=== PATIENT | female | born 1950 | race Caucasian/White ===

== ENCOUNTER 2022-05-11 18:21 | Observation (INO) | payer MEDICARE, SELFPAY ==
[2022-05-11] VITALS (10 sets, daily range): BP systolic 138–175; BP diastolic 58–77; PULSE 64–90; RESP 13–23; TEMP 36.9; O2SAT 94–98; BMI 39.4
--- NOTE | 2022-05-11 18:29 | PC.NURSE ---
[facility] Medical records has been called to retrieve patient information from [facility]
--- NOTE | 2022-05-11 18:30 | PC.NURSE ---
obtained EKG and poc glucose
--- NOTE | 2022-05-11 18:31 | ECG_ITS ---
APPROVED REPORT Exam: Resting ECG HR:68 bpm ECG Measurements Heart Rate 68 AXES ME 193 P 50 QRSd 101 QRS 66 QT 393 T 70 QTc 409 Conclusion SINUS RHYTHM NORMAL ECG UNCONFIRMED REPORT Electronically signed by : Mumtaz Colon MD 05/12/2022 09:07:44
--- NOTE | 2022-05-11 18:31 | XR_ITS ---
PROCEDURE INFORMATION: Exam: XR Chest Exam date and time: 05/11/2022 6:47 PM Age: 71 years old Clinical indication: Pain; Other: Left sided numbness/n/v; Additional info: Lt side numbness TECHNIQUE: Imaging protocol: Radiologic exam of the chest. Views: 1 view. Portable AP upright exam 6:48 p.m. COMPARISON: No relevant prior studies available. FINDINGS: Tubes, catheters and devices: Overlying director of claims electrodes. Lungs: No acute pulmonary findings. No pulmonary consolidation. Lung volumes within normal limits. Suspect calcified bilateral perihilar granulomas, but these could be prominent dense vascular shadows. Pulmonary vessels do not appear significantly congested. Pleural spaces: Unremarkable. No significant pleural effusion. No pneumothorax. Heart/Mediastinum: Slightly enlarged cardiac silhouette, accentuated by portable AP technique. Bones/joints: There are spinal degenerative changes, with multilevel disc narrrowing and spondylosis. Shoulder and acromioclavicular arthritis. IMPRESSION: 1. No acute cardiopulmonary findings. 2. Non emergency and chronic findings as above.
--- NOTE | 2022-05-11 18:32 | CT_ITS ---
PROCEDURE INFORMATION: Exam: CT Head Without Contrast Exam date and time: 05/11/2022 7:16 PM Age: 71 years old Clinical indication: Pain; Headache; Additional info: Lt side numbness. Prior stroke 10 years ago TECHNIQUE: Imaging protocol: Computed tomography of the head without contrast. Radiation optimization: All CT scans at this facility use at least one of these dose optimization techniques: automated exposure control; mA and/or kV adjustment per patient size (includes targeted exams where dose is matched to clinical indication); or iterative reconstruction. COMPARISON: No relevant prior studies available. FINDINGS: Brain: A large chronic left MCA territory infarct involving temporal and parietal cortex and adjacent white matter with cystic encephalomalacia changes. No acute intracranial findings. No intracranial hemorrhage. No edema, swelling or mass-effect. Mild generalized cerebral cortical atrophy/volume loss. Cerebral ventricles: The ventricles are normal for age. No hydrocephalus. Minimal compensatory dilatation of the trigone of the left lateral ventricle due to the left cerebral infarct. Paranasal sinuses: No acute findings in the visualized sinuses. No significant sinus opacification or air-fluid levels. Minimal bilateral ethmoid and left maxillary mucosal thickening. Mastoid air cells: Mastoids are unremarkable as visualized, no effusions. Orbital cavities: No acute findings in the visualized orbits. Correlate for history of bilateral lens replacement surgeries. Bones/joints: No acute skull fracture. No lytic lesions. Prominent hyperostosis frontalis interna, a normal variant. Soft tissues: There are no soft tissue masses or fluid collections. Vasculature: There are atherosclerotic calcified plaques in the intracranial carotid and vertebral arteries. IMPRESSION: 1. No acute findings. 2. 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 3. There is no CT evidence of intracranial mass, intracranial hemorrhage, or acute infarct. 4. Additional nonemergency and chronic findings as above.
[2022-05-11 18:34] LABS: POC Glucose,Bedside 184 (70-110)
[2022-05-11 19:02] LABS: Basophils # 0.1 K/mm3 (0-0.2); Basophils % 1.1 % (0.1-2.0); Eosinophils # 0.1 K/mm3 (0.0-0.4); Eosinophils % 0.9 % (0.1-12.0); Hemoglobin 12.9 g/dL (12.2-16.2); Lymphocytes # 2.3 K/mm3 (0.7-4.5); Lymphocytes % 28.7 % (10-50); Mean Corpuscular HGB Conc 31.4 g/dL (31.8-35.4); Mean Corpuscular Hemoglobin 28.7 pg (27.0-31.2); Mean Corpuscular Volume 91.3 fl (81-99); Mean Platelet Volume 7.7 fl (7.4-10.4); Monocytes # 0.4 K/mm3 (0.1-1.0); Monocytes % 4.6 % (1.7-9.3); Neutrophils # 5.1 K/mm3 (1.8-7.8); Neutrophils % 64.8 % (37.0-80.0); Platelet Count 363 K/mm3 (142-424); Red Blood Count 4.49 M/mm3 (4.20-5.40); Red Cell Distribution Width 14.3 % (11.5-17.5); White Blood Count 7.9 K/mm3 (4.8-10.8)
--- NOTE | 2022-05-11 19:07 | CT_ITS ---
PROCEDURE INFORMATION: Exam: CTA Neck With Contrast Exam date and time: 05/11/2022 7:16 PM Age: 71 years old Clinical indication: Pain; Headache; Additional info: Lt side numbness. Prior stroke 10 years ago TECHNIQUE: Imaging protocol: Computed tomographic angiography of the neck with contrast. 3D rendering (Not supervised by radiologist): MIP and/or 3D reconstructed images were created by the technologist. Radiation optimization: All CT scans at this facility use at least one of these dose optimization techniques: automated exposure control; mA and/or kV adjustment per patient size (includes targeted exams where dose is matched to clinical indication); or iterative reconstruction. Contrast material: ISOVUE 370; Contrast volume: 100 ml; Contrast route: INTRAVENOUS (IV); COMPARISON: CR XR CHEST PORTABLE 05/11/2022 6:47 PM FINDINGS: Right common carotid artery: Dense calcified plaques in the carotid bulb, but narrowing of the bulb less than 50% by NASCET criteria. No dissection or occlusion. Right internal carotid artery: Moderate stenosis at the origin of the right internal carotid artery estimated 55-65%. No dissection or occlusion. Right external carotid artery: No occlusion . Moderately severe stenosis at the origin estimated 65-75%. Left common carotid artery: Very mild narrowing of the distal common carotid artery less than 50%. No dissection or occlusion. Left internal carotid artery: Short segment occlusion approximately 4-5 mm length just beyond the origin of the left internal carotid artery. Distal to this, there is patency/reconstitution with diffusely narrowed vessel/severe stenosis and trickle flow to the level of the skull base. Left external carotid artery: No occlusion or stenosis of the origin. Right vertebral artery: Large dominant right vertebral artery. No stenosis. No dissection or occlusion. 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 No high-grade focal stenosis. No dissection or occlusion. Thyroid: Heterogeneous thyroid with some calcifications and hypoattenuating nodules up to 1.7 cm series 3, image 33. Soft tissues: There are no soft tissue masses or fluid collections. Bones/joints: No acute fracture. Cervical spine degenerative changes, multilevel disc disease and spondylosis. Lungs: Calcified left pulmonary granuloma. Mild ground-glass opacities in the posterior lung apices, likely dependent atelectasis. No focal consolidation. IMPRESSION: 1. On the left, short segment occlusion of the proximal internal carotid artery, with reconstitution and trickle flow beyond this to the level of the head, diffuse severe ICA stenosis. There is mild narrowing of the common carotid artery. 2. On the right, mild stenosis of the carotid bulb, moderate stenosis of the origin of the right internal carotid artery, and moderately severe stenosis at the origin of the external carotid artery as detailed above. 3. Large dominant right vertebral artery is widely patent. 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 4. Heterogeneous thyroid with nodules up to 1.7 cm, and calcifications. Follow-up non-emergent thyroid ultrasound is recommended. COMMENTS: Consistent with the [employer]'s Incidental Findings Committee white paper (J Am Tamia Radiol 2015): In patients aged 35 years and older with an incidental thyroid nodule equal to or greater than 1.[address], MRI or extrathyroidal US, further evaluation with dedicated thyroid US is recommended for patients with no
--- NOTE | 2022-05-11 19:07 | CT_ITS ---
PROCEDURE INFORMATION: Exam: CTA Head With Contrast, Arteriography Exam date and time: 05/11/2022 7:16 PM Age: 71 years old Clinical indication: Pain; Headache; Additional info: Lt side numbness. Prior stroke 10 years ago TECHNIQUE: Imaging protocol: Computed tomographic angiography of the head with contrast. Exam focused on the arteries. 3D rendering (Not supervised by radiologist): MIP and/or 3D reconstructed images were created by the technologist. Radiation optimization: All CT scans at this facility use at least one of these dose optimization techniques: automated exposure control; mA and/or kV adjustment per patient size (includes targeted exams where dose is matched to clinical indication); or iterative reconstruction. Contrast material: ISOVUE 370; Contrast volume: 100 ml; Contrast route: INTRAVENOUS (IV); COMPARISON: No relevant prior studies available. FINDINGS: ANTERIOR CIRCULATION: Right internal carotid artery: Small calcified plaques in the internal carotid artery siphon. Very mild narrowing less than 50%. Intracranial segment is patent with no high-grade stenosis. No aneurysm. Right middle cerebral artery: There is mild narrowing of the proximal M1 segment less than 50% series 3 images 103, coronal series 5 images 54-55. No occlusion or high-grade stenosis. No aneurysm. Right anterior cerebral artery: No acute findings. No occlusion or significant stenosis. No aneurysm. 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 Left internal carotid artery: Diffusely narrowed left internal carotid artery from the skull base to the siphon, trickle flow/severe stenosis through petrous segments and proximal siphon, mild to moderate narrowing at the distal siphon. No occlusion in the head. No aneurysm. Left middle cerebral artery: Unremarkable M1 and M2 segments. No occlusion or significant stenosis. No aneurysm. Diminished peripheral enhancement in the area of a chronic left temporal-parietal infarct. Left anterior cerebral artery: A diffusely small A1 segment, which may be developmental hypoplasia or chronic long segment stenosis. 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 No occlusion or focal high-grade stenosis. No aneurysm. POSTERIOR CIRCULATION: Right vertebral artery: Large dominant right vertebral artery. No occlusion or significant stenosis. No aneurysm. Left vertebral artery: Small left vertebral artery, likely developmentally hypoplastic. No occlusion or significant focal stenosis. No aneurysm. Basilar artery: Unremarkable. No occlusion or significant stenosis. No aneurysm. Right posterior cerebral artery: Unremarkable. No occlusion or significant stenosis. No aneurysm. Left posterior cerebral artery: Unremarkable. No occlusion or significant stenosis. No aneurysm. Brain: No definite mass, mass effect, or midline shift. Large chronic left temporo parietal MCA territory infarct with encephalomalacia, see the earlier head CT report. Cerebral ventricles: No significant ventriculomegaly. Minimal compensatory dilatation of the left lateral ventricle. Bones/joints: Hyperostosis frontalis interna a normal variant. No acute fracture. Soft tissues: Unremarkable.
[2022-05-11 19:09] LABS: Alanine Aminotransferase 25 U/L (12-78); Albumin/Globulin Ratio 1.4 (1.1-1.8); Alkaline Phosphatase 76 U/L (38-126); Anion Gap 9.1 mEq/L (5-15); Aspartate Amino Transferase 40 U/L (14-36); Blood Urea Nitrogen 21 mg/dl (7-17); Calcium 9.7 mg/dl (8.4-10.2); Carbon Dioxide 29 mmol/L (22.0-30.0); Chloride 105 mmol/L (98-107); Creatinine Clearance Estimated 84 mL/min (50-200); Estimated Glomerular Filt Rate 62 ml/min (>60); GFR (African American) 74 ML/MIN (>60); Globulin 2.9 g/dL (1.3-3.2); Glucose 184 mg/dl (74-100); Potassium 4.1 mmoL/L (3.5-5.1); Sodium 139 mmol/L (136-145); Total Protein,Serum 6.9 g/dl (6.3-8.2)
[2022-05-11 19:11] LABS: Bilirubin,Total < 0.1 mg/dl (0.2-1.3)
[2022-05-11 19:24] LABS: Troponin I < 0.01 ng/ml (0.00-0.034)
--- NOTE | 2022-05-11 20:55 | HMH.EDGENADL ---
ED Disposition Clinical Impression: Numbness and tingling of left leg Disposition: Admitted as Observation Condition on Discharge: Fair - Critical Care Critical Care Time: No Attestation: On 05/11/22, the high probability of a clinically significant, sudden or life threatening deterioration of the following system(s) required my full and direct attention, intervention and personal management. The time I documented below is in addition to time spent performing reported procedures but includes the following listed in this critical care notation. Medical Decision Making - Medical Records Medical records reviewed: Yes: I reviewed the patient's medical records. - Theo Inquiry Pt receiving controlled substance: No Vital Signs: 05/11/22 18:24 05/11/22 20:10 05/11/22 20:15 Temperature 98.4 F Temperature Source Oral Pulse Rate 83 78 Pulse Rate [Radial] 77 Respiratory Rate 16 16 Blood Pressure 148/58 H 141/65 H Blood Pressure [Right Arm] 162/63 H Blood Pressure Mean 88 Blood Pressure Mean [Right Arm] 96 Blood Pressure Source Automatic Cuff Blood Pressure Position Supine Blood Pressure Position [Right Arm] Sitting 02 Sat by Pulse Oximetry 98 94 L 98 Oxygen Delivery Method Room Air Room Air Room Air 05/11/22 20:30 05/11/22 21:15 05/11/22 21:30 Temperature Temperature Source Pulse Rate 76 89 64 Pulse Rate [Radial] Respiratory Rate 19 21 Blood Pressure 141/64 H 175/77 H 170/68 H Blood Pressure [Right Arm] Blood Pressure Mean 91 Blood Pressure Mean [Right Arm] Blood Pressure Source Automatic Cuff Blood Pressure Position Sitting Blood Pressure Position [Right Arm] 02 Sat by Pulse Oximetry 95 97 94 L Oxygen Delivery Method Room Air 05/11/22 22:00 05/11/22 22:30 05/11/22 23:00 Temperature Temperature Source Pulse Rate 76 65 68 Pulse Rate [Radial] Respiratory Rate 23 13 17 Blood Pressure 140/62 138/60 Blood Pressure [Right Arm] Blood Pressure Mean Blood Pressure Mean [Right Arm] Blood Pressure Source Blood Pressure Position Blood Pressure Position [Right Arm] 02 Sat by Pulse Oximetry 95 96 98 Oxygen Delivery Method Room Air Room Air Room Air 05/11/22 23:30 05/12/22 00:00 05/12/22 00:30 Temperature Temperature Source Pulse Rate 72 72 64 Pulse Rate [Radial] Respiratory Rate 19 23 12 Blood Pressure 160/65 H 169/69 H 168/67 H Blood Pressure [Right Arm] Blood Pressure Mean Blood Pressure Mean [Right Arm] Blood Pressure Source Blood Pressure Position Blood Pressure Position [Right Arm] 02 Sat by Pulse Oximetry 97 95 96 Oxygen Delivery Method Room Air Room Air Room Air - Lab Data Lab results reviewed: Yes: I reviewed the patient's lab results. Lab Results 05/11/22 18:26: POC Glucose 184 H 05/11/22 18:50: WBC 7.9, RBC 4.49, Hgb 12.9, Hct 41.0, MCV 91.3, MCH 28.7, MCHC 31.4 L, RDW 14.3, Plt Count 363, MPV 7.7, Neut % (Auto) 64.8, Lymph % (Auto) 28.7, Cowley % (Auto) 4.6, Eos % (Auto) 0.9, Baso % (Auto) 1.1, Neut # (Auto) 5.1, Lymph # (Auto) 2.3, Cowley # (Auto) 0.4, Eos # (Auto) 0.1, Baso # (Auto) 0.1 05/11/22 18:50: Sodium 139, Potassium 4.1, Chloride 105, Carbon Dioxide 29, Anion Gap 9.1, BUN 21 H, Creatinine 0.90, Estimated Creat Clear 84, Estimated GFR 62, Est GFR ( Amer) 74, Glucose 184 H, Calcium 9.7, Total Bilirubin < 0.1 L, AST 40 H, ALT 25, Alkaline Phosphatase 76, Troponin I < 0.01, Total Protein 6.9, Albumin 4.0, Globulin 2.9, Albumin/Globulin Ratio 1.4 05/11/22 22:00: Troponin I < 0.01 Result diagrams: 05/11/22 18:50 05/11/22 18:50 Orders (Tests/Meds): ED MEDICATIONS Generic Name Dose Route Start Last Admin Trade Name Freq PRN Reason Stop Dose Admin Acetaminophen 650 mg 05/12/22 00:47 Acetaminophen 325mg Tab PO 06/11/22 00:30 Q4HP PRN Fever or Mild Pain Hydrocodone Bitart/Acetaminophen 1 tab 05/12/22 09:00 Hydrocodone 10mg/Apap 325mg Tab PO
--- NOTE | 2022-05-11 21:05 | PC.NURSE ---
PATIENT ASSISTED BACK TO BED. C/O THAT B/P CUFF WAS TO TIGHT AND HURTING HER ARM. PATIENT REMOVED CUFF.
--- NOTE | 2022-05-11 21:07 | PC.NURSE ---
PATIENT ASSISTED TO BEDSIDE COMMODE. GAIT UNSTEADY. AT BEDSIDE.
--- NOTE | 2022-05-11 21:20 | PC.NURSE ---
PATIENT YELLING OUT CRYING ABOUT BP NOT TAKING, WORRIED THAT BLOOD PRESSURE WAS HIGH. CUFF CHANGED AND APPLIED TO LEFT LOWER ARM. PATIENT REPORTS THAT SHE KNEW ER WAS BUSY BUT SHE WAS A PATIENT ALSO.
--- NOTE | 2022-05-11 21:28 | PC.NURSE ---
PATIENT RINGING CALL QIU REQUESTED WASHCLOTH TO WASH HANDS.
--- NOTE | 2022-05-11 22:01 | PC.NURSE ---
repeat troponin drawn and sent to lab by London Du RN
--- NOTE | 2022-05-11 22:03 | PC.NURSE ---
SECOND TROP DRAWN FROM LEFT FOREARM. CUP OF ICE GIVEN.
[2022-05-11 22:31] LABS: Troponin I < 0.01 ng/ml (0.00-0.034)
--- NOTE | 2022-05-11 22:47 | PC.NURSE ---
PATIENT ASSISTED TO BSC PER Rob DELGADO AND Abiodun EAST.
--- NOTE | 2022-05-11 22:49 | PC.NURSE ---
Patient assisted to bedside commode and assisted back to bed.
[2022-05-12] VITALS: BP 169/69; PULSE 72; RESP 23; O2SAT 95
--- NOTE | 2022-05-12 00:25 | PC.NURSE ---
Dr. Monterroso paged re: admission
--- NOTE | 2022-05-12 00:29 | PC.NURSE ---
PATIENT ADMITTED TO [address] JENNIFER FRANCE WITH DX OF LEFT LOWER EXTREMITY WEAKNESS, GAIT INSTABILITY.
[2022-05-12 00:30] VITALS: BP 168/67; PULSE 64; RESP 12; O2SAT 96
--- NOTE | 2022-05-12 01:08 | PC.NURSE ---
patient up to floor via wheelchair @ this time.
[2022-05-12 01:16] VITALS: BP 165/67; PULSE 64; RESP 18; TEMP 36.8; O2SAT 99
[2022-05-12 01:23] VITALS: BP 178/82; PULSE 63; RESP 20; TEMP 36.7; O2SAT 98; BMI 41.0
[2022-05-12 01:36] LABS: Coronavirus 19, PCR Not Detected (NotDetected); Influenza A, PCR Not Detected (NotDetected); Influenza B, PCR Not Detected (NotDetected)
[2022-05-12 04:00] VITALS: BP 158/71; PULSE 74; RESP 20; TEMP 36.5; O2SAT 96
--- NOTE | 2022-05-12 04:48 | PC.NURSE ---
Pt rested intermittently t/o shift. Pt is A/O x3. Lungs are CTA. x2 assist for transfer to BS and pt tolerates well. Pt reports weakness to left side, on assessment float remover strength remains equal on both sides, and strength in legs remains equal. Pt reported pain in head/neck, administered meds per MAR. Pt has scattered bruising on right arm, pt states it was from [facility] starting IV's friday night. Bed alarm on for safety.
[2022-05-12 04:56] VITALS: BMI 41.1
[2022-05-12 08:00] VITALS: BP 107/60; PULSE 65; RESP 20; TEMP 36.9; O2SAT 96
--- NOTE | 2022-05-12 08:48 | HMH.HPDC ---
General - General Admission date:: 05/12/22 Discharge date: 05/12/22 *Admission Date: 05/11/22 *Chief complaint: Nonambulatory status and left side tingling *History of present illness: General Adult HPI - General Chief complaint: Nausea/Vomiting/Diarrhea Stated complaint: headache Time Seen by Provider: 05/11/22 20:00 Mode of Arrival: Family Vehicle Limitations: No Limitations Description of Symptoms (Recalled from ER Triage Doc. by RN): to ed per pvt car with c/o lt side numbness from my neck down to my foot c/o nausea, vomiting. pt states seen yesterday at [facility] due to lt side jerking was d/mariely home and once home started with lt arm numbness and is progressively getting worse. pt denies weakness, slurred speech, no facial droop noted. pt keeps saying my can tell you everything, I wish he would have told you everything. I can't believe he didn't tell you this . pt needed assist of 2 to help get her onto stretcher from wheelchair. - History of Present Illness HPI narrative: Patient is a 71-year-old female with a past medical history of left-sided CVA. She reports that yesterday she was seen at [facility] for shaking of her left side. She says that she was subsequently discharged and following that she went home and felt okay for little while until she started to get numbness in her entire left side. She says that it is from her head all the way down the bottom of her foot. She is also says that she has had difficulty ambulating since then. She denies any weakness but just says that she feels like she cannot feel the bottom of her foot. She is also been a little nauseous and had vomited a couple times. She normally uses a Rollator to get around but is needing assistance even with a walker. She denies any dysarthria. In review this is a 71-year-old female who presents with numbness. Hemodynamically stable and nontoxic-appearing. Initial NIH is 1 for numbness otherwise her neuro exam is only remarkable for proprioceptive changes in both of her lower extremities. Due to her symptoms and history likely needs imaging in order to evaluate for any intracranial changes. Her laboratory studies were largely unremarkable with no findings for the cause of her symptoms. Her CT scans showed stable left-sided encephalomalacia which does not explain her symptoms. Her CTAs of her head and neck show diffuse stenosis as well as a occlusion of the ICA which was already known about. I wonder if some of her symptoms are possibly dehydration mediated with her stenosis and could be exacerbating some previous areas of ischemia. She does have follow-up with both her PCP and her neurology team but when I ambulate the patient she is very unsteady on her feet and I wonder if she is can be high risk going home with an inability to really walk and is a high fall risk. With her proprioceptive changes likely needs PT OT as well. Talk to the hospital team who agreed to take her into the hospital for further evaluation. Above note per ER physician. Patient was admitted to observation and I evaluated her in the hospital this morning. [facility] History I have reviewed the patient's past medical history: Yes Medical History: Reports:: Anxiety, Diabetes Mellitus Type 2, Hyperlipidemia, Hypertension Denies:: Cancer, Diabetes Mellitus Type 1, MRSA *Have you ever received a pneumonia vaccine?: Yes *Have you received a flu vaccine this season?: No Other Medical History: Reports: Arthritis Comment:: Chronic lumbar pain, chronic opiate therapy, follows with pain clinic in [place] Laterality Cases: Left: Total Hip Replacement, Bilateral: Arthroscopy Shoulder, Tonsillectomy Other Surgeries: Yes: Appendectomy, Cholecystectomy, Colonoscopy, EGD Amputation: No Fractures: No - *Social History Smoking Status: Former smoker Alcohol Intake: never *Occupational Status:: retired Housing: house Household Members: spouse *Travel in the last 8 weeks: None Family Hx:: N
[2022-05-12 09:07] LABS: Magnesium 1.9 mg/dl (1.6-2.3)
--- NOTE | 2022-05-12 09:31 | HMH.PHAINT ---
PER NASRIN CARRASQUILLO RN, DR FRANCE VERBALIZED TO HER THAT ALL HOME MEDS ARE TO BE CONTINUED IS, NOTHING NEW WILL BE PRESCRIBED OR CHANGED.
[2022-05-12 09:38] LABS: Thyroid Stimulating Hormone 0.84 uIU/mL (0.465-4.68)
--- NOTE | 2022-05-12 14:32 | PC.NURSE ---
patient discharged late waiting to be picked-up
--- NOTE | 2022-05-13 15:39 | CARE MANAGER ---
Spoke with patient's . He states the patient is about the same. She has an appointment in the morning with Dr. Colon. They deny questions or concerns.
== END 2022-05-12 12:12 | disposition home or self-care (01) ==
LOC: ER 18:29 → 2ND 05-12 01:58
PROVIDERS: Student in an Organized Health Care Education/Training Program; Admitting Provider Family Medicine; Emergency Provider Emergency Medicine; PCP Internal Medicine Adolescent Medicine; Visit Provider Internal Medicine Adolescent Medicine
DX: R26.81 Unsteadiness on feet (principal); E11.9 Type 2 diabetes mellitus without complications; Z79.4 Long term (current) use of insulin; Z79.02 Long term (current) use of antithrombotics/antiplatelets; I10 Essential (primary) hypertension; E78.5 Hyperlipidemia, unspecified; Z87.891 Personal history of nicotine dependence; Z20.822 Contact with and (suspected) exposure to COVID-19; I69.354 Hemiplegia and hemiparesis following cerebral infarction affecting left non-dominant side; I65.23 Occlusion and stenosis of bilateral carotid arteries
CPT/HCPCS: G0378; 70450; 70496; 70498; 71045; 80053; 82962; 83735; 84443; 84484; 85025; 93005; 99285; C9803; J2405; Q9967; U0003; U0005

== ENCOUNTER → 2022-08-07 15:02 | Outpatient (CLI) | payer MEDICARE, SELFPAY | PROVIDERS: PCP Internal Medicine Adolescent Medicine; Visit Provider Internal Medicine Adolescent Medicine | DX: G47.30 Sleep apnea, unspecified (principal); I10 Essential (primary) hypertension; R06.83 Snoring; E66.9 Obesity, unspecified | CPT/HCPCS: G0399 ==

== ENCOUNTER → 2023-07-16 16:47 | Outpatient (CLI) | payer MEDICARE, SELFPAY ==
[2023-07-16 17:29] LABS: Basophils # 0.1 K/mm3 (0-0.2); Basophils % 0.6 % (0.1-2.0); Eosinophils # 0.2 K/mm3 (0.0-0.4); Eosinophils % 1.6 % (0.1-12.0); Hematocrit 38.3 % (37.0-47.0); Hemoglobin 12.7 g/dL (12.2-16.2); Lymphocytes % 32.1 % (10-50); Mean Corpuscular HGB Conc 33.3 g/dL (31.8-35.4); Mean Corpuscular Hemoglobin 30.5 pg (27.0-31.2); Mean Corpuscular Volume 91.6 fl (81-99); Mean Platelet Volume 7.8 fl (7.4-10.4); Monocytes # 0.6 K/mm3 (0.1-1.0); Monocytes % 6.2 % (1.7-9.3); Neutrophils # 5.6 K/mm3 (1.8-7.8); Neutrophils % 59.5 % (37.0-80.0); Platelet Count 339 K/mm3 (142-424); Red Blood Count 4.18 M/mm3 (4.20-5.40); Red Cell Distribution Width 14.1 % (11.5-17.5); White Blood Count 9.4 K/mm3 (4.8-10.8)
[2023-07-16 18:24] LABS: Anion Gap 15.6 mEq/L (5-15); Blood Urea Nitrogen 31 mg/dl (7-17); Calcium 9.7 mg/dl (8.4-10.2); Carbon Dioxide 28 mmol/L (22.0-30.0); Chloride 100 mmol/L (98-107); Estimated Glomerular Filt Rate 32 ml/min (>60); GFR (African American) 38 ML/MIN (>60); Glucose 334 mg/dl (74-100); Potassium 5.6 mmoL/L (3.5-5.1); Sodium 138 mmol/L (136-145)
== END ==
PROVIDERS: PCP Internal Medicine Adolescent Medicine; Visit Provider Internal Medicine Adolescent Medicine
DX: E78.5 Hyperlipidemia, unspecified (principal)
CPT/HCPCS: 80048; 85025

== ENCOUNTER 2025-07-29 11:49 | Outpatient (CLI) | payer MEDICARE, SELFPAY ==
--- OUTSIDE RECORDS SUMMARY | 2025-07-29 11:51 | XMS_ITS | Encounter Summary ---
Author Organization [employer] ([place], [place], [place], [place]) Address [address] [place] [address] Care Team Providers Care Community Health Education Coordinator Name Role Phone Unavailable Primary Care Provider Unavailabl e Encounter Details Date Type Department Care Team (Late st Contact Info) Description 07/21/2019 Transcribed Document [facility] [place] [address] [place] [address] ProviderChano MD [address], [place] [id number] Social History Tobacco Use Types Packs/Day Years Used Date Smoking Tobacco: Never Assessed Comments Unknown Sex and Gender Information Value Date Recorded Sex Assigned at Not on file Legal Sex Female 2:07 PM CDT Gender Identity Not on file Sexual Orientation Not on file documented as of this encounter Miscellaneous Notes * Cerner Conversion Note - Chano Gatica MD - 07/21/2019 1:54 PM CDT Patient: LUDY ANTONIO Age: 68 years Sex: Female : 1950 Associated Diagnoses: None Author: TAIWO JAMA MD-INF ID Consultation/Initial Hospital Visit Referring MD: Sharif Dejesus MD Evaluating MD: Taiwo Jama MD Date of admission: 07/08/2019 Date of consultation: 07/09/2019 Reason for consultation: Discitis Chief complaint: Back pain Current antimicrobial therapy: Ancef 2 g IV HPI: Miss Ludy Antonio is a 68-year-old female being seen for back pain. She is a past medical history significant for hypertension, diabetes mellitus type 2, obesity, dyslipidemia, history of CVA and completely occluded left carotid currently on Plavix. She has had a recent back surgery with Dr. Lucas who she has visited with this past Friday. Back pain has been progressively worsening despite the use of oxycodone that she takes every day. She states the pain is on the right side in the lower back region. She also endorses increasing incontinence but this symptom was present prior to her back surgery. She denies any headaches, fevers or chills as well as denying diarrhea or vomiting. Since admission patient has been afebrile with some hypertension noted. BUN/creatinine are 19 and 1.1, GFR is 49, white blood cell count is 7.9 with a neutrophil of 49.2%, platelet count 267. UA is positive for leukocytes, 5-10 white blood cells, and 10 squamous cells 2-5 transitional epithelial cells. Urine culture was positive for 10???[id number] CFU/mL. CT of the L-spine was negative. No listed allergies to antibiotics. She is currently receiving Ancef 2 g IV therapy and ID has been counseled for further evaluation and treatment as well as antimicrobial therapy management. seen and agree no Hx at this point as in RR 07/10/19 - co fever I want to go home, why am I here ? denies fever or confusion. ROS and hx discussed with [id number], has had ceofusion and fever last 2 weeks. 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 They note she seems better on antibiotics 07/13 - hx limited ROS and status discussed with multiple family members 07/14 - co Hx and ROS not avaialbe discussed with staff in room 07/15 - Nohx avaialble Events discussed with family no fever or rash 07/20 - co weakness I want to go home no fever or rash Hx suspect 07/21 - NoHx avaialble Family notes she is no better Allergies:Allergies (1) Active Reaction Avandia CHF Medications:Medications by Classification Anticoagulant enoxaparin (Lovenox) - 40 mg, SubCutaneous, Inj, Daily, Routine Cardiovascular metoprolol (metoprolol tartrate) - 12.5 mg, Oral, Tab, BID, Routine lisinopril - 20 mg, Oral, Tab, At Bedtime, Routine Respiratory albuterol-ipratropium (DuoNeb 0.5 mg-2.5 mg/3 mL inhalation - 3 mL, Nebulized Inhalation, Inh, RT_Q6H, PRN for Shortness of Breath, Routine loratadine - 10 mg, Oral, Tab, At Bedtime, Routine GI ondansetron (Zofran) - 4 mg, IV Push, Inj, Q4H, PRN for Nausea, Routine famotidine - 20 mg, Oral, Tab, BID, Routine polyethylene glycol 3350 (MiraLax) - 17 Gram, Oral, Powder, Daily, PRN for Constipation, Routine Endocrine insulin glargine (Lantus) - 25 Units, SubCutaneous, Inj, BID, Routine insulin lispro - 8 Units, SubCutaneous, Inj, TID With Meals, Routine insulin lispro (insulin lispro sliding scale) - Scale D, SubCutaneous, Inj, AC and at Bedtime, Routine Neuro divalproex sodium (Depakote) - 250 mg, Oral, EC Tab, BID, Routine gabapentin - 300 mg, Oral, Cap, QPM, Routine Psych DULoxetine (Cymbalta) - 60 mg, Oral, Cap, At Bedtime, Routine QUEtiapine (SEROquel) - 6.25 mg, Oral, Tab, BID, Routine haloperidol (Haldol) - 2 mg, IV Push, Inj, Q8H, PRN for Agitation, Routine HEENT fluticasone nasal (Flonase) - 1 Puff, Nasal, [place], Daily, Routine miconazole topical (Desenex AF 2% topical powder) - 1 Application, Topical, Powder, Q12H Pain Meds morphine - 2 mg, IV Push, Inj, Q2H, PRN for Pain (Severe 7-10), Routine oxyCODONE - 10 mg, Oral, Tab, Q6H, PRN for Pain (Moderate 4-6), Routine acetaminophen (Tylenol) - 650 mg, Oral, Tab, Q4H, PRN for Pain (Mild 1-3), Routine Sedatives diazePAM (Valium) - 5 mg, Oral, Tab, Q6H, PRN for Spasms, Routine Topical lidocaine topical (Lidoderm 5% topical film) - 3 Patch, TransDermal, Patch, Daily, Routine Undefined Medications Magic Mouthwash - 5 mL, Oral, Liquid, Q6H, Routine Past Medical History: Active Problems (24) Acid reflux Allergic asthma Arthritis At risk for sleep apnea Back pain BP+ - Hypertension Cataract///beginning stage Chest pain///cath negative Colon polyps Completely occulded L carotid Congestive heart failure - due to Avandia resolved DM - Diabetes mellitus Dyslipidemia Fibromyalgia H/O ischemic left MCA stroke Hiatal hernia Lumbar disc disease Memory deficit///slow recall Numbness and tingling//right leg Obesity Pain//chronic Right leg pain Sleep apnea///risk Wears glasses Past Surgical History: Left hip replacement, right and left shoulder repair, Achilles repair, appendectomy, cholecystectomy, tonsillectomy, microdiscectomy as outlined above, cardiac catheterization in 2013. Family History: Reviewed, noncontributory. Social History: Denies EtOH and illicit drug use Prior smoker Is retired lives with spouse at home Review of Systems: not available 12 systems - see above Physical Examination: Vitals Signs (last 24 hrs) Last Charted Minimum Maximum Temp 97.5 (JUL 21 05:43) 97.5 (JUL 21 05:43) 98 (JUL 20:) Apical HR 61 (JUL 21 10:17) 61 (JUL 21 10:17) 75 (JUL 20 22:36) Mon HR 61 (JUL 21 05:43) 61 (JUL 21 05:43) 81 (JUL 20 18:34) Resp Rate 14 (JUL 21 05:00) 14 (JUL 21 05:00) 17 (JUL 20 16:) SBP 125 (JUL 21 05:43) 109 (JUL 20 16:19) 125 (JUL 21 05:43) DBP L 47 (JUL 21 05:43) L 44 (JUL 20:) 60 (JUL 20 18:34) MAP 89 (JUL 21 05:43) 57 (JUL 20 16:19) 89 (JUL 21 05:43) SpO2 100 (JUL 20 21:33) 98 (JUL 20:) 100 (JUL 20 18:34) Exam: Gen: Alert, cooperative, less confused HEENT: sclera OK NECK: Supple, no masses LYMPH: No cervical lymph nodes RESP: CTA bilaterally without rhonchi, rales, or wheezes. Nonlabored breathing CV: RRR, no murmurs, gallops, or rubs. No edema GI: soft, nontender, nondistended, : No garcia in place MS: no rash SKIN: No lesions NEURO: less interactive PSYCH: anxious Labs:Labs (Last four charted values) WBC 8.4 (OCT 16) 7.2 (OCT 13) 8.4 (OCT 07) 8.2 (OCT 06) HB 11.6 (OCT 16) 11.3 (OCT 13) 11.5 (OCT 07) 11.5 (OCT 06) HCT 37.0 (OCT 16) 35.4 (OCT 13) 35.7 (OCT 07) 35.6 (OCT 06) Plt 273 (OCT 16) 277 (OCT 13) 263 (OCT 07) 230 (OCT 06) Na 141 (OCT 16) 143 (OCT 13) 142 (OCT 07) 140 (OCT 06) K 3.7 (OCT 16) 4.1 (OCT 13) 3.8 (OCT 07) 4.2 (OCT 06) Cl 107 (OCT 16) 106 (OCT 13) 104 (OCT 07) 104 (OCT 06) CO2 29 (OCT 16) 30 (OCT 13) 31 (JUL 07) 31 (JUL 06) BUN H 27 (JUL 16) H 23 (JUL 13) 14 (OCT 07) 14 (OCT 06) Cr 1.00 (OCT 16) 1.00 (OCT 13) 0.90 (OCT 07) 0.90 (OCT 06) Glu R H 134 (JUL 16) H 213 (JUL 13) H 202 (JUL 07) H 248 (OCT 06) Ca 9.1 (OCT 16) 9.4 (OCT 13) 9.0 (OCT 07) 9.0 (OCT 06) PT 9.9 (JUL 04) 10.1 (JUL 03) INR 0.9 (JUL 04) 0.9 (JUL 03) PTT 28.0 (JUL 03) AST 15 (OCT 16) 18 (OCT 07) 16 (OCT 04) 17 (OCT 03) ALT 24 (OCT 16) 25 (JUL 07) 23 (OCT 04) 21 (OCT 03) ALK P 56 (OCT 16) 56 (OCT 07) 69 (OCT 04) 63 (OCT 03) T Bili 0.3 (OCT 16) 0.3 (OCT 07) 0.3 (OCT 04) 0.4 (OCT 03) PTN L 6.2 (JUL 16) 6.7 (OCT 07) 7.1 (OCT 04) 7.0 (OCT 03) ALB L 2.7 (OCT 16) L 2.8 (JUL 12) L 3.1 (JUL 09) L 3.2 (JUL 08) Micro: Rad:No Radiology Results Found IMPRESSION: - Lumbar surgery 04/05/19 - Increasing back pain - elevated ESR - DM II - affects healing and immunity - Carotid occlusion - left side - on anticoagulation - acute delirium - Positive Chromium level - low (negative cobalt) watch off antibiotics Follow cultures Follow labs check some esoteric labs - sprue screen negative. cobalt negative, low positive chromium Doubt her mental status issues from infection -stop antibiotics and watch Looks about the same At some point would get Ortho opinion about the + level but doubt that's the culprit - discussed with family UM discussed with KHARI Estes labs seen Electronically signed by Julian Wheeler [employer] Truck Driver Cerner at 01/23/2023 1:39 PM CDT documented in this encounter Plan of Treatment Not on file documented as of this encounter Visit Diagnoses Not on filedocumented in this encounter
--- OUTSIDE RECORDS SUMMARY | 2025-07-29 11:51 | XMS_ITS | Encounter Summary ---
Author Organization [employer] ([place], [place], [place], [place]) Address [address] [place] [address] Care Team Providers Care Security Professional Name Role Phone Unavailable Primary Care Provider Unavailabl e Encounter Details Date Type Department Care Team (Late st Contact Info) Description 04/06/2019 Transcribed Document [facility] [place] [facility] [place] [address] Chano Gatica MD [address], [place] [id number] Social History Tobacco Use Types Packs/Day Years Used Date Smoking Tobacco: Never Assessed Comments Unknown Sex and Gender Information Value Date Recorded Sex Assigned at Not on file Legal Sex Female 2:07 PM CDT Gender Identity Not on file Sexual Orientation Not on file documented as of this encounter Miscellaneous Notes * Cerner Conversion Note - Chano Gatica MD - 04/06/2019 8:28 AM CDT DATE OF PROCEDURE:04/05/2019 NEUROSURGERY OPERATIVE REPORT SURGEON: Thom Lucas M.D. PRODUCT SAFETY COORDINATOR: Ronel Michel PA-C. Scrubbed, present, assisted including closure of the wound. PREOPERATIVE DIAGNOSIS(ES): 1. Right lumbar radiculopathy. 2. Lumbar spondylosis and disk bulge. POSTOPERATIVE DIAGNOSIS(ES): 1. Right lumbar radiculopathy. 2. Lumbar spondylosis and disk bulge. PROCEDURE: Right L3-4 minimally invasive surgery microdiscectomy with laminotomy. ANESTHESIA: General endotracheal anesthesia. ESTIMATED BLOOD LOSS: 30 mL. COMPLICATIONS: None. BRIEF HISTORY: Ms. Savage is a 68-year-old. She suffers from chronic pain. She presented to our clinic with back pain, but also right leg symptoms. There was some nondermatomal description, but also some radicular components and sciatic-like description of the pain. An MRI showed recess stenosis on the right at L3-4. Ultimately, she has undergone multiple different conservative measures without success. We felt, based on those findings on the MRI, there was reasonable to proceed with a lumbar discectomy to alleviate the right leg symptoms or at least reduce them. We discussed the expectations of the surgery, postoperative course, risks and benefits. All questions were answered. She agreed and wanted to proceed with the operation. OPERATIVE DETAILS: The patient was intubated without incident. Flipped from the supine to the prone position onto the operating table. The pressure points were identified and padded. Lumbar spine was prepped and draped in the standard fashion. Time-out confirmed the patient and operative site. Preoperative antibiotics were given. A right paramedian incision was localized with C-arm fluoroscopy and spinal needle. Incision performed with a 15 blade knife. Continued cautery dissection through the subcu fat and lumbar fascia. The METRx dilators were docked over the inferior portion of the L3 lamina. A 7 cm x 18 mm tube was secured into place. The operative microscope was brought into the field. The periosteal dissection was completed exposing the lamina. Laminotomy was now performed with the Midas drill. The ligament was mobilized and removed. Partial removal of the medial facet was necessary for access to the recess. The thecal sac was identified. The traversing nerve root was retracted medially. An annulotomy was performed. Subannular fragments were removed within the recess and some more paracentral regions. Then a foraminotomy was performed over the L4 nerve root. The recess was thoroughly decompressed. At this point, a hook could be swept underneath the nerve root and appeared to be adequately relieved of any continuous pressure. The wound was copiously irrigated. 10 mg of Kenalog placed in the epidural space. The muscle was injected with 0.25% Marcaine. The fascia and subcuticular layers were closed separately. Steri-Strips were placed over the skin edges. Dressing was placed over the wound. Patient flipped from prone to supine position, extubated without incident, left the OR in stable condition. Thom Lucas MD Dict: 04/06/2019 08:28:36 Trans: 04/06/2019 11:43:46 CC1: Thom Lucas MD Electronically signed by Julian Wheeler Conversion Pulmonary Disease Specialist Cerner at 01/23/2023 1:28 PM CDT documented in this encounter Plan of Treatment Not on file documented as of this encounter Visit Diagnoses Not on filedocumented in this encounter
--- OUTSIDE RECORDS SUMMARY | 2025-07-29 11:51 | XMS_ITS | Encounter Summary ---
Author Organization [employer] ([place], [place], [place], [place]) Address [address] [place] [address] Care Team Providers Care Senior Stock Plan Administrator Name Role Phone Unavailable Primary Care Provider Unavailabl e Encounter Details Date Type Department Care Team (Late st Contact Info) Description 04/06/2019 Transcribed Document [facility] [place] [address] [place] [address] ProviderChano MD [address], [place] [id number] Social History Tobacco Use Types Packs/Day Years Used Date Smoking Tobacco: Never Assessed Comments Unknown Sex and Gender Information Value Date Recorded Sex Assigned at Not on file Legal Sex Female 2:07 PM CDT Gender Identity Not on file Sexual Orientation Not on file documented as of this encounter Miscellaneous Notes * Cerner Conversion Note - Chano ProviderMD - 04/06/2019 10:28 AM CDT UM Authorization Entered On: 04/06/2019 10:29 EDT Performed On: 04/06/2019 10:28 EDT by Mary Jackson Rn-Utilization Review Primary Insurance Authorization Authorization and Policy Numbers : Insurance 1 Health Plan: [employer] H[employer] Policy Number: [id number] Authorization Number: [id number] Insurance Primary Name : [employer] [id number] Authorization Fax Number-Primary : [phone] Auth/Referral Phone Number-Primary : [phone] ext [phone] Auth/Referral Contact Name-Primary : Sauol Hanks Authorized Service Begin Date-Primary : 04/05/2019 EDT Authorized Service End Date-Primary : 04/05/2019 EDT Observation Authorization Nbr-Primary : [id number] Historical Authorization Comments-Primary : Comment 1: per [employer] O[employer] auth# [id number] (ROSEY SANTILLAN, Manufacturers Service Representative 04/06/2019 09:49) Mary Jackson Rn-Utilization Review - 04/06/2019 10:28 EDT Electronically signed by [facility] Conversion Human Resources Coordinator Cerner at 01/23/2023 1:14 PM CDT documented in this encounter Plan of Treatment Not on file documented as of this encounter Visit Diagnoses Not on filedocumented in this encounter
--- OUTSIDE RECORDS SUMMARY | 2025-07-29 11:51 | XMS_ITS | Encounter Summary ---
Author Organization [employer] ([place], [place], [place], [place]) Address [address] [place] [address] Care Team Providers Care Trip Follower Name Role Phone Unavailable Primary Care Provider Unavailabl e Encounter Details Date Type Department Care Team (Late st Contact Info) Description 07/20/2019 Transcribed Document [facility] [place] [facility] 234 beds at the [facility] [place] [address] ProviderChano MD [address], [place] [id number] Social History Tobacco Use Types Packs/Day Years Used Date Smoking Tobacco: Never Assessed Comments Unknown Sex and Gender Information Value Date Recorded Sex Assigned at Not on file Legal Sex Female 2:07 PM CDT Gender Identity Not on file Sexual Orientation Not on file documented as of this encounter Miscellaneous Notes * Cerner Conversion Note - Chano ProviderMD - 07/20/2019 10:15 AM CDT Care Management Assessment/Plan Entered On: 07/20/2019 10:19 EDT Performed On: 07/20/2019 10:15 EDT by RODOLFO TOUSSAINT ASSESSMENT CLINICIAN I Care Management Note Care Management Note : Update on the referrals for this patient. [facility] declined inpt treatment. [facility] no longer [facility] a [facility]. [facility] regarding referral. Unable to reach someone in admissions to get an update on referral. Contacted EDISON Laird regarding update on referrals. Explained her phone # to the [facility] unit was given to referrals to contact regarding dispositions. Care Management Note Report : RODOLFO TOUSSAINT ASSESSMENT CLINICIAN I - 07/19/19 15:35:04 The following hospitals have been contacted and faxed clinical information for consideration of inpt debbie psych: [facility] phone [phone] Fx:[phone] [facility]-PH:[phone] Fx: [phone] [facility]- Fx:[phone] [facility]- Fx:[phone] [facility]- Fx:[phone] [facility]- Fx:[phone] [facility]- Fx:[phone] [facility]- Fx:[phone] [facility]- Fx:[phone] [facility]- Fx:[phone] --declined pt [facility]- Documentation Status Complete : Yes RODOLFO TOUSSAINT, MANAGER LABOR DELIVERY I - 07/20/2019 10:15 EDT documented in this encounter Plan of Treatment Not on file documented as of this encounter Visit Diagnoses Not on filedocumented in this encounter
--- OUTSIDE RECORDS SUMMARY | 2025-07-29 11:51 | XMS_ITS | Encounter Summary ---
Author Organization [email or web address] ([place], [place], [place], [place]) Address [address] [place] [address] Care Team Providers Care Voice Engineer Name Role Phone Unavailable Primary Care Provider Unavailabl e Encounter Details Date Type Department Care Team (Late st Contact Info) Description 07/21/2019 Transcribed Document [facility] [place] [facility] [place] [address] Chano Gatica MD [address] [place], [place] [id number] Social History Tobacco Use Types Packs/Day Years Used Date Smoking Tobacco: Never Assessed Comments Unknown Sex and Gender Information Value Date Recorded Sex Assigned at Not on file Legal Sex Female 2:07 PM CDT Gender Identity Not on file Sexual Orientation Not on file documented as of this encounter Miscellaneous Notes * Cerner Conversion Note - Chano Gatica MD - 07/21/2019 11:34 AM CDT DATE OF DISCHARGE: PRIMARY CARE PHYSICIAN: Dr. Jordan Lopez. CONSULTATION OBTAINED: 1. Neurosurgery. 2. Infectious Disease. 3. Psychiatry consultation. 4. Physical and occupational therapy consultation. 5. Neurology consultation. PROCEDURES PERFORMED: Redo right-sided L3-L4 minimally invasive microdiskectomy by Dr. Valdes, dated 07/09/2019. PRINCIPAL DISCHARGE DIAGNOSIS: Refractory back pain requiring surgical intervention as outlined above, now seems to have improved. SECONDARY DIAGNOSIS: 1. Acute on chronic severe psychosis requiring psychiatric consultation, Depakote added with continuation of Seroquel by Dr. Valdez of Psychiatry. 2. Acute encephalopathy due to underlying psychosis, now improved. 3. Type 2 diabetes mellitus, insulin requiring. 4. Essential hypertension. 5. History of cerebrovascular accident. 6. Likely urinary tract infection. 7. Anxiety. 8. Topical yeast infection. 9. Other issues per history and physical. REASON FOR HOSPITALIZATION: The patient is a 68-year-old female, with recent back surgery by Dr. Valdes, presented with worsening back pain with psychosis and confusion like picture. The patient admitted by Dr. Dejesus, dated 07/08/2019. For detail, please see the H and P. BRIEF HOSPITAL COURSE: The patient had a urinalysis upon entry, which demonstrated modest pyuria. Subsequent urine culture failed to identify any specific organisms. Baseline labs upon entry showed near-normal complete metabolic panel with exception of modest hyperglycemia. The patient was noted to have C-reactive protein of 1.6. Complete blood count also came back normal upon entry. CPK came back mildly elevated at 246. Back imaging showed some expected findings. TSH came back within the normal range. The patient was seen and examined by neurosurgical service and taken for abovementioned surgical intervention. Postoperatively, the patient continued to suffer from back pain. Her hospital course got complicated with worsening mentation and encephalopathy which eventually prompted psychiatric consultation. The patient was seen by Dr. Ran Valdez on 07/13/2019. He recommended addition of Depakote and continuation of Seroquel. The patient received Valium in addition to opioid pain medications for ongoing pain issues. Gabapentin was subsequently added for suspected neuropathic pain. With abovementioned therapeutic interventions, the patient's clinical status gradually improved. The patient was maintained on sliding scale insulin in addition to Lantus. She did have some hyperglycemic issues which had subsequently improved. Please note I met this patient first time on July 21, 2019. Up until today, she has been cared by my partner, Dr. Horner. Please note this discharge summary comes from my review of medical records without direct encounter with the patient up until 07/21/2019. Per Case Management, the patient has been referred to rehabilitation facility. Please note the patient seems to be stable and ready for discharge. The patient also received antibiotic support by Dr. Jama of Infectious Disease, which has since been discontinued. DISCHARGE MEDICATIONS: 1. Valium 5 mg every 6 as needed. 2. Depakote 250 mg b.i.d. 3. Lovenox 40 mg subcutaneous daily. 4. Gabapentin 300 mg in the evening time. 5. Lispro insulin 8 units subcutaneous 3 times a day with meals. 6. Lidoderm patch 5% topical 2 patches daily. 7. Seroquel 25 mg 0.25 tablet oral b.i.d. 8. Vitamin D3 50,000 units on Sundays and Wednesdays. 9. Cymbalta 60 mg at bedtime. 10. Flonase 2 sprays daily. 11. Advair 250/50 one puff daily as needed. 12. Loratadine 10 mg at bedtime. 13. Multivitamin daily. 14. AcipHex 20 mg b.i.d. 15. Lantus 25 units subcutaneous b.i.d. 16. Lisinopril 20 mg at bedtime. 17. Metoprolol 12.5 mg b.i.d. 18. Oxycodone 10 mg q.6 as needed for pain. DISCHARGE AND FOLLOWUP INSTRUCTIONS: 1. Follow up with Dr. Thom Lucas on 08/11/2019. 2. Follow up with Neurology on 08/04/2019. 3. Follow up with PCP. 4. The patient was seen and examined on the day of discharge. 5. Discharge plan discussed with the patient as well as family members. FINAL DISPOSITION: Discharged to long term facility. Please note greater than 30 minutes spent on this discharge. /[id number] Abby Reid IK/AQ / SURY / MODL /[id number] CC: Dr. Jordan Lopez Electronically signed by [facility] Conversion Application Support Engineer Cerner at 01/23/2023 1:15 PM CDT documented in this encounter Plan of Treatment Not on file documented as of this encounter Visit Diagnoses Not on filedocumented in this encounter
--- OUTSIDE RECORDS SUMMARY | 2025-07-29 11:51 | XMS_ITS | Encounter Summary ---
Author Organization [employer] ([place], [place], [place], [place]) Address [address] [place] [address] Care Team Providers Care Job Press Operator Name Role Phone Unavailable Primary Care Provider Unavailabl e Encounter Details Date Type Department Care Team (Late st Contact Info) Description 04/20/2019 Transcribed Document [facility] [place] Family Medicine [address] [place] [address] ProviderChano MD [address], [place] [id number] Social History Tobacco Use Types Packs/Day Years Used Date Smoking Tobacco: Never Assessed Comments Unknown Sex and Gender Information Value Date Recorded Sex Assigned at Not on file Legal Sex Female 2:07 PM CDT Gender Identity Not on file Sexual Orientation Not on file documented as of this encounter Miscellaneous Notes * Cerner Conversion Note - Chano ProviderMD - 04/20/2019 4:29 PM CDT ED Assessment Entered On: 04/20/2019 16:52 EDT Performed On: 04/20/2019 16:49 EDT by MEME MESSER ED Quick Look Assessment Level of Consciousness : Alert, Awake Affect/Behavior : Appropriate, Calm, Cooperative Orientation : Oriented x 4 Skin Temperature : Warm Skin Description : Dry MEME MESSER - 04/20/2019 16:49 EDT ED General-Functional Assess Information Obtained From : Patient Preferred Communication Mode : Verbal Communication Barrier : None Primary Language : Martiniquais Any Spiritual/Cultural Needs or Requests : No Currently in Unsafe Situation : No MEME MESSER - 04/20/2019 16:49 EDT Social Habits Smoking Status : Former smoker, quit more than 30 days ago Smokeless Tobacco Status : Never Desires Tobacco Cessation Calc : 0 MEME MESSER 04/20/2019 16:49 EDT Social History (As Of: 04/20/2019 16:52:36 EDT) Tobacco: Use in Last 12 Months: Cigarettes. Smoking Status Former smoker. Years of Use: 1. Packs/Tins Daily: 0.5. Last Used: teenager. (Last Updated: 06/24/2013 07:28:56 EDT by MIGEL GARCIA, RN) Alcohol: Use in Last 12 Months: No. (Last Updated: 06/24/2013 07:29:08 EDT by MIGEL GARCIA, RN) Substance Abuse: Drug Use Hx: No. (Last Updated: 06/24/2013 07:29:03 EDT by MIGEL GARCIA, RN) Home/Environment: Lives with Spouse. Living situation: Home with assistance. (Last Updated: 07/17/2014 00:15:22 EDT by KATIE TRINIDAD, ED Nurse) Employment/School: Retired, Previous employment/school: [employer]. (Last Updated: 07/17/2014 00:15:13 EDT by KATIE TRINIDAD, ED Nurse) Cardiovascular ASMT, ED Cardiovascular Assessment WDL : WDL Cardiovascular Symptoms : None Heart Rhythm : Regular Nail Bed Color : Browns Chest Pain : No EKG Time Completed : 04/20/2019 16:50 EDT EKG Communicated to Provider : ADELE CRESPO MD EKG Time Communicated to Provider : 04/20/2019 16:50 EDT MEME MESSER - 04/20/2019 16:49 EDT Pulses Grid Brachial Pulse, Left : 2+ normal Brachial Pulse, Right : 2+ normal Radial Pulse, Left : 2+ normal Radial Pulse, Right : 2+ normal MEME MESSER - 04/20/2019 16:49 EDT Edema Ed Grid Edema, Periorbital Left : None Edema, Periorbital Right : None Edema, Facial : None Edema, Neck : None Edema, Upper Arm, Left : None Edema, Upper Arm, Right : None Edema, Lower Arm, Left : None Edema, Lower Arm, Right : None Edema, Hand, Left : None Edema, Hand, Right : None Edema, Sacral : None Edema, Scrotum, Left : None Edema, Scrotum, Right : None Edema, Labia, Left : None Edema, Labia, Right : None Edema, Upper Leg, Left : None Edema, Upper Leg, Right : None Edema, Knee, Left : None Edema, Knee, Right : None Edema, Lower Leg, Left : None Edema, Lower Leg, Right : None Edema, Ankle, Left : None Edema, Ankle, Right : None Edema, Foot, Left : None Edema, Foot, Right : None Edema, Anasarca : None MEME MESSER Karo 04/20/2019 16:49 EDT Capillary Refill, Left Hand : Less than/Equal to (</=) 2 seconds Capillary Refill, Right Hand : Less than/Equal to (</=) 2 seconds Capillary Refill, Left Foot : Less than/Equal to (</=) 2 seconds Capillary Refill, Right Foot : Less than/Equal to (</=) 2 seconds Clubbing Present : No Detailed Cardiovascular Assessment : Tripp MEME MESSER Ramiro Huddleston 04/20/2019 16:49 EDT Cardiovascular ASMT, Detailed Cardiac Rhythm : Normal sinus rhythm Monitoring Leads : II MEME MESSER Ramiro Huddleston 04/20/2019 16:49 EDT Respiratory Breath Sounds Auscultated : Anterior, Laterally Cough : None MEME MESSER Ramiro Huddleston 04/20/2019 16:49 EDT Breath Sounds Assessment Grid All Lobes Breath Sounds : Clear MEME MESSER Karo 04/20/2019 16:49 EDT Musculoskeletal Musculoskeletal Assessment WDL : WDL with exceptions Musculoskeletal Assessment Comment : recent back surgery 2 weeks ago by angela. MEME MESSER Ramiro 04/20/2019 16:49 EDT Neurologic ASMT, ED Neurologic Assessment WDL : WDL with exceptions (Comment: c/o generalized weakness x 1 week, equal movement of all extremities speech clear and appropriate. [MEME MESSER Ramiro 04/20/2019 16:49 EDT] ) Neurological Symptoms : Weakness Affect/Behavior : Appropriate Speech : Clear Pupils Equal, Round, Reactive to Light : Yes Pupil Description, Left : Regular, Round Pupil Reaction, Left : Brisk Pupil Description, Right : Regular, Round Pupil Reaction, Right : Brisk Pupil Size, Left : 3 mm Pupil Size, Right : 3 mm Brendan Coma Scale Link : Open GCS NIH Stroke Scale Link : Tripp MEME MESSER Ramiro Huddleston 04/20/2019 16:49 EDT Brendan Coma Brendan Best Motor Response : Obey commands Brendan Best Verbal Response : Oriented Brendan Eye Opening Response : Spontaneous Brendan Coma Score : 15 MEME MESSER J - 04/20/2019 16:49 EDT NIH Stroke Scale *Q NIH Assessment Interval : Baseline NIH Level of Consciousness (1A) : Alert NIH LOC Questions (1B) : Answers both questions correctly NIH LOC Commands (1C) : Performs both tasks correctly NIH Best Gaze (2) : Normal NIH Visual (3) : No visual loss NIH Facial Palsy (4) : Normal symmetrical movements NIH Motor Arm, Left (5A) : No drift NIH Motor Arm, Right (5B) : No drift NIH Motor Leg, Left (6A) : No drift NIH Motor Leg, Right (6B) : No drift NIH Limb Ataxia (7) : Absent NIH Sensory (8) : Normal NIH Best Language (9) : No aphasia NIH Dysarthria (10) : Normal Extinction and Inattention (11) : No abnormality NIH Scale Score : 0 MEME MESSER Ramiro - 04/20/2019 16:49 EDT documented in this encounter Plan of Treatment Not on file documented as of this encounter Visit Diagnoses Not on filedocumented in this encounter
--- OUTSIDE RECORDS SUMMARY | 2025-07-29 11:51 | XMS_ITS | Encounter Summary ---
Author Organization [employer] ([place], [place], [place], [place]) Address [address] [place] [address] Care Team Providers Care Tree Surgeon Name Role Phone Unavailable Primary Care Provider Unavailabl e Encounter Details Date Type Department Care Team (Late st Contact Info) Description 07/19/2019 Transcribed Document [facility] [place] Family Medicine [address] [place] [address] ProviderChano MD [address] [place], [place] [id number] Social History Tobacco Use Types Packs/Day Years Used Date Smoking Tobacco: Never Assessed Comments Unknown Sex and Gender Information Value Date Recorded Sex Assigned at Not on file Legal Sex Female 2:07 PM CDT Gender Identity Not on file Sexual Orientation Not on file documented as of this encounter Miscellaneous Notes * Cerner Conversion Note - Historical ProviderMD - 07/19/2019 10:19 AM CDT Attempt to Treat, OT Entered On: 07/19/2019 10:25 EDT Performed On: 07/19/2019 10:19 EDT by BOB BAUER OTR/Rob Attempt to Treat Unable to Treat Due To : Patient Refusal Inability to Treat Comment : Declines. States not happy with . present. Notification : EDISON Hoffman notified. BOB BAUER OTR/Rob - 07/19/2019 10:25 EDT documented in this encounter Plan of Treatment Not on file documented as of this encounter Visit Diagnoses Not on filedocumented in this encounter
--- OUTSIDE RECORDS SUMMARY | 2025-07-29 11:51 | XMS_ITS | Encounter Summary ---
Author Organization [employer] ([place], [place], [place], [place]) Address [address] [place] [address] Care Team Providers Care Revenue Coordinator Name Role Phone Unavailable Primary Care Provider Unavailabl e Encounter Details Date Type Department Care Team (Late st Contact Info) Description 04/22/2019 Transcribed Document [facility] [place] Family Medicine [address] [place] [address] ProviderChano MD [address] [place], [place] [id number] Social History Tobacco Use Types Packs/Day Years Used Date Smoking Tobacco: Never Assessed Comments Unknown Sex and Gender Information Value Date Recorded Sex Assigned at Not on file Legal Sex Female 2:07 PM CDT Gender Identity Not on file Sexual Orientation Not on file documented as of this encounter Miscellaneous Notes * Cerner Conversion Note - Historical ProviderMD - 04/22/2019 1:54 PM CDT Urine Culture Collected: 04/20/2019 Complete Body site: Specimen Type: U CleanCatch 04/22/2019 09:56 04/22/2019 13:54 (SAVANA GASTON, APR) Reviewed by Provider, No further action required documented in this encounter Plan of Treatment Not on file documented as of this encounter Visit Diagnoses Not on filedocumented in this encounter
--- OUTSIDE RECORDS SUMMARY | 2025-07-29 11:51 | XMS_ITS | Encounter Summary ---
Author Organization [employer] ([place], [place], [place], [place]) Address [address] [place] [address] Care Team Providers Care Wall Insulation Sprayer Name Role Phone Unavailable Primary Care Provider Unavailabl e Encounter Details Date Type Department Care Team (Late st Contact Info) Description 07/21/2019 Transcribed Document [facility] [place] Family Medicine [address] [place] [address] ProviderChano MD [address], [place] [id number] Social History Tobacco Use Types Packs/Day Years Used Date Smoking Tobacco: Never Assessed Comments Unknown Sex and Gender Information Value Date Recorded Sex Assigned at Not on file Legal Sex Female 2:07 PM CDT Gender Identity Not on file Sexual Orientation Not on file documented as of this encounter Miscellaneous Notes * Cerner Conversion Note - Chano ProviderMD - 07/21/2019 2:36 PM CDT On Going Discharge Planning Entered On: 07/21/2019 14:38 EDT Performed On: 07/21/2019 14:36 EDT by HORACIO ACHARYA RN-RackmanExecutive Meeting Manager Progress Note Discharge Arrangements : Patient Post-Acute Information Patient Name: ADRIENNE ANTONIO Gender: Female : [birth year] Age: 68 Years No Post-Acute Placement(s) Listed No Post-Acute Service(s) Listed No [place] Referral(s) Listed Barriers to Discharge Identified : Clinical Condition of Patient Barriers to Discharge Unresolved : Clinical Condition of Patient Certification for Post-Acute Care Initiated : 07/21/2019 EDT HORACIO ACHARYA RN-Rackman - 07/21/2019 14:36 EDT Narrative Progress Note Narrative Progress Note : Lisbeth met with pt and family at bedside, but her boss has declined admission. Spoke to Yodit with [employer], she can offer at all 3 in [place], and [place] They chose [facility], [facility]iley[facility] initiated. CM will continue to follow. Historical Progress Note : Pt was referred to 18 debbie/psych facilities by [facility]. All have declined admission, some stating she needs physical rehab and/or does not have any acute issues for psych admission. Spouse agreeable to try for SNF admission since she is still requiring assistance with ADL's and bed mobility. He chose [facility], [facility], [facility], and [facility]. Referrals sent via [employer]. Spoke to Lisbeth with the [facility] and [facility]. She states they have a exercise science internship that can see pt at the facility. She will need to come do a bedside eval. D/W Dr. Horner as well. CM will continue to follow. HORACIO ACHARYA RN-Rackman - 07/20/19 15:47:15 [facility] consulted. They received MD approval to send referrals to debbie/psych facilities per families request. They do not feel confident pt will be accepted as she has no acute issues right now and she has no SI/HI. If denied, pt will have to dc home with family and HH, likely tomorrow. D/W Dr. Horner and family. CM will continue to follow. HORACIO ACHARYA RN-Rackman - 07/19/19 15:10:43 [facility] eval for inpatient psych on Thursday 07/19. CM will continue to follow. HORACIO ACHARYA RN-Rackman - 07/16/19 12:46:58 [facility] declined admission to their psych unit. [facility]. Met with pt's daughter and had lengthy discussion regarding disposition. CM will consult MARINA at time of dc for help with admission to debbie-psych unit somewhere. D/W Dr. Horner and Dr. Jama. CM will continue to follow. HORACIO ACHARYA RN-Rackman - 07/15/19 14:03:13 Spoke to pt's spouse Kian on the phone today. 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 He states he does not want her going to those places as she kows people there. He agrees to referrals to [facility] and [facility] inpatient psych units. Referral sent and spoke to JUSTA Perez at [facility] and Royce RN at [facility]. CM will continue to follow. HORACIO ACHARYA RN-Rackman - 07/14/19 13:36:43 Dr. Valdez consult this am--pt not able to make medical decisions. Sitter at bedside. Spoke to pt's spouse on phone regarding DCP. He hopes for pt to go to inpatient psych initially prior to dc home. Pt may need rehab as well. Explained to spouse he does not need guardianship of pt. He has been handling the finances since pt's CVA 7 yrs ago. CM will continue to follow. HORACIO ACHARYA RN-Rackman - 07/13/19 17:41:20 psych consult referral faxed to Dr. Valdez's office to assess for psychosis. SANJIV VOGT, EDISON-Rackman - 07/11/19 16:14:26 HORACIO ACHARYA RN-Rackman - 07/21/2019 14:36 EDT documented in this encounter Plan of Treatment Not on file documented as of this encounter Visit Diagnoses Not on filedocumented in this encounter
--- OUTSIDE RECORDS SUMMARY | 2025-07-29 11:51 | XMS_ITS | Encounter Summary ---
Author Organization [employer] ([place], [place], [place], [place]) Address [address] [place] [address] Care Team Providers Care Child Nutrition Manager Name Role Phone Unavailable Primary Care Provider Unavailabl e Encounter Details Date Type Department Care Team (Late st Contact Info) Description 04/20/2019 Transcribed Document [facility] [place] [address] [place] [address] ProviderChano MD [address], [place] [phone] Social History Tobacco Use Types Packs/Day Years Used Date Smoking Tobacco: Never Assessed Comments Unknown Sex and Gender Information Value Date Recorded Sex Assigned at Not on file Legal Sex Female 2:07 PM CDT Gender Identity Not on file Sexual Orientation Not on file documented as of this encounter Miscellaneous Notes * Cerner Conversion Note - Historical ProviderMD - 04/20/2019 6:23 PM CDT ED Discharge Entered On: 04/20/2019 18:23 EDT Performed On: 04/20/2019 18:23 EDT by AARON AGARWAL urban redevelopment specialist Process Patient Disposition : Discharge Personal Belongings With Patient : Yes Patient Education Completed : Yes Teaching Evaluation : Verbalizes understanding IV Discontinued : Yes Nursing Documentation Completed : Yes AARON AGARWAL RN - 04/20/2019 18:23 EDT ED Discharge Discharge To : Home with ambulatory/outpatient follow-up Mode Of Departure : Ambulatory Accompanied By : Spouse Discharge Instructions Reviewed With, Opportunity For Questions Given : Patient, Spouse Prescriptions Given to Patient : Yes Number of Prescriptions Given : 1 AARON AGARWAL RN - 04/20/2019 18:23 EDT Electronically signed by [facility] Conversion Link Cutter Cerner at 01/23/2023 1:11 PM CDT documented in this encounter Plan of Treatment Not on file documented as of this encounter Visit Diagnoses Not on filedocumented in this encounter
--- OUTSIDE RECORDS SUMMARY | 2025-07-29 11:51 | XMS_ITS | Encounter Summary ---
Author Organization [employer] ([place], [place], [place], [place]) Address [address] [place] [address] Care Team Providers Care Graphic Designer Name Role Phone Unavailable Primary Care Provider Unavailabl e Encounter Details Date Type Department Care Team (Late st Contact Info) Description 04/20/2019 Transcribed Document [facility] [place] Family Medicine [facility] [place] [address] ProviderChano MD [address] [place], [place] [phone] Social History Tobacco Use Types Packs/Day Years Used Date Smoking Tobacco: Never Assessed Comments Unknown Sex and Gender Information Value Date Recorded Sex Assigned at Not on file Legal Sex Female 2:07 PM CDT Gender Identity Not on file Sexual Orientation Not on file documented as of this encounter Miscellaneous Notes * Cerner Conversion Note - Historical ProviderMD - 04/20/2019 6:11 PM CDT Electronically signed by [facility] Conversion Banquet Attendant Cerner at 01/23/2023 1:39 PM CDT documented in this encounter Plan of Treatment Not on file documented as of this encounter Visit Diagnoses Not on filedocumented in this encounter
--- OUTSIDE RECORDS SUMMARY | 2025-07-29 11:51 | XMS_ITS | Encounter Summary ---
Author Organization [employer] ([place], [place], [place], [place]) Address [address] [place] [address] Care Team Providers Care Air Table Operator Name Role Phone Unavailable Primary Care Provider Unavailabl e Encounter Details Date Type Department Care Team (Late st Contact Info) Description 07/22/2019 Transcribed Document [facility] Radiology [address] [place] [address] Abby Reid MD [address] [place] [address] [place] [address] Social History Tobacco Use Types Packs/Day Years Used Date Smoking Tobacco: Never Assessed Comments Unknown Sex and Gender Information Value Date Recorded Sex Assigned at Not on file Legal Sex Female 2:07 PM CDT Gender Identity Not on file Sexual Orientation Not on file documented as of this encounter Miscellaneous Notes * Cerner Conversion Note - Abby Reid MD - 07/22/2019 10:41 AM EDT Patient: LUDY ANTONIO Age: 68 years Sex: Female : 1950 Associated Diagnoses: None Author: ABBY REID MD-INT Subjective 68-year-old female who had recent back surgery by Dr. Lucas, readmitted for back pain NS redo back surgery and culture pending ID also consulted and on iv abx and later off but patient cont confusion and agitation and neurology also consulted Ct of head showed old CVA seroquel also added and did help her saw her today in am and she feel better, more calm and eat well, no fam around this am bp mild lower than before, precert pending ROS: no fever, no cp or sob, no n/v/d, has confused and agitation Health Status Allergies: Allergic Reactions (Selected) Severity Not Documented Avandia- Chf. Fenofibrate- No reactions were documented. MetFORMIN- No reactions were documented. NSAIDs- No reactions were documented. Statins- Fenofibrate and fenofibrate., Allergies (1) Active Reaction Avandia CHF Current medications: (Selected) Inpatient Medications Ordered Cymbalta: 60 mg, Oral, At Bedtime Depakote: 250 mg, Oral, BID Desenex AF 2% topical powder: 1 Application, Topical, Q12H DuoNeb 0.5 mg-2.5 mg/3 mL inhalation solution: 3 mL, Nebulized Inhalation, RT_Q6H, PRN: Shortness of Breath Flonase: 1 Puff, Nasal, Daily Haldol: 2 mg, IV Push, Q8H, PRN: Agitation Lantus: 25 Units, SubCutaneous, BID Lidoderm 5% topical film: 3 Patch, TransDermal, Daily Lovenox: 40 mg, SubCutaneous, Daily Magic Mouthwash: 5 mL, Oral, Q6H MiraLax: 17 Gram, Oral, Daily, PRN: Constipation SEROquel: 6.25 mg, Oral, BID Tylenol: 650 mg, Oral, Q4H, PRN: Pain (Mild 1-3) Valium: 5 mg, Oral, Q6H, PRN: Spasms Zofran: 4 mg, IV Push, Q4H, PRN: Nausea famotidine: 20 mg, Oral, BID gabapentin: 300 mg, Oral, QPM insulin lispro sliding scale: Scale D, SubCutaneous, AC and at Bedtime insulin lispro: 8 Units, SubCutaneous, TID With Meals lisinopril: 20 mg, Oral, At Bedtime loratadine: 10 mg, Oral, At Bedtime metoprolol tartrate: 12.5 mg, Oral, BID morphine: 2 mg, IV Push, Q2H, PRN: Pain (Severe 7-10) oxyCODONE: 10 mg, Oral, Q6H, PRN: Pain (Moderate 4-6) Prescriptions Prescribed Depakote 250 mg oral delayed release tablet: 1 Tab, Oral, BID, 60 Tab, 0 Refill(s) Lidoderm 5% topical film: 2 Patch, TransDermal, Daily, 20 Package, 0 Refill(s) SEROquel 25 mg oral tablet: 0.25 Tab, Oral, BID, 15 Tab, 0 Refill(s) Valium 5 mg oral tablet: 1 Tab, Oral, Q6H, for 1 Day(s), PRN: Spasms, 5 Tab, 0 Refill(s) gabapentin 300 mg oral capsule: 1 Cap, Oral, QPM, 30 Cap, 0 Refill(s) lisinopril 20 mg oral tablet: 1 Tab, Oral, At Bedtime, for 30 Day(s), 30 Tab, 0 Refill(s) oxyCODONE 10 mg oral tablet: 1 Tab, Oral, Q6H, PRN: Pain (Moderate 4-6), 30 Tab, 0 Refill(s) Documented Medications Documented Aciphex: 20 mg, Oral, BID Advair Diskus 250 mcg-50 mcg inhalation powder: 1 Puff, Inhalation, Daily, PRN: as needed, 0 Refill(s) Centrum: 1 Tab, Oral, Daily Cymbalta 60 mg oral delayed release capsule: 1 Cap, Oral, At Bedtime, (do not crush or chew) Diflucan 100 mg oral tablet: 1 Tab, Oral, Daily, 0 Refill(s) Flonase 0.05 mg/inh nasal spray: 2 [place], Nasal, Daily, 16 Gram, 0 Refill(s) Lantus 100 units/mL subcutaneous solution: 25 Units, SubCutaneous, BID, 0 Refill(s) Lovenox: 40 mg, SubCutaneous, Daily, 0 Refill(s) Metoprolol Tartrate 25 mg oral tablet: 0.5 Tab, Oral, BID, 30 Tab, 0 Refill(s) Vitamin D3: 50,000 Int Units, Oral, See Comment, friday and friday, 0 Refill(s) insulin lispro 100 units/mL injectable solution: 8 Units, SubCutaneous, TID With Meals, 0 Refill(s) loratadine 10 mg oral tablet: 1 Tab, Oral, At Bedtime, 30 Tab, 0 Refill(s), Home Medications (19) Active Aciphex 20 mg, Oral, BID Advair Diskus 250 mcg-50 mcg inhalation powder 1 Puff, PRN, Inhalation, Daily Centrum 1 Tab, Oral, Daily Cymbalta 60 mg oral delayed release capsule 60 mg = 1 Cap, Oral, At Bedtime Depakote 250 mg oral delayed release tablet 250 mg = 1 Tab, Oral, BID Diflucan 100 mg oral tablet 100 mg = 1 Tab, Oral, Daily Flonase 0.05 mg/inh nasal spray 2 [place], Nasal, Daily gabapentin 300 mg oral capsule 300 mg = 1 Cap, Oral, QPM insulin lispro 100 units/mL injectable solution 8 Units, SubCutaneous, TID With Meals Lantus 100 units/mL subcutaneous solution 25 Units, SubCutaneous, BID Lidoderm 5% topical film 2 Patch, TransDermal, Daily lisinopril 20 mg oral tablet 20 mg = 1 Tab, Oral, At Bedtime loratadine 10 mg oral tablet 10 mg = 1 Tab, Oral, At Bedtime Lovenox 40 mg = 0.4 mL, SubCutaneous, Daily Metoprolol Tartrate 25 mg oral tablet 12.5 mg = 0.5 Tab, Oral, BID oxyCODONE 10 mg oral tablet 10 mg = 1 Tab, PRN, Oral, Q6H SEROquel 25 mg oral tablet 6.25 mg = 0.25 Tab, Oral, BID Valium 5 mg oral tablet 5 mg = 1 Tab, PRN, Oral, Q6H Vitamin D3 50,000 Int Units, Oral, See Comment , Medications (24) Active Scheduled: (16) divalproex 250 mg EC tab 250 mg 1 Tab, Oral, BID DULoxetine DR 30 mg cap 60 mg 2 Cap, Oral, At Bedtime enoxaparin 40 mg/0.4 mL inj 40 mg 0.4 mL, SubCutaneous, Daily famotidine 20 mg tab 20 mg 1 Tab, Oral, BID fluticasone 0.05% nasal spray 1 Puff, Nasal, Daily gabapentin 300 mg cap 300 mg 1 Cap, Oral, QPM insulin glargine 1 unit/0.01 mL inj 25 Units 0.25 mL, SubCutaneous, BID insulin lispro 1 unit/0.01 mL inj Scale D, SubCutaneous, AC and at Bedtime insulin lispro 1 unit/0.01 mL inj 8 Units 0.08 mL, SubCutaneous, TID With Meals lidocaine 5% patch 3 Patch, TransDermal, Daily lisinopril 20 mg tab 20 mg 1 Tab, Oral, At Bedtime loratadine 10 mg tab 10 mg 1 Tab, Oral, At Bedtime Magic Mouthwash 5 mL, Oral, Q6H metoprolol tartrate 25 mg tab 12.5 mg 0.5 Tab, Oral, BID miconazole nitrate 2% pwd 45 g 1 Application, Topical, Q12H QUEtiapine 25 mg tab 6.25 mg 0.25 Tab, Oral, BID Continuous: (0) PRN: (8) acetaminophen 325 mg tab 650 mg 2 Tab, Oral, Q4H albuterol-ipratropium inh 3 mL 3 mL, Nebulized Inhalation, RT_Q6H diazepam 5 mg tab 5 mg 1 Tab, Oral, Q6H haloperidol 5 mg/1 mL inj 2 mg 0.4 mL, IV Push, Q8H morphine 2 mg/1 ml inj 2 mg 1 mL, IV Push, Q2H ondansetron 4 mg/2 mL inj 4 mg 2 mL, IV Push, Q4H oxyCODONE 5 mg tab 10 mg 2 Tab, Oral, Q6H polyethylene glycol 3350 pwd 17 g pkt 17 Gram 1 Packet, Oral, Daily Problem list: Medical Pain//chronic / SNOMED CT 589252126 / Confirmed At risk for sleep apnea / IMO 10714990 / Confirmed Back pain / SNOMED CT 3333997079 / Confirmed Cataract///beginning stage / SNOMED CT 816772127 / Confirmed Chest pain///cath negative / SNOMED CT 56845919 / Confirmed Completely occulded L carotid / SNOMED CT 1159995196 / Confirmed Lumbar disc disease / SNOMED CT 8330205682 / Confirmed Fibromyalgia / SNOMED CT 408912846 / Confirmed Hiatal hernia / SNOMED CT 804729784 / Complaint of H/O ischemic left MCA stroke / SNOMED CT 4589493234 / Confirmed Memory deficit///slow recall / SNOMED CT 2181584994 / Confirmed Numbness and tingling//right leg / SNOMED CT 5021231718 / Confirmed Obesity / SNOMED CT 9434269623 / Confirmed Right leg pain / SNOMED CT 2657234372 / Confirmed Colon polyps / SNOMED CT 775633268 / Confirmed Sleep apnea///risk / SNOMED CT 006080737 / Confirmed Wears glasses / SNOMED CT 073130049 / Confirmed, Active Problems (24) Acid reflux Allergic asthma [...] Right leg pain Sleep apnea///risk Wears glasses Objective VS/Measurements Vitals Signs (last 24 hrs) Last Charted Minimum Maximum Temp 98.4 (JUL 22 06:24) 98 (JUL 21 21:15) 98.2 (JUL 21 17:00) Apical HR 80 (JUL 22 08:59) 61 (JUL 21 10:17) 80 (JUL 22 08:59) Mon HR 80 (JUL 22 06:24) 60 (JUL 21 17:31) 80 (JUL 22 06:24) Resp Rate 16 (JUL 22 06:24) 16 (JUL 21 21:15) 17 (JUL 21:31) SBP H 154 (JUL 22 06:24) 129 (JUL 21 17:31) H 186 (JUL 21 21:15) DBP 75 (JUL 22 06:24) L 52 (JUL 21:31) 75 (JUL 22 06:24) MAP 95 (JUL 22 06:24) 67 (JUL 21:31) 95 (JUL 22 06:24) SpO2 L 93 (JUL 21 17:31) L 93 (JUL 21:31) 98 (JUL 21 12:45) General: Moderate distress. Neck: Supple, Non-tender, No jugular venous distention. Respiratory: Breath sounds are equal, Symmetrical chest wall expansion, No chest wall tenderness. Cardiovascular: Normal rate, No murmur, No gallop. Gastrointestinal: Soft, Non-tender, Normal bowel sounds. Musculoskeletal: No tenderness, No deformity. Integumentary: Warm, Intact, No pallor. Neurologic: Alert. Psychiatric: Cooperative, mild confusion, Not appropriate mood & affect. Results Review Lab and test: Labs (Last four charted values) WBC 8.4 (JUL 21) 7.2 (JUL 18) 8.4 (JUL 12) 8.2 (JUL 11) HB 11.6 (JUL 21) 11.3 (JUL 18) 11.5 (JUL 12) 11.5 (OCT 06) HCT 37.0 (OCT 16) 35.4 (OCT 13) 35.7 (OCT 07) 35.6 (OCT 06) Plt 273 (JUL 16) 277 (OCT 13) 263 (JUL 07) 230 (OCT 06) Na 141 (OCT 16) 143 (OCT 13) 142 (OCT 07) 140 (OCT 06) K 3.7 (OCT 16) 4.1 (OCT 13) 3.8 (OCT 07) 4.2 (OCT 06) Cl 107 (JUL 16) 106 (JUL 13) 104 (OCT 07) 104 (JUL 06) CO2 29 (OCT 16) 30 (OCT 13) 31 (OCT 07) 31 (JUL 06) BUN H 27 (JUL 16) H 23 (JUL 13) 14 (JUL 07) 14 (JUL 06) Cr 1.00 (JUL 16) 1.00 (OCT 13) 0.90 (OCT 07) 0.90 (OCT 06) Glu R H 134 (JUL 16) H 213 (JUL 13) H 202 (JUL 07) H 248 (JUL 11) Ca 9.1 (JUL 16) 9.4 (OCT 13) 9.0 (JUL 07) 9.0 (OCT 06) PT 9.9 (JUL 04) 10.1 (JUL 03) INR 0.9 (JUL 09) 0.9 (JUL 03) PTT 28.0 (JUL 03) AST 15 (JUL 16) 18 (JUL 07) 16 (JUL 04) 17 (JUL 03) ALT 24 (OCT 16) 25 (JUL 07) 23 (JUL 04) 21 (JUL 03) ALK P 56 (JUL 16) 56 (JUL 07) 69 (JUL 04) 63 (JUL 03) T Bili 0.3 (JUL 16) 0.3 (JUL 07) 0.3 (OCT 04) 0.4 (JUL 03) PTN L 6.2 (JUL 16) 6.7 (JUL 07) 7.1 (OCT 04) 7.0 (JUL 03) ALB L 2.7 (JUL 16) L 2.8 (JUL 07) L 3.1 (JUL 04) L 3.2 (JUL 03) No Radiology Results Found Diagnosis / problem acute on chronic psychosis- better with seroquel acute encephalopathy- improving Worsening back pain, - Redo right L3-4 minimally invasive surgery microdiscectomy. History of diabetes, hypertension, h/o cerebrovascular accident anxiety UTI on admit leg pain - dominick? related back - better skin yeast infection Plan: 1. see above medication list for treatment. 2. insulin ss, on lantus 25 bid 3. on diflucan, and magic washing 4. off abx per ID 5. decrease seroquel to 6.25 bid 6. pain control 7. Bp control 8. lovenox sq for DVT prophylaxis 9. decrease lisino to 20 mg, d/c norvasc 10. d/w cm, and try to get to rehab facility now- I d/w pt and fami DIscharge summary dictated documented in this encounter Plan of Treatment Not on file documented as of this encounter Visit Diagnoses Not on filedocumented in this encounter
--- OUTSIDE RECORDS SUMMARY | 2025-07-29 11:51 | XMS_ITS | Encounter Summary ---
Author Organization [employer] ([place], [place], [place], [place]) Address [address] [place] [address] Care Team Providers Care Mixer Runner Name Role Phone Unavailable Primary Care Provider Unavailabl e Encounter Details Date Type Department Care Team (Late st Contact Info) Description 07/20/2019 Transcribed Document [facility] Family Medicine [facility] [place] [address] ProviderChano MD [address], [place] [id number] Social History Tobacco Use Types Packs/Day Years Used Date Smoking Tobacco: Never Assessed Comments Unknown Sex and Gender Information Value Date Recorded Sex Assigned at Not on file Legal Sex Female 2:07 PM CDT Gender Identity Not on file Sexual Orientation Not on file documented as of this encounter Miscellaneous Notes * Cerner Conversion Note - Chano ProviderMD - 07/20/2019 11:16 AM CDT Care Management Assessment/Plan Entered On: 07/20/2019 11:19 EDT Performed On: 07/20/2019 11:16 EDT by RODOLFO TOUSSAINT ASSESSMENT CLINICIAN Mg Care Management Note Care Management Note : This clinician spoke with [facility] intake department. Informed referral is under review and they will contact commercial account manager Sisi for additional medical information on patient. [facility] spoke with [facility] they are waiting for doctor to review the clinical information today. They will contact [facility] or [facility] office for disposition on patient. [facility] spoke with [facility], currently under review. [facility] cancelled referral due to unable to get medical question answered last night. Care Management Note Report : RODOLFO TOUSSAINT ASSESSMENT CLINICIAN Mg - 07/20/19 10:19:06 Update on the referrals for this patient. [facility] declined inpt treatment. [facility] no longer has a [facility]. Attempted to contact [facility] regarding referral. Unable to reach someone in admissions to get an update on referral. Contacted EDISON Laird regarding update on referrals. Explained her phone # to the [facility] unit was given to referrals to contact regarding dispositions. RODOLFO TOUSSAINT SPRINKLER DRIVER I - 07/19/19 15:35:04 The following hospitals have been contacted and faxed clinical information for consideration of inpt debbie psych: [facility]- phone [phone] Fx:[phone] [facility]-PH:[phone] Fx: [phone] [facility]- Fx:[phone] [facility]- Fx:[phone] [facility]- Fx:[phone] [facility]- Fx:[phone] [facility]- Fx:[phone] [facility]- Fx:[phone] [facility]- Fx:[phone] [facility]- Fx:[phone] --declined pt [facility]- Documentation Status Complete : Yes RODOLFO TOUSSAINT, SPRINKLER DRIVER I - 07/20/2019 11:16 EDT Electronically signed by [facility] Conversion Technical Designer Cerner at 01/23/2023 1:13 PM CDT documented in this encounter Plan of Treatment Not on file documented as of this encounter Visit Diagnoses Not on filedocumented in this encounter
--- OUTSIDE RECORDS SUMMARY | 2025-07-29 11:51 | XMS_ITS | Encounter Summary ---
Author Organization [employer] ([place], [place], [place], [place]) Address [address] [place] [address] Care Team Providers Care Masonry Supervisor Name Role Phone Unavailable Primary Care Provider Unavailabl e Encounter Details Date Type Department Care Team (Late st Contact Info) Description 07/22/[address] [facility] [place] [facility] [place] [address] ProviderChano MD [address] [id number] Social History Tobacco Use Types Packs/Day Years Used Date Smoking Tobacco: Never Assessed Comments Unknown Sex and Gender Information Value Date Recorded Sex Assigned at Not on file Legal Sex Female 2:07 PM CDT Gender Identity Not on file Sexual Orientation Not on file documented as of this encounter Miscellaneous Notes * Cerner Conversion Note - Historical ProviderMD - 07/22/2019 2:17 PM CDT Patient: LUDY ANTONIO Age: 68 Years Sex: Female : 1950 Subjective Since I last saw the patient on the , Dr. Valdez of Psychiatry saw the patient on the . He obtained the history that the patient has a lifelong history of mood instability and irritability which got worse after her stroke years ago. Dr. Valdez started her on Depakote on the to see if this would help with irritability . The patient remains on Seroquel 6.25 mg bid as well. Family reports that up until yesterday the patient's confusion seemed to be getting better but over the last 24 hours they have noted more confusion and nurse reports that this morning patient had trouble identifying a can of coffee. Patient is receiving Oxycodone 10mg prn for pain ( has received two doses today ) Review of Systems ID - Dr. Jama is following her and has ordered a RPR and urinalysis. Objective Vitals & Measurements T: 36.7 ??C TMIN: 36.7 ??C TMAX: 36.9 ??C HR: 69(Monitored) RR: 17 BP: 129/60 SpO2: 93% Physical Exam Patient groggy but will wake up easily to voice. Tells me her name but unable to tell me where we are. Follows simple commands. TESTS Depakote level - 32 Assessment/Plan Ludy Antonio is a 68-year-old female with diabetes, cerebrovascular disease, an occluded left carotid artery, back pain as well as multiple orthopedic procedures and chronic gait disorder, who has had a three month history of encephalopathy. She currently is hospitalized after having recurrent back surgery on right L3-4 on July 08. She has been having problems with encephalopathy after her surgery. She was placed on Depakote on the . Family and staff report worse encephalopathy over the last 24 hours. The differential for her encephalopathy could include one or a combination of the followin. An underlying psychiatric illness or neurodegenerative disease . 2. Side effects of medications. 3. A DULITE MACHINE BLUER infection. 4. Cerebrovascular disease. 5. Seizures. RECOMMENDATIONS: At this time, I am recommending the following. 1. I agree with Seroquel trial . 2. At discharge, she should follow up with her outpatient neurologist , Dr. Núñez. 3. No driving until released by a physician. 4. I am also requesting records from her outpatient neurologist , Dr. Núñez. 5. Follow up on urinalysis and RPR. 6. Cranial MRI if she can tolerate it. 7. Will try stopping Depakote. I have spent over 25 minutes on this case today . Over half that time was spent counseling family. Medications Inpatient Cymbalta, 60 mg= 2 Cap, Oral, At Bedtime Desenex AF 2% topical powder, 1 Application, Topical, Q12H DuoNeb 0.5 mg-2.5 mg/3 mL inhalation solution, 3 mL, Nebulized Inhalation , RT_Q6H, PRN famotidine, 20 mg= 1 Tab, Oral, BID Flonase, 1 Puff, Nasal, Daily gabapentin, 300 mg= 1 Cap, Oral, QPM Haldol, 2 mg= 0.4 mL, IV Push, Q8H, PRN insulin lispro, 8 Units= 0.08 mL, SubCutaneous, TID With Meals insulin lispro sliding scale, Scale D, SubCutaneous, AC and at Bedtime Lantus, 25 Units= 0.25 mL, SubCutaneous, BID Lidoderm 5% topical film, 3 Patch, TransDermal, Daily lisinopril, 20 mg= 1 Tab, Oral, At Bedtime loratadine, 10 mg= 1 Tab, Oral, At Bedtime Lovenox, 40 mg= 0.4 mL, SubCutaneous, Daily Magic Mouthwash, 5 mL, Oral, Q6H metoprolol tartrate, 12.5 mg= 0.5 Tab, Oral, BID MiraLax, 17 Gram= 1 Packet, Oral, Daily, PRN morphine, 2 mg= 1 mL, IV Push, Q2H, PRN oxyCODONE, 10 mg= 2 Tab, Oral, Q6H, PRN SEROquel, 6.25 mg= 0.25 Tab, Oral, BID Tylenol, 650 mg= 2 Tab, Oral, Q4H, PRN Valium, 5 mg= 1 Tab, Oral, Q6H, PRN Zofran, 4 mg= 2 mL, IV Push, Q4H, PRN documented in this encounter Plan of Treatment Not on file documented as of this encounter Visit Diagnoses Not on filedocumented in this encounter
--- OUTSIDE RECORDS SUMMARY | 2025-07-29 11:51 | XMS_ITS | Encounter Summary ---
Author Organization [employer] ([place], [place], [place], [place]) Address [address] [place] [address] Care Team Providers Care Java J2Ee Architect Name Role Phone Unavailable Primary Care Provider Unavailabl e Encounter Details Date Type Department Care Team (Late st Contact Info) Description 07/08/[address] [facility] Family Medicine [address] [place] [address] ProviderChano MD [address] [id number] Social History Tobacco Use Types Packs/Day Years Used Date Smoking Tobacco: Never Assessed Comments Unknown Sex and Gender Information Value Date Recorded Sex Assigned at Not on file Legal Sex Female 2:07 PM CDT Gender Identity Not on file Sexual Orientation Not on file documented as of this encounter Miscellaneous Notes * Cerner Conversion Note - Chano ProviderMD - 07/08/2019 7:09 PM CDT Pain Assessment Entered On: 07/08/2019 20:26 EDT Performed On: 07/08/2019 20:26 EDT by Libby Monaco Rn Intervention Information: morphine Performed by ANKIT WINSLOW RN on 07/08/2019 19:37:00 EDT morphine,4mg IV Push,Peripheral Line 1 Pain Assessment Pain Assessment : Follow-up assessment Pain Scale Used : 0-10 Scale Libby Monaco Rn - 07/08/2019 20:26 EDT Pain Scale Intensity : 8 Libby Monaco Rn - 07/08/2019 20:26 EDT Image 4 - Images currently included in the form version of this document have not been included in the text rendition version of the form. documented in this encounter Plan of Treatment Not on file documented as of this encounter Visit Diagnoses Not on filedocumented in this encounter
--- OUTSIDE RECORDS SUMMARY | 2025-07-29 11:51 | XMS_ITS | Encounter Summary ---
Author Organization [employer] ([place], [place], [place], [place]) Address [address] [place] [address] Care Team Providers Care Metal Checker Name Role Phone Unavailable Primary Care Provider Unavailabl e Encounter Details Date Type Department Care Team (Late st Contact Info) Description 07/08/2019 Transcribed Document [facility] [place] [address] [place] [address] ProviderChano MD [address], [place] [id number] Social History Tobacco Use Types Packs/Day Years Used Date Smoking Tobacco: Never Assessed Comments Unknown Sex and Gender Information Value Date Recorded Sex Assigned at Not on file Legal Sex Female 2:07 PM CDT Gender Identity Not on file Sexual Orientation Not on file documented as of this encounter Miscellaneous Notes * Cerner Conversion Note - Chano ProviderMD - 07/08/2019 10:19 PM CDT Pain Assessment Entered On: 07/26/2019 16:58 EDT Performed On: 07/26/2019 11:40 EDT by RICHARD VEGA RN Intervention Information: acetaminophen Performed by RICHARD VEGA RN on 07/26/2019 10:40:00 EDT acetaminophen,650mg Oral,Pain (Mild 1-3) Pain Assessment Pain Assessment : Follow-up assessment Pain Scale Goal : 3 Pain Scale Used : 0-10 Scale Location : Back, lower Onset : Acute Quality : Aching Pain Radiation : No Pain Improved by : Medication Pain Worsened by : Movement Pain Intervention, Drug : Medicated Pain Improved by Intervention : Yes RICHARD VEGA RN - 07/26/2019 16:57 EDT Pain Scale Intensity : 0 RICHARD VEGA RN - 07/26/2019 16:57 EDT Image 4 - Images currently included in the form version of this document have not been included in the text rendition version of the form. documented in this encounter Plan of Treatment Not on file documented as of this encounter Visit Diagnoses Not on filedocumented in this encounter
--- OUTSIDE RECORDS SUMMARY | 2025-07-29 11:51 | XMS_ITS | Encounter Summary ---
Author Organization [facility] ([place], [place], [place], [place]) Address [address] [place] [address] Care Team Providers Care Barrel Assembler Helper Name Role Phone Unavailable Primary Care Provider Unavailabl e Encounter Details Date Type Department Care Team (Late st Contact Info) Description 04/06/2019 Transcribed Document [facility] Family Medicine [address] [place] [address] ProviderChano MD [address] [place], [place] [id number] Social History Tobacco Use Types Packs/Day Years Used Date Smoking Tobacco: Never Assessed Comments Unknown Sex and Gender Information Value Date Recorded Sex Assigned at Not on file Legal Sex Female 2:07 PM CDT Gender Identity Not on file Sexual Orientation Not on file documented as of this encounter Miscellaneous Notes * Cerner Conversion Note - Historical ProviderMD - 04/06/2019 8:57 AM CDT Stroke/Warfarin Instructions Entered On: 04/06/2019 8:57 EDT Performed On: 04/06/2019 8:57 EDT by Shani Dewitt Rn Stroke/Warfarin Instructions Stroke/TIA Discharge Ins : N/A Warfarin Discharge Ins : N/A Shani Dewitt Rn - 04/06/2019 8:57 EDT documented in this encounter Plan of Treatment Not on file documented as of this encounter Visit Diagnoses Not on filedocumented in this encounter
--- OUTSIDE RECORDS SUMMARY | 2025-07-29 11:51 | XMS_ITS | Encounter Summary ---
Author Organization [employer] ([place], [place], [place], [place]) Address [address] [place] [address] Care Team Providers Care Electric Meter Inspector Name Role Phone Unavailable Primary Care Provider Unavailabl e Encounter Details Date Type Department Care Team (Late st Contact Info) Description 07/22/2019 Transcribed Document [facility] Family Medicine [address] [place] [address] ProviderChano MD [address] [place], [place] [id number] Social History Tobacco Use Types Packs/Day Years Used Date Smoking Tobacco: Never Assessed Comments Unknown Sex and Gender Information Value Date Recorded Sex Assigned at Not on file Legal Sex Female 2:07 PM CDT Gender Identity Not on file Sexual Orientation Not on file documented as of this encounter Miscellaneous Notes * Cerner Conversion Note - Historical ProviderMD - 07/22/2019 11:40 AM CDT Attempt to Treat, OT Entered On: 07/22/2019 14:48 EDT Performed On: 07/22/2019 11:40 EDT by HOLLY GALDAMEZ OTR/Rob Attempt to Treat Unable to Treat Due To : Patient Refusal Inability to Treat Comment : Pt states she is too tired and unable to participate at this time. Pt encouraged and continued to decline with OT, PT, and family encouraging. HOLLY GALDAMEZ OTR/Rob - 07/22/2019 14:35 EDT Electronically signed by Julian Wheeler Conversion Internal Review And Audit Compliance Wade at 01/23/2023 1:25 PM CDT documented in this encounter Plan of Treatment Not on file documented as of this encounter Visit Diagnoses Not on filedocumented in this encounter
--- OUTSIDE RECORDS SUMMARY | 2025-07-29 11:51 | XMS_ITS | Encounter Summary ---
Author Organization [facility] ([place], [place], [place], [place]) Address [address] [place] [address] Care Team Providers Care Route Sales Trainee Name Role Phone Unavailable Primary Care Provider Unavailabl e Encounter Details Date Type Department Care Team (Late st Contact Info) Description 07/19/2019 Transcribed Document [facility] [place] Family Medicine [address] [place] [address] Chano Gatica MD [address] [place], [place] [id number] Social History Tobacco Use Types Packs/Day Years Used Date Smoking Tobacco: Never Assessed Comments Unknown Sex and Gender Information Value Date Recorded Sex Assigned at Not on file Legal Sex Female 2:07 PM CDT Gender Identity Not on file Sexual Orientation Not on file documented as of this encounter Miscellaneous Notes * Cerner Conversion Note - Chano Gatica MD - 07/19/2019 1:57 PM CDT Behavioral Health Assessment Note Entered On: 07/19/2019 14:09 EDT Performed On: 07/19/2019 13:57 EDT by RODOLFO TOUSSAINT ASSESSMENT CLINICIAN I Behavioral Health Assessment Note Reason For Behavioral Health Assessment : Pt is a 68 year old female at [facility] presenting with labile mood and confusion since surgery on 07/10/19. Pt was admitted to hospital on 07/09/19 and required back surgery on 07/10/19. Pt has called the police several times while inpt at [facility]. Pt has called the family during the night requesting to go home because she is not getting cared for by staff. Per family this information is not accurate. Pt states she is unable to remember. Pt denies any suicidal ideation or homicidal ideation. Pt has ongoing mood instablity and worsening aggressive behaviors. Are You Currently Suicidal Or Homicidal? : No Suicidal Ideation : No current suicidal thoughts Suicide Plan : No plan Current Admission Precipitated By Suicide Attempt : No Suicide Attempt History : No previous attempt Are You Currently Homicidal : No Do You Have a Plan to Harm Others : No plan Clear Homicidal Target : No Thought Process : Flight of ideas, Tangential Thought Content : Anger Types of Hallucination(s) : None Appearance : Casual Mood : Anxious, Cooperative, Labile, Sad Affect : Labile General behavior , BH : Cooperative Rate of Speech : Normal Tone of Speech : Average Orientation : Not oriented to situation Legal Guardian : No Legal Status : Voluntary Post-eval Disposition : Inpatient Acute Other Name of Receiving Facility/Provider : Referrals faxed to [facility] facilities for consideration for inpt treatment. Mode Of Departure, General Discharge : Unknown Additional Behavioral Health Notes : Reviewed clinical information with [facility] manager oncology psychiatrist Dr. Solano recommends inpt [facility] facility for medication mangement and mood instablity. Pt is not appropriate for inpt treatment at [facility]. Pt denies any suicidal ideation and homicidal ideation. Pt could benefit from evaluation for medications and mood instablity. Family and patient agreeable to referrals to [facility] facilities for consideration for inpt treatment. RODOLFO TOUSSAINT, PATHOLOGY LABORATORY AIDES TEACHER I - 07/19/2019 13:57 EDT Social History (As Of: 07/19/2019 14:09:56 EDT) Tobacco: Use in Last 12 Months: [...] TRINIDAD, ED Nurse) Employment/School: Retired, Previous employment/school: [employer]. (Last Updated: 07/17/2014 00:15:13 EDT by KATIE TRINIDAD, ED Nurse) documented in this encounter Plan of Treatment Not on file documented as of this encounter Visit Diagnoses Not on filedocumented in this encounter
--- OUTSIDE RECORDS SUMMARY | 2025-07-29 11:51 | XMS_ITS | Encounter Summary ---
Author Organization [employer] ([place], [place], [place], [place]) Address [address] [place] [address] Care Team Providers Care Workday Consultant Name Role Phone Unavailable Primary Care Provider Unavailabl e Encounter Details Date Type Department Care Team (Late st Contact Info) Description 04/06/2019 Transcribed Document [facility] [place] [address] [place] [address] ProviderChano MD [address] [place], [place] [id number] Social History Tobacco Use Types Packs/Day Years Used Date Smoking Tobacco: Never Assessed Comments Unknown Sex and Gender Information Value Date Recorded Sex Assigned at Not on file Legal Sex Female 2:07 PM CDT Gender Identity Not on file Sexual Orientation Not on file documented as of this encounter Miscellaneous Notes * Cerner Conversion Note - Chano ProviderMD - 04/06/2019 9:49 AM CDT UM Authorization Entered On: 04/06/2019 9:51 EDT Performed On: 04/06/2019 9:49 EDT by ROSEY SANTILLAN, Milk Driver Primary Insurance Authorization Authorization and Policy Numbers : Insurance 1 Health Plan: [employer] Policy Number: [id number] Authorization Number: [id number] Insurance Primary Name : [employer] [id number] Authorization Fax Number-Primary : [phone] Auth/Referral Phone Number-Primary : [phone] ext [phone] Auth/Referral Contact Name-Primary : Saulo Hanks Authorized Service Begin Date-Primary : 04/05/2019 EDT Authorized Service End Date-Primary : 04/05/2019 EDT Observation Authorization Nbr-Primary : [id number] Authorization Comments-Primary : per [employer] OBS auth# [id number] Historical Authorization Comments-Primary : No Authorization Comments Found ROSEY SANTILLAN, Milk Driver - 04/06/2019 9:49 EDT documented in this encounter Plan of Treatment Not on file documented as of this encounter Visit Diagnoses Not on filedocumented in this encounter
--- OUTSIDE RECORDS SUMMARY | 2025-07-29 11:51 | XMS_ITS | Clinical Summary ---
Author Organization [facility] Address [address] [facility] [address] [place] [address] Phone Care Team Providers Care Mailer Apprentice Name Role Phone Status, Fax Unavailable Conditions or Problems Problem Name Problem Code Onset Date Status Entry Date Provider Comment Standard Description Annotate DIARRHEA 36753600 (SNOMED CT) Active 01/21 Isidoro Lau MD Diarrhea MORBID OBESITY 845807098 (SNOMED CT) Active 01/21 Cher Z Morbid obesity DIABETES MELLITUS 06592147 (SNOMED CT) Active 12/29 Isidoro Lau MD Diabetes mellitus APHASIA 74365095 (SNOMED CT) Active 12/29 Isidoro Lau MD Aphasia CVA 994108490 (SNOMED CT) Active 12/29 Irina Lau Cerebrovascular accident CONFUSION 76602091 (SNOMED CT) Active 12/29 Irina Lau Clouded consciousness ESRD 66095806 (SNOMED CT) Active 12/28 Dorita Connolly End-stage renal disease SWELLING IN HAND, LFT M79.89 (ICD-10-CM) Active 12/28 Dorita Connolly Other specified soft tissue disorders HAND PAIN, LEFT 33994789 (SNOMED CT) Active 12/28 Dorita Connolly Hand pain SWELLING MASS, LFT BASE OF EAR AND NECK R22.1 (ICD-10-CM) Active 12/28 Dorita Connolly Localized swelling, mass and lump, neck Medications Medication Instructions Start Date Stop Date Generic Name ND Provider LEVAQUIN TABS 8 LEVOFLOXACIN TABS 05585956611 Cher Z LEVAQUIN TABS 1 LEVOFLOXACIN TABS 06469834107 Giovana Holguin ULTRAM TABLET TRAMADOL HC L TABS 75916886754 Giovana Holguin PLAVIX TABS CLOPIDOGREL BISULFATE TABS 68020694615 Giovana Holguin NOVOLOG SOLUTION INSULIN ASPART SOLN 46905817536 Giovana Holguin LORTAB TABLET HYDROCODONE -ACET AMINOPHEN TABS 57276123295 Giovana Holguin LISINOPRIL TABS LISINOPRIL TABS 75122 043072 Giovana Holguin LEXAPRO TABS ESCITALOPRAM OXALATE TABS 27345816793 Giovana Holguin LANTUS SOLN INSULIN GLARG INE SOLN 20650622161 Giovana Holguin FLOVENT HFA AEROSOL FLUTICASONE PROPIONATE HFA AERO 91731732817 Giovana Holguin SEROQUEL TABS QUETIAPINE FUMARATE TABS 22276172412 Giovana Holguin LOPRESSOR TABS METOPROLOL TARTRATE TABS 56666505121 Giovana Holguin AMLODIPINE BESYLATE TABS AMLODIPINE BESYLATE TABS 12292689129 Giovana Holguin ACIPHEX TBEC RABEPRAZOLE SODIUM TBEC 90857451998 Giovana Holguin Medications Administered No information available. Allergies, Adverse Reactions, Alerts Allergy Name Reaction Description Start Date Severity Statu s Provider NSAIDS GI distress; bleeding Severe Active Irina Lau Results Date Name Value Unit Range Flag Description Clinical Lists Update: Prelo ad SMOK STATUS never smoker Tobacco smoking status Lab Report: Comprehensive Me tabolic Panel ANIONGAP 9 mmol/L 3-11 N anion gap, s tomasa GFRC 62 mL/min/1. 73m2 Glomerular Filtration Rate Calculation ALBUMIN 4.4 g/dL 3.4-4.8 N Albumin [Mass/volume] in Serum or Plasma PROTEIN, TOT 7.4 g/dL 6.4-8.3 N Protein [Mass/volume] in Serum or Plasma BILI TOTAL 0.3 mg/dL 0.3-1.2 N Bilirubin. total [Mass/volume] in Serum or Plasma SGPT (ALT) 17 U/L 7-40 N Alanine aminotransferase [Enzymatic activity/volume] in Serum or Plasma SGOT (AST) 20 U/L 8-33 N Aspartate aminotransferase [Enzymatic activity/volume] in Serum or Plasma ALK PHOS 67 U/L 25-100 N Alkaline bree sphatase [Enzymatic activity/volume] in Blood CALCIUM 9.8 mg/dL 8.7-10.4 N Calcium [Moles/volume] in Serum or Plasma CO2 32 mmol/L 20-31 H Carbon dioxid e, total [Moles/volume] in Venous blood CHLORIDE 102 mmol/L 98-107 N Chloride [Moles/volume] in Serum or Plasma POTASSIUM 4.6 mmol/L 3.4-5.4 N Potassium [Moles/volume] in Serum or Plasma SODIUM 143 mmol/L 136-145 N Sodium [Moles/volume] in Serum or Plasma BUN 16 mg/dL 6-20 N Urea nitrogen [Mass/volume] in Serum or Plasma GLUCOSE SER 160 mg/dL 70-100 H Glucose [Mass/volume] in Serum or Plasma Lab Report: C-Reactive Prote in CRPCARDRISK 17.400 mg/L 0.000-10. 0 H C reactive protein [Mass/volume] in Serum or Plasma Lab Report: ESR (Sed Rate) ESR 58 mm/h 0-30 H Erythrocyte sedimentation rate by Westergren method Lab Report: CBC w Auto Diff IMM GRANU % 0.6 % 0.0-0.6 N Immature granulocytes/100 leukocytes in Blood BASOPHIL % 0.5 % 0.0-1.0 N Basophils/ 100 leukocytes in Blood by Manual count % EOS AUTO 2.3 % 0.0-3.0 N Eosinophil s/100 leukocytes in Blood by Automated count MONOCYTE BF 8.5 % 0.0-12.0 N monocyte s as percent of body fluid leukocytes LYMPHS % 28.0 % 24.0-44.0 N Lymphocyte s/100 leukocytes in Blood by Automated count PMN % 60.1 % 41.0-71.0 N Neutrophils /100 leukocytes in Blood by Automated count [id number] 0.0 GE use only - for [employer] import when terms are not otherwise specified BASOABSOLMAN 0.04 K/MCL {Cells}/u L 0.00-0.20 N basophils, absolute, manual EOS ABSLT 0.20 10*3/uL 0.10-0.30 N Eosinophi ls [#/volume] in Blood MONOCYTABMAN 0.74 K/MCL {Cells}/u L 0.00-1.00 N monocytes, absolute, manual LYMPHSABSMAN 2.44 K/MCL {Cells}/u L 0.60-4.80 N lymphocytes, absolute, manual ABS NEUTROPH 5.25 10*3/uL 1.50-8.30 N Neutro phils [#/volume] in Blood PLATELETS 307 10*3/mm3 150-450 N Platelets [#/volume] in Blood by Automated count RDW_ 15.0 11.3-14.5 H RDW, no uni ts MCHC 31.3 G/DL 32.0-36.0 L MCHC [Mass/ volume] by Automated count MCH 26.4 pg 27.0-31.0 L MCH [Entiti c mass] by Automated count MCV 84.3 fL 80.0-99.0 N MCV [Entiti c volume] by Automated count HCT 39.6 % 34.5-44.0 N Hematocrit [Volume Fraction] of Blood by Automated count HGB 12.4 g/dL 11.5-15.5 N Hemoglobin [Mass/volume] in Blood RBC 4.70 M/MCL 10*6/mm3 3.89-5.14 N Erythro cytes [#/volume] in Blood by Automated count WBC 8.72 10*3/mm3 3.50-10.8 0 N Leukocytes [#/volume] in Blood by Automated count Lab Report: Creatinine, Whol e Blood CREATININE 0.8 mg/dL 0.6-1.3 N Creatinine [Mass/volume] in Serum or Plasma Office Visit: 1 MEDS REVIEW Done Documenta tion of current medications (procedure) Plan of Care Type Date Detail Pending order Other Pending order Continue oral an tibiotics Procedures No information available. Vital Signs Date Name Value Unit Description BMI (Body Mass Index) 46.89 kg/m2 Bod y Mass Index (Ratio) Body Temperature 97.9 [degF] temperat ure E&M BP Diastolic 60 mm[Hg] blood pressu re, diastolic BP Systolic 140 mm[Hg] blood pressur e, systolic Heart Rate 60 /min pulse rate Height 64 [in_us] height E&M Respiratory Rate 16 /min respirat ory rate E&M Weight Measured 272.2 [lb_av] weight E& M Weight Measured 272.2 [lb_av] weight E& M Immunizations No information available. Advance Directives No information available.
--- OUTSIDE RECORDS SUMMARY | 2025-07-29 11:51 | XMS_ITS | Encounter Summary ---
Author Organization [employer] ([place], [place], [place], [place]) Address [address] [place] [address] Care Team Providers Care Manager Of Pharmacy Name Role Phone Unavailable Primary Care Provider Unavailabl e Encounter Details Date Type Department Care Team (Late st Contact Info) Description 04/20/2019 Transcribed Document [facility] [address] [place] [address] ProviderChano MD [address] [place] [address] Social History Tobacco Use Types Packs/Day Years Used Date Smoking Tobacco: Never Assessed Comments Unknown Sex and Gender Information Value Date Recorded Sex Assigned at Not on file Legal Sex Female 2:07 PM CDT Gender Identity Not on file Sexual Orientation Not on file documented as of this encounter Miscellaneous Notes * Cerner Conversion Note - Chano Gatica MD - 04/20/2019 6:24 PM CDT [facility] [place] [address] LUDY ANTONIO Ileana :1950 Visit Time:04/20/2019 Your Visit Summary Your Care Team Admitting Physician - ADELE CRESPO MD Attending Physician - ADELE CRESPO MD Primary Care Physician - QUIRINO SENIOR (REF)[facility] Referring Physician - ADELE CRESPO MD Your Diagnosis Acute UTI Altered mental status Confusion Medical Information You may obtain a copy of your Emergency Department visit from Medical Records by calling the hospital phone number listed above and asking to be directed to the Medical Records Department. If you had special tests, such as EKG???s or X-rays, the interpretation of your tests given to you by the Emergency Department Physician is a preliminary report. Some fractures and illnesses fail to show up on preliminary tests. These will be reviewed again and we will call you if there are any new suggestions. If your symptoms continue notify your physician. After you leave, you should follow the instructions provided. What to do next Follow-Up Appointments Follow Up with QUIRINO (DOUG SENIOR When Within 2 to 3 days Where: [place] [address] [facility] (1) Allergies Avandia (CHF) NSAIDs fenofibrate metFORMIN statins (Fenofibrate, Fenofibrate) Immunizations This Visit No Immunizations Found Medications What How Much When Instructions Next Dose New cephalexin (Keflex 500 mg oral capsule) 1 Capsule(s) Oral Two Times A Day Duration: 7 Day(s) Printed Prescription The home medications listed are only as accurate as the information you provided. Please continue taking all of your medications prescribed by your Primary Care Provider unless specifically told to change or discontinue the medication. Please direct any questions regarding your home medications to your Primary Care Provider. Take your medications faithfully. Do NOT skip medication. Do NOT stop taking medications without the direction of a physician. Carry a list of your medications with you at all times, and take this medication list with you to your first follow up visit. Report any side effects. Avoid herbal remedies unless discussed with your physician. As part of your treatment plan, your physician may have prescribed a limited course of a controlled substance. This medication may be given to help people with moderate or severe pain or for other medical conditions, but there are risks involved with treatment. Common side effects may include nausea, constipation, drowsiness, sweating, itching, dry mouth, and rash. More serious side effects may include cognitive and motor impairment, like problems with thinking, concentrating, alertness, and movement (e.g. slowed reflexes), and driving and operating heavy machinery can be dangerous. It is important for you to talk to your physician if you have these side effects or questions. These controlled substances can produce physical dependence and be habit-forming if taken for an extended period of time, which means that the body has gotten used to them and may experience withdrawal symptoms if they are abruptly stopped. Withdrawal symptoms can include runny nose, sweating, goose bumps, diarrhea, abdominal cramping, rapid heartbeat, difficulty sleeping, and nervousness. Please dispose of unused and medications per pharmacy guidance. Test Results Laboratory or Other Results This Visit (last charted value for your 04/20/2019 visit) Hematology 04/20/19 16:38:00 WBC: 8.6 K/uL -- Normal range between ( 4.5 and 10.5 ) RBC: 4.37 Million/uL -- Normal range between ( 3.93 and 5.22 ) Hct: 39.8 % -- Normal range between ( 34.1 and 44.9 ) Hgb: 12.8 g/dL -- Normal range between ( 11.2 and 15.7 ) Platelet Count: 337 K/uL -- Normal range between ( 163 and 369 ) MCH: 29.3 pg -- Normal range between ( 25.6 and 32.2 ) MCHC: 32.2 Gram/dL -- Normal range between ( 32.2 and 36.5 ) MCV: 91.1 fL -- Normal range between ( 79.0 and 94.8 ) Slide Review: No Eos %: 1.8 % -- Normal range between ( 0.0 and 7.0 ) Kane #: 0.73 K/uL -- Normal range between ( 0.16 and 1.00 ) Eos #: 0.16 x10(3)/uL -- Normal range between ( 0.00 and 0.80 ) Kane %: 8.4 % -- Normal range between ( 3.0 and 9.0 ) Baso %: 0.6 % -- Normal range between ( 0.0 and 1.5 ) Baso #: 0.05 x10(3)/uL -- Normal range between ( 0.00 and 0.20 ) RDW: 13.2 % -- Normal range between ( 11.7 and 14.9 ) Neut %: 49.2 % -- Normal range between ( 34.0 and 71.0 ) Neut #: 4.25 K/uL -- Normal range between ( 1.56 and 6.13 ) Lymph %: 39.7 % -- Normal range between ( 19.3 and 53.1 ) Lymph #: 3.43 x10(3)/uL -- Normal range between ( 1.00 and 3.90 ) MPV: 9.0 fL -- Normal range between ( 9.4 and 12.4 ) IG#: 0.03 x10(3)/uL -- Normal range between ( 0.00 and 0.05 ) IG%: 0.30 % -- Normal range between ( 0.00 and 0.60 ) Urinalysis 04/20/19 16:38:00 Urine Nitrite: Negative Urine Leukocyte Esterase: Small Urine Appearance: Clear Urine Glucose Dipstick: Negative Urine Blood Dipstick: Negative Urine Urobilinogen Dipstick: 0.2 EU/dL Urine Protein Dipstick: Negative Ur Bacteria: Trace Ur Squamous Epithelial Cells: 2-5 /HPF Urine Color: Yellow Ur Transitional Epi Cells: 2-5 Ur WBC: 2-5 /HPF Urine Ketones Dipstick: Negative Ur Mucous: 1+ Urine pH Dipstick: 5.5 -- Normal range between ( 6.0 and 8.0 ) Urine Bilirubin Dipstick: Negative Urine Specific [place]: 1.017 -- Normal range between ( 1.005 and 1.030 ) Urine Type.: U CleanCatch General Chemistry 04/20/19 16:38:00 Creatinine Level: 1.10 mg/dL -- Normal range between ( 0.55 and 1.02 ) Sodium Level: 141 mmol/L -- Normal range between ( 136 and 146 ) Potassium Level: 4.0 mmol/L -- Normal range between ( 3.5 and 5.1 ) Chloride Level: 107 mmol/L -- Normal range between ( 102 and 112 ) Carbon Dioxide Level: 32 mmol/L -- Normal range between ( 21 and 32 ) Anion Gap: 6 -- Normal range between ( 9 and 20 ) Bilirubin Total: 0.2 mg/dL -- Normal range between ( 0.2 and 1.2 ) A/G Ratio: 0.9 -- Normal range between ( 1.1 and 2.5 ) ALT: 27 Units/Liter -- Normal range between ( 13 and 56 ) AST: 18 Units/Liter -- Normal range between ( 5 and 37 ) Globulin: 3.8 Gram/dL -- Normal range between ( 1.5 and 4.5 ) Alk Phos: 59 Units/Liter -- Normal range between ( 27 and 136 ) Bun/Creatinine: 20.0 -- Normal range between ( 8.0 and 20.0 ) Calcium Level: 9.5 mg/dL -- Normal range between ( 8.4 and 10.1 ) eGFR : 60 mL/min/1.73m2 eGFR NonAfrican: 49 mL/min/1.73m2 Glucose Level: 90 mg/dL -- Normal range between ( 74 and 106 ) Blood Urea Nitrogen: 22 mg/dL -- Normal range between ( 7 and 22 ) Lactic Acid Level: 1.0 mmol/L -- Normal range between ( 0.4 and 2.0 ) Protein Total: 7.2 Gram/dL -- Normal range between ( 6.4 and 8.2 ) Albumin Level: 3.4 Gram/dL -- Normal range between ( 3.4 and 5.0 ) Cardiac Specific Markers 04/20/19 16:38:00 Troponin I Ultra: <0.015 ng/mL -- Normal range between ( 0.015 and 0.045 ) Toxicology 04/20/19 17:05:00 %Alcohol: <.00 Alcohol: <3 mg/dL 04/20/19 16:55:00 UDS Amp: NEGATIVE UDS Nadja: NEGATIVE UDS Benzo: POSITIVE UDS Marshal: NEGATIVE UDS Opi: POSITIVE UDS PCP: NEGATIVE UDS TCA: NEGATIVE UDS THC: NEGATIVE UDS pH: 6.0 Computed Tomography 04/20/19 17:13:31 CT Head WO: CT Head WO Education Materials Urinary Tract Infection, Adult A urinary tract infection (UTI) is an infection of any part of the urinary tract, which includes the kidneys, ureters, bladder, and urethra. These organs make, store, and get rid of urine in the body. UTI can be a bladder infection (cystitis) or kidney infection (pyelonephritis). What are the causes? This infection may be caused by fungi, viruses, or bacteria. Bacteria are the most common cause of UTIs. This condition can also be caused by repeated incomplete emptying of the bladder during urination. What increases the risk? This condition is more likely to develop if: ??? You ignore your need to urinate or hold urine for long periods of time. ??? You do not empty your bladder completely during urination. ??? You wipe back to front after urinating or having a bowel movement, if you are female. ??? You are uncircumcised, if you are male. ??? You are constipated. ??? You have a urinary catheter that stays in place (indwelling). ??? You have a weak defense (immune) system. ??? You have a medical condition that affects your bowels, kidneys, or bladder. ??? You have diabetes. ??? You take antibiotic medicines frequently or for long periods of time, and the antibiotics no longer work well against certain types of infections (antibiotic resistance). ??? You take medicines that irritate your urinary tract. ??? You are exposed to chemicals that irritate your urinary tract. ??? You are female. What are the signs or symptoms? Symptoms of this condition include: ??? Fever. ??? Frequent urination or passing small amounts of urine frequently. ??? Needing to urinate urgently. ??? Pain or burning with urination. ??? Urine that smells bad or unusual. ??? Cloudy urine. ??? Pain in the lower abdomen or back. ??? Trouble urinating. ??? Blood in the urine. ??? Vomiting or being less hungry than normal. ??? Diarrhea or abdominal pain. ??? Vaginal discharge, if you are female. How is this diagnosed? This condition is diagnosed with a medical history and physical exam. You will also need to provide a urine sample to test your urine. Other tests may be done, including: ??? Blood tests. ??? Sexually transmitted disease (STD) testing. If you have had more than one UTI, a cystoscopy or imaging studies may be done to determine the cause of the infections. How is this treated? Treatment for this condition often includes a combination of two or more of the following: ??? Antibiotic medicine. ??? Other medicines to treat less common causes of UTI. ??? Evtb-hmw-kitkxqw medicines to treat pain. ??? Drinking enough water to stay hydrated. Follow these instructions at home: ??? Take hzzx-guf-reayafc and prescription medicines only as told by your health care provider. ??? If you were prescribed an antibiotic, take it as told by your health care provider. Do not stop taking the antibiotic even if you start to feel better. ??? Avoid alcohol, caffeine, tea, and carbonated beverages. They can irritate your bladder. ??? Drink enough fluid to keep your urine clear or pale yellow. ??? Keep all follow-up visits as told by your health care provider. This is important. ??? Make sure to: ? Empty your bladder often and completely. Do not hold urine for long periods of time. ? Empty your bladder before and after sex. ? Wipe from front to back after a bowel movement if you are female. Use each tissue one time when you wipe. Contact a health care provider if: ??? You have back pain. ??? You have a fever. ??? You feel nauseous or vomit. ??? Your symptoms do not get better after 3 days. ??? Your symptoms go away and then return. Get help right away if: ??? You have severe back pain or lower abdominal pain. ??? You are vomiting and cannot keep down any medicines or water. This information is not intended to replace advice given to you by your health care provider. Make sure you discuss any questions you have with your health care provider. Document Released: 07/02/2006 Document Revised: 03/17/2018 Document Reviewed: 08/12/2016 [employer] Interactive Patient Education ?? 2019 [employer] Confusion Confusion is the inability to think with your usual speed or clarity. Confusion may come on quickly or slowly over time. How quickly the confusion comes on depends on the cause. Confusion can be due to any number of causes. What are the causes? Concussion, head injury, or head trauma. ??? Seizures. ??? Stroke. ??? Fever. ??? Brain tumor. ??? Age related decreased brain function (dementia). ??? Heightened emotional states like rage or terror. ??? Mental illness in which the person loses the ability to determine what is real and what is not (hallucinations). ??? Infections such as a urinary tract infection (UTI). ??? Toxic effects from alcohol, drugs, or prescription medicines. ??? Dehydration and an imbalance of salts in the body (electrolytes). ??? Lack of sleep. ??? Low blood sugar (diabetes). ??? Low levels of oxygen from conditions such as chronic lung disorders. ??? Drug interactions or other medicine side effects. ??? Nutritional deficiencies, especially niacin, thiamine, vitamin C, or vitamin B. ??? Sudden drop in body temperature (hypothermia). ??? Change in routine, such as when traveling or hospitalized. What are the signs or symptoms? People often describe their thinking as cloudy or unclear when they are confused. Confusion can also include feeling disoriented. That means you are unaware of where or who you are. You may also not know what the date or time is. If confused, you may also have difficulty paying attention, remembering, and making decisions. Some people also act aggressively when they are confused. How is this diagnosed? The medical evaluation of confusion may include: ??? Blood and urine tests. ??? X-rays. ??? Brain and nervous system tests. ??? Analyzing your brain waves (electroencephalogram or EEG). ??? Magnetic resonance imaging (MRI) of your head. ??? Computed tomography (CT) scan of your head. ??? Mental status tests in which your health care provider may ask many questions. Some of these questions may seem silly or strange, but they are a very important test to help diagnose and treat confusion. How is this treated? An admission to the hospital may not be needed, but a person with confusion should not be left alone. Stay with a family member or friend until the confusion clears. Avoid alcohol, pain relievers, or sedative drugs until you have fully recovered. Do not drive until directed by your health care provider. Follow these instructions at home: What family and friends can do: ??? To find out if someone is confused, ask the person to state his or her name, age, and the date. If the person is unsure or answers incorrectly, he or she is confused. ??? Always introduce yourself, no matter how well the person knows you. ??? Often remind the person of his or her location. ??? Place a calendar and clock near the confused person. ??? Help the person with his or her medicines. You may want to use a pill box, an alarm as a reminder, or give the person each dose as prescribed. ??? Talk about current events and plans for the day. ??? Try to keep the environment calm, quiet, and peaceful. ??? Make sure the person keeps follow-up visits with his or her health care provider. How is this prevented? Ways to prevent confusion: ??? Avoid alcohol. ??? Eat a balanced diet. ??? Get enough sleep. ??? Take medicine only as directed by your health care provider. ??? Do not become isolated. Spend time with other people and make plans for your days. ??? Keep careful watch on your blood sugar levels if you are diabetic. Get help right away if: ??? You develop severe headaches, repeated vomiting, seizures, blackouts, or slurred speech. ??? There is increasing confusion, weakness, numbness, restlessness, or personality changes. ??? You develop a loss of balance, have marked dizziness, feel uncoordinated, or fall. ??? You have delusions, hallucinations, or develop severe anxiety. ??? Your family members think you need to be rechecked. This information is not intended to replace advice given to you by your health care provider. Make sure you discuss any questions you have with your health care provider. Document Released: 10/30/2005 Document Revised: 04/11/2017 Document Reviewed: 10/28/2014 [employer] Interactive Patient Education ?? 2019 [employer]. Emergency Awareness and Preventative Care STROKE is an EMERGENCY Every Minute Counts Act FAST and Check for these signs: FACE Does the face look uneven? ARM Does one arm drift down? SPEECH Does their speech sound strange? TIME Call at any sign of stroke Stroke Risk Factors Atrial Fibrillation (irregular heartbeat) Diabetes Family history of stroke Heart Disease Heavy alcohol use High Blood Pressure High Cholesterol Physical inactivity and obesity Smoking Cigarette Smoking The facts are clear, cigarette smoking will shorten your life. Smoking can cause many illnesses along the way. As a healthcare provider, we recommend that you stop smoking. Assistance with quitting is available by contacting 7-804-QUII-NOW. This is a free resource providing counseling, support, and referral. Or you may contact your personal physician. National Suicide Prevention Lifeline: The National Suicide Prevention Lifeline is a national network of local crisis centers that provides free and confidential emotional support to people in suicidal crisis or emotional distress 24 hours a day, 7 days a week. Don't Wait! Stop a Heart Attack Before it Starts What is a heart attack? A heart attack is damage or to a part of the heart from severely decreased or lack of blood flow to the heart. Over time, arteries can become narrow from the buildup of fat and cholesterol, which is called plaque. The plaque can rupture causing a blood clot to form. When the blood clot forms, the artery can become severely narrowed or completely blocked, causing a heart attack. Heart attack is the leading cause of in the [place]. 85% of muscle damage occurs within the first 2 hours. Delay in the recognition of heart attack symptoms increases the chances of . Know the early symptoms of a heart attack: Nausea Feeling of fullness in chest Jaw Pain Pain that travels down one or both arms Fatigue/being tired Anxiety Back Pain Chest pressure, squeezing, or discomfort Shortness of breath Sweating, or a cold sweat Feeling of impending doom There are unusual signs of a heart attack, too! Women, the elderly, and diabetics may present with atypical symptoms: Fainting/dizziness Weakness Confusion Risk Factors for a Heart Attack Some heart disease risk factors, such as age and family history, cannot be changed. Others, like smoking and lack of exercise, can be changed. Smoking High Cholesterol High Blood Pressure Family History Obesity Age Gender (Males are at higher risk) Lack of Exercise Diabetes Diet Stress Excessive Alcohol Intake If you or someone you know is experiencing the signs and symptoms of a heart attack, DON???T DELAY. Call immediately and seek help. If someone collapses, perform CPR! Do not attempt to drive if you are having symptoms of heart attack. Hands-Only CPR Why Hands-Only CPR? Hands-Only CPR has been shown to be as effective as conventional CPR for cardiac arrests that occur outside of a hospital. Survival depends on immediately receiving CPR from someone nearby. How do you perform Hands-Only CPR? There are two easy steps: Call if you see a teen or adult collapse Push hard and fast in the center of the chest at a beat of 100 beats per minute. Save a life! 4 WAYS TO GET AHEAD OF SEPSIS SEPSIS is a MEDICAL EMERGENCY. Time matters! Infections put you and your family at risk for a life-threatening condition called sepsis. Sepsis is the body's extreme response to an infection. It is life-threatening, and without timely treatment, sepsis can rapidly lead to tissue damage, organ failure, and . Sepsis happens when an infection you already have-in your skin, lungs, urinary tract or somewhere else-triggers a chain reaction throughout your body. 1 PREVENT INFECTIONS Take good care of chronic conditions. Talk to your doctor about getting the recommended vaccines. 2 PRACTICE GOOD HYGIENE Wash your hands frequently. Keep cuts or open sores clean and covered until they are healed. 3 KNOW THE SYMPTOMS Confusion or disorientation Shortness of breath High heart rate Fever, shivering, or feeling very cold Extreme pain or discomfort Clammy or sweaty skin 4 ACT FAST Get medical care IMMEDIATELY if you suspect sepsis or if you have an infection that is not getting better or is getting worse. To learn more about sepsis and how to prevent infections, visit www.cdc.gov/sepsis. The examination and treatment you have received in the Emergency Department has been done to provide an appropriate evaluation and stabilizing treatment on an emergency basis only. Given the limited resources, it is not meant to be a substitute for complete medical care. The follow-up doctor you named will receive a copy of your records and all test reports. IT IS IMPORTANT THAT YOU SCHEDULE A FOLLOW-UP APPOINTMENT AND ARE RE-EVALUATED. You should report any new complaints, symptoms, or remaining problems at that time. IT IS IMPOSSIBLE FOR THE EMERGENCY DEPARTMENT TO RECOGNIZE AND TREAT ALL ELEMENTS OF INJURY OR ILLNESS IN A SINGLE VISIT. If you have been referred to a specialist physician, it means that we believe you may have a condition that requires the expertise of a specialist. These physicians work in partnership with the hospital and have agreed to see referred patients in their office for further evaluation. KEEP IN MIND THAT THE SPECIALIST HAS HIS/HER OWN OFFICE POLICIES WHICH MAY REQUIRE PROPER INSURANCE OR PAYMENT UP FRONT BEFORE THE SPECIALIST WILL SEE YOU. It is your responsibility to call the specialist physician to make an appointment. We do not have the ability to refer patients to specialists/physicians that work with specific insurance companies. Please be advised that all financial charges or billing practices are determined by that practice, not the hospital. If your insurance company requires that you see a specialist from their approved list, it is your responsibility to contact your insurance company to make those arrangements. It is also your responsibility to follow any other requirements of your insurance company necessary to obtain coverage for claims submitted. We will bill your insurance; however, you are responsible today for any co-pay amounts. You will receive a separate bill for any services you may have received including: emergency, radiology, or pathology physicians. Patient Name:LUDY ANTONIO I have received this information and was given the opportunity to ask questions. Patient/Defensive Driving Instructor Name: Patient/Defensive Driving Instructor Signature: Relationship to Patient: Clinician/Hospital Defensive Driving Instructor Signature: Please Provide a Telephone Number Where You Can Be Reached: Is it Permissible To Leave a Message? Date: Electronically signed by Summer, [facility] Conversion Associate Account Executive Wade at 01/23/2023 1:15 PM CDT documented in this encounter Plan of Treatment Not on file documented as of this encounter Visit Diagnoses Not on filedocumented in this encounter
--- OUTSIDE RECORDS SUMMARY | 2025-07-29 11:51 | XMS_ITS | Encounter Summary ---
Author Organization [employer] ([place], [place], [place], [place]) Address [address] [place] [address] Care Team Providers Care Hand Trucker Name Role Phone Unavailable Primary Care Provider Unavailabl e Encounter Details Date Type Department Care Team (Late st Contact Info) Description 04/20/2019 Transcribed Document [facility] [place] Family Medicine [facility] [place] [address] ProviderChano MD [address], [place] [phone] Social History Tobacco Use Types Packs/Day Years Used Date Smoking Tobacco: Never Assessed Comments Unknown Sex and Gender Information Value Date Recorded Sex Assigned at Not on file Legal Sex Female 2:07 PM CDT Gender Identity Not on file Sexual Orientation Not on file documented as of this encounter Miscellaneous Notes * Cerner Conversion Note - Historical ProviderMD - 04/20/2019 4:55 PM CDT Patient: LUDY ANTONIO Age: 68 years Sex: Female : 1950 Associated Diagnoses: Acute UTI; Confusion Author: ADELE CRESPO MD Basic Information History source: Patient, family. Arrival mode: Ambulance-ALS. Additional information: Chief Complaint from Nursing Triage Note : Chief Complaint 04/20/2019 16:31 EDT Chief Complaint pt c/o AMS and generalized weakness x1 wk. pt had back sx here 2 wks ago. . History of Present Illness The patient presents with altered mental status and confusion. The onset was 1 weeks ago. The course/duration of symptoms is worsening. The character of symptoms is confused. The degree at onset was minimal. The degree at present is moderate. Baseline status: disoriented, confused, baseline confusion from prior CVA. Risk factors consist of diabetes mellitus, hypertension and recent back surgery. Review of Systems Constitutional symptoms: Weakness, fatigue, no fever, no chills, no sweats. Skin symptoms: No rash, Eye symptoms: Vision unchanged, no pain, no discharge, no blurred vision. ENMT symptoms: No ear pain, no sore throat, no nasal congestion. Respiratory symptoms: No shortness of breath, no cough. Cardiovascular symptoms: No chest pain, no palpitations, no syncope. Gastrointestinal symptoms: No abdominal pain, no nausea, no vomiting, no diarrhea. Genitourinary symptoms: No dysuria, no hematuria. Musculoskeletal symptoms: No back pain, no Joint pain. Neurologic symptoms: No headache, no dizziness, no numbness, no weakness. Health Status Allergies: Allergic Reactions (Selected) Severity Not Documented Avandia- Chf. Fenofibrate- No reactions were documented. MetFORMIN- No reactions were documented. NSAIDs- No reactions were documented. Statins- Fenofibrate and fenofibrate.. Medications: (Selected) Documented Medications Documented Aciphex: 20 mg, Oral, BID Advair Diskus 250 mcg-50 mcg inhalation powder: 1 Puff, Inhalation, Daily, PRN: as needed, 0 Refill(s) Centrum: 1 Tab, Oral, Daily Cymbalta 60 mg oral delayed release capsule: 1 Cap, Oral, At Bedtime, (do not crush or chew) Flonase 0.05 mg/inh nasal spray: 2 Saxon, Nasal, Daily, 16 Gram, 0 Refill(s) Lantus: 60 Units, SubCutaneous, At Bedtime, 0 Refill(s) Lasix 20 mg oral tablet: 1 Tab, Oral, Daily, weight gain/fluid retention, PRN: Other (See Comment), 0 Refill(s) NovoLog: SubCutaneous, TIDAC, 3 times a day- sliding scale., 0 Refill(s) Plavix 75 mg oral tablet: 1 Tab, Oral, Daily, 30 Tab, 0 Refill(s) Ultram 50 mg oral tablet: 2 Tab, Oral, Q6H, PRN: for pain Vitamin D3: 50,000 Int Units, Oral, See Comment, friday and friday, 0 Refill(s) lisinopril 40 mg oral tablet: 1 Tab, Oral, At Bedtime, 0 Refill(s) loratadine 10 mg oral tablet: 1 Tab, Oral, At Bedtime, 30 Tab, 0 Refill(s) metoprolol tartrate: 6.25 mg, Oral, At Bedtime, 0 Refill(s) oxyCODONE 10 mg oral tablet: 1 Tab, Oral, Q6H, PRN: as needed for pain, 0 Refill(s) potassium chloride-sodium chloride: 20 mEq, Oral, Daily, taken as needed with lasix, PRN: Other (See Comment), 0 Refill(s). Past Medical/ Family/ Social History Surgical history: heart catheterization in 2013 at 63 Years. Comments: 06/24/2013 07:44 - MIGEL GARCIA RN negative cath left hip replacement in 2011 at 62 Years. right and left shoulder repair. achilles repair. Appendectomy (SNOMED CT 425037829). Cholecystectomy (SNOMED CT 03723031). Tonsillectomy (SNOMED CT 144041844)., Reviewed as documented in chart. Family history: No family history items have been selected or recorded., Reviewed as documented in chart. Social history: Social & Psychosocial Habits Alcohol 06/24/2013 Alcohol Use in Last Twelve Months No Employment/School 07/17/2014 Status: Retired Previous employment/school: [employer] Home/Environment 07/17/2014 Lives with: Spouse Living situation: Home with assistance Substance Abuse 06/24/2013 Recreational Drug Use History No Tobacco 06/24/2013 Tobacco Use Within Last Twelve Months Cigarettes Smoking Status Former smoker Years of Tobacco Use 1 Packs/Tins Daily 0.5 Month Tobacco Last Used teenager , Reviewed as documented in chart. Problem list: Active Problems (24) Acid reflux Allergic asthma [...] Right leg pain Sleep apnea///risk Wears glasses , per nurse's notes. Physical Examination Vital Signs Vital Signs/Vital Measures 04/20/2019 16:48 EDT Systolic Blood Pressure 136 mmHg Diastolic Blood Pressure 57 mmHg LOW Temperature Source Oral Temperature Mode Fahrenheit Temperature, Fahrenheit 98.6 Deg F Clinical Temperature, C 37 Deg C Heart Rate Monitored 84 bpm Respiratory Rate 20 Breaths/Min Oxygen Saturation 95 % Oxygen Therapy Mode Room air . Measurements 04/20/2019 16:31 EDT Height Source Stated Height Entry Format Devin Height/Length, TRISTANIAN (ft) 5 ft Height/Length TRISTANIAN 4 Inch CLINICALHEIGHT 162.56 cm [place] Body Weight 54.3 kg Weight Source, ED Critical estimated dosing weight Weight Entry Format [place] Weight [place]ian lb 240 lb CLINICALWEIGHT 109.09 kg Body Surface Area (BSA) 2.12 m2 Body Mass Index 41.3 kg/m2 >HHI . Oxygen Saturation 04/20/2019 16:48 EDT Oxygen Saturation 95 % . General: Alert, no acute distress. [place] coma scale: Eye response: 4 /4, verbal response: 5 /5, motor response: 6 /6, Total score: Total score: 15. Neurological: No focal neurological deficit observed, CN II-XII intact, mild confusion. Skin: Warm. Head: Normocephalic. Neck: Supple. Eye: Sclera: not icteric. Ears, nose, mouth and throat: Oral mucosa moist. Cardiovascular: Regular rate and rhythm, No murmur, Normal peripheral perfusion, No edema. Respiratory: Lungs are clear to auscultation, respirations are non-labored, breath sounds are equal. Chest wall: No tenderness. Back: Nontender. Gastrointestinal: Soft, Nontender, Non distended, Normal bowel sounds. Lymphatics: No lymphadenopathy. Psychiatric: Cooperative. Medical Decision Making Documents reviewed: Emergency department nurses' notes. Electrocardiogram: Time 04/20/2019 16:47:00, rate 83, normal sinus rhythm, No ST changes, no ectopy, normal FL & QRS intervals, EP Interp. Results review: Labs (Last four charted values) WBC 8.6 (APR 20) HB 12.8 (APR 20) HCT 39.8 (APR 20) Plt 337 (APR 20) Na 141 (APR 20) K 4.0 (APR 20) Cl 107 (APR 20) CO2 32 (APR 20) BUN 22 (APR 20) Cr H 1.10 (APR 20) Glu R 90 (APR 20) Ca 9.5 (APR 20) Lactic 1.0 (APR 20) AST 18 (APR 20) ALT 27 (APR 20) ALK P 59 (APR 20) T Bili 0.2 (APR 20) PTN 7.2 (APR 20) ALB 3.4 (APR 20) Troponin <0.015 (APR 20) . Radiology results: Radiology Results (Last 48 hours) [id number] -- 04/20/2019 16:29 CT Head WO (04/20/2019 17:13) Result: STUDY: CT Head without contrast.CLINICAL HISTORY: Altered mental statusFINDINGS: Multiple contiguous transaxial slices through the head wereobtained without the intravenous administration of contrast with coronalreformatted images. This study was performed with techniques to keepradiation doses as low as reasonably achievable, (ALARA). Individualizeddose reduction techniques using automated exposure control or adjustmentof mA and/or kV according to the patient size were employed.There is age appropriate cortical atrophy with associated ventricularenlargement without acute infarct, hemorrhage or mass effect. There isencephalomalacia in the left temporal and parietal lobes from priorinfarct. Periventricular white matter small vessel disease is present. There is no sinus air fluid level. The calvarium is intact.IMPRESSION: 1. No acute intracranial abnormality. If concern persists, recommendMRI.2. Old left temporal and parietal infarcts . Impression and Plan Diagnosis Acute UTI - Discharge, Medical Confusion - Discharge, Medical Plan Condition: Stable. Disposition: Discharged Admit/Transfer/Discharge: Discharge (Order): Start: 04/20/2019 18:10 EDT, Discharge to: Home. Prescriptions: Launch Meds List (Selected) Inpatient Medications Ordered Rocephin: 1 Gram, 100 mL/Hr, IV Piggyback, 1-Time Tylenol: 650 mg, Oral, 1-Time Prescriptions Prescribed Keflex 500 mg oral capsule: 1 Cap, Oral, BID, for 7 Day(s), 14 Cap, 0 Refill(s) Documented Medications Documented Aciphex: 20 mg, Oral, BID Advair Diskus 250 mcg-50 mcg inhalation powder: 1 Puff, Inhalation, Daily, PRN: as needed, 0 Refill(s) Centrum: 1 Tab, Oral, Daily Cymbalta 60 mg oral delayed release capsule: 1 Cap, Oral, At Bedtime, (do not crush or chew) Flonase 0.05 mg/inh nasal spray: 2 Saxon, Nasal, Daily, 16 Gram, 0 Refill(s) Lantus: 60 Units, SubCutaneous, At Bedtime, 0 Refill(s) Lasix 20 mg oral tablet: 1 Tab, Oral, Daily, weight gain/fluid retention, PRN: Other (See Comment), 0 Refill(s) NovoLog: SubCutaneous, TIDAC, 3 times a day- sliding scale., 0 Refill(s) Plavix 75 mg oral tablet: 1 Tab, Oral, Daily, 30 Tab, 0 Refill(s) Ultram 50 mg oral tablet: 2 Tab, Oral, Q6H, PRN: for pain Vitamin D3: 50,000 Int Units, Oral, See Comment, friday and friday, 0 Refill(s) lisinopril 40 mg oral tablet: 1 Tab, Oral, At Bedtime, 0 Refill(s) loratadine 10 mg oral tablet: 1 Tab, Oral, At Bedtime, 30 Tab, 0 Refill(s) metoprolol tartrate: 6.25 mg, Oral, At Bedtime, 0 Refill(s) oxyCODONE 10 mg oral tablet: 1 Tab, Oral, Q6H, PRN: as needed for pain, 0 Refill(s) potassium chloride-sodium chloride: 20 mEq, Oral, Daily, taken as needed with lasix, PRN: Other (See Comment), 0 Refill(s). Patient was given the following educational materials: Confusion, Urinary Tract Infection, Adult. Follow up with: [facility] (REF) Within 2 to 3 days. Counseled: Patient, Family, Regarding diagnosis, Regarding diagnostic results, Regarding treatment plan, Regarding prescription, Patient indicated understanding of instructions. Notes: Patient presented with mild generalized weakness not confusion. states the patient does have confusion at baseline since a prior CVA however seemed to be a little bit worse today and for the past week. No acute findings on exam, CT, or labs. Patient found to have a UTI. Given IV Rocephin and discharged home with Keflex. Follow with PCP and given clear return precautions. Afebrile vital signs are stable no signs of sepsis.. documented in this encounter Plan of Treatment Not on file documented as of this encounter Visit Diagnoses Not on filedocumented in this encounter
--- OUTSIDE RECORDS SUMMARY | 2025-07-29 11:51 | XMS_ITS | Encounter Summary ---
Author Organization [employer] ([place], [place], [place], [place]) Address [address] [place] [address] Care Team Providers Care News Director Name Role Phone Unavailable Primary Care Provider Unavailabl e Encounter Details Date Type Department Care Team (Late st Contact Info) Description 04/20/2019 Transcribed Document [facility] [place] Family Medicine [facility] [place] [address] ProviderChano MD [address], [place] [phone] Social History Tobacco Use Types Packs/Day Years [...] ProviderMD - 04/20/2019 4:29 PM CDT ED Triage Entered On: 04/20/2019 16:35 EDT Performed On: 04/20/2019 16:31 EDT by Magda Egan Rn ED Triage Across the Room Triage Date/Time : 04/20/2019 16:31 EDT Chief Complaint : pt c/o AMS and generalized weakness x1 wk. pt had back sx here 2 wks ago. Magda Egan Rn - 04/20/2019 16:31 EDT DCP GENERIC CODE Tracking Acuity : 2 - Emergent Tracking Group : [facility] ED Magda Egan Rn - 04/20/2019 16:31 EDT Mode of Arrival : Ambulatory Transported to ED by : Private vehicle To Room Via : Wheelchair Accompanied By : Spouse Height & Weight : Document ED Allergies : Document ED Reason for Visit : Document Tetanus Immunization : Less than 5 years Tried to Harm Yourself in the Past? : No Thoughts of Harming/Killing Yourself : No Magda Egan Rn - 04/20/2019 16:31 EDT Infectious Disease History Infectious Disease History : Chicken pox/Shingles, Measles, Mumps Fever/Chills Last 48 Hours : No Travel To Regions with Travel Advisories : No Travel Outside [place] Within Last 30 Days : No Contact With Traveler to Advisory Region : No Tuberculosis Symptoms : None Magda Egan Rn - 04/20/2019 16:31 EDT Allergy (As Of: 04/20/2019 16:35:02 EDT) Allergies (Active) Avandia Estimated Onset Date: Unspecified ; Reactions: CHF ; Created By: BONI FARMER RN; Reaction Status: Active ; Category: Drug ; Substance: Avandia ; Type: Allergy ; Updated By: BONI FARMER RN; Reviewed Date: 04/20/2019 16:32 EDT fenofibrate Estimated Onset Date: Unspecified ; Created By: LIZ VILLEGAS; Reaction Status: Active ; Category: Drug ; Substance: fenofibrate ; Type: Allergy ; Updated By: LIZ VILLGEAS; Reviewed Date: 04/20/2019 16:32 EDT metFORMIN Estimated Onset Date: Unspecified ; Created By: LIZ VILLEGAS; Reaction Status: Active ; Category: Drug ; Substance: metFORMIN ; Type: Allergy ; Updated By: LIZ VILLEGAS; Reviewed Date: 04/20/2019 16:32 EDT NSAIDs Estimated Onset Date: Unspecified ; Created By: LIZ VILLEGAS; Reaction Status: Active ; Category: Drug ; Substance: NSAIDs ; Type: Allergy ; Updated By: LIZ VILLEGAS; Reviewed Date: 04/20/2019 16:32 EDT statins Estimated Onset Date: Unspecified ; Reactions: Fenofibrate, Fenofibrate ; Created By: LIZ VILLEGAS; Reaction Status: Active ; Category: Drug ; Substance: statins ; Type: Allergy ; Updated By: LIZ VILLEGAS; Reviewed Date: 04/20/2019 16:32 EDT Diagnosis Control ED (As Of: 04/20/2019 16:35:02 EDT) Problems(Active) Acid reflux (SNOMED CT :502395164 ) Name of Problem: Acid reflux ; Recorder: MIGEL GARCIA RN; Confirmation: Confirmed ; Classification: Patient Stated ; Code: [id number] ; Contributor System: PowerChart ; Last Updated: 03/17/2014 19:28 EDT ; Life Cycle Date: 06/24/2013 ; Life Cycle Status: Active ; Vocabulary: SNOMED CT Allergic asthma (SNOMED CT :3247313820 ) Name of Problem: Allergic asthma ; Recorder: MIGEL GARCIA RN; Confirmation: Confirmed ; Classification: Patient Stated ; Code: 6217098704 ; Contributor System: PowerChart ; Last Updated: 03/17/2014 19:28 EDT ; Life Cycle Date: 06/24/2013 ; Life Cycle Status: Active ; Vocabulary: SNOMED CT Arthritis (SNOMED CT :7023319 ) Name of Problem: Arthritis ; Recorder: MIGEL GARCIA RN; Confirmation: Confirmed ; Classification: Patient Stated ; Code: 7039133 ; Contributor System: PowerChart ; Last Updated: 03/17/2014 19:28 EDT ; Life Cycle Date: 06/24/2013 ; Life Cycle Status: Active ; Vocabulary: SNOMED CT At risk for sleep apnea (IMO :13488719 ) Name of Problem: At risk for sleep apnea ; Recorder: SYSTEM, SYSTEM; Confirmation: Confirmed ; Classification: Medical ; Code: [id number] ; Last Updated: 04/01/2019 10:50 EDT ; Life Cycle Date: 04/01/2019 ; Life Cycle Status: Active ; Vocabulary: IMO Back pain (SNOMED CT :5843376663 ) Name of Problem: Back pain ; Recorder: BIANKA DUNN RN; Confirmation: Confirmed ; Classification: Medical ; Code: 3211378392 ; Contributor System: PowerChart ; Last Updated: 04/01/2019 10:23 EDT ; Life Cycle Date: 04/01/2019 ; Life Cycle Status: Active ; Vocabulary: SNOMED CT BP+ - Hypertension (SNOMED CT :378228465 ) Name of Problem: BP+ - Hypertension ; Recorder: MIGEL GARCIA RN; Confirmation: Confirmed ; Classification: Patient Stated ; Code: 368008808 ; Contributor System: PowerChart ; Last Updated: 03/22/2014 10:58 EDT ; Life Cycle Date: 06/24/2013 ; Life Cycle Status: Active ; Vocabulary: SNOMED CT Cataract///beginning stage (SNOMED CT :825452389 ) Name of Problem: Cataract///beginning stage ; Recorder: BIANKA DUNN RN; Confirmation: Confirmed ; Classification: Medical ; Code: 093775261 ; Contributor System: MAZChart ; Last Updated: 04/01/2019 10:22 EDT ; Life Cycle Date: 04/01/2019 ; Life Cycle Status: Active ; Vocabulary: SNOMED CT Chest pain///cath negative (SNOMED CT :74752057 ) Name of Problem: Chest pain///cath negative ; Onset Date: 2012 ; Recorder: BIANKA DUNN RN; Confirmation: Confirmed ; Classification: Medical ; Code: 69667179 ; Contributor System: MAZChart ; Last Updated: 04/01/2019 10:27 EDT ; Life Cycle Date: 04/01/2019 ; Life Cycle Status: Active ; Vocabulary: SNOMED CT Colon polyps (SNOMED CT :213386282 ) Name of Problem: Colon polyps ; Recorder: BIANKA DUNN RN; Confirmation: Confirmed ; Classification: Medical ; Code: 309313404 ; Contributor System: PowerChart ; Last Updated: 04/01/2019 10:22 EDT ; Life Cycle Date: 04/01/2019 ; Life Cycle Status: Active ; Vocabulary: SNOMED CT Completely occulded L carotid (SNOMED CT :8062879785 ) Name of Problem: Completely occulded L carotid ; Recorder: STEPHANIE ARREGUIN RN; Confirmation: Confirmed ; Classification: Medical ; Code: [id number] ; Contributor System: PowerChart ; Last Updated: 04/23/2016 17:54 EDT ; Life Cycle Date: 04/25/2015 ; Life Cycle Status: Active ; Vocabulary: SNOMED CT Congestive heart failure - due to Avandia resolved (SNOMED CT :65711159 ) Name of Problem: Congestive heart failure - due to Avandia resolved ; Recorder: MIGEL GARCIA RN; Confirmation: Confirmed ; Classification: Patient Stated ; Code: 97734495 ; Contributor System: MAZChart ; Last Updated: 04/23/2016 17:53 EDT ; Life Cycle Date: 06/24/2013 ; Life Cycle Status: Active ; Vocabulary: SNOMED CT ; Comments: 06/24/2013 10:32 - MIGEL GARCIA RN per pt and DM - Diabetes mellitus (SNOMED CT :369992841 ) Name of Problem: DM - Diabetes mellitus ; Recorder: MIGEL GARCIA RN; Confirmation: Confirmed ; Classification: Patient Stated ; Code: 803829080 ; Contributor System: PowerChart ; Last Updated: 03/22/2014 10:54 EDT ; Life Cycle Date: 06/24/2013 ; Life Cycle Status: Active ; Vocabulary: SNOMED CT Dyslipidemia (SNOMED CT :2920585602 ) Name of Problem: Dyslipidemia ; Recorder: MIGEL GARCIA RN; Confirmation: Confirmed ; Classification: Patient Stated ; Code: 5242015060 ; Contributor System: PowerChart ; Last Updated: 03/17/2014 19:28 EDT ; Life Cycle Date: 06/24/2013 ; Life Cycle Status: Active ; Vocabulary: SNOMED CT Fibromyalgia (SNOMED CT :143881254 ) Name of Problem: Fibromyalgia ; Recorder: BIANKA DUNN RN; Confirmation: Confirmed ; Classification: Medical ; Code: 647375374 ; Contributor System: PowerChart ; Last Updated: 04/01/2019 10:24 EDT ; Life Cycle Date: 04/01/2019 ; Life Cycle Status: Active ; Vocabulary: SNOMED CT H/O ischemic left MCA stroke (SNOMED CT :5278451754 ) Name of Problem: H/O ischemic left MCA stroke ; Onset Date: 09/05/2012 ; Recorder: SYBIL MCGILL MD-EMR; Confirmation: Confirmed ; Classification: Medical ; Code: 1095296398 ; Contributor System: PowerChart ; Last Updated: 04/23/2016 17:54 EDT ; Life Cycle Date: 04/23/2016 ; Life Cycle Status: Active ; Responsible Provider: SYBIL MCGILL MD-EMR; Vocabulary: SNOMED CT Hiatal hernia (SNOMED CT :914995284 ) Name of Problem: Hiatal hernia ; Recorder: SYBIL MCGILL MD-EMR; Confirmation: Complaint of ; Classification: Medical ; Code: 029977094 ; Contributor System: PowerChart ; Last Updated: 12/03/2015 16:45 EST ; Life Cycle Date: 12/03/2015 ; Life Cycle Status: Active ; Vocabulary: SNOMED CT Lumbar disc disease (SNOMED CT :7459096799 ) Name of Problem: Lumbar disc disease ; Recorder: BIANKA DUNN RN; Confirmation: Confirmed ; Classification: Medical ; Code: 2034780941 ; Contributor System: PowerChart ; Last Updated: 04/01/2019 10:25 EDT ; Life Cycle Date: 04/01/2019 ; Life Cycle Status: Active ; Vocabulary: SNOMED CT Memory deficit///slow recall (SNOMED CT :4545704723 ) Name of Problem: Memory deficit///slow recall ; Recorder: BIANKA DUNN RN; Confirmation: Confirmed ; Classification: Medical ; Code: 5531591807 ; Contributor System: PowerChart ; Last Updated: 04/01/2019 10:51 EDT ; Life Cycle Status: Active ; Vocabulary: SNOMED CT Numbness and tingling//right leg (SNOMED CT :7088821701 ) Name of Problem: Numbness and tingling//right leg ; Recorder: BIANKA DUNN RN; Confirmation: Confirmed ; Classification: Medical ; Code: 0450758369 ; Contributor System: PowerChart ; Last Updated: 04/01/2019 10:23 EDT ; Life Cycle Date: 04/01/2019 ; Life Cycle Status: Active ; Vocabulary: SNOMED CT Obesity (SNOMED CT :4783197990 ) Name of Problem: Obesity ; Recorder: SYBIL MCGILL MD-EMR; Confirmation: Confirmed ; Classification: Medical ; Code: 3627737436 ; Contributor System: PowerChart ; Last Updated: 04/23/2016 17:53 EDT ; Life Cycle Date: 04/23/2016 ; Life Cycle Status: Active ; Responsible Provider: SYBIL MCGILL MD-EMR; Vocabulary: SNOMED CT Pain//chronic (SNOMED CT :970796581 ) Name of Problem: Pain//chronic ; Recorder: BIANKA DUNN RN; Confirmation: Confirmed ; Classification: Medical ; Code: 732468595 ; Contributor System: PowerChart ; Last Updated: 04/01/2019 10:24 EDT ; Life Cycle Date: 04/01/2019 ; Life Cycle Status: Active ; Vocabulary: SNOMED CT Right leg pain (SNOMED CT :8485131858 ) Name of Problem: Right leg pain ; Recorder: BIANKA DUNN RN; Confirmation: Confirmed ; Classification: Medical ; Code: 8012691518 ; Contributor System: [employer] ; Last Updated: 04/01/2019 10:23 EDT ; Life Cycle Date: 04/01/2019 ; Life Cycle Status: Active ; Vocabulary: SNOMED CT Sleep apnea///risk (SNOMED CT :037750026 ) Name of Problem: Sleep apnea///risk ; Recorder: BIANKA DUNN RN; Confirmation: Confirmed ; Classification: Medical ; Code: 144613257 ; Contributor System: [employer] ; Last Updated: 04/01/2019 10:37 EDT ; Life Cycle Date: 04/01/2019 ; Life Cycle Status: Active ; Vocabulary: SNOMED CT Wears glasses (SNOMED CT :597993624 ) Name of Problem: Wears glasses ; Recorder: BIANKA DUNN RN; Confirmation: Confirmed ; Classification: Medical ; Code: 152221507 ; Contributor System: [employer] ; Last Updated: 04/01/2019 10:19 EDT ; Life Cycle Date: 04/01/2019 ; Life Cycle Status: Active ; Vocabulary: SNOMED CT Diagnoses(Active) Altered mental status Date: 04/20/2019 ; Diagnosis Type: Reason For Visit ; Confirmation: Complaint of ; Clinical Dx: Altered mental status ; Classification: Medical ; Clinical Service: Emergency medicine ; Code: PNED ; Probability: 0 ; Diagnosis Code: [id number] ED Height and Weight Height Source : Stated Height Entry Format : [place] Height, Feet : 5 ft(Converted to: 152 cm, 60 Inch) Height, Inches : 4 Inch(Converted to: 0 ft 4 Inch, 10.16 cm) Clinical Height : 162.56 cm Weight Source, ED : Critical estimated dosing weight Weight Entry Format : [place] Weight, Pounds : 240 lb Clinical Dosing Weight : 109.09 kg Body Surface Area (BSA) : 2.12 m2 Body Mass Index : 41.3 kg/m2 (>HHI) [place] Body Weight (IBW) : 54.3 kg Magda Egan Rn - 04/20/2019 16:31 EDT documented in this encounter Plan of Treatment Not on file documented as of this encounter Visit Diagnoses Not on filedocumented in this encounter
--- OUTSIDE RECORDS SUMMARY | 2025-07-29 11:51 | XMS_ITS | Encounter Summary ---
Author Organization [employer] ([place], [place], [place], [place]) Address [address] [place] [address] Care Team Providers Care Head Still Operator Name Role Phone Unavailable Primary Care Provider Unavailabl e Encounter Details Date Type Department Care Team (Late st Contact Info) Description 07/22/2019 Transcribed Document [facility] [place] Family Medicine [address] [place] [address] ProviderChano MD [address] [place], [place] [id number] Social History Tobacco Use Types Packs/Day Years Used Date Smoking Tobacco: Never Assessed Comments Unknown Sex and Gender Information Value Date Recorded Sex Assigned at Not on file Legal Sex Female 2:07 PM CDT Gender Identity Not on file Sexual Orientation Not on file documented as of this encounter Miscellaneous Notes * Cerner Conversion Note - Historical ProviderMD - 07/22/2019 11:39 AM CDT Attempt to Treat, PT Entered On: 07/22/2019 11:50 EDT Performed On: 07/22/2019 11:39 EDT by HILDA CLEMONS PTA Attempt to Treat Unable to Treat Due To : Patient Refusal Inability to Treat Comment : pt refused treatment at this time stating she can't do it . will follow up as time allows Notification : nsg notified HILDA CLEMONS PTA - 07/22/2019 11:46 EDT documented in this encounter Plan of Treatment Not on file documented as of this encounter Visit Diagnoses Not on filedocumented in this encounter
--- OUTSIDE RECORDS SUMMARY | 2025-07-29 11:51 | XMS_ITS | Encounter Summary ---
Author Organization [employer] ([place], [place], [place], [place]) Address [address] [place] [address] Care Team Providers Care Tool Crib Lead Name Role Phone Unavailable Primary Care Provider Unavailabl e Encounter Details Date Type Department Care Team (Late st Contact Info) Description 07/22/2019 Transcribed Document [facility] [place] Family Medicine [address] [place] [address] ProviderChano MD [address], [place] [id number] Social History Tobacco Use Types Packs/Day Years Used Date Smoking Tobacco: Never Assessed Comments Unknown Sex and Gender Information Value Date Recorded Sex Assigned at Not on file Legal Sex Female 2:07 PM CDT Gender Identity Not on file Sexual Orientation Not on file documented as of this encounter Miscellaneous Notes * Cerner Conversion Note - Chano ProviderMD - 07/22/2019 5:10 PM CDT On Going Discharge Planning Entered On: 07/23/2019 17:13 EDT Performed On: 07/22/2019 17:10 EDT by HORACIO ACHARYA RN-Customer Assistance AssociatePole Tester Progress Note Discharge Arrangements : Patient Post-Acute Information Patient Name: ADRIENNE ANTONIO Gender: Female : [birth year] Age: 68 Years No Post-Acute Placement(s) Listed No Post-Acute Service(s) Listed No [place] Referral(s) Listed Barriers to Discharge Identified : Clinical Condition of Patient Barriers to Discharge Unresolved : Clinical Condition of Patient HORACIO ACHARYA RN-Customer Assistance Associate - 07/23/2019 17:10 EDT Narrative Progress Note Narrative Progress Note : Pt's confusion is worse. She is unable to use utensils and is using her hands to eat. [facility] reconsulted. Labs/urine sent. [facility] called asking if pt still needed placement. [facility] liaison Yodit met with pt at bedside and feels pt would do better if went to psych unit prior to rehab. Spoke to Urvashi at [facility]-Psych unit and sent updates to her. She states pt has to be medically ready for dc before she can given MD referral. Pt is not ready today. D/W Dr. Reid, pt's daughter, spouse, and bedside RN. CM will contniue to follow. Historical Progress Note : Lisbeth met with pt and family at bedside, but her boss has declined admission. Spoke to Yodit with [facility], she can offer at all 3 in [place], and [facility]. They chose [facility], [facility] initiated. CM will continue to follow. HORACIO ACHARYA RN-Customer Assistance Associate - 07/21/19 14:38:34 Pt was referred to 18 debbie/psych facilities by [facility]. All have declined admission, some stating she needs physical rehab and/or does not have any acute issues for psych admission. Spouse agreeable to try for SNF admission since she is still requiring assistance with ADL's and bed mobility. He chose [facility], [facility] [place] [place], and [facility]. Referrals sent via [employer]. Spoke to Lisbeth with the [facility]. She states they have a track laying supervisor that can see pt at the facility. She will need to come do a bedside eval. D/W Dr. Horner as well. CM will continue to follow. HORACIO ACHARYA RN-Customer Assistance Associate - 07/20/19 15:47:15 [facility] consulted. They received MD approval to send referrals to debbie/psych facilities per families request. They do not feel confident pt will be accepted as she has no acute issues right now and she has no SI/HI. If denied, pt will have to dc home with family and HH, likely tomorrow. D/W Dr. Horner and family. CM will continue to follow. HORACIO ACHARYA RN-Customer Assistance Associate - 07/19/19 15:10:43 [facility] eval for inpatient psych on Thursday 07/19. CM will continue to follow. HORACIO ACHARYA RN-Customer Assistance Associate - 07/16/19 12:46:58 [facility] declined admission to their psych unit. No word from [facility]. Met with pt's daughter and had lengthy discussion regarding disposition. CM will consult [facility] at time of dc for help with admission to debbie-psych unit somewhere. D/W Dr. Horner and Dr. Jama. CM will continue to follow. HORACIO ACHARYA RN-Customer Assistance Associate - 07/15/19 14:03:13 Spoke to pt's spouse Kian on the phone today. 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 He states he does not want her going to those places as she kows people there. He agrees to referrals to [facility] and [facility] inpatient psych units. Referral sent and spoke to JUSTA Perez at [facility] and Royce RN at [facility]. CM will continue to follow. HORACIO ACHARYA RN-Customer Assistance Associate - 07/14/19 13:36:43 Dr. Valdez consult this [...] CM will continue to follow. HORACIO ACHARYA RN-Customer Assistance Associate - 07/13/19 17:41:20 psych consult referral faxed to Dr. Valdez's office to assess for psychosis. SANJIV VOGT RN-Customer Assistance Associate - 07/11/19 16:14:26 HORACIO ACHARYA RN-Customer Assistance Associate - 07/23/2019 17:10 EDT Electronically signed by Julian Wheeler Conversion Liquid Natural Gas Plant Operator Cerner at 01/23/2023 1:35 PM CDT documented in this encounter Plan of Treatment Not on file documented as of this encounter Visit Diagnoses Not on filedocumented in this encounter
--- OUTSIDE RECORDS SUMMARY | 2025-07-29 11:51 | XMS_ITS | Encounter Summary ---
Author Organization [employer] ([place], [place], [place], [place]) Address [address] [place] [address] Care Team Providers Care Oil Pipe Inspector Helper Name Role Phone Unavailable Primary Care Provider Unavailabl e Encounter Details Date Type Department Care Team (Late st Contact Info) Description 07/21/2019 Transcribed Document [facility] Radiology [address] [place] [address] Abby Reid MD [address] [place] [address] [place] [address] Social History Tobacco Use Types Packs/Day Years Used Date Smoking Tobacco: Never Assessed Comments Unknown Sex and Gender Information Value Date Recorded Sex Assigned at Not on file Legal Sex Female 2:07 PM CDT Gender Identity Not on file Sexual Orientation Not on file documented as of this encounter Miscellaneous Notes * Cerner Conversion Note - Abby Reid MD - 07/21/2019 12:16 PM EDT Patient: LUDY ANTONIO Age: 68 years Sex: Female : 1950 Associated Diagnoses: None Author: ABBY REDI MD-INT Subjective 68-year-old female who had recent back surgery by Dr. Lucas, readmitted for back pain NS redo back surgery and culture pending ID also consulted and on iv abx and later off but patient cont confusion and agitation and neurology also consulted Ct of head showed old CVA seroquel also added and did help her saw her today in am and feel better, more calm and eat well bp mild lower than before psychiatry facility refer pending ROS: no fever, no cp or [...] Scale D, SubCutaneous, AC and at Bedtime lisinopril: 20 mg, Oral, At Bedtime loratadine: [...] Patch, TransDermal, Daily, 20 Package, 0 Refill(s) Norvasc 5 mg oral tablet: 1 Tab, Oral, BID, 60 Tab, 0 Refill(s) SEROquel 25 mg oral tablet: 0.25 Tab, Oral, BID, 15 Tab, 0 Refill(s) gabapentin 300 mg oral capsule: 1 Cap, Oral, QPM, 30 Cap, 0 Refill(s) oxyCODONE 10 mg oral tablet: [...] Refill(s) Flonase 0.05 mg/inh nasal spray: 2 Magnolia, Nasal, Daily, 16 Gram, 0 Refill(s) Lantus 100 units/mL subcutaneous solution: 25 Units, SubCutaneous, BID, 0 Refill(s) Lovenox: 40 mg, SubCutaneous, Daily, 0 Refill(s) Metoprolol Tartrate 25 mg oral tablet: 0.5 Tab, Oral, BID, 30 Tab, 0 Refill(s) NovoLog: SubCutaneous, TIDAC, 3 times a day- sliding scale., 0 Refill(s) Tylenol 325 mg oral tablet: 2 Tab, Oral, Q4H, PRN: Pain (Mild 1-3), 0 Refill(s) Vitamin D3: 50,000 Int Units, Oral, See Comment, friday and friday, 0 Refill(s) insulin lispro 100 units/mL injectable solution: Scale D, SubCutaneous, AC and at Bedtime, 0 Refill(s) lisinopril 40 mg oral tablet: 1 Tab, Oral, At Bedtime, 0 Refill(s) loratadine 10 mg oral tablet: 1 Tab, Oral, At Bedtime, 30 Tab, 0 Refill(s), Home Medications (21) Active Aciphex 20 mg, Oral, BID Advair [...] Daily Flonase 0.05 mg/inh nasal spray 2 Magnolia, Nasal, Daily gabapentin 300 mg oral capsule 300 mg = 1 Cap, Oral, QPM insulin lispro 100 units/mL injectable solution Scale D, SubCutaneous, AC and at Bedtime Lantus 100 units/mL subcutaneous solution 25 Units, SubCutaneous, BID Lidoderm 5% topical film 2 Patch, TransDermal, Daily lisinopril 40 mg oral tablet 40 mg = 1 Tab, Oral, At Bedtime loratadine 10 mg oral tablet 10 mg = 1 Tab, Oral, At Bedtime Lovenox 40 mg = 0.4 mL, SubCutaneous, Daily Metoprolol Tartrate 25 mg oral tablet 12.5 mg = 0.5 Tab, Oral, BID Norvasc 5 mg oral tablet 5 mg = 1 Tab, Oral, BID NovoLog , SubCutaneous, TIDAC oxyCODONE 10 mg oral tablet 10 mg = 1 Tab, PRN, Oral, Q6H SEROquel 25 mg oral tablet 6.25 mg = 0.25 Tab, Oral, BID Tylenol 325 mg oral tablet 650 mg = 2 Tab, PRN, Oral, Q4H Vitamin D3 50,000 Int Units, Oral, See Comment , Medications (23) Active Scheduled: (15) divalproex 250 mg EC tab 250 mg [...] Scale D, SubCutaneous, AC and at Bedtime lidocaine 5% patch 3 Patch, TransDermal, Daily [...] Problem list: Medical Pain//chronic / SNOMED CT 736580679 / Confirmed At risk for sleep apnea / IMO 06937721 / Confirmed Back pain / SNOMED CT 1965704428 / Confirmed Cataract///beginning stage / SNOMED CT 656662546 / Confirmed Chest pain///cath negative / SNOMED CT 70439057 / Confirmed Completely occulded L carotid / SNOMED CT 9701523015 / Confirmed Lumbar disc disease / SNOMED CT 3805951077 / Confirmed Fibromyalgia / SNOMED CT 353109418 / Confirmed Hiatal hernia / SNOMED CT 261463527 / Complaint of H/O ischemic left MCA stroke / SNOMED CT 4592272068 / Confirmed Memory deficit///slow recall / SNOMED CT 3952062217 / Confirmed Numbness and tingling//right leg / SNOMED CT 0482609620 / Confirmed Obesity / SNOMED CT 8940217185 / Confirmed Right leg pain / SNOMED CT 2112497461 / Confirmed Colon polyps / SNOMED CT 633270569 / Confirmed Sleep apnea///risk / SNOMED CT 505010257 / Confirmed Wears glasses / SNOMED CT 632804301 / Confirmed, Active Problems (24) Acid reflux [...] Last Charted Minimum Maximum Temp 97.5 (JUL 16 05:43) 97.5 (JUL 16 05:43) 98 (JUL 15 16:19) Apical HR 61 (JUL 16 10:17) 61 (JUL 16 10:17) 75 (JUL 15 22:36) Mon HR 61 (JUL 21 05:43) 61 (JUL 16 05:43) 81 (JUL 15 18:34) Resp Rate 14 (JUL 16 05:00) 14 (JUL 16 05:00) 17 (JUL 15 16:19) SBP 125 (JUL 16 05:43) 109 (JUL 15 16:19) 125 (JUL 16 05:43) DBP L 47 (JUL 16 05:43) L 44 (JUL 15 16:19) 60 (JUL 15 18:34) MAP 89 (JUL 16 05:43) 57 (JUL 15 16:19) 89 (JUL 16 05:43) SpO2 100 (JUL 15 21:33) 98 (JUL 15 16:19) 100 (JUL 15 18:34) General: Moderate distress. Neck: Supple, Non-tender, No [...] (JUL 18) 8.4 (JUL 12) 8.2 (JUL 06) HB 11.6 (JUL 21) 11.3 (OCT 13) 11.5 (OCT 07) 11.5 [...] (OCT 06) CO2 29 (OCT 16) 30 (JUL 13) 31 (JUL 07) 31 (JUL 06) BUN H 27 (JUL 16) H 23 (JUL 13) 14 (JUL 07) 14 (JUL 06) Cr 1.00 (OCT 16) 1.00 (OCT 13) 0.90 (OCT 07) 0.90 (OCT 06) Glu R H 134 (JUL 16) H 213 (JUL 13) H 202 (JUL 07) H 248 (JUL 06) Ca 9.1 (OCT 16) 9.4 (OCT 13) 9.0 (OCT 07) 9.0 (OCT 06) PT 9.9 (JUL 04) 10.1 (JUL 03) INR 0.9 (JUL 04) 0.9 (JUL 03) PTT 28.0 (JUL 03) AST 15 (OCT 16) 18 (OCT 07) 16 (OCT 04) 17 (JUL 03) ALT 24 (OCT 16) 25 (JUL 07) 23 (JUL 04) 21 (JUL 03) ALK P 56 (JUL 16) 56 (JUL 07) 69 (JUL 04) 63 (OCT 03) T Bili 0.3 (OCT 16) 0.3 (OCT 07) 0.3 (OCT 04) 0.4 (JUL 03) PTN L 6.2 (JUL 16) 6.7 (JUL 07) 7.1 (OCT 04) 7.0 (OCT 03) ALB L 2.7 (OCT 16) L 2.8 (OCT 07) L 3.1 (OCT 04) L 3.2 (OCT 03) No Radiology Results Found Diagnosis / [...] facility now- I d/w pt and fami documented in this encounter Plan of Treatment Not on file documented as of this encounter Visit Diagnoses Not on filedocumented in this encounter
--- OUTSIDE RECORDS SUMMARY | 2025-07-29 11:51 | XMS_ITS | Encounter Summary ---
Author Organization [employer] ([place], [place], [place], [place]) Address [address] [place] [address] Care Team Providers Care Oenologist Name Role Phone Unavailable Primary Care Provider Unavailabl e Encounter Details Date Type Department Care Team (Late st Contact Info) Description 07/21/2019 Transcribed Document [facility] Family Medicine [address] [place] [address] ProviderChano MD [address] [place], [place] [id number] Social History Tobacco Use Types Packs/Day Years Used Date Smoking Tobacco: Never Assessed Comments Unknown Sex and Gender Information Value Date Recorded Sex Assigned at Not on file Legal Sex Female 2:07 PM CDT Gender Identity Not on file Sexual Orientation Not on file documented as of this encounter Miscellaneous Notes * Cerner Conversion Note - Historical ProviderMD - 07/21/2019 9:42 AM CDT Stroke/Warfarin Instructions Entered On: 07/21/2019 9:42 EDT Performed On: 07/21/2019 9:42 EDT by Nahomy Kim RN Stroke/Warfarin Instructions Stroke/TIA Discharge Ins : N/A Warfarin Discharge Ins : N/A Nahomy Kim RN - 07/21/2019 9:42 EDT documented in this encounter Plan of Treatment Not on file documented as of this encounter Visit Diagnoses Not on filedocumented in this encounter
--- OUTSIDE RECORDS SUMMARY | 2025-07-29 11:52 | XMS_ITS | Encounter Summary ---
Author Organization [employer] ([place], [place], [place], [place]) Address [address] [place] [address] Care Team Providers Care Senior Ssis Developer Name Role Phone Unavailable Primary Care Provider Unavailabl e Encounter Details Date Type Department Care Team (Late st Contact Info) Description 04/05/2019 Transcribed Document [facility] [facility] [place] [address] ProviderChano MD [address] [id number] Social History Tobacco Use Types Packs/Day Years Used Date Smoking Tobacco: Never Assessed Comments Unknown Sex and Gender Information Value Date Recorded Sex Assigned at Not on file Legal Sex Female 2:07 PM CDT Gender Identity Not on file Sexual Orientation Not on file documented as of this encounter Miscellaneous Notes * Cerner Conversion Note - Chano ProviderMD - 04/05/2019 12:00 PM CDT Patient: LUYD ANTONIO Age: 68 years Sex: Female : 1950 Associated Diagnoses: None Author: AMANDEEP BERRIOS APRN Chief Complaint back, RLE pain Review of Systems ROS reviewed as documented in chart no change since last seen by surgeon Health Status Allergies: Allergic Reactions (Selected) Severity Not Documented Avandia- Chf. Fenofibrate- No reactions were documented. MetFORMIN- No reactions were documented. NSAIDs- No reactions were documented. Statins- Fenofibrate and fenofibrate., Allergies (1) Active Reaction Avandia CHF Current medications: (Selected) Inpatient Medications Ordered Lactated Ringers Injection intravenous solution 1,000 mL: 20 mL/Hr, IntraVENous lidocaine 1% preservative-free injectable solution: 0.5 mL, IntraDermal, 1-Time Documented Medications Documented Aciphex: 20 mg, Oral, BID Advair Diskus 250 mcg-50 mcg inhalation powder: 1 Puff, Inhalation, Daily, PRN: as needed, 0 Refill(s) Centrum: 1 Tab, Oral, Daily Cymbalta 60 mg oral delayed release capsule: 1 Cap, Oral, At Bedtime, (do not crush or chew) Flonase 0.05 mg/inh nasal spray: 2 Hersey, Nasal, Daily, 16 Gram, 0 Refill(s) Lantus: 60 Units, SubCutaneous, At Bedtime, 0 Refill(s) Lasix 20 mg oral tablet: 1 Tab, Oral, Daily, weight gain/fluid retention, PRN: Other (See Comment), 0 Refill(s) Lortab 10/500 oral tablet: 1 Tab, Oral, Q6H, 15 Tab, PRN: for pain NovoLog: SubCutaneous, TIDAC, 3 times a day- [...] 6.25 mg, Oral, At Bedtime, 0 Refill(s) potassium chloride-sodium chloride: 20 mEq, Oral, Daily, taken as needed with lasix, PRN: Other (See Comment), 0 Refill(s), Home Medications (16) Active Aciphex 20 mg, Oral, BID Advair Diskus 250 mcg-50 mcg inhalation powder 1 Puff, PRN, Inhalation, Daily Centrum 1 Tab, Oral, Daily Cymbalta 60 mg oral delayed release capsule 60 mg = 1 Cap, Oral, At Bedtime Flonase 0.05 mg/inh nasal spray 2 Hersey, Nasal, Daily Lantus 60 Units, SubCutaneous, At Bedtime Lasix 20 mg oral tablet 20 mg = 1 Tab, PRN, Oral, Daily lisinopril 40 mg oral tablet 40 mg = 1 Tab, Oral, At Bedtime loratadine 10 mg oral tablet 10 mg = 1 Tab, Oral, At Bedtime Lortab 10/500 oral tablet 1 Tab, PRN, Oral, Q6H metoprolol tartrate 6.25 mg, Oral, At Bedtime NovoLog , SubCutaneous, TIDAC Plavix 75 mg oral tablet 75 mg = 1 Tab, Oral, Daily potassium chloride-sodium chloride 20 mEq, PRN, Oral, Daily Ultram 50 mg oral tablet 100 mg = 2 Tab, PRN, Oral, Q6H Vitamin D3 50,000 Int Units, Oral, See Comment , Medications (2) Active Scheduled: (1) lidocaine 1% *PF* inj 2 mL 0.5 mL, IntraDermal, 1-Time Continuous: (1) lactated ringers 1,000 mL 1,000 mL, IntraVENous, 20 mL/Hr PRN: (0) Problem list: All Problems Wears glasses / SNOMED CT 470685622 / Confirmed Sleep apnea///risk / SNOMED CT 416670707 / Confirmed Colon polyps / SNOMED CT 519927658 / Confirmed Right leg pain / SNOMED CT 4893754847 / Confirmed Obesity / SNOMED CT 3070342841 / Confirmed Numbness and tingling//right leg / SNOMED CT 7229930224 / Confirmed Memory deficit///slow recall / SNOMED CT 0329296367 / Confirmed H/O ischemic left MCA stroke / SNOMED CT 1818872591 / Confirmed Hiatal hernia / SNOMED CT 407815317 / Complaint of Fibromyalgia / SNOMED CT 442075524 / Confirmed Dyslipidemia / SNOMED CT 1093672687 / Confirmed DM - Diabetes mellitus / SNOMED CT 439853600 / Confirmed Lumbar disc disease / SNOMED CT 5755004438 / Confirmed Completely occulded L carotid / SNOMED CT 4431008050 / Confirmed Congestive heart failure - due to Avandia resolved / SNOMED CT 95019378 / Confirmed per pt and Chest pain///cath negative / SNOMED CT 47344795 / Confirmed Cataract///beginning stage / SNOMED CT 762699628 / Confirmed BP+ - Hypertension / SNOMED CT 008195778 / Confirmed Back pain / SNOMED CT 0062514386 / Confirmed At risk for sleep apnea / IMO 62804320 / Confirmed Arthritis / SNOMED CT 3664459 / Confirmed Allergic asthma / SNOMED CT 8287045612 / Confirmed Pain//chronic / SNOMED CT 677041852 / Confirmed Acid reflux / SNOMED CT 465311423 / Confirmed, Active Problems (24) Acid reflux Allergic asthma Arthritis At risk for sleep apnea Back pain with RLE radiculopathy BP+ - Hypertension Cataract///beginning stage Chest pain///cath negative Colon polyps Completely occulded L carotid Congestive heart failure - due to Avandia resolved DM - Diabetes mellitus Dyslipidemia Fibromyalgia H/O ischemic left MCA stroke Hiatal hernia Lumbar disc disease Memory deficit///slow recall Numbness and tingling//right leg Obesity Pain//chronic Right leg pain Sleep apnea///risk Wears glasses Histories Past Medical History: No active or resolved past medical history items have been selected or recorded. Family History: No family history items have been selected or recorded. Procedure history: heart catheterization in 2012 at 63 Years. Comments: 06/24/2013 07:44 - MIGEL GARCIA RN negative cath left hip replacement in 2011 at 62 Years. right and left shoulder repair. achilles repair. Appendectomy (466793461). Cholecystectomy (26934804). Tonsillectomy (345855099). Social History Social & Psychosocial Habits Alcohol 06/24/2013 Alcohol Use in Last Twelve Months No Employment/School 07/17/2014 Status: Retired Previous employment/school: [employer] Home/Environment 07/17/2014 Lives with: Spouse Living situation: Home with assistance Substance Abuse 06/24/2013 Recreational Drug Use History No Tobacco 06/24/2013 Tobacco Use Within Last Twelve Months Cigarettes Smoking Status Former smoker Years of Tobacco Use 1 Packs/Tins Daily 0.5 Month Tobacco Last Used teenager . Physical Examination VS/Measurements Vital Signs/Vital Measures 04/05/2019 12:00 EDT Systolic Blood Pressure 162 mmHg HI Diastolic Blood Pressure 73 mmHg Temperature Source Temporal artery scanning Temperature Mode Fahrenheit Temperature, Fahrenheit 99.2 Deg F Heart Rate Monitored 91 bpm Respiratory Rate 16 Breaths/Min Oxygen Saturation 95 % Oxygen Therapy Mode Room air , Vitals Signs (last 24 hrs) Last Charted Minimum Maximum Temp 99.2 (APR 05 12:00) 99.2 (APR 05 12:00) 99.2 (APR 05 12:00) Mon HR 91 (APR 05:00) 91 (APR 05:00) 91 (APR 05:00) Resp Rate 16 (APR 05:00) 16 (APR 05 12:00) 16 (APR 05:00) SBP H 162 (APR 05:00) H 162 (APR 05:) H 162 (APR 05:) DBP 73 (APR 05:) 73 (APR 05 12:00) 73 (APR 05:) SpO2 95 (APR 05:) 95 (APR 05:00) 95 (APR 05:) General: Alert and oriented, No acute distress, morbid obesity. Eye: Pupils are equal, round and reactive to light, Extraocular movements are intact, glasses. HENT: Normocephalic, Normal hearing, dysphasia due to CVA. Neck: Supple, Non-tender. Respiratory: Lungs are clear to auscultation, Respirations are non-labored. Cardiovascular: Normal rate, Regular rhythm, No murmur, No gallop, No edema. Gastrointestinal: Soft, Non-tender. Genitourinary: No costovertebral angle tenderness. Lymphatics: No lymphadenopathy neck, axilla, groin. Musculoskeletal: painful ROM back, RLE weakness, uses walker. Integumentary: Warm, Dry, [place]. Neurologic: Alert, Oriented. Psychiatric: Cooperative, Appropriate mood & affect. Review / Management Results review: Labs (Last four charted values) WBC 8.9 (APR 01) HB 13.0 (APR 01) HCT 40.1 (APR 01) Plt 262 (APR 01) Na 140 (APR 01) K 4.3 (APR 01) Cl 103 (APR 01) CO2 32 (APR 01) BUN H 24 (APR 01) Cr H 1.10 (APR 01) Glu R H 140 (APR 01) Ca 9.4 (APR 01) . Impression and Plan Condition: Stable. documented in this encounter Plan of Treatment Not on file documented as of this encounter Visit Diagnoses Not on filedocumented in this encounter
--- OUTSIDE RECORDS SUMMARY | 2025-07-29 11:52 | XMS_ITS | Encounter Summary ---
Author Organization [employer] ([place], [place], [place], [place]) Address [address] [place] [address] Care Team Providers Care Branch Operations Manager Name Role Phone Unavailable Primary Care Provider Unavailabl e Encounter Details Date Type Department Care Team (Late st Contact Info) Description 07/19/2019 Transcribed Document [facility] [place] Family Medicine [address] [place] [address] ProviderChano MD [address] [place], [place] [id number] Social History Tobacco Use Types Packs/Day Years Used Date Smoking Tobacco: Never Assessed Comments Unknown Sex and Gender Information Value Date Recorded Sex Assigned at Not on file Legal Sex Female 2:07 PM CDT Gender Identity Not on file Sexual Orientation Not on file documented as of this encounter Miscellaneous Notes * Cerner Conversion Note - Historical ProviderMD - 07/19/2019 3:00 AM CDT Nutrition Assessment Entered On: 07/19/2019 11:23 EDT Performed On: 07/19/2019 15:58 EDT by Ludmila Velasco Student Nutrition Assessment Nutrition Assessment Reason : Follow Up Ludmila Velasco Student - 07/19/2019 15:55 EDT Nutrition Recommendations Dietitian Recommendations : 07/19: Rescreen. Pt remains on Regular diet. Pt ate 100% of most recent meal documented and 25% of meal yesterday. Spoke to pt who reports eating well/normal appetite. RD noted BG 216, RD changed pt to diabetic diet, nsg notified. Pt does not have any questions at this time about 60gCHO diet, reports she follows this diet at home. Reviewed labs/meds. No skin breakdown noted. LBM 07/14. Pt has miralax in prn meds-d/w nsg. Will rescreen in 7-10 days or available prn. Ludmila Velasco, Student - 07/19/2019 15:55 EDT documented in this encounter Plan of Treatment Not on file documented as of this encounter Visit Diagnoses Not on filedocumented in this encounter
--- OUTSIDE RECORDS SUMMARY | 2025-07-29 11:52 | XMS_ITS | Encounter Summary ---
Author Organization [employer] ([place], [place], [place], [place]) Address [address] [place] [address] Care Team Providers Care Irrigation Flume Layer Name Role Phone Unavailable Primary Care Provider Unavailabl e Encounter Details Date Type Department Care Team (Late st Contact Info) Description 07/15/2019 Transcribed Document [facility] [place] Family Medicine [address] [place] [address] ProviderChano MD [address], [place] [phone] Social History Tobacco Use Types Packs/Day Years Used Date Smoking Tobacco: Never Assessed Comments Unknown Sex and Gender Information Value Date Recorded Sex Assigned at Not on file Legal Sex Female 2:07 PM CDT Gender Identity Not on file Sexual Orientation Not on file documented as of this encounter Miscellaneous Notes * Cerner Conversion Note - Chano Gatica MD - 07/15/2019 1:59 PM CDT On Going Discharge Planning Entered On: 07/15/2019 14:03 EDT Performed On: 07/15/2019 13:59 EDT by HORACIO ACHARYA RN-Screen Print OperatorCloud Engineer Progress Note Discharge Arrangements : Patient Post-Acute Information Patient Name: LUDY ANTONIO Gender: Female : [birth year] Age: 68 Years No Post-Acute Placement(s) Listed No Post-Acute Service(s) Listed No [place] Referral(s) Listed Barriers to Discharge Identified : Clinical Condition of Patient Barriers to Discharge Unresolved : Clinical Condition of Patient Referral Indicators For Complex SWK Interventions : Behavorial or psychiatric issues, Caregiver concerns HORACIO ACHARYA RN-Screen Print Operator - 07/15/2019 13:59 EDT Narrative Progress Note Narrative Progress Note : Santi declined admission to their psych unit. No word from [facility]. Met with pt's daughter and had lengthy discussion regarding disposition. CM will consult [facility] at time of dc for help with admission to debbie-psych unit somewhere. D/W Dr. Horner and Dr. Jama. CM will continue to follow. Historical Progress Note : Spoke to pt's spouse Kian on the phone today. 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 He states he does not want her going to those places as she kows people there. He agrees to referrals to [facility] and [facility] inpatient psych units. Referral sent and spoke to JUSTA Perez at [facility] and Yaa-rn relief charge at [facility]. CM will continue to follow. HORACIO ACHARYA RN-Screen Print Operator - 07/14/19 13:36:43 Dr. Valdez consult this [...] CM will continue to follow. HORACIO ACHARYA RN-Screen Print Operator - 07/13/19 17:41:20 psych consult referral faxed to Dr. Valdez's office to assess for psychosis. SANJIV VOGT, EDISON-Screen Print Operator - 07/11/19 16:14:26 HORACIO ACHARYA RN-Screen Print Operator - 07/15/2019 13:59 EDT documented in this encounter Plan of Treatment Not on file documented as of this encounter Visit Diagnoses Not on filedocumented in this encounter
--- OUTSIDE RECORDS SUMMARY | 2025-07-29 11:52 | XMS_ITS | Encounter Summary ---
Author Organization [employer] ([place], [place], [place], [place]) Address [address] [place] [address] Care Team Providers Care Time Lock Expert Name Role Phone Unavailable Primary Care Provider Unavailabl e Encounter Details Date Type Department Care Team (Late st Contact Info) Description 04/06/2019 Transcribed Document [facility] [place] Family Medicine [address] [place] [address] ProviderChano MD [address] [place], [place] [phone] Social History Tobacco Use Types Packs/Day Years Used Date Smoking Tobacco: Never Assessed Comments Unknown Sex and Gender Information Value Date Recorded Sex Assigned at Not on file Legal Sex Female 2:07 PM CDT Gender Identity Not on file Sexual Orientation Not on file documented as of this encounter Miscellaneous Notes * Cerner Conversion Note - Historical ProviderMD - 04/06/2019 2:00 AM CDT Glove Former Details Entered On: 04/06/2019 5:17 EDT Performed On: 04/06/2019 2:00 EDT by Eriberto Crawley Rn-Resource Order Details Order Detail : 0 IV Order Detail : 1 Oxygen Order Detail : 0 Nurse Collect Order Detail : 0 Lift/Transfer : Moderate assist Central Line Order Detail : No Room Service : Appropriate Arterial Line : No Eriberto Crawley Rn-Resource - 04/06/2019 5:16 EDT documented in this encounter Plan of Treatment Not on file documented as of this encounter Visit Diagnoses Not on filedocumented in this encounter
--- OUTSIDE RECORDS SUMMARY | 2025-07-29 11:52 | XMS_ITS | Encounter Summary ---
Author Organization [employer] ([place], [place], [place], [place]) Address [address] [place] [address] Care Team Providers Care Design Consultant Name Role Phone Unavailable Primary Care Provider Unavailabl e Encounter Details Date Type Department Care Team (Late st Contact Info) Description 04/06/2019 Transcribed Document [facility] [place] [facility] [place] [address] ProviderChano MD [address] [phone] Social History Tobacco Use Types Packs/Day Years Used Date Smoking Tobacco: Never Assessed Comments Unknown Sex and Gender Information Value Date Recorded Sex Assigned at Not on file Legal Sex Female 2:07 PM CDT Gender Identity Not on file Sexual Orientation Not on file documented as of this encounter Miscellaneous Notes * Cerner Conversion Note - Historical ProviderMD - 04/06/2019 7:07 AM CDT Patient: LUDY ANTONIO Age: 68 Years Sex: Female : 1950 Subjective naeo. pt states has been up and oob. voiding. would like to go home. She thinks right leg pain may be slightly improved. Physical Exam afvss a/a/o maew silt incision c/d/i Assessment/Plan POD 1 L3-[address] Lucas- me home today. discussed follow up and wound care. Medications insulin lispro greater than 101 kg, greater than 101 kg scale, SubCutaneous, AC and at Bedtime morphine, 2 mg= 1 mL, IV Push, Q2H, PRN Percocet 5/325 oral tablet, 2 Tab, Oral, Q4H, PRN Senna S, 1 Tab, Oral, Daily Tylenol, 650 mg= 2 Tab, Oral, Q6H, PRN Valium, 5 mg= 1 Tab, Oral, Q6H, PRN Zofran, 4 mg= 2 mL, IV Push, Q4H, PRN Lab Results Test Name Test Result Date/Time Device Comment 1 Notified Nurse RBV 04/06/2019 06:01 EDT Device Comment 1 Notified Nurse RBV 04/05/2019 20:44 EDT Device Comment 1 Protocols Followed 04/05/2019 17:24 EDT Device Comment 2 Notified Nurse RBV 04/05/2019 17:24 EDT Glucose POC2 279 mg/dL (High) 04/06/2019 06:01 EDT Glucose POC2 182 mg/dL (High) 04/05/2019 20:44 EDT Glucose POC2 144 mg/dL (High) 04/05/2019 17:24 EDT Glucose POC2 108 mg/dL 04/05/2019 15:18 EDT Glucose POC2 169 mg/dL (High) 04/05/2019 12:01 EDT Urine Type U CleanCatch 04/05/2019 11:52 EDT Urine Color YELLOW2 04/05/2019 11:52 EDT Urine Appearance CLEAR2 04/05/2019 11:52 EDT Urine Specific [place] 1.021 04/05/2019 11:52 EDT Urine pH Dipstick 5.5 (Low) 04/05/2019 11:52 EDT Urine Leukocyte Esterase SMALL2 (Abnormal) 04/05/2019 11:52 EDT Urine Nitrite NEGATIVE2 04/05/2019 11:52 EDT Urine Protein Dipstick NEGATIVE2 04/05/2019 11:52 EDT Urine Glucose Dipstick NEGATIVE2 04/05/2019 11:52 EDT Urine Ketones Dipstick NEGATIVE2 04/05/2019 11:52 EDT Urine Urobilinogen Dipstick 0.2 04/05/2019 11:52 EDT Urine Bilirubin Dipstick NEGATIVE2 04/05/2019 11:52 EDT Urine Blood Dipstick NEGATIVE2 04/05/2019 11:52 EDT Ur WBC 2-5 (Abnormal) 04/05/2019 11:52 EDT Ur Bacteria 1+ (Abnormal) 04/05/2019 11:52 EDT Ur Mucous 1+ (Abnormal) 04/05/2019 11:52 EDT Ur Squamous Epithelial Cells 2-5 (Abnormal) 04/05/2019 11:52 EDT Electronically signed by Summer, [facility] Conversion Clinching Machine Operator Cerner at 01/23/2023 1:09 PM CDT documented in this encounter Plan of Treatment Not on file documented as of this encounter Visit Diagnoses Not on filedocumented in this encounter
--- OUTSIDE RECORDS SUMMARY | 2025-07-29 11:52 | XMS_ITS | Encounter Summary ---
Author Organization [employer] ([place], [place], [place], [place]) Address [address] [place] [address] Care Team Providers Care Golf Caddy Name Role Phone Unavailable Primary Care Provider Unavailabl e Encounter Details Date Type Department Care Team (Late st Contact Info) Description 07/19/2019 Transcribed Document [facility] [facility] [place] [facility] [place] [address] ProviderChano MD [address] [place], [place] [phone] Social History Tobacco Use Types Packs/Day Years Used Date Smoking Tobacco: Never Assessed Comments Unknown Sex and Gender Information Value Date Recorded Sex Assigned at Not on file Legal Sex Female 2:07 PM CDT Gender Identity Not on file Sexual Orientation Not on file documented as of this encounter Miscellaneous Notes * Cerner Conversion Note - Chano Gatica MD - 07/19/2019 12:49 PM CDT Patient: LUDY ANTONIO Age: 68 years Sex: Female : 1950 Associated Diagnoses: None Author: JACINTO OLIVA MD-INT Subjective 68-year-old female who had recent back surgery by Dr. Lucas, readmitted for back pain NS redo back surgery and culture pending ID also consulted and on iv abx and later off but patient cont confusion and agitation and neurology also consulted Ct of head showed old CVA seroquel also added saw her today in am and feel better, more calm bp better , yesterday walk with PT ROS: no fever, no cp or sob, [...] 2% topical powder: 1 Application, Topical, Q12H Diflucan: 100 mg, Oral, Daily DuoNeb 0.5 mg-2.5 mg/3 mL inhalation solution: 3 mL, Nebulized Inhalation, RT_Q6H, PRN: Shortness of Breath Flonase: 1 Puff, Nasal, Daily Haldol: 2 mg, IV Push, Q8H, PRN: Agitation Lantus: 25 Units, SubCutaneous, BID Lidoderm 5% topical film: 3 Patch, TransDermal, Daily Lovenox: 40 mg, SubCutaneous, Daily Magic Mouthwash: 5 mL, Oral, Q6H MiraLax: 17 Gram, Oral, Daily, PRN: Constipation Norvasc: 5 mg, Oral, BID SEROquel: 6.25 mg, Oral, BID Tylenol: 650 mg, Oral, Q4H, PRN: Pain (Mild 1-3) Valium: 5 mg, Oral, Q6H, PRN: Spasms Zofran: 4 mg, IV Push, Q4H, PRN: Nausea famotidine: 20 mg, Oral, BID gabapentin: 300 mg, Oral, QPM insulin lispro sliding scale: Scale D, SubCutaneous, AC and at Bedtime lisinopril: 40 mg, Oral, At Bedtime loratadine: 10 mg, [...] Refill(s) Flonase 0.05 mg/inh nasal spray: 2 [place], Nasal, Daily, 16 Gram, 0 Refill(s) Lantus [...] Daily Flonase 0.05 mg/inh nasal spray 2 [place], Nasal, Daily gabapentin 300 mg oral capsule [...] Int Units, Oral, See Comment , Medications (25) Active Scheduled: (17) amLODIPine 5 mg tab 5 mg 1 Tab, Oral, BID divalproex 250 mg EC tab 250 mg 1 Tab, Oral, BID DULoxetine DR 30 mg cap 60 mg 2 Cap, Oral, At Bedtime enoxaparin 40 mg/0.4 mL inj 40 mg 0.4 mL, SubCutaneous, Daily famotidine 20 mg tab 20 mg 1 Tab, Oral, BID fluconazole 100 mg tab 100 mg 1 Tab, Oral, Daily fluticasone 0.05% nasal spray 1 Puff, Nasal, Daily gabapentin 300 mg cap 300 mg 1 Cap, Oral, QPM insulin glargine 1 unit/0.01 mL inj 25 Units 0.25 mL, SubCutaneous, BID insulin lispro 1 unit/0.01 mL inj Scale D, SubCutaneous, AC and at Bedtime lidocaine 5% patch 3 Patch, TransDermal, Daily lisinopril 20 mg tab 40 mg 2 Tab, Oral, At Bedtime loratadine 10 mg [...] 1 Packet, Oral, Daily Problem list: Medical Wears glasses / SNOMED CT 509323943 / Confirmed Sleep apnea///risk / SNOMED CT 676128301 / Confirmed Colon polyps / SNOMED CT 782928946 / Confirmed Right leg pain / SNOMED CT 4913388840 / Confirmed Obesity / SNOMED CT 2968938707 / Confirmed Numbness and tingling//right leg / SNOMED CT 4699578346 / Confirmed Memory deficit///slow recall / SNOMED CT 7935653535 / Confirmed H/O ischemic left MCA stroke / SNOMED CT 9595792265 / Confirmed Hiatal hernia / SNOMED CT 166373875 / Complaint of Fibromyalgia / SNOMED CT 566133758 / Confirmed Lumbar disc disease / SNOMED CT 1707949792 / Confirmed Completely occulded L carotid / SNOMED CT 9027802790 / Confirmed Chest pain///cath negative / SNOMED CT 36745747 / Confirmed Cataract///beginning stage / SNOMED CT 284025730 / Confirmed Back pain / SNOMED CT 8139868434 / Confirmed At risk for sleep apnea / IMO 66205529 / Confirmed Pain//chronic / SNOMED CT 480484110 / Confirmed, Active Problems (24) Acid reflux [...] Last Charted Minimum Maximum Temp 98.4 (JUL 19 10:28) 97.9 (JUL 18 21:46) 98 (JUL 18 19:01) Apical HR 72 (JUL 19 08:31) 72 (JUL 19 08:31) 90 (JUL 18 20:11) Mon HR 64 (JUL 19 10:28) 64 (JUL 19 10:28) 74 (JUL 18 21:46) Resp Rate 17 (JUL 19:28) 16 (JUL 18 19:01) 18 (JUL 18 16:30) SBP 131 (JUL 19 10:28) 131 (JUL 19 10:28) H 163 (JUL 18 19:01) DBP L 57 (JUL 19 10:28) L 57 (JUL 19 10:28) 69 (JUL 18 16:30) MAP 83 (JUL 19 10:28) 73 (JUL 18 21:46) 89 (JUL 18 16:30) SpO2 L 90 (JUL 19:28) L 90 (JUL 19 10:28) 98 (JUL 18:30) General: Mild distress. Neck: Supple, Non-tender, No jugular venous [...] test: Labs (Last four charted values) WBC 7.2 (JUL 18) 8.4 (JUL 12) 8.2 (JUL 11) 7.9 (JUL 09) HB 11.3 (OCT 13) 11.5 (JUL 07) 11.5 (JUL 06) 12.6 (JUL 04) HCT 35.4 (JUL 13) 35.7 (JUL 07) 35.6 (OCT 06) 39.8 (JUL 04) Plt 277 (JUL 13) 263 (OCT 07) 230 (OCT 06) 267 (JUL 04) Na 143 (JUL 13) 142 (OCT 07) 140 (OCT 06) 142 (JUL 04) K 4.1 (JUL 13) 3.8 (JUL 07) 4.2 (JUL 06) 4.4 (JUL 04) Cl 106 (JUL 13) 104 (JUL 07) 104 (JUL 06) 106 (JUL 04) CO2 30 (JUL 13) 31 (JUL 12) 31 (JUL 11) 27 (JUL 09) BUN H 23 (JUL 18) 14 (JUL 12) 14 (JUL 11) 19 (JUL 09) Cr 1.00 (JUL 13) 0.90 (JUL 07) 0.90 (JUL 06) H 1.10 (JUL 09) Glu R H 213 (JUL 18) H 202 (JUL 12) H 248 (JUL 11) H 207 (JUL 09) Ca 9.4 (JUL 18) 9.0 (JUL 07) 9.0 (JUL 06) 9.4 (JUL 09) PT 9.9 (JUL 09) 10.1 (JUL 08) INR 0.9 (JUL 09) 0.9 (JUL 08) PTT 28.0 (JUL 08) AST 18 (JUL 12) 16 (JUL 09) 17 (JUL 03) ALT 25 (JUL 12) 23 (JUL 09) 21 (JUL 08) ALK P 56 (JUL 12) 69 (JUL 09) 63 (JUL 03) T Bili 0.3 (JUL 12) 0.3 (JUL 09) 0.4 (JUL 03) PTN 6.7 (JUL 12) 7.1 (JUL 09) 7.0 (JUL 03) ALB L 2.8 (JUL 12) L 3.1 (JUL 09) L 3.2 (JUL 08) No Radiology Results Found Diagnosis / problem [...] 8. lovenox sq for DVT prophylaxis 9. d/w her also 10. d/w cm, and try to psychiatry unit placement if possible documented in this encounter Plan of Treatment Not on file documented as of this encounter Visit Diagnoses Not on filedocumented in this encounter
--- OUTSIDE RECORDS SUMMARY | 2025-07-29 11:52 | XMS_ITS | Encounter Summary ---
Author Organization [employer] ([place], [place], [place], [place]) Address [address] [place] [address] Care Team Providers Care Signals Analyst Name Role Phone Unavailable Primary Care Provider Unavailabl e Encounter Details Date Type Department Care Team (Late st Contact Info) Description 07/19/2019 Transcribed Document [facility] [place] Family Medicine [address] [place] [address] ProviderChano MD [address], [place] [phone] Social History Tobacco Use Types Packs/Day Years Used Date Smoking Tobacco: Never Assessed Comments Unknown Sex and Gender Information Value Date Recorded Sex Assigned at Not on file Legal Sex Female 2:07 PM CDT Gender Identity Not on file Sexual Orientation Not on file documented as of this encounter Miscellaneous Notes * Cerner Conversion Note - Historical ProviderMD - 07/19/2019 5:42 PM CDT Spiritual Care Short Form Entered On: 07/19/2019 17:45 EDT Performed On: 07/19/2019 17:42 EDT by CARLIE HARRIS General Information, Spiritual Care Reason for Visit : Initial Intervention/Comment/Summary Points : Pt appeared to be sleeping comfortably. Provided spiritual and emotional support to pt and daughter as they reflected on being physically tired from the long hospital stay. They also expressed gratitude for the support of their rafael family and feel God's presence with them . 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 Spiritual critical care nurse practitioner offered prayer at 's request. Yarsani Preference : [employer] CARLIE HARRIS - 07/19/2019 17:42 EDT documented in this encounter Plan of Treatment Not on file documented as of this encounter Visit Diagnoses Not on filedocumented in this encounter
--- OUTSIDE RECORDS SUMMARY | 2025-07-29 11:52 | XMS_ITS | Encounter Summary ---
Author Organization [employer] ([place], [place], [place], [place]) Address [address] [place] [address] Care Team Providers Care Cupola Charger Insulation Name Role Phone Unavailable Primary Care Provider Unavailabl e Encounter Details Date Type Department Care Team (Late st Contact Info) Description 07/15/2019 Transcribed Document [facility] [place] Family Medicine [address] [place] [address] ProviderChano MD [address], [place] [id number] Social History Tobacco Use Types Packs/Day Years Used Date Smoking Tobacco: Never Assessed Comments Unknown Sex and Gender Information Value Date Recorded Sex Assigned at Not on file Legal Sex Female 2:07 PM CDT Gender Identity Not on file Sexual Orientation Not on file documented as of this encounter Miscellaneous Notes * Cerner Conversion Note - Chano Gatica MD - 07/15/2019 12:29 PM CDT Patient: LUDY ANTONIO Age: 68 years Sex: Female : 1950 Associated Diagnoses: None Author: JACINTO OLIVA MD Subjective 68-year-old female who had recent back surgery by Dr. Lucas, readmitted for back pain NS redo back surgery and culture pending ID also consulted and on iv abx but patient cont confusion and agitation and neurology also consulted Ct of head showed old CVA we added seroquel saw her today in am and family in room still confusion but better said her BP is high but better ROS: no fever, no cp or sob, [...] At Bedtime Depakote: 250 mg, Oral, BID DuoNeb 0.5 mg-2.5 mg/3 mL inhalation solution: 3 mL, Nebulized Inhalation, RT_Q6H, PRN: Shortness of Breath Flonase: 1 Puff, Nasal, Daily Haldol: 2 mg, IV Push, Q8H, PRN: Agitation Lantus: 20 Units, SubCutaneous, Daily Lovenox: 40 mg, SubCutaneous, Daily MiraLax: 17 Gram, Oral, Daily, PRN: Constipation Norvasc: 5 mg, Oral, BID SEROquel: 12.5 mg, Oral, BID Tylenol: 650 mg, Oral, Q4H, PRN: Pain (Mild 1-3) Valium: 5 mg, Oral, Q6H, PRN: Spasms Zofran: 4 mg, IV Push, Q4H, PRN: Nausea famotidine: 20 mg, Oral, BID formoterol-mometasone 5 mcg-200 mcg/inh inhalation aerosol: 2 Puff, Inhalation, BID insulin lispro sliding scale: Scale D, SubCutaneous, AC and at Bedtime lisinopril: 40 mg, Oral, At Bedtime loratadine: 10 mg, Oral, At Bedtime metoprolol tartrate: 12.5 mg, Oral, BID morphine: 2 mg, IV Push, Q2H, PRN: Pain (Severe 7-10) oxyCODONE: 10 mg, Oral, Q6H, PRN: Pain (Moderate 4-6) Documented Medications Documented Aciphex: 20 mg, Oral, BID Advair Diskus 250 mcg-50 mcg inhalation powder: 1 Puff, Inhalation, Daily, PRN: as needed, 0 Refill(s) Centrum: 1 Tab, Oral, Daily Cymbalta 60 mg oral delayed release capsule: 1 Cap, Oral, At Bedtime, (do not crush or chew) Flonase 0.05 mg/inh nasal spray: 2 [place], Nasal, Daily, 16 Gram, 0 Refill(s) Lantus: 60 Units, SubCutaneous, At Bedtime, 0 Refill(s) NovoLog: SubCutaneous, TIDAC, 3 times a day- sliding scale., 0 Refill(s) Ultram 50 mg oral tablet: [...] Other (See Comment), 0 Refill(s), Home Medications (14) Active Aciphex 20 mg, Oral, BID Advair Diskus 250 mcg-50 mcg inhalation powder 1 Puff, PRN, Inhalation, Daily Centrum 1 Tab, Oral, Daily Cymbalta 60 mg oral delayed release capsule 60 mg = 1 Cap, Oral, At Bedtime Flonase 0.05 mg/inh nasal spray 2 [place], Nasal, Daily Lantus 60 Units, SubCutaneous, At Bedtime lisinopril 40 mg oral tablet 40 mg = 1 Tab, Oral, At Bedtime loratadine 10 mg oral tablet 10 mg = 1 Tab, Oral, At Bedtime metoprolol tartrate 6.25 mg, Oral, At Bedtime NovoLog , SubCutaneous, TIDAC oxyCODONE 10 mg oral tablet 10 mg = 1 Tab, PRN, Oral, Q6H potassium chloride-sodium chloride 20 mEq, PRN, Oral, Daily Ultram 50 mg oral tablet 100 mg = 2 Tab, PRN, Oral, Q6H Vitamin D3 50,000 Int Units, Oral, See Comment , Medications (21) Active Scheduled: (13) amLODIPine 5 mg tab 5 mg 1 Tab, Oral, BID divalproex 250 mg EC tab 250 mg 1 Tab, Oral, BID DULoxetine DR 30 mg cap 60 mg 2 Cap, Oral, At Bedtime enoxaparin 40 mg/0.4 mL inj 40 mg 0.4 mL, SubCutaneous, Daily famotidine 20 mg tab 20 mg 1 Tab, Oral, BID fluticasone 0.05% nasal spray 1 Puff, Nasal, Daily insulin glargine 1 unit/0.01 mL inj 20 Units 0.2 mL, SubCutaneous, Daily insulin lispro 1 unit/0.01 mL inj Scale D, SubCutaneous, AC and at Bedtime lisinopril 20 mg tab 40 mg 2 Tab, Oral, At Bedtime loratadine 10 mg tab 10 mg 1 Tab, Oral, At Bedtime metoprolol tartrate 25 mg tab 12.5 mg 0.5 Tab, Oral, BID mometasone/formoterol 200/5 mcg inh 2 Puff, Inhalation, BID QUEtiapine 25 mg tab 12.5 mg 0.5 Tab, Oral, BID Continuous: (0) PRN: (8) [...] list: Medical Wears glasses / SNOMED CT 470692119 / Confirmed Sleep apnea///risk / SNOMED CT 209159481 / Confirmed Colon polyps / SNOMED CT 012667154 / Confirmed Right leg pain / SNOMED CT 7230185616 / Confirmed Obesity / SNOMED CT 4767889692 / Confirmed Numbness and tingling//right leg / SNOMED CT 5743573276 / Confirmed Memory deficit///slow recall / SNOMED CT 6987982293 / Confirmed H/O ischemic left MCA stroke / SNOMED CT 3506283402 / Confirmed Hiatal hernia / SNOMED CT 718390578 / Complaint of Fibromyalgia / SNOMED CT 039132346 / Confirmed Lumbar disc disease / SNOMED CT 1239901364 / Confirmed Completely occulded L carotid / SNOMED CT 8712348073 / Confirmed Chest pain///cath negative / SNOMED CT 71156917 / Confirmed Cataract///beginning stage / SNOMED CT 661388802 / Confirmed Back pain / SNOMED CT 9696880584 / Confirmed At risk for sleep apnea / IMO 42212169 / Confirmed Pain//chronic / SNOMED CT 412576244 / Confirmed, Active Problems (24) Acid reflux [...] 24 hrs) Last Charted Minimum Maximum Temp 98.1 (JUL 15:) 97.7 (JUL 15 06:00) 98 (JUL 14:) Apical HR 82 (JUL 15:03) 62 (JUL 14:) 82 (JUL 15:) Mon HR 73 (JUL 15:) 62 (JUL 14:) 74 (JUL 15 06:00) Resp Rate 17 (JUL 15:) 17 (JUL 15:) 18 (JUL 14:) SBP H 150 (JUL 15:) H 150 (JUL 14:) H 159 (JUL 15 06:) DBP 61 (JUL 15:) 60 (JUL 14:) 74 (JUL 15 06:00) MAP 77 (JUL 15:) 77 (JUL 14:32) 89 (JUL 15 06:) SpO2 L 92 (JUL 15:) L 92 (JUL 15:) 100 (JUL 14:32) General: Moderate distress. Neck: Supple, Non-tender, No [...] (Last four charted values) WBC 8.4 (JUL 07) 8.2 (JUL 06) 7.9 (JUL 09) 9.1 (JUL 08) HB 11.5 (JUL 12) 11.5 (JUL 11) 12.6 (JUL 09) 12.0 (JUL 08) HCT 35.7 (JUL 12) 35.6 (JUL 11) 39.8 (JUL 09) 37.3 (JUL 08) Plt 263 (JUL 12) 230 (JUL 11) 267 (JUL 09) 268 (JUL 08) Na 142 (JUL 07) 140 (JUL 11) 142 (JUL 09) 141 (JUL 03) K 3.8 (JUL 12) 4.2 (JUL 11) 4.4 (JUL 09) 3.9 (JUL 08) Cl 104 (JUL 07) 104 (JUL 06) 106 (JUL 04) 105 (JUL 03) CO2 31 (JUL 07) 31 (JUL 06) 27 (JUL 09) 30 (JUL 03) BUN 14 (JUL 12) 14 (JUL 11) 19 (JUL 09) 20 (JUL 03) Cr 0.90 (JUL 07) 0.90 (JUL 06) H 1.10 (JUL 09) 1.00 (JUL 03) Glu R H 202 (JUL 07) H 248 (JUL 06) H 207 (JUL 09) H 153 (JUL 08) Ca 9.0 (JUL 07) 9.0 (JUL 06) 9.4 (JUL 09) 9.7 (JUL 08) PT 9.9 (JUL 09) 10.1 (JUL 08) INR 0.9 (JUL 09) 0.9 (JUL 03) PTT 28.0 (JUL 08) AST 18 (JUL 12) 16 (JUL 09) 17 (JUL 03) ALT 25 (JUL 07) 23 (JUL 09) 21 (JUL 03) ALK P 56 (JUL 07) 69 (JUL 09) 63 (JUL 03) T Bili 0.3 (JUL 07) 0.3 (JUL 09) 0.4 (JUL 08) PTN 6.7 (JUL 12) 7.1 (JUL 09) 7.0 (JUL 08) ALB L 2.8 (JUL 12) L 3.1 (JUL 09) L 3.2 (JUL 08) No Radiology Results Found Diagnosis / problem acute on chronic psychosis- better with seroquel acute encephalopathy- improving Worsening back pain, - Redo right L3-4 minimally invasive surgery microdiscectomy. History of diabetes, hypertension, h/o cerebrovascular accident anxiety UTI on admit leg pain - dominick? related back or PAD Plan: 1. see above medication list for treatment. 2. insulin ss, cont lantus 20 daily 3. f/u culture 4. off abx per ID 5. leg doppler arteria and venous unremarkable 6. pain control 7. Bp control 8. lovenox sq for DVT prophylaxis 9. on seroquel 12.5 mg bid, 10. d/w cm, need rehab documented in this encounter Plan of Treatment Not on file documented as of this encounter Visit Diagnoses Not on filedocumented in this encounter
--- OUTSIDE RECORDS SUMMARY | 2025-07-29 11:52 | XMS_ITS | Encounter Summary ---
Author Organization [employer] ([place], [place], [place], [place]) Address [address] [place] [address] Care Team Providers Care Agricultural Agent Name Role Phone Unavailable Primary Care Provider Unavailabl e Encounter Details Date Type Department Care Team (Late st Contact Info) Description 07/20/2019 Transcribed Document [facility] [place] [facility] [place] [address] ProviderChano MD [address] [place], [place] [id number] Social History Tobacco Use Types Packs/Day Years Used Date Smoking Tobacco: Never Assessed Comments Unknown Sex and Gender Information Value Date Recorded Sex Assigned at Not on file Legal Sex Female 2:07 PM CDT Gender Identity Not on file Sexual Orientation Not on file documented as of this encounter Miscellaneous Notes * Cerner Conversion Note - Chano Gatica MD - 07/20/2019 12:52 PM CDT Patient: LUDY ANTONIO Age: 68 [...] Refill(s) Flonase 0.05 mg/inh nasal spray: 2 [place], Nasal, Daily, 16 Gram, 0 Refill(s) Lantus [...] Daily Flonase 0.05 mg/inh nasal spray 2 [place], Nasal, Daily gabapentin 300 mg oral capsule [...] list: Medical Wears glasses / SNOMED CT 162570891 / Confirmed Sleep apnea///risk / SNOMED CT 090069875 / Confirmed Colon polyps / SNOMED CT 118966683 / Confirmed Right leg pain / SNOMED CT 2457933723 / Confirmed Obesity / SNOMED CT 3239996333 / Confirmed Numbness and tingling//right leg / SNOMED CT 5761314531 / Confirmed Memory deficit///slow recall / SNOMED CT 0234020575 / Confirmed H/O ischemic left MCA stroke / SNOMED CT 7583539399 / Confirmed Hiatal hernia / SNOMED CT 049235503 / Complaint of Fibromyalgia / SNOMED CT 189844211 / Confirmed Lumbar disc disease / SNOMED CT 6319360384 / Confirmed Completely occulded L carotid / SNOMED CT 1767827826 / Confirmed Chest pain///cath negative / SNOMED CT 19214059 / Confirmed Cataract///beginning stage / SNOMED CT 813170041 / Confirmed Back pain / SNOMED CT 5498624382 / Confirmed At risk for sleep apnea / IMO 54396687 / Confirmed Pain//chronic / SNOMED CT 047942007 / Confirmed, Active Problems (24) Acid reflux [...] 24 hrs) Last Charted Minimum Maximum Temp 97.9 (JUL 20 10:38) 97.9 (JUL 20 10:38) 99.1 (JUL 19 19:30) Apical HR 67 (JUL 20 09:37) 67 (JUL 20 09:37) 87 (JUL 19 20:25) Mon HR 68 (JUL 20 10:38) 61 (JUL 20 06:00) 87 (JUL 19 19:30) Resp Rate 17 (JUL 20 10:38) 14 (JUL 20 06:00) 18 (JUL 19 19:30) SBP 127 (JUL 20 10:38) 111 (JUL 19 21:20) H 148 (JUL 19 19:30) DBP 60 (JUL 20 10:38) L 47 (JUL 19 21:20) 79 (JUL 19 19:30) MAP 75 (JUL 20 10:38) 63 (JUL 19 21:20) 92 (JUL 19 19:30) SpO2 L 92 (JUL 20 10:38) L 92 (JUL 20 10:38) 95 (JUL 19 19:30) General: Moderate distress. Neck: Supple, Non-tender, No [...] (JUL 11) 7.9 (JUL 09) HB 11.3 (JUL 18) 11.5 (OCT 07) 11.5 (OCT 06) 12.6 (JUL 04) HCT 35.4 (JUL 13) 35.7 (OCT 07) 35.6 (OCT 06) 39.8 (JUL 04) Plt 277 (JUL 13) 263 (JUL 07) 230 (OCT 06) 267 (JUL 04) Na 143 (OCT 13) 142 (OCT 07) 140 (OCT 06) 142 (JUL 04) K 4.1 (JUL 13) 3.8 (JUL 07) 4.2 (JUL 06) 4.4 (JUL 04) Cl 106 (JUL 13) 104 (JUL 07) 104 (JUL 06) 106 (JUL 04) CO2 30 (JUL 13) 31 (JUL 07) 31 (JUL 11) 27 (JUL 09) BUN H 23 (JUL 18) 14 (JUL 12) 14 (JUL 11) 19 (JUL 09) Cr 1.00 (JUL 18) 0.90 (JUL 07) 0.90 (JUL 06) H [...] (JUL 12) 69 (JUL 09) 63 (JUL 08) T Bili 0.3 (JUL 12) 0.3 (JUL 09) 0.4 (JUL 08) PTN [...] norvasc 10. d/w cm, and try to psychiatry unit placement if possible- pending Electronically signed by Summer, [facility] [employer] Sales Representative Cerner at 01/23/2023 1:28 PM CDT documented in this encounter Plan of Treatment Not on file documented as of this encounter Visit Diagnoses Not on filedocumented in this encounter
--- OUTSIDE RECORDS SUMMARY | 2025-07-29 11:52 | XMS_ITS | Encounter Summary ---
Author Organization [employer] ([place], [place], [place], [place]) Address [address] [place] [address] Care Team Providers Care Data Analytics Developer Name Role Phone Unavailable Primary Care Provider Unavailabl e Encounter Details Date Type Department Care Team (Late st Contact Info) Description 07/16/2019 Transcribed Document [facility] [place] [facility] [place] [address] ProviderChano MD [address] [place], [place] [id number] Social History Tobacco Use Types Packs/Day Years Used Date Smoking Tobacco: Never Assessed Comments Unknown Sex and Gender Information Value Date Recorded Sex Assigned at Not on file Legal Sex Female 2:07 PM CDT Gender Identity Not on file Sexual Orientation Not on file documented as of this encounter Miscellaneous Notes * Cerner Conversion Note - Chano ProviderMD - 07/16/2019 1:23 PM CDT Patient: LUDY ANTONIO Age: 68 [...] Ct of head showed old CVA seroquel dose also increased saw her today in am and d/c cm still confusion but better bp better said her bed uncomfortable and she want to go to [facility] her glucose level also high > 200 ROS: no fever, no cp or sob, [...] Q8H, PRN: Agitation Lantus: 20 Units, SubCutaneous, BID Lovenox: 40 mg, SubCutaneous, Daily MiraLax: 17 Gram, Oral, Daily, PRN: Constipation Norvasc: 5 mg, Oral, BID SEROquel: 12.5 mg, Oral, BID Tylenol: 650 mg, Oral, Q4H, PRN: Pain (Mild 1-3) Valium: 5 mg, Oral, Q6H, PRN: Spasms Zofran: 4 mg, IV Push, Q4H, PRN: Nausea famotidine: 20 mg, Oral, BID formoterol-mometasone 5 mcg-200 mcg/inh inhalation aerosol: 2 Puff, Inhalation, BID gabapentin: 300 mg, Oral, QPM insulin [...] chew) Flonase 0.05 mg/inh nasal spray: 2 [place], Nasal, Daily, 16 Gram, 0 Refill(s) Lantus: [...] Bedtime Flonase 0.05 mg/inh nasal spray 2 [place], Nasal, Daily Lantus 60 Units, SubCutaneous, At [...] Int Units, Oral, See Comment , Medications (22) Active Scheduled: (14) amLODIPine 5 mg tab 5 mg 1 [...] QPM insulin glargine 1 unit/0.01 mL inj 20 Units 0.2 mL, SubCutaneous, BID insulin lispro 1 unit/0.01 [...] list: Medical Wears glasses / SNOMED CT 673242224 / Confirmed Sleep apnea///risk / SNOMED CT 146859397 / Confirmed Colon polyps / SNOMED CT 022349560 / Confirmed Right leg pain / SNOMED CT 2958759882 / Confirmed Obesity / SNOMED CT 5174279801 / Confirmed Numbness and tingling//right leg / SNOMED CT 4367875317 / Confirmed Memory deficit///slow recall / SNOMED CT 6207441231 / Confirmed H/O ischemic left MCA stroke / SNOMED CT 1494405262 / Confirmed Hiatal hernia / SNOMED CT 112730839 / Complaint of Fibromyalgia / SNOMED CT 920851217 / Confirmed Lumbar disc disease / SNOMED CT 1757648511 / Confirmed Completely occulded L carotid / SNOMED CT 5956952844 / Confirmed Chest pain///cath negative / SNOMED CT 40521514 / Confirmed Cataract///beginning stage / SNOMED CT 389060498 / Confirmed Back pain / SNOMED CT 3800889738 / Confirmed At risk for sleep apnea / IMO 09085787 / Confirmed Pain//chronic / SNOMED CT 536560842 / Confirmed, Active Problems (24) Acid reflux [...] 24 hrs) Last Charted Minimum Maximum Temp 98.2 (JUL 16:) 97.9 (JUL 16 02:00) 99.2 (JUL 16:28) Apical HR 76 (JUL 16 09:16) 76 (JUL 16 09:16) 85 (JUL 15 20:09) Mon HR 73 (JUL 16:) 69 (JUL 15 18:58) 81 (JUL 16:28) Resp Rate 18 (JUL 16:) 16 (JUL 16:28) 18 (JUL 15 18:58) SBP 133 (JUL 16:) 133 (JUL 15 15:09) H 160 (JUL 16 02:00) DBP L 50 (JUL 16:41) L 50 (JUL 16:41) 65 (JUL 15 18:58) MAP 70 (JUL 16:41) 68 (JUL 15 15:09) 92 (JUL 15 18:58) SpO2 94 (JUL 16 06:45) 94 (JUL 16 06:45) 97 (JUL 15 15:09) General: Moderate distress. Neck: Supple, Non-tender, No [...] (Last four charted values) WBC 8.4 (JUL 12) 8.2 (JUL 11) 7.9 (JUL 09) 9.1 (JUL 08) HB 11.5 (JUL 12) 11.5 (JUL 11) 12.6 (JUL 09) 12.0 (JUL 08) HCT 35.7 (JUL 12) 35.6 (JUL 11) 39.8 (JUL 09) 37.3 (JUL 03) Plt 263 (JUL 07) 230 (JUL 06) 267 (JUL 09) 268 (JUL 03) Na 142 (JUL 07) 140 (JUL 11) 142 (JUL 09) 141 (JUL 03) K 3.8 (JUL 07) 4.2 (JUL 06) 4.4 (JUL 04) 3.9 (JUL 03) Cl 104 (JUL 07) 104 (JUL 06) 106 (JUL 04) 105 (JUL 03) CO2 31 (JUL 07) 31 (OCT 06) 27 (JUL 04) 30 (JUL 03) BUN 14 (JUL 07) 14 (JUL 06) 19 (JUL 09) 20 (JUL 03) Cr 0.90 (JUL 07) 0.90 (JUL 06) H 1.10 (JUL 09) 1.00 (JUL 08) Glu R H 202 (JUL 07) H 248 (JUL 06) H 207 (JUL 04) H 153 (JUL 03) Ca 9.0 (JUL 07) 9.0 (OCT 06) 9.4 (JUL 04) 9.7 (JUL 03) PT 9.9 (JUL 09) 10.1 (JUL 03) INR 0.9 (OCT 04) 0.9 (JUL 03) PTT 28.0 (JUL 03) AST 18 (JUL 07) 16 (JUL 04) 17 (JUL 03) ALT 25 (JUL 07) 23 (JUL 04) 21 (JUL 03) ALK P 56 (JUL 07) 69 (OCT 04) 63 (JUL 08) T Bili 0.3 (JUL [...] admit leg pain - dominick? related back DM2 Plan: 1. see above medication list for treatment. 2. insulin ss, increase lantus 20 bid 3. f/u culture 4. off abx per ID 5. leg doppler arteria and venous unremarkable 6. pain control 7. Bp control 8. lovenox sq for DVT prophylaxis 9. on seroquel 12.5 mg bid, check EKG today 10. d/w cm, need rehab , may get one on friday? documented in this encounter Plan of Treatment Not on file documented as of this encounter Visit Diagnoses Not on filedocumented in this encounter
--- OUTSIDE RECORDS SUMMARY | 2025-07-29 11:52 | XMS_ITS | Encounter Summary ---
Author Organization [employer] ([place], [place], [place], [place]) Address [address] [place] [address] Care Team Providers Care Supervisor Weaving Name Role Phone Unavailable Primary Care Provider Unavailabl e Encounter Details Date Type Department Care Team (Late st Contact Info) Description 07/19/2019 Transcribed Document [facility] [place] [address] [place] [address] ProviderChano MD [address], [place] [id number] Social History Tobacco Use Types Packs/Day Years [...] 07/19/2019 10:19 AM CDT Attempt to Treat, PT Entered On: 07/19/2019 10:21 EDT Performed On: 07/19/2019 10:19 EDT by PING PINEDA, PT Attempt to Treat Unable to Treat Due To : Patient Refusal Inability to Treat Comment : Pt refuses PTx this a.m. saying, My and I are at odds with each other this morning and it's really not a good morning. I'm not doing therapy now . encourages pt to participate but she refuses continually. Dalton HOGAN, aware. Will try pm. Notification : Dalton HOGAN. PING PINEDA, PT - 07/19/2019 10:19 EDT documented in this encounter Plan of Treatment Not on file documented as of this encounter Visit Diagnoses Not on filedocumented in this encounter
--- OUTSIDE RECORDS SUMMARY | 2025-07-29 11:52 | XMS_ITS | Encounter Summary ---
Author Organization [employer] ([place], [place], [place], [place]) Address [address] [place] [address] Care Team Providers Care Mechanical Adjuster Name Role Phone Unavailable Primary Care Provider Unavailabl e Encounter Details Date Type Department Care Team (Late st Contact Info) Description 07/17/2019 Transcribed Document [facility] [place] Family Medicine [facility] [place] [address] ProviderChano MD [address], [place] [id number] Social History Tobacco Use Types Packs/Day Years Used Date Smoking Tobacco: Never Assessed Comments Unknown Sex and Gender Information Value Date Recorded Sex Assigned at Not on file Legal Sex Female 2:07 PM CDT Gender Identity Not on file Sexual Orientation Not on file documented as of this encounter Miscellaneous Notes * Cerner Conversion Note - Chano Gatica MD - 07/17/2019 9:20 AM CDT Patient: LUDY ANTONIO Age: 68 years [...] also increased saw her today in am with her nurse still confusion but better bp better said sleepy EKG Qt 378 normal ROS: no fever, no cp or sob, [...] At Bedtime Depakote: 250 mg, Oral, BID Dulera 200 mcg-5 mcg/inh inhalation aerosol: 2 Puff, Inhalation, RT_Q12H DuoNeb 0.5 mg-2.5 mg/3 mL inhalation solution: [...] chew) Flonase 0.05 mg/inh nasal spray: 2 [place], Nasal, Daily, 16 Gram, 0 Refill(s) Lantus: [...] Bedtime Flonase 0.05 mg/inh nasal spray 2 [place], Nasal, Daily Lantus 60 Units, SubCutaneous, At [...] mometasone/formoterol 200/5 mcg inh 2 Puff, Inhalation, RT_Q12H QUEtiapine 25 mg tab 6.25 mg 0.25 [...] list: Medical Wears glasses / SNOMED CT 510179583 / Confirmed Sleep apnea///risk / SNOMED CT 272117434 / Confirmed Colon polyps / SNOMED CT 184838173 / Confirmed Right leg pain / SNOMED CT 0620084188 / Confirmed Obesity / SNOMED CT 0060101972 / Confirmed Numbness and tingling//right leg / SNOMED CT 8730491376 / Confirmed Memory deficit///slow recall / SNOMED CT 5093801727 / Confirmed H/O ischemic left MCA stroke / SNOMED CT 5301809880 / Confirmed Hiatal hernia / SNOMED CT 972377064 / Complaint of Fibromyalgia / SNOMED CT 630535337 / Confirmed Lumbar disc disease / SNOMED CT 9371784711 / Confirmed Completely occulded L carotid / SNOMED CT 7518711864 / Confirmed Chest pain///cath negative / SNOMED CT 40651968 / Confirmed Cataract///beginning stage / SNOMED CT 022304080 / Confirmed Back pain / SNOMED CT 1719279824 / Confirmed At risk for sleep apnea / IMO 57623688 / Confirmed Pain//chronic / SNOMED CT 931178082 / Confirmed, Active Problems (24) Acid reflux [...] 24 hrs) Last Charted Minimum Maximum Temp 97.8 (JUL 17 10:30) 97.8 (JUL 17 10:30) 98 (JUL 16:) Apical HR 69 (JUL 17 09:07) 68 (JUL 16 21:05) 69 (JUL 17 09:07) Mon HR 59 (JUL 17 10:30) 59 (JUL 17 06:00) 69 (JUL 16 18:13) Resp Rate 18 (JUL 17 10:30) 17 (JUL 16 18:13) 18 (JUL 16:) SBP 133 (JUL 17 09:00) 133 (JUL 17 09:00) H 152 (JUL 16:) DBP L 46 (JUL 17 09:00) L 46 (JUL 17 09:00) 69 (JUL 16:) MAP 70 (JUL 17 09:00) 70 (JUL 17 09:00) 92 (JUL 16:) SpO2 94 (JUL 17 10:30) 94 (JUL 17 10:30) 96 (JUL 16 18:13) General: Moderate distress. Neck: Supple, Non-tender, No [...] (JUL 11) 142 (JUL 09) 141 (JUL 08) K 3.8 (JUL 07) 4.2 (JUL 06) 4.4 (JUL 09) 3.9 (JUL 03) Cl 104 (JUL 07) 104 (JUL 06) 106 (JUL 04) 105 (JUL 03) CO2 31 (JUL 07) 31 (JUL 06) 27 (JUL 09) 30 (JUL 03) BUN 14 (JUL 07) 14 (OCT 06) 19 (JUL 09) 20 (JUL 03) Cr 0.90 (JUL 07) 0.90 (JUL 06) H 1.10 (JUL 09) 1.00 (JUL 08) Glu R H 202 (JUL 07) H 248 (JUL 06) H 207 (JUL 09) H 153 (JUL 03) Ca 9.0 (JUL 07) 9.0 (JUL 06) 9.4 (JUL 09) 9.7 (JUL 08) PT 9.9 (JUL 09) 10.1 (JUL 08) INR 0.9 (JUL 09) 0.9 (JUL 03) PTT 28.0 (JUL 03) AST 18 (JUL 07) 16 (JUL 04) 17 (OCT 03) ALT 25 (JUL 07) 23 (JUL 04) 21 (JUL 03) ALK P 56 (JUL 07) 69 (JUL 09) 63 (JUL 03) T Bili 0.3 (OCT 07) 0.3 (JUL 09) 0.4 (JUL 08) [...] admit leg pain - dominick? related back Plan: 1. see above medication list for treatment. 2. insulin ss, on lantus 20 bid 3. f/u culture 4. off abx per ID 5. decrease seroquel to 6.25 bid 6. pain control 7. Bp control 8. lovenox sq for DVT prophylaxis 9. d/w her nurse in room documented in this encounter Plan of Treatment Not on file documented as of this encounter Visit Diagnoses Not on filedocumented in this encounter
--- OUTSIDE RECORDS SUMMARY | 2025-07-29 11:52 | XMS_ITS | Encounter Summary ---
Author Organization [employer] ([place], [place], [place], [place]) Address [address] [place] [address] Care Team Providers Care Cleaning Attendant Name Role Phone Unavailable Primary Care Provider Unavailabl e Encounter Details Date Type Department Care Team (Late st Contact Info) Description 07/19/2019 Transcribed Document [facility] [place] [facility] [place] [address] Chano Gatica MD [address], [place] [id number] Social History Tobacco Use Types Packs/Day Years Used Date Smoking Tobacco: Never Assessed Comments Unknown Sex and Gender Information Value Date Recorded Sex Assigned at Not on file Legal Sex Female 2:07 PM CDT Gender Identity Not on file Sexual Orientation Not on file documented as of this encounter Miscellaneous Notes * Cerner Conversion Note - Chano Gatcia MD - 07/19/2019 8:27 AM CDT Patient: LUDY ANTONIO Age: 68 Years Sex: Female : 1950 Subjective C/o back and right leg pain. Walked 85 feet with PT yesterday. Vital Signs T: 36.6 ??C TMIN: 36.3 ??C TMAX: 36.7 ??C HR: 74(Monitored) RR: 16 BP: 141/60 SpO2: 96% Physical Exam sitting on eob a/a/o, nad maew Assessment/Plan POD#10 redo right L3-4 minimally invasive microdiscectomy with Dr. 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 Medications Cymbalta, 60 mg= 2 Cap, Oral, At Bedtime Depakote, 250 mg= 1 Tab, Oral, BID Desenex AF 2% topical powder, 1 Application, Topical, Q12H Diflucan, 100 mg= 1 Tab, Oral, Daily Dulera 200 mcg-5 mcg/inh inhalation aerosol, 2 Puff, Inhalation, RT_Q12H DuoNeb 0.5 mg-2.5 mg/3 mL inhalation solution, 3 mL, Nebulized Inhalation , RT_Q6H, PRN famotidine, 20 mg= 1 Tab, Oral, BID Flonase, 1 Puff, Nasal, Daily gabapentin, 300 mg= 1 Cap, Oral, QPM Haldol, 2 mg= 0.4 mL, IV Push, Q8H, PRN insulin lispro sliding scale, Scale D, SubCutaneous, AC and at Bedtime Lantus, 25 Units= 0.25 mL, SubCutaneous, BID Lidoderm 5% topical film, 3 Patch, TransDermal, Daily lisinopril, 40 mg= 2 Tab, Oral, At Bedtime loratadine, 10 mg= 1 Tab, Oral, At Bedtime Lovenox, 40 mg= 0.4 mL, SubCutaneous, Daily Magic Mouthwash, 5 mL, Oral, Q6H metoprolol tartrate, 12.5 mg= 0.5 Tab, Oral, BID MiraLax, 17 Gram= 1 Packet, Oral, Daily, PRN morphine, 2 mg= 1 mL, IV Push, Q2H, PRN Norvasc, 5 mg= 1 Tab, Oral, BID oxyCODONE, 10 mg= 2 Tab, Oral, Q6H, PRN SEROquel, 6.25 mg= 0.25 Tab, Oral, BID Tylenol, 650 mg= 2 Tab, Oral, Q4H, PRN Valium, 5 mg= 1 Tab, Oral, Q6H, PRN Zofran, 4 mg= 2 mL, IV Push, Q4H, PRN Lab Results Test Name Test Result Date/Time Device Comment 1 Protocols Followed 07/19/2019 06:00 EDT Device Comment 1 Protocols Followed 07/18/2019 19:45 EDT Device Comment 1 Notified Nurse RBV 07/18/2019 16:10 EDT Glucose POC2 151 mg/dL (High) 07/19/2019 06:00 EDT Glucose POC2 251 mg/dL (High) 07/18/2019 19:45 EDT Glucose POC2 231 mg/dL (High) 07/18/2019 16:10 EDT Glucose POC2 246 mg/dL (High) 07/18/2019 11:22 EDT Electronically signed by Summer, [facility] Conversion Aerobics Teacher Cerner at 01/23/2023 1:14 PM CDT documented in this encounter Plan of Treatment Not on file documented as of this encounter Visit Diagnoses Not on filedocumented in this encounter
--- OUTSIDE RECORDS SUMMARY | 2025-07-29 11:52 | XMS_ITS | Encounter Summary ---
Author Organization [employer] ([place], [place], [place], [place]) Address [address] [place] [address] Care Team Providers Care Assembler Tubing Name Role Phone Unavailable Primary Care Provider Unavailabl e Encounter Details Date Type Department Care Team (Late st Contact Info) Description 07/18/[address] [facility] [place] [facility] [place] [address] ProviderChano MD [facility] [address] [place], [place] [id number] Social History Tobacco Use Types Packs/Day Years Used Date Smoking Tobacco: Never Assessed Comments Unknown Sex and Gender Information Value Date Recorded Sex Assigned at Not on file Legal Sex Female 2:07 PM CDT Gender Identity Not on file Sexual Orientation Not on file documented as of this encounter Miscellaneous Notes * Cerner Conversion Note - Chano Gatica MD - 07/18/2019 12:35 PM CDT Patient: LUDY ANTONIO Age: 68 [...] her today in am with her nurse and she went to bath with walker still confusion but much better today bp better said sleep good last night c/o yeast infection mouth sore and groin area itching ROS: no fever, no cp or sob, [...] Topical, Q12H Diflucan: 100 mg, Oral, Daily Dulera 200 mcg-5 mcg/inh inhalation aerosol: 2 [...] chew) Flonase 0.05 mg/inh nasal spray: 2 [place], Nasal, Daily, 16 Gram, 0 Refill(s) Lantus: [...] Bedtime Flonase 0.05 mg/inh nasal spray 2 [place], Nasal, Daily Lantus 60 Units, SubCutaneous, At [...] Int Units, Oral, See Comment , Medications (26) Active Scheduled: (18) amLODIPine 5 mg tab 5 mg 1 [...] pwd 45 g 1 Application, Topical, Q12H mometasone/formoterol 200/5 mcg inh 2 Puff, Inhalation, [...] list: Medical Wears glasses / SNOMED CT 052980736 / Confirmed Sleep apnea///risk / SNOMED CT 666003471 / Confirmed Colon polyps / SNOMED CT 031194055 / Confirmed Right leg pain / SNOMED CT 3544764413 / Confirmed Obesity / SNOMED CT 6362950655 / Confirmed Numbness and tingling//right leg / SNOMED CT 2491407314 / Confirmed Memory deficit///slow recall / SNOMED CT 8856043190 / Confirmed H/O ischemic left MCA stroke / SNOMED CT 5796375976 / Confirmed Hiatal hernia / SNOMED CT 744524992 / Complaint of Fibromyalgia / SNOMED CT 146310773 / Confirmed Lumbar disc disease / SNOMED CT 6015269109 / Confirmed Completely occulded L carotid / SNOMED CT 3471401673 / Confirmed Chest pain///cath negative / SNOMED CT 55156339 / Confirmed Cataract///beginning stage / SNOMED CT 715845205 / Confirmed Back pain / SNOMED CT 3883187074 / Confirmed At risk for sleep apnea / IMO 93631319 / Confirmed Pain//chronic / SNOMED CT 272936953 / Confirmed, Active Problems (24) Acid reflux [...] 24 hrs) Last Charted Minimum Maximum Temp 97.7 (JUL 18 06:24) 97.7 (JUL 18 06:24) 98.8 (JUL 17 18:38) Apical HR 88 (JUL 18 08:39) 88 (JUL 18 08:39) 88 (JUL 18 08:39) Mon HR 88 (JUL 18 08:27) 67 (JUL 17 18:38) 88 (JUL 18 08:27) Resp Rate 17 (JUL 18 08:) 17 (OCT 12 18:38) 18 (JUL 18 06:24) SBP H 163 (JUL 18 08:27) 131 (JUL 18 01:34) H 163 (JUL 18 08:27) DBP 68 (JUL 18 08:27) L 36 (JUL 17 18:38) 68 (JUL 18 08:27) MAP 98 (JUL 18 08:27) 57 (JUL 18 01:34) 114 (JUL 17 18:38) SpO2 94 (JUL 17 18:38) 94 (JUL 17 18:38) 94 (JUL 17 18:38) General: Moderate distress. Neck: Supple, Non-tender, No [...] (Last four charted values) WBC 7.2 (JUL 13) 8.4 (JUL 07) 8.2 (JUL 06) 7.9 (JUL 04) HB 11.3 (JUL 13) 11.5 (JUL 07) 11.5 (OCT 06) 12.6 (JUL 04) HCT 35.4 (JUL 13) 35.7 (JUL 07) 35.6 (OCT 06) 39.8 (OCT 04) Plt 277 (JUL 13) 263 (JUL 07) 230 (OCT 06) 267 (OCT 04) Na 143 (JUL 13) 142 (JUL 07) 140 (JUL 06) 142 (JUL 04) K 4.1 (JUL 13) 3.8 (OCT 07) 4.2 (OCT 06) 4.4 (OCT 04) Cl 106 (JUL 13) 104 (JUL 07) 104 (OCT 06) 106 (OCT 04) CO2 30 (JUL 13) 31 (JUL 07) 31 (JUL 06) 27 (OCT 04) BUN H 23 (JUL 13) 14 (JUL 07) 14 (OCT 06) 19 (OCT 04) Cr 1.00 (JUL 13) 0.90 (OCT 07) 0.90 (OCT 06) H 1.10 (JUL 04) Glu R H 213 (JUL 13) H 202 (JUL 07) H 248 (JUL 06) H 207 (OCT 04) Ca 9.4 (JUL 18) 9.0 (JUL 12) 9.0 (JUL 11) 9.4 (JUL 09) PT 9.9 (JUL 09) 10.1 (JUL 08) INR 0.9 (JUL 09) 0.9 (JUL 08) PTT 28.0 (JUL 08) AST 18 (JUL 12) 16 (JUL 09) 17 (JUL 08) ALT 25 (JUL 12) 23 (JUL 09) [...] insulin ss, on lantus 25 bid 3. add diflucan, an magic washing 4. off abx per ID 5. decrease seroquel to 6.25 bid 6. pain control 7. Bp control 8. lovenox sq for DVT prophylaxis 9. d/w her nurse in room and f/u CM for d/c plan documented in this encounter Plan of Treatment Not on file documented as of this encounter Visit Diagnoses Not on filedocumented in this encounter
--- OUTSIDE RECORDS SUMMARY | 2025-07-29 11:52 | XMS_ITS | Encounter Summary ---
Author Organization [employer] ([place], [place], [place], [place]) Address [address] [place] [address] Care Team Providers Care Funeral Director/Embalmer/Owner Name Role Phone Unavailable Primary Care Provider Unavailabl e Encounter Details Date Type Department Care Team (Late st Contact Info) Description 04/06/2019 Transcribed Document [facility] [place] [facility] [place] [address] Chano Gatica MD [address], [place] [id number] Social History Tobacco Use Types Packs/Day Years Used Date Smoking Tobacco: Never Assessed Comments Unknown Sex and Gender Information Value Date Recorded Sex Assigned at Not on file Legal Sex Female 2:07 PM CDT Gender Identity Not on file Sexual Orientation Not on file documented as of this encounter Miscellaneous Notes * Cerner Conversion Note - Chano Gatica MD - 04/06/2019 8:55 AM CDT Patient Education Materials Follows: Wound Infection A wound infection happens when germs start to grow in the wound. Germs that cause wound infections are most often bacteria. Other types of infections can occur as well. In some cases, infection can cause the wound to break open. Wound infections need treatment. If a wound infection is not treated, complications can happen. Follow these instructions at home: Medicines ??? Take or apply ifkj-xet-lqqduxi and prescription medicines only as told by your doctor. ??? If you were prescribed antibiotic medicine, take or apply it as told by your doctor. Do not stop using the antibiotic even if your condition improves. Wound care ??? Clean the wound each day or as told by your doctor. ? Wash the wound with mild soap and water. ? Rinse the wound with water to remove all soap. ? Pat the wound dry with a clean towel. Do not rub it. ??? Follow instructions from your doctor about how to take care of your wound. Make sure you: ? Wash your hands with soap and water before you change your bandage (dressing). If you cannot use soap and water, use hand inspector precision assembly. ? Change your bandage as told by your doctor. ? Leave stitches (sutures), skin glue, or skin tape (adhesive) strips in place if your wound has been closed. They may need to stay in place for 2 weeks or longer. If tape strips get loose and curl up, you may trim the loose edges. Do not remove tape strips completely unless your doctor says it is okay. Some wounds are left open to heal on their own. ??? Check your wound every day for signs of infection. Watch for: ? More redness, swelling, or pain. ? More fluid or blood. ? Warmth. ? Pus or a bad smell. General instructions ??? Keep the bandage dry until your doctor says it can be removed. ??? Do not take baths, swim, use a hot tub, or do anything that would put your wound underwater until your doctor says it is okay. ??? Raise (elevate) the injured area above the level of your heart while you are sitting or lying down. ??? Do not scratch or pick at the wound. ??? Keep all follow-up visits as told by your doctor. This is important. Contact a doctor if: ??? Medicine does not help your pain. ??? You have more redness, swelling, or pain in the area of your wound. ??? You have more fluid or blood coming from your wound. ??? Your wound feels warm to the touch. ??? You have pus coming from your wound. ??? You continue to notice a bad smell coming from your wound or your bandage. ??? Your wound that was closed breaks open. Get help right away if: ??? You have a red streak going away from your wound. ??? You have a fever. This information is not intended to replace advice given to you by your health care provider. Make sure you discuss any questions you have with your health care provider. Document Released: 07/01/2009 Document Revised: 02/27/2017 Document Reviewed: 03/11/2016 Elsevier Interactive Patient Education ? 2018 [employer] Fall Prevention in the Home Introduction Falls can cause injuries. They can happen to people of all ages. There are many things you can do to make your home safe and to help prevent falls. What can I do on the outside of my home? Regularly fix the edges of walkways and driveways and fix any cracks. ??? Remove anything that might make you trip as you walk through a door, such as a raised step or threshold. ??? Trim any bushes or trees on the path to your home. ??? Use bright outdoor lighting. ??? Clear any walking paths of anything that might make someone trip, such as rocks or tools. ??? Regularly check to see if handrails are loose or broken. Make sure that both sides of any steps have handrails. ??? Any raised decks and porches should have guardrails on the edges. ??? Have any leaves, snow, or ice cleared regularly. ??? Use sand or salt on walking paths during winter. ??? Clean up any spills in your garage right away. This includes oil or grease spills. What can I do in the bathroom? Use night lights. ??? Install grab bars by the toilet and in the tub and shower. Do not use towel bars as grab bars. ??? Use non-skid mats or decals in the tub or shower. ??? If you need to sit down in the shower, use a plastic, non-slip stool. ??? Keep the floor dry. Clean up any water that spills on the floor as soon as it happens. ??? Remove soap buildup in the tub or shower regularly. ??? Attach bath mats securely with double-sided non-slip rug tape. ??? Do nothave throw rugs and other things on the floor that can make you trip. What can I do in the bedroom? Use night lights. ??? Make sure that you have a light by your bed that is easy to reach. ??? Do notuse any sheets or blankets that are too big for your bed. They should not hang down onto the floor. ??? Have a firm chair that has side arms. You can use this for support while you get dressed. ??? Do nothave throw rugs and other things on the floor that can make you trip. What can I do in the kitchen? Clean up any spills right away. ??? Avoid walking on wet floors. ??? Keep items that you use a lot in ojdl-nb-qbcrv places. ??? If you need to reach something above you, use a strong step stool that has a grab bar. ??? Keep electrical cords out of the way. ??? Do notuse floor vietnamese or wax that makes floors slippery. If you must use wax, use non-skid floor wax. ??? Do nothave throw rugs and other things on the floor that can make you trip. What can I do with my stairs? Do notleave any items on the stairs. ??? Make sure that there are handrails on both sides of the stairs and use them. Fix handrails that are broken or loose. Make sure that handrails are as long as the stairways. ??? Check any carpeting to make sure that it is firmly attached to the stairs. Fix any carpet that is loose or worn. ??? Avoid having throw rugs at the top or bottom of the stairs. If you do have throw rugs, attach them to the floor with carpet tape. ??? Make sure that you have a light switch at the top of the stairs and the bottom of the stairs. If you do not have them, ask someone to add them for you. What else can I do to help prevent falls? Wear shoes that:? Do nothave high heels. ? Have rubber bottoms. ? Are comfortable and fit you well. ? Are closed at the toe. Do not wear sandals. ??? If you use a stepladder:? Make sure that it is fully opened. Do not climb a closed stepladder. ? Make sure that both sides of the stepladder are locked into place. ? Ask someone to hold it for you, if possible. ??? Clearly reinaldo and make sure that you can see:? Any grab bars or handrails. ? First and last steps. ? Where the edge of each step is. ??? Use tools that help you move around (mobility aids) if they are needed. These include:? Canes. ? Walkers. ? Scooters. ? Crutches. ??? Turn on the lights when you go into a dark area. Replace any light bulbs as soon as they burn out. ??? Set up your furniture so you have a clear path. Avoid moving your furniture around. ??? If any of your floors are uneven, fix them. ??? If there are any pets around you, be aware of where they are. ??? Review your medicines with your doctor. Some medicines can make you feel dizzy. This can increase your chance of falling. Ask your doctor what other things that you can do to help prevent falls. This information is not intended to replace advice given to you by your health care provider. Make sure you discuss any questions you have with your health care provider. Document Released: 07/19/2010 Document Revised: 02/27/2017 Document Reviewed: 10/27/2015 ? 2017 Elsevier documented in this encounter Plan of Treatment Not on file documented as of this encounter Visit Diagnoses Not on filedocumented in this encounter
--- OUTSIDE RECORDS SUMMARY | 2025-07-29 11:52 | XMS_ITS | Encounter Summary ---
Author Organization [employer] ([place], [place], [place], [place]) Address [address] [place] [address] Care Team Providers Care Food Service Ambassador Name Role Phone Unavailable Primary Care Provider Unavailabl e Encounter Details Date Type Department Care Team (Late st Contact Info) Description 04/06/2019 Transcribed Document [facility] [place] Medicine [address] [place] [address] ProviderChano MD [address] [id number] Social History Tobacco Use Types Packs/Day Years Used Date Smoking Tobacco: Never Assessed Comments Unknown Sex and Gender Information Value Date Recorded Sex Assigned at Not on file Legal Sex Female 2:07 PM CDT Gender Identity Not on file Sexual Orientation Not on file documented as of this encounter Miscellaneous Notes * Cerner Conversion Note - Historical ProviderMD - 04/06/2019 9:43 AM CDT Nursing Discharge Summary Entered On: 04/06/2019 9:43 EDT Performed On: 04/06/2019 9:43 EDT by Shani Dewitt Rn Discharge Documentation Discharge Date/Time : 04/06/2019 9:44 EDT Patient Disposition, General : Discharge Discharge To : Home with ambulatory/outpatient follow-up Mode Of Departure, General Discharge : Private vehicle Accompanied By, Discharge : Spouse IV Discontinued : Yes Personal Belongings With Patient : Yes Prescriptions Given to Patient : No Discharge Instructions Reviewed With, Opportunity For Questions Given : Patient, Spouse Patient Education Completed : Yes Teaching Method : Explanation Teaching Evaluation : Verbalizes understanding Shani Dewitt Rn - 04/06/2019 9:43 EDT Electronically signed by Summer [facility] Conversion Reading Assistant Cerner at 01/23/2023 1:29 PM CDT documented in this encounter Plan of Treatment Not on file documented as of this encounter Visit Diagnoses Not on filedocumented in this encounter
--- OUTSIDE RECORDS SUMMARY | 2025-07-29 11:52 | XMS_ITS | Encounter Summary ---
Author Organization [employer] ([place], [place], [place], [place]) Address [address] [place] [address] Care Team Providers Care Hull Builder Name Role Phone Unavailable Primary Care Provider Unavailabl e Encounter Details Date Type Department Care Team (Late st Contact Info) Description 07/14/2019 Transcribed Document [facility] [place] Medicine [address] [place] [address] ProviderChano MD [address] [place], [place] [id number] Social History Tobacco Use Types Packs/Day Years Used Date Smoking Tobacco: Never Assessed Comments Unknown Sex and Gender Information Value Date Recorded Sex Assigned at Not on file Legal Sex Female 2:07 PM CDT Gender Identity Not on file Sexual Orientation Not on file documented as of this encounter Miscellaneous Notes * Cerner Conversion Note - Historical ProviderMD - 07/14/2019 2:00 AM CDT Microfilm Operator Details Entered On: 07/14/2019 2:28 EDT Performed On: 07/14/2019 2:00 EDT by Angelica Michel Rn-Flex Team Order Details Transport Mode Order Detail : Wheelchair Isolation Precautions Order Detail : Standard Precautions Order Detail : 0 IV Order Detail : 1 Oxygen Order Detail : 0 Nurse Collect Order Detail : 0 Lift/Transfer : Maximal assist Central Line Order Detail : No Room Service : Needs Assistance Arterial Line : No Angelica Michel Rn-Flex Team - 07/14/2019 2:28 EDT documented in this encounter Plan of Treatment Not on file documented as of this encounter Visit Diagnoses Not on filedocumented in this encounter
--- OUTSIDE RECORDS SUMMARY | 2025-07-29 11:52 | XMS_ITS | Encounter Summary ---
Author Organization [employer] ([place], [place], [place], [place]) Address [address] [place] [address] Care Team Providers Care Wire Basket Maker Name Role Phone Unavailable Primary Care Provider Unavailabl e Encounter Details Date Type Department Care Team (Late st Contact Info) Description 07/19/2019 Transcribed Document [facility] [place] [facility] [place] [address] ProviderChano MD [address] [place] [address] Social History Tobacco Use Types Packs/Day Years Used Date Smoking Tobacco: Never Assessed Comments Unknown Sex and Gender Information Value Date Recorded Sex Assigned at Not on file Legal Sex Female 2:07 PM CDT Gender Identity Not on file Sexual Orientation Not on file documented as of this encounter Miscellaneous Notes * Cerner Conversion Note - Chano ProviderMD - 07/19/2019 3:27 PM CDT Care Management Assessment/Plan Entered On: 07/19/2019 15:35 EDT Performed On: 07/19/2019 15:27 EDT by RODOLFO TOUSSAINT ASSESSMENT CLINICIAN I Care Management Note Care Management Note : The following hospitals have been contacted and faxed clinical information for consideration of inpt debbie psych: [facility]- phone [phone] Fx:[phone] [facility]-PH:[phone] Fx: [phone] [place], [place])- Fx:[phone] [facility]- Fx:[phone] [facility]- Fx:[phone] [facility]- Fx:[phone] [facility]- Fx:[phone] [facility]- Fx:[phone] [facility]- Fx:[phone] [facility]- Fx:[phone] --declined pt [facility]- Documentation Status Complete : Yes RODOLFO TOUSSAINT, FAMILY HELPER I - 07/19/2019 15:27 EDT documented in this encounter Plan of Treatment Not on file documented as of this encounter Visit Diagnoses Not on filedocumented in this encounter
--- OUTSIDE RECORDS SUMMARY | 2025-07-29 11:52 | XMS_ITS | Encounter Summary ---
Author Organization [employer] ([place], [place], [place], [place]) Address [address] [place] [address] Care Team Providers Care Fishing Vessel Mate Name Role Phone Unavailable Primary Care Provider Unavailabl e Encounter Details Date Type Department Care Team (Late st Contact Info) Description 07/14/2019 Transcribed Document [facility] [place] [facility] [place] [address] [place] [address] ProviderChano MD [address] [place], [place] [id number] Social History Tobacco Use Types Packs/Day Years Used Date Smoking Tobacco: Never Assessed Comments Unknown Sex and Gender Information Value Date Recorded Sex Assigned at Not on file Legal Sex Female 2:07 PM CDT Gender Identity Not on file Sexual Orientation Not on file documented as of this encounter Miscellaneous Notes * [employer]ner Conversion Note - Historical ProviderMD - 07/14/2019 5:00 AM CDT Chart Check - Review Order Profile Entered On: 07/14/2019 2:29 EDT Performed On: 07/14/2019 2:29 EDT by Angelica Michel Rn-Flex Team Chart Check Powerplans Initiated/Discontinued as Appropriate : Yes All Active Orders Reviewed : Yes Angelica Michel Rn-Flex Team - 07/14/2019 2:29 EDT documented in this encounter Plan of Treatment Not on file documented as of this encounter Visit Diagnoses Not on filedocumented in this encounter
--- OUTSIDE RECORDS SUMMARY | 2025-07-29 11:52 | XMS_ITS | Encounter Summary ---
Author Organization [employer] ([place], [place], [place], [place]) Address [address] [place] [address] Care Team Providers Care Artillery Officer Name Role Phone Unavailable Primary Care Provider Unavailabl e Encounter Details Date Type Department Care Team (Late st Contact Info) Description 07/16/2019 Transcribed Document [facility] [place] [address] [place] [address] ProviderChano MD [address], [place] [phone] Social History Tobacco Use Types Packs/Day Years Used Date Smoking Tobacco: Never Assessed Comments Unknown Sex and Gender Information Value Date Recorded Sex Assigned at Not on file Legal Sex Female 2:07 PM CDT Gender Identity Not on file Sexual Orientation Not on file documented as of this encounter Miscellaneous Notes * Cerner Conversion Note - Chano ProviderMD - 07/16/2019 12:46 PM CDT On Going Discharge Planning Entered On: 07/16/2019 12:46 EDT Performed On: 07/16/2019 12:46 EDT by HORACIO ACHARYA RN-Product Design ManagerCoffee Shop Aide Progress Note Discharge Arrangements : Patient Post-Acute Information Patient Name: LUDY ANTONIO Gender: Female : [birth year] Age: 68 Years No Post-Acute Placement(s) Listed No Post-Acute Service(s) Listed No Curaspan Referral(s) Listed Barriers to Discharge Identified : Clinical Condition of Patient Barriers to Discharge Unresolved : Clinical Condition of Patient HORACIO ACHARYA RN-Product Design Manager - 07/16/2019 12:46 EDT Narrative Progress Note Narrative Progress Note : [facility] for inpatient psych on Thursday 07/19. CM will continue to follow. Historical Progress Note : [facility] declined admission to their psych unit. No word from [facility]. Met with pt's daughter and had lengthy discussion regarding disposition. CM will consult [facility] at time of dc for help with admission to debbie-psych unit somewhere. D/W Dr. Horner and Dr. Jama. CM will continue to follow. HORACIO ACHARYA RN-Product Design Manager - 07/15/19 14:03:13 Spoke to pt's spouse Kian on the phone today. 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 He states he does not want her going to those places as she kows people there. He agrees to referrals to [facility] and [facility] inpatient psych units. Referral sent and spoke to JUSTA Perez at [facility] and Royce RN at [facility]. CM will continue to follow. HORACIO ACHARYA RN-Product Design Manager - 07/14/19 13:36:43 Dr. Valdez consult this [...] CM will continue to follow. HORACIO ACHARYA RN-Product Design Manager - 07/13/19 17:41:20 psych consult referral faxed to Dr. Valdez's office to assess for psychosis. SANJIV VOGT RN-Product Design Manager - 07/11/19 16:14:26 HORACIO ACHARYA RN-Product Design Manager - 07/16/2019 12:46 EDT documented in this encounter Plan of Treatment Not on file documented as of this encounter Visit Diagnoses Not on filedocumented in this encounter
--- OUTSIDE RECORDS SUMMARY | 2025-07-29 11:52 | XMS_ITS | Encounter Summary ---
Author Organization [email or web address] ([place], [place], [place], [place]) Address [address] [place] [address] Care Team Providers Care Right Of Way Maintenance Supervisor Name Role Phone Unavailable Primary Care Provider Unavailabl e Encounter Details Date Type Department Care Team (Late st Contact Info) Description 07/15/2019 Transcribed Document [facility] [place] [address] [place] [address] ProviderChano MD [address] [place], [place] [id number] Social History Tobacco Use Types Packs/Day Years Used Date Smoking Tobacco: Never Assessed Comments Unknown Sex and Gender Information Value Date Recorded Sex Assigned at Not on file Legal Sex Female 2:07 PM CDT Gender Identity Not on file Sexual Orientation Not on file documented as of this encounter Miscellaneous Notes * Cerner Conversion Note - Historical ProviderMD - 07/15/2019 3:31 PM CDT Attempt to Treat, PT Entered On: 07/15/2019 15:32 EDT Performed On: 07/15/2019 15:31 EDT by GEORGES JONES, PT Attempt to Treat Unable to Treat Due To : Patient Refusal Inability to Treat Comment : Pt very lethargic. She refused PT. She said that she just had more pain medication and doesn't feel well. GEORGES JONES, PT - 07/15/2019 15:31 EDT documented in this encounter Plan of Treatment Not on file documented as of this encounter Visit Diagnoses Not on filedocumented in this encounter
--- OUTSIDE RECORDS SUMMARY | 2025-07-29 11:52 | XMS_ITS | Encounter Summary ---
Author Organization [employer] ([place], [place], [place], [place]) Address [address] [place] [address] Care Team Providers Care Returns Supervisor Name Role Phone Unavailable Primary Care Provider Unavailabl e Encounter Details Date Type Department Care Team (Late st Contact Info) Description 04/05/2019 Transcribed Document [facility] [place] [facility] [place] [address] ProviderChano MD [address], [place] [phone] Social History Tobacco Use Types Packs/Day Years Used Date Smoking Tobacco: Never Assessed Comments Unknown Sex and Gender Information Value Date Recorded Sex Assigned at Not on file Legal Sex Female 2:07 PM CDT Gender Identity Not on file Sexual Orientation Not on file documented as of this encounter Miscellaneous Notes * Cerner Conversion Note - Chano ProviderMD - 04/05/2019 3:57 PM CDT Pain Assessment Entered On: 04/05/2019 19:26 EDT Performed On: 04/05/2019 19:00 EDT by HOLDEN CUEVAS RN Intervention Information: HYDROmorphone Performed by HOLDEN CUEVAS RN on 04/05/2019 18:30:00 EDT HYDROmorphone,0.5mg IV Push,Left Mid Forearm,Pain (Severe 7-10) Pain Assessment Pain Assessment : Follow-up assessment Pain Scale Goal : 2 Pain Scale Used : 0-10 Scale Location : Back, lower Onset : Chronic Quality : Throbbing Pain Improved by : Medication, Repositioning Pain Worsened by : Movement Pain Intervention, Drug : Medicated Pain Intervention, Non-Drug : Positioning Pain Improved by Intervention : Yes HOLDEN CUEVAS RN - 04/05/2019 19:25 EDT Pain Scale Intensity : 4 HOLDEN CUEVAS RN - 04/05/2019 19:25 EDT Image 4 - Images currently included in the form version of this document have not been included in the text rendition version of the form. documented in this encounter Plan of Treatment Not on file documented as of this encounter Visit Diagnoses Not on filedocumented in this encounter
--- OUTSIDE RECORDS SUMMARY | 2025-07-29 11:52 | XMS_ITS | Encounter Summary ---
Author Organization [employer] ([place], [place]) Address [address] [place] [address] Care Team Providers Care Student Life Coordinator Name Role Phone Unavailable Primary Care Provider Unavailabl e Encounter Details Date Type Department Care Team (Late st Contact Info) Description 07/15/2019 Transcribed Document [facility] [place] Family [place] [address] [place] [address] ProviderChano MD [address] [place], [place] [phone] Social History Tobacco Use Types Packs/Day Years Used Date Smoking Tobacco: Never Assessed Comments Unknown Sex and Gender Information Value Date Recorded Sex Assigned at Not on file Legal Sex Female 2:07 PM CDT Gender Identity Not on file Sexual Orientation Not on file documented as of this encounter Miscellaneous Notes * Cerner Conversion Note - Historical ProviderMD - 07/15/2019 2:00 AM CDT Insights Analyst Details Entered On: 07/15/2019 3:37 EDT Performed On: 07/15/2019 2:00 EDT by Eriberto Crawley Rn-Resource Order Details Transport Mode Order Detail : Wheelchair Isolation Precautions Order Detail : Standard Precautions Order Detail : 0 IV Order Detail : 1 Oxygen Order Detail : 0 Nurse Collect Order Detail : 0 Lift/Transfer : Maximal assist Central Line Order Detail : No Room Service : Needs Assistance Arterial Line : No Eriberto Crawley Rn-Resource - 07/15/2019 3:37 EDT Electronically signed by Julian Wheeler Conversion Mergers And Acquisitions Manager Cerner at 01/23/2023 1:31 PM CDT documented in this encounter Plan of Treatment Not on file documented as of this encounter Visit Diagnoses Not on filedocumented in this encounter
--- OUTSIDE RECORDS SUMMARY | 2025-07-29 11:52 | XMS_ITS | Encounter Summary ---
Author Organization [employer] ([place], [place], [place], [place]) Address [address] [place] [address] Care Team Providers Care Data Abstractor Name Role Phone Unavailable Primary Care Provider Unavailabl e Encounter Details Date Type Department Care Team (Late st Contact Info) Description 07/20/2019 Transcribed Document [facility] [place] [address] [place] [address] ProviderChano MD [address] [place], [place] [phone] Social History Tobacco Use Types Packs/Day Years Used Date Smoking Tobacco: Never Assessed Comments Unknown Sex and Gender Information Value Date Recorded Sex Assigned at Not on file Legal Sex Female 2:07 PM CDT Gender Identity Not on file Sexual Orientation Not on file documented as of this encounter Miscellaneous Notes * Cerner Conversion Note - Historical ProviderMD - 07/20/2019 9:25 AM CDT Attempt to Treat, PT Entered On: 07/20/2019 11:48 EDT Performed On: 07/20/2019 9:25 EDT by Delon Sams, PT Attempt to Treat Unable to Treat Due To : Patient Refusal Inability to Treat Comment : Pt states that she is not wanting to walk right now. After explaining benefits of PTx Pt became frustrated and states I cant do it right now, I dont know what to tell you Notification : Delon Fernandez, PT - 07/20/2019 11:47 EDT documented in this encounter Plan of Treatment Not on file documented as of this encounter Visit Diagnoses Not on filedocumented in this encounter
--- OUTSIDE RECORDS SUMMARY | 2025-07-29 11:52 | XMS_ITS | Encounter Summary ---
Author Organization [employer] ([place], [place], [place], [place]) Address [address] [place] [address] Care Team Providers Care Vocational Guidance Counselor Name Role Phone Unavailable Primary Care Provider Unavailabl e Encounter Details Date Type Department Care Team (Late st Contact Info) Description 07/20/2019 Transcribed Document [facility] [place] [address] [place] [address] ProviderChano MD [address] [phone] Social History Tobacco Use Types Packs/Day Years Used Date Smoking Tobacco: Never Assessed Comments Unknown Sex and Gender Information Value Date Recorded Sex Assigned at Not on file Legal Sex Female 2:07 PM CDT Gender Identity Not on file Sexual Orientation Not on file documented as of this encounter Miscellaneous Notes * Cerner Conversion Note - Chano ProviderMD - 07/20/2019 3:39 PM CDT On Going Discharge Planning Entered On: 07/20/2019 15:47 EDT Performed On: 07/20/2019 15:39 EDT by HORACIO ACHARYA RN-Software TrainerAutomotive Title Clerk Progress Note Discharge Arrangements : Patient Post-Acute Information Patient Name: LUDY ANTONIO Gender: Female : [birth year] Age: 68 Years No Post-Acute Placement(s) Listed No Post-Acute Service(s) Listed No Curaspan Referral(s) Listed Barriers to Discharge Identified : Clinical Condition of Patient Barriers to Discharge Unresolved : Clinical Condition of Patient Is the Patient Meeting Medical Necessity : Yes HORACIO ACHARYA RN-Software Trainer - 07/20/2019 15:39 EDT Narrative Progress Note Narrative Progress Note : Pt was referred to 18 debbie/psych facilities by [facility]. All have declined admission, some stating she needs physical rehab and/or does not have any acute issues for psych admission. Spouse agreeable to try for SNF admission since she is still requiring assistance with ADL's and bed mobility. [facility], [facility], and [facility]. Referrals sent via [facility]. Spoke to Lisbeth with the [facility]. She states they have a senior ui web developer that can see pt at the facility. She will need to come do a bedside eval. D/W Dr. Horner as well. CM will continue to follow. Historical Progress Note : [facility] consulted. They received MD approval to send referrals to debbie/psych facilities per families request. They do not feel confident pt will be accepted as she has no acute issues right now and she has no SI/HI. If denied, pt will have to dc home with family and HH, likely tomorrow. D/W Dr. Horner and family. CM will continue to follow. HORACIO ACHARYA, RN-Software Trainer - 07/19/19 15:10:43 [facility] eval for inpatient psych on Thursday 07/19. CM will continue to follow. HORACIO ACHARYA RN-Software Trainer - 07/16/19 12:46:58 [place] declined admission to their psych unit. No word from [facility]. Met with pt's daughter and had lengthy discussion regarding disposition. CM will consult [facility] at time of dc for help with admission to debbie-psych unit somewhere. D/W Dr. Horner and Dr. Jama. CM will continue to follow. HORACIO ACHARYA RN-Software Trainer - 07/15/19 14:03:13 Spoke to pt's spouse Kian on the phone today. 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 He states he does not want her going to those places as she kows people there. He agrees to referrals to [facility] and [facility] inpatient psych units. Referral sent and spoke to JUSTA Perez at [facility] and Royce RN at [facility]. CM will continue to follow. HORACIO ACHARYA RN-Software Trainer - 07/14/19 13:36:43 Dr. Valdez consult this [...] CM will continue to follow. HORACIO ACHARYA RN-Software Trainer - 07/13/19 17:41:20 psych consult referral faxed to Dr. Valdez's office to assess for psychosis. SANJIV VOGT RN-Software Trainer - 07/11/19 16:14:26 HORACIO ACHARYA RN-Software Trainer - 07/20/2019 15:39 EDT documented in this encounter Plan of Treatment Not on file documented as of this encounter Visit Diagnoses Not on filedocumented in this encounter
--- OUTSIDE RECORDS SUMMARY | 2025-07-29 11:52 | XMS_ITS | Encounter Summary ---
Author Organization [employer] ([place], [place], [place], [place]) Address [address] [place] [address] Care Team Providers Care Floral Associate Name Role Phone Unavailable Primary Care Provider Unavailabl e Encounter Details Date Type Department Care Team (Late st Contact Info) Description 07/15/2019 Transcribed Document [facility] [place] [address] [place] [address] ProviderChano MD [address] [place], [place] [phone] Social History Tobacco Use Types Packs/Day Years Used Date Smoking Tobacco: Never Assessed Comments Unknown Sex and Gender Information Value Date Recorded Sex Assigned at Not on file Legal Sex Female 2:07 PM CDT Gender Identity Not on file Sexual Orientation Not on file documented as of this encounter Miscellaneous Notes * Cerner Conversion Note - Historical ProviderMD - 07/15/2019 7:41 AM CDT Patient: LUDY ANTONIO Age: 68 Years Sex: Female : 1950 Subjective Naeo. Right leg pain similar to preop. Walked 120 feet with PT yesterday. Vital Signs T: 36.5 ??C TMIN: 36.3 ??C TMAX: 36.9 ??C HR: 74(Monitored) RR: 18 BP: 159/74 SpO2: 96% Oxygen Settings (Last) Oxygen Therapy Mode: Room air (07/15/19 06:00:00) Oxygen Flow Rate: 1 Liter/Min (07/10/19 10:43:00) Physical Exam a/a/o, agitated maew dressing dry Assessment/Plan POD#6 redo right L3-4 minimally invasive microdiscectomy with Dr. Lucas broad spectrum abx per ID: cultures negative thus far Haldol and Depakote per psych she is unsure if back and leg pain have improved she would like to be considered for [facility] Prophylaxis - Medical Enoxaparin 40 mg, SubCutaneous, Inj, Daily, Routine, Start 07/11/19 11:57:00 EDT (JACINTO OLIVA MD) Sequential Compression Device Start: 07/08/19 22:19:00 EDT, Bilateral, Length: Knee High, While patient is in bed, Continuous Order (TOM MORSE) Sequential Compression Device Start: 07/08/19 22:19:00 EDT, Bilateral, Continuous Order (TOM MORSE) Medications Cymbalta, 60 mg= 2 Cap, Oral, At Bedtime Depakote, 250 mg= 1 Tab, Oral, BID DuoNeb 0.5 mg-2.5 mg/3 mL inhalation solution, 3 mL, Nebulized Inhalation , RT_Q6H, PRN famotidine, 20 mg= 1 Tab, Oral, BID Flonase, 1 Puff, Nasal, Daily formoterol-mometasone 5 mcg-200 mcg/inh inhalation aerosol, 2 Puff, Inhalation, BID Haldol, 2 mg= 0.4 mL, IV Push, Q8H, PRN insulin lispro sliding scale, Scale D, SubCutaneous, AC and at Bedtime Lantus, 20 Units= 0.2 mL, SubCutaneous, Daily lisinopril, 40 mg= 2 Tab, Oral, At Bedtime loratadine, 10 mg= 1 Tab, Oral, At Bedtime Lovenox, 40 mg= 0.4 mL, SubCutaneous, Daily metoprolol tartrate, 12.5 mg= 0.5 Tab, Oral, BID MiraLax, 17 Gram= 1 Packet, Oral, Daily, PRN morphine, 2 mg= 1 mL, IV Push, Q2H, PRN Norvasc, 5 mg= 1 Tab, Oral, BID oxyCODONE, 10 mg= 2 Tab, Oral, Q6H, PRN Rocephin SEROquel, 12.5 mg= 0.5 Tab, Oral, BID Tylenol, 650 mg= 2 Tab, Oral, Q4H, PRN Valium, 5 mg= 1 Tab, Oral, Q6H, PRN vancomycin + Sodium Chloride 0.9% intravenous solution 250 mL Zofran, 4 mg= 2 mL, IV Push, Q4H, PRN Lab Results Test Name Test Result Date/Time Device Comment 1 Notified Nurse RBV 07/15/2019 05:07 EDT Device Comment 1 Notified Nurse RBV 07/14/2019 20:31 EDT Device Comment 1 Notified Nurse RBV 07/14/2019 17:05 EDT Device Comment 1 Notified Nurse RBV 07/14/2019 10:41 EDT Glucose POC2 220 mg/dL (High) 07/15/2019 05:07 EDT Glucose POC2 241 mg/dL (High) 07/14/2019 20:31 EDT Glucose POC2 270 mg/dL (High) 07/14/2019 17:05 EDT Glucose POC2 305 mg/dL (High) 07/14/2019 10:41 EDT Vancomycin Trough 8.3 mcg/mL 07/14/2019 14:44 EDT Electronically signed by Julian Wheeler Conversion Manager Emergency Department Cerner at 01/23/2023 1:26 PM CDT documented in this encounter Plan of Treatment Not on file documented as of this encounter Visit Diagnoses Not on filedocumented in this encounter
--- OUTSIDE RECORDS SUMMARY | 2025-07-29 11:52 | XMS_ITS | Encounter Summary ---
Author Organization [employer] ([place], [place], [place], [place]) Address [address] [place] [address] Care Team Providers Care Equine Vet Name Role Phone Unavailable Primary Care Provider Unavailabl e Encounter Details Date Type Department Care Team (Late st Contact Info) Description 07/19/2019 Transcribed Document [facility] [place] [address] [place] [address] ProviderChano MD [address], [place] [phone] Social History Tobacco Use Types Packs/Day Years Used Date Smoking Tobacco: Never Assessed Comments Unknown Sex and Gender Information Value Date Recorded Sex Assigned at Not on file Legal Sex Female 2:07 PM CDT Gender Identity Not on file Sexual Orientation Not on file documented as of this encounter Miscellaneous Notes * Cerner Conversion Note - Chano ProviderMD - 07/19/2019 3:07 PM CDT On Going Discharge Planning Entered On: 07/19/2019 15:10 EDT Performed On: 07/19/2019 15:07 EDT by HORACIO ACHARYA RN-Blocker And SewerMathematics Academic Chair Progress Note Discharge Arrangements : Patient Post-Acute Information Patient Name: LUDY ANTONIO Gender: Female : [birth year] Age: 68 Years No Post-Acute Placement(s) Listed No Post-Acute Service(s) Listed No Cur[place] Referral(s) Listed Barriers to Discharge Identified : Clinical Condition of Patient Barriers to Discharge Unresolved : Clinical Condition of Patient HORACIO ACHARYA RN-Blocker And Sewer - 07/19/2019 15:07 EDT Narrative Progress Note Narrative Progress Note : [facility] consulted. They received [...] and family. CM will continue to follow. Historical Progress Note : [facility] eval for inpatient psych on Thursday 07/19. CM will continue to follow. HORACIO ACHARYA RN-Blocker And Sewer - 07/16/19 12:46:58 [place] declined admission to their psych unit. No word from [facility]. Met with pt's daughter and had lengthy discussion regarding disposition. CM will consult [facility] at time of dc for help with admission to debbie-psych unit somewhere. D/W Dr. Horner and Dr. Jama. CM will continue to follow. HORACIO ACHARYA RN-Blocker And Sewer - 07/15/19 14:03:13 Spoke to pt's spouse Kian on the phone today. 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 He states he does not want her going to those places as she kows people there. He agrees to referrals to [facility] and [facility] inpatient psych units. Referral sent and spoke to JUSTA Perez at [facility] and Royce RN at [facility]. CM will continue to follow. HORACIO ACHARYA RN-Blocker And Sewer - 07/14/19 13:36:43 Dr. Valdez consult this [...] CM will continue to follow. HORACIO ACHARYA RN-Blocker And Sewer - 07/13/19 17:41:20 psych consult referral faxed to Dr. Valdez's office to assess for psychosis. SANJIV VOGT RN-Blocker And Sewer - 07/11/19 16:14:26 HORACIO ACHARYA RN-Blocker And Sewer - 07/19/2019 15:07 EDT Electronically signed by Summer [facility] Conversion Manager Construction Cerner at 01/23/2023 1:20 PM CDT documented in this encounter Plan of Treatment Not on file documented as of this encounter Visit Diagnoses Not on filedocumented in this encounter
--- OUTSIDE RECORDS SUMMARY | 2025-07-29 11:52 | XMS_ITS | Encounter Summary ---
Author Organization [employer] ([place], [place], [place], [place]) Address [address] [place] [address] Care Team Providers Care Riveting Machine Operator Automatic Name Role Phone Unavailable Primary Care Provider Unavailabl e Encounter Details Date Type Department Care Team (Late st Contact Info) Description 07/15/2019 Transcribed Document [facility] [place] [address] [place] [address] ProviderChano MD [address], [place] [id number] Social History Tobacco Use Types Packs/Day Years Used Date Smoking Tobacco: Never Assessed Comments Unknown Sex and Gender Information Value Date Recorded Sex Assigned at Not on file Legal Sex Female 2:07 PM CDT Gender Identity Not on file Sexual Orientation Not on file documented as of this encounter Miscellaneous Notes * Cerner Conversion Note - Chano Gatica MD - 07/15/2019 11:43 AM CDT Patient: LUDY ANTONIO Age: 68 [...] epithelial cells. Urine culture was positive for 10???[phone] CFU/mL. CT of the L-spine was negative. [...] or confusion. ROS and hx discussed with [id number], has had ceofusion and fever last 2 [...] discussed with family no fever or rash Allergies:Allergies (1) Active Reaction Avandia CHF Medications:Medications by Classification Anticoagulant enoxaparin (Lovenox) - 40 mg, SubCutaneous, Inj, Daily, Routine Cardiovascular metoprolol (metoprolol tartrate) - 12.5 mg, Oral, Tab, BID, Routine amLODIPine (Norvasc) - 5 mg, Oral, Tab, BID, Routine lisinopril - 40 mg, Oral, Tab, At Bedtime, Routine Respiratory albuterol-ipratropium (DuoNeb 0.5 mg-2.5 mg/3 mL inhalation - 3 mL, Nebulized Inhalation, Inh, RT_Q6H, PRN for Shortness of Breath, Routine formoterol-mometasone (formoterol-mometasone 5 mcg-200 mcg/i - 2 Puff, Inhalation, Inh, BID, Routine loratadine - 10 mg, Oral, Tab, At Bedtime, Routine GI ondansetron (Zofran) - 4 mg, IV Push, Inj, Q4H, PRN for Nausea, Routine famotidine - 20 mg, Oral, Tab, BID, Routine polyethylene glycol 3350 (MiraLax) - 17 Gram, Oral, Powder, Daily, PRN for Constipation, Routine Endocrine insulin glargine (Lantus) - 20 Units, SubCutaneous, Inj, Daily, Routine insulin lispro (insulin lispro sliding scale) - Scale D, SubCutaneous, Inj, AC and at Bedtime, Routine Neuro divalproex sodium (Depakote) - 250 mg, Oral, EC Tab, BID, Routine Psych DULoxetine (Cymbalta) - 60 mg, Oral, Cap, At Bedtime, Routine QUEtiapine (SEROquel) - 12.5 mg, Oral, Tab, BID, Routine haloperidol (Haldol) - 2 mg, IV Push, Inj, Q8H, PRN for Agitation, Routine HEENT fluticasone nasal (Flonase) - 1 Puff, Nasal, [place], Daily, Routine Pain Meds morphine - 2 mg, IV Push, Inj, Q2H, PRN for Pain (Severe 7-10), Routine oxyCODONE - 10 mg, Oral, Tab, Q6H, PRN for Pain (Moderate 4-6), Routine acetaminophen (Tylenol) - 650 mg, Oral, Tab, Q4H, PRN for Pain (Mild 1-3), Routine Sedatives diazePAM (Valium) - 5 mg, Oral, Tab, Q6H, PRN for Spasms, Routine Past Medical History: Active Problems (24) [...] Last Charted Minimum Maximum Temp 97.7 (JUL 15 06:00) 97.7 (JUL 15 06:00) 98 (JUL 14:) Apical HR 82 (JUL 15:03) 62 (JUL 14 20:41) 82 (JUL 15:03) Mon HR 74 (JUL 15 06:00) 62 (JUL 14:) 74 (JUL 15 06:00) Resp Rate 18 (JUL 15 06:00) 18 (JUL 14:) 18 (JUL 14:) SBP H 159 (JUL 15 06:00) H 150 (JUL 14:) H 159 (JUL 15 06:00) DBP 74 (JUL 15 06:00) 60 (JUL 14:) 74 (JUL 15 06:00) MAP 89 (JUL 15 06:00) 77 (JUL 14 21:32) 89 (JUL 15 06:00) SpO2 96 (JUL 15 06:00) 96 (JUL 15 06:00) 100 (JUL 14 21:32) Exam: Gen: Alert, not cooperative, confused HEENT: sclera [place] NECK: Supple, no masses LYMPH: No lymphadenopathy in cervical, supraclavicular, axillary, or inguinal lymph nodes RESP: CTA bilaterally without rhonchi, rales, or wheezes. Nonlabored breathing CV: RRR, no murmurs, gallops, or rubs. No edema GI: soft, nontender, nondistended, : No garcia in place MS: no rash SKIN: No lesions NEURO: less interactive PSYCH: anxious Labs:Labs (Last four charted values) WBC 8.4 (JUL 12) 8.2 (JUL 11) 7.9 (JUL 09) 9.1 (JUL 08) HB 11.5 (JUL 12) 11.5 (JUL 06) 12.6 (JUL 04) 12.0 (JUL 03) HCT 35.7 (JUL 07) 35.6 (JUL 06) 39.8 (JUL 09) 37.3 (JUL 03) Plt 263 (JUL 07) 230 (JUL 06) 267 (JUL 04) 268 (JUL 03) Na 142 (OCT 07) 140 (JUL 06) 142 (JUL 09) 141 (JUL 03) K 3.8 (JUL 12) 4.2 (JUL 11) 4.4 (JUL 09) 3.9 (JUL 08) Cl 104 (JUL 12) 104 (JUL 06) 106 (JUL 09) 105 (JUL 08) CO2 31 (JUL 12) 31 (JUL 11) 27 (JUL 09) 30 (JUL 08) BUN 14 (JUL 12) 14 (JUL 11) 19 (JUL 09) 20 (JUL 08) Cr 0.90 (JUL 12) 0.90 (JUL 11) H 1.10 (JUL 09) 1.00 (JUL 08) Glu R H 202 (JUL 12) H 248 (JUL 11) H 207 (JUL 09) H 153 (JUL 08) Ca 9.0 (JUL 12) 9.0 (JUL 06) 9.4 (JUL 09) 9.7 [...] Positive Chromium level - low (negative cobalt) Will stop antibiotics - Vancomycin and Rocephin Follow cultures Follow labs check some esoteric labs - sprue screen negative. cobalt negative, low positive chromium Doubt her mental status issues from infection -stop antibiotics and watch Looks about the same At some point would get Ortho opinion about the + level but doubt that's the culprit Out 5 days, call any issues UM discussed with KHARI Particle Board Supervisor documented in this encounter Plan of Treatment Not on file documented as of this encounter Visit Diagnoses Not on filedocumented in this encounter
--- OUTSIDE RECORDS SUMMARY | 2025-07-29 11:52 | XMS_ITS | Clinical Summary ---
Author Organization [facility] ([place], [place], [place], [place]) Address [address] [place] [address] Care Team Providers Care Grader Operator Name Role Phone Unavailable Primary Care Provider Unavailabl e Social History Tobacco Use Types Packs/Day Years Used Date Smoking Tobacco: Never Assessed Comments Unknown Sex and Gender Information Value Date Recorded Sex Assigned at Not on file Legal Sex Female 2:07 PM CDT Gender Identity Not on file Sexual Orientation Not on file Plan of Treatment Not on file
--- OUTSIDE RECORDS SUMMARY | 2025-07-29 11:52 | XMS_ITS | Encounter Summary ---
Author Organization [employer] ([place], [place], [place], [place]) Address [address] [place] [address] Care Team Providers Care Peoplesoft Taleo Manager Name Role Phone Unavailable Primary Care Provider Unavailabl e Encounter Details Date Type Department Care Team (Late st Contact Info) Description 07/16/2019 Transcribed Document [facility] [place] [facility] [place] [address] ProviderChano MD [address], [place] [id number] Social History Tobacco Use Types Packs/Day Years Used Date Smoking Tobacco: Never Assessed Comments Unknown Sex and Gender Information Value Date Recorded Sex Assigned at Not on file Legal Sex Female 2:07 PM CDT Gender Identity Not on file Sexual Orientation Not on file documented as of this encounter Miscellaneous Notes * Cerner Conversion Note - Historical ProviderMD - 07/16/2019 8:16 AM CDT Patient: LUDY ANTONIO Age: 68 Years Sex: Female : 1950 Subjective Naeo. Right leg pain similar to preop. Walked 130 feet with PT yesterday. Vital Signs T: 37.3 ??C TMIN: 36.3 ??C TMAX: 37.3 ??C HR: 81(Monitored) RR: 16 BP: 153/63 SpO2: 94% Oxygen Settings (Last) Oxygen Therapy Mode: Room air (07/16/19 06:45:00) Oxygen Flow Rate: 1 Liter/Min (07/10/19 10:43:00) Physical Exam laying in bed a/a/o, nad maew dressing dry Assessment/Plan POD#7 redo right L3-4 minimally invasive microdiscectomy with Dr. 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 and acute encephalopathy improving she is unsure if back and leg pain have improved- will add gabapentin 300 QHS Medications Cymbalta, 60 mg= 2 Cap, Oral, [...] Bedtime Lantus, 20 Units= 0.2 mL, SubCutaneous, BID lisinopril, 40 mg= 2 Tab, Oral, At [...] mg= 2 Tab, Oral, Q6H, PRN SEROquel, 12.5 mg= 0.5 Tab, Oral, BID Tylenol, 650 mg= 2 Tab, Oral, Q4H, PRN Valium, 5 mg= 1 Tab, Oral, Q6H, PRN Zofran, 4 mg= 2 mL, IV Push, Q4H, PRN Lab Results Test Name Test Result Date/Time Device Comment 1 Notified Nurse RBV 07/16/2019 05:10 EDT Device Comment 1 Notified Nurse RBV 07/15/2019 20:16 EDT Device Comment 1 Protocols Followed 07/15/2019 15:12 EDT Device Comment 1 Protocols Followed 07/15/2019 10:45 EDT Glucose POC2 216 mg/dL (High) 07/16/2019 05:10 EDT Glucose POC2 220 mg/dL (High) 07/15/2019 20:16 EDT Glucose POC2 242 mg/dL (High) 07/15/2019 15:12 EDT Glucose POC2 332 mg/dL (High) 07/15/2019 10:45 EDT Electronically signed by Julian Wheeler Conversion Nuclear Cardiology Technologist Cerner at 01/23/2023 1:08 PM CDT documented in this encounter Plan of Treatment Not on file documented as of this encounter Visit Diagnoses Not on filedocumented in this encounter
--- OUTSIDE RECORDS SUMMARY | 2025-07-29 11:52 | XMS_ITS | Referral Summary ---
Author Organization [facility] ([place], [place], [place], [place]) Address [address] [place] [address] Care Team Providers Care Microbiology Supervisor Name Role Phone Unavailable Primary Care [...]
--- OUTSIDE RECORDS SUMMARY | 2025-07-29 11:52 | XMS_ITS | Encounter Summary ---
Author Organization [employer] ([place], [place], [place], [place]) Address [address] [place] [address] Care Team Providers Care Geek Squad Manager Name Role Phone Unavailable Primary Care Provider Unavailabl e Encounter Details Date Type Department Care Team (Late st Contact Info) Description 07/20/[address] [facility] [place] Family Medicine [address] [place] [address] ProviderChano MD [address], [place] [id number] Social History Tobacco Use Types Packs/Day Years Used Date Smoking Tobacco: Never Assessed Comments Unknown Sex and Gender Information Value Date Recorded Sex Assigned at Not on file Legal Sex Female 2:07 PM CDT Gender Identity Not on file Sexual Orientation Not on file documented as of this encounter Miscellaneous Notes * Cerner Conversion Note - Chano Gatica MD - 07/20/2019 8:52 PM CDT Patient: LUDY ANTONIO Age: 68 [...] epithelial cells. Urine culture was positive for 10???[id number] CFU/mL. CT of the L-spine was negative. [...] or confusion. ROS and hx discussed with bety, has had ceofusion and fever last 2 [...] home no fever or rash Hx suspect Allergies:Allergies (1) Active Reaction Avandia CHF Medications:Medications by Classification Antimicrobials fluconazole (Diflucan) - 100 mg, Oral, Tab, Daily, Routine Anticoagulant enoxaparin (Lovenox) - 40 mg, SubCutaneous, [...] Units, SubCutaneous, Inj, BID, Routine insulin lispro (insulin lispro sliding scale) [...] fluticasone nasal (Flonase) - 1 Puff, Nasal, [place], Daily, Routine miconazole topical (Desenex AF 2% [...] Last Charted Minimum Maximum Temp 98.1 (JUL 20 18:34) 97.9 (JUL 20 10:38) 98.1 (JUL 19 21:20) Apical HR 67 (JUL 20 09:37) 67 (JUL 20 09:37) 67 (JUL 20 09:37) Mon HR 81 (JUL 20 18:34) 61 (JUL 20 06:00) 81 (JUL 20 18:34) Resp Rate 17 (JUL 20 18:34) 14 (JUL 20 06:00) 18 (JUL 19 21:20) SBP 120 (JUL 20 18:34) 109 (JUL 20 16:19) H 142 (JUL 20 09:39) DBP 60 (JUL 20 18:34) L 44 (JUL 20 16:19) 60 (JUL 20 10:38) MAP 74 (JUL 20 18:34) 57 (JUL 20 16:19) 84 (JUL 20 02:21) SpO2 100 (JUL 20 18:34) L 92 (JUL 20 10:38) 100 (JUL 20 18:34) Exam: Gen: Alert, cooperative, less confused HEENT: sclera [place] NECK: Supple, no masses LYMPH: No lymphadenopathy in cervical lymph nodes RESP: CTA bilaterally without rhonchi, rales, or wheezes. Nonlabored breathing CV: RRR, no murmurs, gallops, or rubs. No edema GI: soft, nontender, nondistended, : No garcia in place MS: no rash SKIN: No lesions NEURO: less interactive PSYCH: anxious Labs:Labs (Last four charted values) WBC 7.2 (OCT 13) 8.4 (OCT 07) 8.2 (OCT 06) 7.9 (OCT 04) HB 11.3 (OCT 13) 11.5 (OCT 07) 11.5 (OCT 06) 12.6 (OCT 04) HCT 35.4 (OCT 13) 35.7 (OCT 07) 35.6 (OCT 06) 39.8 (OCT 04) Plt 277 (OCT 13) 263 (OCT 07) 230 (OCT 06) 267 (OCT 04) Na 143 (OCT 13) 142 (OCT 07) 140 (OCT 06) 142 (OCT 04) K 4.1 (OCT 13) 3.8 (OCT 07) 4.2 (OCT 06) 4.4 (OCT 04) Cl 106 (JUL 13) 104 (OCT 07) 104 (OCT 06) 106 (OCT 04) CO2 30 (OCT 13) 31 (OCT 07) 31 (OCT 06) 27 (OCT 04) BUN H 23 (JUL 13) 14 (JUL 07) 14 (JUL 06) 19 (JUL 04) Cr 1.00 (OCT 13) 0.90 (OCT 07) 0.90 (OCT 06) H 1.10 (OCT 04) Glu R H 213 (JUL 13) H 202 (JUL 07) H 248 (JUL 06) H 207 (JUL 04) Ca 9.4 (JUL 13) 9.0 (OCT 07) 9.0 (OCT 06) 9.4 (OCT 04) PT 9.9 (JUL 04) 10.1 (OCT 03) INR 0.9 (JUL 09) 0.9 (JUL 03) PTT 28.0 (JUL 03) AST 18 (JUL 07) 16 (OCT 04) 17 (OCT 03) ALT 25 (JUL 07) 23 (OCT 04) 21 (OCT 03) ALK P 56 (JUL 07) 69 (OCT 04) 63 (OCT 03) T Bili 0.3 (OCT 07) 0.3 (OCT 04) 0.4 (OCT 03) PTN 6.7 (OCT 07) 7.1 (OCT 04) 7.0 (OCT 03) ALB L 2.8 (OCT 07) L 3.1 (OCT 04) L 3.2 (OCT 03) Micro: Rad:No Radiology Results Found IMPRESSION: - [...] + level but doubt that's the culprit UM discussed with DC Bushel Worker Stop the diflucan check labs in am Seems a bit better documented in this encounter Plan of Treatment Not on file documented as of this encounter Visit Diagnoses Not on filedocumented in this encounter
--- OUTSIDE RECORDS SUMMARY | 2025-07-29 11:52 | XMS_ITS | Encounter Summary ---
Author Organization [employer] ([place], [place], [place], [place]) Address [address] [place] [address] Care Team Providers Care Skip Tender Name Role Phone Unavailable Primary Care Provider Unavailabl e Encounter Details Date Type Department Care Team (Late st Contact Info) Description 04/06/2019 Transcribed Document [facility] [place] Family Medicine [address] [place] [address] ProviderChano MD [address] [place] [address] Social History Tobacco Use Types Packs/Day Years Used Date Smoking Tobacco: Never Assessed Comments Unknown Sex and Gender Information Value Date Recorded Sex Assigned at Not on file Legal Sex Female 2:07 PM CDT Gender Identity Not on file Sexual Orientation Not on file documented as of this encounter Miscellaneous Notes * Cerner Conversion Note - Chano Gatica MD - 04/06/2019 8:57 AM CDT [place] [address] LUDY ANTONIO Ileana :1950 Visit Time:04/05/2019 Your Visit Summary Your Care Team Admitting Physician - CATRACHITO THOMPSON, MD ONUR Attending Physician - CATRACHITO THOMPSON, MD ONUR Primary Care Physician - QUIRINO SENIOR (REF), -[facility] Referring Physician - CATRACHITO THOMPSON, MD ONUR Your Diagnosis Lumbar disc herniation with radiculopathy Discharge Vitals Temperature 37.6 ??C Heart Rate (Monitored) 93 Respiratory Rate 18 Blood Pressure 140/48 What to do next Instructions From Your Care Team Diet after Discharge: Resume usual diet as tolerated, Activity after Discharge: As tolerated, _, _ Lifting Restrictions: No heavy lifting over 10 pounds Weight Bearing: Full weight bearing Driving after Discharge: Do not drive Showering/Bathing: May shower in 3 days, _ Notify Provider of: Notify MD of any redness, swelling, excessive drainage or foul smelling drainage Wound/Incision Care after Discharge: Keep operative site/wound site clean and dry, can remove dressing in 2 days, leave steri-strips in place for 2 weeks Medical Equipment for Home Use: Home Health Services: Community Services: NO BENDING, TWISTING, OR LIFTING GREATER THAN 10LBS Discharge Activity: Discharge Activity: No heavy lifting over 10 lbs Diet: Discharge Diet: Resume usual diet as tolerated Follow-Up Appointments Follow Up with ONUR WINSTON When 05/12/2019 09:00 AM EDT Comments see appt cardAppointment has been made Where: [address] [place] [address] [place] [address]- Business (1) Medications What How Much When Instructions Next Dose cholecalciferol (Vitamin D3) 50,000 International Units Oral See Comment friday and friday clopidogrel (Plavix 75 mg oral tablet) 1 Tablet(s) Oral Every Day can restart on POD 5 which is DULoxetine (Cymbalta 60 mg oral delayed release capsule) 1 Capsule(s) Oral At Bedtime (do not crush or chew) 7-2 PM fluticasone nasal (Flonase 0.05 mg/ inh nasal spray) 2 [place](s) Nasal Every Day fluticasone-salmeterol (Advair Diskus 250 mcg-50 mcg inhalation powder) 1 Puff(s) Inhalation Every Day as needed for as needed furosemide (Lasix 20 mg oral tablet) 1 Tablet(s) Oral Every Day as needed for Other (See Comment) weight gain/ fluid retention 7-3 insulin aspart (NovoLog) SubCutaneous Before Meals 3 times a day- sliding scale. insulin glargine (Lantus) 60 Unit(s) SubCutaneous At Bedtime 7-2 PM lisinopril (lisinopril 40 mg oral tablet) 1 Tablet(s) Oral At Bedtime 7-2 PM loratadine (loratadine 10 mg oral tablet) 1 Tablet(s) Oral At Bedtime 7-2 PM metoprolol (metoprolol tartrate) 6.25 Milligram(s) Oral At Bedtime 7-2 PM multivitamin with minerals (Centrum) 1 Tablet(s) Oral Every Day 7-3 oxyCODONE (oxyCODONE 10 mg oral tablet) 1 Tablet(s) Oral Every 6 Hours as needed for as needed for pain 7-2 10am potassium chloride-sodium chloride 20 Milliequivalent(s) Oral Every Day as needed for Other (See Comment) taken as needed with lasix 7-3 rabeprazole (Aciphex) 20 Milligram(s) Oral Two Times A Day anytime tramadol (Ultram 50 mg oral tablet) 2 Tablet(s) Oral Every 6 Hours as needed for for pain anytime Take your medications faithfully. Do NOT skip [...] Please dispose of unused and medications per your retail pharmacy guidance. Allergies Avandia (CHF) NSAIDs fenofibrate metFORMIN statins (Fenofibrate, Fenofibrate) Immunizations This Visit No Immunizations Found Education Materials Wound Infection A wound infection happens when [...] at home: Medicines ??? Take or apply nwlz-siu-yrbejpd and prescription medicines only as told by [...] cannot use soap and water, use hand housekeeping supervisor. ? Change your bandage as told by [...] 07/01/2009 Document Revised: 02/27/2017 Document Reviewed: 03/11/2016 [employer] Patient Education ?? 2019 [employer] Fall Prevention in the Home Introduction [...] items that you use a lot in wymi-if-pqphr places. ??? If you need to reach something above you, use a strong step stool that has a grab bar. ??? Keep electrical cords out of the way. ??? Do notuse floor bahraini or wax that makes floors slippery. If [...] do to help prevent falls? Wear shoes that: ? Do nothave high heels. ? Have rubber bottoms. ? Are comfortable and fit you well. ? Are closed at the toe. Do not wear sandals. ??? If you use a stepladder: ? Make sure that it is fully opened. Do not climb a closed stepladder. ? Make sure that both sides of the stepladder are locked into place. ? Ask someone to hold it for you, if possible. ??? Clearly reinaldo and make sure that you can see: ? Any grab bars or handrails. ? First [...] 07/19/2010 Document Revised: 02/27/2017 Document Reviewed: 10/27/2015 ?? 2017 Elsevier Emergency Awareness and Preventative Care [place] is [...] Assistance with quitting is available by contacting 2-702-LSTQNOW. This is a free resource providing counseling, [...] CPR? There are two easy steps: Call 9-1-1 if you see a teen or adult [...] and how to prevent infections, visit www.cdc.gov/sepsis. Test Results Laboratory or Other Results This Visit (last charted value for your 04/05/2019 visit) Hematology 04/01/19 10:53:00 WBC: 8.9 K/uL -- Normal range between ( 4.5 and 10.5 ) RBC: 4.43 Million/uL -- Normal range between ( 3.93 and 5.22 ) Hct: 40.1 % -- Normal range between ( 34.1 and 44.9 ) Hgb: 13.0 g/dL -- Normal range between ( 11.2 and 15.7 ) Platelet Count: 262 K/uL -- Normal range between ( 163 and 369 ) MCH: 29.3 pg -- Normal range between ( 25.6 and 32.2 ) MCHC: 32.4 Gram/dL -- Normal range between ( 32.2 and 36.5 ) MCV: 90.5 fL -- Normal range between ( 79.0 and 94.8 ) Slide Review: No RDW: 13.2 % -- Normal range between ( 11.7 and 14.9 ) MPV: 9.5 fL -- Normal range between ( 9.4 and 12.4 ) Urinalysis 04/05/19 11:52:00 Urine Nitrite: Negative Urine Leukocyte Esterase: Small Urine Appearance: Clear Urine Glucose Dipstick: Negative Urine Blood Dipstick: Negative Urine Type: U CleanCatch Urine Urobilinogen Dipstick: 0.2 EU/dL Urine Protein Dipstick: Negative Ur Bacteria: 1+ Ur Squamous Epithelial Cells: 2-5 /HPF Urine Color: Yellow Ur WBC: 2-5 /HPF Urine Ketones Dipstick: Negative Ur Mucous: 1+ Urine pH Dipstick: 5.5 -- Normal range between ( 6.0 and 8.0 ) Urine Bilirubin Dipstick: Negative Urine Specific [place]: 1.021 -- Normal range between ( 1.005 and 1.030 ) General Chemistry 04/06/19 06:01:00 Glucose POC2: 279 mg/dL -- Normal range between ( 70 and 110 ) Device Comment 1: Device Comment 1 04/05/19 17:24:00 Device Comment 2: Device Comment 2 04/01/19 10:53:00 Creatinine Level: 1.10 mg/dL -- Normal range between ( 0.55 and 1.02 ) Sodium Level: 140 mmol/L -- Normal range between ( 136 and 146 ) Potassium Level: 4.3 mmol/L -- Normal range between ( 3.5 and 5.1 ) Chloride Level: 103 mmol/L -- Normal range between ( 102 and 112 ) Carbon Dioxide Level: 32 mmol/L -- Normal range between ( 21 and 32 ) Anion Gap: 9 -- Normal range between ( 9 and 20 ) Bun/Creatinine: 21.8 -- Normal range between ( 8.0 and 20.0 ) Calcium Level: 9.4 mg/dL -- Normal range between ( 8.4 and 10.1 ) eGFR : 60 mL/min/1.73m2 eGFR NonAfrican: 49 mL/min/1.73m2 Glucose Level: 140 mg/dL -- Normal range between ( 74 and 106 ) Blood Urea Nitrogen: 24 mg/dL -- Normal range between ( 7 and 22 ) Diagnostic Radiology 04/05/19 17:18:36 CR Fluoro in OR: CR Fluoro in OR Patient Name:LUDY ANTONIO I have received and understand this information and was given the opportunity to ask questions. Patient/Classified Advertising Manager Name: Patient/Classified Advertising Manager Signature: Relationship to Patient: Clinician/Hospital Classified Advertising Manager Signature: Date: documented in this encounter Plan of Treatment Not on file documented as of this encounter Visit Diagnoses Not on filedocumented in this encounter
--- OUTSIDE RECORDS SUMMARY | 2025-07-29 11:52 | XMS_ITS | Encounter Summary ---
Author Organization [employer] ([place], [place], [place], [place]) Address [address] [place] [address] Care Team Providers Care Sql Etl Developer Name Role Phone Unavailable Primary Care Provider Unavailabl e Encounter Details Date Type Department Care Team (Late st Contact Info) Description 07/16/2019 Transcribed Document [facility] [place] Family Medicine [facility] [place] [address] ProviderChano MD [address] [place], [place] [id number] Social History Tobacco Use Types Packs/Day Years Used Date Smoking Tobacco: Never Assessed Comments Unknown Sex and Gender Information Value Date Recorded Sex Assigned at Not on file Legal Sex Female 2:07 PM CDT Gender Identity Not on file Sexual Orientation Not on file documented as of this encounter Miscellaneous Notes * Cerner Conversion Note - Historical ProviderMD - 07/16/2019 4:08 PM CDT Patient: LUDY ANTONIO Age: 68 years Sex: Female : 1950 Associated Diagnoses: None Author: Lia Huddleston, Pharmacist-Resident HPI: LP is a 68 yo F who presents with back pain and mild confusion. Pharmacy consulted to dose Vanc for possible meningitis infection. ABW= 114kg Indication: Meningitis Consulting MD: Wiley ID: Wiley Goal Trough: 5-6.5 Current Abx: Ceftriaxone (start 07/10) Vancomycin, PTD (start 07/12) Labs (Last four charted values) WBC 8.4 (JUL 12) 8.2 (JUL 11) 7.9 (JUL 09) 9.1 (JUL 08) HB 11.5 (JUL 12) 11.5 (JUL 11) 12.6 (OCT 04) 12.0 (OCT 03) HCT 35.7 (OCT 07) 35.6 (OCT 06) 39.8 (OCT 04) 37.3 (OCT 03) Plt 263 (OCT 07) 230 (OCT 06) 267 (OCT 04) 268 (JUL 03) Na 142 (OCT 07) 140 (OCT 06) 142 (OCT 04) 141 (OCT 03) K 3.8 (OCT 07) 4.2 (OCT 06) 4.4 (OCT 04) 3.9 (OCT 03) Cl 104 (OCT 07) 104 (OCT 06) 106 (OCT 04) 105 (OCT 03) CO2 31 (OCT 07) 31 (OCT 06) 27 (OCT 04) 30 (JUL 03) BUN 14 (JUL 07) 14 (JUL 06) 19 (JUL 04) 20 (JUL 03) Cr 0.90 (JUL 07) 0.90 (JUL 06) H 1.10 (JUL 09) 1.00 (JUL 03) Glu R H 202 (JUL 07) H 248 (JUL 06) H 207 (JUL 09) H 153 (JUL 03) Ca 9.0 (JUL 07) 9.0 (JUL 06) 9.4 (JUL 04) 9.7 (JUL 03) PT 9.9 (JUL 09) 10.1 (JUL 03) INR 0.9 (JUL 09) 0.9 (JUL 03) PTT 28.0 (JUL 08) AST 18 (JUL 12) 16 (JUL 04) 17 (JUL 03) ALT 25 (JUL 07) 23 (JUL 04) 21 (OCT 03) ALK P 56 (JUL 07) 69 (JUL 04) 63 (JUL 03) T Bili 0.3 (JUL 07) 0.3 (JUL 09) 0.4 (JUL 03) PTN 6.7 (JUL 07) 7.1 (JUL 09) 7.0 (OCT 03) ALB L 2.8 (JUL 12) L 3.1 (JUL 04) L 3.2 (JUL 03) Vitals Signs (last 24 hrs) Last Charted Minimum Maximum Temp 98 (JUL 16 14:47) 97.9 (JUL 16 02:00) 99.2 (JUL 16 06:28) Apical HR 76 (JUL 16 09:16) 76 (OCT 11 09:16) 85 (JUL 15 20:09) Mon HR 65 (JUL 16 14:47) 65 (JUL 16 14:47) 81 (JUL 16 06:28) Resp Rate 18 (JUL 16 14:47) 16 (JUL 16 06:28) 18 (JUL 15 18:58) SBP 131 (JUL 16 14:47) 131 (JUL 16 14:47) H 160 (JUL 16 02:00) DBP L 54 (JUL 16 14:47) L 50 (JUL 16 09:41) 65 (JUL 15 18:58) MAP 73 (JUL 16 14:47) 70 (JUL 16 09:41) 92 (JUL 15 18:58) SpO2 94 (JUL 16 06:45) 94 (JUL 16 06:45) 95 (JUL 15 18:58) I/O: 119/0 Micro: 10/4 Wound Cx: No growth 10/4 Fungal Cx: No growth 10/4 AFB: No growth 10/4 Anaerobic Cx: No growth 10/3 Urine Cx: Suggested contamination Vanc levels: 10/9 @1444 Vancomycin trough: 8.3 on Vancomycin 1500mg IV Q24H A/P: 1) Vancomycin d/c'd per ID. Pharmacy will sign off. Thank you for this consult. Lia Huddleston PharmD PGY-1 [employer] Pager: [phone] documented in this encounter Plan of Treatment Not on file documented as of this encounter Visit Diagnoses Not on filedocumented in this encounter
--- OUTSIDE RECORDS SUMMARY | 2025-07-29 11:53 | XMS_ITS | Encounter Summary ---
Author Organization [employer] ([place], [place], [place], [place]) Address [address] [place] [address] Care Team Providers Care Adding Machine Operator Name Role Phone Unavailable Primary Care Provider Unavailabl e Encounter Details Date Type Department Care Team (Late st Contact Info) Description 03/26/2021 Transcribed Document [facility] [place] Family Medicine [facility] [place] [address] ProviderChano MD [facility] [place], [place] [id number] Social History Tobacco Use Types Packs/Day Years Used Date Smoking Tobacco: Never Assessed Comments Unknown Sex and Gender Information Value Date Recorded Sex Assigned at Not on file Legal Sex Female 2:07 PM CDT Gender Identity Not on file Sexual Orientation Not on file documented as of this encounter Miscellaneous Notes * Cerner Conversion Note - Historical ProviderMD - 03/26/2021 2:06 AM CDT ED Discharge Entered On: 03/26/2021 2:07 EDT Performed On: 03/26/2021 2:06 EDT by MIGEL ANDREW Rn Discharge Process Patient Disposition : Discharge Personal Belongings With Patient : Yes Patient Education Completed : Yes Teaching Evaluation : Verbalizes understanding Link to Valuables and Belongings form : No IV Discontinued : Yes Nursing Documentation Completed : Yes MIGEL ANDREW Rn - 03/26/2021 2:06 EDT ED Discharge Discharge To : Home with ambulatory/outpatient follow-up Name of Receiving Facility/Provider : PCP Mode Of Departure : Ambulatory Accompanied By : Spouse Discharge Instructions Reviewed With, Opportunity For Questions Given : Patient, Spouse Prescriptions Given to Patient : Electronically sent Number of Prescriptions Given : 2 Medications Given to Patient : No MIGEL ANDREW Rn - 03/26/2021 2:06 EDT documented in this encounter Plan of Treatment Not on file documented as of this encounter Visit Diagnoses Not on filedocumented in this encounter
--- OUTSIDE RECORDS SUMMARY | 2025-07-29 11:53 | XMS_ITS | Encounter Summary ---
Author Organization [employer] ([place], [place], [place], [place]) Address [address] [place] [address] Care Team Providers Care Account Development Specialist Name Role Phone Unavailable Primary Care Provider Unavailabl e Encounter Details Date Type Department Care Team (Late st Contact Info) Description 07/13/2019 Transcribed Document [facility] [place] Family Medicine [address] [place] [address] ProviderChano MD [address], [place] [phone] Social History Tobacco Use Types Packs/Day Years Used Date Smoking Tobacco: Never Assessed Comments Unknown Sex and Gender Information Value Date Recorded Sex Assigned at Not on file Legal Sex Female 2:07 PM CDT Gender Identity Not on file Sexual Orientation Not on file documented as of this encounter Miscellaneous Notes * Cerner Conversion Note - Chano Gatica MD - 07/13/2019 5:47 PM CDT Patient: LUDY ANTONIO Age: 68 [...] epithelial cells. Urine culture was positive for 10???[id number] CFU/mL. CT of the L-spine was negative. [...] or confusion. ROS and hx discussed with [id number], has had ceofusion and fever last 2 [...] and status discussed with multiple family members Allergies:Allergies (1) Active Reaction Avandia CHF Medications:Medications by Classification Antimicrobials cefTRIAXone (Rocephin) - 2 Gram, IV Piggyback, [id number], infuse over 30 Minute(s), Routine vancomycin + Sodium Chloride 0.9% intravenous solution 250 m - 1,500 mg, IV Piggyback, [id number], infuse over 60 Minute(s) Anticoagulant enoxaparin (Lovenox) - 40 mg, SubCutaneous, Inj, Daily, Routine Cardiovascular metoprolol (metoprolol tartrate) - 6.25 mg, Oral, Tab, At Bedtime, Routine lisinopril - 40 mg, Oral, Tab, [...] lispro (insulin lispro sliding scale) - Scale A:, SubCutaneous, Inj, AC and at Bedtime, Routine Neuro divalproex sodium (Depakote) - 250 mg, Oral, EC Tab, BID, Routine Psych DULoxetine (Cymbalta) - 60 mg, Oral, Cap, At Bedtime, Routine QUEtiapine (SEROquel) - 6.25 mg, Oral, Tab, BID, Routine haloperidol (Haldol) - 2 mg, IV Push, Inj, Q8H, PRN for Agitation, Routine HEENT fluticasone nasal (Flonase) - 1 Puff, Nasal, [place], Daily, Routine Pain Meds morphine - 2 [...] Last Charted Minimum Maximum Temp 97.9 (JUL 13 11:00) 97.9 (JUL 13 11:00) 98 (JUL 12:42) Apical HR 82 (JUL 12 21:47) 82 (JUL 12 21:47) 82 (JUL 12 21:47) Mon HR 86 (JUL 13 11:00) 65 (JUL 13 02:19) 86 (JUL 13 11:00) Resp Rate 16 (JUL 13 11:00) 14 (JUL 12:42) 16 (JUL 13:19) SBP H 192 (JUL 13 11:00) H 169 (JUL 12:42) H 192 (JUL 13 11:00) DBP H 95 (JUL 13 11:00) L 57 (JUL 12:42) H 95 (JUL 13 11:00) MAP 120 (JUL 13 11:00) 82 (JUL 12 21:42) 120 (JUL 13 11:00) SpO2 95 (JUL 13:19) 95 (JUL 13:19) 98 (JUL 12:42) Exam: Gen: Alert, not cooperative, confused HEENT: sclera OK NECK: Supple, no masses LYMPH: No lymphadenopathy in cervical, supraclavicular, axillary, or inguinal lymph nodes RESP: CTA bilaterally without rhonchi, rales, or wheezes. Nonlabored breathing CV: RRR, no murmurs, gallops, or rubs. No edema GI: soft, nontender, nondistended, : No garcia in place MS: FROM in all extremities, no pain with motion, no swelling or edema noted. SKIN: No eruptions, lesions, or rashes NEURO: more interactive PSYCH: anxious Labs:Labs (Last four charted values) WBC 8.4 (JUL 07) 8.2 (OCT 06) 7.9 (OCT 04) 9.1 (OCT 03) HB 11.5 (JUL 07) 11.5 (OCT 06) 12.6 (OCT 04) 12.0 (JUL 03) HCT 35.7 (OCT 07) 35.6 (OCT 06) 39.8 (OCT 04) 37.3 (JUL 03) Plt 263 (JUL 07) 230 (JUL 06) 267 (JUL 04) 268 (JUL 03) Na 142 (OCT 07) 140 (JUL 06) 142 (OCT 04) 141 (JUL 03) K 3.8 (OCT 07) 4.2 (OCT 06) 4.4 (JUL 04) 3.9 (JUL 03) Cl 104 (JUL 07) 104 (JUL 06) 106 (JUL 04) 105 (JUL 03) CO2 31 (JUL 07) 31 (JUL 06) 27 (JUL 04) 30 (JUL 03) BUN 14 (JUL 12) [...] 25 (JUL 07) 23 (JUL 09) 21 (OCT 03) ALK P 56 (JUL 07) 69 (JUL 04) 63 (JUL 03) T Bili 0.3 (JUL 07) 0.3 (JUL 09) 0.4 (JUL 03) PTN 6.7 (JUL 07) 7.1 (JUL 04) 7.0 (JUL 03) ALB L 2.8 (JUL 07) L 3.1 (JUL 04) L 3.2 (JUL 03) Micro: Rad:No Radiology Results Found IMPRESSION: - Lumbar surgery 04/05/19 - Increasing back pain - elevated ESR - 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 documented in this encounter Plan of Treatment Not on file documented as of this encounter Visit Diagnoses Not on filedocumented in this encounter
--- OUTSIDE RECORDS SUMMARY | 2025-07-29 11:53 | XMS_ITS | Encounter Summary ---
Author Organization [employer] ([place], [place], [place], [place]) Address [address] [place] [address] Care Team Providers Care Skidder Name Role Phone Unavailable Primary Care Provider Unavailabl e Encounter Details Date Type Department Care Team (Late st Contact Info) Description 07/14/2019 Transcribed Document [facility] [place] Family Medicine [address] [place] [address] ProviderChano MD [address] [place], [place] [phone] Social History Tobacco Use Types Packs/Day Years Used Date Smoking Tobacco: Never Assessed Comments Unknown Sex and Gender Information Value Date Recorded Sex Assigned at Not on file Legal Sex Female 2:07 PM CDT Gender Identity Not on file Sexual Orientation Not on file documented as of this encounter Miscellaneous Notes * Cerner Conversion Note - Historical ProviderMD - 07/14/2019 1:50 PM CDT Attempt to Treat, PT Entered On: 07/15/2019 8:18 EDT Performed On: 07/14/2019 13:50 EDT by Delon Sams PT Attempt to Treat Unable to Treat Due To : Patient Unavailable Inability to Treat Comment : Pt up in restroom. Will follow up as time permits. Delon Sams, PT - 07/15/2019 8:18 EDT documented in this encounter Plan of Treatment Not on file documented as of this encounter Visit Diagnoses Not on filedocumented in this encounter
--- OUTSIDE RECORDS SUMMARY | 2025-07-29 11:53 | XMS_ITS | Encounter Summary ---
Author Organization [employer] ([place], [place], [place], [place]) Address [address] [place] [address] Care Team Providers Care Sergeant Of Officers Name Role Phone Unavailable Primary Care Provider Unavailabl e Encounter Details Date Type Department Care Team (Late st Contact Info) Description 03/26/2021 Transcribed Document [facility] Family Medicine [facility] [place] [address] ProviderChano MD [address] [place] [address] Social History Tobacco Use Types Packs/Day Years Used Date Smoking Tobacco: Never Assessed Comments Unknown Sex and Gender Information Value Date Recorded Sex Assigned at Not on file Legal Sex Female 2:07 PM CDT Gender Identity Not on file Sexual Orientation Not on file documented as of this encounter Miscellaneous Notes * Cerner Conversion Note - Chano Gatica MD - 03/26/2021 1:55 AM CDT [facility] [place] [address] LUDY ANTONIO MILDRDE :1950 Visit Time:03/25/2021 Your Visit Summary Your Care Team Primary Provider: GENEVA LARRY Secondary Provider: Your Diagnosis Constipation Constipation Medical Information You may obtain a copy [...] next Follow-Up Appointments Follow Up with [facility] When Within 2 to 3 days Where: [address] [address]- Business (1) Allergies Avandia (CHF) NSAIDs aspirin fenofibrate metFORMIN statins (Fenofibrate, Fenofibrate) Immunizations This Visit No Immunizations Found Medications What How Much When Instructions Next Dose bisacodyl (bisacodyl 10 mg rectal suppository) 1 Suppository(ies) Rectal Every Day Duration: 3 Day(s) Pickup at [facility]/pharmacy #[id number] acetaminophen-hydrocodone (acetaminophen-HYDROcodone 325 mg-10 mg oral tablet) 1 Tablet(s) Oral Every 4 Hours as needed for for pain cholecalciferol (Vitamin D3) 50,000 International Units Oral See Comment friday and friday clopidogrel (clopidogrel 75 mg oral tablet) DULoxetine (Cymbalta 60 mg oral delayed release capsule) 1 Capsule(s) Oral At Bedtime (do not crush or chew) fluticasone nasal (Flonase 0.05 mg/ inh nasal spray) 2 [place](s) Nasal Every Day fluticasone-salmeterol (Advair Diskus 250 mcg-50 mcg inhalation powder) 1 Puff(s) Inhalation Every Day as needed for as needed insulin aspart (insulin aspart 100 units/ mL injectable solution) 8 Unit(s) SubCutaneous Three Times a Day With Meals NEW DOSE insulin glargine (Lantus 100 units/ mL subcutaneous solution) 25 Unit(s) SubCutaneous Two Times A Day loratadine (loratadine 10 mg oral tablet) 1 Tablet(s) Oral At Bedtime multivitamin with minerals (Centrum) 1 Tablet(s) Oral Every Day rabeprazole (Aciphex) 20 Milligram(s) Oral Two Times A Day traMADol (traMADol 50 mg oral tablet) 1 Tablet(s) Oral Every 4 Hours as needed for as needed for pain Pharmacy Information [facility]/pharmacy #[id number]: [address] [place], [place] [id number] [phone] The home medications listed are only as [...] This Visit (last charted value for your 03/25/2021 visit) Hematology 03/25/2021 11:05 PM WBC: 14.2 K/uL -- Normal range between ( 4.5 and 10.5 ) RBC: 4.61 Million/uL -- Normal range between ( 3.93 and 5.22 ) Hct: 40.1 % -- Normal range between ( 34.1 and 44.9 ) Hgb: 13.3 g/dL -- Normal range between ( 11.2 and 15.7 ) Platelet Count: 370 K/uL -- Normal range between ( 163 and 369 ) MCH: 28.9 pg -- Normal range between ( 25.6 and 32.2 ) MCHC: 33.2 Gram/dL -- Normal range between ( 32.2 and 36.5 ) MCV: 87.0 fL -- Normal range between ( 79.0 and 94.8 ) Band Percent Man: 2 % -- Normal range between ( 5 and 11 ) RBC Morphology: Normal RDW: 13.5 % -- Normal range between ( 11.7 and 14.9 ) [place] Percent Man: 3 % -- Normal range between ( 4 and 5 ) Baso Percent Man: 0 % -- Normal range between ( 0 and 1 ) Neutrophil Percent Man: 60 % -- Normal range between ( 50 and 65 ) Eos Percent Man: 1 % -- Normal range between ( 0 and 3 ) Platelet Ct Estimate: Increased MPV: 9.2 fL -- Normal range between ( 9.4 and 12.4 ) Lymph Percent Man: 34 % -- Normal range between ( 24 and 44 ) Urinalysis 03/25/2021 11:40 PM Ur RBC: 0-2 /HPF Urine Nitrite: Negative Urine Leukocyte Esterase: Negative Ur Epithelial Cells: 2-5 /HPF Urine Appearance: Clear Urine Glucose Dipstick: Negative Urine Blood Dipstick: Negative Urine Urobilinogen Dipstick: 0.2 EU/dL Urine Protein Dipstick: 100 Ur Bacteria: Trace Urine Color: Yellow Ur WBC: None Seen /HPF Urine Ketones Dipstick: Negative Urine pH Dipstick: *8.0 -- Normal range between ( 6.0 and 8.0 ) Urine Bilirubin Dipstick: Negative Urine Specific [place]: 1.020 -- Normal range between ( 1.005 and 1.030 ) Urine Type.: U CleanCatch Urine Culture if Indicated: Not Indicated General Chemistry 03/25/2021 11:05 PM Creatinine Level: 1.00 mg/dL -- Normal range between ( 0.55 and 1.02 ) Sodium Level: 138 mmol/L -- Normal range between ( 136 and 146 ) Potassium Level: 4.3 mmol/L -- Normal range between ( 3.5 and 5.1 ) Chloride Level: 104 mmol/L -- Normal range between ( 102 and 112 ) Carbon Dioxide Level: 29 mmol/L -- Normal range between ( 21 and 32 ) Anion Gap: 9 -- Normal range between ( 9 and 20 ) Bilirubin Total: 0.2 mg/dL -- Normal range between ( 0.2 and 1.2 ) A/G Ratio: 0.8 -- Normal range between ( 1.1 and 2.5 ) ALT: 26 Units/Liter -- Normal range between ( 13 and 56 ) AST: 14 Units/Liter -- Normal range between ( 5 and 37 ) Globulin: 4.0 Gram/dL -- Normal range between ( 1.5 and 4.5 ) Alk Phos: 64 Units/Liter -- Normal range between ( 27 and 136 ) Bun/Creatinine: 37.0 -- Normal range between ( 8.0 and 20.0 ) Calcium Level: 9.4 mg/dL -- Normal range between ( 8.4 and 10.1 ) eGFR : >60 mL/min/1.73m2 eGFR NonAfrican: 55 mL/min/1.73m2 Glucose Level: 172 mg/dL -- Normal range between ( 74 and 106 ) Magnesium Level: 2.5 mg/dL -- Normal range between ( 1.5 and 2.4 ) Blood Urea Nitrogen: 37 mg/dL -- Normal range between ( 7 and 22 ) Protein Total: 7.4 Gram/dL -- Normal range between ( 6.4 and 8.2 ) Albumin Level: 3.4 Gram/dL -- Normal range between ( 3.4 and 5.0 ) Lipase Level: 106 Units/Liter -- Normal range between ( 73 and 393 ) Education [employer] Hypertension, Adult High blood pressure (hypertension) is when the force of blood pumping through the arteries is too strong. The arteries are the blood vessels that carry blood from the heart throughout the body. Hypertension forces the heart to work harder to pump blood and may cause arteries to become narrow or stiff. Untreated or uncontrolled hypertension can cause a heart attack, heart failure, a stroke, kidney disease, and other problems. A blood pressure reading consists of a higher number over a lower number. Ideally, your blood pressure should be below 120/80. The first ( top ) number is called the systolic pressure. It is a measure of the pressure in your arteries as your heart beats. The second ( bottom ) number is called the diastolic pressure. It is a measure of the pressure in your arteries as the heart relaxes. What are the causes? The exact cause of this condition is not known. There are some conditions that result in or are related to high blood pressure. What increases the risk? Some risk factors for high blood pressure are under your control. The following factors may make you more likely to develop this condition: ??? Smoking. ??? Having type 2 diabetes mellitus, high cholesterol, or both. ??? Not getting enough exercise or physical activity. ??? Being overweight. ??? Having too much fat, sugar, calories, or salt (sodium) in your diet. ??? Drinking too much alcohol. Some risk factors for high blood pressure may be difficult or impossible to change. Some of these factors include: ??? Having chronic kidney disease. ??? Having a family history of high blood pressure. ??? Age. Risk increases with age. ??? Race. You may be at higher risk if you are . ??? Gender. Men are at higher risk than women before age 45. After age 65, women are at higher risk than men. ??? Having obstructive sleep apnea. ??? Stress. What are the signs or symptoms? High blood pressure may not cause symptoms. Very high blood pressure (hypertensive crisis) may cause: ??? Headache. ??? Anxiety. ??? Shortness of breath. ??? Nosebleed. ??? Nausea and vomiting. ??? Vision changes. ??? Severe chest pain. ??? Seizures. How is this diagnosed? This condition is diagnosed by measuring your blood pressure while you are seated, with your arm resting on a flat surface, your legs uncrossed, and your feet flat on the floor. The cuff of the blood pressure monitor will be placed directly against the skin of your upper arm at the level of your heart. It should be measured at least twice using the same arm. Certain conditions can cause a difference in blood pressure between your right and left arms. Certain factors can cause blood pressure readings to be lower or higher than normal for a short period of time: ??? When your blood pressure is higher when you are in a health care provider's office than when you are at home, this is called white coat hypertension. Most people with this condition do not need medicines. ??? When your blood pressure is higher at home than when you are in a health care provider's office, this is called masked hypertension. Most people with this condition may need medicines to control blood pressure. If you have a high blood pressure reading during one visit or you have normal blood pressure with other risk factors, you may be asked to: ??? Return on a different day to have your blood pressure checked again. ??? Monitor your blood pressure at home for 1 week or longer. If you are diagnosed with hypertension, you may have other blood or imaging tests to help your health care provider understand your overall risk for other conditions. How is this treated? This condition is treated by making healthy lifestyle changes, such as eating healthy foods, exercising more, and reducing your alcohol intake. Your health care provider may prescribe medicine if lifestyle changes are not enough to get your blood pressure under control, and if: ??? Your systolic blood pressure is above 130. ??? Your diastolic blood pressure is above 80. Your personal target blood pressure may vary depending on your medical conditions, your age, and other factors. Follow these instructions at home: Eating and drinking ??? Eat a diet that is high in fiber and potassium, and low in sodium, added sugar, and fat. An example eating plan is called the DASH (Dietary Approaches to Stop Hypertension) diet. To eat this way: ? Eat plenty of fresh fruits and vegetables. Try to fill one half of your plate at each meal with fruits and vegetables. ? Eat whole grains, such as whole-wheat pasta, brown rice, or whole-grain bread. Fill about one fourth of your plate with whole grains. ? Eat or drink low-fat dairy products, such as skim milk or low-fat yogurt. ? Avoid fatty cuts of meat, processed or cured meats, and poultry with skin. Fill about one fourth of your plate with lean proteins, such as fish, chicken without skin, beans, eggs, or tofu. ? Avoid pre-made and processed foods. These tend to be higher in sodium, added sugar, and fat. ??? Reduce your daily sodium intake. Most people with hypertension should eat less than 1,500 mg of sodium a day. ??? Do not drink alcohol if: ? Your health care provider tells you not to drink. ? You are , may be , or are planning to become . ??? If you drink alcohol: ? Limit how much you use to: ? 0???1 drink a day for women. ? 0???2 drinks a day for men. ? Be aware of how much alcohol is in your drink. In the [place] one drink equals one 12 oz bottle of beer (355 mL), one 5 oz glass of wine (148 mL), or one 1?? oz glass of hard liquor (44 mL). Lifestyle ??? Work with your health care provider to maintain a healthy body weight or to lose weight. Ask what an ideal weight is for you. ??? Get at least 30 minutes of exercise most days of the week. Activities may include walking, swimming, or biking. ??? Include exercise to strengthen your muscles (resistance exercise), such as Pilates or lifting weights, as part of your weekly exercise routine. Try to do these types of exercises for 30 minutes at least 3 days a week. ??? Do not use any products that contain nicotine or tobacco, such as cigarettes, e-cigarettes, and chewing tobacco. If you need help quitting, ask your health care provider. ??? Monitor your blood pressure at home as told by your health care provider. ??? Keep all follow-up visits as told by your health care provider. This is important. Medicines ??? Take [id number] and prescription medicines only as told by your health care provider. Follow directions carefully. Blood pressure medicines must be taken as prescribed. ??? Do not skip doses of blood pressure medicine. Doing this puts you at risk for problems and can make the medicine less effective. ??? Ask your health care provider about side effects or reactions to medicines that you should watch for. Contact a health care provider if you: ??? Think you are having a reaction to a medicine you are taking. ??? Have headaches that keep coming back (recurring). ??? Feel dizzy. ??? Have swelling in your ankles. ??? Have trouble with your vision. Get help right away if you: ??? Develop a severe headache or confusion. ??? Have unusual weakness or numbness. ??? Feel faint. ??? Have severe pain in your chest or abdomen. ??? Vomit repeatedly. ??? Have trouble breathing. Summary ??? Hypertension is when the force of blood pumping through your arteries is too strong. If this condition is not controlled, it may put you at risk for serious complications. ??? Your personal target blood pressure may vary depending on your medical conditions, your age, and other factors. For most people, a normal blood pressure is less than 120/80. ??? Hypertension is treated with lifestyle changes, medicines, or a combination of both. Lifestyle changes include losing weight, eating a healthy, low-sodium diet, exercising more, and limiting alcohol. This information is not intended to replace advice given to you by your health care provider. Make sure you discuss any questions you have with your health care provider. Document Revised: 06/02/2019 Document Reviewed: 06/02/2019 [employer] Patient Education ?? 2020 [employer] Constipation, Adult Constipation is when a person has fewer bowel movements in a week than normal, has difficulty having a bowel movement, or has stools that are dry, hard, or larger than normal. Constipation may be caused by an underlying condition. It may become worse with age if a person takes certain medicines and does not take in enough fluids. Follow these instructions at home: Eating and drinking ??? Eat foods that have a lot of fiber, such as fresh fruits and vegetables, whole grains, and beans. ??? Limit foods that are high in fat, low in fiber, or overly processed, such as italian fries, hamburgers, cookies, candies, and soda. ??? Drink enough fluid to keep your urine clear or pale yellow. General instructions ??? Exercise regularly or as told by your health care provider. ??? Go to the restroom when you have the urge to go. Do not hold it in. ??? Take [id number] and prescription medicines only as told by your health care provider. These include any fiber supplements. ??? Practice pelvic floor retraining exercises, such as deep breathing while relaxing the lower abdomen and pelvic floor relaxation during bowel movements. ??? Watch your condition for any changes. ??? Keep all follow-up visits as told by your health care provider. This is important. Contact a health care provider if: ??? You have pain that gets worse. ??? You have a fever. ??? You do not have a bowel movement after 4 days. ??? You vomit. ??? You are not hungry. ??? You lose weight. ??? You are bleeding from the anus. ??? You have thin, pencil-like stools. Get help right away if: ??? You have a fever and your symptoms suddenly get worse. ??? You leak stool or have blood in your stool. ??? Your abdomen is bloated. ??? You have severe pain in your abdomen. ??? You feel dizzy or you faint. This information is not intended to replace advice given to you by your health care provider. Make sure you discuss any questions you have with your health care provider. Document Revised: 09/04/2018 Document Reviewed: 03/12/2017 [employer] Patient Education ?? 2020 [employer]. Emergency Awareness and Preventative Care STROKE is [...] Assistance with quitting is available by contacting 0-473-HGYS-NOW. This is a free resource providing counseling, [...] was given the opportunity to ask questions. Patient/Prescriptionist Name: Patient/Prescriptionist Signature: Relationship to Patient: Clinician/Hospital Prescriptionist Signature: Please Provide a Telephone Number Where You Can Be Reached: Is it Permissible To Leave a Message? Date: documented in this encounter Plan of Treatment Not on file documented as of this encounter Visit Diagnoses Not on filedocumented in this encounter
--- OUTSIDE RECORDS SUMMARY | 2025-07-29 11:53 | XMS_ITS | Data Portability ---
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 Initial evaluation revealed signs and symptoms consistent with R shoulder full thickness rotator cuff tear. In 6 weeks, patient will: 1) Display independence with HEP and verbalize compliance as written 2) Display Right Shoulder ROM: Flex 100 deg AB 90 deg ER 40 deg 3) Display Right Shoulder MMT: Flex 3+/5, Abd 3+/5, IR 4/5, ER 4/5 4) Display appropriate scapular kinematics to 90deg elevation 5) Display appropriate GH jt mobility within available ROM In 12 weeks, Patient will: 1) Discharge independent with HEP and Self-Management skills 2) Return to Activities of Daily Living with modifications 3) Display Right Shoulder AROM: Flex 120 deg AB 110 deg ER 60 deg 4) Display Right Shoulder MMT: Flex 4+/5, Abd 4+/5, IR 5/5, ER 5/5 5) Display appropriate ST and GH kinematics with active and resisted elevation within available ROM Plan of Treatment Rehab Potential: Fair due to longevity of symptoms, CVA with R sided weakness Complicating Factors Body Structure and Function: Weakness (2/5) deferred formal MMT due to injection earlier today Range of Motion Limitation: SIGNIFICANT R SH Postural Deficits: MODERATE see objective Neuromuscular Deficits: MODERATE scapular dyskinesis Activity Limitations: Impact on ADLs: MODERATE Functional Limitations: MODERATE Participation Restrictions: unable to participate in community social events due to R shoulder pain Personal: 70 yo female, BMI 39.9, CVA-R sided weakness, ambulates with rollator Clinical presentation: Evolving due to comorbidities, R shoulder AROM and strength deficits associated with full thickness rotator cuff tear The above factors could have an effect on the patient's rehabilitation outcome/course of treatment/timelin e. Treatment Plan: Episode of care to include: Initial Evaluation, Manual Techniques, Therapeutic Exercise, Home Exercise Program, Modalities (as indicated), Mechanical Traction, Postural Correction/[employer] Education Goals, POT and Rehabilitation potential were discussed and agreed upon with the: Patient Pt's Spouse Frequency of Treatment: 1x/wk for 12 weeks Frequency and duration of care to depend on pt s response to skilled PT intervention. I certify the need for the above PT outpatient services for this patient who is under my care. The plan for these services has been reviewed. Physician Signature: Date: [email or web address] Not available 03/22/2021 14:06:23 Plan of Treatment Reminders Order Date Submit Date Provider Last Modified By Organization Details Last Modified Time Details Appointments None recorded. Lab None recorded. Referral None recorded. Procedures None recorded. Surgeries None recorded. Imaging MRI, shoulder, w/o contrast 2021 022 [facility], [address] [place] [address], [address], [place], [address], 09:48:57 Medication Orders Medrol (Cy) 4 mg tablets in a dose pack 2021 022 [email or web address] 2 [facility] #[id number], [address] [place], [address], 17:39:16 Patient TargetsNo targets recorded. Patient Instructions Encounter Date Encounter Id Patient Instructions Last Modified By Organization Details Last Modified Time 03/22/2021 [id number] tough condition to offer good success rate w attempted rc repair as i think it has been there awile prior to fall out of bed Discussed conservative and surgical options with the patient in detail. Discussed the fact that though most people are better with surgery; some are no better and some are worse. I also discussed the inherent risks and complications such as: , DVT, infection, stiffness, loss of motion and or strength, as well as need for extensive postoperative care with physical therapy. Patient comfortable with plan and wishes to proceed with sas steroid injection which seemed to have helped dry needling rx given for therapy f/u 5 wks CATEGORY DESCRIPTION MINUTES Prepare to see the patient (e.g. 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 Worse since Pop on Friday patient stated that her Right shoulder has gotten worse / constant pain and discomfort pain and discomfort all the way down both arms and into neck / Issues with motion (Lifting causes pain and discomfort) / weakness / simple ADL's Taking Plaxicis Patient stated that injection may have helped (03/22/2021) Patient using walker today Exam: Right Shoulder: Large Bone Spur / RTC / Bicep Right Shoulder range of motion: Flexion: Right 100 Abduction: Right 90 Plan: suspect biceps injury she is in significant pain and has been taking oxycodone Medrol Dose pack called in for patient today ([facility]) patient already has X-Ray right shoulder and we reviewed xray showing significant osteopahyte and mri from [facility] showing retear of rotator cuff at prior repair by dr fernandez Order MRI right Shoulder (without contrast) to evaluate for RTC / Bicep injury / RC; after MRI WOULD REQUIRE PREOP EVAL FROM 2011 TWO BACK SURGERIES SINCE THEN Not available 11/27/2021 11:22:48 12/04/2021 [id number] Discussed conservative and surgical options with the patient in detail. Discussed the fact that though most people are better with surgery; some are no better and some are worse. I also discussed the inherent risks and complications such as: , DVT, infection, stiffness, loss of motion and or strength, as well as need for extensive postoperative care with physical therapy. Patient comfortable with plan and wishes to proceed with scheduling surgery. Discussed AGUEDA issues, and concerns of narcotic use and abuse. Discussion in excess of minutes. She cannot take nsaids Her diabetes yielded a blood sugar of 200 w medrol I discussed concern of this with steroid injection We would prefer to avoid surgery She wanted to try an injection today so i did just a single mg rather than the usual 2mg f/u she will call us next week to update or earlier with problems herman Not available 12/09/2021 19:13:38 Reason for Referral None Reported. Results Created Date Observation Date Name Description Value Unit Range Abnormal Flag Note LastModifiedBy Organization Detail LastModifiedTime 02/23/20 21 02/21/2021 MRI, cervi ulysses spine , w/o contr ast No observ ation record ed. [facility] [address], [place], [address], 02/22/2021 13:34:30 03/09/20 21 03/09/2021 XR, shoul jemima, 2 or more view [facility] [address] [place] [address] Patipraneeth t Name: DULCE KOHLER Patipraneeth cleveland : 1949 Patien t 7 Orderi ng Provid er: JULIAN ASKEW EXAM DATE: 2020 EXAM: XR RT SHOULD ER COMPLE TE RADIOG RAPHIC VIEWS: 4V right should er COMPAR PLACIDO: None. HISTOR Y: Should er pain FINDIN GS: The alignm ent is intact . Modera te degene rative change s of the AC joint and glenoh umeral joint are presen t. Amorph ous periar ticula r calcif icatio ns are sugges tonio which can indica te calcif ic bursit is/ten diniti s. No defini te fractu re is detect ed. Visual ized right lung clear IMPRES TIM: Modera te degene rative change s of the right should er with amorph ous periar ticula r calcif icatio ns Interp reted By: Ambrocio Campbell MD Electr onical ly Signed By: Ambrocio Campbell MD on 03/09/20 12:12 PM [facility] [place] [address] , [place], [address], 03/16/2021 00:08:20 03/19/20 21 03/19/2021 MRI, carmita jemima, w/o contr ast No observ ation record ed. [facility] [address], [place], [address], 03/19/2021 22:26:44 12/06/19 22 12/04/2021 MRI, freemanul jemima, w/o contr ast No observ ation record ed. [facility] [address], [place], [address], 12/19/2021 16:20:41 02/27/20 23 01/15/2023 MRI, cervi ulysses spine , w/o contr ast No observ ation record ed. [facility] [address], [place], [address], 04/26/2023 20:08:36 04/14/20 23 04/14/2023 XR, cervi ulysses spine , 2 or 3 view [facility] [address] [place] [address] Patipraneeth cleveland Name: DULCE cleveland : 1949 Saleem cleveland 7 Orderi ng Provid er: TIESHA Bateman EXAM DATE: 2022 EXAM: XR CERVIC AL SPINE FLEX/E XT ONLY CLINIC AL INFORM ATION: Neck pain. IMAGES PROVID ED: Latera l views of the cervic al spine in flexio n and extens ion. COMPAR PLACIDO: None. FINDIN GS: FINDIN GS: Verteb ral body height s are normal . Multil evel disc space reduct ion is seen with anteri or and latera l osteop hytes. No abnorm ality of alignm ent is seen. No instab ility is seen on flexio n or extens ion. No radiog raphic eviden ce of injury is noted. IMPRES TIM: Degene rative change s of the cervic al spine. No instab ility. Interp reted By: Quang Hutton MD Electr onical ly Signed By: Quang Hutton MD on 023 4:26 PM [facility] [address] [place], [address], 04/26/2023 13:39:24 08/14/20 23 08/14/2023 nerve condu ction study /EMG (PROC ) No observ ation record ed. wilfrido Cevallos MD [address] [facility] [address], [place], [address], 09/02/2023 14:54:54 Result Notes Documentation Provider Name and Address Organization Details Recorded Time Xr, Cervical Spine, 2 Or 3 View : [facility] [address] [place] [address] Patient Name: DULCE KOHLER Patient : 1950 Patient Ordering Provider: TIESHA MONTELONGO EXAM DATE: 04/14/2023 EXAM: XR CERVICAL SPINE FLEX/EXT ONLY CLINICAL INFORMATION: Neck pain. IMAGES PROVIDED: Lateral views of the cervical spine in flexion and extension. COMPARISON: None. FINDINGS: FINDINGS: Vertebral body heights are normal. Multilevel disc space reduction is seen with anterior and lateral osteophytes. No abnormality of alignment is seen. No instability is seen on flexion or extension. No radiographic evidence of injury is noted. IMPRESSION: Degenerative changes of the cervical spine. No instability. Interpreted By: Victor M Hutton MD HA MONTELONGO MD [address] [place] [address], [address], [facility] 04/25/2023 12:55:55 Problems Name Problem SNOMED Code Status Onset Date Resolution Date Notes Provider Name and Address Organization Details Recorded Time Epigastri c pain 25199680 Active 2015 From Automated Load;Prov ider: Nickolas Vicente;Stat us: [facility] 11:08:29 Right upper quadrant pain 656466914 Active 2015 From Automated Load;Prov ider: Nickolas Vicente;Stat us: Active [facility] 11:08:29 Abdominal bloating 025108199 Active 2015 From Automated Load;Prov ider: Nickolas Vicente;Stat us: Active [facility] 11:08:29 Nausea 406468004 Active 2015 From Automated Load;Prov ider: Nickolas Vicente;Stat us: Active [facility] 11:08:29 Cerebral infarctio n 745003099 Active 2015 From Automated Load;Prov ider: Jake Cevallos;Abiodun salazar: Active Carla robledo, [facility] 11:08:29 Pain of right shoulder joint 021105327125 42103 Active 2020 RODRIGUEZ BLANCO, PT, DPT [address] [place] [address], [address], [facility] 13:49:01 Full thickness rotator cuff tear 350997859 Active 2020 RODRIGUEZ BLANCO, PT, DPT [address] [place] [address], [address], [facility] 13:49:02 Muscle weakness 94367271 Active 2020 RODRIGUEZ BLANCO, PT, DPT [address] [place] [address], [address], [facility] 13:49:03 Incoordin ation 376368140 Active 2020 RODRIGUEZ BLANCO, PT, DPT [address] [place] [address], [address], [facility] 13:49:03 Problem Notes None recorded. Procedures Surgical History Date Name Laterality Status Provider Name and Address Organization Details Recorded Time 12/05/19 22 Injection - Joint/Bursa, Major completed JULIAN ASKEW MD [address] [place] [address], [address], [facility] 12/09/2021 16:42:40 03/22/20 21 PT Evaluation - Moderate Complexity completed RODRIGUEZ BLANCO PT, DPT [address] [place] [address], [address], [facility] 03/22/2021 13:46:58 03/22/20 21 PT Therapeutic Exercise completed RODRIGUEZ BLANCO PT, DPT [address] [place] [address], [address], [facility] 03/22/2021 13:47:06 03/22/20 21 Injection - Joint/Bursa, Major completed JULIAN ASKEW MD [address] [place] [address], [phone], [facility] 03/22/2021 16:11:45 07/09/20 19 LUMBAR DISCECTOMY (SURG) completed Angeles Qureshi [facility] 07/14/2019 15:40:28 04/05/20 19 LUMBAR DISCECTOMY (SURG) completed [facility] Qureshi [facility] 04/12/2019 08:22:27 04/14/20 17 VAS - Carotid Duplex completed CARLOS LINDQUIST MD [address] [place], [address], [facility] 04/14/2017 15:50:38 [facility] 10/22/2016 08:51:19 [facility]olecyst[facility] 10/22/2016 08:51:23 [facility] 10/22/2016 08:51:28 [facility] 10/22/2016 08:51:40 Knee Surgery completed Nitza Renard RAJAN [facility] 10/22/2016 08:55:56 Shoulder Surgery [facility] 10/22/2016 08:56:09 Imaging Results None recorded. Procedure Notes None recorded. Medical Equipment None Reported. Allergies Allergen ID Allergen Name Allergen Category Reaction Reaction Severity Criticality Documentation Date Start Date Code Code System Note Provider Name and Address Organization Details Recorded Time 20140411 [facility] medicatio n Not available Not available Not available 08/29/20162015 39819 5 RxNorm Comme nt: Creat ed By: Denisse elizalde Date: 2015 3:02: 07 PM; Not Available [facility] 6 12:21:53 449063 Substance with prostagla ndin-endo peroxide synthase isoform 2 inhibitor mechanism of action (substanc e) Not available Not available Not available Not available 08/30/20162010 37908 0005 SNOMED Comme nt: Creat ed By: Jr. Staci Dagn;Ileana campa Date: 07/23 11:41 :30 AM; Not Available [facility] 6 04:27:24 586084 metformin medicatio n Not available Not available Not available 04/07/2019 6809 RxNorm [facility] 11:08:28 513997 fenofibra te medicatio n Not available Not available Not available 04/07/2019 8703 RxNorm [facility] 11:08:28 Medications Name Sig Start Date Stop Date Status Note LastModified by Organization Details LastModified Time Multiple Vitamin capsule Daily active Duration : 30 days;Pb quency: daily;Me dication Descript ion: multivit hurd; Dosage:1 ; Route:or al; refills: 3; Quantity :100 capsule Not Available Not Available Not Available Lasix 40 mg tablet Daily active Frequenc y: daily;Al t Frequenc y: as direct.; Medicati on Descript ion: furosemi de; Dosage:1 ; Route:or al; refills: 0; Quantity :30 tablet Not Available Not Available Not Available Medrol (Cy) 4 mg tablets in a dose pack as directed 12/04 completed Not Available Not Available Not Available Lantus U-100 Insulin 100 unit/mL subcutane ous solution active Medicati on Descript ion: insulin glargine ; Route:carrera bcutaneo us; refills: 0 Not Available Not Available Not Available Ultram 50 mg tablet Every eight hours active Duration : 10 days;Pb quency: q8h;Medi cation Descript ion: tramadol ; Dosage:1 ; Route:or al; refills: 0; Quantity :30 tablet Not Available Not Available Not Available Klor-Con 20 mEq oral packet Daily active Duration : 30 days;Pb quency: daily;Me dication Descript ion: potassiu m chloride ; Dosage:1 ; Route:or al; refills: 0; Quantity :60 powder for reconsti tution Not Available Not Available Not Available amlodipin e 5 mg tablet Daily 02/19 completed Frequenc y: daily;Me dication Descript ion: amlodipi ne; Dosage:1 ; Route:or al; refills: 0 Not Available Not Available Not Available Plavix 75 mg tablet Daily active Frequenc y: daily;Me dication Descript ion: clopidog rel; Dosage:1 ; Route:or al; refills: 5; Quantity :30 tablet Not Available Not Available Not Available Lortab 10 mg-500 mg tablet As Directed active Frequenc y: as direct.; Medicati on Descript ion: acetamin ophen-hy drocodon e; Dosage:a s directed ; Route:or al; refills: 0 Not Available Not Available Not Available Novolog U-100 Insulin aspart 100 unit/mL subcutane ous solution Three times a day active Duration : 10 days;Pb quency: tid;Medi cation Descript ion: insulin aspart; Route:carrera bcutaneo us; refills: 0; Quantity :90 solution Not Available Not Available Not Available lisinopri l 40 mg tablet Bedtime active Duration : 30 days;Pb quency: hs;Medic ation Descript ion: lisinopr il; Dosage:1 ; Route:or al; refills: 5; Quantity :30 tablet Not Available Not Available Not Available fluticaso ne propionat e 50 mcg/actua tion nasal spray,[place] [employer] Two times a day active Instruct ions: 4 sprays into mouth, then swallow. Rinse mouth with water and spit after every use.;Pb quency: bid;Medi cation Descript ion: fluticas one nasal; Dosage:4 ; Route:na zofia; refills: 0; Quantity :1 spray Not Available Not Available Not Available loratadin e 10 mg tablet Daily active Frequenc y: daily;Me dication Descript ion: loratadi ne; Dosage:1 ; Route:or al; refills: 5; Quantity :30 tablet Not Available Not Available Not Available AcipHex 20 mg tablet,de layed release Daily active Duration : 30 days;Pb quency: daily;Me dication Descript ion: rabepraz ole; Dosage:1 ; Route:or al; refills: 0; Quantity :30 tablet, extended release Not Available Not Available Not Available metoprolo l tartrate 25 mg tablet Daily active Frequenc y: daily;Me dication Descript ion: metoprol ol; Dosage:1 /2; Route:or al; refills: 0 Not Available Not Available Not Available Calcium-V itamin D active Medicati on Descript ion: calcium- vitamin D; Route:or al; refills: 0 Not Available Not Available Not Available Cymbalta active Medicati on Descript ion: duloxeti ne; Route:or al; refills: 0 Not Available Not Available Not Available Movantik 12.5 mg tablet active Medicati on Descript ion: naloxego l; Route:or al; refills: 0 Not Available Not Available Not Available Vitals Date Recorded Body height Body mass index (BMI) Body weight Provider Name and Address Organization Details Last Updated DateTime 11/27/2021 165.1 cm 39.9 kg/m2 486311.17 g Adrienne Perales [facility] 11/27/2021 10:37:25 Date Recorded Body height Body mass index (BMI) Body weight Provider Name and Address Organization Details Last Updated DateTime 12/04/2021 165.1 cm 39.9 kg/m2 098727.17 g Adrienne Perales [facility] 12/04/2021 17:35:16 Date Recorded Body height Body mass index (BMI) Body weight Pain severity - 0-10 verbal numeric rating [Score] - Reported Systolic And Diastolic Provider Name and Address Organization Details Last Updated DateTime 03/22/2021 165.1 cm 39.9 kg/m2 252406.1 7 g 10 132/76 mm[Hg] Linh Tyrell [facility] 08:40:33 Date Recorded Body weight Heart rate Systolic And Diastolic Provider Name and Address Organization Details Last Updated DateTime 04/14/2023 562886.17 g 82 /min 142/80 mm[Hg] Ludmilathang Bills [facility] 04/14/2023 13:48:38 Social History Question Answer Notes LastModified by Organizat ion Details LastModified Time Tobacco Smoking Status Never [facility] 10/22/2016 08:50:59 Live Alone Or With Others? With Others Information not available 10/22/2016 Marital Status Informatio n not available 10/22/2016 What Was The Date Of Your Most Recent Tobacco Screening? 03/24/2019 Information n ot available 11/23/2019 Sex: Female Functional Status Question Answer Note LastModified by Organization D etails LastModified Time What is your level of alcohol consumption? None Information not available 10/22/2016 Mental Status None recorded. Family History Relationship Description Onset Age of this Age Resolved Age Notes LastModified by Organization Details LastModified Time Unspecified Relation Harmful pattern of use of alcohol Not available 2016 08:49:34 Unspecified Relation Asthma Not available 10/22/19 08:49:46 Unspecified Relation Acute myocardial infarction Not available 10/22 08:49:55 Unspecified Relation Hypertensive disorder Not available 2016 08:50:13 Unspecified Relation Hyperlipidem ia Not available 2016 08:50:20 Unspecified Relation Osteoporosis Not available 08:50:26 Unspecified Relation Tuberculosis Not available 08:50:43 Brother Heart disease Not available 2016 08:50:05 Mother Heart disease Not available 2016 08:50:05 Mother Family history of stroke Not available 2016 08:50:34 Sister Arthritis Not availabl e 10/22/2016 08:50:50 Medical History Condition Response Allergies/Hayfever Y Heart Conditions Y Migraines N Depression Y COPD N Pneumonia Y Anesthesia Complications N Heart Attack (NE) N Anxiety Disorder Y Diabetes Y Bleeding Disorder N Seizures/Epilepsy N Arthritis Y Blood Clot N Cancer N Stroke Y Asthma Y Blood Thinners Y Sleep Apnea N High Cholesterol Y Liver Disease N Heart Disease Y Hypertension Y Osteoporosis N Kidney Disease N Gynecological HistoryNo gynecological history recorded. 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 [id number] CARLOS LINDQUIST MD [facility] CLOSED [address] [place] [address] 04/14/2017 14:51:00 04/15/2017 15:44:50 History of cerebrovascular accident 371855956 Z86.73 Left carot id artery occlusion 7873451794 95320 I65.22 [id number] LUCRECIA QUIROZ PA-C [facility] [address] [place] [address] 04/28/2017 15:23:04 04/28/2017 16:57:08 Pain of shoulder region 05834843 M25.566 [id number] ONUR WINSTON MD NEUROSURG [facility] [address] [place] [address] 03/24/2019 14:26:14 03/24/2019 16:16:33 Lumbosacral radiculopathy 4520227 M54.16 Lumbar dis c prolapse with radiculopathy 138910025 M51.16 -The patient is being seen for right leg pain. These symptoms have been present to some degree for several years but progressiv e. Severe episode over the last month. She has had some recent improvemen t on steroids. Her pain is a little outside of the normal distributi on for radicular symptoms. Positive straight leg raise test trigger her symptoms. MRI of the lumbar spine was performed. She has a degenerati ve disc disease at L3-4. Moderate foraminal stenosis and a small recess disc herniation with a small superiorly migrated fragment. Because of her underlying fibromyalg ia, it is hard to predict exactly how the patient may respond to surgery although I think it is reasonable to consider a focal lumbar microdisce ctomy. We would also consider sending her for injections if she was interested . She will discuss the matter further with her . Contact us in the next few days to let us know her decision. [id number] ONUR WINSTON MD SURGERY SCHEDULE [address] [place] [address] 04/13/2019 16:29:35 04/14/2019 08:08:49 [id number] ONUR WINSTON [facility] [address] [place] [address] 05/18/2019 10:10:13 05/19/2019 09:56:49 Postoperative care [id number] Z48.89 Ms. Kohler is a 68-year-ol d lady status post a right L3-4 minimally invasive microdisce ctomy on the 05 April 2019. Postoperat joaquim course complicate d with generalize d weakness, confusion, and worsening gait. She has a history of a prior left MCA stroke. He is about 6-8 years ago. She tells me she had residual issues with gait as well as speech difficulty since that time. Very much possible that some of her issues with confusion or due to a combinatio n of her prior stroke as well as anesthesia . Agree with a cranial MRI. We will review the images from this performed on . In regards to her low back issues, again she had some atypical symptoms. We have discussed that surgery would be less predictabl e. That said, it does sound like that she is getting a little better today with respect to the low back and leg pain. Dr. Cevallos is also ordered a lumbar MRI. We will review these images and there performed on as well. Lastly, given her worsening gait issues, she does have some hyperrefle cari in her upper extremitie s as well as a right Paul sign. Do think it's good idea to go ahead and get a cervical MRI just to make sure that there is no severe stenosis or cord compressio n contributi ng to her gait issues. We will add this to her MRI studies that Dr. Cevallos has ordered for this . We will call her with her interpreta tion of these findings, and any further surgical recommenda tions. Follow-up based on final review of her imaging. She knows to call with any questions or concerns. She is happy with this plan. Patient seen and examined with attending physican, Dr. Winston. [id number] ONUR WINSTON MD [facility] [address] [facility] [place] [address] 07/06/2019 10:01:49 07/06/2019 14:01:38 Lumbar radiculopathy [id number] M54.16 -She has a number of complaints including problems with her balance and neck pain. MRI of the cervical spine was obtained. She is a small disc bulge at C3-4. No significan t central or foraminal stenosis. No evidence of signal change within the spinal cord to explain any issues with her balance. MRI of the lumbar spine was performed. Expected postoperat joaquim changes. No evidence of infection. No evidence of recurrent disc. There is a small residual disc bulge at this level. It appears to be improved compared to her preoperati ve status. I spoke extensivel y with the patient and her today during the visit. There is not a great explanatio n based on her workup on why she continues to have significan t pain. May be suffering from radiculiti s, neuropathy . Part of the differenti al remains indolent infection. We will send her for lab work including CBC, CRP, blood cultures, ESR cbc crp esr blood cutlures Intermitte nt confusion [id number] R41.0 -The patient was seen by her neurologis t. MRI of the brain was obtained. No Evidence of acute infarct. This informatio n was communicat ed to the patient and her . [id number] ONUR WINSTON MD SURGERY SCHEDULE [address] [place] [address] 07/16/2019 10:50:11 07/16/2019 12:02:36 [id number] JULIAN ASKEW MD ORTHOPEDI CS [facility] CL[facility] [address] [place] [address] 02/06/2021 10:55:42 02/06/2021 12:26:22 Pain of right shoulder joint [id number] M25.511 Pain in ce rvical spine [id number] M54.2 [id number] JULIAN ASKEW MD ORTHOPEDI CS [facility] CL[facility] [address] [place] [address] 03/09/2021 10:52:21 03/09/2021 11:58:11 Pain of right shoulder joint [id number] M25.938 [id number] JULAIN ASKEW MD ORTHOPEDI CS [facility] CL[facility] [address] [place] [address] 03/22/2021 08:29:35 03/22/2021 10:27:20 Full thickness rotator cuff tear [id number] M75.120 Scapulalgia [id number] M25 .010 [id number] RODRIGUEZ M ROUSE, PT, DPT PHYSICAL THERAPY / HAND THERAPY [facility] [address] [address] 03/22/2021 12:51:03 03/22/2021 14:09:10 Pain of right shoulder joint [id number] M25.511 Full thick ness rotator cuff tear [id number] M75.121 Muscle weakness 51863799 M62.81 Incoordination [id number] R27.9 [id number] JULIAN ASKEW MD ORTHOPEDI [facility] [address] [place] [address] 11/27/2021 09:50:46 11/27/2021 11:29:08 Pain of right shoulder joint [id number] M25.063 [id number] JULIAN ASKEW MD ORTHOPEDI CS [facility] CL[facility] [address] [place] [address] 12/04/2021 17:13:35 12/05/2021 09:46:34 Full thickness rotator cuff tear [id number] M75.120 [id number] TIESHA ANGELA MONTELONGO MD [facility] [address] [facility] [address] [address] [address] [place] [address] 04/14/2023 13:16:10 04/15/2023 04:30:44 Cervical radiculopathy [id number] M54.12 She has mild to moderate cervical spondylosi s and its hard to discern what is new and what is residual from her most recent stroke. I would like for her to undergo x-rays as well as a nerve conduction study and I am going to make a referral to neurology to help manage her recent stroke. I am going to see her back after her studies are available to us. She knows to contact us sooner if any new issues should arise. Health Concerns Section Related Observation LastModified by Organization Detai ls LastModified Time None Recorded Concern Status LastModified by Organization Details LastModified Time None Recorded Advance Directives Directive None Recorded Payers Insurance Date Sequence Insurance Name Policy Number Policy Sanchez Covered Member ID Sanchez Member ID Guarantor Name 03/22/2024 1 [employer] - GOLD PLUS (MEDICARE REPLACEMENT/A DVANTAGE - HMO) Dulce Kohler [id number] Dulce Kohler Notes Date Note Type Note Provider Name and Address Organization Details Recorded Time 03/22/2021 text/html [facility] Evaluati on SubjectiveReported by PatientHPIFor chief complaint, patient reportspain (r shoulder)(r hand dominant). For mechanism, patient reportstraumatic injury. For onset, patient reports2 months(early january - sitting in shower on stool, felt like she was slipping and reached back and grabbed bar with right hand, traction injury w arm pulledapril 15 - fell face down on belly in bedroom). For chronicity, patient reportssub-acute. For severity, patient reportscurrent 10/10,best 10/10, andworst 10/10. For frequency, patient reportsconstant. For sleeping (ability to sleep without pain), patient reportsmoderate problem: pain disrupts sleep (3 to 5) times per night. For prior studies, patient reportsx rayandmri(in chart). For prior treatments, patient reportssurgery. For referring provider, (md kailee). For subjective report, (dulce presents to clinic with complaints of r shoulder pain. she reached to brace herself in the bathroom and a few days later she fell in the bedroom. she reports intermittent numbness and tingling in l ue to l hand and occasionally she gets r elbow to r shoulder. dr. askew injected r gh joint. presents to clinic with rollator.). For past medical, surgical and social history, (cva 2011 r sided weakness, r/l shoulder rotator cuff repair by dr. fernandez approximately 15 years ago, lumbar discectomy 2019). For description of pain/symptoms, (r anterior shoulder and r medial scapular border dull aching and occasional). For aggravating factors, (dressing, bathing, fixing her hair, reaching, feeding). 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 For recreational activities and limitations, (denies regular exercise). For adl limitations, (dressing, bathing, fixing her hair, reaching, feeding).Functional ReportingFor patient specific functional scale, patient reports2- reaching.ROS as noted in the HPI RODRIGUEZ BLANCO, PT, DPT [address] [place], [address], [facility] 03/22/2021 14:06:53 03/22/2021 text/html 03/22/2021 Patient comes in today for FU Right Shoulder and parascapular pain. after fall out of bed prior rcr [address] fernandez she has many questions and concerns we revd her mri today in detail and she has a large retracted tear to below equator and prior biceps tenodesis large subacromial osteophyte Patient states they are worse than last visit. ===== 03/09/21 Patient comes in today for FU C-spine with MRI results. X-RAY: Yes, LC MRI: Yes, Patient has disc SYMPTOMS: Locking Clicking/Popping Catching Buckling Instability Pain with pivot/twist Grinding Swelling Stiffness Burning Numbness/tingling 02/06/21 PCP: Karthik Senior MD - [place], [place] SEEN FOR CONSULTATION AT THE REQUEST OF: Self WHAT: Right Shoulder WHERE: WHEN: few months How: Insidious early january - sitting in shower on stool, felt like she was slipping and reached back and grabbed bar with right hand. traction injury w arm pulled january 18 - fell face down on belly in bedroom Previous history of injury or surgery: Dr. Fernandez did surgery on left and right shoulder approximately 20 years ago . 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 PAIN:Pain Rating: Current 10, Worst 10 Pt reports that last injection lasted up until a week or so ago. Worse since Pop on Friday patient stated that her Right shoulder has gotten worse / constant pain and discomfort pain and discomfort all the way down both arms and into neck / Issues with motion (Lifting causes pain and discomfort) / weakness / simple ADL's Taking Plaxicis Patient stated that injection may have helped (03/22/2021) Patient using walker today [facility] 11/27/2021 11:22:55 12/04/2021 text/html 12/04/21Patient comes in today for FU right shoulder with MRI results.Patient states they are same than last visit. PAIN:Pain Rating: Current 7, Worst 10Medrol was helpful while taking no change in function I reviewed her mri with he freddy detailfull thisckness retear of rotator cuff retracted to glenoid and fatty atrophy also shownAC arthrossi no other pathologic process JULIAN ASKEW MD [facility] [place], [address], [facility] 12/09/2021 19:13:46 04/14/2023 text/html ROS as noted in the HPI Dulce kohler is a very pleasant 72-year-old woman here today in neurosurgical consultation for neck and left upper extremity weakness with numbness. She states she had a stroke with left-sided deficits. She was treated at the [facility] and discharged to [facility]. Since then she has had left upper extremity numbness and weakness. Its been progressively worse. She underwent an MRI in January and she was seen by multiple providers who recommended she be evaluated by a neurosurgeon. She states she is generalized fatigue and has difficulty ambulating. She ambulates with a walker. She states that this all stemmed from her recent stroke. She is not followed by neurologist. 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 Imaging: I personally reviewed her cervical MRI which demonstrates mild to moderate cervical degeneration with a patent central canal and mild to moderate neuroforaminal stenosis TIESHA MONTELONGO MD [address] [facility] [place], [address], [facility] 04/14/2023 15:59:17 OBGyn Episode No OBEpisode recorded.
--- OUTSIDE RECORDS SUMMARY | 2025-07-29 11:53 | XMS_ITS | Encounter Summary ---
Author Organization [employer] ([place], [place], [place], [place]) Address [address] [place] [address] Care Team Providers Care Automation Driver Name Role Phone Unavailable Primary Care Provider Unavailabl e Encounter Details Date Type Department Care Team (Late st Contact Info) Description 07/14/2019 Transcribed Document [facility] Family Medicine [address] [place] [address] ProviderChano MD [address] [place], [place] [id number] Social History Tobacco Use Types Packs/Day Years Used Date Smoking Tobacco: Never Assessed Comments Unknown Sex and Gender Information Value Date Recorded Sex Assigned at Not on file Legal Sex Female 2:07 PM CDT Gender Identity Not on file Sexual Orientation Not on file documented as of this encounter Miscellaneous Notes * Cerner Conversion Note - Historical ProviderMD - 07/14/2019 4:26 PM CDT Event Note Entered On: 07/14/2019 16:30 EDT Performed On: 07/14/2019 16:26 EDT by Miriam Mcgee RN Event Note Event Date/Time : 07/09/2019 13:18 EDT Event Location : Assigned room Description of Event : DR. TAURUS Ordonez GAVE A VERBAL ORDER FOR 50 MCG FENTENYL 1 TIME iv PUSH. Fentenyl was pulled from Accudose at 1318 and 50 mcg was administered by Miriam mcgee RN at 1320 IV push for A-line procedure. Administration was witnessed by Dr. Donald Pradhan. 50 mcg was wasted in accudose and witnessed. Miriam Arellano RN, RN - 07/14/2019 16:26 EDT documented in this encounter Plan of Treatment Not on file documented as of this encounter Visit Diagnoses Not on filedocumented in this encounter
--- OUTSIDE RECORDS SUMMARY | 2025-07-29 11:53 | XMS_ITS | Encounter Summary ---
Author Organization [employer] ([place], [place], [place], [place]) Address [address] [place] [address] Care Team Providers Care Chiseler Head Name Role Phone Unavailable Primary Care Provider Unavailabl e Encounter Details Date Type Department Care Team (Late st Contact Info) Description 10/05/2019 Transcribed Document [facility] Family Medicine [address] [place] [address] ProviderChano MD [address] [place], [place] [id number] Social History Tobacco Use Types Packs/Day Years Used Date Smoking Tobacco: Never Assessed Comments Unknown Sex and Gender Information Value Date Recorded Sex Assigned at Not on file Legal Sex Female 2:07 PM CDT Gender Identity Not on file Sexual Orientation Not on file documented as of this encounter Miscellaneous Notes * Cerner Conversion Note - Historical ProviderMD - 10/05/2019 6:11 PM FOOD SAFETY DIRECTOR Vital Signs ED Entered On: 10/05/2019 18:11 EST Performed On: 10/05/2019 18:11 EST by Urvashi Ta RN Vital Signs ED Temperature Source : Oral Temperature Mode : Fahrenheit Temperature, Fahrenheit : 98.0 Deg F Clinical Temperature, C : 36.7 Deg C Oxygen Therapy Mode : Room air Peripheral Pulse Rate : 76 bpm Respiratory Rate : 18 Breaths/Min Systolic Blood Pressure : 160 mmHg (HI) Diastolic Blood Pressure : 70 mmHg Oxygen Saturation : 98 % Urvashi Ta RN - 10/05/2019 18:11 EST Electronically signed by [facility] Conversion Plant Safety Leader Cerner at 01/23/2023 1:31 PM CDT documented in this encounter Plan of Treatment Not on file documented as of this encounter Visit Diagnoses Not on filedocumented in this encounter
--- OUTSIDE RECORDS SUMMARY | 2025-07-29 11:53 | XMS_ITS | Encounter Summary ---
Author Organization [employer] ([place], [place], [place], [place]) Address [address] [place] [address] Care Team Providers Care Superintendent [employer] Name Role Phone Unavailable Primary Care Provider Unavailabl e Encounter Details Date Type Department Care Team (Late st Contact Info) Description 03/26/2021 Transcribed Document [facility] [place] [facility] [place] [address] ProviderChano MD [address] [place] [address] Social History Tobacco Use Types Packs/Day Years Used Date Smoking Tobacco: Never Assessed Comments Unknown Sex and Gender Information Value Date Recorded Sex Assigned at Not on file Legal Sex Female 2:07 PM CDT Gender Identity Not on file Sexual Orientation Not on file documented as of this encounter Miscellaneous Notes * Cerner Conversion Note - Chano Gatica MD - 03/26/2021 1:59 AM CDT [facility] [place] [address] LUDY ANTONIO MILDRED :1950 Visit Time:03/25/2021 Your Visit Summary Your [...] Within 2 to 3 days Where: [address] [place] [address]- Business (1) Allergies Avandia (CHF) NSAIDs aspirin fenofibrate metFORMIN statins (Fenofibrate, Fenofibrate) Immunizations This Visit No Immunizations Found Medications What How Much When Instructions Next Dose bisacodyl (bisacodyl 10 mg rectal suppository) 1 Suppository(ies) Rectal Every Day Duration: 3 Day(s) Pickup at [facility]/pharmacy #[id number] cephalexin (Keflex 500 mg oral capsule) 1 Capsule(s) Oral Four Times A Day Duration: 7 Day(s) Pickup at [facility]/pharmacy #[id number] acetaminophen-hydrocodone (acetaminophen-HYDROcodone 325 mg-10 mg [...] (Flonase 0.05 mg/ inh nasal spray) 2 [place](s) Nasal Every Day fluticasone-salmeterol (Advair Diskus 250 [...] for as needed for pain Pharmacy Information [facility]/pharmacy #[id number]: [address] [place], [place] [phone] The home medications listed are only as [...] range between ( 11.7 and 14.9 ) [place] Percent Man: 3 % -- Normal range [...] ) Urine Bilirubin Dipstick: Negative Urine Specific Polaris: 1.020 -- Normal range between ( 1.005 [...] provider. This is important. Medicines ??? Take jcli-kxp-nggvmda and prescription medicines only as told by [...] provider. Document Revised: 06/02/2019 Document Reviewed: 06/02/2019 [employer] Patient Education ?? 2020 [employer]. Constipation, Adult Constipation is when a person [...] in fiber, or overly processed, such as estonian fries, hamburgers, cookies, candies, and soda. ??? Drink enough fluid to keep your urine clear or pale yellow. General instructions ??? Exercise regularly or as told by your health care provider. ??? Go to the restroom when you have the urge to go. Do not hold it in. ??? Take neau-vmt-cfunwgg and prescription medicines only as told by [...] provider. Document Revised: 09/04/2018 Document Reviewed: 03/12/2017 Elsevier Patient Education ?? 2020 [employer]. Emergency Awareness and Preventative Care STROKE is [...] Assistance with quitting is available by contacting 9-110-DHUXGameLogicNOW. This is a free resource providing counseling, [...] was given the opportunity to ask questions. Patient/Packer Denture Name: Patient/Packer Denture Signature: Relationship to Patient: Clinician/Hospital Packer Denture Signature: Please Provide a Telephone Number Where You Can Be Reached: Is it Permissible To Leave a Message? Date: documented in this encounter Plan of Treatment Not on file documented as of this encounter Visit Diagnoses Not on filedocumented in this encounter
--- OUTSIDE RECORDS SUMMARY | 2025-07-29 11:53 | XMS_ITS | Encounter Summary ---
Author Organization [employer] ([place], [place], [place], [place]) Address [address] [place] [address] Care Team Providers Care Chef Name Role Phone Unavailable Primary Care Provider Unavailabl e Encounter Details Date Type Department Care Team (Late st Contact Info) Description 03/25/2021 Transcribed Document [facility] [place] [facility] [place] [address] ProviderChano MD [address], [place] [id number] Social History Tobacco Use Types Packs/Day Years Used Date Smoking Tobacco: Never Assessed Comments Unknown Sex and Gender Information Value Date Recorded Sex Assigned at Not on file Legal Sex Female 2:07 PM CDT Gender Identity Not on file Sexual Orientation Not on file documented as of this encounter Miscellaneous Notes * Cerner Conversion Note - Historical ProviderMD - 03/25/2021 10:51 PM CDT Patient: LUDY ANTONIO Age: 70 years Sex: Female : 1950 Associated Diagnoses: Constipation Author: GENEVA LARRY MD-EMR Basic Information Additional information: Chief Complaint from Nursing Triage Note : Chief Complaint 03/25/2021 22:32 EDT Chief Complaint Pt c/o constipation. Pt states her last good bowel movement was last week. also states temp at home was 100.1. Pt c/o feeling hot . History of Present Illness The patient presents with constipation. The onset was 1 weeks ago. The course/duration of symptoms is constant. Last bowel movement 1 week(s) ago. Character of constipation unable to defecate. The relieving factor is none. Risk factors consist of narcotic use. Associated symptoms: abdominal pain and nausea. 70-year-old female here for abdominal pain and constipation. Patient fell recently and hurt her rotator cuff. She was put on narcotic pain medication. She says since then she has been having trouble with constipation. Last bowel movement was a week ago. She has tried Linzess as well as suppositories and enemas without improvement. Reports generalized abdominal pain. Has had nausea but no vomiting. Previous appendectomy.. Review of Systems Constitutional symptoms Respiratory symptoms: No shortness of breath, no cough. Cardiovascular symptoms: No chest pain, no palpitations. Gastrointestinal symptoms: Abdominal pain, nausea, constipation, No vomiting, Genitourinary symptoms: Negative except as documented in HPI. Neurologic symptoms: Negative except as documented in HPI. Additional review of systems information: All other systems reviewed and otherwise negative. Health Status Allergies: Allergic Reactions (Selected) Severity Not Documented Aspirin- No reactions were documented. Avandia- Chf. Fenofibrate- No reactions were documented. MetFORMIN- No reactions were documented. NSAIDs- No reactions were documented. Statins- Fenofibrate and fenofibrate.. Medications: (Selected) Inpatient Medications Ordered Normal Saline Flush: 10 mL, IV Push, See Comment Prescriptions Prescribed Lidoderm 5% topical film: 2 Patch, TransDermal, Daily, 20 Package, 0 Refill(s) Metoprolol Tartrate 25 mg oral tablet: 0.5 Tab, Oral, BID, 30 Tab, 0 Refill(s) SEROquel 25 mg oral tablet: 0.25 Tab, Oral, BID, 15 Tab, 0 Refill(s) Valium 5 mg oral tablet: 1 Tab, Oral, Q6H, PRN: as needed for anxiety, 5 Tab, 0 Refill(s) gabapentin 300 mg [...] chew) Flonase 0.05 mg/inh nasal spray: 2 [place], Nasal, Daily, 16 Gram, 0 Refill(s) Lantus 100 units/mL subcutaneous solution: 25 Units, SubCutaneous, BID, 0 Refill(s) Vitamin D3: 50,000 Int Units, Oral, See Comment, friday and friday, 0 Refill(s) insulin aspart 100 units/mL injectable solution: 8 Units, SubCutaneous, TID With Meals, NEW DOSE, 0 Refill(s) loratadine 10 mg oral tablet: 1 Tab, Oral, At Bedtime, 30 Tab, 0 Refill(s). Past Medical/ Family/ Social History Surgical history: heart catheterization in 2012 at 63 Years. Comments: 06/24/2013 7:44 MIGEL GIRALDO RN negative cath left hip replacement in 2011 at 62 Years. right and left shoulder repair. achilles repair. Appendectomy ([id number]). Cholecystectomy ([id number]). Tonsillectomy ([id number]).. Family history: No family history items have been selected or recorded.. Social history: Social & Psychosocial Habits Alcohol 06/24/2013 Alcohol Use in Last Twelve Months No Employment/School 07/17/2014 Status: Retired Previous employment/school: [employer] Home/Environment 07/17/2014 Lives with: Spouse Living situation: Home with assistance Substance Abuse 06/24/2013 Recreational Drug Use History No Tobacco 06/24/2013 Tobacco Use Within Last Twelve Months Cigarettes Smoking Status Former smoker Years of Tobacco Use 1 Packs/Tins Daily 0.5 Month Tobacco Last Used teenager . Problem list: Active Problems (25) Acid reflux Allergic asthma Arthritis At risk for sleep apnea Back pain BP+ - Hypertension Cataract///beginning stage Chest pain///cath negative Colon polyps Completely occulded L carotid Congestive heart failure - due to Avandia resolved CVA (cerebral vascular accident) DM - Diabetes mellitus Dyslipidemia Fibromyalgia H/O ischemic left MCA stroke Hiatal hernia Lumbar disc disease Memory deficit///slow recall Numbness and tingling//right leg Obesity Pain//chronic Right leg pain Sleep apnea///risk Wears glasses . Physical Examination Vital Signs Vital Signs/Vital Measures 03/25/2021 22:32 EDT Systolic Blood Pressure 192 mmHg HI Diastolic Blood Pressure 86 mmHg Temperature Source Temporal artery scanning Temperature Mode Fahrenheit Temperature, Fahrenheit 97.4 Deg F Clinical Temperature, C 36.3 Deg C Peripheral Pulse Rate 91 bpm Respiratory Rate 16 Breaths/Min Oxygen Saturation 97 % Oxygen Therapy Mode Room air . Oxygen Saturation 03/25/2021 22:32 EDT Oxygen Saturation 97 % . General: Alert, no acute distress. Skin: Warm, dry, pink, intact. Head: Normocephalic, atraumatic. Neck: Supple, trachea midline. Eye: Pupils are equal, round and reactive to light, extraocular movements are intact, normal conjunctiva. Cardiovascular: Regular rate and rhythm, No murmur, Normal peripheral perfusion. Respiratory: Lungs are clear to auscultation, respirations are non-labored, breath sounds are equal, Symmetrical chest wall expansion. Gastrointestinal: Soft, Tenderness: Generalized, Guarding: Negative, Rebound: Negative. Musculoskeletal: Normal ROM, normal strength. Neurological: Alert and oriented to person, place, time, and situation, No focal neurological deficit observed, normal sensory observed, normal motor observed, normal speech observed. Psychiatric: Cooperative, appropriate mood & affect. Medical Decision Making Documents reviewed: Emergency department nurses' notes, emergency department records, prior records. Results review: Lab results : Lab Results 03/25/2021 23:59 EDT Action Taken, Urine Testing None needed 03/25/2021 23:40 EDT Urine Type. U CleanCatch Urine Color Yellow Urine Appearance Clear Urine Specific [place] 1.020 Urine pH Dipstick *8.0 Urine Leukocyte Esterase Negative Urine Nitrite Negative Urine Protein Dipstick 100 Urine Glucose Dipstick Negative Urine Ketones Dipstick Negative Urine Urobilinogen Dipstick 0.2 EU/dL Urine Bilirubin Dipstick Negative Urine Blood Dipstick Negative Ur RBC 0-2 /HPF Ur WBC None Seen /HPF Ur Bacteria Trace Ur Epithelial Cells 2-5 /HPF Urine Culture if Indicated Not Indicated 03/25/2021 23:05 EDT Sodium Level 138 mmol/L Potassium Level 4.3 mmol/L Chloride Level 104 mmol/L Carbon Dioxide Level 29 mmol/L Anion Gap 9 Glucose Level 172 mg/dL HI Blood Urea Nitrogen 37 mg/dL HI Creatinine Level 1.00 mg/dL eGFR >60 mL/min/1.73m2 eGFR NonAfrican 55 mL/min/1.73m2 LOW Bun/Creatinine 37.0 HI Calcium Level 9.4 mg/dL Protein Total 7.4 Gram/dL Albumin Level 3.4 Gram/dL Globulin 4.0 Gram/dL A/G Ratio 0.8 LOW Bilirubin Total 0.2 mg/dL Alk Phos 64 Units/Liter AST 14 Units/Liter ALT 26 Units/Liter Magnesium Level 2.5 mg/dL HI Lipase Level 106 Units/Liter WBC 14.2 K/uL HI RBC 4.61 Million/uL Hgb 13.3 g/dL Hct 40.1 % MCV 87.0 fL MCH 28.9 pg MCHC 33.2 Gram/dL Platelet Count 370 K/uL HI MPV 9.2 fL LOW RDW 13.5 % Neutrophil Percent Man 60 % Band Percent Man 2 % LOW Lymph Percent Man 34 % [place] Percent Man 3 % LOW Eos Percent Man 1 % Baso Percent Man 0 % RBC Morphology Normal Platelet Ct Estimate Increased . Radiology results: EXAM REQUESTED: [id number]--IZ ABDOMEN & PELVIS W/CONTRAST FACILITY: [facility] DATE: 03/25/2021 RADIOLOGIST NAME: MD Connelly Jonathan TECHNIQUE: null CLINICAL HISTORY: Lt side abd pain, constipation feverish. COMPARISON: null FINDINGS: Abdomen and pelvis CT with contrast: Comparison:none: Findings: The liver is borderline enlarged.. There is diffuse fatty liver infiltration. Portal vein is normal. No biliary abnormalities. Gallbladder is not visualized and presumed to be surgically absent. The spleen isnormal in size. No pancreas ductal dilatation. No hydronephrosis. There is a 5.8 cm right renal cortical cyst. No urinary tract obstruction. No renal calculi. No adenopathy. The bowel caliber is normal. No signs of appendicitis. The appendix is not visualized. No vascular abnormalities. A uterus size is normal. No adnexal masses. Left hip arthroplasty in good alignment. No suspicious skeletal lesions. IMPRESSION: Impression: Diffuse fatty liver. Very few colon diverticula. The bowel pattern is nonobstructive.. Reexamination/ Reevaluation I discussed results with patient. She has a history of hypertension and says her doctors recently decreased her antihypertensive regimen. We discussed her current hypertension. She is asymptomatic from this. Discussed CT scan and lab work. She has an area of redness to her buttocks. No cellulitis or abscess noted on CT scan. She has mild leukocytosis however she had recently been put on steroids for her rotator cuff. Will cover for antibiotics just in case there is an infection.. Discussed bowel regimen. Will prescribe suppository. Discussed following up with primary care as well as return precautions. Impression and Plan Diagnosis Constipation - Discharge, Medical Plan Condition: Improved. Disposition: Discharged Admit/Transfer/Discharge: Discharge (Order): Start: 03/26/2021 1:52 EDT, Discharge to: Home . Prescriptions: Prescription Exhaust Emissions Inspector Pharmacy: bisacodyl 10 mg rectal suppository (Prescribe): 1 Supp, Rectal, Daily, for 3 Day(s), 3 Supp, 0 Refill(s) , Prescription Exhaust Emissions Inspector Pharm[facility]: Keflex 500 mg oral capsule (Prescribe): 1 Cap, Oral, QID, for 7 Day(s), 28 Cap, 0 Refill(s) . Patient was given the following educational materials: Constipation, Adult, Hypertension, Adult. Follow up with: [facility] Within 2 to 3 days. Counseled: Patient, Family, Regarding diagnosis, Regarding diagnostic results, Regarding treatment plan, Regarding prescription, Patient indicated understanding of instructions. Electronically signed by Julian Wheeler Conversion Property Preservation Specialist Cerner at 01/23/2023 1:20 PM CDT documented in this encounter Plan of Treatment Not on file documented as of this encounter Visit Diagnoses Not on filedocumented in this encounter
--- OUTSIDE RECORDS SUMMARY | 2025-07-29 11:53 | XMS_ITS | Encounter Summary ---
Author Organization [employer] ([place], [place], [place], [place]) Address [address] [place] [address] Care Team Providers Care Assistant Director Of Public Works Name Role Phone Unavailable Primary Care Provider Unavailabl e Encounter Details Date Type Department Care Team (Late st Contact Info) Description 07/13/2019 Transcribed Document [facility] [place] [address] [place] [address] ProviderChano MD [address], [place] [phone] Social History Tobacco Use Types Packs/Day Years Used Date Smoking Tobacco: Never Assessed Comments Unknown Sex and Gender Information Value Date Recorded Sex Assigned at Not on file Legal Sex Female 2:07 PM CDT Gender Identity Not on file Sexual Orientation Not on file documented as of this encounter Miscellaneous Notes * Cerner Conversion Note - Historical ProviderMD - 07/13/2019 5:00 PM CDT Chart Check - Review Order Profile Entered On: 07/13/2019 18:47 EDT Performed On: 07/13/2019 17:00 EDT by MARGE GRIFFIN, RN Chart Check Powerplans Initiated/Discontinued as Appropriate : Yes All Active Orders Reviewed : Yes MARGE GRIFFIN, RN - 07/13/2019 18:47 EDT Electronically signed by Julian Wheeler Conversion Clinical Medical Transcriptionist Cerner at 01/23/2023 1:39 PM CDT documented in this encounter Plan of Treatment Not on file documented as of this encounter Visit Diagnoses Not on filedocumented in this encounter
--- OUTSIDE RECORDS SUMMARY | 2025-07-29 11:53 | XMS_ITS | Encounter Summary ---
Author Organization [employer] ([place], [place], [place], [place]) Address [address] [place] [address] Care Team Providers Care Grain Combiner Name Role Phone Unavailable Primary Care Provider Unavailabl e Encounter Details Date Type Department Care Team (Late st Contact Info) Description 07/14/2019 Transcribed Document [facility] [place] [address] [place] [address] ProviderChano MD [address], [place] [id number] Social History Tobacco Use Types Packs/Day Years Used Date Smoking Tobacco: Never Assessed Comments Unknown Sex and Gender Information Value Date Recorded Sex Assigned at Not on file Legal Sex Female 2:07 PM CDT Gender Identity Not on file Sexual Orientation Not on file documented as of this encounter Miscellaneous Notes * Cerner Conversion Note - Chano Gatica MD - 07/14/2019 11:50 AM CDT Patient: LUDY ANTONIO Age: 68 [...] epithelial cells. Urine culture was positive for 10???[id number] CFU/mL. CT of the L-spine was negative. [...] or confusion. ROS and hx discussed with [id number], has had ceofusion and fever last 2 [...] not avaialbe discussed with staff in room Allergies:Allergies (1) Active Reaction Avandia CHF Medications:Medications by Classification Antimicrobials cefTRIAXone (Rocephin) - 2 Gram, IV Piggyback, [id number], infuse over 30 Minute(s), Routine vancomycin + Sodium Chloride 0.9% intravenous solution 250 m - 1,500 mg, IV Piggyback, [id number], infuse over 60 Minute(s) Anticoagulant enoxaparin (Lovenox) [...] fluticasone nasal (Flonase) - 1 Puff, Nasal, [place], Daily, Routine Pain Meds morphine - 2 [...] Last Charted Minimum Maximum Temp 97.9 (JUL 14 10:40) 97.9 (JUL 14 10:40) 98.1 (JUL 14 02:00) Apical HR 74 (JUL 14 11:21) 74 (JUL 14 11:21) 80 (JUL 13:09) Mon HR 85 (JUL 14 10:40) 64 (JUL 14 05:19) 86 (JUL 13 18:40) Resp Rate 18 (JUL 14 10:40) 14 (JUL 13 21:07) 18 (JUL 14 10:40) SBP H 186 (JUL 14 10:40) H 150 (JUL 14 04:04) H 186 (JUL 13:07) DBP 82 (JUL 14 10:40) 72 (JUL 13 18:40) H 111 (JUL 13:07) MAP 101 (JUL 14 10:40) 92 (JUL 14:19) 126 (JUL 13:07) SpO2 98 (JUL 14 10:40) 94 (JUL 14 04:04) 99 (JUL 13:07) Exam: Gen: Alert, not cooperative, confused HEENT: sclera [place] NECK: Supple, no masses LYMPH: No lymphadenopathy in cervical, supraclavicular, axillary, or inguinal lymph nodes RESP: CTA bilaterally without rhonchi, rales, or wheezes. Nonlabored breathing CV: RRR, no murmurs, gallops, or rubs. No edema GI: soft, nontender, nondistended, : No garcia in place MS: no new issues, no rash SKIN: No lesions NEURO: more interactive PSYCH: anxious Labs:Labs (Last four charted values) WBC 8.4 (JUL 12) 8.2 (OCT 06) 7.9 (JUL 09) 9.1 (JUL 03) HB 11.5 (OCT 07) 11.5 (OCT 06) 12.6 (OCT 04) 12.0 (JUL 03) HCT 35.7 (JUL 07) 35.6 (OCT 06) 39.8 (JUL 04) 37.3 (JUL 03) Plt 263 (JUL 12) 230 (JUL 06) 267 (JUL 04) 268 (JUL 03) Na 142 (JUL 07) 140 (JUL 06) 142 (JUL 09) 141 (JUL 03) K 3.8 (JUL 12) 4.2 (JUL 11) 4.4 (JUL 09) 3.9 (JUL 08) Cl 104 (JUL 07) 104 (OCT 06) 106 (JUL 09) 105 (JUL 03) CO2 31 (JUL 12) 31 (JUL 11) 27 (JUL 09) 30 (JUL 08) BUN 14 (JUL 12) 14 (JUL 11) 19 (JUL 09) 20 (JUL 03) Cr 0.90 (JUL 07) 0.90 (JUL 06) H 1.10 (JUL 09) 1.00 (JUL 08) Glu R H 202 (JUL 12) H 248 (JUL 06) H 207 (JUL 09) H 153 (JUL 08) Ca 9.0 (OCT 07) 9.0 (OCT 06) 9.4 (OCT 04) 9.7 (JUL 03) PT 9.9 (JUL 09) 10.1 (JUL 08) INR 0.9 (JUL 09) 0.9 (JUL 08) PTT 28.0 (JUL 08) AST 18 (JUL 12) 16 (JUL 09) 17 (JUL 03) ALT 25 (JUL 07) 23 (JUL 09) 21 (JUL 03) ALK P 56 (JUL 12) 69 (JUL 09) 63 (JUL 03) T Bili 0.3 (JUL 07) 0.3 (JUL 09) 0.4 (JUL 08) PTN 6.7 (OCT 07) 7.1 (OCT 04) 7.0 (OCT 03) ALB L 2.8 (JUL 07) L 3.1 (JUL 09) L 3.2 (JUL [...] results but family say it is normal check some esoteric labs - sprue screen negative Doubt her mental status issues from infection? Looks about the same continue antibiotics for now documented in this encounter Plan of Treatment Not on file documented as of this encounter Visit Diagnoses Not on filedocumented in this encounter
--- OUTSIDE RECORDS SUMMARY | 2025-07-29 11:53 | XMS_ITS | Encounter Summary ---
Author Organization [employer] ([place], [place], [place], [place]) Address [address] [place] [address] Care Team Providers Care Sales And Management Trainee Name Role Phone Unavailable Primary Care Provider Unavailabl e Encounter Details Date Type Department Care Team (Late st Contact Info) Description 10/05/2019 Transcribed Document [facility] [place] [address] [place] [address] ProviderChano MD [address], [place] [phone] Social History Tobacco Use Types Packs/Day Years Used Date Smoking Tobacco: Never Assessed Comments Unknown Sex and Gender Information Value Date Recorded Sex Assigned at Not on file Legal Sex Female 2:07 PM CDT Gender Identity Not on file Sexual Orientation Not on file documented as of this encounter Miscellaneous Notes * Cerner Conversion Note - Chano ProviderMD - 10/05/2019 6:04 PM STAFF EDUCATOR ED Assessment Entered On: 10/05/2019 20:58 EST Performed On: 10/05/2019 20:42 EST by SRINIVAS RODRIGES RN-[place] ED Quick Look Assessment Level of Consciousness : Alert, Awake Affect/Behavior : Anxious Orientation : Oriented x 4 Skin Temperature : Warm SRINIVAS RODRIGES RN-Resource - 10/05/2019 20:42 EST ED General-Functional Assess Information Obtained From : Patient, Significant other Preferred Communication Mode : Verbal Communication Barrier : None Primary Language : [place] Any Spiritual/Cultural Needs or Requests : No Currently in Unsafe Situation : No SRINIVAS RODRIGES RN-Resource - 10/05/2019 20:42 EST Social Habits Smoking Status : Former smoker, quit more than 30 days ago Smokeless Tobacco Status : Never Desires Tobacco Cessation Calc : 0 SRINIVAS RODRIGES RN-Resource - 10/05/2019 20:42 EST Social History (As Of: 10/05/2019 20:58:56 EST) Tobacco: Use in Last 12 Months: Cigarettes. Smoking Status Former smoker. Years of Use: 1. Packs/Tins Daily: 0.5. Last Used: teenager. (Last Updated: 06/24/2013 07:28:56 EDT by MIGEL GARCIA, RN) Alcohol: Use in Last 12 Months: No. (Last Updated: 06/24/2013 07:29:08 EDT by MIGEL GARCIA, RN) Substance Abuse: Drug Use Hx: No. (Last Updated: 06/24/2013 07:29:03 EDT by MIGEL GARCIA, EDISON) Home/Environment: Lives with Spouse. Living situation: Home with assistance. 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 (Last Updated: 07/17/2014 00:15:13 EDT by KATIE TRINIDAD, REINA Nurse) EENT Assessment EENT Assessment WDL : WDL SRINIVAS RODRIGES RN-Resource - 10/05/2019 20:42 EST Cardiovascular ASMT, ED Cardiovascular Assessment WDL : WD with exceptions Cardiovascular Symptoms : Chest discomfort at rest Nail Bed Color : [place] Chest Pain : Yes SRINIVAS RODRIGES RN-Resource - 10/05/2019 20:42 EST Pulses Grid Posterior Tibial Pulse, Left : 2+ normal Posterior Tibial Pulse, Right : 2+ normal Radial Pulse, Left : 2+ normal Radial Pulse, Right : 2+ normal SRINIVAS RODRIGES RN-Resource - 10/05/2019 20:42 EST Respiratory Respiratory Assessment WDL : WD Cough : None SRINIVAS RODRIGES RN-Resource - 10/05/2019 20:42 EST Breath Sounds Assessment Grid All Lobes Breath Sounds : Clear SRINIVAS RODRIGES RN-Resource - 10/05/2019 20:42 EST Respiratory Pattern Description : Regular SRINIVAS RODRIGES RN-Resource - 10/05/2019 20:42 EST Oxygen Therapy Oxygen Therapy Mode : Room air SRINIVAS RODRIGES RN-Resource - 10/05/2019 20:42 EST Gastrointestinal ED Gastrointestinal Assessment WDL : WD SRINIVAS RODRIGES RN-Resource - 10/05/2019 20:42 EST Genitourinary Assessment, ED Genitourinary Assessment WDL : [facility] with exceptions Genitourinary Symptoms : Burning with urination SRINIVAS RODRIGES RN-Resource - 10/05/2019 20:42 EST Musculoskeletal Musculoskeletal Assessment WDL : [facility] SRINIVAS RODRIGES RN-Resource - 10/05/2019 20:42 EST Integumentary Assessment Skin Temperature : Warm Integumentary Assessment WDL : [facility] SRINIVAS RODRIGES RN-Resource - 10/05/2019 20:42 EST Pain Assessment Pain Assessment : Initial assessment Pain Scale Used : 0-10 Scale Location : Back SRINIVAS RODRIGES RN-Resource - 10/05/2019 20:42 EST Pain Scale Intensity : 7 SRINIVAS RODRIGES RN-Resource - 10/05/2019 20:42 EST Image 4 - Images currently included in the form version of this document have not been included in the text rendition version of the form. documented in this encounter Plan of Treatment Not on file documented as of this encounter Visit Diagnoses Not on filedocumented in this encounter
--- OUTSIDE RECORDS SUMMARY | 2025-07-29 11:53 | XMS_ITS | Encounter Summary ---
Author Organization [employer] ([place], [place], [place], [place]) Address [address] [place] [address] Care Team Providers Care Artist Color Separation Name Role Phone Unavailable Primary Care Provider Unavailabl e Encounter Details Date Type Department Care Team (Late st Contact Info) Description 07/14/2019 Transcribed Document [facility] [place] [facility] [place] [address] ProviderChano MD [address] [place], [place] [phone] Social History Tobacco Use Types Packs/Day Years Used Date Smoking Tobacco: Never Assessed Comments Unknown Sex and Gender Information Value Date Recorded Sex Assigned at Not on file Legal Sex Female 2:07 PM CDT Gender Identity Not on file Sexual Orientation Not on file documented as of this encounter Miscellaneous Notes * Cerner Conversion Note - Chano ProviderMD - 07/14/2019 8:40 AM CDT Patient: LUDY ANTONIO Age: 68 Years Sex: Female : 1950 Subjective Confused and agitated last night. She is unsure if right leg pain better. Vital Signs T: 36.6 ??C TMIN: 36.6 ??C TMAX: 36.7 ??C HR: 64(Monitored) RR: 14 BP: 183/75 SpO2: 94% Oxygen Settings (Last) Oxygen Therapy Mode: Room air (07/14/19 05:19:00) Oxygen Flow Rate: 1 Liter/Min (07/10/19 10:43:00) Intake & Output Totals Last 24 Hours (7a-7a) Input Total: 1020.2 mL Output Total: 0 mL Balance: 1020.2 mL Physical Exam a/a/o, agitated maew dressing dry Assessment/Plan POD#5 redo right L3-4 minimally invasive surgery microdiscectomy with Dr. Lucas with continued confusion and agitation at times broad spectrum abx per ID: cultures negative thus far psych saw yesterday- Haldol and Depakote she is unsure if back and leg pain have improved VTE Prophylaxis - Medical Enoxaparin 40 mg, SubCutaneous, Inj, Daily, Routine, Start 07/11/19 11:57:00 EDT (PJ, JACINTO THOMPSON) Sequential Compression Device Start: 07/08/19 22:19:00 EDT, [...] mg= 0.4 mL, SubCutaneous, Daily metoprolol tartrate, 6.25 mg= 0.25 Tab, Oral, At Bedtime MiraLax, 17 Gram= 1 Packet, Oral, Daily, PRN morphine, 2 mg= 1 mL, IV Push, Q2H, PRN oxyCODONE, 10 mg= 2 Tab, Oral, Q6H, PRN Rocephin SEROquel, 6.25 mg= 0.25 Tab, Oral, BID Tylenol, 650 mg= 2 Tab, Oral, Q4H, PRN Valium, 5 mg= 1 Tab, Oral, Q6H, PRN vancomycin + Sodium Chloride 0.9% intravenous solution 250 mL Zofran, 4 mg= 2 mL, IV Push, Q4H, PRN Lab Results Test Name Test Result Date/Time Device Comment 1 Notified Nurse RBV 07/14/2019 06:13 EDT Device Comment 1 Notified Nurse RBV 07/13/2019 21:10 EDT Device Comment 1 Notified Nurse RBV 07/13/2019 17:06 EDT Glucose POC2 203 mg/dL (High) 07/14/2019 06:13 EDT Glucose POC2 311 mg/dL (High) 07/13/2019 21:10 EDT Glucose POC2 301 mg/dL (High) 07/13/2019 17:06 EDT documented in this encounter Plan of Treatment Not on file documented as of this encounter Visit Diagnoses Not on filedocumented in this encounter
--- OUTSIDE RECORDS SUMMARY | 2025-07-29 11:53 | XMS_ITS | Encounter Summary ---
Author Organization [employer] ([place], [place], [place], [place]) Address [address] [place] [address] Care Team Providers Care Making Department Preparer Name Role Phone Unavailable Primary Care Provider Unavailabl e Encounter Details Date Type Department Care Team (Late st Contact Info) Description 07/14/2019 Transcribed Document [facility] Family Medicine [facility] [place] [address] ProviderChano MD [address], [place] [id number] Social History Tobacco Use Types Packs/Day Years Used Date Smoking Tobacco: Never Assessed Comments Unknown Sex and Gender Information Value Date Recorded Sex Assigned at Not on file Legal Sex Female 2:07 PM CDT Gender Identity Not on file Sexual Orientation Not on file documented as of this encounter Miscellaneous Notes * Cerner Conversion Note - Historical ProviderMD - 07/14/2019 5:32 AM CDT Event Note Entered On: 07/14/2019 5:45 EDT Performed On: 07/14/2019 5:32 EDT by Angelica Michel Rn-Flex Team Event Note Event Date/Time : 07/13/2019 21:00 EDT Event Location : Assigned room Event Details : Nursing assessment additional narrative Description of Event : hide and skin colerer left at 1900. 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 A little after 1999 RN paged to patient's room. Pt on the phone with 911 dispatch for police dept. Pt crying and anxious saying she is trapped in her room and doesn't know how to turn the TV off or the lights on. States upset that no one is in her room with her. RN paged to different room. Returned to pt room 15 mins later pt on phone with her brother stating we won't let her go to the bathroom. Offered assistance up to bedside commode, pt states no she doesn't want us to touch her and she'd rather pee in the floor. Pt upset that she spilled her drink on the bedside table. RN came to room with charge operator to assist to bathroom and pt refused. Pt continues to be talking to different people on cell phone saying she's being neglected, but refusing all attempts for care. Refused meds and vital signs. RN returned to room with 2 nursing assistants and able to convince pt to allow us to help her to bedside commode and to allow for VS and night time medications to be administered. Pt continues to be combative and hostile towards staff. Goes from crying to yelling to cooperative. Pt talking in cirlcles and repeating different random pieces of information. Administered PRN medications per Angelica Atkins Rn-Flex Team - 07/14/2019 5:32 EDT documented in this encounter Plan of Treatment Not on file documented as of this encounter Visit Diagnoses Not on filedocumented in this encounter
--- OUTSIDE RECORDS SUMMARY | 2025-07-29 11:53 | XMS_ITS | Encounter Summary ---
Author Organization [employer] ([place], [place], [place], [place]) Address [address] [place] [address] Care Team Providers Care Cabinet Abrasive Sandblaster Name Role Phone Unavailable Primary Care Provider Unavailabl e Encounter Details Date Type Department Care Team (Late st Contact Info) Description 03/25/2021 Transcribed Document [facility] [place] [address] [place] [address] ProviderChano MD [address], [place] [id number] Social History Tobacco Use Types Packs/Day Years Used Date Smoking Tobacco: Never Assessed Comments Unknown Sex and Gender Information Value Date Recorded Sex Assigned at Not on file Legal Sex Female 2:07 PM CDT Gender Identity Not on file Sexual Orientation Not on file documented as of this encounter Miscellaneous Notes * Cerner Conversion Note - Historical ProviderMD - 03/25/2021 10:24 PM CDT ED Assessment Entered On: 03/25/2021 23:05 EDT Performed On: 03/25/2021 23:05 EDT by MIGEL ANDREW Rn ED Quick Look Assessment Level of Consciousness : Alert, Awake Affect/Behavior : Appropriate, Calm, Cooperative Orientation : Oriented x 4 Skin Temperature : Warm Skin Description : Dry MIGEL ANDREW Rn - 03/25/2021 23:05 EDT ED General-Functional Assess Preferred Communication Mode : Verbal Communication Barrier : None Primary Language : [place] Verdean Any Spiritual/Cultural Needs or Requests : No Currently in Unsafe Situation : No MIGEL ANDREW Rn - 03/25/2021 23:05 EDT Social Habits Smoking Status : Former smoker, quit more than 30 days ago Smokeless Tobacco Status : Never Desires Tobacco Cessation Calc : 0 MIGEL ANDREW Rn - 03/25/2021 23:05 EDT Social History (As Of: 03/25/2021 23:05:49 EDT) Tobacco: Use in Last 12 Months: [...] TRINIDAD, ED Nurse) 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 (Last Updated: 07/17/2014 00:15:13 EDT by KATIE TRINIDAD, ED Nurse) Electronically signed by Julian Wheeler Conversion Transportation Refrigeration Technician Cerner at 01/23/2023 1:27 PM CDT documented in this encounter Plan of Treatment Not on file documented as of this encounter Visit Diagnoses Not on filedocumented in this encounter
--- OUTSIDE RECORDS SUMMARY | 2025-07-29 11:53 | XMS_ITS | Encounter Summary ---
Author Organization [employer] ([place], [place], [place], [place]) Address [address] [place] [address] Care Team Providers Care Development Associate Name Role Phone Unavailable Primary Care Provider Unavailabl e Encounter Details Date Type Department Care Team (Late st Contact Info) Description 07/14/2019 Transcribed Document [facility] [place] [address] [place] [address] ProviderChano MD [address], [place] [id number] Social History Tobacco Use Types Packs/Day Years Used Date Smoking Tobacco: Never Assessed Comments Unknown Sex and Gender Information Value Date Recorded Sex Assigned at Not on file Legal Sex Female 2:07 PM CDT Gender Identity Not on file Sexual Orientation Not on file documented as of this encounter Miscellaneous Notes * Cerner Conversion Note - Chano Gatica MD - 07/14/2019 1:32 PM CDT On Going Discharge Planning Entered On: 07/14/2019 13:36 EDT Performed On: 07/14/2019 13:32 EDT by HORACIO ACHARYA RN-Car DumperBit Gatherer Progress Note Discharge Arrangements : Patient Post-Acute Information Patient Name: LUDY ANTONIO Gender: Female : [birth year] Age: 68 Years No Post-Acute Placement(s) Listed No Post-Acute Service(s) Listed No Curaspan Referral(s) Listed Barriers to Discharge Identified : Clinical Condition of Patient Barriers to Discharge Unresolved : Clinical Condition of Patient Referral Indicators For Complex SWK Interventions : Behavorial or psychiatric issues Is the Patient Meeting Medical Necessity : Yes HORACIO ACHARYA RN-Car Dumper - 07/14/2019 13:32 EDT Narrative Progress Note Narrative Progress Note : Spoke to pt's spouse Kian on the phone today. 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 and [employer]. He states he does not want her going to those places as she kows people there. He agrees to referrals to [facility] and [facility] inpatient psych units. Referral sent and spoke to JUSTA Perez at [facility] and Royce RN at [facility]. CM will continue to follow. Historical Progress Note : Dr. Valdez consult this am--pt not able [...] CM will continue to follow. HORACIO ACHARYA RN-Car Dumper - 07/13/19 17:41:20 psych consult referral faxed to Dr. Valdez's office to assess for psychosis. SANJIV VOGT RN-Car Dumper - 07/11/19 16:14:26 HORACIO ACHARYA RN-Car Dumper - 07/14/2019 13:32 EDT documented in this encounter Plan of Treatment Not on file documented as of this encounter Visit Diagnoses Not on filedocumented in this encounter
--- OUTSIDE RECORDS SUMMARY | 2025-07-29 11:53 | XMS_ITS | Clinical Summary ---
Author Organization [facility] Address [address] [place] [address] Care Team Providers Care Cartridge Filler Name Role Phone Mumtaz Colon MD Primary Care Provider [phone] Allergies Active Allergy Reactions Criticality Noted Date Comments Fenofibrate Other - please docum ent in the comment field Low 09/05/2011 Myalgia Metformin Nausea,Other - pleas e document in the comment field Low 09/05/2011 Nausea and Abdominal Pain Nsaids Other - please docum ent in the comment field Low 01/09/2015 Bleeding stomach ulcers, GI distress Rosiglitazone Swelling High 09/05/2011 Statins Other - please docum ent in the comment field Low 09/05/2011 Myalgia Medications * This document contains information received from the source organization and may not represent a complete record from that organization. RABEprazole (Aciphex) 20 MG EC tablet Take 1 tablet (20 mg) by mouth 2 (two) times a day. Do not crush, chew, or split. Active clopidogrel (Plavix) 75 MG tablet Take 1 tablet (75 mg) by mouth 1 (one) time each day in the morning. Active omega-3 acid ethyl esters (Lovaza) 1 g capsule Take 2 capsules (2 g) by mouth 2 (two) times a day. Active Multiple Vitamins-Minerals (CENTRUM SILVER PO) Take 1 tablet by mouth 1 (one) time each day. Active loratadine (Claritin) 10 MG tablet Take 1 tablet (10 mg) by mouth every night. Active fluticasone (Flonase) 50 MCG/ACT nasal spray Administer 2 sprays into each nostril 1 (one) time each day in the morning. Shake gently. Before first use, prime pump. After use, clean tip and replace cap. Active naloxone (Narcan) 4 mg/0.1 mL nasal spray 1. Give 1 spray in nostril for no/slow breathing or cannot wake after opioid use 2. Call 911 3. Repeat in other nostril if symptoms continue 1 each 4 Active bisacodyl (Dulcolax) 5 MG EC tablet Take 1 tablet (5 mg) by mouth 1 (one) time each day. Do not crush, chew, or split. 4 Active lisinopril 40 MG tablet Take 1 tablet (40 mg) by mouth 1 (one) time each day. 4 Active acetaminophen (Tylenol) 500 MG tablet Take 2 tablets (1,000 mg) by mouth every 6 (six) hours. 4 Active DULoxetine (Cymbalta) [address] capsule Take 1 capsule (60 mg) by mouth 2 (two) times a day. Do not crush or chew. 4 Active isosorbide mononitrate ER (Imdur) 60 MG 24 hr tablet Take 1 tablet (60 mg) by mouth 1 (one) time each day. Do not crush or chew. Active mirabegron ER (Myrbetriq) 25 MG tablet Take 1 tablet (25 mg) by mouth 1 (one) time each day. Active polyethylene glycol (Miralax) 17 g packet Take 17 g by mouth 2 (two) times a day. Active naloxegol oxalate (Movantik) 25 MG tablet Take 25 mg by mouth 1 (one) time each day in the morning. Active senna-docusate (Shelby-Colace) 8.6-50 MG tablet Take 1 tablet by mouth 1 (one) time each day if needed for constipation. Active simethicone (Mylicon) 80 MG chewable tablet Chew 1 tablet (80 mg) every 6 (six) hours if needed for flatulence. Active insulin lispro (Admelog, HumaLOG) 100 UNIT/ML injection pen Inject under the skin every 6 (six) hours if needed for high blood sugar (with fingersticks). Add a correction scale dose as follows: blood sugar 61-100 use o unit, 101-150 use 3 units, 151-200 use 4 units, 201-250 use 5 units, 251-300 use 9 units, 301-350 use 12 units, 351-400 use 15 units. Notify MD if over 401. Active Lidocaine (HM Lidocaine Patch) 4 % patch Apply 1 patch topically 1 (one) time each day if needed (lower back pain). Active insulin aspart (NovoLOG) 100 UNIT/ML injection vial Inject 11 Units under the skin 4 (four) times a day (before meals and nightly). Active carvedilol (Coreg) 6.25 MG tablet Take 1 tablet (6.25 mg) by mouth 2 (two) times a day. 5 Active insulin glargine-yfgn 100 UNIT/ML injection vial Inject 0.4 mL (40 Units) under the skin every night. 5 Active NIFEdipine XL (Adalat CC) 60 MG 24 hr tablet Take 2 tablets (120 mg) by mouth 1 (one) time each day. Do not crush, chew, or split. 5 Active oxyCODONE (Roxicodone) 5 MG immediate release tabletIndications: Chronic Pain Take 1 tablet (5 mg) by mouth every 6 (six) hours if needed for severe pain. 12 tablet 5 Active chlorthalidone (Hygroton) 25 MG tablet Take 1 tablet (25 mg) by mouth 1 (one) time each day. 5 Active gabapentin (Neurontin) 300 MG capsule Take 1 capsule (300 mg) by mouth every night. 3 capsule 5 Active hydrOXYzine pamoate (Vistaril) 25 MG capsule Take 1 capsule (25 mg) by mouth every 6 (six) hours if needed for anxiety. 5 Active metoclopramide (Reglan) 5 MG tablet Take 1 tablet (5 mg) by mouth 3 (three) times a day before meals. 5 Active ondansetron ODT (Zofran-ODT) 8 MG disintegrating tablet Take 1 tablet (8 mg) by mouth 2 (two) times a day. 5 Active prochlorperazine (Compazine) 5 MG tablet Take 1 tablet (5 mg) by mouth every 6 hours as needed for nausea or vomiting. 30 tablet 5 Active Active Problems Problem Noted Date Diagnosed Date Epigastric pain 10/21/2024 Pain of upper abdomen 10/21/2024 Chronic right-sided low back pain with right-reba ed sciatica 05/25/2024 Morbid obesity with body mass index (BMI) of 40. 0 or higher 11/29/2022 Essential hypertension 05/15/2022 T2DM (type 2 diabetes mellitus) 05/15/2022 HLD (hyperlipidemia) 05/15/2022 Weakness of left upper extremity 05/15/2022 Fibromyalgia 05/15/2022 Arthritis 05/15/2022 Asthma 05/15/2022 GERD (gastroesophageal reflux disease) Vitamin D deficiency 05/15/2022 Cerebellar stroke, acute 05/14/2022 Weakness of left lower extremity Chronic constipation Chronic pain syndrome Resolved Problems Problem Noted Date Diagnosed Date Resolved Date Fall 06/03/2024 06/17/2024 Fall, initial encounter 06/03/202406/06 Acute pain 06/02/2024 06/17/2024 Debility 09/13/2022 06/26/2025 COVID-19 06/26/2025 Immunizations Immunization Administration Dates Next Due Hep A, Adult 07/27/2018 Influenza, high-dose, quadrivalent 07/27/2018 Rsvpref, Recombinant, Protein Subunit, Adjuvent 10/21/2023 TD (adult), 2 Lf tetanus tox oid, preservative free, adsorbed 12/13/1996 Zoster, Recombinant 10/21/2023 Family History Medical History Relation Name Comments Heart attack Mother Relation Name Status Comments Mother Social History Tobacco Use Types Packs/Day Years Used Date Smoking Tobacco: Former Cigarettes Q uit: 1972 Smokeless Tobacco: Never Tobacco Cessation:Counseling Given: Not Answered Alcohol Use Standard Drinks/Week Comments Not Currently 0 (1 standard drink = 0.6 oz pur e alcohol) Humiliation, Afraid, Rape, and Kick questionnair e Answer Date Recorded Within the last year, have y ou been afraid of your partner or ex-partner? No 10/26/2024 Within the last year, have y ou been humiliated or emotionally abused in other ways by your partner or ex-partner? No Within the last year, have y ou been kicked, hit, slapped, or otherwise physically hurt by your partner or ex-partner? No 10/26/2024 Within the last year, have y ou been raped or forced to have any kind of sexual activity by your partner or ex-partner? No 10/26/2024 Social Connection and Isolation Panel Answer Date Recorded Frequency of Communication with Friends and Fami ly Not on file 05/25/2024 Frequency of Social Gatherings with Friends and Family Not on file 05/25/2024 Attends Amish Services Not on file 05/25 Active Member of Clubs or Organizations Not on f ile 05/25/2024 Attends Club or Organization Meetings Not on kristin e 05/25/2024 Are you , , di vorced, , never , or living with a partner? 05/25/2024 [facility]ational Stress Questionnaire Answer Date Recorded Do you feel stress - tense, restless, nervous, or anxious, or unable to sleep at night because your mind is troubled all the time - these days? To some extent 05/25/2024 Exercise Vital Sign Answer Date Recorde d On average, how many days pe r week do you engage in moderate to strenuous exercise (like a brisk walk)? 0 days 05/25/2024 On average, how many minutes do you engage in exercise at this level? 0 min 05/25/2024 Hunger Vital Sign Answer Date Recorded Within the past 12 months, y ou worried that your food would run out before you got the money to buy more. Never true 10/26/19 25 Within the past 12 months, t he food you bought just didn't last and you didn't have money to get more. Never true 10/26/2024 PRAPARE - Transportation Answer Date Re corded In the past 12 months, has l ack of transportation kept you from medical appointments or from getting medications? No 10/07 In the past 12 months, has l ack of transportation kept you from meetings, work, or from getting things needed for daily living? No 10/26/2024 Housing Stability Vital Sign Answer Matt e Recorded In the last 12 months, was t here a time when you were not able to pay the mortgage or rent on time? No 06/04/2024 In the last 12 months, how many places have you lived? 1 06/04/2024 In the last 12 months, was t here a time when you did not have a steady place to sleep or slept in a snf (including now)? No 06/04/2024 Housing Stability Vital Sign Answer Matt e Recorded In the last 12 months, was t here a time when you were not able to pay the mortgage or rent on time? No 10/26/2024 In the past 12 months, how m any times have you moved where you were living? 1 10/26/2024 At any time in the past 12 m [facility], were you homeless or living in a snf (including now)? No 10/26/2024 CAGE ASSESSMENT Answer Date Recorded Cage unable to access Not on file 05/26/2024 Cage max number of drinks Not on file 2023 Cage Beverages a week Not on file 05/26/2024 Have you ever felt you should CUT down on your d rinking? 0 05/26/2024 Have you been ANNOYED by people criticizing your drinking? 0 05/26/2024 Have you felt GUILTY about your drinking? 0 05/26/2024 Have you had a drink first t angela in the morning (E[employer]IVERS) to steady your nerves or to get rid of a hangover? 0 05/26/2024 CAGE Questionnaire Score 0 024 Utilities Answer Date Recorded In the past 12 months has th e electric, gas, oil, or water company threatened to shut off services in your home? No 10/26/2024 Comments No Sex and Gender Information Value Date Recorded Sex Assigned at Not on file Legal Sex Female 7:26 PM EDT Gender Identity Not on file Sexual Orientation Not on file Last Filed Vital Signs Vital Sign Reading Time Taken Comments Blood Pressure 109/66 12/06/2024 2:05 AM EST Pulse 67 12/06/2024 2:05 AM EST Temperature 36.9 C (98.4 F) 12/05/2024 8:21 PM EST Respiratory Rate 18 12/06/2024 2:05 AM EST Oxygen Saturation 97% 12/06/2024 2:05 AM EST Inhaled Oxygen Concentration - - Weight 128 kg (281 lb 12 oz) 12/05/2024 8:21 PM EST Height 165.1 cm (5' 5 ) 12/05/2024 8:21 PM EST Body Mass Index 46.89 12/05/2024 8:21 PM EST Plan of Treatment Health Maintenance Due Date Last Done Comments [facility]-Bone Density Scan 1949 [facility]-Depression Screening 1950 [facility]-Medicare Annual Wellness (AWV) 1950 [facility]-Infant/Child/Adol SDOH Screenings 1949 Diabetes: Dental Exam 1959 [facility]-Pneumococcal Vaccine: 50+ Years (1 of 2 - PCV) 1968 CT Colonography 1994 Colonoscopy 1994 FIT-DNA 1994 FIT 1994 FOBT 1994 Sigmoidoscopy 1994 [facility]-Colorectal Cancer Screening 1994 [facility]-DTaP,Tdap,and Td Vaccines (1 - Tdap) 12/14/1996 12/13/1996 [facility]-Zoster Vaccines (2 of 2) 12/16/2023 10/21/2023 [facility]-Diabetes: Hemoglobin A1C 01/20/2025, 05/14/2022, 08/04/2019 [facility]- SDOH Screenings 04/25/2025 [facility]-Adult SDOH Screenings 04/25/2025 10/26/2024 [id number] Vaccine (4 - 2024- season) 2025 09/24/2021, 11/29/2020, 11/04/2020 [facility]-Influenza Vaccine (#1) 2025 07/07/2024, [facility]-Hepatitis A Vaccines Aged Out 07/27/2018 No longer eligible based on patient's age to complete this topic [facility]-RSV Vaccine: 60+ Years or Completed 10/21/2023 [facility]-Hepatitis C Screening Completed 2023, 05/14/2022, 08/03/2019 [facility]-Obesity Intervention Completed 025, 06/01/2024, 05/24/2024, Additional history exists HPV Vaccines Aged Out No longer eligi ble based on patient's age to complete this topic [facility]-HIB Vaccines Aged Out No longer e ligible based on patient's age to complete this topic [facility]-IPV Vaccines Aged Out No longer e ligible based on patient's age to complete this topic [facility]-Rotavirus Vaccines Aged Out No lo nger eligible based on patient's age to complete this topic Procedures Procedure Name Priority Date/Time Associated Diagnosis Comments HEMOGLOBIN A1C Routine 10/21/2024 9:55 PM EST HEPATITIS C ANTIBODY - ED W/REFLEX TO HCV QUANT PCR STAT 06/01/2024 9:33 PM EDT from Last 3 Months or Most Recently Relevant to Health Maintenance Results * (ABNORMAL) Hemoglobin A1c (10/21/2024 9:55 PM EST) Hemoglobin A1c 9.2(H) <5.7 % 10/21/2024 11:35 PM EST [facility] Blood Venous blood specimen / Unknown Venipuncture / Unknown 10/21/2024 9:55 PM EST 10/21/2024 10:08 PM EST Narrative [facility] - 10/21/2024 11:35 PM EST HA1C Interpretive Data: Diagnosis of Diabetes: Diabetic > or = 6.5% Pre-diabetic 5.7 to 6.4% Non-diabetic < or = 5.6% Glycemic Targets for Type I and Type II Diabetics: Non- Adults <7.0% Adults <6.0% Children and Adolescents <7.5% Source: [place] [employer]. Standards of medical care in diabetes,2017. Diabetes Care.2017:40 (suppl 1):S1-S135. HbA1c assay performed by an ion-exchange chromatography method that is certified traceable to the DCCT. us Rubin Graham CNC SERVICE ENGINEER, DNP LAB BLOOD ORDERABLES Fin al Result [facility] [address] [place] [address] * Hepatitis C Antibody - ED (06/01/2024 9:33 PM EDT) Hepatitis C Antibody Negative Negative 06/01/2024 10:45 PM EDT [facility] Blood Venous blood specimen / Unknown Venipuncture / Unknown 06/01/2024 9:33 PM EDT 06/01/2024 9:50 [address] us [address] MD LAB BLOOD ORDERABLES Final R esult [facility] [address] [place] [address] from Last 3 Months or Most Recently Relevant to Health Maintenance Insurance [facility] UHC MEDICARE Advance Directives * Full Code (Latest Code Status on File) Date Activated Date Inactivated Comments 10/21/2024 9:39 PM 11/02/2024 7:33 PM Question Answer Comments Patient has decision-making capacity? Yes * Full Code Date Activated Date Inactivated Comments 06/02/2024 3:29 AM 06/17/2024 7:46 PM Question Answer Comments Patient has decision-making capacity? Yes * Full Code Date Activated Date Inactivated Comments 05/25/2024 12:57 AM 06/01/2024 7:15 PM Question Answer Comments Patient has decision-making capacity? Yes * Full Code Date Activated Date Inactivated Comments 09/13/2022 3:26 PM 09/17/2022 8:31 PM Question Answer Comments Patient has decision-making capacity? Yes Care Teams Cartridge Filler Relationship Specialty Start Date End Date Mumtaz Colon MD [address] [place] [address] PCP - General Internal Medicine 09/13/22
--- OUTSIDE RECORDS SUMMARY | 2025-07-29 11:53 | XMS_ITS | Encounter Summary ---
Author Organization [employer] ([place], [place], [place], [place]) Address [address] [place] [address] Care Team Providers Care Recreational Resort Manager Name Role Phone Unavailable Primary Care Provider Unavailabl e Encounter Details Date Type Department Care Team (Late st Contact Info) Description 07/14/2019 Transcribed Document [facility] [place] [address] [place] [address] ProviderChano MD [address], [place] [id number] Social History Tobacco Use Types Packs/Day Years Used Date Smoking Tobacco: Never Assessed Comments Unknown Sex and Gender Information Value Date Recorded Sex Assigned at Not on file Legal Sex Female 2:07 PM CDT Gender Identity Not on file Sexual Orientation Not on file documented as of this encounter Miscellaneous Notes * Cerner Conversion Note - Chano Gatica MD - 07/14/2019 10:09 AM CDT Patient: LUDY ANTONIO Age: 68 [...] of head showed old CVA we added stephaniemuna saw her today in am at 8:20 AM and with sitter still confusion but better said her BP is high and siad she called nurse last night and seems no bobody response her but today she has sitter ROS: no fever, no cp or sob, [...] PRN: Constipation Norvasc: 5 mg, Oral, BID Rocephin: 2 Gram, 100 mL/Hr, IV Piggyback, [id number] SEROquel: 12.5 mg, Oral, BID SEROquel: 6.25 mg, Oral, 1-Time Tylenol: 650 mg, Oral, Q4H, PRN: Pain [...] mg, Oral, Q6H, PRN: Pain (Moderate 4-6) vancomycin + Sodium Chloride 0.9% intravenous solution 250 mL: 1,500 mg, 250 mL/Hr, IV Piggyback, [id number] Documented Medications Documented Aciphex: 20 mg, Oral, BID Advair Diskus 250 mcg-50 mcg inhalation powder: 1 Puff, Inhalation, Daily, PRN: as needed, 0 Refill(s) Centrum: 1 Tab, Oral, Daily Cymbalta 60 mg oral delayed release capsule: 1 Cap, Oral, At Bedtime, (do not crush or chew) Flonase 0.05 mg/inh nasal spray: 2 [place], Nasal, Daily, 16 Gram, 0 Refill(s) Lantus: [...] Bedtime Flonase 0.05 mg/inh nasal spray 2 [place], Nasal, Daily Lantus 60 Units, SubCutaneous, At [...] Comment , Medications (24) Active Scheduled: (16) amLODIPine 5 mg tab 5 mg 1 Tab, Oral, BID cefTRIAXone 2 Gram, IV Piggyback, [id number] divalproex 250 mg EC tab 250 mg [...] tab 12.5 mg 0.5 Tab, Oral, BID QUEtiapine 25 mg tab 6.25 mg 0.25 Tab, Oral, 1-Time vancomycin + NaCl 0.9% 250 mL 1,500 mg, IV Piggyback, [id number] Continuous: (0) PRN: (8) acetaminophen 325 mg [...] list: Medical Wears glasses / SNOMED CT 195446506 / Confirmed Sleep apnea///risk / SNOMED CT 292302128 / Confirmed Colon polyps / SNOMED CT 254923894 / Confirmed Right leg pain / SNOMED CT 3641301724 / Confirmed Obesity / SNOMED CT 5244354835 / Confirmed Numbness and tingling//right leg / SNOMED CT 2051643486 / Confirmed Memory deficit///slow recall / SNOMED CT 5323483698 / Confirmed H/O ischemic left MCA stroke / SNOMED CT 8148356490 / Confirmed Hiatal hernia / SNOMED CT 107466387 / Complaint of Fibromyalgia / SNOMED CT 618429534 / Confirmed Lumbar disc disease / SNOMED CT 1719414029 / Confirmed Completely occulded L carotid / SNOMED CT 5690137724 / Confirmed Chest pain///cath negative / SNOMED CT 50372021 / Confirmed Cataract///beginning stage / SNOMED CT 081047058 / Confirmed Back pain / SNOMED CT 5235490836 / Confirmed At risk for sleep apnea / IMO 98824355 / Confirmed Pain//chronic / SNOMED CT 034280743 / Confirmed, Active Problems (24) Acid reflux [...] Charted Minimum Maximum Temp 97.9 (JUL 14 05:) 97.9 (JUL 14 05:) 98.1 (JUL 14 02:00) Apical HR 80 (JUL 13 21:09) 80 (JUL 13 21:09) 80 (JUL 13 21:09) Mon HR 64 (JUL 14 05:19) 64 (JUL 14 05:19) 86 (JUL 13 11:00) Resp Rate 14 (JUL 14 04:04) 14 (JUL 13 21:07) 16 (JUL 13 11:00) SBP H 183 (JUL 14 05:19) H 150 (JUL 14 04:04) H 192 (JUL 13 11:00) DBP 75 (JUL 14 05:19) 72 (JUL 13 18:40) H 111 (JUL 13 21:07) MAP 92 (JUL 14 05:19) 92 (JUL 14 05:19) 126 (JUL 13 21:07) SpO2 94 (JUL 14 05:19) 94 (JUL 14 04:04) 99 (JUL 13 21:07) General: Moderate distress. Neck: Supple, Non-tender, No [...] (JUL 12) 8.2 (JUL 11) 7.9 (JUL 04) 9.1 (JUL 03) HB 11.5 (JUL 07) 11.5 (JUL 06) 12.6 (OCT 04) 12.0 (JUL 03) HCT 35.7 (JUL 07) 35.6 (JUL 06) 39.8 (OCT 04) 37.3 (OCT 03) Plt 263 (JUL 07) 230 (OCT 06) 267 (OCT 04) 268 (OCT 03) Na 142 (OCT 07) 140 (JUL 06) 142 (JUL 04) 141 (JUL 03) K 3.8 (JUL 07) 4.2 (JUL 06) 4.4 (OCT 04) 3.9 (JUL 03) Cl 104 (JUL 07) 104 (JUL 06) 106 (OCT 04) 105 (JUL 03) CO2 31 (JUL 07) 31 (JUL 06) 27 (JUL 04) 30 (JUL 03) BUN 14 (JUL 07) 14 (JUL 06) 19 (JUL 04) 20 (OCT 03) Cr 0.90 (OCT 07) 0.90 (OCT 06) H 1.10 (JUL 04) 1.00 (JUL 03) Glu R H 202 (JUL 07) H 248 (JUL 06) H 207 (JUL 04) H 153 (JUL 03) Ca 9.0 (JUL 12) 9.0 (JUL 11) 9.4 (JUL 09) 9.7 (JUL 08) PT [...] lantus 20 daily 3. f/u culture 4. on roceph and vanco 5. leg doppler arteria and venous unremarkable 6. pain control 7. Bp control 8. lovenox sq for DVT prophylaxis 9. inctease seroquel 12.5 mg bid, 10. d/c stool softner 11. d/w patient and f/u NS and ID input documented in this encounter Plan of Treatment Not on file documented as of this encounter Visit Diagnoses Not on filedocumented in this encounter
--- OUTSIDE RECORDS SUMMARY | 2025-07-29 11:53 | XMS_ITS | Encounter Summary ---
Author Organization [employer] ([place], [place], [place], [place]) Address [address] [place] [address] Care Team Providers Care Drywall Mechanic Name Role Phone Unavailable Primary Care Provider Unavailabl e Encounter Details Date Type Department Care Team (Late st Contact Info) Description 03/26/2021 Transcribed Document [facility] [place] [facility] [place] [address] ProviderChano MD [address], [place] [phone] Social History Tobacco Use Types Packs/Day Years Used Date Smoking Tobacco: Never Assessed Comments Unknown Sex and Gender Information Value Date Recorded Sex Assigned at Not on file Legal Sex Female 2:07 PM CDT Gender Identity Not on file Sexual Orientation Not on file documented as of this encounter Miscellaneous Notes * Cerner Conversion Note - Historical ProviderMD - 03/26/2021 1:53 AM CDT Electronically signed by [facility] Conversion K 9 Police Officer Cerner at 01/23/2023 1:26 PM CDT documented in this encounter Plan of Treatment Not on file documented as of this encounter Visit Diagnoses Not on filedocumented in this encounter
--- OUTSIDE RECORDS SUMMARY | 2025-07-29 11:53 | XMS_ITS | Encounter Summary ---
Author Organization [employer] ([place], [place], [place], [place]) Address [address] [place] [address] Care Team Providers Care Home Visit Field Care Manager Name Role Phone Unavailable Primary Care Provider Unavailabl e Encounter Details Date Type Department Care Team (Late st Contact Info) Description 07/14/2019 Transcribed Document [facility] [place] [address] ProviderChano MD [address], [place] [id number] Social History Tobacco Use Types Packs/Day Years Used Date Smoking Tobacco: Never Assessed Comments Unknown Sex and Gender Information Value Date Recorded Sex Assigned at Not on file Legal Sex Female 2:07 PM CDT Gender Identity Not on file Sexual Orientation Not on file documented as of this encounter Miscellaneous Notes * Cerner Conversion Note - Chano ProviderMD - 07/14/2019 4:17 PM CDT Patient: LUDY ANTONIO Age: 68 [...] 07) 230 (OCT 06) 267 (JUL 04) 268 (JUL 03) Na 142 (OCT 07) 140 (OCT 06) 142 (OCT 04) 141 (OCT 03) K 3.8 (OCT 07) 4.2 (OCT 06) 4.4 (OCT 04) 3.9 (JUL 03) Cl 104 (OCT 07) 104 (JUL 06) 106 (OCT 04) 105 (JUL 03) CO2 31 (OCT 07) 31 (OCT 06) 27 (OCT 04) 30 (JUL 03) BUN 14 (JUL 12) 14 (JUL 06) 19 (JUL 09) 20 [...] 03) INR 0.9 (JUL 09) 0.9 (JUL 08) PTT 28.0 (JUL 08) AST 18 (JUL 12) 16 (JUL 09) 17 (JUL 03) ALT 25 (JUL 12) 23 (JUL 04) 21 (OCT 03) ALK P 56 (JUL 07) 69 (JUL 09) 63 (JUL 03) T Bili 0.3 (JUL 12) 0.3 (JUL 09) 0.4 (JUL 08) PTN 6.7 (JUL 12) 7.1 (JUL 09) 7.0 (JUL 03) ALB L 2.8 (JUL 12) L 3.1 (JUL 09) L 3.2 (JUL 03) Vitals Signs (last 24 hrs) Last Charted Minimum Maximum Temp 97.9 (JUL 14 10:40) 97.9 (JUL 14 10:40) 98.1 (JUL 14 02:00) Apical HR 74 (JUL 14 11:21) 74 (JUL 14 11:21) 80 (JUL 13:09) Mon HR 85 (JUL 14 10:40) 64 (JUL 14 05:19) 86 (JUL 13 18:40) Resp Rate 18 (JUL 14 10:40) 14 (JUL 13:07) 18 (JUL 14 10:40) SBP H 186 (JUL 14 10:40) H 150 (JUL 14 04:04) H 186 (JUL 13:07) DBP 82 (JUL 14 10:40) 72 (JUL 13 18:40) H 111 (JUL 13:) MAP 101 (JUL 14 10:40) 92 (JUL 14 05:19) 126 (JUL 13:07) SpO2 98 (JUL 14 10:40) 94 (JUL 14:04) 99 (JUL 13:) I/O: 119/0 Micro: 10/4 Wound Cx: No growth 10/4 Fungal Cx: No growth 10/4 AFB: No growth 10/4 Anaerobic Cx: No growth 10/3 Urine Cx: Suggested contamination Vanc levels: 07/14 @1444 Vancomycin trough: 8.3 on Vancomycin 1500mg IV Q24H A/P: 1) Patient's trough supratherapeutic per ID recs at 8.3 2) Based on narrow parameter will continue dose at this time 3) Draw Vancomycin trough on 07/16 @1500 -Hold for trough >20. 4) Will continue to dose and monitor as needed Lia Huddleston PharmD PGY-1 Tube Inspector Pager: [phone] Electronically signed by Summer [facility] Conversion Sprinkler Worker Cerner at 01/23/2023 1:19 PM CDT documented in this encounter Plan of Treatment Not on file documented as of this encounter Visit Diagnoses Not on filedocumented in this encounter
--- OUTSIDE RECORDS SUMMARY | 2025-07-29 11:54 | XMS_ITS | Encounter Summary ---
Author Organization [employer] ([place], [place], [place], [place]) Address [address] [place] [address] Care Team Providers Care Design Agent Name Role Phone Unavailable Primary Care Provider Unavailabl e Encounter Details Date Type Department Care Team (Late st Contact Info) Description 12/04/2018 Transcribed Document [facility] [place] [address] [place] [address] ProviderChano MD [address] [place], [place] [id number] Social History Tobacco Use Types Packs/Day Years Used Date Smoking Tobacco: Never Assessed Comments Unknown Sex and Gender Information Value Date Recorded Sex Assigned at Not on file Legal Sex Female 2:07 PM CDT Gender Identity Not on file Sexual Orientation Not on file documented as of this encounter Miscellaneous Notes * Cerner Conversion Note - Chano ProviderMD - 12/04/2018 11:53 AM REGISTERED NURSE [facility] ED Triage Entered On: 12/04/2018 12:02 EST Performed On: 12/04/2018 11:57 EST by Shahbaz Coffman RN ED Triage Across the Room Triage Date/Time : 12/04/2018 11:57 EST Chief Complaint : pt here c/o left leg pain states that shes unable to put weight on the leg +pms states decreased sensation to left foot Shahbaz Coffman RN - 12/04/2018 11:57 EST Shahbaz Coffman RN - 12/04/2018 11:57 EST DCP GENERIC CODE Tracking Group : [facility] ED Shahbaz Coffman RN - 12/04/2018 11:57 EST Tracking Acuity : 3 - Urgent Shahbaz Coffman RN - 12/04/2018 12:02 EST Mode of Arrival : Ambulatory Transported to ED by : Walk in To Room Via : Wheelchair Accompanied By : Spouse ED Vital Signs : Document Height & Weight : Document ED Allergies : Document ED Reason for Visit : Document Tetanus Immunization : Less than 5 years Shahbaz Coffman RN - 12/04/2018 11:57 EST Infectious Disease History Infectious Disease History : Measles, Mumps Fever/Chills Last 48 Hours : No Travel To Regions with Travel Advisories : No Travel Outside [place] Within Last 30 Days : No Contact With Traveler to Advisory Region : No Tuberculosis Symptoms : None Shahbaz Coffman RN - 12/04/2018 11:57 EST Vital Signs ED Temperature Source : Oral Temperature Mode : Fahrenheit Temperature, Fahrenheit : 98 Deg F Clinical Temperature, C : 36.7 Deg C Oxygen Therapy Mode : Room air Peripheral Pulse Rate : 80 bpm Respiratory Rate : 16 Breaths/Min Systolic Blood Pressure : 143 mmHg (HI) Diastolic Blood Pressure : 61 mmHg Oxygen Saturation : 94 % Shahbaz Coffman RN - 12/04/2018 11:57 EST Allergy (As Of: 12/04/2018 12:02:23 EST) Allergies (Active) Avandia Estimated Onset Date: Unspecified ; Reactions: CHF ; Created By: BONI FARMER RN; Reaction Status: Active ; Category: Drug ; Substance: Avandia ; Type: Allergy ; Updated By: BONI FARMER RN; Reviewed Date: 12/04/2018 12:01 EST fenofibrate Estimated Onset Date: Unspecified ; Created By: LIZ VILLEGAS; Reaction Status: Active ; Category: Drug ; Substance: fenofibrate ; Type: Allergy ; Updated By: LIZ VILLEGAS; Reviewed Date: 12/04/2018 12:01 EST metFORMIN Estimated Onset Date: Unspecified ; Created By: LIZ VILLEGAS; Reaction Status: Active ; Category: Drug ; Substance: metFORMIN ; Type: Allergy ; Updated By: LIZ VILLEGAS; Reviewed Date: 12/04/2018 12:01 EST NSAIDs Estimated Onset Date: Unspecified ; Created By: LIZ VILLEGAS; Reaction Status: Active ; Category: Drug ; Substance: NSAIDs ; Type: Allergy ; Updated By: LIZ VILLEGAS; Reviewed Date: 12/04/2018 12:01 EST rosiglitazone Estimated Onset Date: Unspecified ; Created By: LIZ VILLEGAS; Reaction Status: Active ; Category: Drug ; Substance: rosiglitazone ; Type: Allergy ; Updated By: CONTRIBUTOR_SYSTEMLIZ; Reviewed Date: 12/04/2018 12:01 EST statins Estimated Onset Date: Unspecified ; Reactions: Fenofibrate, Fenofibrate ; Created By: CONTRIBUTOR_SYSTEMLIZ; Reaction Status: Active ; Category: Drug ; Substance: statins ; Type: Allergy ; Updated By: CONTRIBUTOR_SYSTEMLIZ; Reviewed Date: 12/04/2018 12:01 EST Diagnosis Control ED (As Of: 12/04/2018 12:02:23 EST) Problems(Active) Acid reflux (SNOMED CT :722446304 ) Name of Problem: Acid reflux ; Recorder: MIGEL GARCIA RN; Confirmation: Confirmed ; Classification: Patient Stated ; Code: 978824138 ; Contributor System: [employer] ; Last Updated: 03/17/2014 19:28 EDT ; Life Cycle Date: 06/24/2013 ; Life Cycle Status: Active ; Vocabulary: SNOMED CT Allergic asthma (SNOMED CT :6566292392 ) Name of Problem: Allergic asthma ; Recorder: MIGEL GARCIA RN; Confirmation: Confirmed ; Classification: Patient Stated ; Code: 7654845521 ; Contributor System: [employer] ; Last Updated: 03/17/2014 19:28 EDT ; Life Cycle Date: 06/24/2013 ; Life Cycle Status: Active ; Vocabulary: SNOMED CT Anxiety depression (SNOMED CT :050064670 ) Name of Problem: Anxiety depression ; Recorder: MIGEL GARCIA RN; Confirmation: Confirmed ; Classification: Patient Stated ; Code: 391184140 ; Contributor System: [employer] ; Last Updated: 03/22/2014 12:26 EDT ; Life Cycle Date: 06/24/2013 ; Life Cycle Status: Active ; Vocabulary: SNOMED CT Arthritis (SNOMED CT :2849814 ) Name of Problem: Arthritis ; Recorder: MIGEL GARCIA RN; Confirmation: Confirmed ; Classification: Patient Stated ; Code: 2098836 ; Contributor System: [employer] ; Last Updated: 03/17/2014 19:28 EDT ; Life Cycle Date: 06/24/2013 ; Life Cycle Status: Active ; Vocabulary: SNOMED CT BP+ - Hypertension (SNOMED CT :178747922 ) Name of Problem: BP+ - Hypertension ; Recorder: MIGEL GARCIA RN; Confirmation: Confirmed ; Classification: Patient Stated ; Code: 239169479 ; Contributor System: [employer] ; Last Updated: 03/22/2014 10:58 EDT ; Life Cycle Date: 06/24/2013 ; Life Cycle Status: Active ; Vocabulary: SNOMED CT Completely occulded L carotid (SNOMED CT :1440451121 ) Name of Problem: Completely occulded L carotid ; Recorder: STEPHANIE ARREGUIN RN; Confirmation: Confirmed ; Classification: Medical ; Code: 1113616631 ; Contributor System: [employer] ; Last Updated: 04/23/2016 17:54 EDT ; Life Cycle Date: 04/25/2015 ; Life Cycle Status: Active ; Vocabulary: SNOMED CT Congestive heart failure - due to Avandia resolved (SNOMED CT :19794268 ) Name of Problem: Congestive heart failure - due to Avandia resolved ; Recorder: MIGEL GARCIA RN; Confirmation: Confirmed ; Classification: Patient Stated ; Code: 06833814 ; Contributor System: [employer] ; Last Updated: 04/23/2016 17:53 EDT ; Life Cycle Date: 06/24/2013 ; Life Cycle Status: Active ; Vocabulary: SNOMED CT ; Comments: 06/24/2013 10:32 - MIGEL GARCIA RN per pt and DM - Diabetes mellitus (SNOMED CT :521401654 ) Name of Problem: DM - Diabetes mellitus ; Recorder: MIGEL GARCIA RN; Confirmation: Confirmed ; Classification: Patient Stated ; Code: 757844341 ; Contributor System: [employer] ; Last Updated: 03/22/2014 10:54 EDT ; Life Cycle Date: 06/24/2013 ; Life Cycle Status: Active ; Vocabulary: SNOMED CT Dyslipidemia (SNOMED CT :5006527427 ) Name of Problem: Dyslipidemia ; Recorder: MIGEL GARCIA RN; Confirmation: Confirmed ; Classification: Patient Stated ; Code: 8626753366 ; Contributor System: [employer] ; Last Updated: 03/17/2014 19:28 EDT ; Life Cycle Date: 06/24/2013 ; Life Cycle Status: Active ; Vocabulary: SNOMED CT H/O ischemic left MCA stroke (SNOMED CT :8919499824 ) Name of Problem: H/O ischemic left MCA stroke ; Onset Date: 09/05/2012 ; Recorder: SYBIL MCGILL MD-EMR; Confirmation: Confirmed ; Classification: Medical ; Code: 8311787277 ; Contributor System: [employer] ; Last Updated: 04/23/2016 17:54 EDT ; Life Cycle Date: 04/23/2016 ; Life Cycle Status: Active ; Responsible Provider: SYBIL MCGILL MD-EMR; Vocabulary: SNOMED CT Hiatal hernia (SNOMED CT :536597070 ) Name of Problem: Hiatal hernia ; Recorder: SYBIL MCGILL MD-EMR; Confirmation: Complaint of ; Classification: Medical ; Code: 638044449 ; Contributor System: [employer] ; Last Updated: 12/03/2015 16:45 EST ; Life Cycle Date: 12/03/2015 ; Life Cycle Status: Active ; Vocabulary: SNOMED CT Obesity (SNOMED CT :4100479606 ) Name of Problem: Obesity ; Recorder: SYBIL MCGILL MD-EMR; Confirmation: Confirmed ; Classification: Medical ; Code: 3357369895 ; Contributor System: [employer] ; Last Updated: 04/23/2016 17:53 EDT ; Life Cycle Date: 04/23/2016 ; Life Cycle Status: Active ; Responsible Provider: SYBIL MCGILL MD-EMR; Vocabulary: SNOMED CT Diagnoses(Active) Leg pain-swelling Date: 12/04/2018 ; Diagnosis Type: Reason For Visit ; Confirmation: Complaint of ; Clinical Dx: Leg pain-swelling ; Classification: Medical ; Clinical Service: Emergency medicine ; Code: PNED ; Probability: 0 ; Diagnosis Code: [id number] ED Height and Weight Height Source : Stated Height Entry Format : [place] Height, Feet : 5 ft(Converted to: 152 cm, 60 Inch) Height, Inches : 8 Inch(Converted to: 0 ft 8 Inch, 20.32 cm) Clinical Height : 172.72 cm Weight Source, ED : Critical estimated dosing weight Weight Entry Format : [place] Weight, Pounds : 245 lb Clinical Dosing Weight : 111.36 kg Body Surface Area (BSA) : 2.23 m2 Body Mass Index : 37.3 kg/m2 (HI) [place] Body Weight (IBW) : 63.45 kg Shahbaz Coffman RN - 12/04/2018 11:57 EST Electronically signed by Julian Wheeler Conversion Returned Goods Receiving Clerk Cerner at 01/23/2023 1:19 PM CDT documented in this encounter Plan of Treatment Not on file documented as of this encounter Visit Diagnoses Not on filedocumented in this encounter
--- OUTSIDE RECORDS SUMMARY | 2025-07-29 11:54 | XMS_ITS | Encounter Summary ---
Author Organization [employer] ([place], [place], [place], [place]) Address [address] [place] [address] Care Team Providers Care Basket Filler Name Role Phone Unavailable Primary Care Provider Unavailabl e Encounter Details Date Type Department Care Team (Late st Contact Info) Description 04/05/2019 Transcribed Document [facility] [place] [address] [place] [address] ProviderChano MD [address] [place], [place] [id number] Social History Tobacco Use Types Packs/Day Years Used Date Smoking Tobacco: Never Assessed Comments Unknown Sex and Gender Information Value Date Recorded Sex Assigned at Not on file Legal Sex Female 2:07 PM CDT Gender Identity Not on file Sexual Orientation Not on file documented as of this encounter Miscellaneous Notes * Cerner Conversion Note - Chano ProviderMD - 04/05/2019 3:54 PM CDT [facility] Main OR PACU Summary Primary Physician: CATRACHITO THOMPSON, MD ONUR Finalized Date/Time: 04/05/19 20:06:31 Pt. Name: LUDY ANTONIO/Sex: 1950 Female Med Rec #: [id number] Physician: CATRACHITO THOMPSON, MD ONUR Financial #: [id number] Pt. Type: O Room/Bed: Admit/Disch: 04/05/19 06:59:00 - Institution: [facility] Main OR PACU I Case Times Entry 1 In PACU I 04/05/19 17:12:00 Ready for PACU 04/05/19 18:15:00 Discharge Discharge from PACU 04/05/19 19:50:00 I Last Modified By: HOLDEN CUEVAS RN 04/05/19 20:05:59 [facility] Main OR PACU Acuity Entry 1 Start Time 04/05/19 18:15:00 Stop Time 04/05/19 19:50:00 Acuity Level [facility] PACU Acuity I Last Modified By: HOLDEN CUEVAS RN 04/05/19 20:06:28 Finalized By: HOLDEN CUEVAS, RN Document Signatures Signed By: HOLDEN CUEVAS RN 04/05/19 20:06 Electronically signed by Summer [facility] Conversion Transplant Immunologist Cerner at 01/23/2023 1:19 PM CDT documented in this encounter Plan of Treatment Not on file documented as of this encounter Visit Diagnoses Not on filedocumented in this encounter
--- OUTSIDE RECORDS SUMMARY | 2025-07-29 11:54 | XMS_ITS | Encounter Summary ---
Author Organization [employer] ([place], [place], [place], [place]) Address [address] [place] [address] Care Team Providers Care Miner Pick Name Role Phone Unavailable Primary Care Provider Unavailabl e Encounter Details Date Type Department Care Team (Late st Contact Info) Description 07/13/2019 Transcribed Document [facility] [place] [address] [place] [address] ProviderChano MD [address], [place] [id number] Social History Tobacco Use Types Packs/Day Years Used Date Smoking Tobacco: Never Assessed Comments Unknown Sex and Gender Information Value Date Recorded Sex Assigned at Not on file Legal Sex Female 2:07 PM CDT Gender Identity Not on file Sexual Orientation Not on file documented as of this encounter Miscellaneous Notes * Cerner Conversion Note - Chano Gatica MD - 07/13/2019 5:38 PM CDT On Going Discharge Planning Entered On: 07/13/2019 17:41 EDT Performed On: 07/13/2019 17:38 EDT by HORACIO ACHARYA RN-Mottler OperatorRoll On Worker Progress Note Discharge Arrangements : Patient Post-Acute Information Patient Name: LUDY ANTONIO Gender: Female : [birth year] Age: 68 Years No Post-Acute Placement(s) Listed No Post-Acute Service(s) Listed No [place] Referral(s) Listed Barriers to Discharge Identified : Clinical Condition of Patient Barriers to Discharge Unresolved : Clinical Condition of Patient Is the Patient Meeting Medical Necessity : Yes HORACIO ACHARYA RN-Mottler Operator - 07/13/2019 17:38 EDT Narrative Progress Note Narrative Progress Note : Dr. Valdez consult this [...] yrs ago. CM will continue to follow. Historical Progress Note : psych consult referral faxed to Dr. Valdez's office to assess for psychosis. SANJIV VOGT, RN-Mottler Operator - 07/11/19 16:14:26 HORACIO ACHARYA RN-Mottler Operator - 07/13/2019 17:38 EDT documented in this encounter Plan of Treatment Not on file documented as of this encounter Visit Diagnoses Not on filedocumented in this encounter
--- OUTSIDE RECORDS SUMMARY | 2025-07-29 11:54 | XMS_ITS | Encounter Summary ---
Author Organization [employer] ([place], [place], [place], [place]) Address [address] [place] [address] Care Team Providers Care Supervisor Matrix Name Role Phone Unavailable Primary Care Provider Unavailabl e Encounter Details Date Type Department Care Team (Late st Contact Info) Description 10/05/2019 Transcribed Document [facility] [place] [address] [place] [address] ProviderChano MD [address] [place], [place] [id number] Social History Tobacco Use Types Packs/Day Years Used Date Smoking Tobacco: Never Assessed Comments Unknown Sex and Gender Information Value Date Recorded Sex Assigned at Not on file Legal Sex Female 2:07 PM CDT Gender Identity Not on file Sexual Orientation Not on file documented as of this encounter Miscellaneous Notes * Cerner Conversion Note - Chano ProviderMD - 10/05/2019 6:04 PM FACE PAINTER ED Triage Entered On: 10/05/2019 18:10 EST Performed On: 10/05/2019 18:05 EST by Urvashi Ta RN ED Triage Across the Room Chief Complaint : pt arrives very anxious, c/o chest pain and soa. seen at [facility] yesterday for the same s/sx. reports that pt is not allergic to aspirin it just hurts her stomach Triage Date/Time : 10/05/2019 18:05 EST Urvashi Ta RN - 10/05/2019 18:05 EST DCP GENERIC CODE Tracking Acuity : 3 - Urgent Tracking Group : [facility] ED Urvashi Ta RN - 10/05/2019 18:05 EST Mode of Arrival : Stretcher Transported to ED by : Ambulance/ALS EMS Service : [facility] To Room Via : Stretcher Accompanied By : Significant other TOWEL WEAVER Medications and Interventions : Document Height & Weight : Document ED Allergies : Document ED Reason for Visit : Document Tetanus Immunization : Less than 5 years Collar Fuser Needed : No Urvashi Ta RN - 10/05/2019 18:05 EST Infectious Disease History Infectious Disease History : Chicken pox/Shingles, Measles, Mumps Fever/Chills Last 48 Hours : No Travel To Regions with Travel Advisories : No Travel Outside [place] Within Last 30 Days : No Contact With Traveler to Advisory Region : No Tuberculosis Symptoms : None Urvashi Ta RN - 10/05/2019 18:05 EST Allergy (As Of: 10/05/2019 18:10:52 EST) Allergies (Active) aspirin Estimated Onset Date: Unspecified ; Created By: Urvashi Ta RN; Reaction Status: Active ; Category: Drug ; Substance: aspirin ; Type: Allergy ; Updated By: Urvashi Ta RN; Reviewed Date: 10/05/2019 18:07 EST Avandia Estimated Onset Date: Unspecified ; Reactions: CHF ; Created By: BONI FARMER RN; Reaction Status: Active ; Category: Drug ; Substance: Avandia ; Type: Allergy ; Updated By: BONI FARMER RN; Reviewed Date: 10/05/2019 18:07 EST fenofibrate Estimated Onset Date: Unspecified ; Created By: LIZ VILLEGAS; Reaction Status: Active ; Category: Drug ; Substance: fenofibrate ; Type: Allergy ; Updated By: LIZ VILLEGAS; Reviewed Date: 10/05/2019 18:07 EST metFORMIN Estimated Onset Date: Unspecified ; Created By: LIZ VILLEGAS; Reaction Status: Active ; Category: Drug ; Substance: metFORMIN ; Type: Allergy ; Updated By: LIZ VILLEGAS; Reviewed Date: 10/05/2019 18:07 EST NSAIDs Estimated Onset Date: Unspecified ; Created By: LIZ VILLEGAS; Reaction Status: Active ; Category: Drug ; Substance: NSAIDs ; Type: Allergy ; Updated By: LIZ VILLEGAS; Reviewed Date: 10/05/2019 18:07 EST statins Estimated Onset Date: Unspecified ; Reactions: Fenofibrate, Fenofibrate ; Created By: LIZ VILLEGAS; Reaction Status: Active ; Category: Drug ; Substance: statins ; Type: Allergy ; Updated By: CONTRIBUTOR_SYSTEM, HIST_NGOZI; Reviewed Date: 10/05/2019 18:07 EST Diagnosis Control ED (As Of: 10/05/2019 18:10:52 EST) Problems(Active) Acid reflux (SNOMED CT :631733746 ) Name of Problem: Acid reflux ; Recorder: MIGEL GARCIA, EDISON; Confirmation: Confirmed ; Classification: Patient Stated ; Code: [id number] ; Contributor System: [employer] ; Last Updated: 03/17/2014 19:28 EDT ; Life Cycle Date: 06/24/2013 ; Life Cycle Status: Active ; Vocabulary: SNOMED CT Allergic asthma (SNOMED CT :9493100110 ) Name of Problem: Allergic asthma ; Recorder: MIGEL GARCIA RN; Confirmation: Confirmed ; Classification: Patient Stated ; Code: 8158407149 ; Contributor System: [employer] ; Last Updated: 03/17/2014 19:28 EDT ; Life Cycle Date: 06/24/2013 ; Life Cycle Status: Active ; Vocabulary: SNOMED CT Arthritis (SNOMED CT :0049062 ) Name of Problem: Arthritis ; Recorder: MIGEL GARCIA RN; Confirmation: Confirmed ; Classification: Patient Stated ; Code: 2460699 ; Contributor System: PowerChart ; Last Updated: 03/17/2014 19:28 EDT ; Life Cycle Date: 06/24/2013 ; Life Cycle Status: Active ; Vocabulary: SNOMED CT At risk for sleep apnea (IMO :94951939 ) Name of Problem: At risk for sleep apnea ; Recorder: SYSTEM, SYSTEM; Confirmation: Confirmed ; Classification: Medical ; Code: 98773033 ; Last Updated: 04/01/2019 10:50 EDT ; Life Cycle Date: 04/01/2019 ; Life Cycle Status: Active ; Vocabulary: IMO Back pain (SNOMED CT :8176699006 ) Name of Problem: Back pain ; Recorder: BIANKA DUNN RN; Confirmation: Confirmed ; Classification: Medical ; Code: 1647229817 ; Contributor System: [employer] ; Last Updated: 04/01/2019 10:23 EDT ; Life Cycle Date: 04/01/2019 ; Life Cycle Status: Active ; Vocabulary: SNOMED CT BP+ - Hypertension (SNOMED CT :720936194 ) Name of Problem: BP+ - Hypertension ; Recorder: MIGEL GARCIA RN; Confirmation: Confirmed ; Classification: Patient Stated ; Code: 485936516 ; Contributor System: PowerChart ; Last Updated: 03/22/2014 10:58 EDT ; Life Cycle Date: 06/24/2013 ; Life Cycle Status: Active ; Vocabulary: SNOMED CT Cataract///beginning stage (SNOMED CT :518710595 ) Name of Problem: Cataract///beginning stage ; Recorder: BIANKA DUNN RN; Confirmation: Confirmed ; Classification: Medical ; Code: 184257410 ; Contributor System: PowerChart ; Last Updated: 04/01/2019 10:22 EDT ; Life Cycle Date: 04/01/2019 ; Life Cycle Status: Active ; Vocabulary: SNOMED CT Chest pain///cath negative (SNOMED CT :19225350 ) Name of Problem: Chest pain///cath negative ; Onset Date: 2012 ; Recorder: BIANKA DUNN RN; Confirmation: Confirmed ; Classification: Medical ; Code: 09063949 ; Contributor System: PowerChart ; Last Updated: 04/01/2019 10:27 EDT ; Life Cycle Date: 04/01/2019 ; Life Cycle Status: Active ; Vocabulary: SNOMED CT Colon polyps (SNOMED CT :945243405 ) Name of Problem: Colon polyps ; Recorder: BIANKA DUNN RN; Confirmation: Confirmed ; Classification: Medical ; Code: 950646360 ; Contributor System: [employer] ; Last Updated: 04/01/2019 10:22 EDT ; Life Cycle Date: 04/01/2019 ; Life Cycle Status: Active ; Vocabulary: SNOMED CT Completely occulded L carotid (SNOMED CT :8519538783 ) Name of Problem: Completely occulded L carotid ; Recorder: STEPHANIE ARREGUIN RN; Confirmation: Confirmed ; Classification: Medical ; Code: 0343432239 ; Contributor System: [employer] ; Last Updated: 04/23/2016 17:54 EDT ; Life Cycle Date: 04/25/2015 ; Life Cycle Status: Active ; Vocabulary: SNOMED CT Congestive heart failure - due to Avandia resolved (SNOMED CT :20623301 ) Name of Problem: Congestive heart failure - due to Avandia resolved ; Recorder: MIGEL GARCIA RN; Confirmation: Confirmed ; Classification: Patient Stated ; Code: 88854973 ; Contributor System: PowerChart ; Last Updated: 04/23/2016 17:53 EDT ; Life Cycle Date: 06/24/2013 ; Life Cycle Status: Active ; Vocabulary: SNOMED CT ; Comments: 06/24/2013 10:32 - MIGEL GARCIA RN per pt and DM - Diabetes mellitus (SNOMED CT :617659327 ) Name of Problem: DM - Diabetes mellitus ; Recorder: MIGEL GARCIA RN; Confirmation: Confirmed ; Classification: Patient Stated ; Code: 619325507 ; Contributor System: PowerChart ; Last Updated: 03/22/2014 10:54 EDT ; Life Cycle Date: 06/24/2013 ; Life Cycle Status: Active ; Vocabulary: SNOMED CT Dyslipidemia (SNOMED CT :1854975135 ) Name of Problem: Dyslipidemia ; Recorder: MIGEL GARCIA RN; Confirmation: Confirmed ; Classification: Patient Stated ; Code: 0931627904 ; Contributor System: PowerChart ; Last Updated: 03/17/2014 19:28 EDT ; Life Cycle Date: 06/24/2013 ; Life Cycle Status: Active ; Vocabulary: SNOMED CT Fibromyalgia (SNOMED CT :383681830 ) Name of Problem: Fibromyalgia ; Recorder: BIANKA DUNN RN; Confirmation: Confirmed ; Classification: Medical ; Code: 769875120 ; Contributor System: PowerChart ; Last Updated: 04/01/2019 10:24 EDT ; Life Cycle Date: 04/01/2019 ; Life Cycle Status: Active ; Vocabulary: SNOMED CT H/O ischemic left MCA stroke (SNOMED CT :3338805253 ) Name of Problem: H/O ischemic left MCA stroke ; Onset Date: 09/05/2012 ; Recorder: SYBIL MCGILL MD-EMR; Confirmation: Confirmed ; Classification: Medical ; Code: 1026542982 ; Contributor System: PowerChart ; Last Updated: 04/23/2016 17:54 EDT ; Life Cycle Date: 04/23/2016 ; Life Cycle Status: Active ; Responsible Provider: SYBIL MCGILL MD-EMR; Vocabulary: SNOMED CT Hiatal hernia (SNOMED CT :542180029 ) Name of Problem: Hiatal hernia ; Recorder: SYBIL MCGILL MD-AVINASH; Confirmation: Complaint of ; Classification: Medical ; Code: 496609220 ; Contributor System: PowerChart ; Last Updated: 12/03/2015 16:45 EST ; Life Cycle Date: 12/03/2015 ; Life Cycle Status: Active ; Vocabulary: SNOMED CT Lumbar disc disease (SNOMED CT :4803393410 ) Name of Problem: Lumbar disc disease ; Recorder: BIANKA DUNN RN; Confirmation: Confirmed ; Classification: Medical ; Code: 5513012737 ; Contributor System: PowerChart ; Last Updated: 04/01/2019 10:25 EDT ; Life Cycle Date: 04/01/2019 ; Life Cycle Status: Active ; Vocabulary: SNOMED CT Memory deficit///slow recall (SNOMED CT :0493697322 ) Name of Problem: Memory deficit///slow recall ; Recorder: BIANKA DUNN RN; Confirmation: Confirmed ; Classification: Medical ; Code: 6336619503 ; Contributor System: [employer] ; Last Updated: 04/01/2019 10:51 EDT ; Life Cycle Status: Active ; Vocabulary: SNOMED CT Numbness and tingling//right leg (SNOMED CT :5284008040 ) Name of Problem: Numbness and tingling//right leg ; Recorder: BIANKA DUNN RN; Confirmation: Confirmed ; Classification: Medical ; Code: 9412547342 ; Contributor System: [employer] ; Last Updated: 04/01/2019 10:23 EDT ; Life Cycle Date: 04/01/2019 ; Life Cycle Status: Active ; Vocabulary: SNOMED CT Obesity (SNOMED CT :3501506204 ) Name of Problem: Obesity ; Recorder: SYBIL MCGILL MD-AVINASH; Confirmation: Confirmed ; Classification: Medical ; Code: 4131761650 ; Contributor System: PowerChart ; Last Updated: 04/23/2016 17:53 EDT ; Life Cycle Date: 04/23/2016 ; Life Cycle Status: Active ; Responsible Provider: SYBIL MCGILL MD-EMR; Vocabulary: SNOMED CT Pain//chronic (SNOMED CT :238198430 ) Name of Problem: Pain//chronic ; Recorder: BIANKA DUNN RN; Confirmation: Confirmed ; Classification: Medical ; Code: 997455817 ; Contributor System: PowerChart ; Last Updated: 04/01/2019 10:24 EDT ; Life Cycle Date: 04/01/2019 ; Life Cycle Status: Active ; Vocabulary: SNOMED CT Right leg pain (SNOMED CT :0818341030 ) Name of Problem: Right leg pain ; Recorder: BIANKA DUNN RN; Confirmation: Confirmed ; Classification: Medical ; Code: 5820115128 ; Contributor System: PowerChart ; Last Updated: 04/01/2019 10:23 EDT ; Life Cycle Date: 04/01/2019 ; Life Cycle Status: Active ; Vocabulary: SNOMED CT Sleep apnea///risk (SNOMED CT :039807494 ) Name of Problem: Sleep apnea///risk ; Recorder: BIANKA DUNN RN; Confirmation: Confirmed ; Classification: Medical ; Code: 269451620 ; Contributor System: PowerChart ; Last Updated: 04/01/2019 10:37 EDT ; Life Cycle Date: 04/01/2019 ; Life Cycle Status: Active ; Vocabulary: SNOMED CT Wears glasses (SNOMED CT :551578006 ) Name of Problem: Wears glasses ; Recorder: BIANKA DUNN RN; Confirmation: Confirmed ; Classification: Medical ; Code: 319751963 ; Contributor System: [employer] ; Last Updated: 04/01/2019 10:19 EDT ; Life Cycle Date: 04/01/2019 ; Life Cycle Status: Active ; Vocabulary: SNOMED CT Diagnoses(Active) Anxiety Date: 10/05/2019 ; Diagnosis Type: Reason For Visit ; Confirmation: Complaint of ; Clinical Dx: Anxiety ; Classification: Medical ; Clinical Service: Emergency medicine ; Code: PNED ; Probability: 0 ; Diagnosis Code: [id number] Chest pain Date: 10/05/2019 ; Diagnosis Type: Reason For Visit ; Confirmation: Complaint of ; Clinical Dx: Chest pain ; Classification: Medical ; Clinical Service: Emergency medicine ; Code: PNED ; Probability: 0 ; Diagnosis Code: [id number] ED Height and Weight Height Source : Stated Height Entry Format : [facility] Height, Feet : 5 ft(Converted to: 152 cm, 60 Inch) Height, Inches : 7 Inch(Converted to: 0 ft 7 Inch, 17.78 cm) Clinical Height : 170.18 cm Weight Source, ED : Critical estimated dosing weight Weight Entry Format : [facility] Weight, Pounds : 250 lb Clinical Dosing Weight : 113.64 kg Body Surface Area (BSA) : 2.23 m2 Body Mass Index : 39.2 kg/m2 (HI) Ozan Body Weight (IBW) : 61.16 kg Urvashi Ta RN - 10/05/2019 18:05 EST TOWEL WEAVER Medications and Interventions Treatments Prior to Arrival : Other: 18 G right wrist, aspirin 81mg then pt reports, I am allergic . Urvashi Ta RN - 10/05/2019 18:05 EST documented in this encounter Plan of Treatment Not on file documented as of this encounter Visit Diagnoses Not on filedocumented in this encounter
--- OUTSIDE RECORDS SUMMARY | 2025-07-29 11:54 | XMS_ITS | Encounter Summary ---
Author Organization [employer] ([place], [place], [place], [place]) Address [address] [place] [address] Care Team Providers Care Reaming Press Operator Name Role Phone Unavailable Primary Care Provider Unavailabl e Encounter Details Date Type Department Care Team (Late st Contact Info) Description 07/13/2019 Transcribed Document [facility] [place] [address] [place] [address] ProviderChano MD [address] [place], [place] [address] Social History Tobacco Use Types Packs/Day Years Used Date Smoking Tobacco: Never Assessed Comments Unknown Sex and Gender Information Value Date Recorded Sex Assigned at Not on file Legal Sex Female 2:07 PM CDT Gender Identity Not on file Sexual Orientation Not on file documented as of this encounter Miscellaneous Notes * Cerner Conversion Note - Historical ProviderMD - 07/13/2019 2:00 AM CDT Plant Worker Details Entered On: 07/12/2019 22:55 EDT Performed On: 07/12/2019 22:55 EDT by Angelica Michel Rn-Flex Team Order [...] : No Angelica Michel Rn-Flex Team - 07/12/2019 22:55 EDT documented in this encounter Plan of Treatment Not on file documented as of this encounter Visit Diagnoses Not on filedocumented in this encounter
--- OUTSIDE RECORDS SUMMARY | 2025-07-29 11:54 | XMS_ITS | Encounter Summary ---
Author Organization [employer] ([place], [place], [place], [place]) Address [address] [place] [address] Care Team Providers Care Honeycomb Blanket Maker Name Role Phone Unavailable Primary Care Provider Unavailabl e Encounter Details Date Type Department Care Team (Late st Contact Info) Description 07/13/2019 Transcribed Document [facility] [place] [address] [place] [address] ProviderChano MD [address], [place] [id number] Social History Tobacco Use Types Packs/Day Years Used Date Smoking Tobacco: Never Assessed Comments Unknown Sex and Gender Information Value Date Recorded Sex Assigned at Not on file Legal Sex Female 2:07 PM CDT Gender Identity Not on file Sexual Orientation Not on file documented as of this encounter Miscellaneous Notes * Cerner Conversion Note - Chano ProviderMD - 07/13/2019 7:57 AM CDT UM Authorization Entered On: 07/13/2019 7:59 EDT Performed On: 07/13/2019 7:57 EDT by ROSEY SANTILLAN, Mathematician Primary Insurance Authorization Authorization and Policy Numbers : Insurance 1 Health Plan: [employer] Policy Number: [id number] Authorization Number: [id number] Insurance Primary Name : [employer] [id number] Authorization Status-Primary : Notification only Authorization Fax Number-Primary : [phone] Auth/Referral Phone Number-Primary : [phone] Auth/Referral Contact Name-Primary : Saulo Hanks Reference Number-Primary : Authorization Number-Primary : [id number] Authorized Service Begin Date-Primary : 07/08/2019 EDT Observation Authorization Nbr-Primary : [id number] Authorization Comments-Primary : inpt approved per email from Saulo Hanks auth# [id number] Historical Authorization Comments-Primary : Comment 1: pending ref# per [facility]. clinical faxed per [employer]ner for ip auth (Mary Jackson, Rn-Utilization Review 07/11/2019 09:56) Comment 2: per IPAS patient meets ip criteria. obtained ip order submitted on [facility] for ip auth (Mary Jackson, Rn-Utilization Review 07/11/2019 09:43) Comment 3: submitted for and obtained opo approval from [facility] opo auth# [id number] (ROSEY SANTILLAN, Mathematician 07/09/2019 12:59) ROSEY SANTILLAN, Mathematician - 07/13/2019 7:57 EDT documented in this encounter Plan of Treatment Not on file documented as of this encounter Visit Diagnoses Not on filedocumented in this encounter
--- OUTSIDE RECORDS SUMMARY | 2025-07-29 11:54 | XMS_ITS | Encounter Summary ---
Author Organization [employer] ([place], [place], [place], [place]) Address [address] [place] [address] Care Team Providers Care Oil Sprayer Name Role Phone Unavailable Primary Care Provider Unavailabl e Encounter Details Date Type Department Care Team (Late st Contact Info) Description 10/06/2019 Transcribed Document [facility] [place] [address] [place] [address] ProviderChano MD [address] [place], [place] [id number] Social History Tobacco Use Types Packs/Day Years Used Date Smoking Tobacco: Never Assessed Comments Unknown Sex and Gender Information Value Date Recorded Sex Assigned at Not on file Legal Sex Female 2:07 PM CDT Gender Identity Not on file Sexual Orientation Not on file documented as of this encounter Miscellaneous Notes * Cerner Conversion Note - Historical ProviderMD - 10/06/2019 8:19 AM UPHOLSTERER OUTSIDE CR Chest 2 Vws Ordered: 10/05/2019 Auth (Verified) Reason for Exam: pain 10/05/2019 18:59 10/06/2019 08:19 (AKIKO OSWALD, MARIN) Reviewed by Provider, No further action required X1 - no acute Electronically signed by Summer [facility] Conversion Motor And Generator Assembler Cerner at 01/23/2023 1:39 PM CDT documented in this encounter Plan of Treatment Not on file documented as of this encounter Visit Diagnoses Not on filedocumented in this encounter
--- OUTSIDE RECORDS SUMMARY | 2025-07-29 11:54 | XMS_ITS | Encounter Summary ---
Author Organization [employer] ([place], [place], [place], [place]) Address [address] [place] [address] Care Team Providers Care Business Editor Name Role Phone Unavailable Primary Care Provider Unavailabl e Encounter Details Date Type Department Care Team (Late st Contact Info) Description 03/25/[address] [facility] [place] [facility] [place] [address] ProviderChano MD [address] [id number] Social History Tobacco Use Types Packs/Day Years Used Date Smoking Tobacco: Never Assessed Comments Unknown Sex and Gender Information Value Date Recorded Sex Assigned at Not on file Legal Sex Female 2:07 PM CDT Gender Identity Not on file Sexual Orientation Not on file documented as of this encounter Miscellaneous Notes * Cerner Conversion Note - Chano ProviderMD - 03/25/2021 10:24 PM CDT ED Triage Entered On: 03/25/2021 22:38 EDT Performed On: 03/25/2021 22:32 EDT by MIGEL ANDREW Rn ED Triage Across the Room Chief Complaint : Pt c/o constipation. Pt states her last good bowel movement was last week. also states temp at home was 100.1. Pt c/o feeling hot Triage Date/Time : 03/25/2021 22:32 EDT MIGEL ANDREW Rn - 03/25/2021 22:32 EDT DCP GENERIC CODE Tracking Acuity : 3 - Urgent Tracking Group : [facility] ED MIGEL ANDREW Rn - 03/25/2021 22:32 EDT Mode of Arrival : Ambulatory Transported to ED by : Private vehicle To Room Via : Ambulate Accompanied By : Spouse ED Vital Signs : Document Height & Weight : Document ED Allergies : Document ED Infection Control : No ED Reason for Visit : Document Tetanus Immunization : Less than 5 years MIGEL ANDREW Rn - 03/25/2021 22:32 EDT Infectious Disease History Has the patient ever been tested for COVID-19? : Yes, Patient stated results Negative Date of COVID-19 test known? : No Does patient have symptoms of COVID-19? : No COVID19 Screening : No Experiencing Infectious Disease Symptoms : No symptoms Physical contact outside [place] in the last 30 days : No Infectious Disease History : Chicken pox/Shingles, Measles, Mumps Tuberculosis Symptoms : None MIGEL ANDREW Rn - 03/25/2021 22:32 EDT Vital Signs ED Temperature Source : Temporal artery scanning Temperature Mode : Fahrenheit Temperature, Fahrenheit : 97.4 Deg F ED Pain : Yes Clinical Temperature, C : 36.3 Deg C Oxygen Therapy Mode : Room air Peripheral Pulse Rate : 91 bpm Respiratory Rate : 16 Breaths/Min Systolic Blood Pressure : 192 mmHg (HI) Diastolic Blood Pressure : 86 mmHg Oxygen Saturation : 97 % MIGEL ANDREW Rn - 03/25/2021 22:32 EDT Allergy (As Of: 03/25/2021 22:38:02 EDT) Allergies (Active) aspirin Estimated Onset Date: Unspecified ; Created By: Urvashi Ta RN; Reaction Status: Active ; Category: Drug ; Substance: aspirin ; Type: Allergy ; Updated By: Urvashi Ta RN; Reviewed Date: 03/25/2021 22:37 EDT Avandia Estimated Onset Date: Unspecified ; Reactions: CHF ; Created By: BONI FARMER RN; Reaction Status: Active ; Category: Drug ; Substance: Avandia ; Type: Allergy ; Updated By: BONI FARMER RN; Reviewed Date: 03/25/2021 22:37 EDT fenofibrate Estimated Onset Date: Unspecified ; Created By: LIZ VILLEGAS; Reaction Status: Active ; Category: Drug ; Substance: fenofibrate ; Type: Allergy ; Updated By: LIZ VILLEGAS; Reviewed Date: 03/25/2021 22:37 EDT metFORMIN Estimated Onset Date: Unspecified ; Created By: LIZ VILLEGAS; Reaction Status: Active ; Category: Drug ; Substance: metFORMIN ; Type: Allergy ; Updated By: MARTHA VILLEGAS_CERNER; Reviewed Date: 03/25/2021 22:37 EDT NSAIDs Estimated Onset Date: Unspecified ; Created By: LIZ VILLEGAS; Reaction Status: Active ; Category: Drug ; Substance: NSAIDs ; Type: Allergy ; Updated By: STARLA_LIZ ARMANDO; Reviewed Date: 03/25/2021 22:37 EDT statins Estimated Onset Date: Unspecified ; Reactions: Fenofibrate, Fenofibrate ; Created By: CONTRIBUTORLIZ MCCONNELL; Reaction Status: Active ; Category: Drug ; Substance: statins ; Type: Allergy ; Updated By: CONTRIBUTOR_LIZ ARMANDO; Reviewed Date: 03/25/2021 22:37 EDT Diagnosis Control ED (As Of: 03/25/2021 22:38:02 EDT) Problems(Active) Acid reflux (SNOMED CT :961485355 ) Name of Problem: Acid reflux ; Recorder: MIGEL GARCIA RN; Confirmation: Confirmed ; Classification: Patient Stated ; Code: [id number] ; Contributor System: [employer] ; Last Updated: 03/17/2014 19:28 EDT ; Life Cycle Date: 06/24/2013 ; Life Cycle Status: Active ; Vocabulary: SNOMED CT Allergic asthma (SNOMED CT :8186642634 ) Name of Problem: Allergic asthma ; Recorder: MIGEL GARCIA RN; Confirmation: Confirmed ; Classification: Patient Stated ; Code: [id number] ; Contributor System: [employer] ; Last Updated: 03/17/2014 19:28 EDT ; Life Cycle Date: 06/24/2013 ; Life Cycle Status: Active ; Vocabulary: SNOMED CT Arthritis (SNOMED CT :1358837 ) Name of Problem: Arthritis ; Recorder: MIGEL GARCIA RN; Confirmation: Confirmed ; Classification: Patient Stated ; Code: 9896474 ; Contributor System: [employer] ; Last Updated: 03/17/2014 19:28 EDT ; Life Cycle Date: 06/24/2013 ; Life Cycle Status: Active ; Vocabulary: SNOMED CT At risk for sleep apnea (IMO :65393133 ) Name of Problem: At risk for sleep apnea ; Recorder: SYSTEM, SYSTEM; Confirmation: Confirmed ; Classification: Medical ; Code: 79568016 ; Last Updated: 04/01/2019 10:50 EDT ; Life Cycle Date: 04/01/2019 ; Life Cycle Status: Active ; Vocabulary: IMO Back pain (SNOMED CT :3794620082 ) Name of Problem: Back pain ; Recorder: BIANKA DUNN RN; Confirmation: Confirmed ; Classification: Medical ; Code: 5473859233 ; Contributor System: [employer] ; Last Updated: 04/01/2019 10:23 EDT ; Life Cycle Date: 04/01/2019 ; Life Cycle Status: Active ; Vocabulary: SNOMED CT BP+ - Hypertension (SNOMED CT :959709899 ) Name of Problem: BP+ - Hypertension ; Recorder: MIGEL GARCIA RN; Confirmation: Confirmed ; Classification: Patient Stated ; Code: 343961087 ; Contributor System: [employer] ; Last Updated: 03/22/2014 10:58 EDT ; Life Cycle Date: 06/24/2013 ; Life Cycle Status: Active ; Vocabulary: SNOMED CT Cataract///beginning stage (SNOMED CT :040902303 ) Name of Problem: Cataract///beginning stage ; Recorder: BIANKA DUNN RN; Confirmation: Confirmed ; Classification: Medical ; Code: 038186975 ; Contributor System: [employer] ; Last Updated: 04/01/2019 10:22 EDT ; Life Cycle Date: 04/01/2019 ; Life Cycle Status: Active ; Vocabulary: SNOMED CT Chest pain///cath negative (SNOMED CT :03811225 ) Name of Problem: Chest pain///cath negative ; Onset Date: 2012 ; Recorder: BIANKA DUNN RN; Confirmation: Confirmed ; Classification: Medical ; Code: 23976196 ; Contributor System: [employer] ; Last Updated: 04/01/2019 10:27 EDT ; Life Cycle Date: 04/01/2019 ; Life Cycle Status: Active ; Vocabulary: SNOMED CT Colon polyps (SNOMED CT :275319869 ) Name of Problem: Colon polyps ; Recorder: BIANKA DUNN RN; Confirmation: Confirmed ; Classification: Medical ; Code: 384537903 ; Contributor System: [employer] ; Last Updated: 04/01/2019 10:22 EDT ; Life Cycle Date: 04/01/2019 ; Life Cycle Status: Active ; Vocabulary: SNOMED CT Completely occulded L carotid (SNOMED CT :9390193913 ) Name of Problem: Completely occulded L carotid ; Recorder: STEPHANIE ARREGUIN RN; Confirmation: Confirmed ; Classification: Medical ; Code: 5537618230 ; Contributor System: [employer] ; Last Updated: 04/23/2016 17:54 EDT ; Life Cycle Date: 04/25/2015 ; Life Cycle Status: Active ; Vocabulary: SNOMED CT Congestive heart failure - due to Avandia resolved (SNOMED CT :89296002 ) Name of Problem: Congestive heart failure - due to Avandia resolved ; Recorder: MIGEL GARCIA RN; Confirmation: Confirmed ; Classification: Patient Stated ; Code: 10099998 ; Contributor System: [employer] ; Last Updated: 04/23/2016 17:53 EDT ; Life Cycle Date: 06/24/2013 ; Life Cycle Status: Active ; Vocabulary: SNOMED CT ; Comments: 06/24/2013 10:32 - MIGEL GARCIA RN per pt and CVA (cerebral vascular accident) (SNOMED CT :259239805 ) Name of Problem: CVA (cerebral vascular accident) ; Recorder: MIGEL ANDREW Rn; Confirmation: Confirmed ; Classification: Medical ; Code: 003195339 ; Contributor System: [employer] ; Last Updated: 03/25/2021 22:37 EDT ; Life Cycle Date: 03/25/2021 ; Life Cycle Status: Active ; Vocabulary: SNOMED CT DM - Diabetes mellitus (SNOMED CT :462438486 ) Name of Problem: DM - Diabetes mellitus ; Recorder: MIGEL GARCIA RN; Confirmation: Confirmed ; Classification: Patient Stated ; Code: 654664910 ; Contributor System: [employer] ; Last Updated: 03/22/2014 10:54 EDT ; Life Cycle Date: 06/24/2013 ; Life Cycle Status: Active ; Vocabulary: SNOMED CT Dyslipidemia (SNOMED CT :9528595023 ) Name of Problem: Dyslipidemia ; Recorder: MIGEL GARCIA RN; Confirmation: Confirmed ; Classification: Patient Stated ; Code: 7743400280 ; Contributor System: [employer] ; Last Updated: 03/17/2014 19:28 EDT ; Life Cycle Date: 06/24/2013 ; Life Cycle Status: Active ; Vocabulary: SNOMED CT Fibromyalgia (SNOMED CT :695180232 ) Name of Problem: Fibromyalgia ; Recorder: BIANKA DUNN RN; Confirmation: Confirmed ; Classification: Medical ; Code: 053921120 ; Contributor System: [employer] ; Last Updated: 04/01/2019 10:24 EDT ; Life Cycle Date: 04/01/2019 ; Life Cycle Status: Active ; Vocabulary: SNOMED CT H/O ischemic left MCA stroke (SNOMED CT :5722593820 ) Name of Problem: H/O ischemic left MCA stroke ; Onset Date: 09/05/2012 ; Recorder: SYBIL MCGILL MD-EMR; Confirmation: Confirmed ; Classification: Medical ; Code: 9760361883 ; Contributor System: [employer] ; Last Updated: 04/23/2016 17:54 EDT ; Life Cycle Date: 04/23/2016 ; Life Cycle Status: Active ; Responsible Provider: SYBIL MCGILL MD-AVINASH; Vocabulary: SNOMED CT Hiatal hernia (SNOMED CT :800122729 ) Name of Problem: Hiatal hernia ; Recorder: SYBIL MCGILL MD-EMR; Confirmation: Complaint of ; Classification: Medical ; Code: 908989565 ; Contributor System: [employer] ; Last Updated: 12/03/2015 16:45 EST ; Life Cycle Date: 12/03/2015 ; Life Cycle Status: Active ; Vocabulary: SNOMED CT Lumbar disc disease (SNOMED CT :0031972048 ) Name of Problem: Lumbar disc disease ; Recorder: BIANKA DUNN RN; Confirmation: Confirmed ; Classification: Medical ; Code: 5671954491 ; Contributor System: [employer] ; Last Updated: 04/01/2019 10:25 EDT ; Life Cycle Date: 04/01/2019 ; Life Cycle Status: Active ; Vocabulary: SNOMED CT Memory deficit///slow recall (SNOMED CT :9338248900 ) Name of Problem: Memory deficit///slow recall ; Recorder: BIANKA DUNN RN; Confirmation: Confirmed ; Classification: Medical ; Code: 8420466093 ; Contributor System: [employer] ; Last Updated: 04/01/2019 10:51 EDT ; Life Cycle Status: Active ; Vocabulary: SNOMED CT Numbness and tingling//right leg (SNOMED CT :5930605358 ) Name of Problem: Numbness and tingling//right leg ; Recorder: BIANKA DUNN RN; Confirmation: Confirmed ; Classification: Medical ; Code: 8124475727 ; Contributor System: [employer] ; Last Updated: 04/01/2019 10:23 EDT ; Life Cycle Date: 04/01/2019 ; Life Cycle Status: Active ; Vocabulary: SNOMED CT Obesity (SNOMED CT :8146972883 ) Name of Problem: Obesity ; Recorder: SYBIL MCGILL MD-EMR; Confirmation: Confirmed ; Classification: Medical ; Code: 0043058189 ; Contributor System: [employer] ; Last Updated: 04/23/2016 17:53 EDT ; Life Cycle Date: 04/23/2016 ; Life Cycle Status: Active ; Responsible Provider: SYBIL MCGILL MD-AVINASH; Vocabulary: SNOMED CT Pain//chronic (SNOMED CT :721218812 ) Name of Problem: Pain//chronic ; Recorder: BIANKA DUNN RN; Confirmation: Confirmed ; Classification: Medical ; Code: 620432049 ; Contributor System: [employer] ; Last Updated: 04/01/2019 10:24 EDT ; Life Cycle Date: 04/01/2019 ; Life Cycle Status: Active ; Vocabulary: SNOMED CT Right leg pain (SNOMED CT :2874024487 ) Name of Problem: Right leg pain ; Recorder: BIANKA DUNN RN; Confirmation: Confirmed ; Classification: Medical ; Code: 3477465069 ; Contributor System: [employer] ; Last Updated: 04/01/2019 10:23 EDT ; Life Cycle Date: 04/01/2019 ; Life Cycle Status: Active ; Vocabulary: SNOMED CT Sleep apnea///risk (SNOMED CT :792464098 ) Name of Problem: Sleep apnea///risk ; Recorder: BIANKA DUNN RN; Confirmation: Confirmed ; Classification: Medical ; Code: 296146328 ; Contributor System: [employer] ; Last Updated: 04/01/2019 10:37 EDT ; Life Cycle Date: 04/01/2019 ; Life Cycle Status: Active ; Vocabulary: SNOMED CT Wears glasses (SNOMED CT :857708124 ) Name of Problem: Wears glasses ; Recorder: BIANKA DUNN RN; Confirmation: Confirmed ; Classification: Medical ; Code: 295449384 ; Contributor System: [employer] ; Last Updated: 04/01/2019 10:19 EDT ; Life Cycle Date: 04/01/2019 ; Life Cycle Status: Active ; Vocabulary: SNOMED CT Diagnoses(Active) Constipation Date: 03/25/2021 ; Diagnosis Type: Reason For Visit ; Confirmation: Complaint of ; Clinical Dx: Constipation ; Classification: Medical ; Clinical Service: Emergency medicine ; Code: PNED ; Probability: 0 ; Diagnosis Code: [id number] ED Height and Weight Height Source : Stated Height Entry Format : [place] Height, Feet : 5 ft(Converted to: 152 cm, 60 Inch) Height, Inches : 4 Inch(Converted to: 0 ft 4 Inch, 10.16 cm) Clinical Height : 162.56 cm Weight Source, ED : Critical estimated dosing weight Weight Entry Format : [place] Weight, Pounds : 245 lb Clinical Dosing Weight : 111.36 kg Body Surface Area (BSA) : 2.13 m2 Body Mass Index : 42.1 kg/m2 (>HHI) [place] Body Weight (IBW) : 54.3 kg MIGEL ANDREW Rn - 03/25/2021 22:32 EDT Pain Assessment Pain Assessment : Initial assessment Pain Scale Used : 0-10 Scale MIGEL ANDREW Rn - 03/25/2021 22:32 EDT Pain Scale Intensity : 9 MIGEL ANDREW Rn - 03/25/2021 22:32 EDT Image 4 - Images currently included in the form version of this document have not been included in the text rendition version of the form. documented in this encounter Plan of Treatment Not on file documented as of this encounter Visit Diagnoses Not on filedocumented in this encounter
--- OUTSIDE RECORDS SUMMARY | 2025-07-29 11:54 | XMS_ITS | Encounter Summary ---
Author Organization [employer] ([place], [place], [place], [place]) Address [address] [place] [address] Care Team Providers Care Pressure Supervisor Name Role Phone Unavailable Primary Care Provider Unavailabl e Encounter Details Date Type Department Care Team (Late st Contact Info) Description 04/05/[address] [facility] Medicine [address] [place] [address] ProviderChano MD [address], [place] [id number] Social History Tobacco Use Types Packs/Day Years Used Date Smoking Tobacco: Never Assessed Comments Unknown Sex and Gender Information Value Date Recorded Sex Assigned at Not on file Legal Sex Female 2:07 PM CDT Gender Identity Not on file Sexual Orientation Not on file documented as of this encounter Miscellaneous Notes * Cerner Conversion Note - Chano ProviderMD - 04/05/2019 3:54 PM CDT [facility] Main OR IntraOp Summary Primary Physician: CATRACHITO THOMPSON, MD ONUR Finalized Date/Time: 04/06/19 13:07:54 Pt. Name: JANETTE ADRIENNE Ileana CalderonB./Sex: 1950 Female Med Rec #: [id number] Physician: ONUR WINSTON MD, MD Financial #: [id number] Pt. Type: O Room/Bed: 649/1 Admit/Disch: 04/05/19 06:59:00 - 04/06/19 09:48:00 Institution: [facility] IntraOp Case Attendance Entry 1 Entry 2 Entry 3 Case Attendee CATRACHITO THOMPSON, MD ROSALVA MOHR DALE ALAN, MD SIMPSON, KRISTEN, CRNA Role Performed Surgeon/Proceduralist, Anesthesiologist of OUTBOARD MOTOR TESTER/Nurse Security Solutions Engineer First Record Time In 04/05/19 15:28:00 04/05/19 15:28:00 04/05/19 15:28:00 Time Out 04/05/19 17:10:00 04/05/19 17:10:00 04/05/19 17:10:00 Procedure Lumbar Discectomy(Right) Lumbar Discectomy(Right) Lumbar Discectomy(Right) Other Attendee Superficial Wound Closed By: Last Modified By: Sheila Walters RN Poff, Janie, RN Poff, Janie, RN 04/05/19 17:11:06 04/05/19 17:11:06 04/05/19 17:11:06 Entry 4 Entry 5 Entry 6 Case Attendee Priti Campbell BRUMMETT, JAMES A. Poff, Janie, EDISON Forest Examiner Role Performed Carbonation Equipment Operator Scrub, First Surveillance Manager, First Time In 04/05/19 15:28:00 04/05/19 15:28:00 04/05/19 15:28:00 Time Out 04/05/19 17:10:00 04/05/19 17:10:00 04/05/19 17:10:00 Procedure Lumbar Discectomy(Right) Lumbar Discectomy(Right) Lumbar Discectomy(Right) Other Attendee Superficial Wound Closed By: Last Modified By: Sheila Walters RN Poff, Janie, RN Poff, Janie, RN 04/05/19 17:11:06 04/05/19 17:11:06 04/05/19 17:11:06 Entry 7 Case Attendee FRANCI CRUZ PA-INT Role Performed Physician assistant professor sculpture Time In 04/05/19 15:28:00 Time Out 04/05/19 17:10:00 Procedure Lumbar Discectomy(Right) Other Attendee Superficial Wound Closed By: Last Modified By: Sheila Walters RN 04/05/19 17:11:06 [facility] IntraOp Case Attendance Audit 04/05/19 17:11:06 Hand Candle Dipper: CARSON Modifier: CARSON 1 <+> Time Out 1 <*> Procedure Lumbar Discectomy(Right) 2 <+> Time In 2 <+> Time Out 2 <*> Procedure Lumbar Discectomy(Right) 3 <+> Time In 3 <+> Time Out 3 <*> Procedure Lumbar Discectomy(Right) 4 <+> Time In 4 <+> Time Out 4 <*> Procedure Lumbar Discectomy(Right) 5 <+> Time In 5 <+> Time Out 5 <*> Procedure Lumbar Discectomy(Right) 6 <+> Time In 6 <+> Time Out 6 <*> Procedure Lumbar Discectomy(Right) 7 <+> Time In 7 <+> Time Out 7 <*> Procedure Lumbar Discectomy(Right) [facility] IntraOp Case Times Entry 1 Patient In Room Time 04/05/19 15:28:00 Out Room Time 04/05/19 17:10:00 Anesthesia Start Time 04/05/19 15:28:00 Stop Time 04/05/19 17:10:00 Surgery / Procedure Times Start Time 04/05/19 15:54:00 Stop Time 04/05/19 17:00:00 Last Modified By: Sheila Walters RN 04/05/19 17:10:15 [facility] IntraOp Case Times Audit 04/05/19 17:10:15 Hand Candle Dipper: CARSON Modifier: CARSON <+> 1 Out Room Time <+> 1 Stop Time <+> 1 Stop Time [facility] IntraOp Cautery Entry 1 ESU Identification Cautery Type Monopolar ESU ID Number [id number] ID Type Hospital Number Cautery Settings Cut Setting 40 Coag Setting 40 Bipolar Setting 40 ESU Grounding Pad Ground Pad Type Adult Grounding Pad Site Left thigh Grounding Pad Site POSTERIOR THIGH Comment Grounding Pad Sheila Walters RN Applied By Grounding Pad Site Warm, Dry, Intact Skin Condition Before Cautery Grounding Pad Site Unchanged Skin Condition After Cautery Last Modified By: Sheila Walters RN 04/05/19 16:10:53 [facility] IntraOp Communication Entry 1 Communication To Family/Significant other Comment START Communication By Sheila Walters RN Date and Time 04/05/19 15:54:00 Last Modified By: Sheila Walters RN 04/05/19 16:09:43 [facility] IntraOp Counts Verification Entry 1 Procedure Lumbar Discectomy(Right) Count Info Count Type Sponge, Sharps, Miscellaneous Counts Verification Baseline/pre-procedure Sequence Count Results Not Applicable Counts Performed By Count Performed By CAMPBELL RIVERA (Scrub) Count Performed By Sheila Walters RN (RN) Last Modified By: Sheila Walters RN 04/05/19 16:09:16 [facility] IntraOp Counts Final Entry 1 Procedure Lumbar Discectomy(Right) Final Count Info Count Type Sponge, Sharps, Miscellaneous Counts Verification Skin Closure/end of Sequence procedure Count Results Correct, surgeon notified Counts Performed By Count Performed By CAMPBELL RIVERA (Scrub) Count Performed By Sheila Walters RN (RN) Last Modified By: Sheila Walters RN 04/05/19 17:10:27 [facility] IntraOp Counts Final Audit 04/05/19 17:10:27 Hand Candle Dipper: CARSON Modifier: [email or web address] 1 <*> Procedure Lumbar Discectomy(Right) 1 <+> Count Performed By (Scrub) 1 <+> Count Performed By (RN) [facility] IntraOp Departure from OR Entry 1 Integumentary Assessment Integumentary WDL with patient Assessment WDL specific variances Patient's Normal SURGICAL INCISION = BACK Integumentary Variance(s) Transfer/Handoff Transfer to PACU Phase I Handoff Method Phone call Handoff Reported to HOLDEN CUEVAS RN Post-op Transport Stretcher/Gurney Via Patient Transport GLENDA WILLETT CRNA, Accompanied by FRANCI CRUZ PA-INT Last Modified By: Sheila Walters RN 04/05/19 17:11:00 [facility] IntraOp Departure from OR Audit 04/05/19 17:11:00 Hand Candle Dipper: CARSON Modifier: [email or web address] <+> 1 Patient Transport Accompanied by <+> 1 Handoff Reported to [facility] IntraOp Dressing and Packing Entry 1 Type Dressing Location BACK Wound Dressing Item Other Applied By FRANCI CRUZ PA-INT Last Modified By: Sheila Walters RN 04/05/19 16:12:21 [facility] IntraOp Fire Risk Assessment Entry 1 Fire Info Surgical Site or 0- No Incision Above the Xyphoid Open O2 Source 0- No (Mask or Cannula) Available Ignition 1- Yes (ESU, Laser, Light Source) Fire Risk 1 Assessment Score Fire Score Fire Risk Yes Assessment Complete Fire Risk Sheila Walters RN Assessment Verified By Fire Risk 04/05/19 15:54:00 Assessment Verified Date/Time Fire Risk Standard Fire Yes Safety Precautions Followed Last Modified By: Sheila Walters RN 04/05/19 16:05:59 [facility] IntraOp General Case Nurse Consultant 1 Case Information OR OR 09 [facility] Case Level 1 Room Verified Yes Wound Class I - Clean Specialty SN Neurosurgery Anesthesia Type General ASA Class 3 Diagnosis Preop Diagnosis LUMBOSACRAL RADICULOPATHY, LUMBAR DISC PROLAPSE WITH RADICULOPATHY Postop Same As Preop Yes Postop Diagnosis LUMBOSACRAL RADICULOPATHY, LUMBAR DISC PROLAPSE WITH RADICULOPATHY Last Modified By: Sheila Walters RN 04/05/19 16:18:02 [facility] IntraOp General Case Data Audit 04/05/19 16:18:02 Hand Candle Dipper: CARSON Modifier: CARSON <+> 1 Room Verified 04/05/19 16:16:00 Hand Candle Dipper: CARSON Modifier: CARSON <+> 1 ASA Class <+> 1 Anesthesia Type <+> 1 Postop Same As Preop <+> 1 Preop Diagnosis <+> 1 Postop Diagnosis [facility] IntraOp Intraoperative Assessment Entry 1 Handoff Method Bedside/Face to face Valid History / Yes Physical in Chart Preoperative Yes Checklist Reviewed/Evaluated Allergies Reviewed Yes Patient is Latex No Sensitive Isolation Not applicable Precautions Noted Level of WDL with patient Consciousness (WDL specific variances = Alert, Oriented to Person, Place, and Time) Patient's Normal STATED SHE HAD Level of A STROKE YEARS AGO, Consciousness 100% BLOCKAGE OF LEFT Variance(s) CAROTID, BEEN OFF PLAVIX FOR 5 DAYS, AND CONFUSION HAS INCREASED Skin Assessment Yes Verified Present Upon IVs Arrival to OR Last Modified By: Sheila Walters RN 04/05/19 16:08:55 [facility] IntraOp Intraoperative Equipment Entry 1 Type Monitoring Equipment Equipment Oksana Suction System ID Number [id number] Setting 200 Intraop Monitoring Electrocardiogram Three lead placement (ECG) Electrode Placement Blood Pressure Non-Invasive BP Device Source Antiembolic Devices Antiembolic Devices Sequential compression device, knee high Antiembolic Device Bilateral Location Antiembolic Device [id number] ID Number Scopes Photo/Video Documentation Photo No Video No Intraop Equipment SEQUENTIAL COMPRESSION Comment DEVICES ON AND IN OPERATION PRIOR TO INDUCTION OF ANESTHESIA. Last Modified By: Sheila Walters RN 04/05/19 16:19:26 [facility] IntraOp Medication Admin Entry 1 Entry 2 Entry 3 Medication/Irrigant lidocaine 1% w/ Bacitracin 50,000 units Kenalog 40mg 1ml epinephrine 1:100,000 powder vial injection - [id number] 30ml vial - [id number] Combo Med List Time Administered 04/05/19 15:54:00 04/05/19 15:54:00 04/05/19 16:24:00 Route of LOCAL IN 1000 ML 0F IRRIGATION TOPICAL Administration Dose Dose 10 [id number] 40 Unit of Measure ml units mg Volume Administered By CATRACHITO THOMPSON, MD CATRACHITO MOHR MD, GABRIEL, MD PHILLIPS MD, MD ONUR Procedure Irrigation Irrigant Volume In Irrigant Volume Out Last Modified By: Sheila Walters RN Poff, Janie, RN Poff, Janie, RN 04/05/19 17:12:29 04/05/19 17:12:29 04/05/19 17:12:29 Entry 4 Medication/Irrigant thrombin 5000units topical powder - [id number] Combo Med List Time Administered 04/05/19 15:54:00 Route of ON GELFOAM Administration Dose Dose 5000 Unit of Measure units Volume Administered By CATRACHITO THOMPSON, MD ONUR Procedure Irrigation Irrigant Volume In Irrigant Volume Out Last Modified By: Sheila Walters RN 04/05/19 16:25:13 [facility] IntraOp Medication Admin Audit 04/05/19 17:12:29 Hand Candle Dipper: SLAVAULICES Modifier: CARSON 1 <*> Medication/Irrigant lidocaine 1% w/ epinephrine 1:100,000 30ml vial - [id number] 1 <+> Dose 2 <*> Medication/Irrigant Bacitracin 50,000 units powder vial 3 <*> Medication/Irrigant Kenalog 40mg 1ml injection - [id number] 3 <+> Route of Administration [facility] IntraOp Patient Positioning Entry 1 Procedure Lumbar Discectomy(Right) Body Position Prone Left Arm Position Secured on padded arm board Right Arm Position Secured on padded arm board Left Leg Position Elevated Right Leg Position Elevated Feet Uncrossed Yes Pressure Points Yes Checked Positioning Devices Leonid Frame, Pillows, Safety Strap, Leg(s), Arm Board, Arm Board Positioning Device BLUE arm protectors in Comments place bilateral arms. Leonid pillow in place Positioned By Sheila Walters, EDISON, CATRACHITO THOMPSON, MD ONUR, FRANCI CRUZ PA-INTTAMIE KRISTEN, CRNA Position Verified Positioning Yes Verified by Anesthesia Positioning Yes Verified by Surgeon Last Modified By: Sheila Walters RN 04/05/19 16:04:18 [facility] IntraOp Sign In Entry 1 Patient, Site, Yes Procedure Identified Surgical Consent Yes Confirmed Relevant Surgical Yes Documents Available Surgical Site Yes Marked by person performing procedure Anesthesia Machine Yes Check Completed Medication Checks Yes Completed Allergies Yes Airway Difficult Yes Airway/Aspiration Risk Difficult Yes Airway/Aspiration Intervention Equipment Available Blood Loss Risk Yes Blood Loss Yes Intervention Equipment Prepared and Ready Blood Identifiers Not applicable Verified Per Policy Hypothermia Risk No Warming Measures Yes Taken Last Modified By: Sheila Walters RN 04/05/19 15:56:54 [facility] IntraOp Sign Out Entry 1 RN Confirmation Surgical Yes Procedure(s) Identified Instrument, Sponge Yes and Sharps Counts Correct/Documented Equipment Problems Yes Documented Specimen Labeled Yes Correctly Urinary Catheter N/A Documented in IView Grier Patient Yes Recovery Concerns Reviewed with Anesthesia Provider, Surgeon and RN Grier Patient Yes Management Concerns Reviewed with Anesthesia Provider, Surgeon and RN Safety Checklist Yes Elements Complete? RN Sign Out Sheila Walters RN Signature RN Sign Out 04/05/19 17:10:00 Signature Date/Time Plan of Care Outcome - Fire Risk OUTCOME STATEMENT: Goal met Patient is free from injury related to surgical fire Plan of Care Outcome - Pt Positioning OUTCOME STATEMENT: Goal met Absence of signs and symptoms of positioning injury. Plan of Care Outcome - Skin Prep OUTCOME STATEMENT: Goal met Intraoperative care is consistent with measures to prevent infection Plan of Care Outcome - Xray/Images OUTCOME STATEMENT: Goal met Absence of observable signs or symptoms of radiation injury Plan of Care Outcome - Counts OUTCOME STATEMENT: Goal met Absence of signs and symptoms of injury related to extraneous objects Last Modified By: Sheila Walters RN 04/05/19 17:10:43 [facility] IntraOp Sign Out Audit 04/05/19 17:10:43 Hand Candle Dipper: CARSON Modifier: CARSON <+> 1 RN Sign Out Signature Date/Time [facility] IntraOp Skin Prep Entry 1 Procedure Lumbar Discectomy(Right) Prescribed Yes Pre-Surgical Prep Completed Prep Area BACK Intraop Prep Integumentary WDL Assessment WDL Prep Agents Alcohol, Chlorhexadine gluconate, DuraPrep Prep by CATRACHITO THOMPSON, MD ONUR Hair Removal Methods No hair removal performed Last Modified By: Sheila Walters RN 04/05/19 16:18:22 [facility] IntraOp Surgical Procedures Entry 1 Procedure Lumbar Discectomy Modifiers Right Additional RIGHT L3-4 DISCECTOMY Procedure Description Primary Procedure Yes Primary Surgeon CATRACHITO THOMPSON, MD ONUR Start 04/05/19 15:54:00 Stop 04/05/19 17:00:00 Anesthesia Type General Specialty SN Neurosurgery Wound Class I - Clean Last Modified By: Sheila Walters RN 04/05/19 17:10:32 [facility] IntraOp Surgical Procedures Audit 04/05/19 17:10:32 Hand Candle Dipper: CARSON Modifier: CARSON <+> 1 Stop [facility] IntraOp Temp Regulation Devices Entry 1 Temp Regulation Temperature Forced Air Warming Regulation Device device Temperature 20188 Regulation Device Serial/Unit Number Temperature Upper body Regulation Site Temperature Device 43 Setting Temperature GLENDA WILLETT CRNA Regulation Device Applied by Temperature TEMP REGULATED BY Regulation Comment ANESTHESIA Last Modified By: Sheila Walters RN 04/05/19 16:19:54 [facility] IntraOP Time Out Entry 1 Procedure to be Lumbar Discectomy(Right) Performed Time Out Time Out Pause Time 04/05/19 15:54:00 All activity Yes suspended (unless life threatening emergency) Team Verbally Correct patient Confirms Information identity, Correct side and site are marked, Consent form is present and accurate, Agreement on the procedure to be done, Correct patient position, Relevant images/results properly labeled/appropriately displayed, Confirm antibiotics have been administered, Confirm the skin prep has dried, Performed in location of procedure after prepped/draped Antibiotic Yes Prophylaxis Administered Or In Progress Within the Last 60 Minutes Beta Mitzi Yes Administered Venous Yes Thromboembolism Prophylaxis Required Anticipated Critical Events Surgeon None expected Anesthesia Provider None expected Nursing Assures Sterility of instruments Essential Imaging Yes Labeled and Displayed Last Modified By: Sheila Walters RN 04/05/19 16:06:38 Case Comments <None> Finalized By: Bobbi Mireles Document Signatures Signed By: Sheila Walters RN 04/05/19 17:12 Sheila Walters RN 04/05/19 19:04 Bobbi Mireles 04/06/19 13:07 Unfinalized History Date/Time Username Reason for Unfinalizing Freetext Reason for Unfinalizing 04/05/19 19:03 CARSON Correct Documentation 04/06/19 13:07 BANYARTN Correct Billing documented in this encounter Plan of Treatment Not on file documented as of this encounter Visit Diagnoses Not on filedocumented in this encounter
--- OUTSIDE RECORDS SUMMARY | 2025-07-29 11:54 | XMS_ITS | Encounter Summary ---
Author Organization [employer] ([place], [place], [place], [place]) Address [address] [place] [address] Care Team Providers Care Environmental Services Floor Tech Name Role Phone Unavailable Primary Care Provider Unavailabl e Encounter Details Date Type Department Care Team (Late st Contact Info) Description 02/07/2019 Transcribed Document [facility] [place] [address] [place] [address] ProviderChano MD [address] [place] [address] Social History Tobacco Use Types Packs/Day Years Used Date Smoking Tobacco: Never Assessed Comments Unknown Sex and Gender Information Value Date Recorded Sex Assigned at Not on file Legal Sex Female 2:07 PM CDT Gender Identity Not on file Sexual Orientation Not on file documented as of this encounter Miscellaneous Notes * Cerner Conversion Note - Chano Gatica MD - 02/07/2019 5:45 AM CDT [facility] [place] [address] LUDY ANTONIO :1950 Visit Time:02/07/2019 Your Visit Summary Your Care Team Admitting Physician - RASHEL GRAVES MD Attending Physician - RASHEL GRAVES MD Primary Care Physician - QUIRINO SENIOR (REF)[facility] Referring Physician - RASHEL GRAVES MD Your Diagnosis Acute right hip pain Hip pain-swelling, Hip pain-swelling Patient Portal Reminder: Be sure to sign up for the [employer] patient portal, which gives you 28/04 access to your medical information ??? including these discharge instructions ??? using your computer, smartphone, or tablet. Just go to [employer] to get started. Questions? Call . You may also obtain a copy of your Emergency Department [...] next Follow-Up Appointments Follow Up with QUIRINO (REF) NADEEN When Within 2 to 3 days Where: [address] [place], [place] [id number] [employer] (1) Allergies Avandia (CHF) NSAIDs fenofibrate metFORMIN rosiglitazone statins (Fenofibrate, Fenofibrate) Immunizations This Visit No Immunizations Found Medications What How Much When Instructions Next Dose acetaminophen-hydrocodone (Lortab 10/ 500 oral tablet) 1 Tablet(s) Oral Every 6 Hours as needed for for pain clopidogrel (Plavix 75 mg oral tablet) 1 Tablet(s) Oral Every Day duloxetine (Cymbalta 60 mg oral delayed release capsule) 1 Capsule(s) Oral Every Day (do not crush or chew) fluticasone nasal (Flonase 0.05 mg/ inh nasal spray) 2 Milano(s) Nasal Every Day as needed for Allergies furosemide (Lasix 20 mg oral tablet) 1 Tablet(s) Oral Every Day as needed for Other (See Comment) weight gain/ fluid retention insulin aspart (NovoLog) SubCutaneous Before Meals 3 times a day- sliding scale. insulin glargine (Lantus) 60 Unit(s) SubCutaneous At Bedtime lisinopril (lisinopril 40 mg oral tablet) 1 Tablet(s) Oral Every Day loratadine (loratadine 10 mg oral tablet) 1 Tablet(s) Oral Every Day metoprolol (metoprolol tartrate) 6.25 Milligram(s) Oral Two Times A Day metoprolol (Metoprolol Tartrate) 12.5 Milligram(s) Oral Every Morning multivitamin with minerals (Centrum) 1 Tablet(s) Oral Every Day multivitamin with minerals (Vitamin D with Minerals oral tablet) 1 Tablet(s) Oral Every Day potassium chloride-sodium chloride 20 Milliequivalent(s) Oral Every Day as needed for Other (See Comment) taken as needed with lasix rabeprazole (Aciphex) 20 Milligram(s) Oral Two Times A Day tramadol (Ultram 50 mg oral tablet) 2 Tablet(s) Oral Every 6 Hours as needed for for pain The home medications listed are only as [...] This Visit (last charted value for your 02/07/2019 visit) No Laboratory or Other Results This Visit Education Materials Joint Pain Joint pain, which is also called arthralgia, can be caused by many things. Joint pain often goes away when you follow your health care provider's instructions for relieving pain at home. However, joint pain can also be caused by conditions that require further treatment. Common causes of joint pain include: ??? Bruising in the area of the joint. ??? Overuse of the joint. ??? Wear and tear on the joints that occur with aging (osteoarthritis). ??? Various other forms of arthritis. ??? A buildup of a crystal form of uric acid in the joint (gout). ??? Infections of the joint (septic arthritis) or of the bone (osteomyelitis). Your health care provider may recommend medicine to help with the pain. If your joint pain continues, additional tests may be needed to diagnose your condition. Follow these instructions at home: Watch your condition for any changes. Follow these instructions as directed to lessen the pain that you are feeling. ??? Take medicines only as directed by your health care provider. ??? Rest the affected area for as long as your health care provider says that you should. If directed to do so, raise the painful joint above the level of your heart while you are sitting or lying down. ??? Do notdo things that cause or worsen pain. ??? If directed, apply ice to the painful area: ? Put ice in a plastic bag. ? Place a towel between your skin and the bag. ? Leave the ice on for 20 minutes, 2???3 times per day. ??? Wear an elastic bandage, splint, or sling as directed by your health care provider. Loosen the elastic bandage or splint if your fingers or toes become numb and tingle, or if they turn cold and blue. ??? Begin exercising or stretching the affected area as directed by your health care provider. Ask your health care provider what types of exercise are safe for you. ??? Keep all follow-up visits as directed by your health care provider. This is important. Contact a health care provider if: ??? Your pain increases, and medicine does not help. ??? Your joint pain does not improve within 3 days. ??? You have increased bruising or swelling. ??? You have a fever. ??? You lose 10 lb (4.5 kg) or more without trying. Get help right away if: ??? You are not able to move the joint. ??? Your fingers or toes become numb or they turn cold and blue. This information is not intended to replace advice given to you by your health care provider. Make sure you discuss any questions you have with your health care provider. Document Released: 09/22/2006 Document Revised: 02/21/2017 Document Reviewed: 07/04/2015 [employer] Patient Education ?? 2017 [employer]. Hip Pain Your hip is the joint between your upper legs and your lower pelvis. The bones, cartilage, tendons, and muscles of your hip joint perform a lot of work each day supporting your body weight and allowing you to move around. Hip pain can range from a minor ache to severe pain in one or both of your hips. Pain may be felt on the inside of the hip joint near the groin, or the outside near the buttocks and upper thigh. You may have swelling or stiffness as well. Follow these instructions at home: ??? Take medicines only as directed by your health care provider. ??? Apply ice to the injured area: ? Put ice in a plastic bag. ? Place a towel between your skin and the bag. ? Leave the ice on for 15???20 minutes at a time, 3???4 times a day. ??? Keep your leg raised (elevated) when possible to lessen swelling. ??? Avoid activities that cause pain. ??? Follow specific exercises as directed by your health care provider. ??? Sleep with a pillow between your legs on your most comfortable side. ??? Record how often you have hip pain, the location of the pain, and what it feels like. Contact a health care provider if: ??? You are unable to put weight on your leg. ??? Your hip is red or swollen or very tender to touch. ??? Your pain or swelling continues or worsens after 1 week. ??? You have increasing difficulty walking. ??? You have a fever. Get help right away if: ??? You have fallen. ??? You have a sudden increase in pain and swelling in your hip. This information is not intended to replace advice given to you by your health care provider. Make sure you discuss any questions you have with your health care provider. Document Released: 03/12/2011 Document Revised: 02/27/2017 Document Reviewed: 05/19/2014 [employer] Patient Education ?? 2017 [employer]. Emergency Awareness and Preventative Care STROKE is [...] Assistance with quitting is available by contacting 3-915-NLIH-NOW. This is a free resource providing counseling, support, and referral. Or you may contact your personal physician. [employer] Suicide Prevention Lifeline: The National Suicide Prevention [...] including: emergency, radiology, or pathology physicians. Patient Name:PACO LUDY LLANES I have received this information and was given the opportunity to ask questions. Patient/Field Recorder Name: Patient/Field Recorder Signature: Relationship to Patient: Clinician/Hospital Field Recorder Signature: Please Provide a Telephone Number Where You Can Be Reached: Is it Permissible To Leave a Message? Date: documented in this encounter Plan of Treatment Not on file documented as of this encounter Visit Diagnoses Not on filedocumented in this encounter
--- OUTSIDE RECORDS SUMMARY | 2025-07-29 11:54 | XMS_ITS | Encounter Summary ---
Author Organization [employer] ([place], [place], [place], [place]) Address [address] [place] [address] Care Team Providers Care Kier Operator Name Role Phone Unavailable Primary Care Provider Unavailabl e Encounter Details Date Type Department Care Team (Late st Contact Info) Description 02/07/2019 Transcribed Document [facility] [place] [facility] [place] [address] ProviderChano MD [address] [place], [place] [id number] Social History Tobacco Use Types Packs/Day Years Used Date Smoking Tobacco: Never Assessed Comments Unknown Sex and Gender Information Value Date Recorded Sex Assigned at Not on file Legal Sex Female 2:07 PM CDT Gender Identity Not on file Sexual Orientation Not on file documented as of this encounter Miscellaneous Notes * Cerner Conversion Note - Historical ProviderMD - 02/07/2019 5:43 AM CDT Electronically signed by [facility], [facility] Conversion Remote Pilot Operator Cerner at 01/23/2023 1:28 PM CDT documented in this encounter Plan of Treatment Not on file documented as of this encounter Visit Diagnoses Not on filedocumented in this encounter
--- OUTSIDE RECORDS SUMMARY | 2025-07-29 11:54 | XMS_ITS | Encounter Summary ---
Author Organization [employer] ([place], [place], [place], [place]) Address [address] [place] [address] Care Team Providers Care Furnace Cooler Name Role Phone Unavailable Primary Care Provider Unavailabl e Encounter Details Date Type Department Care Team (Late st Contact Info) Description 07/13/2019 Transcribed Document [facility] [place] [facility] [place] [address] ProviderChano MD [address] [id number] Social History Tobacco Use Types Packs/Day Years Used Date Smoking Tobacco: Never Assessed Comments Unknown Sex and Gender Information Value Date Recorded Sex Assigned at Not on file Legal Sex Female 2:07 PM CDT Gender Identity Not on file Sexual Orientation Not on file documented as of this encounter Miscellaneous Notes * Cerner Conversion Note - Historical ProviderMD - 07/13/2019 9:11 AM CDT Patient: LUDY ANTONIO Age: 68 Years Sex: Female : 1950 Chief Complaint pt had back surgery (L3-L4) apx 1 month ago, nausea but no vomiting, back pain 07/15. took 10mg oxycodone at 1330 today. History of Present Illness Patient was interviewed then daughter and were interviewed separately. Patient exhibits confusion about her current situation. 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 She vaguely understands she had back surgery but became tearful and claimed she felt pushed into it. She minimized her physical pain and dysfunction prior to the surgery. She claimed she was taking too many medications and wondered whether she should be on BP meds. 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 D and H report that patient had a lifelong problem with mood instability and irritability which got much worse since her CVA 7 years ago. Since then she is aggressive and threatening on a regular basis. Her cognition has never recovered from the stroke and she has been unsafe to drive and has handled no finances. She has refused to seek any mental health treatment in the past 15 years. She was prescribed Cymbalta for chronic pain. 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 I discussed with her and the family the possible benefit of Depakote for the irritability related to her CVA. She was initially worried but after further discussion said she would try it. Family is agreeable with the plan. They say she is unable to come home with H now bc of her ongoing aggressive behavior. They are interested in seeking guardianship. 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 Past Psychiatric History Past Diagnoses: Unknown Inpatient Treatments: Outpatient Treatments: Current Outpatient Provider: Prior Suicide Attempts: Prior Psychiatric Medications: refused meds Substance Abuse History details:(include substance, age at first use, age at problematic use, last use, amount currently being used, amount of most active use, sobriety, severe withdrawal symptoms) NONE REPORTED Physical Exam Vitals & Measurements T: 36.6 ??C TMIN: 36.6 ??C TMAX: 36.7 ??C HR: 65(Monitored) RR: 16 BP: 179/77 SpO2: 95% Mental Status Exam Speech- meandering Motor- WNL Mood- i dont know affect- Irritable TC- no delusions, no AVH TP- concrete, confused Insight- impaired Judgment- questionable Assessment/Plan 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 Continue Seroquel 6.25mg BID and increase as necessary to 50mg BID. Patient has not demonstrated the capacity to make medical decisions. She is a candidate for emergency guardianship. Hold: (X)None (_)MIW (_) [address] (until ) (_)Initiate a 72 Hour Hold if demands to leave or when transferred Plan discussed with Patient: (_)Yes (_)No 1:1 Sitter:(_)None (X)Present (_) Needed (_)No psychiatric sitter needed (_) NA Inpatient psychiatric admission: (_) Needed (X) Not needed (_)Assessing (_) NA Medications Inpatient Colace, 100 mg= 1 Cap, Oral, BID Cymbalta, 60 mg= 2 Cap, Oral, At Bedtime DuoNeb 0.5 mg-2.5 mg/3 mL inhalation solution, 3 mL, Nebulized Inhalation , RT_Q6H, PRN famotidine, 20 mg= 1 Tab, Oral, BID Flonase, 1 Puff, Nasal, Daily formoterol-mometasone 5 mcg-200 mcg/inh inhalation aerosol, 2 Puff, Inhalation, BID Haldol, 2 mg= 0.4 mL, IV Push, Q8H, PRN insulin lispro sliding scale, Scale A:, SubCutaneous, AC and at Bedtime Lantus, 20 [...] mg= 2 Tab, Oral, Q6H, PRN Rocephin Senna S, 1 Tab, Oral, Daily SEROquel, 6.25 mg= 0.25 Tab, Oral, BID Tylenol, 650 mg= 2 Tab, Oral, Q4H, PRN Valium, 5 mg= 1 Tab, Oral, Q6H, PRN vancomycin + Sodium Chloride 0.9% intravenous solution 250 mL Zofran, 4 mg= 2 mL, IV Push, Q4H, PRN Home Aciphex, 20 mg, Oral, BID Advair Diskus 250 mcg-50 mcg inhalation powder, 1 Puff, Inhalation, Daily, PRN Centrum, 1 Tab, Oral, Daily Cymbalta 60 mg oral delayed release capsule, 60 mg= 1 Cap, Oral, At Bedtime Flonase 0.05 mg/inh nasal spray, 2 Mullins, Nasal, Daily Lantus, 60 Units, SubCutaneous, At Bedtime lisinopril 40 mg oral tablet, 40 mg= 1 Tab, Oral, At Bedtime loratadine 10 mg oral tablet, 10 mg= 1 Tab, Oral, At Bedtime metoprolol tartrate, 6.25 mg, Oral, At Bedtime NovoLog, SubCutaneous, zzTIDAC oxyCODONE 10 mg oral tablet, 10 mg= 1 Tab, Oral, Q6H, PRN potassium chloride-sodium chloride, 20 mEq, Oral, Daily, PRN Ultram 50 mg oral tablet, 100 mg= 2 Tab, Oral, Q6H, PRN Vitamin D3, 98867 Int Units, Oral, See Comment Medications Confirmed Yes, reviewed (_) / Unable to confirm (_) Allergies Avandia (CHF) NSAIDs fenofibrate metFORMIN statins (Fenofibrate, Fenofibrate) Lab Results JUL 11 02:33 140 104 14 / H 248 4.2 31 0.90 \ JUL 12 02:51 \ 11.5 / 8.4 263 / 35.7 \ documented in this encounter Plan of Treatment Not on file documented as of this encounter Visit Diagnoses Not on filedocumented in this encounter
--- OUTSIDE RECORDS SUMMARY | 2025-07-29 11:54 | XMS_ITS | Encounter Summary ---
Author Organization [employer] ([place], [place], [place], [place]) Address [address] [place] [address] Care Team Providers Care Gauge And Weigh Machine Adjuster Name Role Phone Unavailable Primary Care Provider Unavailabl e Encounter Details Date Type Department Care Team (Late st Contact Info) Description 07/13/2019 Transcribed Document [facility] [place] [address] ProviderChano MD [address] [phone] Social History Tobacco Use Types Packs/Day Years Used Date Smoking Tobacco: Never Assessed Comments Unknown Sex and Gender Information Value Date Recorded Sex Assigned at Not on file Legal Sex Female 2:07 PM CDT Gender Identity Not on file Sexual Orientation Not on file documented as of this encounter Miscellaneous Notes * Cerner Conversion Note - Historical ProviderMD - 07/13/2019 12:19 PM CDT Patient: LUDY ANTONIO Age: 68 Years Sex: Female : 1950 Subjective Pt with history of cognitive and behavioral problems, some delirium after recent surgery. Review of Systems no change except as in Subjective Physical Exam Eyes, ENT-negative Pulmonary clear Cardiac without murmur No Carotid bruit Mental Status: normal Orientation to time place person, Attention poor, Speech naming, repetition, spontaneous, Language, memory recent and remote, loose associations, bizarre content Cranial Nerves: II through XII intact and symmetric Motor: Strength 5/5 bilateral, normal tone and mass Sensory: Normal to light touch, pain, proprioception Reflexes symmetric, toes down Cerebellar: Normal FF movements, no abnormal movements Gait: not tested due to pt condition Psychiatric: negative Musculoskeletal: negative Lab N B12 Imaging CT L parietal encephalomalacia Assessment 68yo female with pre-existing behavioral issues, with problems post surgery. She is being seen by Psychiatry. There does not appear to be any new Neurological issues and I will sign off for Neurology. Let me know if you have any questions or new problems arise. Electronically signed by Julian Wheeler Conversion [employer] Cerner at 01/23/2023 1:18 PM CDT documented in this encounter Plan of Treatment Not on file documented as of this encounter Visit Diagnoses Not on filedocumented in this encounter
--- OUTSIDE RECORDS SUMMARY | 2025-07-29 11:54 | XMS_ITS | Encounter Summary ---
Author Organization [employer] ([place], [place], [place], [place]) Address [address] [place] [address] Care Team Providers Care Anodiser Name Role Phone Unavailable Primary Care Provider Unavailabl e Encounter Details Date Type Department Care Team (Late st Contact Info) Description 04/05/2019 Transcribed Document [facility] [place] [address] [place] [address] ProviderChano MD [address], [place] [id number] Social History Tobacco Use Types Packs/Day Years Used Date Smoking Tobacco: Never Assessed Comments Unknown Sex and Gender Information Value Date Recorded Sex Assigned at Not on file Legal Sex Female 2:07 PM CDT Gender Identity Not on file Sexual Orientation Not on file documented as of this encounter Miscellaneous Notes * Cerner Conversion Note - Chano ProviderMD - 04/05/2019 11:50 PM CDT Admission History, Adult Entered On: 04/05/2019 23:53 EDT Performed On: 04/05/2019 23:50 EDT by Eriberto Crawley Rn-[place] Advance Directive Patient has Advance Directive *Q : No, patient refuses Advance Directive information Eriberto Crawley Rn-Resource - 04/05/2019 23:50 EDT Anesthesia/Transfusion History Family History of Anesthesia Reaction : No prior transfusion(s) Blood Transfusion Acceptable to Patient : Yes Transfusion History : Prior anesthesia without reaction Family History of Anesthesia Reaction : None Eriberto Crawley Rn-Resource - 04/05/2019 23:50 EDT Functional Assessment Living Situation : Home JAMA Hx Falls Immediate/Within 3 Months : No Current Home Treatments : None Eriberto Crawley Rn-Resource - 04/05/2019 23:50 EDT General Info Preferred Name : Adrienne Legal Guardian : No Support Person/Patient Deputy Director : No Support Person/Pt Rep Name : jonelle Savage - spouse Support Person/Pt Rep Contact Information : [phone] Want Family/Rep/Phys Notified of Admit : No Emergency Contact #1 : jonelle Emergency Contact #1 cell Emergency Contact #1 Relationship : spouse Emergency Contact #2 : none Emergency Contact #2 Phone Number : none Emergency Contact #2 Relationship : none Primary Language : Malian Preferred Communication Mode : Verbal Communication Barrier : None Eriberto Crawley Rn-Resource - 04/05/2019 23:50 EDT Fall Risk Scales ABCs Fall Injury Risk Identification : Surgery ABC Fall Injury Risk : Moderate to high injury risk JAMA Hx Falls Immediate/Within 3 Months : No Jama Secondary Diagnosis : Yes JAMA Use of Ambulatory Aid : Crutches/Cane/Walker JAMA IV Therapy or IV Access : Yes Jama Gait/Transferring : Weak Jama Mental Status : Oriented to own ability Jama Fall Risk Score : 60 JAMA Fall Scale Risk Level : 46 or > High Risk [place] Fall Interventions : Adequate lighting, Assistive devices within reach, Bed in low position, Call device within reach, Fall prevention handout/education per facility policy, Hourly comfort/safety rounds, Non-slip footwear, Personal items within reach, Reinforced to call for assistance before getting out of bed, Room free of clutter/spills, Upper side-rails up, Wheels locked, Wires/Cords secured Barriers to Learning : Other: memory deficit due to stroke///slow recall Eriberto Crawley Rn-Resource - 04/05/2019 23:50 EDT Health Histories Smoking Status : Former smoker, quit more than 30 days ago Smokeless Tobacco Status : Never Eriberto Crawley Rn-Resource - 04/05/2019 23:50 EDT Social History (As Of: 04/05/2019 23:53:08 EDT) Tobacco: Use in Last 12 Months: Cigarettes. Smoking Status Former smoker. Years of Use: 1. Packs/Tins Daily: 0.5. Last Used: teenager. (Last Updated: 06/24/2013 07:28:56 EDT by MIGEL GARCIA, EDISON) Alcohol: Use in Last 12 Months: No. (Last Updated: 06/24/2013 07:29:08 EDT by MIGEL GARCIA EDISON) Substance Abuse: Drug Use Hx: No. (Last Updated: 06/24/2013 07:29:03 EDT by MIGEL GARCIA, RN) Home/Environment: Lives with Spouse. Living situation: Home with assistance. (Last Updated: 07/17/2014 00:15:22 EDT by KATIE TRINIDAD, ED Nurse) Employment/School: Retired, Previous employment/school: [employer]. (Last Updated: 07/17/2014 00:15:13 EDT by KATIE TRINIDAD, ED Nurse) Height and Weight, Clinical Dosing Height Source : Measured Height Entry Format : [place] Height, Feet : 5 ft(Converted to: 152 cm, 60 Inch) Height, Inches : 5 Inch(Converted to: 0 ft 5 Inch, 12.70 cm) Clinical Height : 165.1 cm Weight Source : Standing scale Weight Entry Format : [place] Clinical Dosing Weight : 112.27 kg Weight, Pounds : 247 lb Body Surface Area (BSA) : 2.17 m2 Body Mass Index : 41.2 kg/m2 (>HHI) [place] Body Weight : 57 kg Eriberto Crawley Rn-Resource - 04/05/2019 23:50 EDT Infectious Disease History Infectious Disease History : Chicken pox/Shingles, Measles, Mumps Fever/Chills Last 48 Hours : No Travel To Regions with Travel Advisories : No Travel Outside [place] Within Last 30 Days : No Contact With Traveler to Advisory Region : No Tuberculosis Symptoms : None Eriberto Crawley Rn-Resource - 04/05/2019 23:50 EDT Influenza Vaccine Asmt, Adult Previous Vaccines from Immunization Schedule : No qualifying data available. Influenza Immunization, Current Season : No Inactivated Flu Vaccine Contraindications : No contraindications to inactivated influenza vaccine Transplant Workup/Recent Transplant : No Order for Influenza Vaccine : Declined Vaccination Eriberto Crawley Rn-Resource - 04/05/2019 23:50 EDT Pneumococcal Vaccine Previous Vaccines from Immunization Schedule : No qualifying data available. Pneumonia Immunization Received : Yes Eriberto Crawley Rn-Toyin - 04/05/2019 23:50 EDT Nutrition History Adaptive Feeding Equipment : Regular Eating Poorly Due to Decreased Appetite : No Unplanned Weight Loss in Past 3-6 Months : No Malnutrition Screening Tool Total(mal) : 0 Malnutrition Screening Tool Risk Level : Patient not at risk Eriberto Crawley Rn-Resource - 04/05/2019 23:50 EDT Psychosocial History Do You Have a History of the Following? : Patient denies history Currently in Unsafe Situation : No Tried to Harm Yourself in the Past? : No Thoughts of Harming/Killing Yourself : No Eriberto Crawley Rn-Resource - 04/05/2019 23:50 EDT Sleep Apnea Risk Assmt Hx of Obstructive Sleep Apnea Diagnosis : No Snore Loudly : No Tired, Fatigued, or Sleepy During Day : Yes Observed Stopping Breathing During Sleep : No Have/Are Being Treated for Hypertension : Yes BMI Greater Than 35 kg/m2 : Yes Age over 50 Years Old : Yes Neck Circumference Greater Than 40 cm : Yes Gender Male : No STOP-BANG Sleep Apnea Risk Level Score : 5 Eriberto Crawley Rn-Resource - 04/05/2019 23:50 EDT Valuables and Belongings Valuables and Belongings : Clothing, Personal items Clothing : Common streetwear Clothing Disposition : Bedside Personal Items : Cell phone Personal Items Disposition : Bedside Eriberto Crawley Rn-Resource - 04/05/2019 23:50 EDT documented in this encounter Plan of Treatment Not on file documented as of this encounter Visit Diagnoses Not on filedocumented in this encounter
--- OUTSIDE RECORDS SUMMARY | 2025-07-29 11:54 | XMS_ITS | Encounter Summary ---
Author Organization [employer] ([place], [place], [place], [place]) Address [address] [place] [address] Care Team Providers Care Electrical Electronics Technician Name Role Phone Unavailable Primary Care Provider Unavailabl e Encounter Details Date Type Department Care Team (Late st Contact Info) Description 07/13/2019 Transcribed Document [facility] [place] Family Medicine [address] [place] [address] ProviderChano MD [address] [place], [place] [phone] Social History Tobacco Use Types Packs/Day Years Used Date Smoking Tobacco: Never Assessed Comments Unknown Sex and Gender Information Value Date Recorded Sex Assigned at Not on file Legal Sex Female 2:07 PM CDT Gender Identity Not on file Sexual Orientation Not on file documented as of this encounter Miscellaneous Notes * Cerner Conversion Note - Historical ProviderMD - 07/13/2019 1:36 PM CDT Attempt to Treat, OT Entered On: 07/13/2019 15:21 EDT Performed On: 07/13/2019 13:36 EDT by BOB BAUER OTR/Rob Attempt to Treat Unable to Treat Due To : Patient Refusal Inability to Treat Comment : Pt on phone with her BEATRIZ and not willing to call her at a later time. Pt states it will take 30 minutes or more. Educated pt that therapy cannot keep returning. Sitter present. BOB BAUER OTR/Rob - 07/13/2019 15:20 EDT documented in this encounter Plan of Treatment Not on file documented as of this encounter Visit Diagnoses Not on filedocumented in this encounter
--- OUTSIDE RECORDS SUMMARY | 2025-07-29 11:54 | XMS_ITS | Encounter Summary ---
Author Organization [employer] ([place], [place], [place], [place]) Address [address] [place] [address] Care Team Providers Care Shrimp Trawler Captain Name Role Phone Unavailable Primary Care Provider Unavailabl e Encounter Details Date Type Department Care Team (Late st Contact Info) Description 02/07/2019 Transcribed Document [facility] [place] Family Medicine [address] [place] [address] ProviderChano MD [address] [place] [address] Social History Tobacco Use Types Packs/Day Years Used Date Smoking Tobacco: Never Assessed Comments Unknown Sex and Gender Information Value Date Recorded Sex Assigned at Not on file Legal Sex Female 2:07 PM CDT Gender Identity Not on file Sexual Orientation Not on file documented as of this encounter Miscellaneous Notes * Cerner Conversion Note - Chano Gatica MD - 02/07/2019 5:47 AM CDT [facility] [place] [address] LUDY ANTONIO :1950 Visit Time:02/07/2019 Your Visit Summary Your Care Team Admitting Physician - RASHEL GRAVES MD Attending Physician - RASHEL GRAVES MD Primary Care Physician - QUIRINO SENIOR (REF)[facility] Referring Physician - RASHEL GRAVES MD Your Diagnosis Acute right hip pain Hip pain-swelling, Hip pain-swelling Patient Portal Reminder: Be sure to sign up for the [employer] patient portal, which gives you 28/04 access to your medical information ??? including these discharge instructions ??? using your computer, smartphone, or tablet. Just go to worldhistoryproject to get started. Questions? Call . You [...] When Within 2 to 3 days Where: [address] [place], [place] [id number] [employer] (1) Allergies Avandia (CHF) NSAIDs fenofibrate metFORMIN [...] (Flonase 0.05 mg/ inh nasal spray) 2 [place](s) Nasal Every Day as needed for Allergies [...] 09/22/2006 Document Revised: 02/21/2017 Document Reviewed: 07/04/2015 [employer] Patient Education ?? 2017 [employer]. Hip Pain Your hip is the joint [...] 03/12/2011 Document Revised: 02/27/2017 Document Reviewed: 05/19/2014 [employer] Interactive Patient Education ?? 2017 [employer]. Emergency Awareness and Preventative Care STROKE is [...] Assistance with quitting is available by contacting 1-196-YHLP-NOW. This is a free resource providing counseling, support, and referral. Or you may contact your personal physician. [employer] Suicide Prevention Lifeline: The National Suicide Prevention [...] was given the opportunity to ask questions. Patient/Poleyard Supervisor Name: Patient/Poleyard Supervisor Signature: Relationship to Patient: Clinician/Hospital Poleyard Supervisor Signature: Please Provide a Telephone Number Where You Can Be Reached: Is it Permissible To Leave a Message? Date: documented in this encounter Plan of Treatment Not on file documented as of this encounter Visit Diagnoses Not on filedocumented in this encounter
--- OUTSIDE RECORDS SUMMARY | 2025-07-29 11:54 | XMS_ITS | Encounter Summary ---
Author Organization [employer] ([place], [place], [place], [place]) Address [address] [place] [address] Care Team Providers Care Executive Pastry Chef Name Role Phone Unavailable Primary Care Provider Unavailabl e Encounter Details Date Type Department Care Team (Late st Contact Info) Description 12/04/2018 Transcribed Document [facility] [place] Family Medicine [address] [place] [address] ProviderChano MD [address] [phone] Social History Tobacco Use Types Packs/Day Years Used Date Smoking Tobacco: Never Assessed Comments Unknown Sex and Gender Information Value Date Recorded Sex Assigned at Not on file Legal Sex Female 2:07 PM CDT Gender Identity Not on file Sexual Orientation Not on file documented as of this encounter Miscellaneous Notes * Cerner Conversion Note - Historical ProviderMD - 12/04/2018 1:49 PM POSITION DESCRIPTION MANAGER ED Discharge Entered On: 12/04/2018 13:49 EST Performed On: 12/04/2018 13:49 EST by Minerva Mcconnell residential living assistant Process Patient Disposition : Discharge Personal Belongings With Patient : Yes Patient Education Completed : Yes Teaching Evaluation : Verbalizes understanding IV Discontinued : Not applicable Nursing Documentation Completed : Yes Minerva Mcconnell RN - 12/04/2018 13:49 EST ED Discharge Discharge To : Home with ambulatory/outpatient follow-up Mode Of Departure : Ambulatory, Wheelchair with adult Accompanied By : Spouse Discharge Instructions Reviewed With, Opportunity For Questions Given : Patient, Spouse Prescriptions Given to Patient : No Minerva Mcconnell RN - 12/04/2018 13:49 EST Electronically signed by Summer [facility] Conversion Engineer [employer] at 01/23/2023 1:24 PM CDT documented in this encounter Plan of Treatment Not on file documented as of this encounter Visit Diagnoses Not on filedocumented in this encounter
--- OUTSIDE RECORDS SUMMARY | 2025-07-29 11:54 | XMS_ITS | Encounter Summary ---
Author Organization [employer] ([place], [place], [place], [place]) Address [address] [place] [address] Care Team Providers Care Program Support Clerk Name Role Phone Unavailable Primary Care Provider Unavailabl e Encounter Details Date Type Department Care Team (Late st Contact Info) Description 12/04/2018 Transcribed Document [facility] [place] [address] [place] [address] ProviderChano MD [address], [place] [phone] Social History Tobacco Use Types Packs/Day Years Used Date Smoking Tobacco: Never Assessed Comments Unknown Sex and Gender Information Value Date Recorded Sex Assigned at Not on file Legal Sex Female 2:07 PM CDT Gender Identity Not on file Sexual Orientation Not on file documented as of this encounter Miscellaneous Notes * Cerner Conversion Note - Chano ProviderMD - 12/04/2018 11:53 AM [facility] FLOOR ED Assessment Entered On: 12/04/2018 13:23 EST Performed On: 12/04/2018 12:00 EST by ANKIT SONI RN ED Quick Look Assessment Level of Consciousness : Alert, Awake Affect/Behavior : Appropriate, Calm, Cooperative Orientation : Oriented x 4 Skin Temperature : Warm Skin Description : Dry ANKIT SONI RN - 12/04/2018 13:21 EST ED General-Functional Assess Information Obtained From : Patient Preferred Communication Mode : Verbal Communication Barrier : None Primary Language : Welsh Any Spiritual/Cultural Needs or Requests : No Currently in Unsafe Situation : No ANKIT SONI RN - 12/04/2018 13:21 EST Social Habits Smoking Status : Former smoker, quit more than 30 days ago Smokeless Tobacco Status : Never Desires Tobacco Cessation Calc : 0 ANKIT SONI RN - 12/04/2018 13:21 EST Social History (As Of: 12/04/2018 13:23:50 EST) Tobacco: Use in Last 12 Months: [...] TRINIDAD, ED Nurse) Employment/School: Retired, Previous employment/school: [employer]. (Last Updated: 07/17/2014 00:15:13 EDT by KATIE TRINIDAD, ED Nurse) Musculoskeletal Musculoskeletal Assessment WDL : WDL with exceptions (Comment: pt presents with left leg pain, pt denies any injury states unable to bear weight, pt states sensation to foot has changed. pt pivoted to bed from wheelchair without difficultly. pt has positive pulses noted. [ANKIT SONI RN - 12/04/2018 13:21 EST] ) ANKIT SONI RN - 12/04/2018 13:21 EST documented in this encounter Plan of Treatment Not on file documented as of this encounter Visit Diagnoses Not on filedocumented in this encounter
--- OUTSIDE RECORDS SUMMARY | 2025-07-29 11:54 | XMS_ITS | Data Portability ---
Author Organization [place] [facility] [place] [facility] [place] AD[place] Address [address] [place] [id number] Assessment Encounter Date Assessment Date Assessment LastModified by Organization Details LastModified Time 08/19/2022 08/19/2022 Telehealth visit is being conducted from [address] [facility] [place] [address]. This was a real-time clinical encounter over [[employer] ]. Consent was obtained to engage in telemedicine service. Greater than 50% of the time spent was devoted to counseling and coordinating care including review of records, pertinent lab data and studies as well as discussing diagnostic evaluation and workup, plan therapeutic interventions and future disposition of care. This included any additional research needed to obtain further information in formulating the plan of care for this patient. This includes counseling with the patient about their disease and diagnosis, specifically as below. Patient was also counseled on the precaution of COVID-19 including importance of hand washing and social distancing. WE SPECIFICALLY DISCUSSED RISK FACTORS FOR COVID-19, INCLUDING AGE>60, HEART OR LUNG DISEASE, DIABETES, IMMUNOSUPPRESSION, AND TRAVEL. WE ALSO DISCUSSED THAT NSAIDS MAY WORSEN COVID-19 INFECTION SYMPTOMS AND THAT THEY SHOULD NOT BE USED TO TREAT COVID-19 SYMPTOMS. PATIENT WAS ALSO INFORMED THAT CORTICOSTEROIDS IN ANY FORM (ORAL OR INJECTABLE) WILL DECREASE IMMUNE RESPONSE AND MAY INCREASE RISK OF COVID-19 INFECTION AND SYMPTOMS. THIS ENCOUNTER WAS PERFORMED A TELEMEDICINE VISIT VIA SECURE TWO-WAY VIDEO AND AUDIO TO MINIMIZE RISK AND TRANSMISSION OF COVID-19. THE PATIENT AND WE UNDERSTAND THE LIMITATIONS OF A TELEMEDICINE VISIT INCLUDING INABILITY TO CHECK REFLEXES, POSSIBLY MISSING SUBTLE FINDINGS ON PHYSICAL EXAM. ALTERNATIVE OPTIONS WERE PRESENTED TO THE PATIENT AND THE PATIENT ELECTED TO PROCEED WITH THE VISIT. Patient presents via televideo today for medication refill. The patient recently has had significant comorbidities including a stroke on May 10 and was admitted at for 3-4 days and then was transferred to [facility] for 3 weeks. Since the CVA, she has been participating in PT which has been helpful in improving her strength and function of the LLE/LUE. She continues to work on balance and gait as well. She reports still recovering from the stroke and having increased pain. Patient reports working with speech therapy regarding her slurred speech and she is doing well with that. As the current medication regimen is managing pain and well-tolerated, allowing her to remain functional, I will refill for 1 month. Pain Psychology referral has been completed, Dr. Pierson deemed the patient to be a good candidate for pain pump therapy. I further discussed the therapy with the patient including the risks/benefits and post operative expectations. Patient verbalized understanding however, is not wanting to proceed at this time. I advised the patient that ITPP therapy will be discussed again at a later visit as it will be a good option for long-term pain management given her history of long-term opioid use. Patient verbalized understanding. - Medication for 1 month: Hydrocodone APAP 10-325mg Q12 #60, Tramadol 50mg Q12 #60 - Will discuss ITPP therapy further at later visit - Follow up in 1 month for medication refill [email or web address] Not available 08/20/2022 10:36:16 09/09/2022 09/09/2022 Patient presents to the clinic today for medication refill. The patient recently has had significant comorbidities including a stroke on May 10 and was admitted at for 3-4 days and then was transferred to [facility] for 3 weeks. Since the CVA, she has been participating in PT which has been helpful in improving her strength and function of the LLE/LUE. She continues to work on balance and gait as well. She reports still recovering from the stroke and having increased pain and continued weakness. I discussed medication regimen is advised the patient that long-term, high dose medication will not be an option for pain management and that medication will be tapered to a safer but therapeutic level while managing pain through injection therapy and other treatment modalities. Patient verbalized understanding. UDS was obtained today and the patient tested positive for THC. When asked about marijuana use, the patient reported utilizing CBD gummies for pain management. I advised that patient that UDS will be sent for confirmation and discussed further at follow up. Patient verbalized understanding. I will decrease patient's Hydrocodone APAP 10-325mg to 7.5-325mg Q12 for 2 weeks while awaiting UDS confirmation. I will refill her Tramadol at current dosing for 2 weeks as well. Pain Psychology referral has been completed, Dr. Pierson deemed the patient to be a good candidate for pain pump therapy. I further discussed the therapy with the patient including the risks/benefits and post operative expectations. Patient verbalized understanding however, is not wanting to proceed at this time. I advised the patient that ITPP therapy will be discussed again at a later visit as it will be a good option for long-term pain management given her history of long-term opioid use. Patient verbalized understanding. - Medication for 2 weeks: Hydrocodone APAP 7.5-325mg Q12 #30, Tramadol 50mg Q12 #30 - Discussed medication taper - UDS obtained today (+THC) - sent for confirmation - Will discuss ITPP therapy further at later visit - Follow up in 2 weeks to discuss UDS confirmation [email or web address] Not available 09/09/2022 17:04:01 09/23/2022 09/23/2022 Patient presents to the clinic today for medication refill. The patient recently has had significant comorbidities including a stroke on May 10 and was admitted at for 3-4 days and then was transferred to [facility] for 3 weeks. Since the CVA, she has been participating in PT which has been helpful in improving her strength and function of the LLE/LUE. She continues to work on balance and gait as well. She reports still recovering from the stroke and having increased pain and continued weakness. I discussed medication regimen is advised the patient that long-term, high dose medication will not be an option for pain management and that medication will be tapered to a safer but therapeutic level while managing pain through injection therapy and other treatment modalities. Patient verbalized understanding. UDS was obtained During the last visit and the patient tested positive for THC. When asked about marijuana use, the patient reported utilizing CBD gummies for pain management. I advised that patient that UDS will be sent for confirmation and discussed further at follow up. Patient verbalized understanding. I reviewed the UDS confirmation and patient had a carb Oxy THC of 8 and since these at trace amounts of THC it confirms that the patient's THC is probably from the CBD oil. I did advised the patient to bring the bottle to me so that I can record which company she is using and what she is using. the patient's UDS also had oxazepam and temazepam which are metabolites of diazepam. I reviewed the patient's Agueda and she did not have a prescription of diazepam in the last 1 year and I discussed with the patient she reports that approximately 2 years back she was given diazepam and she takes that when she has and she is intermittently. I did advised the patient that she needs to talk to her primary care physician and get an updated prescription if it all he plans to continue the same with her. I will go ahead and refill her medication for 2 months. Pain Psychology referral has been completed, Dr. Pierson deemed the patient to be a good candidate for pain pump therapy. I further discussed the therapy with the patient including the risks/benefits and post operative expectations. Patient verbalized understanding however, is not wanting to proceed at this time. I advised the patient that ITPP therapy will be discussed again at a later visit as it will be a good option for long-term pain management given her history of long-term opioid use. Patient verbalized understanding. - Medication for 2 Months: Hydrocodone APAP 7.5-325mg Q12 #60, Tramadol 50mg Q12 #60 - Discussed medication taper - UDS confirmation reviewed and presence of trace amounts of THC due to CBD oil. - Will discuss ITPP therapy further at later visit - Follow up in 2 Months for medication refill and for the taper [email or web address] Not available 09/25/2022 07:57:43 05/17/2024 05/17/2024 Mrs. Savage was referred from Dr. Murray for management of chronic pain. Patient reports that she has a complicated pain history, noting that she has had the pain for many years and it progressively got to the point where she had lumbar spine surgery >2 years ago. After the surgery there was concern of a spinal infection so another surgery was completed that revealed no infection. Patient was originally seen by Dr. Wu who was last seen September 23, 2022 where she was receiving prescription based medication. The plan was to work her up for possible intrathecal pump implant for intractable back pain, but the patient did not want to pursue this option wanted to continue oral medications instead. Since then, patient has had multiple significant events that required multiple hospitalizations and and frequent emergency room visits. she also has been getting her pain medications from different provider named Jack Colon. Followed up with Dr. Pierson who deemed her a good candidate for ITPP therapy, she no longer wants to pursue this option at this time. Pain is rated 10/10 today. her pain is mostly in the back with referred symptoms to the hip. She is always in distress because she can not get control of her symptoms. Her who recently had a heart catheterization is unable to always provide support physically secondary to his recent heart attack. based on my history and physical today, patient seems to be having recurrent lumbar radicular, lumbar spondylosis, hip osteoarthritis pain, post stroke syndrome related pain, and neuropathic pain. Patient is a very complex history with multiple origins of pain. Do not think be prescribing medication would be the appropriate thing to do at this time. Patient is wanting to pursue injections and interventions ultimately. I discussed that I need to know exactly what the diagnosis is so I have decided to pursue getting a stat lumbar MRI to look for any signs for worsening or progressing Spinal cord compression. I do think ultimately that she would be a great intrathecal pump candidate if she is willing to undergo this therapy . To have the ultimate results of intrathecal therapy she would need to be willing to wean down off her current medication to have the best outcome. Patient will follow up once the MRI is done to go over the results and discuss next best steps. Previously seen by pain Psychology, Dr. Pierson, who deemed the patient to be a good candidate for pain pump therapy. I [email or web address] Not available 05/19/2024 16:21:08 Plan of Treatment Reminders Order Date Submit Date Provider Last Modified By Organization Details Last Modified Time Details Appointments None recorded. Lab drug screen, urine 2021 022 [facility] [place], [place], [address], 09:44:52 Referral None recorded. Procedures None recorded. Surgeries None recorded. Imaging MRI, lumbar spine, w/o contrast - hx of claustrop hobia. needs open MRI [address], [address], [address], [place], [address], 4 10:02:13 Medication Orders tramadol 50 mg tablet 2021 022 [id number], [address] [place], [address], 4 14:44:39 hydrocodo ne 7.5 mg-acetam inophen 325 mg tablet 2021 022 [email or web address] [id number], [address] [place], [address], 4 14:43:54 hydrocodo ne 7.5 mg-acetam inophen 325 mg tablet 2021 022 [email or web address] [id number], [address] [place], [address], 4 14:43:54 tramadol 50 mg tablet 2021 022 [id number], [address] [place], [address], 4 14:44:39 hydrocodo ne 7.5 mg-acetam inophen 325 mg tablet 2021 022 [email or web address] [id number], [address] [place], [address], 4 14:43:54 hydrocodo ne 10 mg-acetam inophen 325 mg tablet 2021 022 [email or web address] [id number], [facility] [place], [address], 4 14:43:44 tramadol 50 mg tablet 2021 022 [email or web address] [id number], [address] [place], [address], 4 14:44:39 Patient TargetsNo targets recorded. Patient Instructions Encounter Date Encounter Id Patient Instructions Last Modified By Organization Details Last Modified Time 08/19/2022 [id number] I have discussed in great detail our potential treatment options which would include a rehabilitative approach to care. This program would include medication management, Physical Therapy, consideration for interventional procedures as appropriate, and lifestyle modification (diet, weight loss, exercise, smoking/tobacco cessation, holistic approach including meditation and yoga). The patient understands and agrees prior to proceeding with this plan. _ __ __ __ __ __ __ __ __ __ __ __ __ __ __ __ __ __ __ __ __ __ __ __ __ __ __ __ _ RECORDS REVIEW: As per clinic policy, we will have the patient sign a release to obtain previous imaging and clinical notes. _ __ __ __ __ __ __ __ __ __ __ __ __ __ __ __ __ __ __ __ __ __ __ __ __ __ __ __ _ PSYCH: Pain affecting Neuro-psych behavior was discussed. Discussed about pain psychological counseling as a part of the multimodal approach to pain treatment. _ __ __ __ __ __ __ __ __ __ __ __ __ __ __ __ __ __ __ __ __ __ __ __ __ __ __ __ _ REHABILITATION: Discussed with the patient the importance of diet, daily physical activity and PT. Discussed with the patient the need to be scheduled for physical therapy since physical therapy will prolong the benefits of the procedure and interventions. _ __ __ __ __ __ __ __ __ __ __ __ __ __ __ __ __ __ __ __ __ __ __ __ __ __ __ __ _ AGUEDA: [id number] I have reviewed patient's AGUEDA report prior to prescribing Schedule II, III, and IV medications that require review by law. [place] PDMP reviewed and appropriate. UDS reviewed and consistent with current regimen. Controlled substance contract reviewed and signed line by line. Risks of medication therapy including respiratory depression, , and hazards of operating heavy machinery including automobiles discussed at length. Patient given information with six opioid/Controlled substance safety steps: 1. Never take a prescription pain medication unless it is prescribed for you. 2. Do not take pain medicine with alcohol. 3. Do not take more doses than prescribed. 4. Use with other sedative or anti-anxiety medications can be dangerous. 5. Avoid using prescription pain medication to help you fall asleep. 6. Lock up prescription pain medications. Opioid Contract Discussion: The patient was given a copy of the Clinic Prescription Drug Agreement and was counseled extensively regarding its contents. The patient is to take their pain medication exactly as prescribed. No increases in medications are to be without first contacting the office and explaining the reason behind the increase and getting approval to do so. The patient is not to obtain medications from other providers without first notifying the other provider what they obtain from this clinic and need to notify this clinic when they obtain pain medications from other providers. The patient is to bring their pain medications to each and every office visit for pill counts to monitor compliance for their safety. The patient is subject to periodic urine drug testing at the discretion of the provider as well as state and federal regulations. The patient was warned of the risks and benefits of taking opioid pain medication, the risk of addiction, the risk of withdrawal and the differences. Not available 08/20/2022 10:28:46 09/09/2022 [id number] I have discussed in great detail our potential treatment options which would include a rehabilitative approach to care. This program would include medication management, Physical Therapy, consideration for interventional procedures as appropriate, and lifestyle modification (diet, weight loss, exercise, smoking/tobacco cessation, holistic approach including meditation and yoga). The patient understands and agrees prior to proceeding with this plan. _ __ __ __ __ __ __ __ __ __ __ __ __ __ __ __ __ __ __ __ __ __ __ __ __ __ __ __ _ RECORDS REVIEW: As per clinic policy, we will have the patient sign a release to obtain previous imaging and clinical notes. _ __ __ __ __ __ __ __ __ __ __ __ __ __ __ __ __ __ __ __ __ __ __ __ __ __ __ __ _ PSYCH: Pain affecting Neuro-psych behavior was discussed. Discussed about pain psychological counseling as a part of the multimodal approach to pain treatment. _ __ __ __ __ __ __ __ __ __ __ __ __ __ __ __ __ __ __ __ __ __ __ __ __ __ __ __ _ REHABILITATION: Discussed with the patient the importance of diet, daily physical activity and PT. Discussed with the patient the need to be scheduled for physical therapy since physical therapy will prolong the benefits of the procedure and interventions. _ __ __ __ __ __ __ __ __ __ __ __ __ __ __ __ __ __ __ __ __ __ __ __ __ __ __ __ _ AGUEDA: [id number] I have reviewed patient's AGUEDA report prior to prescribing Schedule II, III, and IV medications that require review by law. [place] PDMP reviewed and appropriate. UDS reviewed and consistent with current regimen. Controlled substance contract reviewed and signed line by line. Risks of medication therapy including respiratory depression, , and hazards of operating heavy machinery including automobiles discussed at length. Patient given information with six opioid/Controlled substance safety steps: 1. Never take a prescription pain medication unless it is prescribed for you. 2. Do not take pain medicine with alcohol. 3. Do not take more doses than prescribed. 4. Use with other sedative or anti-anxiety medications can be dangerous. 5. Avoid using prescription pain medication to help you fall asleep. 6. Lock up prescription pain medications. Opioid Contract Discussion: The patient was given a copy of the Clinic Prescription Drug Agreement and was counseled extensively regarding its contents. The patient is to take their pain medication exactly as prescribed. No increases in medications are to be without first contacting the office and explaining the reason behind the increase and getting approval to do so. The patient is not to obtain medications from other providers without first notifying the other provider what they obtain from this clinic and need to notify this clinic when they obtain pain medications from other providers. The patient is to bring their pain medications to each and every office visit for pill counts to monitor compliance for their safety. The patient is subject to periodic urine drug testing at the discretion of the provider as well as state and federal regulations. The patient was warned of the risks and benefits of taking opioid pain medication, the risk of addiction, the risk of withdrawal and the differences. Not available 09/09/2022 16:56:54 09/23/2022 [id number] I have discussed in great detail our potential treatment options which would include a rehabilitative approach to care. This program would include medication management, Physical Therapy, consideration for interventional procedures as appropriate, and lifestyle modification (diet, weight loss, exercise, smoking/tobacco cessation, holistic approach including meditation and yoga). The patient understands and agrees prior to proceeding with this plan. _ __ __ __ __ __ __ __ __ __ __ __ __ __ __ __ __ __ __ __ __ __ __ __ __ __ __ __ _ RECORDS REVIEW: As per clinic policy, we will have the patient sign a release to obtain previous imaging and clinical notes. _ __ __ __ __ __ __ __ __ __ __ __ __ __ __ __ __ __ __ __ __ __ __ __ __ __ __ __ _ PSYCH: Pain affecting Neuro-psych behavior was discussed. Discussed about pain psychological counseling as a part of the multimodal approach to pain treatment. _ __ __ __ __ __ __ __ __ __ __ __ __ __ __ __ __ __ __ __ __ __ __ __ __ __ __ __ _ REHABILITATION: Discussed with the patient the importance of diet, daily physical activity and PT. Discussed with the patient the need to be scheduled for physical therapy since physical therapy will prolong the benefits of the procedure and interventions. _ __ __ __ __ __ __ __ __ __ __ __ __ __ __ __ __ __ __ __ __ __ __ __ __ __ __ __ _ AGUEDA: [id number] I have reviewed patient's AGUEDA report prior to prescribing Schedule II, III, and IV medications that require review by law. [place] PDMP reviewed and appropriate. UDS reviewed and consistent with current regimen. Controlled substance contract reviewed and signed line by line. Risks of medication therapy including respiratory depression, , and hazards of operating heavy machinery including automobiles discussed at length. I had a long discussion with the patient regarding the risks associated with chronic opioid and benzodiazepine therapy. The patient was informed of the risks of taking these medications concurrently. I advised them that I would recommend that they not continue taking benzodiazepines if they are planning on continuation of opioid therapy. They should consult with their treating physician for tapering instructions for benzodiazepines. They understand that risks up to and including are possible with co-administration. The patient was instructed to refrain from driving or performing potentially dangerous activities when taking medications that may sedate them. The patient understands that they will undergo stringent monitoring including POC UDS at each visit, periodic confirmatory UDS, both scheduled and random pill counts, continuous monitoring of the [place] PDMP. Again, anything less than 100% compliance and clear benefit, will result in moving away from opioid therapy. Patient given information with six opioid/Controlled substance safety steps: 1. Never take a prescription pain medication unless it is prescribed for you. 2. Do not take pain medicine with alcohol. 3. Do not take more doses than prescribed. 4. Use with other sedative or anti-anxiety medications can be dangerous. 5. Avoid using prescription pain medication to help you fall asleep. 6. Lock up prescription pain medications. Opioid Contract Discussion: The patient was given a copy of the Clinic Prescription Drug Agreement and was counseled extensively regarding its contents. The patient is to take their pain medication exactly as prescribed. No increases in medications are to be without first contacting the office and explaining the reason behind the increase and getting approval to do so. The patient is not to obtain medications from other providers without first notifying the other provider what they obtain from this clinic and need to notify this clinic when they obtain pain medications from other providers. The patient is to bring their pain medications to each and every office visit for pill counts to monitor compliance for their safety. The patient is subject to periodic urine drug testing at the discretion of the provider as well as state and federal regulations. The patient was warned of the risks and benefits of taking opioid pain medication, the risk of addiction, the risk of withdrawal and the differences. [email or web address] Not available 09/25/2022 07:56:33 Reason for Referral None Reported. Results Created Date Observation Date Name Description Value Unit Range Abnormal Flag Note LastModifiedBy Organization Detail LastModifiedTime 09/09/20 22 09/09/2022 drug scree n, urine Amphetamines negati ve Not Available [facility] [address] [place], [place], [address], 09/09/2022 16:13:20 09/09/20 22 09/09/2022 drug scree n, urine Barbiturates negati ve Not Available [facility] [facility] [address] [place], [place], [address], 09/09/2022 16:13:20 09/09/20 22 09/09/2022 drug scree n, urine Buprenorphin e negati ve Not Available [facility] [address] [place], [address], 09/09/2022 16:13:20 09/09/20 22 09/09/2022 drug scree n, urine Benzodiazepi brittany positi ve Not Available [facility] [address] [place], [address], 09/09/2022 16:13:20 09/09/20 22 09/09/2022 drug scree n, urine Cocaine negati ve Not Available [facility] [address] [place], [address], 09/09/2022 16:13:20 09/09/20 22 09/09/2022 drug scree n, urine Methamphetam ine negati ve Not Available [facility] [place] [facility] [address] [place], [address], 09/09/2022 16:13:20 09/09/20 22 09/09/2022 drug scree n, urine Ecstasy negati ve Not Available [facility] [place] [facility] [address] [place], [address], 09/09/2022 16:13:20 09/09/20 22 09/09/2022 drug scree n, urine Methadone negati ve Not Available [facility] [place] [facility] [address] [place], [place], [address], 09/09/2022 16:13:20 09/09/20 22 09/09/2022 drug scree n, urine Morphine/ Opiates positi ve Not Available [facility] [place] [facility] [address] [place], [place], [address], 09/09/2022 16:13:20 09/09/20 22 09/09/2022 drug scree n, urine Phencyclidin e negati ve Not Available [facility] [address] [place], [place], [address], 09/09/2022 16:13:20 09/09/20 22 09/09/2022 drug scree n, urine Oxycodone negati ve Not Available [facility] [address] [place], [place], [address], 09/09/2022 16:13:20 09/09/20 22 09/09/2022 drug scree n, urine Marijuana positi ve Not Available [facility] [address] [place], [place], [address], 09/09/2022 16:13:20 Result Notes None recorded. Problems Name Problem SNOMED Code Status Onset Date Resolution Date Notes Provider Name and Address Organization Details Recorded Time Post-laminecto my syndrome 32853503 Active 2021 Marianela robledo, [place] - [facility] - [facility] & [place] 2 13:23:56 Cerebrovascula r accident 021589936 Active 2021 Marianela Gomez null, [place] - [facility] - [facility] & [place] 2 13:24:11 Polypharmacy 483070759 Active 2021 Marianela robledo, [place] - [facility] - [facility] & [place] 2 13:24:19 Spinal stenosis of lumbar region 91129405 Active 2021 Marianela Gomez null, [place] - [facility] - [facility] & [place] 2 13:24:35 Radicular pain 08675661 Active 2021 Marianela Gomez [place] - [facility] - [facility] & [place] 2 13:24:43 Myofascial pain 333403043 Active 2021 Marianela Gomez null[place] - [facility] - [facility] & [place] 2 13:24:54 Spinal enthesopathy 86205629 Active 2021 Marianela robledo, [place] - [facility] - [facility] & [place] 2 13:25:05 Long-term current use of anticoagulant 736477560 Active 2021 Marianela robledo, [place] - [facility] - [facility] & [place] 2 13:25:16 Left hemiparesis 920888734 Active 2021 Marianela [place]o, [place] - [facility] - [facility] & [place] 2 13:25:29 Abnormal gait 19228946 Active 2021 Marianela [place]ledo, [place] - [facility] - [facility] & [place] 2 13:25:38 Opioid dependence 97872970 Active 2021 Marianela Gomez null, [place] - [facility] - [facility] & [place] 2 16:56:20 Problem Notes None recorded. Procedures Surgical History Date Name Laterality Status Provider Name and Address Organization Details Recorded Time cholecystectomy completed Marianela RAJAN - [facility] - [facility] [place] 2022 13:18:34 Appendectomy completed Marianela Gomez [place] - [facility] - [facility] & [place] 2022 13:18:41 Imaging Results None recorded. Procedure Notes None recorded. Medical Equipment None Reported. Allergies Allergen ID Allergen Name Allergen Category Reaction Reaction Severity Criticality Documentation Date Start Date Code Code System Note Provider Name and Address Organization Details Recorded Time 53090 Non-stero idal anti-infl ammatory agent (substanc e) medicatio n Not available Not available Not available 2022 68489 5008 SNOMED Marianela Gomez [facility], [place] - [facility] - [place] & [place] 13:19:48 Medications Name Sig Start Date Stop Date Status Note LastModified by Organization Details LastModified Time furosemide 40 mg tablet active Not Available Not Available Not Available methocarbam ol 500 mg tablet active Not Available Not Available Not Available rabeprazole 20 mg tablet,kathryn yed release Take 1 tablet twice a day by oral route as directed for 30 days. active Not Available Not Available No t Available nifedipine ER 90 mg tablet,exte nded release active Not Available Not Available Not Available nystatin 100,000 unit/gram topical ointment apply 1 applicati on topically 3 times a day 14 days active Not Available Not Available No t Available valacyclovi r 1 gram tablet take 1 tab(s) orally 2 times a day for 7 days active Not Available Not Available No t Available hydrocodone 5 mg-acetamin ophen 325 mg tablet take 1 tab(s) orally three times daily 30 days 05/17 completed Not Available Not Available Not Available ondansetron HCl 8 mg tablet TAKE ONE TABLET BY MOUTH TWICE DAILY FOR 30 DAYS active Not Available Not Available No t Available ondansetron HCl 4 mg tablet TAKE 1 TABLET BY MOUTH EVERY 8 HOURS 05/17 completed Not Available Not Available Not Available Lantus U-100 Insulin 100 unit/mL subcutaneou s solution Inject 51 units every day by subcutane ous route as needed for 30 days. 05/17 completed Not Available Not Available Not Available Accu-Chek Softclix Lancets active Not Available Not Available Not Available lidocaine HCl 2 % mucosal jelly active Not Available Not Available Not Available Klor-Con 20 mEq oral packet Take 1 packet every day by oral route with meals for 30 days. active Not Available Not Available No t Available clopidogrel 75 mg tablet take 1 tab(s) orally once a day 30 days active Not Available Not Available No t Available hydrocodone 10 mg-acetamin ophen 325 mg tablet Take 1 tablet twice a day by oral route as needed for 30 days. 05/17 completed Not Available Not Available Not Available tramadol 50 mg tablet TAKE 1 TABLET BY MOUTH TWICE A DAY NEEDED 05/17 completed Not Available Not Available Not Available oxycodone-a cetaminophe n 5 mg-325 mg tablet take 1 tab(s) orally every 6 hours As needed for severe hip pain 14 days 05/17 completed Not Available Not Available Not Available nifedipine ER 90 mg tablet,exte nded release 24 hr TAKE 1 TABLET BY MOUTH EVERY DAY active Not Available Not Available No t Available hydrocodone 7.5 mg-acetamin ophen 325 mg tablet TAKE 1 TABLET BY MOUTH EVERY 6 HOURS FOR 30 DAYS 05/17 completed Not Available Not Available Not Available Lasix 20 mg tablet Take 1 tablet every day by oral route as directed for 30 days. 05/17 completed Not Available Not Available Not Available buspirone 10 mg tablet TAKE 1/2 TABLET AT BEDTIME X 5-7 DAYS, THEN 1 TAB AT BEDTIME X 5-7 DAYS, THEN 1 TAB TWICE A DAY active Not Available Not Available No t Available lidocaine 5 % topical patch APPLY 1 PATCH TO CLEAN, DRY SKIN ONCE A DAY (12 HOURS ON, 12 HOURS OFF) active Not Available Not Available No t Available metoprolol succinate ER 25 mg tablet,exte nded release 24 hr active Not Available Not Available Not Available oxycodone-a cetaminophe n 7.5 mg-325 mg tablet take 1 tab(s) orally every 6 hours 7 days active Not Available Not Available No t Available methylpredn isolone 4 mg tablets in a dose pack TAKE 6 TABLETS ON DAY 1 DIRECTED ON PACKAGE AND DECREASE BY 1 TAB EACH DAY FOR A TOTAL OF 6 DAYS 05/17 completed Not Available Not Available Not Available Vitamin D2 1,250 mcg (50,000 unit) capsule Take 1 capsule twice a day by oral route as directed for 30 days. active Not Available Not Available No t Available lisinopril 40 mg tablet Take 1 tablet every day by oral route as directed for 30 days. active Not Available Not Available No t Available ondansetron 4 mg disintegrat ing tablet 05/17 completed Not Available Not Available Not Available fluticasone propionate 50 mcg/actuati on nasal spray,suspe nsion active Not Available Not Available Not Available amoxicillin 875 mg-potassiu m clavulanate 125 mg tablet active Not Available Not Available Not Available ezetimibe 10 mg tablet take 1 tab(s) orally once a day 30 days active Not Available Not Available No t Available Novolog FlexPen U-100 Insulin aspart 100 unit/mL (3 mL) subcutaneou s SLIDING SCALE SUBCUTANE OUSLY 3 TIMES A DAY (BEFORE MEALS) 30 DAY(S) subcutane ously 3 times a day (before meals) max daily 20 units active Not Available Not Available No t Available metoprolol tartrate 25 mg tablet Take 1 tablet twice a day by oral route as directed for 30 days. active Not Available Not Available No t Available ORTHOVISC 30 mg/2 mL intra-artic ular syringe active Not Available Not Available Not Available duloxetine 30 mg capsule,del ayed release 05/17 completed Not Available Not Available Not Available duloxetine 60 mg capsule,del ayed release TAKE 1 cap(s) orally twice a day 30 days active Not Available Not Available No t Available omega-3 acid ethyl esters 1 gram capsule TAKE 2 CAPSULES BY MOUTH TWICE A DAY active Not Available Not Available No t Available Novolog FlexPen U-100 Insulin as directed active Not Available Not Available No t Available cholecalcif judi (vitamin D3) 1,250 mcg (50,000 unit) capsule TAKE 1 CAPSULE(S ) BY MOUTH TWICE A WEEK active Not Available Not Available No t Available Lantus Solostar U-100 Insulin 100 unit/mL (3 mL) subcutaneou s pen inject 65 units subcutane ously once a day 90 days 05/17 completed Not Available Not Available Not Available Accu-Chek [place]il[place] Plus test strips active Not Available Not Available Not Available Linzess 290 mcg capsule TAKE 1 CAPSULE BY MOUTH EVERY DAY 05/17 completed Not Available Not Available Not Available Movantik 25 mg tablet TAKE 1 TABLET BY MOUTH EVERY MORNING active Not Available Not Available No t Available TechLITE Pen Needle 31 gauge x 3/16 active Not Available Not Available Not Available fluticasone furoate 50 mcg/actuati on blister powder for inhalation Inhale 2 inhalatio ns every day by inhalatio n route as needed for 30 days. 05/17 completed Not Available Not Available Not Available Accu-Chek Guide Me Glucose Meter active Not Available Not Available Not Available Gemtesa 75 mg tablet TAKE ONE TABLET BY MOUTH ONCE DAILY FOR 90 DAYS active Not Available Not Available No t Available Paxlovid 300 mg (150 mg x 2)-100 mg tablets in a dose pack TAKE DIRECTED 05/17 completed Not Available Not Available Not Available Dexcom G7 Sensor device active Not Available Not Available Not Available Vitals Date Recorded Body weight Body temperature Oxygen saturation Oxygen saturation in Arterial blood by Pulse oximetry Heart rate Systolic And Diastolic Provider Name and Address Organization Details Last Updated DateTime 4 711830. 86 g 98.2 [degF] 92 % 92 % 100 /min 134/80 mm[Hg] Chrissy [facility] & [place] 4 14:42:44 Date Recorded Body temperature Oxygen saturation Oxygen saturation in Arterial blood by Pulse oximetry Heart rate Systolic And Diastolic Provider Name and Address Organization Details Last Updated DateTime 2 97.6 [degF] 99 % 99 % 78 /min 153/68 mm[Hg] Linda Az[facility] & [place] 2 16:38:25 Social History None recorded. Functional Status None recorded. Mental Status None recorded. Family History Relationship Description Onset Age of this Age Resolved Age Notes LastModified by Organization Details LastModified Time Mother History of hypertension [email or web address] Not available 13:19:11 Father Tuberculosis black lung [email or web address] Not available 2022 13:19:34 Medical History Condition Response Coronary Artery Disease N None N Gout N Hernia N Head Trauma/Injury N Thyroid Problems N Depression N COPD Y Anemia N Ulcers N Heart Attack (IN) N Anxiety Disorder N Diabetes Y Bleeding Disorder N Arthritis Y Tuberculosis N AIDS/HIV N Acid Reflux (GERD) Y Cancer N Stroke Y Asthma N Substance Abuse N Back Injury N High Cholesterol Y Hepatitis N Liver Disease N Heart Disease Y Headaches Y Fibromyalgia Y Hypertension Y Osteoporosis N Kidney Disease N Gynecological HistoryNo gynecological history recorded. Obstetrics History GPAL:G 0 P 0 0 0 0 Past Encounters Encounter ID Performer Location Encounter Start Date Encounter Closed Date Diagnosis/Indication Diagnosis SNOMED-CT Code Diagnosis ICD10 Code Diagnosis IMO Codes Diagnosis Note [id number] Pravin Wu MD [facility] [address] [place] [address] 08/19/2022 13:03:03 08/19/2022 14:33:37 Post-laminectomy syndrome 98234617 M96.1 Cerebrovas cular accident 124266295 I63.9 Spinal jt nosis of lumbar region 26505797 M99.53 Radicular pain 14074714 M54.10 Myofascial pain 62536571 9 M79.10 [id number] Pravin Wu MD [facility] [address] [place] [address] 09/09/2022 14:27:40 09/09/2022 15:37:37 Post-laminectomy syndrome 35178764 M96.1 Cerebrovas cular accident 831027477 I63.9 Spinal jt nosis of lumbar region 87426401 M99.53 Radicular pain 47575697 M54.10 Myofascial pain 97861796 9 M79.10 Opioid dependence 562938 00 F11.20 [id number] Pravin Wu MD [facility] [address] [place] [address] 09/23/2022 14:53:05 09/23/2022 15:25:47 Post-laminectomy syndrome 02470662 M96.1 Cerebrovas cular accident 029170399 I63.9 Spinal jt nosis of lumbar region 92871522 M99.53 Radicular pain 32940533 M54.10 Myofascial pain 62289447 9 M79.10 Opioid dependence 947984 00 F11.20 [id number] LORRIE SWAIN DO [facility] [address] [place] [address] [place] [address] 05/17/2024 13:43:17 05/17/2024 15:15:33 Lumbosacral radiculopathy 5121762 M54.17 Opioid dependence 465077 00 F11.20 Post-shayan ectomy syndrome 38819508 M96.1 Cerebrovas cular accident 544500425 I63.9 Spinal jt nosis of lumbar region 12927464 M99.53 Radicular pain 39641137 M54.10 Myofascial pain 06660517 9 M79.10 Health Concerns Section Related Observation LastModified by Organization Detai ls LastModified Time None Recorded Concern Status LastModified by Organization Details LastModified Time None Recorded Advance Directives Directive None Recorded Payers Insurance Date Sequence Insurance Name Policy Number Policy Sanchez Covered Member ID Sanchez Member ID Guarantor Name 05/20/2024 1 [employer] (MEDICARE REPLACEMENT/A DVANTAGE - HMO) Dulce Savage [id number] Dulce Savage Notes Date Note Type Note Provider Name and Address Organization Details Recorded Time 2 text/html Mrs. Savage was referred from Dr. Lopez for management of chronic pain. Patient reports that she has a complicated pain history, noting that she has had the pain for manay years andit progressivelt got to the point where she had lumbar spine surgery 2 years ago. After the surgery there was concern of a spinal infection so another surgery was completed that revealed no infection. Patient notes that she has had to use the rollator since the surgery and that [facility] continues to have low back and hip pain. Patient also goes on to note having right shoulder pain, reporting that a recent MRI shows severe bone spurs and that she is following an Ortho doctor who is going to complete right shoulder surgery sometime this year.Patient presents via televideo today for a follow up on a medication refill. She reports that the current medication regimen is managing pain and well-tolerated, allowing her to remain functional. The patient recently has had significant comorbidities including a stroke on May 10 and was admitted at for 3-4 days and then was transferred to [facility] for 3 weeks. Patient notes continuing PT and that her LUE/LLE is slightly weak, but after the therapy she has been doing significantly well. She notes being in increased pain and is still recovering from her stroke. After following up with Dr. Pierson who deemed her a good candidate for ITPP therapy, she no longer wants to pursue this option at this time. The patient reports wanting to continue oral medications. Of note, patient reports working with speech therapy regarding her slurred speech and she is doing well with that. Pain is rated 10/10 today.__ __ __ __ __ __ __ __ __ __ __ __ __ __ __ __ __ __ __ __ __ __ __ __ __ __ __ _Initial complaint: chronic low back painOnset: many years ago no specific injuryContext: worsening over timeCharacter: dull ache to sharp throbLocation: left shoulder and lower backDuration: constantInitial Intensity: 8/10Worse: walking, movementBetter: restAssociated symptoms: Denies saddle anaesthesia, denies acute bowel/bladder changes, denies acute power lossADLs: The patient's pain interferes with daily chores, exercise, sleep, relationships, and walking.Current Pain Medications: opioids- semi helpfulPrior Pain Medications: noneNSAIDS/OTC- not helpfulNon-interventional Tx: deniesSurgery: lumbar surgery completed [address] Chunsical Therapy: completed post surgeryInterventional Tx: deniesImaging/Studies: nothing recent Pravin Wu MD [address] [facility], [place], [address], [facility] - [place] & [place] 08/21/2022 14:27:05 2 text/html Mrs. Savage was referred from Dr. Lopez for management of chronic pain. Patient reports that she has a complicated pain history, noting that she has had the pain for many years and it progressively got to the point where she had lumbar spine surgery 2 years ago. After the surgery there was concern of a spinal infection so another surgery was completed that revealed no infection. Patient notes that she has had to use the rollator since the surgery and that she continues to have low back and hip pain. Patient also goes on to note having right shoulder pain, reporting that a recent MRI shows severe bone spurs and that she is following an Ortho doctor who is going to complete right shoulder surgery sometime this year.Patient presents to the clinic today for a medication refill. She reports that the current medication regimen is managing pain and well-tolerated, allowing her to remain functional. The patient recently has had significant comorbidities including a stroke on May 10 and was admitted at for 3-4 days and then was transferred to [facility] for 3 weeks. Patient notes continuing PT and that her LUE/LLE is slightly weak, noting that she feels that she is getting weaker daily. She notes being in increased pain and is still recovering from her stroke. After following up with Dr. Pierson who deemed her a good candidate for ITPP therapy, she no longer wants to pursue this option at this time. The patient reports wanting to continue oral medications. Pain is rated 10/10 today.__ __ __ __ __ __ __ __ __ __ __ __ __ __ __ __ __ __ __ __ __ __ __ __ __ __ __ _Initial complaint: chronic low back painOnset: many years ago no specific injuryContext: worsening over timeCharacter: dull ache to sharp throbLocation: left shoulder and lower backDuration: constantInitial Intensity: 8/10Worse: walking, movementBetter: restAssociated symptoms: Denies saddle anaesthesia, denies acute bowel/bladder changes, denies acute power lossADLs: The patient's pain interferes with daily chores, exercise, sleep, relationships, and walking.Current Pain Medications: opioids- semi helpfulPrior Pain Medications: noneNSAIDS/OTC- not helpfulNon-interventional Tx: deniesSurgery: lumbar surgery completed [address] Dailycal Therapy: completed post surgeryInterventional Tx: deniesImaging/Studies: nothing recent Pravin Wu MD [address] [facility], [place], [address], [facility] & [place] 09/11/2022 14:29:05 2 text/html Mrs. Savage was referred from Dr. Lopez for management of chronic pain. Patient reports that she has a complicated pain history, noting that she has had the pain for many years and it progressively got to the point where she had lumbar spine surgery 2 years ago. After the surgery there was concern of a spinal infection so another surgery was completed that revealed no infection. Patient notes that she has had to use the rollator since the surgery and that she continues to have low back and hip pain. Patient also goes on to note having right shoulder pain, reporting that a recent MRI shows severe bone spurs and that she is following an Ortho doctor who is going to complete right shoulder surgery sometime this year.Patient presents to the clinic today for a UDS confirmation and medication refill. She reports that the current medication regimen is managing pain and well-tolerated, allowing her to remain functional.during the last visit the patient's UDS was positive for THC and so I had sent for confirmation to determine the source. The patient recently has had significant comorbidities including a stroke on May 10 and was admitted at for 3-4 days and then was transferred to [facility] for 3 weeks. Patient notes continuing PT and that her LUE/LLE is slightly weak, noting that she feels that she is getting weaker daily. She notes being in increased pain and is still recovering from her stroke. After following up with Dr. Pierson who deemed her a good candidate for ITPP therapy, she no longer wants to pursue this option at this time. The patient reports wanting to continue oral medications. Pain is rated 10/10 today.__ __ __ __ __ __ __ __ __ __ __ __ __ __ __ __ __ __ __ __ __ __ __ __ __ __ __ _Initial complaint: chronic low back painOnset: many years ago no specific injuryContext: worsening over timeCharacter: dull ache to sharp throbLocation: left shoulder and lower backDuration: constantInitial Intensity: 8/10Worse: walking, movementBetter: restAssociated symptoms: Denies saddle anaesthesia, denies acute bowel/bladder changes, denies acute power lossADLs: The patient's pain interferes with daily chores, exercise, sleep, relationships, and walking.Current Pain Medications: opioids- semi helpfulPrior Pain Medications: noneNSAIDS/OTC- not helpfulNon-interventional Tx: deniesSurgery: lumbar surgery completed [address] Chunsical Therapy: completed post surgeryInterventional Tx: deniesImaging/Studies: nothing recent Pravin Wu MD [address], [place], [address], [facility] - [place] & [place] 09/25/2022 07:58:06 4 text/html Mrs. Savage was referred from Dr. Murray for management of chronic pain. Patient reports that she has a complicated pain history, noting that she has had the pain for many years and it progressively got to the point where she had lumbar spine surgery >2 years ago. After the surgery there was concern of a spinal infection so another surgery was completed that revealed no infection. Patient was originally seen by Dr. Wu who was last seen September 23, 2022 where she was receiving prescription based medication. The plan was to work her up for possible intrathecal pump implant for intractable back pain, but the patient did not want to pursue this option wanted to continue oral medications instead. Since then, patient has had multiple significant events that required multiple hospitalizations and and frequent emergency room visits. she also has been getting her pain medications from different provider named Jack Colon. Followed up with Dr. Pierson who deemed her a good candidate for ITPP therapy, she no longer wants to pursue this option at this time. Pain is rated 10/10 today. her pain is mostly in the back with referred symptoms to the hip. She is always in distress because she can not get control of her symptoms. Her who recently had a heart catheterization is unable to always provide support physically secondary to his recent heart attack. Significant comorbidities including a prior stroke on May 10 and was admitted at for 3-4 days and then was transferred to [facility] for 3 weeks.__ __ __ __ __ __ __ __ __ __ __ __ __ __ __ __ __ __ __ __ __ __ __ __ __ __ __ _Initial complaint: chronic low back painOnset: many years ago no specific injuryContext: worsening over timeCharacter: dull ache to sharp throbLocation: left shoulder and lower backDuration: constantInitial Intensity: 10/10Worse: walking, movementBetter: restAssociated symptoms: Denies saddle anaesthesia, denies acute bowel/bladder changes, denies acute power lossADLs: The patient's pain interferes with daily chores, exercise, sleep, relationships, and walking.Current Pain Medications: opioids- semi helpfulPrior Pain Medications: noneNSAIDS/OTC- not helpfulNon-interventional Tx: deniesSurgery: lumbar surgery completed with Dr. Dailycal Therapy: completed post surgeryInterventional Tx: deniesImaging/Studies: nothing recent LORRIE SWAIN, [address], [place], [address], [facility] 05/19/2024 16:22:26 OBGyn Episode No OBEpisode recorded.
--- OUTSIDE RECORDS SUMMARY | 2025-07-29 11:54 | XMS_ITS | Encounter Summary ---
Author Organization [employer] ([place], [place], [place], [place]) Address [address] [place] [address] Care Team Providers Care Paper Cone Maker Name Role Phone Unavailable Primary Care Provider Unavailabl e Encounter Details Date Type Department Care Team (Late st Contact Info) Description 01/04/2021 Transcribed Document [facility] [place] [address] ProviderChano MD Critical access [facility] [place] [id number] Social History Tobacco Use Types Packs/Day Years Used Date Smoking Tobacco: Never Assessed Comments Unknown Sex and Gender Information Value Date Recorded Sex Assigned at Not on file Legal Sex Female 2:07 PM CDT Gender Identity Not on file Sexual Orientation Not on file documented as of this encounter Miscellaneous Notes * Cerner Conversion Note - Chano ProviderMD - 01/04/2021 1:01 PM CDT DATE OF SERVICE: 01/04/2021 LEXISCAN MYOVIEW PERFUSION STUDY INDICATION: Chest pain, abnormal EKG. RESTING ELECTROCARDIOGRAM: Normal sinus rhythm, PVC, baseline artifact. LEXISCAN STRESS: Standard Lexiscan stress protocol. Peak heart rate response of 96 beats per minute, blood pressure response to 180/57 mmHg were achieved. There was no chest discomfort. No arrhythmia. The stress electrocardiogram is negative for ischemic ST changes. 10.7 mCi of Myoview was administered prior to rest scan and 32.1 mCi prior to the post-stress scan. MYOVIEW PERFUSION DATA: Reversible defect: There is mild basal inferior reversible defect. Fixed defects: There is mild fixed defect involving the mid inferior wall. Left ventricular function: Gated management of left ventricular systolic function post-stress was 66%. No regional wall motion abnormality. IMPRESSION: Mildly abnormal Lexiscan Myoview perfusion study. Mixture of fixed and reversible inferior defect could represent slight difference in patient positioning and diaphragmatic attenuation. Cannot rule out small area of ischemia. Normal left ventricular systolic function post-stress. /[id number] Dario Palomares MD SSL/AQ / SSL / MODL /[id number] CC: Dr. Jordan Lopez Electronically signed by Summer, [facility] Conversion Program Manager Transportation Cerner at 01/23/2023 1:14 PM CDT documented in this encounter Plan of Treatment Not on file documented as of this encounter Visit Diagnoses Not on filedocumented in this encounter
--- OUTSIDE RECORDS SUMMARY | 2025-07-29 11:54 | XMS_ITS | Encounter Summary ---
Author Organization [employer] ([place], [place], [place], [place]) Address [address] [place] [address] Care Team Providers Care Bladder Trimmer Name Role Phone Unavailable Primary Care Provider Unavailabl e Encounter Details Date Type Department Care Team (Late st Contact Info) Description 07/13/[address] [facility] [place] [address] [place] [address] ProviderChano MD [address] [place], [place] [phone] Social History Tobacco Use Types Packs/Day Years Used Date Smoking Tobacco: Never Assessed Comments Unknown Sex and Gender Information Value Date Recorded Sex Assigned at Not on file Legal Sex Female 2:07 PM CDT Gender Identity Not on file Sexual Orientation Not on file documented as of this encounter Miscellaneous Notes * Cerner Conversion Note - Historical ProviderMD - 07/13/2019 1:48 PM CDT Attempt to Treat, PT Entered On: 07/13/2019 13:48 EDT Performed On: 07/13/2019 13:48 EDT by ANNA MALONE PT Attempt to Treat Inability to Treat Comment : Patient on phone with sister in law, Can you come back in 30 minutes, we replied no. Will check back as time allows. Notification : ANNA Gutierrez, PT - 07/13/2019 13:48 EDT documented in this encounter Plan of Treatment Not on file documented as of this encounter Visit Diagnoses Not on filedocumented in this encounter
--- OUTSIDE RECORDS SUMMARY | 2025-07-29 11:54 | XMS_ITS | Encounter Summary ---
Author Organization [employer] ([place], [place], [place], [place]) Address [address] [place] [address] Care Team Providers Care Trench Digger Name Role Phone Unavailable Primary Care Provider Unavailabl e Encounter Details Date Type Department Care Team (Late st Contact Info) Description 04/05/2019 Transcribed Document [facility] [place] Medicine [address] [place] [address] ProviderChano MD [address] [place], [place] [phone] Social History Tobacco Use Types Packs/Day Years Used Date Smoking Tobacco: Never Assessed Comments Unknown Sex and Gender Information Value Date Recorded Sex Assigned at Not on file Legal Sex Female 2:07 PM CDT Gender Identity Not on file Sexual Orientation Not on file documented as of this encounter Miscellaneous Notes * Cerner Conversion Note - Chano ProviderMD - 04/05/2019 3:54 PM CDT [facility] Main OR Preop Summary Primary Physician: CATRACHITO THOMPSON, MD ONUR Finalized Date/Time: 04/05/19 15:57:05 Pt. Name: LUDY ANTONIO/Sex: 1950 Female Med Rec #: [id number] Physician: CATRACHITO THOMPSON, MD ONUR Financial #: [id number] Pt. Type: O Room/Bed: Admit/Disch: 04/05/19 06:59:00 - Institution: [facility] PreOp Case Times Entry 1 In Preop 04/05/19 11:45:00 Ready for Holding n/a Room Patient Ready for 04/05/19 12:09:00 Surgery Patient Out of Preop 04/05/19 15:24:00 Patient Out of n/a Holding Room Last Modified By: JOSE TORRES RN 04/05/19 15:57:04 [facility] PreOp Case Times Audit 04/05/19 15:57:04 It Assistant: ARMANI Modifier: ARMANI <+> 1 Patient Out of Preop 04/05/19 12:10:17 It Assistant: ARMANI Modifier: ARMANI 1 <*> Patient Ready for Surgery 04/05/19 12:10:00 Finalized By: JOSE TORRES, RN Document Signatures Signed By: JOSE TORRES RN 04/05/19 15:57 Electronically signed by Summer [facility] Conversion Credit Risk Management Director Cerner at 01/23/2023 1:13 PM CDT documented in this encounter Plan of Treatment Not on file documented as of this encounter Visit Diagnoses Not on filedocumented in this encounter
--- OUTSIDE RECORDS SUMMARY | 2025-07-29 11:54 | XMS_ITS | Encounter Summary ---
Author Organization [employer] ([place], [place], [place], [place]) Address [address] [place] [address] Care Team Providers Care Oceanographer Geological Name Role Phone Unavailable Primary Care Provider Unavailabl e Encounter Details Date Type Department Care Team (Late st Contact Info) Description 12/04/2018 Transcribed Document [facility] [place] [address] ProviderChano MD [address] [place] [phone] Social History Tobacco Use Types Packs/Day Years Used Date Smoking Tobacco: Never Assessed Comments Unknown Sex and Gender Information Value Date Recorded Sex Assigned at Not on file Legal Sex Female 2:07 PM CDT Gender Identity Not on file Sexual Orientation Not on file documented as of this encounter Miscellaneous Notes * Cerner Conversion Note - Historical ProviderMD - 12/04/2018 1:53 PM EYE GLASS FRAME POLISHER Electronically signed by [facility], [facility] Conversion Curtain Stitcher Cerner at 01/23/2023 1:35 PM CDT documented in this encounter Plan of Treatment Not on file documented as of this encounter Visit Diagnoses Not on filedocumented in this encounter
--- OUTSIDE RECORDS SUMMARY | 2025-07-29 11:54 | XMS_ITS | Encounter Summary ---
Author Organization [employer] ([place], [place], [place], [place]) Address [address] [place] [address] Care Team Providers Care Therapist Physical Name Role Phone Unavailable Primary Care Provider Unavailabl e Encounter Details Date Type Department Care Team (Late st Contact Info) Description 02/07/2019 Transcribed Document [facility] [place] [address] [place] [address] ProviderCahno MD [address] [place] [phone] Social History Tobacco Use Types Packs/Day Years Used Date Smoking Tobacco: Never Assessed Comments Unknown Sex and Gender Information Value Date Recorded Sex Assigned at Not on file Legal Sex Female 2:07 PM CDT Gender Identity Not on file Sexual Orientation Not on file documented as of this encounter Miscellaneous Notes * Cerner Conversion Note - Chano ProviderMD - 02/07/2019 5:01 AM CDT ED Assessment Entered On: 02/07/2019 5:12 EDT Performed On: 02/07/2019 5:10 EDT by Leanne Begum certified personal finance counselor Quick Look Assessment Level of Consciousness : Alert, Awake Affect/Behavior : Appropriate, Calm, Cooperative Orientation : Oriented x 4 Skin Color : Other: normal Skin Temperature : Warm Skin Description : Dry Leanne Begum Rn - 02/07/2019 5:10 EDT ED General-Functional Assess Information Obtained From : Patient Preferred Communication Mode : Verbal Communication Barrier : None Primary Language : Colombian Any Spiritual/Cultural Needs or Requests : No Currently in Unsafe Situation : No Leanne Begum Rn - 02/07/2019 5:10 EDT Social Habits Smoking Status : Former smoker, quit more than 30 days ago Smokeless Tobacco Status : Never Desires Tobacco Cessation Calc : 0 Leanne Begum Rn - 02/07/2019 5:10 EDT Social History (As Of: 02/07/2019 05:12:05 EDT) Tobacco: Use in Last 12 Months: [...] assistance. (Last Updated: 07/17/2014 00:15:22 EDT by AKTIE TRINIDAD, ED Nurse) Employment/School: Retired, Previous employment/school: [employer]. (Last Updated: 07/17/2014 00:15:13 EDT by KATIE TRINIDAD, ED Nurse) Cardiovascular ASMT, ED Cardiovascular Assessment WDL : Leanne Stewart Rn - 02/07/2019 5:10 EDT Respiratory Respiratory Assessment WDL : JUAN Leanne Begum Rn - 02/07/2019 5:10 EDT Musculoskeletal Musculoskeletal Assessment WDL : [facility] with exceptions Musculoskeletal Assessment Comment : right hip apin 10/10, no obvious injury, right lower leg with positive pulse, motor and sensory Leanne Begum Rn - 02/07/2019 5:10 EDT Neurologic ASMT, ED Neurologic Assessment WDL : [facility] Leanne Begum Rn - 02/07/2019 5:10 EDT Pain Assessment Pain Assessment : Initial assessment Pain Scale Used : 0-10 Scale Location : Hip, right Leanne Begum Rn - 02/07/2019 5:10 EDT Pain Scale Intensity : 10 Leanne Begum Rn - 02/07/2019 5:10 EDT Image 4 - Images currently included in the form version of this document have not been included in the text rendition version of the form. documented in this encounter Plan of Treatment Not on file documented as of this encounter Visit Diagnoses Not on filedocumented in this encounter
--- OUTSIDE RECORDS SUMMARY | 2025-07-29 11:54 | XMS_ITS | Encounter Summary ---
Author Organization [employer] ([place], [place], [place], [place]) Address [address] [place] [address] Care Team Providers Care Home Paraprofessional Name Role Phone Unavailable Primary Care Provider Unavailabl e Encounter Details Date Type Department Care Team (Late st Contact Info) Description 04/05/2019 Transcribed Document [facility] [place] Family Medicine [address] [place] [address] ProviderChano MD [address] [place], [place] [phone] Social History Tobacco Use Types Packs/Day Years Used Date Smoking Tobacco: Never Assessed Comments Unknown Sex and Gender Information Value Date Recorded Sex Assigned at Not on file Legal Sex Female 2:07 PM CDT Gender Identity Not on file Sexual Orientation Not on file documented as of this encounter Miscellaneous Notes * Cerner Conversion Note - Historical ProviderMD - 04/05/2019 5:39 PM CDT Pain Assessment Entered On: 04/05/2019 22:54 EDT Performed On: 04/05/2019 22:47 EDT by Eriberto Crawley Rn-Resource Intervention Information: acetaminophen-oxyCODONE Performed by Eriberto Crawley Rn-Resource on 04/05/2019 21:47:00 EDT acetaminophen-oxyCODONE,2Tab Oral,Pain (Severe 7-10) Pain Assessment Pain Assessment : Follow-up assessment Pain Scale Goal : 2 Pain Improved by Intervention : Yes Eriberto Crawley Rn-Resource - 04/05/2019 22:54 EDT documented in this encounter Plan of Treatment Not on file documented as of this encounter Visit Diagnoses Not on filedocumented in this encounter
--- OUTSIDE RECORDS SUMMARY | 2025-07-29 11:54 | XMS_ITS | Encounter Summary ---
Author Organization [employer] ([place], [place], [place], [place]) Address [address] [place] [address] Care Team Providers Care Tool Or Die Drawing Checker Name Role Phone Unavailable Primary Care Provider Unavailabl e Encounter Details Date Type Department Care Team (Late st Contact Info) Description 02/07/[address] [facility] [place] [facility] [place] [address] ProviderChano MD [address] [place], [place] [phone] Social History Tobacco Use Types Packs/Day Years [...] ProviderMD - 02/07/2019 5:01 AM CDT ED Triage Entered On: 02/07/2019 5:09 EDT Performed On: 02/07/2019 5:02 EDT by Leanne Begum, kettle cleaner Triage Across the Room Triage Date/Time : 02/07/2019 5:02 EDT Chief Complaint : patient c/o right hip pain 07/15, danced at a wedding yesterday and stiffness began shortly after, began hurting a few hours later, now can't stand or walk Leanne Begum Rn - 02/07/2019 5:02 EDT DCP GENERIC CODE Tracking Acuity : 3 - Urgent Tracking Group : [facility] ED Leanne Begum Rn - 02/07/2019 5:02 EDT Mode of Arrival : Stretcher Transported to ED by : Ambulance/ALS EMS Service : [facility] To Room Via : Stretcher Accompanied By : Unaccompanied ED Vital Signs : Document Height & Weight : Document ED Allergies : Document ED Reason for Visit : Document Tetanus Immunization : Less than 5 years Leanne Begum Rn - 02/07/2019 5:02 EDT Infectious Disease History Infectious Disease History : Measles, Mumps Fever/Chills Last 48 Hours : No Travel To Regions with Travel Advisories : No Travel Outside [place] Within Last 30 Days : No Contact With Traveler to Advisory Region : No Tuberculosis Symptoms : None Leanne Begum Rn - 02/07/2019 5:02 EDT Vital Signs ED Temperature Source : Oral Temperature Mode : Fahrenheit Temperature, Fahrenheit : 98.2 Deg F ED Pain : Yes Clinical Temperature, C : 36.8 Deg C Oxygen Therapy Mode : Room air Peripheral Pulse Rate : 65 bpm Respiratory Rate : 18 Breaths/Min Systolic Blood Pressure : 182 mmHg (HI) Diastolic Blood Pressure : 77 mmHg Oxygen Saturation : 95 % Leanne Begum Rn - 02/07/2019 5:02 EDT Allergy (As Of: 02/07/2019 05:09:32 EDT) Allergies (Active) Avandia Estimated Onset Date: Unspecified ; Reactions: CHF ; Created By: BONI FARMER RN; Reaction Status: Active ; Category: Drug ; Substance: Avandia ; Type: Allergy ; Updated By: BONI FARMER RN; Reviewed Date: 02/07/2019 5:08 EDT fenofibrate Estimated Onset Date: Unspecified ; Created By: LIZ VILLEGAS; Reaction Status: Active ; Category: Drug ; Substance: fenofibrate ; Type: Allergy ; Updated By: LIZ VILLEGAS; Reviewed Date: 02/07/2019 5:08 EDT metFORMIN Estimated Onset Date: Unspecified ; Created By: LIZ VILLEGAS; Reaction Status: Active ; Category: Drug ; Substance: metFORMIN ; Type: Allergy ; Updated By: LIZ VILLEGAS; Reviewed Date: 02/07/2019 5:08 EDT NSAIDs Estimated Onset Date: Unspecified ; Created By: LIZ VILLEGAS; Reaction Status: Active ; Category: Drug ; Substance: NSAIDs ; Type: Allergy ; Updated By: LIZ VILLEGAS; Reviewed Date: 02/07/2019 5:08 EDT rosiglitazone Estimated Onset Date: Unspecified ; Created By: STARLA_SYSTEMLIZ; Reaction Status: Active ; Category: Drug ; Substance: rosiglitazone ; Type: Allergy ; Updated By: LIZ VILLEGAS; Reviewed Date: 02/07/2019 5:08 EDT statins Estimated Onset Date: Unspecified ; Reactions: Fenofibrate, Fenofibrate ; Created By: LIZ VILLEGAS; Reaction Status: Active ; Category: Drug ; Substance: statins ; Type: Allergy ; Updated By: LIZ VILLEGAS; Reviewed Date: 02/07/2019 5:08 EDT Diagnosis Control ED (As Of: 02/07/2019 05:09:32 EDT) Problems(Active) Acid reflux (SNOMED CT :663390493 ) Name of Problem: Acid reflux ; Recorder: MIGEL GARCIA RN; Confirmation: Confirmed ; Classification: Patient Stated ; Code: [id number] ; Contributor System: Pigeonly ; Last Updated: 03/17/2014 19:28 EDT ; Life Cycle Date: 06/24/2013 ; Life Cycle Status: Active ; Vocabulary: SNOMED CT Allergic asthma (SNOMED CT :6925317127 ) Name of Problem: Allergic asthma ; Recorder: MIGEL GARCIA RN; Confirmation: Confirmed ; Classification: Patient Stated ; Code: [id number] ; Contributor System: [email or web address] ; Last Updated: 03/17/2014 19:28 EDT ; Life Cycle Date: 06/24/2013 ; Life Cycle Status: Active ; Vocabulary: SNOMED CT Anxiety depression (SNOMED CT :227262392 ) Name of Problem: Anxiety depression ; Recorder: MIGEL GARCIA RN; Confirmation: Confirmed ; Classification: Patient Stated ; Code: 390244302 ; Contributor System: PowerChart ; Last Updated: 03/22/2014 12:26 EDT ; Life Cycle Date: 06/24/2013 ; Life Cycle Status: Active ; Vocabulary: SNOMED CT Arthritis (SNOMED CT :6534040 ) Name of Problem: Arthritis ; Recorder: MIGEL GARCIA RN; Confirmation: Confirmed ; Classification: Patient Stated ; Code: [id number] ; Contributor System: PowerChart ; Last Updated: 03/17/2014 19:28 EDT ; Life Cycle Date: 06/24/2013 ; Life Cycle Status: Active ; Vocabulary: SNOMED CT BP+ - Hypertension (SNOMED CT :894714515 ) Name of Problem: BP+ - Hypertension ; Recorder: MIGEL GARCIA RN; Confirmation: Confirmed ; Classification: Patient Stated ; Code: 147673739 ; Contributor System: [email or web address] ; Last Updated: 03/22/2014 10:58 EDT ; Life Cycle Date: 06/24/2013 ; Life Cycle Status: Active ; Vocabulary: SNOMED CT Completely occulded L carotid (SNOMED CT :9577129765 ) Name of Problem: Completely occulded L carotid ; Recorder: STEPHANIE ARREGUIN RN; Confirmation: Confirmed ; Classification: Medical ; Code: [id number] ; Contributor System: PowerChart ; Last Updated: 04/23/2016 17:54 EDT ; Life Cycle Date: 04/25/2015 ; Life Cycle Status: Active ; Vocabulary: SNOMED CT Congestive heart failure - due to Avandia resolved (SNOMED CT :61307244 ) Name of Problem: Congestive heart failure - due to Avandia resolved ; Recorder: MIGEL GARCIA RN; Confirmation: Confirmed ; Classification: Patient Stated ; Code: 56336146 ; Contributor System: PowerChart ; Last Updated: 04/23/2016 17:53 EDT ; Life Cycle Date: 06/24/2013 ; Life Cycle Status: Active ; Vocabulary: SNOMED CT ; Comments: 06/24/2013 10:32 - MIGEL GARCIA RN per pt and DM - Diabetes mellitus (SNOMED CT :480826946 ) Name of Problem: DM - Diabetes mellitus ; Recorder: MIGEL GARCIA RN; Confirmation: Confirmed ; Classification: Patient Stated ; Code: 830181394 ; Contributor System: PowerChart ; Last Updated: 03/22/2014 10:54 EDT ; Life Cycle Date: 06/24/2013 ; Life Cycle Status: Active ; Vocabulary: SNOMED CT Dyslipidemia (SNOMED CT :5535727713 ) Name of Problem: Dyslipidemia ; Recorder: MIGEL GARCIA RN; Confirmation: Confirmed ; Classification: Patient Stated ; Code: 1523890814 ; Contributor System: [email or web address] ; Last Updated: 03/17/2014 19:28 EDT ; Life Cycle Date: 06/24/2013 ; Life Cycle Status: Active ; Vocabulary: SNOMED CT H/O ischemic left MCA stroke (SNOMED CT :9394768230 ) Name of Problem: H/O ischemic left MCA stroke ; Onset Date: 09/05/2012 ; Recorder: SYBIL MCGILL MD-EMR; Confirmation: Confirmed ; Classification: Medical ; Code: [id number] ; Contributor System: Pigeonly ; Last Updated: 04/23/2016 17:54 EDT ; Life Cycle Date: 04/23/2016 ; Life Cycle Status: Active ; Responsible Provider: SYBIL MCGILL MD-EMR; Vocabulary: SNOMED CT Hiatal hernia (SNOMED CT :257160928 ) Name of Problem: Hiatal hernia ; Recorder: SYBIL MCGILL MD-EMR; Confirmation: Complaint of ; Classification: Medical ; Code: 643117956 ; Contributor System: Pigeonly ; Last Updated: 12/03/2015 16:45 EST ; Life Cycle Date: 12/03/2015 ; Life Cycle Status: Active ; Vocabulary: SNOMED CT Obesity (SNOMED CT :3433016735 ) Name of Problem: Obesity ; Recorder: SYBIL MCGILL MD-EMR; Confirmation: Confirmed ; Classification: Medical ; Code: [id number] ; Contributor System: [email or web address] ; Last Updated: 04/23/2016 17:53 EDT ; Life Cycle Date: 04/23/2016 ; Life Cycle Status: Active ; Responsible Provider: SYBIL MCGILL MD-EMR; Vocabulary: SNOMED CT Diagnoses(Active) Hip pain-swelling Date: 02/07/2019 ; Diagnosis Type: Reason For Visit ; Confirmation: Complaint of ; Clinical Dx: Hip pain-swelling ; Classification: Medical ; Clinical Service: Non-Specified ; Code: PNED ; Probability: 0 ; Diagnosis Code: [id number] ED Height and Weight Height Source : Stated Height Entry Format : [place] Height, Feet : 5 ft(Converted to: 152 cm, 60 Inch) Height, Inches : 5 Inch(Converted to: 0 ft 5 Inch, 12.70 cm) Clinical Height : 165.1 cm Weight Source, ED : Critical estimated dosing weight Weight Entry Format : [place] Weight, Pounds : 230 lb Clinical Dosing Weight : 104.55 kg Body Surface Area (BSA) : 2.1 m2 Body Mass Index : 38.4 kg/m2 (HI) [place] Body Weight (IBW) : 56.59 kg Leanne Begum Rn - 02/07/2019 5:02 EDT Pain Assessment Pain Assessment : Initial assessment Pain Scale Used : 0-10 Scale Location : Hip, right Leanne Begum Rn - 02/07/2019 5:02 EDT Pain Scale Intensity : 10 Leanne Begum Rn - 02/07/2019 5:02 EDT Image 4 - Images currently included in the form version of this document have not been included in the text rendition version of the form. documented in this encounter Plan of Treatment Not on file documented as of this encounter Visit Diagnoses Not on filedocumented in this encounter
--- OUTSIDE RECORDS SUMMARY | 2025-07-29 11:54 | XMS_ITS | Encounter Summary ---
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 Name Role Phone Unavailable Primary Care Provider Unavailabl e Encounter Details Date Type Department Care Team (Late st Contact Info) Description 07/13/2019 Transcribed Document [facility] [place] Family Medicine [address] [place] [address] ProviderChano MD [address] [place], [place] [id number] Social History Tobacco Use Types Packs/Day Years Used Date Smoking Tobacco: Never Assessed Comments Unknown Sex and Gender Information Value Date Recorded Sex Assigned at Not on file Legal Sex Female 2:07 PM CDT Gender Identity Not on file Sexual Orientation Not on file documented as of this encounter Miscellaneous Notes * Cerner Conversion Note - Chano Gatica MD - 07/13/2019 12:21 PM CDT Patient: LUDY ANTONIO Age: 68 [...] seroquel saw her today in am and d/w d her family per report she better today in am and talk well still on iv abx psychatry also saw her today sh ec/o leg pain and swelling? c/o diarrhea with colace ROS: no fever, no cp or sob, [...] MiraLax: 17 Gram, Oral, Daily, PRN: Constipation Rocephin: 2 Gram, 100 mL/Hr, IV Piggyback, [id number] SEROquel: 6.25 mg, Oral, BID Tylenol: 650 mg, Oral, Q4H, PRN: Pain (Mild 1-3) Valium: 5 mg, Oral, Q6H, PRN: Spasms Zofran: 4 mg, IV Push, Q4H, PRN: Nausea famotidine: 20 mg, Oral, BID formoterol-mometasone 5 mcg-200 mcg/inh inhalation aerosol: 2 Puff, Inhalation, BID insulin lispro sliding scale: Scale A:, SubCutaneous, AC and at Bedtime lisinopril: 40 mg, Oral, At Bedtime loratadine: 10 mg, Oral, At Bedtime metoprolol tartrate: 6.25 mg, Oral, At Bedtime morphine: 2 mg, IV Push, Q2H, PRN: Pain (Severe 7-10) oxyCODONE: 10 mg, Oral, Q6H, PRN: Pain (Moderate 4-6) vancomycin + Sodium Chloride 0.9% intravenous solution 250 mL: 1,500 mg, 250 mL/Hr, IV Piggyback, [id number] Documented Medications Documented Aciphex: 20 mg, Oral, BID Advair Diskus 250 mcg-50 mcg inhalation powder: 1 Puff, Inhalation, Daily, PRN: as needed, 0 Refill(s) Centrum: 1 Tab, Oral, Daily Cymbalta 60 mg oral delayed release capsule: 1 Cap, Oral, At Bedtime, (do not crush or chew) Flonase 0.05 mg/inh nasal spray: 2 [place], Nasal, Daily, 16 Gram, 0 Refill(s) Lantus: [...] Bedtime Flonase 0.05 mg/inh nasal spray 2 [place], Nasal, Daily Lantus 60 Units, SubCutaneous, At [...] Comment , Medications (22) Active Scheduled: (14) cefTRIAXone 2 Gram, IV Piggyback, [id number] divalproex 250 mg EC tab 250 mg [...] insulin lispro 1 unit/0.01 mL inj Scale A:, SubCutaneous, AC and at Bedtime lisinopril 20 mg tab 40 mg 2 Tab, Oral, At Bedtime loratadine 10 mg tab 10 mg 1 Tab, Oral, At Bedtime metoprolol tartrate 25 mg tab 6.25 mg 0.25 Tab, Oral, At Bedtime mometasone/formoterol 200/5 mcg inh 2 Puff, Inhalation, BID QUEtiapine 25 mg tab 6.25 mg 0.25 Tab, Oral, BID vancomycin + NaCl 0.9% 250 mL 1,500 mg, IV Piggyback, [id number] Continuous: (0) PRN: (8) acetaminophen 325 mg [...] list: Medical Wears glasses / SNOMED CT 489153744 / Confirmed Sleep apnea///risk / SNOMED CT 886146814 / Confirmed Colon polyps / SNOMED CT 468869838 / Confirmed Right leg pain / SNOMED CT 0375288965 / Confirmed Obesity / SNOMED CT 1488373560 / Confirmed Numbness and tingling//right leg / SNOMED CT 6681431253 / Confirmed Memory deficit///slow recall / SNOMED CT 5943977204 / Confirmed H/O ischemic left MCA stroke / SNOMED CT 9034791072 / Confirmed Hiatal hernia / SNOMED CT 311887274 / Complaint of Fibromyalgia / SNOMED CT 471962206 / Confirmed Lumbar disc disease / SNOMED CT 2096087794 / Confirmed Completely occulded L carotid / SNOMED CT 4818159804 / Confirmed Chest pain///cath negative / SNOMED CT 39105495 / Confirmed Cataract///beginning stage / SNOMED CT 753492130 / Confirmed Back pain / SNOMED CT 5898410507 / Confirmed At risk for sleep apnea / IMO 33140109 / Confirmed Pain//chronic / SNOMED CT 293966603 / Confirmed, Active Problems (24) Acid reflux [...] (JUL 13 11:00) 97.9 (JUL 13 11:00) 98.1 (JUL 12 17:37) Apical HR 82 (JUL 12 21:47) 82 (JUL 12 21:47) 82 (JUL 12 21:47) Mon HR 86 (JUL 13 11:00) 65 (JUL 13 02:19) 86 (JUL 13 11:00) Resp Rate 16 (JUL 13 11:00) 14 (JUL 12 17:37) 16 (JUL 13 02:19) SBP H 192 (JUL 13 11:00) H 169 (JUL 12 21:42) H 192 (JUL 13 11:00) DBP H 95 (JUL 13 11:00) L 57 (JUL 12 21:42) H 95 (JUL 13 11:00) MAP 120 (JUL 13 11:00) 82 (JUL 12 21:42) 120 (JUL 13 11:00) SpO2 95 (JUL 13 02:19) 95 (JUL 13 02:19) 98 (JUL 12 21:42) General: Mild distress. Neck: Supple, Non-tender, No jugular venous distention. Respiratory: Breath sounds are equal, Symmetrical chest wall expansion, No chest wall tenderness. Cardiovascular: Normal rate, No murmur, No gallop. Gastrointestinal: Soft, Non-tender, Normal bowel sounds. Musculoskeletal: No tenderness, No deformity. Integumentary: Warm, Intact, No pallor. Neurologic: Alert. Psychiatric: Cooperative. Results Review Lab and test: Labs (Last four charted values) WBC 8.4 (JUL 12) 8.2 (JUL 11) 7.9 (JUL 09) 9.1 (JUL 08) HB 11.5 (JUL 12) 11.5 (JUL 11) 12.6 (JUL 09) 12.0 (JUL 08) HCT 35.7 (JUL 12) 35.6 (JUL 06) 39.8 (JUL 04) 37.3 (JUL 03) Plt 263 (JUL 07) 230 (JUL 06) 267 (JUL 04) 268 (JUL 03) Na 142 (JUL 07) 140 (JUL 06) 142 (JUL 04) 141 (JUL 03) K 3.8 (JUL 07) 4.2 (OCT 06) 4.4 (OCT 04) 3.9 (JUL 03) Cl 104 (JUL 07) 104 (JUL 06) 106 (JUL 04) 105 (JUL 03) CO2 31 (JUL 07) 31 (JUL 11) 27 (JUL 09) 30 (JUL 03) BUN 14 (JUL 07) 14 (OCT 06) 19 (JUL 04) 20 (JUL 03) Cr 0.90 (JUL 07) 0.90 (JUL 06) H 1.10 (JUL 04) 1.00 (JUL 03) Glu R H 202 (JUL 07) H 248 (JUL 06) H 207 (JUL 04) H 153 (JUL 03) Ca 9.0 (JUL 07) 9.0 (OCT 06) 9.4 (OCT 04) 9.7 (JUL 03) PT 9.9 (JUL 04) 10.1 (JUL 03) INR 0.9 (JUL 04) 0.9 (OCT 03) PTT 28.0 (JUL 08) AST 18 [...] vanco 5. leg doppler arteria and venous 6. pain control 7. Bp control 8. lovenox sq for DVT prophylaxis 9. cont low dose seroquel 6.25 bid, may increase dose 10. d/c stool softner 11. d/w family and nurse and cm Electronically signed by Julian Wheeler Conversion [employer] Managed [employer] Sales Exec Cerner at 01/23/2023 1:10 PM CDT documented in this encounter Plan of Treatment Not on file documented as of this encounter Visit Diagnoses Not on filedocumented in this encounter
--- OUTSIDE RECORDS SUMMARY | 2025-07-29 11:54 | XMS_ITS | Encounter Summary ---
Author Organization [employer] ([place], [place], [place], [place]) Address [address] [place] [address] Care Team Providers Care Preparation Department Supervisor Name Role Phone Unavailable Primary Care Provider Unavailabl e Encounter Details Date Type Department Care Team (Late st Contact Info) Description 12/04/2018 Transcribed Document [facility] [place] Family Medicine [facility] [place] [address] ProviderChano MD [address], [place] [phone] Social History Tobacco Use Types Packs/Day Years Used Date Smoking Tobacco: Never Assessed Comments Unknown Sex and Gender Information Value Date Recorded Sex Assigned at Not on file Legal Sex Female 2:07 PM CDT Gender Identity Not on file Sexual Orientation Not on file documented as of this encounter Miscellaneous Notes * Cerner Conversion Note - Chano Gatica MD - 12/04/2018 12:06 PM GLOBAL RECRUITER Patient: LUDY ANTONIO Age: 68 years Sex: Female : 1950 Associated Diagnoses: Muscle strain of left lower leg Author: GENEVA RAMOS MD Basic Information Additional information: Chief Complaint from Nursing Triage Note : Chief Complaint 12/04/2018 11:57 EST Chief Complaint pt here c/o left leg pain states that shes unable to put weight on the leg +pms states decreased sensation to left foot . History of Present Illness 68-year-old female presenting to the emergency department with left leg pain. Patient does have a history of chronic leg pain from an injury to her head. Patient states that she was at a show and walked up a bunch of stairs yesterday when she noticed some discomfort in her left leg. She is having some throbbing in her left hip or left knee. She denies any fall or direct trauma. No recent travel. No erythema, no fevers or chills. Denies any inoculation. No chest pain, shortness of breath. No abdominal pain, vomiting. No headache, change of vision, focal weakness. Review of Systems Constitutional symptoms: No fever, no weakness. Skin symptoms: No rash, Eye symptoms: Vision unchanged. Respiratory symptoms: No shortness of breath, Cardiovascular symptoms: No chest pain, no syncope. Gastrointestinal symptoms: No abdominal pain, no nausea, no vomiting. Musculoskeletal symptoms: Muscle pain, Joint pain. Neurologic symptoms: No headache, no dizziness. Hematologic/Lymphatic symptoms: Bleeding tendency negative, Health Status Allergies: Allergic Reactions (Selected) Severity Not Documented Avandia- Chf. Fenofibrate- No reactions were documented. MetFORMIN- No reactions were documented. NSAIDs- No reactions were documented. Rosiglitazone- No reactions were documented. Statins- Fenofibrate and fenofibrate.. Medications: (Selected) Inpatient Medications Ordered [place] 5 mg-325 mg oral tablet: 2 Tab, Oral, 1-Time Documented Medications Documented Aciphex: 20 mg, Oral, BID Centrum: 1 Tab, Oral, Daily Cymbalta 60 mg oral delayed release capsule: 1 Cap, Oral, Daily, (do not crush or chew) Flonase 0.05 mg/inh nasal spray: 2 [place], Nasal, Daily, 16 Gram, PRN: Allergies Lantus: 60 Units, SubCutaneous, At Bedtime, 0 Refill(s) Lasix 20 mg oral tablet: 1 Tab, Oral, Daily, weight gain/fluid retention, PRN: Other (See Comment), 0 Refill(s) Lortab 10/500 oral tablet: 1 Tab, Oral, Q6H, 15 Tab, PRN: for pain Metoprolol Tartrate: 12.5 mg, Oral, QAM, 0 Refill(s) NovoLog: SubCutaneous, TIDAC, 3 times a day- sliding scale., 0 Refill(s) Plavix 75 mg oral tablet: 1 Tab, Oral, Daily, 30 Tab Ultram 50 mg oral tablet: 2 Tab, Oral, Q6H, PRN: for pain Vitamin D with Minerals oral tablet: 1 Tab, Oral, Daily, 0 Refill(s) lisinopril 40 mg oral tablet: 1 Tab, Oral, Daily, 0 Refill(s) loratadine 10 mg oral tablet: 1 Tab, Oral, Daily, 30 Tab metoprolol tartrate: 6.25 mg, Oral, BID, 0 Refill(s) potassium chloride-sodium chloride: 20 mEq, Oral, Daily, taken as needed with lasix, PRN: Other (See Comment), 0 Refill(s). Past Medical/ Family/ Social History Surgical history: heart catheterization. Comments: 06/24/2013 07:44 - MIGEL GARCIA RN negative cath left hip replacement. right and left shoulder repair. achilles repair. Appendectomy ([id number]). Cholecystectomy (72459944). Tonsillectomy ([id number]).. Family history: No family history items have been selected or recorded.. Social history: Social & Psychosocial Habits Alcohol 06/24/2013 Alcohol Use in Last Twelve Months No Employment/School 07/17/2014 Status: Retired Previous employment/school: [employer] Home/Environment 07/17/2014 Lives with: Spouse Living situation: Home with assistance Substance Abuse 06/24/2013 Recreational Drug Use History No Tobacco 06/24/2013 Tobacco Use Within Last Twelve Months Cigarettes Smoking Status Former smoker Years of Tobacco Use 1 Packs/Tins Daily 0.5 Month Tobacco Last Used teenager . Problem list: Active Problems (12) Acid reflux Allergic asthma Anxiety depression Arthritis BP+ - Hypertension Completely occulded L carotid Congestive heart failure - due to Avandia resolved DM - Diabetes mellitus Dyslipidemia H/O ischemic left MCA stroke Hiatal hernia Obesity . Physical Examination Vital Signs Vital Signs/Vital Measures 12/04/2018 11:57 EST Temperature Source Oral Temperature Mode Fahrenheit Temperature, Fahrenheit 98 Deg F Clinical Temperature, C 36.7 Deg C Peripheral Pulse Rate 80 bpm Respiratory Rate 16 Breaths/Min Systolic Blood Pressure 143 mmHg HI Diastolic Blood Pressure 61 mmHg Oxygen Saturation 94 % Oxygen Therapy Mode Room air . General: Alert, no acute distress. Skin: Warm, intact. Eye: Pupils are equal, round and reactive to light, normal conjunctiva. Ears, nose, mouth and throat: Oral mucosa moist. Neck: Supple, no tenderness. Cardiovascular: Regular rate and rhythm, No murmur. Respiratory: Lungs are clear to auscultation, breath sounds are equal. Gastrointestinal: Soft, Nontender, Non distended. Back: Nontender, Normal range of motion. Musculoskeletal: Lower extremity: Left, hip, knee, tenderness, swelling, no erythema, no ecchymosis, no effusion. Neurological: Alert and oriented to person, place, time, and situation, No focal neurological deficit observed, normal sensory observed, normal motor observed, normal speech observed. Medical Decision Making Differential Diagnosis: Deep vein thrombosis, superficial thrombophlebitis, arthritis, degenerative joint disease, contusion, sprain, strain, fracture. Rationale: 68-year-old female presenting with left leg pain. Patient had increased activity last night. Likely strain. Workup will be initiated.. Documents reviewed: Emergency department nurses' notes. Radiology results: Radiology Results (Last 48 hours) [id number] -- 12/04/2018 11:53 US Veins LE Duplex LTD LT (12/04/2018 12:35) Result: LEFT LOWER EXTREMITY VENOUS DUPLEX DOPPLER EXAMINATIONHISTORY: Left lower extremity swelling .PROCEDURE: Multiple transverse and longitudinal scans were performed ofthe femoropopliteal deep venous system, with augmentation andcompression maneuvers.FINDINGS: Normal phasic flow was noted in the visualized deep venoussystem. No intraluminal increased echogenicity is noted to suggestthrombus. There is normal compression and augmentation of the venousstructures. No abnormal venous collaterals are seen. There is aheterogeneous 31 mm mass within the upper calf, this may represent ahematoma, seroma or abscess.IMPRESSION: No evidence of left lower extremity deep venous thrombosis.Heterogeneous mass within the upper calf, may represent a hematoma,seroma or abscess. Six-week follow-up recommended.Images reviewed, interpreted, and dictated by Dr. Darvin Marcos.Transcribed by Franc Michel PA-C. , X-ray did not show any significant fracture or dislocation. Patient is chronic arthritis.. Reexamination/ Reevaluation Time: 12/04/2018 13:36:00 . Notes: On reevaluation, patient's pain is improved. She states that she does have [place] at home. I did instruct her to provide ice and rest the leg to help with the recent injury. Ultrasound found a nonspecific finding concerning for hematoma versus abscess. The patient is not having any fever or chills. No redness at the site. She will obtain follow-up with her primary care physician for this.. Impression and Plan Diagnosis Muscle strain of left lower leg - Discharge, Medical Plan Condition: Improved. Disposition: Discharged Admit/Transfer/Discharge: Discharge (Order): Start: 12/04/2018 13:37 EST, Discharge to: Home. Patient was given the following educational materials: Muscle Strain. Follow up with: KATHIE NIEVES Within 2 to 3 days. Counseled: Patient, Family, Regarding diagnosis, Regarding diagnostic results, Regarding treatment plan, Regarding prescription, Patient indicated understanding of instructions. documented in this encounter Plan of Treatment Not on file documented as of this encounter Visit Diagnoses Not on filedocumented in this encounter
--- OUTSIDE RECORDS SUMMARY | 2025-07-29 11:54 | XMS_ITS | Encounter Summary ---
Author Organization [employer] ([place], [place], [place], [place]) Address [address] [place] [address] Care Team Providers Care Cinder Block Maker Name Role Phone Unavailable Primary Care Provider Unavailabl e Encounter Details Date Type Department Care Team (Late st Contact Info) Description 12/04/2018 Transcribed Document [facility] [place] [facility] [place] [address] ProviderChano MD [facility] [place], [place] [id number] Social History Tobacco Use Types Packs/Day Years Used Date Smoking Tobacco: Never Assessed Comments Unknown Sex and Gender Information Value Date Recorded Sex Assigned at Not on file Legal Sex Female 2:07 PM CDT Gender Identity Not on file Sexual Orientation Not on file documented as of this encounter Miscellaneous Notes * Cerner Conversion Note - Chano ProviderMD - 12/04/2018 1:53 PM COOK CHILL TECHNICIAN [address] [address] Patient Information Name: LUDY ANTONIO Age: 68 Years Date of : 1950 Arrival Time: 12/04/2018 11:53:00 Diagnosis Muscle strain of left lower leg Primary Care Physician: QUIRINO SENIOR (REF) Provider Information Primary Provider: GENEVA RAMOS Secondary Provider: LUDY ANTONIO has been given the following list of patient education materials, prescriptions and follow-up instructions: Follow-up Instructions: With: Address: When: [facility] Within 2 to 3 days Comments: Patient is estabished with Dave Senior. Patient was given a referral [facility] to [facility] and instructed to give it to Dr. Senior at her next follow-up. Please contact the [facility] at [phone] if you need assistance establishing a primary care physician in the future. With: Address: When: [address] [place], [place] [id number] [employer] (1) Within 2 to 3 days With: Address: When: [address] [place] [id number] [facility] (8) Within 2 to 3 days Patient Education Materials: Muscle Strain A muscle strain is an injury that occurs when a muscle is stretched beyond its normal length. Usually a small number of muscle fibers are torn when this happens. Muscle strain is rated in degrees. First-degree strains have the least amount of muscle fiber tearing and pain. Second-degree and third-degree strains have increasingly more tearing and pain. Usually, recovery from muscle strain takes 1?2 weeks. Complete healing takes 5?6 weeks. What are the causes? Muscle strain happens when a sudden, violent force placed on a muscle stretches it too far. This may occur with lifting, sports, or a fall. What increases the risk? Muscle strain is especially common in athletes. What are the signs or symptoms? At the site of the muscle strain, there may be: ??? Pain. ??? Bruising. ??? Swelling. ??? Difficulty using the muscle due to pain or lack of normal function. How is this diagnosed? Your health care provider will perform a physical exam and ask about your medical history. How is this treated? Often, the best treatment for a muscle strain is resting, icing, and applying cold compresses to the injured area. Follow these instructions at home: ??? Use the SIDDIQUI method of treatment to promote muscle healing during the first 2?3 days after your injury. The SIDDIQUI method involves: ? Protecting the muscle from being injured again. ? Restricting your activity and resting the injured body part. ? Icing your injury. To do this, put ice in a plastic bag. Place a towel between your skin and the bag. Then, apply the ice and leave it on from 15?20 minutes each hour. After the third day, switch to moist heat packs. ? Apply compression to the injured area with a splint or elastic bandage. Be careful not to wrap it too tightly. This may interfere with blood circulation or increase swelling. ? Elevate the injured body part above the level of your heart as often as you can. ??? Only take islx-fam-ljebnzd or prescription medicines for pain, discomfort, or fever as directed by your health care provider. ??? Warming up prior to exercise helps to prevent future muscle strains. Contact a health care provider if: ??? You have increasing pain or swelling in the injured area. ??? You have numbness, tingling, or a significant loss of strength in the injured area. This information is not intended to replace advice given to you by your health care provider. Make sure you discuss any questions you have with your health care provider. Document Released: 09/22/2006 Document Revised: 02/27/2017 Document Reviewed: 04/21/2014 [employer] Patient Education ? 2017 [employer] Allergies: metFORMIN; NSAIDs; statins; Avandia; rosiglitazone; fenofibrate Medication Information: Laboratory or Other Results This Visit (last charted value for your 12/04/2018 visit) No Laboratory or Other Results This Visit Medication Comment: Procedures: Laboratory Orders No laboratory orders were placed. Radiology Orders Name Status CR Hip Uni Comp Min 2 Vws LT Ordered CR Knee 3 Vws LT Ordered US Veins LE Duplex LTD LT Ordered Cardiology Orders No cardiology orders were placed. This statement is to verify that LUDY ANTONIO was seen at [facility] Emergency Department on ,12/04/2018 13:53:04. This is not a work excuse, if a work excuse was needed it will be in addition to this statement as a separate form. IMPORTANT: The examination and treatment you have received [...] that requires the expertise of a specialist. KEEP IN MIND THAT THE SPECIALIST HAS HIS/HER OWN OFFICE POLICIES WHICH MAY REQUIRE PROPER INSURANCE OR PAYMENT UP FRONT BEFORE THE SPECIALIST WILL SEE YOU. It is your responsibility to call the specialist physician to make an appointment. We do not have the ability to identify specialists/physicians that work with specific insurance companies. [...] necessary to obtain coverage for claims submitted. If you had special tests, such as EKG???s or X-rays, the interpretation of your tests given to you by the Emergency Dept. Physician is a preliminary report. Some fractures and illnesses fail to show up on preliminary tests. We will review them again within 24-48 hours. We will call you if there are any new suggestions. If your symptoms continue notify your physician. After you leave, you should follow the instructions below. In all events, you may obtain a copy of your Emergency Department visit from Medical Records. Please call to be directed to this department. We will bill your insurance; however, you are responsible today for any co-pay amounts. You will receive a separate bill for any services you may have received including: emergency, radiology, or pathology physicians. Please be sure we have an accurate contact phone number and address, should we need to call you for any reason. CIGARETTE SMOKING: The facts are clear; cigarette smoking will shorten your life. Smoking can cause many illnesses along the way. As a healthcare provider, [facility] recommends that you stop smoking. Assistance with quitting is available by contacting 0-395-HLCT-NOW. This is a free resource providing counseling, support, and referral. Or you may contact your personal physician. As part of your treatment plan, [...] cramping, rapid heartbeat, difficulty sleeping, and nervousness. The home medications listed are only as accurate as the information you provided. Please continue taking all of your medications prescribed by your Primary Care Provider unless specifically told to change or discontinue the medication. Please direct any questions regarding your home medications to your Primary Care Provider. YOU ARE THE MOST IMPORTANT FACTOR IN YOUR RECOVERY. ?? Follow your instructions carefully ?? Take your medicines as prescribed ?? Most important, see a provider as discussed. If you do not have a provider, we can provide a list of clinics Confidential This message and accompanying documents are covered by Electronic Communications Privacy Act 18 U.S.C. ???Sections 6596-2999,?? and contain information intended for the specified individual(s) only. This information is confidential. If you are not the intended recipient or an agent responsible for delivering it to the intended recipient, you are hereby notified that you have received the document in error and that any review, dissemination, copying, or the taking of any action based on the contents of this information is strictly prohibited. If you have received this communication in error, please notify us immediately by email, and delete the original message. 4 WAYS TO GET AHEAD OF SEPSIS SEPSIS is a MEDICAL EMERGENCY. Time matters! Infections put you and your family at risk for a life-threatening condition called sepsis. Sepsis is the body???s extreme response to an infection. It is life-threatening, and without timely treatment, sepsis can rapidly lead to tissue damage, organ failure, and . Sepsis happens when an infection you already have???in your skin, lungs, urinary tract or somewhere else???triggers a chain reaction throughout your body. 1 [...] sepsis or if you have an infection that???s not getting better or is getting worse. To learn more about sepsis and how to prevent infections, visit www.cdc.gov/sepsis. STROKE is an EMERGENCY Every [employer] ACT F.A.S.T! FACE ?? Facial droop ?? Uneven smile ARM ?? Arm numbness ?? Arm weakness SPEECH ?? Slurred speech ?? Difficulty speaking or understanding TIME ?? Call 911 and get to the hospital immediately Have the ambulance go to the nearest stroke center. STROKE Risk Factors High blood pressure High cholesterol Heart Disease Diabetes Smoking Heavy alcohol use Physical inactivity and obesity Atrial Fibrillation (irregular heartbeat) Family history of stroke Acknowledgment I hereby acknowledge receipt of these instructions and information above. I understand that I have received Emergency Treatment only which is not a substitute for complete medical care and acknowledge that all of my medical problems may not be known, identified, or treated prior to my release. I UNDERSTAND THE NEED TO ARRANGE FOLLOW-UP CARE WITH THE PHYSICIAN INDICATED. I UNDERSTAND THAT I SHOULD CONTACT MY PHYSICIAN IMMEDIATELY OR RETURN TO THE EMERGENCY DEPARTMENT IF MY CONDITION WORSENS, FAILS TO IMPROVE, OR NEW SYMPTOMS APPEAR. Vital Signs B/P PULSE RESP. RATE TEMPERATURE PULSE OX Signature of Emergency Provider Date / Time Signature of Emergency Nurse Date / Time Reminder: Be sure to sign up for the [employer] patient portal, which gives you 28/04 access to your medical information ??? including these discharge instructions ??? using your computer, smartphone, or tablet. Just go to [email or web address] to get started. Questions? Call . Acknowledgment I hereby acknowledge receipt of these instructions and information above. I understand that I have received Emergency Treatment only which is not a substitute for complete medical care and acknowledge that all of my medical problems may not be known, identified, or treated prior to my release. I UNDERSTAND THE NEED TO ARRANGE FOLLOW-UP CARE WITH THE PHYSICIAN INDICATED. I UNDERSTAND THAT I SHOULD CONTACT MY PHYSICIAN IMMEDIATELY OR RETURN TO THE EMERGENCY DEPARTMENT IF MY CONDITION WORSENS, FAILS TO IMPROVE, OR NEW SYMPTOMS APPEAR. Signature of Patient / Responsible Person Date / Time Please provide a telephone number where you can be reached. The best time to call is between: It is permissable to leave a message if no answer: Yes____ No____ Nurse Providing Instructions: Emergency Physician: Electronically signed by Julian Wheeler Conversion Physical Therapy Supervisor Januaryner at 01/23/2023 1:10 PM CDT documented in this encounter Plan of Treatment Not on file documented as of this encounter Visit Diagnoses Not on filedocumented in this encounter
--- OUTSIDE RECORDS SUMMARY | 2025-07-29 11:54 | XMS_ITS | Encounter Summary ---
Author Organization [employer] ([place], [place], [place], [place]) Address [address] [place] [address] Care Team Providers Care Steel Handler Name Role Phone Unavailable Primary Care Provider Unavailabl e Encounter Details Date Type Department Care Team (Late st Contact Info) Description 02/07/2019 Transcribed Document [facility] [place] [facility] [place] [address] ProviderChano MD [address] [place], [place] [phone] Social History Tobacco Use Types Packs/Day Years Used Date Smoking Tobacco: Never Assessed Comments Unknown Sex and Gender Information Value Date Recorded Sex Assigned at Not on file Legal Sex Female 2:07 PM CDT Gender Identity Not on file Sexual Orientation Not on file documented as of this encounter Miscellaneous Notes * Cerner Conversion Note - Historical ProviderMD - 02/07/2019 6:05 AM CDT ED Discharge Entered On: 02/07/2019 6:05 EDT Performed On: 02/07/2019 6:05 EDT by Leanne Begum Batch Unloader Process Patient Disposition : Discharge Personal Belongings With Patient : Yes Patient Education Completed : Yes Teaching Evaluation : Verbalizes understanding IV Discontinued : Not applicable Nursing Documentation Completed : Yes Leanne Begum Rn - 02/07/2019 6:05 EDT ED Discharge Discharge To : Home with ambulatory/outpatient follow-up Mode Of Departure : Wheelchair Accompanied By : Significant other Discharge Instructions Reviewed With, Opportunity For Questions Given : Patient Prescriptions Given to Patient : No Medications Given to Patient : No Leanne Begum Rn - 02/07/2019 6:05 EDT documented in this encounter Plan of Treatment Not on file documented as of this encounter Visit Diagnoses Not on filedocumented in this encounter
--- OUTSIDE RECORDS SUMMARY | 2025-07-29 11:54 | XMS_ITS | Encounter Summary ---
Author Organization [employer] ([place], [place], [place], [place]) Address [address] [place] [address] Care Team Providers Care Vp Information Technology Name Role Phone Unavailable Primary Care Provider Unavailabl e Encounter Details Date Type Department Care Team (Late st Contact Info) Description 02/07/2019 Transcribed Document [facility] [place] [address] [place] [address] ProviderChano MD [address] [place], [place] [phone] Social History Tobacco Use Types Packs/Day Years Used Date Smoking Tobacco: Never Assessed Comments Unknown Sex and Gender Information Value Date Recorded Sex Assigned at Not on file Legal Sex Female 2:07 PM CDT Gender Identity Not on file Sexual Orientation Not on file documented as of this encounter Miscellaneous Notes * Cerner Conversion Note - Historical ProviderMD - 02/07/2019 6:44 PM CDT CR Hip Uni Comp Min 2 Vws RT Ordered: 02/07/2019 Auth (Verified) Reason for Exam: pain 02/07/2019 08:26 02/07/2019 18:44 (TRACEY AZUL PA) Reviewed by Provider, No further action required X1 Electronically signed by Summer [facility] Conversion Ultrasound Technologist Sonographer Cerner at 01/23/2023 1:14 PM CDT documented in this encounter Plan of Treatment Not on file documented as of this encounter Visit Diagnoses Not on filedocumented in this encounter
--- OUTSIDE RECORDS SUMMARY | 2025-07-29 11:54 | XMS_ITS | Encounter Summary ---
Author Organization [employer] ([place], [place], [place], [place]) Address [address] [place] [address] Care Team Providers Care Medical Or Surgical Instrument Maker Name Role Phone Unavailable Primary Care Provider Unavailabl e Encounter Details Date Type Department Care Team (Late st Contact Info) Description 03/25/2021 Transcribed Document [facility] [place] [address] [place] [address] ProviderChano MD [address] [place], [place] [phone] Social History Tobacco Use Types Packs/Day Years Used Date Smoking Tobacco: Never Assessed Comments Unknown Sex and Gender Information Value Date Recorded Sex Assigned at Not on file Legal Sex Female 2:07 PM CDT Gender Identity Not on file Sexual Orientation Not on file documented as of this encounter Miscellaneous Notes * Cerner Conversion Note - Historical ProviderMD - 03/25/2021 10:24 PM CDT Broset Violence Assessment Entered On: 03/25/2021 23:05 EDT Performed On: 03/25/2021 23:05 EDT by MIGEL ANDREW Rn Broset Violence Assessment Broset Violence Checklist of Symptoms : None Broset Violence Symptoms Subtotal : 0 Broset Violence Symptoms Indicator : Low risk (0) MIGEL ANDREW Rn - 03/25/2021 23:05 EDT documented in this encounter Plan of Treatment Not on file documented as of this encounter Visit Diagnoses Not on filedocumented in this encounter
--- OUTSIDE RECORDS SUMMARY | 2025-07-29 11:54 | XMS_ITS | Encounter Summary ---
Author Organization [employer] ([place], [place], [place], [place]) Address [address] [place] [address] Care Team Providers Care Turf Manager Name Role Phone Unavailable Primary Care Provider Unavailabl e Encounter Details Date Type Department Care Team (Late st Contact Info) Description 04/05/2019 Transcribed Document [facility] [place] [facility] [place] [address] ProviderChano MD [address] [place], [place] [phone] Social History Tobacco Use Types Packs/Day Years [...] PM CDT Pain Assessment Entered On: 04/05/2019 17:59 EDT Performed On: 04/05/2019 17:58 EDT by HOLDEN CUEVAS RN Intervention Information: fentaNYL Performed by HOLDEN CUEVAS RN on 04/05/2019 17:40:00 EDT fentaNYL,25mcg IV Push,Left Mid Forearm,Pain (Moderate 4-6) Pain Assessment Pain Assessment : Follow-up assessment Pain Scale Goal : 2 Pain Scale Used : 0-10 Scale Location : Back, lower Onset : Chronic Quality : Throbbing Pain Improved by : Medication, Repositioning Pain Intervention, Drug : Medicated Pain Improved by Intervention : No HOLDEN CUEVAS RN - 04/05/2019 17:58 EDT Pain Scale Intensity : 7 HOLDEN CUEVAS RN - 04/05/2019 17:58 EDT Image 4 - Images currently included in the form version of this document have not been included in the text rendition version of the form. documented in this encounter Plan of Treatment Not on file documented as of this encounter Visit Diagnoses Not on filedocumented in this encounter
--- OUTSIDE RECORDS SUMMARY | 2025-07-29 11:54 | XMS_ITS | Encounter Summary ---
Author Organization [employer] ([place], [place], [place], [place]) Address [address] [place] [address] Care Team Providers Care Plowing Gardens Name Role Phone Unavailable Primary Care Provider Unavailabl e Encounter Details Date Type Department Care Team (Late st Contact Info) Description 02/07/2019 Transcribed Document [facility] [place] [facility] [place] [address] ProviderChano MD [facility] [place], [place] [id number] Social History Tobacco Use Types Packs/Day Years Used Date Smoking Tobacco: Never Assessed Comments Unknown Sex and Gender Information Value Date Recorded Sex Assigned at Not on file Legal Sex Female 2:07 PM CDT Gender Identity Not on file Sexual Orientation Not on file documented as of this encounter Miscellaneous Notes * Cerner Conversion Note - Chano Gatica MD - 02/07/2019 5:36 AM CDT Patient: LUDY ANTONIO Age: 68 years Sex: Female : 1950 Associated Diagnoses: Acute right hip pain Author: RASHEL GRAVES MD Basic Information Time seen: Date & time 02/07/2019 05:36:00. History source: Patient. Arrival mode: Ambulance. History limitation: None. Additional information: Chief Complaint from Nursing Triage Note : Chief Complaint 02/07/2019 5:02 EDT Chief Complaint patient c/o right hip pain 07/15, danced at a wedding yesterday and stiffness began shortly after, began hurting a few hours later, now can't stand or walk . History of Present Illness This is a 68-year-old female with a past medical history significant for hypertension, HLD, diabetes, arthritis, left hip replacement who presents to the emergency department for evaluation of right hip pain that started yesterday. She was dancing at a wedding and became stiff shortly thereafter. No trauma or fall. She feels like something is out of socket . She tried taking oxycodone about 2-1/2 hours ago and is currently on steroids for a sinus infection and none of these therapies have helped her. She states the pain is on the outside of her right hip and radiates down the outside of her leg. Any movement makes the pain worse, nothing in particular makes it better. Review of Systems Additional review of systems information: 10 point review of systems reviewed and negative except as stated in history of present illness . Health Status Allergies: Allergic Reactions (Selected) Severity [...] chew) Flonase 0.05 mg/inh nasal spray: 2 [place], Nasal, Daily, 16 Gram, PRN: Allergies Lantus: [...] lasix, PRN: Other (See Comment), 0 Refill(s), per nurse's notes. Immunizations: Per nurse's notes. Past Medical/ Family/ Social History Medical history Reviewed as documented in chart. Surgical history: Reviewed as documented in chart. Family history: Reviewed as documented in chart. Social history: Reviewed as documented in chart. Problem list: Active Problems (12) Acid reflux Allergic asthma Anxiety depression Arthritis BP+ - Hypertension Completely occulded L carotid Congestive heart failure - due to Avandia resolved DM - Diabetes mellitus Dyslipidemia H/O ischemic left MCA stroke Hiatal hernia Obesity , per nurse's notes. Physical Examination Vital Signs Vital Signs/Vital Measures 02/07/2019 5:02 EDT Temperature Source Oral Temperature Mode Fahrenheit Temperature, Fahrenheit 98.2 Deg F Clinical Temperature, C 36.8 Deg C Peripheral Pulse Rate 65 bpm Respiratory Rate 18 Breaths/Min Systolic Blood Pressure 182 mmHg HI Diastolic Blood Pressure 77 mmHg Oxygen Saturation 95 % Oxygen Therapy Mode Room air . General: Alert, no acute distress. Skin: No rash, normal for ethnicity, Not cyanotic, Head: Normocephalic. Eye: Sclera: not icteric. Cardiovascular Respiratory: Respirations are non-labored. Musculoskeletal: RLE: No pain with passive range of motion of flexion and extension. She does have pain with internal rotation along the outside of her leg and outside of the right hip. No pain with external rotation. No obvious deformity. Sensation grossly intact distally. 2+ DP and PT pulses. Equal leg length.. Psychiatric: Cooperative. Medical Decision Making Documents reviewed: Emergency department nurses' notes, prior records. Pelvis x-ray findings Normal alignment, no fracture, interpretation by Emergency Physician. Hip x-ray findings Normal alignment, no fracture, interpretation by Emergency Physician. Notes: X-ray of the pelvis and right hip show no acute fracture or dislocation. She does have some arthritic changes in the right hip. She is neurovascularly intact distally. With pain with internal rotation of pain along the outside of her leg I would suspect some irritation of the iliotibial pain. She has already taken narcotics, steroids, so I do not want to give any more anti-inflammatories. I offered Tylenol, but she declined. She has a walker at home to help her with. I offered crutches and she declined these as well. Discharged home with advice to use gentle stretching, ice and follow-up with primary care provider to consider physical therapy if symptoms persist despite the use of conservative therapy over the next 2-3 days.. Impression and Plan Diagnosis Acute right hip pain - Discharge, Medical Plan Condition: Stable. Disposition: Discharged Admit/Transfer/Discharge: Discharge (Order): Start: 02/07/2019 5:43 EDT, Discharge to: Home. Patient was given the following educational materials: Hip Pain, Joint Pain. Follow up with: QUIRINO (DOUG SENIOR Within 2 to 3 days. Counseled: Patient, Regarding diagnosis, Regarding diagnostic results, Regarding treatment plan, Patient indicated understanding of instructions. documented in this encounter Plan of Treatment Not on file documented as of this encounter Visit Diagnoses Not on filedocumented in this encounter
--- OUTSIDE RECORDS SUMMARY | 2025-07-29 11:54 | XMS_ITS | Encounter Summary ---
Author Organization [employer] ([place], [place], [place], [place]) Address [address] [place] [address] Care Team Providers Care Pattern Maker Name Role Phone Unavailable Primary Care Provider Unavailabl e Encounter Details Date Type Department Care Team (Late st Contact Info) Description 12/04/2018 Transcribed Document [facility] [place] Family Medicine [address] [place] [address] ProviderChano MD [address], [place] [id number] Social History Tobacco Use Types Packs/Day Years Used Date Smoking Tobacco: Never Assessed Comments Unknown Sex and Gender Information Value Date Recorded Sex Assigned at Not on file Legal Sex Female 2:07 PM CDT Gender Identity Not on file Sexual Orientation Not on file documented as of this encounter Miscellaneous Notes * Cerner Conversion Note - Historical ProviderMD - 12/04/2018 12:03 PM ENDODONTICS DENTIST Pain Assessment Entered On: 12/04/2018 13:24 EST Performed On: 12/04/2018 13:24 EST by ANKIT SONI RN Intervention Information: acetaminophen-HYDROcodone Performed by Abhilash Chester, Emergency Room Automotive Power Electronics Engineer on 12/04/2018 12:11:00 EST acetaminophen-HYDROcodone,2Tab Oral Pain Assessment Pain Assessment : Follow-up assessment Pain Scale Used : 0-10 Scale ANKIT SONI RN - 12/04/2018 13:24 EST Pain Scale Intensity : 4 ANKIT SONI RN - 12/04/2018 13:24 EST Image 4 - Images currently included in the form version of this document have not been included in the text rendition version of the form. Electronically signed by Julian Wheeler Conversion Envelope Sealing Machine Operator Cerner at 01/23/2023 1:29 PM CDT documented in this encounter Plan of Treatment Not on file documented as of this encounter Visit Diagnoses Not on filedocumented in this encounter
--- OUTSIDE RECORDS SUMMARY | 2025-07-29 11:54 | XMS_ITS | Encounter Summary ---
Author Organization [employer] ([place], [place], [place], [place]) Address [address] [place] [address] Care Team Providers Care Marklogic Developer Name Role Phone Unavailable Primary Care Provider Unavailabl e Encounter Details Date Type Department Care Team (Late st Contact Info) Description 04/01/2019 Transcribed Document [facility] [place] Family Medicine [address] [place] [address] ProviderChano MD [address], [place] [id number] Social History Tobacco Use Types Packs/Day Years Used Date Smoking Tobacco: Never Assessed Comments Unknown Sex and Gender Information Value Date Recorded Sex Assigned at Not on file Legal Sex Female 2:07 PM CDT Gender Identity Not on file Sexual Orientation Not on file documented as of this encounter Miscellaneous Notes * Cerner Conversion Note - Chano ProviderMD - 04/01/2019 10:40 AM CDT PAT Adult Entered On: 04/01/2019 10:50 EDT Performed On: 04/01/2019 10:40 EDT by BIANKA DUNN RN Vital Measurements Temperature Source : Temporal artery scanning Temperature Mode : Fahrenheit Temperature, Fahrenheit : 98.9 Deg F Clinical Temperature, C : 37.2 Deg C Peripheral Pulse Rate : 81 bpm Respiratory Rate : 18 Breaths/Min Systolic Blood Pressure : 117 mmHg Diastolic Blood Pressure : 45 mmHg (LOW) Oxygen Saturation : 97 % Oxygen Therapy Mode : Room air BIANKA DUNN RN - 04/01/2019 10:40 EDT Pain Assessment Pain Assessment : Initial assessment Pain Scale Goal : 2 Pain Scale Used : 0-10 Scale Location : Back, lower, Leg, right BIANKA DUNN RN - 04/01/2019 10:40 EDT Height and Weight, Clinical Dosing Height Source : Measured Height Entry Format : Cotton Height, Feet : 5 ft(Converted to: 152 cm, 60 Inch) Height, Inches : 5 Inch(Converted to: 0 ft 5 Inch, 12.70 cm) Clinical Height : 165.1 cm Weight Source : Standing scale Weight Entry Format : Cotton Clinical Dosing Weight : 112.27 kg Weight, Pounds : 247 lb Body Surface Area (BSA) : 2.17 m2 Body Mass Index : 41.2 kg/m2 (>HHI) [place] Body Weight : 57 kg BIANKA DUNN RN - 04/01/2019 10:40 EDT Health Histories Smoking Status : Former smoker, quit more than 30 days ago Smokeless Tobacco Status : Never BIANKA DUNN RN - 04/01/2019 10:40 EDT Social History (As Of: 04/01/2019 10:50:35 EDT) Tobacco: Use in Last 12 Months: Cigarettes. Smoking Status Former smoker. Years of Use: 1. Packs/Tins Daily: 0.5. Last Used: teenager. (Last Updated: 06/24/2013 07:28:56 EDT by MIGEL GARCIA, EDISON) Alcohol: Use in Last 12 Months: No. (Last Updated: 06/24/2013 07:29:08 EDT by MIGEL GARCIA, EDISON) Substance Abuse: Drug Use Hx: No. (Last Updated: 06/24/2013 07:29:03 EDT by MIGEL GARCIA, RN) Home/Environment: Lives with Spouse. Living situation: Home with assistance. 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 (Last Updated: 07/17/2014 00:15:13 EDT by KATIE TRINIDAD, REINA Nurse) Infectious Disease History Fever/Chills Last 48 Hours : No JOSE TORRES RN - 04/05/2019 12:02 EDT Infectious Disease History : Chicken pox/Shingles, Measles, Mumps Travel To Regions with Travel Advisories : No Travel Outside [place] Within Last 30 Days : No Contact With Traveler to Advisory Region : No Tuberculosis Symptoms : None BIANKA DUNN RN - 04/01/2019 10:40 EDT Anesthesia/Transfusion History Family History of Anesthesia Reaction : No prior transfusion(s) Blood Transfusion Acceptable to Patient : Yes Transfusion History : Prior anesthesia without reaction Family History of Anesthesia Reaction : None BIANKA DUNN RN - 04/01/2019 10:40 EDT Functional Assessment Functional ADL Evaluation Index EBN Bathing : Independent (2) Dressing : Independent (2) Toileting : Independent (2) Transferring Bed or Chair : Independent (2) Continence : Independent (2) Feeding : Independent (2) BIANKA DUNN RN - 04/01/2019 10:40 EDT ADL Index Score : 12 BIANKA DUNN RN - 04/01/2019 10:40 EDT Advance Directive Patient has Advance Directive *Q : No, patient refuses Advance Directive information BIANKA DUNN RN - 04/01/2019 10:40 EDT Psychosocial History Do You Have a History of the Following? : Patient denies history Currently in Unsafe Situation : No Tried to Harm Yourself in the Past? : No Thoughts of Harming/Killing Yourself : No BIANKA DUNN RN - 04/01/2019 10:40 EDT Teaching/Learning Assessment Barriers To Learning : Other: memory deficit due to stroke///slow recall Individuals Taught : Patient, Spouse Readiness to Learn : Cooperative Readiness to Learn : Explanation, Printed materials BIANKA DUNN RN - 04/01/2019 10:40 EDT Education Topics, Periop Preadmission Perioperative Education Grid Arrival Time/Place : Verbalizes understanding CHG Preoperative Bathing/Cloths : Verbalizes understanding Falls : Verbalizes understanding Infection Control : Verbalizes understanding IV's : Verbalizes understanding NPO Status/Directions : Verbalizes understanding Pain Management : Verbalizes understanding Postoperative Care Preparations : Verbalizes understanding Preprocedure Preparations : Verbalizes understanding Preprocedure Tests/Labs : Verbalizes understanding Remove Body Piercings : Verbalizes understanding Responsible Adult : Verbalizes understanding Take/Hold Medications Pre-Procedure : Verbalizes understanding BIANKA DUNN RN - 04/01/2019 10:40 EDT Responsible Adult Contact Information : jonelle BIANKA DUNN RN - 04/01/2019 10:40 EDT General Info Preferred Name : Adrienne Legal Guardian : No Support Person/Patient Interlocking Pavement Installer : No Support Person/Pt Rep Name : jonelle Savage - spouse Support Person/Pt Rep Contact Information : [phone] Want Family/Rep/Phys Notified of Admit : No Emergency Contact #1 : jonelle Emergency Contact #1 cell Emergency Contact #1 Relationship : spouse Emergency Contact #2 : none Emergency Contact #2 Phone Number : none Emergency Contact #2 Relationship : none Primary Language : Scottish Preferred Communication Mode : Verbal Communication Barrier : None BIANKA DUNN RN - 04/01/2019 10:40 EDT Yonathan Scale Yonathan Sensory Perception : Slightly limited Yonathan Moisture : Rarely moist Yonathan Activity : Walks occasionally BIANKA DUNN RN - 04/01/2019 10:40 EDT Yonathan Mobility : Slightly limited (Comment: walker [BIANKA DUNN RN - 04/01/2019 10:52 EDT] ) BIANKA DUNN RN - 04/01/2019 10:52 EDT Yonathan Nutrition : Adequate Yonathan Friction and Shear : No apparent problem Yonathan Score : 19 BIANKA DUNN RN - 04/01/2019 10:40 EDT Sleep Apnea Risk Assmt Hx of [...] Sleep Apnea Risk Level Score : 5 BIANKA DUNN RN - 04/01/2019 10:40 EDT Pain Scale Intensity : 10 BIANKA DUNN RN - 04/01/2019 10:40 EDT Image 4 - Images currently included in the form version of this document have not been included in the text rendition version of the form. documented in this encounter Plan of Treatment Not on file documented as of this encounter Visit Diagnoses Not on filedocumented in this encounter
--- OUTSIDE RECORDS SUMMARY | 2025-07-29 11:54 | XMS_ITS | Encounter Summary ---
Author Organization [employer] ([place], [place], [place], [place]) Address [address] [place] [address] Care Team Providers Care Chief Information Security Officer Name Role Phone Unavailable Primary Care Provider Unavailabl e Encounter Details Date Type Department Care Team (Late st Contact Info) Description 03/25/2021 Transcribed Document [facility] [place] [address] [place] [address] ProviderChano MD [address], [place] [id number] Social History Tobacco Use Types Packs/Day Years Used Date Smoking Tobacco: Never Assessed Comments Unknown Sex and Gender Information Value Date Recorded Sex Assigned at Not on file Legal Sex Female 2:07 PM CDT Gender Identity Not on file Sexual Orientation Not on file documented as of this encounter Miscellaneous Notes * Cerner Conversion Note - Historical ProviderMD - 03/25/2021 10:24 PM CDT [place] Suicide Severity Rating Scale (C-SSRS) Entered On: 03/25/2021 23:06 EDT Performed On: 03/25/2021 23:05 EDT by MIGEL ANDREW Rn [place] Suicide Severity Rating Scale (C-SSRS) CSSRS Past Month Wish to be : No CSSRS Past Month Suicidal Thoughts : No CSSRS Lifetime Suicide Behavior : No Suicide Severity Rating Score : 0 Suicide Severity Rating : No Additional Care Required at this time MIGEL ANDREW Rn - 03/25/2021 23:05 EDT Electronically signed by Julian Wheeler Conversion Human Resources Office Assistant Cerner at 01/23/2023 1:16 PM CDT documented in this encounter Plan of Treatment Not on file documented as of this encounter Visit Diagnoses Not on filedocumented in this encounter
--- OUTSIDE RECORDS SUMMARY | 2025-07-29 11:54 | XMS_ITS | Encounter Summary ---
Author Organization [employer] ([place], [place], [place], [place]) Address [address] [place] [address] Care Team Providers Care Guidance Services Coordinator Name Role Phone Unavailable Primary Care Provider Unavailabl e Encounter Details Date Type Department Care Team (Late st Contact Info) Description 04/05/2019 Transcribed Document [facility] [place] Family Medicine [address] [place] [address] ProviderChano MD [address] [place], [place] [id number] Social History Tobacco Use Types Packs/Day Years [...] 5:39 PM CDT Pain Assessment Entered On: 04/06/2019 0:22 EDT Performed On: 04/06/2019 0:14 EDT by Eriberto Crawley Rn-Resource Intervention Information: morphine Performed by Eriberto Crawley Rn-Resource on 04/05/2019 23:44:00 EDT morphine,2mg IV Push,Forearm Left,Pain (Severe 7-10) Pain Assessment Pain Assessment : Follow-up assessment Pain Scale Goal : 2 Pain Improved by Intervention : Yes Eriberto Crawley Rn-Resource - 04/06/2019 0:22 EDT documented in this encounter Plan of Treatment Not on file documented as of this encounter Visit Diagnoses Not on filedocumented in this encounter
--- OUTSIDE RECORDS SUMMARY | 2025-07-29 11:55 | XMS_ITS | Clinical Summary ---
[facility] Organization [facility] Address [address] [place] [address] Care Team Providers Care Last Picker Name Role Phone Mumtaz Colon MD Primary Care Provider [phone] Allergies Active Allergy Reactions Criticality Noted Date Comments Metformin GI Intolerance 02/05/2025 Nsaids GI Intolerance 10/11/2023 Rosiglitazone Swelling 02/05/2025 Statins GI Intolerance 02/05/2025 Medications No known medications Social History Tobacco Use Types Packs/Day Years Used Date Smoking Tobacco: Never Assessed Abuse Screen Answer Date Recorded Feels Unsafe at Home or Work/School no 02/05/2025 Feels Threatened by Someone no 12/2024 Does Anyone Try to Keep You From Having Contact with Others or Doing Things Outside Your Home? no 02/05/2025 Physical Signs of Abuse Present no 02/05/2025 Comments Unknown Sex and Gender Information Value Date Recorded Sex Assigned at Not on file Legal Sex Female 9:58 AM EDT Gender Identity Not on file Sexual Orientation Not on file Last Filed Vital Signs Vital Sign Reading Time Taken Comments Blood Pressure 155/51 02/05/2025 7:00 AM EDT Pulse 72 02/05/2025 7:00 AM EDT Temperature 36.9 C (98.5 F) 02/05/2025 4:05 AM EDT Respiratory Rate 20 02/05/2025 4:05 AM EDT Oxygen Saturation 98% 02/05/2025 7:00 AM EDT Inhaled Oxygen Concentration - - Weight 120 kg (265 lb) 02/05/2025 4:05 AM EDT Height 165.1 cm (5' 5 ) 02/05/2025 4:05 AM EDT Body Mass Index 44.1 02/05/2025 4:05 AM EDT Plan of Treatment Health Maintenance Due Date Last Done Comments DXA SCAN 1950 COLOGUARD 1994 COLON CANCER SCREENING 5 YEA R SIGMOIDOSCOPY 1994 COLONOSCOPY 1994 COL[address]ECTAL CANCER SCREENING 1994 CT COLONOGRAPHY 1994 FECAL OCCULT BLOOD TEST 1994 FIT Testing (1 year) 1994 Pneumococcal Vaccine 50+ (1 of 1 - PCV) 1999 TDAP/TD VACCINES (2 - Tdap) 12/13/2006 12/13/1996 ANNUAL PHYSICAL 01/19/2019 ZOSTER VACCINE (2 of 2) 12/16/2023 10/21/2023 RSV Vaccine - Adults (1 - 1- dose 75+ series) 2024 INFLUENZA VACCINE 05/06/2025 07/07/2024, 07/27/2018 COVID-19 Vaccine ( season) 2025 09/24/2021, 11/29/2020, 11/04/2020 HEPATITIS C SCREENING Completed 06/01/2024, 022 Insurance [facility] PPO Care Teams Last Picker Relationship Specialty Start Date End Date Mumtaz Colon MD [address] [place] [address] [facility] [place] [address] PCP - General Adolescent Medicine 10/11/23
--- OUTSIDE RECORDS SUMMARY | 2025-07-29 11:55 | XMS_ITS | Encounter Summary ---
Author Organization [employer] ([place], [place], [place], [place]) Address [address] [place] [address] Care Team Providers Care Wheel Mill Operator Name Role Phone Unavailable Primary Care Provider Unavailabl e Encounter Details Date Type Department Care Team (Late st Contact Info) Description 07/12/2019 Transcribed Document [facility] [place] Family Medicine [address] [place] [address] ProviderChano MD [address], [place] [id number] Social History Tobacco Use Types Packs/Day Years Used Date Smoking Tobacco: Never Assessed Comments Unknown Sex and Gender Information Value Date Recorded Sex Assigned at Not on file Legal Sex Female 2:07 PM CDT Gender Identity Not on file Sexual Orientation Not on file documented as of this encounter Miscellaneous Notes * Cerner Conversion Note - Historical ProviderMD - 07/12/2019 1:20 PM CDT Patient: LUDY ANTONIO Age: 68 Years Sex: Female : 1950 Subjective confused overnight and today pain is better is walking to bathroom with walker but is refusing PT Vital Signs T: 36.7 ??C TMIN: 36.4 ??C TMAX: 36.8 ??C HR: 81(Monitored) RR: 16 BP: 140/57 SpO2: 95% Physical Exam awake sitting up in bed confused will follow exams incision is clean and dry intraop cultures negative Assessment/Plan POD#3 redo right L3-4 minimally invasive surgery microdiscectomy with Dr. Lucas with continued confusion and agitation at times broad spectrum abx per ID: cultures negative thus far psych to see ?tomorrow back and leg pain are better, will continue to follow VTE Prophylaxis - Medical Enoxaparin 40 mg, SubCutaneous, Inj, Daily, Routine, Start 07/11/19 11:57:00 EDT (JACINTO OLIVA MD) Sequential Compression Device Start: 07/08/19 22:19:00 EDT, Bilateral, Length: Knee High, While patient is in bed, Continuous Order (TOM MORSE) Sequential Compression Device Start: 07/08/19 22:19:00 EDT, Bilateral, Continuous Order (TOM MORSE) Medications Colace, 100 mg= 1 Cap, Oral, BID Cubicin + Sodium Chloride 0.9% intravenous solution 50 mL Cymbalta, 60 mg= 2 Cap, Oral, At Bedtime DuoNeb 0.5 mg-2.5 mg/3 mL inhalation solution, 3 mL, Nebulized Inhalation , RT_Q6H, PRN Flonase, 1 Puff, Nasal, Daily formoterol-mometasone 5 [...] 10 mg= 2 Tab, Oral, Q6H, PRN Pepcid, 20 mg= 2 mL, IV Push, BID Rocephin Senna S, 1 Tab, Oral, Daily SEROquel, 6.25 mg= 0.25 Tab, Oral, BID Tylenol, 650 mg= 2 Tab, Oral, Q4H, PRN Valium, 5 mg= 1 Tab, Oral, Q6H, PRN Zofran, 4 mg= 2 mL, IV Push, Q4H, PRN Lab Results Test Name Test Result Date/Time Sodium Level 142 mmol/L 07/12/2019 02:51 EDT Potassium Level 3.8 mmol/L 07/12/2019 02:51 EDT Chloride Level 104 mmol/L 07/12/2019 02:51 EDT Carbon Dioxide Level 31 mmol/L 07/12/2019 02:51 EDT Anion Gap 11 07/12/2019 02:51 EDT Glucose Level 202 mg/dL (High) 07/12/2019 02:51 EDT Blood Urea Nitrogen 14 mg/dL 07/12/2019 02:51 EDT Creatinine Level 0.90 mg/dL 07/12/2019 02:51 EDT eGFR >60 mL/min/1.73m2 07/12/2019 02:51 EDT eGFR NonAfrican >60 mL/min/1.73m2 07/12/2019 02:51 EDT Bun/Creatinine 15.6 07/12/2019 02:51 EDT Calcium Level 9.0 mg/dL 07/12/2019 02:51 EDT Protein Total 6.7 Gram/dL 07/12/2019 02:51 EDT Albumin Level 2.8 Gram/dL (Low) 07/12/2019 02:51 EDT Globulin 3.9 Gram/dL 07/12/2019 02:51 EDT A/G Ratio 0.7 (Low) 07/12/2019 02:51 EDT Bilirubin Total 0.3 mg/dL 07/12/2019 02:51 EDT Alk Phos 56 Units/Liter 07/12/2019 02:51 EDT AST 18 Units/Liter 07/12/2019 02:51 EDT ALT 25 Units/Liter 07/12/2019 02:51 EDT Device Comment 1 Protocols Followed 07/12/2019 10:00 EDT Device Comment 1 Notified Nurse RBV 07/12/2019 04:56 EDT Device Comment 1 Notified Nurse RBV 07/11/2019 22:06 EDT Device Comment 1 Notified Nurse RBV 07/11/2019 17:10 EDT Device Comment 2 Notified Nurse RBV 07/12/2019 10:00 EDT Glucose POC2 339 mg/dL (High) 07/12/2019 10:00 EDT Glucose POC2 179 mg/dL (High) 07/12/2019 04:56 EDT Glucose POC2 258 mg/dL (High) 07/11/2019 22:06 EDT Glucose POC2 217 mg/dL (High) 07/11/2019 17:10 EDT CRP 3.0 mg/dL (High) 07/12/2019 02:51 EDT WBC 8.4 K/uL 07/12/2019 02:51 EDT RBC 4.10 Million/uL 07/12/2019 02:51 EDT Hgb 11.5 g/dL 07/12/2019 02:51 EDT Hct 35.7 % 07/12/2019 02:51 EDT MCV 87.1 fL 07/12/2019 02:51 EDT MCH 28.0 pg 07/12/2019 02:51 EDT MCHC 32.2 Gram/dL 07/12/2019 02:51 EDT Platelet Count 263 K/uL 07/12/2019 02:51 EDT MPV 9.1 fL (Low) 07/12/2019 02:51 EDT RDW 13.1 % 07/12/2019 02:51 EDT Slide Review No 07/12/2019 02:51 EDT documented in this encounter Plan of Treatment Not on file documented as of this encounter Visit Diagnoses Not on filedocumented in this encounter
--- OUTSIDE RECORDS SUMMARY | 2025-07-29 11:55 | XMS_ITS | Encounter Summary ---
Author Organization [employer] ([place], [place], [place], [place]) Address [address] [place] [address] Care Team Providers Care Echocardiograph Technician Name Role Phone Unavailable Primary Care Provider Unavailabl e Encounter Details Date Type Department Care Team (Late st Contact Info) Description 10/05/2019 Transcribed Document [facility] [place] [facility] [place] [address] ProviderChano MD [address], [place] [id number] Social History Tobacco Use Types Packs/Day Years Used Date Smoking Tobacco: Never Assessed Comments Unknown Sex and Gender Information Value Date Recorded Sex Assigned at Not on file Legal Sex Female 2:07 PM CDT Gender Identity Not on file Sexual Orientation Not on file documented as of this encounter Miscellaneous Notes * Cerner Conversion Note - Historical ProviderMD - 10/05/2019 10:49 PM RECOVERY AUDITOR Electronically signed by [facility], [facility] Conversion Professor Of Early Childhood Education Cerner at 01/23/2023 1:28 PM CDT documented in this encounter Plan of Treatment Not on file documented as of this encounter Visit Diagnoses Not on filedocumented in this encounter
--- OUTSIDE RECORDS SUMMARY | 2025-07-29 11:55 | XMS_ITS | Encounter Summary ---
Author Organization [facility] ([place], [place], [place], [place]) Address [address] [place] [address] Care Team Providers Care Baker Biscuit Name Role Phone Unavailable Primary Care Provider Unavailabl e Encounter Details Date Type Department Care Team (Late st Contact Info) Description 10/05/2019 Transcribed Document [facility] Family Medicine [address] [place] [address] Chano Gatica MD [address] [place] [address] Social History Tobacco Use Types Packs/Day Years Used Date Smoking Tobacco: Never Assessed Comments Unknown Sex and Gender Information Value Date Recorded Sex Assigned at Not on file Legal Sex Female 2:07 PM CDT Gender Identity Not on file Sexual Orientation Not on file documented as of this encounter Miscellaneous Notes * Cerner Conversion Note - Chano Gatica MD - 10/05/2019 11: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[facility] [place] [address] LUDY ANTONIO :1950 Visit Time:10/05/2019 Your Visit Summary Your Care Team Primary Provider: ISIS NOBLES Secondary Provider: Your Diagnosis Anxiety Anxiety Chest pain Depression Esophageal spasm Medical Information You may obtain a copy [...] do next Follow-Up Appointments Follow Up with BRENDON VILLARREAL When Within 2 to 3 days Comments Keep appointment has been made Follow-up as instructed Return if condition worsens Where: [address] [place] [address]- Business (1) Follow Up with QUIRINO NADEEN When Within 2 to 3 days Comments Call for follow up appointment Follow-up as instructed Return if condition worsens Where: [address] [address]- Business (1) Allergies Avandia (CHF) NSAIDs aspirin fenofibrate metFORMIN statins (Fenofibrate, Fenofibrate) Immunizations This Visit No Immunizations Found Medications What How Much When Instructions Next Dose The home medications listed are only as [...] This Visit (last charted value for your 10/05/2019 visit) Hematology 10/05/2019 6:26 PM WBC: 8.7 K/uL -- Normal range between ( 4.5 and 10.5 ) RBC: 4.59 Million/uL -- Normal range between ( 3.93 and 5.22 ) Hct: 39.5 % -- Normal range between ( 34.1 and 44.9 ) Hgb: 12.9 g/dL -- Normal range between ( 11.2 and 15.7 ) Platelet Count: 319 K/uL -- Normal range between ( 163 and 369 ) MCH: 28.1 pg -- Normal range between ( 25.6 and 32.2 ) MCHC: 32.7 Gram/dL -- Normal range between ( 32.2 and 36.5 ) MCV: 86.1 fL -- Normal range between ( 79.0 and 94.8 ) Slide Review: No Eos %: 0.9 % -- Normal range between ( 0.0 and 7.0 ) Castro #: 0.53 K/uL -- Normal range between ( 0.16 and 1.00 ) Eos #: 0.08 x10(3)/uL -- Normal range between ( 0.00 and 0.80 ) Castro %: 6.1 % -- Normal range between ( 3.0 and 9.0 ) Baso %: 0.7 % -- Normal range between ( 0.0 and 1.5 ) Baso #: 0.06 x10(3)/uL -- Normal range between ( 0.00 and 0.20 ) RDW: 13.8 % -- Normal range between ( 11.7 and 14.9 ) Neut %: 64.4 % -- Normal range between ( 34.0 and 71.0 ) Neut #: 5.62 K/uL -- Normal range between ( 1.56 and 6.13 ) Lymph %: 27.3 % -- Normal range between ( 19.3 and 53.1 ) Lymph #: 2.38 x10(3)/uL -- Normal range between ( 1.00 and 3.90 ) MPV: 9.2 fL -- Normal range between ( 9.4 and 12.4 ) IG#: 0.05 x10(3)/uL -- Normal range between ( 0.00 and 0.05 ) IG%: 0.60 % -- Normal range between ( 0.00 and 0.60 ) Urinalysis 10/05/2019 6:45 PM Urine Nitrite: Negative Urine Leukocyte Esterase: Negative Urine Appearance: Clear Urine Glucose Dipstick: Negative Urine Blood Dipstick: Negative Urine Type: U CleanCatch Urine Urobilinogen Dipstick: 0.2 EU/dL Urine Protein Dipstick: Negative Ur Squamous Epithelial Cells: 2-5 /HPF Urine Color: Yellow Urine Ketones Dipstick: Negative Urine pH Dipstick: 8.0 -- Normal range between ( 6.0 and 8.0 ) Urine Bilirubin Dipstick: Negative Urine Specific Archer: 1.021 -- Normal range between ( 1.005 and 1.030 ) General Chemistry 10/05/2019 10:19 PM Lactic Acid Level: 1.9 mmol/L -- Normal range between ( 0.4 and 2.0 ) 10/05/2019 6:36 PM Amylase Level: 43 Units/Liter -- Normal range between ( 25 and 115 ) Lipase Level: 100 Units/Liter -- Normal range between ( 73 and 393 ) 10/05/2019 6:26 PM Creatinine Level: 1.30 mg/dL -- Normal range between ( 0.55 and 1.02 ) Sodium Level: 140 mmol/L -- Normal range between ( 136 and 146 ) Potassium Level: 4.6 mmol/L -- Normal range between ( 3.5 and 5.1 ) Chloride Level: 109 mmol/L -- Normal range between ( 102 and 112 ) Carbon Dioxide Level: 25 mmol/L -- Normal range between ( 21 and 32 ) Anion Gap: 11 -- Normal range between ( 9 and 20 ) Bilirubin Total: 0.2 mg/dL -- Normal range between ( 0.2 and 1.2 ) A/G Ratio: 0.8 -- Normal range between ( 1.1 and 2.5 ) ALT: 27 Units/Liter -- Normal range between ( 13 and 56 ) AST: 21 Units/Liter -- Normal range between ( 5 and 37 ) Globulin: 4.3 Gram/dL -- Normal range between ( 1.5 and 4.5 ) Alk Phos: 73 Units/Liter -- Normal range between ( 27 and 136 ) Bun/Creatinine: 23.1 -- Normal range between ( 8.0 and 20.0 ) Calcium Level: 9.3 mg/dL -- Normal range between ( 8.4 and 10.1 ) eGFR : 49 mL/min/1.73m2 eGFR NonAfrican: 40 mL/min/1.73m2 Glucose Level: 172 mg/dL -- Normal range between ( 74 and 106 ) Blood Urea Nitrogen: 30 mg/dL -- Normal range between ( 7 and 22 ) Protein Total: 7.6 Gram/dL -- Normal range between ( 6.4 and 8.2 ) Albumin Level: 3.3 Gram/dL -- Normal range between ( 3.4 and 5.0 ) Cardiac Specific Markers 10/05/2019 6:44 PM ProBNP: 165 pg/mL -- Normal range between ( 0 and 125 ) 10/05/2019 6:26 PM Troponin I Ultra: <0.015 ng/mL -- Normal range between ( 0.015 and 0.045 ) Computed Tomography 10/05/2019 8:40 PM CTA Chest PE Protocol: CTA Chest PE Protocol Diagnostic Radiology 10/05/2019 6:44 PM CR Chest 2 Vws: CR Chest 2 Vws Education Materials Nonspecific Chest Pain Chest pain can be caused by many different conditions. There is always a chance that your pain could be related to something serious, such as a heart attack or a blood clot in your lungs. Chest pain can also be caused by conditions that are not life-threatening. If you have chest pain, it is very important to follow up with your health care provider. What are the causes? Causes of this condition include: ??? Heartburn. ??? Pneumonia or bronchitis. ??? Anxiety or stress. ??? Inflammation around your heart (pericarditis) or lung (pleuritis or pleurisy). ??? A blood clot in your lung. ??? A collapsed lung (pneumothorax). This can develop suddenly on its own (spontaneous pneumothorax) or from trauma to the chest. ??? Shingles infection (varicella-zoster virus). ??? Heart attack. ??? Damage to the bones, muscles, and cartilage that make up your chest wall. This can include: ? Bruised bones due to injury. ? Strained muscles or cartilage due to frequent or repeated coughing or overwork. ? Fracture to one or more ribs. ? Sore cartilage due to inflammation (costochondritis). What increases the risk? Risk factors for this condition may include: ??? Activities that increase your risk for trauma or injury to your chest. ??? Respiratory infections or conditions that cause frequent coughing. ??? Medical conditions or overeating that can cause heartburn. ??? Heart disease or family history of heart disease. ??? Conditions or health behaviors that increase your risk of developing a blood clot. ??? Having had chicken pox (varicella zoster). What are the signs or symptoms? Chest pain can feel like: ??? Burning or tingling on the surface of your chest or deep in your chest. ??? Crushing, pressure, aching, or squeezing pain. ??? Dull or sharp pain that is worse when you move, cough, or take a deep breath. ??? Pain that is also felt in your back, neck, shoulder, or arm, or pain that spreads to any of these areas. Your chest pain may come and go, or it may stay constant. How is this diagnosed? Lab tests or other studies may be needed to find the cause of your pain. Your health care provider may have you take a test called an ECG (electrocardiogram). An ECG records your heartbeat patterns at the time the test is performed. You may also have other tests, such as: ??? Transthoracic echocardiogram (TTE). In this test, sound waves are used to create a picture of the heart structures and to look at how blood flows through your heart. ??? Transesophageal echocardiogram (TRUPTI). This is a more advanced imaging test that takes images from inside your body. It allows your health care provider to see your heart in finer detail. ??? Cardiac monitoring. This allows your health care provider to monitor your heart rate and rhythm in real time. ??? Holter monitor. This is a portable device that records your heartbeat and can help to diagnose abnormal heartbeats. It allows your health care provider to track your heart activity for several days, if needed. ??? Stress tests. These can be done through exercise or by taking medicine that makes your heart beat more quickly. ??? Blood tests. ??? Other imaging tests. How is this treated? Treatment depends on what is causing your chest pain. Treatment may include: ??? Medicines. These may include: ? Acid blockers for heartburn. ? Anti-inflammatory medicine. ? Pain medicine for inflammatory conditions. ? Antibiotic medicine, if an infection is present. ? Medicines to dissolve blood clots. ? Medicines to treat coronary artery disease (CAD). ??? Supportive care for conditions that do not require medicines. This may include: ? Resting. ? Applying heat or cold packs to injured areas. ? Limiting activities until pain decreases. Follow these instructions at home: Medicines ??? If you were prescribed an antibiotic, take it as told by your health care provider. Do not stop taking the antibiotic even if you start to feel better. ??? Take afka-xfv-zdffzrf and prescription medicines only as told by your health care provider. Lifestyle ??? Do not use any products that contain nicotine or tobacco, such as cigarettes and e-cigarettes. If you need help quitting, ask your health care provider. ??? Do not drink alcohol. ??? Make lifestyle changes as directed by your health care provider. These may include: ? Getting regular exercise. Ask your health care provider to suggest some activities that are safe for you. ? Eating a heart-healthy diet. A registered dietitian can help you to learn healthy eating options. ? Maintaining a healthy weight. ? Managing diabetes, if necessary. ? Reducing stress, such as with yoga or relaxation techniques. General instructions ??? Avoid any activities that bring on chest pain. ??? If heartburn is the cause for your chest pain, raise (elevate) the head of your bed about 6 inches (15 cm) by putting blocks under the legs. Sleeping with more pillows does not effectively relieve heartburn because it only changes the position of your head. ??? Keep all follow-up visits as told by your health care provider. This is important. This includes any further testing if your chest pain does not go away. Contact a health care provider if: ??? Your chest pain does not go away. ??? You have a rash with blisters on your chest. ??? You have a fever. ??? You have chills. Get help right away if: ??? Your chest pain is worse. ??? You have a cough that gets worse, or you cough up blood. ??? You have severe pain in your abdomen. ??? You have severe weakness. ??? You faint. ??? You have sudden, unexplained chest discomfort. ??? You have sudden, unexplained discomfort in your arms, back, neck, or jaw. ??? You have shortness of breath at any time. ??? You suddenly start to sweat, or your skin gets clammy. ??? You feel nauseous or you vomit. ??? You suddenly feel light-headed or dizzy. ??? Your heart begins to beat quickly, or it feels like it is skipping beats. These symptoms may represent a serious problem that is an emergency. Do not wait to see if the symptoms will go away. Get medical help right away. Call your local emergency services (911 in the [place] Do not drive yourself to the hospital. This information is not intended to replace advice given to you by your health care provider. Make sure you discuss any questions you have with your health care provider. Document Released: 07/02/2006 Document Revised: 06/16/2017 Document Reviewed: 06/16/2017 [employer] Patient Education ?? 2019 [employer] Esophageal Spasm An esophageal spasm is a sudden tightening (contraction) of the part of the body that moves food from the mouth to the stomach (esophagus). Normally, smooth, wave-like muscle contractions move food and liquids down the esophagus. Esophageal spasms are abnormal muscle contractions that can cause chest pain and trouble swallowing (dysphagia). Spasms may also cause swallowed foods or liquids to come back up into the throat (regurgitation). There are two types of esophageal spasms. You may have one or both types: ??? Diffuse esophageal spasms. These are irregular, uncoordinated spasms. This type tends to cause more dysphagia. ??? Nutcracker esophagus. This is a type of spasm in which the muscles move normally, but the contraction is very strong. This type tends to be more painful. Severe esophageal spasms can make it hard to eat and do everyday activities. They often occur with severe heartburn (reflux esophagitis). The symptoms can come and go and may be triggered or worsened depending on your diet or other medical issues. What are the causes? The cause of esophageal spasms is not known. What increases the risk? The following factors may make you more likely to develop esophageal spasms: ??? Being female. ??? Age. The risk may increase as you get older. ??? Depression or anxiety. ??? Having GERD (gastroesophageal reflux disease). What are the signs or symptoms? Symptoms may vary from day to day. They may be mild or severe. They may last for minutes or hours. Common symptoms include: ??? Chest pain. This may feel like a heart attack. ??? Back pain. ??? Dysphagia. ??? Heartburn. ??? A feeling that something is stuck in the throat (globus). ??? Regurgitation of foods or liquids. For some people, certain things may trigger symptoms, such as: ??? Certain foods and drinks. These may include very hot or very cold foods or drinks. ??? Eating very quickly. How is this diagnosed? This condition may be diagnosed based on your symptoms and a physical exam. You may have tests, such as: ??? Endoscopy. This involves using a flexible tube that has a camera on the end of it (endoscope) to look down your throat and examine your esophagus. ??? Barium swallow. This involves drinking a substance that will show up well on X-rays (barium) and then having X-rays to see how the substance moves through your esophagus. ??? Esophageal manometry. This involves passing a small, thin tube through your nose and down into your throat. The tube contains pressure sensors that measure muscle contractions in the esophagus while you swallow. How is this treated? Mild esophageal spasms may not need treatment. You may be able to manage the spasms by avoiding triggers. For more frequent or severe spasms, treatment may include: ??? Medicine to: ? Relax the esophageal muscles. ? Relieve muscle spasms (calcium channel blockers and nitrates). ? Relieve pain by blocking nerve endings in the esophagus. This is done with an injection of a toxin (botulinum). ? Relieve heartburn (proton pump inhibitors). ??? Antidepressant medicines. These are sometimes used to ease symptoms. ??? Surgery to reduce esophageal muscle contractions (myotomy), in very severe cases. Follow these instructions at home: Eating and drinking ??? Keep track of foods, drinks, and habits that trigger spasms or heartburn. Avoid these triggers as much as you can. ??? Eat meals slowly. Chew food completely before swallowing. ??? Avoid swallowing foods and drinks when they are very hot or very cold. General instructions ??? Take dhwx-wza-xocmcav and prescription medicines only as told by your health care provider. ??? Find ways to manage stress, such as regular exercise or meditation. ??? If you struggle with depression or anxiety, talk with your health care provider about treatment options. ??? Keep all follow-up visits as told by your health care provider. This is important. Contact a health care provider if: ??? Your symptoms get worse or do not get better with medicine. ??? You are losing weight because of dysphagia. ??? Your esophageal spasms affect your quality of life, such as your ability to eat. Get help right away if: ??? You have severe chest pain. ??? You have chest pain that is different from your usual chest pain. ??? You have trouble breathing. ??? You choke. Summary ??? An esophageal spasm is a sudden tightening (contraction) of the part of the body that moves food from the mouth to the stomach (esophagus). These abnormal muscle contractions can cause chest pain and trouble swallowing (dysphagia). ??? The cause of esophageal spasms is not known. ??? Treatment may not be needed for mild spasms. For frequent or more severe spasms, treatment may include medicine, or, for very severe spasms, surgery. ??? Keep track of foods, drinks, and habits that trigger spasms or heartburn. Avoid these triggers as much as you can. This information is not intended to replace advice given to you by your health care provider. Make sure you discuss any questions you have with your health care provider. Document Released: 12/13/2003 Document Revised: 06/23/2018 Document Reviewed: 06/23/2018 [employer] Patient Education ?? 2019 [employer] Panic Attack A panic attack is a sudden episode of severe anxiety, fear, or discomfort that causes physical and emotional symptoms. The attack may be in response to something frightening, or it may occur for no known reason. Symptoms of a panic attack can be similar to symptoms of a heart attack or stroke. It is important to see your health care provider when you have a panic attack so that these conditions can be ruled out. A panic attack is a symptom of another condition. Most panic attacks go away with treatment of the underlying problem. If you have panic attacks often, you may have a condition called panic disorder. What are the causes? A panic attack may be caused by: ??? An extreme, life-threatening situation, such as a war or natural disaster. ??? An anxiety disorder, such as post-traumatic stress disorder. ??? Depression. ??? Certain medical conditions, including heart problems, neurological conditions, and infections. ??? Certain vlje-off-kbikxse and prescription medicines. ??? Illegal drugs that increase heart rate and blood pressure, such as methamphetamine. ??? Alcohol. ??? Supplements that increase anxiety. ??? Panic disorder. What increases the risk? You are more likely to develop this condition if: ??? You have an anxiety disorder. ??? You have another mental health condition. ??? You take certain medicines. ??? You use alcohol, illegal drugs, or other substances. ??? You are under extreme stress. ??? A life event is causing increased feelings of anxiety and depression. What are the signs or symptoms? A panic attack starts suddenly, usually lasts about 20 minutes, and occurs with one or more of the following: ??? A pounding heart. ??? A feeling that your heart is beating irregularly or faster than normal (palpitations). ??? Sweating. ??? Trembling or shaking. ??? Shortness of breath or feeling smothered. ??? Feeling choked. ??? Chest pain or discomfort. ??? Nausea or a strange feeling in your stomach. ??? Dizziness, feeling lightheaded, or feeling like you might faint. ??? Chills or hot flashes. ??? Numbness or tingling in your lips, hands, or feet. ??? Feeling confused, or feeling that you are not yourself. ??? Fear of losing control or being emotionally unstable. ??? Fear of dying. How is this diagnosed? A panic attack is diagnosed with an assessment by your health care provider. During the assessment your health care provider will ask questions about: ??? Your history of anxiety, depression, and panic attacks. ??? Your medical history. ??? Whether you drink alcohol, use illegal drugs, take supplements, or take medicines. Be honest about your substance use. Your health care provider may also: ??? Order blood tests or other kinds of tests to rule out serious medical conditions. ??? Refer you to a mental health professional for further evaluation. How is this treated? Treatment depends on the cause of the panic attack: ??? If the cause is a medical problem, your health care provider will either treat that problem or refer you to a specialist. ??? If the cause is emotional, you may be given anti-anxiety medicines or referred to a counselor. These medicines may reduce how often attacks happen, reduce how severe the attacks are, and lower anxiety. ??? If the cause is a medicine, your health care provider may tell you to stop the medicine, change your dose, or take a different medicine. ??? If the cause is a drug, treatment may involve letting the drug wear off and taking medicine to help the drug leave your body or to counteract its effects. Attacks caused by drug abuse may continue even if you stop using the drug. Follow these instructions at home: ??? Take zxqz-bjq-tsgrdto and prescription medicines only as told by your health care provider. ??? If you feel anxious, limit your caffeine intake. ??? Take good care of your physical and mental health by: ? Eating a balanced diet that includes plenty of fresh fruits and vegetables, whole grains, lean meats, and low-fat dairy. ? Getting plenty of rest. Try to get 7???8 hours of uninterrupted sleep each night. ? Exercising regularly. Try to get 30 minutes of physical activity at least 5 days a week. ? Not smoking. Talk to your health care provider if you need help quitting. ? Limiting alcohol intake to no more than 1 drink a day for non women and 2 drinks a day for men. One drink equals 12 oz of beer, 5 oz of wine, or 1?? oz of hard liquor. ??? Keep all follow-up visits as told by your health care provider. This is important. Panic attacks may have underlying physical or emotional problems that take time to accurately diagnose. Contact a health care provider if: ??? Your symptoms do not improve, or they get worse. ??? You are not able to take your medicine as prescribed because of side effects. Get help right away if: ??? You have serious thoughts about hurting yourself or others. ??? You have symptoms of a panic attack. Do not drive yourself to the hospital. Have someone else drive you or call an ambulance. If you ever feel like you may hurt yourself or others, or you have thoughts about taking your own life, get help right away. You can go to your nearest emergency department or call: ??? Your local emergency services (911 in the [place] ??? A suicide crisis helpline, such as the National Suicide Prevention Lifeline at . This is open 24 hours a day. Summary ??? A panic attack is a sign of a serious health or mental health condition. Get help right away. Do not drive yourself to the hospital. Have someone else drive you or call an ambulance. ??? Always see a health care provider to have the reasons for the panic attack correctly diagnosed. ??? If your panic attack was caused by a physical problem, follow your health care provider's suggestions for medicine, referral to a specialist, and lifestyle changes. ??? If your panic attack was caused by an emotional problem, follow through with counseling from a qualified mental health specialist. ??? If you feel like you may hurt yourself or others, call 911 and get help right away. This information is not intended to replace advice given to you by your health care provider. Make sure you discuss any questions you have with your health care provider. Document Released: 09/22/2006 Document Revised: 10/31/2017 Document Reviewed: 10/31/2017 [employer] Patient Education ?? 2019 [employer]. Social Anxiety Disorder, Adult Social anxiety disorder, previously called social phobia, is a mental disorder. People with social anxiety disorder often feel nervous, afraid, or embarrassed when they are around other people in social situations. They worry that other people are judging or criticizing them for how they look, what they say, or how they act. Social anxiety disorder is more than just occasional shyness or self-consciousness. It can cause severe emotional distress. It can interfere with daily life activities. Social anxiety disorder also may lead to alcohol or drug use and even suicide. Social anxiety disorder is a common mental disorder. It can develop at any time, but it usually starts in the teenage years. What are the causes? The cause of this condition is not known. It may involve genes that are passed through families. Stressful events may trigger anxiety. What increases the risk? This condition is more likely to develop in: ??? People who have a family history of anxiety disorders. ??? Women. ??? People who have a condition that makes them feel self-conscious or nervous, such as a stutter or a chronic disease. What are the signs or symptoms? The main symptom of this condition is fear of being criticized or judged in social situations. You may be afraid to: ??? Speak in public. ??? Go shopping. ??? Use a public bathroom. ??? Eat at a restaurant. ??? Go to work. ??? Interact with unfamiliar people. Extreme fear and anxiety may cause physical symptoms, including: ??? Blushing. ??? Racing heart. ??? Sweating. ??? Shaky hands or voice. ??? Confusion. ??? Light-headedness. ??? Upset stomach, diarrhea, or vomiting. ??? Shortness of breath. How is this diagnosed? Your health care provider can diagnose this condition based on your history, symptoms, and behavior in social situations. Your health care provider may ask you about your use of alcohol or drugs, including prescription medicines. Your health care provider may refer you to a mental health specialist for further evaluation or treatment. How is this treated? Treatment for this condition may include: ??? Cognitive behavioral therapy. This type of talk therapy helps you learn to replace negative thoughts and behaviors with positive ones. This may include learning better coping skills and ways to control anxiety. ??? Exposure therapy. You will be exposed to social situations that cause fear. The treatment starts with situations that you can manage. Over time, you will learn to manage harder situations. ??? Antidepressant medicines. These medicines may be used for a short time along with other therapies. ??? Beta blockers. These medicines may help to control anxiety. ??? Biofeedback. This process trains you to manage your body's response (physiological response) through breathing techniques and relaxation methods. You will work with a therapist while machines are used to monitor your physical symptoms. ??? Relaxation and coping techniques. These include deep breathing, self-talk, meditation, visual imagery, and yoga. Relaxation techniques help to keep you calm in social situations. These treatments are often used in combination. Follow these instructions at home: ??? Take syzo-dus-doswhia and prescription medicines only as told by your health care provider. ??? Practice relaxation and coping strategies as taught by your health care provider. ??? Return to social activities as suggested by your health care provider. ??? Keep all follow-up visits as told by your health care provider. This is important. Contact a health care provider if: ??? Your symptoms do not improve. ??? Your symptoms get worse. ??? You have signs of depression, such as: ? A persistently sad, cranky, or irritable mood. ? Loss of enjoyment in activities that used to bring you evan. ? Change in weight or eating. ? Changes in sleeping habits. ? Avoiding friends or family members. ? Loss of energy for normal tasks. ? Feelings of guilt or worthlessness. ??? You become very isolated. ??? You find it very hard to speak or interact with others. ??? You are using drugs. ??? You are drinking more alcohol than normal. Get help right away if: ??? You self-harm. ??? You have suicidal thoughts. If you ever feel like you may hurt yourself or others, or have thoughts about taking your own life, get help right away. You can go to your nearest emergency department or call: ??? Your local emergency services (911 in the [place] ??? A suicide crisis helpline, such as the National Suicide Prevention Lifeline at . This is open 24 hours a day. Summary ??? Social anxiety disorder may cause you to feel nervous, afraid, or embarrassed when you are around other people in social situations. ??? Social anxiety disorder is a common mental disorder. It can develop at any time, but it usually starts in the teenage years. ??? Treatment includes talk therapy, exposure therapy, medicines, biofeedback, relaxation techniques, or a combination of two or more treatments. This information is not intended to replace advice given to you by your health care provider. Make sure you discuss any questions you have with your health care provider. Document Released: 08/21/2006 Document Revised: 2017 Document Reviewed: 2017 [employer] Interactive Patient Education ?? 2019 [employer] [place]. Emergency Awareness and Preventative Care [employer] is [...] Assistance with quitting is available by contacting 6-828-BXOA-NOW. This is a free resource providing counseling, support, and referral. Or you may contact your personal physician. [employer] Suicide Prevention Lifeline: The National Suicide Prevention [...] was given the opportunity to ask questions. Patient/Apparel Manufacture Instructor Name: Patient/Apparel Manufacture Instructor Signature: Relationship to Patient: Clinician/Hospital Apparel Manufacture Instructor Signature: Please Provide a Telephone Number Where You Can Be Reached: Is it Permissible To Leave a Message? Date: Electronically signed by Summer [facility] Conversion Cotton Cleaner Wade at 01/23/2023 1:25 PM CDT documented in this encounter Plan of Treatment Not on file documented as of this encounter Visit Diagnoses Not on filedocumented in this encounter
--- OUTSIDE RECORDS SUMMARY | 2025-07-29 11:55 | XMS_ITS | Encounter Summary ---
Author Organization [employer] ([place], [place], [place], [place]) Address [address] [place] [address] Care Team Providers Care Granite Polisher Name Role Phone Unavailable Primary Care Provider Unavailabl e Encounter Details Date Type Department Care Team (Late st Contact Info) Description 07/12/2019 Transcribed Document [facility] [place] [address] [place] [address] ProviderChano MD [address] [place] [address] Social History Tobacco Use Types Packs/Day Years Used Date Smoking Tobacco: Never Assessed Comments Unknown Sex and Gender Information Value Date Recorded Sex Assigned at Not on file Legal Sex Female 2:07 PM CDT Gender Identity Not on file Sexual Orientation Not on file documented as of this encounter Miscellaneous Notes * [employer] Conversion Note - Chano ProviderMD - 07/12/2019 12:20 PM CDT PLEASE MODIFY BEFORE SIGNING CLINICAL DOCUMENTATION CLARIFICATION FORM: Dear : ___Ma Date: Please exercise your independent, professional judgment in responding to the clarification form. Clinical indicators are provided on the bottom of this form for your review [ ] Acute Metabolic Encephalopathy [ ] No diagnosis of Acute Metabolic Encephalopathy [ ] Transient Alteration of Awareness [ x ] Other diagnosis acute psychosis____ [ ] Unable to determine For continuity of documentation, please document condition throughout progress notes and discharge summary. Thank You. To be completed by CDI/Coding staff for physician review: Present Clinical Indicators - Signs / Symptoms / Labs Results and Location in Medical Record [X ] Altered mental status / confusion (i.e.: improving once underlying cause is corrected) 07/10 PN: saw her today in am and d/w nurse and sitter in room, mild confused and said sleepy neurology also consulted for confusion 07/11 PN: pat is more confused and agitated overnight she did not slept overnight, yelled to nurse and agitated , on restrict now in bed [X] Infectious process 07/10 PN: UTI on admit [X] Severe Hypertension 07/09 Vitals: BP 205/59 07/10 Vitals: BP 163/68 07/11 Vitals: BP 179/65 Present Risk Factors Results and Location in Medical Record [X] Hypertension - uncontrolled 07/09 Vitals: BP 205/59 07/10 Vitals: BP 163/68 07/11 Vitals: BP 179/65 {X} UTI 07/10 PN: UTI on admit [X] PMH of CVA 07/11 PN: h/o cerebrovascular accident Present Treatments Results and Location in Medical Record [X] Neurology consult 07/10 Orders: Neuro Consult for confusion [X] Psychiatry Consult 07/11 Orders: Psychiatry Consult [X] Medication Ordered 07/11 Orders: add low dose seroquel 6.25 bid CDS Signature: Roula Langston RN Phone #: __[phone] This a permanent part of the Medical Record 2018 [facility] Updated: documented in this encounter Plan of Treatment Not on file documented as of this encounter Visit Diagnoses Not on filedocumented in this encounter
--- OUTSIDE RECORDS SUMMARY | 2025-07-29 11:55 | XMS_ITS | Encounter Summary ---
Author Organization [employer] ([place], [place], [place], [place]) Address [address] [place] [address] Care Team Providers Care General Assignment Reporter Name Role Phone Unavailable Primary Care Provider Unavailabl e Encounter Details Date Type Department Care Team (Late st Contact Info) Description 07/12/2019 Transcribed Document [facility] [place] Medicine [facility] [place] [address] ProviderChano MD [address] [id number] Social History Tobacco Use Types Packs/Day Years Used Date Smoking Tobacco: Never Assessed Comments Unknown Sex and Gender Information Value Date Recorded Sex Assigned at Not on file Legal Sex Female 2:07 PM CDT Gender Identity Not on file Sexual Orientation Not on file documented as of this encounter Miscellaneous Notes * [employer]ner Conversion Note - Historical ProviderMD - 07/12/2019 3:07 PM CDT Patient: LUDY ANTONIO Age: 68 [...] (OCT 03) Cl 104 (OCT 07) 104 (JUL 06) 106 (OCT 04) 105 (OCT 03) CO2 31 (OCT 07) 31 (OCT 06) 27 (OCT 04) 30 (JUL 03) BUN 14 (JUL 12) 14 (JUL 06) 19 (JUL 04) 20 [...] 04) 17 (JUL 03) ALT 25 (JUL 12) [...] Last Charted Minimum Maximum Temp 98.1 (JUL 12 10:59) 97.9 (JUL 12 05:30) 98.1 (JUL 11 18:16) Apical HR 72 (JUL 12 00:06) 72 (JUL 12 00:06) 72 (JUL 12 00:06) Mon HR 81 (JUL 12 10:59) 71 (JUL 11 22:00) 81 (JUL 12 10:59) Resp Rate 16 (JUL 12:59) L 12 (JUL 11 18:16) 16 (JUL 11 22:00) SBP 140 (JUL 12 10:59) 140 (JUL 12 10:59) H 179 (JUL 12 05:30) DBP L 57 (JUL 12 10:59) L 46 (JUL 11 22:00) 75 (JUL 12 02:30) MAP 79 (JUL 12 10:59) 72 (JUL 11 22:00) 88 (JUL 12 02:30) SpO2 95 (JUL 12 10:59) 95 (JUL 11 18:16) 96 (JUL 11 22:00) I/O: 119/0 Micro: 10/4 Wound Cx: No growth 10/4 Fungal Cx: No growth 10/4 AFB: No growth 10/4 Anaerobic Cx: No growth 10/3 Urine Cx: Suggested contamination Vanc levels: A/P: 1) Based on patient's age, weight, and SCr, will start Vancomycin 1500mg IV Q24H on 07/12 @1600 2) Will obtain Vancomycin trough on 07/14 @1500 -Hold for trough >20. 3) Will continue to dose and monitor as needed Lia Huddleston PharmD PGY-1 [employer] Pager: [phone] documented in this encounter Plan of Treatment Not on file documented as of this encounter Visit Diagnoses Not on filedocumented in this encounter
--- OUTSIDE RECORDS SUMMARY | 2025-07-29 11:55 | XMS_ITS | Encounter Summary ---
Author Organization [employer] ([place], [place], [place], [place]) Address [address] [place] [address] Care Team Providers Care Behaviour Support Teacher Name Role Phone Unavailable Primary Care Provider Unavailabl e Encounter Details Date Type Department Care Team (Late st Contact Info) Description 12/04/2018 Transcribed Document [facility] [place] [address] [place] [address] ProviderChano MD [place] [address] Social History Tobacco Use Types Packs/Day Years Used Date Smoking Tobacco: Never Assessed Comments Unknown Sex and Gender Information Value Date Recorded Sex Assigned at Not on file Legal Sex Female 2:07 PM CDT Gender Identity Not on file Sexual Orientation Not on file documented as of this encounter Miscellaneous Notes * Cerner Conversion Note - Chano Gatica MD - 12/04/2018 1:53 PM EMBOSSING CALENDER OPERATOR [address] [place] [address] PERSON INFORMATION Name LUDY ANTONIO Age 68 Years 1950 Sex Female Language [place] PCP QUIRINO SENIOR (REF) Marital Status Med Service Emergency Medicine Acct# Arrival 12/04/2018 11:53:00 Visit Reason Leg pain-swelling; LEG PAIN Acuity 3 - Urgent LOS 000 01:56 Depart Date: 12/04/18 01:49 PM Address: [address] [facility] [id number] Comment: PROVIDER INFORMATION Provider Role Assigned Unassigned GENEVA RAMOS MD ED Physician 12/04/2018 11:55:54 ANKIT SONI RN ED Nurse 12/04/2018 11:57:18 DIAGNOSIS Muscle strain of left lower leg PHYS DOC NOTES VITALS INFORMATION Vital Sign Triage Latest Temp Source Oral Oral Temp Mode Fahrenheit Fahrenheit Temp Fahrenheit 98 Deg F 98 Deg F Temp Celsius 02 Sat 94 % 94 % Respiratory Rate 16 Breaths/Min 16 Breaths/Min Peripheral Pulse Rate 80 bpm 80 bpm Apical Heart Rate Blood Pressure 143 mmHg / 61 mmHg 143 mmHg / 61 mmHg Comment: MEDICAL INFORMATION Allergy Info: metFORMIN; NSAIDs; statins; Avandia; rosiglitazone; fenofibrate Medications: Comment: DISCHARGE INFORMATION Discharge Disposition: Home Discharge Location: PATIENT EDUCATION INFORMATION Instructions: Muscle Strain Follow up: With: Address: When: [facility] Within 2 to 3 days Comments: Patient is estabished with Dave Senior. Patient was given a [facility] and instructed to give it to Dr. Senior at her next follow-up. Please contact the Patient Resource Center at [phone] if you need assistance establishing a primary care physician in the future. With: Address: When: [address] [place] [id number] [employer] (2) Within 2 to 3 days With: Address: When: [address] [place] [id number] [employer] (9) Within 2 to 3 days Comment: Electronically signed by Julian Wheeler Conversion Shipping And Receiving Coordinator Cerner at 01/23/2023 1:18 PM CDT documented in this encounter Plan of Treatment Not on file documented as of this encounter Visit Diagnoses Not on filedocumented in this encounter
--- OUTSIDE RECORDS SUMMARY | 2025-07-29 11:55 | XMS_ITS | Encounter Summary ---
Author Organization [employer] ([place], [place], [place], [place]) Address [address] [place] [address] Care Team Providers Care Bowling Or Skating Front Desk Clerk Name Role Phone Unavailable Primary Care Provider Unavailabl e Encounter Details Date Type Department Care Team (Late st Contact Info) Description 07/11/2019 Transcribed Document [facility] [place] [address] [place] [address] ProviderChano MD [address] [id number] Social History Tobacco Use Types Packs/Day Years Used Date Smoking Tobacco: Never Assessed Comments Unknown Sex and Gender Information Value Date Recorded Sex Assigned at Not on file Legal Sex Female 2:07 PM CDT Gender Identity Not on file Sexual Orientation Not on file documented as of this encounter Miscellaneous Notes * Cerner Conversion Note - Chano ProviderMD - 07/11/2019 10:15 AM CDT Consult Phone Call Documentation Entered On: 07/11/2019 15:36 EDT Performed On: 07/11/2019 10:15 EDT by MARGE GRIFFIN, RN Phone Call for Consults Consult Phone Call/Page Attempt : First call Consult Reason : Psychosis and medication management Physician Requesting Consult : LORRIE STALLWORTH MD-PSY Physician Requested for Consult : JACINTO OLIVA MD Consult, Additional Information : Cpnsult called to Miah--CM head of conservation and he will call to MARGE Khan, RN - 07/11/2019 15:32 EDT documented in this encounter Plan of Treatment Not on file documented as of this encounter Visit Diagnoses Not on filedocumented in this encounter
--- OUTSIDE RECORDS SUMMARY | 2025-07-29 11:55 | XMS_ITS | Encounter Summary ---
Author Organization [employer] ([place], [place], [place], [place]) Address [address] [place] [address] Care Team Providers Care Diplomatic Officer Name Role Phone Unavailable Primary Care Provider Unavailabl e Encounter Details Date Type Department Care Team (Late st Contact Info) Description 10/05/2019 Transcribed Document [facility] [place] Family Medicine [address] [place] [address] ProviderChano MD [address] [id number] Social History Tobacco Use Types Packs/Day Years Used Date Smoking Tobacco: Never Assessed Comments Unknown Sex and Gender Information Value Date Recorded Sex Assigned at Not on file Legal Sex Female 2:07 PM CDT Gender Identity Not on file Sexual Orientation Not on file documented as of this encounter Miscellaneous Notes * [employer] Conversion Note - Historical ProviderMD - 10/05/2019 11:30 PM MANAGER CREATIVE SERVICES ED Discharge Entered On: 10/05/2019 23:47 EST Performed On: 10/05/2019 23:30 EST by KYA RODRIGES jd edwards developer Process Patient Disposition : Discharge Personal Belongings With Patient : Yes Patient Education Completed : Yes Teaching Evaluation : Verbalizes understanding IV Discontinued : Yes Nursing Documentation Completed : Yes KYA RODRIGES RN - 10/05/2019 23:46 EST ED Discharge Discharge To : Home with ambulatory/outpatient follow-up Mode Of Departure : Wheelchair Accompanied By : Significant other Discharge Instructions Reviewed With, Opportunity For Questions Given : Patient, Significant other Prescriptions Given to Patient : No Medications Given to Patient : No KYA RODRIGES RN - 10/05/2019 23:46 EST Electronically signed by Summer [facility] Conversion Tree Pruner Cerner at 01/23/2023 1:27 PM CDT documented in this encounter Plan of Treatment Not on file documented as of this encounter Visit Diagnoses Not on filedocumented in this encounter
--- OUTSIDE RECORDS SUMMARY | 2025-07-29 11:55 | XMS_ITS | Encounter Summary ---
Author Organization [employer] ([place], [place], [place], [place]) Address [address] [place] [address] Care Team Providers Care Marketing Clerk Name Role Phone Unavailable Primary Care Provider Unavailabl e Encounter Details Date Type Department Care Team (Late st Contact Info) Description 07/12/2019 Transcribed Document [facility] [place] Family Medicine [address] [place] [address] ProviderChano MD [address] [place] [place] [id number] Social History Tobacco Use Types Packs/Day Years Used Date Smoking Tobacco: Never Assessed Comments Unknown Sex and Gender Information Value Date Recorded Sex Assigned at Not on file Legal Sex Female 2:07 PM CDT Gender Identity Not on file Sexual Orientation Not on file documented as of this encounter Miscellaneous Notes * Cerner Conversion Note - Chano Gatica MD - 07/12/2019 2:32 PM CDT Patient: LUDY ANTONIO Age: 68 [...] epithelial cells. Urine culture was positive for 10???[id number] CFU/mL. CT of the L-spine was negative. [...] or confusion. ROS and hx discussed with [id number], has had ceofusion and fever last 2 [...] They note she seems better on antibiotics Allergies:Allergies (1) Active Reaction Avandia CHF Medications:Medications by Classification Antimicrobials cefTRIAXone (Rocephin) - 2 Gram, IV Piggyback, [id number], infuse over 30 Minute(s), Routine Anticoagulant enoxaparin (Lovenox) - 40 mg, [...] Inj, Q4H, PRN for Nausea, Routine famotidine (Pepcid) - 20 mg, IV Push, Inj, BID docusate (Colace) - 100 mg, Oral, Cap, BID, Routine docusate-senna (Senna S) - 1 Tab, Oral, Tab, Daily, Routine polyethylene glycol 3350 (MiraLax) - 17 Gram, Oral, Powder, Daily, PRN for Constipation, Routine Endocrine insulin glargine (Lantus) - 20 Units, SubCutaneous, Inj, Daily, Routine insulin lispro (insulin lispro sliding scale) - Scale A:, SubCutaneous, Inj, AC and at Bedtime, Routine Psych DULoxetine (Cymbalta) - 60 mg, Oral, Cap, At Bedtime, Routine QUEtiapine (SEROquel) - 6.25 mg, Oral, Tab, BID, Routine haloperidol (Haldol) - 2 mg, IV Push, Inj, Q8H, PRN for Agitation, Routine HEENT fluticasone nasal (Flonase) - 1 Puff, Nasal, [place], Daily, Routine Pain Meds morphine - 2 [...] HR 72 (JUL 12 00:06) 72 (JUL 12:06) 72 (JUL 12 00:06) Mon HR 81 (JUL 12 10:59) 71 (JUL 11 22:00) 81 (JUL 12 10:59) Resp Rate 16 (JUL 12 10:59) L 12 (JUL 11 18:16) 16 (JUL [...] (JUL 11 18:16) 96 (JUL 11 22:00) Exam: Gen: Alert, not cooperative, confused HEENT: sclera OK NECK: Supple, no masses LYMPH: No lymphadenopathy in cervical, supraclavicular, axillary, or inguinal lymph nodes RESP: CTA bilaterally without rhonchi, rales, or wheezes. Nonlabored breathing CV: RRR, no murmurs, gallops, or rubs. No edema GI: soft, nontender, nondistended, , no guarding or rebound tenderness : No garcia in place MS: FROM in all extremities, no pain with motion, no swelling or edema noted. SKIN: No eruptions, lesions, or rashes NEURO: combative PSYCH: anxious Labs:Labs (Last four charted values) WBC 8.4 (JUL 12) 8.2 (JUL 11) 7.9 (JUL 09) 9.1 (JUL 08) HB 11.5 (JUL 07) 11.5 (OCT 06) 12.6 (OCT 04) 12.0 (JUL 03) HCT 35.7 (JUL 07) 35.6 (OCT 06) 39.8 (JUL 04) 37.3 (JUL 03) Plt 263 (OCT 07) 230 (OCT 06) 267 (JUL 04) 268 (JUL 03) Na 142 (JUL 07) 140 (JUL 11) 142 (JUL 09) 141 (JUL 08) K 3.8 (JUL 12) 4.2 (OCT 06) 4.4 (JUL 09) 3.9 (JUL 03) Cl 104 (JUL 12) 104 (JUL 11) 106 (JUL 09) 105 (JUL 08) CO2 [...] Discussed with family check some esoteric labs Doubt her mental status issues from infection? documented in this encounter Plan of Treatment Not on file documented as of this encounter Visit Diagnoses Not on filedocumented in this encounter
--- OUTSIDE RECORDS SUMMARY | 2025-07-29 11:55 | XMS_ITS | Encounter Summary ---
Author Organization [employer] ([place], [place], [place]) Address [address] [place] [address] Care Team Providers Care Electronic Warfare Technical Name Role Phone Unavailable Primary Care Provider Unavailabl e Encounter Details Date Type Department Care Team (Late st Contact Info) Description 07/11/2019 Transcribed Document [facility] [place] [address] [place] [address] Chano Gatica MD [address], [place] [id number] Social History Tobacco Use Types Packs/Day Years Used Date Smoking Tobacco: Never Assessed Comments Unknown Sex and Gender Information Value Date Recorded Sex Assigned at Not on file Legal Sex Female 2:07 PM CDT Gender Identity Not on file Sexual Orientation Not on file documented as of this encounter Miscellaneous Notes * Cerner Conversion Note - Chano Gatica MD - 07/11/2019 11:47 AM CDT Patient: LUDY ANTONIO Age: 68 years Sex: Female : 1950 Associated Diagnoses: None Author: JACINTO OLIVA MD Subjective 68-year-old female who had recent back surgery by Dr. Lucas, readmitted for back pain NS redo back surgery and culture pending ID also consulted and on iv abx but patient cont confusion and agitation and neurology also saw her yesterday Ct of head showed old CVA saw her today in am and d/w nurse and her family pat is more confused and agitated overnight she did not slept overnight yelled to nurse and agitated , on restrict now in bed d/w her daughter and reported patient has same situation at home , just worse now she yells and agitated at home also said seroquel did help he rsleep in past, but need small dose today her glucose also > 200, still restless and agitated in bed ROS: no fever, no cp or sob, no n/v/d, has confused and agitation Health Status Allergies: Allergic Reactions (Selected) Severity Not Documented Avandia- Chf. Fenofibrate- No reactions were documented. MetFORMIN- No reactions were documented. NSAIDs- No reactions were documented. Statins- Fenofibrate and fenofibrate., Allergies (1) Active Reaction Avandia CHF Current medications: (Selected) Inpatient Medications Ordered Colace: 100 mg, Oral, BID Cubicin + Sodium Chloride 0.9% intravenous solution 50 mL: 700 mg, 14 mL, 128 mL/Hr, IV Piggyback, [id number] Cymbalta: 60 mg, Oral, At Bedtime DuoNeb 0.5 mg-2.5 mg/3 mL inhalation solution: 3 mL, Nebulized Inhalation, RT_Q6H, PRN: Shortness of Breath Flonase: 1 Puff, Nasal, Daily Haldol: 2 mg, IV Push, Q8H, PRN: Agitation Lantus: 20 Units, SubCutaneous, Daily MiraLax: 17 Gram, Oral, Daily, PRN: Constipation Pepcid: 20 mg, IV Push, BID Rocephin: 2 Gram, 100 mL/Hr, IV Piggyback, [id number] SEROquel: 6.25 mg, Oral, BID Senna S: 1 Tab, Oral, Daily Tylenol: 650 mg, Oral, Q4H, PRN: Pain (Mild 1-3) Valium: 5 mg, Oral, Q6H, PRN: Spasms Zofran: 4 mg, IV Push, Q4H, PRN: Nausea formoterol-mometasone 5 mcg-200 mcg/inh inhalation aerosol: 2 [...] chew) Flonase 0.05 mg/inh nasal spray: 2 [place], Nasal, Daily, 16 Gram, 0 Refill(s) Lantus: [...] Bedtime Flonase 0.05 mg/inh nasal spray 2 [place], Nasal, Daily Lantus 60 Units, SubCutaneous, At [...] Scheduled: (14) cefTRIAXone 2 Gram, IV Piggyback, [id number] DAPTOmycin + NaCl 0.9% 50 mL 700 mg 14 mL, IV Piggyback, [id number] docusate sodium 100 mg cap 100 mg 1 Cap, Oral, BID DULoxetine DR 30 mg cap 60 mg 2 Cap, Oral, At Bedtime famotidine 20 mg/2 mL inj 20 mg 2 mL, IV Push, BID fluticasone 0.05% nasal spray 1 Puff, [...] tab 6.25 mg 0.25 Tab, Oral, BID senna/docusate 8.6/50 mg tab 1 Tab, Oral, Daily Continuous: (0) PRN: (8) acetaminophen 325 mg [...] list: Medical Wears glasses / SNOMED CT 668004276 / Confirmed Sleep apnea///risk / SNOMED CT 475948802 / Confirmed Colon polyps / SNOMED CT 694407459 / Confirmed Right leg pain / SNOMED CT 0751530706 / Confirmed Obesity / SNOMED CT 2235902761 / Confirmed Numbness and tingling//right leg / SNOMED CT 4725965509 / Confirmed Memory deficit///slow recall / SNOMED CT 6745178618 / Confirmed H/O ischemic left MCA stroke / SNOMED CT 7145439243 / Confirmed Hiatal hernia / SNOMED CT 136921164 / Complaint of Fibromyalgia / SNOMED CT 956627387 / Confirmed Lumbar disc disease / SNOMED CT 8106128690 / Confirmed Completely occulded L carotid / SNOMED CT 6010936998 / Confirmed Chest pain///cath negative / SNOMED CT 74967756 / Confirmed Cataract///beginning stage / SNOMED CT 576757522 / Confirmed Back pain / SNOMED CT 5330719847 / Confirmed At risk for sleep apnea / IMO 88315441 / Confirmed Pain//chronic / SNOMED CT 040514982 / Confirmed, Active Problems (24) Acid reflux [...] Last Charted Minimum Maximum Temp 97.5 (JUL 11 10:30) 97.5 (JUL 11 10:30) 98 (JUL 10 16:00) Apical HR 80 (JUL 10 21:50) 80 (JUL 10 21:50) 80 (JUL 10 21:50) Mon HR 87 (JUL 11 10:30) 79 (JUL 10 15:45) 91 (JUL 11 06:00) Resp Rate 18 (JUL 11 10:30) 16 (JUL 10 18:15) 18 (JUL 10 15:45) SBP H 160 (JUL 11 10:30) H 148 (JUL 10 15:45) H 170 (JUL 10 23:11) DBP 69 (JUL 11 10:30) L 52 (JUL 10 18:15) 76 (JUL 11 06:00) MAP 88 (JUL 11 10:30) 76 (JUL 10 18:15) 93 (JUL 10 23:11) SpO2 95 (JUL 11 10:30) L 90 (JUL 11 06:00) 97 (JUL 11 08:23) General: Severe distress, agitated . Eye: Pupils are equal, round and reactive to light, Normal conjunctiva. Neck: Supple, Non-tender, No jugular venous distention. Respiratory: Breath sounds are equal, Symmetrical chest wall expansion, No chest wall tenderness. Cardiovascular: Normal rate, No murmur, No gallop. Gastrointestinal: Soft, Non-tender, Normal bowel sounds. Musculoskeletal: No tenderness, No deformity. Integumentary: Warm, Intact, No pallor. Neurologic: No focal deficits, Not oriented. Psychiatric: confused and agitated, Not cooperative, Not appropriate mood & affect. Results Review Lab and test: Labs (Last four charted values) WBC 8.2 (JUL 11) 7.9 (JUL 09) 9.1 (JUL 03) HB 11.5 (JUL 06) 12.6 (JUL 04) 12.0 (JUL 03) HCT 35.6 (JUL 06) 39.8 (OCT 04) 37.3 (OCT 03) Plt 230 (JUL 06) 267 (OCT 04) 268 (JUL 03) Na 140 (JUL 06) 142 (JUL 04) 141 (JUL 03) K 4.2 (JUL 06) 4.4 (JUL 04) 3.9 (JUL 03) Cl 104 (JUL 06) 106 (JUL 04) 105 (JUL 03) CO2 31 (JUL 06) 27 (JUL 04) 30 (JUL 03) BUN 14 (JUL 06) 19 (JUL 04) 20 (JUL 03) Cr 0.90 (JUL 06) H 1.10 (JUL 04) 1.00 (JUL 03) Glu R H 248 (JUL 06) H 207 (JUL 04) H 153 (OCT 03) Ca 9.0 (JUL 06) 9.4 (JUL 04) 9.7 (JUL 03) PT 9.9 (JUL 09) 10.1 (OCT 03) INR 0.9 (JUL 09) 0.9 (JUL 08) PTT 28.0 (JUL 08) AST 16 (JUL 09) 17 (JUL 08) ALT 23 (JUL 09) 21 (JUL 08) ALK P 69 (JUL 09) 63 (JUL 08) T Bili 0.3 (JUL 09) 0.4 (JUL 08) PTN 7.1 (JUL 09) 7.0 (JUL 08) ALB L 3.1 (JUL 09) L 3.2 (JUL 08) Radiology Results (Last 48 hours) [id number] -- 07/08/2019 21:23 CR Fluoro in OR (07/09/2019 15:23) Result: FLUOROSCOPY IN THE OR, WITH IMAGESHISTORY: Back pain.FINDINGS: Fluoroscopy was provided by the radiology department for theclinical service. Fluoroscopic spot films were obtained.A single fluoroscopic image was obtained for lumbar spine surgery. Fluoroscopy exposure time: Less than one minutes.IMPRESSION: See above.Please see operative report for details. Images reviewed, interpreted, and dictated by Dr. Darvin Marcos.Transcribed by Aquiles Guaman (R).I have personally viewed, interpreted and dictated the examination. Ihave read and agree with the above final transcribed report. CT Head WO (07/10/2019 13:07) Result: HEAD CT 07/10/2019 10:42 AM HISTORY: Altered mental status.COMPARISON: April 2019.TECHNIQUE: Multiple axial CT images were performed from the foramenmagnum to the vertex . This study was performed with techniques to keepradiation doses as low as reasonably achievable, (ALARA). Individualizeddose reduction techniques using automated exposure control or adjustmentof mA and/or kV according to the patient size were employed.FINDINGS: The ventricles are unremarkable. There are areas ofencephalomalacia within the left parietal and temporal regions, likelydue to old infarct and is unchanged from April 2019. There isperiventricular deep white matter change, nonspecific likely related tochronic microvascular ischemia. There is no evidence of hemorrhage . No masses are identified . No extra-axial fluid is seen . The sinuses are normal . IMPRESSION: No hemorrhage.No significant change from previous exam.Recommend MRI if symptoms persists. . Images reviewed, interpreted, and dictated by Dr. Judah Christine.Transcribed by Franc Michel PA-C.I have personally viewed, interpreted and dictated the examination. Larry read and agree with the above final transcribed report. Diagnosis / problem acute on chronic psychosis acute encephalopathy Worsening back pain, Redo right L3-4 minimally invasive surgery microdiscectomy. History of diabetes, hypertension, h/o cerebrovascular accident anxiety UTI on admit Plan: 1. see above medication list for treatment. 2. insulin ss, add lantus 20 daily 3. f/u culture 4. on cubi and zosyn 5. ID consult f/u 6. pain control 7. Bp control 8. lovenox sq for DVT prophylaxis 9. add low dose seroquel 6.25 bid 10. ask psychiatry consult in am 11. long d/w family and they agree plan 40 min on case today documented in this encounter Plan of Treatment Not on file documented as of this encounter Visit Diagnoses Not on filedocumented in this encounter
--- OUTSIDE RECORDS SUMMARY | 2025-07-29 11:55 | XMS_ITS | Encounter Summary ---
Author Organization [employer] ([place], [place], [place]) Address [address] [place] [address] Care Team Providers Care Wad Impregnator Name Role Phone Unavailable Primary Care Provider Unavailabl e Encounter Details Date Type Department Care Team (Late st Contact Info) Description 12/04/2018 Transcribed Document [facility] Family Medicine [address] [place] [address] ProviderChano MD [address] [place], [place] [id number] Social History Tobacco Use Types Packs/Day Years Used Date Smoking Tobacco: Never Assessed Comments Unknown Sex and Gender Information Value Date Recorded Sex Assigned at Not on file Legal Sex Female 2:07 PM CDT Gender Identity Not on file Sexual Orientation Not on file documented as of this encounter Miscellaneous Notes * Cerner Conversion Note - Historical ProviderMD - 12/04/2018 8:35 PM COMPLIANCE FIELD TECHNICIAN CR Knee 3 Vws LT Ordered: 12/04/2018 Auth (Verified) Reason for Exam: PAIN 12/04/2018 14:48 CR Hip Uni Comp Min 2 Vws LT Ordered: 12/04/2018 Auth (Verified) Reason for Exam: PAIN 12/04/2018 14:48 12/04/2018 20:35 (SYBIL MCGILL MD-EMR) Reviewed by Provider, No further action required x1 12/04/2018 17:57 (DESEAN LAU) Provider Review Required documented in this encounter Plan of Treatment Not on file documented as of this encounter Visit Diagnoses Not on filedocumented in this encounter
--- OUTSIDE RECORDS SUMMARY | 2025-07-29 11:55 | XMS_ITS | Encounter Summary ---
Author Organization [email or web address] ([place], [place], [place], [place]) Address [address] [place] [address] Care Team Providers Care Wireless Retail Manager Name Role Phone Unavailable Primary Care Provider Unavailabl e Encounter Details Date Type Department Care Team (Late st Contact Info) Description 07/12/2019 Transcribed Document [facility] Family Medicine [facility] [address] ProviderChano MD [address] [place], [place] [phone] Social History Tobacco Use Types Packs/Day Years Used Date Smoking Tobacco: Never Assessed Comments Unknown Sex and Gender Information Value Date Recorded Sex Assigned at Not on file Legal Sex Female 2:07 PM CDT Gender Identity Not on file Sexual Orientation Not on file documented as of this encounter Miscellaneous Notes * Cerner Conversion Note - Chano Gatica MD - 07/12/2019 10:00 AM CDT Patient: LUDY ANTONIO Age: 68 [...] consulted Ct of head showed old CVA yesterday we added seroquel saw her today in am and d/w nurse and her family per report she better today in am and talk well now she is sleep still on iv abx ROS: no fever, no cp or sob, no n/v/d, has confused and agitation Health Status Allergies: Allergic Reactions (Selected) Severity Not Documented Avandia- Chf. Fenofibrate- No reactions were documented. MetFORMIN- No reactions were documented. NSAIDs- No reactions were documented. Statins- Fenofibrate and fenofibrate., Allergies (1) Active Reaction Avandia CHF Current medications: (Selected) Inpatient Medications Ordered Colace: 100 mg, Oral, BID Cymbalta: 60 mg, Oral, At Bedtime DuoNeb [...] Rocephin: 2 Gram, 100 mL/Hr, IV Piggyback, [id number] SEROquel: 6.25 mg, Oral, BID Senna S: [...] mL: 1,500 mg, 250 mL/Hr, IV Piggyback, [id number] Documented Medications Documented Aciphex: 20 mg, Oral, BID Advair Diskus 250 mcg-50 mcg inhalation powder: 1 Puff, Inhalation, Daily, PRN: as needed, 0 Refill(s) Centrum: 1 Tab, Oral, Daily Cymbalta 60 mg oral delayed release capsule: 1 Cap, Oral, At Bedtime, (do not crush or chew) Flonase 0.05 mg/inh nasal spray: 2 [place], Nasal, Daily, 16 Gram, 0 Refill(s) Lantus: [...] Bedtime Flonase 0.05 mg/inh nasal spray 2 [place], Nasal, Daily Lantus 60 Units, SubCutaneous, At [...] Comment , Medications (23) Active Scheduled: (15) cefTRIAXone 2 Gram, IV Piggyback, [id number] docusate sodium 100 mg cap 100 mg 1 Cap, Oral, BID DULoxetine DR 30 mg cap 60 mg 2 Cap, Oral, At Bedtime enoxaparin 40 mg/0.4 mL inj 40 mg 0.4 mL, SubCutaneous, Daily famotidine 20 mg/2 mL inj 20 mg [...] 8.6/50 mg tab 1 Tab, Oral, Daily vancomycin + NaCl 0.9% 250 mL 1,500 mg, IV Piggyback, [id number] Continuous: (0) PRN: (8) acetaminophen 325 mg [...] list: Medical Wears glasses / SNOMED CT 381767886 / Confirmed Sleep apnea///risk / SNOMED CT 360436653 / Confirmed Colon polyps / SNOMED CT 859168294 / Confirmed Right leg pain / SNOMED CT 7349134822 / Confirmed Obesity / SNOMED CT 0835174428 / Confirmed Numbness and tingling//right leg / SNOMED CT 8488620123 / Confirmed Memory deficit///slow recall / SNOMED CT 7838045671 / Confirmed H/O ischemic left MCA stroke / SNOMED CT 9540851702 / Confirmed Hiatal hernia / SNOMED CT 897867106 / Complaint of Fibromyalgia / SNOMED CT 006724675 / Confirmed Lumbar disc disease / SNOMED CT 2360942713 / Confirmed Completely occulded L carotid / SNOMED CT 8050278487 / Confirmed Chest pain///cath negative / SNOMED CT 93314096 / Confirmed Cataract///beginning stage / SNOMED CT 440481584 / Confirmed Back pain / SNOMED CT 2600260790 / Confirmed At risk for sleep apnea / IMO 47638978 / Confirmed Pain//chronic / SNOMED CT 597068975 / Confirmed, Active Problems (24) Acid reflux [...] (JUL 11 18:16) 96 (JUL 11 22:00) General: Mild distress. Neck: Supple, Non-tender, No [...] 09) 12.0 (JUL 08) HCT 35.7 (JUL 07) 35.6 (JUL 06) 39.8 (JUL 04) 37.3 (JUL 03) Plt 263 (JUL 07) 230 (JUL 06) 267 (JUL 09) 268 (JUL 03) Na 142 (JUL 07) 140 (JUL 06) 142 (JUL 04) 141 (JUL 03) K 3.8 (JUL 07) 4.2 (JUL 06) 4.4 (JUL 04) 3.9 (JUL 03) Cl 104 (JUL 07) 104 (JUL 06) 106 (JUL 09) 105 (JUL 03) CO2 31 (JUL 07) [...] culture 4. on roceph and vanco 5. ID consult f/u 6. pain control 7. Bp control 8. lovenox sq for DVT prophylaxis 9. add low dose seroquel 6.25 bid 10. ask psychiatry consult- come tomorrow per cm 11. d/w family and nurse and cm documented in this encounter Plan of Treatment Not on file documented as of this encounter Visit Diagnoses Not on filedocumented in this encounter
--- OUTSIDE RECORDS SUMMARY | 2025-07-29 11:55 | XMS_ITS | Encounter Summary ---
Author Organization [employer] ([place], [place], [place], [place]) Address [address] [place] [address] Care Team Providers Care Ladle Repairer Name Role Phone Unavailable Primary Care Provider Unavailabl e Encounter Details Date Type Department Care Team (Late st Contact Info) Description 07/29/2019 Transcribed Document [facility] [place] Medicine [facility] [place] [address] ProviderChano MD [address], [place] [phone] Social History Tobacco Use Types Packs/Day Years Used Date Smoking Tobacco: Never Assessed Comments Unknown Sex and Gender Information Value Date Recorded Sex Assigned at Not on file Legal Sex Female 2:07 PM CDT Gender Identity Not on file Sexual Orientation Not on file documented as of this encounter Miscellaneous Notes * Cerner Conversion Note - Historical ProviderMD - 07/29/2019 7:46 AM CDT Discharge Summary, PT Entered On: 07/29/2019 7:48 EDT Performed On: 07/29/2019 7:46 EDT by ADELE ARTEAGA, PT Discharge Summary Reason for Discharge : Discharged from hospital Discharged to, Therapy : Home, with home health Discharge Equipment, PT : None Discharge Summary Comment, PT : When last seen the patient was min assist sit><stand and walked 100' with a rollator. She discharged home with the assistance of her and home health. ADELE ARTEAGA, PT - 07/29/2019 7:46 EDT Short Term Goals Mobility/Bed Mobility STG PT Grid Goal #1 Goal #2 Activity : Supine to sit Sit to stand Assist : Assist, minimal Assist, minimal Date to Meet : 07/17/2019 EDT 07/17/2019 EDT Goal Status : Goal met Goal met Date Met : 07/19/2019 EDT 07/16/2019 EDT ADELE ARTEAGA, PT - 07/29/2019 7:46 EDT ADELE ARTEAGA, PT - 07/29/2019 7:46 EDT Ambulation STG Grid Goal #1 Device : Walker, front wheel Distance : 100 Assist : Assist, minimal Date to Meet : 07/17/2019 EDT Goal Status : Goal met Date Met : 07/15/2019 EDT Comment : ADELE ARTEAGA PT - 07/29/2019 7:46 EDT Skilled Nursing Goals Mobility/Bed Mobility LTG PT Grid Goal #1 Goal #2 Activity : Sit to stand Sit to stand Assist : Supervision or set-up Independent, modified Date to Meet : 07/24/2019 EDT 08/10/2019 EST Goal Status : Goal met Not met Date Met : 07/25/2019 EDT Comment : revised 07/27 ADELE ARTEAGA, PT - 07/29/2019 7:46 EDT ADELE ARTEAGA, PT - 07/29/2019 7:46 EDT Ambulation LTG Grid Goal #1 Device : Walker, front wheel Distance : 200' Assist : Supervision or set-up Date to Meet : 08/09/2019 EST Goal Status : Not met Comment : Revised on 07/26 ADELE ARTEAGA, PT - 07/29/2019 7:46 EDT Stairs LTG Grid Goal #1 Number of Steps : 2 Handrail(s) : No handrails Date to Meet : 07/24/2019 EDT Goal Status : Not met ADELE ARTEAGA, PT - 07/29/2019 7:46 EDT documented in this encounter Plan of Treatment Not on file documented as of this encounter Visit Diagnoses Not on filedocumented in this encounter
--- OUTSIDE RECORDS SUMMARY | 2025-07-29 11:55 | XMS_ITS | Encounter Summary ---
Author Organization [employer] ([place], [place], [place], [place]) Address [address] [place] [address] Care Team Providers Care Personal Care Assistant Name Role Phone Unavailable Primary Care Provider Unavailabl e Encounter Details Date Type Department Care Team (Late st Contact Info) Description 07/11/2019 Transcribed Document [facility] [place] [address] [place] [address] ProviderChano MD [address] [place], [place] [id number] Social History Tobacco Use Types Packs/Day Years Used Date Smoking Tobacco: Never Assessed Comments Unknown Sex and Gender Information Value Date Recorded Sex Assigned at Not on file Legal Sex Female 2:07 PM CDT Gender Identity Not on file Sexual Orientation Not on file documented as of this encounter Miscellaneous Notes * Cerner Conversion Note - Chano ProviderMD - 07/11/2019 9:43 AM CDT UM Authorization Entered On: 07/11/2019 9:44 EDT Performed On: 07/11/2019 9:43 EDT by Mary Jackson Rn-Utilization Review Primary Insurance Authorization Authorization and Policy Numbers : Insurance 1 Health Plan: [employer] Policy Number: [id number] Authorization Number: [id number] Insurance Primary Name : [employer] [id number] Authorization Status-Primary : Opo status approv Authorization Fax Number-Primary : [phone] Auth/Referral Phone Number-Primary : [phone] Auth/Referral Contact Name-Primary : Saulo Hanks Authorized Service Begin Date-Primary : 07/08/2019 EDT Observation Authorization Nbr-Primary : [id number] Authorization Comments-Primary : per IPAS patient meets ip criteria. obtained ip order submitted on availity for ip auth Historical Authorization Comments-Primary : Comment 1: submitted for and obtained opo approval from [facility] opo auth# [id number] (ROSEY SANTILLAN, Waste Machine Offbearer 07/09/2019 12:59) Mary Jackson Rn-Utilization Review - 07/11/2019 9:43 EDT Electronically signed by [facility] Conversion Control Panel Builder Cerner at 01/23/2023 1:22 PM CDT documented in this encounter Plan of Treatment Not on file documented as of this encounter Visit Diagnoses Not on filedocumented in this encounter
--- OUTSIDE RECORDS SUMMARY | 2025-07-29 11:55 | XMS_ITS | Encounter Summary ---
Author Organization [employer] ([place], [place], [place], [place]) Address [address] [place] [address] Care Team Providers Care Sinter Press Operator Name Role Phone Unavailable Primary Care Provider Unavailabl e Encounter Details Date Type Department Care Team (Late st Contact Info) Description 07/12/2019 Transcribed Document [facility] [place] Family Medicine [address] [place] [address] ProviderChano MD [address], [place] [phone] Social History Tobacco Use Types Packs/Day Years Used Date Smoking Tobacco: Never Assessed Comments Unknown Sex and Gender Information Value Date Recorded Sex Assigned at Not on file Legal Sex Female 2:07 PM CDT Gender Identity Not on file Sexual Orientation Not on file documented as of this encounter Miscellaneous Notes * Cerner Conversion Note - Historical ProviderMD - 07/12/2019 1:50 PM CDT Patient: LUDY ANTONIO Age: 68 Years Sex: Female : 1950 Subjective Patient is much more alert than when I met her two days ago. She is resting in bed. Able to speak to me fluently . Apparently, however, patient has been intermittently agitated as she has a sitter and has been started on Seroquel 6.25 mg bid. Review of Systems Cardiac - denies any chest pain. Objective Vitals & Measurements T: 36.7 ??C TMIN: 36.4 ??C TMAX: 36.8 ??C HR: 81(Monitored) RR: 16 BP: 140/57 SpO2: 95% Physical Exam EOMI Speech - fluent but sometimes is slightly pressured. Follows commands. oriented to city but thinks we are at [facility]. knows date. Knows current President. Motor - 5/5 in both arms and 4/5 in both legs. TESTS B12 and folate levels - normal CPK mildly elevated at 246 AST and ALT - normal Assessment/Plan Ludy Antonio is a 68-year-old female with diabetes, cerebrovascular disease, an occluded left carotid artery, back pain as well as multiple orthopedic procedures and chronic gait disorder, who has had a three month history of encephalopathy. She currently is hospitalized after having recurrent back surgery on right L3-4 on July 08. Her encephalopathy seems improved today from when I met her two days ago. The differential for her encephalopathy could include one or a combination of the following: RECOMMENDATIONS: At this time, I am recommending the following. 1. I agree with Seroquel trial . 2. At discharge, she should follow up with her outpatient neurologist , Dr. Núñez. 3. No driving until released by a physician. 4. I am also requesting records from her outpatient neurologist , Dr. Núñez. Will follow intermittently. Medications Inpatient Colace, 100 mg= 1 Cap, [...] mg= 2 mL, IV Push, Q4H, PRN Electronically signed by Summer [facility] Conversion Packer Operator Automatic [employer] at 01/23/2023 1:14 PM CDT documented in this encounter Plan of Treatment Not on file documented as of this encounter Visit Diagnoses Not on filedocumented in this encounter
--- OUTSIDE RECORDS SUMMARY | 2025-07-29 11:55 | XMS_ITS | Encounter Summary ---
Author Organization [employer] ([place], [place], [place], [place]) Address [address] [place] [address] Care Team Providers Care Cable Maker Name Role Phone Unavailable Primary Care Provider Unavailabl e Encounter Details Date Type Department Care Team (Late st Contact Info) Description 07/12/2019 Transcribed Document [facility] [place] [address] [place] [address] ProviderChano MD [address], [place] [phone] Social History Tobacco Use Types Packs/Day Years Used Date Smoking Tobacco: Never Assessed Comments Unknown Sex and Gender Information Value Date Recorded Sex Assigned at Not on file Legal Sex Female 2:07 PM CDT Gender Identity Not on file Sexual Orientation Not on file documented as of this encounter Miscellaneous Notes * Cerner Conversion Note - Historical ProviderMD - 07/12/2019 2:29 PM CDT Attempt to Treat, PT Entered On: 07/12/2019 14:43 EDT Performed On: 07/12/2019 14:29 EDT by JOHN ROSENTHAL PT Attempt to Treat Unable to Treat Due To : Patient Refusal Inability to Treat Comment : despite education on benefits of therapy, pt again refusing therapy stating I just got comfortable with the medicine...please I'll do it tomorrow...come back tomorrow will check back as time permits/appropriate JOHN ROSENTHAL PT - 07/12/2019 14:42 EDT documented in this encounter Plan of Treatment Not on file documented as of this encounter Visit Diagnoses Not on filedocumented in this encounter
--- OUTSIDE RECORDS SUMMARY | 2025-07-29 11:55 | XMS_ITS | Encounter Summary ---
Author Organization [employer] ([place], [place], [place], [place]) Address [address] [place] [address] Care Team Providers Care Kiln Door Repairer Name Role Phone Unavailable Primary Care Provider Unavailabl e Encounter Details Date Type Department Care Team (Late st Contact Info) Description 07/13/2019 Transcribed Document [facility] [place] [address] [place] [address] ProviderChano MD [address], [place] [phone] Social History Tobacco Use Types Packs/Day Years Used Date Smoking Tobacco: Never Assessed Comments Unknown Sex and Gender Information Value Date Recorded Sex Assigned at Not on file Legal Sex Female 2:07 PM CDT Gender Identity Not on file Sexual Orientation Not on file documented as of this encounter Miscellaneous Notes * Cerner Conversion Note - Historical ProviderMD - 07/13/2019 12:00 PM CDT Attempt to Treat, PT Entered On: 07/13/2019 12:01 EDT Performed On: 07/13/2019 12:00 EDT by ANNA MALONE PT Attempt to Treat Inability to Treat Comment : Patient has been to multiple times today for bathroom issues. Will hold off on PT till the PM, patient just back to bed ANNA MALONE, PT - 07/13/2019 12:00 EDT documented in this encounter Plan of Treatment Not on file documented as of this encounter Visit Diagnoses Not on filedocumented in this encounter
--- OUTSIDE RECORDS SUMMARY | 2025-07-29 11:55 | XMS_ITS | Encounter Summary ---
Author Organization [employer] ([place], [place], [place], [place]) Address [address] [place] [address] Care Team Providers Care Acls Specialist Name Role Phone Unavailable Primary Care Provider Unavailabl e Encounter Details Date Type Department Care Team (Late st Contact Info) Description 07/11/2019 Transcribed Document [facility] [place] Medicine [address] [place] [address] ProviderChano MD [address] [place], [place] [address] Social History Tobacco Use Types Packs/Day Years Used Date Smoking Tobacco: Never Assessed Comments Unknown Sex and Gender Information Value Date Recorded Sex Assigned at Not on file Legal Sex Female 2:07 PM CDT Gender Identity Not on file Sexual Orientation Not on file documented as of this encounter Miscellaneous Notes * Cerner Conversion Note - Chano ProviderMD - 07/11/2019 1:30 PM CDT Spiritual Care Assessment Entered On: 07/11/2019 14:53 EDT Performed On: 07/11/2019 13:30 EDT by CAMPBELL GUERRERO Chaplain-Non Cert General Information Initial Visit : Yes Referred by : Nurse Referral Reason Comment : RN reqested support per family needs. Ministry Provided to : Patient, Family/Significant other Moravian Preference : [employer] CAMPBELL GUERRERO Chaplain-Non Cert - 07/11/2019 14:33 EDT Spiritual Assessment Spiritual Assessment Comment/Summary Points : wanted to know about POA for pt. Cp talked about POAs, HCS, LW. was concerned for pt since having strokes several years ago and becoming less able to make decisions. Ultimatily realized that he needed to go to a edger machine setter. Cp encouraged and dtr processing of health challenges with pt. 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 Family desired prayer. Group gathered around pt. Cp prayed asking God's peace and guidance for pt/family. Pt had been eating for son. Cp encouraged pt to keep up the good work . She smiled but said she was no longer hungry. Family struggling to get pt to eat. Spirital Assessment Comment/Summary Report : SPIRITUAL ASSESSMENT COMMENT/SUMMARY No qualifying data available. CAMPBELL GUERRERO Chaplain-Non Cert - 07/11/2019 14:33 EDT Interventions Emotional Support : Anxiety reduction initiated, Emotional, Empathic/Engaged listening, Established trust, Family/Significant other supported, Feelings expressed Spiritual and Moravian : Prayer shared CAMPBELL GUERRERO Chaplain-Non Cert - 07/11/2019 14:33 EDT Outcomes Spiritual Care Outcomes Comment : Pt/family very appreciative for s.c. Cp offered prn support. CAMPBELL GUERRERO Chaplain-Non Cert - 07/11/2019 14:33 EDT documented in this encounter Plan of Treatment Not on file documented as of this encounter Visit Diagnoses Not on filedocumented in this encounter
--- OUTSIDE RECORDS SUMMARY | 2025-07-29 11:55 | XMS_ITS | Encounter Summary ---
Author Organization [employer] ([place], [place], [place], [place]) Address [address] [place] [address] Care Team Providers Care Hand Mold Maker Name Role Phone Unavailable Primary Care Provider Unavailabl e Encounter Details Date Type Department Care Team (Late st Contact Info) Description 07/11/2019 Transcribed Document [facility] [place] [address] [place] [address] ProviderChano MD [address] [place] [phone] Social History Tobacco Use Types Packs/Day Years Used Date Smoking Tobacco: Never Assessed Comments Unknown Sex and Gender Information Value Date Recorded Sex Assigned at Not on file Legal Sex Female 2:07 PM CDT Gender Identity Not on file Sexual Orientation Not on file documented as of this encounter Miscellaneous Notes * Cerner Conversion Note - Chano Gatica MD - 07/11/2019 11:59 AM CDT Patient: LUDY ANTONIO Age: 68 [...] epithelial cells. Urine culture was positive for [id number] CFU/mL. CT of the L-spine was negative. [...] or confusion. ROS and hx discussed with [id number], has had ceofusion and fever last 2 weeks. 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, especially this summer Allergies:Allergies (1) Active Reaction Avandia CHF Medications:Medications by Classification Antimicrobials cefTRIAXone (Rocephin) - 2 Gram, IV Piggyback, [id number], infuse over 30 Minute(s), Routine DAPTOmycin + Sodium Chloride 0.9% intravenous solution 50 mL - 700 mg, IV Piggyback, [id number], infuse over 30 Minute(s), Routine Anticoagulant enoxaparin [...] fluticasone nasal (Flonase) - 1 Puff, Nasal, [place], Daily, Routine Pain Meds morphine - 2 [...] (JUL 11 06:00) 97 (JUL 11 08:23) Exam: Gen: Alert, not cooperative, confused HEENT: [...] eruptions, lesions, or rashes NEURO: combative PSYCH: seems a bit confused Labs:Labs (Last four charted values) WBC 8.2 (JUL 11) 7.9 (JUL 09) 9.1 (JUL 03) HB 11.5 (JUL 11) 12.6 (JUL 09) 12.0 (JUL 03) HCT 35.6 (JUL 11) 39.8 (JUL 09) 37.3 (JUL 03) Plt 230 (JUL 11) 267 (JUL 09) 268 (JUL 03) Na 140 (JUL 11) 142 (JUL 09) 141 (JUL 03) K 4.2 (JUL 11) 4.4 (JUL 09) 3.9 (JUL 03) Cl 104 (JUL 11) 106 (JUL 09) 105 (JUL 03) CO2 31 (JUL 11) 27 (JUL 09) 30 (JUL 03) BUN 14 (JUL 11) 19 (JUL 09) 20 (JUL 08) Cr 0.90 (JUL 11) H 1.10 (JUL 09) 1.00 (JUL 08) Glu R H 248 (JUL 11) H 207 (JUL 09) H 153 (JUL 08) Ca 9.0 (JUL 11) 9.4 (JUL 09) 9.7 [...] (JUL 09) L 3.2 (JUL 08) Micro: Rad: Radiology Results (Last 48 hours) [id number] -- 07/08/2019 21:23 CR Fluoro in OR [...] agree with the above final transcribed report. 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 Electronically signed by Julian Wheeler Conversion Wellness Program Administrator [employer]ner at 01/23/2023 1:13 PM CDT documented in this encounter Plan of Treatment Not on file documented as of this encounter Visit Diagnoses Not on filedocumented in this encounter
--- OUTSIDE RECORDS SUMMARY | 2025-07-29 11:55 | XMS_ITS | Encounter Summary ---
Author Organization [employer] ([place], [place], [place], [place]) Address [address] [place] [address] Care Team Providers Care Dye House Supervisor Name Role Phone Unavailable Primary Care Provider Unavailabl e Encounter Details Date Type Department Care Team (Late st Contact Info) Description 07/12/2019 Transcribed Document [facility] [place] [address] [place] [address] ProviderChano MD [address] [place], [place] [phone] Social History Tobacco Use Types Packs/Day Years Used Date Smoking Tobacco: Never Assessed Comments Unknown Sex and Gender Information Value Date Recorded Sex Assigned at Not on file Legal Sex Female 2:07 PM CDT Gender Identity Not on file Sexual Orientation Not on file documented as of this encounter Miscellaneous Notes * Cerner Conversion Note - Chano ProviderMD - 07/12/2019 3:48 PM CDT Initial Discharge Planning Entered On: 07/12/2019 15:52 EDT Performed On: 07/12/2019 15:48 EDT by HORACIO ACHARYA RN-Plater Helper Initial Assessment I Previously Documented Living Environment : No qualifying data available. Living Situation : Home Patient Lives With : Spouse Is the Patient a Caregiver at Home? : No Employment/Vocation : Pt is disabled Emergency Contact #1 : Kian Lathambianka Emergency Contact #1 Emergency Contact #1 Relationship : spouse Emergency Contact #2 : Alma Rosa Zepeda Emergency Contact #2 Emergency Contact #2 Relationship : dgt Medical Durable Power of Assistant In Nursing Name : No Legal Guardian : No HORACIO ACHARYA RN-Plater Helper - 07/12/2019 15:48 EDT Initial Assessment II Sensory and Motor Deficits : Cognitive deficit, Other: mental status HORACIO ACHARYA RN-Plater Helper - 07/12/2019 15:48 EDT Discharge Needs I Anticipated Discharge To, CM : Home with family care, Psychiatric Unit, jail facility Current Home Treatment/Equipment : Current Home Treatment/Equipment No qualifying data available. Documentation Status Complete : Yes HORACIO ACHARYA RN-Plater Helper - 07/12/2019 15:48 EDT Discharge Needs II Professional Skilled Services : Professional Skilled Services No qualifying data available. HORACIO ACHARYA RN-Plater Helper - 07/12/2019 15:48 EDT Narrative Note Narrative Note : 68yo female pt admitted with lbp and AMS. Pt had L3-4 fusion a month ago and came back with possible infection. Pt underwent L3-4 redo lmd--no infection noted. 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 Neuro consulted. Dr. Valdez consulted. Spoke to Krystal with Dr. Valdez this am, he will see pt tomorrow 10/8 am. DCP dependent upon psych eval. D/W family at bedside. HORACIO ACHARYA RN-Plater Helper - 07/12/2019 15:48 EDT Electronically signed by Julian Wheeler Conversion Architectural Superintendent Cerner at 01/23/2023 1:40 PM CDT documented in this encounter Plan of Treatment Not on file documented as of this encounter Visit Diagnoses Not on filedocumented in this encounter
--- OUTSIDE RECORDS SUMMARY | 2025-07-29 11:55 | XMS_ITS | Encounter Summary ---
Author Organization [employer] ([place], [place], [place], [place]) Address [address] [place] [address] Care Team Providers Care Route Salesman And Driver Name Role Phone Unavailable Primary Care Provider Unavailabl e Encounter Details Date Type Department Care Team (Late st Contact Info) Description 07/13/2019 Transcribed Document [facility] [place] [address] [place] [address] ProviderChano MD [address] [place], [place] [phone] Social History Tobacco Use Types Packs/Day Years Used Date Smoking Tobacco: Never Assessed Comments Unknown Sex and Gender Information Value Date Recorded Sex Assigned at Not on file Legal Sex Female 2:07 PM CDT Gender Identity Not on file Sexual Orientation Not on file documented as of this encounter Miscellaneous Notes * Cerner Conversion Note - Historical ProviderMD - 07/13/2019 5:00 AM CDT Chart Check - Review Order Profile Entered On: 07/12/2019 22:56 EDT Performed On: 07/12/2019 22:55 EDT by Angelica Michel Rn-Flex Team Chart Check Powerplans Initiated/Discontinued as Appropriate : Yes All Active Orders Reviewed : Yes Angelica Michel Rn-Flex Team - 07/12/2019 22:55 EDT documented in this encounter Plan of Treatment Not on file documented as of this encounter Visit Diagnoses Not on filedocumented in this encounter
--- OUTSIDE RECORDS SUMMARY | 2025-07-29 11:55 | XMS_ITS | Encounter Summary ---
Author Organization [employer] ([place], [place], [place], [place]) Address [address] [place] [address] Care Team Providers Care Diversified Crops Supervisor Name Role Phone Unavailable Primary Care Provider Unavailabl e Encounter Details Date Type Department Care Team (Late st Contact Info) Description 07/11/2019 Transcribed Document [facility] [place] [address] [place] [address] ProviderChano MD [address], [place] [phone] Social History Tobacco Use Types Packs/Day Years Used Date Smoking Tobacco: Never Assessed Comments Unknown Sex and Gender Information Value Date Recorded Sex Assigned at Not on file Legal Sex Female 2:07 PM CDT Gender Identity Not on file Sexual Orientation Not on file documented as of this encounter Miscellaneous Notes * Cerner Conversion Note - Historical ProviderMD - 07/11/2019 5:00 PM CDT Chart Check - Review Order Profile Entered On: 07/11/2019 16:04 EDT Performed On: 07/11/2019 17:00 EDT by MARGE GRIFFIN, RN Chart Check Powerplans Initiated/Discontinued as Appropriate : Yes All Active Orders Reviewed : Yes MARGE GRIFFIN, RN - 07/11/2019 16:04 EDT documented in this encounter Plan of Treatment Not on file documented as of this encounter Visit Diagnoses Not on filedocumented in this encounter
--- OUTSIDE RECORDS SUMMARY | 2025-07-29 11:55 | XMS_ITS | Encounter Summary ---
Author Organization [employer] ([place], [place], [place], [place]) Address [address] [place] [address] Care Team Providers Care Head Concierge Name Role Phone Unavailable Primary Care Provider Unavailabl e Encounter Details Date Type Department Care Team (Late st Contact Info) Description 10/05/2019 Transcribed Document [facility] [place] [address] [place] [address] ProviderChano MD [address] [phone] Social History Tobacco Use Types Packs/Day Years Used Date Smoking Tobacco: Never Assessed Comments Unknown Sex and Gender Information Value Date Recorded Sex Assigned at Not on file Legal Sex Female 2:07 PM CDT Gender Identity Not on file Sexual Orientation Not on file documented as of this encounter Miscellaneous Notes * Cerner Conversion Note - Historical ProviderMD - 10/05/2019 9:07 PM DIGITAL CONTENT MARKETING MANAGER Pain Assessment Entered On: 10/05/2019 22:22 EST Performed On: 10/05/2019 22:22 EST by KYA RODRIGES RN Intervention Information: morphine Performed by Ludmila Bose, Residential Caregiver on 10/05/2019 21:52:00 EST morphine,4mg IV Push,Peripheral Line 1 Pain Assessment Pain Assessment : Follow-up assessment Pain Scale Used : FACES Location : Other: buttocks KYA RODRIGES RN - 10/05/2019 22:22 EST Pain Scale Intensity : 8 KYA RODRIGES RN - 10/05/2019 22:22 EST Image 4 - Images currently included in the form version of this document have not been included in the text rendition version of the form. documented in this encounter Plan of Treatment Not on file documented as of this encounter Visit Diagnoses Not on filedocumented in this encounter
--- OUTSIDE RECORDS SUMMARY | 2025-07-29 11:55 | XMS_ITS | Encounter Summary ---
Author Organization [employer] ([place], [place], [place], [place]) Address [address] [place] [address] Care Team Providers Care Commercial Banker Name Role Phone Unavailable Primary Care Provider Unavailabl e Encounter Details Date Type Department Care Team (Late st Contact Info) Description 07/12/[address] [facility] [place] [address] [place] [address] ProviderChano MD [address] [place], [place] [phone] Social History Tobacco Use Types Packs/Day Years Used Date Smoking Tobacco: Never Assessed Comments Unknown Sex and Gender Information Value Date Recorded Sex Assigned at Not on file Legal Sex Female 2:07 PM CDT Gender Identity Not on file Sexual Orientation Not on file documented as of this encounter Miscellaneous Notes * Cerner Conversion Note - Historical ProviderMD - 07/12/2019 10:06 AM CDT Attempt to Treat, OT Entered On: 07/12/2019 11:33 EDT Performed On: 07/12/2019 10:06 EDT by BOB BAUER OTR/Rob Attempt to Treat Unable to Treat Due To : Patient Refusal Inability to Treat Comment : Pt refusing due to drowsiness. Pt just had meds and has just gone back to bed. Pt would like to sleep at this time. Family states that pt has been up in room today to BSC and also up in chair. Notification : BOB España OTR/Rob - 07/12/2019 11:32 EDT Electronically signed by Julian Wheeler Conversion Bilingual Speech Language Pathologist Cerner at 01/23/2023 1:28 PM CDT documented in this encounter Plan of Treatment Not on file documented as of this encounter Visit Diagnoses Not on filedocumented in this encounter
--- OUTSIDE RECORDS SUMMARY | 2025-07-29 11:55 | XMS_ITS | Encounter Summary ---
Author Organization [employer] ([place], [place], [place], [place]) Address [address] [place] [address] Care Team Providers Care Revenue Manager Name Role Phone Unavailable Primary Care Provider Unavailabl e Encounter Details Date Type Department Care Team (Late st Contact Info) Description 07/12/2019 Transcribed Document [facility] [place] Family Medicine [address] [place] [address] ProviderChano MD [address], [place] [phone] Social History Tobacco Use Types Packs/Day Years Used Date Smoking Tobacco: Never Assessed Comments Unknown Sex and Gender Information Value Date Recorded Sex Assigned at Not on file Legal Sex Female 2:07 PM CDT Gender Identity Not on file Sexual Orientation Not on file documented as of this encounter Miscellaneous Notes * Cerner Conversion Note - Historical ProviderMD - 07/12/2019 10:10 AM CDT Attempt to Treat, PT Entered On: 07/12/2019 10:31 EDT Performed On: 07/12/2019 10:10 EDT by JOHN ROSENTHAL PT Attempt to Treat Unable to Treat Due To : Patient Refusal Inability to Treat Comment : pt stating just getting medications and now groggy; pt and family requesting pm to come back; will check back as time permits/appropriate JOHN ROSENTHAL PT - 07/12/2019 10:30 EDT documented in this encounter Plan of Treatment Not on file documented as of this encounter Visit Diagnoses Not on filedocumented in this encounter
--- OUTSIDE RECORDS SUMMARY | 2025-07-29 11:55 | XMS_ITS | Encounter Summary ---
Author Organization [employer] ([place], [place], [place], [place]) Address [address] [place] [address] Care Team Providers Care Iron Plastic Bullet Maker Name Role Phone Unavailable Primary Care Provider Unavailabl e Encounter Details Date Type Department Care Team (Late st Contact Info) Description 07/11/2019 Transcribed Document [facility] [place] [address] [place] [address] ProviderChano MD [address] [place], [place] [id number] Social History Tobacco Use Types Packs/Day Years Used Date Smoking Tobacco: Never Assessed Comments Unknown Sex and Gender Information Value Date Recorded Sex Assigned at Not on file Legal Sex Female 2:07 PM CDT Gender Identity Not on file Sexual Orientation Not on file documented as of this encounter Miscellaneous Notes * [employer]ner Conversion Note - Historical ProviderMD - 07/11/2019 2:00 AM CDT Inspector Water Pollution Control Details Entered On: 07/11/2019 6:08 EDT Performed On: 07/11/2019 2:00 EDT by Eriberto Crawley Rn-Resource Order Details Transport Mode Order Detail : Wheelchair Isolation Precautions Order Detail : Standard Precautions Order Detail : 0 IV Order Detail : 1 Oxygen Order Detail : 0 Nurse Collect Order Detail : 0 Lift/Transfer : Maximal assist Central Line Order Detail : No Room Service : Not Appropriate Arterial Line : No Eriberto Crawley Rn-Resource - 07/11/2019 6:08 EDT documented in this encounter Plan of Treatment Not on file documented as of this encounter Visit Diagnoses Not on filedocumented in this encounter
--- OUTSIDE RECORDS SUMMARY | 2025-07-29 11:55 | XMS_ITS | Encounter Summary ---
Author Organization [employer] ([place], [place], [place], [place]) Address [address] [place] [address] Care Team Providers Care Cnc Mill Programmer Name Role Phone Unavailable Primary Care Provider Unavailabl e Encounter Details Date Type Department Care Team (Late st Contact Info) Description 10/05/2019 Transcribed Document [facility] [place] [address] [place] [address] ProviderChano MD [address] [place], [place] [phone] Social History Tobacco Use Types Packs/Day Years Used Date Smoking Tobacco: Never Assessed Comments Unknown Sex and Gender Information Value Date Recorded Sex Assigned at Not on file Legal Sex Female 2:07 PM CDT Gender Identity Not on file Sexual Orientation Not on file documented as of this encounter Miscellaneous Notes * [employer]ner Conversion Note - Historical ProviderMD - 10/05/2019 6:04 PM SYSTEM PLANNING ENGINEER [place] Suicide Severity Rating Scale (C-SSRS) Entered On: 10/05/2019 20:59 EST Performed On: 10/05/2019 20:42 EST by SRINIVAS RODRIGES RN-Resource [place] Suicide Severity Rating Scale (C-SSRS) CSSRS Past Month Wish to be : No CSSRS Past Month Suicidal Thoughts : No CSSRS Lifetime Suicide Behavior : No Suicide Severity Rating Score : 0 Suicide Severity Rating : No Additional Care Required at this time SRINIVAS RODRIGES RN-Resource - 10/05/2019 20:42 EST documented in this encounter Plan of Treatment Not on file documented as of this encounter Visit Diagnoses Not on filedocumented in this encounter
--- OUTSIDE RECORDS SUMMARY | 2025-07-29 11:55 | XMS_ITS | Encounter Summary ---
Author Organization [employer] ([place], [place], [place], [place]) Address [address] [place] [address] Care Team Providers Care Silver Wrapper Name Role Phone Unavailable Primary Care Provider Unavailabl e Encounter Details Date Type Department Care Team (Late st Contact Info) Description 07/12/2019 Transcribed Document [facility] [place] [address] [place] [address] ProviderChano MD [address], [place] [id number] Social History Tobacco Use Types Packs/Day Years Used Date Smoking Tobacco: Never Assessed Comments Unknown Sex and Gender Information Value Date Recorded Sex Assigned at Not on file Legal Sex Female 2:07 PM CDT Gender Identity Not on file Sexual Orientation Not on file documented as of this encounter Miscellaneous Notes * Cerner Conversion Note - Historical ProviderMD - 07/12/2019 5:00 PM CDT Chart Check - Review Order Profile Entered On: 07/12/2019 17:43 EDT Performed On: 07/12/2019 17:00 EDT by MARGE GRIFFIN, RN Chart Check Powerplans Initiated/Discontinued as Appropriate : Yes All Active Orders Reviewed : Yes MARGE GRIFFIN, RN - 07/12/2019 17:43 EDT documented in this encounter Plan of Treatment Not on file documented as of this encounter Visit Diagnoses Not on filedocumented in this encounter
--- OUTSIDE RECORDS SUMMARY | 2025-07-29 11:56 | XMS_ITS | Encounter Summary ---
Author Organization [employer] ([place], [place], [place], [place]) Address [address] [place] [address] Care Team Providers Care Taker Off Hemp Fiber Name Role Phone Unavailable Primary Care Provider Unavailabl e Encounter Details Date Type Department Care Team (Late st Contact Info) Description 07/27/2019 Transcribed Document [facility] Radiology [address] [place] [address] Abby Reid MD [address] [place] [address] [place] [address] Social History Tobacco Use Types Packs/Day Years Used Date Smoking Tobacco: Never Assessed Comments Unknown Sex and Gender Information Value Date Recorded Sex Assigned at Not on file Legal Sex Female 2:07 PM CDT Gender Identity Not on file Sexual Orientation Not on file documented as of this encounter Miscellaneous Notes * Cerner Conversion Note - Abby Reid MD - 07/27/2019 4:12 PM EDT Patient: LUDY ANTONIO Age: 68 years Sex: Female : 1950 Associated Diagnoses: None Author: ABBY REID MD-INT Subjective Discharge Summary Date of Admission: 07/11/2019 DATE OF DISCHARGE: 07/27/2019 PRIMARY CARE PHYSICIAN: Dr. Jordan Lopez. CONSULTATION [...] Acute on chronic severe psychosis requiring psychiatric consultation 2. Acute encephalopathy due to underlying psychosis, [...] examined by neurosurgical service and taken for above mentioned surgical intervention. Postoperatively, the patient continued to [...] subsequently added for suspected neuropathic pain. With above mentioned therapeutic interventions, the patient's clinical status gradually improved. The patient was maintained on sliding scale insulin in addition to Lantus. She did have some hyperglycemic issues which had subsequently improved. Please note I met this patient first time on July 21, 2019 Please note this discharge summary comes from my review of medical records without direct encounter with the patient up until 07/21/2019. Per Case Management, the patient has been referred to rehabilitation facility. Please note the patient seems to be stable and ready for discharge. The patient also received antibiotic support by Dr. Jama of Infectious Disease, which has since been discontinued. On July 27, 2019 Patient seen earlier in the day during routine rounds. She was sitting on the chair. Her pain seems to be better controlled now No family is around this morning when I saw her Patient Court evaluated by MARINA today. Patient was walking adequately this morning per nursing staff report Case management has exhausted almost all the avenues for potential placement Asper Sisi JULIO. I had extensive discussion with the case management as well as nursing staff Patient is being discharged home today. I will arrange home health Family is aware to take patient to the [facility] emergency room right away If she develops any psychotic symptoms. Her mentation currently seems stable She is not homicidal or suicidal. Patient seems to be ready for discharge at this time. Discharge Medications (16) Active Aciphex 20 mg, Oral, BID Advair Diskus 250 mcg-50 mcg inhalation powder 1 Puff, PRN, Inhalation, Daily Centrum 1 Tab, Oral, Daily Cymbalta 60 mg oral delayed release capsule 60 mg = 1 Cap, Oral, At Bedtime Flonase 0.05 mg/inh nasal spray 2 [place], Nasal, Daily gabapentin 300 mg oral capsule [...] 6.25 mg = 0.25 Tab, Oral, BID Vitamin D3 50,000 Int Units, Oral, See Comment DISCHARGE AND FOLLOWUP INSTRUCTIONS: 1. Follow up with Dr. Thom Lucas on 08/11/2019. 2. Follow up with Neurology on 08/04/2019. 3. Follow up with PCP. 4. The patient was seen and examined on the day of discharge. 5. Discharge plan discussed with the patient as well as RN and CM. FINAL DISPOSITION: Discharged to home. Please note greater than 30 minutes spent on this discharge. Health Status Allergies: Allergic Reactions (Selected) Severity Not Documented Avandia- Chf. Fenofibrate- No reactions were documented. MetFORMIN- No reactions were documented. NSAIDs- No reactions were documented. Statins- Fenofibrate and fenofibrate., Allergies (1) Active Reaction Avandia CHF Current medications: (Selected) Inpatient Medications Ordered Cymbalta: 60 mg, Oral, At Bedtime Desenex AF 2% topical powder: 1 Application, [...] Q6H, PRN: Pain (Moderate 4-6) Prescriptions Prescribed Lidoderm 5% topical film: 2 [...] chew) Flonase 0.05 mg/inh nasal spray: 2 [place], Nasal, Daily, 16 Gram, 0 Refill(s) Lantus [...] Bedtime, 30 Tab, 0 Refill(s), Home Medications (16) Active Aciphex 20 mg, Oral, BID Advair Diskus 250 mcg-50 mcg inhalation powder 1 Puff, PRN, Inhalation, Daily Centrum 1 Tab, Oral, Daily Cymbalta 60 mg oral delayed release capsule 60 mg = 1 Cap, Oral, At Bedtime Flonase 0.05 mg/inh nasal spray 2 [place], Nasal, Daily gabapentin 300 mg oral capsule [...] 6.25 mg = 0.25 Tab, Oral, BID Vitamin D3 50,000 Int Units, Oral, See Comment , Medications (23) Active Scheduled: (15) DULoxetine DR 30 mg cap 60 mg [...] Problem list: Medical Pain//chronic / SNOMED CT 010103010 / Confirmed At risk for sleep apnea / IMO 52785200 / Confirmed Back pain / SNOMED CT 6892296883 / Confirmed Cataract///beginning stage / SNOMED CT 898122696 / Confirmed Chest pain///cath negative / SNOMED CT 78157644 / Confirmed Completely occulded L carotid / SNOMED CT 8185185695 / Confirmed Lumbar disc disease / SNOMED CT 6736646512 / Confirmed Fibromyalgia / SNOMED CT 494343010 / Confirmed Hiatal hernia / SNOMED CT 775001286 / Complaint of H/O ischemic left MCA stroke / SNOMED CT 9821997244 / Confirmed Memory deficit///slow recall / SNOMED CT 5655933593 / Confirmed Numbness and tingling//right leg / SNOMED CT 8455085755 / Confirmed Obesity / SNOMED CT 2924446545 / Confirmed Right leg pain / SNOMED CT 1658561280 / Confirmed Colon polyps / SNOMED CT 536779915 / Confirmed Sleep apnea///risk / SNOMED CT 821499164 / Confirmed Wears glasses / SNOMED CT 873183989 / Confirmed, Active Problems (24) Acid reflux [...] Last Charted Minimum Maximum Temp 98.1 (JUL 27 11:05) 97.5 (JUL 27 06:32) 98.2 (JUL 27 11:00) Apical HR 68 (JUL 27 09:12) 60 (JUL 26 22:33) 68 (JUL 27 09:12) Mon HR 67 (JUL 27 11:05) 60 (JUL 26 22:30) 68 (JUL 27 09:15) Resp Rate 17 (JUL 27 11:05) 16 (JUL 26 18:00) 18 (JUL 27 06:32) SBP 108 (JUL 27 11:00) 106 (JUL 27 06:32) 138 (JUL 26 22:30) DBP 68 (JUL 27 11:00) L 49 (JUL 26 21:15) 68 (JUL 27 11:00) MAP 80 (JUL 27 11:00) 68 (JUL 27 06:32) 94 (JUL 26 21:15) SpO2 L 91 (JUL 27 11:05) L 91 (JUL 27 11:05) 95 (JUL 26 18:00) General: Moderate distress. Neck: Supple, Non-tender, No jugular venous distention. Respiratory: Breath sounds are equal, Symmetrical chest wall expansion, No chest wall tenderness. Cardiovascular: Normal rate, No murmur, No gallop. Gastrointestinal: Soft, Non-tender, Normal bowel sounds. Musculoskeletal: No tenderness, No deformity. Integumentary: Warm, Intact, No pallor. Neurologic: Alert. Psychiatric: Cooperative. Results Review Lab and test: Labs (Last four charted values) WBC 8.8 (JUL 27) 7.2 (JUL 17) 8.4 (JUL 16) 7.2 (JUL 13) HB 11.9 (JUL 27) 11.7 (OCT 17) 11.6 (OCT 16) 11.3 (JUL 13) HCT 38.1 (JUL 27) 40.4 (OCT 17) 37.0 (OCT 16) 35.4 (OCT 13) Plt 311 (JUL 22) 241 (OCT 17) 273 (OCT 16) 277 (JUL 13) Na 138 (JUL 22) 137 (JUL 17) 141 (OCT 16) 143 (OCT 13) K 4.9 (JUL 22) 4.2 (OCT 17) 3.7 (OCT 16) 4.1 (OCT 13) Cl 105 (JUL 22) 107 (OCT 17) 107 (OCT 16) 106 (OCT 13) CO2 26 (JUL 22) 24 (JUL 17) 29 (OCT 16) 30 (OCT 13) BUN H 29 (JUL 22) H 24 (OCT 17) H 27 (OCT 16) H 23 (OCT 13) Cr H 1.20 (JUL 22) H 1.06 (OCT 17) 1.00 (OCT 16) 1.00 (JUL 13) Glu R H 207 (JUL 27) H 172 (OCT 17) H 134 (OCT 16) H 213 (JUL 18) Ca 9.5 (JUL 27) 9.0 (JUL 22) 9.1 (JUL 21) 9.4 (JUL 18) PT 9.9 (JUL 09) 10.1 (JUL 08) INR 0.9 (JUL 09) 0.9 (JUL 08) PTT 28.0 (JUL 08) AST 20 (JUL 27) 15 (JUL 21) 18 (JUL 12) 16 (JUL 09) ALT 24 (JUL 27) 24 (JUL 21) 25 (JUL 12) 23 (JUL 09) ALK P 56 (JUL 27) 56 (JUL 21) 56 (JUL 12) 69 (JUL 09) T Bili L 0.1 (JUL 27) 0.3 (JUL 21) 0.3 (JUL 12) 0.3 (JUL 09) PTN 6.7 (JUL 27) L 6.2 (JUL 21) 6.7 (JUL 12) 7.1 (JUL 09) ALB L 3.0 (JUL 27) L 2.7 (JUL 21) L 2.8 (JUL 12) L 3.1 (JUL 09) No Radiology Results Found documented in this encounter Plan of Treatment Not on file documented as of this encounter Visit Diagnoses Not on filedocumented in this encounter
--- OUTSIDE RECORDS SUMMARY | 2025-07-29 11:56 | XMS_ITS | Encounter Summary ---
Author Organization [employer] ([place], [place], [place], [place]) Address [address] [place] [address] Care Team Providers Care Machine Engineer Name Role Phone Unavailable Primary Care Provider Unavailabl e Encounter Details Date Type Department Care Team (Late st Contact Info) Description 07/28/2019 Transcribed Document [facility] [place] [address] [place] [address] ProviderChano MD [address] [place] [address] Social History Tobacco Use Types Packs/Day Years Used Date Smoking Tobacco: Never Assessed Comments Unknown Sex and Gender Information Value Date Recorded Sex Assigned at Not on file Legal Sex Female 2:07 PM CDT Gender Identity Not on file Sexual Orientation Not on file documented as of this encounter Miscellaneous Notes * Cerner Conversion Note - Chano ProviderMD - 07/28/2019 2:58 PM CDT On Going Discharge Planning Entered On: 07/28/2019 14:58 EDT Performed On: 07/28/2019 14:58 EDT by HORACIO ACHARYA RN-Race And Sports Book WriterLode Miner Progress Note Discharge Arrangements : Patient Post-Acute Information Patient Name: LUDY ANTONIO Gender: Female : [birth year] Age: 68 Years [place] Referral(s): Service: Organization: Business Address: Phone Number: Home Care Physician Services [facility] - [address], [address], [place], [address] Barriers to Discharge Identified : Clinical Condition of Patient Barriers to Discharge Unresolved : All resolved Designation of Choice Signed : Yes Patient Offered Choice/Affiliations Explained : Yes List/Info Provided Pt/Fam/Support Person : Home health Were Referrals Sent to Post Acute Providers : Yes HORACIO ACHARYA, RN-Race And Sports Book Writer - 07/28/2019 14:58 EDT documented in this encounter Plan of Treatment Not on file documented as of this encounter Visit Diagnoses Not on filedocumented in this encounter
--- OUTSIDE RECORDS SUMMARY | 2025-07-29 11:56 | XMS_ITS | Encounter Summary ---
Author Organization [employer] ([place], [place], [place], [place]) Address [address] [place] [address] Care Team Providers Care Erection Shop Supervisor Name Role Phone Unavailable Primary Care Provider Unavailabl e Encounter Details Date Type Department Care Team (Late st Contact Info) Description 07/10/2019 Transcribed Document [facility] [place] [place] Family Medicine [address] [place] [address] ProviderChano MD [address] [place] [address] Social History Tobacco Use Types Packs/Day Years Used Date Smoking Tobacco: Never Assessed Comments Unknown Sex and Gender Information Value Date Recorded Sex Assigned at Not on file Legal Sex Female 2:07 PM CDT Gender Identity Not on file Sexual Orientation Not on file documented as of this encounter Miscellaneous Notes * Cerner Conversion Note - Historical ProviderMD - 07/10/2019 12:57 PM CDT Treatment Intervention, PT Entered On: 07/16/2019 15:39 EDT Performed On: 07/16/2019 15:32 EDT by Delon Sams, CRIS General Information, PT Visit Type, PT : Treatment Note Delon Sams, PT - 07/16/2019 15:32 EDT Patient Orders : Order Date Order Ordering 07/09/2019 15:05 Physical Therapy Eval and Treat Ordered By: CATRACHITO THOMPSON, MD ONUR 07/10/2019 12:57 PT Additional Treatment Ordered By: NANO OSBORNE, PT Active Diagnoses : 07/09/2019 12:00 Other intervertebral disc displacement, lumbar region 07/08/2019 12:00 Back pain 07/08/2019 12:00 Dorsalgia, unspecified 07/08/2019 12:00 Post surgery problem 07/08/2019 12:00 Weakness Delon Sams, PT - 07/16/2019 15:41 EDT Onset of Problem, PT : 07/11/2019 EDT Delon Sams, PT - 07/16/2019 15:32 EDT Admission Date : 07/11/2019 09:51 Personal Devices : Personal Devices Dentures, upper Assistive Devices : Assistive Devices No Devices Recorded Latrell Delon, PT - 07/16/2019 15:[address] : Fall prevention measures, Fall prevention measures, high risk Delon Sams, PT - 07/16/2019 15:32 EDT General Status Patient Received Status : Supine in bed Treatment Start Time : 07/16/2019 15:02 EDT Patient Left Status : Supine in bed, Bed alarm activated, Communication board completed, All needs met and within reach RN/PCT Informed Comment : EDISON Walters PTx Treatment End Time : 07/16/2019 15:31 EDT Treatment Time : 29 Minute(s) Delon Sams, PT - 07/16/2019 15:32 EDT Therapeutic Exercises PT Therapeutic Exercise Grid Exercise #1 Exercises : Abduction, Ankle pumps, Long arc Location : Hip Laterality : Bilateral Position : Sitting unsupported Reps : 10 Delon Sams PT - 07/16/2019 15:32 EDT Functional Mobility Mobility Grid Supine to Sit : Rehab Moderate assistance Sit to Stand : Rehab Minimal assistance Stand to Sit : Rehab Minimal assistance Delon Sams, PT - 07/16/2019 15:32 EDT Sit to Stand Device : Belt, gait, Walker, front wheel Delon Sams PT - 07/16/2019 15:32 EDT Gait Training/Assessment, PT Weight Bearing Status Maintained : Yes Weight Bearing Status : Full Gait Assistance Level : Assist, moderate Walking Distance : 50' Ambulatory Devices : Gait belt, Other: rollator Gait Deviations : Yes Left Lower Gait Deviation : Monique, increased Right Lower Gait Deviation : Monique, increased, Foot clearance, decreased Delon Sams PT - 07/16/2019 15:32 EDT Edu Topics Physical Therapy Education Grid Gait Training : Needs reinforcement Transfer Training : Needs reinforcement Use of Assistive Device : Needs reinforcement Delon Sams PT - 07/16/2019 15:32 EDT Plan of Care, PT PT Tx Plan/Goals Established w Patient : Yes PT Frequency Rehab : Daily, twice (bid) PT Duration Rehab : Fourteen days Delon Sams, PT - 07/16/2019 15:32 EDT Short Term Goals Mobility/Bed Mobility STG PT Grid Goal #1 Goal #2 Activity : Supine to sit Sit to stand Assist : Assist, minimal Assist, minimal Date to Meet : 07/17/2019 EDT 07/17/2019 EDT Goal Status : Progressing, continue Goal met Date Met : 07/16/2019 EDT Delon Sams, PT - 07/16/2019 15:32 EDT Delon Sams, PT - 07/16/2019 15:32 EDT Ambulation STG Grid Goal #1 Device : Walker, front wheel Distance : 100 Assist : Assist, minimal Date to Meet : 07/17/2019 EDT Goal Status : Goal met Date Met : 07/15/2019 EDT Comment : Delon Sams, PT - 07/16/2019 15:32 EDT [place] Goals Mobility/Bed Mobility LTG PT Grid Goal #1 Goal #2 Activity : Sit to stand Sit to stand Assist : Supervision or set-up Supervision or set-up Date to Meet : 07/24/2019 EDT 07/24/2019 EDT Goal Status : Progressing, continue Progressing, continue Delon Sams, PT - 07/16/2019 15:32 EDT Delon Sams, PT - 07/16/2019 15:32 EDT Ambulation LTG Grid Goal #1 Device : Walker, front wheel Distance : 300 Assist : Supervision or set-up Date to Meet : 07/24/2019 EDT Goal Status : Progressing, continue Delon Sams, PT - 07/16/2019 15:32 EDT Stairs LTG Grid Goal #1 Number of Steps : 2 Handrail(s) : No handrails Date to Meet : 07/24/2019 EDT Goal Status : Intial Goal Delon Sams, PT - 07/16/2019 15:32 EDT Treatment Note Subjective Comment : Pt agreed to PTx Patient's Response to Treatment : Pt tolerated tx fairly. Pt very unstable with all mobility this tx session. Delon Sams, PT - 07/16/2019 15:32 EDT Additional Objective Information : Pt insists on using rollator fo rmobility, Pt very unsafe allows rollator to get too far out in front then states you're letting it go too fast . unable to reason with Pt about using Rwx for safety purposes. Pt unable to recognize safety deficits. Pt confused throughout tx, demonstrating difficulty with expressing thoughts and understanding cues and commands. Attempted to use Rwx for transfer to [facility] Pt agreed to use but was unhappy wanting to use rollator. Pt becomes frustrated very easily when she does not understand cues or what PT was asking.Very little caryover. Delon Sams, PT - 07/16/2019 15:41 EDT Assessment : Pt would benefit from cont skilled PTx as Pt requires increased assist with gait and was unsafe with rollator requiring modA this tx session for shortened gait distance. Plan for Treatment : Cont with POC progressing as tolerated. Delon Sams, PT - 07/16/2019 15:32 EDT Pain Assessment Pain Scaled Used : 0-10 Pain scale Pain Score Pre-Intervention : 0 Delon Sams PT - 07/16/2019 15:32 EDT Image 1 - Images currently included in the form version of this document have not been included in the text rendition version of the form. Anticipated Discharge Needs, OT/PT Anticipated Discharge to : Unit, rehabilitation, Unit, half-way Recommend Continued Therapy at Discharge : Yes Delon Sams, PT - 07/16/2019 15:32 EDT [place] [facility] Charges PT Therap. Exercise 15 min : 1 Gait Training Each 15 Min : 1 Delon Sams, PT - 07/16/2019 15:32 EDT documented in this encounter Plan of Treatment Not on file documented as of this encounter Visit Diagnoses Not on filedocumented in this encounter
--- OUTSIDE RECORDS SUMMARY | 2025-07-29 11:56 | XMS_ITS | Encounter Summary ---
Author Organization [employer] ([place], [place], [place], [place]) Address [address] [place] [address] Care Team Providers Care Policy Cancellation Clerk Name Role Phone Unavailable Primary Care Provider Unavailabl e Encounter Details Date Type Department Care Team (Late st Contact Info) Description 07/10/2019 Transcribed Document [facility] [place] [facility] [place] [address] Chano Gatica MD [address], [place] [id number] Social History Tobacco Use Types Packs/Day Years Used Date Smoking Tobacco: Never Assessed Comments Unknown Sex and Gender Information Value Date Recorded Sex Assigned at Not on file Legal Sex Female 2:07 PM CDT Gender Identity Not on file Sexual Orientation Not on file documented as of this encounter Miscellaneous Notes * Cerner Conversion Note - Chano Gatica MD - 07/10/2019 1:17 PM CDT Patient: LUDY ANTONIO Age: 68 years Sex: Female : 1950 Associated Diagnoses: None Author: JACINTO OLIVA MD Subjective 68-year-old female who had recent back surgery by Dr. Lucas, who has visited on Friday. Back pain is increasingly worse despite the oxycodone, she is taking every day 10 mg. She had L3-4 back surgery about a month ago. Since then, her symptoms have been worsening, especially with increasing pain on the right side of her lower back and into the right lower extremity with increasing incontinence, but incontinence has been present before as well. she was admitted by dr. Dejesus yesterday redo back surgery saw her today in am and d/w nurse and sitter in room pat is awake but mild slow mild confused and said sleepy neurology also consulted for confusion NS also saw her today on iv abx per ID ROS: no fever, no cp or sob, no n/v/d Health Status Allergies: Allergic Reactions (Selected) Severity [...] mg, 14 mL, 128 mL/Hr, IV Piggyback, [id number] Cymbalta: 60 mg, Oral, At Bedtime DuoNeb 0.5 mg-2.5 mg/3 mL inhalation solution: 3 mL, Nebulized Inhalation, RT_Q6H, PRN: Shortness of Breath Flonase: 1 Puff, Nasal, Daily MiraLax: 17 Gram, Oral, Daily, PRN: Constipation Pepcid: 20 mg, IV Push, BID Senna S: 1 Tab, Oral, Daily Tylenol: 650 mg, Oral, Q4H, PRN: Pain (Mild 1-3) Valium: 5 mg, Oral, Q6H, PRN: Spasms Zofran: 4 mg, IV Push, Q4H, PRN: Nausea Zosyn + Sodium Chloride 0.9% intravenous solution 100 mL: 3.375 Gram, 33.33 mL/Hr, IV Piggyback, Q6HInt formoterol-mometasone 5 mcg-200 mcg/inh inhalation aerosol: 2 [...] chew) Flonase 0.05 mg/inh nasal spray: 2 Ballantine, Nasal, Daily, 16 Gram, 0 Refill(s) Lantus: [...] Bedtime Flonase 0.05 mg/inh nasal spray 2 Ballantine, Nasal, Daily Lantus 60 Units, SubCutaneous, At [...] Int Units, Oral, See Comment , Medications (19) Active Scheduled: (12) DAPTOmycin + NaCl 0.9% 50 mL 700 mg 14 mL, IV Piggyback, [id number] docusate sodium 100 mg cap 100 mg 1 Cap, Oral, BID DULoxetine DR 30 mg cap 60 mg 2 Cap, Oral, At Bedtime famotidine 20 mg/2 mL inj 20 mg 2 mL, IV Push, BID fluticasone 0.05% nasal spray 1 Puff, Nasal, Daily insulin lispro 1 unit/0.01 mL inj Scale A:, SubCutaneous, AC and at Bedtime lisinopril 20 mg tab 40 mg 2 Tab, Oral, At Bedtime loratadine 10 mg tab 10 mg 1 Tab, Oral, At Bedtime metoprolol tartrate 25 mg tab 6.25 mg 0.25 Tab, Oral, At Bedtime mometasone/formoterol 200/5 mcg inh 2 Puff, Inhalation, BID piperacillin-tazobactam + NaCl 0.9% 100 mL 3.375 Gram, IV Piggyback, Q6HInt senna/docusate 8.6/50 mg tab 1 Tab, Oral, Daily Continuous: (0) PRN: (7) acetaminophen 325 mg tab 650 mg 2 Tab, Oral, Q4H albuterol-ipratropium inh 3 mL 3 mL, Nebulized Inhalation, RT_Q6H diazepam 5 mg tab 5 mg 1 Tab, Oral, Q6H morphine 2 mg/1 ml inj 2 mg 1 mL, IV Push, Q2H ondansetron 4 mg/2 mL inj 4 mg 2 mL, IV Push, Q4H oxyCODONE 5 mg tab 10 mg 2 Tab, Oral, Q6H polyethylene glycol 3350 pwd 17 g pkt 17 Gram 1 Packet, Oral, Daily Problem list: Medical Wears glasses / SNOMED CT 824774617 / Confirmed Sleep apnea///risk / SNOMED CT 729992936 / Confirmed Colon polyps / SNOMED CT 372543630 / Confirmed Right leg pain / SNOMED CT 4006612767 / Confirmed Obesity / SNOMED CT 5976236600 / Confirmed Numbness and tingling//right leg / SNOMED CT 6651002432 / Confirmed Memory deficit///slow recall / SNOMED CT 3869067385 / Confirmed H/O ischemic left MCA stroke / SNOMED CT 9779665211 / Confirmed Hiatal hernia / SNOMED CT 848273602 / Complaint of Fibromyalgia / SNOMED CT 381488195 / Confirmed Lumbar disc disease / SNOMED CT 4516286917 / Confirmed Completely occulded L carotid / SNOMED CT 9911503475 / Confirmed Chest pain///cath negative / SNOMED CT 59171534 / Confirmed Cataract///beginning stage / SNOMED CT 260961054 / Confirmed Back pain / SNOMED CT 5610480168 / Confirmed At risk for sleep apnea / IMO 66785329 / Confirmed Pain//chronic / SNOMED CT 428962652 / Confirmed, Active Problems (24) Acid reflux [...] Last Charted Minimum Maximum Temp 97.8 (JUL 10 10:07) 97.8 (JUL 10 10:07) H 100.7 (JUL 10 01:26) Apical HR 98 (OCT 04 21:37) 98 (JUL 04 21:37) 98 (JUL 04 21:37) Mon HR 80 (JUL 05 10:07) 66 (OCT 04 20:48) 89 (JUL 05 01:26) Resp Rate 16 (JUL 05 10:07) 14 (OCT 04 16:25) H 48 (OCT 04 15:25) SBP 137 (OCT 05 10:07) 115 (OCT 04 18:24) H 195 (OCT 04 15:30) DBP L 56 (OCT 05 10:07) L 51 (OCT 04 18:24) H 93 (OCT 04 15:30) MAP 91 (OCT 05 10:07) 66 (OCT 04 18:24) 133 (OCT 04 15:30) SpO2 96 (JUL 10 06:23) L 87 (JUL 09 16:05) 100 (JUL 09 15:15) General: Mild distress. Eye: Pupils are equal, round and reactive to light, Normal conjunctiva. Neck: Supple, Non-tender, No jugular venous distention. Respiratory: Breath sounds are equal, Symmetrical chest wall expansion, No chest wall tenderness. Cardiovascular: Normal rate, No murmur, No gallop. Gastrointestinal: Soft, Non-tender, Normal bowel sounds. Musculoskeletal: No tenderness, No deformity. Integumentary: Warm, Intact, No pallor. Neurologic: No focal deficits. Psychiatric: Cooperative, slow and confusion, Not appropriate mood & affect. Results Review Lab and test: Labs (Last four charted values) WBC 7.9 (JUL 09) 9.1 (JUL 08) HB 12.6 (JUL 09) 12.0 (JUL 08) HCT 39.8 (JUL 09) 37.3 (JUL 08) Plt 267 (JUL 09) 268 (JUL 08) Na 142 (JUL 09) 141 (JUL 08) K 4.4 (JUL 09) 3.9 (JUL 08) Cl 106 (JUL 09) 105 (JUL 08) CO2 27 (JUL 09) 30 (JUL 08) BUN 19 (JUL 09) 20 (JUL 08) Cr H 1.10 (JUL 09) 1.00 (JUL 08) Glu R H 207 (JUL 09) H 153 (JUL 08) Ca 9.4 (JUL 09) 9.7 (JUL 08) PT [...] (JUL 08) Radiology Results (Last 48 hours) [id number] -- 07/08/2019 21:23 CT Spine Lumbar WO (07/08/2019 19:56) Result: CT LUMBAR SPINEHISTORY: Worsening weakness..TECHNIQUE: Thin-section noncontrast axial CT with sagittalreconstructions. This study was performed with techniques to keepradiation doses as low as reasonably achievable, (ALARA). Individualizeddose reduction techniques using automated exposure control or adjustmentof mA and/or kV according to the patient size were employed.COMPARISON: None.FINDINGS: There is normal alignment and curvature. There are nofractures. Disc spaces are well preserved. Prominent anteriorosteophytes are seen in the lower thoracic and upper lumbar spine. Thereare no significant posterior osteophytesL1-L2: No disc abnormality.L2-L3: No disc abnormality.L3-L4: There is bone loss involving the right inferior articular facet.This may represent postoperative change if the patient has a history ofhemilaminectomy. If there is no surgical history, MR may be helpful forfurther evaluation. This may be related to a synovial cyst. There ismild impingement of the right posterolateral aspect of the thecal sac.L4-L5: No disc abnormality.L5-S1: No disc abnormality.IMPRESSION: No acute osseous abnormality. Abnormality involving theright facet joint at L3-4. If there is no surgical history, MR isrecommended for further evaluation. There may be a synovial cystimpinging on the thecal sac. CR Fluoro in OR (07/09/2019 15:23) Result: [...] above final transcribed report. Diagnosis / problem Worsening back pain, s/p redo back surgery Redo right L3-4 minimally invasive surgery microdiscectomy. acute encephalopathy - ongoing - likley multiple factors ( s/p surgery, pain meds, h/o CVA) History of diabetes, hypertension, h/o cerebrovascular accident anxiety UTI on admit Plan: 1. see above medication list for treatment. 2. insulin ss 3. f/u culture 4. on cubi and zosyn 5. ID consult f/u 6. pain control 7. Bp control 8. d/w pat and nurse and neurology consult pending 9. CT of head today 10. d/w her on phone documented in this encounter Plan of Treatment Not on file documented as of this encounter Visit Diagnoses Not on filedocumented in this encounter
--- OUTSIDE RECORDS SUMMARY | 2025-07-29 11:56 | XMS_ITS | Encounter Summary ---
Author Organization [employer] ([place], [place], [place], [place]) Address [address] [place] [address] Care Team Providers Care Physician Assistant Primary Care Name Role Phone Unavailable Primary Care Provider Unavailabl e Encounter Details Date Type Department Care Team (Late st Contact Info) Description 07/10/2019 Transcribed Document [facility] [place] [address] [place] [address] ProviderChano MD [address], [place] [id number] Social History Tobacco Use Types Packs/Day Years Used Date Smoking Tobacco: Never Assessed Comments Unknown Sex and Gender Information Value Date Recorded Sex Assigned at Not on file Legal Sex Female 2:07 PM CDT Gender Identity Not on file Sexual Orientation Not on file documented as of this encounter Miscellaneous Notes * Cerner Conversion Note - Chano ProviderMD - 07/10/2019 10:24 AM CDT Treatment Intervention, OT Entered On: 07/26/2019 12:32 EDT Performed On: 07/26/2019 10:03 EDT by MEME SWAIN COTA General Information, OT Visit Type, OT : Treatment Note Patient Orders : Order Date Order Ordering 07/09/2019 15:06 Occupational Therapy Evaluation and Treatme Ordered By: CATRACHITO THOMPSON, MD NOUR 07/10/2019 10:24 OT Additional Treatment Ordered By: Active Diagnoses : 07/09/2019 12:00 Other intervertebral disc displacement, lumbar region 07/08/2019 12:00 Back pain 07/08/2019 12:00 Dorsalgia, unspecified 07/08/2019 12:00 Post surgery problem 07/08/2019 12:00 Weakness Admission Date : 07/11/2019 09:51 Co-treated by, OT : Physical Therapist Personal Devices : Personal Devices Dentures, upper Assistive Devices : Assistive Devices No Devices Recorded Precautions in Place : Fall prevention measures, Fall prevention measures, high risk MEME SWAIN COTA - 07/26/2019 12:25 EDT General Status Patient Received Status : Up in chair Treatment Start Time : 07/26/2019 9:54 EDT Patient Left Status : Up in chair, RN/PCT informed, All needs met and within reach Treatment End Time : 07/26/2019 10:03 EDT Treatment Time : 9 Minute(s) MEME SWAIN COTA - 07/26/2019 12:25 EDT Plan of Care, OT OT Tx Plan/Goals Established w Patient : Yes BRYNN VESNA VALENTINE - 07/26/2019 12:25 EDT Forge Press Operator Goals, OT Toileting LTG Grid Goal #1 Activity : Toileting Assist : Independent, complete Date to Meet : 07/24/2019 EDT Goal Status : Initial goal MEME SWAIN COTA - 07/26/2019 12:25 EDT Toilet Transfer LTG Grid Goal #1 Activity : Toilet Transfer, Stand Pivot Sit Assist : Assist, moderate Equipment : Raised Toilet Seat, With Handles, Rolling walker Date to Meet : 07/24/2019 EDT Goal Status : Goal met Date Met : 07/26/2019 EDT MEME SWAIN COTA - 07/26/2019 12:25 EDT Bed Mobility/ Bed Transfer LTG Grid Goal #1 Goal #2 Goal #3 Goal #4 Activity : Bed Mobility/Bed Transfer Bed Mobility, Supine to Sit Bed Mobility, Sit to Stand Bed Mobility, Sit to Supine Assist : Assist, moderate Assist, moderate Assist, moderate Assist, moderate Equipment : Rolling walker Date to Meet : 07/24/2019 EDT 07/24/2019 EDT 07/24/2019 EDT 07/24/2019 EDT Goal Status : Progressing, continue Progressing, continue Progressing, continue Progressing, continue MEME SWAIN COTA - 07/26/2019 12:25 EDT MEME SWAIN COTA - 07/26/2019 12:25 EDT MEME SWAIN COTA - 07/26/2019 12:25 EDT MEME SWAIN COTA - 07/26/2019 12:25 EDT Other LTG Grid Goal #1 Goal : Goals to be adjusted if needed once pt seen in function for better assessment by therapis Date to Meet : 07/24/2019 EDT Goal Status : Initial goal MEME SWAIN MALAGON - 07/26/2019 12:25 EDT Treatment Note Subjective Comment : EDISON Singleton okd session Patient's Response to Treatment : Client igor fair. Requires encouragement Additional Objective Information : Client was up in recliner. Igor some AROm to BUEs. Then client decided she wanted to eat and drink her coffee. Stated we would return. Session ended. Assessment : met transfer goal Plan for Treatment : continue with POC MEME SWAINVESNA - 07/26/2019 12:25 EDT Pain Assessment Pain Scaled Used : 0-10 Pain scale Pain Goal, Rehab OT : 0 Pain Score Pre-Intervention : 0 BRYNNMEMEVESNA - 07/26/2019 12:25 EDT Image 1 - Images currently included in the form version of this document have not been included in the text rendition version of the form. Anticipated Discharge Needs, OT/PT Anticipated Discharge to : Unit, rehabilitation MEME SWAINVESNA - 07/26/2019 12:[address] [facility] OT Charges OT Selfcare/Hm Mgmt Ea 15 Min : 1 MEME SWAINVESNA - 07/26/2019 12:25 EDT documented in this encounter Plan of Treatment Not on file documented as of this encounter Visit Diagnoses Not on filedocumented in this encounter
--- OUTSIDE RECORDS SUMMARY | 2025-07-29 11:56 | XMS_ITS | Encounter Summary ---
Author Organization [employer] ([place], [place], [place], [place]) Address [address] [place] [address] Care Team Providers Care Factory Machine Computer Operator Name Role Phone Unavailable Primary Care Provider Unavailabl e Encounter Details Date Type Department Care Team (Late st Contact Info) Description 07/10/2019 Transcribed Document [facility] [place] [address] [place] [address] ProviderChano MD [address] [place], [place] [id number] Social History Tobacco Use Types Packs/Day Years Used Date Smoking Tobacco: Never Assessed Comments Unknown Sex and Gender Information Value Date Recorded Sex Assigned at Not on file Legal Sex Female 2:07 PM CDT Gender Identity Not on file Sexual Orientation Not on file documented as of this encounter Miscellaneous Notes * Cerner Conversion Note - Chano Gatica MD - 07/10/2019 3:15 PM CDT Discharge Instructions Entered On: 07/10/2019 15:16 EDT Performed On: 07/10/2019 15:15 EDT by GIRMA GONZALEZ MD-NEU DC Instructions HWD Driving After Discharge : Do not drive, Other: No driving or operating heavy machinery until released by a physician. GIRMA GONZALEZ MD-NEU - 07/10/2019 15:15 EDT documented in this encounter Plan of Treatment Not on file documented as of this encounter Visit Diagnoses Not on filedocumented in this encounter
--- OUTSIDE RECORDS SUMMARY | 2025-07-29 11:56 | XMS_ITS | Encounter Summary ---
Author Organization [employer] ([place], [place], [place], [place]) Address [address] [place] [address] Care Team Providers Care Molder Closed Molds Name Role Phone Unavailable Primary Care Provider Unavailabl e Encounter Details Date Type Department Care Team (Late st Contact Info) Description 07/11/2019 Transcribed Document [facility] [place] [address] [place] [address] ProviderChano MD [address] [place], [place] [phone] Social History Tobacco Use Types Packs/Day Years Used Date Smoking Tobacco: Never Assessed Comments Unknown Sex and Gender Information Value Date Recorded Sex Assigned at Not on file Legal Sex Female 2:07 PM CDT Gender Identity Not on file Sexual Orientation Not on file documented as of this encounter Miscellaneous Notes * Cerner Conversion Note - Chano ProviderMD - 07/11/2019 9:56 AM CDT UM Authorization Entered On: 07/11/2019 9:57 EDT Performed On: 07/11/2019 9:56 EDT by Mary Jackson Rn-Utilization Review Primary Insurance Authorization Authorization and Policy Numbers : Insurance 1 Health Plan: [employer] Policy Number: [id number] Authorization Number: [id number] Insurance Primary Name : [email or web address] [id number] Authorization Status-Primary : Awaiting callback Authorization Fax Number-Primary : [phone] Auth/Referral Phone Number-Primary : [phone] Auth/Referral Contact Name-Primary : Saulo Hanks Reference Number-Primary : [id number] Authorized Service Begin Date-Primary : 07/08/2019 EDT Observation Authorization Nbr-Primary : [id number] Authorization Comments-Primary : pending ref# per availity. clinical faxed per [employer]ner for ip auth Historical Authorization Comments-Primary : Comment 1: per IPAS patient meets ip criteria. obtained ip order submitted on [facility] for ip auth (Mary Jackson, Rn-Utilization Review 07/11/2019 09:43) Comment 2: submitted for and obtained opo approval from [facility] opo auth# [id number] (ROSEY SANTILLAN, Glazing Department Supervisor 07/09/2019 12:59) Mary Jackson Rn-Utilization Review - 07/11/2019 9:56 EDT documented in this encounter Plan of Treatment Not on file documented as of this encounter Visit Diagnoses Not on filedocumented in this encounter
--- OUTSIDE RECORDS SUMMARY | 2025-07-29 11:56 | XMS_ITS | Encounter Summary ---
Author Organization [employer] ([place], [place], [place], [place]) Address [address] [place] [address] Care Team Providers Care Battery Charger Tester Name Role Phone Unavailable Primary Care Provider Unavailabl e Encounter Details Date Type Department Care Team (Late st Contact Info) Description 07/10/2019 Transcribed Document [facility] [place] [address] [place] [address] ProviderChano MD [address], [place] [phone] Social History Tobacco Use Types Packs/Day Years Used Date Smoking Tobacco: Never Assessed Comments Unknown Sex and Gender Information Value Date Recorded Sex Assigned at Not on file Legal Sex Female 2:07 PM CDT Gender Identity Not on file Sexual Orientation Not on file documented as of this encounter Miscellaneous Notes * Cerner Conversion Note - Chano Gatica MD - 07/10/2019 8:25 AM CDT Patient: LUDY ANTONIO Age: 68 years Sex: Female : 1950 Associated Diagnoses: None Author: CATRACHITO THOMPSON, MD ONUR confused overnight pain is better s/p redo discectomy yesterday (no intraop findings c/w discitis, cultures were taken) Vitals Signs (last 24 hrs) Last Charted Minimum Maximum Temp 97.6 (JUL 10 06:23) 97.6 (JUL 10 06:23) H 100.7 (JUL 10 01:26) Apical HR 98 (JUL 09 21:37) 98 (JUL 09 21:37) 98 (JUL 09 21:37) Mon HR 86 (JUL 10 06:23) 66 (JUL 09 20:48) 89 (JUL 10 01:26) Periph HR 100 (JUL 09 13:15) 95 (JUL 09 13:02) 100 (JUL 09 13:15) Resp Rate 18 (JUL 10 06:23) 14 (JUL 09 16:25) H 48 (JUL 09 15:25) SBP H 163 (JUL 10 06:23) 115 (JUL 09 18:24) H 205 (JUL 09 13:15) DBP 68 (JUL 10 06:23) L 51 (JUL 09 18:24) H 93 (JUL 09 15:30) MAP 89 (JUL 10 06:23) 66 (JUL 09 18:24) 133 (JUL 09 15:30) SpO2 96 (JUL 10 06:23) L 87 (JUL 09 16:05) 100 (JUL 09 15:15) cbc/ bmp wnl cultures negative awake sitting up in bed confused will follow exams incision is clean and dry POD#1 redo discectomy broad spectrum abx per ID: cultures negative thus far confusion not otherwise explained: will get ct, rec neurology consult to assist in care, labs wnl back and leg pain are better, will continue to follow documented in this encounter Plan of Treatment Not on file documented as of this encounter Visit Diagnoses Not on filedocumented in this encounter
--- OUTSIDE RECORDS SUMMARY | 2025-07-29 11:56 | XMS_ITS | Encounter Summary ---
Author Organization [employer] ([place], [place], [place], [place]) Address [address] [place] [address] Care Team Providers Care Real Estate Marketing Coordinator Name Role Phone Unavailable Primary Care Provider Unavailabl e Encounter Details Date Type Department Care Team (Late st Contact Info) Description 07/27/2019 Transcribed Document [facility] [place] [address] [place] [address] ProviderChano MD [address], [place] [phone] Social History Tobacco Use Types Packs/Day Years Used Date Smoking Tobacco: Never Assessed Comments Unknown Sex and Gender Information Value Date Recorded Sex Assigned at Not on file Legal Sex Female 2:07 PM CDT Gender Identity Not on file Sexual Orientation Not on file documented as of this encounter Miscellaneous Notes * Cerner Conversion Note - Chano Gatica MD - 07/27/2019 11:00 AM CDT Patient: LUDY ANTONIO Age: 68 [...] epithelial cells. Urine culture was positive for [id number] CFU/mL. CT of the L-spine was negative. [...] or confusion. ROS and hx discussed with [id number], has had ceofusion and fever last 2 [...] avaialble Family notes she is no better 07/22 - NoHx avaialble Family notes increasing confusion no fever or rash 07/23 - No Hx available 07/26 - co increasing back pain co overall weakness no fever chills rash back drainage 07/27 - co back pain Hx limited CURRAN discussed with staff Allergies:Allergies (1) Active Reaction Avandia CHF Medications:Medications [...] Inj, AC and at Bedtime, Routine Neuro gabapentin - 300 mg, Oral, Cap, QPM, Routine Psych DULoxetine (Cymbalta) - 60 mg, Oral, Cap, At Bedtime, Routine QUEtiapine (SEROquel) - 6.25 mg, Oral, Tab, BID, Routine haloperidol (Haldol) - 2 mg, IV Push, Inj, Q8H, PRN for Agitation, Routine HEENT fluticasone nasal (Flonase) - 1 Puff, Nasal, [place], Daily, Routine miconazole topical (Desenex AF 2% [...] Last Charted Minimum Maximum Temp 97.5 (JUL 27 06:32) 97.5 (JUL 27 06:32) 98.2 (JUL 26 14:58) Apical HR 68 (JUL 27 09:12) 60 (JUL 26 22:33) 68 (JUL 27 09:12) Mon HR 68 (JUL 27 09:15) 60 (JUL 26 22:30) 82 (JUL 26 14:58) Resp Rate 16 (JUL 27 09:15) 15 (JUL 26 14:58) 18 (JUL 27 06:32) SBP 128 (JUL 27 09:15) 106 (JUL 27 06:32) 138 (JUL 26 22:30) DBP L 55 (JUL 27 09:15) L 49 (JUL 26 21:15) H 107 (JUL 26 14:58) MAP 83 (JUL 27 09:15) 68 (JUL 27 06:32) 113 (JUL 26 14:58) SpO2 95 (JUL 26 18:00) L 93 (JUL 26 14:58) 95 (JUL 26 18:00) Exam: Gen NAD lethargic early this am HEENT: OK NECK: LYMPH: RESP: Nonlabored breathing CV: RRR, no murmurs, gallops, or rubs. No edema GI: soft, nontender, nondistended, : No garcia in place MS: no rash SKIN: No lesions NEURO: walking, gait grossly normal. back incision looks OK no redness or induration PSYCH : interactive 07/27 - Walking in room with PT confused no rash Labs:Labs (Last four charted values) WBC 8.8 (JUL 27) 7.2 (OCT 17) 8.4 (OCT 16) 7.2 (OCT 13) HB 11.9 (JUL 27) 11.7 (OCT 17) 11.6 (OCT 16) 11.3 (OCT 13) HCT 38.1 (OCT 22) 40.4 (OCT 17) 37.0 (OCT 16) 35.4 (OCT 13) Plt 311 (JUL 27) 241 (OCT 17) 273 (JUL 16) 277 (JUL 13) Na 138 (JUL 27) 137 (OCT 17) 141 (OCT 16) 143 (OCT 13) K 4.9 (JUL 27) 4.2 (OCT 17) 3.7 (OCT 16) 4.1 (JUL 13) Cl 105 (JUL 27) 107 (OCT 17) 107 (OCT 16) 106 (JUL 13) CO2 26 (OCT 22) 24 (OCT 17) 29 (OCT 16) 30 (OCT 13) BUN H 29 (JUL 27) H 24 (JUL 17) H 27 (JUL 16) H 23 (OCT 13) Cr H 1.20 (JUL 22) H 1.06 (OCT 17) 1.00 (OCT 16) 1.00 (OCT 13) Glu R H 207 (JUL 27) H 172 (OCT 17) H 134 (OCT 16) H 213 (JUL 13) Ca 9.5 (JUL 27) 9.0 (OCT 17) 9.1 (OCT 16) 9.4 (OCT 13) PT 9.9 (JUL 04) 10.1 (JUL 03) INR 0.9 (JUL 04) 0.9 (OCT 03) PTT 28.0 (JUL 03) AST 20 (JUL 27) 15 (OCT 16) 18 (JUL 07) 16 (OCT 04) ALT 24 (JUL 22) 24 (OCT 16) 25 (OCT 07) 23 (OCT 04) ALK P 56 (JUL 27) 56 (OCT 16) 56 (OCT 07) 69 (OCT 04) T Bili L 0.1 (JUL 27) 0.3 (OCT 16) 0.3 (OCT 07) 0.3 (JUL 09) PTN 6.7 (JUL 27) L 6.2 (JUL 21) 6.7 (JUL 12) 7.1 (JUL 09) ALB L 3.0 (JUL 27) L 2.7 (JUL 21) L 2.8 (JUL 12) L 3.1 (JUL 09) Micro: Rad:No Radiology Results Found IMPRESSION: - Lumbar surgery 04/05/19 - Increasing back pain - elevated back pain - new - 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
--- OUTSIDE RECORDS SUMMARY | 2025-07-29 11:56 | XMS_ITS | Encounter Summary ---
Author Organization [employer] ([place], [place], [place], [place]) Address [address] [place] [address] Care Team Providers Care City Controller Name Role Phone Unavailable Primary Care Provider Unavailabl e Encounter Details Date Type Department Care Team (Late st Contact Info) Description 07/28/2019 Transcribed Document [facility] [place] Family Medicine [address] [place] [address] Chano Gatica MD [address], [place] [id number] Social History Tobacco Use Types Packs/Day Years Used Date Smoking Tobacco: Never Assessed Comments Unknown Sex and Gender Information Value Date Recorded Sex Assigned at Not on file Legal Sex Female 2:07 PM CDT Gender Identity Not on file Sexual Orientation Not on file documented as of this encounter Miscellaneous Notes * [employer] Conversion Note - Chano Gatica MD - 07/28/2019 10:40 AM CDT Patient Education Materials Follows: Microdiskectomy, Care After Refer to this sheet in the next few weeks. These instructions provide you with information about caring for yourself after your procedure. Your health care provider may also give you more specific instructions. Your treatment has been planned according to current medical practices, but problems sometimes occur. Call your health care provider if you have any problems or questions after your procedure. What can I expect after the procedure? After the procedure, it is common to have: ??? Pain and stiffness in your back. ??? Pain and redness around your surgical cut (incision). Follow these instructions at home: Medicines ??? Take rpbn-yuf-fgpuyni and prescription medicines only as told by your health care provider. ??? Do not drive or operate heavy machinery while taking prescription pain medicine. ??? If you were prescribed an antibiotic medicine, take it as told by your health care provider. Do not stop taking the antibiotic even if you start to feel better. Incision care ??? Follow instructions from your health care provider about how to take care of your incision. Make sure you: ? Wash your hands with soap and water before you change your bandage (dressing). If soap and water are not available, use hand feed and farm management adviser. ? Change your dressing as told by your health care provider. ? Leave stitches (sutures), skin glue, or adhesive strips in place. These skin closures may need to be in place for 2 weeks or longer. If adhesive strip edges start to loosen and curl up, you may trim the loose edges. Do not remove adhesive strips completely unless your health care provider tells you to do that. ??? Keep your incision clean and dry. Do not take baths, swim, or use a hot tub until your health care provider approves. ??? If directed, apply ice to the injured area: ? Put ice in a plastic bag. ? Place a towel between your skin and the bag. ? Leave the ice on for 20 minutes, 2?3 times per day. ??? Check your incision and the surrounding area every day for redness, swelling, and leaking fluid. Physical Activity ??? Return to your normal activities as told by your health care provider. Ask your health care provider what activities are safe for you. Rest and protect your back as much as possible. ??? Do not lift anything that is heavier than 8 lb (3.6 kg) or the weight limit that your health care provider tells you until he or she says that it is safe. Avoid lifting anything over your head. ??? Avoid twisting and bending at the waist until your health care provider approves. ??? Avoid pushing and pulling motions. ??? Avoid sitting or lying down in the same position for long periods of time. ??? Ask your health care provider what kinds of exercise you can do to make your back stronger. Do not begin exercising until told by your health care provider. General instructions ??? Do not use tobacco products, including cigarettes, chewing tobacco, or e-cigarettes. If you need help quitting, ask your health care provider. ??? Wear compression stockings as told by your health care provider. These stockings help to prevent blood clots and reduce swelling in your legs. ??? Keep all follow-up visits as told by your health care provider and, if necessary, your physical therapist. This is important. Contact a health care provider if: ??? You have pain that gets worse or does not get better with medicine. ??? Your legs or your feet become painful or swollen. ??? You have redness, swelling, or pain at the site of your incision. ??? You have fluid, blood, or pus coming from your incision. ??? You vomit or feel nauseous. ??? You have difficulty controlling urination or bowel movements. ??? You have a fever. Get help right away if: ??? You have severe pain. ??? You have trouble breathing. ??? You develop a cough. ??? You have chest pain. These symptoms may represent a serious problem [...] with your health care provider. Document Released: 01/07/2012 Document Revised: 02/27/2017 Document Reviewed: 03/06/2016 [employer] Interactive Patient Education ? 2019 [employer] Microdiskectomy Microdiskectomy is a procedure to remove a herniated disk. Disks are oval-shaped layers of connective tissue (cartilage) in between the bones in the spinal column (vertebrae). Disks prevent vertebrae from rubbing together. A disk can tear and bulge outward (herniate). This puts pressure on nerves that are near the spine. The goal of this procedure is to treat pain, weakness, and numbness in the lower body that are caused by a herniated disk. Tell a health care provider about: ??? Any allergies you have. ??? All medicines you are taking, including vitamins, herbs, eye drops, creams, and sjws-lzt-oaexuns medicines. ??? Any problems you or family members have had with anesthetic medicines. ??? Any blood disorders you have. ??? Any surgeries you have had. ??? Any medical conditions you have. ??? Whether you are or may be . ??? Any recent symptoms of colds or infections. What are the risks? Generally, this is a safe procedure. However, problems may occur, including: ??? Infection. ??? Bleeding. ??? Allergic reactions to medicines or dyes. ??? Damage to other structures or organs, such as nerves near the spine. ??? Spinal fluid leakage. ??? Blood clots. ??? Return (recurrence) of the herniated disk. What happens before the procedure? Ask your health care provider about: ? Changing or stopping your regular medicines. This is especially important if you are taking diabetes medicines or blood thinners. ? Taking medicines such as aspirin and ibuprofen. These medicines can thin your blood. Do not take these medicines before your procedure if your health care provider instructs you not to. ??? Your health care provider will do a physical exam. ??? You will have blood and urine samples taken. ??? You may also have tests, such as: ? X-rays. ? MRI. ? CT scan. ? Myelogram. ? Electrocardiogram (ECG). ??? Ask your health care provider how your surgical site will be marked or identified. ??? You may be given antibiotic medicine to help prevent infection. ??? Follow instructions from your health care provider about eating or drinking restrictions. ??? Plan to have someone take you home after the procedure. ??? If you go home right after the procedure, plan to have someone with you for 24 hours. What happens during the procedure? An IV tube will be inserted into one of your veins. ??? You will be given one or more of the following: ? A medicine to help you relax (sedative). ? A medicine to make you fall asleep (general anesthetic). ? A medicine that is injected into your spine to numb the area below and slightly above the injection site (spinal anesthetic). ??? To reduce your risk of infection: ? Your health care team will wash or sanitize their hands. ? Your skin will be washed with soap. ??? A small surgical cut (incision) will be made in your back, above your herniated disk. ??? Your back muscles will be moved aside so the surgeon can see your vertebrae. ??? A small piece of bone may be removed so the surgeon can see your herniated disk. ??? The surgeon will use a microscope to look at the disk and the nerves that are near it. ??? The surgeon will remove the part of your disk that is causing problems. ??? Your back muscles will be moved back into place. ??? Your incision may be closed with stitches (sutures) or skin glue. ??? A bandage (dressing) will be put over your incision. The procedure may vary among health care providers and hospitals. What happens after the procedure? You will be given pain medicines as needed. ??? You may continue to receive fluids and medicines through an IV. ??? Your blood pressure, heart rate, breathing rate, and blood oxygen level will be monitored often until the medicines you were given have worn off. ??? You may have to wear compression stockings. These stockings help prevent blood clots and reduce swelling in your legs. This information is not intended to replace advice given to you by your health care provider. Make sure you discuss any questions you have with your health care provider. Document Released: 09/10/2010 Document Revised: 02/27/2017 Document Reviewed: 03/06/2016 [employer] Interactive Patient Education ? 2019 [employer] Electronically signed by Julian Wheeler Conversion Claims Service Representative [employer] at 01/23/2023 1:22 PM CDT documented in this encounter Plan of Treatment Not on file documented as of this encounter Visit Diagnoses Not on filedocumented in this encounter
--- OUTSIDE RECORDS SUMMARY | 2025-07-29 11:56 | XMS_ITS | Encounter Summary ---
Author Organization [email or web address] ([place], [place], [place], [place]) Address [address] [place] [address] Care Team Providers Care Dependency Case Manager Name Role Phone Unavailable Primary Care Provider Unavailabl e Encounter Details Date Type Department Care Team (Late st Contact Info) Description 07/09/2019 Transcribed Document [facility] [place] Family Medicine [address] [place] [address] ProviderChano MD [address], [place] [id number] Social History Tobacco Use Types Packs/Day Years Used Date Smoking Tobacco: Never Assessed Comments Unknown Sex and Gender Information Value Date Recorded Sex Assigned at Not on file Legal Sex Female 2:07 PM CDT Gender Identity Not on file Sexual Orientation Not on file documented as of this encounter Miscellaneous Notes * [employer]ner Conversion Note - Chano ProviderMD - 07/09/2019 2:02 PM CDT [facility] PACU Summary Primary Physician: CATRACHITO THOMPSON, MD ONUR Finalized Date/Time: 07/09/19 17:27:56 Pt. Name: LUDY ANTONIO/Sex: 1950 Female Med Rec #: [id number] Physician: TOM MORSE MD-INT Financial #: [id number] Pt. Type: O Room/Bed: [facility] Admit/Disch: 07/08/19 21:23:00 - Institution: [facility] PACU I Case Times Entry 1 In PACU I 07/09/19 15:15:00 Ready for PACU 07/09/19 16:37:00 Discharge Discharge from PACU 07/09/19 16:37:00 I Last Modified By: EDGARD COLLADO RN 07/09/19 17:27:46 Finalized By: EDGARD COLLADO, RN Document Signatures Signed By: EDGARD COLLADO RN 07/09/19 17:27 Electronically signed by [facility] Conversion Hearing Care Practitioner Cerner at 01/23/2023 1:25 PM CDT documented in this encounter Plan of Treatment Not on file documented as of this encounter Visit Diagnoses Not on filedocumented in this encounter
--- OUTSIDE RECORDS SUMMARY | 2025-07-29 11:56 | XMS_ITS | Encounter Summary ---
Author Organization [employer] ([place], [place], [place], [place]) Address [address] [place] [address] Care Team Providers Care Forest And Conservation Worker Name Role Phone Unavailable Primary Care Provider Unavailabl e Encounter Details Date Type Department Care Team (Late st Contact Info) Description 07/09/2019 Transcribed Document [facility] [place] Family Medicine [address] [place] [address] ProviderChano MD [address], [place] [id number] Social History Tobacco Use Types Packs/Day Years Used Date Smoking Tobacco: Never Assessed Comments Unknown Sex and Gender Information Value Date Recorded Sex Assigned at Not on file Legal Sex Female 2:07 PM CDT Gender Identity Not on file Sexual Orientation Not on file documented as of this encounter Miscellaneous Notes * [employer] Conversion Note - Historical ProviderMD - 07/09/2019 12:49 PM CDT PAT Adult Entered On: 07/09/2019 12:50 EDT Performed On: 07/09/2019 12:49 EDT by Miriam Boudreaux RN Height and Weight, Clinical Dosing Height Source : Stated Height Entry Format : [place] Height, Feet : 5 ft(Converted to: 152 cm, 60 Inch) Height, Inches : 4 Inch(Converted to: 0 ft 4 Inch, 10.16 cm) Clinical Height : 162.56 cm Weight Source : Standing scale Weight Entry Format : [place] Clinical Dosing Weight : 113.64 kg Weight, Pounds : 250 lb Body Surface Area (BSA) : 2.15 m2 Body Mass Index : 43 kg/m2 (>HHI) [place] Body Weight : 54 kg Miriam Boudreaux RN - 07/09/2019 12:49 EDT Health Histories Smoking Status : Former smoker, quit more than 30 days ago Smokeless Tobacco Status : Never Miriam Boudreaux RN - 07/09/2019 12:49 EDT Social History (As Of: 07/09/2019 12:50:17 EDT) Tobacco: Use in Last 12 Months: [...] TRINIDAD, ED Nurse) Employment/School: Retired, Previous employment/school: [employer] ADVIS[employer]. (Last Updated: 07/17/2014 00:15:13 EDT by KATIE TRINIDAD, ED Nurse) Infectious Disease History Infectious Disease History : Chicken pox/Shingles, Measles, Mumps Fever/Chills Last 48 Hours : Yes Experiencing Infectious Disease Symptoms : Vomiting Travel To Regions with Travel Advisories : No Travel Outside [place] Within Last 30 Days : No Contact With Traveler to Advisory Region : No Tuberculosis Symptoms : None Miriam Boudreaux RN - 07/09/2019 12:49 EDT Anesthesia/Transfusion History Family History of Anesthesia Reaction : No prior transfusion(s) Blood Transfusion Acceptable to Patient : Yes Transfusion History : Prior anesthesia without reaction Family History of Anesthesia Reaction : None Miriam Boudreaux RN - 07/09/2019 12:49 EDT Advance Directive Patient has Advance Directive *Q : No, patient refuses Advance Directive information Miriam Boudreaux RN - 07/09/2019 12:49 EDT Psychosocial History Do You Have a History of the Following? : Patient denies history Currently in Unsafe Situation : No Tried to Harm Yourself in the Past? : No Thoughts of Harming/Killing Yourself : No Miriam Boudreaux RN - 07/09/2019 12:49 EDT General Info Preferred Name : Adrienne Arrived From : Home Mode of Arrival on Unit : Ambulatory Legal Guardian : Responsible adult Legal Guardian : No Support Person/Patient Clamp Operator : No Support Person/Pt Rep Name : kian Savage - spouse Alma Rosa Zepeda [phone] Support Person/Pt Rep Contact Information : [phone] Want Family/Rep/Phys Notified of Admit : No Emergency Contact #1 : Kian Savage Emergency Contact #1 Emergency Contact #1 Relationship : spouse Emergency Contact #2 : Alma Rosa Zepeda Emergency Contact #2 Emergency Contact #2 Relationship : dgt Chief Complaint : pt had back surgery (L3-L4) apx 1 month ago, nausea but no vomiting, back pain 07/15. took 10mg oxycodone at 1330 today. Information Obtained From : Patient Primary Language : Bermudian Preferred Communication Mode : Verbal Communication Barrier : None Miriam Boudreaux RN - 07/09/2019 12:49 EDT Yonathan Scale Yonathan Sensory Perception : Slightly limited Yonathan Moisture : Occasionally moist Yonathan Activity : Walks occasionally Yonathan Mobility : Very limited Yonathan Nutrition : Adequate Yonathan Friction and Shear : Potential problem Yonathan Score : 16 Miriam Boudreaux RN - 07/09/2019 12:49 EDT Sleep Apnea Risk Assmt Hx of Obstructive Sleep Apnea Diagnosis : No Snore Loudly : Yes Tired, Fatigued, or Sleepy During Day : Yes Observed Stopping Breathing During Sleep : Yes Have/Are Being Treated for Hypertension : Yes BMI Greater Than 35 kg/m2 : Yes Age over 50 Years Old : Yes Neck Circumference Greater Than 40 cm : Yes Gender Male : No STOP-BANG Sleep Apnea Risk Level Score : 7 Miriam Boudreaux RN - 07/09/2019 12:49 EDT documented in this encounter Plan of Treatment Not on file documented as of this encounter Visit Diagnoses Not on filedocumented in this encounter
--- OUTSIDE RECORDS SUMMARY | 2025-07-29 11:56 | XMS_ITS | Encounter Summary ---
Author Organization [employer] ([place], [place], [place], [place]) Address [address] [place] [address] Care Team Providers Care Betting Agency Counter Clerk Name Role Phone Unavailable Primary Care Provider Unavailabl e Encounter Details Date Type Department Care Team (Late st Contact Info) Description 10/05/2019 Transcribed Document [facility] [place] [facility] [place] [address] ProviderChano MD [address], [place] [id number] Social History Tobacco Use Types Packs/Day Years Used Date Smoking Tobacco: Never Assessed Comments Unknown Sex and Gender Information Value Date Recorded Sex Assigned at Not on file Legal Sex Female 2:07 PM CDT Gender Identity Not on file Sexual Orientation Not on file documented as of this encounter Miscellaneous Notes * Cerner Conversion Note - Chano ProviderMD - 10/05/2019 6:38 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 History source: Patient, significant other. Arrival mode: Private vehicle. History limitation: None. Additional information: Chief Complaint from Nursing Triage Note : Chief Complaint 10/05/2019 18:05 EST Chief Complaint pt arrives very anxious, c/o chest pain and soa. seen at [facility] yesterday for the same s/sx. reports that pt is not allergic to aspirin it just hurts her stomach . History of Present Illness Patient presents to the ER with complaints of increased chest discomfort, smothering. Patient is very anxious and restless. is at the bedside. He states that she got her flu shot last week and ever since then she has not been feeling well. He states that she has had body aches and chills. Last night she started having some chest pain and shortness of breath and was taken to [facility]. Labs and x-rays were done and reported as normal. Patient has been complaining of abdominal pain and has been followed by Dr. Porter. She has a CT scheduled for Friday. The patient is very anxious and restless. Medical records from [place] obtained and noted. Review of Systems Constitutional symptoms: Fever, chills. Skin symptoms: Negative except as documented in HPI. Eye symptoms: Negative except as documented in HPI. ENMT symptoms: Negative except as documented in HPI. Respiratory symptoms: Shortness of breath. Cardiovascular symptoms: Chest pain, acute, intermittent, diaphoresis. Gastrointestinal symptoms: Moderate, diffuse, chronic abdominal pain, nausea, No vomiting, Musculoskeletal symptoms: Back pain. Neurologic symptoms: Negative except as documented in HPI. Psychiatric symptoms: Anxiety. Endocrine symptoms: Hyperglycemia. Hematologic/Lymphatic symptoms: Bruising tendency. Health Status Allergies: Allergic Reactions (Selected) Severity Not Documented Aspirin- No reactions were documented. Avandia- Chf. Fenofibrate- No reactions were documented. MetFORMIN- No reactions were documented. NSAIDs- No reactions were documented. Statins- Fenofibrate and fenofibrate.. Medications: (Selected) Inpatient Medications Ordered Ativan: 0.5 mg, IV Push, 1-Time Normal Saline Flush: 10 mL, IV Push, 1-Time Prescriptions Prescribed Lidoderm 5% topical film: 2 [...] chew) Flonase 0.05 mg/inh nasal spray: 2 [place], Nasal, Daily, 16 Gram, 0 Refill(s) Lantus [...] and left shoulder repair. achilles repair. Appendectomy ([id number]). Cholecystectomy ([id number]). Tonsillectomy ([id number])., Reviewed as documented in chart. Family history: No family history items have been selected or recorded., Reviewed as documented in chart. 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 Measurements 10/05/2019 18:05 EST Height Source Stated Height Entry Format [place] Height/Length, GERMAN (ft) 5 ft Height/Length GER[place] 7 Inch CLINICALHEIGHT 170.18 cm [place] Body Weight 61.16 kg Weight Source, ED Critical estimated dosing weight Weight Entry Format [place] Weight [place] lb 250 lb CLINICALWEIGHT 113.64 kg Body Surface Area (BSA) 2.23 m2 Body Mass Index 39.2 kg/m2 HI . Oxygen Saturation 10/05/2019 18:11 EST Oxygen Saturation 98 % . General: Alert, no acute distress. Skin: Warm, pink, intact. Cardiovascular: Regular rate and rhythm, No murmur, Normal peripheral perfusion. Respiratory: Breath sounds are equal, Symmetrical chest wall expansion, Respirations: Regular, no respiratory distress, Breath sounds: Bilateral, diminished. Gastrointestinal: Soft, Non distended. Back: Normal range of motion, Normal alignment, no step-offs. Musculoskeletal: Normal strength. Neurological: Alert and oriented to person, place, time, and situation, No focal neurological deficit observed, CN II-XII intact, normal sensory observed, normal motor observed, normal speech observed, normal coordination observed. Psychiatric: Cooperative. Medical Decision Making Differential Diagnosis: Myocardial infarction, unstable angina, angina, anxiety, pulmonary embolism, atypical chest pain, aortic dissection, pneumonia, pleurisy, chest wall pain, dyspnea, congestive heart failure. Differential Diagnosis: Anxiety, depression. Rationale: As directed in transition of care from Carmelina Negrete APRN, disposition pending CTA of chest. No acute abnormalities on CTA of chest, specifically no evidence for pulmonary embolism. Patient's repeat lactic within normal limits.Patient is afebrile, nontoxic appearing, vital signs stable and able to maintain O2 sats of 98% on room air. Patient will be discharged home with outpatient follow up to their primary care provider and gastroenterology as scheduled. Patient and family are agreeable to plan of care of outpatient follow up, provided clear return precautions and demonstrated understanding. . Orders Include Previous Orders (Selected) Inpatient Orders Ordered Carafate: 1 Gram, Oral, 1-Time Cardiac Monitoring: Cardiac Monitoring: ED Adult Fall Risk Assessment: ED C-SSRS: ED instrument checker: EKG: Normal Saline Bolus: 500 mL, 500 mL/Hr, IV Piggyback, 1-Time Normal Saline Flush: 10 mL, IV Push, 1-Time Pulse Oximetry Continuous Monitoring: Saline Lock Insert: Vital Signs: magnesium hydroxide 8% oral suspension: 30 mL, Oral, 1-Time simethicone: 80 mg, Oral, 1-Time Ordered (Dispatched) Lactic Acid Level: Ordered (Exam Completed) CTA Chest PE Protocol: Cancelled (Canceled) CR Chest 1 Vw Portable: CT Head WO: MY Digital Screen BILAT: MY Digital Screen BILAT: MY Digital Screen BILAT: NM Gastric Empty Study: Cancelled (Exam Replaced) CTA Chest: Completed .Automated Differential: .Urinalysis Microscopic: Amylase Level: Ativan: 0.5 mg, IV Push, 1-Time CBC w/ Auto Diff: CMP Comprehensive Metabolic Panel: CR Chest PA & Lat: ED Adult Triage: ED Clinical Reconciliation: Lactic Acid Level with Reflex if Indicated: Lipase Level: ProBNP: Troponin I Ultra: Urinalysis w Microscopic: iopamidol: 100 mL, IV Push, ADHOC . Results review: All Results 10/05/2019 22:22 EST Pain Assessment-Text 10/05/2019 20:42 EST ED Nursing Record Suicide Risk Screen-Text 10/05/2019 20:40 EST CTA Chest PE Protocol REPORT 10/05/2019 19:44 EST Provider Notification-Text 10/05/2019 18:44 EST CR Chest 2 Vws REPORT 10/05/2019 18:38 EST ED Physician Notes Chest pain, Anxiety 10/05/2019 18:11 EST Vital Measurements-Text 10/05/2019 18:10 EST Consent Forms Consent Forms 10/05/2019 18:05 EST ED Nursing Record 10/05/2019 22:27 EST D-Readmission Risk Yes D-BOOST Polypharmacy Yes 10/05/2019 22:27 EST Systolic Blood Pressure 182 mmHg HI Diastolic Blood Pressure 72 mmHg Mean Arterial Pressure (MAP)-BMDI 104 Heart Rate Monitored 90 bpm Respiratory Rate 18 Breaths/Min Oxygen Saturation 97 % Oxygen Therapy Mode Room air 10/05/2019 22:26 EST LORazepam 1 mg mg 10/05/2019 22:22 EST Pain Assessment Follow-up assessment Pain Scale Used FACES Pain Intensity 8 Pain Location Other: buttocks 10/05/2019 22:19 EST Lactic Acid Level 1.9 mmol/L 10/05/2019 21:52 EST Pain Intensity 10 morphine 4 mg mg ondansetron 4 mg mg sodium chloride 10 mL mL Sodium Chloride 0.9% 500 mL mL 10/05/2019 21:33 EST Nurse Collect Order Detail 3.00 10/05/2019 21:33 EST Nurse Collect Order Detail 3.00 10/05/2019 21:29 EST Nurse Collect Order Detail 3.00 10/05/2019 21:29 EST Nurse Collect Order Detail 3.00 10/05/2019 21:00 EST magnesium hydroxide 30 mL mL simethicone 80 mg mg sucralfate 1 Gram Gram 10/05/2019 20:42 EST Oxygen Therapy Mode Room air Pain Assessment Initial assessment Pain Scale Used 0-10 Scale Pain Intensity 7 Pain Location Back EENT Assessment WDL WDL Level of Consciousness Alert, Awake Orientation Oriented x 4 Affect/Behavior Anxious Cardiovascular Assessment WDL WD with exceptions Cardiovascular Symptoms Chest discomfort at rest Nail Bed Color [place] Respiratory Assessment WDL WDL Respiratory Pattern Description Regular Cough None All Lobes Breath Sounds Clear Gastrointestinal Assessment WDL WDL Genitourinary Assessment WDL WDL with exceptions Genitourinary Symptoms Burning with urination Musculoskeletal Assessment WD WD Integumentary Assessment WD WD Skin Temperature Warm Skin Temperature Warm ABCs Fall Injury Risk Identification None JAMA Hx Falls Immediate/Within 3 Months No Jama Secondary Diagnosis Yes JAMA Ambulatory Aid Crutches/Cane/Walker Jama IV Therapy or IV Access Yes Jama Gait/Transferring Weak JAMA Mental Status Overestimates/Forgets limitations Jama Fall Risk Score 75 Jama Fall Scale Risk Level 46 or > High Risk [place] Fall Interventions Adequate lighting, Assistive devices within reach, Bed in low position, Call device within reach CSSRS Past Month Wish to be No CSSRS Past Month Suicidal Thoughts No CSSRS Lifetime Suicide Behavior No Suicide Severity Rating Score 0 Suicide Severity Rating No Additional Care Required at this time Communication Barrier None Radial Pulse, Left 2+ normal Radial Pulse, Right 2+ normal Posterior Tibial Pulse, Left 2+ normal Posterior Tibial Pulse, Right 2+ normal Primary Language [place] Information Obtained From Patient, Significant other Smoking Status Former smoker, quit more than 30 days ago Smokeless Tobacco Status Never Any Spiritual/Cultural Needs or Requests No Currently in Unsafe Situation No Chest Pain Yes 10/05/2019 20:38 EST iopamidol 100 mL mL 10/05/2019 20:20 EST Systolic Blood Pressure 156 mmHg HI Diastolic Blood Pressure 70 mmHg Temperature Source Oral Temperature Mode Fahrenheit Temperature, Fahrenheit 98.1 Deg F Peripheral Pulse Rate 81 bpm Respiratory Rate 20 Breaths/Min Oxygen Saturation 96 % Oxygen Therapy Mode Room air 10/05/2019 19:44 EST Provider Notified Time 10/05/2019 19:44 Provider Notified Name CARMELINA NEGRETE APRN Provider Not Notified Reason Provider already reviewed abnormal results Provider Notified of Concerns/Results Critical value result Critical Result Details Lactic Acid 2.8 Critical Result Call Received From Jb in lab Critical Result Read Back and Verified Yes 10/05/2019 19:42 EST Estimated Creatinine Clearance 39.16 mL/Min 10/05/2019 19:42 EST LORazepam 0.5 mg mg 10/05/2019 18:45 EST Urine Type U CleanCatch Urine Color Yellow Urine Appearance Clear Urine Specific [place] 1.021 Urine pH Dipstick 8.0 Urine Leukocyte Esterase Negative Urine Nitrite Negative Urine Protein Dipstick Negative Urine Glucose Dipstick Negative Urine Ketones Dipstick Negative Urine Urobilinogen Dipstick 0.2 EU/dL Urine Bilirubin Dipstick Negative Urine Blood Dipstick Negative Ur Squamous Epithelial Cells 2-5 /HPF 10/05/2019 18:44 EST ProBNP 165 pg/mL HI 10/05/2019 18:36 EST Amylase Level 43 Units/Liter Lipase Level 100 Units/Liter Lactic Acid Level 2.8 mmol/L CRIT 10/05/2019 18:26 EST Sodium Level 140 mmol/L Potassium Level 4.6 mmol/L Chloride Level 109 mmol/L Carbon Dioxide Level 25 mmol/L Anion Gap 11 Glucose Level 172 mg/dL HI Blood Urea Nitrogen 30 mg/dL HI Creatinine Level 1.30 mg/dL HI eGFR 49 mL/min/1.73m2 LOW eGFR NonAfrican 40 mL/min/1.73m2 LOW Bun/Creatinine 23.1 HI Calcium Level 9.3 mg/dL Protein Total 7.6 Gram/dL Albumin Level 3.3 Gram/dL LOW Globulin 4.3 Gram/dL A/G Ratio 0.8 LOW Bilirubin Total 0.2 mg/dL Alk Phos 73 Units/Liter AST 21 Units/Liter ALT 27 Units/Liter Troponin I Ultra <0.015 ng/mL WBC 8.7 K/uL RBC 4.59 Million/uL Hgb 12.9 g/dL Hct 39.5 % MCV 86.1 fL MCH 28.1 pg MCHC 32.7 Gram/dL Platelet Count 319 K/uL MPV 9.2 fL LOW RDW 13.8 % Neut % 64.4 % Neut # 5.62 K/uL Lymph % 27.3 % Lymph # 2.38 x10(3)/uL [place] % 6.1 % [place] # 0.53 K/uL Eos % 0.9 % Eos # 0.08 x10(3)/uL Baso % 0.7 % Baso # 0.06 x10(3)/uL Slide Review No IG# 0.05 x10(3)/uL IG% 0.60 % 10/05/2019 18:11 EST Systolic Blood Pressure 160 mmHg HI Diastolic Blood Pressure 70 mmHg Temperature Source Oral Temperature Mode Fahrenheit Temperature, Fahrenheit 98.0 Deg F Clinical Temperature, C 36.7 Deg C Peripheral Pulse Rate 76 bpm Respiratory Rate 18 Breaths/Min Oxygen Saturation 98 % Oxygen Therapy Mode Room air 10/05/2019 18:10 EST Estimated Creatinine Clearance 42.42 mL/Min 10/05/2019 18:05 EST Height Source Stated Height Entry Format [place] Height/Length, GERMAN (ft) 5 ft Height/Length [place] 7 Inch CLINICALHEIGHT 170.18 cm [place] Body Weight 61.16 kg Weight Source, ED Critical estimated dosing weight Weight Entry Format [place] Weight [place] lb 250 lb CLINICALWEIGHT 113.64 kg Body Surface Area (BSA) 2.23 m2 Body Mass Index 39.2 kg/m2 HI Tuberculosis Symptoms None Infectious Disease History Chicken pox/Shingles, Measles, Mumps Fever/Chills Last 48 Hours No Travel To [place] with Travel Advisories No Travel Outside [place] Within Last 30 Days No Contact With Traveler to [facility] No Chief Complaint pt arrives very anxious, c/o chest pain and soa. seen at [facility] yesterday for the same s/sx. reports that pt is not allergic to aspirin it just hurts her stomach Transported to ED by Ambulance[facility] To Room Via Stretcher Tracking Acuity 3 - Urgent Master Police Detective Needed No Accompanied by Significant other Mode of Arrival Stretcher Treatments Prior to Arrival Other: 18 G right wrist, aspirin 81mg then pt reports, I am allergic . Tetanus Immunization Less than 5 years 10/05/2019 18:04 EST Nurse Collect Order Detail 3.00 Nurse Collect Order Detail 3.00 . Radiology results: Radiology Results (Last 48 hours) [id number] -- 10/05/2019 18:04 CR Chest 2 Vws (10/05/2019 18:44) Result: 2 view chestINDICATION: Chest painFINDINGS:The lungs are clear. The mediastinum and cardiac silhouette areunremarkable.IMPRESSION: No acute disease CTA Chest PE Protocol (10/05/2019 20:40) Result: CT pulmonary angiogramINDICATION: Shortness of breath, elevated d-dimerTECHNIQUE: Following the administration of intravenous contrasthelically acquired axial multidetector CT images were obtained from theapices to the upper abdomen. Additional thin section, MIP, andmultiplanar reconstructions were performed. Dose reduction techniqueswere employed.FINDINGS:The central airways are patent.No suspicious pulmonary nodules or masses are identified.There is no mediastinal adenopathy. The heart and pericardium areunremarkable.Limited evaluation of the upper abdomen demonstrates no acuteabnormality. CT pulmonary angiogram: There is adequate opacification of the pulmonaryarteries to the subsegmental level. No filling defects are identified.IMPRESSION: No acute intrathoracic abnormality, specifically there is noevidence of pulmonary embolism. . Impression and Plan Diagnosis Depression - Discharge, Medical Anxiety - Discharge, Medical Esophageal spasm - Discharge, Medical Plan Condition: Improved, Stable. Disposition: Medically cleared, Discharged Admit/Transfer/Discharge: Discharge (Order): Start: 10/05/2019 22:47 EST, Discharge to: Home , Patient care transitioned to: Time: 10/05/2019 20:48:00MALLORIE JASON C, PA. Patient was given the following educational materials: Social Anxiety Disorder, Adult, Panic Attack, Esophageal Spasm, Nonspecific Chest Pain. Follow up with: QUIRINO SENIOR Within 2 to 3 days Call for follow up appointment Follow-up as instructed Return if condition worsens; BRENDON PORTER Within 2 to 3 days Keep appointment has been made Follow-up as instructed Return if condition worsens . Counseled: Patient, Family, Regarding diagnosis, Regarding diagnostic results, Regarding treatment plan, Patient indicated understanding of instructions. Notes: I certify that the Physician High School Chemistry Teacher performed the services as delegated. I agree with the assessment, treatment plan and disposition of the patient as recorded by the Physician High School Chemistry Teacher, Dr. Perales. documented in this encounter Plan of Treatment Not on file documented as of this encounter Visit Diagnoses Not on filedocumented in this encounter
--- OUTSIDE RECORDS SUMMARY | 2025-07-29 11:56 | XMS_ITS | Encounter Summary ---
Author Organization [employer] ([place], [place], [place], [place]) Address [address] [place] [address] Care Team Providers Care Director Of Epidemiology Name Role Phone Unavailable Primary Care Provider Unavailabl e Encounter Details Date Type Department Care Team (Late st Contact Info) Description 07/09/2019 Transcribed Document [facility] Family Medicine Counts include 234 beds at the [facility] [place] [address] Chano Gatica MD [address] [id number] Social History Tobacco Use Types Packs/Day Years Used Date Smoking Tobacco: Never Assessed Comments Unknown Sex and Gender Information Value Date Recorded Sex Assigned at Not on file Legal Sex Female 2:07 PM CDT Gender Identity Not on file Sexual Orientation Not on file documented as of this encounter Miscellaneous Notes * Cerner Conversion Note - Chano Gatica MD - 07/09/2019 3:39 PM CDT Patient: LUDY ANTONIO Age: 68 years Sex: Female : 1950 Associated Diagnoses: None Author: JACINTO OLIVA MD Subjective first time see patient since admit 68-year-old female who had recent back surgery [...] well. she was admitted by dr. Dejesus last night saw her today in am and d/w nurse pat is awake but mild slow due to pain meds per report, plan surgery today mild anxiety also ROS: no fever, no cp or sob, [...] of Breath Flonase: 1 Puff, Nasal, Daily HYDROmorphone: 0.5 mg, IV Push, Q10Min, PRN: Pain (Severe 7-10) Lactated Ringers Injection intravenous solution 1,000 mL: 20 mL/Hr, IntraVENous MiraLax: 17 Gram, Oral, Daily, PRN: Constipation Pepcid: 20 mg, IV Push, BID Tylenol: 650 mg, Oral, Q4H, PRN: Pain (Mild 1-3) Zofran: 4 mg, IV Push, Q4H, PRN: Nausea fentaNYL: 25 mcg, IV Push, 1-Time, PRN: Pain (Severe 7-10) fentaNYL: 25 mcg, IV Push, Q10Min, PRN: Pain (Moderate 4-6) formoterol-mometasone 5 mcg-200 mcg/inh inhalation aerosol: 2 Puff, Inhalation, BID insulin lispro sliding scale: Scale A:, SubCutaneous, AC and at Bedtime lidocaine 1% preservative-free injectable solution: 0.5 mL, IntraDermal, 1-Time lisinopril: 40 mg, Oral, At Bedtime loratadine: 10 mg, Oral, At Bedtime metoprolol tartrate: 6.25 mg, Oral, At Bedtime ondansetron: 4 mg, IV Push, 1-Time, PRN: Nausea/Vomiting oxyCODONE: 10 mg, Oral, Q6H, PRN: Pain (Moderate 4-6) Documented Medications Documented Aciphex: 20 mg, Oral, BID Advair Diskus 250 mcg-50 mcg inhalation powder: 1 Puff, Inhalation, Daily, PRN: as needed, 0 Refill(s) Centrum: 1 Tab, Oral, Daily Cymbalta 60 mg oral delayed release capsule: 1 Cap, Oral, At Bedtime, (do not crush or chew) Flonase 0.05 mg/inh nasal spray: 2 [place], Nasal, Daily, 16 Gram, 0 Refill(s) [...] Bedtime Flonase 0.05 mg/inh nasal spray 2 [place], Nasal, Daily Lantus 60 Units, SubCutaneous, [...] Int Units, Oral, See Comment , Medications (20) Active Scheduled: (10) docusate sodium 100 mg cap 100 mg 1 Cap, Oral, BID DULoxetine DR 30 mg cap 60 mg 2 Cap, Oral, At Bedtime famotidine 20 mg/2 mL inj 20 mg 2 mL, IV Push, BID fluticasone 0.05% nasal spray 1 Puff, Nasal, Daily insulin lispro 1 unit/0.01 mL inj Scale A:, SubCutaneous, AC and at Bedtime lidocaine 1% *PF* inj 2 mL 0.5 mL, IntraDermal, 1-Time lisinopril 20 mg tab 40 mg 2 Tab, Oral, At Bedtime loratadine 10 mg tab 10 mg 1 Tab, Oral, At Bedtime metoprolol tartrate 25 mg tab 6.25 mg 0.25 Tab, Oral, At Bedtime mometasone/formoterol 200/5 mcg inh 2 Puff, Inhalation, BID Continuous: (1) lactated ringers 1,000 mL 1,000 mL, IntraVENous, 20 mL/Hr PRN: (9) acetaminophen 325 mg tab 650 mg 2 Tab, Oral, Q4H albuterol-ipratropium inh 3 mL 3 mL, Nebulized Inhalation, RT_Q6H fentaNYL 100 mcg/2 mL inj 25 mcg 0.5 mL, IV Push, Q10Min fentaNYL 100 mcg/2 mL inj 25 mcg 0.5 mL, IV Push, 1-Time HYDROmorphone 1 mg/1 mL inj 0.5 mg 0.5 mL, IV Push, Q10Min ondansetron 4 mg/2 mL inj 4 mg 2 mL, IV Push, Q4H ondansetron 4 mg/2 mL inj 4 mg 2 mL, IV Push, 1-Time oxyCODONE 5 mg tab 10 mg 2 Tab, Oral, Q6H polyethylene glycol 3350 pwd 17 g pkt 17 Gram 1 Packet, Oral, Daily Problem list: Medical Wears glasses / SNOMED CT 669534589 / Confirmed Sleep apnea///risk / SNOMED CT 243365846 / Confirmed Colon polyps / SNOMED CT 640912511 / Confirmed Right leg pain / SNOMED CT 5268454347 / Confirmed Obesity / SNOMED CT 7158964936 / Confirmed Numbness and tingling//right leg / SNOMED CT 5648814247 / Confirmed Memory deficit///slow recall / SNOMED CT 2343673165 / Confirmed H/O ischemic left MCA stroke / SNOMED CT 2254519304 / Confirmed Hiatal hernia / SNOMED CT 581275545 / Complaint of Fibromyalgia / SNOMED CT 954246385 / Confirmed Lumbar disc disease / SNOMED CT 5867037201 / Confirmed Completely occulded L carotid / SNOMED CT 9397677929 / Confirmed Chest pain///cath negative / SNOMED CT 82032088 / Confirmed Cataract///beginning stage / SNOMED CT 996312706 / Confirmed Back pain / SNOMED CT 3419580961 / Confirmed At risk for sleep apnea / IMO [id number] / Confirmed Pain//chronic / SNOMED CT 706883155 / Confirmed, Active Problems (24) Acid reflux [...] Last Charted Minimum Maximum Temp 98.2 (JUL 09 15:15) 98.0 (JUL 09 01:09) 99.7 (JUL 09 13:02) Mon HR 74 (JUL 09 15:20) 73 (JUL 09 15:15) 74 (JUL 09 15:20) Periph HR 100 (JUL 09 13:15) 64 (JUL 09 04:00) 100 (JUL 09 13:15) Resp Rate 17 (JUL 09 15:20) L 12 (JUL 09 04:00) H 32 (JUL 09 15:15) SBP H 179 (JUL 09 15:20) 139 (JUL 09 04:00) H 205 (JUL 09 13:15) DBP 70 (JUL 09 15:20) L 59 (JUL 09 13:15) H 98 (JUL 09 07:08) MAP 95 (JUL 09 15:20) 95 (JUL 09 15:20) 110 (JUL 09 15:15) SpO2 100 (JUL 09 15:20) L 92 (JUL 09 01:09) 100 (JUL 09 15:15) General: Moderate distress. Eye: Pupils are equal, round and reactive to light, Normal conjunctiva. HENT: Normocephalic. Neck: Supple, Non-tender, No jugular venous distention. Respiratory: Breath sounds are equal, Symmetrical chest wall expansion, No chest wall tenderness. Cardiovascular: Normal rate, No murmur, No gallop. Gastrointestinal: Soft, Non-tender, Normal bowel sounds. Musculoskeletal: No tenderness, No deformity. Integumentary: Warm, Intact, No pallor. Neurologic: No focal deficits. Psychiatric: Cooperative, anxiety, Not appropriate mood & affect. Results Review [...] 08) CO2 27 (JUL 09) 30 (JUL 03) BUN 19 (JUL 09) 20 (JUL 03) Cr H 1.10 (JUL 09) 1.00 (JUL 08) Glu R H 207 (JUL 09) H 153 (JUL 08) Ca 9.4 (JUL 09) 9.7 (JUL 08) PT 9.9 (JUL 09) 10.1 (JUL 03) INR 0.9 (JUL 09) 0.9 (JUL 03) PTT 28.0 (JUL 08) AST 16 (JUL 09) 17 (JUL 08) ALT 23 (JUL 09) 21 (JUL 08) ALK P 69 (JUL 09) 63 (JUL 03) T Bili 0.3 (JUL 09) 0.4 (JUL 03) PTN 7.1 (JUL 09) 7.0 (JUL 03) ALB L 3.1 (JUL 09) L 3.2 (JUL 08) Radiology Results (Last 48 hours) [id number] -- 07/08/2019 21:23 CT Spine Lumbar WO [...] a synovial cystimpinging on the thecal sac. Diagnosis / problem Worsening back pain, discitis? vs infection? recently L3-4 surgery History of diabetes, hypertension, h/o cerebrovascular accident anxiety Plan: 1. see above medication list for treatment. 2. insulin ss 3. NS consult 4. keep npo 5. ID consult 6. pain control 7. Bp control 8. d/w pat and nurse documented in this encounter Plan of Treatment Not on file documented as of this encounter Visit Diagnoses Not on filedocumented in this encounter
--- OUTSIDE RECORDS SUMMARY | 2025-07-29 11:56 | XMS_ITS | Encounter Summary ---
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 Medicine [address] [place] [address] ProviderChano MD [address] [place] [address] Social History Tobacco Use Types Packs/Day Years Used Date Smoking Tobacco: Never Assessed Comments Unknown Sex and Gender Information Value Date Recorded Sex Assigned at Not on file Legal Sex Female 2:07 PM CDT Gender Identity Not on file Sexual Orientation Not on file documented as of this encounter Miscellaneous Notes * Cerner Conversion Note - Chano Gatica MD - 07/28/2019 10:41 AM CDT [facility] [address] ADRIENNE ANTONIO Ileana :1950 Visit Time:07/11/2019 Your Visit Summary Your Care Team Admitting Physician - TOM MORSE MD-INT MA, YUCHEN, MD-INT PHY, UNKNOWN HEIDI ROBISON MD-AVINASH Attending Physician - TOM MORSE MD-INT MA, YUCHEN, MD-INT WAGNER, PHILLIP L, MD-AVINASH Primary Care Physician - QUIRINO SENIOR (REF)DEISY Referring Physician - HEIDI ROBISON MD-AVINASH Your Diagnosis Back pain, Back pain Generalized weakness Intractable back pain Low back pain, Low back pain Post surgery problem Recurrent herniation of lumbar disc Discharge Vitals Temperature 36.3 ??C Heart Rate 60 Respiratory Rate 18 Blood Pressure 131/61 What to do next Instructions From Your Care Team -Keep incision clean and dry. -You may shower, but no tub bathing, swimming, or soaking wound. -No bending, twisting, squatting, or lifting greater than 10 pounds. [facility]: [facility]--[phone] Please note the following medication changes: - STOP taking the following medications: tramadol (Ultram), potassium - Doses of the following medications have CHANGED: insulin gargine (Lantus), insulin novolog, lisinopril, metoprolol Discharge Activity: Discharge Activity: Activity as tolerated Activity: Discharge Activity: Activity as tolerated Diet: Discharge Diet: Heart healthy diet Diet: Discharge Diet: Heart healthy diet Follow-Up Appointments Follow Up with ONUR WINSTON When 08/11/2019 11:00 AM EST Where: [facility] [address] [place] [address]- Business (1) Follow Up with RUPAL CEVALLOS When 08/04/2019 09:30 AM EDT Where: [address] [place] [address] [address] [place] [id number] [employer] Business (1) Medications What How Much When Instructions Next Dose diazePAM (Valium 5 mg oral tablet) 1 Tablet(s) Oral Every 6 Hours as needed for as needed for anxiety Any Time after 07/28 0829 gabapentin (gabapentin 300 mg oral capsule) 1 Capsule(s) Oral Every Evening Printed Prescription 07/28 9p lidocaine topical (Lidoderm 5% topical film) 2 Patch(es) TransDermal Every Day Printed Prescription 07/29 9a QUEtiapine (SEROquel 25 mg oral tablet) 0.25 Tablet(s) Oral Two Times A Day Printed Prescription 07/28 9p insulin aspart (insulin aspart 100 units/ mL injectable solution) 8 Unit(s) SubCutaneous Three Times a Day With Meals NEW DOSE With Lunch insulin glargine (Lantus 100 units/ mL subcutaneous solution) 25 Unit(s) SubCutaneous Two Times A Day 07/28 9 lisinopril (lisinopril 20 mg oral tablet) 1 Tablet(s) Oral At Bedtime Duration: 30 Day(s) Printed Prescription 07/28 9p metoprolol (Metoprolol Tartrate 25 mg oral tablet) 0.5 Tablet(s) Oral Two Times A Day Printed Prescription 07/28 9p oxyCODONE (oxyCODONE 10 mg oral tablet) 1 Tablet(s) Oral Every 6 Hours as needed for Pain (Moderate 4-6) Printed Prescription 07/28 1201 cholecalciferol (Vitamin D3) 50,000 International Units Oral See Comment friday and friday DULoxetine (Cymbalta 60 mg oral delayed release capsule) 1 Capsule(s) Oral At Bedtime (do not crush or chew) 07/28 9 fluticasone nasal (Flonase 0.05 mg/ inh nasal spray) 2 [place](s) Nasal Every Day 07/29 9a fluticasone-salmeterol (Advair Diskus 250 mcg-50 mcg inhalation powder) 1 Puff(s) Inhalation Every Day as needed for as needed As Needed loratadine (loratadine 10 mg oral tablet) 1 Tablet(s) Oral At Bedtime 07/28 multivitamin with minerals (Centrum) 1 Tablet(s) Oral Every Day 07/29 9a rabeprazole (Aciphex) 20 Milligram(s) Oral Two Times A Day 07/28 9 Take your medications faithfully. Do NOT skip [...] This Visit No Immunizations Found Education Materials Microdiskectomy, Care After Refer to this sheet [...] these instructions at home: Medicines ??? Take jnkb-qon-ivakiuy and prescription medicines only as told by [...] and water are not available, use hand mop handle assembler. ? Change your dressing as told by [...] 20 minutes, 2???3 times per day. ??? Check your incision [...] 01/07/2012 Document Revised: 02/27/2017 Document Reviewed: 03/06/2016 [employer] Patient Education ?? 2019 [employer] Microdiskectomy Microdiskectomy is a procedure to [...] including vitamins, herbs, eye drops, creams, and zozq-dbk-uqgjkdv medicines. ??? Any problems you or family [...] 09/10/2010 Document Revised: 02/27/2017 Document Reviewed: 03/06/2016 [employer] Patient Education ?? 2019 [employer]. gabapentin (GA ba PEN tin) Gralise, Horizant, Neurontin What is the most important information I should know about gabapentin? Some people have thoughts about suicide while taking this medicine. Children taking gabapentin may have behavior changes. Stay alert to changes in your mood or symptoms. Report any new or worsening symptoms to your doctor. Do not stop using gabapentin suddenly, even if you feel fine. What is gabapentin? Gabapentin is an anti-epileptic drug, also called an anticonvulsant. It affects chemicals and nerves in the body that are involved in the cause of seizures and some types of pain. Gabapentin is used in adults to treat nerve pain caused by herpes virus or shingles (herpes zoster). The Horizant brand of gabapentin is also used to treat restless legs syndrome (RLS). The Neurontin brand of gabapentin is also used to treat seizures in adults and children who are at least 3 years old. Use only the brand and form of gabapentin your doctor has prescribed. Check your medicine each time you get a refill to make sure you receive the correct form. Gabapentin may also be used for purposes not listed in this medication guide. What should I discuss with my healthcare provider before taking gabapentin? You should not use gabapentin if you are allergic to it. To make sure gabapentin is safe for you, tell your doctor if you have ever had: ?? kidney disease (or if you are on dialysis); ?? diabetes; ?? depression, a mood disorder, or suicidal thoughts or actions; ?? a seizure (unless you take gabapentin to treat seizures); ?? liver disease; ?? heart disease; or ?? (for patients with RLS) if you are a day sleeper or work a circulation man. Some people have thoughts about suicide while taking this medicine. Your doctor should check your progress at regular visits. Your family or other caregivers should also be alert to changes in your mood or symptoms. It is not known whether this medicine will harm an unborn baby. Tell your doctor if you are or plan to become . Seizure control is very important during , and having a seizure could harm both mother and baby. Do not start or stop taking gabapentin for seizures without your doctor's advice, and tell your doctor right away if you become . Gabapentin can pass into breast milk, but effects on the nursing baby are not known. Tell your doctor if you are breast-feeding. How should I take gabapentin? Follow all directions on your prescription label. Do not take this medicine in larger or smaller amounts or for longer than recommended. The Horizant brand of gabapentin should not be taken during the day. For best results, take Horizant with food at about 5:00 in the evening. Both Gralise and Horizant should be taken with food. Neurontin can be taken with or without food. If you break a Neurontin tablet and take only half of it, take the other half at your next dose. Any tablet that has been broken should be used as soon as possible or within a few days. Do not crush, chew, or break an extended-release tablet. Swallow it whole. Measure liquid medicine with the dosing syringe provided, or with a special dose-measuring spoon or medicine cup. If you do not have a dose-measuring device, ask your pharmacist for one. If your doctor changes your brand, strength, or type of gabapentin, your dosage needs may change. Ask your pharmacist if you have any questions about the new kind of gabapentin you receive at the pharmacy. Do not stop using gabapentin suddenly, even if you feel fine. Stopping suddenly may cause increased seizures. Follow your doctor's instructions about tapering your dose. Wear a medical alert tag or carry an ID card stating that you have seizures. Any medical care provider who treats you should know that you take seizure medication. This medicine can cause unusual results with certain medical tests. Tell any doctor who treats you that you are using gabapentin. Store gabapentin tablets and capsules at room temperature away from light and moisture. Store the liquid medicine in the refrigerator. Do not freeze. What happens if I miss a dose? Take the missed dose as soon as you remember. Be sure to take the medicine with food. Skip the missed dose if it is almost time for your next scheduled dose. Do not take extra medicine to make up the missed dose. What happens if I overdose? Seek emergency medical attention or call the Poison Help line at . What should I avoid while taking gabapentin? This medicine may impair your thinking or reactions. Be careful if you drive or do anything that requires you to be alert. Avoid taking an antacid within 2 hours before or after you take gabapentin. Antacids can make it harder for your body to absorb gabapentin. Drinking alcohol with this medicine can cause side effects. What are the possible side effects of gabapentin? Get emergency medical help if you have signs of an allergic reaction: hives; difficult breathing; swelling of your face, lips, tongue, or throat. Seek medical treatment if you have a serious drug reaction that can affect many parts of your body. Symptoms may include: skin rash, fever, swollen glands, flu-like symptoms, muscle aches, severe weakness, unusual bruising, or yellowing of your skin or eyes. This reaction may occur several weeks after you began using gabapentin. Report any new or worsening symptoms to your doctor, such as: mood or behavior changes, anxiety, panic attacks, trouble sleeping, or if you feel impulsive, irritable, agitated, hostile, aggressive, restless, hyperactive (mentally or physically), depressed, or have thoughts about suicide or hurting yourself. Call your doctor at once if you have: ?? increased seizures; ?? severe weakness or tiredness; ?? problems with balance or muscle movement; ?? upper stomach pain; ?? chest pain, new or worsening cough with fever, trouble breathing; ?? severe tingling or numbness; ?? rapid eye movement; or ?? kidney problems--little or no urination, painful or difficult urination, swelling in your feet or ankles. Some side effects are more likely in children taking gabapentin. Contact your doctor if the child taking this medicine has any of the following side effects: ?? changes in behavior; ?? memory problems; ?? trouble concentrating; or ?? acting restless, hostile, or aggressive. Common side effects may include: ?? headache, dizziness, drowsiness, tiredness; ?? swelling in your hands or feet; ?? problems with your eyes; ?? coordination problems; or ?? (in children) fever, nausea, vomiting. This is not a complete list of side effects and others may occur. Call your doctor for medical advice about side effects. You may report side effects to FDA at 3-884-QZL-6531. What other drugs will affect gabapentin? Taking gabapentin with other drugs that make you sleepy can worsen this effect. Ask your doctor before taking a sleeping pill, narcotic medication, muscle relaxer, or medicine for anxiety, depression, or seizures. Other drugs may interact with gabapentin, including prescription and qdhd-smo-hqvtpdc medicines, vitamins, and herbal products. Tell your doctor about all your current medicines and any medicine you start or stop using. Where can I get more information? Your pharmacist can provide more information about gabapentin. Remember, keep this and all other medicines out of the reach of children, never share your medicines with others, and use this medication only for the indication prescribed. Every effort has been made to ensure that the information provided by [employer]. [employer]') is accurate, up-to-date, and complete, but no guarantee is made to that effect. Drug information contained herein may be time sensitive. [employer] information has been compiled for use by healthcare practitioners and consumers in the [place] and therefore [employer] does not warrant that uses outside of the [place] are appropriate, unless specifically indicated otherwise. [employer] drug information does not endorse drugs, diagnose patients or recommend therapy. [employer] drug information is an informational resource designed to assist licensed healthcare practitioners in caring for their patients and/or to serve consumers viewing this service as a supplement to, and not a substitute for, the expertise, skill, knowledge and judgment of healthcare practitioners. The absence of a warning for a given drug or drug combination in no way should be construed to indicate that the drug or drug combination is safe, effective or appropriate for any given patient. [employer] does not assume any responsibility for any aspect of healthcare administered with the aid of information [employer] provides. The information contained herein is not intended to cover all possible uses, directions, precautions, warnings, drug interactions, allergic reactions, or adverse effects. If you have questions about the drugs you are taking, check with your doctor, nurse or pharmacist. Copyright 7987-7348 [employer]. Version: 14.. Revision Date: 07/15/2017. oxycodone (ox i KOE done) Oxaydo, OxyCONTIN, Oxyfast, Roxicodone, Xtampza ER What is the most important information I should know about oxycodone? MISUSE OF OPIOID MEDICINE CAN CAUSE ADDICTION, OVERDOSE, OR . Keep the medication in a place where others cannot get to it. Taking opioid medicine during may cause life-threatening withdrawal symptoms in the . Fatal side effects can occur if you use opioid medicine with alcohol, or with other drugs that cause drowsiness or slow your breathing. What is oxycodone? Oxycodone is an opioid pain medication used to treat moderate to severe pain. The extended-release form of oxycodone is for qbferb-usa-sefbq treatment of pain and should not be used on an as-needed basis for pain. Oxycodone may also be used for purposes not listed in this medication guide. What should I discuss with my healthcare provider before using oxycodone? You should not use oxycodone if you are allergic to it, or if you have: ?? severe asthma or breathing problems; or ?? a blockage in your stomach or intestines. You should not use oxycodone unless you are already using a similar opioid medicine and are tolerant to it. Most brands of oxycodone are not approved for use in people under 18. OxyContin should not be given to a child younger than 11 years old. Tell your doctor if you have ever had: ?? a head injury, or seizures; ?? drug or alcohol addiction, or mental illness; ?? liver or kidney disease; ?? urination problems; or ?? problems with your gallbladder, pancreas, or thyroid. If you use opioid medicine while you are , your baby could become dependent on the drug. This can cause life-threatening withdrawal symptoms in the baby after it is born. Babies born dependent on opioids may need medical treatment for several weeks. Do not breast-feed. Oxycodone can pass into breast milk and may cause drowsiness, breathing problems, or in a nursing baby. How should I use oxycodone? Follow the directions on your prescription label and read all medication guides. Never use oxycodone in larger amounts, or for longer than prescribed. Tell your doctor if you feel an increased urge to take more of this medicine. Never share opioid medicine with another person, especially someone with a history of drug abuse or addiction. MISUSE CAN CAUSE ADDICTION, OVERDOSE, OR . Keep the medication in a place where others cannot get to it. Selling or giving away opioid medicine is against the law. Stop taking all other osjovl-oof-vppyd narcotic pain medicines when you start taking extended-release oxycodone. Take oxycodone with food. Swallow the capsule or tablet whole to avoid exposure to a potentially fatal overdose. Do not crush, chew, break, open, or dissolve. Never crush or break an oxycodone pill to inhale the powder or mix it into a liquid to inject the drug into your vein. This can cause in . Measure liquid medicine carefully. Use the dosing syringe provided, or use a medicine dose-measuring device (not a kitchen spoon). You should not stop using oxycodone suddenly. Follow your doctor's instructions about tapering your dose. Store at room temperature, away from heat, moisture, and light. Keep track of your medicine. Oxycodone is a drug of abuse and you should be aware if anyone is using your medicine improperly or without a prescription. Do not keep leftover opioid medication. Just one dose can cause in someone using this medicine accidentally or improperly. Ask your pharmacist where to locate a drug take-back disposal program. If there is no take-back program, flush the unused medicine down the toilet. What happens if I miss a dose? Since oxycodone is used for pain, you are not likely to miss a dose. Skip any missed dose if it is almost time for your next dose. Do not use two doses at one time. What happens if I overdose? Seek emergency medical attention or call the Poison Help line at . An oxycodone overdose can be fatal, especially in a child or other person using the medicine without a prescription. Overdose can cause severe muscle weakness, pinpoint pupils, very slow breathing, extreme drowsiness, or coma. What should I avoid while using oxycodone? Do not drink alcohol. Dangerous side effects or could occur. Avoid driving or operating machinery until you know how oxycodone will affect you. Dizziness or severe drowsiness can cause falls or other accidents. Avoid medication errors. Always check the brand and strength of oxycodone you get from the pharmacy. What are the possible side effects of oxycodone? Get emergency medical help if you have signs of an allergic reaction: hives; difficult breathing; swelling of your face, lips, tongue, or throat. Opioid medicine can slow or stop your breathing, and may occur. A person caring for you should seek emergency medical attention if you have slow breathing with long pauses, blue colored lips, or if you are hard to wake up. Call your doctor at once if you have: ?? noisy breathing, sighing, shallow breathing; ?? a slow heart rate or weak pulse; ?? a light-headed feeling, like you might pass out; ?? confusion, unusual thoughts or behavior; ?? seizure (convulsions); or ?? low cortisol levels-- nausea, vomiting, loss of appetite, dizziness, worsening tiredness or weakness. Seek medical attention right away if you have symptoms of serotonin syndrome, such as: agitation, confusion, fever, sweating, fast heart rate, chest pain, feeling short of breath, muscle stiffness, trouble walking, or feeling faint. Serious side effects may be more likely in older adults and those who are malnourished or debilitated. Long-term use of opioid medication may affect fertility (ability to have children) in men or women. It is not known whether opioid effects on fertility are permanent. Common side effects may include: ?? drowsiness, headache, dizziness, tiredness; or ?? constipation, stomach pain, nausea, vomiting. This is not a complete list of side effects and others may occur. Call your doctor for medical advice about side effects. You may report side effects to FDA at 1-228-FRI-0187. What other drugs will affect oxycodone? You may have breathing problems or withdrawal symptoms if you start or stop taking certain other medicines. Tell your doctor if you also use an antibiotic, antifungal medication, heart or blood pressure medication, seizure medication, or medicine to treat HIV or hepatitis C. Opioid medication can interact with many other drugs and cause dangerous side effects or . Be sure your doctor knows if you also use: ?? cold or allergy medicines, bronchodilator asthma/COPD medication, or a diuretic ('water pill'); ?? medicines for motion sickness, irritable bowel syndrome, or overactive bladder; ?? other narcotic medications--opioid pain medicine or prescription cough medicine; ?? a sedative like Valium--diazepam, alprazolam, lorazepam, Xanax, Klonopin, Versed, and others; ?? drugs that make you sleepy or slow your breathing--a sleeping pill, muscle relaxer, medicine to treat mood disorders or mental illness; or ?? drugs that affect serotonin levels in your body--a stimulant, or medicine for depression, Parkinson's disease, migraine headaches, serious infections, or nausea and vomiting. This list is not complete and many other drugs may affect oxycodone. This includes prescription and eoam-dqh-tbmwvxh medicines, vitamins, and herbal products. Not all possible drug interactions are listed here. Where can I get more information? Your pharmacist can provide more information about oxycodone. Remember, keep this and all other medicines out of the reach of children, never share your medicines with others, and use this medication only for the indication prescribed. Every effort has been made to ensure that the information provided by [employer]. [employer] is accurate, up-to-date, and complete, but no guarantee is made to that effect. Drug information contained herein may be time sensitive. [employer] information has been compiled for use by healthcare practitioners and consumers in the [place] and therefore [employer] does not warrant that uses outside of the [place] are appropriate, unless specifically indicated otherwise. [employer] drug information does not endorse drugs, diagnose patients or recommend therapy. [employer] drug information is an informational resource designed to assist licensed healthcare practitioners in caring for their patients and/or to serve consumers viewing this service as a supplement to, and not a substitute for, the expertise, skill, knowledge and judgment of healthcare practitioners. The absence of a warning for a given drug or drug combination in no way should be construed to indicate that the drug or drug combination is safe, effective or appropriate for any given patient. [employer] does not assume any responsibility for any aspect of healthcare administered with the aid of information [employer] provides. The information contained herein is not intended to cover all possible uses, directions, precautions, warnings, drug interactions, allergic reactions, or adverse effects. If you have questions about the drugs you are taking, check with your doctor, nurse or pharmacist. Copyright [id number] [employer]. Version: 13.02. Revision Date: 09/02/2018. quetiapine (rah east) Veronica, Veronica XR What is the most important information I should know about quetiapine? Some people have thoughts about suicide while taking quetiapine. Stay alert to changes in your mood or symptoms. Report any new or worsening symptoms to your doctor. Quetiapine is not approved for use in older adults with dementia-related conditions. What is quetiapine? Quetiapine is an antipsychotic medicine that is used to treat schizophrenia in adults and children who are at least 13 years old. Quetiapine is used to treat bipolar disorder (manic depression) in adults and children who are at least 10 years old. Quetiapine is also used together with antidepressant medications to treat major depressive disorder in adults. Quetiapine may also be used for purposes not listed in this medication guide. What should I discuss with my healthcare provider before taking quetiapine? You should not use quetiapine if you are allergic to it. Quetiapine may increase the risk of in older adults with dementia-related conditions and is not approved for this use. Quetiapine is not approved for use by anyone younger than 10 years old. Tell your doctor if you have ever had: ?? liver disease; ?? heart problems; ?? high or low blood pressure; ?? low white blood cell (WBC) counts; ?? abnormal thyroid tests or prolactin levels; ?? constipation or urination problems; ?? an enlarged prostate; ?? a seizure; ?? glaucoma or cataracts; ?? high cholesterol or triglycerides; ?? diabetes (in you or a family member); or ?? trouble swallowing. Some people have thoughts about suicide while taking quetiapine. Your doctor will need to check your progress at regular visits. Your family or other caregivers should also be alert to changes in your mood or symptoms. Taking antipsychotic medicine in the last 3 months of may cause withdrawal symptoms, breathing problems, feeding problems, fussiness, tremors, and limp or stiff muscles in the . If you get , tell your doctor right away. Do not stop taking quetiapine without your doctor's advice. You should not breast-feed while you are using quetiapine. How should I take quetiapine? Follow all directions on your prescription label and read all medication guides or instruction sheets. Use the medicine exactly as directed. High doses or long-term use of quetiapine can cause a serious movement disorder that may not be reversible. The longer you use quetiapine, the more likely you are to develop this disorder, especially if you are an older adult. Symptoms of this disorder include tremors or other uncontrollable muscle movements. You may take Seroquel with or without food. You should take Seroquel XR without food or with a light meal. Swallow the tablet whole and do not crush, chew, or break it. Quetiapine may cause you to have high blood sugar (hyperglycemia). If you are diabetic, check your blood sugar levels on a regular basis. Drink plenty of liquids while you are taking quetiapine. Blood pressure may need to be checked often in a child or teenager taking quetiapine. You should not stop using quetiapine suddenly. Stopping suddenly may make your condition worse. This medicine may affect a drug-screening urine test and you may have false results. Tell the laboratory staff that you use quetiapine. Store at room temperature away from moisture and heat. What happens if I miss a dose? Take the medicine as soon as you can, but skip the missed dose if it is almost time for your next dose. Do not take two doses at one time. What happens if I overdose? Seek emergency medical attention or call the Poison Help line at . An overdose of quetiapine can be fatal. What should I avoid while taking quetiapine? Avoid drinking alcohol. Dangerous side effects could occur. Avoid driving or hazardous activity until you know how this medicine will affect you. Dizziness or drowsiness can cause falls, accidents, or severe injuries. Avoid getting up too fast from a sitting or lying position, or you may feel dizzy. Avoid becoming overheated or dehydrated during exercise and in hot weather. You may be more prone to heat stroke. What are the possible side effects of quetiapine? Get emergency medical help if you have signs of an allergic reaction (hives, difficult breathing, swelling in your face or throat) or a severe skin reaction (fever, sore throat, burning eyes, skin pain, red or purple skin rash with blistering and peeling). Report any new or worsening symptoms to your doctor, such as: mood or behavior changes, anxiety, panic attacks, trouble sleeping, or if you feel impulsive, irritable, agitated, hostile, aggressive, restless, hyperactive (mentally or physically), more depressed, or have thoughts about suicide or hurting yourself. Call your doctor at once if you have: ?? twitching or uncontrollable movements of your eyes, lips, tongue, face, arms, or legs; ?? mask-like appearance of the face, trouble swallowing, problems with speech; ?? a light-headed feeling, like you might pass out; ?? severe constipation; ?? painful or difficult urination; ?? blurred vision, tunnel vision, eye pain, or seeing halos around lights; ?? severe nervous system reaction--very stiff (rigid) muscles, high fever, sweating, confusion, fast or uneven heartbeats, tremors, fainting; ?? high blood sugar--increased thirst, increased urination, dry mouth, fruity breath odor; or ?? low white blood cell counts--fever, chills, mouth sores, skin sores, sore throat, cough, trouble breathing, feeling light-headed. Common side effects may include: ?? speech problems; ?? dizziness, drowsiness, tiredness; ?? lack of energy; ?? fast heartbeats; ?? stuffy nose; ?? increased appetite, weight gain; ?? upset stomach, vomiting, constipation; ?? dry mouth; or ?? abnormal liver function tests. This is not a complete list of side effects and others may occur. Call your doctor for medical advice about side effects. You may report side effects to FDA at 7-406-TYY-8761. What other drugs will affect quetiapine? Sometimes it is not safe to use certain medications at the same time. Some drugs can affect your blood levels of other drugs you take, which may increase side effects or make the medications less effective. Quetiapine can cause a serious heart problem. Your risk may be higher if you also use certain other medicines for infections, asthma, heart problems, high blood pressure, depression, mental illness, cancer, malaria, or HIV. Many drugs can affect quetiapine. This includes prescription and qadd-nuj-ulsqtty medicines, vitamins, and herbal products. Not all possible interactions are listed here. Tell your doctor about all your current medicines and any medicine you start or stop using. Where can I get more information? Your pharmacist can provide more information about quetiapine. Remember, keep this and all other medicines out of the reach of children, never share your medicines with others, and use this medication only for the indication prescribed. Every effort has been made to ensure that the information provided by [employer]. [employer] is accurate, up-to-date, and complete, but no guarantee is made to that effect. Drug information contained herein may be time sensitive. [employer] information has been compiled for use by healthcare practitioners and consumers in the [place] and therefore [employer] does not warrant that uses outside of the [place] are appropriate, unless specifically indicated otherwise. [employer] drug information does not endorse drugs, diagnose patients or recommend therapy. [employer] drug information is an informational resource designed to assist licensed healthcare practitioners in caring for their patients and/or to serve consumers viewing this service as a supplement to, and not a substitute for, the expertise, skill, knowledge and judgment of healthcare practitioners. The absence of a warning for a given drug or drug combination in no way should be construed to indicate that the drug or drug combination is safe, effective or appropriate for any given patient. [employer] does not assume any responsibility for any aspect of healthcare administered with the aid of information [employer] provides. The information contained herein is not intended to cover all possible uses, directions, precautions, warnings, drug interactions, allergic reactions, or adverse effects. If you have questions about the drugs you are taking, check with your doctor, nurse or pharmacist. Copyright [id number] [employer]. Version: 15.. Revision Date: 12/01/2018. lidocaine topical (LYE stoner casas TOP i hal) AneCream, Bactine, Glydo, LidaMantle, Lidoderm, LidoRx, Medi-Quik [place], RadiaGuard, Regenecare CORDOVA [place], Solarcaine Aloe Extra Burn Relief What is the most important information I should know about lidocaine topical? An overdose of numbing medicine can cause fatal side effects if too much of the medicine is absorbed through your skin. Do not use large amounts of lidocaine topical, or cover treated skin areas with a bandage or plastic wrap without medical advice. Keep both used and unused lidocaine skin patches out of the reach of children or pets. The amount of lidocaine in the skin patches could be harmful to a child or pet who accidentally sucks on or swallows the patch. What is lidocaine topical? Lidocaine is a local anesthetic (numbing medication). It works by blocking nerve signals in your body. Lidocaine topical (for use on the skin) is used to reduce pain or discomfort caused by skin irritations such as sunburn, insect bites, poison magy, poison oak, poison sumac, and minor cuts, scratches, or chi. Lidocaine topical is also used to treat rectal discomfort caused by hemorrhoids. Lidocaine topical may also be used for purposes not listed in this medication guide. What should I discuss with my healthcare provider before using lidocaine topical? You should not use lidocaine topical if you are allergic to any type of numbing medicine. Fatal overdoses have occurred when numbing medicines were used without the advice of a medical doctor (such as during a cosmetic procedure like laser hair removal). However, overdose has also occurred in women treated with a numbing medicine before having a mammography. Be aware that many cosmetic procedures are performed without a medical doctor present. Tell your doctor if you have ever had: ?? liver disease; or ?? if you take a heart rhythm medicine. Lidocaine topical is not expected to harm an unborn baby. Tell your doctor if you are . If you apply lidocaine topical to your chest, avoid areas that may come into contact with the baby's mouth. How should I use lidocaine topical? Use this medicine exactly as directed on the label, or as it has been prescribed by your doctor. Do not apply this medicine in larger amounts than recommended. Improper use of lidocaine topical may result in . Lidocaine topical comes in many different forms (gel, spray, cream, lotion, ointment, liquid, skin patch). Do not take by mouth. Topical medicine is for use only on the skin. If this medicine gets in your eyes, nose, mouth, rectum, or vagina, rinse with water. Read and carefully follow any Instructions for Use provided with your medicine. Ask your doctor or pharmacist if you do not understand these instructions. Use the smallest amount of medicine needed to numb the skin or relieve pain. Your body may absorb too much of this medicine if you use too much, if you apply it over large skin areas, or if you apply heat, bandages, or plastic wrap to treated skin areas. Skin that is cut or irritated may also absorb more topical medication than healthy skin. Do not apply this medicine to swollen skin areas or deep puncture wounds. Avoid using the medicine on skin that is raw or blistered, such as a severe burn or abrasion. Do not cover treated skin unless your doctor has told you to. Lidocaine topical may be applied with your finger tips or a cotton swab. Store at room temperature away from moisture and heat. Keep both used and unused lidocaine topical skin patches out of the reach of children or pets. The amount of lidocaine in the skin patches could be harmful to a child or pet who accidentally sucks on or swallows the patch. Seek emergency medical attention if this happens. What happens if I miss a dose? Since lidocaine topical is used when needed, you may not be on a dosing schedule. Skip any missed dose if it's almost time for your next dose. Do not use two doses at one time. What happens if I overdose? Seek emergency medical attention or call the Poison Help line at . An overdose of numbing medicine can cause fatal side effects if too much of the medicine is absorbed through your skin and into your blood. Overdose symptoms may include uneven heartbeats, seizure (convulsions), slowed breathing, coma, or respiratory failure (breathing stops). Lidocaine applied to the skin is not likely to cause an overdose unless you apply more than the recommended dose. What should I avoid while using lidocaine topical? Do not allow this medicine to come into contact with your eyes. If it does, rinse with water. Avoid touching the sticky side of a lidocaine skin patch while applying it. Avoid accidentally injuring treated skin areas while they are numb. Avoid coming into contact with very hot or very cold surfaces. What are the possible side effects of lidocaine topical? Get emergency medical help if you have signs of an allergic reaction: hives; difficulty breathing; swelling of your face, lips, tongue, or throat. Call your doctor at once if you have: ?? severe burning, stinging, or irritation where the medicine was applied; ?? swelling or redness; ?? sudden dizziness or drowsiness after medicine is applied; ?? confusion, blurred vision, ringing in your ears; or ?? unusual sensations of temperature. Common side effects include: ?? mild irritation where the medication is applied; or ?? numbness in places where the medicine is accidentally applied. This is not a complete list of side effects and others may occur. Call your doctor for medical advice about side effects. You may report side effects to FDA at 5-022-TSM-4853. What other drugs will affect lidocaine topical? Medicine used on the skin is not likely to be affected by other drugs you use. But many drugs can interact with each other. Tell each of your health care providers about all medicines you use, including prescription and wvih-ppg-qzrtxoz medicines, vitamins, and herbal products. Where can I get more information? Your pharmacist has information about lidocaine topical. Remember, keep this and all other medicines out of the reach of children, never share your medicines with others, and use this medication only for the indication prescribed. Every effort has been made to ensure that the information provided by [employer] is accurate, up-to-date, and complete, but no guarantee is made to that effect. Drug information contained herein may be time sensitive. [employer] information has been compiled for use by healthcare practitioners and consumers in the [place] and therefore [employer] does not warrant that uses outside of the [place] are appropriate, unless specifically indicated otherwise. [employer] drug information does not endorse drugs, diagnose patients or recommend therapy. [employer] drug information is an informational resource designed to assist licensed healthcare practitioners in caring for their patients and/or to serve consumers viewing this service as a supplement to, and not a substitute for, the expertise, skill, knowledge and judgment of healthcare practitioners. The absence of a warning for a given drug or drug combination in no way should be construed to indicate that the drug or drug combination is safe, effective or appropriate for any given patient. [employer] does not assume any responsibility for any aspect of healthcare administered with the aid of information [employer] provides. The information contained herein is not intended to cover all possible uses, directions, precautions, warnings, drug interactions, allergic reactions, or adverse effects. If you have questions about the drugs you are taking, check with your doctor, nurse or pharmacist. Copyright [id number] [employer]. Version: 7.02. Revision Date: 08/07/2018. divalproex sodium (dye maya PRO ex) Jeromyakote AROLDO, Nildate Margarita What is the most important information I should know about divalproex sodium? Divalproex sodium can cause liver failure that may be fatal, especially in children under age 2 and in people with liver problems caused by certain genetic disorders. You should not use divalproex sodium if you have liver disease, a urea cycle disorder, or a genetic disorder such as Alpers' disease or Alpers-Huttenlocher syndrome. Follow your doctor's instructions about taking this medicine if you are . Divalproex sodium may harm an unborn baby, but having a seizure during could harm both mother and baby. The benefit of preventing seizures may outweigh any risks to the baby. Do not use divalproex sodium to prevent migraine headaches if you are . Call your doctor at once if the person taking this medicine has signs of liver or pancreas problems, such as: loss of appetite, upper stomach pain (that may spread to your back), ongoing nausea or vomiting, dark urine, swelling in the face, or jaundice (yellowing of the skin or eyes). Do not stop using divalproex sodium without your doctor's advice. Stopping suddenly may cause a serious, life-threatening type of seizure. What is divalproex sodium? Divalproex sodium affects chemicals in the body that may be involved in causing seizures. Divalproex sodium is used to treat various types of seizure disorders. Divalproex sodium is sometimes used together with other seizure medications. Divalproex sodium is also used to treat manic episodes related to bipolar disorder (manic depression), and to prevent migraine headaches. Divalproex sodium may also be used for purposes not listed in this medication guide. What should I discuss with my healthcare provider before taking divalproex sodium? You should not use divalproex sodium if you are allergic to it, or if you have: ?? liver disease; ?? a urea cycle disorder; or ?? a genetic mitochondrial (NAW-eqt-YOO-dree-al) disorder such as Alpers' disease or Alpers-Huttenlocher syndrome, especially in a child younger than 2 years old. Divalproex sodium can cause liver failure that may be fatal, especially in children under age 2 and in people with liver problems caused by a genetic mitochondrial disorder. Tell your doctor if you have ever had: ?? liver problems caused by a genetic mitochondrial disorder; ?? depression, mental illness, or suicidal thoughts or actions; ?? a family history of a urea cycle disorder or deaths with unknown cause; or ?? HIV or CMV (cytomegalovirus) infection. Some young people have thoughts about suicide when first taking divalproex sodium. Your doctor should check your progress at regular visits. Your family or other caregivers should also be alert to changes in your mood or symptoms. Do not use divalproex sodium to prevent migraine headaches if you are . If you take divalproex sodium for seizures or manic episodes: This medicine can harm an unborn baby, and may affect cognitive ability (reasoning, intelligence, problem-solving) later in the child's life. However, having a seizure during could harm both the mother and the baby. Do not start or stop taking the medicine during without your doctor's advice. Use effective control while using divalproex sodium, and tell your doctor right away if you become . Tell your doctor if you start or stop using hormonal contraception that contains estrogen ( control pills, injections, implants, skin patches, and vaginal rings). Estrogen can interact with divalproex sodium and make it less effective in preventing seizures. Seizure control is very important during . The benefit of preventing seizures may outweigh any risks posed by taking divalproex sodium. There may be other seizure medications that can be more safely used during . Follow your doctor's instructions about taking divalproex sodium while you are . It may not be safe to breast-feed while using this medicine. Ask your doctor about any risk. How should I take divalproex sodium? Follow all directions on your prescription label and read all medication guides or instruction sheets. Your doctor may occasionally change your dose. Use the medicine exactly as directed. Drink plenty of water while you are taking this medication. Your dose may need to be changed if you do not get enough fluids each day. If you cannot swallow a sprinkle capsule whole, open it and sprinkle the medicine into a spoonful of pudding or applesauce. Swallow the mixture right away. Do not save it for later use. Do not crush, chew, break, or open a delayed-release or extended-release tablet or capsule. Swallow it whole. You may need frequent blood tests. In case of emergency, wear or carry medical identification to let others know you use divalproex sodium. If you need surgery, tell the surgeon ahead of time that you are using divalproex sodium. Do not stop using divalproex sodium suddenly, even if you feel fine. Stopping suddenly may cause a serious, life-threatening type of seizure. Follow your doctor's instructions about tapering your dose. Store at room temperature away from moisture and heat. What happens if I miss a dose? Take the medicine as soon as you can, but skip the missed dose if it is almost time for your next dose. Do not take two doses at one time. What happens if I overdose? Seek emergency medical attention or call the Poison Help line at . What should I avoid while taking divalproex sodium? Drinking alcohol may increase certain side effects of divalproex sodium. Avoid driving or hazardous activity until you know how this medicine will affect you. Your reactions could be impaired. Divalproex sodium could make you sunburn more easily. Avoid sunlight or tanning beds. Wear protective clothing and use sunscreen (SPF 30 or higher) when you are outdoors. What are the possible side effects of divalproex sodium? Get emergency medical help if you have signs of an allergic reaction (hives, difficult breathing, swelling in your face or throat) or a severe skin reaction (fever, sore throat, burning eyes, skin pain, red or purple skin rash with blistering and peeling). Call your doctor at once if the person taking this medicine has signs of liver or pancreas problems, such as: loss of appetite, upper stomach pain (that may spread to your back), ongoing nausea or vomiting, dark urine, swelling in the face, or jaundice (yellowing of the skin or eyes). Report any new or worsening symptoms to your doctor, such as: mood or behavior changes, depression, anxiety, panic attacks, trouble sleeping, or if you feel impulsive, irritable, agitated, hostile, aggressive, restless, hyperactive (mentally or physically), or have thoughts about suicide or hurting yourself. Call your doctor at once if you have any of these other side effects: ?? confusion, tiredness, cold feeling, vomiting, change in your mental state; ?? easy bruising, unusual bleeding (nose, mouth, or gums), purple or red pinpoint spots under your skin; ?? severe drowsiness; ?? worsening seizures; or ?? signs of inflammation in your body--swollen glands, flu symptoms, severe tingling or numbness, muscle weakness, chest pain, new or worsening cough with fever, trouble breathing. Common side effects may include: ?? nausea, vomiting, mild stomach pain, diarrhea; ?? headache, mild dizziness, weakness, tremors; ?? problems with balance or walking; ?? blurred vision, double vision; or ?? changes in appetite, weight gain. This is not a complete list of side effects and others may occur. Call your doctor for medical advice about side effects. You may report side effects to FDA at 5-760-BQR-4232. What other drugs will affect divalproex sodium? Sometimes it is not safe to use certain medications at the same time. Some drugs can affect your blood levels of other drugs you take, which may increase side effects or make the medications less effective. Many drugs can affect divalproex sodium. This includes prescription and hsnl-xiq-oqgaurs medicines, vitamins, and herbal products. Not all possible interactions are listed here. Tell your doctor about all your current medicines and any medicine you start or stop using. Where can I get more information? Your pharmacist can provide more information about divalproex sodium. Remember, keep this and all other medicines out of the reach of children, never share your medicines with others, and use this medication only for the indication prescribed. Every effort has been made to ensure that the information provided by [employer]. ('[employer]') is accurate, up-to-date, and complete, but no guarantee is made to that effect. Drug information contained herein may be time sensitive. [employer] information has been compiled for use by healthcare practitioners and consumers in the [place] and therefore [employer] does not warrant that uses outside of the [place] are appropriate, unless specifically indicated otherwise. [employer] drug information does not endorse drugs, diagnose patients or recommend therapy. [employer] drug information is an informational resource designed to assist licensed healthcare practitioners in caring for their patients and/or to serve consumers viewing this service as a supplement to, and not a substitute for, the expertise, skill, knowledge and judgment of healthcare practitioners. The absence of a warning for a given drug or drug combination in no way should be construed to indicate that the drug or drug combination is safe, effective or appropriate for any given patient. [employer] does not assume any responsibility for any aspect of healthcare administered with the aid of information [employer] provides. The information contained herein is not intended to cover all possible uses, directions, precautions, warnings, drug interactions, allergic reactions, or adverse effects. If you have questions about the drugs you are taking, check with your doctor, nurse or pharmacist. Copyright 2435-4493 [employer]. Version: 13.01. Revision Date: 03/03/2018. metoprolol (oral/injection) (me TOE pro lol) Kapspargo Sprinkle, Lopressor, Metoprolol Succinate ER, Metoprolol Tartrate, Toprol-XL What is the most important information I should know about metoprolol? You should not use this medicine if you have a serious heart problem (heart block, sick sinus syndrome, slow heart rate), severe circulation problems, severe heart failure, or a history of slow heart beats that caused fainting. What is metoprolol? Metoprolol is a beta-royce that affects the heart and circulation (blood flow through arteries and veins). Electronically signed by Julian Wheeler Conversion Box Printing Machine Operator Cerner at 01/23/2023 1:20 PM CDT documented in this encounter Plan of Treatment Not on file documented as of this encounter Visit Diagnoses Not on filedocumented in this encounter
--- OUTSIDE RECORDS SUMMARY | 2025-07-29 11:56 | XMS_ITS | Encounter Summary ---
Author Organization [employer] ([place], [place], [place], [place]) Address [address] [place] [address] Care Team Providers Care Feed Preparation Operator Name Role Phone Unavailable Primary Care Provider Unavailabl e Encounter Details Date Type Department Care Team (Late st Contact Info) Description 07/11/2019 Transcribed Document [facility] [place] Family Medicine [address] [place] [address] ProviderChano MD [address] [place], [place] [id number] Social History Tobacco Use Types Packs/Day Years Used Date Smoking Tobacco: Never Assessed Comments Unknown Sex and Gender Information Value Date Recorded Sex Assigned at Not on file Legal Sex Female 2:07 PM CDT Gender Identity Not on file Sexual Orientation Not on file documented as of this encounter Miscellaneous Notes * Cerner Conversion Note - Historical ProviderMD - 07/11/2019 2:11 PM CDT Attempt to Treat, PT Entered On: 07/11/2019 14:12 EDT Performed On: 07/11/2019 14:11 EDT by NANO OSBORNE PT Attempt to Treat Unable to Treat Due To : Patient Unavailable Inability to Treat Comment : Hold per RN Cadence), pt. currently asleep/resting after being severely agitated. Reattempt in AM. NANO OSBORNE PT - 07/11/2019 14:11 EDT documented in this encounter Plan of Treatment Not on file documented as of this encounter Visit Diagnoses Not on filedocumented in this encounter
--- OUTSIDE RECORDS SUMMARY | 2025-07-29 11:56 | XMS_ITS | Encounter Summary ---
Author Organization [employer] ([place], [place], [place], [place]) Address [address] [place] [address] Care Team Providers Care Investigative Research Specialist Name Role Phone Unavailable Primary Care Provider Unavailabl e Encounter Details Date Type Department Care Team (Late st Contact Info) Description 07/26/2019 Transcribed Document [facility] Radiology [address] [place] [address] Abby Reid MD [address] [place] [address] [place] [address] Social History Tobacco Use Types Packs/Day Years Used Date Smoking Tobacco: Never Assessed Comments Unknown Sex and Gender Information Value Date Recorded Sex Assigned at Not on file Legal Sex Female 2:07 PM CDT Gender Identity Not on file Sexual Orientation Not on file documented as of this encounter Miscellaneous Notes * Cerner Conversion Note - Abby Reid MD - 07/26/2019 11:48 AM EDT Patient: LUDY ANTONIO Age: 68 [...] seroquel also added and did help her Today: pt awake, sitting up, refused by [facility] facility, no fam around this am Bg>[id number] Health Status Allergies: Allergic Reactions (Selected) Severity [...] chew) Flonase 0.05 mg/inh nasal spray: 2 [place], Nasal, Daily, 16 Gram, 0 Refill(s) Lantus [...] Bedtime Flonase 0.05 mg/inh nasal spray 2 [place], Nasal, Daily gabapentin 300 mg oral capsule [...] Problem list: Medical Pain//chronic / SNOMED CT 289358740 / Confirmed At risk for sleep apnea / IMO [id number] / Confirmed Back pain / SNOMED CT 8844599683 / Confirmed Cataract///beginning stage / SNOMED CT 810659149 / Confirmed Chest pain///cath negative / SNOMED CT 40025720 / Confirmed Completely occulded L carotid / SNOMED CT 0808255201 / Confirmed Lumbar disc disease / SNOMED CT 6272827387 / Confirmed Fibromyalgia / SNOMED CT 069666371 / Confirmed Hiatal hernia / SNOMED CT 065979170 / Complaint of H/O ischemic left MCA stroke / SNOMED CT 3402320613 / Confirmed Memory deficit///slow recall / SNOMED CT 7692113792 / Confirmed Numbness and tingling//right leg / SNOMED CT 3385772998 / Confirmed Obesity / SNOMED CT 6234178721 / Confirmed Right leg pain / SNOMED CT 5203063093 / Confirmed Colon polyps / SNOMED CT 524182118 / Confirmed Sleep apnea///risk / SNOMED CT 789268035 / Confirmed Wears glasses / SNOMED CT 255512325 / Confirmed, Active Problems (24) Acid reflux [...] Last Charted Minimum Maximum Temp 98 (JUL 26 06:01) 97.5 (JUL 25 11:24) 98 (JUL 25 18:16) Apical HR 62 (JUL 26 08:18) 62 (JUL 26 08:18) 75 (JUL 25 20:13) Mon HR 64 (JUL 26 06:01) 64 (JUL 25 18:16) 73 (JUL 25 11:24) Resp Rate 18 (JUL 26 06:01) 16 (JUL 25 11:24) 20 (JUL 25 18:16) SBP 120 (JUL 26 06:01) 120 (JUL 26 06:01) H 147 (JUL 25 18:16) DBP L 55 (JUL 26 06:01) L 46 (JUL 25 22:29) L 58 (JUL 26 02:15) MAP 71 (JUL 26 06:01) 69 (JUL 25 22:29) 93 (JUL 26 02:15) SpO2 96 (JUL 25 18:16) L 92 (JUL 25 11:24) 96 (JUL 25 18:16) General: Moderate distress. Neck: Supple, Non-tender, No [...] (Last four charted values) WBC 7.2 (JUL 17) 8.4 (JUL 16) 7.2 (OCT 13) 8.4 (OCT 07) HB 11.7 (JUL 17) 11.6 (OCT 16) 11.3 (OCT 13) 11.5 (OCT 07) HCT 40.4 (OCT 17) 37.0 (OCT 16) 35.4 (OCT 13) 35.7 (OCT 07) Plt 241 (OCT 17) 273 (OCT 16) 277 (OCT 13) 263 (OCT 07) Na 137 (OCT 17) 141 (OCT 16) 143 (OCT 13) 142 (OCT 07) K 4.2 (OCT 17) 3.7 (OCT 16) 4.1 (OCT 13) 3.8 (OCT 07) Cl 107 (OCT 17) 107 (OCT 16) 106 (OCT 13) 104 (OCT 07) CO2 24 (OCT 17) 29 (OCT 16) 30 (OCT 13) 31 (OCT 07) BUN H 24 (OCT 17) H 27 (OCT 16) H 23 (OCT 13) 14 (OCT 07) Cr H 1.06 (JUL 17) 1.00 (JUL 16) 1.00 (JUL 13) 0.90 (OCT 07) Glu R H 172 (JUL 22) H 134 (JUL 21) H 213 (JUL 18) H 202 (JUL 12) Ca 9.0 (JUL 22) 9.1 (JUL 21) 9.4 (JUL 18) 9.0 (JUL 12) PT 9.9 (JUL 09) 10.1 (JUL 08) INR 0.9 (JUL 09) 0.9 (JUL 08) PTT 28.0 (JUL 08) AST 15 (JUL 21) 18 (JUL 12) 16 (JUL 09) 17 (JUL 08) ALT 24 (JUL 21) 25 (JUL 12) 23 (JUL 09) 21 (JUL 08) ALK P 56 (JUL 21) 56 (JUL 12) 69 (JUL 09) 63 (JUL 08) T Bili 0.3 (JUL 21) 0.3 (JUL 12) 0.3 (JUL 09) 0.4 (JUL 08) PTN L 6.2 (JUL 21) 6.7 (JUL 12) 7.1 (JUL 09) 7.0 (JUL 08) ALB L 2.7 (JUL 21) L 2.8 (JUL 12) L 3.1 (JUL 09) L 3.2 (JUL 08) No Radiology Results Found Diagnosis / problem 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 History of diabetes, hypertension, h/o cerebrovascular accident anxiety UTI on admit leg pain - dominick? related back - better skin yeast infection Plan: 1. see above medication list for treatment. 2. insulin ss, on lantus bid 3. dc diflucan, 4. off abx per ID 5. decrease seroquel to 6.25 bid 6. pain control 7. Bp control 8. lovenox sq for DVT prophylaxis 9. decrease lisino to 20 mg, d/c norvasc 10. d/w cm, difficult placement documented in this encounter Plan of Treatment Not on file documented as of this encounter Visit Diagnoses Not on filedocumented in this encounter
--- OUTSIDE RECORDS SUMMARY | 2025-07-29 11:56 | XMS_ITS | Encounter Summary ---
Author Organization [employer] ([place], [place], [place], [place]) Address [address] [place] [address] Care Team Providers Care Concrete Pipe Machine Operator Name Role Phone Unavailable Primary Care Provider Unavailabl e Encounter Details Date Type Department Care Team (Late st Contact Info) Description 07/11/2019 Transcribed Document [facility] – [place] Medicine [address] [place] [address] ProviderChano MD [address] [id number] Social History Tobacco Use Types Packs/Day Years Used Date Smoking Tobacco: Never Assessed Comments Unknown Sex and Gender Information Value Date Recorded Sex Assigned at Not on file Legal Sex Female 2:07 PM CDT Gender Identity Not on file Sexual Orientation Not on file documented as of this encounter Miscellaneous Notes * Cerner Conversion Note - Chano ProviderMD - 07/11/2019 4:13 PM CDT On Going Discharge Planning Entered On: 07/11/2019 16:14 EDT Performed On: 07/11/2019 16:13 EDT by SANJIV VOGT RN-Barrel [email or web address] Consultant Progress Note Discharge Arrangements : Patient Post-Acute Information Patient Name: LUDY ANTONIO Gender: Female : [birth year] Age: 68 Years No Post-Acute Placement(s) Listed No Post-Acute Service(s) Listed No [place] Referral(s) Listed SANJIV VOGT RN-Barrel Cleaner - 07/11/2019 16:13 EDT Narrative Progress Note Narrative Progress Note : psych consult referral faxed to Dr. Valdez's office to assess for psychosis. SANJIV VOGT, RN-Barrel Cleaner - 07/11/2019 16:13 EDT Electronically signed by Summer [facility] Conversion Forensic Science Technician Cerner at 01/23/2023 1:21 PM CDT documented in this encounter Plan of Treatment Not on file documented as of this encounter Visit Diagnoses Not on filedocumented in this encounter
--- OUTSIDE RECORDS SUMMARY | 2025-07-29 11:56 | XMS_ITS | Encounter Summary ---
Author Organization [employer] ([place], [place], [place], [place]) Address [address] [place] [address] Care Team Providers Care Mechanical Fitter Name Role Phone Unavailable Primary Care Provider Unavailabl e Encounter Details Date Type Department Care Team (Late st Contact Info) Description 10/05/2019 Transcribed Document [facility] [place] [address] [place] [address] ProviderChano MD [address] [place], [place] [phone] Social History Tobacco Use Types Packs/Day Years Used Date Smoking Tobacco: Never Assessed Comments Unknown Sex and Gender Information Value Date Recorded Sex Assigned at Not on file Legal Sex Female 2:07 PM CDT Gender Identity Not on file Sexual Orientation Not on file documented as of this encounter Miscellaneous Notes * Cerner Conversion Note - Chano Gatica MD - 10/05/2019 7:44 PM PERINATAL NURSE Provider Notification Entered On: 10/05/2019 19:45 EST Performed On: 10/05/2019 19:44 EST by Chrissy Villeda RN Provider Notification Provider Notified of Concerns/Results : Critical value result Critical Result Details : Lactic Acid 2.8 Critical Result Call Received From : Jb in lab Critical Result Read Back and Verified : Yes Provider Notified Name : SAVANA GASTON FALLON SUN Provider Not Notified Reason : Provider already reviewed abnormal results Provider Notified Time : 10/05/2019 19:44 EST Chrissy Villeda RN - 10/05/2019 19:44 EST Electronically signed by Summer [facility] Conversion Concrete Bucket Unloader Cerner at 01/23/2023 1:20 PM CDT documented in this encounter Plan of Treatment Not on file documented as of this encounter Visit Diagnoses Not on filedocumented in this encounter
--- OUTSIDE RECORDS SUMMARY | 2025-07-29 11:56 | XMS_ITS | Encounter Summary ---
Author Organization [employer] ([place], [place], [place], [place]) Address [address] [place] [address] Care Team Providers Care Freight Inspector Name Role Phone Unavailable Primary Care Provider Unavailabl e Encounter Details Date Type Department Care Team (Late st Contact Info) Description 07/28/2019 Transcribed Document [facility] Radiology [address] [place] [address] Abby Reid MD [address] [place] [address] [place] [address] Social History Tobacco Use Types Packs/Day Years Used Date Smoking Tobacco: Never Assessed Comments Unknown Sex and Gender Information Value Date Recorded Sex Assigned at Not on file Legal Sex Female 2:07 PM CDT Gender Identity Not on file Sexual Orientation Not on file documented as of this encounter Miscellaneous Notes * Cerner Conversion Note - Abby Reid MD - 07/28/2019 10:39 AM EDT Patient: LUDY ANTONIO Age: 68 years Sex: Female : 1950 Associated Diagnoses: None Author: ABBY REID MD-INT Subjective Discharge Summary Date of Admission: 07/11/2019 DATE OF DISCHARGE: 07/28/2019 PRIMARY CARE PHYSICIAN: Dr. Jordan Lopez. CONSULTATION [...] which has since been discontinued. On July 28, 2019 Patient seen earlier in the day during routine rounds. she is AAOX 3 she answered all of my questions appropriately. She was lying i the bed.. Her pain seems to be better controlled now No family is around this morning when I saw her Patient was evaluated by MARINA yesterday. Patient was walking adequately this morning per nursing staff report Case management has exhausted almost all the avenues for potential placement As per Sisi JULIO . I had extensive discussion with the case management as well as nursing staff Patient is being discharged home today. I will arrange home health Family is aware to take patient to the [facility] emergency room right away If she develops [...] Bedtime Flonase 0.05 mg/inh nasal spray 2 [place], [...] mg = 1 Tab, Oral, At Bedtime Metoprolol Tartrate 25 mg oral tablet 12.5 [...] chew) Flonase 0.05 mg/inh nasal spray: 2 [place], [...] Bedtime Flonase 0.05 mg/inh nasal spray 2 [place], [...] Problem list: Medical Pain//chronic / SNOMED CT 340643037 / Confirmed At risk for sleep apnea / IMO 37430453 / Confirmed Back pain / SNOMED CT 3999872051 / Confirmed Cataract///beginning stage / SNOMED CT 309168211 / Confirmed Chest pain///cath negative / SNOMED CT 36521192 / Confirmed Completely occulded L carotid / SNOMED CT 9564995211 / Confirmed Lumbar disc disease / SNOMED CT 1537134745 / Confirmed Fibromyalgia / SNOMED CT 166815415 / Confirmed Hiatal hernia / SNOMED CT 588021399 / Complaint of H/O ischemic left MCA stroke / SNOMED CT 8298482969 / Confirmed Memory deficit///slow recall / SNOMED CT 1565997791 / Confirmed Numbness and tingling//right leg / SNOMED CT 1992441428 / Confirmed Obesity / SNOMED CT 0273055594 / Confirmed Right leg pain / SNOMED CT 9628475012 / Confirmed Colon polyps / SNOMED CT 759007961 / Confirmed Sleep apnea///risk / SNOMED CT 211554756 / Confirmed Wears glasses / SNOMED CT 961742409 / Confirmed, Active Problems (24) Acid reflux [...] 24 hrs) Last Charted Minimum Maximum Temp 97.4 (JUL 28 05:56) 97.4 (JUL 28 05:56) 98.2 (JUL 27 11:00) Apical HR 60 (JUL 28 08:16) L 55 (JUL 27 21:35) 60 (JUL 28 08:16) Mon HR 55 (JUL 28 05:56) 55 (JUL 27 21:26) 67 (JUL 27 11:05) Resp Rate 18 (JUL 28 05:56) 16 (JUL 27 18:30) 18 (JUL 28 05:56) SBP 131 (JUL 28 05:56) 108 (JUL 27 11:00) H 141 (JUL 27 18:30) DBP 61 (JUL 28 05:56) L 42 (JUL 27 16:00) 68 (JUL 27 11:00) MAP 80 (JUL 28 05:56) 57 (JUL 27 16:00) 91 (JUL 27 21:26) SpO2 94 (JUL 28 02:53) L 91 (JUL 27 11:05) 94 (JUL 27 16:00) General: Moderate distress. Neck: Supple, Non-tender, No [...] 16) 7.2 (JUL 13) HB 11.9 (JUL 22) 11.7 (OCT 17) 11.6 (OCT 16) 11.3 (JUL 13) HCT 38.1 (JUL 22) 40.4 (OCT 17) 37.0 (OCT 16) 35.4 (OCT 13) Plt 311 (JUL 22) 241 (OCT 17) 273 (OCT 16) 277 (JUL 13) Na 138 (JUL 22) 137 (OCT 17) 141 (OCT 16) 143 (OCT 13) K 4.9 (JUL 22) 4.2 (OCT 17) 3.7 (OCT 16) 4.1 (OCT 13) Cl 105 (JUL 22) 107 (OCT 17) 107 (OCT 16) 106 (OCT 13) CO2 26 (JUL 22) 24 (OCT 17) 29 (OCT 16) 30 (OCT 13) BUN H 29 (JUL 22) H 24 (OCT 17) H 27 (OCT 16) H 23 (OCT 13) Cr H 1.20 (JUL 22) H 1.06 (JUL 17) 1.00 (JUL 16) 1.00 (JUL 13) Glu R H 207 (JUL 22) H 172 (OCT 17) H 134 (JUL 21) H 213 (JUL 18) Ca 9.5 (JUL [...]
--- OUTSIDE RECORDS SUMMARY | 2025-07-29 11:56 | XMS_ITS | Encounter Summary ---
Author Organization [employer] ([place], [place], [place], [place]) Address [address] [place] [address] Care Team Providers Care Retail Sales Merchandiser Development Name Role Phone Unavailable Primary Care Provider Unavailabl e Encounter Details Date Type Department Care Team (Late st Contact Info) Description 07/28/2019 Transcribed Document [facility] [place] Family Medicine [address] [place] [address] ProviderChano MD [address] [place] [address] Social History Tobacco Use Types Packs/Day Years Used Date Smoking Tobacco: Never Assessed Comments Unknown Sex and Gender Information Value Date Recorded Sex Assigned at Not on file Legal Sex Female 2:07 PM CDT Gender Identity Not on file Sexual Orientation Not on file documented as of this encounter Miscellaneous Notes * Cerner Conversion Note - Chano ProviderMD - 07/28/2019 3:00 PM CDT Final Discharge Planning Entered On: 07/28/2019 15:02 EDT Performed On: 07/28/2019 15:00 EDT by HORACIO ACHARYA RN-Supervisor Bottle House Cleaners Final Discharge Planning Discharge Arrangements : Patient Post-Acute Information Patient Name: LUDY ANTONIO Gender: Female : [birth year] Age: 68 Years Curaspan Referral(s): Service: Organization: Business Address: Phone Number: Home Care Physician Services [facility] - [address], [address], [place], [address] Patient Offered Choice/Affiliations Explained : Yes Designation of Choice Signed : Yes Important Medicare Message Reviewed With : Spouse Important Medicare Message Reviewed D/T : 07/28/2019 10:00 EDT Transportation Needs : Car Follow Up Appointment Scheduled : Yes Is Patient High/Moderate Readmission Risk? : No Patient/Family Notified of Plan : Yes Support Person/Pt Rep Notified of Plan : Yes Is Patient Ready for Discharge? : Yes Physician Notified Patient is Ready for Discharge? : Yes Discharge To Care Management : Home Health Services (Related/SOC within 3 days)-06 HORACIO ACHARYA RN-Supervisor [employer] Cleaners - 07/28/2019 15:00 EDT Final Narrative Note Final Narrative Note : Pt dc'd home today via spouse and daughter Alma Rosa. Informed Kavitha with [facility]. No other CM needs identified. HORACIO ACHARYA RN-Supervisor [employer]le House Cleaners - 07/28/2019 15:00 EDT documented in this encounter Plan of Treatment Not on file documented as of this encounter Visit Diagnoses Not on filedocumented in this encounter
--- OUTSIDE RECORDS SUMMARY | 2025-07-29 11:56 | XMS_ITS | Encounter Summary ---
Author Organization [employer] ([place], [place], [place], [place]) Address [address] [place] [address] Care Team Providers Care Senior Pastor Name Role Phone Unavailable Primary Care Provider Unavailabl e Encounter Details Date Type Department Care Team (Late st Contact Info) Description 07/09/2019 Transcribed Document [facility] [place] [address] [place] [address] Chano Gatica MD [address], [place] [id number] Social History Tobacco Use Types Packs/Day Years Used Date Smoking Tobacco: Never Assessed Comments Unknown Sex and Gender Information Value Date Recorded Sex Assigned at Not on file Legal Sex Female 2:07 PM CDT Gender Identity Not on file Sexual Orientation Not on file documented as of this encounter Miscellaneous Notes * Cerner Conversion Note - Chano Gatica MD - 07/09/2019 1:15 PM CDT Procedural Documentation Entered On: 07/09/2019 13:33 EDT Performed On: 07/09/2019 13:15 EDT by Miriam Boudreaux RN Procedure Documentation Procedure to be Performed : left radial arterial line Time Out Pause Time : 07/09/2019 13:15 EDT All Activity Suspended : Yes Team Verbally Confirms Information : Correct patient identity, Correct side and site are marked, Consent form is present and accurate, Agreement on the procedure to be done, Correct patient position, Relevant images/results properly labeled/appropriately displayed, Confirm the skin prep has dried, Performed in location of procedure after prepped/draped Procedure Performed : left radial kayley Proper Use of Sterile Apparel per Policy : Yes Procedure Case Attendee : TAURUS CHILDRESS MD Procedure Case Attendee Role : Anesthesiologist Procedure Case Attendee Role 2 : featheredge machine operator Case Attendee 2 : Miriam Boudreaux RN Procedure Case Attendee Role 3 : featheredge machine operator Case Attendee 3 : MARINA Jaquez RN Ramezankhani, Lesley R, RN - 07/09/2019 13:30 EDT Brianna Level I Post Anesthesia Assessment Brianna I Activity Status : Moves 4 extremities voluntarily or on command Brianna l Respiratory Component : Able to deep breathe and cough freely Brianna I Circulation Component : BP 20% of preanesthetic level Brianna I Consciousness : Fully awake Brianna l Oxygen Saturation : Needs oxygen to maintain > 92% Brianna l Score : 9 Miriam Boudreaux RN - 07/09/2019 13:30 EDT Vital Measurements Pulse Method : Pulse Oximetry Peripheral Pulse Rate : 100 bpm Blood Pressure Location : Arterial Blood Pressure Source : Arterial Pressure Line Blood Pressure Position : Supine Systolic Blood Pressure : 205 mmHg (HI) Diastolic Blood Pressure : 59 mmHg (LOW) Oxygen Saturation : 96 % Oxygen Therapy Mode : Nasal cannula Miriam Boudreaux RN - 07/09/2019 13:30 EDT Oxygen Therapy Oxygen Titrated : No Oxygen Therapy Mode : Nasal cannula Oxygen Flow Rate : 3 Liter/Min Pulse Oximeter Probe Site : Hand, left Oxygen Saturation : 96 % Oxygen Humidification : None Miriam Boudreaux RN - 07/09/2019 13:30 EDT documented in this encounter Plan of Treatment Not on file documented as of this encounter Visit Diagnoses Not on filedocumented in this encounter
--- OUTSIDE RECORDS SUMMARY | 2025-07-29 11:56 | XMS_ITS | Encounter Summary ---
Author Organization [employer] ([place], [place], [place], [place]) Address [address] [place] [address] Care Team Providers Care Box Truck Washer Name Role Phone Unavailable Primary Care Provider Unavailabl e Encounter Details Date Type Department Care Team (Late st Contact Info) Description 07/27/2019 Transcribed Document [facility] [place] [facility] [address] [place] [address] ProviderChano MD [address], [place] [id number] Social History Tobacco Use Types Packs/Day Years Used Date Smoking Tobacco: Never Assessed Comments Unknown Sex and Gender Information Value Date Recorded Sex Assigned at Not on file Legal Sex Female 2:07 PM CDT Gender Identity Not on file Sexual Orientation Not on file documented as of this encounter Miscellaneous Notes * Cerner Conversion Note - Chano ProviderMD - 07/27/2019 4:58 PM CDT On Going Discharge Planning Entered On: 07/27/2019 17:01 EDT Performed On: 07/27/2019 16:58 EDT by HORACIO ACHARYA RN-Clinical Laboratory Science ProfessorBehavioral Health Professional Progress Note Discharge Arrangements : Patient Post-Acute Information Patient Name: ADRIENNE ANTONIO Gender: Female : [birth year] Age: 68 Years No Post-Acute Placement(s) Listed No Post-Acute Service(s) Listed No Curaspan Referral(s) Listed Barriers to Discharge Identified : Clinical Condition of Patient Barriers to Discharge Unresolved : Clinical Condition of Patient HORACIO ACHARYA RN-Clinical Laboratory Science Professor - 07/27/2019 16:58 EDT Narrative Progress Note Narrative Progress Note : All psych facilities have denied admission. [facility] evaluated pt again today, pt is A&O and has no SI/HI. D/W family. They agree to take pt home with [facility] tomorrow. Referral sent via [facility] and informed Kavitha. Social workers with [facility] will help family with other community resources such as private duty sitters, etc... CM will continue to follow. Historical Progress Note : Referrals resent to [facility] in [place] and spoke to admissions. No beds as of now, but they will look at referral to determine if able to offer a bed when one comes available. Resenreferral to [facility] as well, they are looking at pt again. Sent referral to [facility]. Daughter Alma Rosa found a psych facility in [place]--[facility] and got a personal lines agent--Joey Barriga ([phone]). Referral sent via [facility] and informed intake as well as had discussion with Joey regarding pt. CM will continue to follow. HORACIO ACHARYA RN-Clinical Laboratory Science Professor - 07/26/19 16:18:25 MRI-(-). U/A-pyuria. No abx per Dr. Jama. Pt even more confused today, refusing therapy and meds. Pt is paranoid thinking people are trying to give her things against her will. More updates and test results sent to [facility]-psych and spoke to Monisha. Pt has been medically cleared to [facility]. Monisha called CM later in day and stated MD has declined admission. CM begged Monisha to ask if MD would come do a bedside evaluation. She states she will ask. Spoke to Monisha 2 hours later, he states he does not do bedside evals. D/W pt's daughter, Dr. Reid, Dr. Jama, and bedside RN Fior. CM will contniue to follow. HORACIO ACHARYA RN-Clinical Laboratory Science Professor - 07/23/19 17:17:27 Pt's confusion is worse. She is unable to use utensils and is using her hands to eat. [facility] reconsulted. Labs/urine sent. [facility] called asking if pt still needed placement. Saritha Monsivais met with pt at bedside and feels pt would do better if went to psych unit prior to rehab. Spoke to Urvashi at [facility]-Psych unit and sent updates to her. She states pt has to be medically ready for dc before she can given MD referral. Pt is not ready today. D/W Dr. Reid, pt's daughter, spouse, and bedside RN. CM will contniue to follow. HORACIO ACHARYA RN-Clinical Laboratory Science Professor - 07/23/19 17:13:59 Lisbeth met with pt and family at bedside, but her boss has declined admission. Spoke to Yodit with [employer], she [facility], [facility], and [facility]. They chose [facility], precert initiated. CM will continue to follow. HORACIO ACHARYA RN-Clinical Laboratory Science Professor - 07/21/19 14:38:34 Pt was referred to 18 debbie/psych facilities by [facility]. All have declined admission, some stating she needs physical rehab and/or does not have any acute issues for psych admission. Spouse agreeable to try for SNF admission since she is still requiring assistance with ADL's and bed mobility. He chose [facility], [facility], and [facility]. Referrals sent via [employer]. Spoke to Lisbeth with the [facility]. She states they have a manager industrial that can see pt at the facility. She will need to come do a bedside eval. D/W Dr. Horner as well. CM will continue to follow. HORACIO ACHARYA RN-Clinical Laboratory Science Professor - 07/20/19 15:47:15 [facility] consulted. They received [...] CM will continue to follow. HORACIO ACHARYA RN-Clinical Laboratory Science Professor - 07/19/19 15:10:43 [facility] eval for inpatient psych on Thursday 07/19. CM will continue to follow. HORACIO ACHARYA RN-Clinical Laboratory Science Professor - 07/16/19 12:46:58 [facility] declined admission to their psych unit. No word from [facility]. Met with pt's daughter and had lengthy discussion regarding disposition. CM will consult [facility] at time of dc for help with admission to debbie-psych unit somewhere. D/W Dr. Horner and Dr. Jama. CM will continue to follow. HORACIO ACHARYA RN-Clinical Laboratory Science Professor - 07/15/19 14:03:13 Spoke to pt's spouse Kian on the phone today. 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 He states he does not want her going to those places as she kows people there. He agrees to referrals to [facility] and [facility] inpatient psych units. Referral sent and spoke to JUSTA Perez at [facility] and Yaa-medical accounting clerk at [facility]. CM will continue to follow. HORACIO ACHARYA RN-Clinical Laboratory Science Professor - 07/14/19 13:36:43 Dr. Valdez consult this [...] CM will continue to follow. HORACIO ACHARYA RN-Clinical Laboratory Science Professor - 07/13/19 17:41:20 psych consult referral faxed to Dr. Valdez's office to assess for psychosis. SANJIV VOGT RN-Clinical Laboratory Science Professor - 07/11/19 16:14:26 HORACIO ACHARYA RN-Clinical Laboratory Science Professor - 07/27/2019 16:58 EDT Electronically signed by Summer [facility] Conversion Inspector And Tester Cerner at 01/23/2023 1:31 PM CDT documented in this encounter Plan of Treatment Not on file documented as of this encounter Visit Diagnoses Not on filedocumented in this encounter
--- OUTSIDE RECORDS SUMMARY | 2025-07-29 11:56 | XMS_ITS | Encounter Summary ---
Author Organization [employer] ([place], [place], [place], [place]) Address [address] [place] [address] Care Team Providers Care Marriage And Family Social Worker Name Role Phone Unavailable Primary Care Provider Unavailabl e Encounter Details Date Type Department Care Team (Late st Contact Info) Description 07/27/2019 Transcribed Document [facility] [place] [address] [place] [address] ProviderChano MD [address] [place], [place] [id number] Social History Tobacco Use Types Packs/Day Years Used Date Smoking Tobacco: Never Assessed Comments Unknown Sex and Gender Information Value Date Recorded Sex Assigned at Not on file Legal Sex Female 2:07 PM CDT Gender Identity Not on file Sexual Orientation Not on file documented as of this encounter Miscellaneous Notes * Cerner Conversion Note - Chano Gatica MD - 07/27/2019 1:41 PM CDT Behavioral Health Assessment Note Entered On: 07/27/2019 13:44 EDT Performed On: 07/27/2019 13:41 EDT by EVI LORENZO, VENEER SLICING MACHINE OPERATOR II-TRIAGE Behavioral Health Assessment Note Reason For Behavioral Health Assessment : PT IS A 68 YO FEMALE WHO IS RECOVERING FROM BACK SURGERY AT [facility]. PT WAS GIVEN A FOLLOW-UP NEEDS ASSESSMENT. PT WAS MILDLY CONFUSED AND ORIENTED X3 (NOT TIME). PT REPORTED NO SI, HI, OR PSYCHOTIC SX. PT DID PRESENT WITH MILD INATTENTION. PT WAS STAFFED WITH DR LANDRY WHO RECOMMENDED GERIATRIC PSYCH INPATIENT. -- EVI LORENZO PSYCHIATRIC, VENEER SLICING MACHINE OPERATOR II, CARMELO-[facility]INA, 1343, 07/27/19. Are You Currently Suicidal Or Homicidal? : No Suicidal Ideation : No current suicidal thoughts Suicide Plan : No plan Current Admission Precipitated By Suicide Attempt : No Suicide Attempt History : No previous attempt Are You Currently Homicidal : No Do You Have a Plan to Harm Others : No plan Clear Homicidal Target : No Thought Process : Confused Thought Content : Reality based Types of Hallucination(s) : None Appearance : Appropriate Mood : Cooperative Affect : Appropriate General behavior , BH : Cooperative Rate of Speech : Normal Tone of Speech : Soft Orientation : Not oriented to time Legal Guardian : No Legal Status : Voluntary Post-eval Disposition : Other: INPATIENT GERIATRIC PSYCH EVI LORENZO, VENEER SLICING MACHINE OPERATOR II-TRIAGE - 07/27/2019 13:41 EDT Social History (As Of: 07/27/2019 13:44:45 EDT) Tobacco: Use in Last 12 Months: [...] TRINIDAD, ED Nurse) Employment/School: Retired, Previous employment/school: [employer]. (Last Updated: 07/17/2014 00:15:13 EDT by KATIE TRINIDAD, ED Nurse) documented in this encounter Plan of Treatment Not on file documented as of this encounter Visit Diagnoses Not on filedocumented in this encounter
--- OUTSIDE RECORDS SUMMARY | 2025-07-29 11:56 | XMS_ITS | Encounter Summary ---
Author Organization [employer] ([place], [place], [place], [place]) Address [address] [place] [address] Care Team Providers Care Windows Application Developer Name Role Phone Unavailable Primary Care Provider Unavailabl e Encounter Details Date Type Department Care Team (Late st Contact Info) Description 07/10/2019 Transcribed Document [facility] [place] [address] Chano Gatica MD [address] [id number] Social History Tobacco Use Types Packs/Day Years Used Date Smoking Tobacco: Never Assessed Comments Unknown Sex and Gender Information Value Date Recorded Sex Assigned at Not on file Legal Sex Female 2:07 PM CDT Gender Identity Not on file Sexual Orientation Not on file documented as of this encounter Miscellaneous Notes * Cerner Conversion Note - Chano Gatica MD - 07/10/2019 3:26 PM CDT DATE OF CONSULTATION: 07/10/2019 NEUROLOGY CONSULT REFERRING PHYSICIAN: Dr. Liseth Horner. HISTORY OF PRESENT ILLNESS: Adrienne Savage is a 68-year-old white female with multiple medical problems including diabetes, chronic gait disorder, lumbar spine disease, and a previous stroke seven years ago that has affected her speech, who was admitted to our hospital electively two days ago on July 08 to undergo recurrent back surgery at L3-L4 on the right. I have been asked to evaluate her for encephalopathy. Patient is currently sleepy and unable to provide much history. The following history is obtained from speaking to the family and reviewing the chart. The family tells me that for the last 7-8 years, she has had to use a walker to ambulate. Apparently, she has had to use a walker due to multiple medical problems including a stroke many years ago that affected her left hemisphere as well as multiple orthopedic surgeries. She had a stroke roughly seven years ago that affected her left hemisphere that has given her some partially aphasia and she often gets confused and has trouble getting words out. Apparently, she has also been having low back pain extending to her right leg and therefore earlier this year in April she was admitted to our hospital briefly to undergo surgery on her low back. At that time, she underwent a right L3-4 minimally invasive surgery with a microdiscectomy with laminotomy. She did not have to go to rehab after this, but still was having back pain and leg pain and has been taking oxycodone at home. Over the last few months, the family has noticed that her memory is declining and her confusion is getting worse and her gait is more unsteady. Sometimes she even has trouble getting up out of a seated position. Because of these continued problems, Dr. Lucas, the neurosurgeon brought her in for a redo surgery and therefore yesterday she underwent a redo right L3-L4 minimally invasive surgery microdiscectomy. After the surgery, she has been getting pain medicines and has been sleepy here in the hospital. She has been intermittently agitated and apparently became combative with the nurse last night, and is now in restraints in her arms. Apparently, sometime over the last month or two, because of her cognitive decline, she was seeing the outpatient neurologist, Dr. Núñez at [facility] who ordered an MRI of her brain and cervical spine, but I do not have the results of these tests. PAST MEDICAL HISTORY: 1. She quit smoking 50 years ago. 2. No alcohol use. 3. No illicit drug use. 4. Stroke seven years ago that affected her left hemisphere and left her with some aphasia and apparently this was due to an occluded left carotid artery. 5. She has diabetes. 6. She has had a left hip replacement. 7. She has had a right knee replacement. 8. She has had shoulder surgery. 9. She has had an appendectomy. 10. According to the chart, she has a history of hyperlipidemia but is not on any statins. 11. According to the chart, she has a history of fibromyalgia. 12. She has had surgery on her Achilles tendon. SOCIAL HISTORY: The patient lives in [place] with her . She has four children. 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 She has not driven in three months. She has had to use a walker for the last decade. FAMILY HISTORY: Her father of black lung disease. Her mother of congestive heart failure. REVIEW OF SYSTEMS: GENERAL: She thinks she may have had some chills. EYES: There has been no visual loss. EARS: There has been no hearing loss. CARDIAC: There has been no chest pain. RESPIRATORY: She sometimes feels short of breath. GI: There has been no changes in her bowel habits. : There has been no changes in her urinary habits. SKIN: There has been no rashes. MUSCULAR: She sometimes complains of muscle aches. NEUROLOGIC: She has not had any headaches. PSYCHIATRIC: She sometimes has depression. ENDOCRINE: Her blood sugars run in the low 200s. HEMATOLOGIC: The family is uncertain if she has ever had a blood transfusion. PHYSICAL EXAMINATION: She is a well-developed female, who is somnolent in bed. Her blood pressure is 139/56, temperature is 97.8, pulse is 80, respirations are 16. Her heart has regular rate and rhythm. Lungs are clear. Neck is supple without any bruits. An ophthalmologic exam was done and her pupils react equally to light, but I could not see her disc. Motor exam shows that she will raise both arms up against gravity to command, but both arms were slightly weak. She could not raise her legs up against gravity currently. Her tone in both arms and legs is normal. She is alert and oriented to name, was too sleepy to answer questions regarding fund of knowledge or place or date. Coordination could not be checked. She would not follow commands consistently enough. Reflexes were 0 to 1+. LABORATORY DATA: The patient apparently has had a CT scan of her brain and cervical spine a few weeks ago at an outside facility, but we do not have this report. Her most recent electrolytes drawn yesterday showed glucose of 207. Her AST and ALT are normal. White count is 7.9, hematocrit is 39.8, platelet count is 267. TSH is normal at 2.8. Patient has had a CT scan of her brain that shows areas of encephalomalacia within the left parietal and left temporal regions most likely due to an old infarct. ASSESSMENT: Adrienne Savage is a 68-year-old female with diabetes, cerebrovascular disease, an occluded left carotid artery, back pain as well as multiple orthopedic procedures and chronic gait disorder, who has had a three month history of encephalopathy. The differential for her encephalopathy could include one or a combination of the followin. Side effects to medications such as pain medicines. 2. Cerebrovascular disease. 3. Vitamin deficiency. 4. Vasculitis. 5. Myopathy. 6. Structural disease of her spine. RECOMMENDATIONS: At this time, I am recommending the following. 1. To check a vitamin B12 and folate level. 2. To check a CPK. 3. I will not repeat a sed rate and C-reactive protein as these have already been checked here. 4. If she does not improve without explanation, consideration could be given to sending off an ABG. 5. At discharge, she should follow up with an outpatient neurologist. 6. No driving until released by a physician. 7. I am also requesting records from her outpatient neurologist , Dr. Núñez. Of note, I have spent over 80 minutes on this case today. Over half of that time was spent reviewing the chart and counseling the patient's family and the patient herself. I will follow intermittently with you. Eric Hitchcock M.D. Dict: 07/10/2019 15:26:11 Trans: 07/10/2019 16:34:02 CC1: Eric Hitchcock M.D. documented in this encounter Plan of Treatment Not on file documented as of this encounter Visit Diagnoses Not on filedocumented in this encounter
--- OUTSIDE RECORDS SUMMARY | 2025-07-29 11:56 | XMS_ITS | Encounter Summary ---
Author Organization [employer] ([place], [place], [place], [place]) Address [address] [place] [address] Care Team Providers Care Ems Helicopter Pilot Name Role Phone Unavailable Primary Care Provider Unavailabl e Encounter Details Date Type Department Care Team (Late st Contact Info) Description 07/09/2019 Transcribed Document [facility] [place] Family Medicine [facility] [place] [address] Chano Gatica MD [address] [place], [place] [id number] Social History Tobacco Use Types Packs/Day Years Used Date Smoking Tobacco: Never Assessed Comments Unknown Sex and Gender Information Value Date Recorded Sex Assigned at Not on file Legal Sex Female 2:07 PM CDT Gender Identity Not on file Sexual Orientation Not on file documented as of this encounter Miscellaneous Notes * Cerner Conversion Note - Historical ProviderMD - 07/09/2019 12:40 PM CDT Patient: LUDY ANTONIO Age: 68 Years Sex: Female : 1950 Chief Complaint pt had back surgery (L3-L4) apx 1 month ago, nausea but no vomiting, back pain 07/15. took 10mg oxycodone at 1330 today. Reason for Consultation back pain and leg pain History of Present Illness 68 YO s/p an uncomplicated right L3-4 MIS microdiscectomy on 04/05/19. The patient has not done extremely well regarding any relief of her right leg and back pain. An MRI of the lumbar spine was obtained because she is having low back and right leg pain which showed expected postoperative changes. No evidence of infection. No evidence of recurrent disc. The states that this is significantly disabling the patient. As she has difficulty standing or walking for long periods of time and some chills at night, blood work was ordered from our office this week. marginal esr, cbc / wbc was ok, and crp was elevated. We discussed CT guided aspirate as an outpatient, but due to her pain level, she was brought to the ER by family. She had some concern about confusion, speech problems post op. She was worked up for cervical spinal disease and for stroke. Both of this workup was negative. Review of Systems 14 point ros otherwise negative Vital Signs T: 36.8 ??C TMIN: 36.7 ??C TMAX: 36.8 ??C HR: 64(Peripheral) RR: 14 BP: 140/98 SpO2: 94% HT: 162.56 cm WT: 113.64 kg BMI: 43 Oxygen Settings (Last) Oxygen Therapy Mode: Room air (07/09/19 07:08:00) Physical Exam laying in bed, nad awake and alert, but closes eyes during exam nonfocal face symmetric maew, 5/5 throughout lumbar incision well healed. Assessment/Plan Recurent right leg and back pain s/p an uncomplicated right L3-4 MIS microdiscectomy on 04/05/19. Given blood work, may be suffering from radiculitis, neuropathy, or indolent infection. Plan for redo right L3-4 ME LMD with cultures with Dr. Winston today. NPO. Consent. I d/w the patient, her , and her daughter with nurse present. Dr. Winston agrees with plan as above. Provider Information Primary Care Physician - QUIRINO SENIOR (REF) Attending Physician - TOM MORSE MD-INT Admitting Physician - TOM MORSE MD-INT Consulting Physician - ONUR WINSTON MD, MD Referring Physician - HEIDI ROBISON MD-EMR Problem List/Past Medical History Ongoing Acid reflux Allergic asthma Arthritis At risk [...] Right leg pain Sleep apnea///risk Wears glasses Historical No qualifying data Procedure/Surgical History heart catheterization (2012), left hip replacement (2011), achilles repair, Appendectomy, Cholecystectomy, right and left shoulder repair, Tonsillectomy. Medications Inpatient Ancef, 2 Gram= 50 mL, IV Piggyback, PREOP Colace, 100 mg= 1 Cap, Oral, BID Cymbalta, 60 mg= 2 Cap, Oral, At Bedtime Dilaudid, 0.25 mg= 0.25 mL, IV Push, Q2H, PRN DuoNeb 0.5 mg-2.5 mg/3 mL inhalation solution, 3 mL, Nebulized Inhalation , RT_Q6H, PRN famotidine, 20 mg= 1 Tab, Oral, 1-Time Flonase, 1 Puff, Nasal, Daily formoterol-mometasone 5 mcg-200 mcg/inh inhalation aerosol, 2 Puff, Inhalation, BID insulin lispro sliding scale, Scale A:, SubCutaneous, AC and at Bedtime Lactated Ringers Injection intravenous solution 1,000 mL, 1000 mL, IntraVENous lidocaine 1% preservative-free injectable solution, 0.5 mL, IntraDermal, 1-Time lisinopril, 40 mg= 2 Tab, Oral, At Bedtime loratadine, 10 mg= 1 Tab, Oral, At Bedtime metoprolol tartrate, 6.25 mg= 0.25 Tab, Oral, At Bedtime MiraLax, 17 Gram= 1 Packet, Oral, Daily, PRN oxyCODONE, 10 mg= 2 Tab, Oral, Q6H, PRN Pepcid, 20 mg= 2 mL, IV Push, BID Tylenol, 650 mg= 2 Tab, Oral, Q4H, PRN Zofran, 4 mg= 2 mL, IV Push, Q4H, PRN Home Aciphex, 20 mg, Oral, BID Advair Diskus 250 mcg-50 mcg inhalation powder, 1 Puff, Inhalation, Daily, PRN Centrum, 1 Tab, Oral, Daily Cymbalta 60 mg oral delayed release capsule, 60 mg= 1 Cap, Oral, At Bedtime Flonase 0.05 mg/inh nasal spray, 2 Welch, Nasal, Daily Lantus, 60 Units, SubCutaneous, At [...] 2 Tab, Oral, Q6H, PRN Vitamin D3, 30331 Int Units, Oral, See Comment Allergies Avandia (CHF) NSAIDs fenofibrate metFORMIN statins (Fenofibrate, Fenofibrate) Social History Alcohol Use in Last 12 Months: No. 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 Home/Environment Lives with Spouse. Living situation: Home with assistance. Substance Abuse Drug Use Hx: No. Tobacco Use in Last 12 Months: Cigarettes. Smoking Status Former smoker. Years of Use: 1. Packs/Tins Daily: 0.5. Last Used: teenager. Lab Results Test Name Test Result Date/Time Sodium Level 142 mmol/L 07/09/2019 04:17 EDT Sodium Level 141 mmol/L 07/08/2019 19:39 EDT Potassium Level 4.4 mmol/L 07/09/2019 04:17 EDT Potassium Level 3.9 mmol/L 07/08/2019 19:39 EDT Chloride Level 106 mmol/L 07/09/2019 04:17 EDT Chloride Level 105 mmol/L 07/08/2019 19:39 EDT Carbon Dioxide Level 27 mmol/L 07/09/2019 04:17 EDT Carbon Dioxide Level 30 mmol/L 07/08/2019 19:39 EDT Anion Gap 13 07/09/2019 04:17 EDT Anion Gap 10 07/08/2019 19:39 EDT Glucose Level 207 mg/dL (High) 07/09/2019 04:17 EDT Glucose Level 153 mg/dL (High) 07/08/2019 19:39 EDT Blood Urea Nitrogen 19 mg/dL 07/09/2019 04:17 EDT Blood Urea Nitrogen 20 mg/dL 07/08/2019 19:39 EDT Creatinine Level 1.10 mg/dL (High) 07/09/2019 04:17 EDT Creatinine Level 1.00 mg/dL 07/08/2019 19:39 EDT eGFR 60 mL/min/1.73m2 07/09/2019 04:17 EDT eGFR >60 mL/min/1.73m2 07/08/2019 19:39 EDT eGFR NonAfrican 49 mL/min/1.73m2 (Low) 07/09/2019 04:17 EDT eGFR NonAfrican 55 mL/min/1.73m2 (Low) 07/08/2019 19:39 EDT Bun/Creatinine 17.3 07/09/2019 04:17 EDT Bun/Creatinine 20.0 07/08/2019 19:39 EDT Calcium Level 9.4 mg/dL 07/09/2019 04:17 EDT Calcium Level 9.7 mg/dL 07/08/2019 19:39 EDT Protein Total 7.1 Gram/dL 07/09/2019 04:17 EDT Protein Total 7.0 Gram/dL 07/08/2019 19:39 EDT Albumin Level 3.1 Gram/dL (Low) 07/09/2019 04:17 EDT Albumin Level 3.2 Gram/dL (Low) 07/08/2019 19:39 EDT Globulin 4.0 Gram/dL 07/09/2019 04:17 EDT Globulin 3.8 Gram/dL 07/08/2019 19:39 EDT A/G Ratio 0.8 (Low) 07/09/2019 04:17 EDT A/G Ratio 0.8 (Low) 07/08/2019 19:39 EDT Bilirubin Total 0.3 mg/dL 07/09/2019 04:17 EDT Bilirubin Total 0.4 mg/dL 07/08/2019 19:39 EDT Alk Phos 69 Units/Liter 07/09/2019 04:17 EDT Alk Phos 63 Units/Liter 07/08/2019 19:39 EDT AST 16 Units/Liter 07/09/2019 04:17 EDT AST 17 Units/Liter 07/08/2019 19:39 EDT ALT 23 Units/Liter 07/09/2019 04:17 EDT ALT 21 Units/Liter 07/08/2019 19:39 EDT Device Comment 1 Protocols Followed 07/09/2019 07:10 EDT Glucose POC2 178 mg/dL (High) 07/09/2019 11:45 EDT Glucose POC2 206 mg/dL (High) 07/09/2019 07:10 EDT CRP 1.6 mg/dL (High) 07/08/2019 19:39 EDT WBC 7.9 K/uL 07/09/2019 04:17 EDT WBC 9.1 K/uL 07/08/2019 19:39 EDT RBC 4.40 Million/uL 07/09/2019 04:17 EDT RBC 4.25 Million/uL 07/08/2019 19:39 EDT Hgb 12.6 g/dL 07/09/2019 04:17 EDT Hgb 12.0 g/dL 07/08/2019 19:39 EDT Hct 39.8 % 07/09/2019 04:17 EDT Hct 37.3 % 07/08/2019 19:39 EDT MCV 90.5 fL 07/09/2019 04:17 EDT MCV 87.8 fL 07/08/2019 19:39 EDT MCH 28.6 pg 07/09/2019 04:17 EDT MCH 28.2 pg 07/08/2019 19:39 EDT MCHC 31.7 Gram/dL (Low) 07/09/2019 04:17 EDT MCHC 32.2 Gram/dL 07/08/2019 19:39 EDT Platelet Count 267 K/uL 07/09/2019 04:17 EDT Platelet Count 268 K/uL 07/08/2019 19:39 EDT MPV 9.2 fL (Low) 07/09/2019 04:17 EDT MPV 9.3 fL (Low) 07/08/2019 19:39 EDT RDW 13.2 % 07/09/2019 04:17 EDT RDW 13.2 % 07/08/2019 19:39 EDT Neut % 49.2 % 07/09/2019 04:17 EDT Neut % 48.5 % 07/08/2019 19:39 EDT Neut # 3.88 K/uL 07/09/2019 04:17 EDT Neut # 4.41 K/uL 07/08/2019 19:39 EDT Lymph % 39.1 % 07/09/2019 04:17 EDT Lymph % 39.7 % 07/08/2019 19:39 EDT Lymph # 3.08 x10(3)/uL 07/09/2019 04:17 EDT Lymph # 3.62 x10(3)/uL 07/08/2019 19:39 EDT Inyo % 8.4 % 07/09/2019 04:17 EDT In[place] % 8.1 % 07/08/2019 19:39 EDT Inyo # 0.66 K/uL 07/09/2019 04:17 EDT In[place] # 0.74 K/uL 07/08/2019 19:39 EDT Eos % 2.2 % 07/09/2019 04:17 EDT Eos % 2.6 % 07/08/2019 19:39 EDT Eos # 0.17 x10(3)/uL 07/09/2019 04:17 EDT Eos # 0.24 x10(3)/uL 07/08/2019 19:39 EDT Baso % 0.8 % 07/09/2019 04:17 EDT Baso % 0.7 % 07/08/2019 19:39 EDT Baso # 0.06 x10(3)/uL 07/09/2019 04:17 EDT Baso # 0.06 x10(3)/uL 07/08/2019 19:39 EDT Sed Rate Auto 48 mm/Hr (High) 07/08/2019 23:26 EDT Sed Rate Auto 48 mm/Hr (High) 07/08/2019 19:39 EDT Slide Review No 07/09/2019 04:17 EDT Slide Review No 07/08/2019 19:39 EDT IG# 0.02 x10(3)/uL 07/09/2019 04:17 EDT IG# 0.04 x10(3)/uL 07/08/2019 19:39 EDT IG% 0.30 % 07/09/2019 04:17 EDT IG% 0.40 % 07/08/2019 19:39 EDT PT 9.9 Second(s) 07/09/2019 04:17 EDT PT 10.1 Second(s) 07/08/2019 19:39 EDT INR 0.9 07/09/2019 04:17 EDT INR 0.9 07/08/2019 19:39 EDT PTT 28.0 Second(s) 07/08/2019 19:39 EDT Urine Type. U CleanCatch 07/08/2019 19:39 EDT Urine Color YELLOW2 07/08/2019 19:39 EDT Urine Appearance ERROR 07/08/2019 19:39 EDT Urine Specific [facility] 1.013 07/08/2019 19:39 EDT Urine pH Dipstick 5.5 (Low) 07/08/2019 19:39 EDT Urine Leukocyte Esterase MODERATE2 (Abnormal) 07/08/2019 19:39 EDT Urine Nitrite NEGATIVE2 07/08/2019 19:39 EDT Urine Protein Dipstick NEGATIVE2 07/08/2019 19:39 EDT Urine Glucose Dipstick NEGATIVE2 07/08/2019 19:39 EDT Urine Ketones Dipstick NEGATIVE2 07/08/2019 19:39 EDT Urine Urobilinogen Dipstick 0.2 07/08/2019 19:39 EDT Urine Bilirubin Dipstick NEGATIVE2 07/08/2019 19:39 EDT Urine Blood Dipstick NEGATIVE2 07/08/2019 19:39 EDT Ur RBC 0-2 (Abnormal) 07/08/2019 19:39 EDT Ur WBC 5-10 (Abnormal) 07/08/2019 19:39 EDT Ur Squamous Epithelial Cells 5-10 (Abnormal) 07/08/2019 19:39 EDT Ur Transitional Epi Cells 2-5 (Abnormal) 07/08/2019 19:39 EDT TSH 2.800 mcInt Units/mL 07/08/2019 23:26 EDT documented in this encounter Plan of Treatment Not on file documented as of this encounter Visit Diagnoses Not on filedocumented in this encounter
--- OUTSIDE RECORDS SUMMARY | 2025-07-29 11:56 | XMS_ITS | Encounter Summary ---
Author Organization [employer] ([place], [place], [place], [place]) Address [address] [place] [address] Care Team Providers Care Burial Agent Name Role Phone Unavailable Primary Care Provider Unavailabl e Encounter Details Date Type Department Care Team (Late st Contact Info) Description 07/26/2019 Transcribed Document [facility] [place] Family Medicine [address] [place] [address] ProviderChano MD [address], [place] [id number] Social History Tobacco Use Types Packs/Day Years Used Date Smoking Tobacco: Never Assessed Comments Unknown Sex and Gender Information Value Date Recorded Sex Assigned at Not on file Legal Sex Female 2:07 PM CDT Gender Identity Not on file Sexual Orientation Not on file documented as of this encounter Miscellaneous Notes * Cerner Conversion Note - Historical ProviderMD - 07/26/2019 3:00 AM CDT Nutrition Assessment Entered On: 07/26/2019 13:37 EDT Performed On: 07/26/2019 3:00 EDT by JH LUND RD, ERICK Nutrition Assessment Nutrition Assessment Reason : Follow Up JH LUND RD, ERICK - 07/26/2019 13:37 EDT Nutrition Recommendations Dietitian Recommendations : 07/26 Rescreen: Hosp course reviewed. Pt tolerating 60CHO diet well (>75% most meals) and BG levels have improved some. D/C plans in progress for placement. Labs assessed, skin wnls, meds reviewed. No nutrl diagnosis at this time; will rescreen x 7-10 days/prn. 07/19: Rescreen. Pt remains on Regular diet. [...] rescreen in 7-10 days or available prn. Nutrition Care Level : No nutritional risk JH LUND RD, LD - 07/26/2019 13:37 EDT documented in this encounter Plan of Treatment Not on file documented as of this encounter Visit Diagnoses Not on filedocumented in this encounter
--- OUTSIDE RECORDS SUMMARY | 2025-07-29 11:56 | XMS_ITS | Encounter Summary ---
Author Organization [employer] ([place], [place], [place], [place]) Address [address] [place] [address] Care Team Providers Care Public Health Outreach Worker Name Role Phone Unavailable Primary Care Provider Unavailabl e Encounter Details Date Type Department Care Team (Late st Contact Info) Description 07/28/2019 Transcribed Document [facility] [place] [facility] [place] [address] ProviderChano MD [address], [place] [phone] Social History Tobacco Use Types Packs/Day Years Used Date Smoking Tobacco: Never Assessed Comments Unknown Sex and Gender Information Value Date Recorded Sex Assigned at Not on file Legal Sex Female 2:07 PM CDT Gender Identity Not on file Sexual Orientation Not on file documented as of this encounter Miscellaneous Notes * Cerner Conversion Note - Chano ProviderMD - 07/28/2019 4:35 PM CDT Nursing Discharge Summary Entered On: 07/28/2019 16:35 EDT Performed On: 07/28/2019 16:35 EDT by Shani Dewitt RN Discharge Documentation Discharge Date/Time : 07/28/2019 15:30 EDT Patient Disposition, General : Discharge Discharge To : Home with ambulatory/outpatient follow-up Name of Receiving Facility/Provider : Referrals faxed to [facility] facilities for consideration for inpt treatment. Mode Of Departure, General Discharge : Private vehicle Accompanied By, Discharge : Daughter, Spouse IV Discontinued : Yes Prescriptions Given to Patient : Yes Discharge Instructions Reviewed With, Opportunity For Questions Given : Patient, Daughter, Spouse Patient Education Completed : Yes Number of Prescriptions Given : 6 Teaching Method : Explanation Teaching Evaluation : Needs reinforcement Education Comment : reorientation to surroundings Shani Dewitt RN - 07/28/2019 16:35 EDT documented in this encounter Plan of Treatment Not on file documented as of this encounter Visit Diagnoses Not on filedocumented in this encounter
--- OUTSIDE RECORDS SUMMARY | 2025-07-29 11:56 | XMS_ITS | Encounter Summary ---
Author Organization [employer] ([place], [place], [place], [place]) Address [address] [place] [address] Care Team Providers Care Chain Repairer Name Role Phone Unavailable Primary Care Provider Unavailabl e Encounter Details Date Type Department Care Team (Late st Contact Info) Description 07/28/2019 Transcribed Document [facility] [place] Family Medicine [address] [place] [address] ProviderChano MD [address], [place] [phone] Social History Tobacco Use Types Packs/Day Years Used Date Smoking Tobacco: Never Assessed Comments Unknown Sex and Gender Information Value Date Recorded Sex Assigned at Not on file Legal Sex Female 2:07 PM CDT Gender Identity Not on file Sexual Orientation Not on file documented as of this encounter Miscellaneous Notes * Cerner Conversion Note - Chano Gatica MD - 07/28/2019 2:06 PM CDT Patient: LUDY ANTONIO Age: 68 [...] epithelial cells. Urine culture was positive for 10???[id number] CFU/mL. CT of the L-spine was negative. [...] or confusion. ROS and hx discussed with [id number], has had ceofusion and fever last 2 [...] pain Hx limited CURRAN discussed with staff 07/28 - co back pain no fever or chills Allergies:Allergies (1) Active Reaction Avandia CHF Medications:Medications [...] fluticasone nasal (Flonase) - 1 Puff, Nasal, [place], Daily, Routine miconazole topical (Desenex AF 2% [...] 24 hrs) Last Charted Minimum Maximum Temp 97.2 (JUL 28:) 97.2 (JUL 28 10:27) 98 (JUL 27 16:00) Apical HR 60 (JUL 28 08:16) L 55 (JUL 27 21:35) 60 (JUL 28 08:16) Mon HR 81 (JUL 28 10:27) 55 (JUL 27 21:26) 81 (JUL 28 10:27) Resp Rate 17 (JUL 28:) 16 (JUL 27 18:30) 18 (JUL 28 05:56) SBP 116 (JUL 28 10:27) 111 (JUL 27 16:00) H 141 (JUL 27 18:30) DBP 87 (JUL 28 10:27) L 42 (JUL 27 16:00) 87 (JUL 28 10:27) MAP 101 (JUL 28 10:27) 57 (JUL 27 16:00) 101 (JUL 28 10:27) SpO2 95 (JUL 28 10:27) 94 (JUL 27 16:00) 95 (JUL 28 10:27) Exam: Gen NAD lethargic early this am HEENT: [place] NECK: LYMPH: RESP: Nonlabored breathing CV: RRR, no murmurs, gallops, or rubs. No edema GI: soft, nontender, nondistended, : No garcia in place MS: no rash SKIN: No lesions NEURO: walking, gait grossly normal. back incision looks OK no redness or induration PSYCH : interactive 07/28 - Walking in room No back drainage no rash Labs:Labs (Last four charted values) WBC 8.8 (JUL 27) 7.2 (JUL 17) 8.4 (JUL 16) 7.2 (JUL 18) HB 11.9 (JUL 27) 11.7 (OCT 17) 11.6 (OCT 16) 11.3 (OCT 13) HCT 38.1 (JUL 27) 40.4 (OCT 17) 37.0 (OCT 16) 35.4 (JUL 13) Plt 311 (JUL 27) 241 (JUL 17) 273 (JUL 16) 277 (JUL 13) Na 138 (JUL 27) 137 (JUL 17) 141 (JUL 16) 143 (JUL 13) K 4.9 (JUL 27) 4.2 (JUL 17) 3.7 (JUL 16) 4.1 (JUL 18) Cl 105 (JUL 27) 107 (JUL 17) 107 (OCT 16) 106 (JUL 13) CO2 26 (JUL 27) 24 (JUL 17) 29 (JUL 16) 30 (JUL 18) BUN H 29 (JUL 27) H 24 (JUL 17) H 27 (JUL 16) H 23 (JUL 18) Cr H 1.20 (JUL 27) H 1.06 (JUL 17) 1.00 (JUL 16) 1.00 (JUL 13) Glu R H 207 (JUL 27) H 172 (JUL 17) H 134 (JUL 16) H 213 (JUL 18) Ca 9.5 (JUL 27) 9.0 (OCT 17) 9.1 (OCT 16) 9.4 (JUL 13) PT 9.9 (JUL 09) 10.1 (JUL 08) INR 0.9 (JUL 09) 0.9 (JUL 03) PTT 28.0 (JUL 03) AST 20 (JUL 27) 15 (OCT 16) 18 (JUL 12) 16 (JUL 04) ALT 24 (JUL 27) 24 (JUL 16) 25 (JUL 07) 23 (JUL 04) ALK P 56 (JUL 27) 56 (JUL 16) 56 (JUL 07) 69 (JUL 04) T Bili L 0.1 (JUL 27) [...] low (negative cobalt) - Increasing confusion - better watch off antibiotics Follow cultures Follow labs UM discussed with KHARI Telegraph Installer ESR slightly up documented in this encounter Plan of Treatment Not on file documented as of this encounter Visit Diagnoses Not on filedocumented in this encounter
--- OUTSIDE RECORDS SUMMARY | 2025-07-29 11:56 | XMS_ITS | Encounter Summary ---
Author Organization [employer] ([place], [place], [place], [place]) Address [address] [place] [address] Care Team Providers Care Chemistry Associate Name Role Phone Unavailable Primary Care Provider Unavailabl e Encounter Details Date Type Department Care Team (Late st Contact Info) Description 07/10/2019 Transcribed Document [facility] [place] Family Medicine [address] [place] [address] ProviderChano MD [address] [place], [place] [phone] Social History Tobacco Use Types Packs/Day Years Used Date Smoking Tobacco: Never Assessed Comments Unknown Sex and Gender Information Value Date Recorded Sex Assigned at Not on file Legal Sex Female 2:07 PM CDT Gender Identity Not on file Sexual Orientation Not on file documented as of this encounter Miscellaneous Notes * Cerner Conversion Note - Chano Gatica MD - 07/10/2019 1:40 PM CDT Patient: LUDY ANTONIO Age: 68 [...] epithelial cells. Urine culture was positive for 10???[id number] CFU/mL. CT of the L-spine was negative. [...] had ceofusion and fever last 2 weeks. Allergies:Allergies (1) Active Reaction Avandia CHF Medications:Medications by Classification Antimicrobials piperacillin-tazobactam + Sodium Chloride 0.9% intravenous s - 3.375 Gram, IV Piggyback, Q6HInt, infuse over 3 Hour(s), Routine DAPTOmycin + Sodium Chloride 0.9% intravenous solution 50 mL - 700 mg, IV Piggyback, [id number], infuse over 30 Minute(s), Routine Cardiovascular metoprolol (metoprolol tartrate) - 6.25 [...] Daily, PRN for Constipation, Routine Endocrine insulin lispro (insulin lispro sliding scale) - Scale A:, SubCutaneous, Inj, AC and at Bedtime, Routine Psych DULoxetine (Cymbalta) - 60 mg, Oral, Cap, At Bedtime, Routine HEENT fluticasone nasal (Flonase) - 1 Puff, Nasal, [place], Daily, Routine Pain Meds morphine - 2 [...] 21:37) 98 (JUL 09 21:37) Mon HR 80 (JUL 10 10:07) 66 (JUL 09 20:48) 89 (JUL 10 01:26) Resp Rate 16 (JUL 10 10:07) 14 (JUL 09 16:25) H 48 (JUL 09 15:25) SBP 137 (JUL 10 10:07) 115 (JUL 09 18:24) H 195 (JUL 09 15:30) DBP L 56 (JUL 10 10:07) L 51 (JUL 09 18:24) H 93 (JUL 09 15:30) MAP 91 (JUL 10 10:07) 66 (JUL 09 18:24) 133 (JUL 09 15:30) SpO2 96 (JUL 10 06:23) L 87 (JUL 09 16:05) 100 (JUL 09 15:15) Exam: Gen: Alert, cooperative, confused HEENT: sclera [place] NECK: Supple, [...] SKIN: No eruptions, lesions, or rashes NEURO: Groggy in RR PSYCH: seems a bit confused Labs:Labs (Last four charted values) WBC 7.9 (JUL 09) 9.1 (JUL 08) HB 12.6 (JUL 09) 12.0 (JUL 08) HCT 39.8 (JUL 09) 37.3 (JUL 08) Plt 267 (JUL 09) 268 (JUL 08) Na 142 (JUL 09) 141 (JUL 03) K 4.4 (JUL 09) 3.9 (JUL 03) Cl 106 (JUL 09) 105 (JUL 03) CO2 27 (JUL 09) 30 (JUL 03) [...] Micro: Rad: Radiology Results (Last 48 hours) [id number] -- 07/08/2019 21:23 CT Spine Lumbar WO [...] by Dr. Judah Christine.Transcribed by Franc Michel PA-C. 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
--- OUTSIDE RECORDS SUMMARY | 2025-07-29 11:56 | XMS_ITS | Encounter Summary ---
Author Organization [employer] ([place], [place], [place], [place]) Address [address] [place] [address] Care Team Providers Care Computer Programmer Chief Name Role Phone Unavailable Primary Care Provider Unavailabl e Encounter Details Date Type Department Care Team (Late st Contact Info) Description 07/27/2019 Transcribed Document [facility] [place] [address] [place] [address] ProviderChano MD [address] [place], [place] [phone] Social History Tobacco Use Types Packs/Day Years Used Date Smoking Tobacco: Never Assessed Comments Unknown Sex and Gender Information Value Date Recorded Sex Assigned at Not on file Legal Sex Female 2:07 PM CDT Gender Identity Not on file Sexual Orientation Not on file documented as of this encounter Miscellaneous Notes * Cerner Conversion Note - Historical ProviderMD - 07/27/2019 2:00 AM CDT Chick Sexer Details Entered On: 07/27/2019 0:37 EDT Performed On: 07/27/2019 2:00 EDT by Debbie Lewis RN Order Details Transport Mode Order Detail : Wheelchair Isolation Precautions Order Detail : Standard Precautions Order Detail : 0 IV Order Detail : 1 Oxygen Order Detail : 0 Nurse Collect Order Detail : 0 Lift/Transfer : Maximal assist Central Line Order Detail : No Room Service : Needs Assistance Arterial Line : No Debbie Lewis RN - 07/27/2019 0:37 EDT documented in this encounter Plan of Treatment Not on file documented as of this encounter Visit Diagnoses Not on filedocumented in this encounter
--- OUTSIDE RECORDS SUMMARY | 2025-07-29 11:56 | XMS_ITS | Encounter Summary ---
Author Organization [employer] ([place], [place], [place], [place]) Address [address] [place] [address] Care Team Providers Care Whiteprinting Machine Operator Name Role Phone Unavailable Primary Care Provider Unavailabl e Encounter Details Date Type Department Care Team (Late st Contact Info) Description 07/09/2019 Transcribed Document [facility] [place] Family Medicine [address] [place] [address] ProviderChano MD [address], [place] [id number] Social History Tobacco Use Types Packs/Day Years Used Date Smoking Tobacco: Never Assessed Comments Unknown Sex and Gender Information Value Date Recorded Sex Assigned at Not on file Legal Sex Female 2:07 PM CDT Gender Identity Not on file Sexual Orientation Not on file documented as of this encounter Miscellaneous Notes * Cerner Conversion Note - Chano Gatica MD - 07/09/2019 1:29 PM CDT Patient: LUDY ANTONIO Age: 68 [...] epithelial cells. Urine culture was positive for 10???[id number] CFU/mL. CT of the L-spine was negative. No listed allergies to antibiotics. She is currently receiving Ancef 2 g IV therapy and ID has been counseled for further evaluation and treatment as well as antimicrobial therapy management. seen and agree no Hx at this point as in RR Allergies:Allergies (1) Active Reaction Avandia CHF Medications:Medications by Classification Antimicrobials ceFAZolin (Ancef) - 2 Gram, IV Piggyback, Inj, PREOP, infuse over 30 Minute(s), STAT Cardiovascular metoprolol (metoprolol tartrate) - 6.25 mg, [...] - 100 mg, Oral, Cap, BID, Routine polyethylene glycol 3350 (MiraLax) - 17 Gram, Oral, Powder, Daily, PRN for Constipation, Routine Endocrine insulin lispro (insulin lispro sliding scale) - Scale A:, SubCutaneous, Inj, AC and at Bedtime, Routine Psych DULoxetine (Cymbalta) - 60 mg, Oral, Cap, At Bedtime, Routine HEENT fluticasone nasal (Flonase) - 1 Puff, Nasal, [place], Daily, Routine Pain Meds HYDROmorphone (Dilaudid) - 0.25 mg, IV Push, Inj, Q2H, PRN for Pain (Severe 7-10), Routine oxyCODONE - 10 mg, Oral, Tab, Q6H, PRN for Pain (Moderate 4-6), Routine acetaminophen (Tylenol) - 650 mg, Oral, Tab, Q4H, PRN for Pain (Mild 1-3), Routine Undefined Medications lidocaine (lidocaine 1% preservative-free injectable solutio - 0.5 mL, IntraDermal, Inj, 1-Time Past Medical History: Active Problems (24) Acid [...] 24 hrs) Last Charted Minimum Maximum Temp 99.7 (JUL 09 13:02) 98.0 (JUL 09 01:09) 99.7 (JUL 09:02) Periph HR 95 (JUL 09 13:02) 64 (JUL 09 04:00) 95 (JUL 09 13:02) Resp Rate 16 (JUL 09 13:02) L 12 (JUL 09 04:00) 18 (JUL 08 14:54) SBP H 147 (JUL 09 13:02) 139 (OCT 04 04:00) H 147 (JUL 09 13:02) DBP 65 (JUL 09 13:02) 65 (JUL 09 13:02) H 98 (JUL 09 07:08) SpO2 L 92 (JUL 09 13:02) L 92 (JUL 08 14:54) 94 (JUL 09 04:00) Exam: Gen: groggy in RR HEENT: sclera [place] NECK: Supple, no masses [...] or rashes NEURO: Groggy in RR PSYCH: Can't evaluate Labs:Labs (Last four charted values) WBC 7.9 [...] Micro: Rad: Radiology Results (Last 48 hours) [id number] -- 07/08/2019 21:23 CT Spine Lumbar WO [...] a synovial cystimpinging on the thecal sac. 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
--- OUTSIDE RECORDS SUMMARY | 2025-07-29 11:57 | XMS_ITS | Encounter Summary ---
Author Organization [employer] ([place], [place], [place], [place]) Address [address] [place] [address] Care Team Providers Care Tape Deck Installer Name Role Phone Unavailable Primary Care Provider Unavailabl e Encounter Details Date Type Department Care Team (Late st Contact Info) Description 07/27/2019 Transcribed Document [facility] [place] [address] [place] [address] ProviderChano MD [address] [place], [place] [phone] Social History Tobacco Use Types Packs/Day Years Used Date Smoking Tobacco: Never Assessed Comments Unknown Sex and Gender Information Value Date Recorded Sex Assigned at Not on file Legal Sex Female 2:07 PM CDT Gender Identity Not on file Sexual Orientation Not on file documented as of this encounter Miscellaneous Notes * Cerner Conversion Note - Chano ProviderMD - 07/27/2019 11:20 AM CDT Admission History, Adult Entered On: 07/27/2019 11:21 EDT Performed On: 07/27/2019 11:20 EDT by Shani Dewitt RN Advance Directive Patient has Advance Directive *Q : No, patient refuses Advance Directive information Shani Dewitt RN - 07/27/2019 11:20 EDT General Info Preferred Name : Adrienne Arrived From : Home Mode of Arrival on Unit : Ambulatory Legal Guardian : Responsible adult Legal Guardian : No Support Person/Patient Dairy Grazer : No Support Person/Pt Rep Name : kian Savage - spouse Alma Rosa Zepeda [phone] Contact Password : Ramiro jones Support Person/Pt Rep Contact Information : [phone] Want Family/Rep/Phys Notified of Admit : No Emergency Contact #1 : Kian Savage Emergency Contact #1 Emergency Contact #1 Relationship : spouse Emergency Contact #2 : Alma Rosa Zepeda Emergency Contact #2 Emergency Contact #2 Relationship : dgt Chief Complaint : pt had back surgery (L3-L4) apx 1 month ago, nausea but no vomiting, back pain /. took 10mg oxycodone at 1330 today. Information Obtained From : Patient Primary Language : Turkmen Preferred Communication Mode : Verbal Communication Barrier : None Shani Dewitt RN - 07/27/2019 11:20 EDT documented in this encounter Plan of Treatment Not on file documented as of this encounter Visit Diagnoses Not on filedocumented in this encounter
--- OUTSIDE RECORDS SUMMARY | 2025-07-29 11:57 | XMS_ITS | Encounter Summary ---
Author Organization [employer] ([place], [place], [place], [place]) Address [address] [place] [address] Care Team Providers Care Administrative Services Specialist Name Role Phone Unavailable Primary Care Provider Unavailabl e Encounter Details Date Type Department Care Team (Late st Contact Info) Description 07/09/2019 Transcribed Document [facility] [place] Family Medicine [address] [place] [address] ProviderChano MD [address], [place] [id number] Social History Tobacco Use Types Packs/Day Years Used Date Smoking Tobacco: Never Assessed Comments Unknown Sex and Gender Information Value Date Recorded Sex Assigned at Not on file Legal Sex Female 2:07 PM CDT Gender Identity Not on file Sexual Orientation Not on file documented as of this encounter Miscellaneous Notes * Cerner Conversion Note - Chano Gatica MD - 07/09/2019 9:25 AM CDT Consult Phone Call Documentation Entered On: 07/09/2019 10:36 EDT Performed On: 07/09/2019 9:25 EDT by Nahomy Kim, RN Phone Call for Consults Consult Reason : Discitis Provider Service Notified Name : Infectious Disease Physician Covering for Consult : SHANNON SLADE MD-INF Date and Time Call Returned : 07/09/2019 10:09 EDT Nahomy Kim, RN - 07/09/2019 10:36 EDT Electronically signed by Julian Wheeler Conversion Special Collections Librarian Januaryner at 01/23/2023 1:21 PM CDT documented in this encounter Plan of Treatment Not on file documented as of this encounter Visit Diagnoses Not on filedocumented in this encounter
--- OUTSIDE RECORDS SUMMARY | 2025-07-29 11:57 | XMS_ITS | Encounter Summary ---
Author Organization [employer] ([place], [place], [place], [place]) Address [address] [place] [address] Care Team Providers Care Multi Craft Maintenance Technician Name Role Phone Unavailable Primary Care Provider Unavailabl e Encounter Details Date Type Department Care Team (Late st Contact Info) Description 07/24/2019 Transcribed Document [facility] [place] Family Medicine [address] [place] [address] ProviderChano MD [address] [place], [place] [phone] Social History Tobacco Use Types Packs/Day Years Used Date Smoking Tobacco: Never Assessed Comments Unknown Sex and Gender Information Value Date Recorded Sex Assigned at Not on file Legal Sex Female 2:07 PM CDT Gender Identity Not on file Sexual Orientation Not on file documented as of this encounter Miscellaneous Notes * Cerner Conversion Note - Historical ProviderMD - 07/24/2019 10:29 AM CDT Attempt to Treat, PT Entered On: 07/24/2019 10:29 EDT Performed On: 07/24/2019 10:29 EDT by NIRMAL MEDRANO, PT Attempt to Treat Unable to Treat Due To : Patient Refusal Inability to Treat Comment : Refused d/t trouble with bowel movement; patient seemed very confused Notification : NIRMAL Melendez, PT - 07/24/2019 10:29 EDT documented in this encounter Plan of Treatment Not on file documented as of this encounter Visit Diagnoses Not on filedocumented in this encounter
--- OUTSIDE RECORDS SUMMARY | 2025-07-29 11:57 | XMS_ITS | Encounter Summary ---
Author Organization [employer] ([place], [place], [place], [place]) Address [address] [place] [address] Care Team Providers Care Social And Political Studies Professor Name Role Phone Unavailable Primary Care Provider Unavailabl e Encounter Details Date Type Department Care Team (Late st Contact Info) Description 07/26/2019 Transcribed Document [facility] Radiology [address] [place] [address] Abby Reid MD [address] [place] [address] [place] [address] Social History Tobacco Use Types Packs/Day Years Used Date Smoking Tobacco: Never Assessed Comments Unknown Sex and Gender Information Value Date Recorded Sex Assigned at Not on file Legal Sex Female 2:07 PM CDT Gender Identity Not on file Sexual Orientation Not on file documented as of this encounter Miscellaneous Notes * Cerner Conversion Note - Abby Reid MD - 07/26/2019 11:50 AM EDT Patient: LUDY ANTONIO Age: 68 years Sex: Female : 1950 Associated Diagnoses: None Author: ABBY REID MD-INT Subjective Discharge Summary Date of Admission: 07/11/2019 DATE OF DISCHARGE: 07/26/2019 PRIMARY CARE PHYSICIAN: Dr. Jordan Lopez. CONSULTATION [...] Infectious Disease, which has since been discontinued. Discharge Medications (16) Active Aciphex 20 mg, Oral, BID Advair Diskus 250 mcg-50 mcg inhalation powder 1 Puff, PRN, Inhalation, Daily Centrum 1 Tab, Oral, Daily Cymbalta 60 mg oral delayed release capsule 60 mg = 1 Cap, Oral, At Bedtime Flonase 0.05 mg/inh nasal spray 2 [place], Nasal, Daily gabapentin 300 mg oral capsule [...] as family members. FINAL DISPOSITION: Discharged to [facility] facility. Please note greater than 30 minutes [...] chew) Flonase 0.05 mg/inh nasal spray: 2 [place], Nasal, Daily, 16 Gram, 0 Refill(s) Lantus [...] Bedtime Flonase 0.05 mg/inh nasal spray 2 [place], Nasal, Daily gabapentin 300 mg oral capsule [...] Problem list: Medical Pain//chronic / SNOMED CT 665168750 / Confirmed At risk for sleep apnea / IMO 00038602 / Confirmed Back pain / SNOMED CT 3584680300 / Confirmed Cataract///beginning stage / SNOMED CT 037457282 / Confirmed Chest pain///cath negative / SNOMED CT 22569730 / Confirmed Completely occulded L carotid / SNOMED CT 2847555684 / Confirmed Lumbar disc disease / SNOMED CT 0472285211 / Confirmed Fibromyalgia / SNOMED CT 208286497 / Confirmed Hiatal hernia / SNOMED CT 816467803 / Complaint of H/O ischemic left MCA stroke / SNOMED CT 0662802401 / Confirmed Memory deficit///slow recall / SNOMED CT 5581189203 / Confirmed Numbness and tingling//right leg / SNOMED CT 1666696559 / Confirmed Obesity / SNOMED CT 7271270174 / Confirmed Right leg pain / SNOMED CT 3968180926 / Confirmed Colon polyps / SNOMED CT 438358792 / Confirmed Sleep apnea///risk / SNOMED CT 990469181 / Confirmed Wears glasses / SNOMED CT 018185510 / Confirmed, Active Problems (24) Acid reflux [...] 17) 8.4 (JUL 16) 7.2 (JUL 13) 8.4 (JUL 07) HB 11.7 (OCT 17) 11.6 (OCT 16) 11.3 (OCT 13) 11.5 (JUL 07) HCT 40.4 (JUL 17) 37.0 (OCT 16) 35.4 (OCT 13) 35.7 (JUL 07) Plt 241 (OCT 17) 273 (OCT 16) 277 (OCT 13) 263 (OCT 07) Na 137 (OCT 17) 141 (OCT 16) 143 (OCT 13) 142 (JUL 07) K 4.2 (JUL 17) 3.7 (OCT 16) 4.1 (OCT 13) 3.8 (OCT 07) Cl 107 (OCT 17) 107 (OCT 16) 106 (OCT 13) 104 (JUL 07) CO2 24 (JUL 17) 29 (OCT 16) 30 (JUL 13) 31 (JUL 07) BUN H 24 (JUL 17) H 27 (OCT 16) H 23 (OCT 13) 14 (OCT 07) Cr H 1.06 (OCT 17) 1.00 (OCT 16) 1.00 (OCT 13) 0.90 (OCT 07) Glu R H 172 (JUL 17) H 134 (OCT 16) H 213 (OCT 13) H 202 (JUL 07) Ca 9.0 (OCT 17) 9.1 (OCT 16) 9.4 (OCT 13) 9.0 (OCT 07) PT 9.9 (JUL 04) 10.1 (JUL 03) INR 0.9 (JUL 04) 0.9 (JUL 03) PTT 28.0 (OCT 03) AST 15 (OCT 16) 18 (OCT 07) 16 (OCT 04) 17 (OCT 03) ALT 24 (OCT 16) 25 (OCT 07) 23 (OCT 04) 21 (OCT 03) ALK P 56 (OCT 16) 56 (JUL 07) 69 (OCT 04) 63 (OCT 03) T Bili 0.3 (JUL 21) 0.3 (JUL 12) 0.3 (JUL 09) 0.4 (JUL 08) PTN L 6.2 (JUL 21) 6.7 (JUL 12) 7.1 (JUL 09) 7.0 (JUL 08) ALB L 2.7 (JUL 21) L 2.8 (JUL 12) L 3.1 (JUL 09) L 3.2 (JUL 08) No Radiology Results Found documented in this encounter Plan of Treatment Not on file documented as of this encounter Visit Diagnoses Not on filedocumented in this encounter
--- OUTSIDE RECORDS SUMMARY | 2025-07-29 11:57 | XMS_ITS | Encounter Summary ---
Author Organization [employer] ([place], [place], [place], [place]) Address [address] [place] [address] Care Team Providers Care Emergency Care Attendant Name Role Phone Unavailable Primary Care Provider Unavailabl e Encounter Details Date Type Department Care Team (Late st Contact Info) Description 07/27/2019 Transcribed Document [facility] [place] [address] [place] [address] Chano Gatica MD [address], [place] [phone] Social History Tobacco Use Types Packs/Day Years Used Date Smoking Tobacco: Never Assessed Comments Unknown Sex and Gender Information Value Date Recorded Sex Assigned at Not on file Legal Sex Female 2:07 PM CDT Gender Identity Not on file Sexual Orientation Not on file documented as of this encounter Miscellaneous Notes * Cerner Conversion Note - Chano ProviderMD - 07/27/2019 1:46 PM CDT Patient: LUDY ANTONIO Age: 68 Years Sex: Female : 1950 Subjective Patient sitting in a chair in street clothes. Currently being interviewed by a [facility] outbound telemarketing representative. Review of Systems Heme - on Lovenox for DVT prevention Objective Vitals & Measurements T: 36.7 ??C TMIN: 36.4 ??C TMAX: 36.8 ??C HR: 67(Monitored) RR: 17 BP: 108/68 SpO2: 91% Physical Exam Well developed female. Speech - fluent Tells me that we are at [facility]. Assessment/Plan Ludy Antonio is a 68-year-old female with diabetes, cerebrovascular disease, an occluded left carotid artery, back pain as well as multiple orthopedic procedures and chronic gait disorder, who has had at least a three month history of encephalopathy. She currently is hospitalized after having recurrent back surgery on right L3-4 on July 08. She has been having problems with encephalopathy after her surgery. She was placed on Depakote on the . On September 21 , I stopped Depakote as she seemed groggy and family reported declining function. The patient has seemed more alert during my last two visits . The differential for her encephalopathy could include one or a combination of the followin. An underlying psychiatric illness or neurodegenerative disease . 2. Side effects of medications. 3. A SWEATBAND DRUMMER infection. 4. Cerebrovascular disease. 5. Seizures - less likely Even though I do not know the exact cause of her encephalopathy , I am suspicious that there is an underlying psychiatric illness contributing to her encephalopathy . RECOMMENDATIONS: At this time, I am recommending the following. 1. I agree with Seroquel trial . 2. At discharge, she should follow up with her outpatient neurologist , Dr. Núñez. 3. No driving until released by a physician. 4. Continue supportive care. Will follow intermittently . Medications Inpatient Cymbalta, 60 mg= 2 Cap, [...] IV Push, Q4H, PRN Electronically signed by Julian Wheeler Conversion Nuisance Wildlife Control Operator Cerner at 01/23/2023 1:13 PM CDT documented in this encounter Plan of Treatment Not on file documented as of this encounter Visit Diagnoses Not on filedocumented in this encounter
--- OUTSIDE RECORDS SUMMARY | 2025-07-29 11:57 | XMS_ITS | Encounter Summary ---
Author Organization [employer] ([place], [place], [place], [place]) Address [address] [place] [address] Care Team Providers Care Property Loss Insurance Claim Adjuster Name Role Phone Unavailable Primary Care Provider Unavailabl e Encounter Details Date Type Department Care Team (Late st Contact Info) Description 07/09/2019 Transcribed Document [facility] Family Medicine [address] [place] [address] ProviderChano MD [address] [place], [place] [phone] Social History Tobacco Use Types Packs/Day Years Used Date Smoking Tobacco: Never Assessed Comments Unknown Sex and Gender Information Value Date Recorded Sex Assigned at Not on file Legal Sex Female 2:07 PM CDT Gender Identity Not on file Sexual Orientation Not on file documented as of this encounter Miscellaneous Notes * Cerner Conversion Note - Historical ProviderMD - 07/09/2019 4:17 PM CDT Pain Assessment Entered On: 07/12/2019 3:03 EDT Performed On: 07/11/2019 20:41 EDT by MATTHEW VILLALOBOS RN Intervention Information: morphine Performed by MATTHEW VILLALOBOS RN on 07/11/2019 20:11:00 EDT morphine,2mg IV Push,Peripheral Line 1,Pain (Severe 7-10) Pain Assessment Pain Assessment : Follow-up assessment Pain Scale Goal : 3 Pain Improved by Intervention : Yes MATTHEW VILLALOBOS RN - 07/12/2019 3:03 EDT Electronically signed by Julian Wheeler Conversion Corncob Pipe Manufacturing Supervisor Cerner at 01/23/2023 1:22 PM CDT documented in this encounter Plan of Treatment Not on file documented as of this encounter Visit Diagnoses Not on filedocumented in this encounter
--- OUTSIDE RECORDS SUMMARY | 2025-07-29 11:57 | XMS_ITS | Encounter Summary ---
Author Organization [employer] ([place], [place], [place], [place]) Address [address] [place] [address] Care Team Providers Care Podiatry Teacher Name Role Phone Unavailable Primary Care Provider Unavailabl e Encounter Details Date Type Department Care Team (Late st Contact Info) Description 07/26/2019 Transcribed Document [facility] [place] [address] [place] [address] ProviderChano MD [address] [place], [place] [phone] Social History Tobacco Use Types Packs/Day Years Used Date Smoking Tobacco: Never Assessed Comments Unknown Sex and Gender Information Value Date Recorded Sex Assigned at Not on file Legal Sex Female 2:07 PM CDT Gender Identity Not on file Sexual Orientation Not on file documented as of this encounter Miscellaneous Notes * Cerner Conversion Note - Chano Gatica MD - 07/26/2019 1:22 PM CDT Patient: LUDY ANTONIO Age: 68 [...] epithelial cells. Urine culture was positive for 10???153134 CFU/mL. CT of the L-spine was negative. [...] or confusion. ROS and hx discussed with gve6tce, has had ceofusion and fever last 2 [...] weakness no fever chills rash back drainage Allergies:Allergies (1) Active Reaction Avandia CHF Medications:Medications [...] fluticasone nasal (Flonase) - 1 Puff, Nasal, [place], Daily, Routine miconazole topical (Desenex AF 2% [...] Last Charted Minimum Maximum Temp 98.1 (JUL 26 10:32) 98 (JUL 25 18:16) 98 (JUL 25 18:16) Apical HR 62 (JUL 26 08:18) 62 (JUL 26 08:18) 75 (JUL 25 20:13) Mon HR 72 (JUL 26 10:32) 64 (JUL 25 18:16) 72 (JUL 26 02:15) Resp Rate 15 (JUL 26 10:32) 15 (JUL 26 10:32) 20 (JUL 25 18:16) SBP 135 (JUL 26 10:32) 120 (JUL 26 06:01) H 147 (JUL 25 18:16) DBP H 111 (JUL 26 10:32) L 46 (JUL 25 22:29) H 111 (JUL 26 10:32) MAP 118 (JUL 26 10:32) 69 (JUL 25 22:29) 118 (JUL 26 10:32) SpO2 L 92 (JUL 26 10:32) L 92 (JUL 26 10:32) 96 (JUL 25 18:16) Exam: Gen NAD lethargic early this am HEENT: [place] NECK: LYMPH: RESP: Nonlabored breathing CV: RRR, no murmurs, gallops, or rubs. No edema GI: soft, nontender, nondistended, : No garcia in place MS: no rash SKIN: No lesions NEURO: walking, gait grossly normal. back incision looks OK no redness or induration PSYCH : interactive Labs:Labs (Last four charted values) WBC 7.2 (OCT 17) 8.4 (OCT 16) 7.2 (OCT 13) 8.4 (OCT 07) HB 11.7 (OCT 17) 11.6 (OCT [...] (OCT 13) 104 (JUL 07) CO2 24 (OCT 17) 29 (OCT 16) 30 (OCT 13) 31 (OCT 07) BUN H 24 (OCT 17) H 27 (OCT 16) H 23 (OCT 13) 14 (OCT 07) Cr H 1.06 (OCT 17) 1.00 (OCT 16) 1.00 (OCT 13) 0.90 (OCT 07) Glu R H 172 (OCT 17) H 134 (OCT 16) H 213 (OCT 13) H 202 (OCT 07) Ca 9.0 (OCT 17) 9.1 (OCT 16) 9.4 (OCT 13) 9.0 (JUL 07) PT 9.9 (JUL 04) 10.1 (JUL 03) INR 0.9 (OCT 04) 0.9 (OCT 03) PTT 28.0 (OCT 03) AST 15 (OCT 16) 18 (OCT 07) 16 (OCT 04) 17 (OCT 03) ALT 24 (OCT 16) 25 (JUL 07) 23 (JUL 04) 21 (OCT 03) ALK P 56 (OCT 16) 56 (OCT 07) 69 (OCT 04) 63 (OCT 03) T Bili 0.3 (OCT 16) 0.3 (OCT 07) 0.3 (OCT 04) 0.4 (OCT 03) PTN L 6.2 (OCT 16) 6.7 (OCT 07) 7.1 (OCT 04) 7.0 (JUL 08) ALB L 2.7 (JUL [...] Follow cultures Follow labs UM discussed with DC Sane Rn With increasing back pain will repcheck labs in am if still here Electronically signed by Summre, [facility] Conversion Employment Representative Cerner at 01/23/2023 1:37 PM CDT documented in this encounter Plan of Treatment Not on file documented as of this encounter Visit Diagnoses Not on filedocumented in this encounter
--- OUTSIDE RECORDS SUMMARY | 2025-07-29 11:57 | XMS_ITS | Encounter Summary ---
Author Organization [employer] ([place], [place], [place], [place]) Address [address] [place] [address] Care Team Providers Care Multi Sensor Operator Name Role Phone Unavailable Primary Care Provider Unavailabl e Encounter Details Date Type Department Care Team (Late st Contact Info) Description 07/26/2019 Transcribed Document [facility] Family Medicine [address] [place] [address] ProviderChano MD [address], [place] [id number] Social History Tobacco Use Types Packs/Day Years Used Date Smoking Tobacco: Never Assessed Comments Unknown Sex and Gender Information Value Date Recorded Sex Assigned at Not on file Legal Sex Female 2:07 PM CDT Gender Identity Not on file Sexual Orientation Not on file documented as of this encounter Miscellaneous Notes * Cerner Conversion Note - Chano ProviderMD - 07/26/2019 4:14 PM CDT On Going Discharge Planning Entered On: 07/26/2019 16:18 EDT Performed On: 07/26/2019 16:14 EDT by HORACIO ACHARYA RN-Chief Safety OfficerFlat Examiner Progress Note Discharge Arrangements : Patient Post-Acute Information Patient Name: ADRIENNE ANTONIO Gender: Female : [birth year] Age: 68 Years No Post-Acute Placement(s) Listed No Post-Acute Service(s) Listed No Curaspan Referral(s) Listed Barriers to Discharge Identified : Clinical Condition of Patient Barriers to Discharge Unresolved : Clinical Condition of Patient Referral Indicators For Complex SWK Interventions : Behavorial or psychiatric issues HORACIO ACHARYA RN-Chief Safety Officer - 07/26/2019 16:14 EDT Narrative Progress Note Narrative Progress Note : Referrals resent to [facility] in [place] and spoke to admissions. No beds as of now, but they will look at referral to determine if able to offer a bed when one comes available. Resenreferral to [facility] as well, they are looking at pt again. Sent referral to Luis Bradshaw. Daughter Alma Rosa found a psych facility in [place]--[facility] and got a social contact worker--Joey Barriga ([phone]). Referral sent via [facility] and informed intake as well as had discussion with Joey regarding pt. CM will continue to follow. Historical Progress Note : MRI-(-). U/A-pyuria. No abx per Dr. Jama. Pt even more confused today, refusing therapy and meds. Pt is paranoid thinking people are trying to give her things against her will. More updates and test results sent to [facility]psych and spoke to Monisha. Pt has been medically cleared to dc. Monisha called CM later in day and stated MD has declined admission. CM begged Monisha to ask if MD would come do a bedside evaluation. She states she will ask. Spoke to Monisha 2 hours later, he states he does not do bedside evals. D/W pt's daughter, Dr. Reid, Dr. Jama, and bedside RN Fior. CM will contniue to follow. HORACIO ACHARYA, RN-Chief Safety Officer - 07/23/19 17:17:27 Pt's confusion is worse. She is unable to use utensils and is using her hands to eat. [facility] reconsulted. Labs/urine sent. [facility] called asking if pt still needed placement. Eugenie Monsivais met with pt at bedside and feels pt would do better if went to psych unit prior to rehab. Spoke to Urvashi at [facility]-Psych unit and sent updates to her. She states pt has to be medically ready for dc before she can given MD referral. Pt is not ready today. D/W Dr. Reid, pt's daughter, spouse, and bedside RN. CM will contniue to follow. HORACIO ACHARYA RN-Chief Safety Officer - 07/23/19 17:13:59 Lisbeth met with pt and family at bedside, but her boss has declined admission. Spoke to Yodit with [facility], she can offer at all 3 in [place], and [place]. They chose [facility] initiated. CM will continue to follow. HORACIO ACHARYA RN-Chief Safety Officer - 07/21/19 14:38:34 Pt was referred to 18 debbie/psych facilities by [facility]. All have declined admission, some stating she needs physical rehab and/or does not have any acute issues for psych admission. Spouse agreeable to try for SNF admission since she is still requiring assistance with ADL's and bed mobility. He chose [facility], [facility], and [facility]. Referrals sent via [facility]. Spoke to Lisbeth with the [facility] and [facility]. She states they have a controls engineer that can see pt at the facility. She will need to come do a bedside eval. D/W Dr. Horner as well. CM will continue to follow. HORACIO ACHARYA RN-Chief Safety Officer - 07/20/19 15:47:15 [facility] consulted. They received [...] CM will continue to follow. HORACIO ACHARYA RN-Chief Safety Officer - 07/19/19 15:10:43 [facility] eval for inpatient psych on Thursday 07/19. CM will continue to follow. HORACIO ACHARYA RN-Chief Safety Officer - 07/16/19 12:46:58 [facility] declined admission to their psych unit. No word from [facility]. Met with pt's daughter and had lengthy discussion regarding disposition. CM will consult MARINA at time of dc for help with admission to debbie-psych unit somewhere. D/W Dr. Horner and Dr. Jama. CM will continue to follow. HORACIO ACHARYA RN-Chief Safety Officer - 07/15/19 14:03:13 Spoke to pt's spouse iKan on the phone today. 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 He states he does not want her going to those places as she kows people there. He agrees to referrals to [facility] and [facility] inpatient psych units. Referral sent and spoke to JUSTA Perez at [facility] and Royce RN at [facility]. CM will continue to follow. HORACIO ACHARYA RN-Chief Safety Officer - 07/14/19 13:36:43 Dr. Valdez consult this [...] CM will continue to follow. HORACIO ACHARYA RN-Chief Safety Officer - 07/13/19 17:41:20 psych consult referral faxed to Dr. Valdez's office to assess for psychosis. SANJIV VOGT RN-Chief Safety Officer - 07/11/19 16:14:26 HORACIO ACHARYA RN-Chief Safety Officer - 07/26/2019 16:14 EDT documented in this encounter Plan of Treatment Not on file documented as of this encounter Visit Diagnoses Not on filedocumented in this encounter
--- OUTSIDE RECORDS SUMMARY | 2025-07-29 11:57 | XMS_ITS | Encounter Summary ---
Author Organization [employer] ([place], [place], [place], [place]) Address [address] [place] [address] Care Team Providers Care Spa Associate Name Role Phone Unavailable Primary Care Provider Unavailabl e Encounter Details Date Type Department Care Team (Late st Contact Info) Description 07/09/2019 Transcribed Document [facility] Family Medicine [address] [place] [address] ProviderChano MD [address] [place], [place] [phone] Social History Tobacco Use Types Packs/Day Years Used Date Smoking Tobacco: Never Assessed Comments Unknown Sex and Gender Information Value Date Recorded Sex Assigned at Not on file Legal Sex Female 2:07 PM CDT Gender Identity Not on file Sexual Orientation Not on file documented as of this encounter Miscellaneous Notes * Cerner Conversion Note - Chano ProviderMD - 07/09/2019 1:00 PM CDT [facility] Main OR Preop Summary Primary Physician: CATRACHITO THOMPSON, MD ONUR Finalized Date/Time: 07/09/19 13:35:39 Pt. Name: LUDY ANTONIO D.O.B./Sex: 1950 Female Med Rec #: [id number] Physician: TOM MORSE MD-INT Financial #: [id number] Pt. Type: O Room/Bed: 63/1 Admit/Disch: 07/08/19 21:23:00 - Institution: [facility] PreOp Case Times Entry 1 In Preop 07/09/19 12:29:00 Ready for Holding n/a Room Patient Ready for 07/09/19 13:25:00 Surgery Patient Out of Preop 07/09/19 13:25:00 Patient Out of n/a Holding Room Last Modified By: Miriam Boudreaux RN 07/09/19 13:35:38 [facility] PreOp Case Times Audit 07/09/19 13:35:38 Chainstitch Sewing Machine Operator: SUZY Modifier: SAMYR <+> 1 Patient Out of Preop Finalized By: Miriam Boudreaux RN Document Signatures Signed By: Miriam Boudreaux RN 07/09/19 13:35 Electronically signed by [facility] Conversion Scheduler Conveyor Cerner at 01/23/2023 1:20 PM CDT documented in this encounter Plan of Treatment Not on file documented as of this encounter Visit Diagnoses Not on filedocumented in this encounter
--- OUTSIDE RECORDS SUMMARY | 2025-07-29 11:57 | XMS_ITS | Encounter Summary ---
Author Organization [employer] ([place], [place], [place], [place]) Address [address] [place] [address] Care Team Providers Care General Activities Therapist Name Role Phone Unavailable Primary Care Provider Unavailabl e Encounter Details Date Type Department Care Team (Late st Contact Info) Description 07/09/2019 Transcribed Document [facility] Family Medicine [address] [place] [address] ProviderChano MD [address], [place] [phone] Social History Tobacco Use Types Packs/Day Years Used Date Smoking Tobacco: Never Assessed Comments Unknown Sex and Gender Information Value Date Recorded Sex Assigned at Not on file Legal Sex Female 2:07 PM CDT Gender Identity Not on file Sexual Orientation Not on file documented as of this encounter Miscellaneous Notes * Cerner Conversion Note - Chano ProviderMD - 07/09/2019 10:59 AM CDT Pain Assessment Entered On: 07/21/2019 6:50 EDT Performed On: 07/21/2019 5:44 EDT by Kalli Patricia RN Intervention Information: oxyCODONE Performed by Kalli Patricia RN on 07/21/2019 04:44:00 EDT oxyCODONE,10mg Oral,Pain (Moderate 4-6) Pain Assessment Pain Assessment : Follow-up assessment Pain Scale Goal : 3 Pain Scale Used : 0-10 Scale Location : Back Onset : Acute Quality : Aching Pain Radiation : No Pain Improved by : Medication Pain Worsened by : Movement Pain Intervention, Drug : Medicated Pain Improved by Intervention : Yes Kalli Patricia RN - 07/21/2019 6:50 EDT Pain Scale Intensity : 2 Kalli Patricia RN - 07/21/2019 6:50 EDT Image 4 - Images currently included in the form version of this document have not been included in the text rendition version of the form. documented in this encounter Plan of Treatment Not on file documented as of this encounter Visit Diagnoses Not on filedocumented in this encounter
--- OUTSIDE RECORDS SUMMARY | 2025-07-29 11:57 | XMS_ITS | Encounter Summary ---
Author Organization [employer] ([place], [place], [place], [place]) Address [address] [place] [address] Care Team Providers Care Electricity Trading Analyst Name Role Phone Unavailable Primary Care Provider Unavailabl e Encounter Details Date Type Department Care Team (Late st Contact Info) Description 07/09/2019 Transcribed Document [facility] Family Medicine [address] [place] [address] ProviderChano MD [address] [place] [address] Social History Tobacco Use Types Packs/Day Years Used Date Smoking Tobacco: Never Assessed Comments Unknown Sex and Gender Information Value Date Recorded Sex Assigned at Not on file Legal Sex Female 2:07 PM CDT Gender Identity Not on file Sexual Orientation Not on file documented as of this encounter Miscellaneous Notes * Cerner Conversion Note - Chano ProviderMD - 07/09/2019 3:05 PM CDT Evaluation, Physical Therapy Entered On: 07/10/2019 12:56 EDT Performed On: 07/10/2019 9:15 EDT by NANO OSBORNE PT General Information, PT Visit Type, PT : Initial evaluation Patient Orders : Order Date Order Ordering 07/09/2019 15:05 Physical Therapy Eval and Treat Ordered By: CATRACHITO THOMPSON, MD ONUR Active Diagnoses : 07/09/2019 12:00 Other intervertebral disc displacement, lumbar region 07/08/2019 12:00 Back pain 07/08/2019 12:00 Dorsalgia, unspecified 07/08/2019 12:00 Post surgery problem 07/08/2019 12:00 Weakness Therapy Diagnosis, PT : Decreased mobility Admission Date : 07/08/2019 21:23 Personal Devices : Personal Devices Dentures, upper Assistive Devices : Assistive Devices No Devices Recorded General Information Comment, PT : 68 y.o. female, admitted 07/08/2019, with L3/4 R microdiscectomy revision administered on 07/09/2019 NANO OSBORNE, PT - 07/10/2019 12:43 EDT General Status Patient Received Status : Supine in bed Treatment Start Time : 07/10/2019 8:50 EDT Patient Left Status : Supine in bed RN/PCT Informed Comment : RN Earnest) OK'ed PTx. Treatment End Time : 07/10/2019 9:15 EDT Treatment Time : 25 Minute(s) NANO OSBORNE, PT - 07/10/2019 12:43 EDT History and Environment Living Situation, Therapy : Home Patient Lives With : Spouse Persons Assisting Patient at Home : Spouse Professional Skilled Services : None Persons Providing Information : Patient Home Equipment Therapy, PT : None Home Setup : One story Bedroom Location : Main level Bathroom #1 Location : Main level Stairs : Yes Stair Location(s) : Outside Outside Stairs, Number of Steps : 2 Railing Outside : No NANO OSBORNE, PT - 07/10/2019 12:43 EDT Prior Level of Function PT GRID Prior LOF Ambulation, Household : Independent Prior LOF Ambulation, Community : Independent Prior LOF Bed Mobility : Independent Prior LOF Toileting : Independent NANO OSBORNE, PT - 07/10/2019 12:43 EDT Upper Extremity Upper Extremity Dominance : Right Right UE Active ROM : WFL Right UE Strength : WFL Left UE Active ROM : WFL Left UE Strength : WFL NANO OSBORNE, PT - 07/10/2019 12:43 EDT Lower Extremity RLE Active ROM : WFL Right LE Strength : Impaired LLE Active ROM : WFL Left LE Strength : Impaired NANO OSBORNE, PT - 07/10/2019 12:43 EDT Functional Mobility Mobility Grid Supine to Sit : Rehab Moderate assistance (Comment: x 2 [NANO OSBORNE, PT - 07/10/2019 12:43 EDT] ) Sit to Stand : Rehab Moderate assistance (Comment: x 2 [NANO OSBORNE, PT - 07/10/2019 12:43 EDT] ) Stand to Sit : Rehab Moderate assistance (Comment: x 2 [NANO OSBORNE, PT - 07/10/2019 12:43 EDT] ) Sit to Supine : Rehab Moderate assistance (Comment: x 2 [NANO OSBORNE, PT - 07/10/2019 12:43 EDT] ) NANO OSBORNE, PT - 07/10/2019 12:43 EDT Gait Training/Assessment, PT Gait Assistance Level : Unable to assess/activity not appropriate NANO OSBORNE, PT - 07/10/2019 12:43 EDT Cognition Assessment, PT Orientation : Not oriented to situation NANO OSBORNE, PT - 07/10/2019 12:43 EDT Edu Topics Physical Therapy Education Grid Balance Training : Needs further teaching Bed Mobility Training : Needs further teaching Caregiver Training : Needs further teaching Gait Training : Needs further teaching Positioning : Needs further teaching Precaution/Contraindication : Needs further teaching Role of Physical Therapy : Needs further teaching Safety : Needs further teaching Transfer Training : Needs further teaching Use of Assistive Device : Needs further teaching NANO OSBORNE, PT - 07/10/2019 12:43 EDT Indication Assesessment, PT Physical Therapy Indicated : Yes PT Problem List : Impaired, activities daily living, Impaired, coordination/proprioception, Impaired, endurance tolerance, Impaired, gait, Impaired, sitting balance, Impaired, stair mobility, Impaired, standing balance, Impaired, strength, Impaired, transfers Potential Barriers To Therapy : Other: pt. confusion Rehabilitation Potential : Fair NANO OSBORNE, PT - 07/10/2019 12:43 EDT Plan of Care, PT PT Tx Plan/Goals Established w Patient : Yes PT Frequency Rehab : Daily, twice (bid) PT Duration Rehab : Other: until goals met or D/C from hospital PT Treatments Planned : Balance training, Caregiver training, Gait training, Safety education, Stair training, Transfer training NANO OSBORNE, PT - 07/10/2019 12:43 EDT Short Term Goals Mobility/Bed Mobility STG PT Grid Goal #1 Goal #2 Activity : Supine to sit Sit to stand Assist : Assist, minimal Assist, minimal Date to Meet : 07/17/2019 EDT 07/17/2019 EDT Goal Status : Initial goal Initial goal NANO OSBORNE, PT - 07/10/2019 12:43 EDT NANO OSBORNE, PT - 07/10/2019 12:43 EDT Ambulation STG Grid Goal #1 Device : Walker, front wheel Distance : 100 Assist : Assist, minimal Date to Meet : 07/17/2019 EDT Goal Status : Intial Goal NANO OSBORNE, PT - 07/10/2019 12:43 EDT Internet Marketing Intern Goals Mobility/Bed Mobility LTG PT Grid Goal #1 Goal #2 Activity : Sit to stand Sit to stand Assist : Supervision or set-up Supervision or set-up Date to Meet : 07/24/2019 EDT 07/24/2019 EDT Goal Status : Intial Goal Intial Goal NANO OSBORNE, PT - 07/10/2019 12:43 EDT NANO OSBORNE, PT - 07/10/2019 12:43 EDT Ambulation LTG Grid Goal #1 Device : Walker, front wheel Distance : 300 Assist : Supervision or set-up Date to Meet : 07/24/2019 EDT Goal Status : Intial Goal NANO OSBORNE, PT - 07/10/2019 12:43 EDT Stairs LTG Grid Goal #1 Number of Steps : 2 Handrail(s) : No handrails Date to Meet : 07/24/2019 EDT Goal Status : Intial Goal NANO OSBORNE, PT - 07/10/2019 12:43 EDT Treatment Note Subjective Comment : Initially agreed to PTx, however, intermittently confused with PT and asked what we were doing there. Patient's Response to Treatment : Fair Additional Objective Information : Pt. in supine. Mod A x 2 to sit, mod A in sitting to minimize posterior lean during seated mobility assessment. Mod A x 2 to stand. Stood ~ 10-15 seconds prior to adamently sitting back down due to pain and fear of falling. Returned to bed after PTx with call wagoner in reach and sitter in room. Pt. educated on role of PT for current episode of care. Assessment : Confusion and fear of falling/pain limiting overall quality of functional position safetly. Will benefit from PT to minimize current functional limitations Plan for Treatment : see POC. NANO OSBORNE, PT - 07/10/2019 12:43 EDT Pain Assessment Pain Scaled Used : 0-10 Pain scale Pain Score Post-Intervention. : 10 Location : Back NANO OSBORNE, PT - 07/10/2019 12:43 EDT Image 1 - Images currently included in the form version of this document have not been included in the text rendition version of the form. [facility] PT Charges PT Therap. Exercise 15 min : 1 PT Eval Low Complexity : 1 NANO OSBORNE, PT - 07/10/2019 12:43 EDT documented in this encounter Plan of Treatment Not on file documented as of this encounter Visit Diagnoses Not on filedocumented in this encounter
--- OUTSIDE RECORDS SUMMARY | 2025-07-29 11:57 | XMS_ITS | Encounter Summary ---
Author Organization [employer] ([place], [place], [place], [place]) Address [address] [place] [address] Care Team Providers Care Supervisor Television Chassis Repair Name Role Phone Unavailable Primary Care Provider Unavailabl e Encounter Details Date Type Department Care Team (Late st Contact Info) Description 07/25/2019 Transcribed Document [facility] Family Medicine [address] [place] [address] ProviderChano MD [address], [place] [phone] Social History Tobacco Use Types Packs/Day Years Used Date Smoking Tobacco: Never Assessed Comments Unknown Sex and Gender Information Value Date Recorded Sex Assigned at Not on file Legal Sex Female 2:07 PM CDT Gender Identity Not on file Sexual Orientation Not on file documented as of this encounter Miscellaneous Notes * Cerner Conversion Note - Historical ProviderMD - 07/25/2019 10:12 AM CDT Attempt to Treat, PT Entered On: 07/25/2019 11:19 EDT Performed On: 07/25/2019 10:12 EDT by Rosy Guzman, Student-Physical Therapist Attempt to Treat Notification : DEONTE El, PT - 07/25/2019 11:22 EDT Unable to Treat Due To : Patient Refusal Rosy Guzman, Student-Physical Therapist - 07/25/2019 11:17 EDT Inability to Treat Comment : After several minutes of attempting to have pt participate pt became irritated and continued to refuse. Pt confused and reported that she wanted to have a shower first. PT in agreement with student note. DEONTE DUNN, PT - 07/25/2019 11:22 EDT documented in this encounter Plan of Treatment Not on file documented as of this encounter Visit Diagnoses Not on filedocumented in this encounter
--- OUTSIDE RECORDS SUMMARY | 2025-07-29 11:57 | XMS_ITS | Encounter Summary ---
Author Organization [employer] ([place], [place], [place], [place]) Address [address] [place] [address] Care Team Providers Care Websphere Commerce Developer Name Role Phone Unavailable Primary Care Provider Unavailabl e Encounter Details Date Type Department Care Team (Late st Contact Info) Description 07/24/2019 Transcribed Document [facility] [address] [place] [address] ProviderChano MD [address] [place], [place] [id number] Social History Tobacco Use Types Packs/Day Years Used Date Smoking Tobacco: Never Assessed Comments Unknown Sex and Gender Information Value Date Recorded Sex Assigned at Not on file Legal Sex Female 2:07 PM CDT Gender Identity Not on file Sexual Orientation Not on file documented as of this encounter Miscellaneous Notes * Cerner Conversion Note - Historical ProviderMD - 07/24/2019 2:18 PM CDT Attempt to Treat, PT Entered On: 07/24/2019 14:18 EDT Performed On: 07/24/2019 14:18 EDT by NIRMAL MEDRANO, PT Attempt to Treat Unable to Treat Due To : Patient Refusal Inability to Treat Comment : Very confused, refused to walk and states I've been up walking for 24 hours ; patient not aware of her surroundings or situation Notification : NIRMAL Melendez, PT - 07/24/2019 14:18 EDT documented in this encounter Plan of Treatment Not on file documented as of this encounter Visit Diagnoses Not on filedocumented in this encounter
--- OUTSIDE RECORDS SUMMARY | 2025-07-29 11:57 | XMS_ITS | Encounter Summary ---
Author Organization [employer] ([place], [place], [place], [place]) Address [address] [place] [address] Care Team Providers Care Stem Cleaning Machine Feeder Name Role Phone Unavailable Primary Care Provider Unavailabl e Encounter Details Date Type Department Care Team (Late st Contact Info) Description 07/25/2019 Transcribed Document [facility] Radiology [address] [place] [address] Abby Reid MD [address] [place] [address] [place] [address] Social History Tobacco Use Types Packs/Day Years Used Date Smoking Tobacco: Never Assessed Comments Unknown Sex and Gender Information Value Date Recorded Sex Assigned at Not on file Legal Sex Female 2:07 PM CDT Gender Identity Not on file Sexual Orientation Not on file documented as of this encounter Miscellaneous Notes * Cerner Conversion Note - Abby Reid MD - 07/25/2019 10:05 AM EDT Patient: LUDY ANTONIO Age: 68 [...] Today: pt awake, sitting up, refused by fraort facility, no fam around this am Health Status Allergies: Allergic Reactions (Selected) Severity [...] chew) Flonase 0.05 mg/inh nasal spray: 2 [place], Nasal, Daily, 16 Gram, 0 Refill(s) Lantus [...] Bedtime Flonase 0.05 mg/inh nasal spray 2 [place], Nasal, Daily gabapentin 300 mg oral capsule [...] Problem list: Medical Pain//chronic / SNOMED CT 209138717 / Confirmed At risk for sleep apnea / IMO 94273147 / Confirmed Back pain / SNOMED CT 4025835921 / Confirmed Cataract///beginning stage / SNOMED CT 956902721 / Confirmed Chest pain///cath negative / SNOMED CT 42224800 / Confirmed Completely occulded L carotid / SNOMED CT 4981818894 / Confirmed Lumbar disc disease / SNOMED CT 5685365731 / Confirmed Fibromyalgia / SNOMED CT 552618457 / Confirmed Hiatal hernia / SNOMED CT 685644304 / Complaint of H/O ischemic left MCA stroke / SNOMED CT 0525183692 / Confirmed Memory deficit///slow recall / SNOMED CT 3171607233 / Confirmed Numbness and tingling//right leg / SNOMED CT 6435333403 / Confirmed Obesity / SNOMED CT 6713500674 / Confirmed Right leg pain / SNOMED CT 0846252331 / Confirmed Colon polyps / SNOMED CT 830086922 / Confirmed Sleep apnea///risk / SNOMED CT 365187609 / Confirmed Wears glasses / SNOMED CT 606492904 / Confirmed, Active Problems (24) Acid reflux [...] Last Charted Minimum Maximum Temp 97.6 (JUL 25 07:09) 97 (JUL 24 16:00) 98.5 (JUL 24 18:05) Apical HR 80 (JUL 24 23:55) 78 (JUL 24 12:07) 80 (JUL 24 23:55) Mon HR 59 (JUL 25 07:09) 59 (JUL 25 07:09) 72 (JUL 24 16:00) Resp Rate 16 (JUL 25 07:09) 16 (JUL 24 12:00) 16 (JUL 24 12:00) SBP 120 (JUL 25 07:09) 107 (JUL 24 18:05) 140 (JUL 24 12:00) DBP 62 (JUL 25 07:09) L 51 (JUL 24 18:05) 68 (JUL 24 16:00) MAP 88 (JUL 25 07:09) 62 (JUL 24 16:00) 88 (JUL 25 07:09) SpO2 98 (JUL 24 18:05) 98 (JUL 24 12:00) 98 (JUL 24 12:00) General: Moderate distress. Neck: Supple, Non-tender, No [...] charted values) WBC 7.2 (JUL 17) 8.4 (OCT 16) 7.2 (OCT 13) [...] R H 172 (OCT 17) H 134 (JUL [...] insulin ss, on lantus 25 bid 3. dc diflucan, 4. off abx [...]
--- OUTSIDE RECORDS SUMMARY | 2025-07-29 11:57 | XMS_ITS | Encounter Summary ---
Author Organization [employer] ([place], [place], [place], [place]) Address [address] [place] [address] Care Team Providers Care Still Operator Batch Or Continuous Name Role Phone Unavailable Primary Care Provider Unavailabl e Encounter Details Date Type Department Care Team (Late st Contact Info) Description 07/23/2019 Transcribed Document [facility] [place] [facility] [place] [address] ProviderChano MD [address] [place] [id number] Social History Tobacco Use Types Packs/Day Years Used Date Smoking Tobacco: Never Assessed Comments Unknown Sex and Gender Information Value Date Recorded Sex Assigned at Not on file Legal Sex Female 2:07 PM CDT Gender Identity Not on file Sexual Orientation Not on file documented as of this encounter Miscellaneous Notes * Cerner Conversion Note - Historical ProviderMD - 07/23/2019 4:12 PM CDT Discharge Summary, PT Entered On: 07/23/2019 16:14 EDT Performed On: 07/23/2019 16:12 EDT by THERESA TURNER STUDENT-PHYSICAL THERAPIST Discharge Summary Reason for Discharge : Discharged from hospital Discharged to, Therapy : Unit, half-way THERESA TURNER STUDENT-PHYSICAL THERAPIST - 07/23/2019 16:12 EDT Discharge Summary Comment, PT : As of 07/21, pt ambulated 40ft RWx [place]. pt has refused all treatment attempts since. pt met 3/3 STG and 0/4 LTG. per chart review pt discharged to SNF PTx has reviewed and agrees with this documentation. Milad Schaeffer THUAN, PT - 07/23/2019 16:16 EDT Short Term Goals Mobility/Bed Mobility STG PT Grid Goal #1 Goal #2 Activity : Supine to sit Sit to stand Assist : Assist, minimal Assist, minimal Date to Meet : 07/17/2019 EDT 07/17/2019 EDT Goal Status : Goal met Goal met Date Met : 07/19/2019 EDT 07/16/2019 EDT THERESA TURNER STUDENT-PHYSICAL THERAPIST - 07/23/2019 16:12 EDT THERESA TURNER STUDENT-PHYSICAL THERAPIST - 07/23/2019 16:12 EDT Ambulation STG Grid Goal #1 Device : Walker, front wheel Distance : 100 Assist : Assist, minimal Date to Meet : 07/17/2019 EDT Goal Status : Goal met Date Met : 07/15/2019 EDT Comment : THERESA TURNER STUDENT-PHYSICAL THERAPIST - 07/23/2019 16:12 EDT Halfway Goals Mobility/Bed Mobility LTG PT Grid Goal #1 Goal #2 Activity : Sit to stand Sit to stand Assist : Supervision or set-up Supervision or set-up Date to Meet : 07/24/2019 EDT 07/24/2019 EDT Goal Status : Not met Not met THERESA TURNER STUDENT-PHYSICAL THERAPIST - 07/23/2019 16:12 EDT THERESA TURNER STUDENT-PHYSICAL THERAPIST - 07/23/2019 16:12 EDT Ambulation LTG Grid Goal #1 Device : Walker, front wheel Distance : 300 Assist : Supervision or set-up Date to Meet : 07/24/2019 EDT Goal Status : Not met THERESA TURNER STUDENT-PHYSICAL THERAPIST - 07/23/2019 16:12 EDT Stairs LTG Grid Goal #1 Number of Steps : 2 Handrail(s) : No handrails Date to Meet : 07/24/2019 EDT Goal Status : Not met THERESA TURNER STUDENT-PHYSICAL THERAPIST - 07/23/2019 16:12 EDT documented in this encounter Plan of Treatment Not on file documented as of this encounter Visit Diagnoses Not on filedocumented in this encounter
--- OUTSIDE RECORDS SUMMARY | 2025-07-29 11:57 | XMS_ITS | Encounter Summary ---
Author Organization [employer] ([place], [place], [place], [place]) Address [address] [place] [address] Care Team Providers Care Strategic Marketing Specialist Name Role Phone Unavailable Primary Care Provider Unavailabl e Encounter Details Date Type Department Care Team (Late st Contact Info) Description 07/23/2019 Transcribed Document [facility] [place] [address] [place] [address] ProviderChano MD [address] [place] [id number] Social History Tobacco Use Types Packs/Day Years Used Date Smoking Tobacco: Never Assessed Comments Unknown Sex and Gender Information Value Date Recorded Sex Assigned at Not on file Legal Sex Female 2:07 PM CDT Gender Identity Not on file Sexual Orientation Not on file documented as of this encounter Miscellaneous Notes * Cerner Conversion Note - Historical ProviderMD - 07/23/2019 3:39 PM CDT Patient: LUDY ANTONIO Age: 68 Years Sex: Female : 1950 Subjective Patient sitting on edge of bed and is tearful. Family is currently not available. Review of Systems Eyes - wearing glasses. Objective Vitals & Measurements T: 36.2 ??C TMIN: 36.2 ??C TMAX: 36.8 ??C HR: 82(Monitored) RR: 18 BP: 153/80 SpO2: 96% Physical Exam EOMI Speech - fluent Tells me her name and that we are at [facility] . TESTS Cranial MRI ( yesterday ) - a) old stroke in posterior aspect of left MCA territory . b) no acute changes. RPR - Non reactive. Urinalysis - unremarkable. Assessment/Plan Ludy Antonio is a 68-year-old female with diabetes, cerebrovascular disease, an occluded left carotid artery, back pain as well as multiple orthopedic procedures and chronic gait disorder, who has had at lease a three month history of encephalopathy. She currently is hospitalized after having recurrent back surgery on right L3-4 on July 08. She has been having problems with encephalopathy after her surgery. She was placed on Depakote on the . On September 21 , I stopped Depakote as she seemed groggy and family reported declining function. The patient seems more alert today but is tearful. The differential for her encephalopathy could include one or a combination of the followin. An underlying psychiatric illness or neurodegenerative disease . 2. Side effects of medications. 3. A OLERICULTURIST infection. 4. Cerebrovascular disease. 5. Seizures - [...] by a physician. 4. Continue supportive care. I did receive records from Dr. Núñez. His notes indicate that her saw her one time in the summer for confusion. I will check back next week. Medications Inpatient Cymbalta, 60 mg= 2 Cap, [...]
--- OUTSIDE RECORDS SUMMARY | 2025-07-29 11:57 | XMS_ITS | Encounter Summary ---
Author Organization [employer] ([place], [place], [place], [place]) Address [address] [place] [address] Care Team Providers Care Strip Machine Operator Name Role Phone Unavailable Primary Care Provider Unavailabl e Encounter Details Date Type Department Care Team (Late st Contact Info) Description 07/27/2019 Transcribed Document [facility] Radiology [address] [place] [address] Abby Reid MD [address] [place] [address] [place] [address] Social History Tobacco Use Types Packs/Day Years Used Date Smoking Tobacco: Never Assessed Comments Unknown Sex and Gender Information Value Date Recorded Sex Assigned at Not on file Legal Sex Female 2:07 PM CDT Gender Identity Not on file Sexual Orientation Not on file documented as of this encounter Miscellaneous Notes * Cerner Conversion Note - Abby Reid MD - 07/27/2019 9:59 AM EDT Patient: LUDY ANTONIO Age: 68 [...] chew) Flonase 0.05 mg/inh nasal spray: 2 [place], Nasal, Daily, 16 Gram, 0 Refill(s) Lantus [...] Bedtime Flonase 0.05 mg/inh nasal spray 2 [place], Nasal, Daily gabapentin 300 mg oral capsule [...] Problem list: Medical Pain//chronic / SNOMED CT 308113991 / Confirmed At risk for sleep apnea / IMO 01309905 / Confirmed Back pain / SNOMED CT 9675346353 / Confirmed Cataract///beginning stage / SNOMED CT 341879329 / Confirmed Chest pain///cath negative / SNOMED CT 83140192 / Confirmed Completely occulded L carotid / SNOMED CT 3349003356 / Confirmed Lumbar disc disease / SNOMED CT 4660885296 / Confirmed Fibromyalgia / SNOMED CT 604678168 / Confirmed Hiatal hernia / SNOMED CT 141613304 / Complaint of H/O ischemic left MCA stroke / SNOMED CT 0896448665 / Confirmed Memory deficit///slow recall / SNOMED CT 1027688599 / Confirmed Numbness and tingling//right leg / SNOMED CT 4901311442 / Confirmed Obesity / SNOMED CT 0611013506 / Confirmed Right leg pain / SNOMED CT 9818912266 / Confirmed Colon polyps / SNOMED CT 449217229 / Confirmed Sleep apnea///risk / SNOMED CT 609070529 / Confirmed Wears glasses / SNOMED CT 312455204 / Confirmed, Active Problems (24) Acid reflux [...] (JUL 27 06:32) 97.5 (JUL 27 06:32) 98.1 (JUL 26 10:32) Apical HR 60 (JUL 26 22:33) 60 (JUL 26 22:33) 60 (JUL 26 22:33) Mon HR 60 (JUL 27 06:32) 60 (OCT 21 22:30) 82 (JUL 26 14:58) Resp Rate 18 (JUL 27 06:32) 15 (JUL 26 10:32) 18 (JUL 27 06:32) SBP 106 (JUL 27 06:32) 106 (JUL 27 06:32) 138 (JUL 26 22:30) DBP L 53 (JUL 27 06:32) L 49 (JUL 26 21:15) H 111 (JUL 26 10:32) MAP 68 (JUL 27 06:32) 68 (JUL 27 06:32) 118 (JUL 26 10:32) SpO2 95 (JUL 26 18:00) L 92 (JUL 26 10:32) 95 (JUL 26 18:00) General: Moderate distress. [...] 8.8 (JUL 27) 7.2 (JUL 17) 8.4 (OCT 16) 7.2 (JUL 13) HB 11.9 (JUL 27) 11.7 (OCT 17) 11.6 (OCT 16) 11.3 (OCT 13) HCT 38.1 (JUL 22) 40.4 (OCT 17) 37.0 (OCT 16) 35.4 (OCT 13) Plt 311 (JUL 27) 241 (OCT 17) 273 (OCT 16) 277 (OCT 13) Na 138 (JUL 22) 137 (OCT 17) 141 (OCT 16) 143 (OCT 13) K 4.9 (JUL 22) 4.2 (OCT 17) 3.7 (OCT 16) 4.1 (OCT 13) Cl 105 (JUL 22) 107 (JUL 17) 107 (JUL 16) 106 (OCT 13) CO2 26 (OCT 22) 24 (OCT 17) 29 (OCT 16) 30 (OCT 13) BUN H 29 (JUL 22) H 24 (JUL 17) H 27 (JUL 16) H 23 (JUL 13) Cr H 1.20 (JUL 22) H 1.06 (JUL 17) 1.00 (OCT 16) 1.00 (JUL 18) Glu R H 207 (JUL 27) H 172 (JUL 22) H 134 (JUL [...] 3.1 (JUL 09) No Radiology Results Found Diagnosis / problem [...] mg, d/c norvasc 10. d/w cm, difficult placement--still here documented in this encounter Plan of Treatment Not on file documented as of this encounter Visit Diagnoses Not on filedocumented in this encounter
--- OUTSIDE RECORDS SUMMARY | 2025-07-29 11:57 | XMS_ITS | Encounter Summary ---
Author Organization [employer] ([place], [place], [place], [place]) Address [address] [place] [address] Care Team Providers Care Fibreglass Laminator Name Role Phone Unavailable Primary Care Provider Unavailabl e Encounter Details Date Type Department Care Team (Late st Contact Info) Description 07/09/2019 Transcribed Document [facility] [place] [address] [place] [address] ProviderChano MD [address], [place] [id number] Social History Tobacco Use Types Packs/Day Years Used Date Smoking Tobacco: Never Assessed Comments Unknown Sex and Gender Information Value Date Recorded Sex Assigned at Not on file Legal Sex Female 2:07 PM CDT Gender Identity Not on file Sexual Orientation Not on file documented as of this encounter Miscellaneous Notes * Cerner Conversion Note - Chano ProviderMD - 07/09/2019 2:02 PM CDT [facility] Main OR IntraOp Summary Primary Physician: CATRACHITO THOMPSON, MD ONUR Finalized Date/Time: 07/12/19 14:56:04 Pt. Name: ADRIENNE SAVAGE Ileana CalderonB./Sex: 1950 Female Med Rec #: [id number] Physician: JACINTO OLIVA MD Financial #: [id number] Pt. Type: I Room/Bed: [facility]/ Admit/Disch: 07/11/19 09:51:00 - Institution: [facility] IntraOp Case Attendance Entry 1 Entry 2 Entry 3 Case Attendee CATRACHITO THOMPSON, MD Purvi MOHR Teresa A, RN GULLETTE, ERIN M. Role Performed Surgeon/Proceduralist, Sales Enablement Specialist, First Scrub, First First Time In 07/09/19 13:33:00 07/09/19 13:33:00 07/09/19 13:33:00 Time Out 07/09/19 15:09:00 07/09/19 14:53:00 07/09/19 15:09:00 Procedure Lumbar Microdiscectomy Lumbar Microdiscectomy Lumbar Microdiscectomy Other Attendee Superficial Wound Closed By: Last Modified By: Ann Loja RN Burdine, Teresa A, Ann Bustamante, EDISON 07/09/19 15:10:12 07/09/19 15:10:12 07/09/19 15:10:12 Entry 4 Entry 5 Entry 6 Case Attendee Saurav Juarez SIMPSON, KRISTEN, ADELA SHERIDAN, Oracle Consultant MIGUEL Role Performed Workday Financials Consultant SUPERVISOR BYPRODUCTS/Nurse Software Solutions Architect Anesthesiologist of Record Time In 07/09/19 13:33:00 07/09/19 13:33:00 07/09/19 13:33:00 Time Out 07/09/19 15:09:00 07/09/19 15:09:00 07/09/19 15:09:00 Procedure Lumbar Microdiscectomy Lumbar Microdiscectomy Lumbar Microdiscectomy Other Attendee Superficial Wound Closed By: Last Modified By: Ann Loja RN Burdine, Teresa A, RN Burdine, Teresa A, RN 07/09/19 15:10:12 07/09/19 15:10:12 07/09/19 15:10:12 Entry 7 Entry 8 Case Attendee FRANCI MICHEL PA-INT Smith, Patsy D RN Role Performed Physician volunteer services assistant Sales Enablement Specialist, First Time In 07/09/19 13:33:00 07/09/19 14:49:00 Time Out 07/09/19 15:09:00 07/09/19 15:09:00 Procedure Lumbar Microdiscectomy Lumbar Microdiscectomy Other Attendee Superficial Wound Closed By: Last Modified By: Ann Loja RN Burdine, Teresa A, RN 07/09/19 15:10:12 07/09/19 15:10:12 [facility] IntraOp Case Attendance Audit 07/09/19 15:10:12 Field Marketing Coordinator: [id number] Modifier: [id number] <+> Time Out 1 <*> Procedure Lumbar Microdiscectomy 2 <*> Procedure Lumbar Microdiscectomy 3 <+> Time Out 3 <*> Procedure Lumbar Microdiscectomy 4 <+> Time Out 4 <*> Procedure Lumbar Microdiscectomy 5 <+> Time Out 5 <*> Procedure Lumbar Microdiscectomy 6 <+> Time Out 6 <*> Procedure Lumbar Microdiscectomy 7 <+> Time Out 7 <*> Procedure Lumbar Microdiscectomy 8 <+> Time Out 8 <*> Procedure Lumbar Microdiscectomy 07/09/19 14:53:51 Field Marketing Coordinator: [id number] Modifier: [id number] 1 <*> Procedure Lumbar Microdiscectomy 2 <+> Time Out 2 <*> Procedure Lumbar Microdiscectomy 3 <*> Procedure Lumbar Microdiscectomy 4 <+> Time In 4 <*> Procedure Lumbar Microdiscectomy 5 <+> Time In 5 <*> Procedure Lumbar Microdiscectomy 6 <+> Time In 6 <*> Procedure Lumbar Microdiscectomy 7 <+> Time In 7 <*> Procedure Lumbar Microdiscectomy <+> 8 Case Attendee <+> 8 Role Performed <+> 8 Time In <+> 8 Procedure 07/09/19 14:15:56 Field Marketing Coordinator: [id number] Modifier: [id number] <+> 4 Case Attendee <+> 4 Role Performed <+> 4 Procedure <+> 5 Case Attendee <+> 5 Role Performed <+> 5 Procedure <+> 6 Case Attendee <+> 6 Role Performed <+> 6 Procedure <+> 7 Case Attendee <+> 7 Role Performed <+> 7 Procedure 07/09/19 14:05:43 Field Marketing Coordinator: [id number] Modifier: [id number] 1 <+> Time In 1 <*> Procedure Lumbar Microdiscectomy 2 <+> Time In 2 <*> Procedure Lumbar Microdiscectomy 3 <+> Time In 3 <*> Procedure Lumbar Microdiscectomy 07/09/19 13:02:22 Field Marketing Coordinator: [id number] Modifier: [id number] <+> 1 Procedure 2 <*> Procedure Lumbar Microdiscectomy 3 <*> Procedure Lumbar Microdiscectomy [facility] IntraOp Case Times Entry 1 Patient In Room Time 07/09/19 13:33:00 Out Room Time 07/09/19 15:09:00 Anesthesia Start Time 07/09/19 13:33:00 Stop Time 07/09/19 15:09:00 Surgery / Procedure Times Start Time 07/09/19 14:02:00 Stop Time 07/09/19 14:56:00 Last Modified By: Ann Loja RN 07/09/19 15:09:59 [facility] IntraOp Case Times Audit 07/09/19 15:09:59 Field Marketing Coordinator: [id number] Modifier: [id number] <+> 1 Out Room Time <+> 1 Stop Time 07/09/19 14:56:53 Field Marketing Coordinator: [id number] Modifier: [id number] <+> 1 Stop Time 07/09/19 14:25:46 Field Marketing Coordinator: [id number] Modifier: [id number] <+> 1 Start Time [facility] IntraOp Cautery Entry 1 Entry 2 ESU Identification Cautery Type Monopolar ESU BiPolar ESU Cautery Type Comments ID Number [id number] ID Type Hospital Number Hospital Number Cautery Settings Cut Setting 40 8 Coag Setting 40 40 Blend Setting Bipolar Setting Argon Setting Argon Berkowitz ESU Grounding Pad Ground Pad Type Adult Grounding Pad Type Comment Grounding Pad Site Right thigh Grounding Pad Site Comment Grounding Pad Ann Loja RN Applied By Grounding Pad Site Warm, Dry, Intact Skin Condition Before Cautery Site Skin Condition WNL Before Comment Grounding Pad Site Unchanged Skin Condition After Cautery Site Skin Condition WNL After Comment Last Modified By: Ann Loja RN Burdine, Teresa A, RN 07/09/19 13:01:36 07/09/19 13:01:36 [facility] IntraOp Communication Entry 1 Entry 2 Communication To Family/Significant other Family/Significant other Comment start CLOSING Communication By Ann Loja RN Burdine, Teresa A, RN Date and Time 07/09/19 14:05:00 07/09/19 14:54:00 Last Modified By: Ann Loja RN Burdine, Teresa A, RN 07/09/19 14:53:01 07/09/19 14:55:22 [facility] IntraOp Communication Audit 07/09/19 14:55:22 Field Marketing Coordinator: [id number] Modifier: [id number] <+> 2 Communication By <+> 2 Date and Time <+> 2 Communication To <+> 2 Comment 07/09/19 14:53:01 Field Marketing Coordinator: [id number] Modifier: [id number] <+> 1 Date and Time [facility] IntraOp Counts Verification Entry 1 Procedure Lumbar Microdiscectomy Count Info Count Type Sponge, Sharps, Miscellaneous Counts Verification Baseline/pre-procedure Sequence Counts Performed By Count Performed By EVI CODY (Scrub) Count Performed By Ann Loja RN (RN) Last Modified By: Ann Loja RN 07/09/19 13:01:49 [facility] IntraOp Counts Final Entry 1 Procedure Lumbar Microdiscectomy Final Count Info Count Type Sponge, Sharps, Miscellaneous Counts Verification Skin Closure/end of Sequence procedure Count Results Correct, surgeon notified Counts Performed By Count Performed By EVI CODY (Scrub) Count Performed By Ebony Michel RN (RN) Last Modified By: Ann Loja RN 07/09/19 14:56:47 [facility] IntraOp Cultures and Spec Summary Entry 1 Cultrures and Specimens Specimen Ordered: Yes Test(s) Routine/Path-Lab Requested/Final Disposition Last Modified By: Ann Loja RN 07/09/19 14:16:27 General Comments: A. LUMBAR DISC MATERIAL [facility] IntraOp Departure from OR Entry 1 Integumentary Assessment Integumentary WDL Assessment WDL Transfer/Handoff Transfer to PACU Phase I Handoff Method Phone call Post-op Transport Stretcher/Prabhjot Via Patient Transport FRANCI MICHEL, Accompanied by HEMAL, GLENDA WILLETT CRNA Last Modified By: Ann Loja RN 07/09/19 14:20:43 [facility] IntraOp Dressing and Packing Entry 1 Type Dressing Location opsite Wound Dressing Item Occlusive dressing, Steristrip, Skin adhesive Applied By FRANCI MICHEL PA-INT Other Comments MASTISOL, STERISTRIP, COVADERM Last Modified By: Ann Loja RN 07/09/19 14:57:56 [facility] IntraOp Dressing and Packing Audit 07/09/19 14:57:56 Field Marketing Coordinator: [id number] Modifier: [id number] <*> Wound Dressing Item Occlusive dressing, Steristrip 1 <+> Other Comments [facility] IntraOp Fire Risk Assessment Entry 1 Fire Info Surgical Site or 0- No Incision Above the Xyphoid Open O2 Source 0- No (Mask or Cannula) Available Ignition 1- Yes (ESU, Laser, Light Source) Fire Risk 1 Assessment Score Fire Score Fire Risk Yes Assessment Complete Fire Risk Ann Loja RN Assessment Verified By Fire Risk 07/09/19 14:05:00 Assessment Verified Date/Time Fire Risk Standard Fire Yes Safety Precautions Followed Last Modified By: Ann Loja RN 07/09/19 14:08:34 [facility] IntraOp Fire Risk Assessment Audit 07/09/19 14:08:34 Field Marketing Coordinator: [id number] Modifier: [id number] <+> 1 Fire Risk Assessment Complete 07/09/19 14:05:50 Field Marketing Coordinator: [id number] Modifier: [id number] <+> 1 Fire Risk Assessment Verified Date/Time [facility] IntraOp General Case Scientific Software Engineer 1 Case Information OR Add-On [facility] Case Level 1 Room Verified Yes Wound Class I - Clean Specialty SN Neurosurgery Anesthesia Type General ASA Class 3 Diagnosis Preop Diagnosis LUMBAR STENOSIS Postop Same As Preop No Postop Diagnosis PLEASE SEE MD NOTES. Last Modified By: Ann Loja RN 07/09/19 14:08:27 [facility] IntraOp Intraoperative Assessment Entry 1 Handoff Method Bedside/Face to face Valid History / Yes Physical in Chart Preoperative Yes Checklist Reviewed/Evaluated Allergies Reviewed Yes Patient is Latex No Sensitive Isolation Not applicable Precautions Noted Level of WDL Consciousness (WDL = Alert, Oriented to Person, Place, and Time) Skin Assessment Yes Verified Present Upon IVs Arrival to OR Last Modified By: Ann Loja RN 07/09/19 14:13:17 [facility] IntraOp Intraoperative Assessment Audit 07/09/19 14:13:17 Field Marketing Coordinator: [id number] Modifier: [id number] <+> 1 Patient is Latex Sensitive [facility] IntraOp Intraoperative Equipment Entry 1 Type Equipment Equipment Equipment Oksana Suction System Setting 200 Intraop Monitoring Antiembolic Devices Antiembolic Devices Sequential compression device, knee high Antiembolic Device Bilateral Location Scopes Photo/Video Documentation Last Modified By: Ann Loja RN 07/09/19 14:09:30 [facility] IntraOp Medication Admin Entry 1 Entry 2 Entry 3 Medication/Irrigant lidocaine 1% w/ Bacitracin 50,00units SPNG SURGFOAM epinephrine 1:100,000 powder vial [id number] 30ml vial - [id number] Combo Med List Time Administered Route of LOCAL MIXED WITH NS IRRIGATION TOPICAL Administration Dose Dose 10 45251 1 Unit of Measure ml units pkt Volume Administered By ONUR WINSTON MD, MD PHILLIPS MD, GABRIEL, MD PHILLIPS MD, MD ONUR Procedure Irrigation Irrigant Volume In Irrigant Volume Out Last Modified By: Ann Loja RN Burdine, Teresa A, RN Burdine, Teresa A, RN 07/09/19 14:18:11 07/09/19 14:18:11 07/09/19 14:18:11 Entry 4 Entry 5 Medication/Irrigant Marcaine 0.25% 30ml thrombin 5000units vial - [id number] topical powder - [id number] Combo Med List Time Administered Route of LOCAL TOPICAL Administration Dose Dose 10 5000 Unit of Measure ml units Volume Administered By ONUR WINSTON MD, MD PHILLIPS MD, MD ONUR Procedure Irrigation Irrigant Volume In Irrigant Volume Out Last Modified By: Ann Loja RN Burdine, Teresa A, RN 07/09/19 14:18:11 07/09/19 14:18:11 [facility] IntraOp Patient Positioning Entry 1 Procedure Lumbar Microdiscectomy Body Position Prone Left Arm Position Secured on padded arm board Right Arm Position Secured on padded arm board Left Leg Position Elevated Right Leg Position Elevated Feet Uncrossed Yes Pressure Points Yes Checked Positioning Devices Leonid Frame, Pillows, Safety Strap, Leg(s), Head Rest, Pad, Arm, Pad, Arm Positioning Device arm protectors in place Comments bilateral arms. Leonid pillow in place Positioned By Ann Loja RN, CATRACHITO THOMPSON, MD ONUR Position Verified Positioning Yes Verified by Anesthesia Positioning Yes Verified by Surgeon Last Modified By: Ann Loja RN 07/09/19 13:02:18 [facility] IntraOp Sign In Entry 1 Patient, Site, Yes Procedure Identified Surgical Consent Yes Confirmed Relevant Surgical Yes Documents Available Surgical Site Yes Marked by person performing procedure Anesthesia Machine Yes Check Completed Medication Checks Yes Completed Allergies Yes Airway Difficult Yes Airway/Aspiration Intervention Equipment Available Blood Loss Risk No Blood Loss Yes Intervention Equipment Prepared and Ready Hypothermia Risk No Warming Measures Yes Taken Last Modified By: Ann Loja RN 07/09/19 14:06:07 [facility] IntraOp Sign Out Entry 1 [...] Checklist Yes Elements Complete? RN Sign Out Ann Loja RN Signature RN Sign Out 07/09/19 15:09:00 Signature Date/Time Plan of Care Outcome - [...] related to extraneous objects Last Modified By: Ann Loja RN 07/09/19 15:10:07 [facility] IntraOp Sign Out Audit 07/09/19 15:10:07 Field Marketing Coordinator: [id number] Modifier: [id number] <+> 1 RN Sign Out Signature Date/Time [facility] IntraOp Skin Prep Entry 1 Procedure Lumbar Microdiscectomy Prescribed Yes Pre-Surgical Prep Completed Prep Area BACK Intraop Prep Integumentary WDL Assessment WDL Prep Agents Alcohol, Chlorhexadine gluconate Prep by CATRACHITO THOMPSON, MD ONUR Hair Removal Methods No hair removal performed Last Modified By: Ann Loja RN 07/09/19 14:06:37 [facility] IntraOp Surgical Procedures Entry 1 Procedure Lumbar Microdiscectomy Additional (REDO LUMBAR MICRO Procedure DISCECTOMY) Description Primary Procedure Yes Primary Surgeon CATRACHITO THOMPSON, MD ONUR Start 07/09/19 14:02:00 Stop 07/09/19 14:56:00 Anesthesia Type General Specialty SN Neurosurgery Wound Class I - Clean Last Modified By: Ann Loja RN 07/09/19 15:10:09 [facility] IntraOp Surgical Procedures Audit 07/09/19 15:10:09 Field Marketing Coordinator: [id number] Modifier: [id number] <+> 1 Stop 07/09/19 14:09:12 Field Marketing Coordinator: [id number] Modifier: [id number] <+> 1 Start [facility] IntraOp Temp Regulation Devices Entry 1 Temp Regulation Temperature Warm blankets Regulation Device Temperature Lower body Regulation Site Temperature Ann Loaj RN Regulation Device Applied by Last Modified By: Ann Loja RN 07/09/19 14:09:08 [facility] IntraOP Time Out Entry 1 Procedure to be Lumbar Microdiscectomy Performed Time Out Time Out Pause Time 07/09/19 13:59:00 All activity Yes suspended (unless life threatening emergency) Team Verbally Correct patient Confirms Information identity, Correct side and site are marked, Consent form is present and accurate, Agreement on the procedure to be done, Correct patient position, Relevant images/results properly labeled/appropriately displayed, Confirm antibiotics have been administered, Confirm the skin prep has dried, Confirm prosthesis/implant/devic e is present, Performed in location of procedure after prepped/draped Antibiotic Yes Prophylaxis Administered Or In Progress Within the Last 60 Minutes Beta Mitzi N/A Administered Venous Yes Thromboembolism Prophylaxis Required Anticipated Critical Events Surgeon None expected Anesthesia Provider Patient specific concerns, None expected Nursing Assures Sterility of instruments, Equipment concerns or issues, Implant Availability Essential Imaging Yes Labeled and Displayed Last Modified By: Ann Loja RN 07/09/19 14:03:08 [facility] IntraOP Time Out Audit 07/09/19 14:03:08 Field Marketing Coordinator: [id number] Modifier: [id number] 1 <+> Time Out Pause Time 1 <*> Procedure to be Performed Lumbar Microdiscectomy [facility] IntraOp X-Ray and Images Entry 1 X-Ray/Imaging Type Fluoroscopy Fluoroscopy Type C-Arm Site BACK Pilot Plant Operator Name Saurav Juarez, Oracle Consultant Protective Devices Yes Used Last Modified By: Ann Loja RN 07/09/19 14:18:32 Case Comments <None> Finalized By: SOM BERKOWITZ Document Signatures Signed By: Ann Loja RN 07/09/19 15:10 SOM BERKOWITZ 07/12/19 14:56 Unfinalized History Date/Time Username Reason for Unfinalizing Freetext Reason for Unfinalizing 07/12/19 14:55 [email or web address] Correct Billing Electronically signed by [facility] Conversion Bottler Helper Cerner at 01/23/2023 1:23 PM CDT documented in this encounter Plan of Treatment Not on file documented as of this encounter Visit Diagnoses Not on filedocumented in this encounter
--- OUTSIDE RECORDS SUMMARY | 2025-07-29 11:57 | XMS_ITS | Encounter Summary ---
Author Organization [employer] ([place], [place], [place], [place]) Address [address] [place] [address] Care Team Providers Care Food Taster Name Role Phone Unavailable Primary Care Provider Unavailabl e Encounter Details Date Type Department Care Team (Late st Contact Info) Description 07/09/2019 Transcribed Document [facility] [place] [address] [place] [address] ProviderChano MD [address], [place] [id number] Social History Tobacco Use Types Packs/Day Years Used Date Smoking Tobacco: Never Assessed Comments Unknown Sex and Gender Information Value Date Recorded Sex Assigned at Not on file Legal Sex Female 2:07 PM CDT Gender Identity Not on file Sexual Orientation Not on file documented as of this encounter Miscellaneous Notes * Cerner Conversion Note - Historical ProviderMD - 07/09/2019 8:42 AM CDT ED Discharge Entered On: 07/09/2019 8:42 EDT Performed On: 07/09/2019 8:42 EDT by MEME MESSER Discharge Process Patient Disposition : Admit/Observe Personal Belongings With Patient : Yes Teaching Evaluation : Verbalizes understanding IV Discontinued : No Nursing Documentation Completed : Yes MEME MESSER - 07/09/2019 8:42 EDT Admission, ED Nurse Report Accepted By : 6th Floor RN Nurse Report Acceptance Time : 07/09/2019 8:42 EDT `Nurse Report (Hand Off) : Called Mode Of Departure : MEME Crandall - 07/09/2019 8:42 EDT documented in this encounter Plan of Treatment Not on file documented as of this encounter Visit Diagnoses Not on filedocumented in this encounter
--- OUTSIDE RECORDS SUMMARY | 2025-07-29 11:57 | XMS_ITS | Encounter Summary ---
Author Organization [employer] ([place], [place], [place], [place]) Address [address] [place] [address] Care Team Providers Care Header Up Name Role Phone Unavailable Primary Care Provider Unavailabl e Encounter Details Date Type Department Care Team (Late st Contact Info) Description 07/09/2019 Transcribed Document [facility] [place] [address] [place] [address] ProviderChano MD [address] [place], [place] [id number] Social History Tobacco Use Types Packs/Day Years Used Date Smoking Tobacco: Never Assessed Comments Unknown Sex and Gender Information Value Date Recorded Sex Assigned at Not on file Legal Sex Female 2:07 PM CDT Gender Identity Not on file Sexual Orientation Not on file documented as of this encounter Miscellaneous Notes * Cerner Conversion Note - Historical ProviderMD - 07/09/2019 12:20 AM CDT ED Event Note Entered On: 07/09/2019 7:20 EDT Performed On: 07/09/2019 0:20 EDT by ANKIT WINSLOW RN ED Event Note ED Event Date/Time : 07/09/2019 0:20 EDT ED Description of Event : pt placed on hospital bed for comfort. ANKIT WINSLOW RN - 07/09/2019 7:20 EDT Electronically signed by Julian Wheeler Conversion Mexican Food Machine Tender Certrish at 01/23/2023 1:12 PM CDT documented in this encounter Plan of Treatment Not on file documented as of this encounter Visit Diagnoses Not on filedocumented in this encounter
--- OUTSIDE RECORDS SUMMARY | 2025-07-29 11:57 | XMS_ITS | Encounter Summary ---
Author Organization [employer] ([place], [place], [place], [place]) Address [address] [place] [address] Care Team Providers Care Front Office Associate Name Role Phone Unavailable Primary Care Provider Unavailabl e Encounter Details Date Type Department Care Team (Late st Contact Info) Description 07/09/2019 Transcribed Document [facility] [place] Medicine [address] [place] [address] ProviderChano MD [address] [place], [place] [address] Social History Tobacco Use Types Packs/Day Years Used Date Smoking Tobacco: Never Assessed Comments Unknown Sex and Gender Information Value Date Recorded Sex Assigned at Not on file Legal Sex Female 2:07 PM CDT Gender Identity Not on file Sexual Orientation Not on file documented as of this encounter Miscellaneous Notes * Cerner Conversion Note - Chano ProviderMD - 07/09/2019 4:26 PM CDT Consult Phone Call Documentation Entered On: 07/09/2019 16:45 EDT Performed On: 07/09/2019 16:26 EDT by Nahomy Kim, RN Phone Call for Consults Consult Reason : Confusion Provider Service Notified Name : Neurology Physician Covering for Consult : GIRMA GONZALEZ MD-ELIAN Date and Time Call Returned : 07/09/2019 16:34 EDT Nahomy Kim, RN - 07/09/2019 16:44 EDT documented in this encounter Plan of Treatment Not on file documented as of this encounter Visit Diagnoses Not on filedocumented in this encounter
--- OUTSIDE RECORDS SUMMARY | 2025-07-29 11:57 | XMS_ITS | Encounter Summary ---
Author Organization [employer] ([place], [place], [place], [place]) Address [address] [place] [address] Care Team Providers Care Interviewing Clerk Name Role Phone Unavailable Primary Care Provider Unavailabl e Encounter Details Date Type Department Care Team (Late st Contact Info) Description 07/09/2019 Transcribed Document [facility] [place] [facility] [place] [address] Chano Gatica MD [address], [place] [id number] Social History Tobacco Use Types Packs/Day Years Used Date Smoking Tobacco: Never Assessed Comments Unknown Sex and Gender Information Value Date Recorded Sex Assigned at Not on file Legal Sex Female 2:07 PM CDT Gender Identity Not on file Sexual Orientation Not on file documented as of this encounter Miscellaneous Notes * Cerner Conversion Note - Chano Gatica MD - 07/09/2019 3:07 PM CDT DATE OF PROCEDURE:07/09/2019 NEUROSURGERY OPERATIVE PORT PREOPERATIVE DIAGNOSIS(ES): Refractory, intractable back and leg pain. POSTOPERATIVE DIAGNOSIS(ES): Refractory, intractable back and leg pain. PROCEDURE: Redo right L3-4 minimally invasive surgery microdiscectomy. SURGEON: Thom Lucas MD CUSTOMER ENGAGEMENT ANALYST: Ronel Michel PA-C. Scrubbed, present, assisted including closure of the wound. ANESTHESIA: General endotracheal anesthesia. ESTIMATED BLOOD LOSS: 30 mL. SPECIMEN: Cultures from the disk space. FINDING: Recurrent disk herniation. No evidence of infection. BRIEF HISTORY: Ms. Savage is a 68-year-old, she underwent a lumbar discectomy three months prior. She has had progressive problems over the last month. An updated MRI showed a prominent disk bulge. She was attempted to manage this conservatively, but her symptoms escalated to the point that they need to come into the ER last night. No acute findings were present in that time, there was a part of the differential that suspected or included possible diskitis as contributing to her pain, which was out of proportion to radiographic findings. She was admitted for pain management. I spoke to the , I felt that an exploration and then a redo discectomy was indicated to explore the area, further decompress the nerve, take cultures and treat any relevant findings at that time. OPERATIVE DETAILS: The patient was intubated without incident, flipped from the supine to the prone position onto the operating table. The pressure points were identified and padded. Lumbar spine was prepped and draped in the standard fashion. Time-out was performed. Antibiotics were given. A right paramedian incision was localized with C-arm fluoroscopy and spinal needle incision performed with a 15 blade knife, continued cautery dissection through the subcu fat. The lumbar fascia was incised. dilators were docked over the inferior L3 lamina. A 7 cm x 18 mm tube was secured into place. The operative microscope was brought into the field. The x-ray confirmed location. The previous laminotomy defect was identified and we then defined bone above and below the previous laminotomy. The laminotomy was expanded with the Midas drill after periosteal dissection was completed. The scar tissue and ligament were carefully dissected away from the thecal sac. Thecal sac was now readily identified. It was retracted medially, sweeping with a ball hook, several fragments were removed from outside the disk space that represented recurrent disk. The disk space was further explored, irrigated out. There was no evidence of diskitis or other infectious process intraoperatively. After copiously irrigating the wound, the wound was explored no further pressure was noted on the nerve. Meticulous hemostasis was achieved and then the muscle was injected 0.25% Marcaine in the fascia and subcuticular layers were closed separately. Steri-Strips was used over the wound for final wound closure. Dressing placed over the wound. Patient flipped from prone to supine position, extubated without incident, left the OR in stable condition indication. Thom Lucas MD Dict: 07/09/2019 15:07:42 Trans: 07/09/2019 19:45:31 CC1: Thom Lucas MD Electronically signed by Summer, [facility] Conversion Insole Stiffener Cerner at 01/23/2023 1:08 PM CDT documented in this encounter Plan of Treatment Not on file documented as of this encounter Visit Diagnoses Not on filedocumented in this encounter
--- OUTSIDE RECORDS SUMMARY | 2025-07-29 11:57 | XMS_ITS | Encounter Summary ---
Author Organization [employer] ([place], [place], [place], [place]) Address [address] [place] [address] Care Team Providers Care Investment Advisor Name Role Phone Unavailable Primary Care Provider Unavailabl e Encounter Details Date Type Department Care Team (Late st Contact Info) Description 07/24/2019 Transcribed Document [facility] Radiology [address] [place] [address] Abby Reid MD [address] [place] [address] [place] [address] Social History Tobacco Use Types Packs/Day Years Used Date Smoking Tobacco: Never Assessed Comments Unknown Sex and Gender Information Value Date Recorded Sex Assigned at Not on file Legal Sex Female 2:07 PM CDT Gender Identity Not on file Sexual Orientation Not on file documented as of this encounter Miscellaneous Notes * Cerner Conversion Note - Abby Reid MD - 07/24/2019 10:49 AM EDT Patient: LUDY ANTONIO Age: 68 [...] chew) Flonase 0.05 mg/inh nasal spray: 2 [place], Nasal, Daily, 16 Gram, 0 Refill(s) Lantus [...] Bedtime Flonase 0.05 mg/inh nasal spray 2 [place], Nasal, Daily gabapentin 300 mg oral capsule [...] Problem list: Medical Pain//chronic / SNOMED CT 143654511 / Confirmed At risk for sleep apnea / IMO 30630326 / Confirmed Back pain / SNOMED CT 2702006552 / Confirmed Cataract///beginning stage / SNOMED CT 758104012 / Confirmed Chest pain///cath negative / SNOMED CT 17872423 / Confirmed Completely occulded L carotid / SNOMED CT 7271385081 / Confirmed Lumbar disc disease / SNOMED CT 4291753720 / Confirmed Fibromyalgia / SNOMED CT 729637477 / Confirmed Hiatal hernia / SNOMED CT 099986040 / Complaint of H/O ischemic left MCA stroke / SNOMED CT 6035901928 / Confirmed Memory deficit///slow recall / SNOMED CT 5363636496 / Confirmed Numbness and tingling//right leg / SNOMED CT 4262464069 / Confirmed Obesity / SNOMED CT 9554883913 / Confirmed Right leg pain / SNOMED CT 3100556422 / Confirmed Colon polyps / SNOMED CT 354976363 / Confirmed Sleep apnea///risk / SNOMED CT 960921328 / Confirmed Wears glasses / SNOMED CT 531449175 / Confirmed, Active Problems (24) Acid reflux [...] 24 hrs) Last Charted Minimum Maximum Temp 97.3 (JUL 24 06:06) 97.3 (JUL 24 06:06) 98.2 (JUL 23 21:00) Apical HR 86 (JUL 23 22:22) 85 (JUL 23 10:27) 86 (JUL 23 22:22) Mon HR 64 (JUL 24 06:06) 64 (JUL 24 06:06) 82 (JUL 23 10:28) Resp Rate 16 (JUL 24 06:06) 16 (JUL 23 21:00) 18 (JUL 18 10:28) SBP 138 (JUL 24 06:06) 138 (JUL 24 06:06) H 156 (JUL 23 21:00) DBP L 51 (JUL 24 06:06) L 51 (JUL 23 21:00) 80 (JUL 18 10:28) MAP 106 (JUL 24 06:06) 78 (JUL 23 21:00) 106 (JUL 24 06:06) SpO2 96 (JUL 23 10:28) 96 (JUL 23 10:28) 96 (JUL 23 10:28) General: Moderate distress. Neck: Supple, Non-tender, No [...] R H 172 (JUL 17) H 134 (JUL 16) H 213 (JUL 13) H 202 (JUL 07) Ca 9.0 (JUL 17) 9.1 (JUL 16) 9.4 (JUL 13) 9.0 (JUL 07) PT 9.9 (JUL 04) 10.1 (JUL 03) INR 0.9 (JUL 04) 0.9 (JUL 03) PTT 28.0 (JUL 03) AST 15 (JUL 16) 18 (JUL 12) 16 (JUL 09) 17 (JUL 03) ALT 24 (JUL 16) 25 (JUL 12) 23 (JUL 04) 21 (JUL 03) ALK P 56 (JUL 21) 56 (JUL 12) 69 (JUL 09) 63 (JUL 03) T Bili 0.3 (JUL 21) 0.3 (JUL 12) 0.3 (JUL 09) 0.4 (JUL 03) PTN L 6.2 (JUL 21) 6.7 (JUL 12) 7.1 (JUL 09) 7.0 (JUL 03) ALB L 2.7 (JUL 21) L 2.8 (JUL 12) L 3.1 (JUL 09) L 3.2 (JUL 08) Radiology Results (Last 48 hours) [id number] -- 07/11/2019 09:51 MRI Brain WO (07/22/2019 15:59) Result: MRI OF THE BRAIN HISTORY: Altered mental status.COMPARISON: April 2016.PROCEDURE: Multiplanar MR imaging of the brain was performed in multipleMR sequences.FINDINGS: Limited images the proximal cord are unremarkable. Theventricles are enlarged. There is diffuse atrophy. There is moderateperiventricular and deep white matter change likely related to smallvessel disease. There is no extra-axial fluid or midline shift. There isno evidence of acute hemorrhage. Flow-voids are appropriate.Diffusion-weighted images demonstrate no evidence of acute CVA. Limitedimages of the paranasal sinuses are unremarkable. Left parietalencephalomalacia is consistent with a remote infarct.IMPRESSION: Atrophy and white matter change without acute process. 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
--- OUTSIDE RECORDS SUMMARY | 2025-07-29 11:57 | XMS_ITS | Encounter Summary ---
Author Organization [employer] ([place], [place], [place], [place]) Address [address] [place] [address] Care Team Providers Care Manager Operations And Procurement Name Role Phone Unavailable Primary Care Provider Unavailabl e Encounter Details Date Type Department Care Team (Late st Contact Info) Description 07/09/2019 Transcribed Document [facility] [place] [facility] [place] [address] ProviderChano MD [address], [place] [id number] Social History Tobacco Use Types Packs/Day Years Used Date Smoking Tobacco: Never Assessed Comments Unknown Sex and Gender Information Value Date Recorded Sex Assigned at Not on file Legal Sex Female 2:07 PM CDT Gender Identity Not on file Sexual Orientation Not on file documented as of this encounter Miscellaneous Notes * Cerner Conversion Note - Chano ProviderMD - 07/09/2019 12:26 PM CDT Nutrition Assessment Entered On: 07/12/2019 13:34 EDT Performed On: 07/12/2019 13:34 EDT by Ludmila Velasco Student Nutrition Assessment Nutrition Assessment Reason : Automatic referral Ludmila Velasco Student - 07/12/2019 13:32 EDT Nutrition Recommendations Dietitian Recommendations : 07/12: RD consult rec'd for BMI>40. Pt on regular diet. No intakes recorded. Nsg election assistant states pt has been eating well, finishing most of her meals when she sits in the room with her. Spoke to RN about elevated BG levels and pt to be changed to diabetic diet. No skin breakdown or UWL noted in chart. RD reviewed all labs and meds. Will rescreen in 7-10 days or available prn. Ludmila Velasco Student - 07/12/2019 14:35 EDT Nutrition Care Level : No nutritional risk Ludmila Velasco, Student - 07/12/2019 13:32 EDT documented in this encounter Plan of Treatment Not on file documented as of this encounter Visit Diagnoses Not on filedocumented in this encounter
--- OUTSIDE RECORDS SUMMARY | 2025-07-29 11:57 | XMS_ITS | Encounter Summary ---
Author Organization [employer] ([place], [place], [place], [place]) Address [address] [place] [address] Care Team Providers Care Aemt Name Role Phone Unavailable Primary Care Provider Unavailabl e Encounter Details Date Type Department Care Team (Late st Contact Info) Description 07/09/2019 Transcribed Document [facility] [place] [address] [place] [address] ProviderChano MD [address], [place] [id number] Social History Tobacco Use Types Packs/Day Years Used Date Smoking Tobacco: Never Assessed Comments Unknown Sex and Gender Information Value Date Recorded Sex Assigned at Not on file Legal Sex Female 2:07 PM CDT Gender Identity Not on file Sexual Orientation Not on file documented as of this encounter Miscellaneous Notes * Cerner Conversion Note - Chano ProviderMD - 07/09/2019 12:59 PM CDT UM Authorization Entered On: 07/09/2019 13:00 EDT Performed On: 07/09/2019 12:59 EDT by ROSEY SANTILLAN, Waiter/Waitress Room Service Primary Insurance Authorization Authorization and Policy Numbers : Insurance 1 Health Plan: [employer] G[employer] H[employer] Policy Number: [id number] Authorization Number: Insurance Primary Name : [employer] [id number] Authorization Status-Primary : Opo status approv Authorization Fax Number-Primary : [phone] Auth/Referral Phone Number-Primary : [phone] x [phone] Auth/Referral Contact Name-Primary : Saulo Hanks Authorized Service Begin Date-Primary : 07/08/2019 EDT Observation Authorization Nbr-Primary : [id number] Authorization Comments-Primary : submitted for and obtained opo approval from [facility] opo auth# [id number] Historical Authorization Comments-Primary : No Authorization Comments Found ROSEY SANTILLAN, Waiter/Waitress Room Service - 07/09/2019 12:59 EDT documented in this encounter Plan of Treatment Not on file documented as of this encounter Visit Diagnoses Not on filedocumented in this encounter
--- OUTSIDE RECORDS SUMMARY | 2025-07-29 11:58 | XMS_ITS | Encounter Summary ---
Author Organization [employer] ([place], [place], [place], [place]) Address [address] [place] [address] Care Team Providers Care Medical Records Field Technician Name Role Phone Unavailable Primary Care Provider Unavailabl e Encounter Details Date Type Department Care Team (Late st Contact Info) Description 07/09/2019 Transcribed Document [facility] [place] [address] [place] [address] ProviderChano MD [address] [place], [place] [phone] Social History Tobacco Use Types Packs/Day Years [...] ProviderMD - 07/09/2019 3:05 PM CDT Evaluation, Occupational Therapy Entered On: 07/10/2019 10:23 EDT Performed On: 07/10/2019 9:37 EDT by GILMA SERNA, OTR/L General Information, OT Visit Type, OT : Initial evaluation Patient Orders : Order Date Order Ordering 07/09/2019 15:06 Occupational Therapy Evaluation and Treatme Ordered By: CATRACHITO THOMPSON, MD ONUR Active Diagnoses : 07/09/2019 12:00 Other intervertebral disc displacement, lumbar region 07/08/2019 12:00 Back pain 07/08/2019 12:00 Dorsalgia, unspecified 07/08/2019 12:00 Post surgery problem 07/08/2019 12:00 Weakness Admission Date : 07/08/2019 21:23 Personal Devices : Personal Devices Dentures, upper Assistive Devices : Assistive Devices No Devices Recorded General Information Comment, OT : Pt with recurrent R LE and backnpain and Sx 07/09/2019 redo of L3-4 minimal invasive microdiscectomy. PMH: DM, memory deficits, sleep apnea, CHF, fidbromyelgia GILMA SERNA OTR/Rob - 07/10/2019 10:08 EDT General Status Patient Received Status : Supine in bed Treatment Start Time : 07/10/2019 9:37 EDT Patient Left Status : Supine in bed RN/PCT Informed Comment : Jose apprved thrapy Treatment End Time : 07/10/2019 9:58 EDT Treatment Time : 21 Minute(s) GILMA SERNA OTR/Rob - 07/10/2019 10:08 EDT History and Environment, OT Living Situation, Therapy : Home Patient Lives With : Spouse Persons Assisting Patient at Home : Spouse Professional Skilled Services : None Persons Providing Information : Patient (Comment: unclear of accuracy [GILMA SERNA OTR/Rob - 07/10/2019 10:08 EDT] ) ADL Equipment Comment : Rwx, LE AE from previous sx Home Setup : One story Bedroom Location : Main level Bathroom #1 Location : Main level Stairs : Yes Stair Location(s) : Outside Outside Stairs, Number of Steps : 2 Railing Outside : No GILMA SERNA OTR/Rob - 07/10/2019 10:08 EDT Prior LOF Bathing, OT : Independent Prior LOF Bed Mobility : Independent Prior LOF Upper Body Dressing, OT : Independent Prior LOF Lower Body Dressing, OT : Independent Prior LOF Toileting : Independent Prior LOF Transfer : Independent Prior LOF Grooming, OT : Independent GILMA SERNA OTR/Rob - 07/10/2019 10:08 EDT Prior LOF Assist with ADL Comment : Pt states she drives and has daughter to asst with cleaning lately, pt appeared unclear with accuracy responses to Q&A GILMA SERNA OTR/Rob - 07/10/2019 10:08 EDT Upper Extremity Upper Extremity Dominance : Left Right UE Active ROM : WFL Left UE Active ROM : WFL GILMA SERNA OTR/Rob - 07/10/2019 10:08 EDT RadialDeviation 0-20 Shoulder Flexion 0-180 : 3/fair (Comment: NO RESISTANCE TO BUE SECONDARY TO TYPE OF SX [DAPHNE JENISEPRIMITIVO, OTR/L - 07/10/2019 10:08 EDT] ) DAPHNE, JENSIEPRIMITIVO OTR/L - 07/10/2019 10:08 EDT RadialDeviation 0-20 LUE Shoulder Flexion 0-180 : 3/fair DAPHNE, JENISEPRIMITIVO OTR/L - 07/10/2019 10:08 EDT Fine Motor Coordination Impaired : No DAPHNE, JENISEPRIMITIVO, OTR/L - 07/10/2019 10:08 EDT Self Care/Home Management, OT Self Feeding Assist Level, OT : Independent, complete Grooming Assist Level, OT : Assist, minimal Bathing Assist Level, OT : Assist, maximal Upper Body Dressing Assist Level, OT : Assist, minimal Lower Body Dressing Assist Level, OT : Assist, maximal Toileting Assist Device Comment : TBA Toilet Transfer Comment : TBA Bed/Chair/WC Transfer Comment : TBA GILMA SERNA OTR/L - 07/10/2019 10:08 EDT Functional Mobility Mobility Grid Bed Roll Left : Rehab Maximal assistance Bed Roll Right : Rehab Maximal assistance DAPHNE JENISEPRIMITIVO OTR/L - 07/10/2019 10:08 EDT Bed Comment : Pt refused EOB stating I did this already and my back hurts too bad GILMA SERNA OTR/L - 07/10/2019 10:08 EDT Cognition Assessment, OT Orientation : Not oriented to place, Not oriented to time GILMA SERNA OTR/L - 07/10/2019 10:08 EDT Indication Assessment, OT Occupational Therapy Indicated : Yes Problem List, OT : Impaired, bed mobility, Impaired, activities daily living, Impaired, transfers GILMA SERNA OTR/L - 07/10/2019 10:08 EDT Plan of Care, OT OT Tx Plan/Goals Established w Patient : Yes OT Frequency Rehab : Other: 2-5x/week OT Duration Rehab : Other: 14 days OT Treatments Planned : Activities of daily living, Safety education, Therapeutic activities GILMA SERNA OTR/L - 07/10/2019 10:08 EDT Barrel Charrer Goals, OT Toileting LTG Grid Goal #1 Activity : Toileting Assist : Independent, complete Date to Meet : 07/24/2019 EDT Goal Status : Initial goal DAPHNE, AMEALIA, OTR/L - 07/10/2019 10:08 EDT Toilet Transfer LTG Grid Goal #1 Activity : Toilet Transfer, Stand Pivot Sit Assist : Assist, moderate (Comment: 1-2 [DAPHNE, AMEALIA, OTR/L - 07/10/2019 10:08 EDT] ) Equipment : Raised Toilet Seat, With Handles, Rolling walker Date to Meet : 07/24/2019 EDT Goal Status : Initial goal DAPHNE, AMEALIA, OTR/L - 07/10/2019 10:08 EDT Bed Mobility/ Bed Transfer LTG Grid Goal #1 Goal #2 Goal #3 Goal #4 Activity : Bed Mobility/Bed Transfer Bed Mobility, Supine to Sit Bed Mobility, Sit to Stand Bed Mobility, Sit to Supine Assist : Assist, moderate (Comment: 1-2 [DAPHNE, AMEALIA, OTR/L - 07/10/2019 10:08 EDT] ) Assist, moderate (Comment: X1 [DAPHNE, AMEALIA, OTR/L - 07/10/2019 10:08 EDT] ) Assist, moderate (Comment: X1 [DAPHNE, AMEALIA, OTR/L - 07/10/2019 10:08 EDT] ) Assist, moderate (Comment: mod x1 [DAPHNE, AMEALIA, OTR/L - 07/10/2019 10:08 EDT] ) Equipment : Rolling walker Date to Meet : 07/24/2019 EDT 07/24/2019 EDT 07/24/2019 EDT 07/24/2019 EDT Goal Status : Initial goal Initial goal Initial goal Initial goal DAPHNE, AMEALIA, OTR/L - 07/10/2019 10:08 EDT DAPHNE, AMEALIA, OTR/L - 07/10/2019 10:08 EDT DAPHNE, AMEALIA, OTR/L - 07/10/2019 10:08 EDT DAPHNE, AMEALIA, OTR/L - 07/10/2019 10:08 EDT Other LTG Grid Goal #1 Goal : Goals to be adjusted if needed once pt seen in function for better assessment by therapis Date to Meet : 07/24/2019 EDT Goal Status : Initial goal GILMA SERNA OTR/Rob - 07/10/2019 10:08 EDT Treatment Note Subjective Comment : Pt agreed to therapy initially Additional Objective Information : Pt completed Q&A, did nt come to EOB stating, I have done this already and my back hurst too bad . Pt had competed eval with PT this a.m. Assessment : All other TBA on next visit and all needs placed in reach. Pt with confusuion in her responses and did not always answer with relevance Plan for Treatment : POC GILMA SERNA OTR/Rob - 07/10/2019 10:08 EDT Pain Assessment Pain Scaled Used : 0-10 Pain scale Pain Goal, Rehab OT : 0 Pain Score During-Intervention : 8 (Comment: back [GILMA SERNA OTR/Rob - 07/10/2019 10:08 EDT] ) GILMA SERNA OTR/Rob - 07/10/2019 10:08 EDT Image 1 - Images currently included in the form version of this document have not been included in the text rendition version of the form. [place] OT Charges OT Eval Low Complexity : 1 GILMA SERNA OTR/Rob - 07/10/2019 10:08 EDT Electronically signed by Julian Wheeler Conversion Sewing Pattern Layout Technician Cerner at 01/23/2023 1:17 PM CDT documented in this encounter Plan of Treatment Not on file documented as of this encounter Visit Diagnoses Not on filedocumented in this encounter
--- OUTSIDE RECORDS SUMMARY | 2025-07-29 11:58 | XMS_ITS | Encounter Summary ---
Author Organization [employer] ([place], [place], [place], [place]) Address [address] [place] [address] Care Team Providers Care Manager Environmental Affairs Name Role Phone Unavailable Primary Care Provider Unavailabl e Encounter Details Date Type Department Care Team (Late st Contact Info) Description 07/08/2019 Transcribed Document [facility] [place] [address] [place] [address] ProviderChano MD [address], [place] [phone] Social History Tobacco Use Types Packs/Day Years Used Date Smoking Tobacco: Never Assessed Comments Unknown Sex and Gender Information Value Date Recorded Sex Assigned at Not on file Legal Sex Female 2:07 PM CDT Gender Identity Not on file Sexual Orientation Not on file documented as of this encounter Miscellaneous Notes * Cerner Conversion Note - Chano ProviderMD - 07/08/2019 9:08 PM CDT Pain Assessment Entered On: 07/08/2019 21:48 EDT Performed On: 07/08/2019 21:48 EDT by ANKIT WINSLOW RN Intervention Information: morphine Performed by ANKIT WINSLOW RN on 07/08/2019 21:17:00 EDT morphine,4mg IV Push,Peripheral Line 1 Pain Assessment Pain Assessment : Follow-up assessment Pain Scale Goal : 0 Pain Scale Used : 0-10 Scale Location : Back, lower, Back, middle, Back, upper Onset : Acute ANKIT WINSLOW RN - 07/08/2019 21:48 EDT Pain Scale Intensity : 6 ANKIT WINSLOW RN - 07/08/2019 21:48 EDT Image 4 - Images currently included in the form version of this document have not been included in the text rendition version of the form. documented in this encounter Plan of Treatment Not on file documented as of this encounter Visit Diagnoses Not on filedocumented in this encounter
--- OUTSIDE RECORDS SUMMARY | 2025-07-29 11:58 | XMS_ITS | Encounter Summary ---
Author Organization [employer] ([place], [place], [place], [place]) Address [address] [place] [address] Care Team Providers Care Storage Wharfage Clerk Name Role Phone Unavailable Primary Care Provider Unavailabl e Encounter Details Date Type Department Care Team (Late st Contact Info) Description 07/23/2019 Transcribed Document [facility] [place] [address] [place] [address] ProviderChano MD [address], [place] [phone] Social History Tobacco Use Types Packs/Day Years Used Date Smoking Tobacco: Never Assessed Comments Unknown Sex and Gender Information Value Date Recorded Sex Assigned at Not on file Legal Sex Female 2:07 PM CDT Gender Identity Not on file Sexual Orientation Not on file documented as of this encounter Miscellaneous Notes * Cerner Conversion Note - Historical ProviderMD - 07/23/2019 2:12 PM CDT Attempt to Treat, PT Entered On: 07/23/2019 14:13 EDT Performed On: 07/23/2019 14:12 EDT by DEBBI MARVIN PT Attempt to Treat Unable to Treat Due To : Patient Refusal DEBBI MARVIN, PT - 07/23/2019 14:12 EDT Inability to Treat Comment : Patient refused PT despite maximum encouragement and education about importance of mobility. Patient became very emotionally upset and stated that she does not know why she is still here and she just can't do it. PT will attempt again tomorrow.. JOHN ROSENTHAL, PT - 07/23/2019 16:16 EDT Notification : DEBBI Vincent, PT - 07/23/2019 14:12 EDT documented in this encounter Plan of Treatment Not on file documented as of this encounter Visit Diagnoses Not on filedocumented in this encounter
--- OUTSIDE RECORDS SUMMARY | 2025-07-29 11:58 | XMS_ITS | Encounter Summary ---
Author Organization [employer] ([place], [place], [place], [place]) Address [address] [place] [address] Care Team Providers Care Counter Stitcher Name Role Phone Unavailable Primary Care Provider Unavailabl e Encounter Details Date Type Department Care Team (Late st Contact Info) Description 07/23/2019 Transcribed Document [facility] [place] [address] [place] [address] ProviderChano MD [address], [place] [id number] Social History Tobacco Use Types Packs/Day Years Used Date Smoking Tobacco: Never Assessed Comments Unknown Sex and Gender Information Value Date Recorded Sex Assigned at Not on file Legal Sex Female 2:07 PM CDT Gender Identity Not on file Sexual Orientation Not on file documented as of this encounter Miscellaneous Notes * Cerner Conversion Note - Historical ProviderMD - 07/23/2019 8:55 AM CDT Attempt to Treat, OT Entered On: 07/23/2019 15:37 EDT Performed On: 07/23/2019 8:55 EDT by HOLLY GALDAMEZ OTR/L Attempt to Treat Unable to Treat Due To : Patient Refusal Inability to Treat Comment : Pt states she will not participate in therapy this date. Pt encouraged and became upset with therapist. HOLLY GALDAMEZ OTR/Rob - 07/23/2019 15:36 EDT Electronically signed by Julian Wheeler Conversion Entry Level Software Engineer Cerner at 01/23/2023 1:13 PM CDT documented in this encounter Plan of Treatment Not on file documented as of this encounter Visit Diagnoses Not on filedocumented in this encounter
--- OUTSIDE RECORDS SUMMARY | 2025-07-29 11:58 | XMS_ITS | Encounter Summary ---
Author Organization [employer] ([place], [place], [place], [place]) Address [address] [place] [address] Care Team Providers Care Liquid Hydrogen Plant Operator Name Role Phone Unavailable Primary Care Provider Unavailabl e Encounter Details Date Type Department Care Team (Late st Contact Info) Description 07/08/2019 Transcribed Document [facility] [place] [address] [place] [address] ProviderChano MD [address], [place] [id number] Social History Tobacco Use Types Packs/Day Years Used Date Smoking Tobacco: Never Assessed Comments Unknown Sex and Gender Information Value Date Recorded Sex Assigned at Not on file Legal Sex Female 2:07 PM CDT Gender Identity Not on file Sexual Orientation Not on file documented as of this encounter Miscellaneous Notes * Cerner Conversion Note - Chano ProviderMD - 07/08/2019 2:38 PM CDT ED Assessment Entered On: 07/08/2019 18:56 EDT Performed On: 07/08/2019 18:55 EDT by Lyndsey Holland RN ED Quick Look Assessment Level of Consciousness : Alert, Awake Affect/Behavior : Appropriate, Calm, Cooperative Orientation : Oriented x 4 Skin Temperature : Warm Skin Description : Dry Lyndsey Holland RN - 07/08/2019 18:55 EDT ED General-Functional Assess Information Obtained From : Patient Preferred Communication Mode : Verbal Communication Barrier : None Primary Language : Grenadian Any Spiritual/Cultural Needs or Requests : No Currently in Unsafe Situation : No Living Situation : Home Current Daily Living Assistance : None Sensory Deficits : None Mobility Assistance Prior to Admission : Independent Current Home Treatments : None Home Equipment : None Professional Skilled Services : None Special Services and Community Resources : None Lyndsey Holland RN - 07/08/2019 18:55 EDT Social Habits Smoking Status : Former smoker, quit more than 30 days ago Smokeless Tobacco Status : Never Desires Tobacco Cessation Calc : 0 Lyndsey Holland RN - 07/08/2019 18:55 EDT Social History (As Of: 07/08/2019 18:56:23 EDT) Tobacco: Use in Last 12 Months: [...] TRINIDAD, ED Nurse) Employment/School: Retired, Previous employment/school: [employer]. (Last Updated: 07/17/2014 00:15:13 EDT by KATIE TRINIDAD, ED Nurse) Gastrointestinal ED Gastrointestinal Assessment WDL : WDL with exceptions Gastrointestinal Symptoms : Nausea Lyndsey Holland RN - 07/08/2019 18:55 EDT Musculoskeletal Musculoskeletal Assessment WDL : WDL with exceptions Musculoskeletal Assessment Comment : see assessment Lyndsey Holland RN - 07/08/2019 18:55 EDT documented in this encounter Plan of Treatment Not on file documented as of this encounter Visit Diagnoses Not on filedocumented in this encounter
--- OUTSIDE RECORDS SUMMARY | 2025-07-29 11:58 | XMS_ITS | Encounter Summary ---
Author Organization [employer] ([place], [place], [place], [place]) Address [address] [place] [address] Care Team Providers Care Scalemaker Name Role Phone Unavailable Primary Care Provider Unavailabl e Encounter Details Date Type Department Care Team (Late st Contact Info) Description 07/22/2019 Transcribed Document [facility] [place] Family Medicine [address] [place] [address] ProviderChano MD [address] [place], [place] [address] Social History Tobacco Use Types Packs/Day Years Used Date Smoking Tobacco: Never Assessed Comments Unknown Sex and Gender Information Value Date Recorded Sex Assigned at Not on file Legal Sex Female 2:07 PM CDT Gender Identity Not on file Sexual Orientation Not on file documented as of this encounter Miscellaneous Notes * Cerner Conversion Note - Historical ProviderMD - 07/22/2019 1:30 PM CDT Attempt to Treat, PT Entered On: 07/22/2019 14:53 EDT Performed On: 07/22/2019 13:30 EDT by HILDA CLEMONS PTA Attempt to Treat Unable to Treat Due To : Patient Refusal Inability to Treat Comment : pt refused monring and afternoon treatment today. Patient states she has pain all over and refused to attempt eob, oob, and amb. will follow up as time allows. Notification : nsclaus schmid notified HILDA CLEMONS PTA - 07/22/2019 14:51 EDT documented in this encounter Plan of Treatment Not on file documented as of this encounter Visit Diagnoses Not on filedocumented in this encounter
--- OUTSIDE RECORDS SUMMARY | 2025-07-29 11:58 | XMS_ITS | Encounter Summary ---
Author Organization [employer] ([place], [place], [place], [place]) Address [address] [place] [address] Care Team Providers Care Weight Loss Sales Consultant Name Role Phone Unavailable Primary Care Provider Unavailabl e Encounter Details Date Type Department Care Team (Late st Contact Info) Description 07/08/2019 Transcribed Document [facility] [place] Medicine [facility] [place] [address] ProviderChano MD [facility] [address], [place] [id number] Social History Tobacco Use Types Packs/Day Years Used Date Smoking Tobacco: Never Assessed Comments Unknown Sex and Gender Information Value Date Recorded Sex Assigned at Not on file Legal Sex Female 2:07 PM CDT Gender Identity Not on file Sexual Orientation Not on file documented as of this encounter Miscellaneous Notes * Cerner Conversion Note - Historical ProviderMD - 07/08/2019 2:38 PM CDT ED Triage Entered On: 07/08/2019 15:00 EDT Performed On: 07/08/2019 14:54 EDT by Vanesa Guadalupe Rn ED Triage Across the Room Triage Date/Time : 07/08/2019 14:54 EDT Chief Complaint : pt had back surgery (L3-L4) apx 1 month ago, nausea but no vomiting, back pain 07/15. took 10mg oxycodone at 1330 today. Vanesa Guadalupe Rn - 07/08/2019 14:54 EDT DCP GENERIC CODE Tracking Acuity : 3 - Urgent Tracking Group : [facility] ED Vanesa Guadalupe Rn - 07/08/2019 14:54 EDT Mode of Arrival : Ambulatory Transported to ED by : Private vehicle To Room Via : Wheelchair Accompanied By : Responsible adult ED Vital Signs : Document Height & Weight : Document ED Allergies : Document ED Reason for Visit : Document Tetanus Immunization : Less than 5 years Vanesa Guadalupe Rn - 07/08/2019 14:54 EDT Infectious Disease History Infectious Disease History : Chicken pox/Shingles, Measles, Mumps Fever/Chills Last 48 Hours : Yes Experiencing Infectious Disease Symptoms : Vomiting Travel To Regions with Travel Advisories : No Travel Outside [place] Within Last 30 Days : No Contact With Traveler to Advisory Region : No Tuberculosis Symptoms : None Vanesa Guadalupe Rn - 07/08/2019 14:54 EDT Vital Signs ED Temperature Source : Oral Temperature Mode : Fahrenheit Temperature, Fahrenheit : 98.2 Deg F ED Pain : Yes Clinical Temperature, C : 36.8 Deg C Oxygen Therapy Mode : Room air Peripheral Pulse Rate : 81 bpm Respiratory Rate : 18 Breaths/Min Systolic Blood Pressure : 143 mmHg (HI) Diastolic Blood Pressure : 67 mmHg Oxygen Saturation : 92 % (LOW) Vanesa Guadalupe Rn - 07/08/2019 14:54 EDT Allergy (As Of: 07/08/2019 15:00:09 EDT) Allergies (Active) Avandia Estimated Onset Date: Unspecified ; Reactions: CHF ; Created By: BONI FARMER RN; Reaction Status: Active ; Category: Drug ; Substance: Avandia ; Type: Allergy ; Updated By: BONI FARMER RN; Reviewed Date: 04/20/2019 16:56 EDT fenofibrate Estimated Onset Date: Unspecified ; Created By: LIZ VILLEGAS; Reaction Status: Active ; Category: Drug ; Substance: fenofibrate ; Type: Allergy ; Updated By: LIZ VILLEGAS; Reviewed Date: 04/20/2019 16:56 EDT metFORMIN Estimated Onset Date: Unspecified ; Created By: LIZ VILLEGAS; Reaction Status: Active ; Category: Drug ; Substance: metFORMIN ; Type: Allergy ; Updated By: LIZ VILLEGAS; Reviewed Date: 04/20/2019 16:56 EDT NSAIDs Estimated Onset Date: Unspecified ; Created By: LIZ VILLEGAS; Reaction Status: Active ; Category: Drug ; Substance: NSAIDs ; Type: Allergy ; Updated By: LIZ VILLEGAS; Reviewed Date: 04/20/2019 16:56 EDT statins Estimated Onset Date: Unspecified ; Reactions: Fenofibrate, Fenofibrate ; Created By: CONTRIBUTOR_SYSTEMLIZ; Reaction Status: Active ; Category: Drug ; Substance: statins ; Type: Allergy ; Updated By: CONTRIBUTOR_SYSTEMLIZ; Reviewed Date: 04/20/2019 16:56 EDT Diagnosis Control ED (As Of: 07/08/2019 15:00:09 EDT) Problems(Active) Acid reflux (SNOMED CT :966794030 ) Name of Problem: Acid reflux ; Recorder: MIGEL GARCIA RN; Confirmation: Confirmed ; Classification: Patient Stated ; Code: [id number] ; Contributor System: [employer] ; Last Updated: 03/17/2014 19:28 EDT ; Life Cycle Date: 06/24/2013 ; Life Cycle Status: Active ; Vocabulary: SNOMED CT Allergic asthma (SNOMED CT :8207267975 ) Name of Problem: Allergic asthma ; Recorder: MIGEL GARCIA RN; Confirmation: Confirmed ; Classification: Patient Stated ; Code: [id number] ; Contributor System: [employer] ; Last Updated: 03/17/2014 19:28 EDT ; Life Cycle Date: 06/24/2013 ; Life Cycle Status: Active ; Vocabulary: SNOMED CT Arthritis (SNOMED CT :0280993 ) Name of Problem: Arthritis ; Recorder: MIGEL GARCIA RN; Confirmation: Confirmed ; Classification: Patient Stated ; Code: 5732205 ; Contributor System: [employer] ; Last Updated: 03/17/2014 19:28 EDT ; Life Cycle Date: 06/24/2013 ; Life Cycle Status: Active ; Vocabulary: SNOMED CT At risk for sleep apnea (IMO :87624545 ) Name of Problem: At risk for sleep apnea ; Recorder: SYSTEM, SYSTEM; Confirmation: Confirmed ; Classification: Medical ; Code: 60978211 ; Last Updated: 04/01/2019 10:50 EDT ; Life Cycle Date: 04/01/2019 ; Life Cycle Status: Active ; Vocabulary: IMO Back pain (SNOMED CT :1528913582 ) Name of Problem: Back pain ; Recorder: BIANKA DUNN RN; Confirmation: Confirmed ; Classification: Medical ; Code: 5174044632 ; Contributor System: Power[employer] ; Last Updated: 04/01/2019 10:23 EDT ; Life Cycle Date: 04/01/2019 ; Life Cycle Status: Active ; Vocabulary: SNOMED CT BP+ - Hypertension (SNOMED CT :221819361 ) Name of Problem: BP+ - Hypertension ; Recorder: MIGEL GARCIA RN; Confirmation: Confirmed ; Classification: Patient Stated ; Code: 619676861 ; Contributor System: PowerChart ; Last Updated: 03/22/2014 10:58 EDT ; Life Cycle Date: 06/24/2013 ; Life Cycle Status: Active ; Vocabulary: SNOMED CT Cataract///beginning stage (SNOMED CT :087718849 ) Name of Problem: Cataract///beginning stage ; Recorder: BIANKA DUNN RN; Confirmation: Confirmed ; Classification: Medical ; Code: 414822581 ; Contributor System: PowerChart ; Last Updated: 04/01/2019 10:22 EDT ; Life Cycle Date: 04/01/2019 ; Life Cycle Status: Active ; Vocabulary: SNOMED CT Chest pain///cath negative (SNOMED CT :44566451 ) Name of Problem: Chest pain///cath negative ; Onset Date: 2012 ; Recorder: BIANKA DUNN RN; Confirmation: Confirmed ; Classification: Medical ; Code: 99612885 ; Contributor System: PowerChart ; Last Updated: 04/01/2019 10:27 EDT ; Life Cycle Date: 04/01/2019 ; Life Cycle Status: Active ; Vocabulary: SNOMED CT Colon polyps (SNOMED CT :786021332 ) Name of Problem: Colon polyps ; Recorder: BIANKA DUNN RN; Confirmation: Confirmed ; Classification: Medical ; Code: 503859865 ; Contributor System: PowerChart ; Last Updated: 04/01/2019 10:22 EDT ; Life Cycle Date: 04/01/2019 ; Life Cycle Status: Active ; Vocabulary: SNOMED CT Completely occulded L carotid (SNOMED CT :3908692327 ) Name of Problem: Completely occulded L carotid ; Recorder: STEPHANIE ARREGUIN RN; Confirmation: Confirmed ; Classification: Medical ; Code: 2404014620 ; Contributor System: PowerChart ; Last Updated: 04/23/2016 17:54 EDT ; Life Cycle Date: 04/25/2015 ; Life Cycle Status: Active ; Vocabulary: SNOMED CT Congestive heart failure - due to Avandia resolved (SNOMED CT :99143618 ) Name of Problem: Congestive heart failure - due to Avandia resolved ; Recorder: MIGEL GARCIA RN; Confirmation: Confirmed ; Classification: Patient Stated ; Code: 43730179 ; Contributor System: PowerChart ; Last Updated: 04/23/2016 17:53 EDT ; Life Cycle Date: 06/24/2013 ; Life Cycle Status: Active ; Vocabulary: SNOMED CT ; Comments: 06/24/2013 10:32 - MIGEL GARCIA RN per pt and DM - Diabetes mellitus (SNOMED CT :980049860 ) Name of Problem: DM - Diabetes mellitus ; Recorder: MIGEL GARCIA RN; Confirmation: Confirmed ; Classification: Patient Stated ; Code: 166062374 ; Contributor System: [employer] ; Last Updated: 03/22/2014 10:54 EDT ; Life Cycle Date: 06/24/2013 ; Life Cycle Status: Active ; Vocabulary: SNOMED CT Dyslipidemia (SNOMED CT :9638549978 ) Name of Problem: Dyslipidemia ; Recorder: MIGEL GARCIA RN; Confirmation: Confirmed ; Classification: Patient Stated ; Code: 6294367762 ; Contributor System: PowerChart ; Last Updated: 03/17/2014 19:28 EDT ; Life Cycle Date: 06/24/2013 ; Life Cycle Status: Active ; Vocabulary: SNOMED CT Fibromyalgia (SNOMED CT :775337728 ) Name of Problem: Fibromyalgia ; Recorder: BIANKA DUNN RN; Confirmation: Confirmed ; Classification: Medical ; Code: 652819361 ; Contributor System: PowerChart ; Last Updated: 04/01/2019 10:24 EDT ; Life Cycle Date: 04/01/2019 ; Life Cycle Status: Active ; Vocabulary: SNOMED CT H/O ischemic left MCA stroke (SNOMED CT :7362457941 ) Name of Problem: H/O ischemic left MCA stroke ; Onset Date: 09/05/2012 ; Recorder: SYBIL MCGILL MD-EMR; Confirmation: Confirmed ; Classification: Medical ; Code: 5649941036 ; Contributor System: PowerChart ; Last Updated: 04/23/2016 17:54 EDT ; Life Cycle Date: 04/23/2016 ; Life Cycle Status: Active ; Responsible Provider: SYBIL MCGILL MD-EMR; Vocabulary: SNOMED CT Hiatal hernia (SNOMED CT :589742426 ) Name of Problem: Hiatal hernia ; Recorder: SYBIL MCGILL MD-AVINASH; Confirmation: Complaint of ; Classification: Medical ; Code: 375133095 ; Contributor System: PowerChart ; Last Updated: 12/03/2015 16:45 EST ; Life Cycle Date: 12/03/2015 ; Life Cycle Status: Active ; Vocabulary: SNOMED CT Lumbar disc disease (SNOMED CT :4872565865 ) Name of Problem: Lumbar disc disease ; Recorder: BIANKA DUNN RN; Confirmation: Confirmed ; Classification: Medical ; Code: 2860134491 ; Contributor System: PowerChart ; Last Updated: 04/01/2019 10:25 EDT ; Life Cycle Date: 04/01/2019 ; Life Cycle Status: Active ; Vocabulary: SNOMED CT Memory deficit///slow recall (SNOMED CT :4363434053 ) Name of Problem: Memory deficit///slow recall ; Recorder: BIANKA DUNN RN; Confirmation: Confirmed ; Classification: Medical ; Code: 1495456472 ; Contributor System: PowerChart ; Last Updated: 04/01/2019 10:51 EDT ; Life Cycle Status: Active ; Vocabulary: SNOMED CT Numbness and tingling//right leg (SNOMED CT :6289743658 ) Name of Problem: Numbness and tingling//right leg ; Recorder: BIANKA DUNN RN; Confirmation: Confirmed ; Classification: Medical ; Code: 3424240115 ; Contributor System: PowerChart ; Last Updated: 04/01/2019 10:23 EDT ; Life Cycle Date: 04/01/2019 ; Life Cycle Status: Active ; Vocabulary: SNOMED CT Obesity (SNOMED CT :9782441962 ) Name of Problem: Obesity ; Recorder: SYBIL MCGILL MD-AVINASH; Confirmation: Confirmed ; Classification: Medical ; Code: 0556786121 ; Contributor System: PowerChart ; Last Updated: 04/23/2016 17:53 EDT ; Life Cycle Date: 04/23/2016 ; Life Cycle Status: Active ; Responsible Provider: SYBIL MCGILL MD-EMR; Vocabulary: SNOMED CT Pain//chronic (SNOMED CT :697085390 ) Name of Problem: Pain//chronic ; Recorder: BIANKA DUNN RN; Confirmation: Confirmed ; Classification: Medical ; Code: 448957824 ; Contributor System: [employer] ; Last Updated: 04/01/2019 10:24 EDT ; Life Cycle Date: 04/01/2019 ; Life Cycle Status: Active ; Vocabulary: SNOMED CT Right leg pain (SNOMED CT :6479741813 ) Name of Problem: Right leg pain ; Recorder: BIANKA DUNN RN; Confirmation: Confirmed ; Classification: Medical ; Code: 8990254183 ; Contributor System: PowerChart ; Last Updated: 04/01/2019 10:23 EDT ; Life Cycle Date: 04/01/2019 ; Life Cycle Status: Active ; Vocabulary: SNOMED CT Sleep apnea///risk (SNOMED CT :043362382 ) Name of Problem: Sleep apnea///risk ; Recorder: BIANKA DUNN RN; Confirmation: Confirmed ; Classification: Medical ; Code: 420867583 ; Contributor System: PowerChart ; Last Updated: 04/01/2019 10:37 EDT ; Life Cycle Date: 04/01/2019 ; Life Cycle Status: Active ; Vocabulary: SNOMED CT Wears glasses (SNOMED CT :787971463 ) Name of Problem: Wears glasses ; Recorder: BIANKA DUNN RN; Confirmation: Confirmed ; Classification: Medical ; Code: 591522425 ; Contributor System: PowerChart ; Last Updated: 04/01/2019 10:19 EDT ; Life Cycle Date: 04/01/2019 ; Life Cycle Status: Active ; Vocabulary: SNOMED CT Diagnoses(Active) Back pain Date: 07/08/2019 ; Diagnosis Type: Reason For Visit ; Confirmation: Complaint of ; Clinical Dx: Back pain ; Classification: Medical ; Clinical Service: Non-Specified ; Code: PNED ; Probability: 0 ; Diagnosis Code: [id number] Post surgery problem Date: 07/08/2019 ; Diagnosis Type: Reason For Visit ; Confirmation: Complaint of ; Clinical Dx: Post surgery problem ; Classification: Medical ; Clinical Service: Non-Specified ; Code: PNED ; Probability: 0 ; Diagnosis Code: [id number] ED Height and Weight Height Source : Stated Height Entry Format : [place] Height, Feet : 5 ft(Converted to: 152 cm, 60 Inch) Height, Inches : 4 Inch(Converted to: 0 ft 4 Inch, 10.16 cm) Clinical Height : 162.56 cm Weight Source, ED : Critical estimated dosing weight Weight Entry Format : [place] Weight, Pounds : 210 lb Clinical Dosing Weight : 95.45 kg Body Surface Area (BSA) : 2 m2 Body Mass Index : 36.1 kg/m2 (HI) [place] Body Weight (IBW) : 54.3 kg Vanesa Guadalupe Rn - 07/08/2019 14:54 EDT Pain Assessment Pain Assessment : Initial assessment Pain Scale Used : 0-10 Scale Location : Back, Back, lower Vanesa Guadalupe Rn - 07/08/2019 14:54 EDT Pain Scale Intensity : 10 Vanesa Guadalupe Rn - 07/08/2019 14:54 EDT Image 4 - Images currently included in the form version of this document have not been included in the text rendition version of the form. Electronically signed by Julian Wheeler Conversion Maxillofacial Prosthodontist Cerner at 01/23/2023 1:31 PM CDT documented in this encounter Plan of Treatment Not on file documented as of this encounter Visit Diagnoses Not on filedocumented in this encounter
--- OUTSIDE RECORDS SUMMARY | 2025-07-29 11:58 | XMS_ITS | Encounter Summary ---
Author Organization [employer] ([place], [place], [place]) Address [address] [place] [address] Care Team Providers Care Greige Goods Inspector Name Role Phone Unavailable Primary Care Provider Unavailabl e Encounter Details Date Type Department Care Team (Late st Contact Info) Description 07/23/2019 Transcribed Document [facility] [place] Family Medicine [address] [place] [address] ProviderChano MD [address], [place] [id number] Social History Tobacco Use Types Packs/Day Years Used Date Smoking Tobacco: Never Assessed Comments Unknown Sex and Gender Information Value Date Recorded Sex Assigned at Not on file Legal Sex Female 2:07 PM CDT Gender Identity Not on file Sexual Orientation Not on file documented as of this encounter Miscellaneous Notes * Cerner Conversion Note - Chano ProviderMD - 07/23/2019 5:14 PM CDT On Going Discharge Planning Entered On: 07/23/2019 17:17 EDT Performed On: 07/23/2019 17:14 EDT by HORACIO ACHARYA RN-Business Process CoordinatorAnesthesiologist And Critical Care Progress Note Discharge Arrangements : Patient Post-Acute Information Patient Name: ADRIENNE ANTONIO Gender: Female : [birth year] Age: 68 Years No Post-Acute Placement(s) Listed No Post-Acute Service(s) Listed No [place] Referral(s) Listed Barriers to Discharge Identified : Clinical Condition of Patient Barriers to Discharge Unresolved : Clinical Condition of Patient Is the Patient Meeting Medical Necessity : Yes HORACIO ACHARYA RN-Business Process Coordinator - 07/23/2019 17:14 EDT Narrative Progress Note Narrative Progress Note : MRI-(-). U/A-pyuria. No abx per Dr. Jama. Pt even more confused today, refusing therapy and meds. Pt is paranoid thinking people are trying to give her things against her will. More updates and test results sent to [facility] and spoke to Monisha. Pt has been [...] RN Fior. CM will contniue to follow. Historical Progress Note : Pt's confusion is worse. She is unable to use utensils and is using her hands to eat. [facility] reconsulted. Labs/urine sent. [facility] called asking if pt still needed placement. Eugenie liagissel Monsivais met with pt at bedside and feels pt would do better if went to psych unit prior to rehab. Spoke to Urvashi at [facility] and sent updates to her. She states pt has to be medically ready for dc before she can given MD referral. Pt is not ready today. D/W Dr. Reid, pt's daughter, spouse, and bedside RN. CM will contniue to follow. HORACIO ACHARYA RN-Business Process Coordinator - 07/23/19 17:13:59 Lisbeth met with pt and family at bedside, but her boss has declined admission. Spoke to Yodit with [employer], she can offer at all 3 in [place], and [place] They chose [facility] initiated. CM will continue to follow. HORACIO ACHARYA RN-Business Process Coordinator - 07/21/19 14:38:34 Pt was referred to 18 debbie/psych facilities by MARINA. All have declined admission, some stating she needs physical rehab and/or does not have any acute issues for psych admission. Spouse agreeable to try for SNF admission since she is still requiring assistance with ADL's and bed mobility. He chose Lynn Louis at [facility], [facility] [place], and [facility]. Referrals sent via [facility]. Spoke to Lisbeth with the [facility]. She states they have a wet end operator that can see pt at the facility. She will need to come do a bedside eval. D/W Dr. Horner as well. CM will continue to follow. HORACIO ACHARYA RN-Business Process Coordinator - 07/20/19 15:47:15 [facility] consulted. They received [...] CM will continue to follow. HORACIO ACHARYA RN-Business Process Coordinator - 07/19/19 15:10:43 [facility] eval for inpatient psych on Thursday 07/19. CM will continue to follow. HORACIO ACHARYA RN-Business Process Coordinator - 07/16/19 12:46:58 [facility] declined admission to their psych unit. No word from [facility]. Met with pt's daughter and had lengthy discussion regarding disposition. CM will consult MARINA at time of dc for help with admission to debbie-psych unit somewhere. D/W Dr. Horner and Dr. Jama. CM will continue to follow. HORACIO ACHARYA RN-Business Process Coordinator - 07/15/19 14:03:13 Spoke to pt's spouse Kian on the phone today. 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. He states he does not want her going to those places as she kows people there. He agrees to referrals to [facility] and [facility] inpatient psych units. Referral sent and spoke to JUSTA Perez at [facility] and Royce RN at [facility]. CM will continue to follow. HORACIO ACHARYA RN-Business Process Coordinator - 07/14/19 13:36:43 Dr. Valdez consult this [...] CM will continue to follow. HORACIO ACHARYA RN-Business Process Coordinator - 07/13/19 17:41:20 psych consult referral faxed to Dr. Valdez's office to assess for psychosis. SANJIV VOGT RN-Business Process Coordinator - 07/11/19 16:14:26 HORACIO ACHARYA RN-Business Process Coordinator - 07/23/2019 17:14 EDT Electronically signed by Julian Wheeler Conversion Customer Service Security Officer Cerner at 01/23/2023 1:25 PM CDT documented in this encounter Plan of Treatment Not on file documented as of this encounter Visit Diagnoses Not on filedocumented in this encounter
--- OUTSIDE RECORDS SUMMARY | 2025-07-29 11:58 | XMS_ITS | Encounter Summary ---
Author Organization [employer] ([place], [place]) Address [address] [place] [address] Care Team Providers Care Inventory Taker Name Role Phone Unavailable Primary Care Provider Unavailabl e Encounter Details Date Type Department Care Team (Late st Contact Info) Description 07/08/2019 Transcribed Document [facility] Family Medicine [address] [place] [address] ProviderChano MD [address] [place], [place] [id number] Social History Tobacco Use Types Packs/Day Years Used Date Smoking Tobacco: Never Assessed Comments Unknown Sex and Gender Information Value Date Recorded Sex Assigned at Not on file Legal Sex Female 2:07 PM CDT Gender Identity Not on file Sexual Orientation Not on file documented as of this encounter Miscellaneous Notes * Cerner Conversion Note - Chano ProviderMD - 07/08/2019 9:23 PM CDT Consult Phone Call Documentation Entered On: 07/09/2019 10:35 EDT Performed On: 07/08/2019 21:23 EDT by Nahomy Kim, RN Phone Call for Consults Consult Reason : Discitis Provider Service Notified Name : Neurosurgery Physician Covering for Consult : CAMPBELL CRUZ MD Date and Time Call Returned : 07/09/2019 10:11 EDT Nahomy Kim, RN - 07/09/2019 10:35 EDT documented in this encounter Plan of Treatment Not on file documented as of this encounter Visit Diagnoses Not on filedocumented in this encounter
--- OUTSIDE RECORDS SUMMARY | 2025-07-29 11:58 | XMS_ITS | Encounter Summary ---
Author Organization [employer] ([place], [place], [place], [place]) Address [address] [place] [address] Care Team Providers Care Pricing Actuary Name Role Phone Unavailable Primary Care Provider Unavailabl e Encounter Details Date Type Department Care Team (Late st Contact Info) Description 07/08/2019 Transcribed Document [facility] [place] [address] [place] [address] ProviderChano MD [address], [place] [id number] Social History Tobacco Use Types Packs/Day Years [...] 10:19 PM CDT Pain Assessment Entered On: 07/09/2019 2:47 EDT Performed On: 07/09/2019 2:47 EDT by ANKIT WINSLOW RN Intervention Information: HYDROmorphone Performed by ANKIT WINSLOW RN on 07/09/2019 01:11:00 EDT HYDROmorphone,0.25mg IV Push,Peripheral Line 1,Pain (Severe 7-10) Pain Assessment Pain Scale Goal : 0 Pain Scale Used : CPOT CPOT Pain Scale Link : ANKIT Sharif RN - 07/09/2019 2:47 EDT Pain Scale, CPOT CPOT Facial Expression : Relaxed/neutral CPOT Body Movements : Absence of movements CPOT Muscle Tension : Relaxed CPOT Pain Scale Comment : pt is in bed sleeping peacefully CPOT Copyright Information : Jamie C, Sariah L, Geoffrey WRIGHT, Jair Tejeda, Ramya Mooney., Validation of the Critical-Care Pain Observation Tool in, adult patients. Am J Crit Care. 2006;15(4):420-427. Table 1, http://ajcc.aacnjournals.org/content/15/4/420.short, ?? 2006 [place] [employer] Critical-Care Nurses., Used with permission. ANKIT WINSLOW RN - 07/09/2019 2:47 EDT documented in this encounter Plan of Treatment Not on file documented as of this encounter Visit Diagnoses Not on filedocumented in this encounter
--- OUTSIDE RECORDS SUMMARY | 2025-07-29 11:58 | XMS_ITS | Encounter Summary ---
Author Organization [employer] ([place], [place], [place], [place]) Address [address] [place] [address] Care Team Providers Care Cool Roofing Installer Name Role Phone Unavailable Primary Care Provider Unavailabl e Encounter Details Date Type Department Care Team (Late st Contact Info) Description 07/26/2019 Transcribed Document [facility] [place] [address] [place] [address] ProviderChano MD [address] [place], [place] [id number] Social History Tobacco Use Types Packs/Day Years Used Date Smoking Tobacco: Never Assessed Comments Unknown Sex and Gender Information Value Date Recorded Sex Assigned at Not on file Legal Sex Female 2:07 PM CDT Gender Identity Not on file Sexual Orientation Not on file documented as of this encounter Miscellaneous Notes * Cerner Conversion Note - Historical ProviderMD - 07/26/2019 5:00 PM CDT Chart Check - Review Order Profile Entered On: 07/26/2019 17:00 EDT Performed On: 07/26/2019 17:00 EDT by RICHARD VEGA RN Chart Check Powerplans Initiated/Discontinued as Appropriate : Yes All Active Orders Reviewed : Yes RICHARD VEGA, RN - 07/26/2019 17:00 EDT documented in this encounter Plan of Treatment Not on file documented as of this encounter Visit Diagnoses Not on filedocumented in this encounter
--- OUTSIDE RECORDS SUMMARY | 2025-07-29 11:58 | XMS_ITS | Encounter Summary ---
Author Organization [employer] ([place], [place], [place], [place]) Address [address] [place] [address] Care Team Providers Care Unified Communications Engineer Name Role Phone Unavailable Primary Care Provider Unavailabl e Encounter Details Date Type Department Care Team (Late st Contact Info) Description 07/08/2019 Transcribed Document [facility] [place] [address] ProviderChano MD [facility] [address], [place] [id number] Social History Tobacco Use Types Packs/Day Years Used Date Smoking Tobacco: Never Assessed Comments Unknown Sex and Gender Information Value Date Recorded Sex Assigned at Not on file Legal Sex Female 2:07 PM CDT Gender Identity Not on file Sexual Orientation Not on file documented as of this encounter Miscellaneous Notes * Cerner Conversion Note - Chano ProviderMD - 07/08/2019 7:48 PM CDT Patient: LUDY ANTONIO Age: 68 years Sex: Female : 1950 Associated Diagnoses: Intractable back pain; Generalized weakness Author: JUVENTINO BARRERA DO Basic Information Time seen: Date 07/08/2019, Immediately upon arrival. History source: Patient, significant other. Arrival mode: Private vehicle. History limitation: None. Additional information: Chief Complaint from Nursing Triage Note : Chief Complaint 07/08/2019 14:54 EDT Chief Complaint pt had back surgery (L3-L4) apx 1 month ago, nausea but no vomiting, back pain 07/15. took 10mg oxycodone at 1330 today. . History of Present Illness The patient presents with lumbar pain. The onset was 8 weeks ago. The course/duration of symptoms is worsening. Type of injury: fall. The location where the incident occurred was at home. Location: Right lumbar. Radiating pain: right lower extremity. The character of symptoms is dull and achy. The degree at onset was moderate. The degree at present is moderate. There are exacerbating factors including movement and bending over. The relieving factor is none. Risk factors consist of hypertension. Prior episodes: occasional. Therapy today: none. Associated symptoms: none. Additional history: none. Ludy Antonio is a 68-year-old female with past medical history of diabetes who is status post right L3-L4 microdiscectomy with laminotomy on April 05, 2019 who states she's been having ongoing pain. She states it is worse after a fall she had after her surgery she does not know exactly when whether was 2-4 weeks after her surgery and. The pain is now radiating down into her right leg and. Her family states that she has had increasing pain despite oxycodone and tramadol at home. She admits to having some generalized weakness. She denies any fever cough abdominal pain nausea vomiting.. Review of Systems Additional review of systems information: All other [...] chew) Flonase 0.05 mg/inh nasal spray: 2 [place], Nasal, Daily, 16 Gram, 0 Refill(s) Lantus: [...] 0 Refill(s). Past Medical/ Family/ Social History Medical history Reviewed as documented in chart. Surgical history: heart catheterization in 2012 at 63 Years. Comments: 06/24/2013 7:44 MIGEL GIRALDO RN negative cath left hip replacement in 2011 at 62 Years. right and left shoulder repair. achilles repair. Appendectomy ([id number]). Cholecystectomy ([id number]). Tonsillectomy ([id number])., Reviewed as documented in chart. Family history: No family history items have been selected or recorded., Reviewed as documented in chart. Social history: Social & Psychosocial Habits Alcohol 06/24/2013 Alcohol Use in Last Twelve Months No Employment/School 07/17/2014 Status: Retired Previous employment/school: [employer] Home/Environment 07/17/2014 Lives with: Spouse Living situation: [...] Physical Examination Vital Signs Vital Signs/Vital Measures 07/08/2019 14:54 EDT Systolic Blood Pressure 143 mmHg HI Diastolic Blood Pressure 67 mmHg Temperature Source Oral Temperature Mode Fahrenheit Temperature, Fahrenheit 98.2 Deg F Clinical Temperature, C 36.8 Deg C Peripheral Pulse Rate 81 bpm Respiratory Rate 18 Breaths/Min Oxygen Saturation 92 % LOW Oxygen Therapy Mode Room air . Measurements 07/08/2019 14:54 EDT Height Source Stated Height Entry Format Mobile Height/Length, SPANISH (ft) 5 ft Height/Length SPANISH 4 Inch CLINICALHEIGHT 162.56 cm [place] Body Weight 54.3 kg Weight Source, ED Critical estimated dosing weight Weight Entry Format Mobile Weight Belgian lb 210 lb CLINICALWEIGHT 95.45 kg Body Surface Area (BSA) 2 m2 Body Mass Index 36.1 kg/m2 HI . Oxygen Saturation 07/08/2019 14:54 EDT Oxygen Saturation 92 % LOW . General: Alert, no acute distress. Skin: Warm, dry, pink, intact, no pallor, no rash, normal for ethnicity. Head: Normocephalic, atraumatic. Neck: Supple, trachea midline, no tenderness, no JVD, no carotid bruit. Eye: Pupils are equal, round and reactive to light, extraocular movements are intact, normal conjunctiva, vision unchanged. Ears, nose, mouth and throat: Tympanic membranes clear, oral mucosa moist, no pharyngeal erythema or exudate. Cardiovascular: Regular rate and rhythm, No murmur, Normal peripheral perfusion, No edema. Respiratory: Lungs are clear to auscultation, respirations are non-labored, breath sounds are equal, Symmetrical chest wall expansion. Chest wall: No tenderness, No deformity. Back: Nontender, Normal range of motion, Normal alignment, no step-offs. Musculoskeletal: Normal ROM, normal strength, no tenderness, no swelling, no deformity. Gastrointestinal: Soft, Nontender, Non distended, Normal bowel sounds, No organomegaly. Genitourinary: No tenderness. Neurological: Alert and oriented to person, place, time, and situation, No focal neurological deficit observed, CN II-XII intact, normal sensory observed, normal motor observed, normal speech observed, normal coordination observed. Lymphatics: No lymphadenopathy. Psychiatric: Cooperative, appropriate mood & affect, normal judgment, non-suicidal. Medical Decision Making Differential Diagnosis: Back pain, lumbar strain, disc herniation, sciatica, spinal stenosis, urinary tract infection, pyelonephritis, chronic back pain, vertebral fracture, compression fracture. Documents reviewed: Emergency department nurses' notes, emergency department records, prior records. Results review: Lab results : Lab Results 07/08/2019 19:39 EDT Sodium Level 141 mmol/L Potassium Level 3.9 mmol/L Chloride Level 105 mmol/L Carbon Dioxide Level 30 mmol/L Anion Gap 10 Glucose Level 153 mg/dL HI Blood Urea Nitrogen 20 mg/dL Creatinine Level 1.00 mg/dL eGFR >60 mL/min/1.73m2 eGFR NonAfrican 55 mL/min/1.73m2 LOW Bun/Creatinine 20.0 Calcium Level 9.7 mg/dL Protein Total 7.0 Gram/dL Albumin Level 3.2 Gram/dL LOW Globulin 3.8 Gram/dL A/G Ratio 0.8 LOW Bilirubin Total 0.4 mg/dL Alk Phos 63 Units/Liter AST 17 Units/Liter ALT 21 Units/Liter WBC 9.1 K/uL RBC 4.25 Million/uL Hgb 12.0 g/dL Hct 37.3 % MCV 87.8 fL MCH 28.2 pg MCHC 32.2 Gram/dL Platelet Count 268 K/uL MPV 9.3 fL LOW RDW 13.2 % Neut % 48.5 % Neut # 4.41 K/uL Lymph % 39.7 % Lymph # 3.62 x10(3)/uL Dickson % 8.1 % Dickson # 0.74 K/uL Eos % 2.6 % Eos # 0.24 x10(3)/uL Baso % 0.7 % Baso # 0.06 x10(3)/uL Sed Rate Auto 48 mm/Hr HI Slide Review No IG# 0.04 x10(3)/uL IG% 0.40 % PT 10.1 Second(s) INR 0.9 PTT 28.0 Second(s) Urine Type. U CleanCatch Urine Color Yellow Urine Appearance ERROR Urine Specific [place] 1.013 Urine pH Dipstick 5.5 LOW Urine Leukocyte Esterase Moderate Urine Nitrite Negative Urine Protein Dipstick Negative Urine Glucose Dipstick Negative Urine Ketones Dipstick Negative Urine Urobilinogen Dipstick 0.2 EU/dL Urine Bilirubin Dipstick Negative Urine Blood Dipstick Negative Ur RBC 0-2 /HPF Ur WBC 5-10 /HPF Ur Squamous Epithelial Cells 5-10 /HPF Ur Transitional Epi Cells 2-5 . Radiology results: Radiology Results (Last 48 hours) [id number] -- 07/08/2019 14:38 CT Spine Lumbar WO (07/08/2019 19:56) Result: [...] a synovial cystimpinging on the thecal sac. . Impression and Plan Diagnosis Intractable back pain - Discharge, Emergency medicine, Medical Generalized weakness - Discharge, Emergency medicine, Medical Plan Condition: Stable. Disposition: Admit Admit/Transfer/Discharge: Place in Observation (Order): Start: 07/08/2019 21:23 EDT, Observation Reason: intractable back pain/ruling out discitis, Unit type: Med-Surg, Admitting: TOM MORSE MD-INT. Counseled: Patient. Notes: Emergency Department course the patient's pain was controlled with morphine and. Labs are done and unremarkable. Her sedimentation rate is mildly elevated him however age corrected is only mildly elevated and. CT imaging demonstrated no fracture or acute process sign. I discussed these findings with Dr. Lucas radio station audio engineer for neurosurgery and the patient's surgeon and given her intractable pain medicine failing outpatient treatment and the possibility of discitis in the differential she'll be admitted to the hospital for pain control and to have a biopsy to rule out discitis. Did offer the patient to arrange this outpatient however she wanted to be admitted for pain control on. The family was also concerned about the level of her pain is well. documented in this encounter Plan of Treatment Not on file documented as of this encounter Visit Diagnoses Not on filedocumented in this encounter
--- OUTSIDE RECORDS SUMMARY | 2025-07-29 11:58 | XMS_ITS | Encounter Summary ---
Author Organization [employer] ([place], [place], [place], [place]) Address [address] [place] [address] Care Team Providers Care Emergency Response Technician Name Role Phone Unavailable Primary Care Provider Unavailabl e Encounter Details Date Type Department Care Team (Late st Contact Info) Description 07/09/2019 Transcribed Document [facility] [place] Family Medicine [address] [place] [address] ProviderChano MD [address], [place] [phone] Social History Tobacco Use Types Packs/Day Years Used Date Smoking Tobacco: Never Assessed Comments Unknown Sex and Gender Information Value Date Recorded Sex Assigned at Not on file Legal Sex Female 2:07 PM CDT Gender Identity Not on file Sexual Orientation Not on file documented as of this encounter Miscellaneous Notes * Cerner Conversion Note - Chano ProviderMD - 07/09/2019 3:37 PM CDT Pain Assessment Entered On: 07/09/2019 17:24 EDT Performed On: 07/09/2019 16:00 EDT by EDGARD COLLADO RN Intervention Information: HYDROmorphone Performed by EDGARD COLLADO RN on 07/09/2019 15:30:00 EDT HYDROmorphone,0.5mg IV Push,Left Lower Forearm,Pain (Severe 7-10) Pain Assessment Pain Assessment : Follow-up assessment Pain Scale Goal : 3 Pain Scale Used : FACES Location : Back EDGARD COLLADO RN - 07/09/2019 17:24 EDT Pain Scale Intensity : 6 EDGARD COLLADO RN - 07/09/2019 17:24 EDT Image 4 - Images currently included in the form version of this document have not been included in the text rendition version of the form. documented in this encounter Plan of Treatment Not on file documented as of this encounter Visit Diagnoses Not on filedocumented in this encounter
--- OUTSIDE RECORDS SUMMARY | 2025-07-29 11:58 | XMS_ITS | Encounter Summary ---
Author Organization [employer] ([place], [place], [place], [place]) Address [address] [place] [address] Care Team Providers Care Video Surveillance Technician Name Role Phone Unavailable Primary Care Provider Unavailabl e Encounter Details Date Type Department Care Team (Late st Contact Info) Description 07/23/2019 Transcribed Document [facility] [place] [address] [place] [address] ProviderChano MD [address], [place] [id number] Social History Tobacco Use Types Packs/Day Years Used Date Smoking Tobacco: Never Assessed Comments Unknown Sex and Gender Information Value Date Recorded Sex Assigned at Not on file Legal Sex Female 2:07 PM CDT Gender Identity Not on file Sexual Orientation Not on file documented as of this encounter Miscellaneous Notes * [employer]ner Conversion Note - Historical ProviderMD - 07/23/2019 12:05 PM CDT Attempt to Treat, PT Entered On: 07/23/2019 12:06 EDT Performed On: 07/23/2019 12:05 EDT by DEBBI MARVIN PT Attempt to Treat Unable to Treat Due To : Patient Refusal DEBBI MARVIN, PT - 07/23/2019 12:05 EDT Inability to Treat Comment : Patient stated that she had to get up and get dressed before working with PT. When therapy offered to help her do this she then stated that no she wasn't going to get up right now. PT will attempt in pm.. JOHN ROSENTHAL, PT - 07/23/2019 16:17 EDT Notification : DEBBI Vincent, PT - 07/23/2019 12:05 EDT documented in this encounter Plan of Treatment Not on file documented as of this encounter Visit Diagnoses Not on filedocumented in this encounter
--- OUTSIDE RECORDS SUMMARY | 2025-07-29 11:58 | XMS_ITS | Encounter Summary ---
Author Organization [employer] ([place], [place], [place], [place]) Address [address] [place] [address] Care Team Providers Care Peat Shredder Tender Name Role Phone Unavailable Primary Care Provider Unavailabl e Encounter Details Date Type Department Care Team (Late st Contact Info) Description 07/08/2019 Transcribed Document [facility] [place] [facility] [place] [address] Chano Gatica MD [address] [place], [place] [phone] Social History Tobacco Use Types Packs/Day Years Used Date Smoking Tobacco: Never Assessed Comments Unknown Sex and Gender Information Value Date Recorded Sex Assigned at Not on file Legal Sex Female 2:07 PM CDT Gender Identity Not on file Sexual Orientation Not on file documented as of this encounter Miscellaneous Notes * Cerner Conversion Note - Historical ProviderMD - 07/08/2019 10:08 PM CDT DATE OF ADMISSION: 07/08/2019 CHIEF COMPLAINT: Back pain and confusion. HISTORY OF PRESENT ILLNESS: This is a 68-year-old female who had recent back surgery [...] incontinence has been present before as well. She denies any headaches, fever, but she has chills. She had a fall. She denies diarrhea or vomiting. She denies any drainage from the surgical site. She has seen Dr. Lucas who thought that the patient has two tests that were abnormal, he recommended further evaluation. The patient presented to the ER for pain and noted to have negative CT scan for acute abnormality, but Dr. Lucas was contacted and recommended admission for possible biopsy and evaluation for possible infectious etiology. REVIEW OF SYSTEMS: All systems reviewed and negative except as stated above. PAST MEDICAL HISTORY: Hypertension, DM2, obesity, dyslipidemia, history of CVA, completely occluded left carotid, on Plavix. Denies cardiac history. She has colon polyps, history of cataract, and possible sleep apnea, back pain and degenerative disk disease as explained above with recent back surgery with microdiscectomy L3-4, chronic urinary incontinence increasingly worse, memory deficits, recent confusion, lumbar disk disease, fibromyalgia. PAST SURGICAL HISTORY: Left hip replacement, right and left shoulder repair, Achilles repair, appendectomy, cholecystectomy, tonsillectomy, microdiscectomy as outlined above, cardiac catheterization in 2013. FAMILY HISTORY: Reviewed, noncontributory. MEDICATIONS: 1. AcipHex. 2. Advair Diskus. 3. Centrum. 4. Cymbalta. 5. Flonase. 6. Lantus units at bed time. 7. Lasix 20 p.r.n. 8. NovoLog t.i.d. a.c. 9. Plavix 75 mg daily. 10. Ultram. 11. Oxycodone. 12. Vitamin D3. 13. Lisinopril 40. 14. Metoprolol at bed time. ALLERGIES: 1. FENOFIBRATE. 2. METFORMIN. 3. . 4. AVANDIA. PHYSICAL EXAMINATION: GENERAL: Patient is alert and oriented x3. No acute distress. VITAL SIGNS: Blood pressure 143/67, respirations 18, heart rate is 81, temperature 98.2, saturation 92% on room air. HEENT: Extraocular movements intact. No icterus. No pallor. Mucous membrane moist without JVD. Neck is supple, no lymphadenopathy. NECK: Supple. RESPIRATORY: Diminished air entry. No adventitious sounds. GI: Soft, nontender. No organomegaly. MUSCULOSKELETAL: The back surgical site intact. Mild duskiness, but no drainage. No swelling. No tenderness. NEUROLOGICAL: Nonfocal exam except diminished sensation in right lower extremity and unelicitable right plantar. Strength probably equal maybe 4/5 bilaterally on the lateral lower extremities. Cranial nerves 2 through 12 intact. SKIN: No rash. DIAGNOSTIC TESTS: Patient had a CT of the lumbar spine that showed no involving the right facet joint at L3-4. There is no surgical history. If there is no surgical history, MR is recommended for further evaluation. There may be something impinging on the thecal sac. Chemistry shows no abnormal findings. Her glucose level was 153. Her calcium level 9.7. Alk phos, AST, ALT all normal. Bilirubin 0.4. Her CBC essentially normal. MPV is 9.3. White count is 9.1. Her urinalysis shows 5-10 white cells, there is squamous epithelial cells 5-10, suggestive of contamination, but positive leukocyte esterase as well. ASSESSMENT: 1. Worsening back pain, mild elevated sedimentation rate recently with Dr. Lucas with suspicion of discitis, that will need biopsy. 2. History of diabetes, hypertension, risk of sleep apnea, cerebrovascular accident, left occluded carotid, on Plavix. PLAN: 1. Admit for pain control. 2. Hold off on antibiotics until evaluation with Dr. Lucas and biopsy 3. Keep n.p.o. after midnight. 4. Consider MRI. Defer to Dr. Lucas. 5. Consider ID consultation pending further recommendation from Dr. Lucas. 6. Continue glycemic control. Monitor glucose closely. Discussed with the patient and family, and agreeable on plan. Sharif Dejesus M.D. Dict: 07/08/2019 22:08:48 Trans: 07/09/2019 03:38:31 CC1: Sharif Dejesus M.D. CC2: Dr. Lucas Electronically signed by Summer [facility] Conversion Road Boss Cerner at 01/23/2023 1:38 PM CDT documented in this encounter Plan of Treatment Not on file documented as of this encounter Visit Diagnoses Not on filedocumented in this encounter
--- OUTSIDE RECORDS SUMMARY | 2025-07-29 11:58 | XMS_ITS | Encounter Summary ---
Author Organization [employer] ([place], [place], [place], [place]) Address [address] [place] [address] Care Team Providers Care Engineering Analyst Name Role Phone Unavailable Primary Care Provider Unavailabl e Encounter Details Date Type Department Care Team (Late st Contact Info) Description 07/23/2019 Transcribed Document [facility] Family Medicine [address] [place] [address] ProviderChano MD [address] [place], [place] [phone] Social History Tobacco Use Types Packs/Day Years Used Date Smoking Tobacco: Never Assessed Comments Unknown Sex and Gender Information Value Date Recorded Sex Assigned at Not on file Legal Sex Female 2:07 PM CDT Gender Identity Not on file Sexual Orientation Not on file documented as of this encounter Miscellaneous Notes * Cerner Conversion Note - Chano Gatica MD - 07/23/2019 2:03 PM CDT Patient: LUDY ANTONIO Age: 68 [...] epithelial cells. Urine culture was positive for 10???[id number] CFU/mL. CT of the L-spine was negative. [...] or confusion. ROS and hx discussed with [id number], has had ceofusion and fever last 2 [...] or rash 07/23 - No Hx available Allergies:Allergies (1) Active Reaction Avandia CHF Medications:Medications [...] fluticasone nasal (Flonase) - 1 Puff, Nasal, [place], Daily, Routine miconazole topical (Desenex AF 2% [...] Last Charted Minimum Maximum Temp 97.2 (JUL 23:28) 97.2 (JUL 23:) 98 (JUL 22 17:00) Apical HR 85 (JUL 23 10:27) 80 (JUL 22 20:48) 85 (JUL 23 10:27) Mon HR 82 (JUL 23 10:28) 64 (JUL 23 05:56) 82 (JUL 23 10:28) Resp Rate 18 (JUL 23:28) 16 (JUL 23 05:56) 18 (JUL 23 10:28) SBP H 153 (JUL 23 10:28) 133 (JUL 22 21:15) H 153 (JUL 23 10:28) DBP 80 (JUL 23 10:28) 60 (JUL 22 17:00) 80 (JUL 23 10:28) MAP 103 (JUL 23 10:28) 85 (JUL 22 21:15) 105 (JUL 22 17:00) SpO2 96 (JUL 23 10:28) 94 (JUL 22 20:00) 96 (JUL 23 10:28) Exam: Gen NAD lethargic early this am HEENT: [place] NECK: LYMPH: RESP: Nonlabored breathing CV: RRR, no murmurs, gallops, or rubs. No edema GI: soft, nontender, nondistended, : No garcia in place MS: no rash SKIN: No lesions NEURO: less interactive PSYCH: Labs:Labs (Last four charted values) WBC 7.2 [...] (OCT 13) 9.0 (OCT 07) PT 9.9 (OCT 04) 10.1 (OCT 03) INR 0.9 (JUL 04) 0.9 (JUL [...] 07) L 3.1 (OCT 04) L 3.2 (JUL 08) Micro: Rad: Radiology Results (Last 48 hours) [id number] -- 07/11/2019 09:51 MRI Brain WO (07/22/2019 [...] and white matter change without acute process. IMPRESSION: - Lumbar surgery 04/05/19 - Increasing [...] screen negative. cobalt negative, low positive chromium UM discussed with DC Medical Lab Scientist With increasing confusion with check a UA RPR negative documented in this encounter Plan of Treatment Not on file documented as of this encounter Visit Diagnoses Not on filedocumented in this encounter
[2025-07-29 12:08] LABS: Hematocrit 28.6 % (37.0-47.0); Hemoglobin 8.4 g/dL (12.2-16.2); Immature Granulocytes % 0.4 %; Mean Corpuscular HGB Conc 29.4 g/dL (31.8-35.4); Mean Corpuscular Hemoglobin 24.9 pg (27.0-31.2); Mean Corpuscular Volume 84.9 fl (81-99); Nucleated Red Blood Cells % 0 %; Platelet Count 351 K/mm3 (142-424); Red Blood Count 3.37 M/mm3 (4.20-5.40); Red Cell Distribution Width-SD 48.9 fL; White Blood Count 11.5 K/mm3 (4.8-10.8)
[2025-07-29 12:59] LABS: Iron 50 ug/dL (37-170)
[2025-07-29 13:12] LABS: Total Iron Binding Capacity 246 ug/dL (265-497)
[2025-07-29 13:39] LABS: Ferritin 25.7 ng/ml (11.1-264)
== END 2025-07-29 23:59 | disposition home or self-care (01) ==
LOC: LAB 11:49
PROVIDERS: PCP Internal Medicine Adolescent Medicine; Visit Provider Internal Medicine Medical Oncology
DX: R20.0 Anesthesia of skin (principal); R20.2 Paresthesia of skin
CPT/HCPCS: 36415; 82728; 83540; 83550; 85025

== ENCOUNTER 2025-09-06 08:04 | Outpatient (CLI) | payer MEDICARE, SELFPAY ==
--- OUTSIDE RECORDS SUMMARY | 2025-09-06 08:07 | XMS_ITS | Encounter Summary ---
Author Organization [employer] ([place], [place], [place], [place], [place]) Address [address] [place] [address] Care Team Providers Care Detention Officer Name Role Phone Unavailable Primary Care Provider Unavailabl e Encounter Details Date Type Department Care Team (Late st Contact Info) Description 07/21/2019 Transcribed Document [facility] [place] [address] ProviderChano MD [address] [place] [phone] Social History Tobacco Use Types Packs/Day Years [...] as family members. FINAL DISPOSITION: Discharged to half-way facility. Please note greater than 30 minutes spent on this discharge. /[id number] Abby Reid IK/AQ / SURY / MODL /[id number] CC: Dr. Jordan Lopze Electronically signed by Summer [facility] Conversion Ice Cream Van Vendor Wade at 01/23/2023 1:15 PM CDT documented in this encounter Plan of Treatment Not on file documented as of this encounter Visit Diagnoses Not on filedocumented in this encounter
--- OUTSIDE RECORDS SUMMARY | 2025-09-06 08:07 | XMS_ITS | Encounter Summary ---
Author Organization [employer] ([place], [place], [place], [place], [place]) Address [address] [place] [address] Care Team Providers Care Agricultural Engineering Teacher Name Role Phone Unavailable Primary Care Provider Unavailabl e Encounter Details Date Type Department Care Team (Late st Contact Info) Description 07/22/2019 Transcribed Document [facility] Radiology [address] [place] [address] Abby Reid MD [address] [place] [address] [place] [id number] Social History Tobacco Use Types Packs/Day Years [...] Refill(s) Flonase 0.05 mg/inh nasal spray: 2 [place], Nasal, Daily, 16 Gram, 0 Refill(s) Lantus [...] Daily Flonase 0.05 mg/inh nasal spray 2 [place], Nasal, Daily gabapentin 300 mg oral capsule [...] Problem list: Medical Pain//chronic / SNOMED CT 981420387 / Confirmed At risk for sleep apnea / IMO [id number] / Confirmed Back pain / SNOMED CT 4780317837 / Confirmed Cataract///beginning stage / SNOMED CT 137694773 / Confirmed Chest pain///cath negative / SNOMED CT 56291948 / Confirmed Completely occulded L carotid / SNOMED CT 9751490289 / Confirmed Lumbar disc disease / SNOMED CT 5910893146 / Confirmed Fibromyalgia / SNOMED CT 352304408 / Confirmed Hiatal hernia / SNOMED CT 136317459 / Complaint of H/O ischemic left MCA stroke / SNOMED CT 5535378088 / Confirmed Memory deficit///slow recall / SNOMED CT 0261357442 / Confirmed Numbness and tingling//right leg / SNOMED CT 5671190028 / Confirmed Obesity / SNOMED CT 3433187934 / Confirmed Right leg pain / SNOMED CT 8706082388 / Confirmed Colon polyps / SNOMED CT 852701802 / Confirmed Sleep apnea///risk / SNOMED CT 664677144 / Confirmed Wears glasses / SNOMED CT 576788594 / Confirmed, Active Problems (24) Acid reflux [...] MAP 95 (JUL 22 06:24) 67 (JUL 21 17:31) 95 (JUL 22 06:24) SpO2 L 93 (JUL 21 17:31) L 93 (JUL 21 17:31) 98 (JUL 21 12:45) General: Moderate distress. [...] 11.6 (JUL 21) 11.3 (JUL 18) 11.5 (OCT 07) 11.5 (OCT 06) HCT [...] 16) 106 (OCT 13) 104 (JUL 07) 104 (JUL 06) CO2 29 (OCT [...] 07) H 248 (JUL 06) Ca 9.1 (JUL 16) 9.4 (JUL 13) 9.0 (JUL 07) 9.0 (OCT 06) [...] 04) 63 (JUL 03) T Bili 0.3 (OCT 16) 0.3 (JUL 07) 0.3 (OCT 04) [...]
--- OUTSIDE RECORDS SUMMARY | 2025-09-06 08:07 | XMS_ITS | Encounter Summary ---
Author Organization [employer] ([place], [place], [place], [place], [place]) Address [address] [place] [address] Care Team Providers Care Program Coordinator Name Role Phone Unavailable Primary Care Provider Unavailabl e Encounter Details Date Type Department Care Team (Late st Contact Info) Description 04/20/2019 Transcribed Document [facility] [place] [address] [place] [address] ProviderChano MD [address], [place] [phone] Social History Tobacco Use Types Packs/Day Years [...] Communication Barrier : None Primary Language : [place] Islander Any Spiritual/Cultural Needs or Requests : No Currently in Unsafe Situation : No MEME MESSER 04/20/2019 16:49 EDT Social Habits Smoking Status [...] TRINIDAD, ED Nurse) 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 (Last Updated: 07/17/2014 00:15:13 EDT by KATIE TRINIDAD, ED Nurse) Cardiovascular ASMT, ED Cardiovascular Assessment WDL : WDL Cardiovascular Symptoms : None Heart Rhythm : Regular Nail Bed Color : [place] Chest Pain : No EKG Time Completed [...] None Edema, Anasarca : None MEME MESSER Ramiro 04/20/2019 16:49 EDT Capillary Refill, Left Hand : Less than/Equal to (</=) 2 seconds Capillary Refill, Right Hand : Less than/Equal to (</=) 2 seconds Capillary Refill, Left Foot : Less than/Equal to (</=) 2 seconds Capillary Refill, Right Foot : Less than/Equal to (</=) 2 seconds Clubbing Present : No Detailed Cardiovascular Assessment : Tripp GUIISAPAVEL Rubio 04/20/2019 16:49 EDT Cardiovascular ASMT, Detailed Cardiac Rhythm : Normal sinus rhythm Monitoring Leads : II MEME MESSER 04/20/2019 16:49 EDT Respiratory Breath Sounds Auscultated : Anterior, Laterally Cough : None GUI MEME Ramiro 04/20/2019 16:49 EDT Breath Sounds Assessment Grid All Lobes Breath Sounds : Clear MEME MESSER Ramiro Huddleston 04/20/2019 16:49 EDT Musculoskeletal Musculoskeletal Assessment WDL : WDL with exceptions Musculoskeletal Assessment Comment : recent back surgery 2 weeks ago by angela. GUI MEME Rubio 04/20/2019 16:49 EDT Neurologic ASMT, ED Neurologic Assessment WDL : WDL with exceptions (Comment: c/o generalized weakness x 1 week, equal movement of all extremities speech clear and appropriate. [GUIISAPAVEL Rubio 04/20/2019 16:49 EDT] ) Neurological Symptoms : Weakness Affect/Behavior : Appropriate Speech : Clear Pupils Equal, Round, Reactive to Light : Yes Pupil Description, Left : Regular, Round Pupil Reaction, Left : Brisk Pupil Description, Right : Regular, Round Pupil Reaction, Right : Brisk Pupil Size, Left : 3 mm Pupil Size, Right : 3 mm [place] Coma Scale Link : Open GCS NIH Stroke Scale Link : Tripp GUIISAPAVEL Rubio 04/20/2019 16:49 EDT [place] Coma Brendan Best Motor Response : Obey commands [place] Best Verbal Response : Oriented Brendan Eye Opening Response : Spontaneous Brendan Coma Score : 15 MEME MESSER Ramiro - 04/20/2019 16:49 EDT NIH Stroke Scale [...]
--- OUTSIDE RECORDS SUMMARY | 2025-09-06 08:07 | XMS_ITS | Encounter Summary ---
Author Organization [employer] ([place], [place], [place], [place], [place]) Address [address] [place] [address] Care Team Providers Care Glass Breaker Name Role Phone Unavailable Primary Care Provider Unavailabl e Encounter Details Date Type Department Care Team (Late st Contact Info) Description 07/21/2019 Transcribed Document [facility] [place] [facility] [place] [address] ProviderChano MD [address] [place] [phone] Social History Tobacco Use Types Packs/Day Years [...] epithelial cells. Urine culture was positive for 10???[id number] CFU/mL. CT of the L-spine was negative. [...] fluticasone nasal (Flonase) - 1 Puff, Nasal, [place], Daily, Routine miconazole topical (Desenex AF 2% [...] 47 (JUL 21 05:43) L 44 (JUL 20 16:) 60 (JUL 20 18:34) MAP 89 (JUL 21 05:43) 57 (JUL 20 16:19) 89 (JUL 21 05:43) SpO2 100 (JUL 20 21:33) 98 (JUL 20 16:) 100 (JUL 20 18:34) Exam: Gen: Alert, [...] (OCT 07) 104 (OCT 06) CO2 29 (JUL 16) 30 (JUL 13) 31 (JUL 07) [...] (JUL 03) AST 15 (OCT 16) 18 (JUL 07) 16 (OCT 04) 17 [...] UM discussed with KHARI Estes labs seen documented in this encounter Plan of Treatment Not on file documented as of this encounter Visit Diagnoses Not on filedocumented in this encounter
--- OUTSIDE RECORDS SUMMARY | 2025-09-06 08:07 | XMS_ITS | Encounter Summary ---
Author Organization [employer] ([place], [place], [place], [place], [place]) Address [address] [place] [address] Care Team Providers Care Curve Cleaner Name Role Phone Unavailable Primary Care Provider Unavailabl e Encounter Details Date Type Department Care Team (Late st Contact Info) Description 07/22/2019 Transcribed Document [facility] [place] Medicine [facility] [place] [address] ProviderChano MD [facility] [place] [phone] Social History Tobacco Use Types Packs/Day Years [...] 2. Side effects of medications. 3. A AIR INTELLIGENCE OFFICER infection. 4. Cerebrovascular disease. 5. Seizures. RECOMMENDATIONS: [...]
--- OUTSIDE RECORDS SUMMARY | 2025-09-06 08:07 | XMS_ITS | Encounter Summary ---
Author Organization [employer] ([place], [place], [place], [place], [place]) Address [address] [place] [address] Care Team Providers Care Frame Coverer Name Role Phone Unavailable Primary Care Provider Unavailabl e Encounter Details Date Type Department Care Team (Late st Contact Info) Description 04/20/2019 Transcribed Document [facility] [place] [facility] [place] [address] ProviderChano MD [facility] [place] [phone] Social History Tobacco Use Types Packs/Day Years [...] On: 04/20/2019 18:23 EDT by AARON AGARWAL beam builder helper Process Patient Disposition : Discharge Personal Belongings [...] 04/20/2019 18:23 EDT Electronically signed by Summer [facility] Conversion Manager Nursing Home Certrish at 01/23/2023 1:11 PM CDT documented in this encounter Plan of Treatment Not on file documented as of this encounter Visit Diagnoses Not on filedocumented in this encounter
--- OUTSIDE RECORDS SUMMARY | 2025-09-06 08:07 | XMS_ITS | Encounter Summary ---
Author Organization [employer] ([place], [place], [place], [place], [place]) Address [address] [place] [address] Care Team Providers Care Enlisted Advisor Name Role Phone Unavailable Primary Care Provider Unavailabl e Encounter Details Date Type Department Care Team (Late st Contact Info) Description 07/08/2019 Transcribed Document [facility] [place] [address] [place] [address] ProviderChano MD [address], [place] [phone] Social History Tobacco Use Types Packs/Day Years [...] form. Electronically signed by Julian Wheeler Conversion Educational Program Director Cerner at 01/23/2023 1:40 PM CDT documented in this encounter Plan of Treatment Not on file documented as of this encounter Visit Diagnoses Not on filedocumented in this encounter
--- OUTSIDE RECORDS SUMMARY | 2025-09-06 08:07 | XMS_ITS | Encounter Summary ---
Author Organization [employer] ([place], [place], [place], [place], [place]) Address [address] [place] [address] Care Team Providers Care Veneer Gluer Name Role Phone Unavailable Primary Care Provider Unavailabl e Encounter Details Date Type Department Care Team (Late st Contact Info) Description 04/20/2019 Transcribed Document [facility] [place] Family Medicine [facility] [place] [address] ProviderChano MD [address] [place] [phone] Social History Tobacco Use Types Packs/Day Years [...] chew) Flonase 0.05 mg/inh nasal spray: 2 [place], Nasal, Daily, 16 Gram, 0 Refill(s) Lantus: [...] shoulder repair. achilles repair. Appendectomy (SNOMED CT 440585338). Cholecystectomy (SNOMED CT 25464092). Tonsillectomy (SNOMED CT 331977540)., Reviewed as documented in chart. Family history: No family history items have been selected or recorded., Reviewed as documented in chart. 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 Oxygen Saturation 04/20/2019 16:48 EDT Oxygen Saturation 95 % . General: Alert, no acute distress. [place] coma scale: Eye response: 4 /4, verbal [...] rhythm, No ST changes, no ectopy, normal CA & QRS intervals, EP Interp. Results review: [...] Radiology results: Radiology Results (Last 48 hours) [id number] -- 04/20/2019 16:29 CT Head WO (04/20/2019 [...] chew) Flonase 0.05 mg/inh nasal spray: 2 [place], Nasal, Daily, 16 Gram, 0 Refill(s) Lantus: [...]
--- OUTSIDE RECORDS SUMMARY | 2025-09-06 08:07 | XMS_ITS | Encounter Summary ---
Author Organization [employer] ([place], [place], [place], [place], [place]) Address [address] [place] [address] Care Team Providers Care Liquid Sugar Fortifier Name Role Phone Unavailable Primary Care Provider Unavailabl e Encounter Details Date Type Department Care Team (Late st Contact Info) Description 04/20/2019 Transcribed Document [facility] [place] Medicine [facility] [place] [address] ProviderChano MD [facility] [place] [phone] Social History Tobacco Use Types Packs/Day Years [...] 04/20/2019 6:11 PM CDT Electronically signed by [facility] Conversion Bag Loader Machine Operator Cerner at 01/23/2023 1:39 PM CDT documented in this encounter Plan of Treatment Not on file documented as of this encounter Visit Diagnoses Not on filedocumented in this encounter
--- OUTSIDE RECORDS SUMMARY | 2025-09-06 08:07 | XMS_ITS | Encounter Summary ---
Author Organization [employer] ([place], [place], [place], [place], [place]) Address [address] [place] [address] Care Team Providers Care Graduate School Dean Name Role Phone Unavailable Primary Care Provider Unavailabl e Encounter Details Date Type Department Care Team (Late st Contact Info) Description 07/21/2019 Transcribed Document [facility] Family Medicine [facility] [place] [address] ProviderChano MD [address] [place], [place] [id number] Social History Tobacco Use Types Packs/Day Years [...] On: 07/21/2019 14:36 EDT by HORACIO ACHARYA RN-Party Supply SpecialistLemon Picker Progress Note Discharge Arrangements : Patient Post-Acute Information Patient Name: ADRIENNE ANTONIO Gender: Female : [birth year] Age: 68 Years No Post-Acute Placement(s) Listed No Post-Acute Service(s) Listed No Curaspan Referral(s) Listed Barriers to Discharge Identified : Clinical Condition of Patient Barriers to Discharge Unresolved : Clinical Condition of Patient Certification for Post-Acute Care Initiated : 07/21/2019 EDT HORACIO ACHARYA RN-Party Supply Specialist - 07/21/2019 14:36 EDT Narrative Progress Note Narrative Progress Note : Lisbeth met with pt and family at bedside, but her boss has declined admission. Spoke to Yodit with [facility], she can offer at all 3 in [place], and [place]. They chose [facility], baileyert initiated. CM will continue to follow. Historical Progress Note : Pt was referred to 18 debbie/psych facilities by [facility]. All have declined admission, some stating she needs physical rehab and/or does not have any acute issues for psych admission. Spouse agreeable to try for SNF admission since she is still requiring assistance with ADL's and bed mobility. He chose [facility], [facility], [facility], and [facility]. Referrals sent via [employer]. Spoke to Lisbeth with the [facility]. She states they have a utility worker driver that can see pt at the facility. She will need to come do a bedside eval. D/W Dr. Horner as well. CM will continue to follow. HORACIO ACHARYA RN-Party Supply Specialist - 07/20/19 15:47:15 [facility] consulted. They received [...] CM will continue to follow. HORACIO ACHARYA RN-Party Supply Specialist - 07/19/19 15:10:43 [facility] eval for inpatient psych on Thursday 07/19. CM will continue to follow. HORACIO ACHARYA RN-Party Supply Specialist - 07/16/19 12:46:58 [facility] declined admission to their psych unit. No word from . [facility]. Met with pt's daughter and had lengthy discussion regarding disposition. CM will consult MARINA at time of dc for help with admission to debbie-psych unit somewhere. D/W Dr. Horner and Dr. Jama. CM will continue to follow. HORACIO ACHARYA RN-Party Supply Specialist - 07/15/19 14:03:13 Spoke to pt's spouse Kian on the phone today. 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 He states he does not want her going to those places as she kows people there. He agrees to referrals to [facility] and [facility] inpatient psych units. Referral sent and spoke to JUSTA Perez at [facility] and Royce RN at [facility]. CM will continue to follow. HORACIO ACHARYA RN-Party Supply Specialist - 07/14/19 13:36:43 Dr. Valdez consult this [...] CM will continue to follow. HORACIO ACHARYA RN-Party Supply Specialist - 07/13/19 17:41:20 psych consult referral faxed to Dr. Valdez's office to assess for psychosis. SANJIV VOGT, EDISON-Party Supply Specialist - 07/11/19 16:14:26 HORACIO ACHARYA RN-Party Supply Specialist - 07/21/2019 14:36 EDT documented in this encounter Plan of Treatment Not on file documented as of this encounter Visit Diagnoses Not on filedocumented in this encounter
--- OUTSIDE RECORDS SUMMARY | 2025-09-06 08:07 | XMS_ITS | Encounter Summary ---
Author Organization [employer] ([place], [place], [place], [place], [place]) Address [address] [place] [address] Care Team Providers Care Service Control Operator Name Role Phone Unavailable Primary Care Provider Unavailabl e Encounter Details Date Type Department Care Team (Late st Contact Info) Description 04/22/2019 Transcribed Document [facility] [place] [address] [place] [address] ProviderChano MD [facility] [place], [place] [id number] Social History Tobacco Use Types Packs/Day Years [...]
--- OUTSIDE RECORDS SUMMARY | 2025-09-06 08:07 | XMS_ITS | Encounter Summary ---
Author Organization [employer] ([place], [place], [place], [place], [place]) Address [address] [place] [address] Care Team Providers Care Wares Sorter Name Role Phone Unavailable Primary Care Provider Unavailabl e Encounter Details Date Type Department Care Team (Late st Contact Info) Description 07/21/2019 Transcribed Document [facility] Family Medicine [address] [place] [address] ProviderChano MD [address] [place], [place] [id number] Social History Tobacco Use Types Packs/Day Years [...]
--- OUTSIDE RECORDS SUMMARY | 2025-09-06 08:07 | XMS_ITS | Clinical Summary ---
Author Organization [facility] Address [address] [facility] [address] [place] [address] Phone Care Team Providers Care Quality Management Coordinator Name Role Phone Status, Fax Unavailable Conditions or Problems Problem Name Problem Code Onset Date Status Entry Date Provider Comment Standard Description Annotate DIARRHEA 46622287 (SNOMED CT) Active 01/21 Isidoro Lau MD Diarrhea MORBID OBESITY 984403845 (SNOMED CT) Active 01/21 Cher Z Morbid obesity DIABETES MELLITUS 41545029 (SNOMED CT) Active 12/29 Isidoro Lau MD Diabetes mellitus APHASIA 58151663 (SNOMED CT) Active 12/29 Isidoro Lau MD Aphasia CVA 426833890 (SNOMED CT) Active 12/29 Irina Lau Cerebrovascular accident CONFUSION 53211711 (SNOMED CT) Active 12/29 Irina Lau Clouded consciousness ESRD 84570001 (SNOMED CT) Active 12/28 Dorita Connolly End-stage renal disease SWELLING IN HAND, LFT M79.89 (ICD-10-CM) Active 12/28 Dorita Connolly Other specified soft tissue disorders HAND PAIN, LEFT 16123919 (SNOMED CT) Active 12/28 Dorita Connolly Hand pain SWELLING MASS, LFT BASE OF EAR AND NECK R22.1 (ICD-10-CM) Active 12/28 Dorita Connolly Localized swelling, mass and lump, neck Medications Medication Instructions Start Date Stop Date Generic Name ND Provider LEVAQUIN TABS 8 LEVOFLOXACIN TABS 48809535416 Cher Z LEVAQUIN TABS 1 LEVOFLOXACIN TABS 77607410224 Giovana Holguin ULTRAM TABLET TRAMADOL HC L TABS 23032400071 Giovana Holguin PLAVIX TABS CLOPIDOGREL BISULFATE TABS 25659403553 Giovana Holguin NOVOLOG SOLUTION INSULIN ASPART SOLN 17128648389 Giovana Holguin LORTAB TABLET HYDROCODONE -ACET AMINOPHEN TABS 24779082668 Giovana Holguin LISINOPRIL TABS LISINOPRIL TABS 87473 393081 Giovana Holguin LEXAPRO TABS ESCITALOPRAM OXALATE TABS 95761869710 Giovana Holguin LANTUS SOLN INSULIN GLARG INE SOLN 46844253963 Giovana Holguin FLOVENT HFA AEROSOL FLUTICASONE PROPIONATE HFA AERO 59649340128 Giovana Holguin SEROQUEL TABS QUETIAPINE FUMARATE TABS 15216599326 Giovana Holguin LOPRESSOR TABS METOPROLOL TARTRATE TABS 25752695285 Giovana Holguin AMLODIPINE BESYLATE TABS AMLODIPINE BESYLATE TABS 87524609982 Giovana Holguin ACIPHEX TBEC RABEPRAZOLE SODIUM TBEC 51482271484 Giovana Holguin Medications Administered No information available. [...]
--- OUTSIDE RECORDS SUMMARY | 2025-09-06 08:07 | XMS_ITS | Encounter Summary ---
Author Organization [employer] ([place], [place], [place], [place], [place]) Address [address] [place] [address] Care Team Providers Care Gluing Machine Feeder Name Role Phone Unavailable Primary Care Provider Unavailabl e Encounter Details Date Type Department Care Team (Late st Contact Info) Description 07/21/2019 Transcribed Document [facility] Radiology [address] [place] [address] Abby Reid MD [address] [place] [address] [place] [id number] Social History Tobacco Use Types Packs/Day Years [...] Refill(s) Flonase 0.05 mg/inh nasal spray: 2 Gary, Nasal, Daily, 16 Gram, 0 Refill(s) Lantus [...] Daily Flonase 0.05 mg/inh nasal spray 2 Gary, Nasal, Daily gabapentin 300 mg oral capsule [...] Problem list: Medical Pain//chronic / SNOMED CT 655912109 / Confirmed At risk for sleep apnea / IMO 29246136 / Confirmed Back pain / SNOMED CT 4711648026 / Confirmed Cataract///beginning stage / SNOMED CT 355788934 / Confirmed Chest pain///cath negative / SNOMED CT 09350710 / Confirmed Completely occulded L carotid / SNOMED CT 2233374122 / Confirmed Lumbar disc disease / SNOMED CT 9104577904 / Confirmed Fibromyalgia / SNOMED CT 692683778 / Confirmed Hiatal hernia / SNOMED CT 710188353 / Complaint of H/O ischemic left MCA stroke / SNOMED CT 6958410145 / Confirmed Memory deficit///slow recall / SNOMED CT 5533685361 / Confirmed Numbness and tingling//right leg / SNOMED CT 8909949027 / Confirmed Obesity / SNOMED CT 1815713649 / Confirmed Right leg pain / SNOMED CT 9182637901 / Confirmed Colon polyps / SNOMED CT 978136336 / Confirmed Sleep apnea///risk / SNOMED CT 595219579 / Confirmed Wears glasses / SNOMED CT 626104449 / Confirmed, Active Problems (24) Acid reflux [...] 05:43) 97.5 (JUL 21 05:43) 98 (JUL 15 16:19) Apical HR 61 (JUL 21 10:17) 61 (JUL 21 10:17) 75 (JUL 20 22:36) Mon HR 61 (JUL 21 05:43) 61 (JUL 21 05:43) 81 (JUL 20 18:34) Resp Rate 14 (JUL 21 05:00) 14 (JUL 21 05:00) 17 (JUL 15 16:19) SBP 125 (JUL 16 05:43) 109 (JUL 15 16:19) 125 (JUL 16 05:43) DBP L 47 (JUL 21 05:43) L 44 (JUL 15 16:19) 60 (JUL 15 18:34) MAP 89 (JUL 16 05:43) 57 (JUL 15 16:19) 89 (JUL 16 05:43) SpO2 100 (JUL 15 21:33) 98 (JUL 20 16:19) 100 (JUL 15 18:34) General: Moderate [...] BUN H 27 (JUL 16) H 23 (OCT 13) 14 (JUL 07) 14 (OCT 06) Cr 1.00 (OCT 16) 1.00 (OCT 13) 0.90 (OCT 07) 0.90 (OCT 06) Glu R H 134 (JUL 16) H 213 (JUL 13) H 202 (JUL 07) H 248 (JUL 06) Ca 9.1 (OCT 16) 9.4 (OCT 13) 9.0 (OCT 07) 9.0 (OCT 06) PT 9.9 (OCT 04) 10.1 (JUL 03) INR 0.9 (JUL [...] 04) 0.4 (JUL 03) PTN L 6.2 (OCT 16) 6.7 [...]
--- OUTSIDE RECORDS SUMMARY | 2025-09-06 08:07 | XMS_ITS | Encounter Summary ---
Author Organization [employer] ([place], [place], [place], [place], [place]) Address [address] [place] [address] Care Team Providers Care Livestock Buyer Name Role Phone Unavailable Primary Care Provider Unavailabl e Encounter Details Date Type Department Care Team (Late st Contact Info) Description 04/20/2019 Transcribed Document [facility] Family Medicine [address] [place] [address] ProviderChano MD [address] [place] [address] Social History Tobacco Use Types [...] Gatica MD - 04/20/2019 6:24 PM CDT [place] [address] LUDY ANTONIO Ileana :1950 Visit Time:04/20/2019 Your Visit Summary Your Care Team Admitting Physician - ADELE CRESPO MD Attending Physician - ADELE CRESPO MD Primary Care Physician - QUIRINO SENIOR (REF[facility] Referring Physician - ADELE CRESPO MD Your [...] When Within 2 to 3 days Where: [address] [place] [address] [employer] (1) Allergies Avandia (CHF) NSAIDs fenofibrate metFORMIN [...] range between ( 0.0 and 7.0 ) Benson #: 0.73 K/uL -- Normal range between ( 0.16 and 1.00 ) Eos #: 0.16 x10(3)/uL -- Normal range between ( 0.00 and 0.80 ) Benson %: 8.4 % -- Normal range between [...] ) Urine Bilirubin Dipstick: Negative Urine Specific Het[place]er: 1.017 -- Normal range between ( 1.005 [...] treat less common causes of UTI. ??? Wqxp-vcc-imfiuzg medicines to treat pain. ??? Drinking enough water to stay hydrated. Follow these instructions at home: ??? Take oehm-llq-greitpr and prescription medicines only as told by [...] 07/02/2006 Document Revised: 03/17/2018 Document Reviewed: 08/12/2016 [employer] Patient Education ?? 2019 [employer] Confusion Confusion is the inability to [...] 10/30/2005 Document Revised: 04/11/2017 Document Reviewed: 10/28/2014 [employer] Patient Education ?? 2019 [employer] Emergency Awareness and Preventative Care STROKE is [...] Assistance with quitting is available by contacting 3-332-JUTO-NOW. This is a free resource providing counseling, [...] was given the opportunity to ask questions. Patient/Slate Handler Name: Patient/Slate Handler Signature: Relationship to Patient: Clinician/Hospital Slate Handler Signature: Please Provide a Telephone Number Where You Can Be Reached: Is it Permissible To Leave a Message? Date: documented in this encounter Plan of Treatment Not on file documented as of this encounter Visit Diagnoses Not on filedocumented in this encounter
--- OUTSIDE RECORDS SUMMARY | 2025-09-06 08:07 | XMS_ITS | Encounter Summary ---
Author Organization [employer] ([place], [place], [place], [place], [place]) Address [address] [place] [address] Care Team Providers Care Carpenter Maintenance Name Role Phone Unavailable Primary Care Provider Unavailabl e Encounter Details Date Type Department Care Team (Late st Contact Info) Description 07/22/2019 Transcribed Document [facility] [place] [address] [place] [address] ProviderChano MD [address] [place], [place] [phone] Social History Tobacco Use Types Packs/Day Years [...] On: 07/22/2019 17:10 EDT by HORACIO ACHARYA RN-Staple LasterDocument Imaging Manager Progress Note Discharge Arrangements : Patient Post-Acute Information Patient Name: ADRIENNE ANTONIO Gender: Female : [birth year] Age: 68 Years No Post-Acute Placement(s) Listed No Post-Acute Service(s) Listed No Curaspan Referral(s) Listed Barriers to Discharge Identified : Clinical Condition of Patient Barriers to Discharge Unresolved : Clinical Condition of Patient HORACIO ACHARYA RN-Staple Laster - 07/23/2019 17:10 EDT Narrative Progress Note Narrative Progress Note : Pt's confusion is worse. She is unable to use utensils and is using her hands to eat. [facility] reconsulted. Labs/urine sent. Psychiatric called asking if pt still needed placement. [facility] liaison Yodit met with pt at bedside and feels pt would do better if went to psych unit prior to rehab. Spoke to Urvashi at [facility] and sent [...] she can offer at all 3 in [place], [place], and [place]. They chose [facility], baileyert initiated. CM will continue to follow. HORACIO ACHARYA RN-Staple Laster - 07/21/19 14:38:34 Pt was referred to 18 debbie/psych facilities by [facility]. All have declined admission, some stating she needs physical rehab and/or does not have any acute issues for psych admission. Spouse agreeable to try for SNF admission since she is still requiring assistance with ADL's and bed mobility. He chose [facility], [facility], and [facility]. Referrals sent via [employer]. Spoke to Lisbeth with the [facility]. She states they have a hospital nursing assistant that can see pt at the facility. She will need to come do a bedside eval. D/W Dr. Horner as well. CM will continue to follow. HORACIO ACHARYA RN-Staple Laster - 07/20/19 15:47:15 [facility] consulted. They received [...] CM will continue to follow. HORACIO ACHARYA RN-Staple Laster - 07/19/19 15:10:43 [facility] eval for inpatient psych on Thursday 07/19. CM will continue to follow. HORACIO ACHARYA RN-Staple Laster - 07/16/19 12:46:58 [facility] declined admission to their psych unit. No word from [facility]. Met with pt's daughter and had lengthy discussion regarding disposition. CM will consult [facility] at time of dc for help with admission to debbie-psych unit somewhere. D/W Dr. Horner and Dr. Jama. CM will continue to follow. HORACIO ACHARYA RN-Staple Laster - 07/15/19 14:03:13 Spoke to pt's spouse Kian on the phone today. 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 He states he does not want her going to those places as she kows people there. He agrees to referrals to [facility] and [facility] inpatient psych units. Referral sent and spoke to JUSTA Perez at [facility] and Royce RN at [facility]. CM will continue to follow. HORACIO ACHARYA RN-Staple Laster - 07/14/19 13:36:43 Dr. Valdez consult this [...] CM will continue to follow. HORACIO ACHARYA RN-Staple Laster - 07/13/19 17:41:20 psych consult referral faxed to Dr. Valdez's office to assess for psychosis. SANJIV VOGT RN-Staple Laster - 07/11/19 16:14:26 HORACIO ACHARYA RN-Staple Laster - 07/23/2019 17:10 EDT documented in this encounter Plan of Treatment Not on file documented as of this encounter Visit Diagnoses Not on filedocumented in this encounter
--- OUTSIDE RECORDS SUMMARY | 2025-09-06 08:07 | XMS_ITS | Encounter Summary ---
Author Organization [employer] ([place], [place], [place], [place], [place]) Address [address] [place] [address] Care Team Providers Care Supervisor Veneer Name Role Phone Unavailable Primary Care Provider Unavailabl e Encounter Details Date Type Department Care Team (Late st Contact Info) Description 07/08/2019 Transcribed Document [facility] [address] [place] [address] ProviderChano MD [address] [place], [place] [id number] Social History Tobacco Use Types Packs/Day Years [...] form. Electronically signed by Julian Wheeler Conversion Transit Operations Supervisor Cerner at 01/23/2023 1:12 PM CDT documented in this encounter Plan of Treatment Not on file documented as of this encounter Visit Diagnoses Not on filedocumented in this encounter
--- OUTSIDE RECORDS SUMMARY | 2025-09-06 08:07 | XMS_ITS | Encounter Summary ---
Author Organization [employer] ([place], [place], [place], [place], [place]) Address [address] [place] [address] Care Team Providers Care Event Av Operator Name Role Phone Unavailable Primary Care Provider Unavailabl e Encounter Details Date Type Department Care Team (Late st Contact Info) Description 07/22/2019 Transcribed Document [facility] [place] [address] [place] [address] ProviderChano MD [address] [place], [place] [phone] Social History Tobacco Use Types Packs/Day Years [...]
--- OUTSIDE RECORDS SUMMARY | 2025-09-06 08:07 | XMS_ITS | Encounter Summary ---
Author Organization [employer] ([place], [place], [place], [place], [place]) Address [address] [place] [address] Care Team Providers Care Epic Stork Specialists Name Role Phone Unavailable Primary Care Provider Unavailabl e Encounter Details Date Type Department Care Team (Late st Contact Info) Description 04/20/2019 Transcribed Document [facility] [place] Family Medicine [facility] [place] [address] ProviderChano MD [address] [place] [id number] Social History Tobacco Use Types Packs/Day Years [...] : 2 - Emergent Tracking Group : [facility] ED Magda Egan Rn - 04/20/2019 16:31 [...] LIZ VILLEGAS; Reviewed Date: 04/20/2019 16:32 EDT metFORMIN Estimated [...] 16:35:02 EDT) Problems(Active) Acid reflux (SNOMED CT :812605488 ) Name of Problem: Acid reflux ; Recorder: MIGEL GARCIA RN; Confirmation: Confirmed ; Classification: Patient Stated ; Code: 642415017 ; Contributor System: PowerChart ; Last Updated: 03/17/2014 19:28 EDT ; Life Cycle Date: 06/24/2013 ; Life Cycle Status: Active ; Vocabulary: SNOMED CT Allergic asthma (SNOMED CT :0120305502 ) Name of Problem: Allergic asthma ; Recorder: MIGEL GARCIA RN; Confirmation: Confirmed ; Classification: Patient Stated ; Code: 1066538132 ; Contributor System: PowerChart ; Last Updated: 03/17/2014 19:28 EDT ; Life Cycle Date: 06/24/2013 ; Life Cycle Status: Active ; Vocabulary: SNOMED CT Arthritis (SNOMED CT :8829678 ) Name of Problem: Arthritis ; Recorder: MIGEL GRACIA RN; Confirmation: Confirmed ; Classification: Patient Stated ; Code: 8796968 ; Contributor System: PowerChart ; Last Updated: 03/17/2014 19:28 EDT ; Life Cycle Date: 06/24/2013 ; Life Cycle Status: Active ; Vocabulary: SNOMED CT At risk for sleep apnea (IMO :40730919 ) Name of Problem: At risk for sleep apnea ; Recorder: SYSTEM, SYSTEM; Confirmation: Confirmed ; Classification: Medical ; Code: 73059469 ; Last Updated: 04/01/2019 10:50 EDT ; Life Cycle Date: 04/01/2019 ; Life Cycle Status: Active ; Vocabulary: IMO Back pain (SNOMED CT :8677269535 ) Name of Problem: Back pain ; Recorder: BIANKA DUNN RN; Confirmation: Confirmed ; Classification: Medical ; Code: 4270871517 ; Contributor System: PowerChart ; Last Updated: 04/01/2019 10:23 EDT ; Life Cycle Date: 04/01/2019 ; Life Cycle Status: Active ; Vocabulary: SNOMED CT BP+ - Hypertension (SNOMED CT :598346525 ) Name of Problem: BP+ - Hypertension ; Recorder: MIGEL GARCIA RN; Confirmation: Confirmed ; Classification: Patient Stated ; Code: 467443506 ; Contributor System: PowerChart ; Last Updated: 03/22/2014 10:58 EDT ; Life Cycle Date: 06/24/2013 ; Life Cycle Status: Active ; Vocabulary: SNOMED CT Cataract///beginning stage (SNOMED CT :598119088 ) Name of Problem: Cataract///beginning stage ; Recorder: BIANKA DUNN RN; Confirmation: Confirmed ; Classification: Medical ; Code: 355264388 ; Contributor System: TubisChart ; Last Updated: 04/01/2019 10:22 EDT ; Life Cycle Date: 04/01/2019 ; Life Cycle Status: Active ; Vocabulary: SNOMED CT Chest pain///cath negative (SNOMED CT :70755288 ) Name of Problem: Chest pain///cath negative ; Onset Date: 2012 ; Recorder: BIANKA DUNN RN; Confirmation: Confirmed ; Classification: Medical ; Code: 85599282 ; Contributor System: TubisChart ; Last Updated: 04/01/2019 10:27 EDT ; Life Cycle Date: 04/01/2019 ; Life Cycle Status: Active ; Vocabulary: SNOMED CT Colon polyps (SNOMED CT :766182432 ) Name of Problem: Colon polyps ; Recorder: BIANKA DUNN RN; Confirmation: Confirmed ; Classification: Medical ; Code: 032246074 ; Contributor System: TubisChart ; Last Updated: 04/01/2019 10:22 EDT ; Life Cycle Date: 04/01/2019 ; Life Cycle Status: Active ; Vocabulary: SNOMED CT Completely occulded L carotid (SNOMED CT :2883327228 ) Name of Problem: Completely occulded L carotid ; Recorder: STEPHANIE ARREGUIN RN; Confirmation: Confirmed ; Classification: Medical ; Code: 9440085045 ; Contributor System: PowerChart ; Last Updated: 04/23/2016 17:54 EDT ; Life Cycle Date: 04/25/2015 ; Life Cycle Status: Active ; Vocabulary: SNOMED CT Congestive heart failure - due to Avandia resolved (SNOMED CT :92329552 ) Name of Problem: Congestive heart failure - due to Avandia resolved ; Recorder: MIGEL GARCIA RN; Confirmation: Confirmed ; Classification: Patient Stated ; Code: 24381970 ; Contributor System: TubisChart ; Last Updated: 04/23/2016 17:53 EDT ; Life Cycle Date: 06/24/2013 ; Life Cycle Status: Active ; Vocabulary: SNOMED CT ; Comments: 06/24/2013 10:32 - MIGEL GARCIA, RN per pt and DM - Diabetes mellitus (SNOMED CT :346752788 ) Name of Problem: DM - Diabetes mellitus ; Recorder: MIGEL GARCIA RN; Confirmation: Confirmed ; Classification: Patient Stated ; Code: 305559460 ; Contributor System: PowerChart ; Last Updated: 03/22/2014 10:54 EDT ; Life Cycle Date: 06/24/2013 ; Life Cycle Status: Active ; Vocabulary: SNOMED CT Dyslipidemia (SNOMED CT :7410937988 ) Name of Problem: Dyslipidemia ; Recorder: MIGEL GARCIA RN; Confirmation: Confirmed ; Classification: Patient Stated ; Code: 6559034046 ; Contributor System: PowerChart ; Last Updated: 03/17/2014 19:28 EDT ; Life Cycle Date: 06/24/2013 ; Life Cycle Status: Active ; Vocabulary: SNOMED CT Fibromyalgia (SNOMED CT :229836500 ) Name of Problem: Fibromyalgia ; Recorder: BIANKA DUNN RN; Confirmation: Confirmed ; Classification: Medical ; Code: 509102417 ; Contributor System: PowerChart ; Last Updated: 04/01/2019 10:24 EDT ; Life Cycle Date: 04/01/2019 ; Life Cycle Status: Active ; Vocabulary: SNOMED CT H/O ischemic left MCA stroke (SNOMED CT :2512429860 ) Name of Problem: H/O ischemic left MCA stroke ; Onset Date: 09/05/2012 ; Recorder: SYBIL MCGILL MD-EMR; Confirmation: Confirmed ; Classification: Medical ; Code: 3305018439 ; Contributor System: PowerChart ; Last Updated: 04/23/2016 17:54 EDT ; Life Cycle Date: 04/23/2016 ; Life Cycle Status: Active ; Responsible Provider: SYBIL MCGILL MD-EMR; Vocabulary: SNOMED CT Hiatal hernia (SNOMED CT :553211718 ) Name of Problem: Hiatal hernia ; Recorder: SYBIL MCGILL MD-EMR; Confirmation: Complaint of ; Classification: Medical ; Code: 919450300 ; Contributor System: PowerChart ; Last Updated: 12/03/2015 16:45 EST ; Life Cycle Date: 12/03/2015 ; Life Cycle Status: Active ; Vocabulary: SNOMED CT Lumbar disc disease (SNOMED CT :0406703104 ) Name of Problem: Lumbar disc disease ; Recorder: BIANKA DUNN RN; Confirmation: Confirmed ; Classification: Medical ; Code: 4795784937 ; Contributor System: TubisChart ; Last Updated: 04/01/2019 10:25 EDT ; Life Cycle Date: 04/01/2019 ; Life Cycle Status: Active ; Vocabulary: SNOMED CT Memory deficit///slow recall (SNOMED CT :2017978977 ) Name of Problem: Memory deficit///slow recall ; Recorder: BIANKA DUNN RN; Confirmation: Confirmed ; Classification: Medical ; Code: 9279280012 ; Contributor System: PowerChart ; Last Updated: 04/01/2019 10:51 EDT ; Life Cycle Status: Active ; Vocabulary: SNOMED CT Numbness and tingling//right leg (SNOMED CT :8927267959 ) Name of Problem: Numbness and tingling//right leg ; Recorder: BIANKA DUNN RN; Confirmation: Confirmed ; Classification: Medical ; Code: 6284314445 ; Contributor System: PowerChart ; Last Updated: 04/01/2019 10:23 EDT ; Life Cycle Date: 04/01/2019 ; Life Cycle Status: Active ; Vocabulary: SNOMED CT Obesity (SNOMED CT :1473797190 ) Name of Problem: Obesity ; Recorder: SYBIL MCGILL MD-EMR; Confirmation: Confirmed ; Classification: Medical ; Code: 1859698193 ; Contributor System: PowerChart ; Last Updated: 04/23/2016 17:53 EDT ; Life Cycle Date: 04/23/2016 ; Life Cycle Status: Active ; Responsible Provider: SYBIL MCGILL MD-EMR; Vocabulary: SNOMED CT Pain//chronic (SNOMED CT :769860548 ) Name of Problem: Pain//chronic ; Recorder: BIANKA DUNN RN; Confirmation: Confirmed ; Classification: Medical ; Code: 179859626 ; Contributor System: PowerChart ; Last Updated: 04/01/2019 10:24 EDT ; Life Cycle Date: 04/01/2019 ; Life Cycle Status: Active ; Vocabulary: SNOMED CT Right leg pain (SNOMED CT :7737517689 ) Name of Problem: Right leg pain ; Recorder: BIANKA DUNN RN; Confirmation: Confirmed ; Classification: Medical ; Code: 8123389525 ; Contributor System: SoundCloud ; Last Updated: 04/01/2019 10:23 EDT ; Life Cycle Date: 04/01/2019 ; Life Cycle Status: Active ; Vocabulary: SNOMED CT Sleep apnea///risk (SNOMED CT :380627002 ) Name of Problem: Sleep apnea///risk ; Recorder: BIANKA DUNN RN; Confirmation: Confirmed ; Classification: Medical ; Code: 030998380 ; Contributor System: SoundCloud ; Last Updated: 04/01/2019 10:37 EDT ; Life Cycle Date: 04/01/2019 ; Life Cycle Status: Active ; Vocabulary: SNOMED CT Wears glasses (SNOMED CT :451256268 ) Name of Problem: Wears glasses ; Recorder: BIANKA DUNN RN; Confirmation: Confirmed ; Classification: Medical ; Code: 532293777 ; Contributor System: SoundCloud ; Last Updated: 04/01/2019 10:19 EDT ; Life Cycle Date: 04/01/2019 ; Life Cycle Status: Active ; Vocabulary: SNOMED CT Diagnoses(Active) Altered mental status Date: 04/20/2019 ; Diagnosis Type: Reason For Visit ; Confirmation: Complaint of ; Clinical Dx: Altered mental status ; Classification: Medical ; Clinical Service: Emergency medicine ; Code: PNED ; Probability: 0 ; Diagnosis Code: [id number] ED Height and Weight Height Source : Stated Height Entry Format : [place] Height, Feet : 5 ft(Converted to: 152 cm, 60 Inch) Height, Inches : 4 Inch(Converted to: 0 ft 4 Inch, 10.16 cm) Clinical Height : 162.56 cm Weight Source, ED : Critical estimated dosing weight Weight Entry Format : [place] Weight, Pounds : 240 lb Clinical Dosing Weight : 109.09 kg Body Surface Area (BSA) : 2.12 m2 Body Mass Index : 41.3 kg/m2 (>HHI) Ross Body Weight (IBW) : 54.3 kg Magda Egan Rn - 04/20/2019 16:31 EDT documented in this encounter Plan of Treatment Not on file documented as of this encounter Visit Diagnoses Not on filedocumented in this encounter
--- OUTSIDE RECORDS SUMMARY | 2025-09-06 08:07 | XMS_ITS | Encounter Summary ---
Author Organization [email or web address] ([place], [place], [place], [place], [place]) Address [address] [place] [address] Care Team Providers Care Fac Engineer Name Role Phone Unavailable Primary Care Provider Unavailabl e Encounter Details Date Type Department Care Team (Late st Contact Info) Description 07/22/2019 Transcribed Document [facility] [place] [place] Family Medicine [address] [place] [address] ProviderChano MD [address] [place], [place] [id number] Social History Tobacco Use Types Packs/Day Years [...] EDT Electronically signed by Julian Wheeler Conversion Fruit Harvester Machine Operator Januaryner at 01/23/2023 1:25 PM CDT documented in this encounter Plan of Treatment Not on file documented as of this encounter Visit Diagnoses Not on filedocumented in this encounter
--- OUTSIDE RECORDS SUMMARY | 2025-09-06 08:08 | XMS_ITS | Encounter Summary ---
Author Organization [employer] ([place], [place], [place], [place], [place]) Address [address] [place] [address] Care Team Providers Care Investigator Name Role Phone Unavailable Primary Care Provider Unavailabl e Encounter Details Date Type Department Care Team (Late st Contact Info) Description 07/19/2019 Transcribed Document [facility] [place] [address] [place] [address] ProviderChano MD [address] [place] [id number] Social History Tobacco Use Types Packs/Day Years [...]
--- OUTSIDE RECORDS SUMMARY | 2025-09-06 08:08 | XMS_ITS | Encounter Summary ---
Author Organization [email or web address] ([place], [place], [place], [place], [place]) Address [address] [place] [address] Care Team Providers Care Grain Wafer Machine Operator Name Role Phone Unavailable Primary Care Provider Unavailabl e Encounter Details Date Type Department Care Team (Late st Contact Info) Description 07/20/2019 Transcribed Document [facility] [place] [address] [place] [address] ProviderChano MD [address] [place] [id number] Social History Tobacco Use Types Packs/Day Years [...] On: 07/20/2019 15:39 EDT by HORACIO ACHARYA RN-Human Services Care SpecialistRigging Man Progress Note Discharge Arrangements : Patient Post-Acute Information Patient Name: LUDY NATONIO Gender: Female : [birth year] Age: 68 Years No Post-Acute Placement(s) Listed No Post-Acute Service(s) Listed No [place] Referral(s) Listed Barriers to Discharge Identified : Clinical Condition of Patient Barriers to Discharge Unresolved : Clinical Condition of Patient Is the Patient Meeting Medical Necessity : Yes HORACIO ACHARYA RN-Human Services Care Specialist - 07/20/2019 15:39 EDT Narrative Progress Note Narrative Progress Note : Pt was referred to 18 debbie/psych facilities by [facility]. All have declined admission, some stating she needs physical rehab and/or does not have any acute issues for psych admission. Spouse agreeable to try for SNF admission since she is still requiring assistance with ADL's and bed mobility. He chose [facility], [facility], [facility], and [facility]. Referrals sent via Dariel. Spoke to Lisbeth with the [facility] and [facility]. She states they have a investigations consultant that can see pt at the facility. [...] CM will continue to follow. HORACIO ACHARYA, RN-Human Services Care Specialist - 07/19/19 15:10:43 [facility] eval for inpatient psych on Thursday 07/19. CM will continue to follow. HORACIO ACHARYA RN-Human Services Care Specialist - 07/16/19 12:46:58 [facility] declined admission to their psych unit. No word from [facility]. Met with pt's daughter and had lengthy discussion regarding disposition. CM will consult [facility] at time of dc for help with admission to debbie-psych unit somewhere. D/W Dr. Horner and Dr. Jama. CM will continue to follow. HORACIO ACHARYA RN-Human Services Care Specialist - 07/15/19 14:03:13 Spoke to pt's spouse Kian on the phone today. 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 He states he does not want her going to those places as she kows people there. He agrees to referrals to [facility] and [facility] inpatient psych units. Referral sent and spoke to JUSTA Perez at [facility] and Royce RN at [facility]. CM will continue to follow. HORACIO ACHARYA RN-Human Services Care Specialist - 07/14/19 13:36:43 Dr. Valdez consult [...] CM will continue to follow. HORACIO ACHARYA RN-Human Services Care Specialist - 07/13/19 17:41:20 psych consult referral faxed to Dr. Valdez's office to assess for psychosis. SANJIV VOGT RN-Human Services Care Specialist - 07/11/19 16:14:26 HORACIO ACHARYA RN-Human Services Care Specialist - 07/20/2019 15:39 EDT Electronically signed by Summer [facility] Conversion Oracle Erp Developer Cerner at 01/23/2023 1:18 PM CDT documented in this encounter Plan of Treatment Not on file documented as of this encounter Visit Diagnoses Not on filedocumented in this encounter
--- OUTSIDE RECORDS SUMMARY | 2025-09-06 08:08 | XMS_ITS | Encounter Summary ---
Author Organization [employer] ([place], [place], [place], [place], [place]) Address [address] [place] [address] Care Team Providers Care Childcare Worker Name Role Phone Unavailable Primary Care Provider Unavailabl e Encounter Details Date Type Department Care Team (Late st Contact Info) Description 04/06/2019 Transcribed Document [facility] [place] Family Medicine [facility] [place] [address] ProviderChano MD [address] [place] [id number] Social History Tobacco Use Types Packs/Day Years Used Date Smoking Tobacco: Never Assessed Comments Unknown Sex and Gender Information Value Date Recorded Sex Assigned at Not on file Legal Sex Female 2:07 PM CDT Gender Identity Not on file Sexual Orientation Not on file documented as of this encounter Miscellaneous Notes * Cerner Conversion Note - Chano ProviderMD - 04/06/2019 8:28 AM CDT DATE OF PROCEDURE:04/05/2019 NEUROSURGERY OPERATIVE REPORT SURGEON: Thom Luacs M.D. ANTENNA SPECIALIST: Ronel Michel PA-C. Scrubbed, present, assisted including [...] Trans: 04/06/2019 11:43:46 CC1: Thom Lucas MD documented in this encounter Plan of Treatment Not on file documented as of this encounter Visit Diagnoses Not on filedocumented in this encounter
--- OUTSIDE RECORDS SUMMARY | 2025-09-06 08:08 | XMS_ITS | Encounter Summary ---
Author Organization [employer] ([place], [place], [place], [place], [place]) Address [address] [place] [address] Care Team Providers Care Composite Boat Builder Name Role Phone Unavailable Primary Care Provider Unavailabl e Encounter Details Date Type Department Care Team (Late st Contact Info) Description 07/20/2019 Transcribed Document [facility] [place] [facility] [place] [address] ProviderChano MD [facility] [place] [phone] Social History Tobacco Use Types Packs/Day Years [...] Refill(s) Flonase 0.05 mg/inh nasal spray: 2 Mclean, Nasal, Daily, 16 Gram, 0 Refill(s) Lantus [...] Daily Flonase 0.05 mg/inh nasal spray 2 Mclean, Nasal, Daily gabapentin 300 mg oral capsule [...] list: Medical Wears glasses / SNOMED CT 062754163 / Confirmed Sleep apnea///risk / SNOMED CT 823721045 / Confirmed Colon polyps / SNOMED CT 877121256 / Confirmed Right leg pain / SNOMED CT 2668538000 / Confirmed Obesity / SNOMED CT 8894539770 / Confirmed Numbness and tingling//right leg / SNOMED CT 8846939260 / Confirmed Memory deficit///slow recall / SNOMED CT 6061857930 / Confirmed H/O ischemic left MCA stroke / SNOMED CT 7538007708 / Confirmed Hiatal hernia / SNOMED CT 624254283 / Complaint of Fibromyalgia / SNOMED CT 955682487 / Confirmed Lumbar disc disease / SNOMED CT 1058430335 / Confirmed Completely occulded L carotid / SNOMED CT 4264908924 / Confirmed Chest pain///cath negative / SNOMED CT 27270681 / Confirmed Cataract///beginning stage / SNOMED CT 964516080 / Confirmed Back pain / SNOMED CT 6494474749 / Confirmed At risk for sleep apnea / IMO 35563699 / Confirmed Pain//chronic / SNOMED CT 104675416 / Confirmed, Active Problems (24) Acid reflux [...] 11.3 (JUL 18) 11.5 (OCT 07) 11.5 (JUL 06) 12.6 (JUL 04) HCT 35.4 (JUL 13) 35.7 (JUL 07) 35.6 (JUL 06) 39.8 (JUL 04) Plt 277 (JUL 13) 263 (JUL 07) 230 (JUL 06) 267 (JUL 04) Na 143 (OCT 13) 142 (JUL 07) 140 (OCT 06) 142 (JUL 04) K 4.1 (JUL 13) 3.8 (JUL 07) 4.2 (JUL 11) 4.4 (JUL 09) Cl 106 (JUL 13) 104 (JUL 07) 104 (JUL 06) 106 (JUL 04) CO2 30 (JUL 13) 31 (JUL 12) 31 (JUL 11) 27 (JUL 04) BUN H 23 (JUL 18) 14 (JUL [...] to psychiatry unit placement if possible- pending documented in this encounter Plan of Treatment Not on file documented as of this encounter Visit Diagnoses Not on filedocumented in this encounter
--- OUTSIDE RECORDS SUMMARY | 2025-09-06 08:08 | XMS_ITS | Encounter Summary ---
Author Organization [employer] ([place], [place], [place], [place], [place]) Address [address] [place] [address] Care Team Providers Care Farm Hand Name Role Phone Unavailable Primary Care Provider Unavailabl e Encounter Details Date Type Department Care Team (Late st Contact Info) Description 04/06/2019 Transcribed Document [facility] [place] Family Medicine [address] [place] [address] ProviderChano MD [address] [place], [place] [phone] Social History Tobacco Use Types Packs/Day Years [...] On: 04/06/2019 9:49 EDT by ROSEY SANTILLAN, Winder Operator Primary Insurance Authorization Authorization and Policy Numbers : Insurance 1 Health Plan: [employer] HMO Policy Number: [id number] Authorization Number: [id number] Insurance Primary Name : [employer] [id number] Authorization Fax Number-Primary : [phone] Auth/Referral Phone Number-Primary : [phone] ext [phone] Auth/Referral Contact Name-Primary : Saulo Hanks Authorized Service Begin Date-Primary : 04/05/2019 EDT Authorized Service End Date-Primary : 04/05/2019 EDT Observation Authorization Nbr-Primary : [id number] Authorization Comments-Primary : per [employer] OBS auth# [id number] Historical Authorization Comments-Primary : No Authorization Comments Found ROSEY SANTILLAN, Winder Operator - 04/06/2019 9:49 EDT documented in this encounter Plan of Treatment Not on file documented as of this encounter Visit Diagnoses Not on filedocumented in this encounter
--- OUTSIDE RECORDS SUMMARY | 2025-09-06 08:08 | XMS_ITS | Encounter Summary ---
Author Organization [employer] ([place], [place], [place], [place], [place]) Address [address] [place] [address] Care Team Providers Care Commercial Sales Director Name Role Phone Unavailable Primary Care Provider Unavailabl e Encounter Details Date Type Department Care Team (Late st Contact Info) Description 04/06/2019 Transcribed Document [facility] [place] Family Medicine [address] [place] [address] ProviderChano MD [address] [place] [address] Social History Tobacco Use Types [...] Gatica MD - 04/06/2019 8:57 AM CDT [facility] [place] [address] LUDY ANTONIO Ileana :1950 Visit Time:04/05/2019 Your Visit Summary Your Care Team Admitting Physician - CATRACHITO THOMPSON, MD ONUR Attending Physician - CATRACHITO THOMPSON, MD NOUR Primary Care Physician - QUIRINO SENIOR (REF), -ARMEN Referring Physician - ONUR WINSTON MD, MD Your Diagnosis Lumbar disc herniation with radiculopathy [...] see appt cardAppointment has been made Where: [address] [place] [address] [place] [address]- Business (1) Medications What How Much When [...] (Flonase 0.05 mg/ inh nasal spray) 2 Mcgehee(s) Nasal Every Day fluticasone-salmeterol (Advair Diskus 250 [...] at home: Medicines ??? Take or apply hqnb-glr-khlkubx and prescription medicines only as told by [...] cannot use soap and water, use hand fur drummer. ? Change your bandage as told by [...] 07/01/2009 Document Revised: 02/27/2017 Document Reviewed: 03/11/2016 [employer] Patient Education ?? 2019 [employer] Fall Prevention in the Home Introduction [...] items that you use a lot in mvhd-df-rxhkr places. ??? If you need to reach something above you, use a strong step stool that has a grab bar. ??? Keep electrical cords out of the way. ??? Do notuse floor guatemalan or wax that makes floors slippery. If [...] Assistance with quitting is available by contacting 8-185-DHJXNOW. This is a free resource providing counseling, [...] ) Urine Bilirubin Dipstick: Negative Urine Specific [place]: 1.021 -- Normal range between ( 1.005 [...] was given the opportunity to ask questions. Patient/Communications Tower Climber Name: Patient/Communications Tower Climber Signature: Relationship to Patient: Clinician/Hospital Communications Tower Climber Signature: Date: documented in this encounter Plan of Treatment Not on file documented as of this encounter Visit Diagnoses Not on filedocumented in this encounter
--- OUTSIDE RECORDS SUMMARY | 2025-09-06 08:08 | XMS_ITS | Encounter Summary ---
Author Organization [employer] ([place], [place], [place], [place], [place]) Address [address] [place] [address] Care Team Providers Care Rn Ortho Name Role Phone Unavailable Primary Care Provider Unavailabl e Encounter Details Date Type Department Care Team (Late st Contact Info) Description 07/20/2019 Transcribed Document [facility] [place] [facility], [facility] [place] [address] ProviderChano MD [address] [place] [id number] Social History Tobacco Use Types Packs/Day Years [...] epithelial cells. Urine culture was positive for [id number] CFU/mL. CT of the L-spine was negative. [...] fluticasone nasal (Flonase) - 1 Puff, Nasal, Black, Daily, Routine miconazole topical (Desenex AF 2% [...] (OCT 06) 4.4 (OCT 04) Cl 106 (OCT 13) 104 (OCT 07) 104 (OCT 06) 106 (OCT 04) CO2 30 (OCT 13) 31 (OCT 07) 31 (OCT 06) 27 (OCT 04) BUN H 23 (JUL 13) 14 (OCT 07) 14 (OCT 06) 19 (OCT 04) Cr 1.00 (OCT 13) 0.90 (OCT 07) 0.90 (OCT 06) H 1.10 (OCT 04) Glu R H 213 (JUL 13) H 202 (OCT 07) H 248 (OCT 06) H 207 (JUL 04) Ca 9.4 (OCT 13) 9.0 (OCT 07) 9.0 (OCT 06) 9.4 (OCT 04) PT 9.9 (OCT 04) 10.1 (OCT 03) INR 0.9 (JUL 04) 0.9 (JUL 03) PTT 28.0 (JUL 03) AST 18 (OCT 07) 16 (OCT 04) 17 (OCT 03) ALT 25 (OCT 07) 23 (OCT 04) 21 (OCT 03) ALK P 56 (OCT 07) 69 (OCT 04) 63 [...] that's the culprit UM discussed with DC Atg Architect Stop the diflucan check labs in am Seems a bit better documented in this encounter Plan of Treatment Not on file documented as of this encounter Visit Diagnoses Not on filedocumented in this encounter
--- OUTSIDE RECORDS SUMMARY | 2025-09-06 08:08 | XMS_ITS | Encounter Summary ---
Author Organization [facility] [employer] [facility] ([place], [place], [place], [place], [place]) Address [address] [place] [address] Care Team Providers Care Ship Engines Operating Engineer Name Role Phone Unavailable Primary Care Provider Unavailabl e Encounter Details Date Type Department Care Team (Late st Contact Info) Description 07/20/2019 Transcribed Document [facility] [place] [address] [place] [address] ProviderChano MD [address], [place] [phone] Social History Tobacco Use Types Packs/Day Years [...]
--- OUTSIDE RECORDS SUMMARY | 2025-09-06 08:08 | XMS_ITS | Encounter Summary ---
Author Organization [employer] ([place], [place], [place], [place], [place]) Address [address] [place] [address] Care Team Providers Care Vessel Manager Name Role Phone Unavailable Primary Care Provider Unavailabl e Encounter Details Date Type Department Care Team (Late st Contact Info) Description 04/06/2019 Transcribed Document [facility] [place] [address] [place] [address] ProviderChano MD [address], [place] [phone] Social History Tobacco Use Types Packs/Day Years [...]
--- OUTSIDE RECORDS SUMMARY | 2025-09-06 08:08 | XMS_ITS | Encounter Summary ---
Author Organization [employer] ([place], [place], [place], [place], [place]) Address [address] [place] [address] Care Team Providers Care Billing Auditor Name Role Phone Unavailable Primary Care Provider Unavailabl e Encounter Details Date Type Department Care Team (Late st Contact Info) Description 07/19/2019 Transcribed Document [facility] [place] [facility] [place] [address] ProviderChano MD [facility] [place] [phone] Social History Tobacco Use Types Packs/Day Years [...] Refill(s) Flonase 0.05 mg/inh nasal spray: 2 [place], Nasal, Daily, 16 Gram, 0 Refill(s) Lantus [...] Daily Flonase 0.05 mg/inh nasal spray 2 [place], Nasal, Daily gabapentin 300 mg oral capsule [...] list: Medical Wears glasses / SNOMED CT 270269430 / Confirmed Sleep apnea///risk / SNOMED CT 122156151 / Confirmed Colon polyps / SNOMED CT 774304412 / Confirmed Right leg pain / SNOMED CT 9293174686 / Confirmed Obesity / SNOMED CT 3792001954 / Confirmed Numbness and tingling//right leg / SNOMED CT 5203502484 / Confirmed Memory deficit///slow recall / SNOMED CT 5944567724 / Confirmed H/O ischemic left MCA stroke / SNOMED CT 4628956355 / Confirmed Hiatal hernia / SNOMED CT 041116403 / Complaint of Fibromyalgia / SNOMED CT 687564426 / Confirmed Lumbar disc disease / SNOMED CT 1818993541 / Confirmed Completely occulded L carotid / SNOMED CT 4186454028 / Confirmed Chest pain///cath negative / SNOMED CT 84764753 / Confirmed Cataract///beginning stage / SNOMED CT 632613653 / Confirmed Back pain / SNOMED CT 6694441411 / Confirmed At risk for sleep apnea / IMO 82652802 / Confirmed Pain//chronic / SNOMED CT 461094286 / Confirmed, Active Problems (24) Acid reflux [...] (JUL 18 16:30) SpO2 L 90 (JUL 19 10:28) L 90 (JUL 19 10:28) 98 (JUL 18 16:30) General: Mild distress. Neck: Supple, Non-tender, No [...] 11) 7.9 (JUL 09) HB 11.3 (JUL 13) 11.5 (JUL 07) 11.5 (JUL 06) 12.6 (JUL 09) HCT 35.4 (JUL 13) 35.7 (JUL 07) 35.6 (JUL 06) 39.8 (JUL 04) Plt 277 (JUL 13) 263 (OCT 07) 230 (OCT 06) 267 (JUL 04) Na 143 (JUL 13) 142 (JUL 07) 140 (JUL 06) 142 (JUL 09) K 4.1 (JUL 13) 3.8 (JUL 07) 4.2 (JUL 06) 4.4 (JUL 09) Cl 106 (JUL 13) 104 (JUL 07) 104 (JUL 06) 106 (JUL 04) CO2 30 (JUL 18) 31 (JUL 12) 31 (JUL 11) 27 [...] try to psychiatry unit placement if possible Electronically signed by Oni Wheeler Conversion Phlebotomist Supervisor/Instructor Cerner at 01/23/2023 1:27 PM CDT documented in this encounter Plan of Treatment Not on file documented as of this encounter Visit Diagnoses Not on filedocumented in this encounter
--- OUTSIDE RECORDS SUMMARY | 2025-09-06 08:08 | XMS_ITS | Encounter Summary ---
Author Organization [employer] ([place], [place], [place], [place], [place]) Address [address] [place] [address] Care Team Providers Care Head Sampler Name Role Phone Unavailable Primary Care Provider Unavailabl e Encounter Details Date Type Department Care Team (Late st Contact Info) Description 04/06/2019 Transcribed Document [facility] [place] [address] [place] [address] ProviderChano MD [address] [phone] Social History Tobacco Use Types Packs/Day Years Used Date Smoking Tobacco: Never Assessed Comments Unknown Sex and Gender Information Value Date Recorded Sex Assigned at Not on file Legal Sex Female 2:07 PM CDT Gender Identity Not on file Sexual Orientation Not on file documented as of this encounter Miscellaneous Notes * [employer]ner Conversion Note - Historical ProviderMD - 04/06/2019 2:00 AM CDT Internet Systems Administrator Details Entered On: 04/06/2019 5:17 EDT Performed On: 04/06/2019 2:00 EDT by Eriberto Crawley Rn-Resource Order Details Order Detail : 0 IV Order Detail : 1 Oxygen Order Detail : 0 Nurse Collect Order Detail : 0 Lift/Transfer : Moderate assist Central Line Order Detail : No Room Service : Appropriate Arterial Line : No Eriberto Crawley Rn-Resource - 04/06/2019 5:16 EDT Electronically signed by Julian Wheeler Conversion Manufacturing Operations Manager Wade at 01/23/2023 1:41 PM CDT documented in this encounter Plan of Treatment Not on file documented as of this encounter Visit Diagnoses Not on filedocumented in this encounter
--- OUTSIDE RECORDS SUMMARY | 2025-09-06 08:08 | XMS_ITS | Encounter Summary ---
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 Spiritual patient centered care specialist offered prayer at 's request. Sabianism Preference : [employer] CARLIE HARRIS - 07/19/2019 17:42 EDT documented in this encounter Plan of Treatment Not on file documented as of this encounter Visit Diagnoses Not on filedocumented in this encounter
--- OUTSIDE RECORDS SUMMARY | 2025-09-06 08:08 | XMS_ITS ---
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 Name Role Phone ROMÁN THOMPSON, BRENDON Primary Care Provider [phone] Damien THOMPSON, Molly Win Unavailable [phone] Problems Includes: Active, inactive, and resolved Problems All Visits Onset Date Resolved Date Provider Condition S tatus Joint Pain Left Knee 02/14/2023 Shahbaz palumbo PA-C Active Last Documented On 3 1:10PM ; [facility], [facility] Joint Pain Hip Right 07/02/2018 Roque Calvillo MD Active Last Documented On 8 1:54PM ; [facility] Joint Pain Right Knee 01/09/2015 Molly kc MD Active Last Documented On 5 10:52AM ; [facility], [facility] Plan of Treatment Findings Encounter Date Patient screened for future fall risk: documentation of any fall with injury in past year Follow Up with Angeles Byrd PA-C 08/11/2025 Last Documented On 5 1:54PM ; [facility], [facility] Patient screened for future fall risk: documentation of any fall with injury in past year IN HOUSE REFERRAL with Saulo Brar MD 04/21/2025 Last Documented On 5 2:23PM ; [facility], [facility] Patient screened for future fall risk: documentation of any fall with injury in past year Follow Up with Blaine Pop PA-C 03/03/2025 Last Documented On 5 2:45PM ; [facility] Patient screened for future fall risk: documentation of any fall with injury in past year IN HOUSE REFERRAL with Sb Crouch MD 03/08/2024 Last Documented On 4 1:46PM ; [facility] Ordered weight loss diet Follow Up with Molly Quezada MD 01/09/2015 Last Documented On 5 8:34AM ; [facility] Instructions to patient Lose weight Last Documented On 5 1:33PM ; [facility] Lose weight Last Documented On 5 2:33PM ; [facility] Lose weight Last Documented On 4 2:26PM ; [facility] Lose weight Last Documented On 4 2:31PM ; [facility] Lose weight Last Documented On 4 4:03PM ; [facility] Lose weight Last Documented On 3 1:45PM ; [facility] Instructions for patient SEE PCP FOR BP AND WEIGHT Last Documented On 3 9:00AM ; [facility] Lose weight Last Documented On 3 9:00AM ; [facility] Instructions for patient SEE PCP FOR BP AND WEIGHT Last Documented On 8 2:59PM ; [facility] Lose weight Last Documented On 8 2:59PM ; [facility] Instructions for patient see pcp for weight management and bp Last Documented On 7 1:47PM ; [facility] Lose weight Last Documented On 7 1:46PM ; [facility] Instructions for patient see pcp for weight management Last Documented On 6 4:30PM ; [facility] Lose weight Last Documented On 6 4:30PM ; [facility] Instructions for patient see pcp for weight management Last Documented On 6 2:49PM ; [facility] Lose weight Last Documented On 6 2:49PM ; [facility] Instructions for patient see pcp for weight management Last Documented On 6 2:22PM ; [facility] Lose weight Last Documented On 6 2:21PM ; [facility] Lose weight Last Documented On 5 10:41AM ; [facility] Education and Decision Aids were provided during visit for: Education and counseling Last Documented On 7 1:46PM ; [facility] Self-management goals set fo r patient Last Documented On 7 1:46PM ; [facility] The patient will lose weight Last Documented On 7 1:46PM ; [facility] Education and counseling Last Documented On 6 4:30PM ; [facility] Self-management goals set fo r patient Last Documented On 6 4:30PM ; [facility] The patient will lose weight Last Documented On 6 4:30PM ; [facility] Education and counseling Last Documented On 6 2:49PM ; [facility] Self-management goals set fo r patient Last Documented On 6 2:49PM ; [facility] The patient will lose weight Last Documented On 6 2:49PM ; [facility] Education and counseling Last Documented On 6 2:21PM ; [facility] Self-management goals set fo r patient Last Documented On 6 2:21PM ; [facility] The patient will lose weight Last Documented On 6 2:21PM ; [facility] Education and counseling Last Documented On 5 10:41AM ; [facility] Self-management goals set fo r patient Last Documented On 5 10:41AM ; [facility] The patient will lose weight Last Documented On 5 10:41AM ; [facility] Assessments Includes: Assessments for all patient encounters Findings Encounter Date Overweight IN HOUSE REFERRAL with Saulo vazquez MD 04/21/2025 Last Documented On 5 2:23PM ; [facility] Overweight Follow Up with Blaine Tejeda 03/03/2025 Last Documented On 5 2:45PM ; [facility] Overweight IN HOUSE REFERRAL with Sb Crouch MD 03/08/2024 Last Documented On 4 1:46PM ; [facility] Overweight Follow Up with Blaine Tejeda 01/29/2024 Last Documented On 4 4:30PM ; [facility] Instructions Includes: Instructions for all patient encounters Instructions to patient Lose weight Last Documented On 5 1:33PM ; [facility] Lose weight Last Documented On 5 2:33PM ; [facility] Lose weight Last Documented On 4 2:26PM ; [facility] Lose weight Last Documented On 4 2:31PM ; [facility] Lose weight Last Documented On 4 4:03PM ; [facility] Lose weight Last Documented On 3 1:45PM ; [facility] Instructions for patient SEE PCP FOR BP AND WEIGHT Last Documented On 3 9:00AM ; [facility] Lose weight Last Documented On 3 9:00AM ; [facility] Instructions for patient SEE PCP FOR BP AND WEIGHT Last Documented On 8 2:59PM ; [facility] Lose weight Last Documented On 8 2:59PM ; [facility] Instructions for patient see pcp for weight management and bp Last Documented On 7 1:47PM ; [facility] Lose weight Last Documented On 7 1:46PM ; [facility] Instructions for patient see pcp for weight management Last Documented On 6 4:30PM ; [facility] Lose weight Last Documented On 6 4:30PM ; [facility] Instructions for patient see pcp for weight management Last Documented On 6 2:49PM ; [facility] Lose weight Last Documented On 6 2:49PM ; [facility] Instructions for patient see pcp for weight management Last Documented On 6 2:22PM ; [facility] Lose weight Last Documented On 6 2:21PM ; [facility] Lose weight Last Documented On 5 10:41AM ; [facility] Education and Decision Aids were provided during visit for: Education and counseling Last Documented On 7 1:46PM ; [facility] Self-management goals set fo r patient Last Documented On 7 1:46PM ; [facility] The patient will lose weight Last Documented On 7 1:46PM ; [facility] Education and counseling Last Documented On 6 4:30PM ; [facility] Self-management goals set fo r patient Last Documented On 6 4:30PM ; [facility] The patient will lose weight Last Documented On 6 4:30PM ; [facility] Education and counseling Last Documented On 6 2:49PM ; [facility] Self-management goals set fo r patient Last Documented On 6 2:49PM ; [facility] The patient will lose weight Last Documented On 6 2:49PM ; [facility] Education and counseling Last Documented On 6 2:21PM ; [facility] Self-management goals set fo r patient Last Documented On 6 2:21PM ; [facility] The patient will lose weight Last Documented On 6 2:21PM ; [facility] Education and counseling Last Documented On 5 10:41AM ; [facility] Self-management goals set fo r patient Last Documented On 5 10:41AM ; [facility] The patient will lose weight Last Documented On 10:41AM ; [facility], [facility] Medical Equipment - Implanted Devices Includes: Current and historical Devices No Medical Equipment Recorded Medications Includes: Current and historical Medications Current Medications (continue as prescribed) NIFEdipine ER 60 MG Oral Tab let Extended Release 24 Hour 08/10/2025 Provider: BRENDON FRANCE MD Diagnosis: Last Documented On 1:22PM By Joya Omer ; [facility], [facility] Chlorthalidone 25 MG Oral Tablet 08/10/2025 Provider : BRENDON FRANCE MD Diagnosis: Last Documented On 1:22PM By Joya Omer ; [facility], [facility] Myrbetriq 25 MG Oral Tablet Extended Release 24 Hour 08/09/2025 Provider: BRENDON FRANCE MD Diagnosis: Last Documented On 1:22PM By Joya Omer ; [facility], [facility] Insulin Aspart FlexPen 100 U NIT/ML Subcutaneous Solution Pen-injector 08/08/2025 Provider: Diagnosis: Last Documented On 1:22PM By Joya Omer ; [facility], [facility] oxyCODONE HCl 5 MG Oral Tablet 08/08/2025 Provider: BRENDON FRANCE MD Diagnosis: Last Documented On 1:22PM By Joya Omer ; [facility], [facility] RABEprazole Sodium 20 MG Ora l Tablet Delayed Release 08/08/2025 Provider: BRENDON FRANCE MD Diagnosis: Last Documented On 1:22PM By oJya Omer ; [facility], [facility] Embecta AutoShield Duo 30G X 5 MM Miscellaneous 08/08/2025 Provider: BRENDON FRANCE MD Diagnosis: Last Documented On 1:22PM By Joya Omer ; [facility], [facility] Insulin Aspart FlexPen 100 U NIT/ML Subcutaneous Solution Pen-injector 08/04/2025 Provider: Diagnosis: Last Documented On 1:22PM By Joya Omer ; [facility] Methocarbamol 500 MG Oral Tablet 08/04/2025 Provider : BRENDON FRANCE MD Diagnosis: Last Documented On 1:22PM By Joya Omer ; [facility], [facility] Clopidogrel Bisulfate 75 MG Oral Tablet 08/03/2025 P rovider: BRENDON FRANCE MD Diagnosis: Last Documented On 1:22PM By Joya Omer ; [facility], [facility] DULoxetine HCl 60 MG Oral Ca psule Delayed Release Particles 08/01/2025 Provider: BRENDON FRANCE MD Diagnosis: Last Documented On 1:22PM By Joya Omer ; [facility], [facility] Metoclopramide HCl 10 MG Oral Tablet Disintegrating Provider: Diagnosis: Last Documented On 2:26PM By Isa Casarez ; [facility], [facility] Tylenol 500 mg Oral Capsule 03/03/2025 Provider: Diagnosis: Last Documented On 2:27PM By Isa Casarez ; [facility], [facility] Insulin Lispro (0.5 Unit Kimberlee l) 100 UNIT/ML Subcutaneous Solution Pen-injector 03/03/2025 Provider: Diagnosis: Last Documented On 2:28PM By Isa Casarez ; [facility], [facility] Ondansetron HCl 4 MG Oral Tablet 03/03/2025 Provider : Diagnosis: Last Documented On 2:28PM By Isa Casarez ; [facility], [facility] MiraLax 17 GM Oral Packet 03/03/2025 Provider: Diagnosis: Last Documented On 2:28PM By Isa Casarez ; [facility], [facility] NIFEdipine 10 MG Oral Capsule 03/03/2025 Provider: Diagnosis: Last Documented On 2:28PM By Isa Casarez ; [facility], [facility] Isosorbide Mononitrate ER 30 MG Oral Tablet Extended Release 24 Hour 03/03/2025 Provider: Diagnosis: Last Documented On 2:29PM By Isa Casarez ; [facility], [facility] Chlorthalidone 15 MG Oral Tablet 03/03/2025 Provider : Diagnosis: Last Documented On 2:30PM By Isa Casarez ; [facility], [facility] Adult Centrum Multi Vitamin Oral Tablet 03/03/2025 P rovider: Diagnosis: Last Documented On 2:30PM By Isa Casarez ; [facility] Carvedilol 3.125 MG Oral Tablet 03/03/2025 Provider: Diagnosis: Last Documented On 2:30PM By Isa Casarez ; [facility], [facility] Movantik 12.5 MG Oral Tablet 03/03/2025 Provider: Diagnosis: Last Documented On 2:30PM By Isa Casarez ; [facility], [facility] Bisacodyl Laxative 10 MG Rectal Suppository 03/03/2025 Provider: Diagnosis: Last Documented On 2:31PM By Isa Casarez ; [facility], [facility] Asperflex Lidocaine 4% External Cream 03/03/2025 Pro vider: Diagnosis: Last Documented On 2:31PM By Isa Casarez ; [facility], [facility] Sennosides 15 MG Oral Tablet 03/03/2025 Provider: Diagnosis: Last Documented On 2:31PM By Isa Casarez ; [facility], [facility] Dulcolax 10 MG Rectal Suppository 03/03/2025 Provide r: Diagnosis: Last Documented On 2:32PM By Isa Casarez ; [facility], [facility] Naloxone HCl 3 MG/0.1ML Nasal Liquid 03/03/2025 Prov ider: Diagnosis: Last Documented On 2:32PM By Isa Casarez ; [facility], [facility] Simethicone 125 MG Oral Capsule 03/03/2025 Provider: Diagnosis: Last Documented On 2:32PM By Isa Casarez ; [facility], [facility] GNP Loratadine 10 MG Oral Tablet 03/03/2025 Provider : Diagnosis: Last Documented On 2:26PM By Isa Casarez ; [facility], [facility] Simethicone 80 MG Oral Tablet 03/03/2025 Provider: Diagnosis: Last Documented On 2:26PM By Isa Casarez ; [facility], [facility] Mirabegron ER 25 MG Oral Tablet Extended Release 24 Ho ur 03/03/2025 Provider: Diagnosis: Last Documented On 2:25PM By Isa Casarez ; [facility], [facility] Gabapentin 300 MG Oral Capsule 03/03/2025 Provider: Diagnosis: Last Documented On 2:25PM By Isa Casarez ; [facility] Past Medications on file Plavix 75 MG Oral Tablet 03/08/2024 - 08/11/2025 Provi jemima: Diagnosis: Last Documented On 1:24PM By Joya Omer ; [facility], [facility] oxyCODONE-Acetaminophen 7.5- 325 MG Oral Tablet 03/04/2024 - 08/11/2025 Provider: BRENODN FRANCE MD Diagnosis: Last Documented On 5 1:24PM By Joya Omer ; [facility], [facility] DULoxetine HCl 60 MG Oral Ca psule Delayed Release Particles 03/02/2024 - 08/11/2025 Provider: BRENDON ATKINSON MD Diagnosis: Last Documented On 1:23PM By Joya Omer ; [facility], [facility] Ezetimibe 10 MG Oral Tablet 02/24/2024 - 08/11/2025 Pr ovider: BRENDON FRANCE MD Diagnosis: Last Documented On 1:23PM By Joya Omer ; [facility], [facility] valACYclovir HCl 1 GM Oral Tablet 02/17/2024 - 024 Provider: BRENDON FRANCE MD Diagnosis: Last Documented On 4 2:08PM By Angelic Robertson ; [facility], [facility] [id number] Ethyl Esters 1 GM Oral Capsule 02/16/2024 - 08/11/2025 Provider: BRENDON Celeste Diagnosis: Last Documented On 5 1:23PM By Joya Omer ; [facility], [facility] Dexcom G7 Sensor Miscellaneous 02/12/2024 - 08/11/2025 Provider: BRENDON FRANCE MD Diagnosis: Last Documented On 1:23PM By Joya Omer ; [facility], [facility] Nystatin [id number] UNIT/GM Exte rnal Ointment 02/05/2024 - 03/08/2024 Provider: BRENDON Celeste Diagnosis: Last Documented On 4 2:08PM By Angelic Robertson ; [facility], [facility] Clopidogrel Bisulfate 75 MG Oral Tablet 01/26/2024 - 08/11/2025 Provider: BRENDON Celeste Diagnosis: Last Documented On 1:23PM By Joya Omer ; [facility] Gemtesa 75 MG Oral Tablet 01/24/2024 - 08/11/2025 Prov ider: BRENDON FRANCE MD Diagnosis: Last Documented On 1:23PM By Joya Omer ; [facility] Lantus SoloStar 100 UNIT/ML Subcutaneous Solution Pen-injector 01/14/2024 - 08/11/2025 Provider: BRENDON Celeste Diagnosis: Last Documented On 1:23PM By Joya Omer ; [facility] NovoLOG FlexPen 100 UNIT/ML Subcutaneous Solution Pen-injector 01/12/2024 - 08/11/2025 Provider: BRENDON Celeste Diagnosis: Last Documented On 1:23PM By Joya Omer ; [facility] RABEprazole Sodium 20 MG Ora l Tablet Delayed Release 01/09/2024 - 08/11/2025 Provider: QUIRINO SENIOR MD Diagnosis: Last Documented On 1:23PM By Joya Omer ; [facility] Metoprolol Succinate ER 25 M G Oral Tablet Extended Release 24 Hour 01/09/2024 - 08/11/2025 Provider: BRENDON Celeste Diagnosis: Last Documented On 1:23PM By Joya Omer ; [facility] Lisinopril 40 MG Oral Tablet 01/09/2024 - 08/11/2025 P rovider: BRENDON FRANCE MD Diagnosis: Last Documented On 1:23PM By Joya Omer ; [facility] Fluticasone Propionate 50 MC G/ACT Nasal Suspension 01/09/2024 - 08/11/2025 Provider: BRENDON Celeste Diagnosis: Last Documented On 1:23PM By Joya Omer ; [facility] HYDROcodone-Acetaminophen 5- 325 MG Oral Tablet 01/01/2024 - 03/08/2024 Provider: BRENDON FRANCE MD Diagnosis: Last Documented On 4 2:08PM By Angelic Robertson ; [facility] traMADol HCl 50 MG Oral Tablet 11/14/2022 - 03/08/2024 Provider: Diagnosis: Last Documented On 4 2:07PM By Angelic Robertson ; [facility] Plavix 300 MG Oral Tablet 11/14/2022 - 03/08/2024 Prov ider: Diagnosis: Last Documented On 4 2:07PM By Angelic Robertson ; [facility], [facility] NIFEdipine ER Osmotic Releas e 90 MG Oral Tablet Extended Release 24 Hour 11/14/2022 - 03/08/2024 Provider: Diagnosis: Last Documented On 4 2:07PM By Angelic Robertson ; [facility], [facility] Movantik 12.5 MG Oral Tablet 11/14/2022 - 03/08/2024 P rovider: Diagnosis: Last Documented On 4 2:07PM By Angelic Robertson ; [facility] Metoprolol Succinate ER 25 M G Oral Tablet Extended Release 24 Hour 11/14/2022 - 03/08/2024 Provider: Diagnosis: Last Documented On 4 2:07PM By Angelic Robertson ; [facility] Lisinopril 10 MG Oral Tablet 11/14/2022 - 03/08/2024 P rovider: Diagnosis: Last Documented On 4 2:07PM By Angelic Robertson ; [facility] Lasix 40 MG Oral Tablet 11/14/2022 - 03/08/2024 Provid er: Diagnosis: Last Documented On 4 2:07PM By Angelic Robertson ; [facility] Lantus 100 UNIT/ML Subcutaneous Solution 11/14/2022 - 03/08/2024 Provider: Diagnosis: Last Documented On 4 2:07PM By Angelic Robertson ; [facility] Klor-Con M20 20 MEQ Oral Tablet Extended Release 11/14/2022 - 03/08/2024 Provider: Diagnosis: Last Documented On 4 2:07PM By Angelic Robertson ; [facility] HYDROcodone-Acetaminophen 10 -300 MG/15ML Oral Solution 11/14/2022 - 03/08/2024 Provider: Diagnosis: Last Documented On 4 2:07PM By Angelic Robertson ; [facility] Aciphex 20 MG Oral Tablet Delayed Release 11/14/2022 - 03/08/2024 Provider: Diagnosis: Last Documented On 4 2:08PM By Angelic Robertson ; [facility] Cymbalta 60 MG Oral Capsule Delayed Release Particles 11/14/2022 - 03/08/2024 Provider: Diagnosis: Last Documented On 4 2:08PM By Angelic Robertson ; [facility] diazePAM 10 MG Rectal Gel 11/14/2022 - 03/08/2024 Prov ider: Diagnosis: Last Documented On 4 2:07PM By Angelic Robertson ; [facility], [facility] Ezetimibe-Atorvastatin 10-10 MG Oral Tablet 11/14/2022 - 03/08/2024 Provider: Diagnosis: Last Documented On 4 2:08PM By Angelic Robertson ; [facility], [facility] Fluticasone Furoate 27.5 MCG /SPRAY Nasal Suspension 11/14/2022 - 03/08/2024 Provider: Diagnosis: Last Documented On 4 2:07PM By Angelic Robertson ; [facility] Gemtesa 75 MG Oral Tablet 11/14/2022 - 03/08/2024 Prov ider: Diagnosis: Last Documented On 4 2:07PM By Angelic Robertson ; [facility] Lidocaine 5% External Patch 07/02/2018 - 11/14/2022 Pr ovider: Diagnosis: Last Documented On 3 9:47AM By Yodit Andrade ; [facility], [facility] Advair HFA 230-21MCG/ACT Inhalation Aerosol 07/02/2018 - 11/14/2022 Provider: Diagnosis: Last Documented On 3 9:47AM By Yodit Andrade ; [facility] Klor-Con M20 Oral Tablet Extended Release 07/02/2018 - 11/14/2022 Provider: Diagnosis: Last Documented On 3 9:47AM By Yodit Andrade ; [facility] Lasix 20MG Oral Tablet 07/02/2018 - 11/14/2022 Provide r: Diagnosis: Last Documented On 3 9:47AM By Yodit Andrade ; [facility] Vitamin D (Ergocalciferol) 5 0000 UNIT Capsule, conventional 01/09/2015 - 11/14/2022 Provider: Diagnosis: Last Documented On 3 9:46AM By Yodit Andrade ; [facility] Loratadine 10 MG Tablet 01/09/2015 - 11/14/2022 Provid er: Diagnosis: Last Documented On 3 9:46AM By Yodit Andrade ; [facility] Centrum Silver Tablet 01/09/2015 - 11/14/2022 Provider : Diagnosis: Last Documented On 3 9:47AM By Yodit Andrade ; [facility] Calcium Carbonate 500 (200 Ca) MG Wafer 01/09/2015 - 0 11/14/2022 Provider: Diagnosis: Last Documented On 3 9:47AM By Yodit Andrade ; [facility], [facility] Creon [id number] UNIT Capsule, de layed-release particles 01/09/2015 - 11/14/2022 Provider: Diagnosis: Last Documented On 3 9:46AM By Yodit Andrade ; [facility], [facility] Cymbalta 60 MG Capsule, delayed-release particle s 01/09/2015 - 11/14/2022 Provider: Diagnosis: Last Documented On 3 9:47AM By Yodit Andrade ; [facility], [facility] Plavix 75 MG Tablet 01/09/2015 - 11/14/2022 Provider: Diagnosis: Last Documented On 3 9:46AM By Yodit Andrade ; [facility] Ultram 50 MG Tablet 01/09/2015 - 11/14/2022 Provider: Diagnosis: Last Documented On 3 9:46AM By Yodit Andrade ; [facility] Oley 10-325 MG Tablet 01/09/2015 - 11/14/2022 Provide r: Diagnosis: Last Documented On 3 9:46AM By Yodit Andrade ; [facility] NovoLOG 100 UNIT/ML Solution 01/09/2015 - 11/14/2022 P rovider: Diagnosis: Last Documented On 3 9:46AM By Yodit Andrade ; [facility] Lantus 100 UNIT/ML Solution 01/09/2015 - 11/14/2022 Pr ovider: Diagnosis: Last Documented On 3 9:46AM By Yodit Andrade ; [facility], [facility] Fluticasone Propionate 50 MCG/ACT Suspension 5 - 11/14/2022 Provider: Diagnosis: Last Documented On 3 9:47AM By Yodit Andrade ; [facility], [facility] Aciphex 20 MG Tablet, enteric coated 01/09/2015 - 06/2023 Provider: Diagnosis: Last Documented On 3 9:47AM By Yodit Andrade ; [facility] Lisinopril 40 MG Tablet 01/09/2015 - 11/14/2022 Provid er: Diagnosis: Last Documented On 3 9:46AM By Yodit Andrade ; [facility] Metoprolol Tartrate 25 MG Tablet 01/09/2015 - 11/14/19 23 Provider: Diagnosis: Last Documented On 3 9:46AM By Yodit Andrade ; [facility] AmLODIPine Besylate 5 MG Tablet 01/09/2015 - 3 Provider: Diagnosis: Last Documented On 3 9:47AM By Yodit Andrade ; [facility] Pensaid Diclofenac Sodium 1.5% Xena w/w EX SOLN 02/28/2010 - 03/30/2010 Provider: Molly bradford MD Diagnosis: apply 10 drops to affected area Last Documented On 0 11:39AM By Silva 1 User ; [facility] Voltaren Gel 1% EX GEL 12/06/2009 - 01/05/2010 Provide r: Molly Quezada MD Diagnosis: apply 4 grams to affected area 4 times per day/a b Last Documented On 0 3:59PM By Silva 3 User ; [facility] Lortab 7.5-500 MG OR TABS 10/04/2009 - 10/09/2009 Prov ider: Molly Quezada MD Diagnosis: as needed for pain Last Documented On 9 8:43AM By Silva 2 User ; [facility] Arixtra 2.5 MG/0.5ML SC SOLN 06/21/2009 - 07/12/2009 P rovider: Molly Quezada MD Diagnosis: Last Documented On 9 2:34PM By Silva 1 User ; [facility] NOTE EX MISC 05/11/2009 - 05/12/2009 Provider: Ioana Quezada MD Diagnosis: faxed prior auth form back cristofer morocho at [phone]// Last Documented On 9 9:47AM By Sirena Huddleston ; [facility] Flector Patch 1.3% PTCH 05/10/2009 - 06/09/2009 Provid er: Molly Quezada MD Diagnosis: apply patch q12hrs Last Documented On 9 3:18PM By Silva 4 User ; [facility] Phenergan 25 MG OR TABS 04/21/2009 - 05/21/2009 Provid er: Molly Quezada MD Diagnosis: Last Documented On 9 11:58AM By Silva 4 User ; [facility] Medications Administered Includes: Administered Medications in patient's chart No Administered Medications Recorded Vital Signs Includes: Vital Signs from 09/06/2024 through 09/06/2025 Vital Name 04/21/2025 01:35P 03/03/2025 02: 33P Height (in) 64 64 Weight (lb) 270 270 Body Mass Index 46.3 46.3 Body Surface Area 2.2 2.2 Note: tm sr Last Documented: On 04/21/2025 1:35PM ; [facility] On 03/03/2025 2:33PM ; [facility] Results Includes: Results from 09/06/2024 through 09/06/2025 No Results Recorded For Specified Dates History of Present Illness History of Present Illness not supported for this document type No History of Present Illness Recorded Social History Description Last Updated No caffeine use 04/21/2025 Last Documented On 5 2:23PM ; [facility] Not a current smoker. 04/21/2025 Last Documented On 5 2:23PM ; [facility] Not using alcohol 04/21/2025 Last Documented On 5 2:23PM ; [facility] Not using drugs 04/21/2025 Last Documented On 5 2:23PM ; [facility] Recent change in diet 03/03/2025 Last Documented On 5 2:45PM ; [facility] Tobacco non-user 11/14/2022 Last Documented On 3 10:06AM ; [facility] No recent change in diet 02/19/2016 Last Documented On 6 1:05PM ; [facility] No tobacco use 02/19/2016 Last Documented On 6 1:05PM ; [facility] Not a current smoker 02/19/2016 Last Documented On 6 1:05PM ; [facility] Not exercising regularly 02/19/2016 Last Documented On 6 1:05PM ; [facility] Smoking status : Never smoker 02/19/2016 Last Documented On 6 1:05PM ; [facility] Procedures and Surgical History Includes: Procedures from 09/06/2024 through 09/06/2025 Procedures Code Diagnosis Performing Provider Service Location Service Date Injection, betamethasone acetate 6mg per cc and betamethason J0702 Unilateral primary osteoarthritis, left knee Saulo Brar MD [facility] 08/11/2025 Last Documented On 5 1:46PM ; [facility] DRAIN/INJECT, JOINT/BURSA (LEFT) Unilateral primary osteoarthritis, left knee Saulo Brar MD [facility] 08/11/2025 Last Documented On 5 1:46PM ; [facility] Triamcinolone/Kenalog, 10mg per cc [id number] Unilateral primary osteoarthritis, left knee Saulo Brar MD [facility] 04/21/2025 Last Documented On 5 2:53PM ; [facility] DRAIN/INJECT, JOINT/BURSA (LEFT) Unilateral primary osteoarthritis, left knee Saulo Brar MD [facility] 04/21/2025 Last Documented On 5 2:53PM ; [facility] X-RAY EXAM OF KNEE 3 VIEWS (LEFT) [id number] Unilateral primary osteoarthritis, left knee Blaine Pop PA-C [facility] 03/03/2025 Last Documented On 5 3:18PM ; [facility] Surgical History Last Updated History of back surgery 11/14/2022 Last Documented On 3 10:06AM ; [facility] History of History of Gallbladder 2022 Last Documented On 3 10:06AM ; [facility] History of appendectomy 02/19/2016 Last Documented On 6 1:05PM ; [facility] History of total hip replacement 016 Last Documented On 6 1:05PM ; [facility] Medical History Includes: Medical History in patient's chart Description Last Updated History of arthritis 11/14/2022 Last Documented On 3 10:06AM ; [facility] History of asthma 11/14/2022 Last Documented On 3 10:06AM ; [facility] History of Heartburn / Acid Reflux 11/14 Last Documented On 3 10:06AM ; [facility] History of History of Blood Clots 2022 Last Documented On 3 10:06AM ; [facility] History of Hypertension 11/14/2022 Last Documented On 3 10:06AM ; [facility] History of Stroke 11/14/2022 Last Documented On 3 10:06AM ; [facility] bilateral shoulder repair, A chilles Repair, right knee arthroscopy ~high cholesterol, heartburn, acid reflux 02/19/2016 Last Documented On 6 1:05PM ; [facility] History of acute myocardial infarction 0 02/19/2016 Last Documented On 6 1:05PM ; [facility] History of depression 02/19/2016 Last Documented On 6 1:05PM ; [facility] History of diabetes mellitus 02/19/2016 Last Documented On 6 1:05PM ; [facility] History of diverticulitis of colon 02/18 Last Documented On 6 1:05PM ; [facility] History of gastric ulcer 02/19/2016 Last Documented On 6 1:05PM ; [facility] Intermittent hypertension 02/19/2016 Last Documented On 6 1:05PM ; [facility] Family History Includes: Family History in patient's chart Description Last Updated Stroke / Seizures 03/08/2024 Last Documented On 4 1:46PM ; [facility] stroke/seizures 02/19/2016 Last Documented On 6 1:05PM ; [facility] Family history of diabetes mellitus 02/03 Last Documented On 6 1:05PM ; [facility] Family history of heart disease 02/19/20 16 Last Documented On 6 1:05PM ; [facility] Family history of hypertension 6 Last Documented On 6 1:05PM ; [facility] Family history of osteoporosis 6 Last Documented On 6 1:05PM ; [facility] Family history of thromboembolic disease 02/19/2016 Last Documented On 6 1:05PM ; [facility] Review of Systems Review of Systems not supported for this document type No Review of Systems Recorded Mental Status Description No anxiety Functional Status No Functional Status Recorded Physical Exam Physical Exam not supported for this document type No Physical Exam Recorded Allergies Includes: Active, inactive, and resolved Allergies Substance Type Reaction Onset Date Resolved Date Statu s OTHER Allergy ADVANDA 07/02/2018 Active Last Documented On 08/11/2025 1:22PM ; [facility] Note: CONGESTIVE HEART FAILURE NSAIDs Allergy HURTS STOMACH 01/09/2015 Activ e Last Documented On 08/11/2025 1:22PM ; [facility] Note: HAS ULCERS Ibuprofen Allergy Nausea, Vomiting 03/03/2025 Ac tive Last Documented On 1:22PM ; [facility] Encounters Includes: Encounters from 09/06/2024 through 09/06/2025 Encounter Provider Location Date Check-In Time Check-Out Time Diagnosis Follow Up Angeles Byrd PA-C [facility] 08/11/20 25 1:15PM 1:29PM IN HOUSE REFERRAL Saulo Brar MD [facility] 04/21/20 1:27PM 2:22PM Overweight Follow Up Blaine Pop PA-C [facility] 03/03/20 1:30PM 2:49PM Overweight Insurance Includes: Active Insurance Policies Plan Name Member ID Group # Subscriber Relationship Effect joaquim Dates 1 - [facility]/MED [facility] [id number] Adrienne Savage Self Clinical Notes Includes: Signed Clinical Notes starting from 09/19/2022 * Progress note Date Encounter Last Documented by 08/11/2025 Follow Up Last documented on 08/11/2025; 1:54 PM, Angeles Tejeda; [facility] Active Problems & Conditions - Joint Pain Hip Right - Joint Pain Left Knee - Joint Pain Right Knee Chief Complaint - left knee pain Referred Here Referred by PCP. History of Present Illness Adrienne Savage is a 74 year old female. - Allergy list reviewed - Problem list reviewed - Medication list reviewed - - Review of medications documented She presents today for left knee pain. She has known advanced degenerative changes of the left knee. Three months ago, she received a cortisone injection with improvement of her symptoms. She presents today for continued evaluation and treatment options. At this time, she is unable to consider arthroplasty due to her multiple medical comorbidities. No interval injury, trauma, or fall. She is nonambulatory and sits in a wheelchair. Current Medication - Adult Centrum Multi Vitamin Oral Tablet take as directed 0 days, 0 refills - Asperflex Lidocaine 4% External Cream take as directed 0 days, 0 refills - Bisacodyl Laxative 10 MG Rectal Suppository take as directed 0 days, 0 refills - Carvedilol 3.125 MG Oral Tablet take as directed 0 days, 0 refills - Chlorthalidone 15 MG Oral Tablet take as directed 0 days, 0 refills - Chlorthalidone 25 MG Oral Tablet 30 days, 0 refills - Clopidogrel Bisulfate 75 MG Oral Tablet 30 days, 0 refills - Dulcolax 10 MG Rectal Suppository take as directed 0 days, 0 refills - DULoxetine HCl 60 MG Oral Capsule Delayed Release Particles 30 days, 0 refills - Embecta AutoShield Duo 30G X 5 MM Miscellaneous 30G X 5 MM 25 days, 0 refills - Gabapentin 300 MG Oral Capsule take as directed 0 days, 0 refills - GNP Loratadine 10 MG Oral Tablet take as directed 0 days, 0 refills - Insulin Aspart FlexPen 100 UNIT/ML Subcutaneous Solution Pen-injector 3 days, 0 refills - Insulin Aspart FlexPen 100 UNIT/ML Subcutaneous Solution Pen-injector 3 days, 0 refills - Insulin Lispro (0.5 Unit Dial) 100 UNIT/ML Subcutaneous Solution Pen-injector take as directed 0 days, 0 refills - Isosorbide Mononitrate ER 30 MG Oral Tablet Extended Release 24 Hour take as directed 0 days, 0 refills - Methocarbamol 500 MG Oral Tablet 15 days, 0 refills - Metoclopramide HCl 10 MG Oral Tablet Disintegrating take as directed 0 days, 0 refills - Mirabegron ER 25 MG Oral Tablet Extended Release 24 Hour take as directed 0 days, 0 refills - MiraLax 17 GM Oral Packet take as directed 0 days, 0 refills - Movantik 12.5 MG Oral Tablet take as directed 0 days, 0 refills - Myrbetriq 25 MG Oral Tablet Extended Release 24 Hour 14 days, 0 refills - Naloxone HCl 3 MG/0.1ML Nasal Liquid take as directed 0 days, 0 refills - NIFEdipine 10 MG Oral Capsule take as directed 0 days, 0 refills - NIFEdipine ER 60 MG Oral Tablet Extended Release 24 Hour 30 days, 0 refills - Ondansetron HCl 4 MG Oral Tablet take as directed 0 days, 0 refills - oxyCODONE HCl 5 MG Oral Tablet 5 days, 0 refills - RABEprazole Sodium 20 MG Oral Tablet Delayed Release 30 days, 0 refills - Sennosides 15 MG Oral Tablet take as directed 0 days, 0 refills - Simethicone 125 MG Oral Capsule take as directed 0 days, 0 refills - Simethicone 80 MG Oral Tablet take as directed 0 days, 0 refills - Tylenol 500 mg Oral Capsule 500 mg take as directed 0 days, 0 refills Past Medical/Surgical History Reported: History of Stroke. Medical: Intermittent hypertension. Diagnoses: Acute myocardial infarction. Asthma History of Blood Clots Heartburn / Acid Reflux Hypertension. Gastric ulcer Diverticulitis of colon. Diabetes mellitus. Arthritis. Depressive disorder Bilateral shoulder repair, Achilles Repair, right knee arthroscopy high cholesterol, heartburn, acid reflux. Surgical: - Appendectomy - History of Gallbladder - Back surgery - Total hip replacement Social History Not a current smoker. Current diet: No recent change in diet. Recent change in diet. Behavioral: Tobacco non-user. Not a current smoker. Caffeine: No caffeine use. Tobacco use: No tobacco use and smoking status: Never smoker. Alcohol: Not using alcohol. Drug Use: Not using drugs. Habits: Not exercising regularly. Allergies - Ibuprofen Reaction: Nausea, Vomiting - NSAIDs Reaction: HURTS STOMACH - OTHER Reaction: ADVANDA Family History Heart disease Stroke / Seizures Stroke/seizures Systemic hypertension Thromboembolic disease Osteoporosis Diabetes mellitus Review Of Systems Systemic: Not feeling tired, no recent weight loss, and no recent weight gain. Head: No headache and no sinus pain. Eyes: No vision problems, no Cataracts, no Glasses/Contacts, and no Glaucoma. Otolaryngeal: No hearing loss and no tinnitus. Cardiovascular: No chest pain or discomfort, no palpitations, no Hypertension, and no High Cholesterol. Pulmonary: No daytime asthma symptoms and no chronic cough. No wheezing. Gastrointestinal: No heartburn and no abdominal pain. No Indigestion, no Peptic Ulcer, no GI Stomach Bleed, no Ulcers, and no Acid Reflux. Endocrine: No hot flashes, no muscle weakness, no Diabetes, no Hypothyroid, and no Hyperthyroid. Hematologic: No easy bleeding, no tendency for easy bruising, and no Anemia. Musculoskeletal: No Arthritis and no lower back pain. No soft tissue swelling and no localized joint pain. Neurological: No dizziness, no convulsions, and no numbness. Psychological: No anxiety, no emotional lability, no depression, and no insomnia. Not crying for no reason. Skin: No dry skin. No Ulcers, no Scars, and no rash. Allergic and Immunologic: No complaint of seasonal allergic reaction. Physical Findings They are well-dressed and well groomed. They have normal mood and affect. They are ambulating without any assistive devices at today's appointment. Skin is intact. There is no increased redness or heat. No effusion. The knee has full extension and 80- of flexion. Normal sensation. Normal neurovascular status. Tests Nothing new. Previous Tests Imaging: X-Ray: X-ray. Plan - Patient screened for future fall risk: documentation of any fall with injury in past year Fall Risk Assessment: This patient has been identified as a fall risk. Balance/gait along with postural blood pressure, vision and home fall hazards have been assessed. Medications have been reviewed, and recommendations made with regard to contributing factors for future falls. Plan of care: Consideration of vitamin D supplementation along with balance and strength training with consideration for formal physical therapy has been discussed with the patient. We discussed treatment options including a left knee cortisone injection as this worked well for her 3 months ago. She has no absolute contraindications. She would like to proceed. The risks of the procedure were explained and verbally knowledge by the patient. Verbal consent was obtained. The knee was prepped with alcohol. The knee was then put in a flexed position in the intercondylar notch was palpated. With ethyl chloride spray used as topical anesthesia at the site of injection, the needle was gently introduced toward interchondral notch to get entering into the synovial cavity. Upon entering into the synovial cavity, 2mL of lidocaine and 1 mL of betamethasone was injected. The needle was carefully withdrawn and a Band-Aid was applied. The knee was then placed through a range of motion. She tolerated the procedure well. We will request approval for left knee viscosupplementation and follow up with her after this approval has been granted. She and her family are comfortable with this plan and will call our office with any questions or concerns. Notes This dictation was done with voice recognition software and may contain errors and omissions. Care Team - BRENDON FRANCE MD - LEADERSHIP DEVELOPMENT CONSULTANT * Progress note Date Encounter Last Documented by 04/21/2025 IN HOUSE REFERRAL Last documente d on 04/27/2025; 2:23 PM, Saulo Brar MD; [facility] Active Problems & Conditions - Joint Pain in the Left Knee - Joint Pain in the Right Hip - Joint Pain in the Right Knee Chief Complaint The Chief Complaint is: Left knee pain. Referred Here Referred by PCP. History of Present Illness Adrienne Savage is a 74 year old female. - Allergy list reviewed - Problem list reviewed - Medication list reviewed - Review of medications documented Presents for evaluation of left knee pain. Been going on for years. Located all over the knee. Described as achy and sharp. Worse with standing walking stairs. She has been taking oxycodone. She has tried gel shots and cortisone shots. She has a history of multiple strokes. Multiple medical comorbidities. She has not ambulated in quite some time. She lives in a nursing facility. She uses a wheelchair. She was admitted to for a month last fall. Current Medication - Adult Centrum Multi Vitamin Oral Tablet take as directed 0 days, 0 refills - Asperflex Lidocaine 4% External Cream take as directed 0 days, 0 refills - Bisacodyl Laxative 10 MG Rectal Suppository take as directed 0 days, 0 refills - Carvedilol 3.125 MG Oral Tablet take as directed 0 days, 0 refills - Chlorthalidone 15 MG Oral Tablet take as directed 0 days, 0 refills - Clopidogrel Bisulfate 75 MG Oral Tablet 90 days, 0 refills - Dexcom G7 Sensor Miscellaneous 90 days, 0 refills - Dulcolax 10 MG Rectal Suppository take as directed 0 days, 0 refills - DULoxetine HCl 60 MG Oral Capsule Delayed Release Particles 30 days, 0 refills - Ezetimibe 10 MG Oral Tablet 90 days, 0 refills - Fluticasone Propionate 50 MCG/ACT Nasal Suspension 90 days, 0 refills - Gabapentin 300 MG Oral Capsule take as directed 0 days, 0 refills - Gemtesa 75 MG Oral Tablet 90 days, 0 refills - GNP Loratadine 10 MG Oral Tablet take as directed 0 days, 0 refills - Insulin Lispro (0.5 Unit Dial) 100 UNIT/ML Subcutaneous Solution Pen-injector take as directed 0 days, 0 refills - Isosorbide Mononitrate ER 30 MG Oral Tablet Extended Release 24 Hour take as directed 0 days, 0 refills - Lantus SoloStar 100 UNIT/ML Subcutaneous Solution Pen-injector 88 days, 0 refills - Lisinopril 40 MG Oral Tablet 90 days, 0 refills - Metoclopramide HCl 10 MG Oral Tablet Disintegrating take as directed 0 days, 0 refills - Metoprolol Succinate ER 25 MG Oral Tablet Extended Release 24 Hour 90 days, 0 refills - Mirabegron ER 25 MG Oral Tablet Extended Release 24 Hour take as directed 0 days, 0 refills - MiraLax 17 GM Oral Packet take as directed 0 days, 0 refills - Movantik 12.5 MG Oral Tablet take as directed 0 days, 0 refills - Naloxone HCl 3 MG/0.1ML Nasal Liquid take as directed 0 days, 0 refills - NIFEdipine 10 MG Oral Capsule take as directed 0 days, 0 refills - NovoLOG FlexPen 100 UNIT/ML Subcutaneous Solution Pen-injector 90 days, 0 refills - [id number] Ethyl Esters 1 GM Oral Capsule 90 days, 0 refills - Ondansetron HCl 4 MG Oral Tablet take as directed 0 days, 0 refills - oxyCODONE-Acetaminophen 7.5-325 MG Oral Tablet 7 days, 0 refills - Plavix 75 MG Oral Tablet 0 days, 0 refills - RABEprazole Sodium 20 MG Oral Tablet Delayed Release 90 days, 0 refills - Sennosides 15 MG Oral Tablet take as directed 0 days, 0 refills - Simethicone 125 MG Oral Capsule take as directed 0 days, 0 refills - Simethicone 80 MG Oral Tablet take as directed 0 days, 0 refills - Tylenol 500 mg Oral Capsule 500 mg take as directed 0 days, 0 refills Past Medical/Surgical History Reported: History of Stroke. Medical: Intermittent hypertension. Diagnoses: Acute myocardial infarction. Asthma History of Blood Clots Heartburn / Acid Reflux Hypertension. Gastric ulcer Diverticulitis of colon. Diabetes mellitus. Arthritis. Depression Bilateral shoulder repair, Achilles Repair, right knee arthroscopy high cholesterol, heartburn, acid reflux. Surgical: - Appendectomy - History of Gallbladder - Back surgery - Total hip replacement Social History Not a current smoker. Current diet: Recent change in diet. Behavioral: Tobacco non-user. Caffeine: No caffeine use. Alcohol: Not using alcohol. Drug Use: Not using drugs. Habits: Not exercising regularly. Allergies - Ibuprofen Reaction: Nausea, Vomiting - NSAIDs Reaction: HURTS STOMACH - OTHER Reaction: ADVANDA Family History Heart disease Stroke / Seizures Stroke/seizures Systemic hypertension Thromboembolic disease Osteoporosis Diabetes mellitus Review Of Systems Systemic: Not feeling tired, no recent weight loss, and no recent weight gain. Head: No headache and no sinus pain. Eyes: No vision problems, no Cataracts, no Glasses/Contacts, and no Glaucoma. Otolaryngeal: No hearing loss and no tinnitus. Cardiovascular: No chest pain or discomfort, no palpitations, no Hypertension, and no High Cholesterol. Pulmonary: No daytime asthma symptoms and no chronic cough. No wheezing. Gastrointestinal: No heartburn and no abdominal pain. No Indigestion, no Peptic Ulcer, no GI Stomach Bleed, no Ulcers, and no Acid Reflux. Endocrine: No hot flashes, no muscle weakness, no Diabetes, no Hypothyroid, and no Hyperthyroid. Hematologic: No easy bleeding, no tendency for easy bruising, and no Anemia. Musculoskeletal: No Arthritis and no lower back pain. No soft tissue swelling and no localized joint pain. Neurological: No dizziness, no convulsions, and no numbness. Psychological: No anxiety, no emotional lability, no depression, and no insomnia. Not crying for no reason. Skin: No dry skin. No Ulcers, no Scars, and no rash. Allergic and Immunologic: No complaint of seasonal allergic reaction. Physical Findings - Vitals taken 04/21/2025 01:35 pm tm Height 64 in Weight 270 lbs Body Mass Index 46.3 kg/m2 Body Surface Area 2.2 m2 General: The patient is alert and oriented in no distress. Respiratory: Nonlabored breathing in the exam room Cardiac: Extremities are warm and well-perfused. Skin: Skin appears clean dry and intact. Musculoskeletal exam: Patient is in a wheelchair Exam of the BILATERAL HIPS shows no pain with internal or external rotation. No pain with hip flexion and adduction. Exam of the LEFT knee shows skin is clean, dry, and intact. Tender to palpation over the medial and lateral joint lines. No effusion. The range of motion is 0 to 95 degrees with crepitus. The knee is stable to varus and valgus stress in extension. Negative anterior and posterior drawer. No pain with patellar grind. Exam of the RIGHT knee shows skin is clean, dry, and intact. Nontender to palpation over the medial and lateral joint lines. The range of motion is 0 to 125 degrees. The knee is stable to varus and valgus stress in extension. Negative anterior and posterior drawer. No pain with patellar grind. Neurovascular exam of the bilateral lower extremities demonstrates strength to be 5 out of 5 ankle dorsiflexion/plantarflexion, and great toe dorsiflexion/plantarflexion. Pulses arePalpable in dorsalis pedis bilaterally. I reviewed her prior three-view x-ray of the left knee demonstrates severe prmf-hd-[id number] arthritis in the medial compartment. Varus deformity. Surrounding osteophytes. Assessment - Overweight Previous Tests Imaging: X-Ray: X-ray. Counseling/Education Tobacco non-user. use of tobacco assessment performed. - Lose weight Plan Patient screened for future fall risk: documentation of any fall with injury in past year. Fall Risk Assessment: This patient has been identified as a fall risk. Balance/gait along with postural blood pressure, vision and home fall hazards have been assessed. Medications have been reviewed, and recommendations made with regard to contributing factors for future falls. Plan of care: Consideration of vitamin D supplementation along with balance and strength training with consideration for formal physical therapy has been discussed with the patient. Notes This dictation was done with voice recognition software and may contain errors and omissions. Care Team - BRENDON FRANCE MD - LEADERSHIP DEVELOPMENT CONSULTANT User Defined 5 Severe left knee osteoarthritis Discussed that her many medical comorbidities place her at high risk for surgery. Right now she is nonambulatory. I encouraged her to continue work with therapy and try to get stronger. Happy to see her back if she would like another shot at about 3 months. Injection note We discussed the indications, risks, benefits, alternatives, and recovery in detail to a left knee steroid injection. Risks discussed include but are not limited to bleeding, infection (possibly requiring surgery to treat), pain, allergic reaction, and failure to relieve pain. The patient gave verbal and written consent, and wished to proceed. Procedure: The the skin around the superior-lateral aspect of the patella was prepped with alcohol followed by Betadine and anesthetized with 2cc of 1% lidocaine. The area was then reprepped. Using sterile procedure, 40mg of kenalog along with 4cc of 0.25% marcaine was injected into the knee joint. The needle was removed, the skin was cleansed with alcohol and a Band-Aid was applied. The knee was taken through a range of motion. The patient tolerated to procedure well. * Progress note Date Encounter Last Documented by 03/03/2025 Follow Up Last documented on 03/03/2025; 2:45 PM, Blaine Pop PA-C; [facility], [facility] Active Problems & Conditions - Joint Pain in the Left Knee - Joint Pain in the Right Hip - Joint Pain in the Right Knee Chief Complaint The Chief Complaint is: Left knee pain. Referred Here Referred by PCP. History of Present Illness Adrienne Savage is a 74 year old female. - Allergy list reviewed - Problem list reviewed - Medication list reviewed - Review of medications documented Current Medication - Adult Centrum Multi Vitamin Oral Tablet take as directed 0 days, 0 refills - Asperflex Lidocaine 4% External Cream take as directed 0 days, 0 refills - Bisacodyl Laxative 10 MG Rectal Suppository take as directed 0 days, 0 refills - Carvedilol 3.125 MG Oral Tablet take as directed 0 days, 0 refills - Chlorthalidone 15 MG Oral Tablet take as directed 0 days, 0 refills - Clopidogrel Bisulfate 75 MG Oral Tablet 90 days, 0 refills - Dexcom G7 Sensor Miscellaneous 90 days, 0 refills - Dulcolax 10 MG Rectal Suppository take as directed 0 days, 0 refills - DULoxetine HCl 60 MG Oral Capsule Delayed Release Particles 30 days, 0 refills - Ezetimibe 10 MG Oral Tablet 90 days, 0 refills - Fluticasone Propionate 50 MCG/ACT Nasal Suspension 90 days, 0 refills - Gabapentin 300 MG Oral Capsule take as directed 0 days, 0 refills - Gemtesa 75 MG Oral Tablet 90 days, 0 refills - GNP Loratadine 10 MG Oral Tablet take as directed 0 days, 0 refills - Insulin Lispro (0.5 Unit Dial) 100 UNIT/ML Subcutaneous Solution Pen-injector take as directed 0 days, 0 refills - Isosorbide Mononitrate ER 30 MG Oral Tablet Extended Release 24 Hour take as directed 0 days, 0 refills - Lantus SoloStar 100 UNIT/ML Subcutaneous Solution Pen-injector 88 days, 0 refills - Lisinopril 40 MG Oral Tablet 90 days, 0 refills - Metoclopramide HCl 10 MG Oral Tablet Disintegrating take as directed 0 days, 0 refills - Metoprolol Succinate ER 25 MG Oral Tablet Extended Release 24 Hour 90 days, 0 refills - Mirabegron ER 25 MG Oral Tablet Extended Release 24 Hour take as directed 0 days, 0 refills - MiraLax 17 GM Oral Packet take as directed 0 days, 0 refills - Movantik 12.5 MG Oral Tablet take as directed 0 days, 0 refills - Naloxone HCl 3 MG/0.1ML Nasal Liquid take as directed 0 days, 0 refills - NIFEdipine 10 MG Oral Capsule take as directed 0 days, 0 refills - NovoLOG FlexPen 100 UNIT/ML Subcutaneous Solution Pen-injector 90 days, 0 refills - Knhld-7-aohn Ethyl Esters 1 GM Oral Capsule 90 days, 0 refills - Ondansetron HCl 4 MG Oral Tablet take as directed 0 days, 0 refills - oxyCODONE-Acetaminophen 7.5-325 MG Oral Tablet 7 days, 0 refills - Plavix 75 MG Oral Tablet 0 days, 0 refills - RABEprazole Sodium 20 MG Oral Tablet Delayed Release 90 days, 0 refills - Sennosides 15 MG Oral Tablet take as directed 0 days, 0 refills - Simethicone 125 MG Oral Capsule take as directed 0 days, 0 refills - Simethicone 80 MG Oral Tablet take as directed 0 days, 0 refills - Tylenol 500 mg Oral Capsule 500 mg take as directed 0 days, 0 refills Past Medical/Surgical History Reported: History of Stroke. Medical: Intermittent hypertension. Diagnoses: Acute myocardial infarction. Asthma History of Blood Clots Heartburn / Acid Reflux Hypertension. Gastric ulcer Diverticulitis of colon. Diabetes mellitus. Arthritis. Depression Bilateral shoulder repair, Achilles Repair, right knee arthroscopy high cholesterol, heartburn, acid reflux. Surgical: - Appendectomy - History of Gallbladder - Back surgery - Total hip replacement Social History Not a current smoker. Current diet: Recent change in diet. Behavioral: Tobacco non-user. Caffeine: No caffeine use. Alcohol: Not using alcohol. Drug Use: Not using drugs. Habits: Not exercising regularly. Allergies - Ibuprofen Reaction: Nausea, Vomiting - NSAIDs Reaction: HURTS STOMACH - OTHER Reaction: ADVANDA Family History Heart disease Stroke / Seizures Stroke/seizures Systemic hypertension Thromboembolic disease Osteoporosis Diabetes mellitus Review Of Systems Systemic: Not feeling tired, no recent weight loss, and no recent weight gain. Head: No headache and no sinus pain. Eyes: No vision problems, no Cataracts, no Glasses/Contacts, and no Glaucoma. Otolaryngeal: No hearing loss and no tinnitus. Cardiovascular: No chest pain or discomfort, no palpitations, no Hypertension, and no High Cholesterol. Pulmonary: No daytime asthma symptoms and no chronic cough. No wheezing. Gastrointestinal: No heartburn and no abdominal pain. No Indigestion, no Peptic Ulcer, no GI Stomach Bleed, no Ulcers, and no Acid Reflux. Endocrine: No hot flashes, no muscle weakness, no Diabetes, no Hypothyroid, and no Hyperthyroid. Hematologic: No easy bleeding, no tendency for easy bruising, and no Anemia. Musculoskeletal: No Arthritis and no lower back pain. No soft tissue swelling and no localized joint pain. Neurological: No dizziness, no convulsions, and no numbness. Psychological: No anxiety, no emotional lability, no depression, and no insomnia. Not crying for no reason. Skin: No dry skin. No Ulcers, no Scars, and no rash. Allergic and Immunologic: No complaint of seasonal allergic reaction. Physical Findings - Vitals taken 03/03/2025 02:33 pm sr Height 64 in Weight 270 lbs Body Mass Index 46.3 kg/m2 Body Surface Area 2.2 m2 Patient alert and oriented x3 Morbidly obese Presents in wheelchair, unable to stand or ambulate Left lower extremity exam Skin clean, dry and intact Mild knee swelling, minimal effusion Knee flexion contracture 5 degree Knee Flexion 90- in chair Severe diffuse tenderness throughout the knee Fires TA gastroc, quadriceps Subjective numbness tingling of the left foot Palpable pulses DP/PT Tests Three-view x-ray left knee taken today demonstrates [id number] DJD Assessment - Overweight Severe left knee DJD oyxl-xu-haeg, medically complex Previous Tests Imaging: X-Ray: X-ray. Counseling/Education Tobacco non-user. use of tobacco assessment performed. - Lose weight Plan Patient screened for future fall risk: documentation of any fall with injury in past year. Fall Risk Assessment: This patient has been identified as a fall risk. Balance/gait along with postural blood pressure, vision and home fall hazards have been assessed. Medications have been reviewed, and recommendations made with regard to contributing factors for future falls. Plan of care: Consideration of vitamin D supplementation along with balance and strength training with consideration for formal physical therapy has been discussed with the patient. Patient presents today for evaluation of left knee, we discussed she has severe awcp-hm-tcas DJD. Has been unable to stand on her own, or ambulate in the last 5 months. She has been usp bound for the last 9-10 months status post spine surgery, difficulty with the anesthesia afterwards. Failed physical therapy efforts towards standing and ambulating. We reviewed that she has complex medical history requiring surgery if possible at a hospital setting with ability to discharge to inpatient rehab. Knee replacement in his patient may be a palliative efforts. Recommend referral to Dr. Esquivel for consultation 2nd opinion of left total knee arthroplasty for this complex patient. Notes This dictation was done with voice recognition software and may contain errors and omissions. Care Team - BRENDON FRANCE MD - LEADERSHIP DEVELOPMENT CONSULTANT
--- OUTSIDE RECORDS SUMMARY | 2025-09-06 08:08 | XMS_ITS | Encounter Summary ---
Author Organization [employer] ([place], [place], [place], [place], [place]) Address [address] [place] [address] Care Team Providers Care Oil Sprayer Name Role Phone Unavailable Primary Care Provider Unavailabl e Encounter Details Date Type Department Care Team (Late st Contact Info) Description 07/19/2019 Transcribed Document [facility] [place] [facility] [place] [address] Chano Gatica MD [address], [place] [id number] Social History Tobacco Use Types Packs/Day Years Used Date Smoking Tobacco: Never Assessed Comments Unknown Sex and Gender Information Value Date Recorded Sex Assigned at Not on file Legal Sex Female 2:07 PM CDT Gender Identity Not on file Sexual Orientation Not on file documented as of this encounter Miscellaneous Notes * Cerner Conversion Note - Historical MD En - 07/19/2019 1:57 PM CDT Behavioral Health Assessment Note Entered On: 07/19/2019 14:09 EDT Performed On: 07/19/2019 13:57 EDT by RODOLFO TOUSSAINT, APPLICATIONS SYSTEMS ANALYST I Behavioral Health Assessment Note Reason For Behavioral Health Assessment : Pt is a 68 year old female at [facility] presenting with labile mood and confusion since surgery on 07/10/19. Pt was admitted to hospital on 07/09/19 and required back surgery on 07/10/19. Pt has called the police several times while inpt at [facility]. Pt has called the family during the [...] Health Notes : Reviewed clinical information with [facility] telephone interviewer psychiatrist Dr. Solano recommends inpt debbie psychatric facility for medication mangement and mood instablity. Pt is not appropriate for inpt treatment at [facility]. Pt denies any suicidal ideation and homicidal ideation. Pt could benefit from evaluation for medications and mood instablity. Family and patient agreeable to referrals to debbie-psych facilities for consideration for inpt treatment. RODOLFO TOUSSAINT, APPLICATIONS SYSTEMS ANALYST I - 07/19/2019 13:57 EDT Social History (As Of: 07/19/2019 14:09:56 EDT) Tobacco: Use in Last 12 Months: Cigarettes. Smoking Status Former smoker. Years of Use: 1. Packs/Tins Daily: 0.5. Last Used: teenager. (Last Updated: 06/24/2013 07:28:56 EDT by MIGEL GARCIA, RN) Alcohol: Use in Last 12 Months: No. (Last Updated: 06/24/2013 07:29:08 EDT by IMGEL GARCIA, RN) Substance Abuse: Drug Use Hx: No. (Last Updated: 06/24/2013 07:29:03 EDT by MIGEL GARCIA, RN) Home/Environment: Lives with Spouse. Living situation: Home with assistance. 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 (Last Updated: 07/17/2014 00:15:13 EDT by KATIE TRINIDAD, ED Nurse) documented in this encounter Plan of Treatment Not on file documented as of this encounter Visit Diagnoses Not on filedocumented in this encounter
--- OUTSIDE RECORDS SUMMARY | 2025-09-06 08:08 | XMS_ITS | Encounter Summary ---
Author Organization [employer] ([place], [place], [place], [place], [place]) Address [address] [place] [address] Care Team Providers Care Communications Lead Name Role Phone Unavailable Primary Care Provider Unavailabl e Encounter Details Date Type Department Care Team (Late st Contact Info) Description 04/06/2019 Transcribed Document [facility] [place] Family Medicine [address] [place] [address] ProviderChano MD [address], [place] [id number] Social History Tobacco Use Types Packs/Day Years [...] Plan: [employer] Policy Number: [id number] Authorization Number: [id number] Insurance Primary Name : [employer] [id number] Authorization Fax Number-Primary : [phone] Auth/Referral Phone Number-Primary : [phone] ext [phone] Auth/Referral Contact Name-Primary : Saulodoc Hanks Authorized Service Begin Date-Primary : 04/05/2019 EDT Authorized Service End Date-Primary : 04/05/2019 EDT Observation Authorization Nbr-Primary : [id number] Historical Authorization Comments-Primary : Comment 1: per [employer] auth# [id number] (ROSEY SANTILLAN, Accounts Supervisor 04/06/2019 09:49) Mary Jackson Rn-Utilization Review - 04/06/2019 10:28 EDT Electronically signed by Summer [facility] Conversion Nut Sorter Cerner at 01/23/2023 1:14 PM CDT documented in this encounter Plan of Treatment Not on file documented as of this encounter Visit Diagnoses Not on filedocumented in this encounter
--- OUTSIDE RECORDS SUMMARY | 2025-09-06 08:08 | XMS_ITS | Encounter Summary ---
Author Organization [employer] ([place], [place], [place], [place], [place]) Address [address] [place] [address] Care Team Providers Care Livestock Yard Supervisor Name Role Phone Unavailable Primary Care Provider Unavailabl e Encounter Details Date Type Department Care Team (Late st Contact Info) Description 07/20/2019 Transcribed Document [facility] [place] [facility] [place] [address] ProviderChano MD [address], [place] [id number] Social History Tobacco Use Types Packs/Day Years Used Date Smoking Tobacco: Never Assessed Comments Unknown Sex and Gender Information Value Date Recorded Sex Assigned at Not on file Legal Sex Female 2:07 PM CDT Gender Identity Not on file Sexual Orientation Not on file documented as of this encounter Miscellaneous Notes * Cerner Conversion Note - Historical ProviderMD - 07/20/2019 11:16 AM CDT Care Management Assessment/Plan Entered On: 07/20/2019 11:19 EDT Performed On: 07/20/2019 11:16 EDT by RODOLFO TOUSSAINT ASSESSMENT CLINICIAN Mg Care Management Note Care Management Note : This clinician spoke with [facility] Medical intake department. Informed referral is under review and they will contact cattle manager Sisi for additional medical information on patient. [facility] spoke with [facility] they are waiting for doctor to review the clinical information today. They will contact [facility] or [facility] office for disposition on patient. [facility] spoke with [facility], currently under review. [facility] cancelled referral due to unable to get medical question answered last night. Care Management Note Report : RODOLFO TOUSSAINT ASSESSMENT CLINICIAN Mg - 07/20/19 10:19:06 Update on the referrals for this patient. Garrett Yang and [facility] declined inpt treatment. [facility] no longer has a [facility]. Attempted to contact [facility] regarding referral. Unable to reach someone in admissions to get an update on referral. Contacted EDISON Laird regarding update on referrals. Explained her phone # to the [facility] unit was given to referrals to contact regarding dispositions. RODOLFO TOUSSAINT ASSESSMENT CLINICIAN I - 07/19/19 15:35:04 The following hospitals have been contacted and faxed clinical information for consideration of inpt debbie psych: [facility]- phone [phone] Fx:[phone] [facility]-PH:[phone] Fx: [phone] [facility]- Fx:[phone] [facility]- Fx:[phone] [facility]- Fx:[phone] [facility]- Fx:[phone] [facility]- Fx:[phone] [facility]- Fx:[phone] [facility]- Fx:[phone] [facility]- Fx:[phone] --declined pt [facility]- Documentation Status Complete : Yes RODOLFO TOUSSAINT PATROL OFFICER I - 07/20/2019 11:16 EDT Electronically signed by Summer [facility] Conversion Ic Design Manager Januaryner at 01/23/2023 1:13 PM CDT documented in this encounter Plan of Treatment Not on file documented as of this encounter Visit Diagnoses Not on filedocumented in this encounter
--- OUTSIDE RECORDS SUMMARY | 2025-09-06 08:08 | XMS_ITS | Encounter Summary ---
Author Organization [employer] ([place], [place], [place], [place], [place]) Address [address] [place] [address] Care Team Providers Care Liner Man Name Role Phone Unavailable Primary Care Provider Unavailabl e Encounter Details Date Type Department Care Team (Late st Contact Info) Description 04/06/2019 Transcribed Document [facility] [place] [facility] [place] [address] ProviderChano MD [facility] [place] [id number] Social History Tobacco Use Types Packs/Day Years [...] 04/06/2019 9:43 EDT Electronically signed by Summer [facility] Conversion Production Machine Tender Cerner at 01/23/2023 1:29 PM CDT documented in this encounter Plan of Treatment Not on file documented as of this encounter Visit Diagnoses Not on filedocumented in this encounter
--- OUTSIDE RECORDS SUMMARY | 2025-09-06 08:08 | XMS_ITS | Encounter Summary ---
Author Organization [employer] ([place], [place], [place], [place], [place]) Address [address] [place] [address] Care Team Providers Care Nitrator Operator Name Role Phone Unavailable Primary Care Provider Unavailabl e Encounter Details Date Type Department Care Team (Late st Contact Info) Description 07/20/2019 Transcribed Document [facility] [place] [facility] [place] [address] ProviderChano MD [address] [place], [place] [id number] Social History Tobacco Use Types Packs/Day Years Used Date Smoking Tobacco: Never Assessed Comments Unknown Sex and Gender Information Value Date Recorded Sex Assigned at Not on file Legal Sex Female 2:07 PM CDT Gender Identity Not on file Sexual Orientation Not on file documented as of this encounter Miscellaneous Notes * Cerner Conversion Note - Historical ProviderMD - 07/20/2019 10:15 AM CDT Care Management Assessment/Plan Entered On: 07/20/2019 10:19 EDT Performed On: 07/20/2019 10:15 EDT by RODOLFO TOUSSAINT ASSESSMENT CLINICIAN Mg Care Management Note Care Management Note : Update on the referrals for this patient. [facility] declined inpt treatment. [facility]. Unable to reach someone in admissions to get an update on referral. Contacted EDISON Laird regarding update on referrals. Explained her phone # to the [facility] unit was given to referrals to contact regarding dispositions. Care Management Note Report : RODOLFO TOUSSAINT ASSESSMENT CLINICIAN I - 07/19/19 15:35:04 The following hospitals have been contacted and faxed clinical information for consideration of inpt debbie psych: [facility]- phone [phone] Fx:[phone] [facility]-PH:[phone] Fx: [phone] [place] Fx:[phone] [facility]- Fx:[phone] [facility]- Fx:[phone] [facility]- Fx:[phone] [facility]- Fx:[phone] [facility]- Fx:[phone] [facility]- Fx:[phone] [facility]- Fx:[phone] --declined pt [facility]- Documentation Status Complete : Yes RODOLFO TOUSSAINT, MOTION PICTURE PRINTER I - 07/20/2019 10:15 EDT documented in this encounter Plan of Treatment Not on file documented as of this encounter Visit Diagnoses Not on filedocumented in this encounter
--- OUTSIDE RECORDS SUMMARY | 2025-09-06 08:09 | XMS_ITS | Clinical Summary ---
Author Organization [employer] ([place], [place], [place], [place], [place]) Address [address] [place] [address] Care Team Providers Care Trackwalker Name Role Phone Unavailable Primary Care Provider [...]
--- OUTSIDE RECORDS SUMMARY | 2025-09-06 08:09 | XMS_ITS | Encounter Summary ---
Author Organization [employer] ([place], [place], [place], [place], [place]) Address [address] [place] [address] Care Team Providers Care Winemaker Name Role Phone Unavailable Primary Care Provider Unavailabl e Encounter Details Date Type Department Care Team (Late st Contact Info) Description 07/15/2019 Transcribed Document [facility] [place] [address] [place] [address] ProviderChano MD [address] [place], [place] [id number] Social History Tobacco Use Types [...] Historical ProviderMD - 07/15/2019 2:00 AM CDT Pocket Flap Creasing Machine Operator Details Entered On: 07/15/2019 3:37 EDT Performed [...] Eriberto Crawley Rn-Resource - 07/15/2019 3:37 EDT documented in this encounter Plan of Treatment Not on file documented as of this encounter Visit Diagnoses Not on filedocumented in this encounter
--- OUTSIDE RECORDS SUMMARY | 2025-09-06 08:09 | XMS_ITS | Encounter Summary ---
Author Organization [employer] ([place], [place], [place], [place], [place]) Address [address] [place] [address] Care Team Providers Care Manager Contract Name Role Phone Unavailable Primary Care Provider Unavailabl e Encounter Details Date Type Department Care Team (Late st Contact Info) Description 07/19/2019 Transcribed Document [facility] [place] [address] [place] [address] ProviderChano MD [address] [place], [place] [phone] Social History Tobacco Use Types Packs/Day Years [...]
--- OUTSIDE RECORDS SUMMARY | 2025-09-06 08:09 | XMS_ITS | Encounter Summary ---
Author Organization [employer] ([place], [place], [place], [place], [place]) Address [address] [place] [address] Care Team Providers Care Amusement Centre Manager Name Role Phone Unavailable Primary Care Provider Unavailabl e Encounter Details Date Type Department Care Team (Late st Contact Info) Description 07/16/2019 Transcribed Document [facility] [place] [facility] [place] [address] ProviderChano MD [facility] [place] [id number] Social History Tobacco Use Types Packs/Day Years Used Date Smoking Tobacco: Never Assessed Comments Unknown Sex and Gender Information Value Date Recorded Sex Assigned at Not on file Legal Sex Female 2:07 PM CDT Gender Identity Not on file Sexual Orientation Not on file documented as of this encounter Miscellaneous Notes * Cerner Conversion Note - Historical ProviderMD - 07/16/2019 1:23 PM CDT Patient: [...] uncomfortable and she want to go to [facility] her glucose level also high > 200 [...] chew) Flonase 0.05 mg/inh nasal spray: 2 [place], Nasal, Daily, 16 Gram, 0 Refill(s) Lantus: [...] Bedtime Flonase 0.05 mg/inh nasal spray 2 [place], Nasal, Daily Lantus 60 Units, SubCutaneous, At [...] list: Medical Wears glasses / SNOMED CT 411794928 / Confirmed Sleep apnea///risk / SNOMED CT 947911167 / Confirmed Colon polyps / SNOMED CT 147585602 / Confirmed Right leg pain / SNOMED CT 8054012881 / Confirmed Obesity / SNOMED CT 4353282773 / Confirmed Numbness and tingling//right leg / SNOMED CT 8242385411 / Confirmed Memory deficit///slow recall / SNOMED CT 0611614023 / Confirmed H/O ischemic left MCA stroke / SNOMED CT 2486369609 / Confirmed Hiatal hernia / SNOMED CT 474036477 / Complaint of Fibromyalgia / SNOMED CT 474022063 / Confirmed Lumbar disc disease / SNOMED CT 4175438338 / Confirmed Completely occulded L carotid / SNOMED CT 8929516286 / Confirmed Chest pain///cath negative / SNOMED CT 69719498 / Confirmed Cataract///beginning stage / SNOMED CT 169200842 / Confirmed Back pain / SNOMED CT 5796999540 / Confirmed At risk for sleep apnea / IMO 62536311 / Confirmed Pain//chronic / SNOMED CT 132242050 / Confirmed, Active Problems (24) Acid reflux [...] 99.2 (JUL 16:28) Apical HR 76 (JUL 16:16) 76 (JUL 16:16) 85 (JUL 15 20:09) Mon HR 73 [...] 16 06:45) 94 (JUL 16 06:45) 97 (OCT 10 15:09) General: Moderate distress. Neck: Supple, Non-tender, [...] 31 (JUL 07) 31 (OCT 06) 27 (OCT 04) [...] 09) 10.1 (JUL 03) INR 0.9 (JUL 04) 0.9 (JUL 03) PTT 28.0 (JUL 03) AST 18 (JUL 07) 16 (OCT 04) 17 (JUL 03) ALT 25 (JUL 07) 23 (JUL 09) 21 (JUL 03) ALK P 56 (JUL 07) 69 (JUL 09) 63 (JUL 08) T [...]
--- OUTSIDE RECORDS SUMMARY | 2025-09-06 08:09 | XMS_ITS | Encounter Summary ---
Author Organization [email or web address] ([place], [place], [place], [place], [place]) Address [address] [place] [address] Care Team Providers Care Director Religious Education Name Role Phone Unavailable Primary Care Provider Unavailabl e Encounter Details Date Type Department Care Team (Late st Contact Info) Description 04/06/2019 Transcribed Document [facility] [place] [facility] [address] ProviderChano MD [facility] [place], [place] [id number] Social History Tobacco Use Types Packs/Day Years [...] 1 L3-[address] Lucas- [place] [facility] [place]. discussed follow up and wound [...] Appearance CLEAR2 04/05/2019 11:52 EDT Urine Specific [place] 1.021 04/05/2019 11:52 EDT Urine pH Dipstick [...] 04/05/2019 11:52 EDT Electronically signed by Summer, [facility] Conversion Shift Supervisor Melting Cerner at 01/23/2023 1:09 PM CDT documented in this encounter Plan of Treatment Not on file documented as of this encounter Visit Diagnoses Not on filedocumented in this encounter
--- OUTSIDE RECORDS SUMMARY | 2025-09-06 08:09 | XMS_ITS | Encounter Summary ---
Author Organization [employer] ([place], [place], [place], [place], [place]) Address [address] [place] [address] Care Team Providers Care Chinese Medicine Practitioner Name Role Phone Unavailable Primary Care Provider Unavailabl e Encounter Details Date Type Department Care Team (Late st Contact Info) Description 07/14/2019 Transcribed Document [facility] [place] [address] [place] [address] ProviderChano MD [address] [place], [place] [phone] Social History Tobacco Use Types Packs/Day Years [...]
--- OUTSIDE RECORDS SUMMARY | 2025-09-06 08:09 | XMS_ITS | Encounter Summary ---
Author Organization [employer] ([place], [place], [place], [place], [place]) Address [address] [place] [address] Care Team Providers Care Dry Finisher Name Role Phone Unavailable Primary Care Provider Unavailabl e Encounter Details Date Type Department Care Team (Late st Contact Info) Description 07/18/2019 Transcribed Document [facility] [place] [facility] [place] [address] ProviderChano MD [address] [place] [id number] Social History Tobacco Use Types Packs/Day Years [...] chew) Flonase 0.05 mg/inh nasal spray: 2 [place], Nasal, Daily, 16 Gram, 0 Refill(s) Lantus: [...] Bedtime Flonase 0.05 mg/inh nasal spray 2 [place], Nasal, Daily Lantus 60 Units, SubCutaneous, At [...] list: Medical Wears glasses / SNOMED CT 310851402 / Confirmed Sleep apnea///risk / SNOMED CT 395509966 / Confirmed Colon polyps / SNOMED CT 700291312 / Confirmed Right leg pain / SNOMED CT 0544951416 / Confirmed Obesity / SNOMED CT 1947515544 / Confirmed Numbness and tingling//right leg / SNOMED CT 8198528075 / Confirmed Memory deficit///slow recall / SNOMED CT 9025448097 / Confirmed H/O ischemic left MCA stroke / SNOMED CT 4482518352 / Confirmed Hiatal hernia / SNOMED CT 164068090 / Complaint of Fibromyalgia / SNOMED CT 548798976 / Confirmed Lumbar disc disease / SNOMED CT 1870809986 / Confirmed Completely occulded L carotid / SNOMED CT 5482901920 / Confirmed Chest pain///cath negative / SNOMED CT 50677639 / Confirmed Cataract///beginning stage / SNOMED CT 375843012 / Confirmed Back pain / SNOMED CT 1845541556 / Confirmed At risk for sleep apnea / IMO 42586190 / Confirmed Pain//chronic / SNOMED CT 374012531 / Confirmed, Active Problems (24) Acid reflux [...] 18 08:27) Resp Rate 17 (JUL 18 08:27) 17 (JUL 17 18:38) 18 (JUL 18 06:24) SBP H [...] (OCT 04) Plt 277 (JUL 13) 263 (OCT [...] (OCT 04) Cr 1.00 (JUL 13) 0.90 (JUL 07) 0.90 (OCT 06) H 1.10 (JUL 04) Glu R H 213 (JUL 13) H 202 (JUL 07) H 248 (OCT 06) H 207 (JUL 09) Ca 9.4 (JUL 18) 9.0 (JUL 12) [...]
--- OUTSIDE RECORDS SUMMARY | 2025-09-06 08:09 | XMS_ITS | Encounter Summary ---
Author Organization [employer] ([place], [place], [place], [place], [place]) Address [address] [place] [address] Care Team Providers Care Events Solutions Consultant Name Role Phone Unavailable Primary Care Provider Unavailabl e Encounter Details Date Type Department Care Team (Late st Contact Info) Description 04/05/2019 Transcribed Document [facility] [place] [facility] [place] [address] ProviderChano MD [address] [place] [phone] Social History Tobacco Use Types Packs/Day Years [...]
--- OUTSIDE RECORDS SUMMARY | 2025-09-06 08:09 | XMS_ITS | Encounter Summary ---
Author Organization [employer] ([place], [place], [place], [place], [place]) Address [address] [place] [address] Care Team Providers Care Energy Engineer Name Role Phone Unavailable Primary Care Provider Unavailabl e Encounter Details Date Type Department Care Team (Late st Contact Info) Description 07/19/2019 Transcribed Document [facility] [place] [facility] [place] [address] Chano Gatica MD [address] [place], [place] [phone] Social History Tobacco Use Types Packs/Day Years Used Date Smoking Tobacco: Never Assessed Comments Unknown Sex and Gender Information Value Date Recorded Sex Assigned at Not on file Legal Sex Female 2:07 PM CDT Gender Identity Not on file Sexual Orientation Not on file documented as of this encounter Miscellaneous Notes * Cerner Conversion Note - Chano Gatica MD - 07/19/2019 8:27 AM CDT Patient: [...] POC2 246 mg/dL (High) 07/18/2019 11:22 EDT documented in this encounter Plan of Treatment Not on file documented as of this encounter Visit Diagnoses Not on filedocumented in this encounter
--- OUTSIDE RECORDS SUMMARY | 2025-09-06 08:09 | XMS_ITS | Encounter Summary ---
Author Organization [employer] ([place], [place], [place], [place], [place]) Address [address] [place] [address] Care Team Providers Care Hotel Custodian Name Role Phone Unavailable Primary Care Provider Unavailabl e Encounter Details Date Type Department Care Team (Late st Contact Info) Description 07/15/2019 Transcribed Document [facility] [place] [facility] [place] [address] ProviderChano MD [address] [place] [phone] Social History Tobacco Use Types Packs/Day Years [...] epithelial cells. Urine culture was positive for 10???234538 CFU/mL. CT of the L-spine was negative. [...] fluticasone nasal (Flonase) - 1 P[place], Nasal, [place], Daily, Routine Pain Meds morphine - 2 [...] 15:03) 62 (JUL 14 20:41) 82 (JUL 15:) Mon HR 74 (JUL 15 06:00) 62 [...] (JUL 09) 9.1 (JUL 08) HB 11.5 (OCT 07) 11.5 (JUL 06) 12.6 (JUL 09) 12.0 (JUL 03) HCT 35.7 (JUL 07) 35.6 (JUL 06) 39.8 (JUL 09) 37.3 (JUL 03) Plt 263 (OCT 07) [...] days, call any issues UM discussed with DC Piece Maker documented in this encounter Plan of Treatment Not on file documented as of this encounter Visit Diagnoses Not on filedocumented in this encounter
--- OUTSIDE RECORDS SUMMARY | 2025-09-06 08:09 | XMS_ITS | Encounter Summary ---
Author Organization [employer] ([place], [place], [place], [place], [place]) Address [address] [place] [address] Care Team Providers Care Outbound Sales Professional Name Role Phone Unavailable Primary Care Provider Unavailabl e Encounter Details Date Type Department Care Team (Late st Contact Info) Description 07/19/2019 Transcribed Document [facility] [place] [address] [place] [address] ProviderChano MD [address] [place], [place] [phone] Social History Tobacco Use Types Packs/Day Years [...] On: 07/19/2019 15:07 EDT by HORACIO ACHARYA RN-Special Procedure TechHydraulic Repairer Progress Note Discharge Arrangements : Patient Post-Acute Information Patient Name: LUDY ANTONIO Gender: Female : [birth year] Age: 68 Years No Post-Acute Placement(s) Listed No Post-Acute Service(s) Listed No [place] Referral(s) Listed Barriers to Discharge Identified : Clinical Condition of Patient Barriers to Discharge Unresolved : Clinical Condition of Patient HORACIO ACHARYA RN-Special Procedure Tech - 07/19/2019 15:07 EDT Narrative Progress Note [...] CM will continue to follow. HORACIO ACHARYA RN-Special Procedure Tech - 07/16/19 12:46:58 [facility] declined admission to their psych unit. No word from [facility]. Met with pt's daughter and had lengthy discussion regarding disposition. CM will consult [facility] at time of dc for help with admission to debbie-psych unit somewhere. D/W Dr. Horner and Dr. Jama. CM will continue to follow. HORACIO ACHARYA RN-Special Procedure Tech - 07/15/19 14:03:13 Spoke to pt's spouse Kian on the phone today. 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 He states he does not want her going to those places as she kows people there. He agrees to referrals to [facility] and [facility] inpatient psych units. Referral sent and spoke to JUSTA Perez at [facility] and Royce RN at [facility]. CM will continue to follow. HORACIO ACHARYA RN-Special Procedure Tech - 07/14/19 13:36:43 Dr. Valdez consult this [...] CM will continue to follow. HORACIO ACHARYA RN-Special Procedure Tech - 07/13/19 17:41:20 psych consult referral faxed to Dr. Valdez's office to assess for psychosis. SANJIV VOGT, EDISON-Special Procedure Tech - 07/11/19 16:14:26 HORACIO ACHARYA RN-Special Procedure Tech - 07/19/2019 15:07 EDT Electronically signed by Summer [facility] Conversion Relief Pilot Cerner at 01/23/2023 1:20 PM CDT documented in this encounter Plan of Treatment Not on file documented as of this encounter Visit Diagnoses Not on filedocumented in this encounter
--- OUTSIDE RECORDS SUMMARY | 2025-09-06 08:09 | XMS_ITS | Encounter Summary ---
Author Organization [employer] ([place], [place], [place], [place], [place]) Address [address] [place] [address] Care Team Providers Care Brass Bobbin Winder Name Role Phone Unavailable Primary Care Provider Unavailabl e Encounter Details Date Type Department Care Team (Late st Contact Info) Description 07/16/2019 Transcribed Document [facility] [place] [facility] [place] [address] ProviderChano MD [facility] [place], [place] [phone] Social History Tobacco Use Types Packs/Day Years [...] 104 (OCT 07) 104 (JUL 06) 106 (JUL 04) 105 (JUL 03) CO2 31 (OCT 07) 31 (OCT 06) 27 (JUL 04) [...] (JUL 12) 23 (JUL 09) 21 (JUL 03) ALK P 56 (JUL 12) 69 (JUL 09) 63 (JUL 03) T Bili 0.3 (JUL 12) 0.3 (JUL 09) 0.4 (JUL 08) PTN 6.7 (JUL 12) 7.1 (JUL 09) 7.0 (JUL 03) ALB L 2.8 (JUL 12) L 3.1 (JUL 09) L 3.2 (JUL 08) Vitals Signs (last 24 hrs) Last Charted [...] off. Thank you for this consult. Lia Huddleston, PharmD PGY-1 [facility] Pager: [phone] documented in this encounter Plan of Treatment Not on file documented as of this encounter Visit Diagnoses Not on filedocumented in this encounter
--- OUTSIDE RECORDS SUMMARY | 2025-09-06 08:09 | XMS_ITS | Referral Summary ---
Author Organization [employer] ([place], [place], [place], [place], [place]) Address [address] [place] [address] Care Team Providers Care Research Interviewer Name Role Phone Unavailable Primary Care Provider [...]
--- OUTSIDE RECORDS SUMMARY | 2025-09-06 08:09 | XMS_ITS | Encounter Summary ---
Author Organization [employer] ([place], [place], [place], [place], [place]) Address [address] [place] [address] Care Team Providers Care Engineering Group Manager Name Role Phone Unavailable Primary Care Provider Unavailabl e Encounter Details Date Type Department Care Team (Late st Contact Info) Description 07/17/2019 Transcribed Document [facility] [place] Medicine [facility] [place] [address] ProviderChano MD [facility] [place] [phone] Social History Tobacco Use Types Packs/Day Years [...] chew) Flonase 0.05 mg/inh nasal spray: 2 [place], Nasal, Daily, 16 Gram, 0 Refill(s) Lantus: [...] Bedtime Flonase 0.05 mg/inh nasal spray 2 [place], Nasal, Daily Lantus 60 Units, SubCutaneous, At [...] list: Medical Wears glasses / SNOMED CT 874019490 / Confirmed Sleep apnea///risk / SNOMED CT 111075259 / Confirmed Colon polyps / SNOMED CT 014991246 / Confirmed Right leg pain / SNOMED CT 2769919490 / Confirmed Obesity / SNOMED CT 2651827326 / Confirmed Numbness and tingling//right leg / SNOMED CT 6755383166 / Confirmed Memory deficit///slow recall / SNOMED CT 6095914402 / Confirmed H/O ischemic left MCA stroke / SNOMED CT 7165507520 / Confirmed Hiatal hernia / SNOMED CT 795604783 / Complaint of Fibromyalgia / SNOMED CT 133923122 / Confirmed Lumbar disc disease / SNOMED CT 5145068085 / Confirmed Completely occulded L carotid / SNOMED CT 9279649009 / Confirmed Chest pain///cath negative / SNOMED CT 71348702 / Confirmed Cataract///beginning stage / SNOMED CT 206223110 / Confirmed Back pain / SNOMED CT 7753980430 / Confirmed At risk for sleep apnea / IMO 48980578 / Confirmed Pain//chronic / SNOMED CT 198409017 / Confirmed, Active Problems (24) Acid reflux [...] 09) 37.3 (JUL 03) Plt 263 (JUL 12) 230 (JUL 06) 267 (JUL 09) 268 (JUL 03) Na 142 (JUL 12) 140 (JUL 11) 142 (JUL 09) 141 (JUL 08) K 3.8 (JUL 12) 4.2 (JUL 06) 4.4 (JUL 09) 3.9 [...]
--- OUTSIDE RECORDS SUMMARY | 2025-09-06 08:09 | XMS_ITS | Clinical Summary ---
Author Organization [facility] , [facility] Address [address] [place] [address] Phone Care Team Providers Care Grip Assembler Name Role Phone ROMÁN THOMPSNO, BRENDON Primary Care Provider [phone] Damien THOMPSON, Molly Win Unavailable [phone] Reason for Visit and Chief Complaint The Chief Complaint is: left knee pain Problems Includes: Problems addressed during this encounter and other active Problems All Visits Onset Date Resolved Date Provider Condition S tatus Joint Pain Left Knee 02/14/2023 Shhabaz Broderick on PA-C Active Last Documented On 3 1:10PM ; [facility] Joint Pain Hip Right 07/02/2018 Roque Calvillo MD Active Last Documented On 8 1:54PM ; [facility] Joint Pain Right Knee 01/09/2015 Molly kc MD Active Last Documented On 5 10:52AM ; [facility] Plan of Treatment Patient screened for future fall risk: documentation of any fall with injury in past year. - Last Documented On 04/27/2025 2:23PM ; [facility] Fall Risk Assessment: This patient has been [...] therapy has been discussed with the patient. - Last Documented On 04/27/2025 2:23PM ; [facility], [facility] Instructions to patient Lose weight Last Documented On 1:33PM ; [facility], [facility] Assessments Includes: Assessments from this encounter Findings - Overweight - Last Documented On 04/27/2025 2:23PM ; [facility], [facility] Instructions Includes: Instructions from this encounter Instructions to patient Lose weight Last Documented On 1:33PM ; [facility], [facility] Medical Equipment - Implanted Devices Includes: Current Devices No Medical Equipment Recorded Medications Includes: Medications discussed during this encounter and other current Medications Current Medications (continue as prescribed) NIFEdipine ER 60 MG Oral Tab let Extended Release 24 Hour 08/10/2025 Provider: BRENDON FRANCE MD Diagnosis: Last Documented On 1:22PM By Joya Omer ; [facility] Chlorthalidone 25 MG Oral Tablet 08/10/2025 Provider : BRENDON FRANCE MD Diagnosis: Last Documented On 1:22PM By Joya Omer ; [facility], [facility] Myrbetriq 25 MG Oral Tablet Extended Release 24 Hour 08/09/2025 Provider: BRENDON FRANCE MD Diagnosis: Last Documented On 1:22PM By Joya Omer ; [facility], [facility] Insulin Aspart FlexPen 100 U NIT/ML Subcutaneous Solution Pen-injector 08/08/2025 Provider: Diagnosis: Last Documented On 1:22PM By Joya Omer ; [facility], [facility] oxyCODONE HCl 5 MG Oral Tablet 08/08/2025 Provider: BRENDON FRANCE MD Diagnosis: Last Documented On 1:22PM By Joya Omer ; [facility], [facility] RABEprazole Sodium 20 MG Ora l Tablet Delayed Release 08/08/2025 Provider: BRENDON FRANCE MD Diagnosis: Last Documented On 1:22PM By Joya Omer ; [facility], [facility] Embecta AutoShield Duo 30G X 5 MM Miscellaneous 08/08/2025 Provider: BRENDON FRANCE MD Diagnosis: Last Documented On 1:22PM By Joya Omer ; [facility], [facility] Insulin Aspart FlexPen 100 U NIT/ML Subcutaneous Solution Pen-injector 08/04/2025 Provider: Diagnosis: Last Documented On 1:22PM By Joya Omer ; [facility], [facility] Methocarbamol 500 MG Oral Tablet 08/04/2025 Provider : BRENDON FRANCE MD Diagnosis: Last Documented On 1:22PM By Joya Omer ; [facility], [facility] Clopidogrel Bisulfate 75 MG Oral Tablet 08/03/2025 P rovider: BRENDON FRANCE MD Diagnosis: Last Documented On 1:22PM By Joya Omer ; [facility], [facility] DULoxetine HCl 60 MG Oral Ca psule Delayed Release Particles 08/01/2025 Provider: BRENDON FRANCE MD Diagnosis: Last Documented On 1:22PM By Joya Omer ; [facility], [facility] Metoclopramide HCl 10 MG Oral Tablet Disintegrating Provider: Diagnosis: Last Documented On 2:26PM By Isa Casarez ; [facility], [facility] Tylenol 500 mg Oral Capsule 03/03/2025 Provider: Diagnosis: Last Documented On 2:27PM By Isa Casarez ; [facility], [facility] Insulin Lispro (0.5 Unit Kimberlee l) 100 UNIT/ML Subcutaneous Solution Pen-injector 03/03/2025 Provider: Diagnosis: Last Documented On 2:28PM By Isa Casarez ; [facility], [facility] Ondansetron HCl 4 MG Oral Tablet 03/03/2025 Provider : Diagnosis: Last Documented On 2:28PM By Isa Casarez ; [facility], [facility] MiraLax 17 GM Oral Packet 03/03/2025 Provider: Diagnosis: Last Documented On 2:28PM By Isa Casarez ; [facility], [facility] NIFEdipine 10 MG Oral Capsule 03/03/2025 Provider: Diagnosis: Last Documented On 2:28PM By Isa Casarez ; [facility], [facility] Isosorbide Mononitrate ER 30 MG Oral Tablet Extended Release 24 Hour 03/03/2025 Provider: Diagnosis: Last Documented On 2:29PM By Isa Casarez ; [facility], [facility] Chlorthalidone 15 MG Oral Tablet 03/03/2025 Provider : Diagnosis: Last Documented On 2:30PM By Isa Casarez ; [facility], [facility] Adult Centrum Multi Vitamin Oral Tablet 03/03/2025 P rovider: Diagnosis: Last Documented On 2:30PM By Isa Csaarez ; [facility], [facility] Carvedilol 3.125 MG Oral Tablet 03/03/2025 Provider: Diagnosis: Last Documented On 2:30PM By Isa Casarez ; [facility], [facility] Movantik 12.5 MG Oral Tablet 03/03/2025 Provider: Diagnosis: Last Documented On 2:30PM By Isa Casarez ; [facility], [facility] Bisacodyl Laxative 10 MG Rectal Suppository 03/03/2025 Provider: Diagnosis: Last Documented On 2:31PM By Isa Casarez ; [facility], [facility] Asperflex Lidocaine 4% External Cream 03/03/2025 Pro vider: Diagnosis: Last Documented On 2:31PM By Isa Casarez ; [facility], [facility] Sennosides 15 MG Oral Tablet 03/03/2025 Provider: Diagnosis: Last Documented On 2:31PM By Isa Casarez ; [facility], [facility] Dulcolax 10 MG Rectal Suppository 03/03/2025 Provide r: Diagnosis: Last Documented On 2:32PM By Isa Casarez ; [facility], [facility] Naloxone HCl 3 MG/0.1ML Nasal Liquid 03/03/2025 Prov ider: Diagnosis: Last Documented On 2:32PM By Isa Casarez ; [facility], [facility] Simethicone 125 MG Oral Capsule 03/03/2025 Provider: Diagnosis: Last Documented On 2:32PM By Isa Casarez ; [facility], [facility] GNP Loratadine 10 MG Oral Tablet 03/03/2025 Provider : Diagnosis: Last Documented On 2:26PM By Isa Casarez ; [facility], [facility] Simethicone 80 MG Oral Tablet 03/03/2025 Provider: Diagnosis: Last Documented On 5 2:26PM By Isa Casarez ; [facility], [facility] Mirabegron ER 25 MG Oral Tablet Extended Release 24 Ho ur 03/03/2025 Provider: Diagnosis: Last Documented On 5 2:25PM By Isa Casarez ; [facility], [facility] Gabapentin 300 MG Oral Capsule 03/03/2025 Provider: Diagnosis: Last Documented On 5 2:25PM By Isa Casarez ; [facility], [facility] Past Medications on file P[employer]aid Diclofenac Sodium 1.5% Xena w/w EX SOLN 02/28/2010 - 03/30/2010 Provider: Molly bradford MD Diagnosis: apply 10 drops to affected area Last Documented On 0 11:39AM By Silva 1 User ; [facility], [facility] Voltaren Gel 1% EX GEL 12/06/2009 - 01/05/2010 Provide r: Molly Quezada MD Diagnosis: apply 4 grams to affected area 4 times per day/a b Last Documented On 0 3:59PM By Silva 3 User ; [facility], [facility] Lortab 7.5-500 MG OR TABS 10/04/2009 - 10/09/2009 Prov ider: Molly Quezada MD Diagnosis: as needed for painbh Last Documented On 9 8:43AM By Silva 2 User ; [facility], [facility] Arixtra 2.5 MG/0.5ML SC SOLN 06/21/2009 - 07/12/2009 P rovider: Molly Quezada MD Diagnosis: Last Documented On 9 2:34PM By Silva 1 User ; [facility], [facility] NOTE EX MISC 05/11/2009 - 05/12/2009 Provider: Ioana Quezada MD Diagnosis: faxed prior auth form back t o [employer] at [phone]//bh Last Documented On 9 9:47AM By Sirena Huddleston ; [facility], [facility] Flector Patch 1.3% PTCH 05/10/2009 - 06/09/2009 Provid er: Molly Quezada MD Diagnosis: apply patch q12hrs Last Documented On 9 3:18PM By Silva 4 User ; [facility] Phenergan 25 MG OR TABS 04/21/2009 - 05/21/2009 Provid er: Molly Quezada MD Diagnosis: Last Documented On 9 11:58AM By Silva 4 User ; [facility] Medications Administered Includes: Administered Medications from this encounter No Administered Medications Recorded Vital Signs Includes: Vital Signs from this encounter Vital Name 04/21/2025 01:35P Height (in) 64 Weight (lb) 270 Body Mass Index 46.3 Body Surface Area 2.2 Note: tm Last Documented: On 04/21/2025 1:35PM ; [facility] Results Includes: Results discussed during this encounter No Results Recorded For Specified Dates History of Present Illness Includes: History of Present Illness from this encounter МАРИНА Savage is a 74 year old female. [...] admitted to for a month last fall. Social History Description Last Updated No caffeine use 04/21/2025 Last Documented On 5 2:23PM ; [facility] Not a current smoker. 04/21/2025 Last Documented On 5 2:23PM ; [facility] Not using alcohol 04/21/2025 Last Documented On 5 2:23PM ; [facility] Not using drugs 04/21/2025 Last Documented On 5 2:23PM ; [facility] Recent change in diet 03/03/2025 Last Documented On 5 1:33PM ; [facility] Tobacco non-user 11/14/2022 Last Documented On 5 1:33PM ; [facility] Not exercising regularly 02/19/2016 Last Documented On 5 1:33PM ; [facility] Smoking Status Unknown Procedures and Surgical History Includes: Procedures from this encounter Procedures Code Diagnosis Performing Provider Service Location Service Date DRAIN/INJECT, JOINT/BURSA (LEFT) Unilateral primary osteoarthritis, left knee Saulo Brar MD [facility] 04/21/2025 Last Documented On 5 2:53PM ; [facility] Triamcinolone/Kenalog, 10mg per cc [id number] Unilateral primary osteoarthritis, left knee Saulo Brar MD [facility] 04/21/2025 Last Documented On 5 2:53PM ; [facility] an X-ray was performed [id number] Last Documented On 5 1:33PM ; [facility] Surgical History Last Updated History of back surgery 11/14/2022 Last Documented On 5 1:33PM ; [facility] History of History of Gallbladder 2022 Last Documented On 5 1:33PM ; [facility] History of appendectomy 02/19/2016 Last Documented On 5 1:33PM ; [facility] History of total hip replacement 016 Last Documented On 5 1:33PM ; [facility] Medical History Includes: Medical History addressed during this encounter Description Last Updated History of arthritis 11/14/2022 Last Documented On 5 1:33PM ; [facility] History of asthma 11/14/2022 Last Documented On 5 1:33PM ; [facility] History of Heartburn / Acid Reflux 11/14 Last Documented On 5 1:33PM ; [facility] History of History of Blood Clots 2022 Last Documented On 5 1:33PM ; [facility] History of Hypertension 11/14/2022 Last Documented On 5 1:33PM ; [facility], [facility] History of Stroke 11/14/2022 Last Documented On 5 1:33PM ; [facility] bilateral shoulder repair, A chilles Repair, right knee arthroscopy ~high cholesterol, heartburn, acid reflux 02/19/2016 Last Documented On 5 1:33PM ; [facility], [facility] History of acute myocardial infarction 0 02/19/2016 Last Documented On 5 1:33PM ; [facility] History of depression 02/19/2016 Last Documented On 5 1:33PM ; [facility], [facility] History of diabetes mellitus 02/19/2016 Last Documented On 5 1:33PM ; [facility], [facility] History of diverticulitis of colon 02/18 Last Documented On 5 1:33PM ; [facility], [facility] History of gastric ulcer 02/19/2016 Last Documented On 5 1:33PM ; [facility], [facility] Intermittent hypertension 02/19/2016 Last Documented On 5 1:33PM ; [facility], [facility] Family History Includes: Family History addressed during this encounter Description Last Updated Stroke / Seizures 03/08/2024 Last Documented On 5 1:33PM ; [facility], [facility] stroke/seizures 02/19/2016 Last Documented On 5 1:33PM ; [facility], [facility] Family history of diabetes mellitus 02/03 Last Documented On 5 1:33PM ; [facility], [facility] Family history of heart disease 02/19/20 16 Last Documented On 5 1:33PM ; [facility], [facility] Family history of hypertension 6 Last Documented On 5 1:33PM ; [facility], [facility] Family history of osteoporosis 6 Last Documented On 5 1:33PM ; [facility], [facility] Family history of thromboembolic disease 02/19/2016 Last Documented On 5 1:33PM ; [facility], [facility] Review of Systems Includes: Review of Systems from this encounter Systemic: Not feeling tired, no recent weight [...] Immunologic: No complaint of seasonal allergic reaction. Mental Status Includes: Mental Status from this encounter Description No anxiety Functional Status Includes: Functional Status from this encounter No Functional Status Recorded Physical Exam Includes: Physical Exam from this encounter Allergies Includes: Active Allergies Substance Type Reaction Onset Date Resolved Date Statu s OTHER Allergy ADVANDA 07/02/2018 Active Last Documented On 08/11/2025 1:22PM ; [facility] Note: CONGESTIVE HEART FAILURE NSAIDs Allergy HURTS STOMACH 01/09/2015 Activ e Last Documented On 08/11/2025 1:22PM ; [facility] Note: HAS ULCERS Ibuprofen Allergy Nausea, Vomiting 03/03/2025 Ac tive Last Documented On 1:22PM ; [facility], [facility] Encounters Encounter Provider Location Date Check-In Time Check-Out Time Diagnosis IN HOUSE REFERRAL Saulo Brar MD [facility] 04/21/20 1:27PM 2:22PM Overweight Insurance Includes: Active Insurance Policies Plan Name Member ID Group # Subscriber Relationship Effect joaquim Dates 1 - [facility] ICA [id number] Adrienne Garcia Clinical Notes Includes: Clinical Notes from this encounter * Progress note Date Encounter Last Documented by 04/21/2025 IN HOUSE REFERRAL Last documente d on 04/27/2025; 2:23 PM, Saulo Brar MD; [facility], [facility] Active Problems & Conditions - Joint Pain [...] Solution Pen-injector 90 days, 0 refills - Docjp-0-icgm Ethyl Esters 1 GM Oral Capsule 90 [...] x-ray of the left knee demonstrates severe wryo-fx-ougi arthritis in the medial compartment. Varus deformity. [...] Care Team - BRENDON FRANCE MD - PIEROGI MAKER User Defined 5 Severe left knee osteoarthritis [...]
--- OUTSIDE RECORDS SUMMARY | 2025-09-06 08:09 | XMS_ITS | Encounter Summary ---
Author Organization [employer] ([place], [place], [place], [place], [place]) Address [address] [place] [address] Care Team Providers Care Traffic Or System Dispatcher Name Role Phone Unavailable Primary Care Provider Unavailabl e Encounter Details Date Type Department Care Team (Late st Contact Info) Description 04/06/2019 Transcribed Document [facility] [place] Family Medicine [facility] [place] [address] Chano Gatica MD [address] [place] [address] [id number] Social History Tobacco Use Types Packs/Day Years [...] at home: Medicines ??? Take or apply wzzw-qdc-lfahsov and prescription medicines only as told by [...] cannot use soap and water, use hand overnight houseperson. ? Change your bandage as told by [...] 07/01/2009 Document Revised: 02/27/2017 Document Reviewed: 03/11/2016 [employer] Patient Education ? 2019 [employer] Fall Prevention in the Home Introduction [...] items that you use a lot in yyfe-zq-qokuj places. ??? If you need to reach something above you, use a strong step stool that has a grab bar. ??? Keep electrical cords out of the way. ??? Do notuse floor dutch or wax that makes floors slippery. If [...]
--- OUTSIDE RECORDS SUMMARY | 2025-09-06 08:09 | XMS_ITS | Encounter Summary ---
Author Organization [employer] ([place], [place], [place], [place], [place]) Address [address] [place] [address] Care Team Providers Care Forest Fire Fighter Name Role Phone Unavailable Primary Care Provider Unavailabl e Encounter Details Date Type Department Care Team (Late st Contact Info) Description 07/15/2019 Transcribed Document [facility] [place] Family Medicine [address] [place] [address] ProviderChano MD [address] [place], [place] [id number] Social History Tobacco Use Types Packs/Day Years [...] chew) Flonase 0.05 mg/inh nasal spray: 2 [place], Nasal, Daily, 16 Gram, 0 Refill(s) Lantus: [...] Bedtime Flonase 0.05 mg/inh nasal spray 2 [place], Nasal, Daily Lantus 60 Units, SubCutaneous, At [...] list: Medical Wears glasses / SNOMED CT 521687007 / Confirmed Sleep apnea///risk / SNOMED CT 408438519 / Confirmed Colon polyps / SNOMED CT 935576777 / Confirmed Right leg pain / SNOMED CT 9389179413 / Confirmed Obesity / SNOMED CT 5508186150 / Confirmed Numbness and tingling//right leg / SNOMED CT 5668226186 / Confirmed Memory deficit///slow recall / SNOMED CT 5969790372 / Confirmed H/O ischemic left MCA stroke / SNOMED CT 1934709692 / Confirmed Hiatal hernia / SNOMED CT 908869290 / Complaint of Fibromyalgia / SNOMED CT 713021459 / Confirmed Lumbar disc disease / SNOMED CT 3688652990 / Confirmed Completely occulded L carotid / SNOMED CT 4359238536 / Confirmed Chest pain///cath negative / SNOMED CT 82997288 / Confirmed Cataract///beginning stage / SNOMED CT 558480418 / Confirmed Back pain / SNOMED CT 1363104147 / Confirmed At risk for sleep apnea / IMO 26825055 / Confirmed Pain//chronic / SNOMED CT 853120198 / Confirmed, Active Problems (24) Acid reflux [...] (JUL 06) 27 (JUL 09) 30 (JUL 08) BUN 14 (JUL 12) 14 (JUL 11) 19 (JUL 09) 20 (JUL 08) Cr 0.90 (JUL 07) 0.90 (JUL 06) [...]
--- OUTSIDE RECORDS SUMMARY | 2025-09-06 08:09 | XMS_ITS | Encounter Summary ---
Author Organization [employer] ([place], [place], [place], [place], [place]) Address [address] [place] [address] Care Team Providers Care Director Of Acquisitions Name Role Phone Unavailable Primary Care Provider Unavailabl e Encounter Details Date Type Department Care Team (Late st Contact Info) Description 07/19/2019 Transcribed Document [facility] [place] [facility] [place] [address] ProviderChano MD [address] [place] [address] Social History Tobacco Use Types [...] for consideration of inpt debbie psych: Rinku [facility]- phone [phone] Fx:[phone] [facility]-PH:[phone] Fx: [phone] [place], [place])- Fx:[phone] [facility]- Fx:[phone] Garrett Yang- Fx:[phone] [facility]- Fx:[phone] [facility]- Fx:[phone] [facility]- Fx:[phone] [facility]- Fx:[phone] [facility]- Fx:[phone] --declined pt [facility]- Documentation Status Complete : Yes RODOLFO TOUSSAINT, UPPER DOUBLER I - 07/19/2019 15:27 EDT documented in this encounter Plan of Treatment Not on file documented as of this encounter Visit Diagnoses Not on filedocumented in this encounter
--- OUTSIDE RECORDS SUMMARY | 2025-09-06 08:09 | XMS_ITS | Encounter Summary ---
Author Organization [employer] ([place], [place], [place], [place], [place]) Address [address] [place] [address] Care Team Providers Care Animal Therapist Name Role Phone Unavailable Primary Care Provider Unavailabl e Encounter Details Date Type Department Care Team (Late st Contact Info) Description 07/14/2019 Transcribed Document [facility] [place] Family Medicine Counts include 234 beds at the [facility] [place] [address] ProviderChano MD Counts include 234 beds at the [facility] [place], [place] [id number] Social History Tobacco Use Types Packs/Day Years [...] of head showed old CVA we added sermuna saw her today in am at 8:20 [...] Rocephin: 2 Gram, 100 mL/Hr, IV Piggyback, [id number] SEROquel: 12.5 mg, Oral, BID SEROquel: 6.25 [...] mL: 1,500 mg, 250 mL/Hr, IV Piggyback, [id number] Documented Medications Documented Aciphex: 20 mg, Oral, BID Advair Diskus 250 mcg-50 mcg inhalation powder: 1 Puff, Inhalation, Daily, PRN: as needed, 0 Refill(s) Centrum: 1 Tab, Oral, Daily Cymbalta 60 mg oral delayed release capsule: 1 Cap, Oral, At Bedtime, (do not crush or chew) Flonase 0.05 mg/inh nasal spray: 2 [place], Nasal, Daily, 16 Gram, 0 Refill(s) Lantus: [...] Bedtime Flonase 0.05 mg/inh nasal spray 2 [place], Nasal, Daily Lantus 60 Units, SubCutaneous, At [...] Oral, BID cefTRIAXone 2 Gram, IV Piggyback, [id number] divalproex 250 mg EC tab 250 mg [...] 0.9% 250 mL 1,500 mg, IV Piggyback, [id number] Continuous: (0) PRN: (8) acetaminophen 325 mg [...] list: Medical Wears glasses / SNOMED CT 612040714 / Confirmed Sleep apnea///risk / SNOMED CT 703738028 / Confirmed Colon polyps / SNOMED CT 773151992 / Confirmed Right leg pain / SNOMED CT 1832190290 / Confirmed Obesity / SNOMED CT 6840937343 / Confirmed Numbness and tingling//right leg / SNOMED CT 3379547075 / Confirmed Memory deficit///slow recall / SNOMED CT 4615168025 / Confirmed H/O ischemic left MCA stroke / SNOMED CT 5446321010 / Confirmed Hiatal hernia / SNOMED CT 205981161 / Complaint of Fibromyalgia / SNOMED CT 336697570 / Confirmed Lumbar disc disease / SNOMED CT 7635194234 / Confirmed Completely occulded L carotid / SNOMED CT 6225168282 / Confirmed Chest pain///cath negative / SNOMED CT 48543832 / Confirmed Cataract///beginning stage / SNOMED CT 897160741 / Confirmed Back pain / SNOMED CT 9475972930 / Confirmed At risk for sleep apnea / IMO 15937669 / Confirmed Pain//chronic / SNOMED CT 533419661 / Confirmed, Active Problems (24) Acid reflux [...] Charted Minimum Maximum Temp 97.9 (JUL 14 05:19) 97.9 (JUL 14 05:19) 98.1 (JUL 14 02:00) Apical HR 80 [...] 09) 9.1 (JUL 03) HB 11.5 (JUL 07) 11.5 (JUL 06) 12.6 (JUL 04) 12.0 (JUL 03) HCT 35.7 (JUL 07) 35.6 (JUL 06) 39.8 (OCT 04) 37.3 (OCT 03) Plt 263 (JUL 07) 230 (OCT 06) 267 (OCT 04) 268 (JUL 03) Na 142 (JUL [...] H 153 (OCT 03) Ca 9.0 (JUL 12) 9.0 (JUL [...] patient and f/u NS and ID input Electronically signed by Julian Wheeler Conversion Software Support Analyst Januaryner at 01/23/2023 1:13 PM CDT documented in this encounter Plan of Treatment Not on file documented as of this encounter Visit Diagnoses Not on filedocumented in this encounter
--- OUTSIDE RECORDS SUMMARY | 2025-09-06 08:09 | XMS_ITS | Encounter Summary ---
Author Organization [employer] ([place], [place], [place], [place], [place]) Address [address] [place] [address] Care Team Providers Care Pastoral Worker Name Role Phone Unavailable Primary Care Provider Unavailabl e Encounter Details Date Type Department Care Team (Late st Contact Info) Description 07/16/2019 Transcribed Document [facility] [place] Family Medicine [address] [place] [address] ProviderChano MD [address] [place], [place] [id number] Social History Tobacco Use Types Packs/Day Years [...] On: 07/16/2019 12:46 EDT by HORACIO ACHARYA RN-Home Health LpnColor Room Attendant Progress Note Discharge Arrangements : Patient Post-Acute Information Patient Name: LUDY ANTONIO Gender: Female : [birth year] Age: 68 Years No Post-Acute Placement(s) Listed No Post-Acute Service(s) Listed No [place] Referral(s) Listed Barriers to Discharge Identified : Clinical Condition of Patient Barriers to Discharge Unresolved : Clinical Condition of Patient HORACIO ACHARYA RN-Home Health Lpn - 07/16/2019 12:46 EDT Narrative Progress Note Narrative Progress Note : [facility] eval for inpatient psych on Thursday 07/19. CM will continue to follow. Historical Progress Note : [facility] declined admission to their psych unit. No word from [facility]. Met with pt's daughter and had lengthy discussion regarding disposition. CM will consult [facility] at time of dc for help with admission to [facility]-psych unit somewhere. D/W Dr. Horner and Dr. Jama. CM will continue to follow. HORACIO ACHARYA RN-Home Health Lpn - 07/15/19 14:03:13 Spoke to pt's spouse Kian on the phone today. 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 and [employer]. He states he does not want her going to those places as she kows people there. He agrees to referrals to [facility] and [facility] inpatient psych units. Referral sent and spoke to JUSTA Perez at [facility] and Royce RN at [facility]. CM will continue to follow. HORACIO ACHARYA RN-Home Health Lpn - 07/14/19 13:36:43 Dr. Valdez consult this [...] CM will continue to follow. HORACIO ACHARYA RN-Home Health Lpn - 07/13/19 17:41:20 psych consult referral faxed to Dr. Valdez's office to assess for psychosis. SANJIV VOGT RN-Home Health Lpn - 07/11/19 16:14:26 HOARCIO ACHARYA RN-Home Health Lpn - 07/16/2019 12:46 EDT documented in this encounter Plan of Treatment Not on file documented as of this encounter Visit Diagnoses Not on filedocumented in this encounter
--- OUTSIDE RECORDS SUMMARY | 2025-09-06 08:09 | XMS_ITS | Encounter Summary ---
Author Organization [employer] ([place], [place], [place], [place], [place]) Address [address] [place] [address] Care Team Providers Care Children'S Entertainer Name Role Phone Unavailable Primary Care Provider Unavailabl e Encounter Details Date Type Department Care Team (Late st Contact Info) Description 07/19/2019 Transcribed Document [facility] [place] Family Medicine [address] [place] [address] ProviderChano MD [address] [place], [place] [id number] Social History Tobacco Use Types Packs/Day Years [...]
--- OUTSIDE RECORDS SUMMARY | 2025-09-06 08:09 | XMS_ITS | Encounter Summary ---
Author Organization [employer] ([place], [place], [place], [place], [place]) Address [address] [place] [address] Care Team Providers Care Operations Controller Name Role Phone Unavailable Primary Care Provider Unavailabl e Encounter Details Date Type Department Care Team (Late st Contact Info) Description 07/15/2019 Transcribed Document [facility] [place] Family Medicine [facility] [place] [address] ProviderChano MD [address] [place], [place] [phone] Social History Tobacco Use Types Packs/Day Years [...] she would like to be considered for [facility]TE Prophylaxis - Medical Enoxaparin 40 [...] Vancomycin Trough 8.3 mcg/mL 07/14/2019 14:44 EDT documented in this encounter Plan of Treatment Not on file documented as of this encounter Visit Diagnoses Not on filedocumented in this encounter
--- OUTSIDE RECORDS SUMMARY | 2025-09-06 08:09 | XMS_ITS | Encounter Summary ---
Author Organization [employer] ([place], [place], [place], [place], [place]) Address [address] [place] [address] Care Team Providers Care Employment Consultant Name Role Phone Unavailable Primary Care Provider Unavailabl e Encounter Details Date Type Department Care Team (Late st Contact Info) Description 04/05/2019 Transcribed Document [facility] [place] Family Medicine [facility] [place] [address] ProviderChano MD [facility] [place] [phone] Social History Tobacco Use Types Packs/Day Years Used Date Smoking Tobacco: Never Assessed Comments Unknown Sex and Gender Information Value Date Recorded Sex Assigned at Not on file Legal Sex Female 2:07 PM CDT Gender Identity Not on file Sexual Orientation Not on file documented as of this encounter Miscellaneous Notes * [employer] Conversion Note - Historical ProviderMD - 04/05/2019 12:00 PM CDT Patient: LUDY ANTONIO Age: 68 [...] chew) Flonase 0.05 mg/inh nasal spray: 2 [place], Nasal, Daily, 16 Gram, 0 Refill(s) Lantus: [...] Bedtime Flonase 0.05 mg/inh nasal spray 2 [place], Nasal, Daily Lantus 60 Units, SubCutaneous, At [...] All Problems Wears glasses / SNOMED CT 253165401 / Confirmed Sleep apnea///risk / SNOMED CT 508070477 / Confirmed Colon polyps / SNOMED CT 987593887 / Confirmed Right leg pain / SNOMED CT 0422709186 / Confirmed Obesity / SNOMED CT 2224999585 / Confirmed Numbness and tingling//right leg / SNOMED CT 9296193592 / Confirmed Memory deficit///slow recall / SNOMED CT 0897003864 / Confirmed H/O ischemic left MCA stroke / SNOMED CT 2648875300 / Confirmed Hiatal hernia / SNOMED CT 634438525 / Complaint of Fibromyalgia / SNOMED CT 898288421 / Confirmed Dyslipidemia / SNOMED CT 9893524380 / Confirmed DM - Diabetes mellitus / SNOMED CT 897745363 / Confirmed Lumbar disc disease / SNOMED CT 9943526477 / Confirmed Completely occulded L carotid / SNOMED CT 5357536916 / Confirmed Congestive heart failure - due to Avandia resolved / SNOMED CT 46225332 / Confirmed per pt and Chest pain///cath negative / SNOMED CT 47009539 / Confirmed Cataract///beginning stage / SNOMED CT 992208449 / Confirmed BP+ - Hypertension / SNOMED CT 105919420 / Confirmed Back pain / SNOMED CT 8627080983 / Confirmed At risk for sleep apnea / IMO 96456802 / Confirmed Arthritis / SNOMED CT 0491098 / Confirmed Allergic asthma / SNOMED CT 6443193768 / Confirmed Pain//chronic / SNOMED CT 783917935 / Confirmed Acid reflux / SNOMED CT 250057600 / Confirmed, Active Problems (24) Acid reflux [...] and left shoulder repair. achilles repair. Appendectomy ([id number]). Cholecystectomy (26949478). Tonsillectomy (975240788). Social History Social & Psychosocial Habits Alcohol 06/24/2013 Alcohol Use in Last Twelve Months No Employment/School 07/17/2014 Status: Retired Previous employment/school: [employer] Home/Environment 07/17/2014 Lives with: Spouse Living situation: [...] (APR 05 12:00) Mon HR 91 (APR 05:) 91 (APR 05:00) 91 (APR 05:00) Resp Rate 16 (APR 05:) 16 (APR 05 12:00) 16 (APR 05:00) SBP H 162 (APR 05:00) H 162 (APR 05:) H 162 (APR 05:) DBP 73 (APR 05:) 73 (APR 05:00) 73 (APR 05:00) SpO2 95 (APR 05:) 95 (APR 05:) 95 (APR 05:) General: Alert and oriented, [...] RLE weakness, uses walker. Integumentary: Warm, Dry, [place]. Neurologic: Alert, Oriented. Psychiatric: Cooperative, Appropriate mood [...]
--- OUTSIDE RECORDS SUMMARY | 2025-09-06 08:09 | XMS_ITS | Clinical Summary ---
Author Organization [facility] , [facility] Address [address] [place] [address] Phone Care Team Providers Care Beater Out Name Role Phone ROMÁN THOMPSON, BRENDON Primary Care Provider [phone] Damien THOMPSON, Molly Win Unavailable [phone] Reason for Visit and Chief Complaint The Chief Complaint is: left knee pain Problems Includes: Problems addressed during this encounter and other active Problems All Visits Onset Date Resolved Date Provider Condition S tatus Joint Pain Left Knee 02/14/2023 Shahbaz palumbo PA-C Active Last Documented On 3 1:10PM ; [facility] Joint Pain Hip Right 07/02/2018 Roque Calvillo MD Active Last Documented On 8 1:54PM ; [facility] Joint Pain Right Knee 01/09/2015 Molly kc MD Active Last Documented On 5 10:52AM ; [facility], [facility] Plan of Treatment Fall Risk Assessment: This patient has been [...] with the patient. - Last Documented On 01/29/2024 4:30PM ; [facility] Patient presents today for evaluation of right hip pain, stiffness that has become rather severe over the last 3 weeks. She is presenting today after a visit to the ER for severe right hip pain. She is having severe difficulty with weight-bearing, standing. She has severe bilateral knee DJD [id number]. Patient has history of CVA x2 which patient reports is due to blood pressure issues. Diabetic, reports to be well controlled with A1c 6.4. I reviewed my impression at length with the family, they are concerned the patient's condition, difficulty with mobility, self-care, past medical history and they feel she would benefit from facility placement after total hip arthroplasty. We discussed this would require hospital surgery, hospital stay and discharge to facility afterwards. Dr. Calvillo has a lengthy hospital schedule and would recommend Dr. Crouch for performing total hip arthroplasty on this patient. Today I ordered CT to further evaluate the right hip and for surgical planning purposes. Referral made to Dr. Amado bee to discuss results, risks and benefits of potential total hip arthroplasty. - Last Documented On 01/29/2024 4:30PM ; [facility] Instructions to patient Lose weight Last Documented On 4:03PM ; [facility] Assessments Includes: Assessments from this encounter Findings - Overweight - Last Documented On 01/29/2024 4:30PM ; [facility] Moderately severe right hip DJD radiographically, severe right hip thigh pain - Last Documented On 01/29/2024 4:30PM ; [facility] History of left PREETI [address] Calvillo - Last Documented On 01/29/2024 4:30PM ; [facility] Severe bilateral knee DJD [id number] - Last Documented On 01/29/2024 4:30PM ; [facility] Instructions Includes: Instructions from this encounter Instructions to patient Lose weight Last Documented On 4:03PM ; [facility] Medical Equipment - Implanted Devices Includes: Current Devices No Medical Equipment Recorded Medications Includes: Medications discussed during this encounter and other current Medications Current Medications (continue as prescribed) NIFEdipine ER 60 MG Oral Tab let Extended Release 24 Hour 08/10/2025 Provider: BRENDON FRANCE MD Diagnosis: Last Documented On 5 1:22PM By Joya Omer ; [facility] Chlorthalidone 25 MG Oral Tablet 08/10/2025 Provider : BRENDON FRANCE MD Diagnosis: Last Documented On 1:22PM By Joya Omer ; [facility] Myrbetriq 25 MG Oral Tablet Extended Release 24 Hour 08/09/2025 Provider: BRENDON FRANCE MD Diagnosis: Last Documented On 1:22PM By Joya Omer ; [facility] Insulin Aspart FlexPen 100 U NIT/ML Subcutaneous Solution Pen-injector 08/08/2025 Provider: Diagnosis: Last Documented On 1:22PM By Joya Omer ; [facility] oxyCODONE HCl 5 MG Oral Tablet 08/08/2025 Provider: BRENDON FRANCE MD Diagnosis: Last Documented On 1:22PM By Joya Omer ; [facility] RABEprazole Sodium 20 MG Ora l Tablet Delayed Release 08/08/2025 Provider: BRENDON FRANCE MD Diagnosis: Last Documented On 1:22PM By Joya Omer ; [facility] Embecta AutoShield Duo 30G X 5 MM Miscellaneous 08/08/2025 Provider: BRENDON FRANCE MD Diagnosis: Last Documented On 1:22PM By Joya Omer ; [facility], [facility] Insulin Aspart FlexPen 100 U NIT/ML Subcutaneous Solution Pen-injector 08/04/2025 Provider: Diagnosis: Last Documented On 1:22PM By Joya Omer ; [facility] Methocarbamol 500 MG Oral Tablet 08/04/2025 Provider : BRENDON FRANCE MD Diagnosis: Last Documented On 1:22PM By Joya Omer ; [facility] Clopidogrel Bisulfate 75 MG Oral Tablet 08/03/2025 Geoff chandler: BRENDON FRANCE MD Diagnosis: Last Documented On 1:22PM By Joya Omer ; [facility] DULoxetine HCl 60 MG Oral Ca psule Delayed Release Particles 08/01/2025 Provider: BRENDON FRANCE MD Diagnosis: Last Documented On 1:22PM By Joya Omer ; [facility], [facility] Metoclopramide HCl 10 MG Oral Tablet Disintegrating Provider: Diagnosis: Last Documented On 2:26PM By Isa Casarez ; [facility] Tylenol 500 mg Oral Capsule 03/03/2025 Provider: Diagnosis: Last Documented On 2:27PM By Isa Casarez ; [facility], [facility] Insulin Lispro (0.5 Unit Kimberlee l) 100 UNIT/ML Subcutaneous Solution Pen-injector 03/03/2025 Provider: Diagnosis: Last Documented On 2:28PM By Isa Casarez ; [facility], [facility] Ondansetron HCl 4 MG Oral Tablet 03/03/2025 Provider : Diagnosis: Last Documented On 2:28PM By Isa Casarez ; [facility], [facility] MiraLax 17 GM Oral Packet 03/03/2025 Provider: Diagnosis: Last Documented On 2:28PM By Isa Casarez ; [facility], [facility] NIFEdipine 10 MG Oral Capsule 03/03/2025 Provider: Diagnosis: Last Documented On 2:28PM By Isa Casarez ; [facility], [facility] Isosorbide Mononitrate ER 30 MG Oral Tablet Extended Release 24 Hour 03/03/2025 Provider: Diagnosis: Last Documented On 2:29PM By Isa Casarez ; [facility], [facility] Chlorthalidone 15 MG Oral Tablet 03/03/2025 Provider : Diagnosis: Last Documented On 2:30PM By Isa Casarez ; [facility], [facility] Adult Centrum Multi Vitamin Oral Tablet 03/03/2025 P briandader: Diagnosis: Last Documented On 2:30PM By Isa Casarez ; [facility], [facility] Carvedilol 3.125 MG Oral Tablet 03/03/2025 Provider: Diagnosis: Last Documented On 2:30PM By Isa Casarez ; [facility], [facility] Movantik 12.5 MG Oral Tablet 03/03/2025 Provider: Diagnosis: Last Documented On 2:30PM By Isa Casarez ; [facility] Bisacodyl Laxative 10 MG Rectal Suppository 03/03/2025 Provider: Diagnosis: Last Documented On 2:31PM By Isa Casarez ; [facility], [facility] Asperflex Lidocaine 4% External Cream 03/03/2025 Pro vider: Diagnosis: Last Documented On 2:31PM By Isa Casarez ; [facility], [facility] Sennosides 15 MG Oral Tablet 03/03/2025 Provider: Diagnosis: Last Documented On 2:31PM By Isa Casarez ; [facility], [facility] Dulcolax 10 MG Rectal Suppository 03/03/2025 Provide r: Diagnosis: Last Documented On 2:32PM By Isa Casarez ; [facility], [facility] Naloxone HCl 3 MG/0.1ML Nasal Liquid 03/03/2025 Prov ider: Diagnosis: Last Documented On 2:32PM By Isa Casarez ; [facility], [facility] Simethicone 125 MG Oral Capsule 03/03/2025 Provider: Diagnosis: Last Documented On 2:32PM By Isa Casarez ; [facility], [facility] GNP Loratadine 10 MG Oral Tablet 03/03/2025 Provider : Diagnosis: Last Documented On 2:26PM By Isa Casarez ; [facility], [facility] Simethicone 80 MG Oral Tablet 03/03/2025 Provider: Diagnosis: Last Documented On 2:26PM By Isa Casarez ; [facility], [facility] Mirabegron ER 25 MG Oral Tablet Extended Release 24 Ho ur 03/03/2025 Provider: Diagnosis: Last Documented On 2:25PM By Isa Casarez ; [facility], [facility] Gabapentin 300 MG Oral Capsule 03/03/2025 Provider: Diagnosis: Last Documented On 2:25PM By Isa Casarez ; [facility], [facility] Past Medications on file Pensaid Diclofenac Sodium 1.5% Xena w/w EX SOLN 02/28/2010 - 03/30/2010 Provider: Molly bradford MD Diagnosis: apply 10 drops to affected area bh Last Documented On 0 11:39AM By Silva 1 User ; [facility] Voltaren Gel 1% EX GEL 12/06/2009 - 01/05/2010 Provide r: Molly Quezada MD Diagnosis: apply 4 grams to affected area 4 times per day/a b Last Documented On 0 3:59PM By Silva 3 User ; [facility] Lortab 7.5-500 MG OR TABS 10/04/2009 - 10/09/2009 Prov ider: Molly Quezada MD Diagnosis: as needed for painbh Last Documented On 9 8:43AM By Silva 2 User ; [facility] Arixtra 2.5 MG/0.5ML SC SOLN 06/21/2009 - 07/12/2009 P rovider: Molly Quezada MD Diagnosis: bh Last Documented On 9 2:34PM By Silva 1 User ; [facility] NOTE EX MISC 05/11/2009 - 05/12/2009 Provider: Ioana Quezada MD Diagnosis: faxed prior auth form back t o [employer] at [phone]//bh Last Documented On 9 9:47AM By Sirena Huddleston ; [facility], [facility] Flector Patch 1.3% PTCH 05/10/2009 - 06/09/2009 Provid er: Molly Quezada MD Diagnosis: apply patch q12hrs Last Documented On 9 3:18PM By Silva 4 User ; [facility], [facility] Phenergan 25 MG OR TABS 04/21/2009 - 05/21/2009 Provid er: Molly Quezada MD Diagnosis: bh Last Documented On 9 11:58AM By Silva 4 User ; [facility], [facility] Medications Administered Includes: Administered Medications from this encounter No Administered Medications Recorded Vital Signs Includes: Vital Signs from this encounter Vital Name 01/29/2024 04:04P Height (in) 64 Weight (lb) 260 Body Mass Index 44.6 Body Surface Area 2.2 Note: AB Last Documented: On 01/29/2024 4:04PM ; [facility], [facility] Results Includes: Results discussed during this encounter No Results Recorded For Specified Dates History of Present Illness Includes: History of Present Illness from this encounter HPI Adrienne Savage is a 73 year old female. - Allergy list reviewed - Problem list reviewed - Medication list reviewed Social History Description Last Updated Caffeine use 04/21/2025 Last Documented On 4 4:03PM ; [facility], [facility] Tobacco non-user 11/14/2022 Last Documented On 4 4:03PM ; [facility] Not exercising regularly 02/19/2016 Last Documented On 4 4:03PM ; [facility], [facility] Smoking Status Unknown Procedures and Surgical History Includes: Procedures from this encounter Procedures Code Diagnosis Performing Provider Service L ocation Service Date use of tobacco assessment performed 1000F Last Documented On 4 4:03PM ; [facility], [facility] patient screened for future fall risk: documentation of any fall with injury in past year 1100F Last Documented On 4 4:03PM ; [facility], [facility] review of medications documented 1160F Last Documented On 4 4:04PM ; [facility], [facility] body mass index not documented contraindicated 3 008F Last Documented On 4 4:03PM ; [facility] an X-ray was performed [id number] Last Documented On 4 4:03PM ; [facility], [facility] Surgical History Last Updated History of back surgery 11/14/2022 Last Documented On 4 4:03PM ; [facility], [facility] History of History of Gallbladder 2022 Last Documented On 4 4:03PM ; [facility] History of appendectomy 02/19/2016 Last Documented On 4 4:03PM ; [facility] History of total hip replacement 016 Last Documented On 4 4:03PM ; [facility] Medical History Includes: Medical History addressed during this encounter Description Last Updated History of arthritis 11/14/2022 Last Documented On 4 4:03PM ; [facility], [facility] History of asthma 11/14/2022 Last Documented On 4 4:03PM ; [facility] History of Heartburn / Acid Reflux 11/14 Last Documented On 4 4:03PM ; [facility], [facility] History of History of Blood Clots 2022 Last Documented On 4 4:03PM ; [facility] History of Hypertension 11/14/2022 Last Documented On 4 4:03PM ; [facility] History of Stroke 11/14/2022 Last Documented On 4 4:03PM ; [facility] bilateral shoulder repair, A chilles Repair, right knee arthroscopy ~high cholesterol, heartburn, acid reflux 02/19/2016 Last Documented On 4 4:03PM ; [facility], [facility] History of acute myocardial infarction 0 02/19/2016 Last Documented On 4 4:03PM ; [facility] History of depression 02/19/2016 Last Documented On 4 4:03PM ; [facility], [facility] History of diabetes mellitus 02/19/2016 Last Documented On 4 4:03PM ; [facility], [facility] History of diverticulitis of colon 02/18 Last Documented On 4 4:03PM ; [facility], [facility] History of gastric ulcer 02/19/2016 Last Documented On 4 4:03PM ; [facility], [facility] Intermittent hypertension 02/19/2016 Last Documented On 4 4:03PM ; [facility], [facility] Family History Includes: Family History addressed during this encounter Description Last Updated stroke/seizures 02/19/2016 Last Documented On 4 4:03PM ; [facility], [facility] Family history of diabetes mellitus 02/03 Last Documented On 4 4:03PM ; [facility], [facility] Family history of heart disease 02/19/20 16 Last Documented On 4 4:03PM ; [facility], [facility] Family history of hypertension 6 Last Documented On 4 4:03PM ; [facility], [facility] Family history of osteoporosis 6 Last Documented On 4 4:03PM ; [facility] Family history of thromboembolic disease 02/19/2016 Last Documented On 4 4:03PM ; [facility] Review of Systems Includes: Review of Systems [...] and no abdominal pain. No Indigestion, no Acid Reflux, no Peptic Ulcer, no GI Stomach Bleed, and no Ulcers. Endocrine: No hot flashes, no muscle weakness, [...] Active Last Documented On 08/11/2025 1:22PM ; [facility] Note: CONGESTIVE HEART FAILURE NSAIDs Allergy HURTS STOMACH 01/09/2015 Activ e Last Documented On 08/11/2025 1:22PM ; [facility] Note: HAS ULCERS Ibuprofen Allergy Nausea, Vomiting 03/03/2025 Ac tive Last Documented On 5 1:22PM ; [facility] Encounters Encounter Provider Location Date Check-In Time Check-Out Time Diagnosis Follow Up Blaine Pop PA-C [facility] 4 3:44PM 4:21PM Overweight Insurance Includes: Active Insurance Policies Plan Name Member ID Group # Subscriber Relationship Effect joaquim Dates 1 - [facility]/MED ICA [id number] Adrienne Savage Self Clinical Notes Includes: Clinical Notes from this encounter * Progress note Date Encounter Last Documented by 01/29/2024 Follow Up Last documented on 01/29/2024; 4:30 PM, Blaine Pop PA-C; [facility], [facility] Active Problems & Conditions - Joint Pain in the Left Knee - Joint Pain in the Right Hip - Joint Pain in the Right Knee Chief Complaint The Chief Complaint is: Left knee pain. Referred Here Referred by. History of Present Illness Adrienne Savage is a 73 year old female. - Allergy list reviewed - Problem list reviewed - Medication list reviewed Current Medication - Aciphex 20 MG Oral Tablet Delayed Release use as directed 0 days, 0 refills - Cymbalta 60 MG Oral Capsule Delayed Release Particles use as directed 0 days, 0 refills - diazePAM 10 MG Rectal Gel use as directed 0 days, 0 refills - Ezetimibe-Atorvastatin 10-10 MG Oral Tablet 0 days, 0 refills - Fluticasone Furoate 27.5 MCG/SPRAY Nasal Suspension 0 days, 0 refills - Gemtesa 75 MG Oral Tablet take as directed 0 days, 0 refills - HYDROcodone-Acetaminophen 10-300 MG/15ML Oral Solution take as directed 0 days, 0 refills - Klor-Con M20 20 MEQ Oral Tablet Extended Release take as directed 0 days, 0 refills - Lantus 100 UNIT/ML Subcutaneous Solution 0 days, 0 refills - Lasix 40 MG Oral Tablet 0 days, 0 refills - Lisinopril 10 MG Oral Tablet 0 days, 0 refills - Metoprolol Succinate ER 25 MG Oral Tablet Extended Release 24 Hour take as directed 0 days, 0 refills - Movantik 12.5 MG Oral Tablet use as directed 0 days, 0 refills - NIFEdipine ER Osmotic Release 90 MG Oral Tablet Extended Release 24 Hour take as directed 0 days, 0 refills - Plavix 300 MG Oral Tablet 0 days, 0 refills - traMADol HCl 50 MG Oral Tablet take as directed 0 [...] surgery - Total hip replacement Social History Caffeine use: Caffeine use. Tobacco use: Tobacco non-user. Habits: Not exercising regularly. Allergies - NSAIDs Reaction: HURTS STOMACH - OTHER Reaction: ADVANDA Family History Heart disease Stroke/seizures Systemic hypertension Thromboembolic disease Osteoporosis Diabetes [...] and no abdominal pain. No Indigestion, no Acid Reflux, no Peptic Ulcer, no GI Stomach Bleed, and no Ulcers. Endocrine: No hot flashes, no muscle weakness, [...] allergic reaction. Physical Findings - Vitals taken 01/29/2024 04:04 pm AB Height 64 in Weight 260 lbs Body Mass Index 44.6 kg/m2 Body Surface Area 2.2 m2 Patient alert and oriented x3 Obese Presents in wheelchair Refuses to stand up and get on table for exam today Fires TA gastroc and quadriceps Hip flexion, rotation severely reproduces pain Sensation intact to light touch distally Neurovascularly baseline Tests Three-view x-ray right hip taken today demonstrates what appears to be moderately severe right hip DJD with moderate to large osteophyte formation inferiorly. Details of remaining joint space difficult to assess due to soft tissue shadow patient has morbid obesity Assessment - Overweight Moderately severe right hip DJD radiographically, severe right hip thigh pain History of left PREETI [address] Calvillo Severe bilateral knee DJD [id number] Previous Tests Imaging: X-Ray: An X-ray was performed. Counseling/Education - Lose weight Plan Fall Risk Assessment: This patient has been [...] patient. Patient presents today for evaluation of right hip pain, stiffness that has become rather severe over the last 3 weeks. She is presenting today after a visit to the ER for severe right hip pain. She is having severe difficulty with weight-bearing, standing. She has severe bilateral knee DJD [id number]. Patient has history of CVA x2 which patient reports is due to blood pressure issues. Diabetic, reports to be well controlled with A1c 6.4. I reviewed my impression at length with the family, they are concerned the patient's condition, difficulty with mobility, self-care, past medical history and they feel she would benefit from facility placement after total hip arthroplasty. We discussed this would require hospital surgery, hospital stay and discharge to facility afterwards. Dr. Calvillo has a lengthy hospital schedule and would recommend Dr. Crouch for performing total hip arthroplasty on this patient. Today I ordered CT to further evaluate the right hip and for surgical planning purposes. Referral made to Dr. Amado bee to discuss results, risks and benefits of potential total hip arthroplasty. Notes This dictation was done with voice recognition software and may contain errors and omissions. Practice Management Use of tobacco assessment performed and patient screened for future fall risk documentation of any fall with injury in past year Review of medications documented; Body mass index not documented contraindicated.
--- OUTSIDE RECORDS SUMMARY | 2025-09-06 08:09 | XMS_ITS | Encounter Summary ---
Author Organization [employer] ([place], [place], [place], [place], [place]) Address [address] [place] [address] Care Team Providers Care Steam Presser Name Role Phone Unavailable Primary Care Provider Unavailabl e Encounter Details Date Type Department Care Team (Late st Contact Info) Description 07/15/2019 Transcribed Document [facility] [place] [address] [place] [address] ProviderChano MD [address] [place], [place] [id number] Social History Tobacco Use Types Packs/Day Years [...]
--- OUTSIDE RECORDS SUMMARY | 2025-09-06 08:09 | XMS_ITS | Encounter Summary ---
Author Organization [employer] ([place], [place], [place], [place], [place]) Address [address] [place] [address] Care Team Providers Care Appeals Coordinator Name Role Phone Unavailable Primary Care Provider Unavailabl e Encounter Details Date Type Department Care Team (Late st Contact Info) Description 07/16/2019 Transcribed Document [facility] [place] [facility] [place] [address] ProviderChano MD [facility] [place] [id number] Social History Tobacco Use Types Packs/Day Years [...] Result Date/Time Device Comment 1 Notified Nurse RBHollis 07/16/2019 05:10 EDT Device Comment 1 Notified Nurse RBHollis 07/15/2019 20:16 EDT Device Comment 1 Protocols Followed 07/15/2019 15:12 EDT Device Comment 1 Protocols Followed 07/15/2019 10:45 EDT Glucose POC2 216 mg/dL (High) 07/16/2019 05:10 EDT Glucose POC2 220 mg/dL (High) 07/15/2019 20:16 EDT Glucose POC2 242 mg/dL (High) 07/15/2019 15:12 EDT Glucose POC2 332 mg/dL (High) 07/15/2019 10:45 EDT documented in this encounter Plan of Treatment Not on file documented as of this encounter Visit Diagnoses Not on filedocumented in this encounter
--- OUTSIDE RECORDS SUMMARY | 2025-09-06 08:09 | XMS_ITS | Encounter Summary ---
Author Organization [employer] ([place], [place], [place], [place], [place]) Address [address] [place] [address] Care Team Providers Care Personnel Manager Name Role Phone Unavailable Primary Care Provider Unavailabl e Encounter Details Date Type Department Care Team (Late st Contact Info) Description 07/14/2019 Transcribed Document [facility] [place] Family Medicine [address] [place] [address] ProviderChano MD [address] [place], [place] [id number] Social History Tobacco Use Types Packs/Day Years Used Date Smoking Tobacco: Never Assessed Comments Unknown Sex and Gender Information Value Date Recorded Sex Assigned at Not on file Legal Sex Female 2:07 PM CDT Gender Identity Not on file Sexual Orientation Not on file documented as of this encounter Miscellaneous Notes * Cerner Conversion Note - Historical ProviderMD - 07/14/2019 2:00 AM CDT Thoracic Surgeon Details Entered On: 07/14/2019 2:28 EDT Performed [...]
--- OUTSIDE RECORDS SUMMARY | 2025-09-06 08:09 | XMS_ITS ---
Care Plan - [facility], [facility] Created on: September 06, 2025 Adrienne Savage : 1950 Sex: Female Author Organization [facility] Address [address] [place] [address] Phone Care Team Providers Care Clinical Dietetic Technician Name Role Phone ROMÁN THOMPSON, BRENDON Primary Care Provider [phone] Damien THOMPSON, Molly Win Unavailable [phone]
--- OUTSIDE RECORDS SUMMARY | 2025-09-06 08:09 | XMS_ITS | Encounter Summary ---
Author Organization [employer] ([place], [place], [place], [place]) Address [address] [place] [address] Care Team Providers Care Jockey'S Agent Name Role Phone Unavailable Primary Care Provider Unavailabl e Encounter Details Date Type Department Care Team (Late st Contact Info) Description 07/15/2019 Transcribed Document [facility] [place] Family Medicine [address] [place] [address] ProviderChano MD [address] [place], [place] [id number] Social History Tobacco Use Types Packs/Day Years [...] On: 07/15/2019 13:59 EDT by HORACIO ACHARYA RN-Oil Well ShooterHealthcare Consultant Progress Note Discharge Arrangements : Patient [...] Behavorial or psychiatric issues, Caregiver concerns HORACIO ACHAYRA RN-Oil Well Shooter - 07/15/2019 13:59 EDT Narrative Progress Note Narrative Progress Note : Santi declined admission to their psych unit. No word from [facility]. Met with pt's daughter and had [...] her CVA 7yrs ago and worked at [employer] and [employer]. He states he does not want her going to those places as she kows people there. He agrees to referrals to [facility] and [facility] inpatient psych units. Referral sent and spoke to JUSTA Perez at [facility] and Royce RN at [facility]. CM will continue to follow. HORACIO ACHARYA RN-Oil Well Shooter - 07/14/19 13:36:43 Dr. Valdez consult this [...] CM will continue to follow. HORACIO ACHARYA RN-Oil Well Shooter - 07/13/19 17:41:20 psych consult referral faxed to Dr. Valdez's office to assess for psychosis. SANJIV VOGT, EDISON-Oil Well Shooter - 07/11/19 16:14:26 HORACIO ACHARYA RN-Oil Well Shooter - 07/15/2019 13:59 EDT documented in this encounter Plan of Treatment Not on file documented as of this encounter Visit Diagnoses Not on filedocumented in this encounter
--- OUTSIDE RECORDS SUMMARY | 2025-09-06 08:10 | XMS_ITS | Encounter Summary ---
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 [...] bedside table. RN came to room with special agent in charge to assist to bathroom and pt refused. [...] Atkins Rn-Flex Team - 07/14/2019 5:32 EDT Electronically signed by Summer [facility] Conversion Home Health Travel Pt Cerner at 01/23/2023 1:23 PM CDT documented in this encounter Plan of Treatment Not on file documented as of this encounter Visit Diagnoses Not on filedocumented in this encounter
--- OUTSIDE RECORDS SUMMARY | 2025-09-06 08:10 | XMS_ITS | Encounter Summary ---
Author Organization [employer] ([place], [place], [place], [place], [place]) Address [address] [place] [address] Care Team Providers Care Polysilicon Preparation Worker Name Role Phone Unavailable Primary Care Provider Unavailabl e Encounter Details Date Type Department Care Team (Late st Contact Info) Description 07/13/2019 Transcribed Document [facility] [place] Family Medicine Replaced by [facility] [place] [address] ProviderChano MD [address] [place] [id number] Social History Tobacco Use Types Packs/Day Years [...] epithelial cells. Urine culture was positive for 10???[id number] CFU/mL. CT of the L-spine was negative. [...] or confusion. ROS and hx discussed with [id number], has had ceofusion and fever last 2 [...] cefTRIAXone (Rocephin) - 2 Gram, IV Piggyback, [id number], infuse over 30 Minute(s), Routine vancomycin + Sodium Chloride 0.9% intravenous solution 250 m - 1,500 mg, IV Piggyback, [id number], infuse over 60 Minute(s) Anticoagulant enoxaparin (Lovenox) [...] fluticasone nasal (Flonase) - 1 Puff, Nasal, [place], Daily, Routine Pain Meds morphine - 2 [...] 97.9 (JUL 13 11:00) 97.9 (JUL 13 11:) 98 (JUL 12:42) Apical HR 82 (JUL 12 21:47) 82 (JUL 12 21:47) 82 (JUL 12 21:47) Mon HR 86 (JUL 13 11:00) 65 (JUL 13 02:19) 86 (JUL 13 11:00) Resp Rate 16 (JUL 13 11:00) 14 (JUL 12 21:42) 16 (JUL 13:19) SBP H 192 (JUL [...] (Last four charted values) WBC 8.4 (OCT 07) 8.2 (OCT 06) 7.9 (OCT 04) 9.1 (OCT 03) HB 11.5 (OCT 07) 11.5 (OCT 06) 12.6 (OCT 04) 12.0 (OCT 03) HCT 35.7 (OCT 07) 35.6 (OCT 06) 39.8 (OCT 04) 37.3 (OCT 03) Plt 263 (JUL 07) 230 (JUL 06) 267 (JUL 04) 268 (JUL 03) Na 142 (OCT 07) 140 (OCT 06) 142 (OCT 04) 141 (JUL 03) K 3.8 (OCT 07) 4.2 (OCT 06) 4.4 (OCT 04) 3.9 (JUL 03) Cl 104 (JUL 07) 104 (JUL 06) 106 (JUL 04) 105 (JUL 03) CO2 31 (JUL 07) 31 (JUL 06) 27 (JUL 04) 30 (JUL 03) BUN 14 (JUL 07) 14 (JUL 11) 19 (JUL 09) 20 [...] T Bili 0.3 (JUL 07) 0.3 (JUL 04) 0.4 (JUL 03) PTN 6.7 (OCT 07) 7.1 (OCT 04) 7.0 (OCT 03) ALB L 2.8 (OCT 07) L 3.1 (OCT 04) L 3.2 (JUL 03) Micro: Rad:No [...] status issues from infection? Electronically signed by Summer [facility] Conversion Housefellow Cerner at 01/23/2023 1:40 PM CDT documented in this encounter Plan of Treatment Not on file documented as of this encounter Visit Diagnoses Not on filedocumented in this encounter
--- OUTSIDE RECORDS SUMMARY | 2025-09-06 08:10 | XMS_ITS | Encounter Summary ---
Author Organization [employer] ([place], [place], [place], [place], [place]) Address [address] [place] [address] Care Team Providers Care Landscape Architect And Planner Name Role Phone Unavailable Primary Care Provider Unavailabl e Encounter Details Date Type Department Care Team (Late st Contact Info) Description 07/14/2019 Transcribed Document [facility] [place] [facility] [place] [address] ProviderChano MD [facility] [place], [place] [phone] Social History Tobacco Use Types Packs/Day Years Used Date Smoking Tobacco: Never Assessed Comments Unknown Sex and Gender Information Value Date Recorded Sex Assigned at Not on file Legal Sex Female 2:07 PM CDT Gender Identity Not on file Sexual Orientation Not on file documented as of this encounter Miscellaneous Notes * Cerner Conversion Note - Historical ProviderMD - 07/14/2019 4:17 PM CDT Patient: [...] (JUL 03) Glu R H 202 (JUL 12) H 248 (JUL 06) H 207 (JUL 09) H 153 (JUL 08) Ca 9.0 (JUL 07) 9.0 (JUL 06) 9.4 (JUL 09) 9.7 (JUL 03) PT 9.9 (JUL 09) [...] HR 85 (JUL 14 10:40) 64 (JUL 14:19) 86 (JUL 13 18:40) Resp Rate 18 [...] No growth 10/4 Fungal Cx: No growth 10/ AFB: No growth / Anaerobic Cx: No growth 10/3 Urine Cx: Suggested contamination Vanc levels: 07/14 @1444 Vancomycin trough: 8.3 on Vancomycin 1500mg IV Q24H A/P: 1) Patient's trough supratherapeutic per ID recs at 8.3 2) Based on narrow parameter will continue dose at this time 3) Draw Vancomycin trough on 07/16 @1500 -Hold for trough >20. 4) Will continue to dose and monitor as needed James HudsonD PGY-1 Resident Intern Pager: [phone] Electronically signed by Summer [facility] Conversion Human Relations Professor Cerner at 01/23/2023 1:19 PM CDT documented in this encounter Plan of Treatment Not on file documented as of this encounter Visit Diagnoses Not on filedocumented in this encounter
--- OUTSIDE RECORDS SUMMARY | 2025-09-06 08:10 | XMS_ITS | Clinical Summary ---
Author Organization [facility] Address [address] [place] [address] Care Team Providers Care Full Time Staff Interpreter Name Role Phone Mumtaz Colon MD Primary Care Provider [phone] Allergies Active Allergy Reactions Criticality Noted Date [...] and Family Not on file 05/25/2024 Attends Christianity Services Not on file 05/25 Active Member of Clubs or Organizations Not on f ile 05/25/2024 Attends Club or Organization Meetings Not on kristin e 05/25/2024 Are you , , di vorced, , never , or living with a partner? 05/25/2024 [facility] - Occupational Stress Questionnaire Answer [...] place to sleep or slept in a group home (including now)? No 06/04/2024 Housing Stability Vital Sign Answer Matt e Recorded In the last 12 months, was t here a time when you were not able to pay the mortgage or rent on time? No 10/26/2024 In the past 12 months, how m any times have you moved where you were living? 1 10/26/2024 At any time in the past 12 m [facility], were you homeless or living in a group home (including now)? No 10/26/2024 CAGE ASSESSMENT Answer [...] drink first t angela in the morning (EYE-ADULT DAYCARE COORDINATOR) to steady your nerves or to get [...] Years (1 of 2 - PCV) 1968 [facility]-DTaP,Tdap,and Td Vaccines (1 - Tdap) 12/14/1996 12/13/1996 [facility]-Zoster Vaccines (2 of 2) 12/16/2023 10/21/2023 [facility]-Diabetes: Hemoglobin A1C 01/20/2025 10/21/2024, 05/14/2022, 08/04/2019 [facility]- SDOH Screenings 04/25/2025 [facility]-Adult SDOH Screenings 04/25/2025 10/26/2024 DYA-HBJIA-96 Vaccine ( - 2024- season) 2025 09/24/2021, 11/29/2020, 11/04/2020 [...] 9.2(H) <5.7 % 10/21/2024 11:35 PM EST [facility] Blood Venous blood specimen / Unknown Venipuncture / Unknown 10/21/2024 9:55 PM EST 10/21/2024 10:08 PM EST Narrative [facility] - 10/21/2024 11:35 PM EST HA1C Interpretive Data: Diagnosis of Diabetes: Diabetic > or = 6.5% Pre-diabetic 5.7 to 6.4% Non-diabetic < or = 5.6% Glycemic Targets for Type I and Type II Diabetics: Non- Adults <7.0% Adults <6.0% Children and Adolescents <7.5% Source: [place] [employer]. Standards of medical care in diabetes,2017. Diabetes Care.2017:40 (suppl 1):S1-S135. HbA1c assay performed by an ion-exchange chromatography method that is certified traceable to the DCCT. us Rubin Graham PUBLIC HEALTH DIETITIAN, DNP LAB BLOOD ORDERABLES Fin al Result [facility] [address] [place] [address] * Hepatitis C Antibody - ED (06/01/2024 9:33 PM EDT) Hepatitis C Antibody Negative Negative 06/01/2024 10:45 PM EDT [facility] Blood Venous blood specimen / Unknown Venipuncture / Unknown 06/01/2024 9:33 PM EDT 06/01/2024 9:50 PM EDT us [address] MD LAB BLOOD ORDERABLES Final [facility] [address] [place] [address] from Last 3 Months or Most Recently Relevant to Health Maintenance Insurance [facility] [place] [address] Advance Directives * Full Code (Latest Code [...] Patient has decision-making capacity? Yes Care Teams Full Time Staff Interpreter Relationship Specialty Start Date End Date Mumtaz Colon MD [address] [place] [address] PCP - General Internal Medicine 09/13/22
--- OUTSIDE RECORDS SUMMARY | 2025-09-06 08:10 | XMS_ITS | Encounter Summary ---
Author Organization [employer] ([place], [place], [place], [place], [place]) Address [address] [place] [address] Care Team Providers Care Parquet Floor Layer'S Helper Name Role Phone Unavailable Primary Care Provider Unavailabl e Encounter Details Date Type Department Care Team (Late st Contact Info) Description 07/14/2019 Transcribed Document [facility] [place] [address] [place] [address] ProviderChano MD [address], [place] [phone] Social History Tobacco Use Types Packs/Day Years [...] Performed On: 07/14/2019 13:50 EDT by Delon Sams, PT Attempt to Treat Unable to Treat Due To : Patient Unavailable Inability to Treat Comment : Pt up in restroom. Will follow up as time permits. Delon Sams, PT - 07/15/2019 8:18 EDT Electronically signed by Julian Wheeler Conversion Supervisor Computer Operations Cerner at 01/23/2023 1:19 PM CDT documented in this encounter Plan of Treatment Not on file documented as of this encounter Visit Diagnoses Not on filedocumented in this encounter
--- OUTSIDE RECORDS SUMMARY | 2025-09-06 08:10 | XMS_ITS | Encounter Summary ---
Author Organization [employer] ([place], [place], [place], [place], [place]) Address [address] [place] [address] Care Team Providers Care Electronic Systems Security Assessment Name Role Phone Unavailable Primary Care Provider Unavailabl e Encounter Details Date Type Department Care Team (Late st Contact Info) Description 07/14/2019 Transcribed Document [facility] [place] [facility] [place] [address] ProviderChano MD [facility] [place], [place] [id number] Social History Tobacco Use Types Packs/Day Years [...]
--- OUTSIDE RECORDS SUMMARY | 2025-09-06 08:10 | XMS_ITS | Encounter Summary ---
Author Organization [employer] ([place], [place], [place], [place], [place]) Address [address] [place] [address] Care Team Providers Care Bank Clerk Name Role Phone Unavailable Primary Care Provider Unavailabl e Encounter Details Date Type Department Care Team (Late st Contact Info) Description 03/25/[address] [facility] [place] [facility] [place] [address] ProviderChano MD [address] [place], [place] [phone] Social History Tobacco Use Types Packs/Day Years [...] Communication Barrier : None Primary Language : British Any Spiritual/Cultural Needs or Requests : No Currently in Unsafe Situation : No MIGEL ADNREW Rn - 03/25/2021 23:05 EDT Social Habits [...] TRINIDAD, ED Nurse) Employment/School: Retired, Previous employment/school: [employer]. (Last Updated: 07/17/2014 00:15:13 EDT by KATIE TRINIDAD, ED Nurse) documented in this encounter Plan of Treatment Not on file documented as of this encounter Visit Diagnoses Not on filedocumented in this encounter
--- OUTSIDE RECORDS SUMMARY | 2025-09-06 08:10 | XMS_ITS | Encounter Summary ---
Author Organization [employer] ([place], [place], [place], [place], [place]) Address [address] [place] [address] Care Team Providers Care Dough Puncher Name Role Phone Unavailable Primary Care Provider Unavailabl e Encounter Details Date Type Department Care Team (Late st Contact Info) Description 03/26/2021 Transcribed Document [facility] [place] Family Medicine [facility] [place] [address] ProviderChano MD [address] [place] [address] Social History Tobacco Use Types [...] Gatica MD - 03/26/2021 1:59 AM CDT [facility] [place] [address] LUDY ANTONIO MILDRED :1950 Visit [...] Within 2 to 3 days Where: [address] [place] [address]- Business (1) Allergies Avandia (CHF) NSAIDs aspirin fenofibrate metFORMIN statins (Fenofibrate, Fenofibrate) Immunizations This Visit No Immunizations Found Medications What How Much When Instructions Next Dose bisacodyl (bisacodyl 10 mg rectal suppository) 1 Suppository(ies) Rectal Every Day Duration: 3 Day(s) Pickup at [facility]/pharmacy #[id number] cephalexin (Keflex 500 mg oral capsule) 1 Capsule(s) Oral Four Times A Day Duration: 7 Day(s) Pickup at [facility]/pharmacy #[id number] acetaminophen-hydrocodone (acetaminophen-HYDROcodone 325 mg-10 mg oral [...] (Flonase 0.05 mg/ inh nasal spray) 2 Redig(s) Nasal Every Day fluticasone-salmeterol (Advair Diskus 250 [...] for as needed for pain Pharmacy Information [facility]/pharmacy #[id number]: [address] [place], [place] [phone] The home medications listed are only as [...] range between ( 11.7 and 14.9 ) Pratt Percent Man: 3 % -- Normal range [...] ) Urine Bilirubin Dipstick: Negative Urine Specific [place]: 1.020 -- Normal range between ( 1.005 [...] provider. This is important. Medicines ??? Take [id number] and prescription medicines only as told by [...] provider. Document Revised: 06/02/2019 Document Reviewed: 06/02/2019 [employer] Patient Education ?? 2020 [employer] Constipation, Adult Constipation is when a [...] in fiber, or overly processed, such as serbian fries, hamburgers, cookies, candies, and soda. ??? Drink enough fluid to keep your urine clear or pale yellow. General instructions ??? Exercise regularly or as told by your health care provider. ??? Go to the restroom when you have the urge to go. Do not hold it in. ??? Take [id number] and prescription medicines only as told by [...] provider. Document Revised: 09/04/2018 Document Reviewed: 03/12/2017 [employer] Patient Education ?? 2020 [employer]. Emergency Awareness and Preventative Care STROKE is [...] Assistance with quitting is available by contacting 8-214-CXYNSynergosNOW. This is a free resource providing counseling, [...] emergency, radiology, or pathology physicians. Patient Name:LUDY ATNONIO I have received this information and was given the opportunity to ask questions. Patient/Scheduling Clerk Name: Patient/Scheduling Clerk Signature: Relationship to Patient: Clinician/Hospital Scheduling Clerk Signature: Please Provide a Telephone Number Where You Can Be Reached: Is it Permissible To Leave a Message? Date: Electronically signed by Summer [facility] Conversion Pocket Builder Wade at 01/23/2023 1:18 PM CDT documented in this encounter Plan of Treatment Not on file documented as of this encounter Visit Diagnoses Not on filedocumented in this encounter
--- OUTSIDE RECORDS SUMMARY | 2025-09-06 08:10 | XMS_ITS | Encounter Summary ---
Author Organization [employer] ([place], [place], [place], [place], [place]) Address [address] [place] [address] Care Team Providers Care Foreign Policy Officer Name Role Phone Unavailable Primary Care Provider Unavailabl e Encounter Details Date Type Department Care Team (Late st Contact Info) Description 03/26/2021 Transcribed Document [facility] [place] Family Medicine [facility] [place] [address] ProviderChano MD [address] [place] [id number] Social History Tobacco Use Types Packs/Day Years [...] 03/26/2021 1:53 AM CDT Electronically signed by Summer [facility] Conversion Enterprise Records Analyst Cerner at 01/23/2023 1:26 PM CDT documented in this encounter Plan of Treatment Not on file documented as of this encounter Visit Diagnoses Not on filedocumented in this encounter
--- OUTSIDE RECORDS SUMMARY | 2025-09-06 08:10 | XMS_ITS | Encounter Summary ---
Author Organization [employer] ([place], [place], [place], [place], [place]) Address [address] [place] [address] Care Team Providers Care Leaf Tinner Name Role Phone Unavailable Primary Care Provider Unavailabl e Encounter Details Date Type Department Care Team (Late st Contact Info) Description 07/14/2019 Transcribed Document [facility] [place] Family Medicine [address] [place] [address] ProviderChano MD [address] [place], [place] [phone] Social History Tobacco Use Types Packs/Day Years [...] On: 07/14/2019 13:32 EDT by HORACIO ACHARYA RN-HoisterRegistered Dietetic Technician Progress Note Discharge Arrangements : Patient Post-Acute [...] Meeting Medical Necessity : Yes HORACIO ACHARYA RN-Hoister - 07/14/2019 13:32 EDT Narrative Progress Note Narrative Progress Note : Spoke to pt's spouse Kian on the phone today. 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 He states he does not want her going to those places as she kows people there. He agrees to referrals to [facility] and [facility] inpatient psych units. Referral sent and spoke to JUSTA Perez at [facility] and Royce RN at [facility]. CM will continue to follow. Historical Progress [...] CM will continue to follow. HORACIO ACHARYA RN-Hoister - 07/13/19 17:41:20 psych consult referral faxed to Dr. Valdez's office to assess for psychosis. SANJIV VOGT RN-Hoister - 07/11/19 16:14:26 HORACIO ACHARYA RN-Hoister - 07/14/2019 13:32 EDT Electronically signed by Julian Wheeler Conversion Crisis Mental Health Therapist Cerner at 01/23/2023 1:30 PM CDT documented in this encounter Plan of Treatment Not on file documented as of this encounter Visit Diagnoses Not on filedocumented in this encounter
--- OUTSIDE RECORDS SUMMARY | 2025-09-06 08:10 | XMS_ITS | Encounter Summary ---
Author Organization [employer] ([place], [place], [place], [place], [place]) Address [address] [place] [address] Care Team Providers Care Trade Mark Examiner Name Role Phone Unavailable Primary Care Provider Unavailabl e Encounter Details Date Type Department Care Team (Late st Contact Info) Description 07/13/2019 Transcribed Document [facility] [place] [address] [place] [address] ProviderChano MD [address] [place], [place] [phone] Social History Tobacco Use Types Packs/Day Years [...] - 07/13/2019 18:47 EDT Electronically signed by Summer [facility] Conversion Lamp Mechanic Cerner at 01/23/2023 1:39 PM CDT documented in this encounter Plan of Treatment Not on file documented as of this encounter Visit Diagnoses Not on filedocumented in this encounter
--- OUTSIDE RECORDS SUMMARY | 2025-09-06 08:10 | XMS_ITS | Encounter Summary ---
Author Organization [employer] ([place], [place], [place], [place], [place]) Address [address] [place] [address] Care Team Providers Care Projection Engineer Name Role Phone Unavailable Primary Care Provider Unavailabl e Encounter Details Date Type Department Care Team (Late st Contact Info) Description 10/05/2019 Transcribed Document [facility] [place] [address] [place] [address] ProviderChano MD [address], [place] [id number] Social History Tobacco Use Types Packs/Day Years Used Date Smoking Tobacco: Never Assessed Comments Unknown Sex and Gender Information Value Date Recorded Sex Assigned at Not on file Legal Sex Female 2:07 PM CDT Gender Identity Not on file Sexual Orientation Not on file documented as of this encounter Miscellaneous Notes * Cerner Conversion Note - Chano ProviderMD - 10/05/2019 6:04 PM FIREWORKS ASSEMBLER ED Assessment Entered On: 10/05/2019 20:58 EST [...] Communication Barrier : None Primary Language : Croatian Any Spiritual/Cultural Needs or Requests : No [...] assistance. (Last Updated: 07/17/2014 00:15:22 EDT by KAITE TRINIDAD, ED Nurse) Employment/School: Retired, Previous employment/school: [employer]. (Last Updated: 07/17/2014 00:15:13 EDT by KATIE TRINIDAD, REINA Nurse) EENT Assessment EENT Assessment WDL : WDL SRINIVAS RODRIGES RN-Resource - 10/05/2019 20:42 EST Cardiovascular ASMT, ED Cardiovascular Assessment WDL : WDL with exceptions Cardiovascular Symptoms : Chest discomfort at rest Nail Bed Color : [place] Chest Pain : Yes SRINIVAS RODRIGES RN-Resource - 10/05/2019 20:42 EST Pulses Grid Posterior Tibial Pulse, Left : 2+ normal Posterior Tibial Pulse, Right : 2+ normal Radial Pulse, Left : 2+ normal Radial Pulse, Right : 2+ normal SRINIVAS RODRIGES RN-Resource - 10/05/2019 20:42 EST Respiratory Respiratory Assessment WDL : WDL Cough : None SRINIVAS RODRIGES RN-Resource - [...] Genitourinary Assessment, ED Genitourinary Assessment WDL : [facility] with exceptions Genitourinary Symptoms : Burning with urination SRINIVAS RODRIGES RN-Resource - 10/05/2019 20:42 EST Musculoskeletal Musculoskeletal Assessment WDL : [facility] SRINIVAS RODRIGES RN-Resource - 10/05/2019 20:42 EST Integumentary Assessment Skin Temperature : Warm Integumentary Assessment WDL : [facility] SRINIVAS RODRIGES RN-Resource - 10/05/2019 [...] form. Electronically signed by Julian Wheeler Conversion Printer Floor Covering Assistant Cerner at 01/23/2023 1:37 PM CDT documented in this encounter Plan of Treatment Not on file documented as of this encounter Visit Diagnoses Not on filedocumented in this encounter
--- OUTSIDE RECORDS SUMMARY | 2025-09-06 08:10 | XMS_ITS | Encounter Summary ---
Author Organization [employer] ([place], [place], [place], [place], [place]) Address [address] [place] [address] Care Team Providers Care Screen Repairer Crusher Name Role Phone Unavailable Primary Care Provider Unavailabl e Encounter Details Date Type Department Care Team (Late st Contact Info) Description 03/26/2021 Transcribed Document [facility] [place] [facility] [place] [facility] [place] [address] ProviderChano MD [address] [place] [address] Social History Tobacco Use Types [...] Gatica MD - 03/26/2021 1:55 AM CDT [facility] [place] [address] LUDY ANTONIO MILDRED :1950 Visit [...] Within 2 to 3 days Where: [address] [place] [address]- Business (1) Allergies Avandia (CHF) NSAIDs aspirin fenofibrate metFORMIN statins (Fenofibrate, Fenofibrate) Immunizations This Visit No Immunizations Found Medications What How Much When Instructions Next Dose bisacodyl (bisacodyl 10 mg rectal suppository) 1 Suppository(ies) Rectal Every Day Duration: 3 Day(s) Pickup at [facility]/pharmacy #[id number] acetaminophen-hydrocodone (acetaminophen-HYDROcodone 325 mg-10 mg oral [...] (Flonase 0.05 mg/ inh nasal spray) 2 [place](s) Nasal Every Day fluticasone-salmeterol (Advair Diskus 250 [...] for as needed for pain Pharmacy Information [facility]/pharmacy #[id number]: [address] [place], [place] [phone] The home medications listed are only as [...] range between ( 11.7 and 14.9 ) [place] Percent Man: 3 % -- Normal range [...] ) Urine Bilirubin Dipstick: Negative Urine Specific [place]: 1.020 -- Normal range between ( 1.005 [...] provider. This is important. Medicines ??? Take eycp-aaz-hpqcnqc and prescription medicines only as told by [...] provider. Document Revised: 06/02/2019 Document Reviewed: 06/02/2019 [employer] Patient Education ?? 2020 [employer] Constipation, Adult Constipation is when a [...] in fiber, or overly processed, such as danish fries, hamburgers, cookies, candies, and soda. ??? Drink enough fluid to keep your urine clear or pale yellow. General instructions ??? Exercise regularly or as told by your health care provider. ??? Go to the restroom when you have the urge to go. Do not hold it in. ??? Take vvcl-uat-dishrku and prescription medicines only as told by [...] provider. Document Revised: 09/04/2018 Document Reviewed: 03/12/2017 [employer] Patient Education ?? 2020 [employer] Emergency Awareness and Preventative Care STROKE is [...] Assistance with quitting is available by contacting 2-301-XHBE-NOW. This is a free resource providing counseling, [...] was given the opportunity to ask questions. Patient/Advisory Software Engineer Name: Patient/Advisory Software Engineer Signature: Relationship to Patient: Clinician/Hospital Advisory Software Engineer Signature: Please Provide a Telephone Number Where You Can Be Reached: Is it Permissible To Leave a Message? Date: documented in this encounter Plan of Treatment Not on file documented as of this encounter Visit Diagnoses Not on filedocumented in this encounter
--- OUTSIDE RECORDS SUMMARY | 2025-09-06 08:10 | XMS_ITS | Encounter Summary ---
Author Organization [employer] ([place], [place], [place], [place], [place]) Address [address] [place] [address] Care Team Providers Care Tube Machine Operator Helper Name Role Phone Unavailable Primary Care Provider Unavailabl e Encounter Details Date Type Department Care Team (Late st Contact Info) Description 07/14/2019 Transcribed Document [facility] [place] [address] [place] [address] ProviderChano MD [address] [phone] Social History Tobacco Use Types Packs/Day Years [...] Arellano RN, RN - 07/14/2019 16:26 EDT Electronically signed by Summer [facility] Conversion Funeral Car Chauffeur Cerner at 01/23/2023 1:19 PM CDT documented in this encounter Plan of Treatment Not on file documented as of this encounter Visit Diagnoses Not on filedocumented in this encounter
--- OUTSIDE RECORDS SUMMARY | 2025-09-06 08:10 | XMS_ITS | Encounter Summary ---
Author Organization [employer] ([place], [place], [place], [place], [place]) Address [address] [place] [address] Care Team Providers Care Product Blending Supervisor Name Role Phone Unavailable Primary Care Provider Unavailabl e Encounter Details Date Type Department Care Team (Late st Contact Info) Description 03/26/2021 Transcribed Document [facility] [place] [facility] [place] [address] ProviderChano MD [address] [place] [id number] Social History Tobacco Use Types Packs/Day Years Used Date Smoking Tobacco: Never Assessed Comments Unknown Sex and Gender Information Value Date Recorded Sex Assigned at Not on file Legal Sex Female 2:07 PM CDT Gender Identity Not on file Sexual Orientation Not on file documented as of this encounter Miscellaneous Notes * Cerner Conversion Note - Chano ProviderMD - 03/26/2021 2:06 AM CDT ED [...] MIGEL ANDREW Rn - 03/26/2021 2:06 EDT Electronically signed by Summer [facility] Conversion Computer Support Analyst Cerner at 01/23/2023 1:20 PM CDT documented in this encounter Plan of Treatment Not on file documented as of this encounter Visit Diagnoses Not on filedocumented in this encounter
--- OUTSIDE RECORDS SUMMARY | 2025-09-06 08:10 | XMS_ITS | Encounter Summary ---
Author Organization [employer] ([place], [place], [place], [place], [place]) Address [address] [place] [address] Care Team Providers Care Plastic Molding Operator Name Role Phone Unavailable Primary Care Provider Unavailabl e Encounter Details Date Type Department Care Team (Late st Contact Info) Description 10/05/2019 Transcribed Document [facility] [place] [address] [place] [address] ProviderChano MD [address] [phone] Social History Tobacco Use Types Packs/Day Years Used Date Smoking Tobacco: Never Assessed Comments Unknown Sex and Gender Information Value Date Recorded Sex Assigned at Not on file Legal Sex Female 2:07 PM CDT Gender Identity Not on file Sexual Orientation Not on file documented as of this encounter Miscellaneous Notes * Cerner Conversion Note - Historical ProviderMD - 10/05/2019 6:11 PM NATIONAL ACCOUNTS RECRUITER Vital Signs ED Entered On: 10/05/2019 18:11 [...] 10/05/2019 18:11 EST Electronically signed by Summer [facility] Conversion Accredited Pharmacy Technician Cerner at 01/23/2023 1:31 PM CDT documented in this encounter Plan of Treatment Not on file documented as of this encounter Visit Diagnoses Not on filedocumented in this encounter
--- OUTSIDE RECORDS SUMMARY | 2025-09-06 08:10 | XMS_ITS | Encounter Summary ---
Author Organization [employer] ([place], [place], [place], [place], [place]) Address [address] [place] [address] Care Team Providers Care Agent Telegrapher Name Role Phone Unavailable Primary Care Provider Unavailabl e Encounter Details Date Type Department Care Team (Late st Contact Info) Description 03/25/2021 Transcribed Document [facility] Family Medicine [facility] [place] [address] ProviderChano MD [address] [place] [phone] Social History Tobacco Use Types Packs/Day Years [...] chew) Flonase 0.05 mg/inh nasal spray: 2 [place], Nasal, Daily, 16 Gram, 0 Refill(s) Lantus [...] and left shoulder repair. achilles repair. Appendectomy ([id number]). Cholecystectomy ([id number]). Tonsillectomy ([id number]).. Family history: No family history items have been selected or recorded.. 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 Radiology results: EXAM REQUESTED: [id number] ABDOMEN & PELVIS W/CONTRAST FACILITY: [facility] DATE: 03/25/2021 RADIOLOGIST NAME: MD Connelly [...] EDT, Discharge to: Home . Prescriptions: Prescription Entry Engineer Pharmacy: bisacodyl 10 mg rectal suppository (Prescribe): 1 Supp, Rectal, Daily, for 3 Day(s), 3 Supp, 0 Refill(s) , Prescription Entry Engineer Pharmacy: Keflex 500 mg oral capsule (Prescribe): [...]
--- OUTSIDE RECORDS SUMMARY | 2025-09-06 08:10 | XMS_ITS | Clinical Summary ---
Author Organization [facility] , [facility] Address [address] [place] [address] Phone Care Team Providers Care Technology Advisor Name Role Phone ROMÁN THOMPSON, BRENDON Primary Care Provider [phone] Damien THOMPSON, Molly Win Unavailable [phone] Reason for Visit and Chief Complaint The Chief Complaint is: Left hip pain Problems Includes: Problems addressed during this encounter and other active Problems All Visits Onset Date Resolved Date Provider Condition S tatus Joint Pain Left Knee 02/14/2023 Shahbaz Broderick on PA-C Active Last Documented On 3 1:10PM ; [facility] Joint Pain Hip Right 07/02/2018 Roque Calvillo MD Active Last Documented On 8 1:54PM ; [facility] Joint Pain Right Knee 01/09/2015 Molly kc MD Active Last Documented On 5 10:52AM ; [facility] Plan of Treatment - Patient screened for future fall risk: documentation of any fall with injury in past year - Last Documented On 04/05/2024 1:46PM ; [facility] Fall Risk Assessment: This patient has been [...] with the patient. 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 I do not think she is indicated for right total hip arthroplasty. She has multiple comorbidities that would put her at a higher risk of complications were we to proceed with a total hip arthroplasty. I suspect that her pain is likely related to her spine disease. I advised her to see a nuclear medicine specialist to potentially look into getting ESIs. I advised the patient to wean off of her narcotic pain medication and to decrease her bodyweight to help take some stress off of her joints. She will follow up with us as needed. All questions have been answered. - Last Documented On 04/05/2024 1:46PM ; [facility], [facility] Instructions Includes: Instructions from this encounter Instructions to patient Lose weight Last Documented On 4 2:26PM ; [facility] Lose weight Last Documented On 4 2:31PM ; [facility], [facility] Medical Equipment - Implanted Devices Includes: Current Devices No Medical Equipment Recorded Medications Includes: Medications discussed during this encounter and other current Medications Discontinued / Stopped on this date BRENDON FRANCE MD on 02/17/2024 valACYclovir HCl 1 GM Oral Tablet Provide r: BRENDON FRANCE MD Diagnosis: Last Documented On 4 2:08PM By Angelic LOMAX [facility], [facility] Nystatin [id number] UNIT/GM External Ointment Provider: BRENDON FRANCE MD Diagnosis: Last Documented On 4 2:08PM By Angelic [facility] HYDROcodone-Acetaminophen 5-325 MG Oral Tablet Provider: BRENDON FRANCE MD Diagnosis: Last Documented On 4 2:08PM By [facility]ic [facility] traMADol HCl 50 MG Oral Tablet Provider: Diagnosis: Last Documented On 4 2:07PM By Angelic Roebrtson ; [facility], [facility] Plavix 300 MG Oral Tablet Provider: Diagnosis: Last Documented On 4 2:07PM By Angelic Robertson ; [facility], [facility] NIFEdipine ER Osmotic Releas e 90 MG Oral Tablet Extended Release 24 Hour Provider: Diagnosis: Last Documented On 4 2:07PM By Angelic Robertson ; [facility], [facility] Movantik 12.5 MG Oral Tablet Provider: Diagnosis: Last Documented On 4 2:07PM By Angelic Robertson ; [facility], [facility] Metoprolol Succinate ER 25 M G Oral Tablet Extended Release 24 Hour Provider: Diagnosis: Last Documented On 4 2:07PM By Angelic Robertson ; [facility], [facility] Lisinopril 10 MG Oral Tablet Provider: Diagnosis: Last Documented On 4 2:07PM By Angelic Robertson ; [facility], [facility] Lasix 40 MG Oral Tablet Provider: Diagnosis: Last Documented On 4 2:07PM By Angelic Robertson ; [facility], [facility] Lantus 100 UNIT/ML Subcutaneous Solution Provider: Diagnosis: Last Documented On 4 2:07PM By Angelic Robertson ; [facility], [facility] Klor-Con M20 20 MEQ Oral Tablet Extended Release Provider: Diagnosis: Last Documented On 4 2:07PM By Angelic Robertson ; [facility], [facility] HYDROcodone-Acetaminophen 10-300 MG/15ML Oral Solution Provider: Diagnosis: Last Documented On 4 2:07PM By Angelic Robertson ; [facility], [facility] Aciphex 20 MG Oral Tablet Delayed Release Provider: Diagnosis: Last Documented On 4 2:08PM By Angelic Robertson ; [facility], [facility] Cymbalta 60 MG Oral Capsule Delayed Release Particles Provider: Diagnosis: Last Documented On 4 2:08PM By Angelic Robertson ; [facility], [facility] diazePAM 10 MG Rectal Gel Provider: Diagnosis: Last Documented On 4 2:07PM By Angelic Robertson ; [facility], [facility] Ezetimibe-Atorvastatin 10-10 MG Oral Tablet Provider: Diagnosis: Last Documented On 4 2:08PM By Angelic Robertson ; [facility], [facility] Fluticasone Furoate 27.5 MCG/SPRAY Nasal Suspension Provider: Diagnosis: Last Documented On 4 2:07PM By Angelic Robertson ; [facility], [facility] Gemtesa 75 MG Oral Tablet Provider: Diagnosis: Last Documented On 4 2:07PM By Angelic Robertson ; [facility], [facility] Current Medications (continue as prescribed) NIFEdipine ER 60 MG Oral Tab let Extended Release 24 Hour 08/10/2025 Provider: BRENDON FRANCE MD Diagnosis: Last Documented On 5 1:22PM By Joya Omer ; [facility], [facility] Chlorthalidone 25 MG Oral Tablet 08/10/2025 Provider : BRENDON FRANCE MD Diagnosis: Last Documented On 5 1:22PM By Joya Omer ; [facility], [facility] Myrbetriq 25 MG Oral Tablet Extended Release 24 Hour 08/09/2025 Provider: BRENDON FRANCE MD Diagnosis: Last Documented On 5 1:22PM By Joya Omer ; [facility], [facility] Insulin Aspart FlexPen 100 U NIT/ML Subcutaneous Solution Pen-injector 08/08/2025 Provider: Diagnosis: Last Documented On 5 1:22PM By Joya Omer ; [facility], [facility] oxyCODONE HCl 5 MG Oral Tablet 08/08/2025 Provider: BRENDON FRANCE MD Diagnosis: Last Documented On 5 1:22PM By Joya Omer ; [facility], [facility] RABEprazole Sodium 20 MG Ora l Tablet Delayed Release 08/08/2025 Provider: BRENDON FRANCE MD Diagnosis: Last Documented On 5 1:22PM By Joya Omer ; [facility], [facility] Embecta AutoShield Duo 30G X 5 MM Miscellaneous 08/08/2025 Provider: BRENDON FRANCE MD Diagnosis: Last Documented On 5 1:22PM By Joya Omer ; [facility], [facility] Insulin Aspart FlexPen 100 U NIT/ML Subcutaneous Solution Pen-injector 08/04/2025 Provider: Diagnosis: Last Documented On 1:22PM By Joya Omer ; [facility], [facility] Methocarbamol 500 MG Oral Tablet 08/04/2025 Provider : BRENDON FRANCE MD Diagnosis: Last Documented On 1:22PM By Joya Omer ; [facility], [facility] Clopidogrel Bisulfate 75 MG Oral Tablet 08/03/2025 P ramesh: BRENDON FRANCE MD Diagnosis: Last Documented On 1:22PM By Joya Omer ; [facility], [facility] DULoxetine HCl 60 MG Oral Ca psule Delayed Release Particles 08/01/2025 Provider: BRENDON FRANCE MD Diagnosis: Last Documented On 1:22PM By Joya Omer ; [facility], [facility] Metoclopramide HCl 10 MG Oral Tablet Disintegrating Provider: Diagnosis: Last Documented On 2:26PM By Isa Casarez ; [facility], [facility] Tylenol 500 mg Oral Capsule 03/03/2025 Provider: Diagnosis: Last Documented On 2:27PM By Isa Casarez ; [facility], [facility] Insulin Lispro (0.5 Unit Kimberlee l) 100 UNIT/ML Subcutaneous Solution Pen-injector 03/03/2025 Provider: Diagnosis: Last Documented On 2:28PM By Isa Casarez ; [facility], [facility] Ondansetron HCl 4 MG Oral Tablet 03/03/2025 Provider : Diagnosis: Last Documented On 2:28PM By Isa Casarez ; [facility], [facility] MiraLax 17 GM Oral Packet 03/03/2025 Provider: Diagnosis: Last Documented On 2:28PM By Isa Casarez ; [facility], [facility] NIFEdipine 10 MG Oral Capsule 03/03/2025 Provider: Diagnosis: Last Documented On 2:28PM By Isa Casarez ; [facility], [facility] Isosorbide Mononitrate ER 30 MG Oral Tablet Extended Release 24 Hour 03/03/2025 Provider: Diagnosis: Last Documented On 2:29PM By Isa Casarez ; [facility], [facility] Chlorthalidone 15 MG Oral Tablet 03/03/2025 Provider : Diagnosis: Last Documented On 2:30PM By Isa Casarez ; [facility], [facility] Adult Centrum Multi Vitamin Oral Tablet 03/03/2025 P rovider: Diagnosis: Last Documented On 2:30PM By Isa Casarez ; [facility], [facility] Carvedilol 3.125 MG Oral Tablet 03/03/2025 Provider: Diagnosis: Last Documented On 2:30PM By Isa Casarez ; [facility], [facility] Movantik 12.5 MG Oral Tablet 03/03/2025 Provider: Diagnosis: Last Documented On 2:30PM By Isa Casarez ; [facility], [facility] Bisacodyl Laxative 10 MG Rectal Suppository 03/03/2025 Provider: Diagnosis: Last Documented On 2:31PM By Isa Casarez ; [facility], [facility] Asperflex Lidocaine 4% External Cream 03/03/2025 Pro vider: Diagnosis: Last Documented On 2:31PM By Isa Casarez ; [facility], [facility] Sennosides 15 MG Oral Tablet 03/03/2025 Provider: Diagnosis: Last Documented On 2:31PM By Isa Casarez ; [facility], [facility] Dulcolax 10 MG Rectal Suppository 03/03/2025 Provide r: Diagnosis: Last Documented On 2:32PM By Isa Casarez ; [facility], [facility] Naloxone HCl 3 MG/0.1ML Nasal Liquid 03/03/2025 Prov ider: Diagnosis: Last Documented On 2:32PM By Isa Casarez ; [facility], [facility] Simethicone 125 MG Oral Capsule 03/03/2025 Provider: Diagnosis: Last Documented On 2:32PM By Isa Casarez ; [facility], [facility] GNP Loratadine 10 MG Oral Tablet 03/03/2025 Provider : Diagnosis: Last Documented On 2:26PM By Isa Casarez ; [facility], [facility] Simethicone 80 MG Oral Tablet 03/03/2025 Provider: Diagnosis: Last Documented On 5 2:26PM By Isa Casarez ; [facility], [facility] Mirabegron ER 25 MG Oral Tablet Extended Release 24 Ho ur 03/03/2025 Provider: Diagnosis: Last Documented On 5 2:25PM By Isa Casarez ; [facility], [facility] Gabapentin 300 MG Oral Capsule 03/03/2025 Provider: Diagnosis: Last Documented On 5 2:25PM By Ias Casarez ; [facility], [facility] Past Medications on file Pensaid Diclofenac Sodium 1.5% Xena w/w EX SOLN 02/28/2010 - 03/30/2010 Provider: Molly bradford MD Diagnosis: apply 10 drops to affected area Last Documented On 0 11:39AM By Silva 1 User ; [facility], [facility] Voltaren Gel 1% EX GEL 12/06/2009 - 01/05/2010 Provide r: Molly Quezada MD Diagnosis: apply 4 grams to affected area 4 times per day/a b Last Documented On 0 3:59PM By Silva 3 User ; [facility], [facility] Lortab 7.5-500 MG OR TABS 10/04/2009 - 10/09/2009 Prov ider: Molly Quezada MD Diagnosis: as needed for pain Last Documented On 9 8:43AM By Silva 2 User ; [facility], [facility] Arixtra 2.5 MG/0.5ML SC SOLN 06/21/2009 - 07/12/2009 P rovider: Molly Quezada MD Diagnosis: Last Documented On 9 2:34PM By Silva 1 User ; [facility], [facility] NOTE EX MISC 05/11/2009 - 05/12/2009 Provider: Ioana Quezada MD Diagnosis: faxed prior auth form back t o [employer] at [phone]// Last Documented On 9 9:47AM By Sirena Huddleston ; [facility], [facility] Flector Patch 1.3% PTCH 05/10/2009 - 06/09/2009 Provid er: Molly Quezada MD Diagnosis: apply patch q12hrs Last Documented On 9 3:18PM By Ricardo Cantu User ; [facility] Phenergan 25 MG OR TABS 04/21/2009 - 05/21/2009 [facility] er: Molly Quezada MD Diagnosis: Last Documented On 9 11:58AM By Ricardo Cantu User ; [facility] Medications Administered Includes: Administered Medications from this encounter No Administered Medications Recorded Vital Signs Includes: Vital Signs from this encounter Vital Name 03/08/2024 02:22P Height (in) 64 Weight (lb) 270 Body Mass Index 46.3 Body Surface Area 2.2 Note: ct Last Documented: On 03/08/2024 2:23PM ; [facility] Results Includes: Results discussed during this encounter No Results Recorded For Specified Dates History of Present Illness Includes: History of Present Illness from this encounter HPI Adrienne Savage is a 73 year old female. - Symptoms pain better: laying down pain worse: movement. - Allergy list reviewed - Problem list reviewed - Medication list reviewed - Patient pain level from 1-10: 8 - Yes, previous treatment. - History of Injections - - Review of medications documented Medications used for this condition: 73 year old female here for my initial evaluation of her chronic right hip pain. She is in a wheelchair and is here with her . She was seen at the ER in [place], [place] a few months ago due to an acute onset of her hip pain where she was told that she needs a hip replacement by the ER physician. Since then, she has been prescribed oxycodone to treat her symptoms. She is unable to tolerate NSAIDs due to her history of bleeding ulcers in her stomach. She has pain from her posterior hip into the groin. She is having pain throughout her body. She has been ambulating with a walker since her first stroke 12 years ago. History of strokes. History of spine surgery with Dr. Thom Valdes. Social History Description Last Updated Caffeine use 04/21/2025 Last Documented On 4 2:31PM ; [facility] Not a current smoker. 04/21/2025 Last Documented On 4 2:31PM ; [facility] Not using alcohol 04/21/2025 Last Documented On 4 2:31PM ; [facility], [facility] Not using drugs 04/21/2025 Last Documented On 4 2:31PM ; [facility], [facility] No recent change in diet 03/03/2025 Last Documented On 4 2:31PM ; [facility], [facility] No caffeine use 03/08/2024 Last Documented On 4 1:46PM ; [facility], [facility] Not a current smoker. former 03/08/2024 Last Documented On 4 1:46PM ; [facility] Not using alcohol former 03/08/2024 Last Documented On 4 1:46PM ; [facility] Tobacco non-user 11/14/2022 Last Documented On 4 2:31PM ; [facility] No recent change in diet 02/19/2016 Last Documented On 4 2:31PM ; [facility] No tobacco use 02/19/2016 Last Documented On 4 2:31PM ; [facility] Not a current smoker 02/19/2016 Last Documented On 4 2:31PM ; [facility], [facility] Not exercising regularly 02/19/2016 Last Documented On 4 2:31PM ; [facility] Smoking status : Never smoker 02/19/2016 Last Documented On 4 2:31PM ; [facility], [facility] Procedures and Surgical History Surgical History Last Updated History of back surgery 11/14/2022 Last Documented On 4 2:08PM ; [facility], [facility] History of History of Gallbladder 2022 Last Documented On 4 2:08PM ; [facility] History of appendectomy 02/19/2016 Last Documented On 4 2:08PM ; [facility] History of total hip replacement 016 Last Documented On 4 2:08PM ; [facility] Medical History Includes: Medical History addressed during this encounter Description Last Updated History of arthritis 11/14/2022 Last Documented On 4 2:08PM ; [facility] History of asthma 11/14/2022 Last Documented On 4 2:08PM ; [facility] History of Heartburn / Acid Reflux 11/14 Last Documented On 4 2:08PM ; [facility] History of History of Blood Clots 2022 Last Documented On 4 2:08PM ; [facility] History of Hypertension 11/14/2022 Last Documented On 4 2:08PM ; [facility] History of Stroke 11/14/2022 Last Documented On 4 2:08PM ; [facility] bilateral shoulder repair, A chilles Repair, right knee arthroscopy ~high cholesterol, heartburn, acid reflux 02/19/2016 Last Documented On 4 2:08PM ; [facility] History of acute myocardial infarction 0 02/19/2016 Last Documented On 4 2:08PM ; [facility] History of depression 02/19/2016 Last Documented On 4 2:08PM ; [facility] History of diabetes mellitus 02/19/2016 Last Documented On 4 2:08PM ; [facility] History of diverticulitis of colon 02/18 Last Documented On 4 2:08PM ; [facility], [facility] History of gastric ulcer 02/19/2016 Last Documented On 4 2:08PM ; [facility] Intermittent hypertension 02/19/2016 Last Documented On 4 2:08PM ; [facility] Family History Includes: Family History addressed during this encounter Description Last Updated Stroke / Seizures 03/08/2024 Last Documented On 4 1:46PM ; [facility] stroke/seizures 02/19/2016 Last Documented On 4 2:08PM ; [facility] Family history of diabetes mellitus 02/03 Last Documented On 4 2:08PM ; [facility] Family history of heart disease 02/19/20 16 Last Documented On 4 2:08PM ; [facility] Family history of hypertension 6 Last Documented On 4 2:08PM ; [facility] Family history of osteoporosis 6 Last Documented On 4 2:08PM ; [facility] Family history of thromboembolic disease 02/19/2016 Last Documented On 4 2:08PM ; [facility] Review of Systems Includes: Review of Systems from this encounter Systemic: Feeling tired. Not feeling tired, no recent weight loss, and no recent weight gain. Head: No headache and no sinus pain. Eyes: No vision problems and no Cataracts. Glasses/Contacts. No Glasses/Contacts and no Glaucoma. Otolaryngeal: No hearing loss and no tinnitus. Cardiovascular: No chest pain or discomfort and no palpitations. Hypertension. No Hypertension. High Cholesterol. No High Cholesterol. Pulmonary: No daytime asthma symptoms. Chronic cough. No chronic cough. No wheezing. Gastrointestinal: No heartburn. Abdominal pain. No abdominal pain. No Indigestion, no Peptic Ulcer, and no GI Stomach Bleed. Ulcers. No Ulcers and no Acid Reflux. Endocrine: No hot flashes. Muscle weakness. No muscle weakness. Diabetes. No Diabetes, no Hypothyroid, and no Hyperthyroid. Hematologic: No easy bleeding. A tendency for easy bruising. No tendency for easy bruising and no Anemia. Musculoskeletal: Arthritis. No Arthritis. Lower back pain. No lower back pain. No soft tissue swelling. Pain localized to one or more joints. No localized joint pain. Neurological: No dizziness and no convulsions. Numbness. No numbness. Psychological: No anxiety and no emotional lability. Depression. No depression and no insomnia. Not crying for no reason. Skin: No dry skin. No Ulcers, no Scars, and no rash. Allergic and Immunologic: Complaint of seasonal allergic reaction. No complaint of seasonal allergic reaction. Mental Status Includes: Mental Status from this encounter Description No anxiety Functional Status Includes: Functional Status from this encounter No Functional Status Recorded Physical Exam Includes: Physical Exam from this encounter Allergies Includes: Active Allergies Substance Type Reaction Onset Date Resolved Date Statu s OTHER Allergy ADVANDA 07/02/2018 Active Last Documented On 08/11/2025 1:22PM ; [facility] Note: CONGESTIVE HEART FAILURE NSAIDs Allergy HURTS STOMACH 01/09/2015 Activ e Last Documented On 08/11/2025 1:22PM ; [facility] Note: HAS ULCERS Ibuprofen Allergy Nausea, Vomiting 03/03/2025 Ac tive Last Documented On 5 1:22PM ; [facility] Encounters Encounter Provider Location Date Check-In Time Check-Out Time Diagnosis IN HOUSE REFERRAL Sb Crouch MD [facility] 03/08/20 24 2:05PM 3:22PM Overweight Insurance Includes: Active Insurance Policies Plan Name Member ID Group # Subscriber Relationship Effect joaquim Dates 1 - [employer]CA [id number] Adrienne Savage Self Clinical Notes Includes: Clinical Notes from this encounter * Progress note Date Encounter Last Documented by 03/08/2024 IN HOUSE REFERRAL Last documente d on 04/05/2024; 1:46 PM, Sb Crouch MD; [facility] Active Problems & Conditions - Joint Pain in the Left Knee - Joint Pain in the Right Hip - Joint Pain in the Right Knee Chief Complaint The Chief Complaint is: Left hip pain. Referred Here Referred by Blaine Pop PA-C. History of Present Illness Adrienne Savage is a 73 year old female. - Symptoms pain better: laying down pain worse: movement. - Allergy list reviewed - Problem list reviewed - Medication list reviewed - Patient pain level from 1-10: 8 - Yes, previous treatment. - History of Injections - - Review of medications documented Medications used for this condition: 73 year old female here for my initial evaluation of her chronic right hip pain. She is in a wheelchair and is here with her . She was seen at the ER in [place], [place] a few months ago due to an acute onset of her hip pain where she was told that she needs a hip replacement by the ER physician. Since then, she has been prescribed oxycodone to treat her symptoms. She is unable to tolerate NSAIDs due to her history of bleeding ulcers in her stomach. She has pain from her posterior hip into the groin. She is having pain throughout her body. She has been ambulating with a walker since her first stroke 12 years ago. History of strokes. History of spine surgery with Dr. Thom Valdes. Current Medication - Clopidogrel Bisulfate 75 MG Oral Tablet 90 days, 0 refills - Dexcom G7 Sensor Miscellaneous 90 days, 0 refills - DULoxetine HCl 60 MG Oral Capsule Delayed Release Particles 30 days, 0 refills - Ezetimibe 10 MG Oral Tablet 90 days, 0 refills - Fluticasone Propionate 50 MCG/ACT Nasal Suspension 90 days, 0 refills - Gemtesa 75 MG Oral Tablet 90 days, 0 refills - Lantus SoloStar 100 UNIT/ML Subcutaneous Solution Pen-injector 88 days, 0 refills - Lisinopril 40 MG Oral Tablet 90 days, 0 refills - Metoprolol Succinate ER 25 MG Oral Tablet Extended Release 24 Hour 90 days, 0 refills - NovoLOG FlexPen 100 UNIT/ML Subcutaneous Solution Pen-injector 90 days, 0 refills - Fyodt-1-dpbv Ethyl Esters 1 GM Oral Capsule 90 days, 0 refills - oxyCODONE-Acetaminophen 7.5-325 MG Oral Tablet 7 days, 0 refills - Plavix 75 MG Oral Tablet 0 days, 0 refills - RABEprazole Sodium 20 MG Oral Tablet Delayed Release 90 days, 0 refills Past Medical/Surgical History Reported: [...] replacement Social History Not a current smoker. former and Not a current smoker. Current diet: No recent change in diet. No recent change in diet. Caffeine use: No caffeine use. Caffeine use. Tobacco use: No tobacco use and not a current smoker. Tobacco non-user. Smoking status: Never smoker. Alcohol: Not using alcohol former and not using alcohol. Drug Use: Not using drugs. Habits: Not exercising regularly. Allergies - NSAIDs Reaction: HURTS STOMACH - OTHER Reaction: ADVANDA Family History Heart disease Stroke / Seizures Stroke/seizures Systemic hypertension Thromboembolic disease Osteoporosis Diabetes mellitus Review Of Systems Systemic: Feeling tired. Not feeling tired, no recent weight loss, and no recent weight gain. Head: No headache and no sinus pain. Eyes: No vision problems and no Cataracts. Glasses/Contacts. No Glasses/Contacts and no Glaucoma. Otolaryngeal: No hearing loss and no tinnitus. Cardiovascular: No chest pain or discomfort and no palpitations. Hypertension. No Hypertension. High Cholesterol. No High Cholesterol. Pulmonary: No daytime asthma symptoms. Chronic cough. No chronic cough. No wheezing. Gastrointestinal: No heartburn. Abdominal pain. No abdominal pain. No Indigestion, no Peptic Ulcer, and no GI Stomach Bleed. Ulcers. No Ulcers and no Acid Reflux. Endocrine: No hot flashes. Muscle weakness. No muscle weakness. Diabetes. No Diabetes, no Hypothyroid, and no Hyperthyroid. Hematologic: No easy bleeding. A tendency for easy bruising. No tendency for easy bruising and no Anemia. Musculoskeletal: Arthritis. No Arthritis. Lower back pain. No lower back pain. No soft tissue swelling. Pain localized to one or more joints. No localized joint pain. Neurological: No dizziness and no convulsions. Numbness. No numbness. Psychological: No anxiety and no emotional lability. Depression. No depression and no insomnia. Not crying for no reason. Skin: No dry skin. No Ulcers, no Scars, and no rash. Allergic and Immunologic: Complaint of seasonal allergic reaction. No complaint of seasonal allergic reaction. Physical Findings - Vitals taken 03/08/2024 02:[address] Height 64 in Weight 270 lbs Body Mass Index 46.3 kg/m2 Body Surface Area 2.2 m2 Right hip: Patient walks with a normal gait Hip range of motion is flexion 120- internal rotation to 30- external rotation to 60- No Tenderness to palpation of greater trochanter or ASIS patient has negative Jose Armando test negative Stinchfield and negative internal rotation flexion test No Tenderness to palpation about abdomen or pubic symphysis and no signs of hernia Anterior skin over hip is intact Positive straight leg raise Patient has 5 out of 5 motor strength in tib ant and gastroc sensory is intact to SPN TPN and tibial nerves there is a 2+ dorsalis pedis pulse Tests Reviewed CT scan and previous x-rays of her right hip that shows mild arthritic changes of the right hip joint. Assessment - Overweight 73 year old female with mild arthritis of her right hip. I do not think she is indicated for right total hip arthroplasty. She has multiple comorbidities that would put her at a higher risk of complications were we to proceed with a total hip arthroplasty. I suspect that her pain is likely related to her spine disease. I advised her to see a nuclear medicine specialist to potentially look into getting ESIs. I advised the patient to wean off of her narcotic pain medication and to decrease her bodyweight to help take some stress off of her joints. She will follow up with us as needed. All questions have been answered. Counseling/Education - Tobacco non-user - Use of tobacco assessment performed - Lose weight - Lose weight Plan - Patient screened for future fall [...] has been discussed with the patient. Notes Transcribed by Isidoro Bullock This dictation was done with voice recognition software and may contain errors and omissions. Care Team - BRENDON FRANCE MD - LITHOGRAPHED PLATE INSPECTOR
--- OUTSIDE RECORDS SUMMARY | 2025-09-06 08:10 | XMS_ITS | Encounter Summary ---
Author Organization [email or web address] ([place], [place], [place], [place], [place]) Address [address] [place] [address] Care Team Providers Care Group Home Paraprofessional Name Role Phone Unavailable Primary Care Provider Unavailabl e Encounter Details Date Type Department Care Team (Late st Contact Info) Description 07/14/2019 Transcribed Document [facility] [place] [facility] [place] [address] ProviderChano MD [address] [place] [id number] Social History Tobacco Use Types Packs/Day Years [...] epithelial cells. Urine culture was positive for 10???[id number] CFU/mL. CT of the L-spine was negative. [...] or confusion. ROS and hx discussed with [id number], has had ceofusion and fever last 2 [...] cefTRIAXone (Rocephin) - 2 Gram, IV Piggyback, [id number], infuse over 30 Minute(s), Routine vancomycin + Sodium Chloride 0.9% intravenous solution 250 m - 1,500 mg, IV Piggyback, [id number], infuse over 60 Minute(s) Anticoagulant enoxaparin (Lovenox) [...] fluticasone nasal (Flonase) - 1 Puff, Nasal, Rosalia, Daily, Routine Pain Meds morphine - 2 [...] 150 (JUL 14 04:04) H 186 (JUL 13 21:07) DBP 82 (JUL 14 10:40) 72 (JUL 13 18:40) H 111 (JUL 13:07) MAP 101 (JUL 14 10:40) 92 (JUL 14:19) 126 (JUL 13 21:07) SpO2 98 (JUL 14 10:40) 94 (JUL 14 04:04) 99 (JUL 13 21:07) Exam: Gen: Alert, not cooperative, confused HEENT: [...] values) WBC 8.4 (JUL 12) 8.2 (JUL 06) 7.9 (JUL 09) 9.1 (JUL 03) HB 11.5 (OCT 07) 11.5 (OCT 06) 12.6 (OCT 04) 12.0 (JUL 03) HCT 35.7 (JUL 07) 35.6 (OCT 06) 39.8 (JUL 09) 37.3 (JUL 03) Plt 263 (JUL 12) 230 (JUL 06) 267 (OCT 04) 268 (JUL 03) Na 142 (JUL 07) 140 (JUL 06) 142 (JUL 09) 141 (JUL 08) K 3.8 (JUL 12) 4.2 (JUL 11) [...] (JUL 08) Ca 9.0 (JUL 07) 9.0 (OCT 06) 9.4 (OCT 04) 9.7 (JUL 08) PT 9.9 (JUL 09) 10.1 (JUL 08) INR 0.9 (JUL 09) 0.9 (JUL 08) PTT 28.0 (JUL 08) AST 18 (JUL 12) 16 (JUL 09) 17 (JUL 03) ALT 25 (JUL 07) 23 (JUL 09) 21 (JUL 08) ALK P 56 (JUL 07) 69 (JUL 09) 63 (JUL 03) T Bili 0.3 (JUL 07) 0.3 (JUL 09) 0.4 (JUL 08) PTN 6.7 (OCT 07) 7.1 (OCT 04) 7.0 (JUL 03) ALB L 2.8 [...]
--- OUTSIDE RECORDS SUMMARY | 2025-09-06 08:11 | XMS_ITS | Encounter Summary ---
Author Organization [employer] ([place], [place], [place], [place], [place]) Address [address] [place] [address] Care Team Providers Care Appraiser Timber Name Role Phone Unavailable Primary Care Provider Unavailabl e Encounter Details Date Type Department Care Team (Late st Contact Info) Description 02/07/2019 Transcribed Document [facility] [place] [facility] [place] [address] ProviderChano MD [facility] [place] [id number] Social History Tobacco Use Types Packs/Day Years [...] further action required X1 Electronically signed by [facility] Conversion Washing Machine Operator Cerner at 01/23/2023 1:14 PM CDT documented in this encounter Plan of Treatment Not on file documented as of this encounter Visit Diagnoses Not on filedocumented in this encounter
--- OUTSIDE RECORDS SUMMARY | 2025-09-06 08:11 | XMS_ITS | Encounter Summary ---
Author Organization [employer] ([place], [place], [place], [place], [place]) Address [address] [place] [address] Care Team Providers Care Drop Tester Name Role Phone Unavailable Primary Care Provider Unavailabl e Encounter Details Date Type Department Care Team (Late st Contact Info) Description 07/12/[address] [facility] [place] [address] [place] [address] ProviderChano MD [address] [place], [place] [id number] Social History Tobacco Use Types Packs/Day Years [...] JOHN ROSENTHAL PT - 07/12/2019 14:42 EDT Electronically signed by Julian Wheeler Conversion Health And Fitness Professor Cerner at 01/23/2023 1:19 PM CDT documented in this encounter Plan of Treatment Not on file documented as of this encounter Visit Diagnoses Not on filedocumented in this encounter
--- OUTSIDE RECORDS SUMMARY | 2025-09-06 08:11 | XMS_ITS | Encounter Summary ---
Author Organization [employer] ([place], [place], [place], [place], [place]) Address [address] [place] [address] Care Team Providers Care Flat Bed Knitter Name Role Phone Unavailable Primary Care Provider Unavailabl e Encounter Details Date Type Department Care Team (Late st Contact Info) Description 02/07/2019 Transcribed Document [facility] [place] [facility] [place] [address] ProviderChano MD [facility] [place], [place] [id number] Social History Tobacco Use Types Packs/Day Years [...] chew) Flonase 0.05 mg/inh nasal spray: 2 [place], Nasal, Daily, 16 Gram, PRN: Allergies Lantus: [...] Pain, Joint Pain. Follow up with: QUIRINO (ANAID) NADEEN Within 2 to 3 days. Counseled: Patient, Regarding diagnosis, Regarding diagnostic results, Regarding treatment plan, Patient indicated understanding of instructions. Electronically signed by Julian Wheeler Conversion Transition Of Care Specialist Cerner at 01/23/2023 1:20 PM CDT documented in this encounter Plan of Treatment Not on file documented as of this encounter Visit Diagnoses Not on filedocumented in this encounter
--- OUTSIDE RECORDS SUMMARY | 2025-09-06 08:11 | XMS_ITS | Encounter Summary ---
Author Organization [employer] ([place], [place], [place], [place], [place]) Address [address] [place] [address] Care Team Providers Care Line Rider Name Role Phone Unavailable Primary Care Provider Unavailabl e Encounter Details Date Type Department Care Team (Late st Contact Info) Description 07/12/2019 Transcribed Document [facility] [place] Family Medicine [address] [place] [address] ProviderChano MD [address] [place] [phone] Social History Tobacco Use Types Packs/Day Years [...] On: 07/12/2019 15:48 EDT by HORACIO ACHARYA RN-Body Engineer Initial Assessment I Previously Documented Living Environment [...] Relationship : dgt Medical Durable Power of Foreign Exchange Dealer Name : No Legal Guardian : No HORACIO ACHARYA RN-Body Engineer - 07/12/2019 15:48 EDT Initial Assessment II Sensory and Motor Deficits : Cognitive deficit, Other: mental status HORACIO ACHARYA RN-Body Engineer - 07/12/2019 15:48 EDT Discharge Needs I Anticipated Discharge To, CM : Home with family care, Psychiatric Unit, senior care facility Current Home Treatment/Equipment : Current Home Treatment/Equipment No qualifying data available. Documentation Status Complete : Yes HORACIO ACHARYA RN-Body Engineer - 07/12/2019 15:48 EDT Discharge Needs II Professional Skilled Services : Professional Skilled Services No qualifying data available. HORACIO ACHARYA RN-Body Engineer - 07/12/2019 15:48 EDT Narrative Note Narrative [...] eval. D/W family at bedside. HORACIO ACHARYA RN-Body Engineer - 07/12/2019 15:48 EDT documented in this encounter Plan of Treatment Not on file documented as of this encounter Visit Diagnoses Not on filedocumented in this encounter
--- OUTSIDE RECORDS SUMMARY | 2025-09-06 08:11 | XMS_ITS | Encounter Summary ---
Author Organization [employer] ([place], [place], [place], [place], [place]) Address [address] [place] [address] Care Team Providers Care Water Gas Operator Name Role Phone Unavailable Primary Care Provider Unavailabl e Encounter Details Date Type Department Care Team (Late st Contact Info) Description 04/01/2019 Transcribed Document [facility] [place] Family Medicine [address] [place] [address] ProviderChano MD [address] [place], [place] [phone] Social History Tobacco Use Types Packs/Day Years Used Date Smoking Tobacco: Never Assessed Comments Unknown Sex and Gender Information Value Date Recorded Sex Assigned at Not on file Legal Sex Female 2:07 PM CDT Gender Identity Not on file Sexual Orientation Not on file documented as of this encounter Miscellaneous Notes * Cerner Conversion Note - Historical ProviderMD - 04/01/2019 10:40 AM CDT PAT [...] Source : Measured Height Entry Format : Andrews Height, Feet : 5 ft(Converted to: 152 cm, 60 Inch) Height, Inches : 5 Inch(Converted to: 0 ft 5 Inch, 12.70 cm) Clinical Height : 165.1 cm Weight Source : Standing scale Weight Entry Format : Andrews Clinical Dosing Weight : 112.27 kg Weight, Pounds : 247 lb Body Surface Area (BSA) : 2.17 m2 Body Mass Index : 41.2 kg/m2 (>HHI) Dinosaur Body Weight : 57 kg BIANKA DUNN [...] [place], ED Nurse) Employment/School: Retired, Previous employment/school: [employer]. (Last Updated: 07/17/2014 00:15:13 EDT by KATIE [...] Adrienne Legal Guardian : No Support Person/Patient Referral Management Liaison : No Support Person/Pt Rep Name : jonelle Savage - spouse Support Person/Pt Rep Contact Information : [phone] Want Family/Rep/Phys Notified of Admit : No Emergency Contact #1 : jonelle Emergency Contact #1 cell Emergency Contact #1 Relationship : spouse Emergency Contact #2 : none Emergency Contact #2 Phone Number : none Emergency Contact #2 Relationship : none Primary Language : Marshallese Preferred Communication Mode : Verbal Communication Barrier [...] form. Electronically signed by Julian Wheeler Conversion Moisture Conditioner Operator Cerner at 01/23/2023 1:20 PM CDT documented in this encounter Plan of Treatment Not on file documented as of this encounter Visit Diagnoses Not on filedocumented in this encounter
--- OUTSIDE RECORDS SUMMARY | 2025-09-06 08:11 | XMS_ITS | Encounter Summary ---
Author Organization [employer] ([place], [place], [place], [place], [place]) Address [address] [place] [address] Care Team Providers Care Rotor Casting Machine Setup Operator Name Role Phone Unavailable Primary Care Provider Unavailabl e Encounter Details Date Type Department Care Team (Late st Contact Info) Description 07/13/2019 Transcribed Document [facility] [place] [address] [place] [address] ProviderChano MD [address] [place] [phone] Social History Tobacco Use Types Packs/Day Years [...]
--- OUTSIDE RECORDS SUMMARY | 2025-09-06 08:11 | XMS_ITS | Encounter Summary ---
Author Organization [employer] ([place], [place], [place], [place], [place]) Address [address] [place] [address] Care Team Providers Care Newsstand Vendor Name Role Phone Unavailable Primary Care Provider Unavailabl e Encounter Details Date Type Department Care Team (Late st Contact Info) Description 12/04/2018 Transcribed Document [facility] [place] [address] [place] [address] ProviderChano MD [address] [place] [phone] Social History Tobacco Use Types Packs/Day Years Used Date Smoking Tobacco: Never Assessed Comments Unknown Sex and Gender Information Value Date Recorded Sex Assigned at Not on file Legal Sex Female 2:07 PM CDT Gender Identity Not on file Sexual Orientation Not on file documented as of this encounter Miscellaneous Notes * Cerner Conversion Note - Historical ProviderMD - 12/04/2018 12:03 PM CERTIFIED MEDICAL CODER Pain Assessment Entered On: 12/04/2018 13:24 EST Performed On: 12/04/2018 13:24 EST by ANKIT SONI RN Intervention Information: acetaminophen-HYDROcodone Performed by Abhilash Chester, Emergency Room Service Consultant on 12/04/2018 12:11:00 EST acetaminophen-HYDROcodone,2Tab Oral Pain [...]
--- OUTSIDE RECORDS SUMMARY | 2025-09-06 08:11 | XMS_ITS | Encounter Summary ---
Author Organization [employer] ([place], [place], [place], [place], [place]) Address [address] [place] [address] Care Team Providers Care Oreman Name Role Phone Unavailable Primary Care Provider Unavailabl e Encounter Details Date Type Department Care Team (Late st Contact Info) Description 10/06/2019 Transcribed Document [facility] [place] [facility] [place] [address] ProviderChano MD [facility] [place] [phone] Social History Tobacco Use Types Packs/Day Years Used Date Smoking Tobacco: Never Assessed Comments Unknown Sex and Gender Information Value Date Recorded Sex Assigned at Not on file Legal Sex Female 2:07 PM CDT Gender Identity Not on file Sexual Orientation Not on file documented as of this encounter Miscellaneous Notes * [employer]ner Conversion Note - Historical ProviderMD - 10/06/2019 8:19 AM SOFTWARE ASSET MANAGEMENT ANALYST CR Chest 2 Vws Ordered: 10/05/2019 Auth (Verified) Reason for Exam: pain 10/05/2019 18:59 10/06/2019 08:19 (AKKIO OSWALD, MARIN) Reviewed by Provider, No further action required X1 - no acute Electronically signed by [facility] Conversion Broadcast Correspondent Cerner at 01/23/2023 1:39 PM CDT documented in this encounter Plan of Treatment Not on file documented as of this encounter Visit Diagnoses Not on filedocumented in this encounter
--- OUTSIDE RECORDS SUMMARY | 2025-09-06 08:11 | XMS_ITS | Encounter Summary ---
Author Organization [employer] ([place], [place], [place], [place], [place]) Address [address] [place] [address] Care Team Providers Care Technology Training Associate Name Role Phone Unavailable Primary Care Provider Unavailabl e Encounter Details Date Type Department Care Team (Late st Contact Info) Description 12/04/2018 Transcribed Document [facility] [place] [facility] [place] [address] ProviderChano MD [address] [place] [phone] Social History Tobacco Use Types Packs/Day Years Used Date Smoking Tobacco: Never Assessed Comments Unknown Sex and Gender Information Value Date Recorded Sex Assigned at Not on file Legal Sex Female 2:07 PM CDT Gender Identity Not on file Sexual Orientation Not on file documented as of this encounter Miscellaneous Notes * [employer] Conversion Note - Historical ProviderMD - 12/04/2018 1:53 PM ELECTRONIC WARFARE LINGUIST [address] [address] Patient Information Name: LUDY ANTONIO [...] Please contact the Patient Resource Center at [phone] if you need assistance establishing a primary care physician in the future. With: Address: When: [address] [place], [place] [id number] [facility] (1) Within 2 to 3 days With: Address: When: [address] [place] [phone] [facility] (3) Within 2 to 3 days Patient Education [...] often as you can. ??? Only take [id number]-[id number] or prescription medicines for pain, discomfort, or [...] 09/22/2006 Document Revised: 02/27/2017 Document Reviewed: 04/21/2014 [employer] Patient Education ? 2017 [employer] Allergies: metFORMIN; NSAIDs; statins; Avandia; rosiglitazone; [...] verify that LUDY ANTONIO was seen at [facility] Emergency Department on ,12/04/2018 13:53:04. This [...] along the way. As a healthcare provider, [facility] recommends that you stop smoking. Assistance with quitting is available by contacting 2-030-XHAU-NOW. This is a free resource providing counseling, [...] Electronic Communications Privacy Act 18 U.S.C. ???Sections 4243-6111,?? and contain information intended for the specified [...] Be sure to sign up for the [employer] patient portal, which gives you 28/04 access to your medical information ??? including these discharge instructions ??? using your computer, smartphone, or tablet. Just go to [email or web address] to get started. Questions? Call . Acknowledgment [...] Physician: Electronically signed by Julian Wheeler Conversion Emergency Department Physician Wade at 01/23/2023 1:10 PM CDT documented in this encounter Plan of Treatment Not on file documented as of this encounter Visit Diagnoses Not on filedocumented in this encounter
--- OUTSIDE RECORDS SUMMARY | 2025-09-06 08:11 | XMS_ITS | Encounter Summary ---
Author Organization [employer] ([place], [place], [place], [place], [place]) Address [address] [place] [address] Care Team Providers Care Records Supervisor Name Role Phone Unavailable Primary Care Provider Unavailabl e Encounter Details Date Type Department Care Team (Late st Contact Info) Description 07/13/2019 Transcribed Document [facility] [place] [facility] [place] [address] ProviderChano MD [facility] [place] [phone] Social History Tobacco Use Types Packs/Day Years [...] have any questions or new problems arise. documented in this encounter Plan of Treatment Not on file documented as of this encounter Visit Diagnoses Not on filedocumented in this encounter
--- OUTSIDE RECORDS SUMMARY | 2025-09-06 08:11 | XMS_ITS | Encounter Summary ---
Author Organization [employer] ([place], [place], [place], [place], [place]) Address [address] [place] [address] Care Team Providers Care Senior Application Programmer Name Role Phone Unavailable Primary Care Provider Unavailabl e Encounter Details Date Type Department Care Team (Late st Contact Info) Description 02/07/2019 Transcribed Document [facility] [place] Family Medicine [facility] [place] [address] ProviderChano MD [facility] [place], [place] [id number] Social History Tobacco Use Types Packs/Day Years [...] On: 02/07/2019 5:02 EDT by Leanne Begum, chef broiler or fry Triage Across the Room Triage Date/Time : 02/07/2019 5:02 EDT Chief Complaint : patient c/o right hip pain 07/15, danced at a wedding yesterday and stiffness began shortly after, began hurting a few hours later, now can't stand or walk Leanne Begum Rn - 02/07/2019 5:02 EDT DCP GENERIC CODE Tracking Acuity : 3 - Urgent Tracking Group : [facility] ED Leanne Begum Rn - 02/07/2019 5:02 EDT Mode of Arrival : Stretcher Transported to ED by : Ambulance/ALS EMS Service : [facility] To Room Via : Stretcher Accompanied By [...] Estimated Onset Date: Unspecified ; Created By: CONTRIBUTOR_SYSTEMLIZ; Reaction Status: Active ; Category: Drug ; Substance: rosiglitazone ; Type: Allergy ; Updated By: LIZ VILLEGAS; Reviewed Date: 02/07/2019 5:08 EDT statins Estimated Onset Date: Unspecified ; Reactions: Fenofibrate, Fenofibrate ; Created By: STARLA_LIZ ARMANDO; Reaction Status: Active ; Category: Drug ; Substance: statins ; Type: Allergy ; Updated By: LIZ VILLEGAS; Reviewed Date: 02/07/2019 5:08 EDT Diagnosis Control ED (As Of: 02/07/2019 05:09:32 EDT) Problems(Active) Acid reflux (SNOMED CT :409881332 ) Name of Problem: Acid reflux ; Recorder: MIGEL GARCIA RN; Confirmation: Confirmed ; Classification: Patient Stated ; Code: 112887201 ; Contributor System: hike ; Last Updated: 03/17/2014 19:28 EDT ; Life Cycle Date: 06/24/2013 ; Life Cycle Status: Active ; Vocabulary: SNOMED CT Allergic asthma (SNOMED CT :1918789440 ) Name of Problem: Allergic asthma ; Recorder: MIGEL GARCIA RN; Confirmation: Confirmed ; Classification: Patient Stated ; Code: 9326302743 ; Contributor System: BizmoreChart ; Last Updated: 03/17/2014 19:28 EDT ; Life Cycle Date: 06/24/2013 ; Life Cycle Status: Active ; Vocabulary: SNOMED CT Anxiety depression (SNOMED CT :779345438 ) Name of Problem: Anxiety depression ; Recorder: MIGEL GARCIA RN; Confirmation: Confirmed ; Classification: Patient Stated ; Code: 225022838 ; Contributor System: PowerChart ; Last Updated: 03/22/2014 12:26 EDT ; Life Cycle Date: 06/24/2013 ; Life Cycle Status: Active ; Vocabulary: SNOMED CT Arthritis (SNOMED CT :9653936 ) Name of Problem: Arthritis ; Recorder: MIGEL GARCIA RN; Confirmation: Confirmed ; Classification: Patient Stated ; Code: 1138744 ; Contributor System: PowerChart ; Last Updated: 03/17/2014 19:28 EDT ; Life Cycle Date: 06/24/2013 ; Life Cycle Status: Active ; Vocabulary: SNOMED CT BP+ - Hypertension (SNOMED CT :460174724 ) Name of Problem: BP+ - Hypertension ; Recorder: MIGEL GARCIA RN; Confirmation: Confirmed ; Classification: Patient Stated ; Code: 147809238 ; Contributor System: BizmoreChart ; Last Updated: 03/22/2014 10:58 EDT ; Life Cycle Date: 06/24/2013 ; Life Cycle Status: Active ; Vocabulary: SNOMED CT Completely occulded L carotid (SNOMED CT :3347773019 ) Name of Problem: Completely occulded L carotid ; Recorder: STEPHANIE ARREGUIN RN; Confirmation: Confirmed ; Classification: Medical ; Code: 5072453920 ; Contributor System: PowerChart ; Last Updated: 04/23/2016 17:54 EDT ; Life Cycle Date: 04/25/2015 ; Life Cycle Status: Active ; Vocabulary: SNOMED CT Congestive heart failure - due to Avandia resolved (SNOMED CT :91771060 ) Name of Problem: Congestive heart failure - due to Avandia resolved ; Recorder: MIGEL GARCIA RN; Confirmation: Confirmed ; Classification: Patient Stated ; Code: 43738493 ; Contributor System: PowerChart ; Last Updated: 04/23/2016 17:53 EDT ; Life Cycle Date: 06/24/2013 ; Life Cycle Status: Active ; Vocabulary: SNOMED CT ; Comments: 06/24/2013 10:32 - MIGEL GARCIA RN per pt and DM - Diabetes mellitus (SNOMED CT :805064415 ) Name of Problem: DM - Diabetes mellitus ; Recorder: MIGEL GARCIA RN; Confirmation: Confirmed ; Classification: Patient Stated ; Code: 474174674 ; Contributor System: PowerChart ; Last Updated: 03/22/2014 10:54 EDT ; Life Cycle Date: 06/24/2013 ; Life Cycle Status: Active ; Vocabulary: SNOMED CT Dyslipidemia (SNOMED CT :9561425067 ) Name of Problem: Dyslipidemia ; Recorder: MIGEL GARCIA RN; Confirmation: Confirmed ; Classification: Patient Stated ; Code: 1559737366 ; Contributor System: BizmoreChart ; Last Updated: 03/17/2014 19:28 EDT ; Life Cycle Date: 06/24/2013 ; Life Cycle Status: Active ; Vocabulary: SNOMED CT H/O ischemic left MCA stroke (SNOMED CT :9721776359 ) Name of Problem: H/O ischemic left MCA stroke ; Onset Date: 09/05/2012 ; Recorder: SYBIL MCGILL MD-EMR; Confirmation: Confirmed ; Classification: Medical ; Code: 1596168189 ; Contributor System: hike ; Last Updated: 04/23/2016 17:54 EDT ; Life Cycle Date: 04/23/2016 ; Life Cycle Status: Active ; Responsible Provider: SYBIL MCGILL MD-EMR; Vocabulary: SNOMED CT Hiatal hernia (SNOMED CT :110268197 ) Name of Problem: Hiatal hernia ; Recorder: SYBIL MCGILL MD-EMR; Confirmation: Complaint of ; Classification: Medical ; Code: 498426539 ; Contributor System: hike ; Last Updated: 12/03/2015 16:45 EST ; Life Cycle Date: 12/03/2015 ; Life Cycle Status: Active ; Vocabulary: SNOMED CT Obesity (SNOMED CT :7153284554 ) Name of Problem: Obesity ; Recorder: SYBIL MCGILL MD-EMR; Confirmation: Confirmed ; Classification: Medical ; Code: 1619439111 ; Contributor System: hike ; Last Updated: 04/23/2016 17:53 EDT ; Life Cycle Date: 04/23/2016 ; Life Cycle Status: Active ; Responsible Provider: SYBIL MCGILL MD-EMR; Vocabulary: SNOMED CT Diagnoses(Active) Hip pain-swelling Date: 02/07/2019 ; Diagnosis Type: Reason For Visit ; Confirmation: Complaint of ; Clinical Dx: Hip pain-swelling ; Classification: Medical ; Clinical Service: Non-Specified ; Code: PNED ; Probability: 0 ; Diagnosis Code: [id number] ED Height and Weight Height Source : Stated Height Entry Format : [place] Height, Feet : 5 ft(Converted to: 152 cm, 60 Inch) Height, Inches : 5 Inch(Converted to: 0 ft 5 Inch, 12.70 cm) Clinical Height : 165.1 cm Weight Source, ED : Critical estimated dosing weight Weight Entry Format : [place] Weight, Pounds : 230 lb Clinical Dosing Weight : 104.55 kg Body Surface Area (BSA) : 2.1 m2 Body Mass Index : 38.4 kg/m2 (HI) [place] Body Weight (IBW) : 56.59 kg Leanne [...]
--- OUTSIDE RECORDS SUMMARY | 2025-09-06 08:11 | XMS_ITS | Encounter Summary ---
Author Organization [employer] ([place], [place], [place], [place], [place]) Address [address] [place] [address] Care Team Providers Care Machine Spring Former Name Role Phone Unavailable Primary Care Provider Unavailabl e Encounter Details Date Type Department Care Team (Late st Contact Info) Description 12/04/2018 Transcribed Document [facility] [place] [address] ProviderChano MD [facility] [place] [id number] Social History Tobacco Use Types Packs/Day Years Used Date Smoking Tobacco: Never Assessed Comments Unknown Sex and Gender Information Value Date Recorded Sex Assigned at Not on file Legal Sex Female 2:07 PM CDT Gender Identity Not on file Sexual Orientation Not on file documented as of this encounter Miscellaneous Notes * Cerner Conversion Note - Chano Gatica MD - 12/04/2018 12:06 PM COUNSELOR DORMITORY Patient: LUDY ANTONIO Age: 68 years Sex: [...] and fenofibrate.. Medications: (Selected) Inpatient Medications Ordered [place]nee 5 mg-325 mg oral tablet: 2 Tab, Oral, 1-Time Documented Medications Documented Aciphex: 20 mg, Oral, BID Centrum: 1 Tab, Oral, Daily Cymbalta 60 mg oral delayed release capsule: 1 Cap, Oral, Daily, (do not crush or chew) Flonase 0.05 mg/inh nasal spray: 2 [place], Nasal, Daily, 16 Gram, PRN: Allergies Lantus: [...] and left shoulder repair. achilles repair. Appendectomy ([id number]). Cholecystectomy (79419543). Tonsillectomy (681677077).. Family history: No family history items have been selected or recorded.. 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 She states that she does have Shawnee at home. I did instruct her to [...]
--- OUTSIDE RECORDS SUMMARY | 2025-09-06 08:11 | XMS_ITS | Encounter Summary ---
Author Organization [employer] ([place], [place], [place], [place], [place]) Address [address] [place] [address] Care Team Providers Care Warp Tying Machine Knotter Name Role Phone Unavailable Primary Care Provider Unavailabl e Encounter Details Date Type Department Care Team (Late st Contact Info) Description 04/05/2019 Transcribed Document [facility] [place] [facility] [place] [address] ProviderChano MD [facility] [place] [id number] Social History Tobacco Use Types Packs/Day Years Used Date Smoking Tobacco: Never Assessed Comments Unknown Sex and Gender Information Value Date Recorded Sex Assigned at Not on file Legal Sex Female 2:07 PM CDT Gender Identity Not on file Sexual Orientation Not on file documented as of this encounter Miscellaneous Notes * Cerner Conversion Note - Historical ProviderMD - 04/05/2019 11:50 PM CDT Admission [...] Adrienne Legal Guardian : No Support Person/Patient Gravity Prospector : No Support Person/Pt Rep Name : jonelle Savage - spouse Support Person/Pt Rep Contact Information : [phone] Want Family/Rep/Phys Notified of Admit : No Emergency Contact #1 : jonelle Emergency Contact #1 cell Emergency Contact #1 Relationship : spouse Emergency Contact #2 : none Emergency Contact #2 Phone Number : none Emergency Contact #2 Relationship : none Primary Language : [place] Preferred Communication Mode : Verbal Communication Barrier [...] Level : 46 or > High Risk [place] Fall Interventions : Adequate lighting, Assistive devices [...] TRINIDAD, ED Nurse) 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 (Last Updated: 07/17/2014 00:15:13 EDT by KATIE TRINIDAD, ED Nurse) Height and Weight, Clinical Dosing Height Source : Measured Height Entry Format : Midnight Height, Feet : 5 ft(Converted to: 152 cm, 60 Inch) Height, Inches : 5 Inch(Converted to: 0 ft 5 Inch, 12.70 cm) Clinical Height : 165.1 cm Weight Source : Standing scale Weight Entry Format : Midnight Clinical Dosing Weight : 112.27 kg Weight, Pounds : 247 lb Body Surface Area (BSA) : 2.17 m2 Body Mass Index : 41.2 kg/m2 (>HHI) [place] Body Weight : 57 kg Eriberto Crawley [...] Pneumonia Immunization Received : Yes Eriberto Crawley Rn-Resource - 04/05/2019 23:50 EDT Nutrition History Adaptive [...]
--- OUTSIDE RECORDS SUMMARY | 2025-09-06 08:11 | XMS_ITS | Encounter Summary ---
Author Organization [employer] ([place], [place], [place], [place], [place]) Address [address] [place] [address] Care Team Providers Care Impersonator Character Name Role Phone Unavailable Primary Care Provider Unavailabl e Encounter Details Date Type Department Care Team (Late st Contact Info) Description 12/04/2018 Transcribed Document [facility] [place] Family Medicine [address] [place] [address] ProviderChano MD [address] [place], [place] [id number] Social History Tobacco Use Types Packs/Day Years Used Date Smoking Tobacco: Never Assessed Comments Unknown Sex and Gender Information Value Date Recorded Sex Assigned at Not on file Legal Sex Female 2:07 PM CDT Gender Identity Not on file Sexual Orientation Not on file documented as of this encounter Miscellaneous Notes * Cerner Conversion Note - Historical ProviderMD - 12/04/2018 8:35 PM CONSULTANT CR Knee 3 Vws LT Ordered: 12/04/2018 [...]
--- OUTSIDE RECORDS SUMMARY | 2025-09-06 08:11 | XMS_ITS | Encounter Summary ---
Author Organization [employer] ([place], [place], [place], [place], [place]) Address [address] [place] [address] Care Team Providers Care Phone Triage Specialist Name Role Phone Unavailable Primary Care Provider Unavailabl e Encounter Details Date Type Department Care Team (Late st Contact Info) Description 07/12/2019 Transcribed Document [facility] [place] [address] [place] [address] ProviderChano MD [address] [place] [address] Social History Tobacco Use Types [...] CDS Signature: Roula Langston RN Phone #: [phone] This a permanent part of the Medical Record 2018 [facility] Updated: documented in this encounter Plan of Treatment Not on file documented as of this encounter Visit Diagnoses Not on filedocumented in this encounter
--- OUTSIDE RECORDS SUMMARY | 2025-09-06 08:11 | XMS_ITS | Encounter Summary ---
Author Organization [employer] ([place], [place], [place], [place], [place]) Address [address] [place] [address] Care Team Providers Care Coal Pipeline Operator Name Role Phone Unavailable Primary Care Provider Unavailabl e Encounter Details Date Type Department Care Team (Late st Contact Info) Description 04/05/2019 Transcribed Document [facility] [place] Family Medicine [facility] [place] [address] ProviderhCano MD [facility] [place] [id number] Social History Tobacco Use Types Packs/Day Years Used Date Smoking Tobacco: Never Assessed Comments Unknown Sex and Gender Information Value Date Recorded Sex Assigned at Not on file Legal Sex Female 2:07 PM CDT Gender Identity Not on file Sexual Orientation Not on file documented as of this encounter Miscellaneous Notes * Cerner Conversion Note - Historical ProviderMD - 04/05/2019 3:57 PM CDT Pain [...]
--- OUTSIDE RECORDS SUMMARY | 2025-09-06 08:11 | XMS_ITS | Encounter Summary ---
Author Organization [employer] ([place], [place], [place], [place], [place]) Address [address] [place] [address] Care Team Providers Care Piano Player Name Role Phone Unavailable Primary Care Provider Unavailabl e Encounter Details Date Type Department Care Team (Late st Contact Info) Description 02/07/2019 Transcribed Document [facility] [place] [facility] [place] [address] ProviderChano MD [facility] [place] [id number] Social History Tobacco Use Types Packs/Day Years [...] 02/07/2019 5:43 AM CDT Electronically signed by [facility] Conversion Slip Dumper Cerner at 01/23/2023 1:28 PM CDT documented in this encounter Plan of Treatment Not on file documented as of this encounter Visit Diagnoses Not on filedocumented in this encounter
--- OUTSIDE RECORDS SUMMARY | 2025-09-06 08:11 | XMS_ITS | Encounter Summary ---
Author Organization [employer] ([place], [place], [place], [place], [place]) Address [address] [place] [address] Care Team Providers Care Boom Master Name Role Phone Unavailable Primary Care Provider Unavailabl e Encounter Details Date Type Department Care Team (Late st Contact Info) Description 07/13/2019 Transcribed Document [facility] [place] Family Medicine [facility] [place] [address] ProviderChano MD [facility] [place] [id number] Social History Tobacco Use Types Packs/Day Years [...] Rocephin: 2 Gram, 100 mL/Hr, IV Piggyback, [id number] SEROquel: 6.25 mg, Oral, BID Tylenol: 650 [...] mL: 1,500 mg, 250 mL/Hr, IV Piggyback, [id number] Documented Medications Documented Aciphex: 20 mg, Oral, BID Advair Diskus 250 mcg-50 mcg inhalation powder: 1 Puff, Inhalation, Daily, PRN: as needed, 0 Refill(s) Centrum: 1 Tab, Oral, Daily Cymbalta 60 mg oral delayed release capsule: 1 Cap, Oral, At Bedtime, (do not crush or chew) Flonase 0.05 mg/inh nasal spray: 2 [place], Nasal, Daily, 16 Gram, 0 Refill(s) Lantus: [...] Bedtime Flonase 0.05 mg/inh nasal spray 2 [place], Nasal, Daily Lantus 60 Units, SubCutaneous, At [...] Scheduled: (14) cefTRIAXone 2 Gram, IV Piggyback, [id number] divalproex 250 mg EC tab 250 mg [...] 0.9% 250 mL 1,500 mg, IV Piggyback, [id number] Continuous: (0) PRN: (8) acetaminophen 325 mg [...] list: Medical Wears glasses / SNOMED CT 114587798 / Confirmed Sleep apnea///risk / SNOMED CT 359249480 / Confirmed Colon polyps / SNOMED CT 021348913 / Confirmed Right leg pain / SNOMED CT 8000435531 / Confirmed Obesity / SNOMED CT 7215306149 / Confirmed Numbness and tingling//right leg / SNOMED CT 1091073809 / Confirmed Memory deficit///slow recall / SNOMED CT 4035502006 / Confirmed H/O ischemic left MCA stroke / SNOMED CT 5268376082 / Confirmed Hiatal hernia / SNOMED CT 115898728 / Complaint of Fibromyalgia / SNOMED CT 821419606 / Confirmed Lumbar disc disease / SNOMED CT 8046537008 / Confirmed Completely occulded L carotid / SNOMED CT 1953724673 / Confirmed Chest pain///cath negative / SNOMED CT 77479405 / Confirmed Cataract///beginning stage / SNOMED CT 744533689 / Confirmed Back pain / SNOMED CT 0626475517 / Confirmed At risk for sleep apnea / IMO 57426668 / Confirmed Pain//chronic / SNOMED CT 079136997 / Confirmed, Active Problems (24) Acid reflux [...] 3.8 (JUL 07) 4.2 (OCT 06) 4.4 (JUL 04) [...]
--- OUTSIDE RECORDS SUMMARY | 2025-09-06 08:11 | XMS_ITS | Encounter Summary ---
Author Organization [employer] ([place], [place], [place], [place], [place]) Address [address] [place] [address] Care Team Providers Care Customer Solutions Representative Name Role Phone Unavailable Primary Care Provider Unavailabl e Encounter Details Date Type Department Care Team (Late st Contact Info) Description 10/05/2019 Transcribed Document [facility] [place] [facility] [place] [address] ProviderChano MD [address] [place], [place] [id number] Social History Tobacco Use Types Packs/Day Years Used Date Smoking Tobacco: Never Assessed Comments Unknown Sex and Gender Information Value Date Recorded Sex Assigned at Not on file Legal Sex Female 2:07 PM CDT Gender Identity Not on file Sexual Orientation Not on file documented as of this encounter Miscellaneous Notes * Cerner Conversion Note - Chano ProviderMD - 10/05/2019 6:04 PM HUMAN PERFORMANCE PROFESSOR ED Triage Entered On: 10/05/2019 18:10 EST Performed On: 10/05/2019 18:05 EST by Urvashi Ta RN ED Triage Across the Room Chief Complaint : pt arrives very anxious, c/o chest pain and soa. seen at [facility] yesterday for the same s/sx. reports that pt is not allergic to aspirin it just hurts her stomach Triage Date/Time : 10/05/2019 18:05 EST Urvashi Ta RN - 10/05/2019 18:05 EST DCP GENERIC CODE Tracking Acuity : 3 - Urgent Tracking Group : [facility] ED Urvashi Ta RN - 10/05/2019 18:05 EST Mode of Arrival : Stretcher Transported to ED by : Ambulance/ALS EMS Service : [facility] To Room Via : Stretcher Accompanied By : Significant other BAND MACHINE OPERATOR Medications and Interventions : Document Height & Weight : Document ED Allergies : Document ED Reason for Visit : Document Tetanus Immunization : Less than 5 years Client Services Analyst Needed : No Urvashi Ta RN - [...] 18:10:52 EST) Problems(Active) Acid reflux (SNOMED CT :221952884 ) Name of Problem: Acid reflux ; Recorder: MIGEL GARCIA RN; Confirmation: Confirmed ; Classification: Patient Stated ; Code: 043642350 ; Contributor System: [employer] ; Last Updated: 03/17/2014 19:28 EDT ; Life Cycle Date: 06/24/2013 ; Life Cycle Status: Active ; Vocabulary: SNOMED CT Allergic asthma (SNOMED CT :6625959260 ) Name of Problem: Allergic asthma ; Recorder: MIGEL GARCIA RN; Confirmation: Confirmed ; Classification: Patient Stated ; Code: 6580974829 ; Contributor System: [employer] ; Last Updated: 03/17/2014 19:28 EDT ; Life Cycle Date: 06/24/2013 ; Life Cycle Status: Active ; Vocabulary: SNOMED CT Arthritis (SNOMED CT :4743758 ) Name of Problem: Arthritis ; Recorder: MIGEL GARCIA RN; Confirmation: Confirmed ; Classification: Patient Stated ; Code: 1035015 ; Contributor System: [employer] ; Last Updated: 03/17/2014 19:28 EDT ; Life Cycle Date: 06/24/2013 ; Life Cycle Status: Active ; Vocabulary: SNOMED CT At risk for sleep apnea (IMO :03955012 ) Name of Problem: At risk for sleep apnea ; Recorder: SYSTEM, SYSTEM; Confirmation: Confirmed ; Classification: Medical ; Code: 29796906 ; Last Updated: 04/01/2019 10:50 EDT ; Life Cycle Date: 04/01/2019 ; Life Cycle Status: Active ; Vocabulary: IMO Back pain (SNOMED CT :1029690478 ) Name of Problem: Back pain ; Recorder: BIANKA DUNN RN; Confirmation: Confirmed ; Classification: Medical ; Code: 1138733153 ; Contributor System: [employer] ; Last Updated: 04/01/2019 10:23 EDT ; Life Cycle Date: 04/01/2019 ; Life Cycle Status: Active ; Vocabulary: SNOMED CT BP+ - Hypertension (SNOMED CT :536500172 ) Name of Problem: BP+ - Hypertension ; Recorder: MIGEL GARCIA RN; Confirmation: Confirmed ; Classification: Patient Stated ; Code: 598926618 ; Contributor System: [employer] ; Last Updated: 03/22/2014 10:58 EDT ; Life Cycle Date: 06/24/2013 ; Life Cycle Status: Active ; Vocabulary: SNOMED CT Cataract///beginning stage (SNOMED CT :930142359 ) Name of Problem: Cataract///beginning stage ; Recorder: BIANKA DUNN RN; Confirmation: Confirmed ; Classification: Medical ; Code: 943996779 ; Contributor System: [employer] ; Last Updated: 04/01/2019 10:22 EDT ; Life Cycle Date: 04/01/2019 ; Life Cycle Status: Active ; Vocabulary: SNOMED CT Chest pain///cath negative (SNOMED CT :10570664 ) Name of Problem: Chest pain///cath negative ; Onset Date: 2012 ; Recorder: BIANKA DUNN RN; Confirmation: Confirmed ; Classification: Medical ; Code: 85741346 ; Contributor System: [employer] ; Last Updated: 04/01/2019 10:27 EDT ; Life Cycle Date: 04/01/2019 ; Life Cycle Status: Active ; Vocabulary: SNOMED CT Colon polyps (SNOMED CT :504932982 ) Name of Problem: Colon polyps ; Recorder: BIANKA DUNN RN; Confirmation: Confirmed ; Classification: Medical ; Code: 806077406 ; Contributor System: [employer] ; Last Updated: 04/01/2019 10:22 EDT ; Life Cycle Date: 04/01/2019 ; Life Cycle Status: Active ; Vocabulary: SNOMED CT Completely occulded L carotid (SNOMED CT :6923001508 ) Name of Problem: Completely occulded L carotid ; Recorder: STEPHANIE ARREGUIN RN; Confirmation: Confirmed ; Classification: Medical ; Code: 6756379892 ; Contributor System: [employer] ; Last Updated: 04/23/2016 17:54 EDT ; Life Cycle Date: 04/25/2015 ; Life Cycle Status: Active ; Vocabulary: SNOMED CT Congestive heart failure - due to Avandia resolved (SNOMED CT :64356969 ) Name of Problem: Congestive heart failure - due to Avandia resolved ; Recorder: MIGEL GARCIA RN; Confirmation: Confirmed ; Classification: Patient Stated ; Code: 54907338 ; Contributor System: [employer] ; Last Updated: 04/23/2016 17:53 EDT ; Life Cycle Date: 06/24/2013 ; Life Cycle Status: Active ; Vocabulary: SNOMED CT ; Comments: 06/24/2013 10:32 - MIGEL GARCIA RN per pt and DM - Diabetes mellitus (SNOMED CT :804926514 ) Name of Problem: DM - Diabetes mellitus ; Recorder: MIGEL GARCIA RN; Confirmation: Confirmed ; Classification: Patient Stated ; Code: 016093321 ; Contributor System: Power[employer] ; Last Updated: 03/22/2014 10:54 EDT ; Life Cycle Date: 06/24/2013 ; Life Cycle Status: Active ; Vocabulary: SNOMED CT Dyslipidemia (SNOMED CT :4456361582 ) Name of Problem: Dyslipidemia ; Recorder: MIGEL GARCIA RN; Confirmation: Confirmed ; Classification: Patient Stated ; Code: 8969306564 ; Contributor System: [employer] ; Last Updated: 03/17/2014 19:28 EDT ; Life Cycle Date: 06/24/2013 ; Life Cycle Status: Active ; Vocabulary: SNOMED CT Fibromyalgia (SNOMED CT :279204640 ) Name of Problem: Fibromyalgia ; Recorder: BIANKA DUNN RN; Confirmation: Confirmed ; Classification: Medical ; Code: 942792603 ; Contributor System: [employer] ; Last Updated: 04/01/2019 10:24 EDT ; Life Cycle Date: 04/01/2019 ; Life Cycle Status: Active ; Vocabulary: SNOMED CT H/O ischemic left MCA stroke (SNOMED CT :3495972931 ) Name of Problem: H/O ischemic left MCA stroke ; Onset Date: 09/05/2012 ; Recorder: SYBIL MCGILL MD-EMR; Confirmation: Confirmed ; Classification: Medical ; Code: 5666778494 ; Contributor System: [employer] ; Last Updated: 04/23/2016 17:54 EDT ; Life Cycle Date: 04/23/2016 ; Life Cycle Status: Active ; Responsible Provider: SYBIL MCGILL MD-EMR; Vocabulary: SNOMED CT Hiatal hernia (SNOMED CT :872880659 ) Name of Problem: Hiatal hernia ; Recorder: SYBIL MCGILL MD-EMR; Confirmation: Complaint of ; Classification: Medical ; Code: 372988155 ; Contributor System: [employer] ; Last Updated: 12/03/2015 16:45 EST ; Life Cycle Date: 12/03/2015 ; Life Cycle Status: Active ; Vocabulary: SNOMED CT Lumbar disc disease (SNOMED CT :2166367652 ) Name of Problem: Lumbar disc disease ; Recorder: BIANKA DUNN RN; Confirmation: Confirmed ; Classification: Medical ; Code: 2041078987 ; Contributor System: [employer] ; Last Updated: 04/01/2019 10:25 EDT ; Life Cycle Date: 04/01/2019 ; Life Cycle Status: Active ; Vocabulary: SNOMED CT Memory deficit///slow recall (SNOMED CT :1123783515 ) Name of Problem: Memory deficit///slow recall ; Recorder: BIANKA DUNN RN; Confirmation: Confirmed ; Classification: Medical ; Code: 8541322659 ; Contributor System: [employer] ; Last Updated: 04/01/2019 10:51 EDT ; Life Cycle Status: Active ; Vocabulary: SNOMED CT Numbness and tingling//right leg (SNOMED CT :5483913597 ) Name of Problem: Numbness and tingling//right leg ; Recorder: BIANKA DUNN RN; Confirmation: Confirmed ; Classification: Medical ; Code: 9817472602 ; Contributor System: [employer] ; Last Updated: 04/01/2019 10:23 EDT ; Life Cycle Date: 04/01/2019 ; Life Cycle Status: Active ; Vocabulary: SNOMED CT Obesity (SNOMED CT :8682943784 ) Name of Problem: Obesity ; Recorder: SYBIL MCGILL MD-AVINASH; Confirmation: Confirmed ; Classification: Medical ; Code: 9588218009 ; Contributor System: [employer] ; Last Updated: 04/23/2016 17:53 EDT ; Life Cycle Date: 04/23/2016 ; Life Cycle Status: Active ; Responsible Provider: SYBIL MCGILL MD-EMR; Vocabulary: SNOMED CT Pain//chronic (SNOMED CT :584908385 ) Name of Problem: Pain//chronic ; Recorder: BIANKA DUNN RN; Confirmation: Confirmed ; Classification: Medical ; Code: 243360416 ; Contributor System: [employer] ; Last Updated: 04/01/2019 10:24 EDT ; Life Cycle Date: 04/01/2019 ; Life Cycle Status: Active ; Vocabulary: SNOMED CT Right leg pain (SNOMED CT :1031975340 ) Name of Problem: Right leg pain ; Recorder: BIANKA DUNN RN; Confirmation: Confirmed ; Classification: Medical ; Code: 9090245597 ; Contributor System: PowerChart ; Last Updated: 04/01/2019 10:23 EDT ; Life Cycle Date: 04/01/2019 ; Life Cycle Status: Active ; Vocabulary: SNOMED CT Sleep apnea///risk (SNOMED CT :797457997 ) Name of Problem: Sleep apnea///risk ; Recorder: BIANKA DUNN RN; Confirmation: Confirmed ; Classification: Medical ; Code: 768976673 ; Contributor System: [employer] ; Last Updated: 04/01/2019 10:37 EDT ; Life Cycle Date: 04/01/2019 ; Life Cycle Status: Active ; Vocabulary: SNOMED CT Wears glasses (SNOMED CT :134949162 ) Name of Problem: Wears glasses ; Recorder: BIANKA DUNN RN; Confirmation: Confirmed ; Classification: Medical ; Code: 908580653 ; Contributor System: [employer] ; Last Updated: 04/01/2019 10:19 EDT ; Life Cycle Date: 04/01/2019 ; Life Cycle Status: Active ; Vocabulary: SNOMED CT Diagnoses(Active) Anxiety Date: 10/05/2019 ; Diagnosis Type: Reason For Visit ; Confirmation: Complaint of ; Clinical Dx: Anxiety ; Classification: Medical ; Clinical Service: Emergency medicine ; Code: PNED ; Probability: 0 ; Diagnosis Code: [id number] Chest pain Date: 10/05/2019 ; Diagnosis Type: Reason For Visit ; Confirmation: Complaint of ; Clinical Dx: Chest pain ; Classification: Medical ; Clinical Service: Emergency medicine ; Code: PNED ; Probability: 0 ; Diagnosis Code: [id number] ED Height and Weight Height Source : Stated Height Entry Format : Big Arm Height, Feet : 5 ft(Converted to: 152 cm, 60 Inch) Height, Inches : 7 Inch(Converted to: 0 ft 7 Inch, 17.78 cm) Clinical Height : 170.18 cm Weight Source, ED : Critical estimated dosing weight Weight Entry Format : Big Arm Weight, Pounds : 250 lb Clinical Dosing Weight : 113.64 kg Body Surface Area (BSA) : 2.23 m2 Body Mass Index : 39.2 kg/m2 (HI) [place] Body Weight (IBW) : 61.16 kg Urvashi Ta RN - 10/05/2019 18:05 EST BAND MACHINE OPERATOR Medications and Interventions Treatments Prior to Arrival : Other: 18 G right wrist, aspirin 81mg then pt reports, I am allergic . Urvashi Ta RN - 10/05/2019 18:05 EST documented in this encounter Plan of Treatment Not on file documented as of this encounter Visit Diagnoses Not on filedocumented in this encounter
--- OUTSIDE RECORDS SUMMARY | 2025-09-06 08:11 | XMS_ITS | Encounter Summary ---
Author Organization [employer] ([place], [place], [place], [place], [place]) Address [address] [place] [address] Care Team Providers Care Byproducts Maker Name Role Phone Unavailable Primary Care Provider Unavailabl e Encounter Details Date Type Department Care Team (Late st Contact Info) Description 07/12/2019 Transcribed Document [facility] [place] [address] [place] [address] ProviderChano MD [address], [place] [id number] Social History Tobacco Use Types Packs/Day Years [...]
--- OUTSIDE RECORDS SUMMARY | 2025-09-06 08:11 | XMS_ITS | Encounter Summary ---
Author Organization [employer] ([place], [place], [place], [place], [place]) Address [address] [place] [address] Care Team Providers Care Electrical Engineering Draftsperson Name Role Phone Unavailable Primary Care Provider Unavailabl e Encounter Details Date Type Department Care Team (Late st Contact Info) Description 07/12/2019 Transcribed Document [facility] [place] [facility] [place] [address] ProviderChano MD [facility] [place], [place] [id number] Social History Tobacco Use Types Packs/Day Years [...] Cx: No growth 10/4 AFB: No growth /4 Anaerobic Cx: No growth 10/3 Urine Cx: Suggested contamination Vanc levels: A/P: 1) Based on patient's age, weight, and SCr, will start Vancomycin 1500mg IV Q24H on 07/12 @1600 2) Will obtain Vancomycin trough on 07/14 @1500 -Hold for trough >20. 3) Will continue to dose and monitor as needed Lia Huddleston PharmD PGY-1 Gear Cutting Machine Set Up Operator Pager: [phone] Electronically signed by Summer [facility] Conversion Process Development Engineer Cerner at 01/23/2023 1:15 PM CDT documented in this encounter Plan of Treatment Not on file documented as of this encounter Visit Diagnoses Not on filedocumented in this encounter
--- OUTSIDE RECORDS SUMMARY | 2025-09-06 08:11 | XMS_ITS | Encounter Summary ---
Author Organization [employer] ([place], [place], [place], [place], [place]) Address [address] [place] [address] Care Team Providers Care Jewel Stringer Name Role Phone Unavailable Primary Care Provider Unavailabl e Encounter Details Date Type Department Care Team (Late st Contact Info) Description 12/04/2018 Transcribed Document [facility] [place] Medicine [address] [place] [address] ProviderChano MD [address] [place] [id number] Social History Tobacco Use Types Packs/Day [...] Chano Gatica MD - 12/04/2018 1:53 PM DECK OFFICER [address] [place] [address] PERSON INFORMATION Name LUDY ANTONIO Age 68 Years 1950 Sex Female Language Uruguayan PCP QUIRINO SENIOR (REF) Marital Status Med Service Emergency Medicine Acct# Arrival 12/04/2018 11:53:00 Visit Reason Leg pain-swelling; LEG PAIN Acuity 3 - Urgent LOS 000 01:56 Depart Date: 12/04/18 01:49 PM Address: [address] [facility] [address] Comment: PROVIDER INFORMATION Provider Role Assigned Unassigned [...] Please contact the Patient Resource Center at [phone] if you need assistance establishing a primary care physician in the future. With: Address: When: [address] [place] [id number] [place] (1) Within 2 to 3 days With: Address: When: [address] [place] [phone] [place] (5) Within 2 to 3 days Comment: documented in this encounter Plan of Treatment Not on file documented as of this encounter Visit Diagnoses Not on filedocumented in this encounter
--- OUTSIDE RECORDS SUMMARY | 2025-09-06 08:11 | XMS_ITS | Encounter Summary ---
Author Organization [employer] ([place], [place], [place], [place], [place]) Address [address] [place] [address] Care Team Providers Care Broadcast Program Director Name Role Phone Unavailable Primary Care Provider Unavailabl e Encounter Details Date Type Department Care Team (Late st Contact Info) Description 12/04/2018 Transcribed Document [facility] [place] [address] [place] [address] ProviderhCano MD [address], [place] [phone] Social History Tobacco Use Types Packs/Day Years Used Date Smoking Tobacco: Never Assessed Comments Unknown Sex and Gender Information Value Date Recorded Sex Assigned at Not on file Legal Sex Female 2:07 PM CDT Gender Identity Not on file Sexual Orientation Not on file documented as of this encounter Miscellaneous Notes * Cerner Conversion Note - Chano ProviderMD - 12/04/2018 11:53 AM MECHANICAL ENGINEERING OFFICER ED Assessment Entered On: 12/04/2018 13:23 EST [...] Communication Barrier : None Primary Language : Brazilian Any Spiritual/Cultural Needs or Requests : No [...] [place], ED Nurse) Employment/School: Retired, Previous employment/school: [employer]. (Last Updated: 07/17/2014 00:15:13 EDT by KATIE [...]
--- OUTSIDE RECORDS SUMMARY | 2025-09-06 08:11 | XMS_ITS | Encounter Summary ---
Author Organization [employer] ([place], [place], [place], [place], [place]) Address [address] [place] [address] Care Team Providers Care General Manager In Training Name Role Phone Unavailable Primary Care Provider Unavailabl e Encounter Details Date Type Department Care Team (Late st Contact Info) Description 12/04/2018 Transcribed Document [facility] [place] [address] [place] [address] ProviderChano MD [address], [place] [id number] Social History Tobacco Use Types Packs/Day Years Used Date Smoking Tobacco: Never Assessed Comments Unknown Sex and Gender Information Value Date Recorded Sex Assigned at Not on file Legal Sex Female 2:07 PM CDT Gender Identity Not on file Sexual Orientation Not on file documented as of this encounter Miscellaneous Notes * Cerner Conversion Note - Historical ProviderMD - 12/04/2018 1:49 PM DATABASE DESIGN ANALYST ED Discharge Entered On: 12/04/2018 13:49 EST Performed On: 12/04/2018 13:49 EST by Minerva Mcconnell director microbiology Process Patient Disposition : Discharge Personal Belongings [...] 12/04/2018 13:49 EST Electronically signed by Summer [facility] Conversion Baler Operator Cerner at 01/23/2023 1:24 PM CDT documented in this encounter Plan of Treatment Not on file documented as of this encounter Visit Diagnoses Not on filedocumented in this encounter
--- OUTSIDE RECORDS SUMMARY | 2025-09-06 08:11 | XMS_ITS | Encounter Summary ---
Author Organization [employer] ([place], [place], [place], [place], [place]) Address [address] [place] [address] Care Team Providers Care Plant Propagator Name Role Phone Unavailable Primary Care Provider Unavailabl e Encounter Details Date Type Department Care Team (Late st Contact Info) Description 07/12/2019 Transcribed Document [facility] [place] [facility] [place] [address] ProviderChano MD [address] [place] [id number] Social History Tobacco Use Types Packs/Day Years [...] epithelial cells. Urine culture was positive for 10???[id number] CFU/mL. CT of the L-spine was negative. [...] or confusion. ROS and hx discussed with [id number], has had ceofusion and fever last 2 [...] cefTRIAXone (Rocephin) - 2 Gram, IV Piggyback, [id number], infuse over 30 Minute(s), Routine Anticoagulant enoxaparin [...] fluticasone nasal (Flonase) - 1 Puff, Nasal, [place], Daily, Routine Pain Meds morphine - 2 [...] 12 00:06) 72 (JUL 12:06) 72 (JUL 12:06) Mon HR 81 (JUL 12 10:59) 71 [...] (JUL 03) HB 11.5 (JUL 07) 11.5 (OCT 06) 12.6 (OCT 04) 12.0 (JUL 03) HCT 35.7 (JUL 07) 35.6 (OCT 06) 39.8 (OCT 04) 37.3 (JUL 03) Plt 263 (JUL 07) 230 (OCT 06) 267 (JUL 04) 268 (JUL 03) Na 142 (JUL 07) 140 (JUL 06) 142 (JUL 09) 141 (JUL 03) K 3.8 (JUL 07) 4.2 (OCT 06) 4.4 (JUL 04) 3.9 (JUL 03) Cl 104 (JUL 12) 104 (JUL 06) [...] 63 (JUL 08) T Bili 0.3 (JUL 07) 0.3 (JUL [...]
--- OUTSIDE RECORDS SUMMARY | 2025-09-06 08:11 | XMS_ITS | Encounter Summary ---
Author Organization [employer] ([place], [place], [place], [place], [place]) Address [address] [place] [address] Care Team Providers Care Cobol Application Developer Name Role Phone Unavailable Primary Care Provider Unavailabl e Encounter Details Date Type Department Care Team (Late st Contact Info) Description 07/12/2019 Transcribed Document [facility] [place] [facility] [place] [address] ProviderChano MD [facility] [place], [place] [phone] Social History Tobacco Use Types Packs/Day Years Used Date Smoking Tobacco: Never Assessed Comments Unknown Sex and Gender Information Value Date Recorded Sex Assigned at Not on file Legal Sex Female 2:07 PM CDT Gender Identity Not on file Sexual Orientation Not on file documented as of this encounter Miscellaneous Notes * Cerner Conversion Note - Historical ProviderMD - 07/12/2019 10:00 AM CDT Patient: LUDY [...] Rocephin: 2 Gram, 100 mL/Hr, IV Piggyback, [id number] SEROquel: 6.25 mg, Oral, BID Senna S: [...] mL: 1,500 mg, 250 mL/Hr, IV Piggyback, [id number] Documented Medications Documented Aciphex: 20 mg, Oral, BID Advair Diskus 250 mcg-50 mcg inhalation powder: 1 Puff, Inhalation, Daily, PRN: as needed, 0 Refill(s) Centrum: 1 Tab, Oral, Daily Cymbalta 60 mg oral delayed release capsule: 1 Cap, Oral, At Bedtime, (do not crush or chew) Flonase 0.05 mg/inh nasal spray: 2 [place], Nasal, Daily, 16 Gram, 0 Refill(s) Lantus: [...] Bedtime Flonase 0.05 mg/inh nasal spray 2 [place], Nasal, Daily Lantus 60 Units, SubCutaneous, At [...] Scheduled: (15) cefTRIAXone 2 Gram, IV Piggyback, [id number] docusate sodium 100 mg cap 100 mg [...] 0.9% 250 mL 1,500 mg, IV Piggyback, [id number] Continuous: (0) PRN: (8) acetaminophen 325 mg [...] list: Medical Wears glasses / SNOMED CT 547908437 / Confirmed Sleep apnea///risk / SNOMED CT 438682317 / Confirmed Colon polyps / SNOMED CT 494438692 / Confirmed Right leg pain / SNOMED CT 1533663565 / Confirmed Obesity / SNOMED CT 0726130481 / Confirmed Numbness and tingling//right leg / SNOMED CT 1909318618 / Confirmed Memory deficit///slow recall / SNOMED CT 5666131359 / Confirmed H/O ischemic left MCA stroke / SNOMED CT 7846258196 / Confirmed Hiatal hernia / SNOMED CT 187490103 / Complaint of Fibromyalgia / SNOMED CT 812938235 / Confirmed Lumbar disc disease / SNOMED CT 7425737590 / Confirmed Completely occulded L carotid / SNOMED CT 2600547192 / Confirmed Chest pain///cath negative / SNOMED CT 55601590 / Confirmed Cataract///beginning stage / SNOMED CT 232931875 / Confirmed Back pain / SNOMED CT 1004001921 / Confirmed At risk for sleep apnea / IMO 05853560 / Confirmed Pain//chronic / SNOMED CT 590854373 / Confirmed, Active Problems (24) Acid reflux [...] cm Electronically signed by Julian Wheeler Conversion Gas Compressor Turbine Operator Cerner at 01/23/2023 1:29 PM CDT documented in this encounter Plan of Treatment Not on file documented as of this encounter Visit Diagnoses Not on filedocumented in this encounter
--- OUTSIDE RECORDS SUMMARY | 2025-09-06 08:11 | XMS_ITS | Encounter Summary ---
Author Organization [employer] ([place], [place], [place], [place], [place]) Address [address] [place] [address] Care Team Providers Care User Experience Researcher Name Role Phone Unavailable Primary Care Provider Unavailabl e Encounter Details Date Type Department Care Team (Late st Contact Info) Description 03/25/2021 Transcribed Document [facility] [place] Family Medicine [facility] [place] [address] ProviderChano MD [address] [place] [address] [phone] Social History Tobacco Use Types Packs/Day Years [...] Urgent Tracking Group : [facility] ED MIGEL ANDREW Rn - 03/25/2021 22:32 [...] metFORMIN ; Type: Allergy ; Updated By: CONTRIBUTOR_LIZ ARMANDO; Reviewed Date: 03/25/2021 22:37 EDT NSAIDs Estimated Onset Date: Unspecified ; Created By: LIZ VILLEGAS; Reaction Status: Active ; Category: Drug ; Substance: NSAIDs ; Type: Allergy ; Updated By: LIZ VILLEGAS; Reviewed Date: 03/25/2021 22:37 EDT statins Estimated Onset Date: Unspecified ; Reactions: Fenofibrate, Fenofibrate ; Created By: LIZ VILLEGAS; Reaction Status: Active ; Category: Drug ; Substance: statins ; Type: Allergy ; Updated By: LIZ VILLEGAS; Reviewed Date: 03/25/2021 22:37 EDT Diagnosis Control ED (As Of: 03/25/2021 22:38:02 EDT) Problems(Active) Acid reflux (SNOMED CT :603953048 ) Name of Problem: Acid reflux ; Recorder: MIGEL GARCIA RN; Confirmation: Confirmed ; Classification: Patient Stated ; Code: [id number] ; Contributor System: Kicksend ; Last Updated: 03/17/2014 19:28 EDT ; Life Cycle Date: 06/24/2013 ; Life Cycle Status: Active ; Vocabulary: SNOMED CT Allergic asthma (SNOMED CT :5276863351 ) Name of Problem: Allergic asthma ; Recorder: MIGEL GARCIA RN; Confirmation: Confirmed ; Classification: Patient Stated ; Code: 2102159487 ; Contributor System: PopUpChart ; Last Updated: 03/17/2014 19:28 EDT ; Life Cycle Date: 06/24/2013 ; Life Cycle Status: Active ; Vocabulary: SNOMED CT Arthritis (SNOMED CT :8754718 ) Name of Problem: Arthritis ; Recorder: MIGEL GARCIA RN; Confirmation: Confirmed ; Classification: Patient Stated ; Code: 5232097 ; Contributor System: PowerChart ; Last Updated: 03/17/2014 19:28 EDT ; Life Cycle Date: 06/24/2013 ; Life Cycle Status: Active ; Vocabulary: SNOMED CT At risk for sleep apnea (IMO :51607294 ) Name of Problem: At risk for sleep apnea ; Recorder: SYSTEM, SYSTEM; Confirmation: Confirmed ; Classification: Medical ; Code: [id number] ; Last Updated: 04/01/2019 10:50 EDT ; Life Cycle Date: 04/01/2019 ; Life Cycle Status: Active ; Vocabulary: IMO Back pain (SNOMED CT :5011940210 ) Name of Problem: Back pain ; Recorder: BIANKA DUNN RN; Confirmation: Confirmed ; Classification: Medical ; Code: 7461749426 ; Contributor System: PopUpChart ; Last Updated: 04/01/2019 10:23 EDT ; Life Cycle Date: 04/01/2019 ; Life Cycle Status: Active ; Vocabulary: SNOMED CT BP+ - Hypertension (SNOMED CT :990787661 ) Name of Problem: BP+ - Hypertension ; Recorder: MIGEL GARCIA RN; Confirmation: Confirmed ; Classification: Patient Stated ; Code: 524425034 ; Contributor System: PopUpChart ; Last Updated: 03/22/2014 10:58 EDT ; Life Cycle Date: 06/24/2013 ; Life Cycle Status: Active ; Vocabulary: SNOMED CT Cataract///beginning stage (SNOMED CT :984110594 ) Name of Problem: Cataract///beginning stage ; Recorder: BIANKA DUNN RN; Confirmation: Confirmed ; Classification: Medical ; Code: 377145455 ; Contributor System: PopUpChart ; Last Updated: 04/01/2019 10:22 EDT ; Life Cycle Date: 04/01/2019 ; Life Cycle Status: Active ; Vocabulary: SNOMED CT Chest pain///cath negative (SNOMED CT :16414378 ) Name of Problem: Chest pain///cath negative ; Onset Date: 2012 ; Recorder: BIANKA DUNN RN; Confirmation: Confirmed ; Classification: Medical ; Code: 07782437 ; Contributor System: PowerChart ; Last Updated: 04/01/2019 10:27 EDT ; Life Cycle Date: 04/01/2019 ; Life Cycle Status: Active ; Vocabulary: SNOMED CT Colon polyps (SNOMED CT :499736723 ) Name of Problem: Colon polyps ; Recorder: BIANKA DUNN RN; Confirmation: Confirmed ; Classification: Medical ; Code: 823102265 ; Contributor System: PowerChart ; Last Updated: 04/01/2019 10:22 EDT ; Life Cycle Date: 04/01/2019 ; Life Cycle Status: Active ; Vocabulary: SNOMED CT Completely occulded L carotid (SNOMED CT :3087742010 ) Name of Problem: Completely occulded L carotid ; Recorder: STEPHANIE ARREGUIN RN; Confirmation: Confirmed ; Classification: Medical ; Code: 6353582171 ; Contributor System: PopUpChart ; Last Updated: 04/23/2016 17:54 EDT ; Life Cycle Date: 04/25/2015 ; Life Cycle Status: Active ; Vocabulary: SNOMED CT Congestive heart failure - due to Avandia resolved (SNOMED CT :27718780 ) Name of Problem: Congestive heart failure - due to Avandia resolved ; Recorder: MIGEL GARCIA RN; Confirmation: Confirmed ; Classification: Patient Stated ; Code: 29941006 ; Contributor System: PowerChart ; Last Updated: 04/23/2016 17:53 EDT ; Life Cycle Date: 06/24/2013 ; Life Cycle Status: Active ; Vocabulary: SNOMED CT ; Comments: 06/24/2013 10:32 - MIGEL GARCIA RN per pt and CVA (cerebral vascular accident) (SNOMED CT :929267562 ) Name of Problem: CVA (cerebral vascular accident) ; Recorder: MIGEL ANDREW Rn; Confirmation: Confirmed ; Classification: Medical ; Code: 533178795 ; Contributor System: PowerChart ; Last Updated: 03/25/2021 22:37 EDT ; Life Cycle Date: 03/25/2021 ; Life Cycle Status: Active ; Vocabulary: SNOMED CT DM - Diabetes mellitus (SNOMED CT :661519730 ) Name of Problem: DM - Diabetes mellitus ; Recorder: MIGEL GARCIA RN; Confirmation: Confirmed ; Classification: Patient Stated ; Code: 343390342 ; Contributor System: PowerChart ; Last Updated: 03/22/2014 10:54 EDT ; Life Cycle Date: 06/24/2013 ; Life Cycle Status: Active ; Vocabulary: SNOMED CT Dyslipidemia (SNOMED CT :0615540358 ) Name of Problem: Dyslipidemia ; Recorder: MIGEL GARCIA RN; Confirmation: Confirmed ; Classification: Patient Stated ; Code: 1445671452 ; Contributor System: PopUpChart ; Last Updated: 03/17/2014 19:28 EDT ; Life Cycle Date: 06/24/2013 ; Life Cycle Status: Active ; Vocabulary: SNOMED CT Fibromyalgia (SNOMED CT :331800232 ) Name of Problem: Fibromyalgia ; Recorder: BIANKA DUNN RN; Confirmation: Confirmed ; Classification: Medical ; Code: 710067830 ; Contributor System: PowerChart ; Last Updated: 04/01/2019 10:24 EDT ; Life Cycle Date: 04/01/2019 ; Life Cycle Status: Active ; Vocabulary: SNOMED CT H/O ischemic left MCA stroke (SNOMED CT :3390423498 ) Name of Problem: H/O ischemic left MCA stroke ; Onset Date: 09/05/2012 ; Recorder: SYBIL MCGILL MD-EMR; Confirmation: Confirmed ; Classification: Medical ; Code: 7724036210 ; Contributor System: PowerChart ; Last Updated: 04/23/2016 17:54 EDT ; Life Cycle Date: 04/23/2016 ; Life Cycle Status: Active ; Responsible Provider: SYBIL MCGILL MD-EMR; Vocabulary: SNOMED CT Hiatal hernia (SNOMED CT :324022993 ) Name of Problem: Hiatal hernia ; Recorder: SYBIL MCGILL MD-EMR; Confirmation: Complaint of ; Classification: Medical ; Code: 702894755 ; Contributor System: PowerChart ; Last Updated: 12/03/2015 16:45 EST ; Life Cycle Date: 12/03/2015 ; Life Cycle Status: Active ; Vocabulary: SNOMED CT Lumbar disc disease (SNOMED CT :8018596945 ) Name of Problem: Lumbar disc disease ; Recorder: BIANKA DUNN RN; Confirmation: Confirmed ; Classification: Medical ; Code: 4969289293 ; Contributor System: PowerChart ; Last Updated: 04/01/2019 10:25 EDT ; Life Cycle Date: 04/01/2019 ; Life Cycle Status: Active ; Vocabulary: SNOMED CT Memory deficit///slow recall (SNOMED CT :9224485058 ) Name of Problem: Memory deficit///slow recall ; Recorder: BIANKA DUNN RN; Confirmation: Confirmed ; Classification: Medical ; Code: 0542688015 ; Contributor System: PowerChart ; Last Updated: 04/01/2019 10:51 EDT ; Life Cycle Status: Active ; Vocabulary: SNOMED CT Numbness and tingling//right leg (SNOMED CT :1143016221 ) Name of Problem: Numbness and tingling//right leg ; Recorder: BIANKA DUNN RN; Confirmation: Confirmed ; Classification: Medical ; Code: 4771780825 ; Contributor System: PowerChart ; Last Updated: 04/01/2019 10:23 EDT ; Life Cycle Date: 04/01/2019 ; Life Cycle Status: Active ; Vocabulary: SNOMED CT Obesity (SNOMED CT :5762405406 ) Name of Problem: Obesity ; Recorder: SYBIL MCGILL MD-EMR; Confirmation: Confirmed ; Classification: Medical ; Code: 8318017408 ; Contributor System: PowerChart ; Last Updated: 04/23/2016 17:53 EDT ; Life Cycle Date: 04/23/2016 ; Life Cycle Status: Active ; Responsible Provider: SYBIL MCGILL MD-EMR; Vocabulary: SNOMED CT Pain//chronic (SNOMED CT :574473029 ) Name of Problem: Pain//chronic ; Recorder: BIANKA DUNN RN; Confirmation: Confirmed ; Classification: Medical ; Code: 512383558 ; Contributor System: PowerChart ; Last Updated: 04/01/2019 10:24 EDT ; Life Cycle Date: 04/01/2019 ; Life Cycle Status: Active ; Vocabulary: SNOMED CT Right leg pain (SNOMED CT :8850528726 ) Name of Problem: Right leg pain ; Recorder: BIANKA DUNN RN; Confirmation: Confirmed ; Classification: Medical ; Code: 4830109069 ; Contributor System: PowerChart ; Last Updated: 04/01/2019 10:23 EDT ; Life Cycle Date: 04/01/2019 ; Life Cycle Status: Active ; Vocabulary: SNOMED CT Sleep apnea///risk (SNOMED CT :219159766 ) Name of Problem: Sleep apnea///risk ; Recorder: BIANKA DUNN RN; Confirmation: Confirmed ; Classification: Medical ; Code: 197110161 ; Contributor System: PowerChart ; Last Updated: 04/01/2019 10:37 EDT ; Life Cycle Date: 04/01/2019 ; Life Cycle Status: Active ; Vocabulary: SNOMED CT Wears glasses (SNOMED CT :374183919 ) Name of Problem: Wears glasses ; Recorder: BIANKA DUNN RN; Confirmation: Confirmed ; Classification: Medical ; Code: 547917634 ; Contributor System: Kicksend ; Last Updated: 04/01/2019 10:19 EDT ; Life Cycle Date: 04/01/2019 ; Life Cycle Status: Active ; Vocabulary: SNOMED CT Diagnoses(Active) Constipation Date: 03/25/2021 ; Diagnosis Type: Reason For Visit ; Confirmation: Complaint of ; Clinical Dx: Constipation ; Classification: Medical ; Clinical Service: Emergency medicine ; Code: PNED ; Probability: 0 ; Diagnosis Code: [id number] ED Height and Weight Height Source : Stated Height Entry Format : [place] Height, Feet : 5 ft(Converted to: 152 cm, 60 Inch) Height, Inches : 4 Inch(Converted to: 0 ft 4 Inch, 10.16 cm) Clinical Height : 162.56 cm Weight Source, ED : Critical estimated dosing weight Weight Entry Format : [place] Weight, Pounds : 245 lb Clinical Dosing Weight : 111.36 kg Body Surface Area (BSA) : 2.13 m2 Body Mass Index : 42.1 kg/m2 (>HHI) [place] Body Weight (IBW) : 54.3 kg MIGEL [...]
--- OUTSIDE RECORDS SUMMARY | 2025-09-06 08:11 | XMS_ITS | Encounter Summary ---
Author Organization [employer] ([place], [place], [place], [place], [place]) Address [address] [place] [address] Care Team Providers Care Budget Consultant Name Role Phone Unavailable Primary Care Provider Unavailabl e Encounter Details Date Type Department Care Team (Late st Contact Info) Description 02/07/2019 Transcribed Document [facility] [place] [address] [place] [address] ProviderChano MD [address] [place] [address] Social History Tobacco Use Types [...] Gatica MD - 02/07/2019 5:47 AM CDT [facility] [place] [address] LUDY ANTONIO :1950 Visit Time:02/07/2019 Your Visit Summary Your Care Team Admitting Physician - RASHEL GRAVES MD Attending Physician - RASHEL GRAVES MD Primary Care Physician - QUIRINO SENIOR (REF)[facility] Referring Physician - RASHEL GRAVES MD Your Diagnosis Acute right hip pain Hip pain-swelling, Hip pain-swelling Patient Portal Reminder: Be sure to sign up for the [facility] patient portal, which gives you 24/7 access to your medical information ??? including these discharge instructions ??? using your computer, smartphone, or tablet. Just go to [employer] to get started. Questions? Call . You [...] When Within 2 to 3 days Where: [address] [place], [place] [id number] X-IO (1) Allergies Avandia (CHF) NSAIDs fenofibrate metFORMIN [...] (Flonase 0.05 mg/ inh nasal spray) 2 Bronson(s) Nasal Every Day as needed for Allergies [...] 09/22/2006 Document Revised: 02/21/2017 Document Reviewed: 07/04/2015 [employer] Interactive Patient Education ?? 2017 [employer] Hip Pain Your hip is the joint [...] 03/12/2011 Document Revised: 02/27/2017 Document Reviewed: 05/19/2014 [employer] Interactive Patient Education ?? 2017 [employer] Emergency Awareness and Preventative Care STROKE [...] Assistance with quitting is available by contacting 2-385-GRPX-NOW. This is a free resource providing counseling, support, and referral. Or you may contact your personal physician. [employer] Suicide Prevention Lifeline: The National Suicide Prevention [...] was given the opportunity to ask questions. Patient/Quarter Section Ironer Name: Patient/Quarter Section Ironer Signature: Relationship to Patient: Clinician/Hospital Quarter Section Ironer Signature: Please Provide a Telephone Number Where You Can Be Reached: Is it Permissible To Leave a Message? Date: documented in this encounter Plan of Treatment Not on file documented as of this encounter Visit Diagnoses Not on filedocumented in this encounter
--- OUTSIDE RECORDS SUMMARY | 2025-09-06 08:11 | XMS_ITS | Clinical Summary ---
Author Organization [facility] , [facility] Address [address] [place] [address] Phone Care Team Providers Care Export Documents Clerk Name Role Phone ROMÁN THOMPSON, BRENDON Primary Care Provider [phone] Damien THOMPSON, Molly Win Unavailable [phone] Reason for Visit and Chief Complaint The Chief Complaint is: left knee pain Problems Includes: Problems addressed during this encounter and other active Problems All Visits Onset Date Resolved Date Provider Condition S tatus Joint Pain Left Knee 02/14/2023 Shahbaz Broderick on PA-C Active Last Documented On 3 1:10PM ; [facility] Joint Pain Hip Right 07/02/2018 Roque Calvillo MD Active Last Documented On 8 1:54PM ; [facility] Joint Pain Right Knee 01/09/2015 Molly kc MD Active Last Documented On 5 10:52AM ; [facility] Plan of Treatment - Patient screened for future fall risk: documentation of any fall with injury in past year - Last Documented On 08/11/2025 1:54PM ; [facility] Fall Risk Assessment: This patient has [...] with the patient. - Last Documented On 08/11/2025 1:54PM ; [facility], [facility] We discussed treatment options including a left [...] our office with any questions or concerns. - Last Documented On 08/11/2025 1:54PM ; [facility] MCNALLY, [facility] Assessments Includes: Assessments from this encounter No Assessments Recorded Medical Equipment - Implanted Devices Includes: Current Devices No Medical Equipment Recorded Medications Includes: Medications discussed during this encounter and other current Medications Discontinued / Stopped on this date on 03/08/2024 Plavix 75 MG Oral Tablet Provider: Diagnosis: Last Documented On 1:24PM By Joya Omer ; [facility], [facility] oxyCODONE-Acetaminophen 7.5-325 MG Oral Tablet Provider: BRENDON FRANCE MD Diagnosis: Last Documented On 5 1:24PM By Joya MCNALLY, [facility] DULoxetine HCl 60 MG Oral Ca psule Delayed Release Particles Provider: BRENDON FRANCE MD Diagnosis: Last Documented On 5 1:23PM By Joya MCNALLY, [facility] Ezetimibe 10 MG Oral Tablet Provider: BRENDON FRANCE MD Diagnosis: Last Documented On 1:23PM By Joya Omer ; [facility], [facility] Kezim-2-szsn Ethyl Esters 1 GM Oral Capsule Provider: BRENDON FRANCE MD Diagnosis: Last Documented On 5 1:23PM By Joya Omer ; [facility] Dexcom G7 Sensor Miscellaneous Provider: BRENDON FRANCE MD Diagnosis: Last Documented On 5 1:23PM By Joya Omer ; [facility], [facility] Clopidogrel Bisulfate 75 MG Oral Tablet P rovider: BRENDON FRANCE MD Diagnosis: Last Documented On 5 1:23PM By Joya Omer ; [facility], [facility] Gemtesa 75 MG Oral Tablet Provider: ST MYKE FRANCE MD Diagnosis: Last Documented On 1:23PM By Joya Omer ; [facility], [facility] Lantus SoloStar 100 UNIT/ML Subcutaneous Solution Pen-injector Provider: BRENDON FRANCE MD Diagnosis: Last Documented On 1:23PM By Joya Omer ; [facility], [facility] NovoLOG FlexPen 100 UNIT/ML Subcutaneous Solution Pen-injector Provider: BRENDON FRANCE MD Diagnosis: Last Documented On 5 1:23PM By Joya Omer ; [facility], [facility] RABEprazole Sodium 20 MG Ora l Tablet Delayed Release Provider: QUIRINO SENIOR MD Diagnosis: Last Documented On 1:23PM By Joya Omer ; [facility], [facility] Metoprolol Succinate ER 25 M G Oral Tablet Extended Release 24 Hour Provider: BRENDON FRANCE MD Diagnosis: Last Documented On 1:23PM By Joya Omer ; [facility], [facility] Lisinopril 40 MG Oral Tablet Provider: BRENDON FRANCE MD Diagnosis: Last Documented On 1:23PM By Joya Omer ; [facility], [facility] Fluticasone Propionate 50 MC G/ACT Nasal Suspension Provider: BRENDON FRANCE MD Diagnosis: Last Documented On 1:23PM By Joya Omer ; [facility] Current Medications (continue as prescribed) NIFEdipine ER 60 MG Oral Tab let Extended Release 24 Hour 08/10/2025 Provider: BRENDON FRANCE MD Diagnosis: Last Documented On 1:22PM By Joya Omer ; [facility] Chlorthalidone 25 MG Oral Tablet 08/10/2025 Provider : BRENDON FRANCE MD Diagnosis: Last Documented On 1:22PM By Joya Omer ; [facility] Myrbetriq 25 MG Oral Tablet Extended Release 24 Hour 08/09/2025 Provider: BRENDON FRANCE MD Diagnosis: Last Documented On 1:22PM By Joya Omer ; [facility], [facility] Insulin Aspart FlexPen 100 U NIT/ML Subcutaneous Solution Pen-injector 08/08/2025 Provider: Diagnosis: Last Documented On 1:22PM By Joya Omer ; [facility] oxyCODONE HCl 5 MG Oral Tablet 08/08/2025 Provider: BRENDON FRANCE MD Diagnosis: Last Documented On 1:22PM By Joya Omer ; [facility], [facility] RABEprazole Sodium 20 MG Ora l Tablet Delayed Release 08/08/2025 Provider: BRENDON FRANCE MD Diagnosis: Last Documented On 1:22PM By Joya Omer ; [facility], [facility] Embecta AutoShield Duo 30G X 5 MM Miscellaneous 08/08/2025 Provider: BRENDON FRANCE MD Diagnosis: Last Documented On 1:22PM By Joya Omer ; [facility], [facility] Insulin Aspart FlexPen 100 U NIT/ML Subcutaneous Solution Pen-injector 08/04/2025 Provider: Diagnosis: Last Documented On 1:22PM By Joya Omer ; [facility], [facility] Methocarbamol 500 MG Oral Tablet 08/04/2025 Provider : BRENDON FRANCE MD Diagnosis: Last Documented On 1:22PM By Joya Omer ; [facility] Clopidogrel Bisulfate 75 MG Oral Tablet 08/03/2025 Geoff chandler: BRENDON FRANCE MD Diagnosis: Last Documented On 1:22PM By Joya Omer ; [facility], [facility] DULoxetine HCl 60 MG Oral Ca psule Delayed Release Particles 08/01/2025 Provider: BRENDON FRANCE MD Diagnosis: Last Documented On 1:22PM By Joya Omer ; [facility], [facility] Metoclopramide HCl 10 MG Oral Tablet Disintegrating Provider: Diagnosis: Last Documented On 2:26PM By Isa Casarez ; [facility], [facility] Tylenol 500 mg Oral Capsule 03/03/2025 Provider: Diagnosis: Last Documented On 2:27PM By Isa Casarez ; [facility], [facility] Insulin Lispro (0.5 Unit Kimberlee l) 100 UNIT/ML Subcutaneous Solution Pen-injector 03/03/2025 Provider: Diagnosis: Last Documented On 2:28PM By Isa Casarez ; [facility], [facility] Ondansetron HCl 4 MG Oral Tablet 03/03/2025 Provider : Diagnosis: Last Documented On 2:28PM By Isa Casarez ; [facility], [facility] MiraLax 17 GM Oral Packet 03/03/2025 Provider: Diagnosis: Last Documented On 2:28PM By Isa Casarez ; [facility], [facility] NIFEdipine 10 MG Oral Capsule 03/03/2025 Provider: Diagnosis: Last Documented On 2:28PM By Isa Casarez ; [facility], [facility] Isosorbide Mononitrate ER 30 MG Oral Tablet Extended Release 24 Hour 03/03/2025 Provider: Diagnosis: Last Documented On 2:29PM By Isa Casarez ; [facility], [facility] Chlorthalidone 15 MG Oral Tablet 03/03/2025 Provider : Diagnosis: Last Documented On 2:30PM By Isa Casarez ; [facility], [facility] Adult Centrum Multi Vitamin Oral Tablet 03/03/2025 P briandader: Diagnosis: Last Documented On 2:30PM By Isa Casarez ; [facility], [facility] Carvedilol 3.125 MG Oral Tablet 03/03/2025 Provider: Diagnosis: Last Documented On 2:30PM By Isa Casarez ; [facility], [facility] Movantik 12.5 MG Oral Tablet 03/03/2025 Provider: Diagnosis: Last Documented On 2:30PM By Isa Casarez ; [facility], [facility] Bisacodyl Laxative 10 MG Rectal Suppository 03/03/2025 Provider: Diagnosis: Last Documented On 2:31PM By Isa Casarez ; [facility] Asperflex Lidocaine 4% External Cream 03/03/2025 Pro vider: Diagnosis: Last Documented On 2:31PM By Isa Casarez ; [facility], [facility] Sennosides 15 MG Oral Tablet 03/03/2025 Provider: Diagnosis: Last Documented On 2:31PM By Isa Casarez ; [facility], [facility] Dulcolax 10 MG Rectal Suppository 03/03/2025 Provide r: Diagnosis: Last Documented On 2:32PM By Isa Casarez ; [facility], [facility] Naloxone HCl 3 MG/0.1ML Nasal Liquid 03/03/2025 Prov ider: Diagnosis: Last Documented On 2:32PM By Isa Casarez ; [facility], [facility] Simethicone 125 MG Oral Capsule 03/03/2025 Provider: Diagnosis: Last Documented On 2:32PM By Isa Casarez ; [facility], [facility] GNP Loratadine 10 MG Oral Tablet 03/03/2025 Provider : Diagnosis: Last Documented On 2:26PM By Isa Casarez ; [facility], [facility] Simethicone 80 MG Oral Tablet 03/03/2025 Provider: Diagnosis: Last Documented On 2:26PM By Isa Casarez ; [facility], [facility] Mirabegron ER 25 MG Oral Tablet Extended Release 24 Ho ur 03/03/2025 Provider: Diagnosis: Last Documented On 2:25PM By Isa Casarez ; [facility], [facility] Gabapentin 300 MG Oral Capsule 03/03/2025 Provider: Diagnosis: Last Documented On 2:25PM By Isa Casarez ; [facility], [facility] Past Medications on file Pensaid Diclofenac Sodium 1.5% Xena w/w EX SOLN 02/28/2010 - 03/30/2010 Provider: Molly bradford MD Diagnosis: apply 10 drops to affected area bh Last Documented On 0 11:39AM By Ricardo 1 User ; [facility], [facility] Voltaren Gel 1% EX GEL 12/06/2009 - 01/05/2010 Provide r: Molly Quezada MD Diagnosis: apply 4 grams to affected area 4 times per day/a b Last Documented On 0 3:59PM By Silva 3 User ; [facility], [facility] Lortab 7.5-500 MG OR TABS 10/04/2009 - 10/09/2009 Prov ider: Molly Quezada MD Diagnosis: as needed for pain Last Documented On 9 8:43AM By Silva 2 User ; [facility], [facility] Arixtra 2.5 MG/0.5ML SC SOLN 06/21/2009 - 07/12/2009 P rovider: Molly Quezada MD Diagnosis: Last Documented On 9 2:34PM By Silva 1 User ; [facility], [facility] NOTE EX MISC 05/11/2009 - 05/12/2009 Provider: Ioana Quezada MD Diagnosis: faxed prior auth form back cristofer morocho at [phone]// Last Documented On 9 9:47AM By Sirena Huddleston ; [facility], [facility] Flector Patch 1.3% PTCH 05/10/2009 - 06/09/2009 Provid er: Molly Quezada MD Diagnosis: apply patch q12hrs Last Documented On 9 3:18PM By Silva 4 User ; [facility], [facility] Phenergan 25 MG OR TABS 04/21/2009 - 05/21/2009 Provid er: Molly Quezada MD Diagnosis: Last Documented On 9 11:58AM By Silva 4 User ; [facility], [facility] Medications Administered Includes: Administered Medications from this encounter No Administered Medications Recorded Results Includes: Results discussed during this encounter No Results Recorded For Specified Dates History of Present Illness Includes: History of Present Illness from this encounter HPI Adrienne Savage is a 74 year old [...] is nonambulatory and sits in a wheelchair. Social History Description Last Updated No caffeine use 04/21/2025 Last Documented On 1:27PM ; [facility], [facility] Not a current smoker. 04/21/2025 Last Documented On 5 1:27PM ; [facility] Not using alcohol 04/21/2025 Last Documented On 1:27PM ; [facility] Not using drugs 04/21/2025 Last Documented On 1:27PM ; [facility], [facility] Recent change in diet 03/03/2025 Last Documented On 1:27PM ; [facility] Tobacco non-user 11/14/2022 Last Documented On 1:27PM ; [facility] No recent change in diet 02/19/2016 Last Documented On 1:27PM ; [facility] No tobacco use 02/19/2016 Last Documented On 5 1:27PM ; [facility] Not a current smoker 02/19/2016 Last Documented On 1:27PM ; [facility], [facility] Not exercising regularly 02/19/2016 Last Documented On 1:27PM ; [facility] Smoking status : Never smoker 02/19/2016 Last Documented On 5 1:27PM ; [facility] Procedures and Surgical History Includes: Procedures from this encounter Procedures Code Diagnosis Performing Provider Service Location Service Date DRAIN/INJECT, JOINT/BURSA (LEFT) Unilateral primary osteoarthritis, left knee Saulo Brar MD [facility] 08/11/2025 Last Documented On 5 1:46PM ; [facility] Injection, betamethasone acetate 6mg per cc and betamethason J0702 Unilateral primary osteoarthritis, left knee Saulo Brar MD [facility] 08/11/2025 Last Documented On 1:46PM ; [facility] an X-ray was performed [id number] Last Documented On 1:27PM ; [facility], [facility] Surgical History Last Updated History of back surgery 11/14/2022 Last Documented On 1:27PM ; [facility], [facility] History of History of Gallbladder 2022 Last Documented On 1:27PM ; [facility], [facility] History of appendectomy 02/19/2016 Last Documented On 1:27PM ; [facility] History of total hip replacement 016 Last Documented On 1:27PM ; [facility], [facility] Medical History Includes: Medical History addressed during this encounter Description Last Updated History of arthritis 11/14/2022 Last Documented On 1:27PM ; [facility], [facility] History of asthma 11/14/2022 Last Documented On 1:27PM ; [facility] History of Heartburn / Acid Reflux 11/14 Last Documented On 1:27PM ; [facility] History of History of Blood Clots 2022 Last Documented On 1:27PM ; [facility] History of Hypertension 11/14/2022 Last Documented On 1:27PM ; [facility], [facility] History of Stroke 11/14/2022 Last Documented On 1:27PM ; [facility], [facility] bilateral shoulder repair, A chilles Repair, right knee arthroscopy ~high cholesterol, heartburn, acid reflux 02/19/2016 Last Documented On 1:27PM ; [facility], [facility] History of acute myocardial infarction 0 02/19/2016 Last Documented On 1:27PM ; [facility], [facility] History of depression 02/19/2016 Last Documented On 1:27PM ; [facility], [facility] History of diabetes mellitus 02/19/2016 Last Documented On 1:27PM ; [facility], [facility] History of diverticulitis of colon 02/18 Last Documented On 5 1:27PM ; [facility], [facility] History of gastric ulcer 02/19/2016 Last Documented On 5 1:27PM ; [facility], [facility] Intermittent hypertension 02/19/2016 Last Documented On 5 1:27PM ; [facility], [facility] Family History Includes: Family History addressed during this encounter Description Last Updated Stroke / Seizures 03/08/2024 Last Documented On 5 1:27PM ; [facility], [facility] stroke/seizures 02/19/2016 Last Documented On 5 1:27PM ; [facility], [facility] Family history of diabetes mellitus 02/03 Last Documented On 5 1:27PM ; [facility], [facility] Family history of heart disease 02/19/20 16 Last Documented On 5 1:27PM ; [facility], [facility] Family history of hypertension 6 Last Documented On 5 1:27PM ; [facility], [facility] Family history of osteoporosis 6 Last Documented On 5 1:27PM ; [facility], [facility] Family history of thromboembolic disease 02/19/2016 Last Documented On 5 1:27PM ; [facility], [facility] Review of Systems Includes: Review of [...] Active Last Documented On 08/11/2025 1:22PM ; [facility] Note: CONGESTIVE HEART FAILURE NSAIDs Allergy HURTS STOMACH 01/09/2015 Activ e Last Documented On 08/11/2025 1:22PM ; [facility] Note: HAS ULCERS Ibuprofen Allergy Nausea, Vomiting 03/03/2025 Ac tive Last Documented On 1:22PM ; [facility], [facility] Encounters Encounter Provider Location Date Check-In Time Check- Out Time Diagnosis Follow Up Angeles Byrd PA-C [facility] 1:15PM 1:29PM Insurance Includes: Active Insurance Policies Plan Name Member ID Group # Subscriber Relationship Effect joaquim Dates 1 - [employer] [facility] [id number] Adrienne Savage Self Clinical Notes Includes: Clinical Notes from this encounter * Progress note Date Encounter Last Documented by 08/11/2025 Follow Up Last documented on 08/11/2025; 1:54 PM, Angeles Tejeda; [facility], [facility] Active Problems & Conditions - Joint [...] Care Team - BRENDON FRANCE MD - [employer]
--- OUTSIDE RECORDS SUMMARY | 2025-09-06 08:11 | XMS_ITS | Encounter Summary ---
Author Organization [email or web address] ([place], [place], [place], [place], [place]) Address [address] [place] [address] Care Team Providers Care Institution Librarian Name Role Phone Unavailable Primary Care Provider Unavailabl e Encounter Details Date Type Department Care Team (Late st Contact Info) Description 04/05/2019 Transcribed Document [facility] Family Medicine [address] [place] [address] ProviderChano MD [address] [id number] Social History Tobacco Use Types Packs/Day Years Used Date Smoking Tobacco: Never Assessed Comments Unknown Sex and Gender Information Value Date Recorded Sex Assigned at Not on file Legal Sex Female 2:07 PM CDT Gender Identity Not on file Sexual Orientation Not on file documented as of this encounter Miscellaneous Notes * Cerner Conversion Note - Chano ProviderMD - 04/05/2019 3:54 PM CDT [facility] PACU Summary Primary Physician: CATRACHITO THOMPSON, MD [facility] Finalized Date/Time: 04/05/19 20:06:31 Pt. Name: LUDY ANTONIO/Sex: 1950 Female Med Rec #: [id number] Physician: CATRACHITO THOMPSON, MD ONUR Financial #: [id number] Pt. Type: O Room/Bed: Admit/Disch: 04/05/19 06:59:00 - Institution: [facility] OR PACU I Case Times Entry 1 In PACU I 04/05/19 17:12:00 Ready for PACU 04/05/19 18:15:00 Discharge Discharge from PACU 04/05/19 19:50:00 I Last Modified By: HOLDEN CUEVAS RN 04/05/19 20:05:59 [facility] PACU Acuity Entry 1 Start Time 04/05/19 18:15:00 Stop Time 04/05/19 19:50:00 Acuity Level [facility] PACU Acuity I Last Modified By: HOLDEN CUEVAS RN 04/05/19 20:06:28 Finalized By: HOLDEN CUEVAS, RN Document Signatures Signed By: HOLDEN CUEVAS RN 04/05/19 20:06 Electronically signed by Summer [facility] Conversion Household Personal Assistant Cerner at 01/23/2023 1:19 PM CDT documented in this encounter Plan of Treatment Not on file documented as of this encounter Visit Diagnoses Not on filedocumented in this encounter
--- OUTSIDE RECORDS SUMMARY | 2025-09-06 08:11 | XMS_ITS | Encounter Summary ---
Author Organization [email or web address] ([place], [place], [place], [place], [place]) Address [address] [place] [address] Care Team Providers Care Hat Block Maker Name Role Phone Unavailable Primary Care Provider Unavailabl e Encounter Details Date Type Department Care Team (Late st Contact Info) Description 12/04/2018 Transcribed Document [facility] [place] Family Medicine [facility] [place] [address] ProviderChano MD [facility] [place] [id number] Social History Tobacco Use Types Packs/Day Years Used Date Smoking Tobacco: Never Assessed Comments Unknown Sex and Gender Information Value Date Recorded Sex Assigned at Not on file Legal Sex Female 2:07 PM CDT Gender Identity Not on file Sexual Orientation Not on file documented as of this encounter Miscellaneous Notes * Cerner Conversion Note - Historical ProviderMD - 12/04/2018 11:53 AM [facility] ED Triage Entered On: 12/04/2018 12:02 EST [...] EST DCP GENERIC CODE Tracking Group : [facility] ED Shahbaz Coffman RN - 12/04/2018 [...] LIZ VILLEGAS; Reviewed Date: 12/04/2018 12:01 EST statins Estimated Onset Date: Unspecified ; Reactions: Fenofibrate, Fenofibrate ; Created By: LIZ VILLEGAS; Reaction Status: Active ; Category: Drug ; Substance: statins ; Type: Allergy ; Updated By: STARLA_LIZ ARMANDO; Reviewed Date: 12/04/2018 12:01 EST Diagnosis Control ED (As Of: 12/04/2018 12:02:23 EST) Problems(Active) Acid reflux (SNOMED CT :569979206 ) Name of Problem: Acid reflux ; Recorder: MIGEL GARCIA RN; Confirmation: Confirmed ; Classification: Patient Stated ; Code: [id number] ; Contributor System: C4M ; Last Updated: 03/17/2014 19:28 EDT ; Life Cycle Date: 06/24/2013 ; Life Cycle Status: Active ; Vocabulary: SNOMED CT Allergic asthma (SNOMED CT :3148466662 ) Name of Problem: Allergic asthma ; Recorder: MIGEL GARCIA RN; Confirmation: Confirmed ; Classification: Patient Stated ; Code: 6809812121 ; Contributor System: PowerChart ; Last Updated: 03/17/2014 19:28 EDT ; Life Cycle Date: 06/24/2013 ; Life Cycle Status: Active ; Vocabulary: SNOMED CT Anxiety depression (SNOMED CT :947405638 ) Name of Problem: Anxiety depression ; Recorder: MIGEL GARCIA RN; Confirmation: Confirmed ; Classification: Patient Stated ; Code: 749197489 ; Contributor System: PowerChart ; Last Updated: 03/22/2014 12:26 EDT ; Life Cycle Date: 06/24/2013 ; Life Cycle Status: Active ; Vocabulary: SNOMED CT Arthritis (SNOMED CT :0633450 ) Name of Problem: Arthritis ; Recorder: MIGEL GARCIA RN; Confirmation: Confirmed ; Classification: Patient Stated ; Code: 6245974 ; Contributor System: [employer] CommunicationsChart ; Last Updated: 03/17/2014 19:28 EDT ; Life Cycle Date: 06/24/2013 ; Life Cycle Status: Active ; Vocabulary: SNOMED CT BP+ - Hypertension (SNOMED CT :643344218 ) Name of Problem: BP+ - Hypertension ; Recorder: MIGEL GARCIA RN; Confirmation: Confirmed ; Classification: Patient Stated ; Code: 991367872 ; Contributor System: PowerChart ; Last Updated: 03/22/2014 10:58 EDT ; Life Cycle Date: 06/24/2013 ; Life Cycle Status: Active ; Vocabulary: SNOMED CT Completely occulded L carotid (SNOMED CT :5748663746 ) Name of Problem: Completely occulded L carotid ; Recorder: STEPHANIE ARREGUIN RN; Confirmation: Confirmed ; Classification: Medical ; Code: 6367144561 ; Contributor System: PowerChart ; Last Updated: 04/23/2016 17:54 EDT ; Life Cycle Date: 04/25/2015 ; Life Cycle Status: Active ; Vocabulary: SNOMED CT Congestive heart failure - due to Avandia resolved (SNOMED CT :99846107 ) Name of Problem: Congestive heart failure - due to Avandia resolved ; Recorder: MIGEL GARCIA RN; Confirmation: Confirmed ; Classification: Patient Stated ; Code: 61209466 ; Contributor System: PowerChart ; Last Updated: 04/23/2016 17:53 EDT ; Life Cycle Date: 06/24/2013 ; Life Cycle Status: Active ; Vocabulary: SNOMED CT ; Comments: 06/24/2013 10:32 - MIGEL GARCIA RN per pt and DM - Diabetes mellitus (SNOMED CT :655692087 ) Name of Problem: DM - Diabetes mellitus ; Recorder: MIGEL GARCIA RN; Confirmation: Confirmed ; Classification: Patient Stated ; Code: 453061785 ; Contributor System: PowerChart ; Last Updated: 03/22/2014 10:54 EDT ; Life Cycle Date: 06/24/2013 ; Life Cycle Status: Active ; Vocabulary: SNOMED CT Dyslipidemia (SNOMED CT :9973182104 ) Name of Problem: Dyslipidemia ; Recorder: MIGEL GARCIA RN; Confirmation: Confirmed ; Classification: Patient Stated ; Code: 1289339470 ; Contributor System: [employer]Chart ; Last Updated: 03/17/2014 19:28 EDT ; Life Cycle Date: 06/24/2013 ; Life Cycle Status: Active ; Vocabulary: SNOMED CT H/O ischemic left MCA stroke (SNOMED CT :6931545755 ) Name of Problem: H/O ischemic left MCA stroke ; Onset Date: 09/05/2012 ; Recorder: SYBIL MCGILL MD-EMR; Confirmation: Confirmed ; Classification: Medical ; Code: 7202869955 ; Contributor System: C4M ; Last Updated: 04/23/2016 17:54 EDT ; Life Cycle Date: 04/23/2016 ; Life Cycle Status: Active ; Responsible Provider: SYBIL MCGILL MD-EMR; Vocabulary: SNOMED CT Hiatal hernia (SNOMED CT :446818769 ) Name of Problem: Hiatal hernia ; Recorder: SYBIL MCGILL MD-EMR; Confirmation: Complaint of ; Classification: Medical ; Code: 828837054 ; Contributor System: C4M ; Last Updated: 12/03/2015 16:45 EST ; Life Cycle Date: 12/03/2015 ; Life Cycle Status: Active ; Vocabulary: SNOMED CT Obesity (SNOMED CT :2161136284 ) Name of Problem: Obesity ; Recorder: SYBIL MCGILL MD-EMR; Confirmation: Confirmed ; Classification: Medical ; Code: 2180271585 ; Contributor System: C4M ; Last Updated: 04/23/2016 17:53 EDT ; Life Cycle Date: 04/23/2016 ; Life Cycle Status: Active ; Responsible Provider: SYBIL MCGILL MD-EMR; Vocabulary: SNOMED CT Diagnoses(Active) Leg pain-swelling Date: 12/04/2018 ; Diagnosis Type: Reason For Visit ; Confirmation: Complaint of ; Clinical Dx: Leg pain-swelling ; Classification: Medical ; Clinical Service: Emergency medicine ; Code: PNED ; Probability: 0 ; Diagnosis Code: [id number] ED Height and Weight Height Source : Stated Height Entry Format : Watson Height, Feet : 5 ft(Converted to: 152 cm, 60 Inch) Height, Inches : 8 Inch(Converted to: 0 ft 8 Inch, 20.32 cm) Clinical Height : 172.72 cm Weight Source, ED : Critical estimated dosing weight Weight Entry Format : Watson Weight, Pounds : 245 lb Clinical Dosing Weight : 111.36 kg Body Surface Area (BSA) : 2.23 m2 Body Mass Index : 37.3 kg/m2 (HI) Meredith Body Weight (IBW) : 63.45 kg Shahbaz Coffman RN - 12/04/2018 11:57 EST documented in this encounter Plan of Treatment Not on file documented as of this encounter Visit Diagnoses Not on filedocumented in this encounter
--- OUTSIDE RECORDS SUMMARY | 2025-09-06 08:11 | XMS_ITS | Encounter Summary ---
Author Organization [employer] ([place], [place], [place], [place], [place]) Address [address] [place] [address] Care Team Providers Care Commercial Lending Relationship Manager Name Role Phone Unavailable Primary Care Provider Unavailabl e Encounter Details Date Type Department Care Team (Late st Contact Info) Description 07/13/2019 Transcribed Document [facility] [place] Family Medicine [address] [place] [address] ProviderChano MD [address] [place], [place] [id number] Social History Tobacco Use Types Packs/Day Years [...] ANNA MALONE, PT - 07/13/2019 12:00 EDT Electronically signed by Julian Wheeler Conversion Furnace Charging Machine Operator Cerner at 01/23/2023 1:26 PM CDT documented in this encounter Plan of Treatment Not on file documented as of this encounter Visit Diagnoses Not on filedocumented in this encounter
--- OUTSIDE RECORDS SUMMARY | 2025-09-06 08:11 | XMS_ITS | Encounter Summary ---
Author Organization [employer] ([place], [place], [place], [place], [place]) Address [address] [place] [address] Care Team Providers Care Junior Graphic Designer Name Role Phone Unavailable Primary Care Provider Unavailabl e Encounter Details Date Type Department Care Team (Late st Contact Info) Description 03/25/2021 Transcribed Document [facility] [place] [address] [place] [address] ProviderChano MD [address] [place] [id number] Social History Tobacco Use Types Packs/Day Years Used Date Smoking Tobacco: Never Assessed Comments Unknown Sex and Gender Information Value Date Recorded Sex Assigned at Not on file Legal Sex Female 2:07 PM CDT Gender Identity Not on file Sexual Orientation Not on file documented as of this encounter Miscellaneous Notes * Cerner Conversion Note - Historical ProviderMD - 03/25/2021 10:24 PM CDT Gem Suicide Severity Rating Scale (C-SSRS) Entered On: 03/25/2021 23:06 EDT Performed On: 03/25/2021 23:05 EDT by MIGEL ANDREW Rn Gem Suicide Severity Rating Scale (C-SSRS) CSSRS Past [...]
--- OUTSIDE RECORDS SUMMARY | 2025-09-06 08:11 | XMS_ITS | Encounter Summary ---
Author Organization [employer] ([place], [place], [place], [place], [place]) Address [address] [place] [address] Care Team Providers Care Operations And Maintenance Specialist Name Role Phone Unavailable Primary Care Provider Unavailabl e Encounter Details Date Type Department Care Team (Late st Contact Info) Description 02/07/[address] [facility] [place] Family Medicine [address] [place] [address] ProviderChano MD [address] [place] [address] Social History Tobacco Use Types [...] Gatica MD - 02/07/2019 5:45 AM CDT [facility] [place] [address] LUDY ANTONIO :1950 Visit Time:02/07/2019 Your Visit Summary Your Care Team Admitting Physician - RASHEL GRAVES MD Attending Physician - RASHEL GRAVES MD Primary Care Physician - QUIRINO SENIOR (REF)MD[facility] Referring Physician - RASHEL GRAVES MD Your Diagnosis Acute right hip pain Hip pain-swelling, Hip pain-swelling Patient Portal Reminder: Be sure to sign up for the [employer] patient portal, which gives you 24/7 access to your medical information ??? including these discharge instructions ??? using your computer, smartphone, or tablet. Just go to [employer] to get started. Questions? Call . You [...] When Within 2 to 3 days Where: [address] [place], [place] [id number] [facility] (1) Allergies Avandia (CHF) NSAIDs fenofibrate metFORMIN [...] (Flonase 0.05 mg/ inh nasal spray) 2 [place](s) Nasal Every Day as needed for Allergies [...] 09/22/2006 Document Revised: 02/21/2017 Document Reviewed: 07/04/2015 [employer] Patient Education ?? 2017 [employer]. Hip Pain Your hip is the joint [...] 03/12/2011 Document Revised: 02/27/2017 Document Reviewed: 05/19/2014 [employer] Interactive Patient Education ?? 2017 [employer]vier Inc. [...] Assistance with quitting is available by contacting 1-629-DKBX-NOW. This is a free resource providing counseling, support, and referral. Or you may contact your personal physician. [employer] Suicide Prevention Lifeline: The National Suicide Prevention [...] was given the opportunity to ask questions. Patient/Aircraft Avionics Technician Name: Patient/Aircraft Avionics Technician Signature: Relationship to Patient: Clinician/Hospital Aircraft Avionics Technician Signature: Please Provide a Telephone Number Where You Can Be Reached: Is it Permissible To Leave a Message? Date: documented in this encounter Plan of Treatment Not on file documented as of this encounter Visit Diagnoses Not on filedocumented in this encounter
--- OUTSIDE RECORDS SUMMARY | 2025-09-06 08:11 | XMS_ITS | Encounter Summary ---
Author Organization [employer] ([place], [place], [place], [place], [place]) Address [address] [place] [address] Care Team Providers Care Powder Shoveler Name Role Phone Unavailable Primary Care Provider Unavailabl e Encounter Details Date Type Department Care Team (Late st Contact Info) Description 04/05/2019 Transcribed Document [facility] [place] [address] [place] [address] ProviderChano MD [address] [place], [place] [phone] Social History Tobacco Use Types Packs/Day Years Used Date Smoking Tobacco: Never Assessed Comments Unknown Sex and Gender Information Value Date Recorded Sex Assigned at Not on file Legal Sex Female 2:07 PM CDT Gender Identity Not on file Sexual Orientation Not on file documented as of this encounter Miscellaneous Notes * Cerner Conversion Note - Chano ProviderMD - 04/05/2019 3:54 PM CDT [facility] Main OR Preop Summary Primary Physician: CATRACHITO THOMPSON, MD ONUR Finalized Date/Time: 04/05/19 15:57:05 Pt. Name: LUDY ANTONIO D.O.B./Sex: 1950 Female Med Rec #: [id number] Physician: CATRACHITO THOMPSON, MD ONUR Financial #: [id number] Pt. Type: O Room/Bed: Admit/Disch: 04/05/19 06:59:00 - Institution: [facility] PreOp Case Times Entry 1 In Preop 04/05/19 11:45:00 Ready for Holding n/a Room Patient Ready for 04/05/19 12:09:00 Surgery Patient Out of Preop 04/05/19 15:24:00 Patient Out of n/a Holding Room Last Modified By: JOSE TORRES RN 04/05/19 15:57:04 [facility] PreOp Case Times Audit 04/05/19 15:57:04 Repair Armature Winder: ARMANI Modifier: ARMANI <+> 1 Patient Out of Preop 04/05/19 12:10:17 Repair Armature Winder: ARMANI Modifier: ARMANI 1 <*> Patient Ready for Surgery 04/05/19 12:10:00 Finalized By: JOSE TORRES, RN Document Signatures Signed By: JOSE TORRES RN 04/05/19 15:57 Electronically signed by [facility] Conversion Guest Laundry Attendant Cerner at 01/23/2023 1:13 PM CDT documented in this encounter Plan of Treatment Not on file documented as of this encounter Visit Diagnoses Not on filedocumented in this encounter
--- OUTSIDE RECORDS SUMMARY | 2025-09-06 08:11 | XMS_ITS | Encounter Summary ---
Author Organization [employer] ([place], [place], [place], [place], [place]) Address [address] [place] [address] Care Team Providers Care Braille Typist Name Role Phone Unavailable Primary Care Provider Unavailabl e Encounter Details Date Type Department Care Team (Late st Contact Info) Description 07/13/2019 Transcribed Document [facility] [place] Family Medicine [facility] [place] [address] ProviderChano MD [address] [place] [id number] Social History Tobacco Use Types Packs/Day Years [...] guardianship. 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 Past Psychiatric History [...] Bedtime Flonase 0.05 mg/inh nasal spray, 2 [place], Nasal, Daily Lantus, 60 Units, SubCutaneous, At [...] 2 Tab, Oral, Q6H, PRN Vitamin D3, 81642 Int Units, Oral, See Comment Medications Confirmed Yes, reviewed (_) / Unable to confirm (_) Allergies Avandia (CHF) NSAIDs fenofibrate metFORMIN statins (Fenofibrate, Fenofibrate) Lab Results JUL 11 02:33 140 104 14 / H 248 4.2 31 0.90 \ JUL 12 02:51 \ 11.5 / 8.4 263 / 35.7 \ Electronically signed by Julian Wheeler Conversion Water Conservation Specialist Januaryner at 01/23/2023 1:13 PM CDT documented in this encounter Plan of Treatment Not on file documented as of this encounter Visit Diagnoses Not on filedocumented in this encounter
--- OUTSIDE RECORDS SUMMARY | 2025-09-06 08:11 | XMS_ITS | Encounter Summary ---
Author Organization [employer] ([place], [place], [place], [place], [place]) Address [address] [place] [address] Care Team Providers Care Hand Inserter Operator Name Role Phone Unavailable Primary Care Provider Unavailabl e Encounter Details Date Type Department Care Team (Late st Contact Info) Description 04/05/2019 Transcribed Document [facility] [place] Family Medicine [address] [place] [address] ProviderChano MD [address] [place], [place] [phone] Social History Tobacco Use Types Packs/Day Years [...]
--- OUTSIDE RECORDS SUMMARY | 2025-09-06 08:11 | XMS_ITS | Encounter Summary ---
Author Organization [employer] ([place], [place], [place], [place], [place]) Address [address] [place] [address] Care Team Providers Care Distribution Field Engineer Name Role Phone Unavailable Primary Care Provider Unavailabl e Encounter Details Date Type Department Care Team (Late st Contact Info) Description 04/05/[address] [facility] [place] Family Medicine [address] [place] [address] ProviderChano MD [address] [place] [place], [place] [phone] Social History Tobacco Use Types Packs/Day Years [...]
--- OUTSIDE RECORDS SUMMARY | 2025-09-06 08:11 | XMS_ITS | Encounter Summary ---
Author Organization [employer] ([place], [place], [place], [place], [place]) Address [address] [place] [address] Care Team Providers Care Bolt Sorter Name Role Phone Unavailable Primary Care Provider Unavailabl e Encounter Details Date Type Department Care Team (Late st Contact Info) Description 07/13/2019 Transcribed Document [facility] [place] Family Medicine [address] [place] [address] ProviderChano MD [address], [place] [phone] Social History Tobacco Use Types Packs/Day Years [...]
--- OUTSIDE RECORDS SUMMARY | 2025-09-06 08:11 | XMS_ITS | Encounter Summary ---
Author Organization [employer] ([place], [place], [place], [place], [place]) Address [address] [place] [address] Care Team Providers Care Central Processing Technician Name Role Phone Unavailable Primary Care Provider Unavailabl e Encounter Details Date Type Department Care Team (Late st Contact Info) Description 03/25/2021 Transcribed Document [facility] [place] Family Medicine [address] [place] [address] ProviderChano MD [address] [place], [place] [phone] Social History Tobacco Use Types Packs/Day Years [...]
--- OUTSIDE RECORDS SUMMARY | 2025-09-06 08:11 | XMS_ITS | Encounter Summary ---
Author Organization [employer] ([place], [place], [place], [place], [place]) Address [address] [place] [address] Care Team Providers Care Vocational Nurse Name Role Phone Unavailable Primary Care Provider Unavailabl e Encounter Details Date Type Department Care Team (Late st Contact Info) Description 02/07/2019 Transcribed Document [facility] [place] [address] ProviderChano MD [facility] [place] [phone] Social History Tobacco Use Types Packs/Day Years [...] On: 02/07/2019 5:10 EDT by Leanne Begum middleware architect Quick Look Assessment Level of Consciousness : Alert, Awake Affect/Behavior : Appropriate, Calm, Cooperative Orientation : Oriented x 4 Skin Color : Other: normal Skin Temperature : Warm Skin Description : Dry Leanne Begum Rn - 02/07/2019 5:10 EDT ED General-Functional Assess Information Obtained From : Patient Preferred Communication Mode : Verbal Communication Barrier : None Primary Language : Haitian Any Spiritual/Cultural Needs or Requests : No [...] TRINIDAD, ED Nurse) Employment/School: Retired, Previous employment/school: [employer]. (Last Updated: 07/17/2014 00:15:13 EDT by KATIE TRINIDAD, ED Nurse) Cardiovascular ASMT, ED Cardiovascular Assessment WDL : Leanne Jewell Rn - 02/07/2019 5:10 EDT Respiratory Respiratory Assessment WDL : [facility] Leanne Begum Rn - 02/07/2019 5:10 EDT Musculoskeletal Musculoskeletal Assessment WDL : [facility] with exceptions Musculoskeletal Assessment Comment : right hip apin 10/10, no obvious injury, right lower leg with positive pulse, motor and sensory Leanne Begum Rn - 02/07/2019 5:10 EDT Neurologic ASMT, ED Neurologic Assessment WDL : [facility] Leanne Begum Rn - 02/07/2019 5:10 EDT [...]
--- OUTSIDE RECORDS SUMMARY | 2025-09-06 08:11 | XMS_ITS | Encounter Summary ---
Author Organization [employer] ([place], [place], [place], [place], [place]) Address [address] [place] [address] Care Team Providers Care Controls Operator Molded Goods Name Role Phone Unavailable Primary Care Provider Unavailabl e Encounter Details Date Type Department Care Team (Late st Contact Info) Description 04/05/2019 Transcribed Document [facility] [place] Family Medicine [address] [place] [address] ProviderChano MD [address] [place] [id number] Social History Tobacco Use Types Packs/Day Years Used Date Smoking Tobacco: Never Assessed Comments Unknown Sex and Gender Information Value Date Recorded Sex Assigned at Not on file Legal Sex Female 2:07 PM CDT Gender Identity Not on file Sexual Orientation Not on file documented as of this encounter Miscellaneous Notes * Cerner Conversion Note - Chano ProviderMD - 04/05/2019 3:54 PM CDT [facility] Main OR IntraOp Summary Primary Physician: CATRACHITO THOMPSON, MD ONUR Finalized Date/Time: 04/06/19 13:07:54 Pt. Name: JANETTE ADRIENNE Ileana CalderonB./Sex: 1950 Female Med Rec #: [id number] Physician: ONUR WINSTON MD, MD Financial #: [id number] Pt. Type: O Room/Bed: 649/1 Admit/Disch: 04/05/19 06:59:00 - 04/06/19 09:48:00 Institution: [facility] IntraOp Case Attendance Entry 1 Entry 2 Entry 3 Case Attendee CTARACHITO THOMPSON, MD ROSALVA MOHR DALE ALAN, MD SIMPSON, KRISTEN, CRNA Role Performed Surgeon/Proceduralist, Anesthesiologist of GEOTHERMAL OPERATING ENGINEER/Nurse Biometrics Technician First Record Time In 04/05/19 15:28:00 04/05/19 [...] Campbell BRUMMETT, JAMES A. Poff, Janie, EDISON Hearing Screener Role Performed Restaurant Crew Person Scrub, First Book Critic, First Time In 04/05/19 15:28:00 04/05/19 15:28:00 04/05/19 15:28:00 Time Out 04/05/19 17:10:00 04/05/19 17:10:00 04/05/19 17:10:00 Procedure Lumbar Discectomy(Right) Lumbar Discectomy(Right) Lumbar Discectomy(Right) Other Attendee Superficial Wound Closed By: Last Modified By: Sheila Walters RN Poff, Janie, RN Poff, Janie, RN 04/05/19 17:11:06 04/05/19 17:11:06 04/05/19 17:11:06 Entry 7 Case Attendee FRANCI CRUZ PA-INT Role Performed Physician integration assistant Time In 04/05/19 15:28:00 Time Out 04/05/19 17:10:00 Procedure Lumbar Discectomy(Right) Other Attendee Superficial Wound Closed By: Last Modified By: Sheila Walters RN 04/05/19 17:11:06 [facility] IntraOp Case Attendance Audit 04/05/19 17:11:06 Agent Spa Desk: CARSON Modifier: CARSON 1 <+> Time Out [...] Time Out 7 <*> Procedure Lumbar Discectomy(Right) [facility] IntraOp Case Times Entry 1 Patient In Room Time 04/05/19 15:28:00 Out Room Time 04/05/19 17:10:00 Anesthesia Start Time 04/05/19 15:28:00 Stop Time 04/05/19 17:10:00 Surgery / Procedure Times Start Time 04/05/19 15:54:00 Stop Time 04/05/19 17:00:00 Last Modified By: Sheila Walters RN 04/05/19 17:10:15 [facility] IntraOp Case Times Audit 04/05/19 17:10:15 Agent Spa Desk: CARSON Modifier: CARSON <+> 1 Out Room Time <+> 1 Stop Time <+> 1 Stop Time [facility] IntraOp Cautery Entry 1 ESU Identification Cautery Type Monopolar ESU ID Number [id number] ID Type Hospital Number Cautery Settings Cut [...] Modified By: Sheila Walters RN 04/05/19 16:10:53 [facility] IntraOp Communication Entry 1 Communication To Family/Significant other Comment START Communication By Sheila Walters RN Date and Time 04/05/19 15:54:00 Last Modified By: Sheila Walters RN 04/05/19 16:09:43 [facility] IntraOp Counts Verification Entry 1 Procedure Lumbar Discectomy(Right) Count Info Count Type Sponge, Sharps, Miscellaneous Counts Verification Baseline/pre-procedure Sequence Count Results Not Applicable Counts Performed By Count Performed By CAMPBELL RIVERA (Scrub) Count Performed By Sheila Walters RN (RN) Last Modified By: Sheila Walters RN 04/05/19 16:09:16 [facility] IntraOp Counts Final Entry 1 Procedure Lumbar Discectomy(Right) Final Count Info Count Type Sponge, Sharps, Miscellaneous Counts Verification Skin Closure/end of Sequence procedure Count Results Correct, surgeon notified Counts Performed By Count Performed By CAMPBELL RIVERA (Scrub) Count Performed By Sheila Walters RN (RN) Last Modified By: Sheila Walters RN 04/05/19 17:10:27 [facility] IntraOp Counts Final Audit 04/05/19 17:10:27 Agent Spa Desk: CARSON Modifier: POJAZMYNE 1 <*> Procedure Lumbar Discectomy(Right) 1 <+> Count Performed By (Scrub) 1 <+> Count Performed By (RN) [facility] IntraOp Departure from OR Entry 1 Integumentary Assessment Integumentary WDL with patient Assessment WDL specific variances Patient's Normal SURGICAL INCISION = BACK Integumentary Variance(s) Transfer/Handoff Transfer to PACU Phase I Handoff Method Phone call Handoff Reported to HOLDEN CUEVAS RN Post-op Transport Stretcher/Prabhjot Via Patient Transport GLENDA WILLETT CRNA, Accompanied by FRANCI CRUZ PA-INT Last Modified By: Sheila Walters RN 04/05/19 17:11:00 [facility] IntraOp Departure from OR Audit 04/05/19 17:11:00 Agent Spa Desk: CARSON Modifier: POJAZMYNE <+> 1 Patient Transport Accompanied by <+> 1 Handoff Reported to [facility] IntraOp Dressing and Packing Entry 1 Type Dressing Location BACK Wound Dressing Item Other Applied By FRANCI CRUZ PA-INT Last Modified By: Sheila Walters RN 04/05/19 16:12:21 [facility] IntraOp Fire Risk Assessment Entry [...] Modified By: Sheila Walters RN 04/05/19 16:05:59 [facility] IntraOp General Case Environmental Technical Officer 1 Case Information OR OR 09 [facility] Case Level 1 Room Verified Yes Wound Class I - Clean Specialty SN Neurosurgery Anesthesia Type General ASA Class 3 Diagnosis Preop Diagnosis LUMBOSACRAL RADICULOPATHY, LUMBAR DISC PROLAPSE WITH RADICULOPATHY Postop Same As Preop Yes Postop Diagnosis LUMBOSACRAL RADICULOPATHY, LUMBAR DISC PROLAPSE WITH RADICULOPATHY Last Modified By: Sheila Walters RN 04/05/19 16:18:02 [facility] IntraOp General Case Data Audit 04/05/19 16:18:02 Agent Spa Desk: CARSON Modifier: CARSON <+> 1 Room Verified 04/05/19 16:16:00 Agent Spa Desk: CARSON Modifier: CARSON <+> 1 ASA Class <+> 1 Anesthesia Type <+> 1 Postop Same As Preop <+> 1 Preop Diagnosis <+> 1 Postop Diagnosis [facility] IntraOp Intraoperative Assessment Entry 1 [...] Modified By: Sheila Walters RN 04/05/19 16:08:55 [facility] IntraOp Intraoperative Equipment Entry 1 Type Monitoring Equipment Equipment Oksana Suction System ID Number [id number] Setting 200 Intraop Monitoring Electrocardiogram Three lead placement (ECG) Electrode Placement Blood Pressure Non-Invasive BP Device Source Antiembolic Devices Antiembolic Devices Sequential compression device, knee high Antiembolic Device Bilateral Location Antiembolic Device [id number] ID Number Scopes Photo/Video Documentation Photo No Video No Intraop Equipment SEQUENTIAL COMPRESSION Comment DEVICES ON AND IN OPERATION PRIOR TO INDUCTION OF ANESTHESIA. Last Modified By: Sheila Walters RN 04/05/19 16:19:26 [facility] IntraOp Medication Admin Entry 1 Entry 2 Entry 3 Medication/Irrigant lidocaine 1% w/ Bacitracin 50,000 units Kenalog 40mg 1ml epinephrine 1:100,000 powder vial injection - [id number] 30ml vial - [id number] Combo Med List Time Administered 04/05/19 15:54:00 04/05/19 15:54:00 04/05/19 16:24:00 Route of LOCAL IN 1000 ML 0F IRRIGATION TOPICAL Administration Dose Dose 10 [id number] 40 Unit of Measure ml units mg Volume Administered By CATRACHITO THOMPSON, MD CATRACHITO MOHR MD, GABRIEL, MD PHILLIPS MD, MD ONUR Procedure Irrigation Irrigant Volume In Irrigant Volume Out Last Modified By: Sheila Walters RN Poff, Janie, RN Poff, Janie, RN 04/05/19 17:12:29 04/05/19 17:12:29 04/05/19 17:12:29 Entry 4 Medication/Irrigant thrombin 5000units topical powder - [id number] Combo Med List Time Administered 04/05/19 15:54:00 Route of ON GELFOAM Administration Dose Dose 5000 Unit of Measure units Volume Administered By CATRACHITO THOMPSON, MD ONUR Procedure Irrigation Irrigant Volume In Irrigant Volume Out Last Modified By: Sheila Walters RN 04/05/19 16:25:13 [facility] IntraOp Medication Admin Audit 04/05/19 17:12:29 Agent Spa Desk: CARSON Modifier: SLAVAULICES 1 <*> Medication/Irrigant lidocaine 1% w/ epinephrine 1:100,000 30ml vial - [id number] 1 <+> Dose 2 <*> Medication/Irrigant Bacitracin 50,000 units powder vial 3 <*> Medication/Irrigant Kenalog 40mg 1ml injection - [id number] 3 <+> Route of Administration [facility] IntraOp Patient Positioning Entry 1 [...] Leonid pillow in place Positioned By Sheila Walters RN, CATRACHITO THOMPSON, MD ONUR, FRANCI CRUZ, HEMAL, GLENDA WILLETT CRNA Position Verified Positioning Yes Verified by Anesthesia Positioning Yes Verified by Surgeon Last Modified By: Sheila Walters RN 04/05/19 16:04:18 [facility] IntraOp Sign In Entry 1 [...] Modified By: Sheila Walters RN 04/05/19 15:56:54 [facility] IntraOp Sign Out Entry 1 [...] Modified By: Sheila Walters RN 04/05/19 17:10:43 [facility] IntraOp Sign Out Audit 04/05/19 17:10:43 Agent Spa Desk: CARSON Modifier: CARSON <+> 1 RN Sign Out Signature Date/Time [facility] IntraOp Skin Prep Entry 1 Procedure Lumbar Discectomy(Right) Prescribed Yes Pre-Surgical Prep Completed Prep Area BACK Intraop Prep Integumentary WDL Assessment WDL Prep Agents Alcohol, Chlorhexadine gluconate, DuraPrep Prep by CATRACHITO THOMPSON, MD ONUR Hair Removal Methods No hair removal performed Last Modified By: Sheila Walters RN 04/05/19 16:18:22 [facility] IntraOp Surgical Procedures Entry 1 Procedure Lumbar Discectomy Modifiers Right Additional RIGHT L3-4 DISCECTOMY Procedure Description Primary Procedure Yes Primary Surgeon CATRACHITO THOMPSON, MD ONUR Start 04/05/19 15:54:00 Stop 04/05/19 17:00:00 Anesthesia Type General Specialty SN Neurosurgery Wound Class I - Clean Last Modified By: Sheila Walters RN 04/05/19 17:10:32 [facility] IntraOp Surgical Procedures Audit 04/05/19 17:10:32 Agent Spa Desk: CARSON Modifier: CARSON <+> 1 Stop [facility] IntraOp Temp Regulation Devices Entry 1 Temp Regulation Temperature Forced Air Warming Regulation Device device Temperature 75834 Regulation Device Serial/Unit Number Temperature Upper body Regulation Site Temperature Device 43 Setting Temperature GLENDA WILLETT CRNA Regulation Device Applied by Temperature TEMP REGULATED BY Regulation Comment ANESTHESIA Last Modified By: Sheila Walters RN 04/05/19 16:19:54 [facility] IntraOP Time Out Entry 1 [...] 04/05/19 19:03 CARSON Correct Documentation 04/06/19 13:07 LESLI Correct Billing documented in this encounter Plan of Treatment Not on file documented as of this encounter Visit Diagnoses Not on filedocumented in this encounter
--- OUTSIDE RECORDS SUMMARY | 2025-09-06 08:11 | XMS_ITS | Encounter Summary ---
Author Organization [employer] ([place], [place], [place], [place], [place]) Address [address] [place] [address] Care Team Providers Care Mounter Flutes And Piccolos Name Role Phone Unavailable Primary Care Provider Unavailabl e Encounter Details Date Type Department Care Team (Late st Contact Info) Description 02/07/2019 Transcribed Document [facility] [place] [facility] [place] [address] ProviderChano MD [facility] [place] [phone] Social History Tobacco Use Types Packs/Day Years [...] On: 02/07/2019 6:05 EDT by Leanne Begum Drywall Stripper Process Patient Disposition : Discharge Personal Belongings [...]
--- OUTSIDE RECORDS SUMMARY | 2025-09-06 08:11 | XMS_ITS | Encounter Summary ---
Author Organization [employer] ([place], [place], [place], [place], [place]) Address [address] [place] [address] Care Team Providers Care Endoscopy Nurse Name Role Phone Unavailable Primary Care Provider Unavailabl e Encounter Details Date Type Department Care Team (Late st Contact Info) Description 01/04/2021 Transcribed Document [facility] [place] Family Medicine [facility] [place] [address] ProviderChano MD [address] [place] [address] [phone] Social History Tobacco Use Types Packs/Day Years Used Date Smoking Tobacco: Never Assessed Comments Unknown Sex and Gender Information Value Date Recorded Sex Assigned at Not on file Legal Sex Female 2:07 PM CDT Gender Identity Not on file Sexual Orientation Not on file documented as of this encounter Miscellaneous Notes * [employer]ner Conversion Note - Historical ProviderMD - 01/04/2021 1:01 PM CDT DATE [...] ischemia. Normal left ventricular systolic function post-stress. /[id number] Dario Palomares MD SSL/AQ / SSL / MODL /[id number] CC: Dr. Jordan Lopez Electronically signed by [facility], [facility] Conversion Environmental Web Crawler Cerner at 01/23/2023 1:14 PM CDT documented in this encounter Plan of Treatment Not on file documented as of this encounter Visit Diagnoses Not on filedocumented in this encounter
--- OUTSIDE RECORDS SUMMARY | 2025-09-06 08:11 | XMS_ITS | Encounter Summary ---
Author Organization [employer] ([place], [place], [place], [place], [place]) Address [address] [place] [address] Care Team Providers Care Fur Repair Inspector Name Role Phone Unavailable Primary Care Provider Unavailabl e Encounter Details Date Type Department Care Team (Late st Contact Info) Description 07/13/2019 Transcribed Document [facility] [place] [address] [place] [address] ProviderChano MD [address] [phone] Social History Tobacco Use Types Packs/Day Years Used Date Smoking Tobacco: Never Assessed Comments Unknown Sex and Gender Information Value Date Recorded Sex Assigned at Not on file Legal Sex Female 2:07 PM CDT Gender Identity Not on file Sexual Orientation Not on file documented as of this encounter Miscellaneous Notes * Cerner Conversion Note - Chano Gatica MD - 07/13/2019 7:57 AM CDT UM Authorization Entered On: 07/13/2019 7:59 EDT Performed On: 07/13/2019 7:57 EDT by ROSEY SANTILLAN, Trimmer And Borer Machine Operator Primary Insurance Authorization Authorization and Policy Numbers : Insurance 1 Health Plan: [employer] Policy Number: [id number] Authorization Number: [id number] Insurance Primary Name : Abzena [id number] Authorization Status-Primary : Notification only Authorization Fax Number-Primary : [phone] Auth/Referral Phone Number-Primary : [phone] x [phone] Auth/Referral Contact Name-Primary : Saulo Latonya Reference Number-Primary : Authorization Number-Primary : [id number] Authorized Service Begin Date-Primary : 07/08/2019 EDT Observation Authorization Nbr-Primary : [id number] Authorization Comments-Primary : inpt approved per email from Saulo Hanks auth# [id number] Historical Authorization Comments-Primary : Comment 1: pending ref# per [facility]. clinical faxed per [employer] for ip auth (Mary Jackson, Rn-Utilization Review 07/11/2019 09:56) Comment 2: per IPAS patient meets ip criteria. obtained ip order submitted on [facility] for ip auth (Mary Jackson, Rn-Utilization Review 07/11/2019 09:43) Comment 3: submitted for and obtained opo approval from [facility] opo auth# [id number] (ROSEY SANTILLAN, Trimmer And Borer Machine Operator 07/09/2019 12:59) ROSEY SANTILLAN, Trimmer And Borer Machine Operator - 07/13/2019 7:57 EDT documented in this encounter Plan of Treatment Not on file documented as of this encounter Visit Diagnoses Not on filedocumented in this encounter
--- OUTSIDE RECORDS SUMMARY | 2025-09-06 08:11 | XMS_ITS | Encounter Summary ---
Author Organization [employer] ([place], [place], [place], [place], [place]) Address [address] [place] [address] Care Team Providers Care Protective Signal Installer Name Role Phone Unavailable Primary Care Provider Unavailabl e Encounter Details Date Type Department Care Team (Late st Contact Info) Description 07/13/2019 Transcribed Document [facility] [place] [facility] [place] [address] ProviderChano MD [address] [place], [place] [phone] Social History Tobacco Use Types Packs/Day Years [...] On: 07/13/2019 17:38 EDT by HORACIO ACHARYA RN-Plant Safety LeaderShowroom Manager Progress Note Discharge Arrangements : Patient Post-Acute Information Patient Name: LUDY ANTONIO Gender: Female : [birth year] Age: 68 Years No Post-Acute Placement(s) Listed No Post-Acute Service(s) Listed No Cur[place] Referral(s) Listed Barriers to Discharge Identified : Clinical Condition of Patient Barriers to Discharge Unresolved : Clinical Condition of Patient Is the Patient Meeting Medical Necessity : Yes HORACIO ACHARYA RN-Plant Safety Leader - 07/13/2019 17:38 EDT Narrative Progress Note [...] office to assess for psychosis. SANJIV VOGT, RN-Plant Safety Leader - 07/11/19 16:14:26 HORACIO ACHARYA RN-Plant Safety Leader - 07/13/2019 17:38 EDT documented in this encounter Plan of Treatment Not on file documented as of this encounter Visit Diagnoses Not on filedocumented in this encounter
--- OUTSIDE RECORDS SUMMARY | 2025-09-06 08:11 | XMS_ITS | Encounter Summary ---
Author Organization [employer] ([place], [place], [place], [place], [place]) Address [address] [place] [address] Care Team Providers Care Reel Slitter Name Role Phone Unavailable Primary Care Provider Unavailabl e Encounter Details Date Type Department Care Team (Late st Contact Info) Description 12/04/2018 Transcribed Document [facility] [place] [facility] [place] [address] ProviderChano MD [facility] [place], [place] [phone] Social History Tobacco Use Types Packs/Day Years Used Date Smoking Tobacco: Never Assessed Comments Unknown Sex and Gender Information Value Date Recorded Sex Assigned at Not on file Legal Sex Female 2:07 PM CDT Gender Identity Not on file Sexual Orientation Not on file documented as of this encounter Miscellaneous Notes * [employer]ner Conversion Note - Historical ProviderMD - 12/04/2018 1:53 PM MEDICAL DIRECTOR OCCUPATIONAL HEALTH Electronically signed by [facility], [facility] Conversion Leasing Associate Cerner at 01/23/2023 1:35 PM CDT documented in this encounter Plan of Treatment Not on file documented as of this encounter Visit Diagnoses Not on filedocumented in this encounter
--- OUTSIDE RECORDS SUMMARY | 2025-09-06 08:11 | XMS_ITS | Encounter Summary ---
Author Organization [employer] ([place], [place], [place], [place], [place]) Address [address] [place] [address] Care Team Providers Care Barbed Wire Machine Operator Name Role Phone Unavailable Primary Care Provider Unavailabl e Encounter Details Date Type Department Care Team (Late st Contact Info) Description 07/13/2019 Transcribed Document [facility] [place] Family Medicine [address] [place] [address] ProviderChano MD [address] [place], [place] [phone] Social History Tobacco Use Types Packs/Day Years [...] Performed On: 07/13/2019 13:48 EDT by ANNA MALONE, PT Attempt to Treat Inability to Treat [...]
--- OUTSIDE RECORDS SUMMARY | 2025-09-06 08:11 | XMS_ITS | Encounter Summary ---
Author Organization [employer] ([place], [place], [place], [place], [place]) Address [address] [place] [address] Care Team Providers Care Water Quality Technician Name Role Phone Unavailable Primary Care Provider Unavailabl e Encounter Details Date Type Department Care Team (Late st Contact Info) Description 07/13/2019 Transcribed Document [facility] [place] Family Medicine [address] [place] [address] ProviderChano MD [address] [place], [place] [address] Social History Tobacco Use Types Packs/Day Years Used Date Smoking Tobacco: Never Assessed Comments Unknown Sex and Gender Information Value Date Recorded Sex Assigned at Not on file Legal Sex Female 2:07 PM CDT Gender Identity Not on file Sexual Orientation Not on file documented as of this encounter Miscellaneous Notes * [employer]ner Conversion Note - Historical ProviderMD - 07/13/2019 2:00 AM CDT Meteorological Engineer Details Entered On: 07/12/2019 22:55 EDT Performed [...]
--- OUTSIDE RECORDS SUMMARY | 2025-09-06 08:12 | XMS_ITS | Encounter Summary ---
Author Organization [employer] ([place], [place], [place], [place], [place]) Address [address] [place] [address] Care Team Providers Care Dimension Warehouse Supervisor Name Role Phone Unavailable Primary Care Provider Unavailabl e Encounter Details Date Type Department Care Team (Late st Contact Info) Description 07/10/2019 Transcribed Document [facility] [place] Family Medicine [facility] [place] [address] Chano Gatica MD [address] [place] [phone] Social History Tobacco Use Types Packs/Day Years [...] seeing the outpatient neurologist, Dr. Núñez at [facility] who ordered an MRI of [...] tendon. SOCIAL HISTORY: The patient lives in [place] with her . She has four children. [...]
--- OUTSIDE RECORDS SUMMARY | 2025-09-06 08:12 | XMS_ITS | Encounter Summary ---
Author Organization [employer] ([place], [place], [place], [place], [place]) Address [address] [place] [address] Care Team Providers Care Instrument Maintenance Supervisor Name Role Phone Unavailable Primary Care Provider Unavailabl e Encounter Details Date Type Department Care Team (Late st Contact Info) Description 07/12/2019 Transcribed Document [facility] [place] [address] [place] [address] ProviderChano MD [address] [place], [place] [phone] Social History Tobacco Use Types Packs/Day Years [...] BOB España OTR/Rob - 07/12/2019 11:32 EDT documented in this encounter Plan of Treatment Not on file documented as of this encounter Visit Diagnoses Not on filedocumented in this encounter
--- OUTSIDE RECORDS SUMMARY | 2025-09-06 08:12 | XMS_ITS | Clinical Summary ---
Author Organization [facility] , [facility] Address [address] [place] [address] Phone Care Team Providers Care Bowling Alley Mechanic Name Role Phone ROMÁN THOMPSON, BRENDON Primary Care Provider [phone] Damien THOMPSON, Molly Win Unavailable [phone] Reason for Visit and Chief Complaint The Chief Complaint is: left knee pain Problems Includes: Problems addressed during this encounter and other active Problems All Visits Onset Date Resolved Date Provider Condition S tatus Joint Pain Left Knee 02/14/2023 Shahbaz Broderick on PA-C Active Last Documented On 3 1:10PM ; [facility] Joint Pain Hip Right 07/02/2018 Roque Calvillo MD Active Last Documented On 8 1:54PM ; [facility] Joint Pain Right Knee 01/09/2015 Molly kc MD Active Last Documented On 5 10:52AM ; [facility] Plan of Treatment Patient screened for future fall risk: documentation of any fall with injury in past year. - Last Documented On 03/03/2025 2:45PM ; [facility] Fall Risk Assessment: This patient has [...] with the patient. - Last Documented On 03/03/2025 2:45PM ; [facility], [facility] Patient presents today for evaluation of left knee, we discussed she has severe tugm-kk-juse DJD. Has been unable to stand on her own, or ambulate in the last 5 months. She has been fci bound for the last 9-10 months status [...] total knee arthroplasty for this complex patient. - Last Documented On 03/03/2025 2:45PM ; [facility], [facility] Instructions to patient Lose weight Last Documented On 2:33PM ; [facility] Assessments Includes: Assessments from this encounter Findings - Overweight - Last Documented On 03/03/2025 2:45PM ; [facility] Severe left knee DJD [id number]-[id number], medically complex - Last Documented On 03/03/2025 2:45PM ; [facility] Instructions Includes: Instructions from this encounter Instructions to patient Lose weight Last Documented On 2:33PM ; [facility], [facility] Medical Equipment - Implanted Devices Includes: Current Devices No Medical Equipment Recorded Medications Includes: Medications discussed during this encounter and other current Medications Current Medications (continue as prescribed) NIFEdipine ER 60 MG Oral Tab let Extended Release 24 Hour 08/10/2025 Provider: BRENDON FRANCE MD Diagnosis: Last Documented On 1:22PM By Joya Omer ; [facility] Chlorthalidone 25 MG Oral Tablet 08/10/2025 Provider : BRENDON FRANCE MD Diagnosis: Last Documented On 1:22PM By Joya Omer ; [facility] Myrbetriq 25 MG Oral Tablet Extended Release 24 Hour 08/09/2025 Provider: BRENDON FRANCE MD Diagnosis: Last Documented On 1:22PM By Joya Omer ; [facility] Insulin Aspart FlexPen 100 U NIT/ML Subcutaneous Solution Pen-injector 08/08/2025 Provider: Diagnosis: Last Documented On 1:22PM By Joya Omer ; [facility] oxyCODONE HCl 5 MG Oral Tablet 08/08/2025 Provider: BRENDON FRANCE MD Diagnosis: Last Documented On 1:22PM By Joya Omer ; [facility] RABEprazole Sodium 20 MG Ora l Tablet Delayed Release 08/08/2025 Provider: BRENDON FRANCE MD Diagnosis: Last Documented On 1:22PM By Joya Omer ; [facility], [facility] Embecta AutoShield Duo 30G X 5 MM Miscellaneous 08/08/2025 Provider: BRENDON FRANCE MD Diagnosis: Last Documented On 1:22PM By Joya Omer ; [facility], [facility] Insulin Aspart FlexPen 100 U NIT/ML Subcutaneous Solution Pen-injector 08/04/2025 Provider: Diagnosis: Last Documented On 1:22PM By Joya Omer ; [facility], [facility] Methocarbamol 500 MG Oral Tablet 08/04/2025 Provider : BRENDON FRANCE MD Diagnosis: Last Documented On 1:22PM By Joya Omer ; [facility], [facility] Clopidogrel Bisulfate 75 MG Oral Tablet 08/03/2025 Geoff chandler: BRENDON FRANCE MD Diagnosis: Last Documented On 1:22PM By Joya Omer ; [facility], [facility] DULoxetine HCl 60 MG Oral Ca psule Delayed Release Particles 08/01/2025 Provider: BRENDON FRANCE MD Diagnosis: Last Documented On 1:22PM By Joya Omer ; [facility], [facility] Metoclopramide HCl 10 MG Oral Tablet Disintegrating Provider: Diagnosis: Last Documented On 2:26PM By Isa Casarez ; [facility], [facility] Tylenol 500 mg Oral Capsule 03/03/2025 Provider: Diagnosis: Last Documented On 2:27PM By Isa Casarez ; [facility], [facility] Insulin Lispro (0.5 Unit Kimberlee l) 100 UNIT/ML Subcutaneous Solution Pen-injector 03/03/2025 Provider: Diagnosis: Last Documented On 2:28PM By Isa Casarez ; [facility] Ondansetron HCl 4 MG Oral Tablet 03/03/2025 Provider : Diagnosis: Last Documented On 2:28PM By Isa Casarez ; [facility], [facility] MiraLax 17 GM Oral Packet 03/03/2025 Provider: Diagnosis: Last Documented On 2:28PM By Isa Casarez ; [facility], [facility] NIFEdipine 10 MG Oral Capsule 03/03/2025 Provider: Diagnosis: Last Documented On 2:28PM By Isa Casarez ; [facility], [facility] Isosorbide Mononitrate ER 30 MG Oral Tablet Extended Release 24 Hour 03/03/2025 Provider: Diagnosis: Last Documented On 2:29PM By Isa Casarez ; [facility], [facility] Chlorthalidone 15 MG Oral Tablet 03/03/2025 Provider : Diagnosis: Last Documented On 2:30PM By Isa Casarez ; [facility], [facility] Adult Centrum Multi Vitamin Oral Tablet 03/03/2025 P rovider: Diagnosis: Last Documented On 2:30PM By Isa Casarez ; [facility], [facility] Carvedilol 3.125 MG Oral Tablet 03/03/2025 Provider: Diagnosis: Last Documented On 2:30PM By Isa Casarez ; [facility], [facility] Movantik 12.5 MG Oral Tablet 03/03/2025 Provider: Diagnosis: Last Documented On 2:30PM By Isa Casarez ; [facility], [facility] Bisacodyl Laxative 10 MG Rectal Suppository 03/03/2025 Provider: Diagnosis: Last Documented On 2:31PM By Isa Casarez ; [facility], [facility] Asperflex Lidocaine 4% External Cream 03/03/2025 Pro vider: Diagnosis: Last Documented On 2:31PM By Isa Casarez ; [facility], [facility] Sennosides 15 MG Oral Tablet 03/03/2025 Provider: Diagnosis: Last Documented On 2:31PM By Isa Casarez ; [facility], [facility] Dulcolax 10 MG Rectal Suppository 03/03/2025 Provide r: Diagnosis: Last Documented On 2:32PM By Isa Casarez ; [facility], [facility] Naloxone HCl 3 MG/0.1ML Nasal Liquid 03/03/2025 Prov ider: Diagnosis: Last Documented On 2:32PM By Isa Casarez ; [facility], [facility] Simethicone 125 MG Oral Capsule 03/03/2025 Provider: Diagnosis: Last Documented On 2:32PM By Isa Casarez ; [facility], [facility] GNP Loratadine 10 MG Oral Tablet 03/03/2025 Provider : Diagnosis: Last Documented On 2:26PM By Isa Casarez ; [facility], [facility] Simethicone 80 MG Oral Tablet 03/03/2025 Provider: Diagnosis: Last Documented On 2:26PM By Isa Casarez ; [facility], [facility] Mirabegron ER 25 MG Oral Tablet Extended Release 24 Ho ur 03/03/2025 Provider: Diagnosis: Last Documented On 2:25PM By Isa Casarez ; [facility], [facility] Gabapentin 300 MG Oral Capsule 03/03/2025 Provider: Diagnosis: Last Documented On 2:25PM By Isa Casarez ; [facility], [facility] Past Medications on file Pensaid Diclofenac Sodium 1.5% Xena w/w EX SOLN 02/28/2010 - 03/30/2010 Provider: Molly bradford MD Diagnosis: apply 10 drops to affected area bh Last Documented On 0 11:39AM By Ricardo 1 User ; [facility], [facility] Voltaren Gel 1% EX GEL 12/06/2009 - 01/05/2010 Provide r: Molly Quezada MD Diagnosis: apply 4 grams to affected area 4 times per day/a b Last Documented On 0 3:59PM By Ricardo 3 User ; [facility], [facility] Lortab 7.5-500 MG OR TABS 10/04/2009 - 10/09/2009 Prov ider: Molly Quezada MD Diagnosis: as needed for pain Last Documented On 9 8:43AM By Silva 2 User ; [facility] Arixtra 2.5 MG/0.5ML SC SOLN 06/21/2009 - 07/12/2009 P roarmender: Molly Quezada MD Diagnosis: Last Documented On 9 2:34PM By Silva 1 User ; [facility] NOTE EX MISC 05/11/2009 - 05/12/2009 Provider: Ioana Quezada MD Diagnosis: faxed prior auth form back t o [employer] at [phone]// Last Documented On 9 9:47AM By Sirena Huddleston ; [facility] Flector Patch 1.3% PTCH 05/10/2009 - 06/09/2009 Provid er: Molly Quezada MD Diagnosis: apply patch q12hrs Last Documented On 9 3:18PM By Silva 4 User ; [facility] Phenergan 25 MG OR TABS 04/21/2009 - 05/21/2009 Provid er: Molly Quezada MD Diagnosis: Last Documented On 9 11:58AM By Silva 4 User ; [facility] Medications Administered Includes: Administered Medications from this encounter No Administered Medications Recorded Vital Signs Includes: Vital Signs from this encounter Vital Name 03/03/2025 02:33P Height (in) 64 Weight (lb) 270 Body Mass Index 46.3 Body Surface Area 2.2 Note: sr Last Documented: On 03/03/2025 2:33PM ; [facility] Results Includes: Results discussed during this encounter No Results Recorded For Specified Dates History of Present Illness Includes: History of Present Illness from this encounter МАРИНА Savage is a 74 year old female. - Allergy list reviewed - Problem list reviewed - Medication list reviewed - Review of medications documented Social History Description Last Updated No caffeine use 03/03/2025 Last Documented On 5 2:45PM ; [facility] Not a current smoker. 03/03/2025 Last Documented On 5 2:45PM ; [facility] Not using alcohol 03/03/2025 Last Documented On 5 2:45PM ; [facility] Not using drugs 03/03/2025 Last Documented On 5 2:45PM ; [facility] Recent change in diet 03/03/2025 Last Documented On 5 2:45PM ; [facility] Tobacco non-user 11/14/2022 Last Documented On 5 2:33PM ; [facility] Not exercising regularly 02/19/2016 Last Documented On 5 2:33PM ; [facility] Smoking Status Unknown Procedures and Surgical History Includes: Procedures from this encounter Procedures Code Diagnosis Performing Provider Service Location Service Date X-RAY EXAM OF KNEE 3 VIEWS (LEFT) 72086 Unilateral primary osteoarthritis, left knee Blaine Pop PA-C [facility] 03/03/2025 Last Documented On 5 3:18PM ; [facility] an X-ray was performed 67403 Last Documented On 5 2:33PM ; [facility] Surgical History Last Updated History of back surgery 11/14/2022 Last Documented On 5 2:33PM ; [facility] History of History of Gallbladder 2022 Last Documented On 5 2:33PM ; [facility] History of appendectomy 02/19/2016 Last Documented On 5 2:33PM ; [facility] History of total hip replacement 016 Last Documented On 5 2:33PM ; [facility] Medical History Includes: Medical History addressed during this encounter Description Last Updated History of arthritis 11/14/2022 Last Documented On 5 2:33PM ; [facility] History of asthma 11/14/2022 Last Documented On 5 2:33PM ; [facility] History of Heartburn / Acid Reflux 11/14 Last Documented On 5 2:33PM ; [facility] History of History of Blood Clots 2022 Last Documented On 5 2:33PM ; [facility] History of Hypertension 11/14/2022 Last Documented On 5 2:33PM ; [facility] History of Stroke 11/14/2022 Last Documented On 5 2:33PM ; [facility] bilateral shoulder repair, A chilles Repair, right knee arthroscopy ~high cholesterol, heartburn, acid reflux 02/19/2016 Last Documented On 5 2:33PM ; [facility] History of acute myocardial infarction 0 02/19/2016 Last Documented On 5 2:33PM ; [facility] History of depression 02/19/2016 Last Documented On 5 2:33PM ; [facility] History of diabetes mellitus 02/19/2016 Last Documented On 5 2:33PM ; [facility] History of diverticulitis of colon 02/18 Last Documented On 5 2:33PM ; [facility] History of gastric ulcer 02/19/2016 Last Documented On 5 2:33PM ; [facility], [facility] Intermittent hypertension 02/19/2016 Last Documented On 5 2:33PM ; [facility], [facility] Family History Includes: Family History addressed during this encounter Description Last Updated Stroke / Seizures 03/08/2024 Last Documented On 5 2:33PM ; [facility], [facility] stroke/seizures 02/19/2016 Last Documented On 5 2:33PM ; [facility], [facility] Family history of diabetes mellitus 02/03 Last Documented On 5 2:33PM ; [facility], [facility] Family history of heart disease 02/19/20 16 Last Documented On 5 2:33PM ; [facility], [facility] Family history of hypertension 6 Last Documented On 5 2:33PM ; [facility], [facility] Family history of osteoporosis 6 Last Documented On 5 2:33PM ; [facility], [facility] Family history of thromboembolic disease 02/19/2016 Last Documented On 2:33PM ; [facility] Review of Systems Includes: Review of [...] Active Last Documented On 08/11/2025 1:22PM ; [facility] Note: CONGESTIVE HEART FAILURE NSAIDs Allergy HURTS STOMACH 01/09/2015 Activ e Last Documented On 08/11/2025 1:22PM ; [facility] Note: HAS ULCERS Ibuprofen Allergy Nausea, Vomiting 03/03/2025 Ac tive Last Documented On 1:22PM ; [facility] Encounters Encounter Provider Location Date Check-In Time Check-Out Time Diagnosis Follow Up Blaine Pop PA-C [facility] 1:30PM 2:49PM Overweight Insurance Includes: Active Insurance Policies Plan Name Member ID Group # Subscriber Relationship Effect joaquim Dates 1 - [facility] [id number] Adrienne Savage Self Clinical Notes Includes: Clinical Notes from this encounter * Progress note Date Encounter Last Documented by 03/03/2025 Follow Up Last documented on 03/03/2025; 2:45 PM, Blaine Pop PA-C; [facility] Active Problems & Conditions - Joint [...] Solution Pen-injector 90 days, 0 refills - [id number] Ethyl Esters 1 GM Oral Capsule 90 [...] Three-view x-ray left knee taken today demonstrates rceg-xm-eims DJD Assessment - Overweight Severe left knee DJD [id number], medically complex Previous Tests Imaging: X-Ray: X-ray. [...] left knee, we discussed she has severe znlc-rn-pdlo DJD. Has been unable to stand on her own, or ambulate in the last 5 months. She has been fci bound for the last 9-10 months status [...] Care Team - BRENDON FRANCE MD - SNACK STEWARD
--- OUTSIDE RECORDS SUMMARY | 2025-09-06 08:12 | XMS_ITS | Encounter Summary ---
Author Organization [employer] ([place], [place], [place], [place], [place]) Address [address] [place] [address] Care Team Providers Care Hand Winder Name Role Phone Unavailable Primary Care Provider Unavailabl e Encounter Details Date Type Department Care Team (Late st Contact Info) Description 07/10/2019 Transcribed Document [facility] Family Medicine [facility] [place] [address] ProviderChano MD [facility] [place], [place] [id number] Social History Tobacco Use Types Packs/Day Years [...] mg, 14 mL, 128 mL/Hr, IV Piggyback, [id number] Cymbalta: 60 mg, Oral, At Bedtime DuoNeb [...] chew) Flonase 0.05 mg/inh nasal spray: 2 [place], Nasal, Daily, 16 Gram, 0 Refill(s) Lantus: [...] Bedtime Flonase 0.05 mg/inh nasal spray 2 [place], Nasal, Daily Lantus 60 Units, SubCutaneous, At [...] mL 700 mg 14 mL, IV Piggyback, [id number] docusate sodium 100 mg cap 100 mg [...] list: Medical Wears glasses / SNOMED CT 808114984 / Confirmed Sleep apnea///risk / SNOMED CT 269582986 / Confirmed Colon polyps / SNOMED CT 481471240 / Confirmed Right leg pain / SNOMED CT 5892184431 / Confirmed Obesity / SNOMED CT 4159812489 / Confirmed Numbness and tingling//right leg / SNOMED CT 4314071317 / Confirmed Memory deficit///slow recall / SNOMED CT 8178427131 / Confirmed H/O ischemic left MCA stroke / SNOMED CT 2276875373 / Confirmed Hiatal hernia / SNOMED CT 875654630 / Complaint of Fibromyalgia / SNOMED CT 143235106 / Confirmed Lumbar disc disease / SNOMED CT 7388370140 / Confirmed Completely occulded L carotid / SNOMED CT 3901775834 / Confirmed Chest pain///cath negative / SNOMED CT 45821318 / Confirmed Cataract///beginning stage / SNOMED CT 499569716 / Confirmed Back pain / SNOMED CT 8094226551 / Confirmed At risk for sleep apnea / IMO 08512246 / Confirmed Pain//chronic / SNOMED CT 150453772 / Confirmed, Active Problems (24) Acid reflux [...] hrs) Last Charted Minimum Maximum Temp 97.8 (OCT 05 10:07) 97.8 (OCT 05 10:07) H 100.7 (JUL 05 01:26) Apical HR 98 (OCT 04 21:37) 98 (OCT 04 21:37) 98 (OCT 04 21:37) Mon HR 80 (OCT 05 10:07) 66 (OCT 04 20:48) 89 (OCT 05 01:26) Resp Rate 16 (OCT 05 10:07) 14 (OCT 04 16:25) H [...] (JUL 08) Radiology Results (Last 48 hours) [id number] -- 07/08/2019 21:23 CT Spine Lumbar WO [...] Images reviewed, interpreted, and dictated by Dr. Davrin Marcos.Transcribed by Aquiles Guaman (R).I have personally [...]
--- OUTSIDE RECORDS SUMMARY | 2025-09-06 08:12 | XMS_ITS | Encounter Summary ---
Author Organization [employer] ([place], [place], [place], [place], [place]) Address [address] [place] [address] Care Team Providers Care Box Repairer Name Role Phone Unavailable Primary Care Provider Unavailabl e Encounter Details Date Type Department Care Team (Late st Contact Info) Description 07/10/2019 Transcribed Document [facility] [address] [place] [address] ProviderChano MD [address] [place] [address] Social History Tobacco Use Types [...] Post surgery problem 07/08/2019 12:00 Weakness Delon Sams PT - 07/16/2019 15:41 EDT Onset of Problem, PT : 07/11/2019 EDT Delon Sams, PT - 07/16/2019 15:32 EDT Admission Date : 07/11/2019 09:51 Personal Devices : Personal Devices Dentures, upper Assistive Devices : Assistive Devices No Devices Recorded Delon Sams, PT - 07/16/2019 15:41 EDT Precautions in [...] EDT Treatment Time : 29 Minute(s) Delon Sams PT - 07/16/2019 15:32 EDT Therapeutic Exercises [...] Delon Sams, PT - 07/16/2019 15:32 EDT Fence Maker Goals Mobility/Bed Mobility LTG PT Grid Goal [...] Attempted to use Rwx for transfer to C Pt agreed to use but was unhappy [...] Anticipated Discharge to : Unit, rehabilitation, Unit, halfway Recommend Continued Therapy at Discharge : Yes Delon Sams PT - 07/16/2019 15:32 EDT [facility] PT Charges PT Therap. Exercise 15 min : 1 Gait Training Each 15 Min : 1 Delon Sams, PT - 07/16/2019 15:32 EDT Electronically signed by Julian Wheeler Conversion Building Construction Engineer Cerner at 01/23/2023 1:40 PM CDT documented in this encounter Plan of Treatment Not on file documented as of this encounter Visit Diagnoses Not on filedocumented in this encounter
--- OUTSIDE RECORDS SUMMARY | 2025-09-06 08:12 | XMS_ITS | Encounter Summary ---
Author Organization [employer] ([place], [place], [place], [place], [place]) Address [address] [place] [address] Care Team Providers Care Shoe Patternmaker Name Role Phone Unavailable Primary Care Provider Unavailabl e Encounter Details Date Type Department Care Team (Late st Contact Info) Description 07/28/2019 Transcribed Document [facility] [place] [address] ProviderChano MD [address] [place] [phone] Social History Tobacco Use Types Packs/Day Years [...] epithelial cells. Urine culture was positive for [id number] CFU/mL. CT of the L-spine was negative. [...] or confusion. ROS and hx discussed with [id number], has had ceofusion and fever last 2 [...] fluticasone nasal (Flonase) - 1 Puff, Nasal, [place], Daily, Routine miconazole topical (Desenex AF 2% [...] Last Charted Minimum Maximum Temp 97.2 (JUL 28 10:) 97.2 (JUL 28 10:27) 98 (JUL 27 16:00) Apical HR 60 (JUL 28 08:16) L 55 (JUL 27 21:35) 60 (JUL 28 08:16) Mon HR 81 (JUL 28 10:27) 55 (JUL 27 21:26) 81 (JUL 28 10:27) Resp Rate 17 (JUL 28 10:) 16 (JUL 27 18:30) 18 (JUL 28 [...] 38.1 (JUL 27) 40.4 (OCT 17) 37.0 (JUL 16) 35.4 (JUL 13) Plt 311 (JUL 27) 241 (JUL 17) 273 (JUL 16) 277 (JUL 13) Na 138 (JUL 27) 137 (JUL 17) 141 (JUL 16) 143 (JUL 13) K 4.9 (JUL 27) 4.2 (JUL 17) 3.7 (JUL 16) 4.1 (JUL 18) Cl 105 (JUL 27) 107 (JUL 17) 107 (JUL 16) 106 (JUL 13) CO2 26 (JUL [...] 9.5 (JUL 27) 9.0 (OCT 17) 9.1 (JUL 16) 9.4 (JUL 13) PT 9.9 (JUL 09) 10.1 (JUL 08) INR 0.9 (JUL 09) 0.9 (JUL 03) PTT 28.0 (JUL 03) AST 20 (JUL 27) 15 (JUL 16) 18 (JUL 12) 16 (JUL 04) ALT 24 (JUL 27) 24 (OCT 16) 25 (JUL 07) 23 (JUL 04) ALK P 56 (JUL 27) 56 (JUL 16) 56 (JUL 12) 69 (JUL 04) T Bili L 0.1 [...] cultures Follow labs UM discussed with KHARI Completions Manager ESR slightly up documented in this encounter Plan of Treatment Not on file documented as of this encounter Visit Diagnoses Not on filedocumented in this encounter
--- OUTSIDE RECORDS SUMMARY | 2025-09-06 08:12 | XMS_ITS | Encounter Summary ---
Author Organization [employer] ([place], [place], [place], [place], [place]) Address [address] [place] [address] Care Team Providers Care Box Annealer Name Role Phone Unavailable Primary Care Provider Unavailabl e Encounter Details Date Type Department Care Team (Late st Contact Info) Description 07/10/[address] [facility] [place] [address] [place] [address] ProviderChano MD [address] [place], [place] [phone] Social History Tobacco Use Types Packs/Day Years Used Date Smoking Tobacco: Never Assessed Comments Unknown Sex and Gender Information Value Date Recorded Sex Assigned at Not on file Legal Sex Female 2:07 PM CDT Gender Identity Not on file Sexual Orientation Not on file documented as of this encounter Miscellaneous Notes * Cerner Conversion Note - Historical ProviderMD - 07/10/2019 10:24 AM CDT Treatment Intervention, OT Entered On: 07/26/2019 12:32 EDT Performed On: 07/26/2019 10:03 EDT by MEME SWAIN COTA General Information, OT Visit Type, OT : Treatment Note Patient Orders : Order Date Order Ordering 07/09/2019 15:06 Occupational Therapy Evaluation and Treatme Ordered By: CATRACHITO THOMPSON, MD ONUR 07/10/2019 10:24 OT Additional Treatment Ordered By: [...] Tx Plan/Goals Established w Patient : Yes MEME SWAIN COTA - 07/26/2019 12:25 EDT Car Jockey Goals, OT Toileting LTG Grid Goal #1 [...]
--- OUTSIDE RECORDS SUMMARY | 2025-09-06 08:12 | XMS_ITS | Encounter Summary ---
Author Organization [employer] ([place], [place], [place], [place], [place]) Address [address] [place] [address] Care Team Providers Care Structural Steel Worker Apprentice Name Role Phone Unavailable Primary Care Provider Unavailabl e Encounter Details Date Type Department Care Team (Late st Contact Info) Description 07/27/2019 Transcribed Document [facility] Radiology [address] [place] [address] Abby Reid MD [address] [place] [address] [place] [id number] Social History Tobacco Use Types Packs/Day Years [...] chew) Flonase 0.05 mg/inh nasal spray: 2 [place], Nasal, Daily, 16 Gram, 0 Refill(s) Lantus [...] Bedtime Flonase 0.05 mg/inh nasal spray 2 [place], Nasal, Daily gabapentin 300 mg oral capsule [...] Problem list: Medical Pain//chronic / SNOMED CT 890154469 / Confirmed At risk for sleep apnea / IMO 07972054 / Confirmed Back pain / SNOMED CT 0228448134 / Confirmed Cataract///beginning stage / SNOMED CT 398807102 / Confirmed Chest pain///cath negative / SNOMED CT 58370656 / Confirmed Completely occulded L carotid / SNOMED CT 7069971515 / Confirmed Lumbar disc disease / SNOMED CT 4353084200 / Confirmed Fibromyalgia / SNOMED CT 561940368 / Confirmed Hiatal hernia / SNOMED CT 018061129 / Complaint of H/O ischemic left MCA stroke / SNOMED CT 6424883037 / Confirmed Memory deficit///slow recall / SNOMED CT 9533451437 / Confirmed Numbness and tingling//right leg / SNOMED CT 1460465326 / Confirmed Obesity / SNOMED CT 3186575434 / Confirmed Right leg pain / SNOMED CT 7130423701 / Confirmed Colon polyps / SNOMED CT 792443327 / Confirmed Sleep apnea///risk / SNOMED CT 242701789 / Confirmed Wears glasses / SNOMED CT 958384225 / Confirmed, Active Problems (24) Acid reflux [...] Mon HR 60 (JUL 27 06:32) 60 (JUL 26 22:30) 82 (JUL 26 [...] (JUL 16) 106 (JUL 13) CO2 26 (OCT [...]
--- OUTSIDE RECORDS SUMMARY | 2025-09-06 08:12 | XMS_ITS | Encounter Summary ---
Author Organization [employer] ([place], [place], [place], [place], [place]) Address [address] [place] [address] Care Team Providers Care Coal Carrier Name Role Phone Unavailable Primary Care Provider Unavailabl e Encounter Details Date Type Department Care Team (Late st Contact Info) Description 07/09/2019 Transcribed Document [facility] [place] Family Medicine [address] [place] [address] ProviderChano MD [facility] [place] [id number] Social History Tobacco Use Types Packs/Day Years Used Date Smoking Tobacco: Never Assessed Comments Unknown Sex and Gender Information Value Date Recorded Sex Assigned at Not on file Legal Sex Female 2:07 PM CDT Gender Identity Not on file Sexual Orientation Not on file documented as of this encounter Miscellaneous Notes * Cerner Conversion Note - Chano ProviderMD - 07/09/2019 8:42 AM CDT ED [...]
--- OUTSIDE RECORDS SUMMARY | 2025-09-06 08:12 | XMS_ITS | Encounter Summary ---
Author Organization [employer] ([place], [place], [place], [place], [place]) Address [address] [place] [address] Care Team Providers Care House Principal Name Role Phone Unavailable Primary Care Provider Unavailabl e Encounter Details Date Type Department Care Team (Late st Contact Info) Description 07/11/2019 Transcribed Document [facility] [place] [address] [place] [address] ProviderChano MD [address] [place], [place] [id number] Social History Tobacco Use Types Packs/Day Years [...] Plan: [employer] HMO Policy Number: [id number] Authorization Number: [id number] Insurance Primary Name : [employer] [id number] Authorization Status-Primary : Opo status approv Authorization Fax Number-Primary : [phone] Auth/Referral Phone Number-Primary : [phone] x [phone] Auth/Referral Contact Name-Primary : Saulo Hanks Authorized Service Begin Date-Primary : 07/08/2019 EDT Observation Authorization Nbr-Primary : [id number] Authorization Comments-Primary : per IPAS patient meets ip criteria. obtained ip order submitted on [facility] for ip auth Historical Authorization Comments-Primary : Comment 1: submitted for and obtained opo approval from [facility] opo auth# [id number] (ROSEY SANTILLAN, Retread Mold Operator 07/09/2019 12:59) Mary Jackson Rn-Utilization Review - 07/11/2019 9:43 EDT Electronically signed by Summer [facility] Conversion Tape Recorder Mechanic Cerner at 01/23/2023 1:22 PM CDT documented in this encounter Plan of Treatment Not on file documented as of this encounter Visit Diagnoses Not on filedocumented in this encounter
--- OUTSIDE RECORDS SUMMARY | 2025-09-06 08:12 | XMS_ITS | Encounter Summary ---
Author Organization [employer] ([place], [place], [place], [place], [place]) Address [address] [place] [address] Care Team Providers Care Information Systems Coordinator Name Role Phone Unavailable Primary Care Provider Unavailabl e Encounter Details Date Type Department Care Team (Late st Contact Info) Description 10/05/2019 Transcribed Document [facility] [place] [address] [place] [address] ProviderChano MD [address] [place] [phone] Social History Tobacco Use Types Packs/Day Years Used Date Smoking Tobacco: Never Assessed Comments Unknown Sex and Gender Information Value Date Recorded Sex Assigned at Not on file Legal Sex Female 2:07 PM CDT Gender Identity Not on file Sexual Orientation Not on file documented as of this encounter Miscellaneous Notes * Cerner Conversion Note - Historical ProviderMD - 10/05/2019 9:07 PM SUBWAY REPAIR SUPERVISOR Pain Assessment Entered On: 10/05/2019 22:22 EST Performed On: 10/05/2019 22:22 EST by KYA RODRIGES RN Intervention Information: morphine Performed by Ludmila Bose, Elastic Attacher Coverstitch on 10/05/2019 21:52:00 EST morphine,4mg IV Push,Peripheral [...] form. Electronically signed by Julian Wheeler Conversion Seed Analysis Laboratory Assistant Cerner at 01/23/2023 1:09 PM CDT documented in this encounter Plan of Treatment Not on file documented as of this encounter Visit Diagnoses Not on filedocumented in this encounter
--- OUTSIDE RECORDS SUMMARY | 2025-09-06 08:12 | XMS_ITS | Encounter Summary ---
Author Organization [employer] ([place], [place], [place], [place], [place]) Address [address] [place] [address] Care Team Providers Care Plant Tender Name Role Phone Unavailable Primary Care Provider Unavailabl e Encounter Details Date Type Department Care Team (Late st Contact Info) Description 10/05/2019 Transcribed Document [facility] [place] Family Medicine [address] [place] [address] ProviderChano MD [address] [place] [address] Social History Tobacco Use Types [...] Chano Gatica MD - 10/05/2019 11:18 PM INSULATION BOARD COATER OPERATOR [facility] [place] [address] LUDY ANTONIO :1950 Visit Time:10/05/2019 [...] if condition worsens Where: [address] [place] [address]- Business (1) Follow Up with QUIRINO NADEEN When Within 2 to 3 days Comments Call for follow up appointment Follow-up as instructed Return if condition worsens Where: [address] [place] [address]- Business (1) Allergies Avandia (CHF) [...] range between ( 0.0 and 7.0 ) Linn #: 0.53 K/uL -- Normal range between ( 0.16 and 1.00 ) Eos #: 0.08 x10(3)/uL -- Normal range between ( 0.00 and 0.80 ) [place]inn %: 6.1 % -- Normal range between [...] ) Urine Bilirubin Dipstick: Negative Urine Specific Mobile: 1.021 -- Normal range between ( 1.005 [...] you start to feel better. ??? Take iazf-eap-tyazbfa and prescription medicines only as told by [...] 07/02/2006 Document Revised: 06/16/2017 Document Reviewed: 06/16/2017 meets Interactive Patient Education ?? 2019 meets Inc. Esophageal Spasm An esophageal spasm is [...] or very cold. General instructions ??? Take ftca-pbm-lowglze and prescription medicines only as told by [...] 12/13/2003 Document Revised: 06/23/2018 Document Reviewed: 06/23/2018 meets Interactive Patient Education ?? 2019 meets Inc. Panic Attack A panic attack is [...] problems, neurological conditions, and infections. ??? Certain wsyt-rqc-ylbszfo and prescription medicines. ??? Illegal drugs that [...] Follow these instructions at home: ??? Take flps-neu-fqyheij and prescription medicines only as told by [...] 09/22/2006 Document Revised: 10/31/2017 Document Reviewed: 10/31/2017 meets Interactive Patient Education ?? 2019 [employer]. Social Anxiety Disorder, Adult Social anxiety disorder, [...] Follow these instructions at home: ??? Take dgwe-qcq-sbmpygf and prescription medicines only as told by [...] 08/21/2006 Document Revised: 2017 Document Reviewed: 2017 meets Interactive Patient Education ?? 2019 [employer]. Emergency Awareness and Preventative Care STROKE is [...] Assistance with quitting is available by contacting 4-733-TUAZ-NOW. This is a free resource providing counseling, support, and referral. Or you may contact your personal physician. Modular [employer]s Suicide Prevention Lifeline: The National Suicide Prevention [...] was given the opportunity to ask questions. Patient/Pharmacy Data Analyst Name: Patient/Pharmacy Data Analyst Signature: Relationship to Patient: Clinician/Hospital Pharmacy Data Analyst Signature: Please Provide a Telephone Number Where You Can Be Reached: Is it Permissible To Leave a Message? Date: Electronically signed by Summer [facility] Conversion Muffler Hand Wade at 01/23/2023 1:25 PM CDT documented in this encounter Plan of Treatment Not on file documented as of this encounter Visit Diagnoses Not on filedocumented in this encounter
--- OUTSIDE RECORDS SUMMARY | 2025-09-06 08:12 | XMS_ITS | Encounter Summary ---
Author Organization [employer] ([place], [place], [place], [place], [place]) Address [address] [place] [address] Care Team Providers Care Cleaner Carpet And Upholstery Name Role Phone Unavailable Primary Care Provider Unavailabl e Encounter Details Date Type Department Care Team (Late st Contact Info) Description 10/05/[address] [facility] [place] [address] [place] [address] ProviderChano MD [address] [place] [phone] Social History Tobacco Use Types Packs/Day Years Used Date Smoking Tobacco: Never Assessed Comments Unknown Sex and Gender Information Value Date Recorded Sex Assigned at Not on file Legal Sex Female 2:07 PM CDT Gender Identity Not on file Sexual Orientation Not on file documented as of this encounter Miscellaneous Notes * Cerner Conversion Note - Historical ProviderMD - 10/05/2019 6:04 PM PLASTIC AND RECONSTRUCTIVE SURGEON Hendricks Suicide Severity Rating Scale (C-SSRS) Entered On: 10/05/2019 20:59 EST Performed On: 10/05/2019 20:42 EST by SRINIVAS RODRIGES RN-Resource Hendricks Suicide Severity Rating Scale (C-SSRS) CSSRS Past [...]
--- OUTSIDE RECORDS SUMMARY | 2025-09-06 08:12 | XMS_ITS | Encounter Summary ---
Author Organization [employer] ([place], [place], [place], [place], [place]) Address [address] [place] [address] Care Team Providers Care Statement Distribution Clerk Name Role Phone Unavailable Primary Care Provider Unavailabl e Encounter Details Date Type Department Care Team (Late st Contact Info) Description 07/09/2019 Transcribed Document [facility] [place] Family Medicine [address] [place] [address] ProviderChano MD [address] [place], [place] [phone] Social History Tobacco Use Types Packs/Day Years Used Date Smoking Tobacco: Never Assessed Comments Unknown Sex and Gender Information Value Date Recorded Sex Assigned at Not on file Legal Sex Female 2:07 PM CDT Gender Identity Not on file Sexual Orientation Not on file documented as of this encounter Miscellaneous Notes * Cerner Conversion Note - Chano ProviderMD - 07/09/2019 2:02 PM CDT [facility] Main OR PACU Summary Primary Physician: CATRACHITO THOMPSON, MD ONUR Finalized Date/Time: 07/09/19 17:27:56 Pt. Name: LUDY ANTONIO D.O.B./Sex: 1950 Female Med Rec #: [id number] Physician: TOM MORSE MD-INT Financial #: [id number] Pt. Type: O Room/Bed: [facility]/1 Admit/Disch: 07/08/19 21:23:00 - Institution: [facility] Main OR PACU I Case Times Entry 1 In PACU I 07/09/19 15:15:00 Ready for PACU 07/09/19 16:37:00 Discharge Discharge from PACU 07/09/19 16:37:00 I Last Modified By: EDGARD COLLADO RN 07/09/19 17:27:46 Finalized By: EDGARD COLLADO, RN Document Signatures Signed By: EDGARD COLLADO RN 07/09/19 17:27 Electronically signed [address] Summer [facility] Conversion Mill Laborer Cerner at 01/23/2023 1:25 PM CDT documented in this encounter Plan of Treatment Not on file documented as of this encounter Visit Diagnoses Not on filedocumented in this encounter
--- OUTSIDE RECORDS SUMMARY | 2025-09-06 08:12 | XMS_ITS | Clinical Summary ---
[facility] Organization [facility] Address [address] [place] [address] Care Team Providers Care Cloth Printing Inspector Name Role Phone Mumtaz Colon MD Primary Care Provider [phone] Allergies Active Allergy Reactions Criticality Noted Date [...] Date Last Done Comments DXA SCAN 1950 TDAP/TD VACCINES (1 - Tdap) 12/14/1996 12/13/1996 Pneumococcal Vaccine 50+ (1 of 1 - PCV) 1999 ANNUAL PHYSICAL 01/19/2019 ZOSTER VACCINE (2 of 2) 12/16/2023 10/21/2023 RSV Vaccine - Adults (1 - 1- dose 75+ series) 2024 INFLUENZA VACCINE 05/06/2025 07/07/2024, 07/27/2018 COVID-19 Vaccine (2024- season) 2025 09/24/2021, 11/29/2020, 11/04/2020 HEPATITIS C SCREENING Completed 06/01/2024, [address] [facility] MED[facility] ADV[facility] PPO Care Teams Cloth Printing Inspector Relationship Specialty Start Date End Date Mumtaz Colon MD [address] [place] [address] [place] [address] PCP - General Adolescent Medicine 10/11/23
--- OUTSIDE RECORDS SUMMARY | 2025-09-06 08:12 | XMS_ITS | Encounter Summary ---
Author Organization [employer] ([place], [place], [place], [place], [place]) Address [address] [place] [address] Care Team Providers Care Machine Helper Name Role Phone Unavailable Primary Care Provider Unavailabl e Encounter Details Date Type Department Care Team (Late st Contact Info) Description 07/28/2019 Transcribed Document [facility] [place] Family Medicine [facility] [place] [address] ProviderChano MD [address] [place] [id number] Social History Tobacco Use Types Packs/Day Years [...]
--- OUTSIDE RECORDS SUMMARY | 2025-09-06 08:12 | XMS_ITS | Encounter Summary ---
Author Organization [employer] ([place], [place], [place], [place], [place]) Address [address] [place] [address] Care Team Providers Care Hourly Manager Name Role Phone Unavailable Primary Care Provider Unavailabl e Encounter Details Date Type Department Care Team (Late st Contact Info) Description 07/12/2019 Transcribed Document [facility] [place] [address] [place] [address] ProviderChano MD [address] [place], [place] [phone] Social History Tobacco Use Types Packs/Day Years [...] to city but thinks we are at [facility]. knows date. Knows current President. Motor - [...]
--- OUTSIDE RECORDS SUMMARY | 2025-09-06 08:12 | XMS_ITS | Encounter Summary ---
Author Organization [employer] ([place], [place], [place], [place], [place]) Address [address] [place] [address] Care Team Providers Care Wrapping Checker Name Role Phone Unavailable Primary Care Provider Unavailabl e Encounter Details Date Type Department Care Team (Late st Contact Info) Description 07/09/2019 Transcribed Document [facility] [place] Family Medicine [address] [place] [address] ProviderChano MD [address] [place], [place] [phone] Social History Tobacco Use Types Packs/Day Years Used Date Smoking Tobacco: Never Assessed Comments Unknown Sex and Gender Information Value Date Recorded Sex Assigned at Not on file Legal Sex Female 2:07 PM CDT Gender Identity Not on file Sexual Orientation Not on file documented as of this encounter Miscellaneous Notes * Cerner Conversion Note - Chano ProviderMD - 07/09/2019 1:15 PM CDT Procedural Documentation [...] Anesthesiologist Procedure Case Attendee Role 2 : supervisor keymodule assembly Case Attendee 2 : Miriam Boudreaux RN Procedure Case Attendee Role 3 : supervisor keymodule assembly Case Attendee 3 : MARINA Jaquez RN [...]
--- OUTSIDE RECORDS SUMMARY | 2025-09-06 08:12 | XMS_ITS | Encounter Summary ---
Author Organization [employer] ([place], [place], [place], [place], [place]) Address [address] [place] [address] Care Team Providers Care Drop Tester Name Role Phone Unavailable Primary Care Provider Unavailabl e Encounter Details Date Type Department Care Team (Late st Contact Info) Description 07/09/2019 Transcribed Document [facility] [place] [facility] [place] [address] ProviderChano MD [address] [place] [phone] Social History Tobacco Use Types Packs/Day Years [...] epithelial cells. Urine culture was positive for 10???424116 CFU/mL. CT of the L-spine was negative. [...] nasal (Flonase) - 1 Puff, Nasal, [place], Daily, Routine Pain Meds HYDROmorphone (Dilaudid) - [...] microdiscectomy as outlined above, cardiac catheterization in 2012. Family History: Reviewed, noncontributory. Social History: Denies [...] SBP H 147 (JUL 09 13:02) 139 (JUL 09 04:00) H 147 (JUL 09 13:02) DBP [...] Micro: Rad: Radiology Results (Last 48 hours) [id number] -- 07/08/2019 21:23 CT Spine Lumbar WO [...]
--- OUTSIDE RECORDS SUMMARY | 2025-09-06 08:12 | XMS_ITS | Encounter Summary ---
Author Organization [employer] ([place], [place], [place], [place], [place]) Address [address] [place] [address] Care Team Providers Care Check Weigher Name Role Phone Unavailable Primary Care Provider Unavailabl e Encounter Details Date Type Department Care Team (Late st Contact Info) Description 07/11/2019 Transcribed Document [facility] [place] Family Medicine [facility] [place] [address] ProviderChano MD [address] [place] [phone] Social History Tobacco Use Types Packs/Day Years [...] epithelial cells. Urine culture was positive for 10???876748 CFU/mL. CT of the L-spine was negative. [...] or confusion. ROS and hx discussed with [id number], has had ceofusion and fever last 2 weeks. 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, especially this summer Allergies:Allergies (1) Active Reaction Avandia CHF Medications:Medications by Classification Antimicrobials cefTRIAXone (Rocephin) - 2 Gram, IV Piggyback, [id number], infuse over 30 Minute(s), Routine DAPTOmycin + Sodium Chloride 0.9% intravenous solution 50 mL - 700 mg, IV Piggyback, [id number], infuse over 30 Minute(s), Routine Anticoagulant enoxaparin [...] fluticasone nasal (Flonase) - 1 Puff, Nasal, [place], Daily, Routine Pain Meds morphine - 2 [...] 09) 30 (JUL 08) BUN 14 (JUL 11) 19 (JUL 09) [...] Micro: Rad: Radiology Results (Last 48 hours) [id number] -- 07/08/2019 21:23 CR Fluoro in OR [...]
--- OUTSIDE RECORDS SUMMARY | 2025-09-06 08:12 | XMS_ITS | Encounter Summary ---
Author Organization [employer] ([place], [place], [place], [place], [place]) Address [address] [place] [address] Care Team Providers Care Chief Of Staff Doctor Name Role Phone Unavailable Primary Care Provider Unavailabl e Encounter Details Date Type Department Care Team (Late st Contact Info) Description 07/09/2019 Transcribed Document [facility] [place] Family Medicine [facility] [place] [address] ProviderChano MD [facility] [place], [place] [phone] Social History Tobacco Use Types Packs/Day Years [...] indolent infection. Plan for redo right L3-4 [place] LMD with cultures with Dr. Winston today. [...] Bedtime Flonase 0.05 mg/inh nasal spray, 2 [place], Nasal, Daily Lantus, 60 Units, SubCutaneous, At [...] 2 Tab, Oral, Q6H, PRN Vitamin D3, 44701 Int Units, Oral, See Comment Allergies Avandia (CHF) NSAIDs fenofibrate metFORMIN statins (Fenofibrate, Fenofibrate) Social History Alcohol Use in Last 12 Months: No. Employment/School Retired, Previous employment/school: [employer]. Home/Environment Lives with Spouse. Living situation: Home [...] Lymph # 3.62 x10(3)/uL 07/08/2019 19:39 EDT [place] % 8.4 % 07/09/2019 04:17 EDT [place] % 8.1 % 07/08/2019 19:39 EDT [place] # 0.66 K/uL 07/09/2019 04:17 EDT [place] # 0.74 K/uL 07/08/2019 19:39 EDT Eos [...] Appearance ERROR 07/08/2019 19:39 EDT Urine Specific [place] 1.013 07/08/2019 19:39 EDT Urine pH Dipstick [...]
--- OUTSIDE RECORDS SUMMARY | 2025-09-06 08:12 | XMS_ITS | Encounter Summary ---
Author Organization [employer] ([place], [place], [place], [place], [place]) Address [address] [place] [address] Care Team Providers Care Ventilating Expert Name Role Phone Unavailable Primary Care Provider Unavailabl e Encounter Details Date Type Department Care Team (Late st Contact Info) Description 07/11/2019 Transcribed Document [facility] [place] [address] [place] [address] ProviderChano MD [address] [place], [place] [phone] Social History Tobacco Use Types Packs/Day Years Used Date Smoking Tobacco: Never Assessed Comments Unknown Sex and Gender Information Value Date Recorded Sex Assigned at Not on file Legal Sex Female 2:07 PM CDT Gender Identity Not on file Sexual Orientation Not on file documented as of this encounter Miscellaneous Notes * Cerner Conversion Note - Historical ProviderMD - 07/11/2019 2:00 AM CDT Breaster Details Entered On: 07/11/2019 6:08 EDT Performed [...]
--- OUTSIDE RECORDS SUMMARY | 2025-09-06 08:12 | XMS_ITS | Encounter Summary ---
Author Organization [employer] ([place], [place], [place], [place], [place]) Address [address] [place] [address] Care Team Providers Care Operations Research Manager Name Role Phone Unavailable Primary Care Provider Unavailabl e Encounter Details Date Type Department Care Team (Late st Contact Info) Description 07/10/2019 Transcribed Document [facility] [place] [address] [place] [address] ProviderChano MD [address] [place], [place] [phone] Social History Tobacco Use Types Packs/Day Years [...] GIRMA GONZALEZ MD-NEU - 07/10/2019 15:15 EDT Electronically signed by Summer [facility] Conversion Material Requisitioner Cerner at 01/23/2023 1:16 PM CDT documented in this encounter Plan of Treatment Not on file documented as of this encounter Visit Diagnoses Not on filedocumented in this encounter
--- OUTSIDE RECORDS SUMMARY | 2025-09-06 08:12 | XMS_ITS | Encounter Summary ---
Author Organization [employer] ([place], [place], [place], [place], [place]) Address [address] [place] [address] Care Team Providers Care Press Officer Name Role Phone Unavailable Primary Care Provider Unavailabl e Encounter Details Date Type Department Care Team (Late st Contact Info) Description 07/28/2019 Transcribed Document [facility] [place] [address] [place] [address] ProviderChano MD [address] [place] [address] Social History Tobacco Use Types [...] Gatica MD - 07/28/2019 10:41 AM CDT [facility] [place] [address] ADRIENNE ANTONIO :1950 Visit Time:07/11/2019 Your Visit Summary Your Care Team Admitting Physician - TOM MORSE MD-INT MA, YUCHEN, MD-INT PHY, UNKNOWN HEIDI ROBISON MD-AVINASH Attending Physician - TOM MORSE MD-INT MA, YUCHEN, MD-INT WAGNER, PHILLIP L, MD-AVINASH Primary Care Physician - QUIRINO SENIOR (REF)DEISY Referring Physician - HEIDI ROBISON MD-EMR Your Diagnosis Back pain, Back pain Generalized [...] squatting, or lifting greater than 10 pounds. [facility]: [facility]--[phone] Please note the following medication changes: - [...] WINSTON When 08/11/2019 11:00 AM EST Where: [facility] [address] [place] [address]- Business (1) Follow Up with RUPAL CEVALLOS When 08/04/2019 09:30 AM EDT Where: [facility] [address] [place] [address]- XO Business (1) Medications What How Much [...] Unit(s) SubCutaneous Two Times A Day 07/28 9p lisinopril (lisinopril 20 mg oral tablet) 1 Tablet(s) Oral At Bedtime Duration: 30 Day(s) Printed Prescription 07/28 9p metoprolol (Metoprolol Tartrate 25 mg oral tablet) 0.5 Tablet(s) Oral Two Times A Day Printed Prescription 07/28 9 oxyCODONE (oxyCODONE 10 mg oral tablet) 1 Tablet(s) Oral Every 6 Hours as needed for Pain (Moderate 4-6) Printed Prescription 07/28 1201 cholecalciferol (Vitamin D3) 50,000 International Units Oral See Comment friday and friday DULoxetine (Cymbalta 60 mg oral delayed release capsule) 1 Capsule(s) Oral At Bedtime (do not crush or chew) 07/28 fluticasone nasal (Flonase 0.05 mg/ inh nasal spray) 2 [place](s) Nasal Every Day 07/29 9a fluticasone-salmeterol (Advair Diskus 250 mcg-50 mcg inhalation powder) 1 Puff(s) Inhalation Every Day as needed for as needed As Needed loratadine (loratadine 10 mg oral tablet) 1 Tablet(s) Oral At Bedtime 07/28 multivitamin with minerals (Centrum) 1 Tablet(s) Oral Every Day 07/29 9a rabeprazole (Aciphex) 20 Milligram(s) Oral Two Times A Day 07/28 Take your medications faithfully. Do NOT skip [...] these instructions at home: Medicines ??? Take fgpg-yhx-rxgytoi and prescription medicines only as told by [...] and water are not available, use hand shake sawyer. ? Change your dressing as told by [...] 01/07/2012 Document Revised: 02/27/2017 Document Reviewed: 03/06/2016 Cam[employer] Interactive Patient Education ?? 2019 [employer]. Microdiskectomy Microdiskectomy is a procedure to [...] including vitamins, herbs, eye drops, creams, and huzs-aqg-xmekcfv medicines. ??? Any problems you or family [...] 09/10/2010 Document Revised: 02/27/2017 Document Reviewed: 03/06/2016 [employer] Interactive Patient Education ?? 2019 [employer]. gabapentin (GA ba PEN tin) Gralise, Horizant, [...] are a day sleeper or work a safety administrator. Some people have thoughts about suicide while [...] may report side effects to FDA at 4-821-BQZ-5712. What other drugs will affect gabapentin? Taking gabapentin with other drugs that make you sleepy can worsen this effect. Ask your doctor before taking a sleeping pill, narcotic medication, muscle relaxer, or medicine for anxiety, depression, or seizures. Other drugs may interact with gabapentin, including prescription and shmo-yqy-cfpunob medicines, vitamins, and herbal products. Tell your [...] to ensure that the information provided by [employer]. ('Multum') is accurate, up-to-date, and complete, but no guarantee is made to that effect. Drug information contained herein may be time sensitive. Vitrue information has been compiled for use by healthcare practitioners and consumers in the [place] and therefore Vitrue does not warrant that uses outside of the [place] are appropriate, unless specifically indicated otherwise. Bean[employer] drug information does not endorse drugs, diagnose patients or recommend therapy. [employer] drug information is an informational resource designed [...] effective or appropriate for any given patient. [employer] does not assume any responsibility for any aspect of healthcare administered with the aid of information Vitrue provides. The information contained herein is not intended to cover all possible uses, directions, precautions, warnings, drug interactions, allergic reactions, or adverse effects. If you have questions about the drugs you are taking, check with your doctor, nurse or pharmacist. Copyright 6397-8735 [employer]. Version: 14.. Revision Date: 07/15/2017. oxycodone (ox [...] The extended-release form of oxycodone is for nglofq-uwt-jhjua treatment of pain and should not be [...] against the law. Stop taking all other azeuzp-vcm-crwok narcotic pain medicines when you start taking [...] may report side effects to FDA at 9-857-XPV-9327. What other drugs will affect oxycodone? You [...] may affect oxycodone. This includes prescription and qeqc-kpq-ybigdst medicines, vitamins, and herbal products. Not all [...] to ensure that the information provided by [employer]. ('Multum') is accurate, up-to-date, and complete, but no guarantee is made to that effect. Drug information contained herein may be time sensitive. Vitrue information has been compiled for use by healthcare practitioners and consumers in the [place] and therefore Vitrue does not warrant that uses outside of the [place] are appropriate, unless specifically indicated otherwise. Beanups drug information does not endorse drugs, diagnose patients or recommend therapy. [employer] drug information is an informational resource designed [...] effective or appropriate for any given patient. [employer] does not assume any responsibility for any aspect of healthcare administered with the aid of information Vitrue provides. The information contained herein is not intended to cover all possible uses, directions, precautions, warnings, drug interactions, allergic reactions, or adverse effects. If you have questions about the drugs you are taking, check with your doctor, nurse or pharmacist. Copyright 8752-6632 [employer]. Version: 13.02. Revision Date: 09/02/2018. quetiapine (rah east) SEROjd, SERLuis Fernando XR What is the most important information [...] may report side effects to FDA at 4-975-XZD-8957. What other drugs will affect quetiapine? Sometimes [...] can affect quetiapine. This includes prescription and uxly-vda-lbpmgdo medicines, vitamins, and herbal products. Not all [...] to ensure that the information provided by [employer]. ('Multum') is accurate, up-to-date, and complete, but no guarantee is made to that effect. Drug information contained herein may be time sensitive. Vitrue information has been compiled for use by healthcare practitioners and consumers in the [place] and therefore [employer] does not warrant that uses outside of the [place] are appropriate, unless specifically indicated otherwise. Beanups drug information does not endorse drugs, diagnose patients or recommend therapy. [employer] drug information is an informational resource designed [...] effective or appropriate for any given patient. [employer] does not assume any responsibility for any aspect of healthcare administered with the aid of information Vitrue provides. The information contained herein is not intended to cover all possible uses, directions, precautions, warnings, drug interactions, allergic reactions, or adverse effects. If you have questions about the drugs you are taking, check with your doctor, nurse or pharmacist. Copyright 7442-7425 [employer]. Version: 15.. Revision Date: 12/01/2018. lidocaine topical (LYE stoner casas TOP i hal) AneCream, Bactine, Glydo, LidaMantle, Lidoderm, LidoRx, Medi-Quik Charleston, RadiaGuard, Regenecare CORDOVA [place], Solarcaine Aloe Extra Burn Relief What is [...] may report side effects to FDA at 5-764-LSF-3691. What other drugs will affect lidocaine topical? Medicine used on the skin is not likely to be affected by other drugs you use. But many drugs can interact with each other. Tell each of your health care providers about all medicines you use, including prescription and kima-zdz-bsntqrp medicines, vitamins, and herbal products. Where can I get more information? Your pharmacist has information about lidocaine topical. Remember, keep this and all other medicines out of the reach of children, never share your medicines with others, and use this medication only for the indication prescribed. Every effort has been made to ensure that the information provided by [employer]. ('Multum') is accurate, up-to-date, and complete, but no guarantee is made to that effect. Drug information contained herein may be time sensitive. Vitrue information has been compiled for use by healthcare practitioners and consumers in the [place] and therefore [employer] does not warrant that uses outside of the [place] are appropriate, unless specifically indicated otherwise. Beanups drug information does not endorse drugs, diagnose patients or recommend therapy. [employer]ups drug information is an informational resource designed [...] effective or appropriate for any given patient. [employer] does not assume any responsibility for any aspect of healthcare administered with the aid of information Vitrue provides. The information contained herein is not intended to cover all possible uses, directions, precautions, warnings, drug interactions, allergic reactions, or adverse effects. If you have questions about the drugs you are taking, check with your doctor, nurse or pharmacist. Copyright 1249-4826 [employer]. Version: 7.02. Revision Date: 08/07/2018. divalproex sodium (dye maya PRO ex) Depakote ER, Depakote Margarita What is the most important information [...] cycle disorder; or ?? a genetic mitochondrial (NEX-uxj-MHI-dree-al) disorder such as Alpers' disease or Alpers-Huttenlocher [...] may report side effects to FDA at 8-282-FES-6969. What other drugs will affect divalproex sodium? Sometimes it is not safe to use certain medications at the same time. Some drugs can affect your blood levels of other drugs you take, which may increase side effects or make the medications less effective. Many drugs can affect divalproex sodium. This includes prescription and dpqk-vfv-wvzuvrx medicines, vitamins, and herbal products. Not all [...] to ensure that the information provided by [employer]. ('Multum') is accurate, up-to-date, and complete, but no guarantee is made to that effect. Drug information contained herein may be time sensitive. Vitrue information has been compiled for use by healthcare practitioners and consumers in the [place] and therefore Vitrue does not warrant that uses outside of the [place] are appropriate, unless specifically indicated otherwise. Vitrue's drug information does not endorse drugs, diagnose patients or recommend therapy. Beanups drug information is an informational resource designed [...] effective or appropriate for any given patient. Vit[employer] does not assume any responsibility for any aspect of healthcare administered with the aid of information Vitrue provides. The information contained herein is not intended to cover all possible uses, directions, precautions, warnings, drug interactions, allergic reactions, or adverse effects. If you have questions about the drugs you are taking, check with your doctor, nurse or pharmacist. Copyright 5089-8345 [employer]. Version: 13.01. Revision Date: 03/03/2018. metoprolol (oral/injection) [...] circulation (blood flow through arteries and veins). documented in this encounter Plan of Treatment Not on file documented as of this encounter Visit Diagnoses Not on filedocumented in this encounter
--- OUTSIDE RECORDS SUMMARY | 2025-09-06 08:12 | XMS_ITS | Encounter Summary ---
Author Organization [employer] ([place], [place], [place], [place], [place]) Address [address] [place] [address] Care Team Providers Care Mold Making Supervisor Name Role Phone Unavailable Primary Care Provider Unavailabl e Encounter Details Date Type Department Care Team (Late st Contact Info) Description 07/27/2019 Transcribed Document [facility] [place] Family Medicine [address] [place] [address] ProviderChano MD [address] [place] [id number] Social History Tobacco Use Types Packs/Day Years Used Date Smoking Tobacco: Never Assessed Comments Unknown Sex and Gender Information Value Date Recorded Sex Assigned at Not on file Legal Sex Female 2:07 PM CDT Gender Identity Not on file Sexual Orientation Not on file documented as of this encounter Miscellaneous Notes * Cerner Conversion Note - Historical ProviderMD - 07/27/2019 2:00 AM CDT Supervisor Roller Shop Details Entered On: 07/27/2019 0:37 EDT Performed [...]
--- OUTSIDE RECORDS SUMMARY | 2025-09-06 08:12 | XMS_ITS | Encounter Summary ---
Author Organization [employer] ([place], [place], [place], [place], [place]) Address [address] [place] [address] Care Team Providers Care Glue Clamp Operator Name Role Phone Unavailable Primary Care Provider Unavailabl e Encounter Details Date Type Department Care Team (Late st Contact Info) Description 10/05/2019 Transcribed Document [facility] [place] Family Medicine [address] [place] [address] ProviderChano MD [facility] [place] [id number] Social History Tobacco Use Types Packs/Day Years Used Date Smoking Tobacco: Never Assessed Comments Unknown Sex and Gender Information Value Date Recorded Sex Assigned at Not on file Legal Sex Female 2:07 PM CDT Gender Identity Not on file Sexual Orientation Not on file documented as of this encounter Miscellaneous Notes * Cerner Conversion Note - Historical ProviderMD - 10/05/2019 11:30 PM UPHOLSTERY CUTTER ED Discharge Entered On: 10/05/2019 23:47 EST Performed On: 10/05/2019 23:30 EST by KYA RODRIGES ceo [place] Process Patient Disposition : Discharge Personal Belongings [...] 10/05/2019 23:46 EST Electronically signed by Summer [facility] Conversion Shoe Salesperson Cerner at 01/23/2023 1:27 PM CDT documented in this encounter Plan of Treatment Not on file documented as of this encounter Visit Diagnoses Not on filedocumented in this encounter
--- OUTSIDE RECORDS SUMMARY | 2025-09-06 08:12 | XMS_ITS | Encounter Summary ---
Author Organization [employer] ([place], [place], [place], [place], [place]) Address [address] [place] [address] Care Team Providers Care Range Rider Name Role Phone Unavailable Primary Care Provider Unavailabl e Encounter Details Date Type Department Care Team (Late st Contact Info) Description 07/28/2019 Transcribed Document [facility] [place] Family Medicine [address] [place] [address] Chano Gatica MD [address] [id number] Social History Tobacco Use Types Packs/Day Years [...] these instructions at home: Medicines ??? Take dokn-nll-warxbdf and prescription medicines only as told by [...] and water are not available, use hand job setter honing. ? Change your dressing as told by [...] 01/07/2012 Document Revised: 02/27/2017 Document Reviewed: 03/06/2016 Inf[employer]u Interactive Patient Education ? 2019 [employer] Inc. Microdiskectomy Microdiskectomy is a procedure to [...] including vitamins, herbs, eye drops, creams, and drgk-jzu-jgumyxf medicines. ??? Any problems you or family [...] 03/06/2016 Elsevier Interactive Patient Education ? 2019 [employer] Inc. documented in this encounter Plan of Treatment Not on file documented as of this encounter Visit Diagnoses Not on filedocumented in this encounter
--- OUTSIDE RECORDS SUMMARY | 2025-09-06 08:12 | XMS_ITS | Encounter Summary ---
Author Organization [email or web address] ([place], [place], [place], [place], [place]) Address [address] [place] [address] Care Team Providers Care Supervisor Costuming Name Role Phone Unavailable Primary Care Provider Unavailabl e Encounter Details Date Type Department Care Team (Late st Contact Info) Description 07/11/2019 Transcribed Document [facility] [place] [address] [place] [address] ProviderChano MD [address] [place] [phone] Social History Tobacco Use Types Packs/Day Years [...]
--- OUTSIDE RECORDS SUMMARY | 2025-09-06 08:12 | XMS_ITS | Encounter Summary ---
Author Organization [employer] ([place], [place], [place], [place], [place]) Address [address] [place] [address] Care Team Providers Care Fruit Harvest Worker Name Role Phone Unavailable Primary Care Provider Unavailabl e Encounter Details Date Type Department Care Team (Late st Contact Info) Description 10/05/2019 Transcribed Document [facility] [place] [facility] [place] [address] ProviderChano MD [facility] [place] [phone] Social History Tobacco Use Types Packs/Day Years Used Date Smoking Tobacco: Never Assessed Comments Unknown Sex and Gender Information Value Date Recorded Sex Assigned at Not on file Legal Sex Female 2:07 PM CDT Gender Identity Not on file Sexual Orientation Not on file documented as of this encounter Miscellaneous Notes * Cerner Conversion Note - Historical ProviderMD - 10/05/2019 6:38 PM CARDIOLOGY CLINICAL CONSULTANT Patient: LUDY ANTONIO Age: 69 years Sex: [...] c/o chest pain and soa. seen at [facility] yesterday for the same s/sx. reports that [...] shortness of breath and was taken to [facility]. Labs and x-rays were done and reported as normal. Patient has been complaining of abdominal pain and has been followed by Dr. Porter. She has a CT scheduled for Friday. The patient is very anxious and restless. Medical records from [place] obtained and noted. Review of Systems Constitutional [...] chew) Flonase 0.05 mg/inh nasal spray: 2 [place], Nasal, Daily, 16 Gram, 0 Refill(s) Lantus [...] and left shoulder repair. achilles repair. Appendectomy ([id number]). Cholecystectomy ([id number]). Tonsillectomy ([id number])., Reviewed as documented in chart. Family history: No family history items have been selected or recorded., Reviewed as documented in chart. 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 Home/Environment 07/17/2014 Lives with: Spouse Living situation: [...] EST Height Source Stated Height Entry Format [place] Height/Length, HONDURAN (ft) 5 ft Height/Length HONDURAN 7 Inch CLINICALHEIGHT 170.18 cm [place] Body Weight 61.16 kg Weight Source, ED Critical estimated dosing weight Weight Entry Format [place] Weight Ghanaian lb 250 lb CLINICALWEIGHT 113.64 kg Body [...] Adult Fall Risk Assessment: ED C-SSRS: ED shift leader: EKG: Normal Saline Bolus: 500 mL, 500 [...] x 4 Affect/Behavior Anxious Cardiovascular Assessment WDL WDL with exceptions Cardiovascular Symptoms Chest discomfort at rest Nail Bed Color [place] Respiratory Assessment WDL WDL Respiratory Pattern Description Regular Cough None All Lobes Breath Sounds Clear Gastrointestinal Assessment WDL WDL Genitourinary Assessment WDL WDL with exceptions Genitourinary Symptoms Burning with urination Musculoskeletal Assessment WDL WDL Integumentary Assessment WDL WDL Skin Temperature Warm Skin Temperature Warm ABCs Fall Injury Risk Identification None JAMA Hx Falls Immediate/Within 3 Months No Jama Secondary Diagnosis Yes JAMA Ambulatory Aid Crutches/Cane/Walker Jama IV Therapy or IV Access Yes Jama Gait/Transferring Weak JAMA Mental Status Overestimates/Forgets limitations Jama Fall Risk Score 75 Jama Fall Scale Risk Level 46 or > High Risk Wainwright Fall Interventions Adequate lighting, Assistive devices within [...] Tibial Pulse, Right 2+ normal Primary Language Ghanaian Information Obtained From Patient, Significant other Smoking [...] Color Yellow Urine Appearance Clear Urine Specific [place] 1.021 Urine pH Dipstick 8.0 Urine Leukocyte [...] % 27.3 % Lymph # 2.38 x10(3)/uL Villalba % 6.1 % Villalba # 0.53 K/uL Eos % 0.9 % [...] EST Height Source Stated Height Entry Format [place] Height/Length, HONDURAN (ft) 5 ft Height/Length HONDURAN 7 Inch CLINICALHEIGHT 170.18 cm [place] Body Weight 61.16 kg Weight Source, ED Critical estimated dosing weight Weight Entry Format [place] Weight Ghanaian lb 250 lb CLINICALWEIGHT 113.64 kg Body Surface Area (BSA) 2.23 m2 Body Mass Index 39.2 kg/m2 HI Tuberculosis Symptoms None Infectious Disease History Chicken pox/Shingles, Measles, Mumps Fever/Chills Last 48 Hours No Travel To Regions with Travel Advisories No Travel Outside [place] Within Last 30 Days No Contact With Traveler to [facility] No Chief Complaint pt arrives very anxious, c/o chest pain and soa. seen at [facility] yesterday for the same s/sx. reports that pt is not allergic to aspirin it just hurts her stomach Transported to ED by Ambulance/[facility] To Room Via Stretcher Tracking Acuity 3 - Urgent Geological Engineering Teacher Needed No Accompanied by Significant other Mode of Arrival Stretcher Treatments Prior to Arrival Other: 18 G right wrist, aspirin 81mg then pt reports, I am allergic . Tetanus Immunization Less than 5 years 10/05/2019 18:04 EST Nurse Collect Order Detail 3.00 Nurse Collect Order Detail 3.00 . Radiology results: Radiology Results (Last 48 hours) [id number] -- 10/05/2019 18:04 CR Chest 2 Vws [...] , Patient care transitioned to: Time: 10/05/2019 20:48:00, ISIS NOBLES PA. Patient was given the following educational [...] instructions. Notes: I certify that the Physician Plate Drying Machine Tender performed the services as delegated. I agree with the assessment, treatment plan and disposition of the patient as recorded by the Physician Plate Drying Machine Tender, Dr. Perales. Electronically signed by Julian Wheeler Conversion Sustainable Landscape Architect Januaryner at 01/23/2023 1:25 PM CDT documented in this encounter Plan of Treatment Not on file documented as of this encounter Visit Diagnoses Not on filedocumented in this encounter
--- OUTSIDE RECORDS SUMMARY | 2025-09-06 08:12 | XMS_ITS | Encounter Summary ---
Author Organization [employer] ([place], [place], [place], [place], [place]) Address [address] [place] [address] Care Team Providers Care Pricing Associate Name Role Phone Unavailable Primary Care Provider Unavailabl e Encounter Details Date Type Department Care Team (Late st Contact Info) Description 07/28/2019 Transcribed Document [facility] Radiology [address] [place] [address] Abby Reid MD [address] [place] [address] [place] [id number] Social History Tobacco Use Types Packs/Day Years [...] MD - 07/28/2019 10:39 AM EDT Patient: LDUY ANTONIO Age: 68 years Sex: Female : [...] is aware to take patient to the [facility] emergency room right away If she develops [...] Bedtime Flonase 0.05 mg/inh nasal spray 2 [place], Nasal, Daily gabapentin 300 mg oral capsule [...] chew) Flonase 0.05 mg/inh nasal spray: 2 [place], Nasal, Daily, 16 Gram, 0 Refill(s) Lantus [...] Bedtime Flonase 0.05 mg/inh nasal spray 2 [place], Nasal, Daily gabapentin 300 mg oral capsule [...] Problem list: Medical Pain//chronic / SNOMED CT 963978150 / Confirmed At risk for sleep apnea / IMO 24310514 / Confirmed Back pain / SNOMED CT 7963126285 / Confirmed Cataract///beginning stage / SNOMED CT 197776694 / Confirmed Chest pain///cath negative / SNOMED CT 13187577 / Confirmed Completely occulded L carotid / SNOMED CT 8646411515 / Confirmed Lumbar disc disease / SNOMED CT 5904166162 / Confirmed Fibromyalgia / SNOMED CT 002761081 / Confirmed Hiatal hernia / SNOMED CT 052993243 / Complaint of H/O ischemic left MCA stroke / SNOMED CT 3456091950 / Confirmed Memory deficit///slow recall / SNOMED CT 8654009492 / Confirmed Numbness and tingling//right leg / SNOMED CT 5752151270 / Confirmed Obesity / SNOMED CT 4916347955 / Confirmed Right leg pain / SNOMED CT 6572424160 / Confirmed Colon polyps / SNOMED CT 659645565 / Confirmed Sleep apnea///risk / SNOMED CT 468878350 / Confirmed Wears glasses / SNOMED CT 065380328 / Confirmed, Active Problems (24) Acid reflux [...] (OCT 16) 143 (OCT 13) K 4.9 (OCT 22) 4.2 (OCT 17) 3.7 (OCT 16) 4.1 (OCT 13) Cl 105 (JUL 22) 107 (OCT 17) 107 (OCT 16) 106 (OCT 13) CO2 26 (OCT 22) 24 (OCT 17) 29 (OCT 16) 30 (OCT 13) BUN H 29 (JUL 22) H 24 (OCT 17) H 27 (OCT 16) H 23 (OCT 13) Cr H 1.20 (JUL 22) H 1.06 (JUL 17) 1.00 (JUL 16) 1.00 (JUL 13) Glu R H 207 (OCT 22) H 172 (OCT 17) H 134 [...]
--- OUTSIDE RECORDS SUMMARY | 2025-09-06 08:12 | XMS_ITS | Encounter Summary ---
Author Organization [employer] ([place], [place], [place], [place], [place]) Address [address] [place] [address] Care Team Providers Care Car Designer Name Role Phone Unavailable Primary Care Provider Unavailabl e Encounter Details Date Type Department Care Team (Late st Contact Info) Description 07/09/2019 Transcribed Document [facility] Family Medicine [address] [place] [address] ProviderChano MD [address], [place] [id number] Social History Tobacco Use Types Packs/Day Years [...] Source : Stated Height Entry Format : Wallace Height, Feet : 5 ft(Converted to: 152 cm, 60 Inch) Height, Inches : 4 Inch(Converted to: 0 ft 4 Inch, 10.16 cm) Clinical Height : 162.56 cm Weight Source : Standing scale Weight Entry Format : Wallace Clinical Dosing Weight : 113.64 kg Weight, Pounds : 250 lb Body Surface Area (BSA) : 2.15 m2 Body Mass Index : 43 kg/m2 (>HHI) [place] Body Weight : 54 kg Miriam Boudreaux [...] TRINIDAD, ED Nurse) Employment/School: Retired, Previous employment/school: [employer]. (Last Updated: 07/17/2014 00:15:13 EDT by KATIE [...] adult Legal Guardian : No Support Person/Patient Studio Operations Manager : No Support Person/Pt Rep Name : kian Savage - spouse Alma Rosa Zepeda [phone] Support Person/Pt Rep Contact Information : [phone] Want Family/Rep/Phys Notified of Admit : No [...] Obtained From : Patient Primary Language : Pakistani Preferred Communication Mode : Verbal Communication Barrier [...]
--- OUTSIDE RECORDS SUMMARY | 2025-09-06 08:12 | XMS_ITS | Encounter Summary ---
Author Organization [employer] ([place], [place], [place], [place], [place]) Address [address] [place] [address] Care Team Providers Care Biztalk Software Developer Name Role Phone Unavailable Primary Care Provider Unavailabl e Encounter Details Date Type Department Care Team (Late st Contact Info) Description 07/11/2019 Transcribed Document [facility] [place] [address] [place] [address] ProviderChano MD [address] [place], [place] [id number] Social History Tobacco Use Types Packs/Day Years [...] MARGE GRIFFIN, RN - 07/11/2019 16:04 EDT Electronically signed by Summer [facility] Conversion Drafter Directional Survey Cerner at 01/23/2023 1:16 PM CDT documented in this encounter Plan of Treatment Not on file documented as of this encounter Visit Diagnoses Not on filedocumented in this encounter
--- OUTSIDE RECORDS SUMMARY | 2025-09-06 08:12 | XMS_ITS | Encounter Summary ---
Author Organization [employer] ([place], [place], [place], [place], [place]) Address [address] [place] [address] Care Team Providers Care Loader Operator Name Role Phone Unavailable Primary Care Provider Unavailabl e Encounter Details Date Type Department Care Team (Late st Contact Info) Description 07/27/2019 Transcribed Document [facility] Medicine [facility] [place] [address] ProviderChano MD [address] [place], [place] [id number] Social History Tobacco Use Types Packs/Day Years [...] On: 07/27/2019 13:41 EDT by EVI LORENZO, SHOP TAILOR II-TRIAGE Behavioral Health Assessment Note Reason For Behavioral Health Assessment : PT IS A 68 YO FEMALE WHO IS RECOVERING FROM BACK SURGERY AT [facility]. PT WAS GIVEN A FOLLOW-UP NEEDS ASSESSMENT. PT WAS MILDLY CONFUSED AND ORIENTED X3 (NOT TIME). PT REPORTED NO SI, HI, OR PSYCHOTIC SX. PT DID PRESENT WITH MILD INATTENTION. PT WAS STAFFED WITH DR LANDRY WHO RECOMMENDED GERIATRIC PSYCH INPATIENT. -- EVI LORENZO [facility], SHOP TAILOR II, CARMELO-MARINA, 1343, 07/27/19. Are You Currently [...] : Other: INPATIENT GERIATRIC PSYCH EVI LORENZO, SHOP TAILOR II-TRIAGE - 07/27/2019 13:41 EDT Social History [...] TRINIDAD, ED Nurse) Employment/School: Retired, Previous employment/school: [employer]. (Last Updated: 07/17/2014 00:15:13 EDT by KATIE TRINIDAD, ED Nurse) documented in this encounter Plan of Treatment Not on file documented as of this encounter Visit Diagnoses Not on filedocumented in this encounter
--- OUTSIDE RECORDS SUMMARY | 2025-09-06 08:12 | XMS_ITS | Encounter Summary ---
Author Organization [employer] ([place], [place], [place], [place], [place]) Address [address] [place] [address] Care Team Providers Care History Teacher Name Role Phone Unavailable Primary Care Provider Unavailabl e Encounter Details Date Type Department Care Team (Late st Contact Info) Description 07/26/2019 Transcribed Document [facility] Radiology 1 [place] [address] Abby Reid MD [address] [place] [address] [place] [id number] Social History Tobacco Use Types Packs/Day Years [...] chew) Flonase 0.05 mg/inh nasal spray: 2 [place], Nasal, Daily, 16 Gram, 0 Refill(s) Lantus [...] Bedtime Flonase 0.05 mg/inh nasal spray 2 [place], Nasal, Daily gabapentin 300 mg oral capsule [...] Problem list: Medical Pain//chronic / SNOMED CT 999112213 / Confirmed At risk for sleep apnea / IMO 78597337 / Confirmed Back pain / SNOMED CT 5129980835 / Confirmed Cataract///beginning stage / SNOMED CT 094208873 / Confirmed Chest pain///cath negative / SNOMED CT 56547406 / Confirmed Completely occulded L carotid / SNOMED CT 4171266883 / Confirmed Lumbar disc disease / SNOMED CT 4047666847 / Confirmed Fibromyalgia / SNOMED CT 594941875 / Confirmed Hiatal hernia / SNOMED CT 444327645 / Complaint of H/O ischemic left MCA stroke / SNOMED CT 2642670569 / Confirmed Memory deficit///slow recall / SNOMED CT 8252671114 / Confirmed Numbness and tingling//right leg / SNOMED CT 6426384767 / Confirmed Obesity / SNOMED CT 6360167432 / Confirmed Right leg pain / SNOMED CT 5650531750 / Confirmed Colon polyps / SNOMED CT 832264258 / Confirmed Sleep apnea///risk / SNOMED CT 055167378 / Confirmed Wears glasses / SNOMED CT 567158462 / Confirmed, Active Problems (24) Acid reflux [...] (JUL 26 02:15) MAP 71 (JUL 26 06:) 69 (JUL 25 22:29) 93 (JUL 26 [...] 07) Cr H 1.06 (JUL 17) 1.00 (OCT 16) 1.00 (OCT 13) [...]
--- OUTSIDE RECORDS SUMMARY | 2025-09-06 08:12 | XMS_ITS | Encounter Summary ---
Author Organization [employer] ([place], [place], [place], [place], [place]) Address [address] [place] [address] Care Team Providers Care Education Research Analyst Name Role Phone Unavailable Primary Care Provider Unavailabl e Encounter Details Date Type Department Care Team (Late st Contact Info) Description 07/11/2019 Transcribed Document [facility] Family Medicine [address] [place] [address] ProviderChano MD [address], [place] [phone] Social History Tobacco Use Types Packs/Day Years [...] Plan: [employer] G[employer]US HMO Policy Number: [id number] Authorization Number: [id number] Insurance Primary Name : [employer] [id number] Authorization Status-Primary : Awaiting callback Authorization Fax Number-Primary : [phone] Auth/Referral Phone Number-Primary : [phone] x [phone] Auth/Referral Contact Name-Primary : Saulo Hanks Reference Number-Primary : [id number] Authorized Service Begin Date-Primary : 07/08/2019 EDT Observation Authorization Nbr-Primary : [id number] Authorization Comments-Primary : pending ref# per [facility]. clinical faxed per seraner for ip auth Historical Authorization Comments-Primary : Comment 1: per IPAS patient meets ip criteria. obtained ip order submitted on [facility] for ip auth (Mary Jackson, Rn-Utilization Review 07/11/2019 09:43) Comment 2: submitted for and obtained opo approval from [facility] opo auth# [id number] (ROSEY SANTILLAN, Water Jet Loom Fixer 07/09/2019 12:59) Mary Jackson Rn-Utilization Review - 07/11/2019 9:56 EDT documented in this encounter Plan of Treatment Not on file documented as of this encounter Visit Diagnoses Not on filedocumented in this encounter
--- OUTSIDE RECORDS SUMMARY | 2025-09-06 08:12 | XMS_ITS | Encounter Summary ---
Author Organization [employer] ([place], [place], [place], [place], [place]) Address [address] [place] [address] Care Team Providers Care Supervisor Inventory Merchandising Name Role Phone Unavailable Primary Care Provider Unavailabl e Encounter Details Date Type Department Care Team (Late st Contact Info) Description 07/09/2019 Transcribed Document [facility] [place] Medicine [facility] [place] [address] ProviderChano MD [facility] [place] [id number] Social History Tobacco Use Types Packs/Day Years [...] chew) Flonase 0.05 mg/inh nasal spray: 2 [place], Nasal, Daily, 16 Gram, 0 Refill(s) [...] Bedtime Flonase 0.05 mg/inh nasal spray 2 [place], Nasal, Daily Lantus 60 Units, SubCutaneous, [...] list: Medical Wears glasses / SNOMED CT 014245408 / Confirmed Sleep apnea///risk / SNOMED CT 203626410 / Confirmed Colon polyps / SNOMED CT 069279521 / Confirmed Right leg pain / SNOMED CT 4959078052 / Confirmed Obesity / SNOMED CT 9752563046 / Confirmed Numbness and tingling//right leg / SNOMED CT 3669426977 / Confirmed Memory deficit///slow recall / SNOMED CT 0777729775 / Confirmed H/O ischemic left MCA stroke / SNOMED CT 1977288304 / Confirmed Hiatal hernia / SNOMED CT 015137552 / Complaint of Fibromyalgia / SNOMED CT 088063899 / Confirmed Lumbar disc disease / SNOMED CT 0507960587 / Confirmed Completely occulded L carotid / SNOMED CT 3149086560 / Confirmed Chest pain///cath negative / SNOMED CT 00574625 / Confirmed Cataract///beginning stage / SNOMED CT 176802778 / Confirmed Back pain / SNOMED CT 3514126270 / Confirmed At risk for sleep apnea / IMO 02510386 / Confirmed Pain//chronic / SNOMED CT 600662511 / Confirmed, Active Problems (24) Acid reflux [...] (JUL 08) Radiology Results (Last 48 hours) [id number] -- 07/08/2019 21:23 CT Spine Lumbar WO [...]
--- OUTSIDE RECORDS SUMMARY | 2025-09-06 08:12 | XMS_ITS | Encounter Summary ---
Author Organization [employer] ([place], [place], [place], [place], [place]) Address [address] [place] [address] Care Team Providers Care Aircraft Parts Assembler Name Role Phone Unavailable Primary Care Provider Unavailabl e Encounter Details Date Type Department Care Team (Late st Contact Info) Description 07/11/2019 Transcribed Document [facility] Family Medicine [address] [place] [address] ProviderChano MD [address] [place], [place] [phone] Social History Tobacco Use Types Packs/Day Years [...] Consult, Additional Information : Cpnsult called to Miah--SUMANTH billing control clerk and he will call to MARGE Khan, RN - 07/11/2019 15:32 EDT documented in this encounter Plan of Treatment Not on file documented as of this encounter Visit Diagnoses Not on filedocumented in this encounter
--- OUTSIDE RECORDS SUMMARY | 2025-09-06 08:12 | XMS_ITS | Encounter Summary ---
Author Organization [employer] ([place], [place], [place], [place], [place]) Address [address] [place] [address] Care Team Providers Care Ceramic Plater Name Role Phone Unavailable Primary Care Provider Unavailabl e Encounter Details Date Type Department Care Team (Late st Contact Info) Description 07/12/2019 Transcribed Document [facility] [place] [address] [place] [address] ProviderChano MD [address] [place], [place] [id number] Social History Tobacco Use Types Packs/Day Years [...] MARGE GRIFFIN, RN - 07/12/2019 17:43 EDT Electronically signed by Summer [facility] Conversion Bomb Squad Officer Cerner at 01/23/2023 1:21 PM CDT documented in this encounter Plan of Treatment Not on file documented as of this encounter Visit Diagnoses Not on filedocumented in this encounter
--- OUTSIDE RECORDS SUMMARY | 2025-09-06 08:12 | XMS_ITS | Encounter Summary ---
Author Organization [employer] ([place], [place], [place], [place], [place]) Address [address] [place] [address] Care Team Providers Care Multigrapher Name Role Phone Unavailable Primary Care Provider Unavailabl e Encounter Details Date Type Department Care Team (Late st Contact Info) Description 07/11/2019 Transcribed Document [facility] Family Medicine [address] [place] [address] ProviderChano MD [address] [place], [place] [phone] Social History Tobacco Use Types Packs/Day Years [...] On: 07/11/2019 16:13 EDT by SANJIV VOGT RN-Pipe Out WorkerFinancial Data Analyst Progress Note Discharge Arrangements : Patient Post-Acute Information Patient Name: LUDY ANTONIO Gender: Female : [birth year] Age: 68 Years No Post-Acute Placement(s) Listed No Post-Acute Service(s) Listed No Curaspan Referral(s) Listed SANJIV VOGT RN-Pipe Out Worker - 07/11/2019 16:13 EDT Narrative Progress Note Narrative Progress Note : psych consult referral faxed to Dr. Valdez's office to assess for psychosis. SANJIV VOGT, RN-Pipe Out Worker - 07/11/2019 16:13 EDT documented in this encounter Plan of Treatment Not on file documented as of this encounter Visit Diagnoses Not on filedocumented in this encounter
--- OUTSIDE RECORDS SUMMARY | 2025-09-06 08:12 | XMS_ITS | Encounter Summary ---
Author Organization [employer] ([place], [place], [place], [place], [place]) Address [address] [place] [address] Care Team Providers Care District Sales Leader Name Role Phone Unavailable Primary Care Provider Unavailabl e Encounter Details Date Type Department Care Team (Late st Contact Info) Description 07/11/2019 Transcribed Document [facility] [place] [address] [place] [address] ProviderChano MD [address] [place], [place] [phone] Social History Tobacco Use Types Packs/Day Years Used Date Smoking Tobacco: Never Assessed Comments Unknown Sex and Gender Information Value Date Recorded Sex Assigned at Not on file Legal Sex Female 2:07 PM CDT Gender Identity Not on file Sexual Orientation Not on file documented as of this encounter Miscellaneous Notes * Cerner Conversion Note - Historical ProviderMD - 07/11/2019 1:30 PM CDT Spiritual Care Assessment Entered On: 07/11/2019 14:53 EDT Performed On: 07/11/2019 13:30 EDT by CAMPBELL GUERRERO Chaplain-Non Cert General Information Initial Visit : Yes Referred by : Nurse Referral Reason Comment : RN reqested support per family needs. Ministry Provided to : Patient, Family/Significant other Caodaism Preference : [employer] CAMPBELL GUERRERO Chaplain-Non Cert - 07/11/2019 14:33 EDT Spiritual Assessment Spiritual Assessment Comment/Summary Points : wanted to know about POA for pt. Cp talked about POAs, HCS, LW. was concerned for pt since having strokes several years ago and becoming less able to make decisions. Ultimatily realized that he needed to go to a sex offender treatment professional. Cp encouraged and dtr processing of health challenges with pt. 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 Family desired prayer. Group [...] Family/Significant other supported, Feelings expressed Spiritual and Caodaism : Prayer shared CAMPBELL GUERRERO Chaplain-Non Cert - 07/11/2019 14:33 EDT Outcomes Spiritual Care Outcomes Comment : Pt/family very appreciative for s.c. Cp offered prn support. CAMPBELL GUERRERO Chaplain-Non Cert - 07/11/2019 14:33 EDT Electronically signed by Julian Wheeler Conversion Environmental Services Manager Cerner at 01/23/2023 1:28 PM CDT documented in this encounter Plan of Treatment Not on file documented as of this encounter Visit Diagnoses Not on filedocumented in this encounter
--- OUTSIDE RECORDS SUMMARY | 2025-09-06 08:12 | XMS_ITS | Encounter Summary ---
Author Organization [employer] ([place], [place], [place], [place], [place]) Address [address] [place] [address] Care Team Providers Care Project Consultant Name Role Phone Unavailable Primary Care Provider Unavailabl e Encounter Details Date Type Department Care Team (Late st Contact Info) Description 07/27/2019 Transcribed Document [facility] Radiology [address] [place] [address] Abby Reid MD [address] [place] [address] [place] [id number] Social History Tobacco Use Types Packs/Day Years [...] is aware to take patient to the [facility] emergency room right away If she [...] Bedtime Flonase 0.05 mg/inh nasal spray 2 [place], Nasal, Daily gabapentin 300 mg oral capsule [...] chew) Flonase 0.05 mg/inh nasal spray: 2 [place], Nasal, Daily, 16 Gram, 0 Refill(s) Lantus [...] Bedtime Flonase 0.05 mg/inh nasal spray 2 [place], Nasal, Daily gabapentin 300 mg oral capsule [...] Problem list: Medical Pain//chronic / SNOMED CT 477274848 / Confirmed At risk for sleep apnea / IMO 65389879 / Confirmed Back pain / SNOMED CT 4942697597 / Confirmed Cataract///beginning stage / SNOMED CT 672550693 / Confirmed Chest pain///cath negative / SNOMED CT 82118124 / Confirmed Completely occulded L carotid / SNOMED CT 7929823577 / Confirmed Lumbar disc disease / SNOMED CT 6993994591 / Confirmed Fibromyalgia / SNOMED CT 910522888 / Confirmed Hiatal hernia / SNOMED CT 059438348 / Complaint of H/O ischemic left MCA stroke / SNOMED CT 9697473918 / Confirmed Memory deficit///slow recall / SNOMED CT 0671051969 / Confirmed Numbness and tingling//right leg / SNOMED CT 9895125524 / Confirmed Obesity / SNOMED CT 9225616481 / Confirmed Right leg pain / SNOMED CT 4188379525 / Confirmed Colon polyps / SNOMED CT 141414707 / Confirmed Sleep apnea///risk / SNOMED CT 090904093 / Confirmed Wears glasses / SNOMED CT 009392660 / Confirmed, Active Problems (24) Acid reflux [...] 11.9 (JUL 27) 11.7 (OCT 17) 11.6 (JUL 16) 11.3 (JUL 13) HCT 38.1 (JUL 27) 40.4 (OCT 17) 37.0 (OCT 16) 35.4 (OCT 13) Plt 311 (JUL 27) 241 (OCT 17) 273 (OCT 16) 277 (JUL 13) Na 138 (JUL 27) 137 (JUL 17) 141 (JUL 16) 143 (OCT 13) K 4.9 (JUL 22) 4.2 (OCT 17) 3.7 (OCT 16) 4.1 (OCT 13) Cl 105 (JUL 22) 107 (JUL 17) 107 (OCT 16) 106 (JUL 13) CO2 26 (JUL 22) 24 (JUL 17) 29 (JUL 16) 30 (JUL 13) BUN H 29 (JUL 22) H 24 (JUL 17) H 27 (OCT [...]
--- OUTSIDE RECORDS SUMMARY | 2025-09-06 08:12 | XMS_ITS | Encounter Summary ---
Author Organization [employer] ([place], [place], [place], [place], [place]) Address [address] [place] [address] Care Team Providers Care Parcel Contractor Name Role Phone Unavailable Primary Care Provider Unavailabl e Encounter Details Date Type Department Care Team (Late st Contact Info) Description 07/29/2019 Transcribed Document [facility] [place] [address] ProviderChano MD [facility] [place] [phone] Social History Tobacco Use Types Packs/Day Years [...] Met : 07/15/2019 EDT Comment : ADELE ARTEAGA, PT - 07/29/2019 7:46 EDT Fdc Goals Mobility/Bed Mobility LTG PT Grid Goal [...]
--- OUTSIDE RECORDS SUMMARY | 2025-09-06 08:12 | XMS_ITS | Encounter Summary ---
Author Organization [employer] ([place], [place], [place], [place], [place]) Address [address] [place] [address] Care Team Providers Care Courtesy Car Driver Name Role Phone Unavailable Primary Care Provider Unavailabl e Encounter Details Date Type Department Care Team (Late st Contact Info) Description 07/10/2019 Transcribed Document [place] Family Medicine [facility] [address] ProviderChano MD [address] [place] [id number] Social History Tobacco Use Types Packs/Day Years [...] epithelial cells. Urine culture was positive for [id number] CFU/mL. CT of the L-spine was negative. [...] 50 mL - 700 mg, IV Piggyback, [id number], infuse over 30 Minute(s), Routine Cardiovascular metoprolol [...] fluticasone nasal (Flonase) - 1 P[place], Nasal, [place], Daily, Routine Pain Meds morphine - 2 [...] 08) Plt 267 (JUL 09) 268 (JUL 03) Na 142 (JUL 09) 141 (JUL 03) [...] Micro: Rad: Radiology Results (Last 48 hours) [id number] -- 07/08/2019 21:23 CT Spine Lumbar WO [...] by Dr. Darvin Marcos.Transcribed by Aquiles Guaman (Nitza).I have personally viewed, interpreted and dictated the [...]
--- OUTSIDE RECORDS SUMMARY | 2025-09-06 08:12 | XMS_ITS | Encounter Summary ---
Author Organization [employer] ([place], [place], [place], [place], [place]) Address [address] [place] [address] Care Team Providers Care Airfreight Operations Agent Name Role Phone Unavailable Primary Care Provider Unavailabl e Encounter Details Date Type Department Care Team (Late st Contact Info) Description 07/10/2019 Transcribed Document [facility] Family Medicine [address] [place] [address] ProviderChano MD [address] [place], [place] [phone] Social History Tobacco Use Types Packs/Day Years [...] HR 86 (JUL 10 06:23) 66 (JUL 04 20:48) 89 (JUL 10 01:26) Periph HR 100 (JUL 09 13:15) 95 (JUL 09 13:02) 100 (JUL 09 13:15) Resp Rate 18 (JUL 10 06:23) 14 (JUL 09 16:25) H 48 (JUL 09 15:25) SBP H 163 (JUL 10 06:23) 115 (JUL 09 18:24) H 205 (JUL 09 13:15) DBP 68 (JUL 10 06:23) L 51 (JUL 04 18:24) H 93 (JUL 09 15:30) MAP [...] pain are better, will continue to follow Electronically signed by Julian Wheeler Conversion Media Center Director School Cerner at 01/23/2023 1:37 PM CDT documented in this encounter Plan of Treatment Not on file documented as of this encounter Visit Diagnoses Not on filedocumented in this encounter
--- OUTSIDE RECORDS SUMMARY | 2025-09-06 08:12 | XMS_ITS | Encounter Summary ---
Author Organization [employer] ([place], [place], [place], [place], [place]) Address [address] [place] [address] Care Team Providers Care Demand Planning Analyst Name Role Phone Unavailable Primary Care Provider Unavailabl e Encounter Details Date Type Department Care Team (Late st Contact Info) Description 07/26/2019 Transcribed Document [facility] [place] [address] [place] [address] ProviderChano MD [address] [place], [place] [phone] Social History Tobacco Use Types Packs/Day Years [...]
--- OUTSIDE RECORDS SUMMARY | 2025-09-06 08:12 | XMS_ITS | Encounter Summary ---
Author Organization [employer] ([place], [place], [place], [place], [place]) Address [address] [place] [address] Care Team Providers Care Diesel Motor Mechanic Name Role Phone Unavailable Primary Care Provider Unavailabl e Encounter Details Date Type Department Care Team (Late st Contact Info) Description 10/05/2019 Transcribed Document [facility] [place] [facility] Medicine [facility] [place] [address] ProviderChano MD [address] [place], [place] [id number] Social History Tobacco Use Types Packs/Day Years Used Date Smoking Tobacco: Never Assessed Comments Unknown Sex and Gender Information Value Date Recorded Sex Assigned at Not on file Legal Sex Female 2:07 PM CDT Gender Identity Not on file Sexual Orientation Not on file documented as of this encounter Miscellaneous Notes * Cerner Conversion Note - Historical ProviderMD - 10/05/2019 10:49 PM PARTY PLANNER Electronically signed by [facility], [facility] Conversion Supercalender Operator Helper Cerner at 01/23/2023 1:28 PM CDT documented in this encounter Plan of Treatment Not on file documented as of this encounter Visit Diagnoses Not on filedocumented in this encounter
--- OUTSIDE RECORDS SUMMARY | 2025-09-06 08:12 | XMS_ITS | Encounter Summary ---
Author Organization [employer] ([place], [place], [place], [place], [place]) Address [address] [place] [address] Care Team Providers Care Garnett Machine Operator Helper Name Role Phone Unavailable Primary Care Provider Unavailabl e Encounter Details Date Type Department Care Team (Late st Contact Info) Description 10/05/2019 Transcribed Document [facility] [place] [address] [place] [address] ProviderChano MD [address] [place], [place] [id number] Social History Tobacco Use Types Packs/Day Years Used Date Smoking Tobacco: Never Assessed Comments Unknown Sex and Gender Information Value Date Recorded Sex Assigned at Not on file Legal Sex Female 2:07 PM CDT Gender Identity Not on file Sexual Orientation Not on file documented as of this encounter Miscellaneous Notes * Cerner Conversion Note - Historical MD En - 10/05/2019 7:44 PM L[employer] HEALTH ADVOCATE Provider Notification Entered On: 10/05/2019 19:45 EST Performed On: 10/05/2019 19:44 EST by Chrissy Villeda RN Provider Notification Provider Notified of Concerns/Results : Critical value result Critical Result Details : Lactic Acid 2.8 Critical Result Call Received From : Jb in lab Critical Result Read Back and Verified : Yes Provider Notified Name : MARILIN SAVANA FALLON SUN Provider Not Notified Reason : Provider already reviewed abnormal results Provider Notified Time : 10/05/2019 19:44 EST Chrissy Villeda RN - 10/05/2019 19:44 EST Electronically signed by Summer [facility] Conversion Industrial Management Teacher Cerner at 01/23/2023 1:20 PM CDT documented in this encounter Plan of Treatment Not on file documented as of this encounter Visit Diagnoses Not on filedocumented in this encounter
--- OUTSIDE RECORDS SUMMARY | 2025-09-06 08:12 | XMS_ITS | Encounter Summary ---
Author Organization [employer] ([place], [place], [place], [place], [place]) Address [address] [place] [address] Care Team Providers Care Citrix Lead Name Role Phone Unavailable Primary Care Provider Unavailabl e Encounter Details Date Type Department Care Team (Late st Contact Info) Description 07/11/2019 Transcribed Document [facility] [place] Family Medicine [facility] [place] [address] ProviderChano MD [facility] [place] [id number] Social History Tobacco Use Types Packs/Day Years [...] mg, 14 mL, 128 mL/Hr, IV Piggyback, H56BUdl Cymbalta: 60 mg, Oral, At Bedtime DuoNeb 0.5 mg-2.5 mg/3 mL inhalation solution: 3 mL, Nebulized Inhalation, RT_Q6H, PRN: Shortness of Breath Flonase: 1 Puff, Nasal, Daily Haldol: 2 mg, IV Push, Q8H, PRN: Agitation Lantus: 20 Units, SubCutaneous, Daily MiraLax: 17 Gram, Oral, Daily, PRN: Constipation Pepcid: 20 mg, IV Push, BID Rocephin: 2 Gram, 100 mL/Hr, IV Piggyback, J20PGvi SEROquel: 6.25 mg, Oral, BID Senna S: [...] chew) Flonase 0.05 mg/inh nasal spray: 2 Talala, Nasal, Daily, 16 Gram, 0 Refill(s) Lantus: [...] Bedtime Flonase 0.05 mg/inh nasal spray 2 Talala, Nasal, Daily Lantus 60 Units, SubCutaneous, At [...] Scheduled: (14) cefTRIAXone 2 Gram, IV Piggyback, F70DMtq DAPTOmycin + NaCl 0.9% 50 mL 700 mg 14 mL, IV Piggyback, I28ARgm docusate sodium 100 mg cap 100 mg [...] list: Medical Wears glasses / SNOMED CT 083349352 / Confirmed Sleep apnea///risk / SNOMED CT 571035428 / Confirmed Colon polyps / SNOMED CT 684972700 / Confirmed Right leg pain / SNOMED CT 5361042112 / Confirmed Obesity / SNOMED CT 1101292603 / Confirmed Numbness and tingling//right leg / SNOMED CT 5272856290 / Confirmed Memory deficit///slow recall / SNOMED CT 1452648090 / Confirmed H/O ischemic left MCA stroke / SNOMED CT 6025792833 / Confirmed Hiatal hernia / SNOMED CT 720652661 / Complaint of Fibromyalgia / SNOMED CT 224873770 / Confirmed Lumbar disc disease / SNOMED CT 3887551449 / Confirmed Completely occulded L carotid / SNOMED CT 8488660382 / Confirmed Chest pain///cath negative / SNOMED CT 69056793 / Confirmed Cataract///beginning stage / SNOMED CT 251720938 / Confirmed Back pain / SNOMED CT 3343618624 / Confirmed At risk for sleep apnea / IMO 55897995 / Confirmed Pain//chronic / SNOMED CT 427914129 / Confirmed, Active Problems (24) Acid reflux [...] 09) 9.1 (JUL 08) HB 11.5 (JUL 11) 12.6 (JUL 09) 12.0 (JUL 03) HCT 35.6 (JUL 06) 39.8 (JUL 04) 37.3 (JUL 03) Plt 230 (JUL 06) 267 (JUL 04) 268 (JUL 03) Na 140 (JUL 06) 142 (JUL 09) 141 (JUL 03) K 4.2 (JUL 06) 4.4 (JUL 04) 3.9 (JUL 03) Cl 104 (JUL 06) 106 (JUL 04) 105 (JUL 03) CO2 31 (JUL 06) 27 (JUL 04) 30 (JUL 03) BUN 14 (JUL 06) 19 (JUL 09) 20 (JUL 03) Cr 0.90 (JUL 06) H 1.10 (JUL 04) 1.00 (JUL 03) Glu R H 248 (JUL 06) H 207 (JUL 04) H 153 (JUL 03) Ca 9.0 (JUL 06) 9.4 (JUL 09) 9.7 [...] (JUL 08) Radiology Results (Last 48 hours) [id number] -- 07/08/2019 21:23 CR Fluoro in OR [...]
--- OUTSIDE RECORDS SUMMARY | 2025-09-06 08:12 | XMS_ITS | Encounter Summary ---
Author Organization [employer] ([place], [place], [place], [place], [place]) Address [address] [place] [address] Care Team Providers Care Boatswains Mate Name Role Phone Unavailable Primary Care Provider Unavailabl e Encounter Details Date Type Department Care Team (Late st Contact Info) Description 07/27/2019 Transcribed Document [facility] [place] [facility] [place] [address] ProviderChano MD [address] [place] [id number] Social History Tobacco Use Types Packs/Day Years [...] epithelial cells. Urine culture was positive for 10???416091 CFU/mL. CT of the L-spine was negative. [...] or confusion. ROS and hx discussed with [id number], has had ceofusion and fever last 2 [...] fluticasone nasal (Flonase) - 1 Puff, Nasal, [place], Daily, Routine miconazole topical (Desenex AF 2% [...] (JUL 13) Cl 105 (JUL 27) 107 (JUL 17) 107 (OCT 16) 106 (JUL 13) CO2 26 (JUL 22) 24 (OCT 17) 29 (OCT 16) 30 (OCT 13) BUN H 29 (JUL 27) H 24 (JUL 17) H 27 (JUL 16) H 23 (JUL 13) Cr H 1.20 (JUL 27) H 1.06 (OCT 17) 1.00 (OCT 16) 1.00 (OCT 13) Glu R H 207 (JUL 27) H 172 (JUL 17) H 134 (JUL 16) H 213 (JUL 13) Ca 9.5 (JUL 27) 9.0 (OCT 17) 9.1 (OCT 16) 9.4 (OCT 13) PT 9.9 (JUL 04) 10.1 (JUL 03) INR 0.9 (JUL 04) 0.9 (JUL 03) PTT 28.0 (JUL 03) AST 20 (JUL 27) 15 (OCT 16) 18 (JUL 07) 16 (OCT 04) ALT 24 (OCT 22) 24 (OCT 16) 25 (JUL 07) 23 (OCT 04) ALK P 56 [...] cultures Follow labs UM discussed with KHARI 911 Emergency Dispatcher ESR slightly up documented in this encounter Plan of Treatment Not on file documented as of this encounter Visit Diagnoses Not on filedocumented in this encounter
--- OUTSIDE RECORDS SUMMARY | 2025-09-06 08:12 | XMS_ITS | Encounter Summary ---
Author Organization [employer] ([place], [place], [place], [place], [place]) Address [address] [place] [address] Care Team Providers Care Asbestos Coverer Name Role Phone Unavailable Primary Care Provider Unavailabl e Encounter Details Date Type Department Care Team (Late st Contact Info) Description 07/28/2019 Transcribed Document [facility] [place] [address] [place] [address] ProviderChano MD [address] [place] [address] Social History Tobacco Use Types [...] On: 07/28/2019 14:58 EDT by HORACIO ACHARYA RN-Professor Of LiteracySchool Bus Inspector Progress Note Discharge Arrangements : Patient Post-Acute Information Patient Name: LUDY ANTONIO Gender: Female : 48 Age: 68 Years Curaspan Referral(s): Service: Organization: Business Address: Phone Number: Home Care Physician Services [facility] - [address], [address], [place], [address] Barriers to Discharge Identified : Clinical Condition of Patient Barriers to Discharge Unresolved : All resolved Designation of Choice Signed : Yes Patient Offered Choice/Affiliations Explained : Yes List/Info Provided Pt/Fam/Support Person : Home health Were Referrals Sent to Post Acute Providers : Yes HORACIO ACHARYA, RN-Professor Of Literacy - 07/28/2019 14:58 EDT documented in this encounter Plan of Treatment Not on file documented as of this encounter Visit Diagnoses Not on filedocumented in this encounter
--- OUTSIDE RECORDS SUMMARY | 2025-09-06 08:12 | XMS_ITS | Encounter Summary ---
Author Organization [employer] ([place], [place], [place], [place], [place]) Address [address] [place] [address] Care Team Providers Care Cogeneration Operator Name Role Phone Unavailable Primary Care Provider Unavailabl e Encounter Details Date Type Department Care Team (Late st Contact Info) Description 07/27/2019 Transcribed Document [facility] [place] [address] [place] [address] ProviderChano MD [address] [place], [place] [phone] Social History Tobacco Use Types Packs/Day Years [...] On: 07/27/2019 16:58 EDT by HORACIO ACHARYA RN-Actuarial AssociateClinical Trials Specialist Progress Note Discharge Arrangements : Patient Post-Acute Information Patient Name: ADRIENNE ANTONIO Gender: Female : 48 Age: 68 Years No Post-Acute Placement(s) Listed No Post-Acute Service(s) Listed No Curaspan Referral(s) Listed Barriers to Discharge Identified : Clinical Condition of Patient Barriers to Discharge Unresolved : Clinical Condition of Patient HORACIO ACHARYA RN-Actuarial Associate - 07/27/2019 16:58 EDT Narrative Progress Note [...] : Referrals resent to [facility] in [place] and spoke to admissions. No beds as of now, but they will look at referral to determine if able to offer a bed when one comes available. Resenreferral to [facility] as well, they are looking at pt again. Sent referral to [facility]. Daughter Alma Rosa found a psych facility in [place]--[facility] and got a personal banking assistant--Joey Barriga ([phone]). Referral sent via Dariel and informed intake as well as had discussion with Joey regarding pt. CM will continue to follow. HORACIO ACHARYA RN-Actuarial Associate - 07/26/19 16:18:25 MRI-(-). U/A-pyuria. No abx per Dr. Jama. Pt even more confused today, refusing therapy and meds. Pt is paranoid thinking people are trying to give her things against her will. More updates and test results [place] [facility] [place] spoke to Monisha. Pt has been medically cleared to mi. Monisha called CM later in day and stated MD has declined admission. CM begged Monisha to ask if MD would come do a bedside evaluation. She states she will ask. Spoke to Monisha 2 hours later, he states he does not do bedside evals. D/W pt's daughter, Dr. Reid, Dr. Jama, and bedside RN Fior. CM will contniue to follow. HORACIO ACHARYA RN-Actuarial Associate - 07/23/19 17:17:27 Pt's confusion is worse. She is unable to use utensils and is using her hands to eat. [facility] reconsulted. Labs/urine sent. [facility] called asking if pt still needed placement. Saritha Monsivais met with pt at bedside and feels pt would do better if went to psych unit prior to rehab. Spoke to Urvashi at [facility] and sent updates to her. She states pt has to be medically ready for dc before she can given MD referral. Pt is not ready today. D/W Dr. Reid, pt's daughter, spouse, and bedside RN. CM will contniue to follow. HORACIO ACHARYA RN-Actuarial Associate - 07/23/19 17:13:59 Lisbeth met with pt and family at bedside, but her boss has declined admission. Spoke to Yodit with [facility], she can offer at all 3 in [place], [place], and [place] [facility]. They chose [facility], precert initiated. CM will continue to follow. HORACIO ACHARYA RN-Actuarial Associate - 07/21/19 14:38:34 Pt was referred to 18 debbie/psych facilities by [facility]. All have declined admission, some stating she needs physical rehab and/or does not have any acute issues for psych admission. Spouse agreeable to try for SNF admission since she is still requiring assistance with ADL's and bed mobility. He chose [facility] at [facility], and [facility]. Referrals sent via [employer]. Spoke to Lisbeth with the [facility]. She states they have a hide stretcher hand that can see pt at the facility. She will need to come do a bedside eval. D/W Dr. Horner as well. CM will continue to follow. HORACIO ACHARYA RN-Actuarial Associate - 07/20/19 15:47:15 [facility] consulted. They [...] CM will continue to follow. HORACIO ACHARYA RN-Actuarial Associate - 07/19/19 15:10:43 [facility] eval for inpatient psych on Thursday 07/19. CM will continue to follow. HORACIO ACHARYA RN-Actuarial Associate - 07/16/19 12:46:58 [facility] declined admission to their psych unit. No word from [facility]. Met with pt's daughter and had lengthy discussion regarding disposition. CM will consult [facility] at time of dc for help with admission to debbie-psych unit somewhere. D/W Dr. Horner and Dr. Jama. CM will continue to follow. HORACIO ACHARYA RN-Actuarial Associate - 07/15/19 14:03:13 Spoke to pt's spouse Kian on the phone today. 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 He states he does not want her going to those places as she kows people there. He agrees to referrals to [facility] and [facility] inpatient psych units. Referral sent and spoke to JUSTA Perez at [facility] and Yaa-rim fire charger operator at [facility]. CM will continue to follow. HORACIO ACHARYA RN-Actuarial Associate - 07/14/19 13:36:43 Dr. Valdez consult [...] CM will continue to follow. HORACIO ACHARYA RN-Actuarial Associate - 07/13/19 17:41:20 psych consult referral faxed to Dr. Valdez's office to assess for psychosis. SANJIV VOGT RN-Actuarial Associate - 07/11/19 16:14:26 HORACIO ACHARYA RN-Actuarial Associate - 07/27/2019 16:58 EDT Electronically signed by Summer [facility] Conversion Aircraft Steel Fabricator Cerner at 01/23/2023 1:31 PM CDT documented in this encounter Plan of Treatment Not on file documented as of this encounter Visit Diagnoses Not on filedocumented in this encounter
--- OUTSIDE RECORDS SUMMARY | 2025-09-06 08:12 | XMS_ITS | Encounter Summary ---
Author Organization [employer] ([place], [place], [place], [place], [place]) Address [address] [place] [address] Care Team Providers Care Underwater Hunter Name Role Phone Unavailable Primary Care Provider Unavailabl e Encounter Details Date Type Department Care Team (Late st Contact Info) Description 07/12/2019 Transcribed Document [facility] [place] Family Medicine [address] [place] [address] ProviderChano MD [address] [place], [place] [phone] Social History Tobacco Use Types Packs/Day Years [...]
--- OUTSIDE RECORDS SUMMARY | 2025-09-06 08:12 | XMS_ITS | Encounter Summary ---
Author Organization [employer] ([place], [place], [place], [place], [place]) Address [address] [place] [address] Care Team Providers Care Switchboard Operator Helper Name Role Phone Unavailable Primary Care Provider Unavailabl e Encounter Details Date Type Department Care Team (Late st Contact Info) Description 07/28/2019 Transcribed Document [facility] [place] [address] [place] [address] ProviderChano MD [address] [place] [address] Social History Tobacco Use Types [...] On: 07/28/2019 15:00 EDT by HORACIO ACHARYA RN-Emergency Department Rn Final Discharge Planning Discharge Arrangements : Patient Post-Acute Information Patient Name: LUDY ANTONIO Gender: Female : 48 Age: 68 Years Curaspan Referral(s): Service: Organization: Business Address: Phone Number: Home Care Physician Services [facility] - [address], [address], [place], [address] Patient Offered Choice/Affiliations Explained : [...] Services (Related/SOC within 3 days)-06 HORACIO ACHARYA RN-Emergency Department Rn - 07/28/2019 15:00 EDT Final Narrative Note Final Narrative Note : Pt dc'd home today via spouse and daughter Alma Rosa. Informed Kavitha with [facility]. No other CM needs identified. HORACIO ACHARYA RN-Emergency Department Rn - 07/28/2019 15:00 EDT documented in this encounter Plan of Treatment Not on file documented as of this encounter Visit Diagnoses Not on filedocumented in this encounter
--- OUTSIDE RECORDS SUMMARY | 2025-09-06 08:13 | XMS_ITS | Encounter Summary ---
Author Organization [employer] ([place], [place], [place], [place], [place]) Address [address] [place] [address] Care Team Providers Care Electronic Publisher Name Role Phone Unavailable Primary Care Provider Unavailabl e Encounter Details Date Type Department Care Team (Late st Contact Info) Description 07/27/2019 Transcribed Document [facility] [place] Family Medicine [address] [place] [address] ProviderChano MD [address] [place], [place] [phone] Social History Tobacco Use Types Packs/Day Years [...] adult Legal Guardian : No Support Person/Patient Curing Supervisor : No Support Person/Pt Rep Name : kian Savage - spouse Alma Rosa Zepeda [phone] Contact Password : Ramiro jones Support Person/Pt Rep Contact Information : [phone] Want Family/Rep/Phys Notified of Admit : No Emergency Contact #1 : Kian Savage Emergency Contact #1 Emergency Contact #1 Relationship : spouse Emergency Contact #2 : Alma Rosa Zepeda Emergency Contact #2 Emergency Contact #2 Relationship : dgt Chief Complaint : pt had back surgery (L3-L4) apx 1 month ago, nausea but no vomiting, back pain 10/. took 10mg oxycodone at 1330 today. Information Obtained From : Patient Primary Language : Belarusian Preferred Communication Mode : Verbal Communication Barrier : None Shani Dewitt RN - 07/27/2019 11:20 EDT Electronically signed by Summer [facility] Conversion Car Starter Cerner at 01/23/2023 1:12 PM CDT documented in this encounter Plan of Treatment Not on file documented as of this encounter Visit Diagnoses Not on filedocumented in this encounter
--- OUTSIDE RECORDS SUMMARY | 2025-09-06 08:13 | XMS_ITS | Encounter Summary ---
Author Organization [employer] ([place], [place], [place], [place], [place]) Address [address] [place] [address] Care Team Providers Care Structural Test Engineer Name Role Phone Unavailable Primary Care Provider Unavailabl e Encounter Details Date Type Department Care Team (Late st Contact Info) Description 07/09/2019 Transcribed Document [facility] [place] [address] [place] [address] ProviderChano MD [address], [place] [id number] Social History Tobacco Use Types Packs/Day Years [...] Nahomy Kim, RN - 07/09/2019 10:36 EDT documented in this encounter Plan of Treatment Not on file documented as of this encounter Visit Diagnoses Not on filedocumented in this encounter
--- OUTSIDE RECORDS SUMMARY | 2025-09-06 08:13 | XMS_ITS | Encounter Summary ---
Author Organization [employer] ([place], [place], [place], [place], [place]) Address [address] [place] [address] Care Team Providers Care Record Maker Name Role Phone Unavailable Primary Care Provider Unavailabl e Encounter Details Date Type Department Care Team (Late st Contact Info) Description 07/09/2019 Transcribed Document [facility] [place] [address] [place] [address] ProviderChano MD [address], [place] [phone] Social History Tobacco Use Types Packs/Day Years Used Date Smoking Tobacco: Never Assessed Comments Unknown Sex and Gender Information Value Date Recorded Sex Assigned at Not on file Legal Sex Female 2:07 PM CDT Gender Identity Not on file Sexual Orientation Not on file documented as of this encounter Miscellaneous Notes * Cerner Conversion Note - Historical ProviderMD - 07/09/2019 3:05 PM CDT Evaluation, [...] in bed RN/PCT Informed Comment : RN JC (Brittany)'ed PTx. Treatment End Time : 07/10/2019 9:15 [...] NANO OSBORNE, PT - 07/10/2019 12:43 EDT Chief Of Harbor Patrol Goals Mobility/Bed Mobility LTG PT Grid Goal [...]
--- OUTSIDE RECORDS SUMMARY | 2025-09-06 08:13 | XMS_ITS | Encounter Summary ---
Author Organization [employer] ([place], [place], [place], [place], [place]) Address [address] [place] [address] Care Team Providers Care Clay House Worker Name Role Phone Unavailable Primary Care Provider Unavailabl e Encounter Details Date Type Department Care Team (Late st Contact Info) Description 07/25/2019 Transcribed Document [facility] [place] [address] [place] [address] ProviderChano MD [address] [place] [address] Social History Tobacco Use Types [...] Student-Physical Therapist Attempt to Treat Notification : RN DEONTE Doss, PT - 07/25/2019 11:22 EDT Unable to Treat Due To : Patient Refusal Rosy Guzman, Student-Physical Therapist - 07/25/2019 11:17 EDT Inability to Treat Comment : After several minutes of attempting to have pt participate pt became irritated and continued to refuse. Pt confused and reported that she wanted to have a shower first. PT in agreement with student note. DEONTE DUNN PT - 07/25/2019 11:22 EDT Electronically signed by Summer [facility] Conversion Cutter Brake Lining Cerner at 01/23/2023 1:15 PM CDT documented in this encounter Plan of Treatment Not on file documented as of this encounter Visit Diagnoses Not on filedocumented in this encounter
--- OUTSIDE RECORDS SUMMARY | 2025-09-06 08:13 | XMS_ITS | Encounter Summary ---
Author Organization [employer] ([place], [place], [place], [place], [place]) Address [address] [place] [address] Care Team Providers Care Lot Technician Name Role Phone Unavailable Primary Care Provider Unavailabl e Encounter Details Date Type Department Care Team (Late st Contact Info) Description 07/09/2019 Transcribed Document [facility] [place] Family Medicine [address] [place] [address] ProviderChano MD [address], [place] [phone] Social History Tobacco Use Types Packs/Day Years [...] On: 07/09/2019 12:59 EDT by ROSEY SANTILLAN, Waredresser Primary Insurance Authorization Authorization and Policy Numbers : Insurance 1 Health Plan: [employer] H[employer] Policy Number: [id number] Authorization Number: Insurance Primary Name : [employer] [id number] Authorization Status-Primary : Opo status approv Authorization Fax Number-Primary : [phone] Auth/Referral Phone Number-Primary : [phone] Auth/Referral Contact Name-Primary : Saulo Hanks Authorized Service Begin Date-Primary : 07/08/2019 EDT Observation Authorization Nbr-Primary : [id number] Authorization Comments-Primary : submitted for and obtained opo approval from [employer] opo auth# [id number] Historical Authorization Comments-Primary : No Authorization Comments Found ROSEY SANTILLAN, Waredresser - 07/09/2019 12:59 EDT Electronically signed by Julian Wheeler Conversion Rotary Slicing Machine Operator Cerner at 01/23/2023 1:13 PM CDT documented in this encounter Plan of Treatment Not on file documented as of this encounter Visit Diagnoses Not on filedocumented in this encounter
--- OUTSIDE RECORDS SUMMARY | 2025-09-06 08:13 | XMS_ITS | Encounter Summary ---
Author Organization [employer] ([place], [place], [place], [place], [place]) Address [address] [place] [address] Care Team Providers Care Outside Laborer Name Role Phone Unavailable Primary Care Provider Unavailabl e Encounter Details Date Type Department Care Team (Late st Contact Info) Description 07/09/2019 Transcribed Document [facility] [place] Family Medicine [facility] [place] [address] ProviderChano MD [facility] [place] [id number] Social History Tobacco Use Types Packs/Day Years Used Date Smoking Tobacco: Never Assessed Comments Unknown Sex and Gender Information Value Date Recorded Sex Assigned at Not on file Legal Sex Female 2:07 PM CDT Gender Identity Not on file Sexual Orientation Not on file documented as of this encounter Miscellaneous Notes * [employer]ner Conversion Note - Historical ProviderMD - 07/09/2019 3:07 PM CDT DATE OF PROCEDURE:07/09/2019 NEUROSURGERY OPERATIVE PORT PREOPERATIVE DIAGNOSIS(ES): Refractory, intractable back and leg pain. POSTOPERATIVE DIAGNOSIS(ES): Refractory, intractable back and leg pain. PROCEDURE: Redo right L3-4 minimally invasive surgery microdiscectomy. SURGEON: Thom Lucas MD EMAIL OPERATIONS MANAGER: Ronel Michel PA-C. Scrubbed, present, assisted including [...] MD Electronically signed by Julian Wheeler Conversion Ethanol Maintenance Mechanic Cerner at 01/23/2023 1:08 PM CDT documented in this encounter Plan of Treatment Not on file documented as of this encounter Visit Diagnoses Not on filedocumented in this encounter
--- OUTSIDE RECORDS SUMMARY | 2025-09-06 08:13 | XMS_ITS | Encounter Summary ---
Author Organization [employer] ([place], [place], [place], [place], [place]) Address [address] [place] [address] Care Team Providers Care Bridge Painter Name Role Phone Unavailable Primary Care Provider Unavailabl e Encounter Details Date Type Department Care Team (Late st Contact Info) Description 07/09/2019 Transcribed Document [facility] [place] Family Medicine [address] [place] [address] ProviderChano MD [address] [place], [place] [phone] Social History Tobacco Use Types Packs/Day Years [...] EDT Electronically signed by Julian Wheeler Conversion Senior Cytogenetic Technologist Cerner at 01/23/2023 1:12 PM CDT documented in this encounter Plan of Treatment Not on file documented as of this encounter Visit Diagnoses Not on filedocumented in this encounter
--- OUTSIDE RECORDS SUMMARY | 2025-09-06 08:13 | XMS_ITS | Encounter Summary ---
Author Organization [employer] ([place], [place], [place], [place], [place]) Address [address] [place] [address] Care Team Providers Care Control Board Operator Name Role Phone Unavailable Primary Care Provider Unavailabl e Encounter Details Date Type Department Care Team (Late st Contact Info) Description 07/26/2019 Transcribed Document [facility] [place] [facility] [place] [address] ProviderChano MD [address] [place] [id number] Social History Tobacco Use Types Packs/Day Years [...] epithelial cells. Urine culture was positive for 10???607260 CFU/mL. CT of the L-spine was negative. [...] or confusion. ROS and hx discussed with [id number], has had ceofusion and fever last 2 [...] fluticasone nasal (Flonase) - 1 Puff, Nasal, [place], Daily, Routine miconazole topical (Desenex AF 2% [...] cultures Follow labs UM discussed with DC Cane Pusher With increasing back pain will repcheck labs in am if still here Electronically signed by Summer, [facility] Conversion Short Story Writer Cerner at 01/23/2023 1:37 PM CDT documented in this encounter Plan of Treatment Not on file documented as of this encounter Visit Diagnoses Not on filedocumented in this encounter
--- OUTSIDE RECORDS SUMMARY | 2025-09-06 08:13 | XMS_ITS | Encounter Summary ---
Author Organization [employer] ([place], [place], [place], [place], [place]) Address [address] [place] [address] Care Team Providers Care Table Assembler Name Role Phone Unavailable Primary Care Provider Unavailabl e Encounter Details Date Type Department Care Team (Late st Contact Info) Description 07/23/2019 Transcribed Document [facility] [place] Family Medicine [facility] [place] [address] ProviderChano MD [facility] [place] [phone] Social History Tobacco Use Types Packs/Day Years [...] from hospital Discharged to, Therapy : Unit, retirement THERESA TURNER STUDENT-PHYSICAL THERAPIST - 07/23/2019 16:12 EDT Discharge Summary Comment, PT : As of 07/21, pt ambulated 40ft RWx Meena. pt has refused all treatment attempts since. pt met 3/3 STG and 0/4 LTG. per chart review pt discharged to SNF PTx has reviewed and agrees with this documentation. Milad Schaeffer THUAN PT - 07/23/2019 16:16 EDT Short Term [...] TURNER STUDENT-PHYSICAL THERAPIST - 07/23/2019 16:12 EDT Animal Anatomist Goals Mobility/Bed Mobility LTG PT Grid Goal [...] TURNER STUDENT-PHYSICAL THERAPIST - 07/23/2019 16:12 EDT Electronically signed by Julian Wheeler Conversion Wafer Fabrication Technician Cerner at 01/23/2023 1:39 PM CDT documented in this encounter Plan of Treatment Not on file documented as of this encounter Visit Diagnoses Not on filedocumented in this encounter
--- OUTSIDE RECORDS SUMMARY | 2025-09-06 08:13 | XMS_ITS | Encounter Summary ---
Author Organization [employer] ([place], [place], [place], [place], [place]) Address [address] [place] [address] Care Team Providers Care Head Of Housekeeping Name Role Phone Unavailable Primary Care Provider Unavailabl e Encounter Details Date Type Department Care Team (Late st Contact Info) Description 07/09/2019 Transcribed Document [facility] [place] [address] [place] [address] ProviderChano MD [address] [place], [place] [phone] Social History Tobacco Use Types Packs/Day Years Used Date Smoking Tobacco: Never Assessed Comments Unknown Sex and Gender Information Value Date Recorded Sex Assigned at Not on file Legal Sex Female 2:07 PM CDT Gender Identity Not on file Sexual Orientation Not on file documented as of this encounter Miscellaneous Notes * Cerner Conversion Note - Chano ProviderMD - 07/09/2019 1:00 PM CDT [facility] Main OR Preop Summary Primary Physician: CATRACHITO THOMPSON, MD ONUR Finalized Date/Time: 07/09/19 13:35:39 Pt. Name: LUDY ANTONIO D.O.B./Sex: 1950 Female Med Rec #: [id number] Physician: TOM MORSE MD-INT Financial #: [id number] Pt. Type: O Room/Bed: 63/1 Admit/Disch: 07/08/19 21:23:00 - Institution: [facility] PreOp Case Times Entry 1 In Preop 07/09/19 12:29:00 Ready for Holding n/a Room Patient Ready for 07/09/19 13:25:00 Surgery Patient Out of Preop 07/09/19 13:25:00 Patient Out of n/a Holding Room Last Modified By: Miriam Boudreaux RN 07/09/19 13:35:38 [facility] PreOp Case Times Audit 07/09/19 13:35:38 Gum Cook: [email or web address] Modifier: [email or web address] <+> 1 Patient Out of Preop Finalized By: Miriam Boudreaux RN Document Signatures Signed By: Miriam Boudreaux RN 07/09/19 13:35 Electronically signed by Summer [facility] Conversion [employer] Lead Cerner at 01/23/2023 1:20 PM CDT documented in this encounter Plan of Treatment Not on file documented as of this encounter Visit Diagnoses Not on filedocumented in this encounter
--- OUTSIDE RECORDS SUMMARY | 2025-09-06 08:13 | XMS_ITS | Encounter Summary ---
Author Organization [employer] ([place], [place], [place], [place], [place]) Address [address] [place] [address] Care Team Providers Care Stripping Shovel Operator Name Role Phone Unavailable Primary Care Provider Unavailabl e Encounter Details Date Type Department Care Team (Late st Contact Info) Description 07/24/2019 Transcribed Document [facility] [place] Family Medicine [address] [place] [address] ProviderChano MD [address] [place], [place] [phone] Social History Tobacco Use Types Packs/Day Years [...] of her surroundings or situation Notification : RN NIRMAL Pearson, PT - 07/24/2019 14:18 EDT documented in this encounter Plan of Treatment Not on file documented as of this encounter Visit Diagnoses Not on filedocumented in this encounter
--- OUTSIDE RECORDS SUMMARY | 2025-09-06 08:13 | XMS_ITS | Encounter Summary ---
Author Organization [employer] ([place], [place], [place], [place], [place]) Address [address] [place] [address] Care Team Providers Care Shell Press Operator Name Role Phone Unavailable Primary Care Provider Unavailabl e Encounter Details Date Type Department Care Team (Late st Contact Info) Description 07/09/2019 Transcribed Document [facility] [place] Family Medicine [facility] [place] [address] ProviderChano MD [facility] [place], [place] [phone] Social History Tobacco Use Types Packs/Day Years [...] on regular diet. No intakes recorded. Nsg coding assistant states pt has been eating well, [...]
--- OUTSIDE RECORDS SUMMARY | 2025-09-06 08:13 | XMS_ITS | Encounter Summary ---
Author Organization [employer] ([place], [place], [place], [place], [place]) Address [address] [place] [address] Care Team Providers Care Farm Service Adviser Name Role Phone Unavailable Primary Care Provider Unavailabl e Encounter Details Date Type Department Care Team (Late st Contact Info) Description 07/27/2019 Transcribed Document [facility] [place] Family Medicine [address] [place] [address] ProviderChano MD [address] [place], [place] [phone] Social History Tobacco Use Types Packs/Day Years Used Date Smoking Tobacco: Never Assessed Comments Unknown Sex and Gender Information Value Date Recorded Sex Assigned at Not on file Legal Sex Female 2:07 PM CDT Gender Identity Not on file Sexual Orientation Not on file documented as of this encounter Miscellaneous Notes * Cerner Conversion Note - Historical ProviderMD - 07/27/2019 1:46 PM CDT Patient: LUDY ANTONIO Age: 68 Years Sex: Female : 1950 Subjective Patient sitting in a chair in street clothes. Currently being interviewed by a [facility] insurance service representative. Review of Systems Heme - on Lovenox for DVT prevention Objective Vitals & Measurements T: 36.7 ??C TMIN: 36.4 ??C TMAX: 36.8 ??C HR: 67(Monitored) RR: 17 BP: 108/68 SpO2: 91% Physical Exam Well developed female. Speech - fluent Tells me that we are at [facility]. Assessment/Plan Ludy Antonio is a 68-year-old [...] 2. Side effects of medications. 3. A INFECTION PREVENTIONIST infection. 4. Cerebrovascular disease. 5. Seizures - [...]
--- OUTSIDE RECORDS SUMMARY | 2025-09-06 08:13 | XMS_ITS | Encounter Summary ---
Author Organization [employer] ([place], [place], [place], [place], [place]) Address [address] [place] [address] Care Team Providers Care And Rescue Fire Fighter Crash Fire Name Role Phone Unavailable Primary Care Provider Unavailabl e Encounter Details Date Type Department Care Team (Late st Contact Info) Description 07/09/[address] [facility] [place] [address] [place] [address] ProviderChano MD [address] [place] [phone] Social History Tobacco Use Types Packs/Day Years [...] MATTHEW VILLALOBOS RN - 07/12/2019 3:03 EDT documented in this encounter Plan of Treatment Not on file documented as of this encounter Visit Diagnoses Not on filedocumented in this encounter
--- OUTSIDE RECORDS SUMMARY | 2025-09-06 08:13 | XMS_ITS | Encounter Summary ---
Author Organization [employer] ([place], [place], [place], [place], [place]) Address [address] [place] [address] Care Team Providers Care Chute Tender Name Role Phone Unavailable Primary Care Provider Unavailabl e Encounter Details Date Type Department Care Team (Late st Contact Info) Description 07/09/2019 Transcribed Document [facility] [place] Family Medicine [address] [place] [address] ProviderChano MD [address] [place], [place] [phone] Social History Tobacco Use Types Packs/Day Years Used Date Smoking Tobacco: Never Assessed Comments Unknown Sex and Gender Information Value Date Recorded Sex Assigned at Not on file Legal Sex Female 2:07 PM CDT Gender Identity Not on file Sexual Orientation Not on file documented as of this encounter Miscellaneous Notes * Cerner Conversion Note - Chano ProviderMD - 07/09/2019 2:02 PM CDT [facility] Main OR IntraOp Summary Primary Physician: CATRACHITO THOMPSON, MD ONUR Finalized Date/Time: 07/12/19 14:56:04 Pt. Name: ADRIENNE SAVAGE Ileana CalderonB./Sex: 1950 Female Med Rec #: [id number] Physician: JACINTO OLIVA MD Financial #: [id number] Pt. Type: I Room/Bed: [facility]/ Admit/Disch: 07/11/19 09:51:00 - Institution: [facility] IntraOp Case Attendance Entry 1 Entry 2 Entry 3 Case Attendee CATRACHITO THOMPSON, MD Purvi MOHR Teresa A, RN GULLETTE, ERIN M. Role Performed Surgeon/Proceduralist, Front Desk Worker, First Scrub, First First Time In 07/09/19 13:33:00 07/09/19 13:33:00 07/09/19 13:33:00 Time Out 07/09/19 15:09:00 07/09/19 14:53:00 07/09/19 15:09:00 Procedure Lumbar Microdiscectomy Lumbar Microdiscectomy Lumbar Microdiscectomy Other Attendee Superficial Wound Closed By: Last Modified By: Ann Loja RN Burdine, Teresa A, Ann Bustamante RN 07/09/19 15:10:12 07/09/19 15:10:12 07/09/19 15:10:12 Entry 4 Entry 5 Entry 6 Case Attendee Saurav Juarez SIMPSON, KRISTEN, TIRE REBUILDER ADELA ELLIS, Waterproofer Helper MIGUEL Role Performed Technology Architect TIRE REBUILDER/Nurse Seal Extrusion Operator Anesthesiologist of Record Time In 07/09/19 13:33:00 07/09/19 13:33:00 07/09/19 13:33:00 Time Out 07/09/19 15:09:00 07/09/19 15:09:00 07/09/19 15:09:00 Procedure Lumbar Microdiscectomy Lumbar Microdiscectomy Lumbar Microdiscectomy Other Attendee Superficial Wound Closed By: Last Modified By: Ann Loja RN Burdine, Teresa A, Ann Bustamante RN 07/09/19 15:10:12 07/09/19 15:10:12 07/09/19 15:10:12 Entry 7 Entry 8 Case Attendee FRANCI MICHEL PA-INT Smith, Patsy D, RN Role Performed Physician behavioral assistant Front Desk Worker, First Time In 07/09/19 13:33:00 07/09/19 14:49:00 Time Out 07/09/19 15:09:00 07/09/19 15:09:00 Procedure Lumbar Microdiscectomy Lumbar Microdiscectomy Other Attendee Superficial Wound Closed By: Last Modified By: Ann Loja RN Burdine, Teresa A, RN 07/09/19 15:10:12 07/09/19 15:10:12 [facility] IntraOp Case Attendance Audit 07/09/19 15:10:12 Program Manager Transportation: [id number] Modifier: [id number] <+> Time Out 1 <*> Procedure [...] 8 <*> Procedure Lumbar Microdiscectomy 07/09/19 14:53:51 Program Manager Transportation: [id number] Modifier: [id number] 1 <*> Procedure Lumbar Microdiscectomy 2 <+> [...] Time In <+> 8 Procedure 07/09/19 14:15:56 Program Manager Transportation: [id number] Modifier: [id number] <+> 4 Case Attendee <+> 4 Role Performed <+> 4 Procedure <+> 5 Case Attendee <+> 5 Role Performed <+> 5 Procedure <+> 6 Case Attendee <+> 6 Role Performed <+> 6 Procedure <+> 7 Case Attendee <+> 7 Role Performed <+> 7 Procedure 07/09/19 14:05:43 Program Manager Transportation: [id number] Modifier: [id number] 1 <+> Time In 1 <*> Procedure Lumbar Microdiscectomy 2 <+> Time In 2 <*> Procedure Lumbar Microdiscectomy 3 <+> Time In 3 <*> Procedure Lumbar Microdiscectomy 07/09/19 13:02:22 Program Manager Transportation: [id number] Modifier: [id number] <+> 1 Procedure 2 <*> Procedure Lumbar Microdiscectomy 3 <*> Procedure Lumbar Microdiscectomy [facility] IntraOp Case Times Entry 1 Patient In Room Time 07/09/19 13:33:00 Out Room Time 07/09/19 15:09:00 Anesthesia Start Time 07/09/19 13:33:00 Stop Time 07/09/19 15:09:00 Surgery / Procedure Times Start Time 07/09/19 14:02:00 Stop Time 07/09/19 14:56:00 Last Modified By: Ann Loja RN 07/09/19 15:09:59 [facility] IntraOp Case Times Audit 07/09/19 15:09:59 Program Manager Transportation: [id number] Modifier: [id number] <+> 1 Out Room Time <+> 1 Stop Time 07/09/19 14:56:53 Program Manager Transportation: [id number] Modifier: [id number] <+> 1 Stop Time 07/09/19 14:25:46 Program Manager Transportation: [id number] Modifier: [id number] <+> 1 Start Time [facility] IntraOp Cautery Entry 1 Entry 2 ESU Identification Cautery Type Monopolar ESU BiPolar ESU Cautery Type Comments ID Number [id number] ID Type Hospital Number Hospital Number Cautery [...] Teresa A, RN 07/09/19 13:01:36 07/09/19 13:01:36 [facility] IntraOp Communication Entry 1 Entry 2 Communication To Family/Significant other Family/Significant other Comment start CLOSING Communication By Ann Loja RN Burdine, Teresa A, RN Date and Time 07/09/19 14:05:00 07/09/19 14:54:00 Last Modified By: Ann Loja RN Burdine, Teresa A, RN 07/09/19 14:53:01 07/09/19 14:55:22 [facility] IntraOp Communication Audit 07/09/19 14:55:22 Program Manager Transportation: [id number] Modifier: [id number] <+> 2 Communication By <+> 2 Date and Time <+> 2 Communication To <+> 2 Comment 07/09/19 14:53:01 Program Manager Transportation: [id number] Modifier: [id number] <+> 1 Date and Time [facility] IntraOp Counts Verification Entry 1 Procedure Lumbar [...] Modified By: Ann Loja RN 07/09/19 14:56:47 [facility] IntraOp Cultures and Spec Summary Entry 1 Cultrures and Specimens Specimen Ordered: Yes Test(s) Routine/Path-Lab Requested/Final Disposition Last Modified By: Ann Loja RN 07/09/19 14:16:27 General Comments: A. LUMBAR DISC MATERIAL [facility] IntraOp Departure from OR Entry 1 Integumentary Assessment Integumentary WDL Assessment WDL Transfer/Handoff Transfer to PACU Phase I Handoff Method Phone call Post-op Transport Stretcher/Prabhjot Via Patient Transport FRANCI MICHEL, Accompanied by HEMAL, GLENDA WILLETT CRNA Last Modified By: Ann Loja RN 07/09/19 14:20:43 [facility] IntraOp Dressing and Packing Entry 1 Type Dressing Location opsite Wound Dressing Item Occlusive dressing, Steristrip, Skin adhesive Applied By FRANCI MICHEL PA-INT Other Comments MASTISOL, STERISTRIP, COVADERM Last Modified By: Ann Loja RN 07/09/19 14:57:56 [facility] IntraOp Dressing and Packing Audit 07/09/19 14:57:56 Program Manager Transportation: [id number] Modifier: [id number] 1 <*> Wound Dressing Item Occlusive dressing, Steristrip 1 <+> Other Comments [facility] IntraOp Fire Risk Assessment Entry 1 Fire [...] Modified By: Ann Loja RN 07/09/19 14:08:34 [facility] IntraOp Fire Risk Assessment Audit 07/09/19 14:08:34 Program Manager Transportation: [id number] Modifier: [id number] <+> 1 Fire Risk Assessment Complete 07/09/19 14:05:50 Program Manager Transportation: [id number] Modifier: [id number] <+> 1 Fire Risk Assessment Verified Date/Time [facility] IntraOp General Case Polysom Tech 1 Case Information OR Add-On [facility] Case Level 1 Room Verified Yes Wound Class I - Clean Specialty SN Neurosurgery Anesthesia Type General ASA Class 3 Diagnosis Preop Diagnosis LUMBAR STENOSIS Postop Same As Preop No Postop Diagnosis PLEASE SEE MD NOTES. Last Modified By: Ann oLja RN 07/09/19 14:08:27 [facility] IntraOp Intraoperative Assessment Entry 1 Handoff Method [...] Modified By: Ann Loja RN 07/09/19 14:13:17 [facility] IntraOp Intraoperative Assessment Audit 07/09/19 14:13:17 Program Manager Transportation: [id number] Modifier: [id number] <+> 1 Patient is Latex Sensitive [facility] IntraOp Intraoperative Equipment Entry 1 Type Equipment Equipment Equipment Oksana Suction System Setting 200 Intraop Monitoring Antiembolic Devices Antiembolic Devices Sequential compression device, knee high Antiembolic Device Bilateral Location Scopes Photo/Video Documentation Last Modified By: Ann Loja RN 07/09/19 14:09:30 [facility] IntraOp Medication Admin Entry 1 Entry 2 Entry 3 Medication/Irrigant lidocaine 1% w/ Bacitracin 50,00units SPNG SURGFOAM epinephrine 1:100,000 powder vial [id number] 30ml vial - [id number] Combo Med List Time Administered Route of LOCAL MIXED WITH NS IRRIGATION TOPICAL Administration Dose Dose 10 05074 1 Unit of Measure ml units pkt Volume Administered By ONUR WINSTON MD, MD PHILLIPS MD, GABRIEL, MD PHILLIPS MD, MD ONUR Procedure Irrigation Irrigant Volume In Irrigant Volume Out Last Modified By: Ann Loja RN Burdine, Teresa A, RN Burdine, Teresa A, RN 07/09/19 14:18:11 07/09/19 14:18:11 07/09/19 14:18:11 Entry 4 Entry 5 Medication/Irrigant Marcaine 0.25% 30ml thrombin 5000units vial - [id number] topical powder - [id number] Combo Med List Time Administered Route of LOCAL TOPICAL Administration Dose Dose 10 5000 Unit of Measure ml units Volume Administered By CATRACHITO THOMPSON, MD CATRACHITO MOHR MD, MD ONUR Procedure Irrigation Irrigant Volume In Irrigant Volume Out Last Modified By: Ann Loja RN Burdine, Teresa A, RN 07/09/19 14:18:11 07/09/19 14:18:11 [facility] IntraOp Patient Positioning Entry 1 Procedure Lumbar [...] Modified By: Ann Loja RN 07/09/19 13:02:18 [facility] IntraOp Sign In Entry 1 Patient, Site, [...] Modified By: Ann Loja RN 07/09/19 14:06:07 [facility] IntraOp Sign Out Entry 1 RN Confirmation [...] Modified By: Ann Loja RN 07/09/19 15:10:07 [facility] IntraOp Sign Out Audit 07/09/19 15:10:07 Program Manager Transportation: [id number] Modifier: [id number] <+> 1 RN Sign Out Signature Date/Time [facility] IntraOp Skin Prep Entry 1 Procedure Lumbar Microdiscectomy Prescribed Yes Pre-Surgical Prep Completed Prep Area BACK Intraop Prep Integumentary WDL Assessment WDL Prep Agents Alcohol, Chlorhexadine gluconate Prep by CATRACHITO THOMPSON, MD ONUR Hair Removal Methods No hair removal performed Last Modified By: Ann Loja RN 07/09/19 14:06:37 [facility] IntraOp Surgical Procedures Entry 1 Procedure Lumbar Microdiscectomy Additional (REDO LUMBAR MICRO Procedure DISCECTOMY) Description Primary Procedure Yes Primary Surgeon CATRACHITO THOMPSON, MD ONUR Start 07/09/19 14:02:00 Stop 07/09/19 14:56:00 Anesthesia Type General Specialty SN Neurosurgery Wound Class I - Clean Last Modified By: Ann Loja RN 07/09/19 15:10:09 [facility] IntraOp Surgical Procedures Audit 07/09/19 15:10:09 Program Manager Transportation: [id number] Modifier: [id number] <+> 1 Stop 07/09/19 14:09:12 Program Manager Transportation: [id number] Modifier: [id number] <+> 1 Start [facility] IntraOp Temp Regulation Devices Entry 1 Temp Regulation Temperature Warm blankets Regulation Device Temperature Lower body Regulation Site Temperature Ann Loja RN Regulation Device Applied by Last Modified By: Ann Loja RN 07/09/19 14:09:08 [facility] IntraOP Time Out Entry 1 Procedure to [...] Modified By: Ann Loja RN 07/09/19 14:03:08 [facility] IntraOP Time Out Audit 07/09/19 14:03:08 Program Manager Transportation: [id number] Modifier: [id number] 1 <+> Time Out Pause Time 1 <*> Procedure to be Performed Lumbar Microdiscectomy [facility] IntraOp X-Ray and Images Entry 1 X-Ray/Imaging Type Fluoroscopy Fluoroscopy Type C-Arm Site BACK Coordinator Of Evaluation Name Saurav Juarez, Waterproofer Helper Protective Devices Yes Used Last Modified By: Ann Loja RN 07/09/19 14:18:32 Case Comments <None> Finalized By: SOM BERKOWITZ Document Signatures Signed By: Ann Loja RN 07/09/19 15:10 SOM BERKOWITZ 07/12/19 14:56 Unfinalized History Date/Time Username Reason for Unfinalizing Freetext Reason for Unfinalizing 07/12/19 14:55 WATTSDR Correct Billing documented in this encounter Plan of Treatment Not on file documented as of this encounter Visit Diagnoses Not on filedocumented in this encounter
--- OUTSIDE RECORDS SUMMARY | 2025-09-06 08:13 | XMS_ITS | Encounter Summary ---
Author Organization [employer] ([place], [place], [place], [place], [place]) Address [address] [place] [address] Care Team Providers Care Facility Maintenance Technician Name Role Phone Unavailable Primary Care Provider Unavailabl e Encounter Details Date Type Department Care Team (Late st Contact Info) Description 07/26/2019 Transcribed Document [facility] [address] [place] [address] Abby Reid MD [address] [place] [address] [place] [id number] Social History Tobacco Use Types Packs/Day Years [...] Bedtime Flonase 0.05 mg/inh nasal spray 2 [place], Nasal, Daily gabapentin 300 mg oral capsule [...] as family members. FINAL DISPOSITION: Discharged to shelter facility. Please note greater than 30 minutes [...] chew) Flonase 0.05 mg/inh nasal spray: 2 [place], Nasal, Daily, 16 Gram, 0 Refill(s) Lantus [...] Bedtime Flonase 0.05 mg/inh nasal spray 2 [place], Nasal, Daily gabapentin 300 mg oral capsule [...] Problem list: Medical Pain//chronic / SNOMED CT 320650390 / Confirmed At risk for sleep apnea / IMO 93049445 / Confirmed Back pain / SNOMED CT 0487736193 / Confirmed Cataract///beginning stage / SNOMED CT 864667967 / Confirmed Chest pain///cath negative / SNOMED CT 23126720 / Confirmed Completely occulded L carotid / SNOMED CT 7305614584 / Confirmed Lumbar disc disease / SNOMED CT 9405879469 / Confirmed Fibromyalgia / SNOMED CT 811600942 / Confirmed Hiatal hernia / SNOMED CT 050305542 / Complaint of H/O ischemic left MCA stroke / SNOMED CT 7738611191 / Confirmed Memory deficit///slow recall / SNOMED CT 4886515202 / Confirmed Numbness and tingling//right leg / SNOMED CT 3246564754 / Confirmed Obesity / SNOMED CT 4934927334 / Confirmed Right leg pain / SNOMED CT 5206785995 / Confirmed Colon polyps / SNOMED CT 404608282 / Confirmed Sleep apnea///risk / SNOMED CT 627127257 / Confirmed Wears glasses / SNOMED CT 332061043 / Confirmed, Active Problems (24) Acid reflux [...] 1.00 (OCT 16) 1.00 (OCT 13) 0.90 (JUL 07) Glu R H 172 (JUL 17) H 134 (OCT 16) H 213 (JUL 13) H 202 [...]
--- OUTSIDE RECORDS SUMMARY | 2025-09-06 08:13 | XMS_ITS | Data Portability ---
Author Organization [facility] - Jake devlin MD, Main Office Address [address] [place] [address] Care Team Providers Care Curing Supervisor Name Role Phone QUIRINO SENIOR Primary Care Provider Assessment No assessment recorded. Plan of Treatment Reminders Order Date Submit Date Provider Last Modified By Organization Details Last Modified Time Details Appointments None recorded. Lab None recorded. Referral None recorded. Procedures nerve conduction study/EMG (PROC) 2018 019 JOSE DAVID Núñez MD, [address], [place], [address], 9 09:45:43 Surgeries None recorded. Imaging MRI, brain, w/o contrast 2018 019 [facility], [address], [place], [address], 9 09:46:49 electroence phalogram 2018 019 [facility], [address] [facility], [address], [place], [address], 9 10:04:51 Medication Orders None recorded. Patient TargetsNo targets recorded. Patient Instructions Encounter Date Encounter Id Patient Instructions Last Modified By Organization Details Last Modified Time 04/26/2019 [id number] [facility] About Relief for Back Pain Not available 04/26/2019 10:00:34 Finding has been discussed with the patient and in detail. MRI scan of the brain without contrast EEG. EMG/NCV of the right leg. I will see her back in follow-up. Not available 04/26/2019 10:00:52 05/05/2019 [id number] Learning About Relief for Back Pain Not available 05/05/2019 11:13:22 MEMORY LOSS EDUCATION Not available 05/05/2019 11:13:22 05/05/2019 [id number] Learning About Relief for Back Pain Not available 05/05/2019 09:59:00 Altered Mental Status: Care Instructions Not available 05/05/2019 09:59:01 Finding has been discussed with the patient and her in detail. MRI scan of the brain. This will be done in couple weeks because she has difficulty laying on her back due to her right buttock pain. Continue aspirin and Plavix. We discussed confusion relating to pain medication use. She is to cut back on her narcotics. I will see her back in follow-up. Not available 05/05/2019 09:59:00 08/14/2023 [id number] Carpal Tunnel Syndrome: Care Instructions [email or web address] Not available 08/14/2023 15:03:03 Reason for Referral None Reported. Results Created Date Observation Date Name Description Value Unit Range Abnormal Flag Note LastModifiedBy Organization Detail LastModifiedTime 12/02/19 18 12/02/2017 elect roenc ephal ogram (EEG) , 41-60 minut es (PROC ) No observ ation record ed. BARCODE Jake Núñez MD [address] [facility] [address], [place], [address], 12/02/2017 09:19:20 12/05/19 18 12/03/2017 MRI, brain , w/o contr ast No observ ation record ed. [facility] [address] [facility] [address], [place], [address], 12/04/2017 15:10:43 12/05/19 18 12/03/2017 [place] No observ ation record ed. [facility] [address] [facility] [address], [place], [address], 12/04/2017 15:10:43 05/05/20 19 05/05/2019 nerve condu ction study /EMG (PROC ) No observ ation record ed. BARCODE Jake Núñez MD [address] [facility] [address], [place], [address], 05/05/2019 09:45:43 05/05/20 19 05/05/2019 elect roenc ephal ogram No observ ation record ed. BARCODE [facility] [address], [place], [address], 05/05/2019 10:04:51 06/03/20 19 06/02/2019 MRI, brain , w/o contr ast No observ ation record ed. [facility] [address], [place], [address], 06/03/2019 14:57:43 06/03/20 19 06/02/2019 MRI, lumba r spine , w/wo contr ast No observ ation record ed. [facility] [address], [place], [address], 06/03/2019 14:57:43 08/14/20 23 08/14/2023 elect romyo gram + nerve condu ction study No observ ation record ed. BARCODE Not Available 2022 15:08:08 Result Notes None recorded. Problems Name Problem SNOMED Code Status Onset Date Resolution Date Notes Provider Name and Address Organization Details Recorded Time Left carotid artery stenosis 6752987010824 03 Active 2017 M[facility] Johnson MD 8 07:32:42 Headache 45946197 Active 2017 M[facility] Johnson MD 8 07:32:50 Postconcuss ion syndrome 83447545 Active 2017 [facility] Johnson MD 8 07:33:04 Problem Notes None recorded. Procedures Surgical History Date Name Laterality Status Provider Name and Address Organization Details Recorded Time 3 NCV/EMG completed Zohaib Núñez MD 08/14/2023 15:01:08 9 NCV/EMG completed Zohaib Núñez MD 05/05/2019 09:42:41 9 EEG completed Zohaib Núñez MD 05/05/2019 09:42:39 8 EEG completed Zohaib Núñez MD 12/02/2017 09:07:26 Hip Surgery completed Torri Núñez MD 10/28/2017 13:05:56 Imaging Results None recorded. Procedure Notes None recorded. Medical Equipment None Reported. Allergies Allergen ID Allergen Name Allergen Category Reaction Reaction Severity Criticality Documentation Date Start Date Code Code System Note Provider Name and Address Organization Details Recorded Time 233 [facility] medicatio n Not available Not available Not available 10/28/2017 23773 5 RxNorm MOHINI Johnson MD 8 12:28:17 234 Non-stero idal anti-infl ammatory agent (substanc e) medicatio n Not available Not available Not available 10/28/2017 67299 5008 SNOMED MOHINI Johnson MD 8 12:28:30 Medications Name Sig Start Date Stop Date Status Note LastModified by Organization Details LastModified Time plastic bandages 10/28 completed Not Available Not Available Not Available ibuprofen 200mg active Not Available Not Available Not Available hydrocortis one 1% - 60 gm active Not Available Not Available Not Available aspirin low dose 81mg ec active Not Available Not Available Not Available acetaminoph en 500 mg active Not Available Not Available No t Available lidocaine patch 05/05 completed Not Available Not Available Not Available medicated callus remover 10/28 completed Not Available Not Available Not Available levocetiriz ine active Not Available Not Available Not Available naproxen sodium - 100 count 05/05 completed Not Available Not Available Not Available nasal decongestan t pe max stre 10/28 completed Not Available Not Available Not Available diabetic skin relief foot crea active Not Available Not Available No t Available loratadine 10mg active Not Available Not Available Not Available one a day womens multivitami n active Not Available Not Available Not Available cetirizine hcl 10mg 10/28 completed Not Available Not Available Not Available daily multivitami n and mineral active Not Available Not Available Not Available furosemide 40 mg tablet active Not Available Not Available Not Available methocarbam ol 500 mg tablet 1 tablet twice a day as needed for muscle spasm active Not Available Not Available No t Available promethazin e-DM 6.25 mg-15 mg/5 mL oral syrup TAKE 5 ML BY MOUTH AT BEDTIME NEEDED FOR 7 DAYS active Not Available Not Available No t Available nystatin 100,000 unit/mL oral suspension 04/26 completed Not Available Not Available Not Available prednisone 10 mg tablet 05/05 completed Not Available Not Available Not Available rabeprazole 20 mg tablet,kathryn yed release active Not Available Not Available Not Available azithromyci n 250 mg tablet TAKE 1 TABLET BY ORAL ROUTE ONCE DAILY FOR 4 DAYS active Not Available Not Available No t Available nifedipine ER 90 mg tablet,exte nded release active Not Available Not Available Not Available fluconazole 150 mg tablet active Not Available Not Available Not Available hydrocodone 5 mg-acetamin ophen 325 mg tablet TAKE 1 TABLET BY MOUTH THREE TIMES A DAY active Not Available Not Available No t Available ondansetron HCl 8 mg tablet TAKE 1 TABLET BY MOUTH 3 TIMES A DAY NEEDED active Not Available Not Available No t Available sucralfate 1 gram tablet active Not Available Not Available Not Available famotidine 40 mg tablet active Not Available Not Available Not Available clopidogrel 75 mg tablet TAKE 1 TABLET BY MOUTH EVERY DAY active Not Available Not Available No t Available ciprofloxac in 500 mg tablet 10/28 completed Not Available Not Available Not Available sulfamethox azole 800 mg-trimetho prim 160 mg tablet 04/26 completed Not Available Not Available Not Available hydrocodone 10 mg-acetamin ophen 325 mg tablet TAKE 1 TABLET BY MOUTH THREE TIMES A DAY 30 DAYS active Not Available Not Available No t Available tramadol 50 mg tablet TAKE 1 TABLET BY MOUTH TWICE A DAY NEEDED active Not Available Not Available No t Available fenofibrate micronized 134 mg capsule 10/28 completed Not Available Not Available Not Available oxycodone-a cetaminophe n 5 mg-325 mg tablet 04/26 completed Not Available Not Available Not Available oxycodone-a cetaminophe n 10 mg-325 mg tablet active Not Available Not Available No t Available nifedipine ER 90 mg tablet,exte nded release 24 hr TAKE 1 TABLET BY MOUTH EVERY DAY active Not Available Not Available No t Available benzonatate 100 mg capsule TAKE 1 CAPSULE BY MOUTH EVERY 8 HOURS NEEDED active Not Available Not Available No t Available hydrocodone 7.5 mg-acetamin ophen 325 mg tablet TAKE 1 TABLET BY MOUTH THREE TIMES A DAY NEEDED FOR SEVERE PAIN active Not Available Not Available No t Available cephalexin 500 mg capsule 04/26 completed Not Available Not Available Not Available pantoprazol e 40 mg tablet,kathryn yed release active Not Available Not Available Not Available oseltamivir 75 mg capsule 10/28 completed Not Available Not Available Not Available lidocaine 5 % topical patch APPLY 1 PATCH ONTO THE SKIN ONCE A DAY active Not Available Not Available No t Available promethazin e 25 mg tablet 10/28 completed Not Available Not Available Not Available metoprolol succinate ER 25 mg tablet,exte nded release 24 hr active Not Available Not Available Not Available levofloxaci n 500 mg tablet 04/26 completed Not Available Not Available Not Available lisinopril 40 mg tablet active Not Available Not Available Not Available ondansetron 4 mg disintegrat ing tablet active Not Available Not Available N ot Available fluticasone propionate 50 mcg/actuati on nasal spray,suspe nsion active Not Available Not Available Not Available Novolog Mix 70-30 FlexPen U-100 Insulin 100 unit/mL subcutaneou s pen active Not Available Not Available Not Available ezetimibe 10 mg tablet TAKE 1 TABLET BY MOUTH EVERY DAY FOR 90 DAYS active Not Available Not Available No t Available insulin aspart (U-100) 100 unit/mL (3 mL) subcutaneou s pen INJECT SUBCUTANE OUSLY PER SLIDINE SCALE 3 TIMES A DAY BEFORE MEALS active Not Available Not Available No t Available metoprolol tartrate 25 mg tablet active Not Available Not Available No t Available ORTHOVISC 30 mg/2 mL intra-artic ular syringe active Not Available Not Available Not Available duloxetine 60 mg capsule,del ayed release active Not Available Not Available Not Available omega-3 acid ethyl esters 1 gram capsule active Not Available Not Available Not Available cholecalcif judi (vitamin D3) 1,250 mcg (50,000 unit) capsule active Not Available Not Available Not Available Havrix (PF) 1,440 TALISHA unit/mL intramuscul ar syringe 05/05 completed Not Available Not Available Not Available Lantus Solostar U-100 Insulin 100 unit/mL (3 mL) subcutaneou s pen INJECT 65 UNITS UNDER THE SKIN EVERY DAY active Not Available Not Available No t Available Humalog KwikPen (U-100) Insulin 100 unit/mL subcutaneou s active Not Available Not Available Not Available oxycodone 10 mg tablet 04/26 completed Not Available Not Available Not Available BD Ultra-Fine Lucia Pen Needle 32 gauge x 32 04/26 completed Not Available Not Available Not Available Accu-Chek [place] Plus test strips active Not Available Not Available Not Available Accu-Chek Compact Plus Test Strips 04/26 completed Not Available Not Available Not Available Jardiance 25 mg tablet active Not Available Not Available Not Available Movantik 25 mg tablet active Not Available Not Available No t Available Phenohytro 16.2 mg-0.1037 mg-0.0194 mg tablet 05/05 completed Not Available Not Available Not Available Fluzone High-Dose 7014-6448 (PF) 180 mcg/0.5 mL intramuscul ar syringe active Not Available Not Available N ot Available Gemtesa 75 mg tablet TAKE 1 TABLET BY MOUTH EVERY DAY active Not Available Not Available No t Available Paxlovid 300 mg (150 mg x 2)-100 mg tablets in a dose pack TAKE DIRECTED active Not Available Not Available No t Available Vitals Date Recorded Body mass index (BMI) Body weight Heart rate Respiratory rate Systolic And Diastolic Provider Name and Address Organization Details Last Updated DateTime 12/02/2017 39.9 kg/m2 184864. 17 g 77 /min 17 /min 128/82 mm[Hg] Jake Núñez MD [address] [facility], [facility] [address], [place], [address], MOHINI Núñez MD 8 10:12:36 Date Recorded Body height Provider Name an d Address Organization Details Last Updated DateTime 12/02/2017 165.1 cm Torri Núñez MD 12/02/2017 07:32:13 Date Recorded Body height Body mass index (BMI) Body weight Heart rate Respiratory rate Systolic And Diastolic Provider Name and Address Organization Details Last Updated DateTime 9 165.1 cm 39.6 kg/m2 305483. 98 g 78 /min 16 /min 145/55 mm[Hg] Jake [facility] MD [address] [facility], [facility] [address], [place], [address] 0MOHINI MD 9 09:56:40 Date Recorded Body mass index (BMI) Body weight Heart rate Respiratory rate Systolic And Diastolic Provider Name and Address Organization Details Last Updated DateTime 05/05/2019 39.3 kg/m2 583335. 8 g 80 /min 17 /min 136/79 mm[Hg] Jake Núñez MD [address], [facility] [address], [place], [address]MOHINI MD 9 09:54:46 Date Recorded Body height Provider Name an d Address Organization Details Last Updated DateTime 05/05/2019 165.1 cm Yanet Soto MOHINI Núñez MD 05/05/2019 08:04:34 Social History Question Answer Notes LastModified by Organizat ion Details LastModified Time Tobacco Smoking Status Never Smoker Not Available [facility] 08/08/2020 03:34:29 Do You Have An Advance Directive? Yes [id number] Information not available 08/08/2020 Live Alone Or With Others? With Others [email or web address] Information not available 10/28/2017 What Was The Date Of Your Most Recent Tobacco Screening? 04/26/2019 [id number] Information not available 08/08/2020 Sex: Unknown Functional Status Question Answer Note LastModified by Organization D etails LastModified Time What is your level of alcohol consumption? None [id number] Information not available 08/08/2020 Mental Status None recorded. Family History Nothing Reported. Medical History Condition Response Neurological Problems Y Gynecological HistoryNo gynecological history recorded. Obstetrics History GPAL:G 0 P 0 0 0 0 Past Encounters Encounter ID Performer Location Encounter Start Date Encounter Closed Date Diagnosis/Indication Diagnosis SNOMED-CT Code Diagnosis ICD10 Code Diagnosis IMO Codes Diagnosis Note [id number] Jake Núñez MD Main Office [address] [place] [address] 10/28/2017 12:20:32 10/28/2017 13:14:50 Counseling 796310220 Z71.9 Headache 83993706 R51 The patient is a 67-year-ol d white female who has headaches since she fell and hit her head inn [place]. Postconcus too syndrome 94984325 F07.81 She has memory loss from postconcus too syndrome Left carot id artery stenosis 4489808648 64466 I65.22 She had a history of CVA and left carotid occlusion. [id number] Jake Núñez MD Main Office [address] [facility], [address] [address] 12/02/2017 07:27:44 12/02/2017 09:09:53 Postconcussion syndrome 25642307 F07.81 She has memory loss from postconcus too syndrome. EEG today is unremarkab le. [id number] Jake Núñez MD Main Office [address], [address] [address] 12/02/2017 07:28:48 12/02/2017 09:08:22 Poor short-term memory 815921722 R41.3 [id number] Jake Núñez MD Main Office [address], [address] [address] 04/26/2019 09:13:48 04/26/2019 10:03:40 Confusional state 184627458 F44.89 The patient is a 68-year-ol d white female who has recent onset confusion. CVA versus seizure disorder. Lumbosacra l radiculopathy 3983087 M54.16 She also has lingering right L4-L5 radiculopa thy. [id number] Jake Núñez MD Main Office [address], [address] [address] 05/05/2019 08:02:38 05/05/2019 09:54:17 Altered mental status 537902128 R41.82 The patient is a 68-year-ol d white female who has confusion. Etiology is likely related to her medication including oxycodone and hydrocodon e which she takes for pain. I cannot exclude recurrent CVA. Left carot id artery occlusion 5692654728 80944 I65.22 She had a left MCA CVA stroke. Lumbosacra l radiculopathy 4795620 M54.16 She also has lingering right S1 radiculopa thy. [id number] Jake Núñez MD Main Office [address] [place] [address] 05/05/2019 08:03:50 05/05/2019 09:45:03 Poor short-term memory 785245835 R41.3 Lumbar radiculopathy 128 410032 M54.16 Acute and chronic right S1 radiculopa thy. [id number] Jake Núñez MD Main Office [address] [place] [address] 08/14/2023 13:40:58 08/14/2023 15:04:27 Bilateral carpal tunnel syndrome 0627707345 3297264 G56.03 Moderate to severe left, mild right CTS. Health Concerns Section Related Observation LastModified by Organization Detai ls LastModified Time None Recorded Concern Status LastModified by Organization Details LastModified Time None Recorded Advance Directives Directive Y: Payers Insurance Date Sequence Insurance Name Policy Number Policy Sanchez Covered Member ID Sanchez Member ID Guarantor Name 08/11/2023 1 [employer] - GOLD PLUS (MEDICARE REPLACEMENT/A DVANTAGE - HMO) Adrienne Savage [id number] Adrienne Savage Notes Date Note Type Note Provider Name and Address Organization Details Recorded Time 12/02/2017 text/html ROS as noted in the HPI Mrs. Savage is a 67-year-old white female. She had a concussion from falling down steps while she was vacationing in [facility]. She had a postconcussion syndrome. She has memory loss. She returned today for EEG which is a normal study. She is to have MRI scan of the brain. She also gave a history of left carotid occlusion with stroke. She is scheduled to have a repeat carotid ultrasound. She returned today with her for follow up. Jake Núñez MD [address], [facility] [address], [place], [address], [facility] - Jake Núñez MD 12/02/2017 10:16:43 04/26/2019 text/html ROS as noted in the HPI Mrs. Savage is a 68-year-old white female. She had a history of left carotid occlusion and left MCA CVA. She returned today with her because of confusion. She can no longer give herself her insulin shot. She had difficulty operating the TV remote. She had back surgery 3 weeks ago. She has recurrent back pain radiates to her right leg. She is confused. She has difficulty following simple commands. She is insulin-dependent diabetic. She takes Plavix. She also has a history of hypertension and hyperlipidemia. She was in the emergency room for confusion. Her blood work was unremarkable. She was tested positive for Valium which she takes for muscle spasm. MD [address], [facility] [address], [place], [address], [place] - Jake Núñez MD 04/26/2019 10:01:30 05/05/2019 text/html ROS as noted in the HPI Mrs. Savage is a 68-year-old white female. She is a insulin-dependent diabetic. She had a occluded left carotid artery and left MCA stroke. She returned today with her because of confusion and lingering right leg pain. She is status post lumbar spinal surgery by Dr. Lucas. She felt at home and she has significant bruising in her right hip. She is confused according to her . She has difficulty giving herself insulin injection and operating a TV remote. Her EEG showed generalized slowing. EMG/NCV showed acute and chronic right S1 radiculopathy. She is using oxycodone and hydrocodone for pain. She is on Plavix and aspirin for CVA. MD [address], [place], [address], [place] - Jake Núñez MD 05/05/2019 09:59:46 OBGyn Episode No OBEpisode recorded.
--- OUTSIDE RECORDS SUMMARY | 2025-09-06 08:13 | XMS_ITS | Encounter Summary ---
Author Organization [employer] ([place], [place], [place], [place], [place]) Address [address] [place] [address] Care Team Providers Care Emergency Preparedness Coordinator Name Role Phone Unavailable Primary Care Provider Unavailabl e Encounter Details Date Type Department Care Team (Late st Contact Info) Description 07/09/2019 Transcribed Document [facility] [place] [facility] [address] [place] [address] ProviderChano MD [address] [phone] Social History Tobacco Use Types Packs/Day Years [...] form. Electronically signed by Julian Wheeler Conversion Student Outreach Coordinator Cerner at 01/23/2023 1:39 PM CDT documented in this encounter Plan of Treatment Not on file documented as of this encounter Visit Diagnoses Not on filedocumented in this encounter
--- OUTSIDE RECORDS SUMMARY | 2025-09-06 08:13 | XMS_ITS | Encounter Summary ---
Author Organization [employer] ([place], [place], [place], [place], [place]) Address [address] [place] [address] Care Team Providers Care Lens Edge Grinder Machine Name Role Phone Unavailable Primary Care Provider Unavailabl e Encounter Details Date Type Department Care Team (Late st Contact Info) Description 07/26/2019 Transcribed Document [facility] Family Medicine [address] [place] [address] ProviderChano MD [address], [place] [id number] Social History Tobacco Use Types Packs/Day Years [...] On: 07/26/2019 16:14 EDT by HORACIO ACHARYA RN-BiochemistScreener And Blender Progress Note Discharge Arrangements : Patient Post-Acute Information Patient Name: ADRIENNE ANTONIO Gender: Female : [birth year] Age: 68 Years No Post-Acute Placement(s) Listed No Post-Acute Service(s) Listed No Curaspan Referral(s) Listed Barriers to Discharge Identified : Clinical Condition of Patient Barriers to Discharge Unresolved : Clinical Condition of Patient Referral Indicators For Complex SWK Interventions : Behavorial or psychiatric issues HORACIO ACHARYA RN-Biochemist - 07/26/2019 16:14 EDT Narrative Progress Note Narrative Progress Note : Referrals resent to [facility] in [place] and spoke to admissions. No beds as of now, but they will look at referral to determine if able to offer a bed when one comes available. Resenreferral to [facility] as well, they are looking at pt again. Sent referral to Luis Bradshaw. Daughter Alma Rosa found a psych facility in [place]--[facility] and got a lithography contact worker--Joey Barriga ([phone]). Referral sent via [employer] and informed intake as well as had discussion with Joey regarding pt. CM will continue to follow. Historical Progress Note : MRI-(-). U/A-pyuria. No abx per Dr. Jama. Pt even more confused today, refusing therapy and meds. Pt is paranoid thinking people are trying to give her things against her will. More updates and test results sent to [facility] and spoke to Monisha. Pt has been [...] CM will contniue to follow. HORACIO ACHARYA RN-Biochemist - 07/23/19 17:17:27 Pt's confusion is worse. She is unable to use utensils and is using her hands to eat. Nuero reconsulted. Labs/urine sent. [facility] called asking if pt still needed placement. Eugenie Monsivais met with pt at bedside and feels pt would do better if went to psych unit prior to rehab. Spoke to Urvashi at [facility] and sent updates to her. She states pt has to be medically ready for dc before she can given MD referral. Pt is not ready today. D/W Dr. Reid, pt's daughter, spouse, and bedside RN. CM will contniue to follow. HORACIO ACHARYA RN-Biochemist - 07/23/19 17:13:59 Lisbeth met with pt and family at bedside, but her boss has declined admission. Spoke to Yodit with [facility], she can offer at all 3 in [place], and [place]. They chose [facility] initiated. CM will continue to follow. HORACIO ACHARYA RN-Biochemist - 07/21/19 14:38:34 Pt was referred to 18 debbie/psych facilities by [facility]. All have declined admission, some stating she needs physical rehab and/or does not have any acute issues for psych admission. Spouse agreeable to try for SNF admission since she is still requiring assistance with ADL's and bed mobility. He chose [facility], [facility] [place], and [facility]. Referrals sent via [employer]. Spoke to Lisbeth with the [facility]. She states they have a gum scoring machine operator that can see pt at the facility. She will need to come do a bedside eval. D/W Dr. Horner as well. CM will continue to follow. HORACIO ACHARYA RN-Biochemist - 07/20/19 15:47:15 [facility] consulted. They received [...] CM will continue to follow. HORACIO ACHARYA RN-Biochemist - 07/19/19 15:10:43 [facility] eval for inpatient psych on Thursday 07/19. CM will continue to follow. HORACIO ACHARYA RN-Biochemist - 07/16/19 12:46:58 [facility] declined admission to their psych unit. No word from [facility]. Met with pt's daughter and had lengthy discussion regarding disposition. CM will consult MARINA at time of dc for help with admission to debbie-psych unit somewhere. D/W Dr. Horner and Dr. Jama. CM will continue to follow. HORACIO ACHARYA RN-Biochemist - 07/15/19 14:03:13 Spoke to pt's spouse Kian on the phone today. 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 He states he does not want her going to those places as she kows people there. He agrees to referrals to [facility] and [facility] inpatient psych units. Referral sent and spoke to JUSTA Perez at [facility] and Yaa-lost charge card clerk at [facility]. CM will continue to follow. HORACIO ACHARYA RN-Biochemist - 07/14/19 13:36:43 Dr. Valdez consult this [...] CM will continue to follow. HORACIO ACHARYA RN-Biochemist - 07/13/19 17:41:20 psych consult referral faxed to Dr. Valdez's office to assess for psychosis. SANJIV VOGT RN-Biochemist - 07/11/19 16:14:26 HORACIO ACHARYA RN-Biochemist - 07/26/2019 16:14 EDT documented in this encounter Plan of Treatment Not on file documented as of this encounter Visit Diagnoses Not on filedocumented in this encounter
--- OUTSIDE RECORDS SUMMARY | 2025-09-06 08:13 | XMS_ITS | Encounter Summary ---
Author Organization [employer] ([place], [place], [place], [place], [place]) Address [address] [place] [address] Care Team Providers Care Sales Representative Printing Paper Name Role Phone Unavailable Primary Care Provider Unavailabl e Encounter Details Date Type Department Care Team (Late st Contact Info) Description 07/24/2019 Transcribed Document [facility] Radiology [address] [place] [address] Abby Reid MD [address] [place] [address] [place] [id number] Social History Tobacco Use Types Packs/Day Years [...] chew) Flonase 0.05 mg/inh nasal spray: 2 [place], Nasal, Daily, 16 Gram, 0 Refill(s) Lantus [...] Bedtime Flonase 0.05 mg/inh nasal spray 2 [place], Nasal, Daily gabapentin 300 mg oral capsule [...] Problem list: Medical Pain//chronic / SNOMED CT 987147074 / Confirmed At risk for sleep apnea / IMO 61320037 / Confirmed Back pain / SNOMED CT 5096229049 / Confirmed Cataract///beginning stage / SNOMED CT 806729902 / Confirmed Chest pain///cath negative / SNOMED CT 01125807 / Confirmed Completely occulded L carotid / SNOMED CT 9374492105 / Confirmed Lumbar disc disease / SNOMED CT 7973745330 / Confirmed Fibromyalgia / SNOMED CT 106534227 / Confirmed Hiatal hernia / SNOMED CT 176414810 / Complaint of H/O ischemic left MCA stroke / SNOMED CT 2494763018 / Confirmed Memory deficit///slow recall / SNOMED CT 8381044340 / Confirmed Numbness and tingling//right leg / SNOMED CT 2104109957 / Confirmed Obesity / SNOMED CT 5778618716 / Confirmed Right leg pain / SNOMED CT 3236264742 / Confirmed Colon polyps / SNOMED CT 324682764 / Confirmed Sleep apnea///risk / SNOMED CT 380127881 / Confirmed Wears glasses / SNOMED CT 774465037 / Confirmed, Active Problems (24) Acid reflux [...] L 2.7 (JUL 16) L 2.8 (JUL 12) L 3.1 (JUL 09) L 3.2 (JUL 03) Radiology Results (Last 48 hours) [id number] -- 07/11/2019 09:51 MRI Brain WO (07/22/2019 [...]
--- OUTSIDE RECORDS SUMMARY | 2025-09-06 08:13 | XMS_ITS | Encounter Summary ---
Author Organization [employer] ([place], [place], [place], [place], [place]) Address [address] [place] [address] Care Team Providers Care Steward Dishwasher Name Role Phone Unavailable Primary Care Provider Unavailabl e Encounter Details Date Type Department Care Team (Late st Contact Info) Description 07/09/2019 Transcribed Document [facility] [place] Medicine [address] [place] [address] ProviderChano MD [address], [place] [id number] Social History Tobacco Use Types Packs/Day Years [...]
--- OUTSIDE RECORDS SUMMARY | 2025-09-06 08:13 | XMS_ITS | Encounter Summary ---
Author Organization [employer] ([place], [place], [place], [place], [place]) Address [address] [place] [address] Care Team Providers Care Supervisor Stock [place] Name Role Phone Unavailable Primary Care Provider Unavailabl e Encounter Details Date Type Department Care Team (Late st Contact Info) Description 07/25/2019 Transcribed Document [facility] Radiology [address] [place] [address] Abby Reid MD [address] [place] [address] [place] [id number] Social History Tobacco Use Types Packs/Day Years [...] chew) Flonase 0.05 mg/inh nasal spray: 2 [place], Nasal, Daily, 16 Gram, 0 Refill(s) Lantus [...] Bedtime Flonase 0.05 mg/inh nasal spray 2 [place], Nasal, Daily gabapentin 300 mg oral capsule [...] Problem list: Medical Pain//chronic / SNOMED CT 084091997 / Confirmed At risk for sleep apnea / IMO 21897776 / Confirmed Back pain / SNOMED CT 8214302311 / Confirmed Cataract///beginning stage / SNOMED CT 596645836 / Confirmed Chest pain///cath negative / SNOMED CT 39509948 / Confirmed Completely occulded L carotid / SNOMED CT 3673262134 / Confirmed Lumbar disc disease / SNOMED CT 3328457183 / Confirmed Fibromyalgia / SNOMED CT 130510750 / Confirmed Hiatal hernia / SNOMED CT 989199502 / Complaint of H/O ischemic left MCA stroke / SNOMED CT 4853184972 / Confirmed Memory deficit///slow recall / SNOMED CT 3741194424 / Confirmed Numbness and tingling//right leg / SNOMED CT 4264193868 / Confirmed Obesity / SNOMED CT 6534491501 / Confirmed Right leg pain / SNOMED CT 6042247442 / Confirmed Colon polyps / SNOMED CT 978506571 / Confirmed Sleep apnea///risk / SNOMED CT 630165805 / Confirmed Wears glasses / SNOMED CT 190519133 / Confirmed, Active Problems (24) Acid reflux [...]
--- OUTSIDE RECORDS SUMMARY | 2025-09-06 08:14 | XMS_ITS | Encounter Summary ---
Author Organization [employer] ([place], [place], [place], [place], [place]) Address [address] [place] [address] Care Team Providers Care Mr Teacher Name Role Phone Unavailable Primary Care Provider Unavailabl e Encounter Details Date Type Department Care Team (Late st Contact Info) Description 07/26/2019 Transcribed Document [facility] [place] [address] [place] [address] ProviderChano MD [address], [place] [phone] Social History Tobacco Use Types Packs/Day Years [...]
--- OUTSIDE RECORDS SUMMARY | 2025-09-06 08:14 | XMS_ITS | Encounter Summary ---
Author Organization [employer] ([place], [place], [place], [place], [place]) Address [address] [place] [address] Care Team Providers Care Emt I/85 Name Role Phone Unavailable Primary Care Provider Unavailabl e Encounter Details Date Type Department Care Team (Late st Contact Info) Description 07/08/2019 Transcribed Document [facility] [place] [address] [place] [address] ProviderChano MD [address], [place] [id number] Social History Tobacco Use Types Packs/Day Years [...]
--- OUTSIDE RECORDS SUMMARY | 2025-09-06 08:14 | XMS_ITS | Encounter Summary ---
Author Organization [employer] ([place], [place], [place], [place], [place]) Address [address] [place] [address] Care Team Providers Care Aluminum Welder Name Role Phone Unavailable Primary Care Provider Unavailabl e Encounter Details Date Type Department Care Team (Late st Contact Info) Description 07/09/2019 Transcribed Document [facility] [place] [address] [place] [address] ProviderChano MD [address], [place] [phone] Social History Tobacco Use Types Packs/Day Years [...] On: 07/10/2019 9:37 EDT by GILMA SERNA, OTR/Rob General Information, OT Visit Type, OT : [...] TO BUE SECONDARY TO TYPE OF SX [GILMA SERNA, OTR/L - 07/10/2019 10:08 EDT] ) DAPHNE JENISEPRIMITIVO OTR/L - 07/10/2019 10:08 EDT RadialDeviation 0-20 LUE Shoulder Flexion 0-180 : 3/fair DAPHNE JENISEPRIMITIVO OTR/L - 07/10/2019 10:08 EDT Fine Motor Coordination Impaired : No GILMA SERNA, OTR/L - 07/10/2019 10:08 EDT Self Care/Home [...] Bed Roll Right : Rehab Maximal assistance GILMA SERNA OTR/L - 07/10/2019 10:08 EDT Bed Comment [...] GILMA SERNA OTR/L - 07/10/2019 10:08 EDT Residential Goals, OT Toileting LTG Grid Goal #1 [...] the text rendition version of the form. [place] OT Charges OT Eval Low Complexity : 1 GILMA SERNA OTR/Rob - 07/10/2019 10:08 EDT documented in this encounter Plan of Treatment Not on file documented as of this encounter Visit Diagnoses Not on filedocumented in this encounter
--- OUTSIDE RECORDS SUMMARY | 2025-09-06 08:14 | XMS_ITS | Encounter Summary ---
Author Organization [employer] ([place], [place], [place], [place], [place]) Address [address] [place] [address] Care Team Providers Care Fuel Yard Operator Name Role Phone Unavailable Primary Care Provider Unavailabl e Encounter Details Date Type Department Care Team (Late st Contact Info) Description 07/23/2019 Transcribed Document [facility] Family Medicine [facility] [place] [address] ProviderChano MD [address] [place], [place] [phone] Social History Tobacco Use Types Packs/Day Years [...] Performed On: 07/23/2019 17:14 EDT by HORACIO ACHARAY RN-Pacu NurseDigital X Ray Service Engineer Progress Note Discharge Arrangements : Patient Post-Acute Information Patient Name: ADRIENNE ANTONIO Gender: Female : [birth year] Age: 68 Years No Post-Acute Placement(s) Listed No Post-Acute Service(s) Listed No Curaspan Referral(s) Listed Barriers to Discharge Identified : Clinical Condition of Patient Barriers to Discharge Unresolved : Clinical Condition of Patient Is the Patient Meeting Medical Necessity : Yes HORACIO ACHARYA RN-Pacu Nurse - 07/23/2019 17:14 EDT Narrative Progress Note Narrative Progress Note : MRI-(-). U/A-pyuria. No abx per Dr. Jama. Pt even more confused today, refusing therapy and meds. Pt is paranoid thinking people are trying to give her things against her will. More updates and test results sent to [facility] and spoke to Monisha. Pt has been [...] hands to eat. Nuero reconsulted. Labs/urine sent. [facility] called asking if pt still needed placement. Eugenie Monsivais met with pt at bedside and feels pt would do better if went to psych unit prior to rehab. Spoke to Urvashi at [facility]Psych unit and sent updates to her. She states pt has to be medically ready for dc before she can given MD referral. Pt is not ready today. D/W Dr. Reid, pt's daughter, spouse, and bedside RN. CM will contniue to follow. HORACIO ACHARYA RN-Pacu Nurse - 07/23/19 17:13:59 Lisbeth met with pt and family at bedside, but her boss has declined admission. Spoke to Yodit with [facility], she can offer at all 3 in [place] and [place] They chose [facility] initiated. CM will continue to follow. HORACIO ACHARYA RN-Pacu Nurse - 07/21/19 14:38:34 Pt was referred to 18 debbie/psych facilities by [facility]. All have declined admission, some stating she needs physical rehab and/or does not have any acute issues for psych admission. Spouse agreeable to try for SNF admission since she is still requiring assistance with ADL's and bed mobility. He chose [facility], [facility], and [facility]. Referrals sent via [employer]. Spoke to Lisbeth with the [facility] [place]. She states they have a channel process supervisor that can see pt at the facility. She will need to come do a bedside eval. D/W Dr. Horner as well. CM will continue to follow. HORACIO ACHARYA RN-Pacu Nurse - 07/20/19 15:47:15 [facility] consulted. They received [...] CM will continue to follow. HORACIO ACHARYA RN-Pacu Nurse - 07/19/19 15:10:43 [facility] eval for inpatient psych on Thursday 07/19. CM will continue to follow. HORACIO ACHARYA RN-Pacu Nurse - 07/16/19 12:46:58 [facility] declined admission to their psych unit. No word from [facility]. Met with pt's daughter and had lengthy discussion regarding disposition. CM will consult [facility] at time of dc for help with admission to debbie-psych unit somewhere. D/W Dr. Horner and Dr. Jama. CM will continue to follow. HORACIO ACHARYA RN-Pacu Nurse - 07/15/19 14:03:13 Spoke to pt's spouse Kian on the phone today. 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 He states he does not want her going to those places as she kows people there. He agrees to referrals to [facility] and [facility] inpatient psych units. Referral sent and spoke to JUSTA Perez at [facility] and Yaa-charge coordinator at [facility]. CM will continue to follow. HORACIO ACHARYA RN-Pacu Nurse - 07/14/19 13:36:43 Dr. Valdez consult this [...] CM will continue to follow. HORACIO ACHARYA RN-Pacu Nurse - 07/13/19 17:41:20 psych consult referral faxed to Dr. Valdez's office to assess for psychosis. SANJIV VOGT RN-Pacu Nurse - 07/11/19 16:14:26 HORACIO ACHARYA RN-Pacu Nurse - 07/23/2019 17:14 EDT documented in this encounter Plan of Treatment Not on file documented as of this encounter Visit Diagnoses Not on filedocumented in this encounter
--- OUTSIDE RECORDS SUMMARY | 2025-09-06 08:14 | XMS_ITS | Encounter Summary ---
Author Organization [employer] ([place], [place], [place], [place], [place]) Address [address] [place] [address] Care Team Providers Care Director Of Teaching And Learning Name Role Phone Unavailable Primary Care Provider Unavailabl e Encounter Details Date Type Department Care Team (Late st Contact Info) Description 07/08/2019 Transcribed Document [facility] [place] [facility] [place] [address] ProviderChano MD [facility] [place], [place] [id number] Social History Tobacco Use Types Packs/Day Years Used Date Smoking Tobacco: Never Assessed Comments Unknown Sex and Gender Information Value Date Recorded Sex Assigned at Not on file Legal Sex Female 2:07 PM CDT Gender Identity Not on file Sexual Orientation Not on file documented as of this encounter Miscellaneous Notes * Cerner Conversion Note - Historical ProviderMD - 07/08/2019 9:49 PM CDT Admission History, Adult Entered On: 07/09/2019 12:26 EDT Performed On: 07/08/2019 21:49 EDT by MARGE GRIFFIN RN Advance Directive Patient has Advance Directive *Q : No, patient refuses Advance Directive information MARGE GRIFFIN RN - 07/09/2019 11:56 EDT Anesthesia/Transfusion History Family History of Anesthesia Reaction : No prior transfusion(s) Blood Transfusion Acceptable to Patient : Yes Transfusion History : Prior anesthesia without reaction Family History of Anesthesia Reaction : None MARGE GRIFFIN RN - 07/09/2019 11:56 EDT Anticipated Discharge Needs Discharge To, Anticipated : Rehabilitation unit/facility Anticipated Discharge Needs at This Time : Physical Therapy MARGE GRIFFIN RN - 07/09/2019 11:56 EDT Functional Assessment Living Situation : Home Patient Lives With : Spouse Persons Assisting Patient at Home : Spouse Current Daily Living Assistance : None Mobility Assistance Prior to Admission : Independent Current Home Treatments : None Professional Skilled Services : None Special Services and Community Resources : None MARGE GRIFFIN RN - 07/09/2019 11:56 EDT General Info Preferred Name : Adrienne Arrived From : Home Mode of Arrival on Unit : Ambulatory Legal Guardian : Responsible adult Legal Guardian : No Support Person/Patient Hog Driver : No Support Person/Pt Rep Name : kian Savage - spouse Support Person/Pt Rep Contact Information : [phone] Want Family/Rep/Phys Notified of Admit : No [...] Obtained From : Patient Primary Language : Botswanan Preferred Communication Mode : Verbal Communication Barrier : None MARGE GRIFFIN RN - 07/09/2019 11:56 EDT Fall Risk Scales ABCs Fall Injury Risk Identification : None Injury Moderate to High Risk Interventions : High Risk for Fall Injury sign in place per policy JAMA Hx Falls Immediate/Within 3 Months : Yes Jama Secondary Diagnosis : Yes JAMA Use of Ambulatory Aid : Bed rest/Nurse assist JAMA IV Therapy or IV Access : Yes Sulma Gait/Transferring : Impaired Sulma Mental Status : Overestimates/Forgets limitations Jama Fall Risk Score : 95 JAMA Fall Scale Risk Level : 46 or > High Risk [place] Fall Interventions : Adequate lighting, Assistive devices within reach, Bed in low position, Call device within reach, Frequent orientation to call device, Frequent orientation to surroundings, Hourly comfort/safety rounds, Non-slip footwear, Personal items within reach, Reinforced to call for assistance before getting out of bed, Room free of clutter/spills, Upper side-rails up, Wheels locked, Wires/Cords secured Fall Moderate to High Risk Interventions : High Risk for Fall sign in place per policy Fall Risk Scale Calc Temp : 1 MARGE GRIFFIN RN - 07/09/2019 11:56 EDT Health Histories Smoking Status : Former smoker, quit more than 30 days ago Smokeless Tobacco Status : Never MARGE GRIFFIN RN - 07/09/2019 11:56 EDT Social History (As Of: 07/09/2019 12:26:31 EDT) Tobacco: Use in Last 12 Months: [...] TRINIDAD, ED Nurse) Employment/School: Retired, Previous employment/school: [employer]. (Last Updated: 07/17/2014 00:15:13 EDT by KATIE TRINIDAD, ED Nurse) Height and Weight, Clinical Dosing Height Source : Stated Height Entry Format : Izard Height, Feet : 5 ft(Converted to: 152 cm, 60 Inch) Height, Inches : 4 Inch(Converted to: 0 ft 4 Inch, 10.16 cm) Clinical Height : 162.56 cm Weight Source : Standing scale Weight Entry Format : Izard Clinical Dosing Weight : 113.64 kg Weight, Pounds : 250 lb Body Surface Area (BSA) : 2.15 m2 Body Mass Index : 43 kg/m2 (>HHI) [place] Body Weight : 54 kg MARGE GRIFFIN RN - 07/09/2019 11:56 EDT Infectious Disease History Infectious Disease History : Chicken pox/Shingles, Measles, Mumps Active Surveillance Screen Assessment : Patient does not meet any of above criteria Active Surveillance Screen Negative : Yes Fever/Chills Last 48 Hours : Yes Experiencing Infectious Disease Symptoms : Vomiting Travel To Regions with Travel Advisories : No Travel Outside [place] Within Last 30 Days : No Contact With Traveler to Advisory Region : No Tuberculosis Symptoms : None MRAGE GRIFFIN RN - 07/09/2019 11:56 EDT Tetanus Immunization Status Previous Tetanus Immunizations : No qualifying data available. Tetanus Immunization : Less than 5 years MARGE GRIFFIN RN - 07/09/2019 11:56 EDT Influenza Vaccine Asmt, Adult Previous Vaccines from Immunization Schedule : No qualifying data available. Influenza Immunization, Current Season : No Inactivated Flu Vaccine Contraindications : No contraindications to inactivated influenza vaccine Transplant Workup/Recent Transplant : No Order for Influenza Vaccine : Declined Vaccination MARGE GRIFFIN RN - 07/09/2019 11:56 EDT Pneumococcal Vaccine Previous Vaccines from Immunization Schedule : No qualifying data available. Pneumonia Immunization Received : Yes MARGE GRIFFIN RN - 07/09/2019 11:56 EDT Order Details Transport Mode Order Detail : Wheelchair Isolation Precautions Order Detail : Standard Precautions Order Detail : 0 IV Order Detail : 1 Oxygen Order Detail : 0 Nurse Collect Order Detail : 0 Lift/Transfer : Maximal assist Central Line Order Detail : No Room Service : Needs Assistance Arterial Line : No MARGE GRIFFIN RN - 07/09/2019 11:56 EDT Nutrition History Feeding Ability : Independent Adaptive Feeding Equipment : Diabetic Eating Poorly Due to Decreased Appetite : No Unplanned Weight Loss in Past 3-6 Months : No Malnutrition Screening Tool Total(mal) : 0 Malnutrition Screening Tool Risk Level : Patient not at risk MARGE GRIFFIN RN - 07/09/2019 11:56 EDT Psychosocial History Do You Have a History of the Following? : Patient denies history Currently in Unsafe Situation : No Tried to Harm Yourself in the Past? : No Thoughts of Harming/Killing Yourself : No MARGE GRIFFIN RN - 07/09/2019 11:56 EDT Sleep Apnea Risk Assmt Hx of [...] Sleep Apnea Risk Level Score : 7 MARGE GRIFFIN RN - 07/09/2019 11:56 EDT Spiritual/Cultural Needs Any Spiritual/Cultural Needs or Requests : No Jain Preference : [employer] MARGE GRIFFIN RN - 07/09/2019 11:56 EDT Valuables and Belongings Valuables and Belongings : Clothing, Personal devices Clothing : Common streetwear Clothing Disposition : With patient Personal Device Disposition : With patient Personal Devices : Dentures, upper ELIASMARGE RN - 07/09/2019 11:56 EDT Electronically signed by Summer [facility] Conversion Broadcast Supervisor Cerner at 01/23/2023 1:18 PM CDT documented in this encounter Plan of Treatment Not on file documented as of this encounter Visit Diagnoses Not on filedocumented in this encounter
--- OUTSIDE RECORDS SUMMARY | 2025-09-06 08:14 | XMS_ITS | Encounter Summary ---
Author Organization [employer] ([place], [place], [place], [place], [place]) Address [address] [place] [address] Care Team Providers Care Promotions Executive Producer Name Role Phone Unavailable Primary Care Provider Unavailabl e Encounter Details Date Type Department Care Team (Late st Contact Info) Description 07/08/2019 Transcribed Document [facility] [place] [facility] [place] [address] ProviderChano MD [address] [place] [id number] Social History Tobacco Use Types Packs/Day Years Used Date Smoking Tobacco: Never Assessed Comments Unknown Sex and Gender Information Value Date Recorded Sex Assigned at Not on file Legal Sex Female 2:07 PM CDT Gender Identity Not on file Sexual Orientation Not on file documented as of this encounter Miscellaneous Notes * Cerner Conversion Note - Historical ProviderMD - 07/08/2019 7:48 PM CDT Patient: [...] chew) Flonase 0.05 mg/inh nasal spray: 2 [place], Nasal, Daily, 16 Gram, 0 Refill(s) Lantus: [...] and left shoulder repair. achilles repair. Appendectomy ([id number]). Cholecystectomy ([id number]). Tonsillectomy ([id number])., Reviewed as documented in chart. Family history: No family history items have been selected or recorded., Reviewed as documented in chart. Social history: Social & Psychosocial Habits Alcohol 06/24/2013 Alcohol Use in Last Twelve Months No Employment/School 07/17/2014 Status: Retired Previous employment/school: [employer] Home/Environment 07/17/2014 Lives with: Spouse Living situation: [...] EDT Height Source Stated Height Entry Format Tate Height/Length, BENGALI (ft) 5 ft Height/Length BENGALI 4 Inch CLINICALHEIGHT 162.56 cm [place] Body Weight 54.3 kg Weight Source, ED Critical estimated dosing weight Weight Entry Format Tate Weight Gambian lb 210 lb CLINICALWEIGHT 95.45 kg Body [...] % 39.7 % Lymph # 3.62 x10(3)/uL Harvey % 8.1 % Harvey # 0.74 K/uL Eos % 2.6 % Eos # 0.24 x10(3)/uL Baso % 0.7 % Baso # 0.06 x10(3)/uL Sed Rate Auto 48 mm/Hr HI Slide Review No IG# 0.04 x10(3)/uL IG% 0.40 % PT 10.1 Second(s) INR 0.9 PTT 28.0 Second(s) Urine Type. U CleanCatch Urine Color Yellow Urine Appearance ERROR Urine Specific [place] 1.013 Urine pH Dipstick 5.5 LOW Urine [...] Radiology results: Radiology Results (Last 48 hours) [id number] -- 07/08/2019 14:38 CT Spine Lumbar WO [...] I discussed these findings with Dr. Lucas terminal operations supervisor for neurosurgery and the patient's surgeon and [...] the level of her pain is well. Electronically signed by Julian Wheeler Conversion Jewelry Casting Model Maker Apprentice Cerner at 01/23/2023 1:29 PM CDT documented in this encounter Plan of Treatment Not on file documented as of this encounter Visit Diagnoses Not on filedocumented in this encounter
--- OUTSIDE RECORDS SUMMARY | 2025-09-06 08:14 | XMS_ITS | Encounter Summary ---
Author Organization [employer] ([place], [place], [place], [place], [place]) Address [address] [place] [address] Care Team Providers Care Beam House Inspector Name Role Phone Unavailable Primary Care Provider Unavailabl e Encounter Details Date Type Department Care Team (Late st Contact Info) Description 07/23/2019 Transcribed Document [facility] [place] [facility] [place] [address] ProviderChano MD [address] [place], [place] [phone] Social History Tobacco Use Types Packs/Day Years [...]
--- OUTSIDE RECORDS SUMMARY | 2025-09-06 08:14 | XMS_ITS | Encounter Summary ---
Author Organization [employer] ([place], [place], [place], [place], [place]) Address [address] [place] [address] Care Team Providers Care Equipment Records Supervisor Name Role Phone Unavailable Primary Care Provider Unavailabl e Encounter Details Date Type Department Care Team (Late st Contact Info) Description 07/08/2019 Transcribed Document [facility] [place] Family Medicine [address] [place] [address] ProviderChano MD [address] [place], [place] [phone] Social History Tobacco Use Types Packs/Day Years [...] Communication Barrier : None Primary Language : Tristanian Any Spiritual/Cultural Needs or Requests : No [...] TRINIDAD, ED Nurse) Employment/School: Retired, Previous employment/school: [employer]. (Last Updated: 07/17/2014 00:15:13 EDT by KATIE [...]
--- OUTSIDE RECORDS SUMMARY | 2025-09-06 08:14 | XMS_ITS | Encounter Summary ---
Author Organization [employer] ([place], [place], [place], [place], [place]) Address [address] [place] [address] Care Team Providers Care Band Maker Name Role Phone Unavailable Primary Care Provider Unavailabl e Encounter Details Date Type Department Care Team (Late st Contact Info) Description 07/08/[address] [facility] [place] [address] [place] [address] ProviderChano MD [address] [place], [place] [phone] Social History Tobacco Use Types Packs/Day Years [...] : CPOT CPOT Pain Scale Link : Open ANKIT WINSLOW RN - 07/09/2019 2:47 EDT Pain Scale, [...] Care. 2006;15(4):420-427. Table 1, http://ajcc.aacnjournals.org/content/15/4/420.short, ?? 2006 [place] [employer]., Used with permission. ANKIT WINSLOW RN - 07/09/2019 2:47 EDT Electronically signed by Julian Wheeler Conversion Application Support Developer Cerner at 01/23/2023 1:18 PM CDT documented in this encounter Plan of Treatment Not on file documented as of this encounter Visit Diagnoses Not on filedocumented in this encounter
--- OUTSIDE RECORDS SUMMARY | 2025-09-06 08:14 | XMS_ITS | Encounter Summary ---
Author Organization [employer] ([place], [place], [place], [place], [place]) Address [address] [place] [address] Care Team Providers Care Sr. Manager Name Role Phone Unavailable Primary Care Provider Unavailabl e Encounter Details Date Type Department Care Team (Late st Contact Info) Description 07/22/2019 Transcribed Document [facility] [place] Family Medicine [address] [place] [address] ProviderChano MD [address] [place], [place] [phone] Social History Tobacco Use Types Packs/Day Years Used Date Smoking Tobacco: Never Assessed Comments Unknown Sex and Gender Information Value Date Recorded Sex Assigned at Not on file Legal Sex Female 2:07 PM CDT Gender Identity Not on file Sexual Orientation Not on file documented as of this encounter Miscellaneous Notes * Cerner Conversion Note - Historical ProviderMD - 07/22/2019 1:46 PM CDT Consult Phone Call Documentation Entered On: 07/22/2019 13:58 EDT Performed On: 07/22/2019 13:46 EDT by Nahomy Kim, RN Phone Call for Consults Consult Reason : Increased Confusion Provider Service Notified Name : Neurology Physician Covering for Consult : GIRMA GONZALEZ MD-ELIAN Date and Time Call Returned : 07/22/2019 13:52 EDT Consult, Additional Information : Left voicemail message per Dr. Crabtree's request. Nahomy Kim, RN - 07/22/2019 13:54 EDT Electronically signed by Summer cinthya Conversion Supervisor Cigarette Making Department Cerner at 01/23/2023 1:37 PM CDT documented in this encounter Plan of Treatment Not on file documented as of this encounter Visit Diagnoses Not on filedocumented in this encounter
--- OUTSIDE RECORDS SUMMARY | 2025-09-06 08:14 | XMS_ITS | Encounter Summary ---
Author Organization [employer] ([place], [place], [place], [place], [place]) Address [address] [place] [address] Care Team Providers Care Trim Mechanic Name Role Phone Unavailable Primary Care Provider Unavailabl e Encounter Details Date Type Department Care Team (Late st Contact Info) Description 07/22/2019 Transcribed Document [facility] [place] [address] ProviderChano MD [address] [place], [place] [phone] Social History Tobacco Use Types Packs/Day Years Used Date Smoking Tobacco: Never Assessed Comments Unknown Sex and Gender Information Value Date Recorded Sex Assigned at Not on file Legal Sex Female 2:07 PM CDT Gender Identity Not on file Sexual Orientation Not on file documented as of this encounter Miscellaneous Notes * Cerner Conversion Note - Historical ProviderMD - 07/22/2019 1:34 PM CDT error documented in this encounter Plan of Treatment Not on file documented as of this encounter Visit Diagnoses Not on filedocumented in this encounter
--- OUTSIDE RECORDS SUMMARY | 2025-09-06 08:14 | XMS_ITS | Encounter Summary ---
Author Organization [email or web address] ([place], [place], [place], [place], [place]) Address [address] [place] [address] Care Team Providers Care Rod Placer Name Role Phone Unavailable Primary Care Provider Unavailabl e Encounter Details Date Type Department Care Team (Late st Contact Info) Description 07/22/2019 Transcribed Document [facility] [place] [address] [place] [address] ProviderChano MD [address] [place], [place] [phone] Social History Tobacco Use Types Packs/Day Years [...]
--- OUTSIDE RECORDS SUMMARY | 2025-09-06 08:14 | XMS_ITS | Encounter Summary ---
Author Organization [employer] ([place], [place], [place], [place], [place]) Address [address] [place] [address] Care Team Providers Care Port Captain Name Role Phone Unavailable Primary Care Provider Unavailabl e Encounter Details Date Type Department Care Team (Late st Contact Info) Description 07/23/2019 Transcribed Document [facility] Radiology [address] [place] [address] Abby Reid MD [address] [place] [address] [place] [id number] Social History Tobacco Use Types Packs/Day Years Used Date Smoking Tobacco: Never Assessed Comments Unknown Sex and Gender Information Value Date Recorded Sex Assigned at Not on file Legal Sex Female 2:07 PM CDT Gender Identity Not on file Sexual Orientation Not on file documented as of this encounter Miscellaneous Notes * Cerner Conversion Note - Abby Reid MD - 07/23/2019 10:51 AM EDT Patient: LUDY ANTONIO Age: 68 [...] her today in am and she feel some better, drowsy some but arousable, mri neg, depakote stopped per dr parker I d/w CM and RN as well Health Status Allergies: Allergic Reactions (Selected) Severity [...] Refill(s) Flonase 0.05 mg/inh nasal spray: 2 [place], Nasal, Daily, 16 Gram, 0 Refill(s) Lantus [...] Bedtime, 30 Tab, 0 Refill(s), Home Medications (17) Active Aciphex 20 mg, Oral, BID Advair Diskus 250 mcg-50 mcg inhalation powder 1 Puff, PRN, Inhalation, Daily Centrum 1 Tab, Oral, Daily Cymbalta 60 mg oral delayed release capsule 60 mg = 1 Cap, Oral, At Bedtime Diflucan 100 mg oral tablet 100 mg = 1 Tab, Oral, Daily Flonase 0.05 mg/inh nasal spray 2 [place], Nasal, Daily gabapentin 300 mg oral capsule [...] Problem list: Medical Pain//chronic / SNOMED CT 072664158 / Confirmed At risk for sleep apnea / IMO 07743699 / Confirmed Back pain / SNOMED CT 1672842425 / Confirmed Cataract///beginning stage / SNOMED CT 490087572 / Confirmed Chest pain///cath negative / SNOMED CT 14406774 / Confirmed Completely occulded L carotid / SNOMED CT 9516179473 / Confirmed Lumbar disc disease / SNOMED CT 5919893311 / Confirmed Fibromyalgia / SNOMED CT 034843476 / Confirmed Hiatal hernia / SNOMED CT 278004433 / Complaint of H/O ischemic left MCA stroke / SNOMED CT 0738182443 / Confirmed Memory deficit///slow recall / SNOMED CT 0752561132 / Confirmed Numbness and tingling//right leg / SNOMED CT 9823266293 / Confirmed Obesity / SNOMED CT 1185139792 / Confirmed Right leg pain / SNOMED CT 2727891433 / Confirmed Colon polyps / SNOMED CT 669648389 / Confirmed Sleep apnea///risk / SNOMED CT 383643429 / Confirmed Wears glasses / SNOMED CT 179439750 / Confirmed, Active Problems (24) Acid reflux [...] Last Charted Minimum Maximum Temp 97.7 (JUL 23 05:56) 97.7 (OCT 18 05:56) 98 (OCT 17 12:00) Apical HR 80 (OCT 17 20:48) 80 (OCT 17 20:48) 80 (OCT 17 20:48) Mon HR 64 (OCT 18 05:56) 64 (OCT 18 05:56) 77 (JUL 17 17:00) Resp Rate 16 (OCT 18 05:56) 16 (OCT 18 05:56) 17 (OCT 17 12:00) SBP 135 (OCT 18 05:56) 129 (OCT 17 12:00) H 142 (JUL 17 17:00) DBP 61 (OCT 18 05:56) 60 (OCT 17 12:00) 68 (OCT 17 21:15) MAP 98 (OCT 18 05:56) 85 (OCT 17 21:15) 105 (JUL 17 17:00) SpO2 95 (JUL 18 05:56) L 93 (JUL 17 12:00) 95 (JUL 18 05:56) General: Moderate distress. Neck: Supple, Non-tender, No [...] Labs (Last four charted values) WBC 7.2 (OCT [...] 13) 31 (OCT 07) BUN H 24 (JUL 17) H 27 (OCT 16) H 23 (JUL 13) 14 (JUL 07) Cr H 1.06 (JUL 17) 1.00 (JUL 16) 1.00 (OCT 13) 0.90 [...] (JUL 16) 18 (JUL 07) 16 (JUL 09) 17 (JUL 03) ALT 24 (JUL 16) 25 (JUL 07) 23 (JUL 04) 21 (JUL 03) ALK P 56 (JUL 16) 56 (JUL 07) 69 (JUL 04) 63 (JUL 03) T Bili 0.3 (JUL 16) 0.3 (JUL 07) 0.3 (JUL 04) 0.4 (JUL 03) PTN L 6.2 (JUL 16) 6.7 (JUL 07) 7.1 (OCT 04) 7.0 (OCT 03) ALB L 2.7 (JUL 16) L 2.8 (JUL 12) L 3.1 (JUL 04) L 3.2 (JUL 03) Radiology Results (Last 48 hours) [id number] -- 07/11/2019 09:51 MRI Brain WO (07/22/2019 [...] d/w cm, and try to get to [facility] DIscharge summary dictated documented in this encounter Plan of Treatment Not on file documented as of this encounter Visit Diagnoses Not on filedocumented in this encounter
--- OUTSIDE RECORDS SUMMARY | 2025-09-06 08:14 | XMS_ITS | Encounter Summary ---
Author Organization [facility] ([place], [place], [place], [place], [place]) Address [address] [place] [address] Care Team Providers Care Aerial Planting And Cultivation Manager Name Role Phone Unavailable Primary Care Provider Unavailabl e Encounter Details Date Type Department Care Team (Late st Contact Info) Description 07/08/2019 Transcribed Document [facility] Family Medicine [facility] [place] [address] ProviderChano MD [facility] [place], [place] [id number] Social History Tobacco Use Types Packs/Day Years Used Date Smoking Tobacco: Never Assessed Comments Unknown Sex and Gender Information Value Date Recorded Sex Assigned at Not on file Legal Sex Female 2:07 PM CDT Gender Identity Not on file Sexual Orientation Not on file documented as of this encounter Miscellaneous Notes * Cerner Conversion Note - Historical ProviderMD - 07/08/2019 10:20 PM CDT Patient: LUDY ANTONIO Age: 68 Years Sex: Female : 1950 Chief Complaint pt had back surgery (L3-L4) apx 1 month ago, nausea but no vomiting, back pain 07/15. took 10mg oxycodone at 1330 today. Primary Care Provider QUIRINO SENIOR (REF) Vital Signs T: 36.8 ??C HR: 81(Peripheral) RR: 18 BP: 143/67 SpO2: 92% HT: 162.56 cm WT: 95.45 kg BMI: 36.1 Oxygen Settings (Last) Oxygen Therapy Mode: Room air (07/08/19 14:54:00) Assessment/Plan dictated Back pain, Back pain Generalized weakness Intractable back pain Post surgery problem Orders: acetaminophen, 650 mg, Oral, Tab, Q4H, PRN for Pain (Mild 1-3), Routine, Start 07/08/19 22:19:00 EDT acetaminophen-hydrocodone, 2 Tab, Oral, Tab, Q4H, PRN for Pain (Moderate 4-6), Routine, Start 07/08/19 22:19:00 EDT acetaminophen-hydrocodone, 1 Tab, Oral, Tab, Q4H, PRN for Pain (Mild 1-3), Routine, Start 07/08/19 22:19:00 EDT albuterol-ipratropium, 3 mL, Nebulized Inhalation, Inh, RT_Q6H, PRN for Shortness of Breath, Routine, Start 07/08/19 22:19:00 EDT docusate, 100 mg, Oral, Cap, BID, Routine, Start 07/08/19 22:19:00 EDT HYDROmorphone, 0.25 mg, IV Push, Inj, Q2H, PRN for Pain (Severe 7-10), Routine, Start 07/08/19 22:19:00 EDT insulin lispro, Scale A:, SubCutaneous, Inj, AC and at Bedtime, Routine, Start 07/09/19 7:00:00 EDT, At HS give only if FSBG > 180 mg/dL ondansetron, 4 mg, IV Push, Inj, Q4H, PRN for Nausea, Routine, Start 07/08/19 22:19:00 EDT pantoprazole, 40 mg, IV Push, Inj, Daily, Routine, Start 07/09/19 9:00:00 EDT polyethylene glycol 3350, 17 Gram, Oral, Powder, Daily, PRN for Constipation, Routine, Start 07/08/19 22:19:00 EDT Aspiration Precautions Bedrest CBC w/ Auto Diff CMP Comprehensive Metabolic Panel Consult to Physician Diabetes Education (Nursing) DVT VTE Prophylaxis Education ESR Sedimentation Rate Auto Intake and Output Lab Order Instructions to Nursing Neurological Assessment Notify Provider of Change in Patient Condition Notify Provider Vital Signs NPO after Midnight Place in Observation PT/INR Prothrombin Time Pulse Oximetry Spot Check (Nursing) Resuscitation Status Sequential Compression Device Sequential Compression Device TSH Thyroid Stimulating Hormone Vital Signs Weight (Routine) VTE Prophylaxis - Medical Sequential Compression Device Start: 07/08/19 22:19:00 EDT, Bilateral, Length: Knee High, While patient is in bed, Continuous Order (TOM MORSE) Sequential Compression Device Start: 07/08/19 22:19:00 EDT, Bilateral, Continuous Order (TOM MORSE) Problem List/Past Medical History Ongoing Acid reflux [...] Cholecystectomy, right and left shoulder repair, Tonsillectomy. Home Medications (16) Active Aciphex 20 mg, Oral, BID Advair Diskus 250 mcg-50 mcg inhalation powder 1 Puff, PRN, Inhalation, Daily Centrum 1 Tab, Oral, Daily Cymbalta 60 mg oral delayed release capsule 60 mg = 1 Cap, Oral, At Bedtime Flonase 0.05 mg/inh nasal spray 2 Dellroy, Nasal, Daily Lantus 60 Units, SubCutaneous, At [...] mg = 1 Tab, PRN, Oral, Q6H Plavix 75 mg oral tablet 75 mg = 1 Tab, Oral, Daily potassium chloride-sodium chloride 20 mEq, PRN, Oral, Daily Ultram 50 mg oral tablet 100 mg = 2 Tab, PRN, Oral, Q6H Vitamin D3 50,000 Int Units, Oral, See Comment Allergies Avandia (CHF) NSAIDs fenofibrate metFORMIN statins (Fenofibrate, Fenofibrate) Social History Alcohol Use in Last 12 Months: No. Employment/School Retired, Previous employment/school: [employer]. Home/Environment Lives with Spouse. Living situation: Home with assistance. Substance Abuse Drug Use Hx: No. Tobacco Use in Last 12 Months: Cigarettes. Smoking Status Former smoker. Years of Use: 1. Packs/Tins Daily: 0.5. Last Used: teenager. Lab Results Test Name Test Result Date/Time Sodium Level 141 mmol/L 07/08/2019 19:39 EDT Potassium Level 3.9 mmol/L 07/08/2019 19:39 EDT Chloride Level 105 mmol/L 07/08/2019 19:39 EDT Carbon Dioxide Level 30 mmol/L 07/08/2019 19:39 EDT Anion Gap 10 07/08/2019 19:39 EDT Glucose Level 153 mg/dL (High) 07/08/2019 19:39 EDT Blood Urea Nitrogen 20 mg/dL 07/08/2019 19:39 EDT Creatinine Level 1.00 mg/dL 07/08/2019 19:39 EDT eGFR >60 mL/min/1.73m2 07/08/2019 19:39 EDT eGFR NonAfrican 55 mL/min/1.73m2 (Low) 07/08/2019 19:39 EDT Bun/Creatinine 20.0 07/08/2019 19:39 EDT Calcium Level 9.7 mg/dL 07/08/2019 19:39 EDT Protein Total 7.0 Gram/dL 07/08/2019 19:39 EDT Albumin Level 3.2 Gram/dL (Low) 07/08/2019 19:39 EDT Globulin 3.8 Gram/dL 07/08/2019 19:39 EDT A/G Ratio 0.8 (Low) 07/08/2019 19:39 EDT Bilirubin Total 0.4 mg/dL 07/08/2019 19:39 EDT Alk Phos 63 Units/Liter 07/08/2019 19:39 EDT AST 17 Units/Liter 07/08/2019 19:39 EDT ALT 21 Units/Liter 07/08/2019 19:39 EDT WBC 9.1 K/uL 07/08/2019 19:39 EDT RBC 4.25 Million/uL 07/08/2019 19:39 EDT Hgb 12.0 g/dL 07/08/2019 19:39 EDT Hct 37.3 % 07/08/2019 19:39 EDT MCV 87.8 fL 07/08/2019 19:39 EDT MCH 28.2 pg 07/08/2019 19:39 EDT MCHC 32.2 Gram/dL 07/08/2019 19:39 EDT Platelet Count 268 K/uL 07/08/2019 19:39 EDT MPV 9.3 fL (Low) 07/08/2019 19:39 EDT RDW 13.2 % 07/08/2019 19:39 EDT Neut % 48.5 % 07/08/2019 19:39 EDT Neut # 4.41 K/uL 07/08/2019 19:39 EDT Lymph % 39.7 % 07/08/2019 19:39 EDT Lymph # 3.62 x10(3)/uL 07/08/2019 19:39 EDT Coffee % 8.1 % 07/08/2019 19:39 EDT Coffee # 0.74 K/uL 07/08/2019 19:39 EDT Eos % 2.6 % 07/08/2019 19:39 EDT Eos # 0.24 x10(3)/uL 07/08/2019 19:39 EDT Baso % 0.7 % 07/08/2019 19:39 EDT Baso # 0.06 x10(3)/uL 07/08/2019 19:39 EDT Sed Rate Auto 48 mm/Hr (High) 07/08/2019 19:39 EDT Slide Review No 07/08/2019 19:39 EDT IG# 0.04 x10(3)/uL 07/08/2019 19:39 EDT IG% 0.40 % 07/08/2019 19:39 EDT PT 10.1 Second(s) 07/08/2019 19:39 EDT INR 0.9 07/08/2019 19:39 EDT PTT 28.0 Second(s) 07/08/2019 19:39 EDT Urine Type. U CleanCatch 07/08/2019 19:39 EDT Urine Color YELLOW2 07/08/2019 19:39 EDT Urine Appearance ERROR 07/08/2019 19:39 EDT Urine Specific [place] 1.013 07/08/2019 19:39 EDT Urine pH Dipstick [...] Epi Cells 2-5 (Abnormal) 07/08/2019 19:39 EDT Additional Documentation Code Status Start: 07/08/19 22:19:00 EDT, Full Code, Continuous Order Electronically signed by Julian Wheeler Conversion Microbiological Lab Technician Cerner at 01/23/2023 1:40 PM CDT documented in this encounter Plan of Treatment Not on file documented as of this encounter Visit Diagnoses Not on filedocumented in this encounter
--- OUTSIDE RECORDS SUMMARY | 2025-09-06 08:14 | XMS_ITS | Data Portability ---
Author Organization [employer] [facility] Address [address] [facility] [address] [place] [address] Care Team Providers Care Breaker Up Machine Operator Name Role Phone JAKE CEVALLOS [...] Program, Modalities (as indicated), Mechanical Traction, Postural Correction/Second Time Worker Education Goals, POT and Rehabilitation potential were [...] Imaging MRI, shoulder, w/o contrast 2021 022 [facility], [address] [place] [address], [address], [place], [address], 09:48:57 Medication Orders Medrol (Cy) 4 mg tablets in a dose pack 2021 022 [email or web address] 2 [id number], [address] [place], [address], 17:39:16 Patient TargetsNo targets recorded. 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 Worse since Pop on Friday [...] Dose pack called in for patient today ([facility]) patient already has X-Ray right shoulder and we reviewed xray showing significant osteopahyte and mri from [facility] showing retear of rotator cuff at prior repair by dr fernandez Order MRI right Shoulder (without contrast) to evaluate for RTC / Bicep injury / RC; after MRI WOULD REQUIRE PREOP EVAL FROM 2011 TWO BACK SURGERIES SINCE THEN [email or web address] Not available 11/27/2021 11:22:48 12/04/2021 [id number] Discussed conservative and surgical options with the [...] No observ ation record ed. [facility] [address], [place], [address], 02/22/2021 13:34:30 03/09/20 21 03/09/2021 XR, shoul jemima, 2 or more view [facility] [address] [place] [address] Patipraneeth t Name: DULCE KOHLER Patipraneeth [place] [...] Ambrocio Campbell MD on 03/09/20 12:12 PM [facility] [place] [address] , [place], [address], 03/16/2021 00:08:20 03/19/20 21 03/19/2021 MRI, carmita jemima, w/o contr ast No observ ation record ed. [facility] [address], [place], [address], 03/19/2021 22:26:44 12/06/19 22 12/04/2021 MRI, freemanul jemima, w/o contr ast No observ ation record ed. [facility] [address], [place], [address], 12/19/2021 16:20:41 02/27/20 23 01/15/2023 MRI, cervi ulysses spine , w/o contr ast No observ ation record ed. [facility] [address], [place], [address], 04/26/2023 20:08:36 04/14/20 23 04/14/2023 XR, cervi ulysses spine , 2 or 3 view [facility] [address] [place] [address] Patipraneeth cleveland Name: DULCE cleveland : 1949 [...] Quang Hutton MD on 023 4:26 PM [facility] [address] [place], [address], 04/26/2023 13:39:24 08/14/20 23 08/14/2023 nerve condu ction study /EMG (PROC ) No observ ation record ed. wilfrido Cevallos MD [address] [facility] [address], [place], [address], 09/02/2023 14:54:54 Result Notes Documentation Provider Name and Address Organization Details Recorded Time Xr, Cervical Spine, 2 Or 3 View : [facility] [address] [place] [address] Patient Name: DULCE KOHLER Patient : 1950 [...] Victor M Hutton MD HA MONTELONGO MD [address] [place] [address], [phone], [facility] 04/25/2023 12:55:55 Problems Name Problem SNOMED Code Status Onset Date Resolution Date Notes Provider Name and Address Organization Details Recorded Time Epigastri c pain 55473138 Active 2015 From Automated Load;Prov ider: Nickolas Vicente;Stat us: [facility] 11:08:29 Right upper quadrant pain 008610750 Active 2015 From Automated Load;Prov ider: Nickolas Vicente;Stat us: [facility] 11:08:29 Abdominal bloating 212797368 Active 2015 From Automated Load;Prov ider: Nickolas Vicente;Stat us: Active [facility] 11:08:29 Nausea 318157192 Active 2015 From Automated Load;Prov ider: Nickolas Vicente;Stat us: Active [facility] 11:08:29 Cerebral infarctio n 886482711 Active 2015 From Automated Load;Prov ider: Jake Cevallos;Abiodun salazar: Active Carla robledo, [facility] 11:08:29 Pain of right shoulder joint 639076276179 18097 Active 2020 RODRIGUEZ BLANCO, PT, DPT [address] [place] [address], [phone], [facility] 13:49:01 Full thickness rotator cuff tear 587839468 Active 2020 RODRIGUEZ BLANCO, PT, DPT [address] [place] [address], [address], [facility] 13:49:02 Muscle weakness 01941716 Active 2020 RODRIGUEZ BLANCO, PT, DPT [address] [place] [address], [address], [facility] 13:49:03 Incoordin ation 795509372 Active 2020 RODRIGUEZ BLANCO, PT, DPT [address] [place] [address], [address], [facility] 13:49:03 Problem Notes None recorded. Procedures Surgical History Date Name Laterality Status Provider Name and Address Organization Details Recorded Time 12/05/19 22 Injection - Joint/Bursa, Major completed JULIAN ASKEW MD [address] [place] [address], [phone], [facility] 12/09/2021 16:42:40 03/22/20 21 PT Evaluation - Moderate Complexity completed RODRIGUEZ BLANCO PT, DPT [address] [place] [address], [phone], [facility] 03/22/2021 13:46:58 03/22/20 21 PT Therapeutic Exercise completed RODRIGUEZ BLANCO PT, DPT [address] [place] [address], [phone], [facility] 03/22/2021 13:47:06 03/22/20 21 Injection - Joint/Bursa, Major completed JULIAN ASKEW MD [address] [place] [address], [phone], [facility] 03/22/2021 16:11:45 07/09/20 19 LUMBAR DISCECTOMY (SURG) completed Angeles Qureshi [facility] 07/14/2019 15:40:28 04/05/20 19 LUMBAR DISCECTOMY (SURG) completed Angeles Qureshi [facility] 04/12/2019 08:22:27 04/14/20 17 VAS - Carotid Duplex completed CARLOS LINDQUIST MD [address] [place], [address], [facility] 04/14/2017 15:50:38 [facility] 10/22/2016 08:51:19 [facility] 10/22/2016 08:51:23 [facility] 10/22/2016 08:51:28 Hip Surgery [facility] 10/22/2016 08:51:40 Knee Surgery completed Nitza Renard RAJAN [facility] 10/22/2016 08:55:56 Shoulder Surgery completed [facility] 10/22/2016 08:56:09 Imaging Results None recorded. Procedure Notes None recorded. Medical Equipment None Reported. Allergies Allergen ID Allergen Name Allergen Category Reaction Reaction Severity Criticality Documentation Date Start Date Code Code System Note Provider Name and Address Organization Details Recorded Time 20140411 Avandia medicatio n Not available Not available Not available 08/29/20162015 46946 5 RxNorm Comme nt: Creat ed By: Denisse elizalde Date: 2015 3:02: 07 PM; Not Available [facility] 6 12:21:53 122051 Substance with prostagla ndin-endo peroxide synthase isoform 2 inhibitor mechanism of action (substanc e) Not available Not available Not available Not available 08/30/20162010 10707 0005 SNOMED Comme nt: Creat ed By: Jr. Staci Dang;Ileana campa Date: 07/23 11:41 :30 AM; Not Available [facility] 6 04:27:24 731115 metformin medicatio n Not available Not available Not available 04/07/2019 6809 RxNorm [facility] 9 11:08:28 349771 fenofibra te medicatio n Not available Not available Not available 04/07/2019 8703 RxNorm [facility] 9 11:08:28 Medications Name Sig Start Date [...] Updated DateTime 11/27/2021 165.1 cm 39.9 kg/m2 271906.17 g Adrienne Perales [facility] 11/27/2021 10:37:25 Date Recorded Body height Body mass index (BMI) Body weight Provider Name and Address Organization Details Last Updated DateTime 12/04/2021 165.1 cm 39.9 kg/m2 736338.17 g Adrienne Perales [facility] 12/04/2021 17:35:16 Date Recorded Body height Body mass index (BMI) Body weight Pain severity - 0-10 verbal numeric rating [Score] - Reported Systolic And Diastolic Provider Name and Address Organization Details Last Updated DateTime 03/22/2021 165.1 cm 39.9 kg/m2 393027.1 7 g 10 132/76 mm[Hg] Linh Tyrell [facility] 08:40:33 Date Recorded Body weight Heart rate Systolic And Diastolic Provider Name and Address Organization Details Last Updated DateTime 04/14/2023 400460.17 g 82 /min 142/80 mm[Hg] Ludmilathang Bills [facility] 04/14/2023 13:48:38 Social History Question Answer Notes LastModified by Organizat ion Details LastModified Time Tobacco Smoking Status Never [facility]oker [facility] 10/22/2016 08:50:59 Live Alone Or With Others? 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 [id number] CARLOS LINDQUIST MD [facility] [address] [facility] [place] [address] 04/14/2017 14:51:00 04/15/2017 15:44:50 History of cerebrovascular accident 268165167 Z86.73 Left carot id artery occlusion 9987992400 23916 I65.22 [id number] LUCRECIA QUIROZ PA-C [facility]EDI [facility] [address] [place] [address] 04/28/2017 15:23:04 04/28/2017 16:57:08 Pain of shoulder region 48560128 M25.126 [id number] ONUR WINSTON MD [facility]OSURG [facility] [address] [place] [address] 03/24/2019 14:26:14 03/24/2019 16:16:33 Lumbosacral radiculopathy 9293270 M54.16 Lumbar dis c prolapse with radiculopathy 513539389 M51.16 -The patient is being seen for [...] days to let us know her decision. [id number] ONUR WINSTON MD SURGERY SCHEDULE [address] [place] [address] 04/13/2019 16:29:35 04/14/2019 08:08:49 [id number] [facility] [address] [place] [address] 05/18/2019 10:10:13 05/19/2019 09:56:49 Postoperative care 354162151 Z48.89 Ms. Kohler is a 68-year-ol d [...] and examined with attending physican, Dr. Winston. [id number] [facility]INST[facility] [address] [facility] [place] [address] 07/06/2019 10:01:49 07/06/2019 14:01:38 Lumbar radiculopathy 522077780 M54.16 -She has a number of complaints [...] crp esr blood cutlures Intermitte nt confusion 078399586 R41.0 -The patient was seen by her neurologis t. MRI of the brain was obtained. No Evidence of acute infarct. This informatio n was communicat ed to the patient and her . [id number] ONUR WINSTON MD SURGERY SCHEDULE [address] [place] [address] 07/16/2019 10:50:11 07/16/2019 12:02:36 [id number] JULIAN ASKEW MD [facility] [address] [place] [address] 02/06/2021 10:55:42 02/06/2021 12:26:22 Pain of right shoulder joint 9366794450 3652989 M25.511 Pain in ce rvical spine 115533972 M54.2 [id number] JULIAN ASKEW MD [facility] [address] [place] [address] 03/09/2021 10:52:21 03/09/2021 11:58:11 Pain of right shoulder joint 3798732009 7726854 M25.220 [id number] JULIAN ASKEW MD [facility] [address] [place] [address] 03/22/2021 08:29:35 03/22/2021 10:27:20 Full thickness rotator cuff tear 008015290 M75.120 Scapulalgia 29834697 M25 .448 [id number] RODRIGUEZ M ROUSE, PT, DPT PHYSICAL THERAPY / HAND THERAPY [facility] [address] [place] [address] 03/22/2021 12:51:03 03/22/2021 14:09:10 Pain of right shoulder joint 0659752542 3266897 M25.511 Full thick ness rotator cuff tear 936743965 M75.121 Muscle weakness 90070743 M62.81 Incoordination 508547802 R27.9 [id number] JULIAN ASKEW MD [facility] [address] [address] 11/27/2021 09:50:46 11/27/2021 11:29:08 Pain of right shoulder joint 1525821420 7668075 M25.291 [id number] JULIAN ASKEW MD [facility] [address] [place] [address] 12/04/2021 17:13:35 12/05/2021 09:46:34 Full thickness rotator cuff tear 715579622 M75.120 [id number] TIESHA ANGELA MONTELONGO [facility] [address] [place] [address] 04/14/2023 13:16:10 04/15/2023 04:30:44 Cervical radiculopathy 45514621 M54.12 She has mild to moderate cervical [...] (MEDICARE REPLACEMENT/A DVANTAGE - HMO) Dulce Kohler [id number] Dulce Kohler Notes Date Note Type Note [...] HPI RODRIGUEZ BLANCO, PT, DPT [address] [place], [address], [facility] 03/22/2021 14:06:53 03/22/2021 text/html 03/22/2021 [...] Numbness/tingling 02/06/21 PCP: Karthik Senior MD - [place], [place] SEEN FOR CONSULTATION AT THE REQUEST [...] sling Activity Modification: JULIAN ASKEW MD [address] [place], [address], [facility] 03/22/2021 16:15:57 11/27/2021 text/html 11/27/21Patient [...] using walker today secondary TO STR[facility]KE [facility] 11/27/2021 11:22:55 12/04/2021 text/html 12/04/21Patient comes in [...] no other pathologic process JULIAN ASKEW MD [facility] [place], [address], [facility] 12/09/2021 19:13:46 04/14/2023 text/html ROS as noted in the HPI Dulce kohler is a very pleasant 72-year-old woman here today in neurosurgical consultation for neck and left upper extremity weakness with numbness. She states she had a stroke with left-sided deficits. She was [facility] at the [facility] and discharged to [facility]. Since then she has had left upper [...] moderate neuroforaminal stenosis TIESHA MONTELONGO MD [address] [facility] [place], [address], [facility] 04/14/2023 15:59:17 OBGyn Episode No OBEpisode recorded.
--- OUTSIDE RECORDS SUMMARY | 2025-09-06 08:14 | XMS_ITS | Encounter Summary ---
Author Organization [employer] ([place], [place], [place], [place], [place]) Address [address] [place] [address] Care Team Providers Care Bonding Molder Name Role Phone Unavailable Primary Care Provider Unavailabl e Encounter Details Date Type Department Care Team (Late st Contact Info) Description 07/08/[address] [facility] Family Medicine [address] [place] [address] ProviderChano MD [address] [place], [place] [id number] Social History Tobacco Use Types Packs/Day Years [...]
--- OUTSIDE RECORDS SUMMARY | 2025-09-06 08:14 | XMS_ITS | Encounter Summary ---
Author Organization [employer] ([place], [place], [place], [place], [place]) Address [address] [place] [address] Care Team Providers Care Cattle Shipper Name Role Phone Unavailable Primary Care Provider Unavailabl e Encounter Details Date Type Department Care Team (Late st Contact Info) Description 07/24/2019 Transcribed Document [facility] Family Medicine [address] [place] [address] ProviderChano MD [address] [id number] Social History Tobacco Use Types Packs/Day Years [...]
--- OUTSIDE RECORDS SUMMARY | 2025-09-06 08:14 | XMS_ITS | Encounter Summary ---
Author Organization [employer] ([place], [place], [place], [place], [place]) Address [address] [place] [address] Care Team Providers Care Barker Operator Name Role Phone Unavailable Primary Care Provider Unavailabl e Encounter Details Date Type Department Care Team (Late st Contact Info) Description 07/23/2019 Transcribed Document [facility] [place] Medicine [address] [place] [address] ProviderChano MD [address], [place] [phone] Social History Tobacco Use Types Packs/Day Years [...] her name and that we are at [facility] . TESTS Cranial MRI ( yesterday ) [...] 2. Side effects of medications. 3. A RETENTION REPRESENTATIVE infection. 4. Cerebrovascular disease. 5. Seizures - [...]
--- OUTSIDE RECORDS SUMMARY | 2025-09-06 08:14 | XMS_ITS | Encounter Summary ---
Author Organization [employer] ([place], [place], [place], [place], [place]) Address [address] [place] [address] Care Team Providers Care Operator Weapon Locating Radar Name Role Phone Unavailable Primary Care Provider Unavailabl e Encounter Details Date Type Department Care Team (Late st Contact Info) Description 07/08/2019 Transcribed Document [facility] [place] Family Medicine [facility] [place] [address] ProviderChano MD [address] [place] [phone] Social History Tobacco Use Types Packs/Day Years [...] CC2: Dr. Lucas Electronically signed by Summer [facility] Conversion Soda Dry House Operator Cerner at 01/23/2023 1:38 PM CDT documented in this encounter Plan of Treatment Not on file documented as of this encounter Visit Diagnoses Not on filedocumented in this encounter
--- OUTSIDE RECORDS SUMMARY | 2025-09-06 08:14 | XMS_ITS | Encounter Summary ---
Author Organization [email or web address] ([place], [place], [place], [place], [place]) Address [address] [place] [address] Care Team Providers Care Store Planner Name Role Phone Unavailable Primary Care Provider Unavailabl e Encounter Details Date Type Department Care Team (Late st Contact Info) Description 07/09/2019 Transcribed Document [facility] [place] Family Medicine [address] [place] [address] ProviderChano MD [address] [place] [phone] Social History Tobacco Use Types Packs/Day Years Used Date Smoking Tobacco: Never Assessed Comments Unknown Sex and Gender Information Value Date Recorded Sex Assigned at Not on file Legal Sex Female 2:07 PM CDT Gender Identity Not on file Sexual Orientation Not on file documented as of this encounter Miscellaneous Notes * Cerner Conversion Note - Historical ProviderMD - 07/09/2019 3:37 PM CDT Pain [...]
--- OUTSIDE RECORDS SUMMARY | 2025-09-06 08:14 | XMS_ITS | Encounter Summary ---
Author Organization [employer] ([place], [place], [place], [place], [place]) Address [address] [place] [address] Care Team Providers Care Study Specialist Name Role Phone Unavailable Primary Care Provider Unavailabl e Encounter Details Date Type Department Care Team (Late st Contact Info) Description 07/23/2019 Transcribed Document [facility] [place] [address] [place] [address] ProviderChano MD [address] [place] [phone] Social History Tobacco Use Types Packs/Day Years [...]
--- OUTSIDE RECORDS SUMMARY | 2025-09-06 08:14 | XMS_ITS | Encounter Summary ---
Author Organization [employer] ([place], [place], [place], [place], [place]) Address [address] [place] [address] Care Team Providers Care Tool And Machine Maintainer Name Role Phone Unavailable Primary Care Provider Unavailabl e Encounter Details Date Type Department Care Team (Late st Contact Info) Description 07/23/2019 Transcribed Document [facility] [place] [address] [place] [address] ProviderChano MD [address] [place] [phone] Social History Tobacco Use Types Packs/Day Years [...] HOLLY GALDAMEZ OTR/Rob - 07/23/2019 15:36 EDT documented in this encounter Plan of Treatment Not on file documented as of this encounter Visit Diagnoses Not on filedocumented in this encounter
--- OUTSIDE RECORDS SUMMARY | 2025-09-06 08:14 | XMS_ITS | Encounter Summary ---
Author Organization [employer] ([place], [place], [place], [place], [place]) Address [address] [place] [address] Care Team Providers Care Transliterator Name Role Phone Unavailable Primary Care Provider Unavailabl e Encounter Details Date Type Department Care Team (Late st Contact Info) Description 07/08/2019 Transcribed Document [facility] [place] Medicine [facility] [place] [address] ProviderChano MD [address] [place] [phone] Social History Tobacco Use Types Packs/Day Years [...] 3 - Urgent Tracking Group : [facility] ED Vanesa Guadalupe Rn - [...] 15:00:09 EDT) Problems(Active) Acid reflux (SNOMED CT :013861705 ) Name of Problem: Acid reflux ; Recorder: MIGEL GARCIA RN; Confirmation: Confirmed ; Classification: Patient Stated ; Code: [id number] ; Contributor System: [employer]Mine[employer] ; Last Updated: 03/17/2014 19:28 EDT ; Life Cycle Date: 06/24/2013 ; Life Cycle Status: Active ; Vocabulary: SNOMED CT Allergic asthma (SNOMED CT :3414981399 ) Name of Problem: Allergic asthma ; Recorder: MIGEL GARCIA RN; Confirmation: Confirmed ; Classification: Patient Stated ; Code: 4657448993 ; Contributor System: PowerChart ; Last Updated: 03/17/2014 19:28 EDT ; Life Cycle Date: 06/24/2013 ; Life Cycle Status: Active ; Vocabulary: SNOMED CT Arthritis (SNOMED CT :2832784 ) Name of Problem: Arthritis ; Recorder: MIGEL GARCIA RN; Confirmation: Confirmed ; Classification: Patient Stated ; Code: 3613721 ; Contributor System: PowerChart ; Last Updated: 03/17/2014 19:28 EDT ; Life Cycle Date: 06/24/2013 ; Life Cycle Status: Active ; Vocabulary: SNOMED CT At risk for sleep apnea (IMO :44585955 ) Name of Problem: At risk for sleep apnea ; Recorder: SYSTEM, SYSTEM; Confirmation: Confirmed ; Classification: Medical ; Code: 62380050 ; Last Updated: 04/01/2019 10:50 EDT ; Life Cycle Date: 04/01/2019 ; Life Cycle Status: Active ; Vocabulary: IMO Back pain (SNOMED CT :8550286877 ) Name of Problem: Back pain ; Recorder: BIANKA DUNN RN; Confirmation: Confirmed ; Classification: Medical ; Code: 3425446188 ; Contributor System: PowerChart ; Last Updated: 04/01/2019 10:23 EDT ; Life Cycle Date: 04/01/2019 ; Life Cycle Status: Active ; Vocabulary: SNOMED CT BP+ - Hypertension (SNOMED CT :047145887 ) Name of Problem: BP+ - Hypertension ; Recorder: MIGEL GARCIA RN; Confirmation: Confirmed ; Classification: Patient Stated ; Code: 683840907 ; Contributor System: PowerChart ; Last Updated: 03/22/2014 10:58 EDT ; Life Cycle Date: 06/24/2013 ; Life Cycle Status: Active ; Vocabulary: SNOMED CT Cataract///beginning stage (SNOMED CT :933081527 ) Name of Problem: Cataract///beginning stage ; Recorder: BIANKA DUNN RN; Confirmation: Confirmed ; Classification: Medical ; Code: 661801919 ; Contributor System: PowerChart ; Last Updated: 04/01/2019 10:22 EDT ; Life Cycle Date: 04/01/2019 ; Life Cycle Status: Active ; Vocabulary: SNOMED CT Chest pain///cath negative (SNOMED CT :93358986 ) Name of Problem: Chest pain///cath negative ; Onset Date: 2012 ; Recorder: BIANKA DUNN RN; Confirmation: Confirmed ; Classification: Medical ; Code: 60576333 ; Contributor System: PowerChart ; Last Updated: 04/01/2019 10:27 EDT ; Life Cycle Date: 04/01/2019 ; Life Cycle Status: Active ; Vocabulary: SNOMED CT Colon polyps (SNOMED CT :199039166 ) Name of Problem: Colon polyps ; Recorder: BIANKA DUNN RN; Confirmation: Confirmed ; Classification: Medical ; Code: 135244497 ; Contributor System: PowerChart ; Last Updated: 04/01/2019 10:22 EDT ; Life Cycle Date: 04/01/2019 ; Life Cycle Status: Active ; Vocabulary: SNOMED CT Completely occulded L carotid (SNOMED CT :3536484541 ) Name of Problem: Completely occulded L carotid ; Recorder: STEPHANIE ARREGUIN RN; Confirmation: Confirmed ; Classification: Medical ; Code: 7997423078 ; Contributor System: PowerChart ; Last Updated: 04/23/2016 17:54 EDT ; Life Cycle Date: 04/25/2015 ; Life Cycle Status: Active ; Vocabulary: SNOMED CT Congestive heart failure - due to Avandia resolved (SNOMED CT :44169025 ) Name of Problem: Congestive heart failure - due to Avandia resolved ; Recorder: MIGEL GARCIA RN; Confirmation: Confirmed ; Classification: Patient Stated ; Code: 22821888 ; Contributor System: PowerChart ; Last Updated: 04/23/2016 17:53 EDT ; Life Cycle Date: 06/24/2013 ; Life Cycle Status: Active ; Vocabulary: SNOMED CT ; Comments: 06/24/2013 10:32 - MIGEL GARCIA RN per pt and DM - Diabetes mellitus (SNOMED CT :671375408 ) Name of Problem: DM - Diabetes mellitus ; Recorder: MIGEL GARCIA RN; Confirmation: Confirmed ; Classification: Patient Stated ; Code: 879824698 ; Contributor System: CloudMineChart ; Last Updated: 03/22/2014 10:54 EDT ; Life Cycle Date: 06/24/2013 ; Life Cycle Status: Active ; Vocabulary: SNOMED CT Dyslipidemia (SNOMED CT :3186500409 ) Name of Problem: Dyslipidemia ; Recorder: MIGEL GARCIA RN; Confirmation: Confirmed ; Classification: Patient Stated ; Code: 2941859447 ; Contributor System: PowerChart ; Last Updated: 03/17/2014 19:28 EDT ; Life Cycle Date: 06/24/2013 ; Life Cycle Status: Active ; Vocabulary: SNOMED CT Fibromyalgia (SNOMED CT :324195019 ) Name of Problem: Fibromyalgia ; Recorder: BIANKA DUNN RN; Confirmation: Confirmed ; Classification: Medical ; Code: 724670785 ; Contributor System: PowerChart ; Last Updated: 04/01/2019 10:24 EDT ; Life Cycle Date: 04/01/2019 ; Life Cycle Status: Active ; Vocabulary: SNOMED CT H/O ischemic left MCA stroke (SNOMED CT :8789504220 ) Name of Problem: H/O ischemic left MCA stroke ; Onset Date: 09/05/2012 ; Recorder: SYBIL MCGILL MD-EMR; Confirmation: Confirmed ; Classification: Medical ; Code: 4782109245 ; Contributor System: PowerChart ; Last Updated: 04/23/2016 17:54 EDT ; Life Cycle Date: 04/23/2016 ; Life Cycle Status: Active ; Responsible Provider: SYBIL MCGILL MD-EMR; Vocabulary: SNOMED CT Hiatal hernia (SNOMED CT :140346024 ) Name of Problem: Hiatal hernia ; Recorder: SYBIL MCGILL MD-EMR; Confirmation: Complaint of ; Classification: Medical ; Code: 583974738 ; Contributor System: [employer]MineChart ; Last Updated: 12/03/2015 16:45 EST ; Life Cycle Date: 12/03/2015 ; Life Cycle Status: Active ; Vocabulary: SNOMED CT Lumbar disc disease (SNOMED CT :0859935346 ) Name of Problem: Lumbar disc disease ; Recorder: BIANKA DUNN RN; Confirmation: Confirmed ; Classification: Medical ; Code: 6409237883 ; Contributor System: PowerChart ; Last Updated: 04/01/2019 10:25 EDT ; Life Cycle Date: 04/01/2019 ; Life Cycle Status: Active ; Vocabulary: SNOMED CT Memory deficit///slow recall (SNOMED CT :8683773165 ) Name of Problem: Memory deficit///slow recall ; Recorder: BIANKA DUNN RN; Confirmation: Confirmed ; Classification: Medical ; Code: 4515147810 ; Contributor System: PowerChart ; Last Updated: 04/01/2019 10:51 EDT ; Life Cycle Status: Active ; Vocabulary: SNOMED CT Numbness and tingling//right leg (SNOMED CT :4894938803 ) Name of Problem: Numbness and tingling//right leg ; Recorder: BIANKA DUNN RN; Confirmation: Confirmed ; Classification: Medical ; Code: 5495864429 ; Contributor System: PowerChart ; Last Updated: 04/01/2019 10:23 EDT ; Life Cycle Date: 04/01/2019 ; Life Cycle Status: Active ; Vocabulary: SNOMED CT Obesity (SNOMED CT :2514355186 ) Name of Problem: Obesity ; Recorder: SYBIL MCGILL MD-AVINASH; Confirmation: Confirmed ; Classification: Medical ; Code: 7688774721 ; Contributor System: PowerChart ; Last Updated: 04/23/2016 17:53 EDT ; Life Cycle Date: 04/23/2016 ; Life Cycle Status: Active ; Responsible Provider: SYBIL MCGILL MD-EMR; Vocabulary: SNOMED CT Pain//chronic (SNOMED CT :710885681 ) Name of Problem: Pain//chronic ; Recorder: BIANKA DUNN RN; Confirmation: Confirmed ; Classification: Medical ; Code: 572644595 ; Contributor System: [employer] ; Last Updated: 04/01/2019 10:24 EDT ; Life Cycle Date: 04/01/2019 ; Life Cycle Status: Active ; Vocabulary: SNOMED CT Right leg pain (SNOMED CT :4250136870 ) Name of Problem: Right leg pain ; Recorder: BIANKA DUNN RN; Confirmation: Confirmed ; Classification: Medical ; Code: 6917713469 ; Contributor System: PowerChart ; Last Updated: 04/01/2019 10:23 EDT ; Life Cycle Date: 04/01/2019 ; Life Cycle Status: Active ; Vocabulary: SNOMED CT Sleep apnea///risk (SNOMED CT :257768996 ) Name of Problem: Sleep apnea///risk ; Recorder: BIANKA DUNN RN; Confirmation: Confirmed ; Classification: Medical ; Code: 757266696 ; Contributor System: PowerChart ; Last Updated: 04/01/2019 10:37 EDT ; Life Cycle Date: 04/01/2019 ; Life Cycle Status: Active ; Vocabulary: SNOMED CT Wears glasses (SNOMED CT :443640252 ) Name of Problem: Wears glasses ; Recorder: BIANKA DUNN RN; Confirmation: Confirmed ; Classification: Medical ; Code: 164062466 ; Contributor System: PowerChart ; Last Updated: 04/01/2019 10:19 EDT ; Life Cycle Date: 04/01/2019 ; Life Cycle Status: Active ; Vocabulary: SNOMED CT Diagnoses(Active) Back pain Date: 07/08/2019 ; Diagnosis Type: Reason For Visit ; Confirmation: Complaint of ; Clinical Dx: Back pain ; Classification: Medical ; Clinical Service: Non-Specified ; Code: PNED ; Probability: 0 ; Diagnosis Code: [id number] Post surgery problem Date: 07/08/2019 ; Diagnosis Type: Reason For Visit ; Confirmation: Complaint of ; Clinical Dx: Post surgery problem ; Classification: Medical ; Clinical Service: Non-Specified ; Code: PNED ; Probability: 0 ; Diagnosis Code: [id number] ED Height and Weight Height Source : Stated Height Entry Format : [place] Height, Feet : 5 ft(Converted to: 152 cm, 60 Inch) Height, Inches : 4 Inch(Converted to: 0 ft 4 Inch, 10.16 cm) Clinical Height : 162.56 cm Weight Source, ED : Critical estimated dosing weight Weight Entry Format : [place] Weight, Pounds : 210 lb Clinical Dosing Weight : 95.45 kg Body Surface Area (BSA) : 2 m2 Body Mass Index : 36.1 kg/m2 (HI) [place] Body Weight (IBW) : 54.3 kg Vanesa [...]
--- OUTSIDE RECORDS SUMMARY | 2025-09-06 08:14 | XMS_ITS | Encounter Summary ---
Author Organization [employer] ([place], [place], [place], [place], [place]) Address [address] [place] [address] Care Team Providers Care Golf Course Keeper Name Role Phone Unavailable Primary Care Provider Unavailabl e Encounter Details Date Type Department Care Team (Late st Contact Info) Description 07/22/2019 Transcribed Document [facility] [place] [facility] [place] [address] ProviderChano MD [address] [place] [phone] Social History Tobacco Use Types Packs/Day Years Used Date Smoking Tobacco: Never Assessed Comments Unknown Sex and Gender Information Value Date Recorded Sex Assigned at Not on file Legal Sex Female 2:07 PM CDT Gender Identity Not on file Sexual Orientation Not on file documented as of this encounter Miscellaneous Notes * Cerner Conversion Note - Chano Gatica MD - 07/22/2019 12:13 PM CDT Patient: LUDY ANTONIO Age: 68 [...] epithelial cells. Urine culture was positive for 10???[id number] CFU/mL. CT of the L-spine was negative. [...] notes increasing confusion no fever or rash Allergies:Allergies (1) Active [...] fluticasone nasal (Flonase) - 1 Puff, Nasal, [place], Daily, Routine miconazole topical (Desenex AF 2% [...] Last Charted Minimum Maximum Temp 98 (JUL 22 12:00) 98 (JUL 21 21:15) 98.2 (JUL 21:) Apical HR 80 (JUL 22 08:59) 66 (JUL 21 21:32) 80 (JUL 22 08:59) Mon HR 69 (JUL 22 12:00) 60 (JUL 21:) 80 (JUL 22 06:24) Resp Rate 17 (JUL 22 12:00) 16 (JUL 21 21:15) 17 (JUL 21:) SBP 129 (JUL 22 12:00) 129 (JUL 21:) H 186 (JUL 21 21:15) DBP 60 (JUL 22 12:00) L 52 (JUL 21:) 75 (JUL 22 06:24) MAP 97 (JUL 22 12:00) 67 (JUL 21:) 97 (JUL 22 12:00) SpO2 L 93 (JUL 22 12:00) L 93 (JUL 21:) 98 (JUL 21 12:45) Exam: Gen: Alert, more confused HEENT: sclera [place] NECK: Supple, no [...] (OCT 07) 230 (OCT 06) Na 141 (JUL 16) 143 (JUL 13) 142 (JUL 07) 140 (OCT 06) K 3.7 (OCT 16) 4.1 (OCT 13) 3.8 (OCT 07) 4.2 (OCT 06) Cl 107 (JUL 16) 106 (OCT 13) 104 (JUL 07) 104 (JUL 06) CO2 29 (OCT 16) 30 (JUL 13) 31 (OCT 07) 31 (OCT 06) BUN H 27 (OCT 16) H 23 (JUL 13) 14 (JUL 07) 14 (OCT 06) Cr 1.00 (JUL 16) 1.00 (JUL 13) 0.90 (JUL 07) 0.90 (OCT 06) Glu R H 134 (OCT 16) H 213 (OCT 13) H 202 (JUL 07) H 248 (OCT 06) Ca 9.1 (JUL 16) 9.4 (JUL 13) 9.0 (JUL 07) 9.0 (JUL 06) PT 9.9 (JUL 04) 10.1 (JUL 03) INR 0.9 (JUL 04) 0.9 (JUL 03) PTT 28.0 (JUL 03) AST 15 (OCT 16) 18 (JUL 07) 16 (JUL 04) [...] low positive chromium UM discussed with DC Bookkeeping Clerk With increasing confusion with check a UA Dsicusswed with Neurology - will check a RPR documented in this encounter Plan of Treatment Not on file documented as of this encounter Visit Diagnoses Not on filedocumented in this encounter
--- OUTSIDE RECORDS SUMMARY | 2025-09-06 08:14 | XMS_ITS | Encounter Summary ---
Author Organization [employer] ([place], [place], [place], [place], [place]) Address [address] [place] [address] Care Team Providers Care Major Case Detective Name Role Phone Unavailable Primary Care Provider Unavailabl e Encounter Details Date Type Department Care Team (Late st Contact Info) Description 07/23/2019 Transcribed Document [facility] Family Medicine [facility] [place] [address] ProviderChano MD [address] [place] [phone] Social History Tobacco Use Types Packs/Day Years [...] epithelial cells. Urine culture was positive for 10???301312 CFU/mL. CT of the L-spine was negative. [...] or confusion. ROS and hx discussed with [id number], has had ceofusion and fever last 2 [...] fluticasone nasal (Flonase) - 1 Puff, Nasal, [place], Daily, Routine miconazole topical (Desenex AF 2% [...] (JUL 23 10:28) Resp Rate 18 (JUL 23 10:28) 16 (JUL 23 05:56) 18 (JUL 23 [...] Micro: Rad: Radiology Results (Last 48 hours) [id number] -- 07/11/2019 09:51 MRI Brain WO (07/22/2019 [...] low positive chromium UM discussed with DC Bakery Assistant With increasing confusion with check a UA RPR negative documented in this encounter Plan of Treatment Not on file documented as of this encounter Visit Diagnoses Not on filedocumented in this encounter
[2025-09-06 08:20] LABS: Hematocrit 29.7 % (37.0-47.0); Hemoglobin 8.9 g/dL (12.2-16.2)
--- NOTE | 2025-09-06 08:55 | PC.NURSE ---
0814 H&H obtained via venipuncture to R AC x1 stick with butterfly needle. Patient tolerated well.
--- NOTE | 2025-09-06 08:58 | PC.NURSE ---
0814 Spoke with Faustina at [facility] to inform patient being transported back to facility via [facility] bus due to cancellation of blood transfusion today based on Hgb 8.9, Hct 29.7. Informed patient received only venipuncture lab while at [facility] this am. Patient's present on arrival and discharge/ patient stable.
== END 2025-09-06 23:59 | disposition home or self-care (01) ==
LOC: INF 08:05
PROVIDERS: PCP Internal Medicine Adolescent Medicine; Visit Provider Internal Medicine Medical Oncology
DX: D64.9 Anemia, unspecified (principal)
CPT/HCPCS: 36415; 85014; 85018